=== PATIENT | female | born 1940 | race Caucasian/White ===

== ENCOUNTER 2017-04-12 12:07 | Inpatient (IN) | payer OTHER ==
[~2017-04-12] VITALS: Ht 165.1 cm; Wt 110.0 kg
[~2017-04-12 12:07] MED LIST: ALBUAER2 INH; ALEN70TA2 PO; AMT25 PO; BND25 PO; CHOL100010 PO; HYDR1TAB2 PO; KETO0.024 OP; LEVO50TA60 PO; SERT1TAB68 PO; WARF5TAB7 PO
--- NOTE | 2017-04-12 12:29 | EMERGENCY ROOM VISIT NOTE ---
History Report prepared by Jasmine: Smith Polanco Under the Supervision of: Dr. Dipesh Weeks M.D. First contact with patient: 12:19 Chief Complaint: FALL Stated Complaint: FALL - KNEE AND ELBOW PAIN History of Present Illness The patient is a 77 year old female who presents to the Emergency Room with complaints of a sudden mechanical fall that occurred prior to arrival today. She states that [facility], and tripped over a rug going into the front door. Per the patient's , the patient fell forward and sideways onto her left side. Ever since the fall, the patient says that she has had left leg pain as well as some abrasions on her left arm. Her left elbow has some bruising as well. The patient denies hitting her head or back on the fall. She also denies any loss of consciousness or headaches. She adds that she has had chronic joint pain for years, and gets regular cortisone shots in both hips , knees, and shoulders. The patient also notes that she has had chronic back pain for years. She says that she is on Coumadin for blood clots, which started 25 years ago. The patient says she recently had her INR checked, but is unsure of the result. She states that she has had 3 or 4 blood clots since then. Source of History: patient, spouse/significant other Onset: Prior to arrival today Position: other (global - fall) Quality: other (mechanical) Timing: other (sudden) Associated Symptoms: No LOC, No headache Note: Associated symptoms: Left leg pain with bruising. Left arm abrasions. Denies hitting head or back on fall. Review of Systems See HPI for pertinent positives and negatives. A total of ten systems were reviewed and were otherwise negative. Past Medical & Surgical Medical Problems: (1) Asthma (2) Benign hypertension (3) Bronchitis (4) Hematoma (5) Hypothyroidism (6) Low back pain (7) Pulmonary embolism Family History FH: cancer FATHER Social History Smoking Status: Never Smoker Marital Status: Housing Status: lives with family Occupation Status: retired Current/Historical Medications Scheduled Albuterol Hfa (Ventolin Hfa), 2 PUFFS INH QID Alendronate Sodium (Fosamax), 1 TAB PO WK Amitriptyline Hcl (Elavil), 25 MG PO HS Atenolol (Tenormin), 50 MG PO HS Calcium Carbonate (Tums), 1-2 TABLETS PO PRN Cholecalciferol (Vitamin D3), 1,000 UNITS PO DAILY Fluticasone Prop/Salmeterol (Advair Diskus 250/50 Mcg *), 1 PUFF INH BID Fluticasone Prop/Salmeterol (Advair Diskus 250/50 60 Dose), 1 PUFF INH BID Home O2 Therapy (Oxygen), 2 LITERS NA UD Levothyroxine Sodium (Synthroid), 25 MCG PO DAILY Sertraline Hcl (Zoloft), 100 MG PO DAILY Simvastatin (Zocor), 20 MG PO QPM Sumatriptan Succinate (Imitrex), 100 MG PO PRN Warfarin Sod (Jantoven), 5 MG PO 6XWK Warfarin Sod (Coumadin), 2.5 MG PO DAILY Scheduled PRN Ketotifen Fumarate (Ophth) (Alaway), 1 DROPS OP BID PRN for PRN Allergies Coded Allergies: Aspirin (Verified Allergy, Unknown, UNKNOWN, 04/12/17) Sulfa Antibiotics (Verified Allergy, Unknown, Unknown, 04/12/17) Physical Exam Vital Signs Date Time Temp Pulse Resp B/P (MAP) Pulse Ox O2 Delivery O2 Flow Rate FiO2 04/12/17 16:10 69 18 133/74 97 Room Air 04/12/17 14:29 80 18 98 Room Air 04/12/17 12:10 36.7 106 20 136/82 95 Room Air Physical Exam GENERAL: Awake, alert, well-appearing, in no distress HENT: Normocephalic, atraumatic. Oropharynx unremarkable. EYES: Normal conjunctiva. Sclera non-icteric. NECK: Supple. No nuchal rigidity. FROM. No JVD. RESPIRATORY: Clear to auscultation. CARDIAC: Regular rate, normal rhythm. Extremities warm and well perfused. Pulses equal. ABDOMEN: Soft, non-distended. No tenderness to palpation. No rebound or guarding. No masses. RECTAL: Deferred. MUSCULOSKELETAL: Skin tear to the dorsal aspect of left elbow, otherwise passive /active range of motion intact. Chest examination reveals no tenderness. Lumbar ttp which patient says is unchanged from chronic joint pain. There is no CVA tenderness to palpation. LOWER EXTREMITIES: Left lower extremity has 3+ edema with 25 cm hematoma with tenderness to palpation, but underlying compartments are soft. Distal pulses and motor sensory intact. No pain with passive stretch distally. Range of motion of knee intact, hip range of motion intact, including adduction and abduction. NEURO: Normal sensorium. No sensory or motor deficits noted. SKIN: No rash or jaundice noted. Medical Decision & Procedures ER Provider Diagnostic Interpretation: X-ray: Per my interpretation, radiologist review. LEFT TIBIA AND FIBULA 2 VIEWS CLINICAL HISTORY: Fall with left leg pain. FINDINGS: AP and lateral views of the left tibia and fibula are obtained. No prior studies are available for comparison at the time of dictation. The skeletal structures are osteopenic. No left tibial or fibular fracture is identified. Arthritic change with large osteophytes is seen in the knee. The ankle joint is grossly preserved. Soft tissue edema is present throughout the left lower extremity. Small phleboliths are noted and there is atherosclerotic calcification of the regional arteries. IMPRESSION: Soft tissue swelling with no radiographic evidence of left tibial or fibular fracture. Electronically signed by: Vladislav Curiel M.D. 04/12/2017 1:48 PM Dictated Date/Time: 04/12/2017 1:46 PM LEFT ELBOW 3 VIEWS CLINICAL HISTORY: Fall with left elbow pain and swelling. FINDINGS: 3 views of left elbow are obtained. No prior studies are available for comparison at the time of dictation. The skeletal structures are osteopenic. No distracted fracture is identified. The joint spaces appear maintained. A small joint effusion is identified. The overlying soft tissues are within normal limits. There is atherosclerotic calcification of the regional arteries. IMPRESSION: 1. Osteopenia with no distracted fracture identified. 2. A joint effusion is identified and suggests occult fracture, statistically of the radial head in this age group. Electronically signed by: Vladislav Curiel M.D. 04/12/2017 1:46 PM Dictated Date/Time: 04/12/2017 1:44 PM LEFT KNEE 3 VIEWS HISTORY: 77 years-old Female acute pain and swelling of the left knee status post fall COMPARISON: Left tibia and fibula radiographs of same day TECHNIQUE: Portable AP, internal oblique and crosstable lateral views of the left knee FINDINGS: Severe medial degenerative changes are present with moderate patellofemoral and mild lateral compartment osteoarthritis. The bones are mildly demineralized. There is no acute fracture or dislocation identified. There is chondrocalcinosis about the knee. Small joint effusion is noted. Vascular calcifications are seen. IMPRESSION: 1. Small joint effusion without acute fracture or dislocation. 2. Tricompartmental osteoarthritis, most pronounced within the medial compartment where there is severe disease. 3. Peripheral vascular disease. The above report was generated using voice recognition software. It may contain grammatical, syntax or spelling errors. Electronically signed by: Cesario Terrell M.D. 04/12/2017 5:42 PM Dictated Date/Time: 04/12/2017 5:40 PM Laboratory Results 04/12/17 13:00 Red Blood Count 3.25, Mean Corpuscular Volume 104.9, Mean Corpuscular Hemoglobin 33.5, Mean Corpuscular Hemoglobin Concent 32.0, Mean Platelet Volume 10.0, Neutrophils (%) (Auto) 66.9, Lymphocytes (%) (Auto) 26.5, Monocytes (%) ( Auto) 4.3, Eosinophils (%) (Auto) 1.9, Basophils (%) (Auto) 0.3, Neutrophils # ( Auto) 4.49, Lymphocytes # (Auto) 1.78, Monocytes # (Auto) 0.29, Eosinophils # ( Auto) 0.13, Basophils # (Auto) 0.02 04/12/17 13:00 Test 04/12/17 13:00 04/12/17 14:09 White Blood Count 6.72 K/uL (4.8-10.8) Red Blood Count 3.25 M/uL (4.2-5.4) Hemoglobin 10.9 g/dL (12.0-16.0) Hematocrit 34.1 % (37-47) Mean Corpuscular Volume 104.9 fL (80-100) Mean Corpuscular Hemoglobin 33.5 pg (25-34) Mean Corpuscular Hemoglobin Concent 32.0 g/dl (32-36) Platelet Count 257 K/uL (130-400) Mean Platelet Volume 10.0 fL (7.4-10.4) Neutrophils (%) (Auto) 66.9 % Lymphocytes (%) (Auto) 26.5 % Monocytes (%) (Auto) 4.3 % Eosinophils (%) (Auto) 1.9 % Basophils (%) (Auto) 0.3 % Neutrophils # (Auto) 4.49 K/uL (1.4-6.5) Lymphocytes # (Auto) 1.78 K/uL (1.2-3.4) Monocytes # (Auto) 0.29 K/uL (0.11-0.59) Eosinophils # (Auto) 0.13 K/uL (0-0.5) Basophils # (Auto) 0.02 K/uL (0-0.2) RDW Standard Deviation 50.4 fL (36.4-46.3) RDW Coefficient of Variation 13.1 % (11.5-14.5) Immature Granulocyte % (Auto) 0.1 % Immature Granulocyte # (Auto) 0.01 K/uL (0.00-0.02) Anion Gap 7.0 mmol/L (3-11) Estimated GFR () 56.9 Estimated GFR (Non- 49.1 BUN/Creatinine Ratio 16.2 (10-20) Calcium Level 8.7 mg/dl (8.5-10.1) Prothrombin Time 32.6 SECONDS (9.0-12.0) Prothromb Time International Ratio 2.9 (0.9-1.1) Laboratory results reviewed by me Medications Administered Medications (Trade) Dose Ordered Sig/Satya Route Start Time Stop Time Status Last Admin Dose Admin Acetaminophen (Tylenol Tab) 1,000 mg NOW STAT PO 04/12/17 12:32 04/12/17 12:33 DC 04/12/17 12:50 1,000 MG Oxycodone HCl (Roxicodone Immediate Rel Tab) 5 mg NOW STAT PO 04/12/17 14:32 04/12/17 14:34 DC 04/12/17 14:47 5 MG Phytonadione (Mephyton Tab) 5 mg NOW STAT PO 04/12/17 16:12 04/12/17 16:13 DC 04/12/17 16:23 5 MG ED Course 1220: The patient was evaluated in room A12B. A complete history and physical exam was performed. 1232: Ordered Tylenol Tab 1000 mg PO. 1432: Ordered Roxicodone Immediate Rel Tab 5 mg PO. 1548: I discussed the patient with Dr. Daniel Sanchez [facility]. 1600: I discussed the patient with Dr. Thompson [facility]. 1612: Ordered Mephyton Tab 5 mg PO. 1636: Upon reexamination, the patient was resting. I discussed the test results and treatment plan with her. She expressed understanding and agreement with the treatment plan. The patient will be evaluated for further management. 1651: I discussed the patient with Fawn Neal - she will evaluate the patient for further treatment. Medical Decision I reviewed the patient's past medical history, medications, and the nursing notes as described above. Differential diagnoses: soft tissue hematoma, fracture, dislocation, musculoskeletal strain. 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 On arrival the patient is uncomfortable but in NAD. INR 2.9. During observation patient's left lower leg hematoma, which is predominantly located on proximal lateral calf showed expansion albeit still with soft compartment, strong pulses distally, motor sensory intact and no pain with passive stretch. Nevertheless in the setting of patient's INR concern for risk of compartment syndrome and possibility of need for hematoma release if continued to worsen. Thus, patient given 5mg po vit. K. and plan for admission. I d/w ortho, initially with Dr. Sanchez (since patient's is followed by their group) however they are not on-call for inpatient consultation today. Thus, I d/w Dr. Thompson who evaluated patient at bedside and agreed that no compartment syndrome at this time. Recs for compartment checks during observation. Otherwise, Xray of elbow with small effusion with ?radial head fx. Posterior splint/sling ordered. Xray of Tib-fib with no clear fx but when reviewed by Dr. Thompson, irregularity suspicious for tib-plateau which was also seen on knee films. Knee immoblized by ortho with bulky malone dressing. Case d/w medicine team who will admit patient for further management. Head Trauma GCS Score: 15 Medication Reconcilliation Current Medication List: was personally reviewed by me Blood Pressure Screening Patient's blood pressure: Elevated blood pressure Blood pressure disposition: Elevated BP felt to be situational Consults Time Called: [id number] Consulting Physician: Dr. Daniel [facility] Returned Call: 1546 I discussed the patient with Dr. Daniel [facility]. Additional Consults: Time Called: 1551 Consulted Physician: Dr. Bader [facility] Returned Call: 1600 Additional Comments: I discussed the patient with Dr. Thompson [facility]. Time Called: 1648 Consulted Physician: Fawn Neal Returned Call: 1651 Additional Comments: I discussed the patient with Fawn Neal - she will evaluate the patient for further treatment. Impression Primary Impression: Hematoma Scribe Attestation The scribe's documentation has been prepared under my direction and personally reviewed by me in its entirety. I confirm that the note above accurately reflects all work, treatment, procedures, and medical decision making performed by me. Departure Information Dispostion Being Evaluated By Hospitalist Referrals Mina Garza M.D. (PCP) Patient Instructions My [facility]
[2017-04-12] MEDS ORDERED: ACETAMINOPHEN 500 MG TAB PO STA (12:32)
[2017-04-12] MEDS ORDERED: ADVIN25/60 INH (12:47)
[2017-04-12] MEDS ORDERED: AMIT25TA9 PO (12:47)
[2017-04-12] MEDS ORDERED: LEVO25TA PO (12:47)
[2017-04-12] MEDS ORDERED: VTMD1000 PO (12:47)
[2017-04-12] MEDS ORDERED: VNTHFA/IN INH (12:47)
[2017-04-12] MEDS ORDERED: CMD5 PO (12:51)
[2017-04-12 13:15] LABS: BASO % 0.3 %; BASO ABS # 0.02 K/uL (0-0.2); COMPLETE YES; EOS % 1.9 %; HEMATOCRIT 34.1 % (37-47); IG% 0.1 %; LYMPH % 26.5 %; LYMPH ABS # 1.78 K/uL (1.2-3.4); MEAN CELL VOLUME 104.9 fL (80-100); MEAN CORPUSCULAR HEMOGLOBIN 33.5 pg (25-34); MONO % 4.3 %; NEUT % 66.9 %; PLATELET COUNT 257 K/uL (130-400); RED BLOOD COUNT 3.25 M/uL (4.2-5.4); WHITE BLOOD COUNT 6.72 K/uL (4.8-10.8)
[2017-04-12] MEDS ORDERED: SUMA100T16 PO (13:32)
[2017-04-12 13:41] LABS: POTASSIUM 4.2 mmol/L (3.5-5.1); SODIUM 141 mmol/L (136-145)
[2017-04-12 13:42] LABS: BLOOD UREA NITROGEN 18 mg/dl (7-18); BUN/CREATININE RATIO 16.2 (10-20); CALCIUM 8.7 mg/dl (8.5-10.1); CARBON DIOXIDE 30 mmol/L (21-32); CHLORIDE 104 mmol/L (98-107); GLUCOSE 103 mg/dl (70-99)
--- NOTE | 2017-04-12 13:47 | DIAGNOSTIC IMAGING REPORT ---
LEFT ELBOW 3 VIEWS CLINICAL HISTORY: Fall with left elbow pain and swelling. FINDINGS: 3 views of left elbow are obtained. No prior studies are available for comparison at the time of dictation. The skeletal structures are osteopenic. No distracted fracture is identified. The joint spaces appear maintained. A small joint effusion is identified. The overlying soft tissues are within normal limits. There is atherosclerotic calcification of the regional arteries. IMPRESSION: 1. Osteopenia with no distracted fracture identified. 2. A joint effusion is identified and suggests occult fracture, statistically of the radial head in this age group. Electronically signed by: Vladislav Curiel M.D. 04/12/2017 1:46 PM Dictated Date/Time: 04/12/2017 1:44 PM
--- NOTE | 2017-04-12 13:49 | DIAGNOSTIC IMAGING REPORT ---
LEFT TIBIA AND FIBULA 2 VIEWS CLINICAL HISTORY: Fall with left leg pain. FINDINGS: AP and lateral views of the left tibia and fibula are obtained. No prior studies are available for comparison at the time of dictation. The skeletal structures are osteopenic. No left tibial or fibular fracture is identified. Arthritic change with large osteophytes is seen in the knee. The ankle joint is grossly preserved. Soft tissue edema is present throughout the left lower extremity. Small phleboliths are noted and there is atherosclerotic calcification of the regional arteries. IMPRESSION: Soft tissue swelling with no radiographic evidence of left tibial or fibular fracture. Electronically signed by: Vladislav Curiel M.D. 04/12/2017 1:48 PM Dictated Date/Time: 04/12/2017 1:46 PM
[2017-04-12] MEDS ORDERED: OXYCODONE HCL IR 5 MG TAB (IMMEDIATE RELEASE) PO STA (14:32)
[2017-04-12 14:39] LABS: INR 2.9 (0.9-1.1); PROTHROMBIN TIME (PATIENT) 32.6 SECONDS (9.0-12.0)
[2017-04-12] MEDS ORDERED: SIMV20TA2 PO (15:39)
[2017-04-12] MEDS ORDERED: ADVIN25050 INH (15:39)
[2017-04-12] MEDS ORDERED: PHYTONADIONE 5 MG TAB PO STA (16:12)
[2017-04-12] MEDS ORDERED: CALC500C3 PO (17:19)
[2017-04-12] MEDS ORDERED: OXGN (17:19)
--- NOTE | 2017-04-12 17:43 | DIAGNOSTIC IMAGING REPORT ---
LEFT KNEE 3 VIEWS HISTORY: 77 years-old Female acute pain and swelling of the left knee status post fall COMPARISON: Left tibia and fibula radiographs of same day TECHNIQUE: Portable AP, internal oblique and crosstable lateral views of the left knee FINDINGS: Severe medial degenerative changes are present with moderate patellofemoral and mild lateral compartment osteoarthritis. The bones are mildly demineralized. There is no acute fracture or dislocation identified. There is chondrocalcinosis about the knee. Small joint effusion is noted. Vascular calcifications are seen. IMPRESSION: 1. Small joint effusion without acute fracture or dislocation. 2. Tricompartmental osteoarthritis, most pronounced within the medial compartment where there is severe disease. 3. Peripheral vascular disease. The above report was generated using voice recognition software. It may contain grammatical, syntax or spelling errors. Electronically signed by: Cesario Terrell M.D. 04/12/2017 5:42 PM Dictated Date/Time: 04/12/2017 5:40 PM
--- NOTE | 2017-04-12 17:50 | History and Physical ---
History & Physical Date & Time of Service: Apr 12, 2017 at 17:37 Chief Complaint: Fall - Knee And Elbow Pain Primary Care Physician: Giorgio Salas D.O. History of Present Illness Patient is a 77yo F with a 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 Patient was entering a restaurant when she tripped over a rug, fell forward and landed on her left side. Denies hitting her head or any LOC. Was brought to the ED by her , who witnessed the event. Patient with pain and bruising of the L lower leg, around knee and L elbow. Patient is on long-term anticoagulation and was found to have a supratherapeutic INR of 2.9 in the ED. Was given Vitamin K by mouth. Denies confusion, CP, SOB, abdominal pain, N/V, numbness or tingling in LE. Past Medical/Surgical History Medical Problems: (1) Asthma Status: Chronic (2) Benign hypertension Status: Chronic (3) Bronchitis Status: Chronic (4) Hypothyroidism Status: Chronic (5) Low back pain Status: Chronic (6) Pulmonary embolism Status: Chronic Family History Diabetes mellitus MOTHER FH: cancer FATHER FH: diabetes mellitus Social History Smoking Status: Never Smoker Marital Status: Immunizations History of Influenza Vaccine: No Influenza Vaccine Date: Jun 03, 2009 History of Tetanus Vaccine?: unknown History of Pneumococcal: Yes Pneumococcal Date: May 17, 2005 History of Hepatitis B Vaccine: No Multi-Drug Resistant Organisms History of MDRO: No Allergies Coded Allergies: Aspirin (Verified Allergy, Unknown, UNKNOWN, 04/12/17) Sulfa Drugs (Verified Allergy, Unknown, UNKNOWN, 04/12/17) Home Medications Scheduled Albuterol Hfa (Ventolin Hfa), 2 PUFFS INH QID Alendronate Sodium (Fosamax), 1 TAB PO WK Amitriptyline Hcl (Elavil), 25 MG PO HS Atenolol (Tenormin), 50 MG PO HS Calcium Carbonate (Tums), 1-2 TABLETS PO PRN Cholecalciferol (Vitamin D3), 1,000 UNITS PO DAILY Fluticasone Prop/Salmeterol (Advair Diskus 250/50 Mcg *), 1 PUFF INH BID Fluticasone Prop/Salmeterol (Advair Diskus 250/50 60 Dose), 1 PUFF INH BID Home O2 Therapy (Oxygen), 2 LITERS NA UD Levothyroxine Sodium (Synthroid), 25 MCG PO DAILY Sertraline Hcl (Zoloft), 100 MG PO DAILY Simvastatin (Zocor), 20 MG PO QPM Sumatriptan Succinate (Imitrex), 100 MG PO PRN Warfarin Sod (Jantoven), 5 MG PO 6XWK Warfarin Sod (Coumadin), 2.5 MG PO DAILY Scheduled PRN Ketotifen Fumarate (Ophth) (Alaway), 1 DROPS OP BID PRN for PRN Review of Systems Ten systems reviewed and negative except as noted in the HPI. Constitutional: No fever Eyes: No worsening of vision ENT: No hearing loss Respiratory: No shortness of breath, No dyspnea on exertion, No dyspnea at rest Cardiovascular: No chest pain Abdomen: No pain Musculoskeletal: + swelling (swelling, injury to left knee) Genitourinary - Female: No dysuria Neurologic: No paralysis Psychiatric: No substance abuse Endocrine: No fatigue Physical Exam Vital Signs Date Time Temp Pulse Resp B/P (MAP) Pulse Ox O2 Delivery O2 Flow Rate FiO2 04/12/17 16:10 69 18 133/74 97 Room Air 04/12/17 14:29 80 18 98 Room Air 04/12/17 12:10 36.7 106 20 136/82 95 Room Air General Appearance: no apparent distress, + obese Head: normocephalic, atraumatic Eyes: normal inspection, EOMI, sclerae normal ENT: normal ENT inspection, hearing grossly normal, pharynx normal Neck: supple, no JVD, trachea midline Respiratory/Chest: chest non-tender, lungs clear, normal breath sounds, no respiratory distress, no accessory muscle use Cardiovascular: regular rate, rhythm, no edema, no JVD Abdomen/GI: non tender, soft Back: normal inspection, no muscle spasm Extremities/Musculoskelatal: normal capillary refill, no pedal edema, + pertinent finding (orthopedics placed left leg in splint) Neurologic/Psych: alert, oriented x 3 Diagnostics Laboratory Results Results Past 24 Hours Test 04/12/17 13:00 04/12/17 14:09 Range/Units White Blood Count 6.72 4.8-10.8 K/uL Red Blood Count 3.25 4.2-5.4 M/uL Hemoglobin 10.9 12.0-16.0 g/dL Hematocrit 34.1 37-47 % Mean Corpuscular Volume 104.9 80-100 fL Mean Corpuscular Hemoglobin 33.5 25-34 pg Mean Corpuscular Hemoglobin Concent 32.0 32-36 g/dl Platelet Count 257 130-400 K/uL Mean Platelet Volume 10.0 7.4-10.4 fL Neutrophils (%) (Auto) 66.9 % Lymphocytes (%) (Auto) 26.5 % Monocytes (%) (Auto) 4.3 % Eosinophils (%) (Auto) 1.9 % Basophils (%) (Auto) 0.3 % Neutrophils # (Auto) 4.49 1.4-6.5 K/uL Lymphocytes # (Auto) 1.78 1.2-3.4 K/uL Monocytes # (Auto) 0.29 0.11-0.59 K/uL Eosinophils # (Auto) 0.13 0-0.5 K/uL Basophils # (Auto) 0.02 0-0.2 K/uL RDW Standard Deviation 50.4 36.4-46.3 fL RDW Coefficient of Variation 13.1 11.5-14.5 % Immature Granulocyte % (Auto) 0.1 % Immature Granulocyte # (Auto) 0.01 0.00-0.02 K/uL Sodium Level 141 136-145 mmol/L Potassium Level 4.2 3.5-5.1 mmol/L Chloride Level 104 98-107 mmol/L Carbon Dioxide Level 30 21-32 mmol/L Anion Gap 7.0 3-11 mmol/L Blood Urea Nitrogen 18 7-18 mg/dl Creatinine 1.10 0.60-1.20 mg/dl Estimated GFR () 56.9 Estimated GFR (Non- 49.1 BUN/Creatinine Ratio 16.2 10-20 Random Glucose 103 70-99 mg/dl Calcium Level 8.7 8.5-10.1 mg/dl Prothrombin Time 32.6 9.0-12.0 SECONDS Prothromb Time International Ratio 2.9 0.9-1.1 Diagnostic Radiology Tibia fibula XR: IMPRESSION: Soft tissue swelling with no radiographic evidence of left tibial or fibular fracture. L Elbow XR: IMPRESSION: 1. Osteopenia with no distracted fracture identified. 2. A joint effusion is identified and suggests occult fracture, statistically of the radial head in this age group. Impression Assessment and Plan Patient is a 77yo F with a 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 L lower extremity hematoma: -S/p mechanical fall -Tibia fibula XR: Soft tissue swelling with no radiographic evidence of left tibial or fibular fracture -Ortho following; recs appreciated -Observation for compression syndrome Attending Physician Addendum Dr. Alba Patient is s/p mechanical fall. Imaging studies: Tibia fibula XR: Soft tissue swelling with no radiographic evidence of left tibial or fibular fracture. L Elbow XR: joint effusion is identified and suggests occult fracture the radial head in this age group. When examined at bedside with LORETTA Sanchez, orthopedic service was present placing left splint over knee. There is concern for hematoma given history of coumadin use and patient had been given vitamin K in the ED. Hold warfarin for now. Hospitalist medical team will place patient on observation to monitoring of injury and whether patient will develop excessive bleeding into knee. Continue to trend H/H, INR. Pain control medications ordered and antiemetics if needed. Unless otherwise contraindicated will continue patient on home medications of: atenolol, amitriptyline, sertraline, levothyroxine, simvastatin. Continue to follow with orthopedic consult Level of Care Med/Surg Resuscitation Status FULL RESUSCITATION VTE Prophylaxis VTE Risk Assessment Done? Y/N: Yes Risk Level: High Given or contraindicated: Warfarin (Coumadin)
[2017-04-12] MEDS ORDERED: IV FLUIDS COMPLETED PRN (18:00)
[2017-04-12] MEDS ORDERED: ONDANSETRON INJ 2 MG/ML 2 ML VIAL IV PRN (18:00)
[2017-04-12] MEDS ORDERED: ATEN50TA8 PO (18:38)
--- NOTE | 2017-04-12 19:38 | Medical Consult ---
Consultation Note Date of Service Apr 12, 2017. Consultation Note CHIEF COMPLAINT: Left leg swelling. HISTORY OF PRESENT ILLNESS: Mikala is a pleasant 77-year-old female, who fell earlier today at [employer] when she tripped over a rug landing on her left side. She denies any loss of consciousness. She is brought to the emergency room by her who had witnessed the event. She started having pain improved using of the left lower leg and around her knee. She also had a skin tear of the left elbow. 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 She denies any numbness or tingling. She was able to place some weight on her left lower leg. I was consult did due to the large hematoma. She denies any other injuries. Past medical history: Asthma, hypothyroidism, hypertension, low back pain, DVT/ PE, bronchitis. past surgical history: Hysterectomy, cholecystectomy, right trochanteric bursa excision. MEDICATIONS: Albuterol Hfa (Ventolin Hfa), 2 PUFFS INH QID Alendronate Sodium (Fosamax), 1 TAB PO WK Amitriptyline Hcl (Elavil), 25 MG PO HS Atenolol (Tenormin), 50 MG PO HS Calcium Carbonate (Tums), 1-2 TABLETS PO PRN Cholecalciferol (Vitamin D3), 1,000 UNITS PO DAILY Fluticasone Prop/Salmeterol (Advair Diskus 250/50 Mcg *), 1 PUFF INH BID Fluticasone Prop/Salmeterol (Advair Diskus 250/50 60 Dose), 1 PUFF INH BID Home O2 Therapy (Oxygen), 2 LITERS NA UD Levothyroxine Sodium (Synthroid), 25 MCG PO DAILY Sertraline Hcl (Zoloft), 100 MG PO DAILY Simvastatin (Zocor), 20 MG PO QPM Sumatriptan Succinate (Imitrex), 100 MG PO PRN Warfarin Sod (Jantoven), 5 MG PO 6XWK Warfarin Sod (Coumadin), 2.5 MG PO DAILY Scheduled PRN Ketotifen Fumarate (Ophth) (Alaway), 1 DROPS OP BID PRN for PRN. ALLERGIES: Aspirin and sulfa drugs. FAMILY HISTORY: Mother with diabetes, father with cancer and diabetes. SOCIAL HISTORY: Denies smoking and admits to rare alcohol use. She is and lives with her . REVIEW OF SYSTEMS: He was feeling in her usual state of health. A 10-point review of systems is noted in the shared ER intake forms. PHYSICAL EXAM: The patient is in no acute distress. She is resting comfortably on her hospital cart. Temperature 36.7, pulse 69, respiratory rate 18, blood pressure 133/74, pulse ox 97% on room air. Focusing on her left lower extremity, she has 2+ DP pulse, sensation light touch is intact distally, her strength in her gastrocsoleus, tibialis anterior, EHL is 5/5. She does have significant swelling about the knee and bruising down to the mid calf. Her calf is soft and nontender. She does have some tenderness palpation about the medial aspect of her knee. She is able to actively perform range of motion 0-110 . RADIOGRAPHS: AP and lateral of the left tib-fib, was concerning for a fracture about the medial tibial plateau that was nondisplaced, otherwise there is just significant soft tissue swelling from the knee to the mid shaft. AP, lateral, and one oblique view of the knee was performed and did show a very small nondisplaced medial rim fracture of the tibial plateau. IMPRESSION: 1) Left knee medial tibial plateau rim fracture, nondisplaced, initial visit. 2) left leg swelling/large hematoma secondarily to being anticoagulated. PLAN: After a lengthy discussion with the patient today regarding my above clinical findings, as well as reviewing her radiographs, she will be treated conservatively and was placed in a bulky Grimes dressing and knee immobilizer. She will be allowed to be weightbearing as tolerated. She will ice and elevate. We will continue to monitor her hematoma. She will have neurovascular checks every 2 hours. She will be admitted to the medicine service for observation. The patient understood all my instructions and explanation; all their questions were satisfactorily addressed.
[2017-04-12 19:45] VITALS: Ht 165.1 cm; Wt 110.0 kg
[2017-04-12 19:48] VITALS: BP 138/69; PULSE 95; TEMP 36.7; O2SAT 97
[2017-04-12 20:15] VITALS: BP 132/70; PULSE 97; TEMP 36.6; O2SAT 96
--- NOTE | 2017-04-12 21:26 | DIAGNOSTIC IMAGING REPORT ---
HEAD WITHOUT CONTRAST (CT) CLINICAL HISTORY: 77 years-old Female with RECENT FALL /HEAD INJURY /DIZZY SPELL . TECHNIQUE: Multiple axial CT images of the head were obtained without contrast. A dose lowering technique was utilized adhering to the principles of ALARA. CT DOSE: 655.73 mGy.cm COMPARISON: CT head 07/05/2013. FINDINGS: No acute intracranial hemorrhage, midline shift, mass, large territorial ischemia or abnormal extra-axial collection. There is mild cerebral atrophy. Patchy areas of white matter low-attenuation are seen within the periventricular regions suggesting chronic microvascular ischemic changes. Vascular calcifications are seen at the skull base. The calvarium is intact. Small mastoid effusions are present bilaterally. Bilateral lou bullosa noted. Soft tissues are unremarkable. Prior bilateral cataract repair. IMPRESSION: 1. No acute intracranial abnormality. 2. Atrophy with chronic microvascular ischemic changes. 3. Small bilateral mastoid effusions. The above report was generated using voice recognition software. It may contain grammatical, syntax or spelling errors. Electronically signed by: Cesario Terrell M.D. 04/12/2017 9:24 PM Dictated Date/Time: 04/12/2017 9:16 PM
[2017-04-12] MEDS: FLUTICASONE/SALMETEROL 250/50 (ADVAIR) 14 PUFF/1 INHALER INH SCH (22:03)
[2017-04-12] MEDS: AMITRIPTYLINE HCL 25 MG TAB PO SCH (22:04)
[2017-04-12] MEDS: ALBUTEROL HFA 8 GM INHALER INH SCH (22:04)
[2017-04-12] MEDS: SIMVASTATIN 20 MG TAB PO SCH (22:06)
[2017-04-12 23:05] VITALS: BP 120/67; PULSE 79; TEMP 36.9; O2SAT 93
[2017-04-12] MEDS: HYDROmorphone INJ 0.5 MG/0.5 ML SYR IV PRN (23:27)
[2017-04-13] VITALS (9 sets, daily range): BP systolic 108–147; BP diastolic 66–84; PULSE 74–98; TEMP 36.7–37.3; O2SAT 93–97
[2017-04-13] MEDS: LEVOTHYROXINE 25 MCG TAB PO SCH (05:32)
[2017-04-13 06:53] LABS: BASO % 0.3 %; BASO ABS # 0.02 K/uL (0-0.2); EOS % 1.2 %; HEMATOCRIT 25.5 % (37-47); IG% 0.1 %; LYMPH % 30.7 %; LYMPH ABS # 2.08 K/uL (1.2-3.4); MEAN CELL VOLUME 102.8 fL (80-100); MEAN CORPUSCULAR HEMOGLOBIN 34.3 pg (25-34); MEAN CORPUSCULAR HGB CONC 33.3 g/dl (32-36); MEAN PLATELET VOLUME 10.2 fL (7.4-10.4); MONO % 6.6 %; NEUT % 61.1 %; PLATELET COUNT 212 K/uL (130-400); RED BLOOD COUNT 2.48 M/uL (4.2-5.4); WHITE BLOOD COUNT 6.78 K/uL (4.8-10.8)
[2017-04-13 07:29] LABS: INR 1.8 (0.9-1.1); PARTIAL THROMBOPLASTIN RATIO 1.1; PROTHROMBIN TIME (PATIENT) 20.1 SECONDS (9.0-12.0)
[2017-04-13 07:30] LABS: BUN/CREATININE RATIO 18.7 (10-20); CALCIUM 8.3 mg/dl (8.5-10.1); CREATININE 1.4 mg/dl (0.60-1.20); MAGNESIUM 2.1 mg/dl (1.8-2.4); POTASSIUM 4.4 mmol/L (3.5-5.1)
[2017-04-13 07:34] LABS: COMPLETE YES
[2017-04-13] MEDS ORDERED: PNEUMOCOCCAL POLYSACCHARIDES 25 MCG/0.5 ML VIAL/SYR IM. ONE (08:00)
[2017-04-13] MEDS ORDERED: PNEUMOCOCCAL ADMINISTRATION CHARGE ONE (08:00)
[2017-04-13] MEDS ORDERED: SERTRALINE HCL 100 MG TAB PO SCH (09:00)
[2017-04-13] MEDS: FLUTICASONE/SALMETEROL 250/50 (ADVAIR) 14 PUFF/1 INHALER INH SCH ×2 (09:13→21:21)
[2017-04-13] MEDS: CHOLECALCIFEROL 1000 INTER.UNIT TAB PO SCH (09:14)
[2017-04-13] MEDS: ALBUTEROL HFA 8 GM INHALER INH SCH ×3 (09:15→17:05)
[2017-04-13] MEDS: ACETAMINOPHEN 325 MG TAB PO PRN ×2 (09:58→17:05)
--- NOTE | 2017-04-13 10:42 | Orthopedic Progress Note ---
Orthopedic Progress Note Date of Service Apr 13, 2017. Subjective Post OP Day: Reports: feeling well, Denies: complaints, chest pain, SOB, nausea / vomiting, light headedness, calf pain Additional Notes: has intermittent discomfort at the knee, but it is mild. Denies estrada and elbow pain., No numbness/tingling to Left leg. Objective N/V intact, splint C/D/I, capillary refill less than 2 sec., A&O x3, toes mobile , CMS intact pulses 2+ left leg DB eval of LLE: Dressing and Immobilizer in place. 2+ DP pulse, sensation to LT intact. Wiggling toes and ankle up and down. Calf soft and non-tender. of LUE: Dressing C/D/I. FROM elbow and forearm. Date Time Temp Pulse Resp B/P (MAP) Pulse Ox O2 Delivery O2 Flow Rate FiO2 04/13/17 07:48 79 124/67 (86) 86 139/77 (97) 98 108/66 (80) 04/13/17 07:45 Room Air 04/13/17 07:24 37.1 74 18 132/70 (90) 97 Room Air 04/12/17 23:30 Room Air 04/12/17 23:05 36.9 79 16 120/67 (84) 93 Room Air 04/12/17 20:15 36.6 97 16 132/70 (90) 96 Room Air 04/12/17 19:48 36.7 95 18 138/69 (92) 97 Room Air 04/12/17 19:45 Room Air 04/12/17 17:57 76 18 134/65 97 Room Air 04/12/17 16:10 69 18 133/74 97 Room Air 04/12/17 14:29 80 18 98 Room Air 04/12/17 12:10 36.7 106 20 136/82 95 Room Air Laboratory Results 24 Hours: Test 04/12/17 13:00 04/12/17 14:09 04/13/17 05:25 White Blood Count 6.72 K/uL 6.78 K/uL Red Blood Count 3.25 M/uL 2.48 M/uL Hemoglobin 10.9 g/dL 8.5 g/dL Hematocrit 34.1 % 25.5 % Mean Corpuscular Volume 104.9 fL 102.8 fL Mean Corpuscular Hemoglobin 33.5 pg 34.3 pg Mean Corpuscular Hemoglobin Concent 32.0 g/dl 33.3 g/dl Platelet Count 257 K/uL 212 K/uL Mean Platelet Volume 10.0 fL 10.2 fL Neutrophils (%) (Auto) 66.9 % 61.1 % Lymphocytes (%) (Auto) 26.5 % 30.7 % Monocytes (%) (Auto) 4.3 % 6.6 % Eosinophils (%) (Auto) 1.9 % 1.2 % Basophils (%) (Auto) 0.3 % 0.3 % Neutrophils # (Auto) 4.49 K/uL 4.14 K/uL Lymphocytes # (Auto) 1.78 K/uL 2.08 K/uL Monocytes # (Auto) 0.29 K/uL 0.45 K/uL Eosinophils # (Auto) 0.13 K/uL 0.08 K/uL Basophils # (Auto) 0.02 K/uL 0.02 K/uL Prothromb Time International Ratio 2.9 1.8 Prothrombin Time 32.6 SECONDS 20.1 SECONDS Assessment & Plan Assessment: HD #1, Left knee medial rim tibial plateau fracture, non-displaced, lower leg hematoma, no evidence of compartment syndrome. Left elbow abrasion/skin tear unlikely a fracture. Plan: Continue immobilizer when OOB, may remove for ROM exercises in bed/chair Continue with ice/elevation May be ambulatory with walker, WBAT with immobilizer No splint needed for L elbow, change dressing as needed for soiling. Will continue to follow while in hospital, but f/u in the office 1 week after discharge. Call [phone] for appointment. IDr. Thompson saw and examined the patient and agree with the above findings and plan of care.
[2017-04-13] MEDS ORDERED: DULO60CA44 PO (17:45)
--- NOTE | 2017-04-13 17:58 | Progress Note ---
Medicine Progress Note Date & Time of Visit: Apr 13, 2017 at 12:59. Subjective tolerating PO states that pain is controlled reports chronic lightheadedness especially with sitting to standing at home lightheadedness on the floor overnight last night and she was again orthostatic with attempting to stand today. Hb from 11--> 8.5 overnight no compartment syndrome per Ortho eval today. Objective Last 8 Hrs Date Time Temp Pulse Resp B/P (MAP) Pulse Ox O2 Delivery O2 Flow Rate FiO2 04/13/17 07:48 79 124/67 (86) 86 139/77 (97) 98 108/66 (80) 04/13/17 07:45 Room Air 04/13/17 07:24 37.1 74 18 132/70 (90) 97 Room Air Physical Exam: GEN: obese, in no acute distress, alert and appropriate HEENT: NC/AT, normal sclerae, MMM CARDIO: reg rate, S1/2 heard without m/g/r LUNGS: CTA bilaterally, no crackles, rales or wheezes, good diaphragmatic excursion ABD: soft, non-tender, non-distended, no rebound or guarding, +BS EXTREMITY: RP and DP palpable 2+ bilat, LLE in extensive, large knee immobilizer in place. NEURO: CN 2-12 grossly intact, sensation intact throughout SKIN: warm and dry Laboratory Results: 04/13/17 05:25 Red Blood Count 2.48, Mean Corpuscular Volume 102.8, Mean Corpuscular Hemoglobin 34.3, Mean Corpuscular Hemoglobin Concent 33.3, Mean Platelet Volume 10.2, Neutrophils (%) (Auto) 61.1, Lymphocytes (%) (Auto) 30.7, Monocytes (%) ( Auto) 6.6, Eosinophils (%) (Auto) 1.2, Basophils (%) (Auto) 0.3, Neutrophils # ( Auto) 4.14, Lymphocytes # (Auto) 2.08, Monocytes # (Auto) 0.45, Eosinophils # ( Auto) 0.08, Basophils # (Auto) 0.02 04/13/17 05:25 Test 04/13/17 05:25 White Blood Count 6.78 K/uL (4.8-10.8) Red Blood Count 2.48 M/uL (4.2-5.4) Hemoglobin 8.5 g/dL (12.0-16.0) Hematocrit 25.5 % (37-47) Mean Corpuscular Volume 102.8 fL (80-100) Mean Corpuscular Hemoglobin 34.3 pg (25-34) Mean Corpuscular Hemoglobin Concent 33.3 g/dl (32-36) Platelet Count 212 K/uL (130-400) Mean Platelet Volume 10.2 fL (7.4-10.4) Neutrophils (%) (Auto) 61.1 % Lymphocytes (%) (Auto) 30.7 % Monocytes (%) (Auto) 6.6 % Eosinophils (%) (Auto) 1.2 % Basophils (%) (Auto) 0.3 % Neutrophils # (Auto) 4.14 K/uL (1.4-6.5) Lymphocytes # (Auto) 2.08 K/uL (1.2-3.4) Monocytes # (Auto) 0.45 K/uL (0.11-0.59) Eosinophils # (Auto) 0.08 K/uL (0-0.5) Basophils # (Auto) 0.02 K/uL (0-0.2) RDW Standard Deviation 50.4 fL (36.4-46.3) RDW Coefficient of Variation 13.4 % (11.5-14.5) Immature Granulocyte % (Auto) 0.1 % Immature Granulocyte # (Auto) 0.01 K/uL (0.00-0.02) Red Blood Cell Morphology Unremarkable Prothrombin Time 20.1 SECONDS (9.0-12.0) Prothromb Time International Ratio 1.8 (0.9-1.1) Activated Partial Thromboplast Time 28.3 SECONDS (21.0-31.0) Partial Thromboplastin Ratio 1.1 Anion Gap 7.0 mmol/L (3-11) Est Creatinine Clear Calc Drug Dose 42.9 ml/min Estimated GFR () 42.5 Estimated GFR (Non- 36.7 BUN/Creatinine Ratio 18.7 (10-20) Calcium Level 8.3 mg/dl (8.5-10.1) Magnesium Level 2.1 mg/dl (1.8-2.4) Total Bilirubin 0.7 mg/dl (0.2-1) Aspartate Amino Transf (AST/SGOT) 15 U/L (15-37) Alanine Aminotransferase (ALT/SGPT) 15 U/L (12-78) Alkaline Phosphatase 40 U/L (45-117) Total Protein 5.1 gm/dl (6.4-8.2) Albumin 2.5 gm/dl (3.4-5.0) Globulin 2.6 gm/dl (2.5-4.0) Albumin/Globulin Ratio 1.0 (0.9-2) Last 24 Hours Test 04/12/17 13:00 04/12/17 14:09 04/13/17 05:25 White Blood Count 6.72 K/uL 6.78 K/uL Red Blood Count 3.25 M/uL 2.48 M/uL Hemoglobin 10.9 g/dL 8.5 g/dL Hematocrit 34.1 % 25.5 % Mean Corpuscular Volume 104.9 fL 102.8 fL Mean Corpuscular Hemoglobin 33.5 pg 34.3 pg Mean Corpuscular Hemoglobin Concent 32.0 g/dl 33.3 g/dl Platelet Count 257 K/uL 212 K/uL Mean Platelet Volume 10.0 fL 10.2 fL Neutrophils (%) (Auto) 66.9 % 61.1 % Lymphocytes (%) (Auto) 26.5 % 30.7 % Monocytes (%) (Auto) 4.3 % 6.6 % Eosinophils (%) (Auto) 1.9 % 1.2 % Basophils (%) (Auto) 0.3 % 0.3 % Neutrophils # (Auto) 4.49 K/uL 4.14 K/uL Lymphocytes # (Auto) 1.78 K/uL 2.08 K/uL Monocytes # (Auto) 0.29 K/uL 0.45 K/uL Eosinophils # (Auto) 0.13 K/uL 0.08 K/uL Basophils # (Auto) 0.02 K/uL 0.02 K/uL RDW Standard Deviation 50.4 fL 50.4 fL RDW Coefficient of Variation 13.1 % 13.4 % Immature Granulocyte % (Auto) 0.1 % 0.1 % Immature Granulocyte # (Auto) 0.01 K/uL 0.01 K/uL Sodium Level 141 mmol/L 139 mmol/L Potassium Level 4.2 mmol/L 4.4 mmol/L Chloride Level 104 mmol/L 104 mmol/L Carbon Dioxide Level 30 mmol/L 28 mmol/L Anion Gap 7.0 mmol/L 7.0 mmol/L Blood Urea Nitrogen 18 mg/dl 26 mg/dl Creatinine 1.10 mg/dl 1.40 mg/dl Estimated GFR () 56.9 42.5 Estimated GFR (Non- 49.1 36.7 BUN/Creatinine Ratio 16.2 18.7 Random Glucose 103 mg/dl 86 mg/dl Calcium Level 8.7 mg/dl 8.3 mg/dl Prothrombin Time 32.6 SECONDS 20.1 SECONDS Prothromb Time International Ratio 2.9 1.8 Red Blood Cell Morphology Unremarkable Activated Partial Thromboplast Time 28.3 SECONDS Partial Thromboplastin Ratio 1.1 Est Creatinine Clear Calc Drug Dose 42.9 ml/min Magnesium Level 2.1 mg/dl Total Bilirubin 0.7 mg/dl Aspartate Amino Transf (AST/SGOT) 15 U/L Alanine Aminotransferase (ALT/SGPT) 15 U/L Alkaline Phosphatase 40 U/L Total Protein 5.1 gm/dl Albumin 2.5 gm/dl Globulin 2.6 gm/dl Albumin/Globulin Ratio 1.0 Assessment & Plan 77 yo F therapeutic on coumadin with LLE pain after tripping and falling with subsequent hematoma. She remembers the fall and reports that she had some lightheadedness last night and has had issues with dizziness with changing position to standing that has persisted for months. She also reports fleeting chest pains that last for seconds at a time that have been chronic for her. 1. LLE hematoma s/p trauma-per ortho, no compartment syndrome is present and she is NVI. She has a large knee immobilizer on her R leg which is being managed by ortho. No evidence of acute fracture. Coumadin is being held and she has an INR 1.8 this morning after 5mg vitamin K yesterday. 2. Anemia-likely related to large hematoma on coumadin. May be contributing to lightheadedness 3. Orthostatic hypotension-she has had this going on chronically in the last year, likely exacerbated from acute blood loss anemia. Slight XIN present on labwork today, also. Cont orthostatics qshift and give IVF today. Repeat clinical assessment in am. Likely related to acute hemorrhage, however, if she doesn't cont to improve clinically will continue with workup including screening for causes of autonomic neuropathy (diabetes, B12 def, syphilis, Lyme , HIV) and/or cont with IVF or blood products if needed acknowledging that autonomic dysfunction may also be related to aging, of course. Medications were reviewed with atenolol being the most likely contributing offender, however , she has been taking this for a long time. Additionally, may need to pursue more aggressive cardiac workup to include investigation for arrhythmia prompting symptoms and/or echo to rule out structural heart disease. Will follow in am after IVF this evening. 4. Asthma-stable, no wheezing. Changed albuterol from scheduled to PRN. 5. L elbow trauma-per Orthom no fracture likely present and no immobilization or other workup/treatment required at this time. 6. Depression-thought she was on sertraline 100 PO daily coming in, however, records reflect that she is actually taking Cymbalta 60mg PO daily. This was changed and will discuss with her the possibility of weaning this off as it may be contributing to her dizziness. 7. Obesity 8. XIN-likely 2/2 prerenal azotemia 2/2 acute blood loss. Giving IVF for additional volume now, encouraged PO intake and repeat labwork in am. DVT proph: contraindicated in setting of bleed, coumadin held FULL CODE Dispo-uncertain at this time. Want to ensure PT/OT evaluate her and would like to see H/H stabilize and creatinine improve prior to discharge. DO Jaison [facility] Hospitalist Consultants: Ortho Current Inpatient Medications: Current Inpatient Medications Medications (Trade) Dose Ordered Sig/Satya Route Start Time Stop Time Status Last Admin Dose Admin Miscellaneous (Iv Fluids Completed) 1 ea PRN PRN N/A 04/12/17 18:00 04/12/18 17:59 Acetaminophen (Tylenol Tab) 650 mg Q4H PRN PO 04/12/17 18:00 05/12/17 17:59 04/13/17 09:58 650 MG Ondansetron HCl (Zofran Inj) 4 mg Q6H PRN IV 04/12/17 18:00 05/12/17 17:59 Albuterol (Ventolin Hfa Inhaler) 2 puffs QID INH 04/12/17 21:00 05/12/17 20:59 04/13/17 09:15 2 PUFFS Amitriptyline HCl (Elavil Tab) 25 mg HS PO 04/12/17 21:00 05/12/17 20:59 04/12/17 22:04 25 MG Atenolol (Tenormin Tab) 50 mg HS PO 04/12/17 21:00 05/12/17 20:59 04/12/17 22:05 50 MG Salmeterol Xinafoate/ Fluticasone (Advair Diskus 250/50 Inh) 1 puff BID INH 04/12/17 21:00 05/12/17 20:59 04/13/17 09:13 1 PUFF Levothyroxine Sodium (Synthroid Tab) 25 mcg DAILYBB PO 04/13/17 06:00 05/13/17 05:59 04/13/17 05:32 25 MCG Sertraline HCl (Zoloft Tab) 100 mg DAILY PO 04/13/17 09:00 05/13/17 08:59 04/13/17 09:14 100 MG Simvastatin (Zocor Tab) 20 mg QPM PO 04/12/17 21:00 05/12/17 20:59 04/12/17 22:06 20 MG Cholecalciferol (Vitamin D Tab) 1,000 inter.unit DAILY PO 04/13/17 09:00 05/13/17 08:59 04/13/17 09:14 1,000 INTER.UNIT Hydromorphone HCl (Dilaudid Inj) 0.5 mg Q20M PRN IV 04/12/17 18:30 04/26/17 18:29 04/12/17 23:27 0.5 MG
[2017-04-13] MEDS ORDERED: SODIUM CHLORIDE 0.9% 1000ML 1,000 ML IV SCH (19:15)
[2017-04-13] MEDS ORDERED: ALBUTEROL HFA 8 GM INHALER INH PRN (21:00)
[2017-04-13] MEDS: AMITRIPTYLINE HCL 25 MG TAB PO SCH (21:23)
[2017-04-13] MEDS: SIMVASTATIN 20 MG TAB PO SCH (21:23)
[2017-04-14] VITALS (18 sets, daily range): BP systolic 116–160; BP diastolic 53–97; PULSE 74–96; TEMP 36.6–36.9; O2SAT 92–98
[2017-04-14] MEDS: ACETAMINOPHEN 325 MG TAB PO PRN (04:09)
[2017-04-14] MEDS: LEVOTHYROXINE 25 MCG TAB PO SCH (05:42)
[2017-04-14 05:55] LABS: HEMATOCRIT 21.7 % (37-47); MEAN CELL VOLUME 102.8 fL (80-100); MEAN CORPUSCULAR HEMOGLOBIN 33.6 pg (25-34); MEAN CORPUSCULAR HGB CONC 32.7 g/dl (32-36); MEAN PLATELET VOLUME 9.6 fL (7.4-10.4); PLATELET COUNT 185 K/uL (130-400); RED BLOOD COUNT 2.11 M/uL (4.2-5.4); WHITE BLOOD COUNT 6.54 K/uL (4.8-10.8)
[2017-04-14 06:02] LABS: INR 1.2 (0.9-1.1); PROTHROMBIN TIME (PATIENT) 12.6 SECONDS (9.0-12.0)
[2017-04-14 06:32] LABS: BUN/CREATININE RATIO 19.3 (10-20); CREATININE 1.3 mg/dl (0.60-1.20); MAGNESIUM 2.1 mg/dl (1.8-2.4)
[2017-04-14] MEDS: SODIUM CHLORIDE 0.9% 1000ML 1,000 ML IV SCH (07:22)
[2017-04-14] MEDS ORDERED: ACETAMINOPHEN 325 MG TAB PO ONE (08:00)
[2017-04-14] MEDS: CHOLECALCIFEROL 1000 INTER.UNIT TAB PO SCH (08:24)
[2017-04-14] MEDS: FLUTICASONE/SALMETEROL 250/50 (ADVAIR) 14 PUFF/1 INHALER INH SCH ×2 (08:24→21:09)
[2017-04-14] MEDS: DULOXETINE HCL 60 MG CAP PO SCH (08:25)
--- NOTE | 2017-04-14 08:58 | Orthopedic Progress Note ---
Orthopedic Progress Note Date of Service Apr 14, 2017. Subjective Post OP Day: HD # 2 Denies: complaints Additional Notes: The patient would like to know, "When can I go home?" Objective calves soft nontender, N/V intact, A&O x3 LLE: + ttp medial joint line (decreased from admission). ROM 0-85 degrees. Stable Dada, Varus and valgus at 0 & 30 degrees. 2+ DP pulse. LUE: FROM. Date Time Temp Pulse Resp B/P (MAP) Pulse Ox O2 Delivery O2 Flow Rate FiO2 04/14/17 08:41 149/75 (99) 128/97 (107) 128/78 (95) 04/14/17 07:25 Room Air 04/14/17 07:09 36.7 74 18 156/80 (105) 94 Room Air 04/14/17 05:50 80 152/77 (102) 79 155/77 (103) 96 136/86 (103) 04/13/17 23:56 Room Air 04/13/17 22:52 36.7 84 18 132/75 (94) 93 Room Air 04/13/17 21:16 84 131/81 (98) 96 Room Air 04/13/17 18:10 80 04/13/17 18:10 89 04/13/17 18:10 84 04/13/17 16:00 Room Air 04/13/17 15:06 145/84 (104) 04/13/17 15:01 127/78 (94) 04/13/17 15:00 37.3 85 17 115/73 (87) 95 Room Air 04/13/17 14:38 83 96 Laboratory Results 24 Hours: Test 04/14/17 05:30 Hematocrit 21.7 % Hemoglobin 7.1 g/dL Prothromb Time International Ratio 1.2 Prothrombin Time 12.6 SECONDS Assessment & Plan Assessment: HD #2, Left knee medial rim tibial plateau fracture, non-displaced, lower leg hematoma, no evidence of compartment syndrome. Left elbow abrasion/skin tear unlikely a fracture. Plan: Continue immobilizer when OOB, may remove for ROM exercises in bed/chair. May change Grimes dressing LLE. Continue with ice/elevation May be ambulatory with walker, WBAT with immobilizer No splint needed for L elbow, change dressing as needed. Will continue to follow while in hospital. Ok to discharge from an Ortho stand point, f/u in the office 1 week after discharge. Call [phone] for appointment. Continue care per primary service.
--- NOTE | 2017-04-14 16:55 | Progress Note ---
Medicine Progress Note Date & Time of Visit: Apr 14, 2017 at 7:30. Subjective tolerating PO afebrile reports lightheadedness has resolved. reports pain is improved, not requiring narcotics. Objective Last 8 Hrs Date Time Temp Pulse Resp B/P (MAP) Pulse Ox O2 Delivery O2 Flow Rate FiO2 04/14/17 15:47 96 116/74 (88) 04/14/17 15:46 83 143/53 (83) 04/14/17 15:12 36.8 77 18 146/75 (98) 94 Room Air 04/14/17 13:53 36.8 82 18 147/76 96 04/14/17 13:25 36.7 79 18 136/71 95 04/14/17 13:10 36.9 79 18 143/79 95 04/14/17 12:55 36.8 77 18 146/65 95 04/14/17 12:23 36.7 74 18 131/76 98 04/14/17 11:00 36.8 84 18 140/66 96 04/14/17 10:30 36.9 79 18 144/66 97 04/14/17 10:00 36.6 81 18 136/77 95 04/14/17 09:44 36.7 82 20 136/73 94 04/14/17 09:26 36.6 79 18 138/80 96 04/14/17 08:41 149/75 (99) 128/97 (107) 128/78 (95) Physical Exam: GEN: obese, in no acute distress, alert and appropriate HEENT: NC/AT, normal sclerae, MMM CARDIO: reg rate, S1/2 heard without m/g/r LUNGS: CTA bilaterally, no crackles, rales or wheezes, good diaphragmatic excursion ABD: soft, non-tender, non-distended, no rebound or guarding, +BS EXTREMITY: RP and DP palpable 2+ bilat, LLE in extensive, large knee immobilizer in place. NEURO: CN 2-12 grossly intact, sensation intact throughout SKIN: warm and dry Laboratory Results: 04/14/17 05:30 04/14/17 05:30 Test 04/13/17 05:25 04/14/17 05:30 Immature Granulocyte % (Auto) 0.1 % White Blood Count 6.78 K/uL (4.8-10.8) Red Blood Count 2.48 M/uL (4.2-5.4) 2.11 M/uL (4.2-5.4) Hemoglobin 8.5 g/dL (12.0-16.0) Hematocrit 25.5 % (37-47) Mean Corpuscular Volume 102.8 fL (80-100) 102.8 fL (80-100) Mean Corpuscular Hemoglobin 34.3 pg (25-34) 33.6 pg (25-34) Mean Corpuscular Hemoglobin Concent 33.3 g/dl (32-36) 32.7 g/dl (32-36) Platelet Count 212 K/uL (130-400) Mean Platelet Volume 10.2 fL (7.4-10.4) 9.6 fL (7.4-10.4) Neutrophils (%) (Auto) 61.1 % Lymphocytes (%) (Auto) 30.7 % Monocytes (%) (Auto) 6.6 % Eosinophils (%) (Auto) 1.2 % Basophils (%) (Auto) 0.3 % Neutrophils # (Auto) 4.14 K/uL (1.4-6.5) Lymphocytes # (Auto) 2.08 K/uL (1.2-3.4) Monocytes # (Auto) 0.45 K/uL (0.11-0.59) Eosinophils # (Auto) 0.08 K/uL (0-0.5) Basophils # (Auto) 0.02 K/uL (0-0.2) Immature Granulocyte # (Auto) 0.01 K/uL (0.00-0.02) Red Blood Cell Morphology Unremarkable Activated Partial Thromboplast Time 28.3 SECONDS (21.0-31.0) Partial Thromboplastin Ratio 1.1 Total Bilirubin 0.7 mg/dl (0.2-1) Aspartate Amino Transf (AST/SGOT) 15 U/L (15-37) Alanine Aminotransferase (ALT/SGPT) 15 U/L (12-78) Alkaline Phosphatase 40 U/L (45-117) Total Protein 5.1 gm/dl (6.4-8.2) Albumin 2.5 gm/dl (3.4-5.0) Globulin 2.6 gm/dl (2.5-4.0) Albumin/Globulin Ratio 1.0 (0.9-2) RDW Standard Deviation 50.2 fL (36.4-46.3) RDW Coefficient of Variation 13.3 % (11.5-14.5) Prothrombin Time 12.6 SECONDS (9.0-12.0) Prothromb Time International Ratio 1.2 (0.9-1.1) Anion Gap 7.0 mmol/L (3-11) Est Creatinine Clear Calc Drug Dose 46.2 ml/min Estimated GFR () 46.5 Estimated GFR (Non- 40.1 BUN/Creatinine Ratio 19.3 (10-20) Calcium Level 8.0 mg/dl (8.5-10.1) Magnesium Level 2.1 mg/dl (1.8-2.4) Last 24 Hours Test 04/14/17 05:30 White Blood Count 6.54 K/uL Red Blood Count 2.11 M/uL Hemoglobin 7.1 g/dL Hematocrit 21.7 % Mean Corpuscular Volume 102.8 fL Mean Corpuscular Hemoglobin 33.6 pg Mean Corpuscular Hemoglobin Concent 32.7 g/dl RDW Standard Deviation 50.2 fL RDW Coefficient of Variation 13.3 % Platelet Count 185 K/uL Mean Platelet Volume 9.6 fL Prothrombin Time 12.6 SECONDS Prothromb Time International Ratio 1.2 Sodium Level 142 mmol/L Potassium Level 4.0 mmol/L Chloride Level 109 mmol/L Carbon Dioxide Level 26 mmol/L Anion Gap 7.0 mmol/L Blood Urea Nitrogen 25 mg/dl Creatinine 1.30 mg/dl Est Creatinine Clear Calc Drug Dose 46.2 ml/min Estimated GFR () 46.5 Estimated GFR (Non- 40.1 BUN/Creatinine Ratio 19.3 Random Glucose 95 mg/dl Calcium Level 8.0 mg/dl Magnesium Level 2.1 mg/dl Assessment & Plan 77 yo F therapeutic on coumadin with LLE pain after tripping and falling with subsequent hematoma and . She remembers the fall and reports that she had some lightheadedness last night and has had issues with dizziness with changing position to standing that has persisted for months. She also reports fleeting chest pains that last for seconds at a time that have been chronic for her. 1. Left knee medial rim tibial plateau fracture, non-displaced, lower leg hematoma, no evidence of compartment syndrome. Coumadin is being held and can be restarted as outpatient. Knee immobilizer to be used with movement only. PT /OT examined her today and recommends she is safe to return home at discharge. 2. Anemia-likely related to large hematoma on coumadin. Lightheadedness has reportedly resolved but H/H 03/08. Two units blood given. 3. Orthostatic hypotension-she has had this going on chronically in the last year, likely exacerbated from acute blood loss anemia. Other etiologies include atenolol, Cymbalta use, autonomic dysfunction, etc. 4. Asthma-stable, no wheezing. Changed albuterol from scheduled to PRN. 5. L elbow trauma-per Ortho no fracture likely present and no immobilization or other workup/treatment required at this time. 6. Depression-cont cymbalta 60mg PO daily 7. Obesity 8. XIN-likely 2/2 prerenal azotemia 2/2 acute blood loss. Improved today to creat 1.3 with IVF overnight. 9. Osteoporosis-hold Fosamax in setting of fracture. May be resumed as outpatient in a few months. 10. OA-takes Elavil for pain which is continued. DVT proph: contraindicated in setting of bleed, coumadin held FULL CODE Dispo-poss to home in am as long as dizziness has resolved and blood counts are increased after transfusion. DO Val Sawyer Hospitalist Consultants: Ortho Current Inpatient Medications: Current Inpatient Medications Medications (Trade) Dose Ordered Sig/Satya Route Start Time Stop Time Status Last Admin Dose Admin Miscellaneous (Iv Fluids Completed) 1 ea PRN PRN N/A 04/12/17 18:00 04/12/18 17:59 Acetaminophen (Tylenol Tab) 650 mg Q4H PRN PO 04/12/17 18:00 05/12/17 17:59 04/14/17 04:09 650 MG Ondansetron HCl (Zofran Inj) 4 mg Q6H PRN IV 04/12/17 18:00 05/12/17 17:59 Amitriptyline HCl (Elavil Tab) 25 mg HS PO 04/12/17 21:00 05/12/17 20:59 04/13/17 21:23 25 MG Atenolol (Tenormin Tab) 50 mg HS PO 04/12/17 21:00 05/12/17 20:59 04/13/17 21:23 50 MG Salmeterol Xinafoate/ Fluticasone (Advair Diskus 250/50 Inh) 1 puff BID INH 04/12/17 21:00 05/12/17 20:59 04/14/17 08:24 1 PUFF Levothyroxine Sodium (Synthroid Tab) 25 mcg DAILYBB PO 04/13/17 06:00 05/13/17 05:59 04/14/17 05:42 25 MCG Simvastatin (Zocor Tab) 20 mg QPM PO 04/12/17 21:00 05/12/17 20:59 04/13/17 21:23 20 MG Cholecalciferol (Vitamin D Tab) 1,000 inter.unit DAILY PO 04/13/17 09:00 05/13/17 08:59 04/14/17 08:24 1,000 INTER.UNIT Hydromorphone HCl (Dilaudid Inj) 0.5 mg Q20M PRN IV 04/12/17 18:30 04/26/17 18:29 04/12/17 23:27 0.5 MG Albuterol (Ventolin Hfa Inhaler) 2 puffs QID PRN INH 04/13/17 21:00 05/12/17 20:59 Duloxetine HCl (Cymbalta Cap) 60 mg DAILY PO 04/14/17 09:00 05/14/17 08:59 04/14/17 08:25 60 MG Sodium Chloride 1,000 ml @ 15 mls/hr Q24H IV 04/14/17 07:00 05/14/17 06:59 04/14/17 07:22 15 MLS/HR
[2017-04-14] MEDS: AMITRIPTYLINE HCL 25 MG TAB PO SCH (21:09)
[2017-04-14] MEDS: SIMVASTATIN 20 MG TAB PO SCH (21:12)
[2017-04-14] MEDS: HYDROmorphone INJ 0.5 MG/0.5 ML SYR IV PRN (21:13)
[2017-04-15] MEDS: LEVOTHYROXINE 25 MCG TAB PO SCH (05:27)
[2017-04-15] MEDS: SODIUM CHLORIDE 0.9% 1000ML 1,000 ML IV SCH (05:28)
[2017-04-15 05:56] LABS: HEMATOCRIT 29.5 % (37-47); MEAN CELL VOLUME 99.7 fL (80-100); MEAN CORPUSCULAR HEMOGLOBIN 32.1 pg (25-34); MEAN CORPUSCULAR HGB CONC 32.2 g/dl (32-36); MEAN PLATELET VOLUME 9.8 fL (7.4-10.4); PLATELET COUNT 195 K/uL (130-400); RED BLOOD COUNT 2.96 M/uL (4.2-5.4); WHITE BLOOD COUNT 7.51 K/uL (4.8-10.8)
[2017-04-15 06:04] LABS: PROTHROMBIN TIME (PATIENT) 10.9 SECONDS (9.0-12.0)
[2017-04-15 06:28] LABS: BUN/CREATININE RATIO 18.3 (10-20); CALCIUM 8.2 mg/dl (8.5-10.1); CREATININE 1.2 mg/dl (0.60-1.20)
[2017-04-15 06:53] VITALS: BP_SYST 137; BP_SYST 149; BP_SYST 176; BP_DIAS 80; BP_DIAS 84; BP_DIAS 85; PULSE 75; TEMP 36.4; O2SAT 93
[2017-04-15] MEDS: CHOLECALCIFEROL 1000 INTER.UNIT TAB PO SCH (08:31)
[2017-04-15] MEDS: FLUTICASONE/SALMETEROL 250/50 (ADVAIR) 14 PUFF/1 INHALER INH SCH (08:31)
[2017-04-15] MEDS: DULOXETINE HCL 60 MG CAP PO SCH (08:31)
--- NOTE | 2017-04-15 08:56 | Orthopedic Progress Note ---
Orthopedic Progress Note Date of Service Apr 15, 2017. Subjective Reports: feeling well, complaints (knee immobilizer digging into left heel/back of leg), pain controlled w PO medications Objective calves soft nontender, capillary refill less than 2 sec., dressing C/D/I, A&O x3 , toes mobile Tolerates ROM of left ankle/gentle ROM left knee. Date Time Temp Pulse Resp B/P (MAP) Pulse Ox O2 Delivery O2 Flow Rate FiO2 04/15/17 07:41 Room Air 04/15/17 06:53 36.4 75 16 176/84 (114) 93 Room Air 149/85 (106) 137/80 (99) 04/14/17 23:25 Room Air 04/14/17 23:15 36.6 76 16 160/65 (96) 92 Room Air 80 154/66 (95) 78 139/68 (91) 04/14/17 20:55 83 158/73 (101) 04/14/17 16:02 Room Air 04/14/17 15:47 96 116/74 (88) 04/14/17 15:46 83 143/53 (83) 04/14/17 15:12 36.8 77 18 146/75 (98) 94 Room Air 04/14/17 13:53 36.8 82 18 147/76 96 04/14/17 13:25 36.7 79 18 136/71 95 04/14/17 13:10 36.9 79 18 143/79 95 04/14/17 12:55 36.8 77 18 146/65 95 04/14/17 12:23 36.7 74 18 131/76 98 04/14/17 11:00 36.8 84 18 140/66 96 04/14/17 10:30 36.9 79 18 144/66 97 04/14/17 10:00 36.6 81 18 136/77 95 04/14/17 09:44 36.7 82 20 136/73 94 04/14/17 09:26 36.6 79 18 138/80 96 Laboratory Results 24 Hours: Test 04/15/17 05:02 Hematocrit 29.5 % Hemoglobin 9.5 g/dL Prothromb Time International Ratio 1.0 Prothrombin Time 10.9 SECONDS Assessment & Plan Assessment: HD #3, Left knee medial rim tibial plateau fracture, non-displaced, lower leg hematoma, no evidence of compartment syndrome. Left elbow abrasion/skin tear unlikely a fracture. Plan: Continue immobilizer when OOB, may remove for ROM exercises in bed/chair. Removed when sitting in bed today to try to bend back of brace away from skin. May need to apply ABD behind bottom of immobilizer. She felt so much better with it off, so left if off at rest for a little while. Encouraged ROM left knee. May change Grimes dressing LLE. Continue with ice/elevation May be ambulatory with walker, WBAT with immobilizer No splint needed for L elbow, change dressing as needed. Will continue to follow while in hospital. Ok to discharge from an Ortho stand point, f/u in the office 1 week after discharge. Call [phone] for appointment. Continue care per primary service. Will discuss findings with Dr. Thompson.
--- NOTE | 2017-04-15 09:04 | Consultant Recommendations ---
Inventory Auditor Recommendations Date of Service Apr 15, 2017. Inventory Auditor Recommendations OOB with knee immobilizer left knee May weight bear as tolerated with knee immobilizer on left knee May remove immobilizer at rest to do knee exercises Ice and elevate as needed for pain/swelling range of motion left elbow/activities as tolerated left elbow Continue compression dressing left lower extremity Can use Teds stocking (knee) for compression Ankle pumps frequently Follow up with Dr. Thompson on 04/24/17 at 8:30 a.m. Please call [phone] to confirm or reschedule appointment.
[2017-04-15 13:12] VITALS: BP 137/80; PULSE 75; TEMP 36.4; O2SAT 93
--- NOTE | 2017-04-15 13:36 | Discharge Instructions ---
Discharge Instructions Date of Service Apr 15, 2017. Admission Reason for Admission: Hematoma Discharge Discharge Diagnosis / Problem: Left knee medial rim tibial plateau fracture, non-displaced, hematoma Discharge Goals Goal(s): Prevent Disease Progression Activity Recommendations Activity Limitations: per Instructions/Follow-up section . Instructions / Follow-Up Instructions / Follow-Up Please take all medications as instructed. Please note to stop Fosamax in setting of fracture and Coumadin (warfarin) in setting of hematoma and blood loss. You have a follow-up appointment scheduled on 04/18 @ [address] Swanson at your primary care office for follow-up of this hospitalization. Please bring all paperwork you receive at discharge. Please follow all Orthopedic instructions below; follow-up appointment has also been scheduled and is listed below. It was a pleasure taking care of you! Call if you have any questions or problems. You can reach a [facility] hospitalist on duty at [facility] 24 hours a day by calling [phone]. Take care of yourself. Zuri Mercedes DO [facility] Hospitalist Current Hospital Diet Patient's current hospital diet: Renal Diet Discharge Diet Recommended Diet: AHA Diet (Heart Healthy) Procedures Procedures Performed: None. Pending Studies Studies pending at discharge: no Medical Emergencies . Who to Call and When: Medical Emergencies: If at any time you feel your situation is an emergency, please call 911 immediately. . Non-Emergent Contact Non-Emergency issues call your: Primary Care Provider . . "Provider Documentation" section prepared by Zuri Mercedes. . Mold Tooler Recommendations Mold Tooler Recommendations: OOB with knee immobilizer left knee May weight bear as tolerated with knee immobilizer on left knee May remove immobilizer at rest to do knee exercises Ice and elevate as needed for pain/swelling range of motion left elbow/activities as tolerated left elbow Continue compression dressing left lower extremity Can use Teds stocking (knee) for compression Ankle pumps frequently Follow up with Dr. Thompson on 04/24/17 at 8:30 a.m. Please call [phone] to confirm or reschedule appointment. VTE Core Measure Inpt VTE Proph given/why not?: Contraindicated
--- NOTE | 2017-04-15 13:44 | Discharge Summary ---
Discharge Summary Date of Service Apr 15, 2017. Discharge Summary Admission Date: Apr 14, 2017 at 07:53 Discharge Date: Apr 15, 2017 Principal Diagnosis: L knee medial rim tibial plateau fracture, non-displaced L leg hematoma s/p mechanical fall L elbow trauma without evidence of fracture s/p mechanical fall Long-term anticoagulation with coumadin Anemia 2/2 acute blood loss Orthostatic hypotension XIN-resolved Asthma Depression Obesity Osteoporosis Osteoarthritis Procedures: None. Vaccinations: Declined. Consultations: Ortho Pending Studies/Follow-Up: see instructions below. Medication Reconciliation Continued Medications: Albuterol Hfa (Ventolin Hfa) 200 Puffs/28950 Mcg Aers 2 PUFFS INH QID, #1 INHALER Amitriptyline Hcl (Elavil) 25 Mg Tab 25 MG PO HS, TAB Atenolol (Tenormin) 50 Mg Tab 50 MG PO HS, 0 Refills Calcium Carbonate (Tums) 500 Mg Chew 1-2 TABLETS PO PRN Cholecalciferol (Vitamin D3) 1,000 Inter.unit Tab 1000 UNITS PO DAILY Duloxetine Hcl (Cymbalta) 60 Mg Cap 1 CAP PO DAILY, 3 Refills Fluticasone Prop/Salmeterol (Advair Diskus 250/50 Mcg *) Aerp 1 PUFF INH BID, 0 Refills Fluticasone Prop/Salmeterol (Advair Diskus 250/50 60 Dose) 1 Ea Aerp 1 PUFF INH BID, INHALER Home O2 Therapy (Oxygen) Gas 2 LITERS NA UD Ketotifen Fumarate (Ophth) (Alaway) 0.025 % Erik 1 DROPS OP BID PRN for PRN, #10 ML 1 Refill Levothyroxine Sodium (Synthroid) 25 Mcg Tab 25 MCG PO DAILY, TAB Simvastatin (Zocor) 20 Mg Tab 20 MG PO QPM, 0 Refills Sumatriptan Succinate (Imitrex) 100 Mg Tab 100 MG PO PRN, TAB Discontinued Medications: Alendronate Sodium (Fosamax) 70 Mg Tab 1 TAB PO WK for 28 Days, #4 TAB 11 Refills Warfarin Sod (Jantoven) 5 Mg Tab 5 MG PO [id number], TAB every day but saturday Warfarin Sod (Coumadin) 5 Mg Tab 2.5 MG PO DAILY Admission Information HPI (per Admitting provider): Patient is a 77yo F with a 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 Patient was entering a restaurant when she tripped over a rug, fell forward and landed on her left side. Denies hitting her head or any LOC. Was brought to the ED by her , who witnessed the event. Patient with pain and bruising of the L lower leg, around knee and L elbow. Patient is on long-term anticoagulation and was found to have a supratherapeutic INR of 2.9 in the ED. Was given Vitamin K by mouth. Denies confusion, CP, SOB, abdominal pain, N/V, numbness or tingling in LE. Physical Exam (per Admitting): General Appearance: no apparent distress, + obese Head: normocephalic, atraumatic Eyes: normal inspection, EOMI, sclerae normal ENT: normal ENT inspection, hearing grossly normal, pharynx normal Neck: supple, no JVD, trachea midline Respiratory/Chest: chest non-tender, lungs clear, normal breath sounds, no respiratory distress, no accessory muscle use Cardiovascular: regular rate, rhythm, no edema, no JVD Abdomen/GI: non tender, soft Back: normal inspection, no muscle spasm Extremities/Musculoskelatal: normal capillary refill, no pedal edema, + pertinent finding (orthopedics placed left leg in splint) Neurologic/Psych: alert, oriented x 3 Hospital Course 77 yo F therapeutic on coumadin with LLE pain after tripping and falling with subsequent hematoma and . She remembers the fall and reports that she had some lightheadedness last night and has had issues with dizziness with changing position to standing that has persisted for months. She also reports fleeting chest pains that last for seconds at a time that have been chronic for her. 1. Left knee medial rim tibial plateau fracture, non-displaced, lower leg hematoma, no evidence of compartment syndrome. Coumadin is being held and can be restarted as outpatient. Knee immobilizer to be used with movement only. PT /OT examined her today and recommends she is safe to return home at discharge. 2. Anemia-likely related to large hematoma on coumadin. Lightheadedness has reportedly resolved but H/H 03/08. Two units blood given. 3. Orthostatic hypotension-she has had this going on chronically in the last year, likely exacerbated from acute blood loss anemia. Other etiologies include atenolol, Cymbalta use, autonomic dysfunction, etc. 4. Asthma-stable, no wheezing. Changed albuterol from scheduled to PRN. 5. L elbow trauma-per Ortho no fracture likely present and no immobilization or other workup/treatment required at this time. 6. Depression-cont cymbalta 60mg PO daily 7. Obesity 8. XIN-likely 2/2 prerenal azotemia 2/2 acute blood loss. Improved today to creat 1.3 with IVF overnight. 9. Osteoporosis-hold Fosamax in setting of fracture. May be resumed as outpatient in a few months. 10. OA-takes Elavil for pain which is continued. On day of discharge she was afebrile and hemodynamically stable. She was evaluated by PT and was deemed appropriate to return home from their standpoint. Her bruising was resolved on her leg and pain was minimal to none. Ortho also cleared her to leave and use the knee immobilizer while ambulating. No evidence of compartment syndrome was present during the entire admission. She was discharged in stable condition. Total time spent on discharge = 60 minutes This includes examination of the patient, discharge planning, medication reconciliation, and communication with other providers[place] [address] Discharge Medical Patient Name: Anh Breaux Unit Number: [id number] Date of : 1940 Patient Status: Admitted Inpatient Attending Doctor: Zuri Mercedes DO DI: Medical v4 Discharge Instructions Date of Service Apr 15, 2017. Admission Reason for Admission: Hematoma Discharge Discharge Diagnosis / Problem: Left knee medial rim tibial plateau fracture, non-displaced, hematoma Discharge Goals Goal(s): Prevent Disease Progression Activity Recommendations Activity Limitations: per Instructions/Follow-up section . Instructions / Follow-Up Instructions / Follow-Up Please take all medications as instructed. Please note to stop Fosamax in setting of fracture and Coumadin (warfarin) in setting of hematoma and blood loss. You have a follow-up appointment scheduled on 04/18 @ [address] Swanson at your primary care office for follow-up of this hospitalization. Please bring all paperwork you receive at discharge. Please follow all Orthopedic instructions below; follow-up appointment has also been scheduled and is listed below. It was a pleasure taking care of you! Call if you have any questions or problems. You can reach a [facility] hospitalist on duty at [facility] 24 hours a day by calling [phone]. Take care of yourself. DO [facility] Current Hospital Diet Patient's current hospital diet: Renal Diet Discharge Diet Recommended Diet: AHA Diet (Heart Healthy) Procedures Procedures Performed: None. Pending Studies Studies pending at discharge: no Medical Emergencies . Who to Call and When: Medical Emergencies: If at any time you feel your situation is an emergency, please call [phone] immediately. . Non-Emergent Contact Non-Emergency issues call your: Primary Care Provider . . "Provider Documentation" section prepared by Zuri Mercedes. . Coding Analyst Recommendations Coding Analyst Recommendations: OOB with knee immobilizer left knee May weight bear as tolerated with knee immobilizer on left knee May remove immobilizer at rest to do knee exercises Ice and elevate as needed for pain/swelling range of motion left elbow/activities as tolerated left elbow Continue compression dressing left lower extremity Can use Teds stocking (knee) for compression Ankle pumps frequently Follow up with Dr. Thompson on 04/24/17 at 8:30 a.m. Please call [phone] to confirm or reschedule appointment. VTE Core Measure Inpt VTE Proph given/why not?: Contraindicated Additional Copies To Reba Swanson DO; Giorgio Salas, D.O.
== END 2017-04-15 14:35 | disposition home or self-care (01) | DRG 813 ==
LOC: C.EDB 12:09 → C.3E 17:37 → EDBEDREQ 18:28 → ENRESERV 18:41 → OBSVTOIN 04-14 07:53
PROVIDERS: ADMIT Hospitalist; ATTEND Hospitalist
DX: D68.32 Hemorrhagic disorder due to extrinsic circulating anticoagulants (principal); S82.135A Nondisplaced fracture of medial condyle of left tibia, initial encounter for closed fracture; N17.9 Acute kidney failure, unspecified; D62 Acute posthemorrhagic anemia; T45.515A Adverse effect of anticoagulants, initial encounter; S80.12XA Contusion of left lower leg, initial encounter; I12.9 Hypertensive chronic kidney disease with stage 1 through stage 4 chronic kidney disease, or unspecified chronic kidney disease; J45.909 Unspecified asthma, uncomplicated; E03.9 Hypothyroidism, unspecified; Z86.711 Personal history of pulmonary embolism; Z79.01 Long term (current) use of anticoagulants; M19.90 Unspecified osteoarthritis, unspecified site; N18.2 Chronic kidney disease, stage 2 (mild); M18.2 Bilateral post-traumatic osteoarthritis of first carpometacarpal joints; E66.9 Obesity, unspecified; M81.0 Age-related osteoporosis without current pathological fracture; I95.1 Orthostatic hypotension; Y93.01 Activity, walking, marching and hiking; Y92.511 Restaurant or cafe as the place of occurrence of the external cause; W18.09XA Striking against other object with subsequent fall, initial encounter; Z68.41 Body mass index [BMI] 40.0-44.9, adult

== ENCOUNTER → 2017-04-24 | Outpatient (CLI) | payer OTHER ==
[~2017-04-24] MED LIST changes: +ADVIN25/60 INH; +ADVIN25050 INH; -ALBUAER2 INH; -ALEN70TA2 PO; +AMIT25TA9 PO; -AMT25 PO; +ATEN50TA8 PO; -BND25 PO; +CALC500C3 PO; -CHOL100010 PO; +DULO60CA44 PO; -HYDR1TAB2 PO; +LEVO25TA PO; -LEVO50TA60 PO; +OXGN; -SERT1TAB68 PO; +SIMV20TA2 PO; +SUMA100T16 PO; +VNTHFA/IN INH; +VTMD1000 PO; -WARF5TAB7 PO
== END | disposition home or self-care (01) ==
LOC: C.RDSM 10:42
PROVIDERS: ATTEND Orthopaedic Surgery Sports Medicine
DX: Z09 Encounter for follow-up examination after completed treatment for conditions other than malignant neoplasm (principal)

== ENCOUNTER → 2017-05-29 | Outpatient (CLI) | payer OTHER | END | disposition home or self-care (01) | LOC: C.RDSM 10:55 | PROVIDERS: ATTEND Orthopaedic Surgery Sports Medicine | DX: M79.89 Other specified soft tissue disorders (principal) ==

== ENCOUNTER 2017-09-26 10:47 | Inpatient (IN) | payer OTHER ==
[~2017-09-26] VITALS: Ht 165.1 cm; Wt 113.9 kg
[2017-09-26] MEDS ORDERED: NITROGLYCERIN 0.4 MG SL PER TAB CHARGE SL STA (11:18)
[2017-09-26 11:20] LABS: BASO % 0.3 %; BASO ABS # 0.02 K/uL (0-0.2); EOS ABS # 0.17 K/uL (0-0.5); HEMATOCRIT 36.2 % (37-47); HEMOGLOBIN 11.8 g/dL (12.0-16.0); LYMPH % 27.1 %; LYMPH ABS # 1.56 K/uL (1.2-3.4); MEAN CELL VOLUME 105.5 fL (80-100); MEAN CORPUSCULAR HEMOGLOBIN 34.4 pg (25-34); MEAN CORPUSCULAR HGB CONC 32.6 g/dl (32-36); MEAN PLATELET VOLUME 10.1 fL (7.4-10.4); MONO ABS # 0.23 K/uL (0.11-0.59); NEUT % 65.6 %; NEUT ABS # 3.77 K/uL (1.4-6.5); PLATELET COUNT 197 K/uL (130-400); RED CELL DISTRIBUTION WIDTH CV 13.3 % (11.5-14.5); RED CELL DISTRIBUTION WIDTH SD 51.8 fL (36.4-46.3); WHITE BLOOD COUNT 5.75 K/uL (4.8-10.8)
--- NOTE | 2017-09-26 11:26 | DIAGNOSTIC IMAGING REPORT ---
CHEST ONE VIEW PORTABLE CLINICAL HISTORY: Atypical chest pain COMPARISON STUDY: 07/05/2013 FINDINGS: The heart is the upper limits of normal in size. There is persistent moderate elevation right hemidiaphragm. There is no failure. There is no lobar consolidation. Linear by basilar opacities are felt to be atelectatic.[ There are no significant pleural effusions. IMPRESSION: No active disease in the chest. Persistent elevation of the right hemidiaphragm. Basilar atelectasis. Electronically signed by: Eric Lopez M.D. 09/26/2017 11:25 AM Dictated Date/Time: 09/26/2017 11:24 AM
[2017-09-26] MEDS ORDERED: CLOPIDOGREL BISULFATE 300 MG TAB PO STA (11:30)
[2017-09-26] MEDS ORDERED: NITROGLYCERIN 0.4 MG SL PER TAB CHARGE SL PRN ×2 (11:30→12:45)
[2017-09-26 11:31] LABS: INR 1.2 (0.9-1.1); PTT PATIENT 23.9 SECONDS (21.0-31.0)
[2017-09-26] MEDS ORDERED: WARF5TAB7 PO (11:35)
[2017-09-26] MEDS ORDERED: FSM70 PO (11:35)
[2017-09-26] MEDS ORDERED: ATEN100T PO (11:35)
[2017-09-26 11:37] LABS: CALCIUM 8.7 mg/dl (8.5-10.1); CREATININE 1.15 mg/dl (0.60-1.20); POTASSIUM 3.7 mmol/L (3.5-5.1)
--- NOTE | 2017-09-26 12:08 | EMERGENCY ROOM VISIT NOTE ---
History Report prepared by Jasmine: Dawit Vicente Under the Supervision of: Dr. Bhavik Castillo M.D. First contact with patient: 11:03 Chief Complaint: CHEST PAIN Stated Complaint: CHEST PAIN Nursing Triage Summary: pt reports chest pain feels like someone sitting on her. pt had cardiogram 1 week ago. has been having chest pain started over 1 week ago. feels sob History of Present Illness The patient is a 77 year old female who presents to the Emergency Room with complaints of intermittent left sided chest pain beginning over a one week ago. She states that her pain is present "a couple times per day". Her pain radiates down her right arm. The patient describes her pain as "mild". She also complains of intermittent lightheadedness. She denies passing out, urinary symptoms, or black or bloody stool. The patient has a history of HTN, and HLD. She is on a blood thinner. Source of History: patient Onset: over a week ago Position: chest (left) Symptom Intensity: mild Timing: intermittent Associated Symptoms: No LOC, No melena, No hematochezia, No urinary symptoms Note: Additional symptoms: pain radiating down her right arm and intermittent lightheadedness. Review of Systems See HPI for pertinent positives and negatives. A total of ten systems were reviewed and were otherwise negative. Past Medical & Surgical Medical Problems: (1) Asthma (2) Benign hypertension (3) Bronchitis (4) Hematoma (5) Hypothyroidism (6) Low back pain (7) Pulmonary embolism (8) Symptomatic anemia Family History Diabetes mellitus MOTHER FH: cancer FATHER FH: diabetes mellitus Social History Smoking Status: Never Smoker Marital Status: Housing Status: lives with family Occupation Status: retired Current/Historical Medications Scheduled Albuterol Hfa (Ventolin Hfa), 2 PUFFS INH QID Alendronate Sodium (Alendronate Sodium), 70 MG PO WK Amitriptyline Hcl (Elavil), 25 MG PO HS Atenolol (Tenormin), 100 MG PO DAILY Calcium Carbonate (Tums), 1-2 TABLETS PO PRN Cholecalciferol (Vitamin D3), 1,000 UNITS PO DAILY Duloxetine Hcl (Cymbalta), 60 MG PO DAILY Fluticasone Prop/Salmeterol (Advair Diskus 250/50 60 Dose), 1 PUFF INH BID Home O2 Therapy (Oxygen), 2 LITERS NA UD Levothyroxine Sodium (Synthroid), 25 MCG PO DAILY Simvastatin (Zocor), 20 MG PO QPM Sumatriptan Succinate (Imitrex), 100 MG PO PRN Warfarin Sod (Jantoven), 5 MG PO DAILY Allergies Coded Allergies: Aspirin (Verified Allergy, Unknown, UNKNOWN, 04/12/17) Sulfa Antibiotics (Verified Allergy, Unknown, Unknown, 04/12/17) Physical Exam Vital Signs Date Time Temp Pulse Resp B/P (MAP) Pulse Ox O2 Delivery O2 Flow Rate FiO2 09/26/17 11:45 93 Room Air 09/26/17 11:45 94 Room Air 09/26/17 11:07 68 09/26/17 10:51 36.7 78 20 140/77 98 Room Air Physical Exam GENERAL: Awake, alert, well-appearing, in no distress HENT: Normocephalic, Atraumatic. no hemotympanum bilaterally, blunt sign negative bilaterally. Oropharynx unremarkable. EYES: Normal conjunctiva. Sclera non-icteric. PERRL bilaterally. EOMI bilaterally. NECK: Supple. No nuchal rigidity. FROM. No JVD. No C-spine tenderness. RESPIRATORY: Clear to auscultation. No wheezes, rhonchi or rales bilaterally. CARDIAC: Regular rate, normal rhythm. Extremities warm and well perfused. Equal palpable radial pulses to the bilateral upper extremities. Equal palpable DP pulses to the bilateral lower extremities. ABDOMEN: Soft, non-distended. No tenderness to palpation. No rebound or guarding. No masses. Rovsig Negative. RECTAL: Deferred. MUSCULOSKELETAL: Chest examination reveals no tenderness. The back is symmetrical on inspection without obvious abnormality. There is no CVA tenderness to palpation. No joint edema. LOWER EXTREMITIES: Calves are equal size bilaterally and non-tender. No edema. No discoloration. NEURO: Normal sensorium. No sensory or motor deficits noted. No pronator drift. No facial droop. No dysarthria. SKIN: No rash or jaundice noted. Medical Decision & Procedures ER Provider Diagnostic Interpretation: Radiology results as stated below per my review and radiologist interpretation: CHEST ONE VIEW PORTABLE FINDINGS: The heart is the upper limits of normal in size. There is persistent moderate elevation right hemidiaphragm. There is no failure. There is no lobar consolidation. Linear by basilar opacities are felt to be atelectatic.[ There are no significant pleural effusions. IMPRESSION: No active disease in the chest. Persistent elevation of the right hemidiaphragm. Basilar atelectasis. Electronically signed by: Eric Lopez M.D. 09/26/2017 11:25 AM Laboratory Results 09/26/17 11:10 Red Blood Count 3.43, Mean Corpuscular Volume 105.5, Mean Corpuscular Hemoglobin 34.4, Mean Corpuscular Hemoglobin Concent 32.6, Mean Platelet Volume 10.1, Neutrophils (%) (Auto) 65.6, Lymphocytes (%) (Auto) 27.1, Monocytes (%) ( Auto) 4.0, Eosinophils (%) (Auto) 3.0, Basophils (%) (Auto) 0.3, Neutrophils # ( Auto) 3.77, Lymphocytes # (Auto) 1.56, Monocytes # (Auto) 0.23, Eosinophils # ( Auto) 0.17, Basophils # (Auto) 0.02 09/26/17 11:10 Test 09/26/17 11:10 White Blood Count 5.75 K/uL (4.8-10.8) Red Blood Count 3.43 M/uL (4.2-5.4) Hemoglobin 11.8 g/dL (12.0-16.0) Hematocrit 36.2 % (37-47) Mean Corpuscular Volume 105.5 fL (80-100) Mean Corpuscular Hemoglobin 34.4 pg (25-34) Mean Corpuscular Hemoglobin Concent 32.6 g/dl (32-36) Platelet Count 197 K/uL (130-400) Mean Platelet Volume 10.1 fL (7.4-10.4) Neutrophils (%) (Auto) 65.6 % Lymphocytes (%) (Auto) 27.1 % Monocytes (%) (Auto) 4.0 % Eosinophils (%) (Auto) 3.0 % Basophils (%) (Auto) 0.3 % Neutrophils # (Auto) 3.77 K/uL (1.4-6.5) Lymphocytes # (Auto) 1.56 K/uL (1.2-3.4) Monocytes # (Auto) 0.23 K/uL (0.11-0.59) Eosinophils # (Auto) 0.17 K/uL (0-0.5) Basophils # (Auto) 0.02 K/uL (0-0.2) RDW Standard Deviation 51.8 fL (36.4-46.3) RDW Coefficient of Variation 13.3 % (11.5-14.5) Immature Granulocyte % (Auto) 0.0 % Immature Granulocyte # (Auto) 0.00 K/uL (0.00-0.02) Prothrombin Time 12.6 SECONDS (9.0-12.0) Prothromb Time International Ratio 1.2 (0.9-1.1) Activated Partial Thromboplast Time 23.9 SECONDS (21.0-31.0) Partial Thromboplastin Ratio 0.9 D-Dimer 2240 ug/L FEU (0-500) Anion Gap 7.0 mmol/L (3-11) Est Creatinine Clear Calc Drug Dose 53.2 ml/min Estimated GFR () 53.9 Estimated GFR (Non- 46.5 BUN/Creatinine Ratio 18.9 (10-20) Calcium Level 8.7 mg/dl (8.5-10.1) Troponin I 0.021 ng/ml (0-0.045) Laboratory results reviewed by me Medications Administered Medications (Trade) Dose Ordered Sig/Satya Route Start Time Stop Time Status Last Admin Dose Admin Nitroglycerin (Nitrostat Tab) 0.4 mg NOW STAT SL 09/26/17 11:18 09/26/17 11:19 DC 09/26/17 11:43 0.4 MG Nitroglycerin (Nitrostat Tab) 0.4 mg PRN PRN SL 09/26/17 11:30 10/26/17 11:29 09/26/17 11:43 0.4 MG Clopidogrel Bisulfate (plAVix TAB) 300 mg NOW STAT PO 09/26/17 11:30 09/26/17 11:31 DC 09/26/17 11:42 300 MG ECG Indication: chest pain Rate (beats per minute): 64 Rhythm: sinus rhythm Findings: T-wave inversion (AVL), no ectopy, other (SD, QRS, and QTC intervals within normal limits. Mild early repolarization in the septal leads with no reciprocal changes. LVH. ) Comparison ECG Date: 07/08/2013 Change: Patient's electrocardiogram was interpreted by me. 1100: ECG #1. 1120: Repeat ECG reveals a sinus rhythm with a rate of 64 bpm. QRS and QTC intervals within normal limits. No change from previous ECG. TWI is new compared to prior ECG. ED Course 1104: The patient was evaluated in room C10. A complete history and physical exam was performed. 1118: Ordered Nitrostat Tab 0.4 mg SL. 1130: Ordered Plavix Tab 300 mg PO, Nitrostat Tab 0.4 mg SL. 1155: Patient's pain has improved from a 4/10 to a 1/10 with receiving two doses of sublingual nitro. Patient will be admitted for chest pain rule out ACS. He is agreeable. Hospitalist to admit. Medical Decision Patient's pain has improved from a 4/10 to a 1/10 with receiving two doses of sublingual nitro. Patient will be admitted for chest pain rule out ACS. He is agreeable. Hospitalist to admit. Medication Reconcilliation Current Medication List: was personally reviewed by me Blood Pressure Screening Patient's blood pressure: Elevated blood pressure Blood pressure disposition: Elevated BP felt to be situational Consults Time Called: 1200 Consulting Physician: Dr. Derek Neal Hospitalist Returned Call: 1204 Discussed the patient's case. The patient will be evaluated for further treatment and disposition. Impression Primary Impression: Chest pain Scribe Attestation The scribe's documentation has been prepared under my direction and personally reviewed by me in its entirety. I confirm that the note above accurately reflects all work, treatment, procedures, and medical decision making performed by me. The chart was completed utilizing [employer] Speech voice recognition software. Grammatical errors, random word insertions, pronoun errors, and incomplete sentences are an occasional consequence of this system due to software limitations, ambient noise, and hardware issues. Any formal questions or concerns about the content, text, or information contained within the body of this dictation should be directly addressed to the physician for clarification. Departure Information Dispostion Being Evaluated By Hospitalist Referrals Giorgio Salas D.ONeha (PCP) Patient Instructions My [facility] Problem Qualifiers Primary Impression: Chest pain Chest pain type: unspecified Qualified Codes: R07.9 - Chest pain, unspecified
--- NOTE | 2017-09-26 12:22 | History and Physical ---
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 , was seen recently by Cardiology on 09/12/17 for chest discomfort on and off her symptom been going on for 1 yr-happens intermittently , not related to exertion or position pt was scheduled for Dobutamine stress test at [facility] clinic on 09/19/17 , was cancelled due to Hypertensive urgency on presentation BP 210/104 today pt presents to ER with similar central chest heaviness , had similar episode yesterday at 5 pm pt was sitting on her chair -felt some one sitting on her chest , numbness on her rt arm and " funny sensation " on left jaw no nausea or SOB , associated with dizzy spell and lightheadedness Her chest discomfort persisted in ER , eased up after getting SL during my interview pt still rates her discomfort at 4/10 , but appeared to be comfortable Vitals stable in ER , Lab works including Jamar -unremarkable , EKG unchanged pt will be hospitalized for Observation and Cardiac work up Past Medical/Surgical History Medical Problems: (1) Asthma Status: Chronic (2) Benign hypertension Status: Chronic (3) Bronchitis Status: Chronic (4) Hypothyroidism Status: Chronic (5) Low back pain Status: Chronic (6) Pulmonary embolism Status: Chronic Family History Diabetes mellitus MOTHER FH: cancer FATHER FH: diabetes mellitus Social History Smoking Status: Never Smoker Marital Status: Occupational Status: retired Immunizations History of Influenza Vaccine: No Influenza Vaccine Date: Jun 03, 2009 History of Tetanus Vaccine?: unknown History of Pneumococcal: Yes Pneumococcal Date: May 17, 2005 History of Hepatitis B Vaccine: No Multi-Drug Resistant Organisms History of MDRO: No Allergies Coded Allergies: Aspirin (Verified Allergy, Unknown, UNKNOWN, 04/12/17) Sulfa Antibiotics (Verified Allergy, Unknown, Unknown, 04/12/17) Home Medications Scheduled Albuterol Hfa (Ventolin Hfa), 2 PUFFS INH QID Alendronate Sodium (Alendronate Sodium), 70 MG PO WK Amitriptyline Hcl (Elavil), 25 MG PO HS Atenolol (Tenormin), 100 MG PO DAILY Calcium Carbonate (Tums), 1-2 TABLETS PO PRN Cholecalciferol (Vitamin D3), 1,000 UNITS PO DAILY Duloxetine Hcl (Cymbalta), 60 MG PO DAILY Fluticasone Prop/Salmeterol (Advair Diskus 250/50 60 Dose), 1 PUFF INH BID Home O2 Therapy (Oxygen), 2 LITERS NA UD Levothyroxine Sodium (Synthroid), 25 MCG PO DAILY Simvastatin (Zocor), 20 MG PO QPM Sumatriptan Succinate (Imitrex), 100 MG PO PRN Warfarin Sod (Jantoven), 5 MG PO DAILY Review of Systems Constitutional: + fatigue Respiratory: + dyspnea on exertion Cardiovascular: + chest pain (intermittent chest heaviness, not related to exertion ) Abdomen: No pain, No nausea, No vomiting, No diarrhea, No constipation, No GI bleeding, No problem reported Musculoskeletal: + problem reported (chronic bilateral knee pain due to severe OA ) Genitourinary - Female: No dysuria, No urinary frequency, No urinary urgency, No urinary incontinence, No urinary retention, No hematuria, No dysmenorrhea, No menorrhagia, No metrorrhagia, No rash, No vaginal bleeding, No vaginal discharge, No vaginal itching, No vulvodynia, No , No problem reported Neurologic: + weakness (bilateral lower ext chronic weakness ), + numbness/ tingling (on rt arm associated with chest pain /discomfort ), + vertigo, + balance problems Psychiatric: + anxiety Physical Exam Vital Signs Date Time Temp Pulse Resp B/P (MAP) Pulse Ox O2 Delivery O2 Flow Rate FiO2 09/26/17 11:45 93 Room Air 09/26/17 11:45 94 Room Air 09/26/17 11:07 68 09/26/17 10:51 36.7 78 20 140/77 98 Room Air General Appearance: no apparent distress Eyes: normal inspection, sclerae normal ENT: normal ENT inspection, hearing grossly normal Neck: thyroid normal, no JVD, no carotid bruits, trachea midline Respiratory/Chest: chest non-tender, lungs clear, normal breath sounds, no respiratory distress, no accessory muscle use Cardiovascular: regular rate, rhythm, no JVD, normal peripheral pulses, + pertinent finding (chest wall tenderness on palpation of left upper ) Abdomen/GI: normal bowel sounds, non tender, soft Extremities/Musculoskelatal: + pedal edema (+ 1-2 ), + pertinent finding (+ edema 1-2/chronic venous statis change ) Neurologic/Psych: no motor/sensory deficits, alert, oriented x 3 Diagnostics Laboratory Results Results Past 24 Hours Test 09/26/17 11:10 Range/Units White Blood Count 5.75 4.8-10.8 K/uL Red Blood Count 3.43 4.2-5.4 M/uL Hemoglobin 11.8 12.0-16.0 g/dL Hematocrit 36.2 37-47 % Mean Corpuscular Volume 105.5 80-100 fL Mean Corpuscular Hemoglobin 34.4 25-34 pg Mean Corpuscular Hemoglobin Concent 32.6 32-36 g/dl Platelet Count 197 130-400 K/uL Mean Platelet Volume 10.1 7.4-10.4 fL Neutrophils (%) (Auto) 65.6 % Lymphocytes (%) (Auto) 27.1 % Monocytes (%) (Auto) 4.0 % Eosinophils (%) (Auto) 3.0 % Basophils (%) (Auto) 0.3 % Neutrophils # (Auto) 3.77 1.4-6.5 K/uL Lymphocytes # (Auto) 1.56 1.2-3.4 K/uL Monocytes # (Auto) 0.23 0.11-0.59 K/uL Eosinophils # (Auto) 0.17 0-0.5 K/uL Basophils # (Auto) 0.02 0-0.2 K/uL RDW Standard Deviation 51.8 36.4-46.3 fL RDW Coefficient of Variation 13.3 11.5-14.5 % Immature Granulocyte % (Auto) 0.0 % Immature Granulocyte # (Auto) 0.00 0.00-0.02 K/uL Prothrombin Time 12.6 9.0-12.0 SECONDS Prothromb Time International Ratio 1.2 0.9-1.1 Activated Partial Thromboplast Time 23.9 21.0-31.0 SECONDS Partial Thromboplastin Ratio 0.9 Sodium Level 137 136-145 mmol/L Potassium Level 3.7 3.5-5.1 mmol/L Chloride Level 104 98-107 mmol/L Carbon Dioxide Level 26 21-32 mmol/L Anion Gap 7.0 3-11 mmol/L Blood Urea Nitrogen 22 7-18 mg/dl Creatinine 1.15 0.60-1.20 mg/dl Est Creatinine Clear Calc Drug Dose 53.2 ml/min Estimated GFR () 53.9 Estimated GFR (Non- 46.5 BUN/Creatinine Ratio 18.9 10-20 Random Glucose 93 70-99 mg/dl Calcium Level 8.7 8.5-10.1 mg/dl Troponin I 0.021 0-0.045 ng/ml Diagnostic Radiology CHEST ONE VIEW PORTABLE CLINICAL HISTORY: Atypical chest pain COMPARISON STUDY: 07/05/2013 FINDINGS: The heart is the upper limits of normal in size. There is persistent moderate elevation right hemidiaphragm. There is no failure. There is no lobar consolidation. Linear by basilar opacities are felt to be atelectatic.[ There are no significant pleural effusions. IMPRESSION: No active disease in the chest. Persistent elevation of the right hemidiaphragm. Basilar atelectasis. EKG Vent. rate 64 BPM GA interval 184 ms QRS duration 116 ms QT/QTc 454/468 ms P-R-T axes 58 -17 67 Normal sinus rhythm Left ventricular hypertrophy with QRS widening Abnormal ECG When compared with ECG of 26-SEP-2017 11:00, (unconfirmed) No significant change was found Impression Assessment and Plan CHEST PAIN /HEAVINESS : having intermittent symptoms of past few months not related to exertion ,mentions it can happen any time of day /any time -she could be working on computer and get the discomfort recent ECHO at [facility] : 09/19/17 LV wall thickness severely increased ( concentric ) borderline diffuse left ventricular hypokinesis LV EF 50-54 % left ventricular diastolic function is mildly abnormal ( Grade 1) aortic valve mildly calcified , aortic stenosis absent There is heavy calcification of the posterior mitral valve annulus extending into the posterior leaflet Mitral Stenosis absent left atrium moderately enlarged -Dobutamine Stress test was aborted as BP was significantly high on presentation ( 201/104) pt's initial cardiac markers , EKG -no evidence of ischemia noted Tele admission serial cardiac markers ordered no ECHO ordered given recent report above Cardiology consult requested pt has hx of hypercoagulable state /presents with low INR 1.2 limited mobility at baseline , wheel chair bound high risk for thromboembolism /PE ordered for D Dimer , will need further testing if positive ( CTA chest /lower ext Doppler ) HTN : BP stable 140/77 cont Atenolol 100 mg daily given recurrent symptom of angina /episode of hypertensive urgency -may need alternate Beta hayden ( Metoprolol ) added ACEI -lisinopril 2.5 mg daily -given borderline low EF will defer to cardiology for adjustment of antihypertensives DEPRESSION : cont Cymbalta amitriptyline HS CKD STAGE 3 : Cr at baseline follow PRP LIMITED MOBILITY /CHRONIC BILAT KNEE ARTHRITIS : hx of tibial Plateau Fx in March 2017 , has been wheel chair bound since bilateral knee arthritis ordered for PT/OT eval 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 [id number] mutation hx of DVT/PE on Coumadin , follows with amy currya at [facility] INR sub therapeutic 1.2 -pt reports of taking Coumadin as directed cont Coumadin /Sub q heparin for DVT prophylaxis till INR therapeutic CODE STATUS : FULL CODE discussed with pt DVT PROPHYLAXIS : Coumadin /Sub q heparin for DVT prophylaxis till INR therapeutic DISPOSITION : expected to be discharged home when medically stable at baseline non ambulatory /uses wheel chair PT/OT eval Medicine follow up with Dr Giorgio Salas Cardiology follow up with Dr Barraza Level of Care Telemetry Resuscitation Status FULL RESUSCITATION VTE Prophylaxis Given or contraindicated: Unfractionated heparin SQ, Warfarin (Coumadin) Additional Copies To Giorgio Salas, D.O. Kg Barraza D.O.
[2017-09-26] MEDS ORDERED: ONDANSETRON INJ 2 MG/ML 2 ML VIAL IV PRN (12:45)
[2017-09-26] MEDS ORDERED: SUMATRIPTAN SUCC TAB 100 MG TAB PO PRN (12:45)
[2017-09-26] MEDS ORDERED: ZOLPIDEM TARTRATE 5 MG TAB PO PRN (12:45)
[2017-09-26] MEDS ORDERED: POLYETHYLENE (MIRALAX) 17 GM PACK PO PRN (12:45)
[2017-09-26] MEDS ORDERED: ALUMINUM/MAGNESIUM/SIMETH (MAALOX MAX) 30 ML UDC PO PRN (12:45)
[2017-09-26] MEDS ORDERED: ALBUTEROL HFA 8 GM INHALER INH PRN (12:45)
[2017-09-26] MEDS ORDERED: MAGNESIUM HYDROXIDE SUSP 30 ML UDC PO PRN (12:45)
[2017-09-26] MEDS ORDERED: IV FLUIDS COMPLETED PRN (13:15)
[2017-09-26] MEDS ORDERED: OPTIRAY 320 IV PRN (15:00)
--- NOTE | 2017-09-26 15:17 | Progress Note ---
Progress Note Date of Service Sep 26, 2017. Progress Note ATTENDING ADDENDUM : D dimer elevated 2240 high risk for DVT /PE -non ambulatory /sub therapeutic INR /hypercoagulable status ordered for Lower ext Doppler /CT chest with contrast to assess for DVT/PE will need IV heparin bridge therapy if any of the above study is positive for clots
[2017-09-26] MEDS ORDERED: WARFARIN SOD 5 MG TAB PO SCH (16:00)
[2017-09-26] MEDS ORDERED: WARFARIN SOD 7.5 MG TAB PO SCH (16:00)
[2017-09-26 16:12] VITALS: BP 197/106; PULSE 84; TEMP 36.4; O2SAT 96
--- NOTE | 2017-09-26 16:16 | DIAGNOSTIC IMAGING REPORT ---
CT ANGIOGRAM OF THE CHEST CLINICAL HISTORY: Atypical chest pain. COMPARISON STUDY: Chest CT dated 05/18/2010. Chest x-ray dated 09/26/2017. Abdominal CT dated 07/05/2013. TECHNIQUE: Following the IV administration of 105 cc of Optiray 320, CT angiogram of the chest was performed from the upper abdomen to the thoracic inlet utilizing the pulmonary embolus protocol. Images are reviewed in the axial, sagittal, and coronal planes. 3-D MIPS images are created and assessed. IV contrast was administered without complication. A dose lowering technique was utilized adhering to the principles of ALARA. CT DOSE: 664.33 mGy.cm FINDINGS: Thyroid: Imaged portions of the thyroid gland are normal in size and attenuation. A subcentimeter low-attenuation nodule is seen in the right lobe. Thoracic aorta: There is mild atherosclerotic calcification of the thoracic aorta, which is normal in caliber and demonstrates standard 3-vessel arch anatomy. No dissection is seen. Pulmonary vasculature: The pulmonary trunk is normal in caliber. There are no filling defects identified in main, lobar, or segmental pulmonary branches to suggest pulmonary embolus. Heart: The heart is top normal in size and without pericardial effusion. The coronary arteries and mitral annulus are densely calcified. Lungs and pleural spaces: There is chronic elevation of the right hemidiaphragm with near complete atelectasis of the right middle lobe as well as segmental atelectasis of the right lower lobe. No airspace consolidation is seen typical for pneumonia and there is no pleural effusion. The trachea and central airways are clear. Mediastinum: There is no mediastinal lymphadenopathy. Veronica: Clear. Axillae: There is no axillary lymphadenopathy. Upper abdomen: The partially visualized kidneys demonstrate cortical atrophy. A chronic appearing peripherally calcified subcapsular hematoma is noted in the right upper pole and measures approximately 5.5 x 4 cm. This is been present dating back to 2012. The gallbladder is surgically absent. The pancreas is markedly atrophic. Skeletal structures: The skeletal structures are osteopenic. No lytic or blastic bony lesions are seen. IMPRESSION: 1. There is no evidence of pulmonary embolus in the main, lobar, or segmental pulmonary arteries. 2. There is no airspace consolidation typical for pneumonia or pleural effusion. 3. There is chronic elevation of the right hemidiaphragm with near-complete atelectasis of the right lower lung. 4. 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 5. Additional findings as above. Electronically signed by: Vladislav Curiel M.D. 09/26/2017 4:15 PM Dictated Date/Time: 09/26/2017 4:05 PM
[2017-09-26 17:00] VITALS: Ht 165.1 cm; Wt 113.9 kg
--- NOTE | 2017-09-26 17:35 | Progress Note ---
Progress Note Date of Service Sep 26, 2017. Progress Note ATTENDING ADDENDUM : CT CHEST WITH CONTRAST RESULT REVIEWED : 1. There is no evidence of pulmonary embolus in the main, lobar, or segmental pulmonary arteries. 2. There is no airspace consolidation typical for pneumonia or pleural effusion. 3. There is chronic elevation of the right hemidiaphragm with near-complete atelectasis of the right lower lung. 4. 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 -NO PE cont Coumadin addition of Suq heparin till INR ~2
[2017-09-26 17:43] VITALS: BP 167/95
--- NOTE | 2017-09-26 17:57 | Cardiology Consultation ---
Cardiology Consultation Date of Consultation: Sep 26, 2017 History of Present Illness Anh Breaux is a 77 year old female seen in cardiology consultation per the request of Dr. Reed for the evaluation of chest discomfort. I had recently seen the patient in outpatient consultation on 09/12/17 for assessment of similar chest discomfort. The patient endorses a history of on and off again chest pain episodes that have been happening for one year. She describes that they can occur anytime including when she is sitting playing a computer game. When I had recently seen her as an outpatient a dobutamine stress echocardiogram was planned. When she arrived however to have this performed as an outpatient on 09/19/17, she was found to have significant hypertension and therefore a resting echocardiogram was performed in stress test was postponed pending further assessment. Over the last few days, she has had waxing and waning episodes of high blood pressure and her chest discomfort episodes have increased in terms of frequency and severity. Predominantly, she is wheelchair-bound related to severe debilitating arthritis in her knees. In March 2017 she suffered a mechanical fall with resultant left tibial plateau fracture which has been managed conservatively and has caused additional difficulty with her gait. She had a remote DVT over 20 years ago and has been on chronic anticoagulation with Coumadin ever since. 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 At present during my assessment of her in room 286-1 she is free of symptoms. Her EKG on presentation today was within normal limits and she has a charles zone borderline elevation in her troponin. Her blood pressure is elevated on one reading today is improved at present. Past Medical/Surgical History Problem List: Medical Problems: (1) Asthma (2) Benign hypertension (3) Bronchitis (4) Hematoma (5) Hypothyroidism (6) Low back pain (7) Pulmonary embolism (8) Symptomatic anemia History Past Medical History: 1. History of past DVT and pulmonary embolism, hypercoagulable state, prothrombin gene mutation, chronic and likely should Coumadin 2. Osteoarthritis 3. Hypertension 4. Right renal cyst 5. Stage III chronic disease Past Surgical History: 1. Sigmoid colon resection 2009 2. Appendectomy 3. Cataract surgery 4. Cholecystectomy 5. Total abdominal hysterectomy 1979 6. Colonoscopy Social History: She is , her spouses named Shaq. She previously worked in [employer]. She denies alcohol use. She is a nonsmoker. Family History: Mother: Alive at age 98 with history of hypertension and strokes Father: at age 42, lung cancer 2 brothers with no known heart disease Review Of Systems A 10 point review of systems was reviewed and is negative description of the above Allergies Coded Allergies: Aspirin (Verified Allergy, Unknown, UNKNOWN, 04/12/17) Sulfa Antibiotics (Verified Allergy, Unknown, Unknown, 04/12/17) Medications Reported Home Medications Medications Dose Route/Sig Max Daily Dose Days Date Category Jantoven (Warfarin Sodium) 5 Mg Tab 5 Mg PO DAILY 09/26/17 Reported Alendronate Sodium 70 Mg Tab 70 Mg PO WK 09/26/17 Reported Tenormin (Atenolol) 100 Mg Tab 100 Mg PO DAILY 09/26/17 Reported Cymbalta (Duloxetine Hcl) 60 Mg Cap 60 Mg PO DAILY 04/13/17 Reported Synthroid (Levothyroxine Sodium) 25 Mcg Tab 25 Mcg PO DAILY 04/12/17 Reported Advair Diskus 250/50 60 Dose (Fluticasone Prop/Salmeterol) 1 Ea Aerp 1 Puff INH BID 04/12/17 Reported Ventolin Hfa (Albuterol) 200 Puffs/[id number] Mcg Aers 2 Puffs INH QID 04/12/17 Reported Vitamin D3 (Cholecalciferol) 1,000 Inter.unit Tab 1,000 Units PO DAILY 04/12/17 Reported Elavil (Amitriptyline Hcl) 25 Mg Tab 25 Mg PO HS 04/12/17 Reported Imitrex (Sumatriptan Succinate) 100 Mg Tab 100 Mg PO PRN 07/05/13 Reported Tums (Calcium Carbonate) 500 Mg Chew 1-2 Tablets PO PRN 05/02/10 Reported Oxygen Gas 2 Liters NA UD 05/02/10 Reported Zocor (Simvastatin) 20 Mg Tab 20 Mg PO QPM 04/07/10 Reported Physical Exam Vital Signs (Last 8hrs): Last 8 Hrs Date Time Temp Pulse Resp B/P (MAP) Pulse Ox O2 Delivery O2 Flow Rate FiO2 09/26/17 16:12 36.4 84 20 197/106 (136) 96 Room Air 09/26/17 15:47 68 16 115/72 98 Room Air 09/26/17 14:40 70 16 105/55 98 Room Air 09/26/17 11:45 93 Room Air 09/26/17 11:45 94 Room Air 09/26/17 11:07 68 09/26/17 10:51 36.7 78 20 140/77 98 Room Air General Appearance: Alert and Oriented x3. NAD. Head: Normocephalic Atraumatic. Eyes: PERRLA, EOMI, conjunctiva and sclera clear Neck: Supple. No carotid bruits noted. No JVD. No HJD. Respiratory: Breath sounds clear to auscultation bilaterally. No w/r/r. Cardiovascular: Reg rate and rhythm. S1 and S2 noted. No murmurs, rubs, gallops. PMI non displace. Abdomen: Normal bowel sounds, soft nontender. no abdominal bruits. Extremities: No edema, no clubbing or cyanosis, chronic venous stasis changes Neuro: No focal deficits. Psychiatric: Normal affect. Data Last Resulted 09/26/17 11:10 Red Blood Count 3.43, Mean Corpuscular Volume 105.5, Mean Corpuscular Hemoglobin 34.4, Mean Corpuscular Hemoglobin Concent 32.6, Mean Platelet Volume 10.1, Neutrophils (%) (Auto) 65.6, Lymphocytes (%) (Auto) 27.1, Monocytes (%) ( Auto) 4.0, Eosinophils (%) (Auto) 3.0, Basophils (%) (Auto) 0.3, Neutrophils # ( Auto) 3.77, Lymphocytes # (Auto) 1.56, Monocytes # (Auto) 0.23, Eosinophils # ( Auto) 0.17, Basophils # (Auto) 0.02 Last Resulted 09/26/17 11:10 Past 24 Hours Test 09/26/17 11:10 Range/Units Prothromb Time International Ratio 1.2 H 0.9-1.1 Prothrombin Time 12.6 H 9.0-12.0 SECONDS Troponin I 0.021 0-0.045 ng/ml 2 EKG tracings were performed today revealing sinus rhythm in the 64 bpm range without any significant ST changes Summary of transthoracic echocardiogram performed as an outpatient on 09/19/17: The left ventricular cavity size is normal. The LV wall thickness is severely increased (concentric). There is borderline diffuse left ventricular hypokinesis. The qualitative LV ejection fraction is 50-54% (normal). The left ventricular diastolic function is mildly abnormal (grade I). The aortic valve is mildly calcified. Aortic stenosis is absent. There is heavy calcification of the posterior mitral valve annulus extending into the posterior leaflet Mitral stenosis is absent. Mild mitral regurgitation is present. The left atrium is moderately enlarged. CT angiogram of the chest performed today to: Per radiology report 1. There is no evidence of pulmonary embolism in the main, lobar, or segmental pulmonary arteries. 2. There is no airspace consolidation typical for pneumonia or pleural effusion. 3. There is chronic elevation of the right hemidiaphragm with near complete atelectasis of the right lower lung. 4. Suspected chronic subcapsular hematoma of the right kidney has not changed significantly compared to 2013 5. The heart is top normal size without pericardial effusion. The coronary arteries and mitral annulus are densely calcified Assessment & Plan Impression: 77-year-old female 1. Continued episodic chest discomfort, patient also has vague symptoms of recent lightheadedness as well as exertional shortness of breath. 2. Dense coronary artery calcification noted on CT scan of the chest. 3. Hypertension, recent labile blood pressure readings 4. Dyslipidemia, for which patient is on simvastatin 5. Remote history of DVT, PE, hypercoagulable state, patient is therefore chronic anticoagulant shunt Coumadin. INR today is subtherapeutic, however CT scan was negative for PE Discussion/medications: The patient has ongoing concerns regarding this chest discomfort. My initial assessment when I had seen her just over a week ago was that was atypical in character, occurring at rest, however the patient is not very physically active to begin with. Her physical activity is severely limited by her arthritis as well as her left tibial plateau fracture. We'll plan on continuing her outpatient medications. Will trend her cardiac enzymes and determine next best step regarding ischemic workup with pharmacologic stress testing versus cardiac catheterization as her hospitalization develops.
--- NOTE | 2017-09-26 18:28 | DIAGNOSTIC IMAGING REPORT ---
ULTRASOUND BILATERAL LOWER EXTREMITY VENOUS CLINICAL HISTORY: Elevated d-dimer. COMPARISON STUDY: No priors. TECHNIQUE: Real-time, grayscale, and color Doppler sonography of the deep veins of the right and left lower extremity was performed from the inguinal crease to the calf. Compression and augmentation were utilized. FINDINGS: There is no sonographic evidence of deep venous thrombosis identified in the right or left lower extremity. The common femoral, superficial femoral, and popliteal veins are patent and normally compressible bilaterally. The greater saphenous vein and the profunda femoris vein at the junction with the common femoral vein are clear in both legs. The visualized calf veins are patent bilaterally. A popliteal cyst on the right measures 7.7 x 2.3 x 6.8 cm. A popliteal cyst on the left measures 3.1 x 0.6 x 1.5 cm. IMPRESSION: 1. There is no sonographic evidence of deep venous thrombosis identified in the right or left lower extremity. 2. Bilateral popliteal cysts. Electronically signed by: Vladislav Curiel M.D. 09/26/2017 6:27 PM Dictated Date/Time: 09/26/2017 6:26 PM
[2017-09-26 19:57] VITALS: BP 146/61; PULSE 58; TEMP 36.5; O2SAT 100
[2017-09-26] MEDS: AMITRIPTYLINE HCL 25 MG TAB PO SCH (21:09)
[2017-09-26] MEDS: SIMVASTATIN 20 MG TAB PO SCH (21:09)
[2017-09-26] MEDS: FLUTICASONE/SALMETEROL 250/50 (ADVAIR) 14 PUFF/1 INHALER INH SCH (21:09)
[2017-09-26] MEDS: HEPARIN SOD 5000 UNIT/0.5 ML CARP SQ SCH (21:12)
[2017-09-26 23:35] VITALS: BP 154/77; PULSE 72; TEMP 36.8; O2SAT 93
[2017-09-27] VITALS (9 sets, daily range): BP systolic 141–179; BP diastolic 65–84; PULSE 65–75; TEMP 36.4–36.9; O2SAT 90–98
[2017-09-27] MEDS: HEPARIN SOD 5000 UNIT/0.5 ML CARP SQ SCH ×2 (06:07→14:00)
[2017-09-27] MEDS: LEVOTHYROXINE 25 MCG TAB PO SCH (06:08)
[2017-09-27 06:09] LABS: HEMATOCRIT 36.6 % (37-47); HEMOGLOBIN 12.1 g/dL (12.0-16.0); MEAN CELL VOLUME 103.4 fL (80-100); MEAN CORPUSCULAR HEMOGLOBIN 34.2 pg (25-34); MEAN CORPUSCULAR HGB CONC 33.1 g/dl (32-36); MEAN PLATELET VOLUME 9.8 fL (7.4-10.4); PLATELET COUNT 201 K/uL (130-400); RED CELL DISTRIBUTION WIDTH CV 13.4 % (11.5-14.5); RED CELL DISTRIBUTION WIDTH SD 50.8 fL (36.4-46.3); WHITE BLOOD COUNT 6.23 K/uL (4.8-10.8)
[2017-09-27 06:19] LABS: INR 1.2 (0.9-1.1)
[2017-09-27 06:26] LABS: CALCIUM 8.7 mg/dl (8.5-10.1); CREATININE 1.11 mg/dl (0.60-1.20); POTASSIUM 3.9 mmol/L (3.5-5.1)
[2017-09-27] MEDS ORDERED: LISINOPRIL 2.5 MG TAB PO SCH (09:00)
[2017-09-27] MEDS ORDERED: PERFLUTREN LIPID MICROSPHERE (DEFINITY) IV ONE (10:08)
--- NOTE | 2017-09-27 12:50 | Cardiology Follow-Up ---
Subjective General Date of Service: Sep 27, 2017. Chief Complaint: follow up chest pain, shortness of breath Pt evaluation today including: conversation w/ patient, physical exam History of Present Illness The patient is a 77 year old female seen in follow up. She states she had a difficult night. No briseida chest pain. Just ill feeling. BP were high but have trended toward improvement. Troponin was mildly elevated this am at 0.048 on third reading. Repeat is pending. Currently pt is free of chest pain or shortness of breath. EKG this am , limited by artifact, but T wave inversions present in inferior leads. Allergies Coded Allergies: Aspirin (Verified Allergy, Unknown, UNKNOWN, 04/12/17) Sulfa Antibiotics (Verified Allergy, Unknown, Unknown, 04/12/17) Social History Smoking Status: Unknown if Ever Smoked Hx Tobacco Use In Past Year?: No Hx Alcohol Use - Type And Amou: No Hx Substance Use - Type And Am: No Problem List Medical Problems: (1) Chest pain Status: Acute (2) Hematoma Status: Acute Physical Exam Vital Signs Last Vital Signs Documentation Date Time Temp Pulse Resp B/P (MAP) Pulse Ox O2 Delivery O2 Flow Rate FiO2 09/27/17 12:33 Room Air 09/27/17 08:07 36.8 68 18 158/70 (99) 95 Physical Exam Constitutional: Level of Distress: NAD Head: normocephalic ENMT: normal ENT inspection, TMs normal Lungs: Auscultation: CTA except as noted, no wheezing, no rales/crackles Cardiovascular: Heart Auscultation: RRR, no murmurs, no rubs, no gallops Abdomen: Bowel Sounds: normal Inspection & Palpation: non-distended, no tenderness, guarding & rebound Extremities: no cyanosis, no edema Neurologic: Gait & Station: pertinent finding (no focal deficits ) Assessment and Plan Assessment and Plan Impression: 77-year-old female 1. Episodic chest discomfort, patient also has vague symptoms of recent lightheadedness as well as exertional shortness of breath. -mild EKG changes, mild troponin elevation 2. Dense coronary artery calcification noted on CT scan of the chest. 3. Hypertension, recent labile blood pressure readings 4. Dyslipidemia, for which patient is on simvastatin 5. Remote history of DVT, PE, hypercoagulable state, patient is therefore chronic anticoagulant shunt Coumadin. INR today is subtherapeutic, however CT scan was negative for PE 6. Labile HTN Plan: Pts symtpoms are perhaps medicated by elevated BP . Has high episodic high BP recently as outpatient. BP was normal when she saw me in the office for consult last month, but home readings have bee high and controlled at times. Will DC atenolol and transition to lisinopril. Had planned catheterization today, however , pt delayed due to emergent cases, and given BP readings I feel it is prudent to advance her diet, work on her BP and reassess timing of possible catheterization on Saturday if BP better. Will hold coumadin and start heparin gtt. Laboratory Results Last 24 Hours Test 09/26/17 19:24 09/27/17 00:12 09/27/17 05:52 09/27/17 12:21 Troponin I 0.016 ng/ml 0.029 ng/ml 0.048 ng/ml White Blood Count 6.23 K/uL Red Blood Count 3.54 M/uL Hemoglobin 12.1 g/dL Hematocrit 36.6 % Mean Corpuscular Volume 103.4 fL Mean Corpuscular Hemoglobin 34.2 pg Mean Corpuscular Hemoglobin Concent 33.1 g/dl RDW Standard Deviation 50.8 fL RDW Coefficient of Variation 13.4 % Platelet Count 201 K/uL Mean Platelet Volume 9.8 fL Prothrombin Time 12.2 SECONDS Prothromb Time International Ratio 1.2 Sodium Level 139 mmol/L Potassium Level 3.9 mmol/L Chloride Level 105 mmol/L Carbon Dioxide Level 28 mmol/L Anion Gap 6.0 mmol/L Blood Urea Nitrogen 20 mg/dl Creatinine 1.11 mg/dl Est Creatinine Clear Calc Drug Dose 55.2 ml/min Estimated GFR () 56.3 Estimated GFR (Non- 48.5 BUN/Creatinine Ratio 18.0 Random Glucose 79 mg/dl Calcium Level 8.7 mg/dl Triglycerides Level 131 mg/dl Cholesterol Level 205 mg/dl HDL Cholesterol 86 mg/dl LDL Cholesterol, Calculated 93 mg/dl VLDL Cholesterol, Calculated 26 mg/dl Cholesterol/HDL Ratio 2.4 Thyroid Stimulating Hormone (TSH) 2.270 uIu/ml
[2017-09-27] MEDS: ASPIRIN 81 MG ECTAB PO SCH (13:08)
[2017-09-27] MEDS: CALCIUM CARBONATE 500 MG CHEWABLE PO SCH (13:08)
[2017-09-27] MEDS: CHOLECALCIFEROL 1000 INTER.UNIT TAB PO SCH (13:08)
[2017-09-27] MEDS: DULOXETINE HCL 60 MG CAP PO SCH (13:08)
[2017-09-27] MEDS: FLUTICASONE/SALMETEROL 250/50 (ADVAIR) 14 PUFF/1 INHALER INH SCH ×2 (13:08→20:51)
--- NOTE | 2017-09-27 13:56 | ECHOCARDIOGRAM REPORT ---
*NOTICE TO RECEIVING CONSTITUTION PARTY AGENCY This information is strictly Confidential and protected under [place] law. [place] law prohibits you from making any further disclosure of this information unless further disclosure is expressly permitted by the written consent of the person to whom it pertains or is authorized by law. A general authorization for the release of medical or other information is not sufficient for this purpose. Hospital accepts no responsibility if the information is made available to any other person, INCLUDING THE PATIENT. Interpretation Summary * Name: BEV ALDRIDGE Study Date: 09/27/2017 08:51 AM BP: 169/78 mmHg * Patient Location: [facility]\S\N286\S\1 HR: 71 * : 1940 (M/d/yyyy) Gender: Female Height: 65 in * Age: 77 yrs Ethnicity: CA Weight: 251 lb * Ordering Physician: Kg Barraza * Referring Physician: Self, Referred * Performed By: Promise Peguero RDCS * * Reason For Study: Chest pain * BSA: 2.2 m2 * -- Conclusions -- * There is borderline global hypokinesis of the left ventricle. * Left ventricular systolic function is low normal. * Ejection Fraction = 50-55%. * The left atrium is mildly dilated. * There is severe mitral annular calcification. * Significant mitral regurgitation is absent. * There is no mitral valve stenosis. * Grade I diastolic dysfunction, (abnormal relaxation pattern). Procedure Details * A complete two-dimensional transthoracic echocardiogram was performed (2D, M-mode, Doppler and color flow Doppler). * A contrast injection of Definity was performed to improve assessment of LV function. * Contrast was injected into an intravenous site in the left arm. * One vial of Definity ultrasound contrast was diluted in normal saline to a total volume of 10 ml. A total of '3' ml of solution was administered during imaging. * Lot # [id number] of Definity utilized for procedure. * Expiration date 1 OCT 07. * The attending nurse who injected the contrast agent was Elli Acevedo RN. Left Ventricle * The left ventricle is normal in size. * There is normal left ventricular wall thickness. * Ejection Fraction = 50-55%. * Left ventricular systolic function is low normal. * There is borderline global hypokinesis of the left ventricle. Right Ventricle * The right ventricle is normal size. * The right ventricular systolic function is normal as assessed by tricuspid annular plane systolic excursion (TAPSE) (normal >1.5 cm). Atria * The left atrium is mildly dilated. * Right atrial size is normal. * There is no evidence of atrial septal defect, but resolution does not allow assessment for a patent foramen ovale. Mitral Valve * There is severe mitral annular calcification. * There is no mitral valve stenosis. * Significant mitral regurgitation is absent. Tricuspid Valve * The tricuspid valve is normal. * There is no tricuspid stenosis. * Significant tricuspid regurgitation is absent. * Doppler findings do not suggest pulmonary hypertension. Aortic Valve * The aortic valve is trileaflet. * Aortic valve sclerosis moderate, without significant aortic valvular stenosis. * Aortic stenosis is absent. * There is no significant aortic regurgitation. Pulmonic Valve * The pulmonary valve is not well seen, but the Doppler examination is normal without significant regurgitation or stenosis. Great Vessels * The aortic root and proximal ascending aorta are normal sized. Pericardium/Pleural * There is no pericardial effusion. Great Vessels * Normal inferior vena cava diameter and respiratory variation suggests normal central venous pressure. Left Ventricular Diastolic Function * Grade I diastolic dysfunction, (abnormal relaxation pattern). MMode 2D Measurements and Calculations IVSd 0.90 cm LVIDd 4.1 cm LVIDs 3.0 cm LVPWd 1.7 cm IVS/LVPW 0.54 FS 26.2 % EDV(Teich) 73.8 ml ESV(Teich) 35.6 ml EF(Teich) 51.8 % EDV(cubed) 68.4 ml ESV(cubed) 27.6 ml EF(cubed) 59.7 % LV mass(C)d 187.8 grams LV mass(C)dI 86.2 grams/m\S\2 SV(Teich) 38.2 ml SI(Teich) 17.5 ml/m\S\2 SV(cubed) 40.9 ml SI(cubed) 18.8 ml/m\S\2 Ao root diam 2.7 cm Ao root area 5.6 cm\S\2 ACS 1.5 cm LA dimension 3.3 cm asc Aorta Diam 3.1 cm LA/Ao 1.2 LVAd ap4 31.7 cm\S\2 LVLd ap4 6.9 cm EDV(MOD-sp4) 116.0 ml EDV(sp4-el) 123.3 ml LVAs ap4 23.2 cm\S\2 LVLs ap4 6.7 cm ESV(MOD-sp4) 63.2 ml ESV(sp4-el) 68.1 ml EF(MOD-sp4) 45.5 % EF(sp4-el) 44.8 % LVAd ap2 40.2 cm\S\2 LVLd ap2 8.2 cm EDV(MOD-sp2) 157.3 ml EDV(sp2-el) 167.0 ml LVAs ap2 26.7 cm\S\2 LVLs ap2 7.0 cm ESV(MOD-sp2) 81.7 ml ESV(sp2-el) 86.7 ml EF(MOD-sp2) 48.1 % EF(sp2-el) 48.1 % LVLd %diff 16.0 % EDV(MOD-bp) 147.1 ml LVLs %diff 4.1 % ESV(MOD-bp) 71.0 ml EF(MOD-bp) 51.7 % SV(MOD-sp4) 52.8 ml SI(MOD-sp4) 24.2 ml/m\S\2 SV(MOD-sp2) 75.6 ml SI(MOD-sp2) 34.7 ml/m\S\2 SV(MOD-bp) 76.1 ml SI(MOD-bp) 34.9 ml/m\S\2 SV(sp4-el) 55.2 ml SI(sp4-el) 25.3 ml/m\S\2 SV(sp2-el) 80.3 ml SI(sp2-el) 36.8 ml/m\S\2 Doppler Measurements and Calculations MV E max erica 65.5 cm/sec MV A max erica 126.6 cm/sec MV E/A 0.52 MV dec time 0.30 sec Ao V2 max 171.9 cm/sec Ao max PG 11.8 mmHg Ao max PG (full) 6.9 mmHg LV V1 max PG 4.9 mmHg LV V1 max 110.6 cm/sec PA V2 max 122.2 cm/sec PA max PG 6.0 mmHg PA acc slope 721.2 cm/sec\S\2 PA acc time 0.12 sec TR max erica 237.0 cm/sec PA pr(Accel) 25.1 mmHg
--- NOTE | 2017-09-27 14:48 | Progress Note ---
Internal Med Progress Note Date of Service: Sep 27, 2017. Provider Documentation: SUBJECTIVE: The patient was seen and examined Admitted with Chest pain and labile Blood pressure No more chest pain OBJECTIVE: Vital Signs-as noted below Exam: General-No distress at rest Eyes-normal ENT-normal Neck-supple Lungs-clear to ausucltate bilaterally Heart-regular,no murmur appreciated Abdomen-Benign,no masses,bowel sound present Extremities-Trace edema bilaterally Neuro-AAOx3 Lab data as noted below. ASSESSMENT & PLAN: CHEST PAIN /HEAVINESS : Intermittent symptoms of past few months Not related to exertion ,mentions it can happen any time of day /any time -she could be working on computer and get the discomfort Noted to have Labile BP with Headache Troponin mildly elevated ECHO at [facility] : 09/19/17 LV wall thickness severely increased ( concentric ) borderline diffuse left ventricular hypokinesis LV EF 50-54 % Left ventricular diastolic function is mildly abnormal ( Grade 1) aortic valve mildly calcified , aortic stenosis absent There is heavy calcification of the posterior mitral valve annulus extending into the posterior leaflet Mitral Stenosis absent left atrium moderately enlarged ECHO om 09/27/17::There is borderline global hypokinesis of the left ventricle. * Left ventricular systolic function is low normal. * Ejection Fraction = 50-55%. * The left atrium is mildly dilated. * There is severe mitral annular calcification. * Significant mitral regurgitation is absent. * There is no mitral valve stenosis. * Grade I diastolic dysfunction, (abnormal relaxation pattern). Dobutamine Stress test was aborted as BP was significantly high on presentation ( 201/104) Appreciate cardiology input BP control now and Cardiac Cath on Saturday Hypercoagulable state /presents with low INR 1.2 limited mobility at baseline , wheel chair bound high risk for thromboembolism /PE CTA-negative for any Pul Embolism Continue anticoagulation-with heparin HTN : Labile BP stable 140/77 cont Atenolol 100 mg daily given recurrent symptom of angina /episode of hypertensive urgency -may need alternate Beta hayden ( Metoprolol ) added ACEI -lisinopril 2.5 mg daily -given borderline low EF No BB and increase ACEI DEPRESSION : Cont Cymbalta Amitriptyline HS CKD STAGE 3 : Cr at baseline follow PRP LIMITED MOBILITY /CHRONIC BILAT KNEE ARTHRITIS : hx of tibial Plateau Fx in March 2017 , has been wheel chair bound since bilateral knee arthritis ordered for PT/OT eval 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 [id number] mutation hx of DVT/PE Coumadin is on Hold fro cath on Saturday Continue Heparin CODE STATUS : FULL CODE discussed with pt DISPOSITION : expected to be discharged home when medically stable at baseline non ambulatory /uses wheel chair PT/OT eval Vital Signs: Date Time Temp Pulse Resp B/P (MAP) Pulse Ox O2 Delivery O2 Flow Rate FiO2 09/27/17 13:27 36.6 65 16 168/81 (110) 95 09/27/17 13:11 75 18 157/72 (100) 95 Room Air 09/27/17 12:33 Room Air 09/27/17 12:00 18 09/27/17 08:49 Room Air 09/27/17 08:07 36.8 68 18 158/70 (99) 95 09/27/17 04:52 71 169/78 (108) 09/27/17 04:01 98 Room Air 09/27/17 02:35 36.4 69 18 175/75 (108) 96 Room Air 09/26/17 23:46 Room Air 09/26/17 23:35 36.8 72 18 154/77 (102) 93 Room Air 09/26/17 20:09 Room Air 09/26/17 19:57 36.5 58 20 146/61 (89) 100 Room Air 09/26/17 17:43 167/95 (119) 09/26/17 17:00 Room Air 09/26/17 16:12 36.4 84 20 197/106 (136) 96 Room Air 09/26/17 15:47 68 16 115/72 98 Room Air 09/26/17 14:40 70 16 105/55 98 Room Air Lab Results: Results Past 24 Hours Test 09/26/17 19:24 09/27/17 00:12 09/27/17 05:52 09/27/17 12:21 Range/Units Troponin I 0.016 0.029 0.048 0.048 0-0.045 ng/ml White Blood Count 6.23 4.8-10.8 K/uL Red Blood Count 3.54 4.2-5.4 M/uL Hemoglobin 12.1 12.0-16.0 g/dL Hematocrit 36.6 37-47 % Mean Corpuscular Volume 103.4 80-100 fL Mean Corpuscular Hemoglobin 34.2 25-34 pg Mean Corpuscular Hemoglobin Concent 33.1 32-36 g/dl RDW Standard Deviation 50.8 36.4-46.3 fL RDW Coefficient of Variation 13.4 11.5-14.5 % Platelet Count 201 130-400 K/uL Mean Platelet Volume 9.8 7.4-10.4 fL Prothrombin Time 12.2 9.0-12.0 SECONDS Prothromb Time International Ratio 1.2 0.9-1.1 Sodium Level 139 136-145 mmol/L Potassium Level 3.9 3.5-5.1 mmol/L Chloride Level 105 98-107 mmol/L Carbon Dioxide Level 28 21-32 mmol/L Anion Gap 6.0 3-11 mmol/L Blood Urea Nitrogen 20 7-18 mg/dl Creatinine 1.11 0.60-1.20 mg/dl Est Creatinine Clear Calc Drug Dose 55.2 ml/min Estimated GFR () 56.3 Estimated GFR (Non- 48.5 BUN/Creatinine Ratio 18.0 10-20 Random Glucose 79 70-99 mg/dl Calcium Level 8.7 8.5-10.1 mg/dl Triglycerides Level 131 0-150 mg/dl Cholesterol Level 205 0-200 mg/dl HDL Cholesterol 86 mg/dl LDL Cholesterol, Calculated 93 mg/dl VLDL Cholesterol, Calculated 26 mg/dl Cholesterol/HDL Ratio 2.4 Thyroid Stimulating Hormone (TSH) 2.270 0.300-4.500 uIu/ml
[2017-09-27] MEDS: HEPARIN 25,000 UNIT/500ML D5W 500 ML IV PRN (17:30)
[2017-09-27] MEDS: AMITRIPTYLINE HCL 25 MG TAB PO SCH (20:51)
[2017-09-27] MEDS: SIMVASTATIN 20 MG TAB PO SCH (20:51)
[2017-09-27] MEDS: CARVEDILOL 12.5 MG TAB PO SCH (20:52)
[2017-09-27] MEDS ORDERED: LISINOPRIL 5 MG TAB PO ONE (21:00)
[2017-09-28 00:11] LABS: PTT PATIENT 46.3 SECONDS (21.0-31.0)
[2017-09-28] MEDS: HEPARIN 25,000 UNIT/500ML D5W 500 ML IV PRN ×2 (02:54→15:13)
[2017-09-28] MEDS ORDERED: HEPARIN IV BOLUS 3,000 UNIT in SYRINGE 0 ML IV ONE (03:00)
[2017-09-28 03:29] VITALS: BP 145/71; PULSE 68; TEMP 36.8; O2SAT 94
[2017-09-28] MEDS: ACETAMINOPHEN 325 MG TAB PO PRN ×2 (03:38→22:46)
[2017-09-28] MEDS: LEVOTHYROXINE 25 MCG TAB PO SCH (06:40)
[2017-09-28 07:47] VITALS: BP 168/74; PULSE 73; TEMP 36.6; O2SAT 93
[2017-09-28] MEDS: ASPIRIN 81 MG ECTAB PO SCH (09:02)
[2017-09-28] MEDS: CHOLECALCIFEROL 1000 INTER.UNIT TAB PO SCH (09:02)
[2017-09-28] MEDS: FLUTICASONE/SALMETEROL 250/50 (ADVAIR) 14 PUFF/1 INHALER INH SCH ×2 (09:02→20:17)
[2017-09-28] MEDS: DULOXETINE HCL 60 MG CAP PO SCH (09:02)
[2017-09-28] MEDS: CARVEDILOL 12.5 MG TAB PO SCH ×2 (09:04→20:19)
[2017-09-28] MEDS: CALCIUM CARBONATE 500 MG CHEWABLE PO SCH (09:04)
[2017-09-28 10:06] LABS: CALCIUM 8.8 mg/dl (8.5-10.1); CREATININE 1.16 mg/dl (0.60-1.20)
[2017-09-28 10:16] LABS: INR 1.3 (0.9-1.1)
[2017-09-28 10:30] LABS: PTT PATIENT 167.6 SECONDS (21.0-31.0)
[2017-09-28 12:03] LABS: PTT PATIENT 128.3 SECONDS (21.0-31.0)
[2017-09-28 12:20] VITALS: BP 159/76; PULSE 74; TEMP 36.7; O2SAT 95
--- NOTE | 2017-09-28 14:16 | Progress Note ---
Internal Med Progress Note Date of Service: Sep 28, 2017. Provider Documentation: SUBJECTIVE: The patient was seen and examined Admitted with Chest pain and labile Blood pressure No more chest pain Remains stable Denies any other symptoms OBJECTIVE: Vital Signs-as noted below Exam: General-No distress at rest Lying comfortable in bed Eyes-normal ENT-normal Neck-supple Lungs-clear to ausucltate bilaterally Minimally decreased breath sound bilaterally Heart-regular,no murmur appreciated Abdomen-Benign,no masses,bowel sound present Extremities-Trace edema bilaterally Neuro-AAOx3 Lab data as noted below. ASSESSMENT & PLAN: CHEST PAIN /HEAVINESS : Intermittent symptoms of past few months Not related to exertion ,mentions it can happen any time of day /any time -she could be working on computer and get the discomfort Noted to have Labile BP with Headache Troponin mildly elevated ECHO at [facility] : 09/19/17 LV wall thickness severely increased ( concentric ) borderline diffuse left ventricular hypokinesis LV EF 50-54 % Left ventricular diastolic function is mildly abnormal ( Grade 1) aortic valve mildly calcified , aortic stenosis absent There is heavy calcification of the posterior mitral valve annulus extending into the posterior leaflet Mitral Stenosis absent left atrium moderately enlarged ECHO om 09/27/17::There is borderline global hypokinesis of the left ventricle. * Left ventricular systolic function is low normal. * Ejection Fraction = 50-55%. * The left atrium is mildly dilated. * There is severe mitral annular calcification. * Significant mitral regurgitation is absent. * There is no mitral valve stenosis. * Grade I diastolic dysfunction, (abnormal relaxation pattern). Dobutamine Stress test was aborted as BP was significantly high on presentation ( 201/104) Appreciate cardiology input BP control now and Cardiac Cath on Saturday Remains free from any symptoms Hypercoagulable state /presents with low INR 1.2 limited mobility at baseline , wheel chair bound high risk for thromboembolism /PE CTA-negative for any Pul Embolism Continue anticoagulation-with heparin Hold Coumadin fro now HTN : Labile BP stable 140/77 cont Atenolol 100 mg daily given recurrent symptom of angina /episode of hypertensive urgency -may need alternate Beta hayden ( Metoprolol ) added ACEI -lisinopril 2.5 mg daily -given borderline low EF Carvedilol started and Lisinopril discontinued DEPRESSION : Cont Cymbalta Amitriptyline HS CKD STAGE 3 : Cr at baseline follow PRP LIMITED MOBILITY /CHRONIC BILAT KNEE ARTHRITIS : hx of tibial Plateau Fx in March 2017 , has been wheel chair bound since bilateral knee arthritis ordered for PT/OT eval 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 Coumadin is on Hold fro cath on Saturday Continue Heparin CODE STATUS : FULL CODE discussed with pt DISPOSITION : expected to be discharged home when medically stable at baseline non ambulatory /uses wheel chair PT/OT eval Vital Signs: Date Time Temp Pulse Resp B/P (MAP) Pulse Ox O2 Delivery O2 Flow Rate FiO2 09/28/17 12:20 36.7 74 16 159/76 (103) 95 09/28/17 12:00 Room Air 09/28/17 08:00 Room Air 09/28/17 07:47 36.6 73 16 168/74 (105) 93 09/28/17 04:00 Room Air 09/28/17 03:29 36.8 68 19 145/71 (95) 94 Room Air 09/28/17 00:00 Room Air 09/27/17 23:23 36.9 70 19 144/84 (104) 90 Room Air 09/27/17 20:00 Room Air 09/27/17 19:55 36.7 68 18 179/84 (115) 96 Room Air 09/27/17 16:18 Room Air 09/27/17 15:00 36.8 66 16 141/65 (90) 95 Lab Results: Results Past 24 Hours Test 09/27/17 23:26 09/28/17 09:11 09/28/17 11:09 09/28/17 14:03 Range/Units Activated Partial Thromboplast Time 46.3 167.6 128.3 21.0-31.0 SECONDS Partial Thromboplastin Ratio 1.8 6.4 4.9 Prothrombin Time 13.8 9.0-12.0 SECONDS Prothromb Time International Ratio 1.3 0.9-1.1 Sodium Level 139 136-145 mmol/L Potassium Level 4.0 3.5-5.1 mmol/L Chloride Level 105 98-107 mmol/L Carbon Dioxide Level 29 21-32 mmol/L Anion Gap 5.0 3-11 mmol/L Blood Urea Nitrogen 18 7-18 mg/dl Creatinine 1.16 0.60-1.20 mg/dl Est Creatinine Clear Calc Drug Dose 30.4 ml/min Estimated GFR () 53.3 Estimated GFR (Non- 46.0 BUN/Creatinine Ratio 15.2 10-20 Random Glucose 104 70-99 mg/dl Calcium Level 8.8 8.5-10.1 mg/dl
[2017-09-28 14:46] LABS: PTT PATIENT 48.8 SECONDS (21.0-31.0)
[2017-09-28 15:50] VITALS: BP 146/75; PULSE 79; TEMP 36.9; O2SAT 97
--- NOTE | 2017-09-28 17:01 | CARDIOLOGY PROGRESS NOTE ---
DATE: 09/28/2017 CARDIOLOGY FOLLOWUP SUBJECTIVE: The patient is a 77-year-old female evaluated in followup. Admitted with recurrent chest discomfort. Mild troponin elevation noted. T-wave inversions noted on ECG in the inferior leads. This morning the patient is feeling well. She is currently asymptomatic. Chest pain free. Denies any shortness of breath at rest. is present at bedside. REVIEW OF SYSTEMS: Pertinent positives noted above, a 4-system review including cardiovascular, pulmonary, gastroenterology, and musculoskeletal systems otherwise negative. PAST MEDICAL HISTORY: Reviewed via EMR. MEDICATIONS: Reviewed via EMR. LABORATORY DATA: White blood cell count 6.23, hemoglobin 12.1, platelet count 201. Sodium 139, potassium 4.0, chloride 105, CO2 is 29, BUN is 18, creatinine is 1.16. INR 1.3. PHYSICAL EXAMINATION: VITAL SIGNS: Temperature is 36.9 degree centigrade, pulse 79 beats per minute and regular, respiratory rate is 18 breaths per minute, blood pressure 146/75, SaO2 is 97% on room air. Telemetry demonstrates sinus rhythm in the 70s with PVCs. GENERAL: NAD, obese, awake, alert and oriented x3. HEENT: Mucous membranes moist. No scleral icterus. Conjunctivae pink. NECK: Supple. No JVD or HJR. No carotid bruit. HEART: Regular with a normal S1 and S2. No murmur, rub or gallop. LUNGS: Clear without rales, rhonchi or wheeze. ABDOMEN: Obese, nontender. No rebound or guarding. EXTREMITIES: Warm and dry without clubbing, cyanosis or edema. NEUROLOGIC: Demonstrates no focal deficit. FINAL IMPRESSION: 1. A 77-year-old female admitted with episodic chest discomfort and exertional shortness of breath. Mild electrocardiogram changes and minimal troponin elevation noted. Carries a history of dense coronary calcification on CT of the chest suggesting underlying atherosclerotic process. 2. Hypertension -- labile -- improved with the addition of lisinopril. 3. Dyslipidemia, tolerating simvastatin. 4. Remote history of deep venous thrombosis/PE, and hypercoagulable state, on chronic oral anticoagulation -- Coumadin currently on hold with intravenous heparin infusion in anticipation of cardiac catheterization. PLAN AND RECOMMENDATIONS: The risk, benefits, and alternatives to cardiac catheterization with coronary angiography were discussed with the patient and her . All questions were answered to her satisfaction. She understands the risk for procedure and is agreeable to proceed on Saturday. We will plan a right radial approach. Continue current medications including carvedilol, aspirin. We will restart lisinopril which appears to have been placed on hold after a dose last evening. Repeat BMP in a.m. N.p.o. after midnight, 09/29/2017 for cardiac catheterization on Saturday. JEANNINE
[2017-09-28 19:30] VITALS: BP 170/81; PULSE 75; TEMP 36.5; O2SAT 97
[2017-09-28] MEDS: AMITRIPTYLINE HCL 25 MG TAB PO SCH (20:20)
[2017-09-28] MEDS: SIMVASTATIN 20 MG TAB PO SCH (20:21)
[2017-09-28 21:24] VITALS: BP 153/68
[2017-09-28 21:51] LABS: PTT PATIENT 68.3 SECONDS (21.0-31.0)
[2017-09-29] VITALS (8 sets, daily range): BP systolic 97–178; BP diastolic 53–86; PULSE 78–93; TEMP 36.2–37.1; O2SAT 92–98
[2017-09-29] MEDS: LEVOTHYROXINE 25 MCG TAB PO SCH (06:00)
[2017-09-29] MEDS: FLUTICASONE/SALMETEROL 250/50 (ADVAIR) 14 PUFF/1 INHALER INH SCH ×2 (07:42→20:16)
[2017-09-29] MEDS: ASPIRIN 81 MG ECTAB PO SCH (07:42)
[2017-09-29] MEDS: DULOXETINE HCL 60 MG CAP PO SCH (07:42)
[2017-09-29] MEDS: CARVEDILOL 12.5 MG TAB PO SCH ×2 (07:42→20:17)
[2017-09-29] MEDS: CHOLECALCIFEROL 1000 INTER.UNIT TAB PO SCH (07:42)
[2017-09-29] MEDS: CALCIUM CARBONATE 500 MG CHEWABLE PO SCH (07:42)
[2017-09-29] MEDS: LISINOPRIL 5 MG TAB PO SCH (07:42)
[2017-09-29 08:24] LABS: INR 1.2 (0.9-1.1)
[2017-09-29 08:27] LABS: PTT PATIENT 83.6 SECONDS (21.0-31.0)
[2017-09-29 08:39] LABS: CALCIUM 8.8 mg/dl (8.5-10.1); CREATININE 1.12 mg/dl (0.60-1.20); POTASSIUM 3.9 mmol/L (3.5-5.1)
[2017-09-29] MEDS: HEPARIN 25,000 UNIT/500ML D5W 500 ML IV PRN ×2 (09:04→17:11)
--- NOTE | 2017-09-29 11:45 | Cardiology Follow-Up ---
Subjective General Date of Service: Sep 29, 2017. Chief Complaint: follow up chest pain, shortness of breath Pt evaluation today including: conversation w/ patient, physical exam, chart review, lab review, review of studies, review of inpatient medication list History of Present Illness The patient is a 77 year old female seen in follow-up. No recurrent chest discomfort. No dysrhythmias on telemetry. Offers no complaints this time. Allergies Coded Allergies: Aspirin (Verified Allergy, Unknown, UNKNOWN, 04/12/17) Sulfa Antibiotics (Verified Allergy, Unknown, Unknown, 04/12/17) Social History Smoking Status: Unknown if Ever Smoked Hx Tobacco Use In Past Year?: No Hx Alcohol Use - Type And Amou: No Hx Substance Use - Type And Am: No Problem List Medical Problems: (1) Chest pain Status: Acute (2) Hematoma Status: Acute Review of Systems Respiratory: No cough, No sputum, No wheezing, No shortness of breath, No dyspnea on exertion, No dyspnea at rest, No hemoptysis Cardiac: No chest pain, No orthopnea, No PND, No edema, No claudication, No palpitations Physical Exam Vital Signs Last Vital Signs Documentation Date Time Temp Pulse Resp B/P (MAP) Pulse Ox O2 Delivery O2 Flow Rate FiO2 09/29/17 11:14 37.1 83 18 97/53 (68) 96 Room Air Physical Exam Constitutional: Level of Distress: NAD Head: normocephalic ENMT: normal ENT inspection, TMs normal Lungs: Auscultation: no wheezing, no rales/crackles, no rhonchi Cardiovascular: Heart Auscultation: RRR, no murmurs, no rubs, no gallops Abdomen: Bowel Sounds: normal Inspection & Palpation: non-distended, no tenderness, guarding & rebound Extremities: no cyanosis, no edema Neurologic: Gait & Station: pertinent finding (no focal deficits ) Assessment and Plan Assessment and Plan IMPRESSION: 1. A 77-year-old female admitted with episodic chest discomfort and exertional shortness of breath. Mild electrocardiogram changes and minimal troponin elevation noted. Carries a history of dense coronary calcification on CT of the chest suggesting underlying atherosclerotic process. 2. Hypertension -- labile -- improved with the addition of lisinopril. 3. Dyslipidemia, tolerating simvastatin. 4. Remote history of deep venous thrombosis/PE, and hypercoagulable state, on chronic oral anticoagulation -- Coumadin currently on hold with intravenous heparin infusion in anticipation of cardiac catheterization. PLAN AND RECOMMENDATIONS: Risk, benefits, and alternatives to cardiac catheterization with coronary angiography were discussed with the patient. Hold IV heparin in AM. NPO except medications after midnight. Left heart catheterization with coronary angiography in AM. Laboratory Results Last 24 Hours Test 09/28/17 14:03 09/28/17 20:56 09/29/17 07:39 Activated Partial Thromboplast Time 48.8 SECONDS 68.3 SECONDS 83.6 SECONDS Partial Thromboplastin Ratio 1.9 2.6 3.2 Prothrombin Time 12.7 SECONDS Prothromb Time International Ratio 1.2 Sodium Level 141 mmol/L Potassium Level 3.9 mmol/L Chloride Level 106 mmol/L Carbon Dioxide Level 25 mmol/L Anion Gap 11.0 mmol/L Blood Urea Nitrogen 17 mg/dl Creatinine 1.12 mg/dl Est Creatinine Clear Calc Drug Dose 54.5 ml/min Estimated GFR () 55.6 Estimated GFR (Non- 48.0 BUN/Creatinine Ratio 15.4 Random Glucose 94 mg/dl Calcium Level 8.8 mg/dl
--- NOTE | 2017-09-29 12:23 | Progress Note ---
Internal Med Progress Note Date of Service: Sep 29, 2017. Provider Documentation: SUBJECTIVE: The patient was seen and examined Admitted with Chest pain and labile Blood pressure No more chest pain Denies any other symptoms and remains stable OBJECTIVE: Vital Signs-as noted below Exam: General-No distress at rest Lying comfortable in bed Eyes-normal ENT-normal Neck-supple Lungs-clear to ausucltate bilaterally Minimally decreased breath sound bilaterally Heart-regular,no murmur appreciated Abdomen-Benign,no masses,bowel sound present Extremities-Trace edema bilaterally Neuro-AAOx3 Has chronic limited mobility Lab data as noted below. ASSESSMENT & PLAN: CHEST PAIN /HEAVINESS : Intermittent symptoms of past few months Not related to exertion ,mentions it can happen any time of day /any time -she could be working on computer and get the discomfort Noted to have Labile BP with Headache Troponin mildly elevated ECHO at [facility] : 09/19/17 LV wall thickness severely increased ( concentric ) borderline diffuse left ventricular hypokinesis LV EF 50-54 % Left ventricular diastolic function is mildly abnormal ( Grade 1) aortic valve mildly calcified , aortic stenosis absent There is heavy calcification of the posterior mitral valve annulus extending into the posterior leaflet Mitral Stenosis absent left atrium moderately enlarged ECHO om 09/27/17::There is borderline global hypokinesis of the left ventricle. * Left ventricular systolic function is low normal. * Ejection Fraction = 50-55%. * The left atrium is mildly dilated. * There is severe mitral annular calcification. * Significant mitral regurgitation is absent. * There is no mitral valve stenosis. * Grade I diastolic dysfunction, (abnormal relaxation pattern). Dobutamine Stress test was aborted as BP was significantly high on presentation ( 201/104) Appreciate cardiology input BP control now and Cardiac Cath on Saturday Remains free from any symptoms Hypercoagulable state /presents with low INR 1.2 limited mobility at baseline , wheel chair bound high risk for thromboembolism /PE CTA-negative for any Pul Embolism Continue anticoagulation-with heparin Hold Coumadin fro now and on IV heparin HTN : Labile BP stable 140/77 cont Atenolol 100 mg daily given recurrent symptom of angina /episode of hypertensive urgency -may need alternate Beta hayden ( Metoprolol ) added ACEI -lisinopril 2.5 mg daily -given borderline low EF Carvedilol started and Lisinopril discontinued BP is on the lower side today DEPRESSION : Cont Cymbalta Amitriptyline HS CKD STAGE 3 : Cr at baseline follow PRP LIMITED MOBILITY /CHRONIC BILAT KNEE ARTHRITIS : hx of tibial Plateau Fx in March 2017 , has been wheel chair bound since bilateral knee arthritis ordered for PT/OT eval 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7 85 18 127/78 (94) 96 Room Air 09/29/17 00:01 Room Air 09/28/17 21:24 153/68 (96) 09/28/17 20:01 Room Air 09/28/17 19:30 36.5 75 20 170/81 (110) 97 Room Air 09/28/17 16:13 Room Air 09/28/17 15:50 36.9 79 18 146/75 (98) 97 Room Air 09/28/17 12:20 36.7 74 16 159/76 (103) 95 Lab Results: Results Past 24 Hours Test 09/28/17 14:03 09/28/17 20:56 09/29/17 07:39 Range/Units Activated Partial Thromboplast Time 48.8 68.3 83.6 21.0-31.0 SECONDS Partial Thromboplastin Ratio 1.9 2.6 3.2 Prothrombin Time 12.7 9.0-12.0 SECONDS Prothromb Time International Ratio 1.2 0.9-1.1 Sodium Level 141 136-145 mmol/L Potassium Level 3.9 3.5-5.1 mmol/L Chloride Level 106 98-107 mmol/L Carbon Dioxide Level 25 21-32 mmol/L Anion Gap 11.0 3-11 mmol/L Blood Urea Nitrogen 17 7-18 mg/dl Creatinine 1.12 0.60-1.20 mg/dl Est Creatinine Clear Calc Drug Dose 54.5 ml/min Estimated GFR () 55.6 Estimated GFR (Non- 48.0 BUN/Creatinine Ratio 15.4 10-20 Random Glucose 94 70-99 mg/dl Calcium Level 8.8 8.5-10.1 mg/dl
[2017-09-29 16:01] LABS: PTT PATIENT 44.2 SECONDS (21.0-31.0)
[2017-09-29] MEDS ORDERED: HEPARIN IV BOLUS 3,000 UNIT in SYRINGE 0 ML IV ONE (17:00)
[2017-09-29] MEDS: AMITRIPTYLINE HCL 25 MG TAB PO SCH (20:17)
[2017-09-29] MEDS: SIMVASTATIN 20 MG TAB PO SCH (20:18)
[2017-09-29] MEDS: ACETAMINOPHEN 325 MG TAB PO PRN (20:19)
[2017-09-29 23:53] LABS: PTT PATIENT 92.4 SECONDS (21.0-31.0)
[2017-09-30] VITALS (14 sets, daily range): BP systolic 108–169; BP diastolic 54–90; PULSE 65–104; TEMP 36.4–36.9; O2SAT 91–97
[2017-09-30] MEDS: HEPARIN 25,000 UNIT/500ML D5W 500 ML IV PRN ×2 (00:32→19:46)
[2017-09-30] MEDS: LEVOTHYROXINE 25 MCG TAB PO SCH (05:29)
[2017-09-30 07:04] LABS: INR 1.1 (0.9-1.1)
[2017-09-30 07:12] LABS: PTT PATIENT 66.6 SECONDS (21.0-31.0)
[2017-09-30 07:24] LABS: CALCIUM 8.8 mg/dl (8.5-10.1); CREATININE 1.19 mg/dl (0.60-1.20); POTASSIUM 3.7 mmol/L (3.5-5.1)
[2017-09-30] MEDS: CHOLECALCIFEROL 1000 INTER.UNIT TAB PO SCH (07:47)
[2017-09-30] MEDS: FLUTICASONE/SALMETEROL 250/50 (ADVAIR) 14 PUFF/1 INHALER INH SCH ×2 (07:47→19:43)
[2017-09-30] MEDS: CALCIUM CARBONATE 500 MG CHEWABLE PO SCH (07:47)
[2017-09-30] MEDS: LISINOPRIL 5 MG TAB PO SCH (07:47)
[2017-09-30] MEDS: DULOXETINE HCL 60 MG CAP PO SCH (07:47)
[2017-09-30] MEDS: ASPIRIN 81 MG ECTAB PO SCH (07:48)
[2017-09-30] MEDS: CARVEDILOL 12.5 MG TAB PO SCH ×2 (07:48→19:45)
[2017-09-30] MEDS ORDERED: FENTANYL CITRATE INJ 50 MCG/1 ML 2 ML VIAL ONE (12:02)
[2017-09-30] MEDS ORDERED: MIDAZOLAM HCL 1 MG/ML 2ML VIAL ONE ×2 (12:02→13:39)
[2017-09-30] MEDS ORDERED: HEPARIN SOD (PORCINE) 1000 UNIT/ML 10 ML VIAL ONE (12:09)
[2017-09-30] MEDS ORDERED: NiCARDipine HCL INJ 2.5 MG/ML 10 ML AMP ONE (12:09)
[2017-09-30] MEDS ORDERED: NITROGLYCERIN/D5W 100MCG/ML 20ML SYR ONE (12:10)
[2017-09-30] MEDS ORDERED: LABETALOL HCL IV 5 MG/ML 20ML IV ONE (13:38)
--- NOTE | 2017-09-30 14:11 | Post Sedation Assessment ---
Post Sedation Assessment General Date of Sedation Sep 30, 2017. Vital Signs: Vital Signs Past 12 Hours Date Time Temp Pulse Resp B/P (MAP) Pulse Ox O2 Delivery O2 Flow Rate FiO2 09/30/17 12:00 Room Air 09/30/17 11:47 36.7 76 20 151/74 (99) 94 Room Air 09/30/17 08:00 Room Air 09/30/17 07:30 36.9 104 20 169/84 (112) 91 Room Air 09/30/17 04:00 36.4 79 18 124/72 (89) 96 Room Air 09/30/17 04:00 Room Air Post Procedure Recovery Score Activity: (2) Moves 4 extremities * Respiration: (2) Deep breath/cough Circulation: (2) +/-20% PreAnes Value Consciousness: (2) Fully Awake Oxygen Saturation: (2) > 92% On Room Air Post Anesthesia Score: 10 Discharge Sedation Level of Care: Fast Track Phase II Post Sedation Plan On clinical assessment, the patient appears to have tolerated the sedation without complications. Patient is recovering as anticipated. Patient will continue to be monitored by nursing and may be discharged when sedation discharge criteria are met per below protocol. Upon Completions of procedure and additional 15 minutes continue every 5 minute vital signs and the P.A.R. score; then discharge to a Phase I or Fast Track to Phase II per the following guidelines: * Discharge Patient to appropriate Phase II area if PAR is 8 or greater or return to pre- procedure baseline. The post - procedure orders will be as directed. * If PAR score is less than 8 or not return to pre-procedure baseline then patient will follow Phase I monitoring till PAR is reached for Phase II. The Phase I may be done in procedure room or may call to secure a Phase I area. * If naloxone or flumazenil are used for reversal, hold in Phase I for an additional 60 -120 minutes before discharge to Phase II. Please call the Sedation Physician to re-evaluate and complete post-note for discharge to Phase II area. Do NOT discharge from procedure sedation or Phase 1 until post- sedation evaluation note is complete by procedure /sedation MD Sedation Discharge Instructions to be given to the patient at discharge to home.
--- NOTE | 2017-09-30 14:11 | Pre Sedation Assessment ---
Pre Sedation Assessment General Date of Sedation: Sep 30, 2017. Vital Signs Past 12 Hours Date Time Temp Pulse Resp B/P (MAP) Pulse Ox O2 Delivery O2 Flow Rate FiO2 09/30/17 12:00 Room Air 09/30/17 11:47 36.7 76 20 151/74 (99) 94 Room Air 09/30/17 08:00 Room Air 09/30/17 07:30 36.9 104 20 169/84 (112) 91 Room Air 09/30/17 04:00 36.4 79 18 124/72 (89) 96 Room Air 09/30/17 04:00 Room Air Review Cardiovascular: regular rate, rhythm, no edema Lungs: chest non-tender, normal breath sounds Pre-Sedation Airway Assessment Smoking Status: Unknown if Ever Smoked Hx of Sleep Apnea: No Short Thick Neck: No Oral Cavity: Dentures Mallampati Classification: Class III ASA Classification: Class III NPO Status Date of Last Intake of Fluids: Sep 29, 2017 Time of Last Intake of Fluids: 2359 Date of Last Intake of Solids: Sep 29, 2017 Time of Last Intake of Solids: 1800 Procedure Planning Contraindications for Sedation: None Current Medications Reviewed: Yes Notes The planned sedation has been discussed with the patient. Informed Consent was obtained. I have identified the patient, determined the appropriateness of sedation and have assessed the patient immediately prior to the procedure. All medicine(s) and interventions are by my order.
[2017-09-30] MEDS ORDERED: SODIUM CHLORIDE 0.9% 1000ML 250 ML IV PRN (14:24)
--- NOTE | 2017-09-30 14:24 | Cardiac Catheterization ---
Procedure Note Procedure Date Sep 30, 2017. Pre-Procedure Diagnosis Non STEMI AUC Score 8 Post-Procedure Diagnosis Mild CAD Procedure(s) Performed Coronary Angiography, Left Heart Cath Forest Engineer Dr. Ahuja Life Enrichment Assistant(s) Chavo RTR Estimated Blood Loss 10cc Medication(s) Fentanyl, Heparin, Labetalol, Nicardipine, Nitroglycerin, Versed, Lidocaine 1% Summary of Findings Mild non-obstructive CAD. Hemodynamics Rest Ao: 195/82/132 Final Ao: 175/71/119 LV: 203/4/12 Recommendations Medical therapy and/or Counseling Specimens None Radiation Exposure (mGy) 1882 Contrast (mls) 105 Anesthesia Moderate sedation. Start 1302. End 1403. Monitor Ameya LOONEY. Procedural Complication(s) None Disposition Public Relations Consultant Holding/Recovery ACC Data Cardiac Status Clinical evaluation leading to the procedure CAD Presntation: Non STEMI Anginal Classification: CCS IV Heart Failure: No Cardiogenic Shock w/in 24Hrs: No Cardiac Arrest w/in 24Hrs: No Imaging studies past 6 months: No Stress studies past 6 months: No Coronary Anatomy Dominant: Right Left Main (% Stenosis): Normal (Short cloa) LAD (% Stenosis): Distal (diffuse 10%) D1 (% Stenosis): Normal D2 (% Stenosis): Normal Circumflex (% Stenosis): Normal (Large vessel) OM1 (% Stenosis): Normal L PL1 (% Stenosis): Normal (large vessel. Gives rise to 3 moderate caliber sub- branches) RCA (% Stenosis): Normal R PDA (% Stenosis): Normal R PL1 (% Stenosis): Normal AM (% Stenosis): Normal Diagnostic Status: Elective Closure Device Percutaneous Entry Location: Radial Recommendations: Medical therapy and/or Counseling Reason For Delay in PCI: Difficult vascular access (significant radial artery spasm) Intraprocedure Events Significant Dissection: No Perforation: No
[2017-09-30] MEDS ORDERED: ONDANSETRON INJ 2 MG/ML 2 ML VIAL IV PRN (14:30)
[2017-09-30] MEDS ORDERED: ACETAMINOPHEN 325 MG TAB PO PRN (14:30)
[2017-09-30] MEDS ORDERED: ATROPINE SULFATE 0.1 MG/ML 5ML SYR IV PRN (14:30)
--- NOTE | 2017-09-30 16:39 | Progress Note ---
Internal Med Progress Note Date of Service: Sep 30, 2017. Provider Documentation: SUBJECTIVE: The patient was seen and examined Admitted with Chest pain and labile Blood pressure No more chest pain since admission Denies any other symptoms and remains stable Will go for cardiac Cath today OBJECTIVE: Vital Signs-as noted below Exam: General-No distress at rest Lying comfortable in bed Eyes-normal ENT-normal Neck-supple Lungs-clear to ausucltate bilaterally Minimally decreased breath sound bilaterally Heart-regular,no murmur appreciated Abdomen-Benign,no masses,bowel sound present Extremities-Trace edema bilaterally Neuro-AAOx3 Has chronic limited mobility Lab data as noted below. ASSESSMENT & PLAN: CHEST PAIN /HEAVINESS : Intermittent symptoms of past few months Not related to exertion ,mentions it can happen any time of day /any time -she could be working on computer and get the discomfort Noted to have Labile BP with Headache Troponin mildly elevated ECHO at [facility] : 09/19/17 LV wall thickness severely increased ( concentric ) borderline diffuse left ventricular hypokinesis LV EF 50-54 % Left ventricular diastolic function is mildly abnormal ( Grade 1) aortic valve mildly calcified , aortic stenosis absent There is heavy calcification of the posterior mitral valve annulus extending into the posterior leaflet Mitral Stenosis absent left atrium moderately enlarged ECHO om 09/27/17::There is borderline global hypokinesis of the left ventricle. * Left ventricular systolic function is low normal. * Ejection Fraction = 50-55%. * The left atrium is mildly dilated. * There is severe mitral annular calcification. * Significant mitral regurgitation is absent. * There is no mitral valve stenosis. * Grade I diastolic dysfunction, (abnormal relaxation pattern). Dobutamine Stress test was aborted as BP was significantly high on presentation ( 201/104) Appreciate cardiology input BP control now and Cardiac Cath on Saturday Remains free from any symptoms Cardiac Cath today Hypercoagulable state /presents with low INR 1.2 limited mobility at baseline , wheel chair bound high risk for thromboembolism /PE CTA-negative for any Pul Embolism Continue anticoagulation-with heparin Hold Coumadin fro now and on IV heparin Will restart Coumadin and Heparin after the cath HTN : Labile BP stable 140/77 cont Atenolol 100 mg daily given recurrent symptom of angina /episode of hypertensive urgency -may need alternate Beta hayden ( Metoprolol ) added ACEI -lisinopril 2.5 mg daily -given borderline low EF Carvedilol started and Lisinopril discontinued BP is on the lower side today DEPRESSION : Cont Cymbalta Amitriptyline HS CKD STAGE 3 : Cr at baseline follow PRP LIMITED MOBILITY /CHRONIC BILAT KNEE ARTHRITIS : hx of tibial Plateau Fx in March 2017 , has been wheel chair bound since bilateral knee arthritis ordered for PT/OT eval -ongoing 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 Hold fro cath on Saturday Continue Heparin Will start Coumadin CODE STATUS : FULL CODE discussed with pt DISPOSITION : expected to be discharged home when medically stable at baseline non ambulatory /uses wheel chair PT/OT eval Vital Signs: Date Time Temp Pulse Resp B/P (MAP) Pulse Ox O2 Delivery O2 Flow Rate FiO2 09/30/17 16:00 95 Room Air 09/30/17 15:45 36.6 73 18 146/83 (104) 95 Room Air 09/30/17 15:30 36.4 66 18 151/77 (101) 95 Room Air 09/30/17 15:08 67 17 147/78 (101) 96 Room Air 09/30/17 14:53 76 18 156/82 (106) 97 Room Air 09/30/17 14:38 36.4 72 18 155/90 (111) 95 Room Air 09/30/17 14:15 71 17 149/78 (101) 97 Room Air 71 09/30/17 14:10 80 17 196/96 (129) 97 Room Air 80 09/30/17 14:03 78 15 189/94 (125) 99 Room Air 78 09/30/17 12:00 Room Air 09/30/17 11:47 36.7 76 20 151/74 (99) 94 Room Air 09/30/17 08:00 Room Air 09/30/17 07:30 36.9 104 20 169/84 (112) 91 Room Air 09/30/17 04:00 36.4 79 18 124/72 (89) 96 Room Air 09/30/17 04:00 Room Air 09/30/17 00:00 Room Air 09/29/17 23:40 36.9 81 20 123/73 (90) 92 Room Air 09/29/17 20:12 36.8 93 18 162/80 (107) 97 Room Air 09/29/17 20:00 Room Air Lab Results: Results Past 24 Hours Test 09/29/17 22:55 09/30/17 06:32 Range/Units Activated Partial Thromboplast Time 92.4 66.6 21.0-31.0 SECONDS Partial Thromboplastin Ratio 3.6 2.6 Prothrombin Time 11.6 9.0-12.0 SECONDS Prothromb Time International Ratio 1.1 0.9-1.1 Sodium Level 142 136-145 mmol/L Potassium Level 3.7 3.5-5.1 mmol/L Chloride Level 107 98-107 mmol/L Carbon Dioxide Level 25 21-32 mmol/L Anion Gap 10.0 3-11 mmol/L Blood Urea Nitrogen 17 7-18 mg/dl Creatinine 1.19 0.60-1.20 mg/dl Est Creatinine Clear Calc Drug Dose 51.3 ml/min Estimated GFR () 51.7 Estimated GFR (Non- 44.6 BUN/Creatinine Ratio 14.2 10-20 Random Glucose 87 70-99 mg/dl Calcium Level 8.8 8.5-10.1 mg/dl
[2017-09-30] MEDS ORDERED: WARFARIN SOD 5 MG TAB PO ONE (19:00)
[2017-09-30] MEDS: ACETAMINOPHEN 325 MG TAB PO PRN (19:42)
[2017-09-30] MEDS: SIMVASTATIN 20 MG TAB PO SCH (19:45)
[2017-09-30] MEDS: AMITRIPTYLINE HCL 25 MG TAB PO SCH (19:45)
[2017-10-01] VITALS (7 sets, daily range): BP systolic 120–152; BP diastolic 67–86; PULSE 70–96; TEMP 36.4–36.7; O2SAT 93–98
[2017-10-01 02:17] LABS: PTT PATIENT 44.9 SECONDS (21.0-31.0)
[2017-10-01] MEDS ORDERED: HEPARIN IV BOLUS 3,000 UNIT in SYRINGE 0 ML IV ONE (03:45)
[2017-10-01] MEDS: HEPARIN 25,000 UNIT/500ML D5W 500 ML IV PRN ×3 (04:11→16:11)
[2017-10-01] MEDS: LEVOTHYROXINE 25 MCG TAB PO SCH (04:52)
[2017-10-01] MEDS: FLUTICASONE/SALMETEROL 250/50 (ADVAIR) 14 PUFF/1 INHALER INH SCH ×2 (08:36→20:44)
[2017-10-01] MEDS: CHOLECALCIFEROL 1000 INTER.UNIT TAB PO SCH (08:37)
[2017-10-01] MEDS: ASPIRIN 81 MG ECTAB PO SCH (08:37)
[2017-10-01] MEDS: CARVEDILOL 12.5 MG TAB PO SCH ×2 (08:38→20:46)
[2017-10-01] MEDS: DULOXETINE HCL 60 MG CAP PO SCH (08:38)
[2017-10-01] MEDS: LISINOPRIL 5 MG TAB PO SCH (08:39)
[2017-10-01] MEDS: CALCIUM CARBONATE 500 MG CHEWABLE PO SCH (08:40)
[2017-10-01 09:46] LABS: PTT PATIENT 82.9 SECONDS (21.0-31.0)
--- NOTE | 2017-10-01 15:12 | Progress Note ---
Internal Med Progress Note Date of Service: Oct 01, 2017. Provider Documentation: SUBJECTIVE: The patient was seen and examined Admitted with Chest pain and labile Blood pressure No more chest pain since admission Denies any other symptoms and remains stable S/p Cardiac cath-non occlusive disease Remains stable OBJECTIVE: Vital Signs-as noted below Exam: General-No distress at rest Lying comfortable in bed Eyes-normal ENT-normal Neck-supple Lungs-clear to ausucltate bilaterally Minimally decreased breath sound bilaterally Heart-regular,no murmur appreciated Abdomen-Benign,no masses,bowel sound present Extremities-Trace edema bilaterally Neuro-AAOx3 Has chronic limited mobility Lab data as noted below. ASSESSMENT & PLAN: CHEST PAIN /HEAVINESS : Negative ACS ,Negative Cardiac cath Intermittent symptoms of past few months Not related to exertion ,mentions it can happen any time of day /any time -she could be working on computer and get the discomfort Noted to have Labile BP with Headache Troponin mildly elevated ECHO at [facility] : 09/19/17 LV wall thickness severely increased ( concentric ) borderline diffuse left ventricular hypokinesis LV EF 50-54 % Left ventricular diastolic function is mildly abnormal ( Grade 1) aortic valve mildly calcified , aortic stenosis absent There is heavy calcification of the posterior mitral valve annulus extending into the posterior leaflet Mitral Stenosis absent left atrium moderately enlarged ECHO om 09/27/17::There is borderline global hypokinesis of the left ventricle. * Left ventricular systolic function is low normal. * Ejection Fraction = 50-55%. * The left atrium is mildly dilated. * There is severe mitral annular calcification. * Significant mitral regurgitation is absent. * There is no mitral valve stenosis. * Grade I diastolic dysfunction, (abnormal relaxation pattern). Dobutamine Stress test was aborted as BP was significantly high on presentation ( 201/104) Appreciate cardiology input BP control now and Cardiac Cath on Saturday Remains free from any symptoms Cardiac Cath today-nonocclusive disease Hypercoagulable state /presents with low INR 1.2 limited mobility at baseline , wheel chair bound high risk for thromboembolism /PE CTA-negative for any Pul Embolism Continue anticoagulation-with heparin Hold Coumadin fro now and on IV heparin Will restart Coumadin and Heparin after the cath Will d/c on Lovenox and Coumadin HTN : Labile BP stable 140/77 cont Atenolol 100 mg daily given recurrent symptom of angina /episode of hypertensive urgency -may need alternate Beta hayden ( Metoprolol ) added ACEI -lisinopril 2.5 mg daily -given borderline low EF Carvedilol started and Lisinopril discontinued BP remains stable DEPRESSION : Cont Cymbalta Amitriptyline HS CKD STAGE 3 : Cr at baseline follow PRP LIMITED MOBILITY /CHRONIC BILAT KNEE ARTHRITIS : hx of tibial Plateau Fx in March 2017 , has been wheel chair bound since bilateral knee arthritis ordered for PT/OT eval -ongoing 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 Hold fro cath on Saturday Continue Heparin Will start Coumadin CODE STATUS : FULL CODE discussed with pt DISPOSITION : expected to be discharged home when medically stable at baseline non ambulatory /uses wheel chair PT/OT eval Discharge home today Vital Signs: Date Time Temp Pulse Resp B/P (MAP) Pulse Ox O2 Delivery O2 Flow Rate FiO2 10/01/17 12:01 36.5 80 20 132/67 (88) 95 Room Air 10/01/17 12:00 Room Air 10/01/17 08:00 Room Air 10/01/17 07:07 36.7 80 20 152/82 (105) 98 Room Air 10/01/17 04:11 Room Air 10/01/17 03:23 36.6 70 16 150/67 (94) 93 Room Air 10/01/17 00:07 Room Air 09/30/17 23:54 36.9 72 16 108/54 (72) 93 Room Air 09/30/17 19:45 Room Air 09/30/17 19:24 36.7 76 19 144/75 (98) 96 Room Air 09/30/17 18:15 73 18 144/79 (100) 95 Room Air 09/30/17 17:15 65 18 124/75 (91) 97 Room Air 09/30/17 16:15 65 17 128/65 (86) 97 Room Air 09/30/17 16:00 95 Room Air 09/30/17 15:45 36.6 73 18 146/83 (104) 95 Room Air 09/30/17 15:30 36.4 66 18 151/77 (101) 95 Room Air 09/30/17 15:08 67 17 147/78 (101) 96 Room Air Lab Results: Results Past 24 Hours Test 10/01/17 01:53 10/01/17 09:10 10/01/17 15:01 Range/Units Activated Partial Thromboplast Time 44.9 82.9 21.0-31.0 SECONDS Partial Thromboplastin Ratio 1.7 3.2
[2017-10-01 15:35] LABS: INR 1.1 (0.9-1.1)
[2017-10-01] MEDS: WARFARIN SOD 5 MG TAB PO SCH (16:12)
[2017-10-01] MEDS: ACETAMINOPHEN 325 MG TAB PO PRN (20:45)
[2017-10-01] MEDS: AMITRIPTYLINE HCL 25 MG TAB PO SCH (20:45)
[2017-10-01] MEDS: SIMVASTATIN 20 MG TAB PO SCH (20:46)
[2017-10-02 00:54] VITALS: BP 114/54; PULSE 70; TEMP 36.7; O2SAT 90
[2017-10-02] MEDS: LEVOTHYROXINE 25 MCG TAB PO SCH (06:04)
[2017-10-02 07:30] VITALS: BP 141/57; PULSE 65; TEMP 36.5; O2SAT 93
[2017-10-02] MEDS: FLUTICASONE/SALMETEROL 250/50 (ADVAIR) 14 PUFF/1 INHALER INH SCH ×2 (07:51→20:44)
[2017-10-02] MEDS: DULOXETINE HCL 60 MG CAP PO SCH (07:51)
[2017-10-02] MEDS: CARVEDILOL 12.5 MG TAB PO SCH ×2 (07:51→20:45)
[2017-10-02] MEDS: CALCIUM CARBONATE 500 MG CHEWABLE PO SCH (07:52)
[2017-10-02] MEDS: ASPIRIN 81 MG ECTAB PO SCH (07:52)
[2017-10-02] MEDS: CHOLECALCIFEROL 1000 INTER.UNIT TAB PO SCH (07:52)
[2017-10-02 08:23] LABS: HEMATOCRIT 33.2 % (37-47); HEMOGLOBIN 11.2 g/dL (12.0-16.0); MEAN CELL VOLUME 104.4 fL (80-100); MEAN CORPUSCULAR HEMOGLOBIN 35.2 pg (25-34); MEAN CORPUSCULAR HGB CONC 33.7 g/dl (32-36); MEAN PLATELET VOLUME 9.7 fL (7.4-10.4); PLATELET COUNT 245 K/uL (130-400); RED CELL DISTRIBUTION WIDTH CV 13.9 % (11.5-14.5); RED CELL DISTRIBUTION WIDTH SD 52.4 fL (36.4-46.3); WHITE BLOOD COUNT 7.56 K/uL (4.8-10.8)
[2017-10-02 08:38] LABS: INR 1.3 (0.9-1.1)
[2017-10-02 08:40] LABS: PTT PATIENT 67.9 SECONDS (21.0-31.0)
[2017-10-02 08:53] LABS: CALCIUM 9.1 mg/dl (8.5-10.1); CREATININE 1.34 mg/dl (0.60-1.20); PHOSPHORUS 3.9 mg/dl (2.5-4.9); POTASSIUM 3.4 mmol/L (3.5-5.1)
[2017-10-02] MEDS: LISINOPRIL 5 MG TAB PO SCH (09:39)
[2017-10-02] MEDS: HEPARIN 25,000 UNIT/500ML D5W 500 ML IV PRN (12:21)
[2017-10-02 15:05] VITALS: BP 136/76; PULSE 81; TEMP 36.5; O2SAT 97
[2017-10-02] MEDS ORDERED: WARFARIN SOD 7.5 MG TAB PO SCH (16:00)
--- NOTE | 2017-10-02 16:16 | Progress Note ---
Internal Med Progress Note Date of Service: Oct 02, 2017. Provider Documentation: SUBJECTIVE: The patient was seen and examined Admitted with Chest pain and labile Blood pressure S/p Cardiac cath-non occlusive disease Denies any more symptoms OBJECTIVE: Vital Signs-as noted below Exam: General-No distress at rest Eyes-normal ENT-normal Neck-supple Lungs-clear to ausucltate bilaterally Minimally decreased breath sound bilaterally Heart-regular,no murmur appreciated Abdomen-Benign,no masses,bowel sound present Extremities-Trace edema bilaterally Neuro-AAOx3 Has chronic limited mobility Lab data as noted below. ASSESSMENT & PLAN: CHEST PAIN /HEAVINESS : Negative ACS ,Negative Cardiac cath Intermittent symptoms of past few months Not related to exertion ,mentions it can happen any time of day /any time -she could be working on computer and get the discomfort Noted to have Labile BP with Headache Troponin mildly elevated ECHO at [facility] : 09/19/17 LV wall thickness severely increased ( concentric ) borderline diffuse left ventricular hypokinesis LV EF 50-54 % Left ventricular diastolic function is mildly abnormal ( Grade 1) aortic valve mildly calcified , aortic stenosis absent There is heavy calcification of the posterior mitral valve annulus extending into the posterior leaflet Mitral Stenosis absent left atrium moderately enlarged ECHO om 09/27/17::There is borderline global hypokinesis of the left ventricle. * Left ventricular systolic function is low normal. * Ejection Fraction = 50-55%. * The left atrium is mildly dilated. * There is severe mitral annular calcification. * Significant mitral regurgitation is absent. * There is no mitral valve stenosis. * Grade I diastolic dysfunction, (abnormal relaxation pattern). Dobutamine Stress test was aborted as BP was significantly high on presentation ( 201/104) Appreciate cardiology input Denies any more symptoms Has been getting PT Likely home when INR is therapeutic Hypercoagulable state /presents with low INR 1.2 limited mobility at baseline , wheel chair bound high risk for thromboembolism /PE CTA-negative for any Pul Embolism Continue anticoagulation-with heparin Hold Coumadin fro now and on IV heparin Will restart Coumadin and Heparin after the cath Will d/c when INR is therapeutic HTN : Labile BP stable 140/77 cont Atenolol 100 mg daily given recurrent symptom of angina /episode of hypertensive urgency -may need alternate Beta hayden ( Metoprolol ) added ACEI -lisinopril 2.5 mg daily -given borderline low EF Carvedilol started and Lisinopril discontinued BP remains stable DEPRESSION : Cont Cymbalta Amitriptyline HS CKD STAGE 3 : Cr at baseline follow PRP LIMITED MOBILITY /CHRONIC BILAT KNEE ARTHRITIS : hx of tibial Plateau Fx in March 2017 , has been wheel chair bound since bilateral knee arthritis ordered for PT/OT eval -ongoing 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 [id number] mutation hx of DVT/PE Coumadin is on Hold fro cath on Saturday Continue Heparin Will start Coumadin CODE STATUS : FULL CODE discussed with pt DISPOSITION : expected to be discharged home when medically stable at baseline non ambulatory /uses wheel chair PT/OT eval Discharge home when INR is Therapeutic Vital Signs: Date Time Temp Pulse Resp B/P (MAP) Pulse Ox O2 Delivery O2 Flow Rate FiO2 10/02/17 15:05 36.5 81 18 136/76 (96) 97 Room Air 10/02/17 08:00 Room Air 10/02/17 07:30 36.5 65 18 141/57 (85) 93 Room Air 10/02/17 00:54 36.7 70 18 114/54 (74) 90 Room Air 10/02/17 00:15 Room Air 10/01/17 20:43 74 137/86 (103) 10/01/17 20:01 Room Air 10/01/17 17:45 36.4 96 18 120/79 (93) 96 Room Air 10/01/17 17:45 Room Air 10/01/17 17:38 36.6 84 18 96 Lab Results: Results Past 24 Hours Test 10/01/17 17:10 10/02/17 08:10 Range/Units Activated Partial Thromboplast Time 63.0 67.9 21.0-31.0 SECONDS Partial Thromboplastin Ratio 2.4 2.6 White Blood Count 7.56 4.8-10.8 K/uL Red Blood Count 3.18 4.2-5.4 M/uL Hemoglobin 11.2 12.0-16.0 g/dL Hematocrit 33.2 37-47 % Mean Corpuscular Volume 104.4 80-100 fL Mean Corpuscular Hemoglobin 35.2 25-34 pg Mean Corpuscular Hemoglobin Concent 33.7 32-36 g/dl RDW Standard Deviation 52.4 36.4-46.3 fL RDW Coefficient of Variation 13.9 11.5-14.5 % Platelet Count 245 130-400 K/uL Mean Platelet Volume 9.7 7.4-10.4 fL Prothrombin Time 13.2 9.0-12.0 SECONDS Prothromb Time International Ratio 1.3 0.9-1.1 Sodium Level 139 136-145 mmol/L Potassium Level 3.4 3.5-5.1 mmol/L Chloride Level 105 98-107 mmol/L Carbon Dioxide Level 26 21-32 mmol/L Anion Gap 8.0 3-11 mmol/L Blood Urea Nitrogen 17 7-18 mg/dl Creatinine 1.34 0.60-1.20 mg/dl Est Creatinine Clear Calc Drug Dose 45.7 ml/min Estimated GFR () 44.8 Estimated GFR (Non- 38.7 BUN/Creatinine Ratio 12.4 10-20 Random Glucose 97 70-99 mg/dl Calcium Level 9.1 8.5-10.1 mg/dl Phosphorus Level 3.9 2.5-4.9 mg/dl Magnesium Level 2.0 1.8-2.4 mg/dl
[2017-10-02] MEDS: SIMVASTATIN 20 MG TAB PO SCH (20:45)
[2017-10-02] MEDS: AMITRIPTYLINE HCL 25 MG TAB PO SCH (20:45)
[2017-10-02] MEDS: ACETAMINOPHEN 325 MG TAB PO PRN (20:48)
[2017-10-02 23:34] VITALS: BP 100/65; PULSE 75; TEMP 36.8; O2SAT 92
[2017-10-03] MEDS: LEVOTHYROXINE 25 MCG TAB PO SCH (06:13)
[2017-10-03 07:15] VITALS: BP 138/70; PULSE 62; TEMP 36.2; O2SAT 94
[2017-10-03] MEDS: CARVEDILOL 12.5 MG TAB PO SCH ×2 (08:27→22:38)
[2017-10-03] MEDS: CHOLECALCIFEROL 1000 INTER.UNIT TAB PO SCH (08:28)
[2017-10-03] MEDS: LISINOPRIL 5 MG TAB PO SCH (08:28)
[2017-10-03] MEDS: ASPIRIN 81 MG ECTAB PO SCH (08:28)
[2017-10-03] MEDS: DULOXETINE HCL 60 MG CAP PO SCH (08:28)
[2017-10-03] MEDS: CALCIUM CARBONATE 500 MG CHEWABLE PO SCH (08:28)
[2017-10-03 08:50] LABS: INR 1.6 (0.9-1.1)
[2017-10-03 08:55] LABS: PTT PATIENT 80.7 SECONDS (21.0-31.0)
[2017-10-03 09:01] LABS: CREATININE 1.17 mg/dl (0.60-1.20); POTASSIUM 3.8 mmol/L (3.5-5.1)
[2017-10-03] MEDS: HEPARIN 25,000 UNIT/500ML D5W 500 ML IV PRN (09:13)
[2017-10-03] MEDS: FLUTICASONE/SALMETEROL 250/50 (ADVAIR) 14 PUFF/1 INHALER INH SCH ×2 (09:13→19:49)
--- NOTE | 2017-10-03 10:21 | Progress Note ---
Internal Med Progress Note Date of Service: Oct 03, 2017. Provider Documentation: SUBJECTIVE: The patient was seen and examined Admitted with Chest pain and labile Blood pressure S/p Cardiac cath-non occlusive disease Denies any more symptoms Clinically stable without any symptoms Has generalized bruising ,more right UE-improving though OBJECTIVE: Vital Signs-as noted below Exam: General-No distress at rest Eyes-normal ENT-normal Neck-supple Lungs-clear to ausucltate bilaterally Minimally decreased breath sound bilaterally Heart-regular,no murmur appreciated Abdomen-Benign,no masses,bowel sound present Extremities-Trace edema bilaterally Generalized bruising More Right UE,s/p Cardiac cath-but improving Neuro-AAOx3 Has chronic limited mobility Lab data as noted below. ASSESSMENT & PLAN: CHEST PAIN /HEAVINESS : Negative ACS ,Negative Cardiac cath Intermittent symptoms of past few months Not related to exertion ,mentions it can happen any time of day /any time -she could be working on computer and get the discomfort Noted to have Labile BP with Headache Troponin mildly elevated ECHO at [facility] : 09/19/17 LV wall thickness severely increased ( concentric ) borderline diffuse left ventricular hypokinesis LV EF 50-54 % Left ventricular diastolic function is mildly abnormal ( Grade 1) aortic valve mildly calcified , aortic stenosis absent There is heavy calcification of the posterior mitral valve annulus extending into the posterior leaflet Mitral Stenosis absent left atrium moderately enlarged ECHO om 09/27/17::There is borderline global hypokinesis of the left ventricle. * Left ventricular systolic function is low normal. * Ejection Fraction = 50-55%. * The left atrium is mildly dilated. * There is severe mitral annular calcification. * Significant mitral regurgitation is absent. * There is no mitral valve stenosis. * Grade I diastolic dysfunction, (abnormal relaxation pattern). Dobutamine Stress test was aborted as BP was significantly high on presentation ( 201/104) Appreciate cardiology input Denies any more symptoms Has been getting PT Likely home when INR is therapeutic Remains stable without any symptoms Hypercoagulable state /presents with low INR 1.2 limited mobility at baseline , wheel chair bound high risk for thromboembolism /PE CTA-negative for any Pul Embolism Continue anticoagulation-with heparin Hold Coumadin fro now and on IV heparin Will restart Coumadin and Heparin after the cath Will d/c when INR is therapeutic INR 1.6 today Will get usual dose of Coumadin today Likely discharge tomorrow HTN : Labile BP stable 140/77 cont Atenolol 100 mg daily given recurrent symptom of angina /episode of hypertensive urgency -may need alternate Beta hayden ( Metoprolol ) added ACEI -lisinopril 2.5 mg daily -given borderline low EF Carvedilol started and Lisinopril discontinued BP remains stable DEPRESSION : Cont Cymbalta Amitriptyline HS CKD STAGE 3 : Cr at baseline follow PRP LIMITED MOBILITY /CHRONIC BILAT KNEE ARTHRITIS : hx of tibial Plateau Fx in March 2017 , has been wheel chair bound since bilateral knee arthritis ordered for PT/OT eval -ongoing 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 Hold fro cath on Saturday Continue Heparin Will start Coumadin INR not therapeutic yet CODE STATUS : FULL CODE discussed with pt DISPOSITION : expected to be discharged home when medically stable at baseline non ambulatory /uses wheel chair PT/OT eval Discharge home when INR is Therapeutic Vital Signs: Date Time Temp Pulse Resp B/P (MAP) Pulse Ox O2 Delivery O2 Flow Rate FiO2 10/03/17 08:00 Room Air 10/03/17 07:15 36.2 62 20 138/70 (92) 94 Room Air 10/03/17 00:32 Room Air 10/02/17 23:34 36.8 75 20 100/65 (77) 92 Room Air 10/02/17 16:00 Room Air 10/02/17 15:05 36.5 81 18 136/76 (96) 97 Room Air Lab Results: Results Past 24 Hours Test 10/03/17 07:34 10/03/17 08:15 Range/Units Prothrombin Time 16.4 9.0-12.0 SECONDS Prothromb Time International Ratio 1.6 0.9-1.1 Activated Partial Thromboplast Time 80.7 21.0-31.0 SECONDS Partial Thromboplastin Ratio 3.1 Sodium Level 140 136-145 mmol/L Potassium Level 3.8 3.5-5.1 mmol/L Chloride Level 106 98-107 mmol/L Carbon Dioxide Level 24 21-32 mmol/L Anion Gap 10.0 3-11 mmol/L Blood Urea Nitrogen 18 7-18 mg/dl Creatinine 1.17 0.60-1.20 mg/dl Est Creatinine Clear Calc Drug Dose 52.3 ml/min Estimated GFR () 52.8 Estimated GFR (Non- 45.5 BUN/Creatinine Ratio 15.6 10-20 Random Glucose 83 70-99 mg/dl Calcium Level 9.0 8.5-10.1 mg/dl
[2017-10-03 14:59] VITALS: BP 128/70; PULSE 81; TEMP 36.7; O2SAT 94
[2017-10-03 15:32] LABS: PTT PATIENT 69.9 SECONDS (21.0-31.0)
[2017-10-03] MEDS: WARFARIN SOD 5 MG TAB PO SCH (16:36)
[2017-10-03] MEDS: ACETAMINOPHEN 325 MG TAB PO PRN (19:46)
[2017-10-03] MEDS: AMITRIPTYLINE HCL 25 MG TAB PO SCH (19:51)
[2017-10-03] MEDS: SIMVASTATIN 20 MG TAB PO SCH (19:51)
[2017-10-03 19:52] VITALS: BP 97/62; PULSE 91
[2017-10-03 22:23] LABS: PTT PATIENT 61.8 SECONDS (21.0-31.0)
[2017-10-03 22:37] VITALS: BP 109/71; PULSE 82
[2017-10-04 00:39] VITALS: BP 120/70; PULSE 69; TEMP 36.6; O2SAT 91
[2017-10-04] MEDS: LEVOTHYROXINE 25 MCG TAB PO SCH (05:58)
[2017-10-04 07:09] LABS: PTT PATIENT 74.4 SECONDS (21.0-31.0)
[2017-10-04] MEDS: HEPARIN 25,000 UNIT/500ML D5W 500 ML IV PRN ×3 (07:18→09:22)
[2017-10-04 08:35] VITALS: BP 136/60; PULSE 81; TEMP 36.6; O2SAT 94
[2017-10-04] MEDS: FLUTICASONE/SALMETEROL 250/50 (ADVAIR) 14 PUFF/1 INHALER INH SCH (09:22)
[2017-10-04] MEDS: CALCIUM CARBONATE 500 MG CHEWABLE PO SCH (09:23)
[2017-10-04] MEDS: CARVEDILOL 12.5 MG TAB PO SCH (09:23)
[2017-10-04] MEDS: LISINOPRIL 5 MG TAB PO SCH (09:23)
[2017-10-04] MEDS: CHOLECALCIFEROL 1000 INTER.UNIT TAB PO SCH (09:23)
[2017-10-04] MEDS: ASPIRIN 81 MG ECTAB PO SCH (09:23)
[2017-10-04] MEDS: DULOXETINE HCL 60 MG CAP PO SCH (09:23)
[2017-10-04 10:35] LABS: INR 1.9 (0.9-1.1)
[2017-10-04] MEDS ORDERED: LSN5 PO (12:32)
[2017-10-04] MEDS ORDERED: CRG125 PO (12:32)
[2017-10-04] MEDS ORDERED: ASPEC81 PO (12:32)
--- NOTE | 2017-10-04 12:34 | Discharge Instructions ---
Discharge Instructions Date of Service Oct 04, 2017. Admission Reason for Admission: Chest Pain Discharge Discharge Diagnosis / Problem: chest pain Discharge Goals Goal(s): Decrease discomfort, Improve function Activity Recommendations Activity Limitations: resume your previous activity . Instructions / Follow-Up Instructions / Follow-Up FOLLOWUP WITH FAMILY DOCTOR DR.NEW CARVER ON Sep AT 1:45PM FOLLOWUP WITH COUMADIN CLINIC SCHEDULED COMING SATURDAY. LAB: BMP IN ONE WEEK AND FOLLOW RESULTS WITH FAMILY DOCTOR STARTED ON LISINOPRIL. PLEASE GO THROUGH MEDICATION LIST CAREFULLY. Current Hospital Diet Patient's current hospital diet: AHA Diet (Heart Healthy) Discharge Diet Recommended Diet: AHA Diet (Heart Healthy) Pending Studies Studies pending at discharge: no Laboratory Results Lipid Panel Test 09/27/17 05:52 Range/Units Triglycerides Level 131 0-150 mg/dl Cholesterol Level 205 H 0-200 mg/dl HDL Cholesterol 86 mg/dl Cholesterol/HDL Ratio 2.4 LDL Cholesterol, Calculated 93 mg/dl Medical Emergencies . Who to Call and When: Medical Emergencies: If at any time you feel your situation is an emergency, please call 911 immediately. . Non-Emergent Contact Non-Emergency issues call your: Primary Care Provider . . "Provider Documentation" section prepared by Jaskaran Washington. . VTE Core Measure Inpt VTE Proph given/why not?: Unfractionated heparin SQ, Warfarin (Coumadin)
[2017-10-04 13:29] VITALS: BP 136/60; PULSE 81; TEMP 36.6; O2SAT 94
--- NOTE | 2017-10-04 19:04 | Progress Note ---
Internal Med Progress Note Date of Service: Oct 04, 2017. Provider Documentation: SUBJECTIVE: resting comfortably ambulating ok no chest pain or sob afebrile wants to go home OBJECTIVE: Vital Signs-as noted below Exam: General-alert and oriented. Not in distress ENT-normal hearing Neck-no neck masses Lungs-cta b/l no wheezing or crackles Heart-s1 and s2 heard regular rate and rhythm no murmurs Abdomen-soft bowel sounds present non tender no distension Extremities-no edema no erythema Neuro-alert and awake moves extremities Lab data as noted below. ASSESSMENT & PLAN: CHEST PAIN /HEAVINESS : Negative ACS ,Negative Cardiac cath Intermittent symptoms of past few months Noted to have Labile BP with Headache Troponin mildly elevated ECHO om 09/27/17::There is borderline global hypokinesis of the left ventricle. * Normal EF Dobutamine Stress test was aborted as BP was significantly high on presentation ( 201/104) s/p cardiac cath-mild non obstructive disease Atenol changed to coreg. currently asymptomatic f/u with pcp and cardiology Hypercoagulable state /presents with low INR 1.2 limited mobility at baseline , wheel chair bound high risk for thromboembolism /PE CTA-negative for any Pul Embolism started on iv heparin home coumadin inr 1.9 today has appointment with Coumadin clinic on coming Saturday HTN : Labile BP stable 140/77 stopped atenolol started on Coreg and lisinopril stable f/u with pcp. 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 Coumadin was Held for cath iv Heparin restarted Coumadin INR 1.9 today discharged home Vital Signs: Date Time Temp Pulse Resp B/P (MAP) Pulse Ox O2 Delivery O2 Flow Rate FiO2 10/04/17 13:29 36.6 81 18 94 Room Air 10/04/17 08:35 36.6 81 18 136/60 (85) 94 Room Air 10/04/17 07:45 Room Air 10/04/17 00:39 36.6 69 18 120/70 (87) 91 Room Air 10/04/17 00:10 Room Air 10/03/17 22:37 82 109/71 (84) 10/03/17 20:10 Room Air 10/03/17 19:52 91 97/62 (74) Lab Results: Results Past 24 Hours Test 10/03/17 21:44 10/04/17 06:16 10/04/17 10:14 Range/Units Activated Partial Thromboplast Time 61.8 74.4 21.0-31.0 SECONDS Partial Thromboplastin Ratio 2.4 2.9 Prothrombin Time 20.1 9.0-12.0 SECONDS Prothromb Time International Ratio 1.9 0.9-1.1
--- NOTE | 2017-10-04 19:19 | Discharge Summary ---
Discharge Summary Date of Service Oct 04, 2017. Discharge Summary Admission Date: Oct 01, 2017 at 11:05 Discharge Date: Oct 04, 2017 Discharge Disposition: Home Principal Diagnosis: CHEST PAIN HTN-LABILE Secondary Diagnoses/Problems: (1) Asthma Status: Chronic (2) Benign hypertension Status: Chronic (3) Bronchitis Status: Chronic (4) Hypothyroidism Status: Chronic (5) Low back pain Status: Chronic (6) Pulmonary embolism Status: Chronic Procedures: VENOUS DOPPLER: 1. There is no sonographic evidence of deep venous thrombosis identified in the right or left lower extremity. 2. Bilateral popliteal cysts. CTA CHEST: 1. There is no evidence of pulmonary embolus in the main, lobar, or segmental pulmonary arteries. 2. There is no airspace consolidation typical for pneumonia or pleural effusion. 3. There is chronic elevation of the right hemidiaphragm with near-complete atelectasis of the right lower lung. 4. 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 ECHO: There is borderline global hypokinesis of the left ventricle. * Left ventricular systolic function is low normal. * Ejection Fraction = 50-55%. * The left atrium is mildly dilated. * There is severe mitral annular calcification. * Significant mitral regurgitation is absent. * There is no mitral valve stenosis. * Grade I diastolic dysfunction, (abnormal relaxation pattern). S/P CARDIAC CATH Consultations: CARDIOLOGY Medication Reconciliation New Medications: Carvedilol (Carvedilol) 12.5 Mg Tab 12.5 MG PO BID, #60 TAB 2 Refills Lisinopril (Lisinopril) 5 Mg Tab 5 MG PO QAM, #30 TAB 2 Refills Continued Medications: Albuterol Hfa (Ventolin Hfa) 200 Puffs/56961 Mcg Aers 2 PUFFS INH QID, #1 INHALER Alendronate Sodium (Alendronate Sodium) 70 Mg Tab 70 MG PO WK Amitriptyline Hcl (Elavil) 25 Mg Tab 25 MG PO HS, TAB Calcium Carbonate (Tums) 500 Mg Chew 1-2 TABLETS PO PRN Cholecalciferol (Vitamin D3) 1,000 Inter.unit Tab 1000 UNITS PO DAILY Duloxetine Hcl (Cymbalta) 60 Mg Cap 60 MG PO DAILY, 3 Refills Fluticasone Prop/Salmeterol (Advair Diskus 250/50 60 Dose) 1 Ea Aerp 1 PUFF INH BID, INHALER Home O2 Therapy (Oxygen) Gas 2 LITERS NA UD Levothyroxine Sodium (Synthroid) 25 Mcg Tab 25 MCG PO DAILY, TAB Simvastatin (Zocor) 20 Mg Tab 20 MG PO QPM, 0 Refills Sumatriptan Succinate (Imitrex) 100 Mg Tab 100 MG PO PRN, TAB Warfarin Sod (Jantoven) 5 Mg Tab 5 MG PO DAILY Discontinued Medications: Atenolol (Tenormin) 100 Mg Tab 100 MG PO DAILY Admission Information HPI (per Admitting provider): 77 yo f with medical hx of HTN , 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 , dyslipidemia , CKD stage 3 , 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 , was seen recently by Cardiology on 09/12/17 for chest discomfort on and off her symptom been going on for 1 yr-happens intermittently , not related to exertion or position pt was scheduled for Dobutamine stress test at [facility] clinic on 09/19/17 , was cancelled due to Hypertensive urgency on presentation BP 210/104 today pt presents to ER with similar central chest heaviness , had similar episode yesterday at 5 pm pt was sitting on her chair -felt some one sitting on her chest , numbness on her rt arm and " funny sensation " on left jaw no nausea or SOB , associated with dizzy spell and lightheadedness Her chest discomfort persisted in ER , eased up after getting SL during my interview pt still rates her discomfort at 4/10 , but appeared to be comfortable Vitals stable in ER , Lab works including Jamar -unremarkable , EKG unchanged pt will be hospitalized for Observation and Cardiac work up Physical Exam (per Admitting): General Appearance: no apparent distress Eyes: normal inspection, sclerae normal ENT: normal ENT inspection, hearing grossly normal Neck: thyroid normal, no JVD, no carotid bruits, trachea midline Respiratory/Chest: chest non-tender, lungs clear, normal breath sounds, no respiratory distress, no accessory muscle use Cardiovascular: regular rate, rhythm, no JVD, normal peripheral pulses, + pertinent finding (chest wall tenderness on palpation of left upper ) Abdomen/GI: normal bowel sounds, non tender, soft Extremities/Musculoskelatal: + pedal edema (+ 1-2 ), + pertinent finding (+ edema 1-2/chronic venous statis change ) Neurologic/Psych: no motor/sensory deficits, alert, oriented x 3 Hospital Course CHEST PAIN /HEAVINESS : Negative ACS ,Negative Cardiac cath Intermittent symptoms of past few months Noted to have Labile BP with Headache Troponin mildly elevated ECHO om 09/27/17::There is borderline global hypokinesis of the left ventricle. * Normal EF Dobutamine Stress test was aborted as BP was significantly high on presentation ( 201/104) s/p cardiac cath-mild non obstructive disease Atenol changed to coreg. currently asymptomatic f/u with pcp and cardiology Hypercoagulable state /presents with low INR 1.2 limited mobility at baseline , wheel chair bound high risk for thromboembolism /PE CTA-negative for any Pul Embolism started on iv heparin home coumadin inr 1.9 today has appointment with Coumadin clinic on coming Saturday HTN : Labile BP stable 140/77 stopped atenolol started on Coreg and lisinopril stable f/u with pcp. 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 Discharge Instructions Discharge Instructions Date of Service Oct 04, 2017. Admission Reason for Admission: Chest Pain Discharge Discharge Diagnosis / Problem: chest pain Discharge Goals Goal(s): Decrease discomfort, Improve function Activity Recommendations Activity Limitations: resume your previous activity . Instructions / Follow-Up Instructions / Follow-Up FOLLOWUP WITH FAMILY DOCTOR DR.NEW CARVER ON Sep AT 1:45PM FOLLOWUP WITH COUMADIN CLINIC SCHEDULED COMING SATURDAY. LAB: BMP IN ONE WEEK AND FOLLOW RESULTS WITH FAMILY DOCTOR STARTED ON LISINOPRIL. PLEASE GO THROUGH MEDICATION LIST CAREFULLY. Current Hospital Diet Patient's current hospital diet: AHA Diet (Heart Healthy) Discharge Diet Recommended Diet: AHA Diet (Heart Healthy) Pending Studies Studies pending at discharge: no Laboratory Results Lipid Panel Test 09/27/17 05:52 Range/Units Triglycerides Level 131 0-150 mg/dl Cholesterol Level 205 H 0-200 mg/dl HDL Cholesterol 86 mg/dl Cholesterol/HDL Ratio 2.4 LDL Cholesterol, Calculated 93 mg/dl Medical Emergencies . Who to Call and When: Medical Emergencies: If at any time you feel your situation is an emergency, please call 911 immediately. . Non-Emergent Contact Non-Emergency issues call your: Primary Care Provider . . "Provider Documentation" section prepared by Jaskaran Washington. . VTE Core Measure Inpt VTE Proph given/why not?: Unfractionated heparin SQ, Warfarin (Coumadin)
== END 2017-10-04 14:06 | disposition home or self-care (01) | DRG 287 ==
LOC: C.EDB 10:51 → C.MED 12:23 → ENRESERV 15:24 → C.2T 09-30 14:33 → OBSVTOIN 10-01 11:05 → C.MS2W 10-01 15:23 → ENRESERV 10-01 16:09
PROVIDERS: ADMIT Hospitalist; ATTEND Internal Medicine
PROC: 4A023N7 Measurement of Cardiac Sampling and Pressure, Left Heart, Percutaneous Approach (ICD-10-PCS; principal; 2017-09-30 12:26)
PROC: B211YZZ Fluoroscopy of Multiple Coronary Arteries using Other Contrast (ICD-10-PCS; principal; 2017-09-30 12:26)
DX: R07.89 Other chest pain (principal); D68.59 Other primary thrombophilia; I12.9 Hypertensive chronic kidney disease with stage 1 through stage 4 chronic kidney disease, or unspecified chronic kidney disease; E03.9 Hypothyroidism, unspecified; N18.3 Chronic kidney disease, stage 3 (moderate); F32.9 Major depressive disorder, single episode, unspecified; M17.0 Bilateral primary osteoarthritis of knee; J45.909 Unspecified asthma, uncomplicated; Z79.01 Long term (current) use of anticoagulants; Z79.899 Other long term (current) drug therapy; Z99.3 Dependence on wheelchair; Z88.2 Allergy status to sulfonamides; Z88.6 Allergy status to analgesic agent; Z83.3 Family history of diabetes mellitus; Z86.718 Personal history of other venous thrombosis and embolism

== ENCOUNTER → 2017-10-30 | Outpatient (CLI) | payer OTHER ==
[~2017-10-30] MED LIST changes: -ADVIN25050 INH; -ATEN50TA8 PO; +CRG125 PO; +FSM70 PO; -KETO0.024 OP; +LSN5 PO; +WARF5TAB7 PO
== END | disposition home or self-care (01) ==
LOC: C.RDSM 08:57
PROVIDERS: ATTEND Orthopaedic Surgery Sports Medicine
DX: S82.135D Nondisplaced fracture of medial condyle of left tibia, subsequent encounter for closed fracture with routine healing (principal); X58.XXXD Exposure to other specified factors, subsequent encounter

== ENCOUNTER 2019-02-06 12:37 | Inpatient (IN) ==
--- NOTE | 2019-02-06 13:12 | XRay Report ---
XR chest 1V portable CLINICAL HISTORY: Chest Pain dyspnea COMPARISON STUDY: 09/26/2017 FINDINGS: Chronic elevation right hemidiaphragm. Minimal interstitial change left base considered chr onic. Lungs otherwise appear clear. IMPRESSION: No acute process. The above report was generated using voice recognition software. It may contain grammatical, syntax or spelling errors. Electronically signed by: Minh Callaway M.D. 02/06/2019 1:10 PM
[2019-02-06 13:43] LABS: Basophils # (auto) 0.02 K/uL (0-0.2); Basophils % (auto) 0.3 %; Eosinophils # (auto) 0.15 K/uL (0-0.5); Eosinophils % (auto) 2.3 %; Hematocrit (blood only) 31.8 % (37-47); Hemoglobin 10.4 g/dL (12.0-16.0); Immature Granulocytes # (auto) 0.01 K/uL (0.00-0.02); Immature Granulocytes % (auto) 0.2 %; Lymphocytes # (auto) 1.21 K/uL (1.2-3.4); Lymphocytes % (auto) 18.7 %; Mean Corpuscular Hgb Conc 32.7 g/dL (32-36); Monocytes # (auto) 0.47 K/uL (0.11-0.59); Monocytes % (auto) 7.3 %; Neutrophils % (auto) 71.2 %; Platelet Count 199 K/uL (130-400); RDW Coefficient of Variation 12.8 % (11.5-14.5); RDW Standard Deviation 48.9 fL (36.4-46.3); White Blood Count 6.46 K/uL (4.8-10.8)
[2019-02-06 14:01] LABS: Albumin Level 2.8 gm/dl (3.4-5.0); BUN Creatinine Ratio 15.9 (10-20); Blood Urea Nitrogen 18 mg/dl (7-18); Calcium 8.6 mg/dl (8.5-10.1); Carbon Dioxide 28 mmol/L (21-32); Chloride 106 mmol/L (98-107); Creatinine Clr Calc Pharmacy 53.9 ml/min; Est GFR (African American) 55.9; Est GFR (Non-African American) 48.2; Glucose 103 mg/dl (70-99); Potassium 4.2 mmol/L (3.5-5.1); Sodium 140 mmol/L (136-145)
[2019-02-06 14:06] LABS: Alanine Aminotransferase 11 U/L (12-78); Albumin Globulin Ratio 0.8 (0.9-2); Alkaline Phosphatase 67 U/L (45-117); Aspartate Aminotransferase 14 U/L (15-37); Bilirubin,Total 0.7 mg/dl (0.2-1); Globulin 3.4 gm/dl (2.5-4.0); INR 2.3 (0.9-1.1); Partial Thromboplastin Ratio 1.3; Partial Thromboplastin Time 33.9 Seconds (21.0-31.0); Prothrombin Time 22.4 Seconds (9.0-12.0); Total Protein 6.2 gm/dl (6.4-8.2); Troponin I < 0.015 ng/ml (0-0.045)
[2019-02-06 14:20] LABS: D Dimer 1900 ug/L FEU (0-500)
[2019-02-06] MEDS ORDERED: OPTIRAY 320 125ml IV PRN (15:38)
--- NOTE | 2019-02-06 15:55 | CT Scan Report ---
CT angio chest PE protocol CT DOSE: 980.58 mGy.cm HISTORY: Chest pain. Dyspnea. PE TECHNIQUE: Multiaxial CT images of the chest were performed following the intravenous administration of contrast to evaluate the pulmonary arteries. Maximal intensity projection images were also obtaine d. A dose lowering technique was utilized adhering to the principles of ALARA. COMPARISON STUDY: 09/26/2017 FINDINGS: The thoracic aorta shows mild atherosclerotic change. No evidence for aneurysm or dissectio n. The pulmonary vasculature enhances appropriately. There is no evidence for significant filling defect . Attenuation of the hilar and mediastinal regions show several nodes which remains stable from the janine or exam. Evaluation of lung parenchyma demonstrates development of a small patchy parenchymal infiltrate right base. There is a trace amount pleural fluid at the left lung base. There is a slight amount of chron ic pleural thickening bilaterally. The appearance of the upper abdomen is similar. The peripherally calcified right renal cyst as well a s configuration of liver remains stable. IMPRESSION: 1. Study is negative for pulmonary embolus. 2. Chronic and postoperative changes as discussed. 3. Small parenchymal infiltrate right lung base involving the inferior right lower lobe. 4. Minimal left pleural effusion with a trace amount pleural fluid right base. The above report was generated using voice recognition software. It may contain grammatical, syntax or spelling errors. Electronically signed by: Minh Callaway M.D. 02/06/2019 3:54 PM
[2019-02-06] MEDS ORDERED: cefTRIAXone SODIUM 1,000 MG/50 ML BAG IV STA ×2 (16:18→18:06)
--- NOTE | 2019-02-06 17:02 | Emergency Department Note ---
Entered by Smith Chen acting as a scribe for Vimal Joy DO History of Present Illness General Chief complaint: Chest Pain Stated complaint: CHEST PAINS Time Seen by Provider: 02/06/19 12:55 Source: patient History of Present Illness Onset (ago): week(s) 1 Location: chest Pain Consistency: + intermittent Quality: + other (shortness of breath, chest pain) Exacerbated By: + other (lying down) Associated symptoms: + cough The patient is a 78 year old female who presents to the Emergency Room with complaints of intermittent chest pain and shortness of breath beginning one week ago that became constant today. The patient reports that her symptoms are worsened when lying down. She notes a dry cough. She states that she does not have a history of these symptoms and has not seen anyone for her current pain. She denies history of VT, stress test or cardiac catheterization. She also denies fevers, leg swelling/pain, history of smoking, or history of emphysema. She states that she wears supplemental oxygen at night. The patient reports that she is on blood thinners. She states that she has a history of PE that traveled from her leg after cholecystectomy. She notes that she did not take her medications today. Home Medications Home Medications Medication Instructions Recorded Confirmed Type Blue Emu 1 applic TOPICAL 3XWK 11/10/18 02/06/19 History acetaminophen [Tylenol] 650 mg PO HS 11/10/18 02/06/19 History albuterol sulfate [Ventolin HFA] 2 puff INHALATION QID PRN 11/10/18 02/06/19 History alendronate 70 mg PO WK 11/10/18 02/06/19 History amitriptyline 25 mg PO HS 11/10/18 02/06/19 History carvedilol 12.5 mg PO BID 11/10/18 02/06/19 History cholecalciferol (vitamin D3) 5,000 unit PO HS 11/10/18 02/06/19 History [Vitamin D3] duloxetine 60 mg PO HS 11/10/18 02/06/19 History gabapentin 200 mg PO TID 11/10/18 02/06/19 History hydrocodone-acetaminophen 1 - 2 tab PO UD 11/10/18 02/06/19 History levothyroxine 25 mcg PO HS 11/10/18 02/06/19 History lisinopril 5 mg PO QAM 11/10/18 02/06/19 History montelukast 10 mg PO HS 11/10/18 02/06/19 History [id number]-CH 4 drp OTL TID PRN 11/10/18 02/06/19 History simvastatin 20 mg PO HS 11/10/18 02/06/19 History sumatriptan succinate 100 mg PO UD PRN 11/10/18 02/06/19 History warfarin [Jantoven] 5 mg PO HS 11/10/18 02/06/19 History Allergies Allergy/AdvReac Type Severity Reaction Status Date / Time aspirin Allergy Unknown UNKNOWN Verified 02/06/19 14:13 Sulfa (Sulfonamide Allergy Unknown Unknown Verified 02/06/19 14:13 Antibiotics) Past Med/Surg History Medical History Atrial flutter 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 and A total of 10 systems reviewed and were otherwise negative Physical Exam Vital Signs Vital Signs - 24 hr 02/06/19 12:46 02/06/19 12:59 02/06/19 14:15 Temperature 36.9 C Temperature Source Oral Sepsis Recent Fever Within 48 Hours Yes Sepsis Action Taken by Nursing No Action Required Pulse Rate 80 Pulse Rate [Left Finger] 76 Respiratory Rate 14 18 Respiratory Effort / Characteristics Short of Breath Respiratory Depth Normal Respiratory Pattern Rapid/Shallow Blood Pressure 144/88 H Blood Pressure [Right Arm] 167/99 H Blood Pressure Mean 106 Blood Pressure Mean [Right Arm] 121 Pulse Oximetry 92 97 96 Oxygen Delivery Method Room Air Room Air Nasal Cannula Oxygen Flow Rate 2 02/06/19 14:33 02/06/19 15:44 02/06/19 16:35 Temperature Temperature Source Sepsis Recent Fever Within 48 Hours Sepsis Action Taken by Nursing Pulse Rate Pulse Rate [Left Finger] 82 107 H Respiratory Rate 24 32 H Respiratory Effort / Characteristics Respiratory Depth Respiratory Pattern Blood Pressure Blood Pressure [Right Arm] 156/71 H Blood Pressure Mean Blood Pressure Mean [Right Arm] 99 Pulse Oximetry 95 96 92 Oxygen Delivery Method Nasal Cannula Nasal Cannula Room Air Oxygen Flow Rate 2 2 02/06/19 16:44 02/06/19 18:07 Temperature Temperature Source Sepsis Recent Fever Within 48 Hours Sepsis Action Taken by Nursing Pulse Rate Pulse Rate [Left Finger] 88 101 H Respiratory Rate 20 26 H Respiratory Effort / Characteristics Respiratory Depth Respiratory Pattern Blood Pressure Blood Pressure [Right Arm] 202/87 H 213/164 H Blood Pressure Mean Blood Pressure Mean [Right Arm] 125 180 Pulse Oximetry 99 100 Oxygen Delivery Method Nasal Cannula Nasal Cannula Oxygen Flow Rate 2 2 GENERAL: Patient is awake and alert. She is mildly anxious but comfortable appearing. EYES: The conjunctivae are clear. The pupils are round and reactive. EARS, NOSE, MOUTH AND THROAT: The nose is without any evidence of any deformity. Mucous membranes are moist.Tongue is midline NECK: The neck is nontender and supple. RESPIRATORY: Shallow respirations noted. No tachypnea or conversational dyspnea noted. CARDIOVASCULAR: Regular rate and rhythm noted. There no murmurs rubs or gallops normal S1 normal S2 GASTROINTESTINAL: The abdomen is soft. Bowel sounds are present in all quadrants. Abdomen is nontender. MUSCULOSKELETAL/EXTREMITIES: There is no evidence of gross deformity. Full range of motion is noted in the hips and shoulders. SKIN: There is no obvious evidence of any rash. There are no petechiae, pallor or cyanosis noted. NEUROLOGIC: Patient is awake alert and oriented x3. Course 1258: The patient was evaluated in room B12A. A complete history and physical examination were performed. 1642: The nurse states that the patient performed an ambulatory trial, and her oxygen saturation remained stable. 1654: The patient walked again and became tachypneic. 1656: I consulted Angy Dumont PA-C: [facility] Hospitalist. The patient will be reevaluated for hospitalization. Administered Medications Ioversol (Optiray 320 125ml) 97 ml IV ONCE PRN PRN Reason: Interaction Checking Stop: 02/10/19 15:37 Last Admin: 02/06/19 15:38 Dose: 97 ml Documented by: [id number] Discontinued Medications Ceftriaxone Sodium (Rocephin) 1,000 mg in 50 mls @ 100 mls/hr IV NOW STA Stop: 02/06/19 16:47 Last Infusion: 02/06/19 17:05 Dose: 0 mls/hr Documented by: [id number] Admin: 02/06/19 16:41 Dose: 100 mls/hr Documented by: [id number] Medical Decision Making Differential Diagnosis Differential diagnosis includes: cardiac ischemia, aortic dissection, pulmonary embolism, pneumonia, pneumothorax, musculoskeletal, infections, pericarditis, myocarditis, esophageal rupture, gastrointestinal, as well as others were entertained. Medical Records Attestation: I reviewed the patient's medical records. Home Medications Current Medication List: was personally reviewed by me Laboratory Data Attestation: I reviewed the patient's lab results. Result diagrams: 02/06/19 13:37 02/06/19 13:37 Lab Results 02/06/19 02/06/19 02/06/19 Range/Units 13:37 13:37 13:37 WBC 6.46 (4.8-10.8) K/uL RBC 3.00 L (4.2-5.4) M/uL Hgb 10.4 L (12.0-16.0) g/dL Hct 31.8 L (37-47) % MCV 106.0 H (80-100) fL MCH 34.7 H (25-34) pg MCHC 32.7 (32-36) g/dL RDW Std Deviation 48.9 H (36.4-46.3) fL RDW Coeff of Vijay 12.8 (11.5-14.5) % Plt Count 199 (130-400) K/uL MPV 10.0 (7.4-10.4) fL Immature Gran % (Auto) 0.2 % Neut % (Auto) 71.2 % Lymph % (Auto) 18.7 % Parker % (Auto) 7.3 % Eos % (Auto) 2.3 % Baso % (Auto) 0.3 % Immature Gran # (Auto) 0.01 (0.00-0.02) K/uL Neut # (Auto) 4.60 (1.4-6.5) K/uL Lymph # (Auto) 1.21 (1.2-3.4) K/uL Parker # (Auto) 0.47 (0.11-0.59) K/uL Eos # (Auto) 0.15 (0-0.5) K/uL Baso # (Auto) 0.02 (0-0.2) K/uL PT 22.4 H (9.0-12.0) Seconds INR 2.3 H (0.9-1.1) APTT 33.9 H (21.0-31.0) Seconds PTT Ratio 1.3 D-Dimer 1900 H* (0-500) ug/L FEU Sodium 140 (136-145) mmol/L Potassium 4.2 (3.5-5.1) mmol/L Chloride 106 (98-107) mmol/L Carbon Dioxide 28 (21-32) mmol/L Anion Gap 7.0 (3-11) BUN 18 (7-18) mg/dl Creatinine 1.11 (0.6-1.2) mg/dl Est Cr Clr Drug Dosing 53.9 ml/min Est GFR ( Amer) 55.9 Est GFR (Non-Af Amer) 48.2 BUN/Creatinine Ratio 15.9 (10-20) Glucose 103 H (70-99) mg/dl Calcium 8.6 (8.5-10.1) mg/dl Total Bilirubin 0.7 (0.2-1) mg/dl AST 14 L (15-37) U/L ALT 11 L (12-78) U/L Alkaline Phosphatase 67 (45-117) U/L Troponin I < 0.015 (0-0.045) ng/ml Total Protein 6.2 L (6.4-8.2) gm/dl Albumin 2.8 L (3.4-5.0) gm/dl Globulin 3.4 (2.5-4.0) gm/dl Albumin/Globulin Ratio 0.8 L (0.9-2) Lipase 28 L (73-393) U/L Procalcitonin (0-0.5) ng/ml 02/06/19 Range/Units 18:18 WBC (4.8-10.8) K/uL RBC (4.2-5.4) M/uL Hgb (12.0-16.0) g/dL Hct (37-47) % MCV (80-100) fL MCH (25-34) pg MCHC (32-36) g/dL RDW Std Deviation (36.4-46.3) fL RDW Coeff of Vijay (11.5-14.5) % Plt Count (130-400) K/uL MPV (7.4-10.4) fL Immature Gran % (Auto) % Neut % (Auto) % Lymph % (Auto) % Parker % (Auto) % Eos % (Auto) % Baso % (Auto) % Immature Gran # (Auto) (0.00-0.02) K/uL Neut # (Auto) (1.4-6.5) K/uL Lymph # (Auto) (1.2-3.4) K/uL Parker # (Auto) (0.11-0.59) K/uL Eos # (Auto) (0-0.5) K/uL Baso # (Auto) (0-0.2) K/uL PT (9.0-12.0) Seconds INR (0.9-1.1) APTT (21.0-31.0) Seconds PTT Ratio D-Dimer (0-500) ug/L FEU Sodium (136-145) mmol/L Potassium (3.5-5.1) mmol/L Chloride (98-107) mmol/L Carbon Dioxide (21-32) mmol/L Anion Gap (3-11) BUN (7-18) mg/dl Creatinine (0.6-1.2) mg/dl Est Cr Clr Drug Dosing ml/min Est GFR ( Amer) Est GFR (Non-Af Amer) BUN/Creatinine Ratio (10-20) Glucose (70-99) mg/dl Calcium (8.5-10.1) mg/dl Total Bilirubin (0.2-1) mg/dl AST (15-37) U/L ALT (12-78) U/L Alkaline Phosphatase (45-117) U/L Troponin I (0-0.045) ng/ml Total Protein (6.4-8.2) gm/dl Albumin (3.4-5.0) gm/dl Globulin (2.5-4.0) gm/dl Albumin/Globulin Ratio (0.9-2) Lipase (73-393) U/L Procalcitonin 0.11 (0-0.5) ng/ml Imaging Data Radiologist's Impression: Radiology results as stated below per my review and the radiologist's interpretation: CT angio chest PE protocol CT DOSE: 980.58 mGy.cm HISTORY: Chest pain. Dyspnea. PE TECHNIQUE: Multiaxial CT images of the chest were performed following the intravenous administration of contrast to evaluate the pulmonary arteries. Maximal intensity projection images were also obtained. A dose lowering technique was utilized adhering to the principles of ALARA. COMPARISON STUDY: 09/26/2017 FINDINGS: The thoracic aorta shows mild atherosclerotic change. No evidence for aneurysm or dissection. The pulmonary vasculature enhances appropriately. There is no evidence for sig nificant filling defect. Attenuation of the hilar and mediastinal regions show several nodes which remains stable from the prior exam. Evaluation of lung parenchyma demonstrates development of a small patchy parenchymal infiltrate right base. There is a trace amount pleural fluid at the left lung base. There is a slight amount of chronic pleural thickening bilaterally. The appearance of the upper abdomen is similar. The peripherally calcified right renal cyst as well as configuration of liver remains stable. IMPRESSION: 1. Study is negative for pulmonary embolus. 2. Chronic and postoperative changes as discussed. 3. Small parenchymal infiltrate right lung base involving the inferior right lower lobe. 4. Minimal left pleural effusion with a trace amount pleural fluid right base. The above report was generated using voice recognition software. It may contain grammatical, syntax or spelling errors. Electronically signed by: Minh Callaway M.D. 02/06/2019 3:54 PM XR chest 1V portable CLINICAL HISTORY: Chest Pain dyspnea COMPARISON STUDY: 09/26/2017 FINDINGS: Chronic elevation right hemidiaphragm. Minimal interstitial change left base considered chronic. Lungs otherwise appear clear. IMPRESSION: No acute process. The above report was generated using voice recognition software. It may contain grammatical, syntax or spelling errors. Electronically signed by: Minh Callaway M.D. 02/06/2019 1:10 PM ECG Data Attestation: I personally reviewed and interpreted this ECG as follows: Indication: SOB/dyspnea Rate (beats per minute): 81 Rhythm: normal sinus Findings: + LBBB; no PAC and no PVC Comparison ECG Date: from (09/28/17) Change: no significant change Blood Pressure Blood Pressure Findings: Elevated blood pressure Blood Pressure Disposition: further management by hospitalist ISABEL Shields The patient is a 78-year-old female who presented to the emergency department for an evaluation of difficulty breathing and chest pain. The patient did have a cough. The patient is a history of venous thromboembolic disease. She does take Coumadin. I discussed the patient's laboratory and radiographic studies with her. CT the chest was obtained because of an elevated d-dimer. This did not reveal any signs of pulmonary embolus but did show signs of pneumonia. The patient was then treated with IV antibiotic's. I discussed the patient's laboratory and radiographic studies with her. Initially the patient was evaluated for possible outpatient treatment but when she ambulated she became very tachypneic. She also became very short of breath. For this reason I discussed her case with the on-call [facility] hospitalist group. They have agreed to evaluate the patient in the emergency department for further management and disposition. Impression & Plan Pneumonia, SOB (shortness of breath), Respiratory distress Discharge Plan Visit Data Chief Complaint: Chest Pain Stated Complaint: CHEST PAINS ED Provider: Vimal Joy Discharge Problem: Pneumonia, SOB (shortness of breath), Respiratory distress Patient Disposition: Being Evaluated by Hospitalist Forms Stand Alone Forms: Call Back Authorization, [facility] Prescriptions Prescriptions: No Action acetaminophen [Tylenol] 325 mg Tablet 650 mg PO HS RF: 0 carvedilol 12.5 mg tablet 12.5 mg PO BID RF: 0 sumatriptan succinate 100 mg tablet 100 mg PO UD PRN (Reason: Migraine Headache) RF: 0 hydrocodone-acetaminophen 5-325 mg tablet 1 - 2 tab PO UD RF: 0 alendronate 70 mg tablet 70 mg PO WK RF: 0 levothyroxine 25 mcg tablet 25 mcg PO HS RF: 0 amitriptyline 25 mg tablet 25 mg PO HS RF: 0 simvastatin 20 mg tablet 20 mg PO HS RF: 0 warfarin [Jantoven] 5 mg tablet 5 mg PO HS RF: 0 montelukast 10 mg tablet 10 mg PO HS RF: 0 lisinopril 5 mg tablet 5 mg PO QAM RF: 0 gabapentin 100 mg capsule 200 mg PO TID RF: 0 albuterol sulfate [Ventolin HFA] 90 mcg/actuation Hfa Aerosol Inhaler 2 puff INHALATION QID PRN (Reason: Shortness Of Breath Or Wheezing) RF: 0 [id number]-[id number]-KJ 3.5-10,000-1 mg/mL-unit/mL-% Drops,Suspension 4 drp OTL TID PRN (Reason: ear infection) RF: 0 duloxetine 60 mg capsule,delayed release(DR/EC) 60 mg PO HS RF: 0 cholecalciferol (vitamin D3) [Vitamin D3] 5,000 unit Tablet 5,000 unit PO HS RF: 0 Blue Emu 1 applic topical 3XWK RF: 0 Referrals Referrals: Giorgio Salas DO [Primary Care Provider] - Discharge Problem: Pneumonia Qualifiers: Pneumonia type: due to unspecified organism Laterality: unspecified laterality Lung location: unspecified part of lung Qualified Code(s): J18.9 - Pneumonia, unspecified organism The scribe's documentation has been prepared under my direction and personally reviewed by me in its entirety. I confirm that the note above accurately reflects all work, treatment, procedures, and medical decision making performed by me.
[2019-02-06] MEDS ORDERED: ONDANSETRON INJ 2 MG/ML 2 ML VIAL IV PRN (18:01)
[2019-02-06] MEDS ORDERED: POLYETHYLENE (MIRALAX) 17 GM PACK PO PRN (18:01)
[2019-02-06] MEDS ORDERED: ACETAMINOPHEN 325 MG TAB PO PRN (18:01)
--- NOTE | 2019-02-06 18:22 | History & Physical Report ---
Date of Service February 06, 2019 Assessment & Plan (1) Pneumonia: SOB/Chest pain Community-acquired pneumonia. Chest pain is pleuritic in nature but describes as heaviness CT chest - small RLL infiltrate. No signs of sepsis. No fever, leucocytosis. SaO2 on RA-96% -S/P IV Rocephin in ED. Continue with IV Rocephin, Azithromycin - Day 1 -Albuterol Nebs QID -Sputum cx x 2- ordered -EKG- no acute ischemic changes, Trop x 1 neg, Trend troponin Painful Odynophagia Feels it more in her upper chest - ongoing for few days. Progressed to solids/liquids -Will empirically start on Esophageal candidiasis rx- Fluconazole 400 mg x 1 dose followed by 200 mg daily x 14 days and see if symptoms improves -Speech swallow evaluation ordered Asthma Does have wheezing on exam -Continue with Albuterol Nebs QID -On montelukast at home -Monitor HTN -Continue with coreg, Lisinopril -Monitor Hyperlipidemia -Continue with simvastatin 20 mg q HS Hx of PE -On Warfarin -INR therapeutic -CT scan- no PE (elevated d dimer 1900) -Monitor Hypothyroidism -Continue with levothyroxine Obesity DVT prophylaxis -On coumadin with INR therapeutic Disposition Medical mx in progress Updated by bedside Present on Admission?: Yes History of Present Illness Chief Complaint: Shortness of breath x 2 days Chest pain x 2 days Primary Care Provider: Giorgio Salas DO Patient is a 78-year-old F with past medical history of asthma, hypothyroidism, hypertension, hyperlipidemia, PE on Coumadin comes to ED with complaint of shortness of breath/chest pain for 2 days. Patient was at her baseline level of functioning till few days ago when she started developing some shortness of breath/wheezing. Chest painmidsternal described as feeling heavy, worse with deep inspiration, nonradiating. Developed cough with some mild whitish sputum production. No leg swelling. Denies any sweating, palpitations, nausea, vomiting, diaphoresis. Patient complains of painful swallowing of solid which progressed to liquids. In ED, saturating well on room air but drops on ambulation. Chest x-ray showed no acute abnormality but CT scan chest showed small right lower lobe infiltrate. No leukocytosis or signs of sepsis. EKG shows no acute changes, troponin x1-. Received IV Rocephin in ED. [facility] lobe [facility], community-acquired Allergies Allergy/AdvReac Type Severity Reaction Status Date / Time aspirin Allergy Unknown UNKNOWN Verified 02/06/19 14:13 Sulfa (Sulfonamide Allergy Unknown Unknown Verified 02/06/19 14:13 Antibiotics) Home Medications Home Medications Medication Instructions Recorded Confirmed Type Blue Emu 1 applic TOPICAL 3XWK 11/10/18 02/06/19 History acetaminophen [Tylenol] 650 mg PO HS 11/10/18 02/06/19 History albuterol sulfate [Ventolin HFA] 2 puff INHALATION QID PRN 11/10/18 02/06/19 History alendronate 70 mg PO WK 11/10/18 02/06/19 History amitriptyline 25 mg PO HS 11/10/18 02/06/19 History carvedilol 12.5 mg PO BID 11/10/18 02/06/19 History cholecalciferol (vitamin D3) 5,000 unit PO HS 11/10/18 02/06/19 History [Vitamin D3] duloxetine 60 mg PO HS 11/10/18 02/06/19 History gabapentin 200 mg PO TID 11/10/18 02/06/19 History hydrocodone-acetaminophen 1 - 2 tab PO UD 11/10/18 02/06/19 History levothyroxine 25 mcg PO HS 11/10/18 02/06/19 History lisinopril 5 mg PO QAM 11/10/18 02/06/19 History montelukast 10 mg PO HS 11/10/18 02/06/19 History [id number] 4 drp OTL TID PRN 11/10/18 02/06/19 History simvastatin 20 mg PO HS 11/10/18 02/06/19 History sumatriptan succinate 100 mg PO UD PRN 11/10/18 02/06/19 History warfarin [Jantoven] 5 mg PO HS 11/10/18 02/06/19 History Past Med/Surg History Medical History Atrial flutter Pulmonary embolism (Chronic 10/10/12) Symptomatic anemia Family History Other Family history non-contributory Social History Preferred Language: Portuguese Communication Ability: Effective Visual Impairment: No Limitations Hearing Ability: Normal marital status: Current Living Situation: Spouse current occupational status: retired Feels Safe at Home: Yes Smoking Status: Never smoker Review of Systems Review of Systems: All systems reviewed & are unremarkable except as noted in HPI & below Physical Exam Constitutional: WD/WN, vitals as above + obese Eyes: PERRL, conjunctivae normal, anicteric sclerae ENMT: external ear and nose normal, oropharynx normal Neck: obese Respiratory: Auscultation: + diminished lung sounds and + rhonchi (Left lung) Cardiovascular: RRR, no murmur, no edema Gastrointestinal (Abdomen): normal bowel sounds, soft, nontender, no hepatosplenomegaly Neurologic: no focal motor deficits Results & Data Vital Signs (Past 12 Hours) Vital Signs Temp Pulse Pulse Resp BP BP Pulse Ox 02/06/19 18:07 101 H 26 H 213/164 H 100 02/06/19 16:44 88 20 202/87 H 99 02/06/19 16:35 107 H 32 H 92 02/06/19 15:44 82 24 156/71 H 96 02/06/19 14:33 95 02/06/19 14:15 76 18 167/99 H 96 02/06/19 12:59 97 02/06/19 12:46 36.9 C 80 14 144/88 H 92 (1) Pneumonia Laterality: unspecified laterality Lung location: unspecified part of lung Pneumonia type: due to unspecified organism Qualified Code(s): J18.9 - Pneumonia, unspecified organism
[2019-02-06] MEDS ORDERED: SUMAtriptan succinate 100 MG TAB PO PRN (20:10)
[2019-02-06] MEDS ORDERED: NEOMYCIN/POLYMYX/HYDROCORT OT SUSP 10 ML BTL OTB PRN (20:10)
[2019-02-06] MEDS ORDERED: FLUCONAZOLE 100 MG TAB PO ONE (20:45)
[2019-02-06] MEDS: ALBUTEROL 0.5% NEB SOLN 2.5 MG/0.5 ML VIAL NEB SCH (20:48)
[2019-02-06] MEDS ORDERED: WARFARIN SOD 5 MG TAB PO SCH (21:00)
[2019-02-06] MEDS: SIMVASTATIN 20 MG TAB PO SCH (21:06)
[2019-02-06] MEDS: CARVEDILOL 12.5 MG TAB PO SCH (21:07)
[2019-02-06] MEDS: DULOXETINE HCL 60 MG CAP PO SCH (21:07)
[2019-02-06] MEDS: AMITRIPTYLINE HCL 25 MG TAB PO SCH (21:07)
[2019-02-06] MEDS: GABAPENTIN 100 MG CAP PO SCH (21:07)
[2019-02-06] MEDS: CHOLECALCIFEROL 1,000 UNITS TAB PO SCH (21:07)
[2019-02-06] MEDS: MONTELUKAST SODIUM 10 MG TABLET PO SCH (21:07)
[2019-02-06] MEDS: LISINOPRIL 5 MG TAB PO SCH (21:52)
[2019-02-06] MEDS: LEVOTHYROXINE SODIUM 25 MCG TABLET PO SCH (21:52)
[2019-02-06] MEDS ORDERED: AZITHROMYCIN 250 MG TAB PO ONE (22:00)
[2019-02-07] MEDS: ALBUTEROL 0.5% NEB SOLN 2.5 MG/0.5 ML VIAL NEB SCH ×4 (02:10→19:28)
[2019-02-07 07:03] LABS: INR 3.4 (0.9-1.1); Prothrombin Time 31.7 Seconds (9.0-12.0)
[2019-02-07 07:05] LABS: Hematocrit (blood only) 29.4 % (37-47); Hemoglobin 9.6 g/dL (12.0-16.0); Mean Corpuscular Hgb Conc 32.7 g/dL (32-36); Mean Corpuscular Volume 105.8 fL (80-100); Mean Platelet Volume 9.8 fL (7.4-10.4); Platelet Count 208 K/uL (130-400); RDW Coefficient of Variation 12.9 % (11.5-14.5); RDW Standard Deviation 49.8 fL (36.4-46.3); Red Blood Count 2.78 M/uL (4.2-5.4)
[2019-02-07 07:29] LABS: Calcium 8.7 mg/dl (8.5-10.1); Creatinine Clr Calc Pharmacy 52.6 ml/min; Est GFR (African American) 56.5; Est GFR (Non-African American) 48.7; Potassium 3.9 mmol/L (3.5-5.1)
[2019-02-07] MEDS: PANTOprazole 40 MG TAB PO SCH (08:05)
[2019-02-07] MEDS: GABAPENTIN 100 MG CAP PO SCH ×3 (08:06→20:02)
[2019-02-07] MEDS: CARVEDILOL 12.5 MG TAB PO SCH ×2 (08:06→20:02)
[2019-02-07] MEDS: LISINOPRIL 5 MG TAB PO SCH (08:42)
[2019-02-07] MEDS ORDERED: AZITHROMYCIN 250 MG TAB PO SCH (09:00)
--- NOTE | 2019-02-07 10:42 | Hospitalist Progress Note ---
Date of Service February 07, 2019 Assessment & Plan (1) Pneumonia: SOB/Chest pain Community-acquired pneumonia. Chest pain is pleuritic in nature but describes as heaviness CT chest - small RLL infiltrate. No signs of sepsis. No fever, leucocytosis. SaO2 on RA-96% -S/P IV Rocephin in ED. On IV Rocephin, Azithromycin - Day 2 --> Discontinue Azithromycin and start doxycycline (QTC went up to 522) -Albuterol Nebs QID -Sputum cx x 2- ordered -EKG- no acute ischemic changes, Trop x 2 - negative, CXR/CT scan reviewed- small right LL Painful Odynophagia Feels it more in her upper chest - ongoing for few days. Progressed to solids/liquids. Not associated with weight loss, loss of appetite. Per patient, had some test which from description sounds like EGD 2 months ago. Couldnt find the results in the [facility] outpatient EMR -Empirically started on Esophageal candidiasis rx- Fluconazole 400 mg x 1 dose followed by 200 mg daily x 14 days and see if symptoms improves -Speech swallow evaluation ordered Prolonged QTC Went up to 522 from 485 Discontinued Azithromycin and started on doxycycline Monitor Asthma Wheezing present on admission -Continue with Albuterol Nebs QID -On montelukast at home -Monitor Nocturnal hypoxemia Uses oxygen 2 L at night and PRN during day time. Current use as at baseline HTN -Continue with coreg, Lisinopril -Monitor Hyperlipidemia -Continue with simvastatin 20 mg q HS Hx of PE -On Warfarin -INR supra therapeutic - 3.4. Hold coumadin today -CT scan- no PE (elevated d dimer 1900) -Monitor Hypothyroidism -Continue with levothyroxine Obesity DVT prophylaxis -On coumadin with INR therapeutic Disposition Medical mx in progress Expected discharge home when stable Updated by bedside Subjective Patient feeling a little better. Shortness of breath/chest pain has improved. Cough is improved with minimal sputum production. No fever, chills. Continues to have painful swallowing and feeling of food getting stuck in upper chest as prior to admission Denies any weight loss, loss of appetite. Physical Exam Constitutional: WD/WN, vitals as above + obese Eyes: PERRL, conjunctivae normal, anicteric sclerae ENMT: external ear and nose normal, oropharynx normal Respiratory: Auscultation: + diminished lung sounds and + rhonchi (Left lung) Cardiovascular: RRR, no murmur, no edema Gastrointestinal (Abdomen): normal bowel sounds, soft, nontender, no hepatosplenomegaly Neurologic: no focal motor deficits Results & Data Vital Signs (Past 12 Hours) Vital Signs Temp Pulse Resp BP Pulse Ox 02/07/19 07:15 82 24 79 L 02/06/19 23:34 37.6 C H 96 H 20 113/75 95 (1) Pneumonia Laterality: unspecified laterality Lung location: unspecified part of lung Pneumonia type: due to unspecified organism Qualified Code(s): J18.9 - Pneumonia, unspecified organism
[2019-02-07] MEDS: FLUCONAZOLE 100 MG TAB PO SCH (12:03)
[2019-02-07] MEDS: SIMVASTATIN 20 MG TAB PO SCH (20:02)
[2019-02-07] MEDS: CHOLECALCIFEROL 1,000 UNITS TAB PO SCH (20:02)
[2019-02-07] MEDS: DOXYCYCLINE HYCLATE 100 MG CAP PO SCH (20:02)
[2019-02-07] MEDS: MONTELUKAST SODIUM 10 MG TABLET PO SCH (20:02)
[2019-02-07] MEDS: AMITRIPTYLINE HCL 25 MG TAB PO SCH (20:02)
[2019-02-07] MEDS: DULOXETINE HCL 60 MG CAP PO SCH (20:03)
[2019-02-07] MEDS: LEVOTHYROXINE SODIUM 25 MCG TABLET PO SCH (20:03)
[2019-02-08] MEDS: ALBUTEROL 0.5% NEB SOLN 2.5 MG/0.5 ML VIAL NEB SCH ×2 (01:28→07:13)
[2019-02-08 06:42] LABS: Basophils # (auto) 0.03 K/uL (0-0.2); Basophils % (auto) 0.6 %; Eosinophils # (auto) 0.13 K/uL (0-0.5); Eosinophils % (auto) 2.7 %; Hematocrit (blood only) 28.1 % (37-47); Hemoglobin 9.2 g/dL (12.0-16.0); Immature Granulocytes # (auto) 0.01 K/uL (0.00-0.02); Immature Granulocytes % (auto) 0.2 %; Lymphocytes # (auto) 1.37 K/uL (1.2-3.4); Lymphocytes % (auto) 28.3 %; Mean Corpuscular Hgb Conc 32.7 g/dL (32-36); Mean Platelet Volume 9.7 fL (7.4-10.4); Monocytes # (auto) 0.43 K/uL (0.11-0.59); Monocytes % (auto) 8.9 %; Neutrophils # (auto) 2.87 K/uL (1.4-6.5); Neutrophils % (auto) 59.3 %; Platelet Count 196 K/uL (130-400); RDW Coefficient of Variation 12.7 % (11.5-14.5); RDW Standard Deviation 49.4 fL (36.4-46.3); Red Blood Count 2.65 M/uL (4.2-5.4); White Blood Count 4.84 K/uL (4.8-10.8)
[2019-02-08 06:54] LABS: Prothrombin Time 34.8 Seconds (9.0-12.0)
[2019-02-08 07:09] LABS: BUN Creatinine Ratio 15.1 (10-20); Creatinine Clr Calc Pharmacy 51.6 ml/min; Est GFR (African American) 55.3; Est GFR (Non-African American) 47.7; Potassium 3.9 mmol/L (3.5-5.1)
[2019-02-08 07:25] LABS: INR 3.7 (0.9-1.1)
[2019-02-08] MEDS: CARVEDILOL 12.5 MG TAB PO SCH (07:58)
[2019-02-08] MEDS: LISINOPRIL 5 MG TAB PO SCH (07:58)
[2019-02-08] MEDS: GABAPENTIN 100 MG CAP PO SCH (07:58)
[2019-02-08] MEDS: FLUCONAZOLE 100 MG TAB PO SCH (07:58)
[2019-02-08] MEDS: DOXYCYCLINE HYCLATE 100 MG CAP PO SCH (07:59)
[2019-02-08] MEDS: PANTOprazole 40 MG TAB PO SCH (07:59)
--- NOTE | 2019-02-08 10:32 | Hospitalist Progress Note ---
Date of Service February 08, 2019 Assessment & Plan (1) Pneumonia: SOB/Chest pain- Resolved Community-acquired pneumonia. Chest pain is pleuritic in nature but describes as heaviness CT chest - small RLL infiltrate. No signs of sepsis. No fever, leucocytosis. SaO2 on RA-96% -S/P IV Rocephin in ED. On IV Rocephin, Azithromycin - Day 2 --> Discontinued Azithromycin and started on doxycycline (QTC went up to 522) -Albuterol Nebs QID -Sputum cx x 2- Not collected -EKG- no acute ischemic changes, Trop x 2 - negative, CXR/CT scan reviewed- small right LL Painful Odynophagia - Improving Ongoing for few days- weeks. Says it is painful to swallow solids and now even liquids- discomfort/pain felt in neck and down to upper chest and sometimes feels like it is coming up. Not associated with weight loss, loss of appetite. Swallow evaluation ordered - No true dysphagia noted, consider GERD. -Empirically started on Esophageal candidiasis rx (has oral thrush +) - Fluconazole 400 mg x 1 dose on 02/06/19 followed by 200 mg daily x 14 days and see if symptoms improves---> already improving per patient. If no improvement, consider outpatient GI evaluation for possible EGD -Start on Protonix as well to see if it helps symptoms Prolonged QTC Went up to 522 from 485 Discontinued Azithromycin and started on doxycycline Monitor outpatient Asthma Wheezing present on admission -Continue with Albuterol Nebs QID -On montelukast at home Nocturnal hypoxemia Uses oxygen 2 L at night and PRN during day time. Current use as at baseline HTN -Continue with coreg, Lisinopril -Monitor Hyperlipidemia -Continue with simvastatin 20 mg q HS Hx of PE -On Warfarin -INR supra therapeutic - 3.7. Hold coumadin today -CT scan- no PE (elevated d dimer 1900) -Monitor INR outpatient Hypothyroidism -Continue with levothyroxine Obesity DVT prophylaxis -On coumadin with INR supra therapeutic Disposition Eager to be discharged Okay to discharge home today Updated boy friend by bedside Subjective Patient is feeling much better and eager to be discharged. Shortness of breath/chest pain has resolved. Cough continues to improve. No fever, chills. Painful swallowing/chest discomfort, feeling of food getting stuck in upper chest has improved since admission Tolerating diet Saturating 94% on room air Physical Exam Physical Exam: Constitutional WD/WN, vitals as above + obese Eyes PERRL, conjunctivae normal, anicteric sclerae ENMT external ear and nose normal, oropharynx normal Respiratory Auscultation: + diminished lung sounds and + rhonchi (Left lung) Cardiovascular RRR, no murmur, no edema Gastrointestinal (Abdomen) normal bowel sounds, soft, nontender, no hepatosplenomegaly Results & Data Vital Signs (Past 12 Hours) Vital Signs Temp Pulse Resp BP BP Pulse Ox 02/08/19 07:13 36.5 C 91 H 20 138/82 94 02/07/19 23:07 36.3 C L 82 20 106/65 95 (1) Pneumonia Laterality: unspecified laterality Lung location: unspecified part of lung Pneumonia type: due to unspecified organism Qualified Code(s): J18.9 - Pneumonia, unspecified organism
--- NOTE | 2019-02-08 10:37 | Discharge Summary ---
Date of Service February 08, 2019 Admission HPI Per Admitting Provider Patient is a 78-year-old F with past medical history of asthma, hypothyroidism, hypertension, hyperlipidemia, PE on Coumadin comes to ED with complaint of shortness of breath/chest pain for 2 days. Patient was at her baseline level of functioning till few days ago when she started developing some shortness of breath/wheezing. Chest painmidsternal described as feeling heavy, worse with deep inspiration, nonradiating. Developed cough with some mild whitish sputum production. No leg swelling. Denies any sweating, palpitations, nausea, vomiting, diaphoresis. Patient complains of painful swallowing of solid which progressed to liquids. In ED, saturating well on room air but drops on ambulation. Chest x-ray showed no acute abnormality but CT scan chest showed small right lower lobe infiltrate. No leukocytosis or signs of sepsis. EKG shows no acute changes, troponin x1-. Received IV Rocephin in ED. We will admit the patient to [facility] for right lower lobe pneumonia, community-acquired Principal Diagnosis 1. Community-acquired pneumonia 2. Painful odynophagia, possible esophageal candidiasis 3. Prolonged QTC Secondary diagnoses on discharge 1. Asthma 2. Nocturnal hypoxemia with 2 L of oxygen at night 3. Hypertension 4. Hyperlipidemia 5. History of PE on Coumadin 6. Hypothyroidism 7. Obesity Discharge Exam Constitutional: WD/WN, vitals as above + obese HEENT: Oral thrush + Eyes: PERRL, conjunctivae normal, anicteric sclerae ENMT: external ear and nose normal, oropharynx normal Respiratory: Auscultation: + diminished lung sounds and + rhonchi (Left lung) Cardiovascular: RRR, no murmur, no edema Gastrointestinal (Abdomen): normal bowel sounds, soft, nontender, no hep atosplenomegaly Neurologic: no focal motor deficits Discharge Data Allergies Allergy/AdvReac Type Severity Reaction Status Date / Time aspirin Allergy Unknown UNKNOWN Verified 02/06/19 14:13 Sulfa (Sulfonamide Allergy Unknown Unknown Verified 02/06/19 14:13 Antibiotics) Consultations 02/06/19 16:58 ED Decision to Admit Stat Ordered Studies 02/06/19 14:25 CT angio chest PE protocol Stat Hospital Course (1) Pneumonia: SOB/Chest pain- Resolved Community-acquired pneumonia. Chest pain is pleuritic in nature but describes as heaviness CT chest - small RLL infiltrate. No signs of sepsis. No fever, leucocytosis. SaO2 on RA-96% -S/P IV Rocephin in ED. On IV Rocephin, Azithromycin - Day 2 --> Discontinued Azithromycin and started on doxycycline (QTC went up to 522)- Day 3 -Albuterol Nebs QID -Sputum cx x 2- Not collected -EKG- no acute ischemic changes, Trop x 2 - negative, CXR/CT scan reviewed- small right LL Painful Odynophagia - Improving Ongoing for few days- weeks. Says it is painful to swallow solids and now even liquids- discomfort/pain felt in neck and down to upper chest and sometimes feels like it is coming up. Not associated with weight loss, loss of appetite. Swallow evaluation ordered - No true dysphagia noted, consider GERD. -Empirically started on Esophageal candidiasis rx (has oral thrush +) - Fluconazole 400 mg x 1 dose on 02/06/19 followed by 200 mg daily x 14 days and see if symptoms improves---> already improving per patient. If no improvement, consider outpatient GI evaluation for possible EGD -Start on Protonix as well to see if it helps symptoms Prolonged QTC Went up to 522 from 485 Discontinued Azithromycin and started on doxycycline Monitor outpatient Asthma Wheezing present on admission -Continue with Albuterol Nebs QID -On montelukast at home Nocturnal hypoxemia Uses oxygen 2 L at night and PRN during day time. Current use as at baseline HTN -Continue with coreg, Lisinopril -Monitor Hyperlipidemia -Continue with simvastatin 20 mg q HS Hx of PE -On Warfarin -INR supra therapeutic - 3.7. Hold coumadin today -CT scan- no PE (elevated d dimer 1900) -Monitor INR outpatient Hypothyroidism -Continue with levothyroxine Obesity DVT prophylaxis -On coumadin with INR supra therapeutic Disposition Eager to be discharged Okay to discharge home today Updated boy friend by bedside Total Time Total Time Spent Total Time Spent (In Minutes): 35 minutes Total Time Includes: Examination of the Patient, Discharge Planning and Medication Reconciliation Discharge Plan Discharge Items Patient Disposition: Home - Self-Care Reason For Visit: PNEUMONIA Discharge Diagnosis: 1. Community acquired pneumonia 2. Painful swallowing, possible esophageal candidiasis- on empiric treatment Discharge Goals: Decrease discomfort Activity: Resume your previous activity Non-emergency contact: Primary Care Provider Call non-emergency contact if: your symptoms worsen Follow-up/Referrals: Giorgio Salas, DO [Primary Care Provider] - (We will call you for appointment date and time within 7 days as scheduling office is closed today) Diet: Low Fat and Low Sodium (2gm) Addtl Provider Instructions: You were admitted to the hospital for community-acquired pneumonia. Medication changes 1 New medicationdoxycycline 100 mg p.o. twice a day for 9 more doses to complete 7-day course of antibiotics 2. New medicationfluconazole 200 mg daily day 10/30 for possible esophageal candidiasis 3. New medication - Protonix 40 mg daily 4. New medication- Nystatin four times a day as instructed for oral thrush 5. Hold coumadin today evening and tomorrow as INR 3.7. INR to be done on Saturday02/10/19 If no improvement with fluconazole may consider GI evaluation and consider endoscopy Prescriptions: New fluconazole 100 mg Tablet 200 mg PO QAM 11 Days Qty: 11 RF: 0 doxycycline hyclate 100 mg Capsule 100 mg PO BID 4 Days Qty: 9 RF: 0 pantoprazole 40 mg Tablet,Delayed Release (Dr/Ec) 40 mg PO QAM 30 Days Qty: 30 RF: 0 nystatin 500,000 unit tablet 500,000 units PO QID Qty: 60 RF: 0 Continued acetaminophen [Tylenol] 325 mg Tablet 650 mg PO HS RF: 0 carvedilol 12.5 mg tablet 12.5 mg PO BID RF: 0 sumatriptan succinate 100 mg tablet 100 mg PO UD PRN (Reason: Migraine Headache) RF: 0 hydrocodone-acetaminophen 5-325 mg tablet 1 - 2 tab PO UD RF: 0 alendronate 70 mg tablet 70 mg PO WK RF: 0 levothyroxine 25 mcg tablet 25 mcg PO HS RF: 0 amitriptyline 25 mg tablet 25 mg PO HS RF: 0 simvastatin 20 mg tablet 20 mg PO HS RF: 0 warfarin [Jantoven] 5 mg tablet 5 mg PO HS RF: 0 montelukast 10 mg tablet 10 mg PO HS RF: 0 lisinopril 5 mg tablet 5 mg PO QAM RF: 0 gabapentin 100 mg capsule 200 mg PO TID RF: 0 albuterol sulfate [Ventolin HFA] 90 mcg/actuation Hfa Aerosol Inhaler 2 puff INHALATION QID PRN (Reason: Shortness Of Breath Or Wheezing) RF: 0 [id number]-SM 3.5-10,000-1 mg/mL-unit/mL-% Drops,Suspension 4 drp OTL TID PRN (Reason: ear infection) RF: 0 duloxetine 60 mg capsule,delayed release(DR/EC) 60 mg PO HS RF: 0 cholecalciferol (vitamin D3) [Vitamin D3] 5,000 unit Tablet 5,000 unit PO HS RF: 0 Blue Emu 1 applic topical [id number] RF: 0 Stand-Alone Forms: Call Back Authorization, [facility]/Other Patient Handouts: Doxycycline Monohydrate Oral tablet Discharge Orders: Discharge Order (Routine); Ordered 02/08/19 Ordered By: Lizeth Stauffer Admission Data Admit Date/Time: 02/06/19 18:04 Attending Provider: Lizeth Stauffer Admit Provider: Lizeth Stauffer Primary Care Provider: Giorgio Salas Other Providers: Peyton Stauffer Service: Medical Other Pending Studies at Discharge: No
== END 2019-02-08 11:22 | disposition home or self-care (01) | DRG 194 ==
LOC: ED 12:37 → 2N 18:04

== ENCOUNTER 2019-02-28 17:34 | Inpatient (IN) ==
[2019-02-28] MEDS ORDERED: ALBUTEROL 0.083% NEBU SOLN 3 ML VIAL NEB STA (17:59)
[2019-02-28] MEDS ORDERED: SODIUM CHLORIDE 0.9% 500 ML IV SCH (18:00)
--- NOTE | 2019-02-28 18:04 | Emergency Department Note ---
Entered by Fransisco Stauffer acting as a scribe for Cj Moncada DO History of Present Illness General Chief complaint: Respiratory Problems Stated complaint: RESPIRATORY PROBLEM History of Present Illness Provider complaint: Cough and shortness of breath Maximum Pain Intensity: 5 Patient is a 78-year-old female with a past medical history of asthma, A. fib, PEs on Coumadin who presents the ER for shortness of breath associated with a productive cough. Upon review of her chart she was recently admitted and discharged and treated for pneumonia which was seen on a CT PE. She was initially placed on azithromycin and then switched to doxycycline. She has been out of the hospital for the past 10 days and notes that the symptoms initially following discharge she got better for 1 to 2 days but now have significant worsened. She notes shortness of breath and the cough has been worsening. She also admits to chest pain which is present with coughing, twisting turning and bending. Is located in the middle of her chest. It is also reproducible on palpation. She admits she wears 1 to 2 L at rest at home and has been wearing this for the past several years. She notes that she feels as though she cannot carry conversation because she is so short of breath. She denies any fevers. Denies any change in vision, neck pain, rash, belly pain, nausea vomiting diarrhea, or urinary symptoms. Home Medications Home Medications Medication Instructions Recorded Confirmed Type Blue Emu 1 applic TOPICAL [id number] 11/10/18 02/28/19 History acetaminophen [Tylenol] 650 mg PO HS 11/10/18 02/28/19 History albuterol sulfate [Ventolin HFA] 2 puff INHALATION QID PRN 11/10/18 02/28/19 History alendronate 70 mg PO WK 11/10/18 02/28/19 History amitriptyline 25 mg PO HS 11/10/18 02/28/19 History carvedilol 12.5 mg PO BID 11/10/18 02/28/19 History cholecalciferol (vitamin D3) 5,000 unit PO HS 11/10/18 02/28/19 History [Vitamin D3] gabapentin 200 mg PO TID 11/10/18 02/28/19 History hydrocodone-acetaminophen 1 - 2 tab PO UD PRN 11/10/18 02/28/19 History levothyroxine 25 mcg PO HS 11/10/18 02/28/19 History lisinopril 5 mg PO QAM 11/10/18 02/28/19 History montelukast 10 mg PO HS 11/10/18 02/28/19 History simvastatin 20 mg PO HS 11/10/18 02/28/19 History sumatriptan succinate 100 mg PO UD PRN 11/10/18 02/28/19 History warfarin [Jantoven] See Rx Instructions .ROUTE .COMPLEX 11/10/18 02/28/19 History pantoprazole 40 mg PO QAM 30 Days #30 tab 02/08/19 02/28/19 Rx duloxetine 30 mg PO HS 02/28/19 02/28/19 History Allergies Allergy/AdvReac Type Severity Reaction Status Date / Time aspirin Allergy Unknown Unknown Verified 02/28/19 19:14 Sulfa (Sulfonamide Allergy Unknown Unknown Verified 02/28/19 19:14 Antibiotics) Past Med/Surg History Medical History Atrial flutter Pulmonary embolism (Chronic 10/10/12) Symptomatic anemia Family History Other Family history non-contributory Social History Preferred Language: Syriac Communication Ability: Effective Visual Impairment: No Limitations Hearing Ability: Normal Sap Payroll Consultant Required: No Beliefs That Will Affect Care: None marital status: Current Living Situation: Spouse current occupational status: retired Other Information That Helps Us Care for You: No Feels Safe at Home: Yes Safety Concerns: Feels Safe At This Time Smoking Status: Never smoker Second Hand Exposure: Yes ( smokes in the home) Hx Alcohol Use: No Hx Substance Use: No Review of Systems See HPI for pertinent positives & negatives. and A total of 10 systems reviewed and were otherwise negative Physical Exam Vital Signs Vital Signs - 24 hr 02/28/19 17:43 02/28/19 18:02 02/28/19 18:08 Temperature 36.7 C Temperature Source Oral Sepsis Recent Fever Within 48 Hours No Sepsis Action Taken by Nursing No Action Required Pulse Rate 86 83 84 Pulse Rate [Apical] Pulse Rate from SpO2 Sensor 83 84 Pulse Rhythm Regular Pulse Strength Normal Respiratory Rate 20 21 17 Respiratory Effort / Characteristics Non-Labored Spontaneous Respiratory Depth Normal Respiratory Pattern Regular Blood Pressure 156/84 H 179/123 H Blood Pressure Mean 108 141 Blood Pressure Position Sitting Pulse Oximetry 94 100 93 Oxygen Delivery Method Room Air Oxygen Flow Rate 02/28/19 18:10 02/28/19 18:46 02/28/19 18:47 Temperature Temperature Source Sepsis Recent Fever Within 48 Hours Sepsis Action Taken by Nursing Pulse Rate 78 75 73 Pulse Rate [Apical] 85 Pulse Rate from SpO2 Sensor Pulse Rhythm Pulse Strength Respiratory Rate 16 22 16 Respiratory Effort / Characteristics Non-Labored Spontaneous Respiratory Depth Shallow Respiratory Pattern Regular Blood Pressure 199/101 H Blood Pressure Mean 133 Blood Pressure Position Pulse Oximetry 92 Oxygen Delivery Method Nasal Cannula Oxygen Flow Rate 2 02/28/19 19:17 02/28/19 19:31 02/28/19 19:45 Temperature Temperature Source Sepsis Recent Fever Within 48 Hours Sepsis Action Taken by Nursing Pulse Rate 77 Pulse Rate [Apical] Pulse Rate from SpO2 Sensor Pulse Rhythm Pulse Strength Respiratory Rate 21 18 Respiratory Effort / Characteristics Respiratory Depth Respiratory Pattern Blood Pressure 181/115 H 161/106 H Blood Pressure Mean 137 124 Blood Pressure Position Pulse Oximetry 92 92 Oxygen Delivery Method Nasal Cannula Nasal Cannula Oxygen Flow Rate 2 2 02/28/19 19:49 Temperature Temperature Source Sepsis Recent Fever Within 48 Hours Sepsis Action Taken by Nursing Pulse Rate Pulse Rate [Apical] Pulse Rate from SpO2 Sensor Pulse Rhythm Pulse Strength Respiratory Rate Respiratory Effort / Characteristics Spontaneous Labored Short of Breath Respiratory Depth Normal Respiratory Pattern Regular Blood Pressure Blood Pressure Mean Blood Pressure Position Pulse Oximetry Oxygen Delivery Method Nasal Cannula Oxygen Flow Rate 2 GENERAL: Sitting up in bed, with a persistent dry cough and audible wheezing, dyspneic with conversation EYE EXAM: normal conjunctiva OROPHARYNX: no exudate, no erythema, lips, buccal mucosa, and tongue normal and mucous membranes are moist NECK: supple, no nuchal rigidity, no adenopathy, non-tender LUNGS: Diffuse wheezing bilaterally with poor air movement. normal chest wall mechanics HEART: no murmurs, S1 normal and S2 normal ABDOMEN: abdomen soft, non-tender, normo-active bowel sounds, no masses, no rebound or guarding. BACK: Back is symmetrical on inspection and there is no deformity, no midline tenderness, no CVA tenderness. SKIN: no rashes and no bruising UPPER EXTREMITIES: upper extremities are grossly normal. LOWER EXTREMITIES: No pitting edema. Calves are equal bilateral with bruising on the lower extremity NEURO EXAM: Normal sensorium, cranial nerves II-XII grossly intact, normal speech, no gross weakness of arms, no gross weakness of legs. Course ED COURSE: Vital signs were reviewed and showed hypertension The patients medical record was reviewed The above diagnostic studies were performed and reviewed. ED treatments and interventions as stated above. 1755: The patient was evaluated in room B12B. A complete history and physical examination was performed. 1857: I reevaluated the patient. She is still wheezing and has SOB. 1923: I discussed the patient's case with Dr. Esteban Neal Hospitalist. He will evaluate the patient for further management 0: Upon reevaluation, the patient is getting admitted. I discussed my findings with the patient and she understands and agrees with the treatment plan. Based on the patients age, coexisting illnesses, exam and lab findings the decision to treat as an inpatient was made. The patient remained stable while under my care. The patient will be evaluated for further management. Administered Medications Amitriptyline HCl (Elavil) 25 mg PO HS TRACI Stop: 03/30/19 23:09 Last Admin: 03/01/19 00:09 Dose: 25 mg Documented by: [id number] Duloxetine HCl (Cymbalta) 30 mg PO HS TRACI Stop: 03/30/19 23:09 Last Admin: 03/01/19 00:10 Dose: 30 mg Documented by: [id number] Gabapentin (Neurontin) 200 mg PO TID TRACI Stop: 03/30/19 23:09 Last Admin: 03/01/19 00:09 Dose: 200 mg Documented by: [id number] Lactated Ringer's (Lr) 1,000 mls @ 40 mls/hr IV .Q24H ONE Stop: 03/01/19 23:09 Last Admin: 02/28/19 23:30 Dose: 40 mls/hr Documented by: [id number] Magnesium Sulfate/Dextrose (Magnesium Sulfate / D5w) 1 gm in 100 mls @ 100 mls/hr IV Q1H TRACI Stop: 03/01/19 01:09 Last Admin: 03/01/19 00:08 Dose: 100 mls/hr Documented by: [id number] Montelukast Sodium (Singulair) 10 mg PO HS TRACI Stop: 03/30/19 23:09 Last Admin: 03/01/19 00:11 Dose: 10 mg Documented by: [id number] Simvastatin (Zocor) 20 mg PO [facility] Stop: 03/30/19 23:09 Last Admin: 03/01/19 00:11 Dose: 20 mg Documented by: [id number] Discontinued Medications Albuterol (Ventolin 0.083% 2.5mg/3ml) 7.5 mg NEB NOW STA Stop: 02/28/19 18:00 Last Admin: 02/28/19 18:10 Dose: 7.5 mg Documented by: [id number] Carvedilol (Coreg) Confirm Administered Dose 12.5 mg .ROUTE .STK-MED ONE Stop: 02/28/19 21:06 Last Admin: 02/28/19 21:06 Dose: 12.5 mg Documented by: [id number] Ceftriaxone Sodium (Rocephin) Confirm Administered Dose 1,000 mg IV .STK-MED ONE Stop: 02/28/19 19:07 Last Admin: 02/28/19 19:08 Dose: 1,000 mg Documented by: [id number] Sodium Chloride (Nss) 500 mls @ 999 mls/hr IV .Q31M [facility] Stop: 02/28/19 18:30 Last Infusion: 02/28/19 18:45 Dose: 0 mls/hr Documented by: [id number] Admin: 02/28/19 18:14 Dose: 999 mls/hr Documented by: [id number] Ceftriaxone Sodium 1,000 mg/ (Dextrose) 60 mls @ 100 mls/hr IV NOW STA; Protocol Stop: 02/28/19 19:34 Last Admin: 02/28/19 19:08 Dose: Not Given Documented by: [id number] Doxycycline Hyclate 100 mg/ (Dextrose) 110 mls @ 50 mls/hr IV NOW STA Stop: 02/28/19 22:05 Last Admin: 02/28/19 21:06 Dose: 50 mls/hr Documented by: [id number] Methylprednisolone (Solumedrol) 60 mg IV NOW STA Stop: 02/28/19 19:00 Last Admin: 02/28/19 19:09 Dose: 60 mg Documented by: [id number] Phytonadione (Mephyton) 2.5 mg PO NOW STA Stop: 02/28/19 19:55 Last Admin: 02/28/19 21:06 Dose: 2.5 mg Documented by: [id number] Medical Decision Making Differential Diagnosis Differential diagnoses includes but is not limited to pneumonia, bronchitis, COPD/Asthma exacerbation, pneumothorax, pulmonary embolism, congestive heart failure, acute coronary syndrome Medical Records Attestation: I reviewed the patient's medical records. Home Medications Current Medication List: was personally reviewed by me Laboratory Data Attestation: I reviewed the patient's lab results. Result diagrams: 02/28/19 18:07 02/28/19 18:07 Lab Results 02/28/19 02/28/19 02/28/19 Range/Units 18:07 18:07 18:07 WBC 5.60 (4.8-10.8) K/uL RBC 3.26 L (4.2-5.4) M/uL Hgb 11.1 L (12.0-16.0) g/dL Hct 34.3 L (37-47) % MCV 105.2 H (80-100) fL MCH 34.0 (25-34) pg MCHC 32.4 (32-36) g/dL RDW Std Deviation 52.2 H (36.4-46.3) fL RDW Coeff of Vijay 13.6 (11.5-14.5) % Plt Count 205 (130-400) K/uL MPV 10.1 (7.4-10.4) fL Immature Gran % (Auto) 0.0 % Neut % (Auto) 57.1 % Lymph % (Auto) 27.9 % Calhoun % (Auto) 4.8 % Eos % (Auto) 9.8 % Baso % (Auto) 0.4 % Immature Gran # (Auto) 0.00 (0.00-0.02) K/uL Neut # (Auto) 3.20 (1.4-6.5) K/uL Lymph # (Auto) 1.56 (1.2-3.4) K/uL Calhoun # (Auto) 0.27 (0.11-0.59) K/uL Eos # (Auto) 0.55 H (0-0.5) K/uL Baso # (Auto) 0.02 (0-0.2) K/uL PT 45.9 H (9.0-12.0) Seconds INR 5.0 H (0.9-1.1) APTT 43.0 H (21.0-31.0) Seconds PTT Ratio 1.6 Sodium 142 (136-145) mmol/L Potassium 3.8 (3.5-5.1) mmol/L Chloride 107 (98-107) mmol/L Carbon Dioxide 29 (21-32) mmol/L Anion Gap 6.0 (3-11) BUN 12 (7-18) mg/dl Creatinine 1.26 H (0.6-1.2) mg/dl Est Cr Clr Drug Dosing 44.5 ml/min Est GFR ( Amer) 47.9 Est GFR (Non-Af Amer) 41.4 BUN/Creatinine Ratio 9.6 L (10-20) Glucose 99 (70-99) mg/dl Calcium 9.1 (8.5-10.1) mg/dl Magnesium (1.8-2.4) mg/dl Total Bilirubin 0.7 (0.2-1) mg/dl AST 22 (15-37) U/L ALT 14 (12-78) U/L Alkaline Phosphatase 76 (45-117) U/L Troponin I < 0.015 (0-0.045) ng/ml Total Protein 6.6 (6.4-8.2) gm/dl Albumin 3.0 L (3.4-5.0) gm/dl Globulin 3.6 (2.5-4.0) gm/dl Albumin/Globulin Ratio 0.8 L (0.9-2) Influenza Type A (PCR) (Neg) Influenza Type B (PCR) (Neg) 02/28/19 02/28/19 Range/Units 18:07 19:16 WBC (4.8-10.8) K/uL RBC (4.2-5.4) M/uL Hgb (12.0-16.0) g/dL Hct (37-47) % MCV (80-100) fL MCH (25-34) pg MCHC (32-36) g/dL RDW Std Deviation (36.4-46.3) fL RDW Coeff of Vijay (11.5-14.5) % Plt Count (130-400) K/uL MPV (7.4-10.4) fL Immature Gran % (Auto) % Neut % (Auto) % Lymph % (Auto) % Calhoun % (Auto) % Eos % (Auto) % Baso % (Auto) % Immature Gran # (Auto) (0.00-0.02) K/uL Neut # (Auto) (1.4-6.5) K/uL Lymph # (Auto) (1.2-3.4) K/uL Calhoun # (Auto) (0.11-0.59) K/uL Eos # (Auto) (0-0.5) K/uL Baso # (Auto) (0-0.2) K/uL PT (9.0-12.0) Seconds INR (0.9-1.1) APTT (21.0-31.0) Seconds PTT Ratio Sodium (136-145) mmol/L Potassium (3.5-5.1) mmol/L Chloride (98-107) mmol/L Carbon Dioxide (21-32) mmol/L Anion Gap (3-11) BUN (7-18) mg/dl Creatinine (0.6-1.2) mg/dl Est Cr Clr Drug Dosing ml/min Est GFR ( Amer) Est GFR (Non-Af Amer) BUN/Creatinine Ratio (10-20) Glucose (70-99) mg/dl Calcium (8.5-10.1) mg/dl Magnesium 1.7 L (1.8-2.4) mg/dl Total Bilirubin (0.2-1) mg/dl AST (15-37) U/L ALT (12-78) U/L Alkaline Phosphatase (45-117) U/L Troponin I (0-0.045) ng/ml Total Protein (6.4-8.2) gm/dl Albumin (3.4-5.0) gm/dl Globulin (2.5-4.0) gm/dl Albumin/Globulin Ratio (0.9-2) Influenza Type A (PCR) Neg for Influ A (Neg) Influenza Type B (PCR) Neg for Influ B (Neg) Imaging Data Radiologist's Impression: Radiology results as stated below per my review and the radiologist's interpretation: XR chest 2V routine CLINICAL HISTORY: 78 years-old Female presenting with Dyspnea. TECHNIQUE: Portable upright AP view of the chest was obtained. COMPARISON: 02/06/2019. FINDINGS: Atherosclerosis of the aortic arch. Cardiac silhouette borderline enlarged. Elevation of the right hemidiaphragm. Minimal linear opacity at the left lung base, unchanged. No new focal lung opacity. No pleural effusion or pneumothorax. Degenerative changes of the glenohumeral joints. Cholecystectomy clips noted. IMPRESSION: 1. Minimal basilar opacities likely atelectasis or scarring. No convincing evidence of acute cardiopulmonary disease. Electronically signed by: Angel Pichardo M.D. 02/28/2019 6:44 PM ECG Data Attestation: I personally reviewed and interpreted this ECG as follows: Indication: SOB/dyspnea Rate (beats per minute): 84 Rhythm: sinus rhythm Findings: + other (normal axis, poor baseline) Blood Pressure Blood Pressure Findings: Elevated blood pressure Blood Pressure Disposition: further management by hospitalist ISABEL Narrative Patient is a 78-year-old female who presents the ER for shortness of breath wh ich has been worsening over the past 10 days. Patient has a recent admission discharge for pneumonia. She notes her symptoms have been worsening. Chest pain has been present as well which is been for the past 10 days. Is truly positional and muscular with twisting turning bending and breathing. Patient does take warfarin and PE was not pursued any further. Unlikely cardiac. IV was established blood work was obtained. Labs show hemoglobin 11.1. No significant leukocytosis. INR was elevated at 5. BMP with a creatinine 1.26. LFTs troponin was unremarkable. Influenza was negative. Chest x-ray without overt infiltrate per my read. Patient was given 3 doses of albuterol with minimal improvement as well as IV antibiotics and steroids. She was updated bedside. Patient was admitted for further work-up of her respiratory distress. Impression & Plan SOB (shortness of breath), Asthma with exacerbation, Hypertension, Acute hypoxemic respiratory failure Discharge Plan Visit Data *Final* Discharge Date/Time: 02/28/19 21:35 Chief Complaint: Respiratory Problems Stated Complaint: RESPIRATORY PROBLEM ED Provider: Cj Moncada Discharge Problem: SOB (shortness of breath), Asthma with exacerbation, Hypertension, Acute hypoxemic respiratory failure Patient Disposition: Admitted As Inpatient Discharge Instructions Interventions: ED Discharge Assessment Last Done: 02/28/19 21:35 The scribe's documentation has been prepared under my direction and personally reviewed by me in its entirety. I confirm that the note above accurately reflects all work, treatment, procedures, and medical decision making performed by me.
[2019-02-28 18:18] LABS: Basophils # (auto) 0.02 K/uL (0-0.2); Basophils % (auto) 0.4 %; Eosinophils # (auto) 0.55 K/uL (0-0.5); Eosinophils % (auto) 9.8 %; Hematocrit (blood only) 34.3 % (37-47); Hemoglobin 11.1 g/dL (12.0-16.0); Lymphocytes # (auto) 1.56 K/uL (1.2-3.4); Lymphocytes % (auto) 27.9 %; Mean Corpuscular Hgb Conc 32.4 g/dL (32-36); Mean Corpuscular Volume 105.2 fL (80-100); Mean Platelet Volume 10.1 fL (7.4-10.4); Monocytes # (auto) 0.27 K/uL (0.11-0.59); Monocytes % (auto) 4.8 %; Neutrophils % (auto) 57.1 %; Platelet Count 205 K/uL (130-400); RDW Coefficient of Variation 13.6 % (11.5-14.5); RDW Standard Deviation 52.2 fL (36.4-46.3); Red Blood Count 3.26 M/uL (4.2-5.4)
[2019-02-28 18:33] LABS: Alanine Aminotransferase 14 U/L (12-78); Aspartate Aminotransferase 22 U/L (15-37); BUN Creatinine Ratio 9.6 (10-20); Blood Urea Nitrogen 12 mg/dl (7-18); Calcium 9.1 mg/dl (8.5-10.1); Carbon Dioxide 29 mmol/L (21-32); Chloride 107 mmol/L (98-107); Creatinine Clr Calc Pharmacy 44.5 ml/min; Est GFR (African American) 47.9; Est GFR (Non-African American) 41.4; Glucose 99 mg/dl (70-99); Potassium 3.8 mmol/L (3.5-5.1); Sodium 142 mmol/L (136-145)
[2019-02-28 18:36] LABS: Partial Thromboplastin Ratio 1.6; Prothrombin Time 45.9 Seconds (9.0-12.0)
[2019-02-28 18:38] LABS: Albumin Globulin Ratio 0.8 (0.9-2); Alkaline Phosphatase 76 U/L (45-117); Bilirubin,Total 0.7 mg/dl (0.2-1); Globulin 3.6 gm/dl (2.5-4.0); Total Protein 6.6 gm/dl (6.4-8.2); Troponin I < 0.015 ng/ml (0-0.045)
--- NOTE | 2019-02-28 18:46 | XRay Report ---
XR chest 2V routine CLINICAL HISTORY: 78 years-old Female presenting with Dyspnea. TECHNIQUE: Portable upright AP view of the chest was obtained. COMPARISON: 02/06/2019. FINDINGS: Atherosclerosis of the aortic arch. Cardiac silhouette borderline enlarged. Elevation of the right he midiaphragm. Minimal linear opacity at the left lung base, unchanged. No new focal lung opacity. No p leural effusion or pneumothorax. Degenerative changes of the glenohumeral joints. Cholecystectomy cli ps noted. IMPRESSION: 1. Minimal basilar opacities likely atelectasis or scarring. No convincing evidence of acute cardiop ulmonary disease. Electronically signed by: Angel Pichardo M.D. 02/28/2019 6:44 PM
[2019-02-28] MEDS ORDERED: cefTRIAXone SODIUM 1,000 MG in DEXTROSE 5% 50 ML IV STA (18:59)
[2019-02-28] MEDS ORDERED: methylPREDNISolone 125 MG/2 ML VIAL IV STA (18:59)
[2019-02-28] MEDS ORDERED: cefTRIAXone SODIUM 1000MG/50ML D5W IV ONE (19:06)
[2019-02-28] MEDS ORDERED: PHYTONADIONE 5 MG TAB PO STA (19:54)
[2019-02-28] MEDS ORDERED: DOXYCYCLINE HYCLATE 100 MG in DEXTROSE 5% 100 ML IV STA (19:54)
--- NOTE | 2019-02-28 19:54 | History & Physical Report ---
Date of Service February 28, 2019 Assessment & Plan (1) Acute hypoxemic respiratory failure: Secondary to asthma exacerbation/complicated bronchitis No sepsis A. fib/PE/DVT on Coumadin Patient NSR INR supratherapeutic No overt signs of bleeding as per patient account. CAD as per records hypertension, elevated secondary to illness ARF secondary to illness hyperlipidemia on statin Rx hypothyroidism. Euthyroid as of recent inpatient TSH of 2 Chronic anemia, hemoglobin at baseline Medical telemetry Supplemental O2 Baseline ABG Doxycycline, nebs, steroid course Pulmonary consult if without improvement in a.m. Baseline UA, monitor creatinine response to IV fluids, hold SARA inhibitor at the creatinine at baseline Vitamin K 1 dose for supratherapeutic INR DVT prophylaxis. Coumadin INR goal between 2 and 3 Full code History of Present Illness Chief Complaint: Cough, shortness of breath Primary Care Provider: Giorgio Salas, History obtained from patient and records. Medical history significant for asthma, A. fib/PE/DVT on Coumadin, CAD as per records, hypertension, hyperlipidemia WAYLON as per records, hypothyroidism, chronic anemia baseline hemoglobin of 11 Recent confinement 3 weeks ago for community-acquired pneumonia. Few days history of wheezing, cough initially dry later productive of junky sputum. No fever, no chills. Chest pain with coughing. Increasing shortness of breath. No unusual headache symptoms. Denies fluid retention. Poor appetite. No known sick contacts. At the ER, patient received Solu-Medrol, neb treatment, IV ceftriaxone for asthma exacerbation. 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 Allergies Allergy/AdvReac Type Severity Reaction Status Date / Time aspirin Allergy Unknown Unknown Verified 02/28/19 19:14 Sulfa (Sulfonamide Allergy Unknown Unknown Verified 02/28/19 19:14 Antibiotics) Home Medications Home Medications Medication Instructions Recorded Confirmed Type Blue Emu 1 applic TOPICAL 3XWK 11/10/18 02/28/19 History acetaminophen [Tylenol] 650 mg PO HS 11/10/18 02/28/19 History albuterol sulfate [Ventolin HFA] 2 puff INHALATION QID PRN 11/10/18 02/28/19 History alendronate 70 mg PO WK 11/10/18 02/28/19 History amitriptyline 25 mg PO HS 11/10/18 02/28/19 History carvedilol 12.5 mg PO BID 11/10/18 02/28/19 History cholecalciferol (vitamin D3) 5,000 unit PO HS 11/10/18 02/28/19 History [Vitamin D3] gabapentin 200 mg PO TID 11/10/18 02/28/19 History hydrocodone-acetaminophen 1 - 2 tab PO UD PRN 11/10/18 02/28/19 History levothyroxine 25 mcg PO HS 11/10/18 02/28/19 History lisinopril 5 mg PO QAM 11/10/18 02/28/19 History montelukast 10 mg PO HS 11/10/18 02/28/19 History simvastatin 20 mg PO HS 11/10/18 02/28/19 History sumatriptan succinate 100 mg PO UD PRN 11/10/18 02/28/19 History warfarin [Jantoven] See Rx Instructions .ROUTE .COMPLEX 11/10/18 02/28/19 History pantoprazole 40 mg PO QAM 30 Days #30 tab 02/08/19 02/28/19 Rx duloxetine 30 mg PO HS 02/28/19 02/28/19 History Past Med/Surg History Medical History Atrial flutter Pulmonary embolism (Chronic 10/10/12) Symptomatic anemia Family History Other Family history non-contributory Social History Preferred Language: Irish Communication Ability: Effective Visual Impairment: No Limitations Hearing Ability: Normal Electric Meter Installer Required: No Beliefs That Will Affect Care: None marital status: Current Living Situation: Spouse current occupational status: retired Other Information That Helps Us Care for You: No Feels Safe at Home: Yes Safety Concerns: Feels Safe At This Time Smoking Status: Never smoker Second Hand Exposure: Yes ( smokes in the home) Hx Alcohol Use: No Hx Substance Use: No Review of Systems Review of Systems: As per HPI, all 10 systems reviewed, all other ROS negative Physical Exam Physical Exam: GENERAL: Slightly uncomfortable, audible wheezing, obese, no respiratory distress SKIN: Normal color, warm HEENT: Pale palpebral conjunctivae, no ptosis, dry buccal mucosa, nasal cannula in place NECK : Supple, short, no tenderness CHEST : Expiratory wheezes, no tenderness HEART : RRR, no obvious murmurs ABDOMEN: Some distention, nontender EXTREMITIES : No LE swelling/tenderness, no other conspicuous deformities noted NEUROLOGIC : Coherent, no facial asymmetry, no other gross focality Results & Data Vital Signs (Past 12 Hours) Vital Signs Temp Pulse Pulse Resp BP Pulse Ox 02/28/19 19:45 92 02/28/19 19:31 18 161/106 H 92 02/28/19 19:17 77 21 181/115 H 02/28/19 18:47 73 16 199/101 H 02/28/19 18:46 75 22 02/28/19 18:10 78 85 16 92 02/28/19 18:08 84 17 179/123 H 93 02/28/19 18:02 83 21 100 02/28/19 17:43 36.7 C 86 20 156/84 H 94 Laboratory Results Laboratory Results WBC 5.60 K/uL (4.8-10.8) 02/28/19 18:07 RBC 3.26 M/uL (4.2-5.4) L 02/28/19 18:07 Hgb 11.1 g/dL (12.0-16.0) L 02/28/19 18:07 Hct 34.3 % (37-47) L 02/28/19 18:07 MCV 105.2 fL (80-100) H 02/28/19 18:07 MCH 34.0 pg (25-34) 02/28/19 18:07 MCHC 32.4 g/dL (32-36) 02/28/19 18:07 RDW Std Deviation 52.2 fL (36.4-46.3) H 02/28/19 18:07 RDW Coeff of Vijay 13.6 % (11.5-14.5) 02/28/19 18:07 Plt Count 205 K/uL (130-400) 02/28/19 18:07 MPV 10.1 fL (7.4-10.4) 02/28/19 18:07 Immature Gran % (Auto) 0.0 % 02/28/19 18:07 Neut % (Auto) 57.1 % 02/28/19 18:07 Lymph % (Auto) 27.9 % 02/28/19 18:07 [place] % (Auto) 4.8 % 02/28/19 18:07 Eos % (Auto) 9.8 % 02/28/19 18:07 Baso % (Auto) 0.4 % 02/28/19 18:07 Immature Gran # (Auto) 0.00 K/uL (0.00-0.02) 02/28/19 18:07 Neut # (Auto) 3.20 K/uL (1.4-6.5) 02/28/19 18:07 Lymph # (Auto) 1.56 K/uL (1.2-3.4) 02/28/19 18:07 [place] # (Auto) 0.27 K/uL (0.11-0.59) 02/28/19 18:07 Eos # (Auto) 0.55 K/uL (0-0.5) H 02/28/19 18:07 Baso # (Auto) 0.02 K/uL (0-0.2) 02/28/19 18:07 PT 45.9 Seconds (9.0-12.0) H 02/28/19 18:07 INR 5.0 (0.9-1.1) H 02/28/19 18:07 APTT 43.0 Seconds (21.0-31.0) H 02/28/19 18:07 PTT Ratio 1.6 02/28/19 18:07 Sodium 142 mmol/L (136-145) 02/28/19 18:07 Potassium 3.8 mmol/L (3.5-5.1) 02/28/19 18:07 Chloride 107 mmol/L (98-107) 02/28/19 18:07 Carbon Dioxide 29 mmol/L (21-32) 02/28/19 18:07 Anion Gap 6.0 (3-11) 02/28/19 18:07 BUN 12 mg/dl (7-18) 02/28/19 18:07 Creatinine 1.26 mg/dl (0.6-1.2) H 02/28/19 18:07 Est Cr Clr Drug Dosing 44.5 ml/min 02/28/19 18:07 Est GFR ( Amer) 47.9 02/28/19 18:07 Est GFR (Non-Af Amer) 41.4 02/28/19 18:07 BUN/Creatinine Ratio 9.6 (10-20) L 02/28/19 18:07 Glucose 99 mg/dl (70-99) 02/28/19 18:07 Calcium 9.1 mg/dl (8.5-10.1) 02/28/19 18:07 Magnesium 1.7 mg/dl (1.8-2.4) L 02/28/19 18:07 Total Bilirubin 0.7 mg/dl (0.2-1) 02/28/19 18:07 AST 22 U/L (15-37) 02/28/19 18:07 ALT 14 U/L (12-78) 02/28/19 18:07 Alkaline Phosphatase 76 U/L (45-117) 02/28/19 18:07 Troponin I < 0.015 ng/ml (0-0.045) 02/28/19 18:07 Total Protein 6.6 gm/dl (6.4-8.2) 02/28/19 18:07 Albumin 3.0 gm/dl (3.4-5.0) L 02/28/19 18:07 Globulin 3.6 gm/dl (2.5-4.0) 02/28/19 18:07 Albumin/Globulin Ratio 0.8 (0.9-2) L 02/28/19 18:07 Diagnostic Findings Chest x-ray showed Minimal basilar opacities likely atelectasis or scarring. No convincing evidence of acute cardiopulmonary disease. EKG as per my interpretation : rate 85, NSR, normal axis, incomplete left bundle branch block
[2019-02-28 19:56] LABS: Influenza A virus by PCR Neg for Influ A (Neg); Influenza B virus by PCR Neg for Influ B (Neg)
[2019-02-28] MEDS ORDERED: CARVEDILOL 12.5 MG TAB ONE (21:05)
[2019-02-28 21:15] LABS: Allen Test Pos (Pos); HCO3 ABG 24 mmol/L (19-24); Oxygen Saturation ABG 92.9 % (90-95); PCO2 ABG 40 mmHg (35-46); PO2 ABG 70 mm/Hg (80-95); pH ABG 7.39 (7.35-7.45)
[2019-02-28] MEDS ORDERED: LACTATED RINGER'S 1,000 ML IV ONE (23:10)
[2019-02-28] MEDS ORDERED: HYDROCODONE/ACETAMOPHEN 5/325MG TAB PO PRN (23:10)
[2019-02-28] MEDS ORDERED: PROMETHAZINE HCL 12.5 MG in SODIUM CHLORIDE 0.9% 50 ML IV PRN (23:10)
[2019-02-28] MEDS ORDERED: ACETAMINOPHEN 325 MG TAB PO PRN (23:10)
[2019-02-28] MEDS ORDERED: HYDROmorphone INJ 0.5 MG/0.5 ML SYR IV PRN (23:10)
[2019-02-28] MEDS ORDERED: XOPENEX/ATROVENT 1.25mg/0.5MG NEB COMBO NEB SCH (23:10)
[2019-02-28] MEDS ORDERED: LEVALBUTEROL 1.25MG/0.5ML NEB INH ONE (23:45)
[2019-02-28] MEDS ORDERED: IPRATROPIUM BROMIDE NEB SOLN 0.02% 2.5 ML VIAL INH ONE (23:45)
[2019-03-01] MEDS: MAGNESIUM SULFATE / D5W 1 GM/100 ML BAG IV SCH ×2 (00:08→06:20)
[2019-03-01] MEDS: GABAPENTIN 100 MG CAP PO SCH ×4 (00:09→20:52)
[2019-03-01] MEDS: AMITRIPTYLINE HCL 25 MG TAB PO SCH ×2 (00:09→20:52)
[2019-03-01] MEDS: DULOXETINE HCL 30 MG CAP PO SCH ×2 (00:10→20:50)
[2019-03-01] MEDS: MONTELUKAST SODIUM 10 MG TABLET PO SCH ×2 (00:11→20:49)
[2019-03-01] MEDS: SIMVASTATIN 20 MG TAB PO SCH ×2 (00:11→20:52)
[2019-03-01] MEDS: IPRATROPIUM BROMIDE NEB SOLN 0.02% 2.5 ML VIAL INH SCH ×4 (02:02→19:37)
[2019-03-01] MEDS: LEVALBUTEROL 1.25MG/0.5ML NEB INH SCH ×4 (02:02→19:36)
[2019-03-01] MEDS ORDERED: GLUCAGON FOR INJ 1 MG VIAL SQ PRN (02:56)
[2019-03-01] MEDS ORDERED: DEXTROSE 50% 50 ML SYRINGE IV PRN (02:56)
[2019-03-01] MEDS ORDERED: GLUCOSE 10 TABS/TUBE PO PRN (02:56)
[2019-03-01] MEDS ORDERED: GLUCOSE 40% GEL 15 GM TUBE PO PRN (02:56)
[2019-03-01] MEDS ORDERED: CARBOHYDRATES FOR HYPOGLYCEMIA PO PRN (02:56)
[2019-03-01] MEDS: CARVEDILOL 12.5 MG TAB PO SCH ×2 (06:20→20:52)
[2019-03-01] MEDS: LEVOTHYROXINE SODIUM 25 MCG TABLET PO SCH (06:21)
[2019-03-01 06:24] LABS: Hematocrit (blood only) 33.7 % (37-47); Hemoglobin 11.1 g/dL (12.0-16.0); Lymphocytes # (auto) 0.34 K/uL (1.2-3.4); Lymphocytes % (auto) 15.9 %; Mean Corpuscular Hgb Conc 32.9 g/dL (32-36); Mean Corpuscular Volume 104.7 fL (80-100); Mean Platelet Volume 10.2 fL (7.4-10.4); Monocytes # (auto) 0.03 K/uL (0.11-0.59); Monocytes % (auto) 1.4 %; Neutrophils # (auto) 1.77 K/uL (1.4-6.5); Neutrophils % (auto) 82.7 %; Platelet Count 199 K/uL (130-400); RDW Coefficient of Variation 13.4 % (11.5-14.5); RDW Standard Deviation 50.9 fL (36.4-46.3); Red Blood Count 3.22 M/uL (4.2-5.4); White Blood Count 2.14 K/uL (4.8-10.8)
[2019-03-01 06:48] LABS: Prothrombin Time 40.4 Seconds (9.0-12.0)
[2019-03-01 06:56] LABS: BUN Creatinine Ratio 11.6 (10-20); Calcium 8.7 mg/dl (8.5-10.1); Creatinine Clr Calc Pharmacy 56.2 ml/min; Est GFR (African American) 61.9; Est GFR (Non-African American) 53.4
[2019-03-01 07:05] LABS: INR 4.4 (0.9-1.1)
[2019-03-01] MEDS ORDERED: INSULIN ASPART 100 UNITS/ML 3 ML PEN SC SCH (07:30)
[2019-03-01] MEDS: PANTOprazole 40 MG TAB PO SCH (07:49)
[2019-03-01] MEDS: DOXYCYCLINE HYCLATE 100 MG CAP PO SCH ×2 (07:49→20:51)
[2019-03-01] MEDS: methylPREDNISolone 40 MG in SYRINGE 0 ML IV SCH ×2 (08:24→20:49)
[2019-03-01] MEDS ORDERED: CARVEDILOL 12.5 MG TAB PO SCH (09:00)
[2019-03-01] MEDS ORDERED: INSULIN GLARGINE SOLOSTAR 100 UNITS/ML 3 ML PEN SQ SCH (09:00)
--- NOTE | 2019-03-01 15:16 | Hospitalist Progress Note ---
Date of Service March 01, 2019 Assessment & Plan (1) Acute hypoxemic respiratory failure: Secondary to Asthma exacerbation/complicated bronchitis Chronic oxygen dependency: On 2 L of oxygen at bedtime No signs of sepsis CXR:Minimal basilar opacities likely atelectasis or scarring. No convincing evidence of acute cardiopulmonary disease. Continue doxycycline, Solu-Medrol, nebs A. fib/PE/DVT On chronic anticoagulation INR is supratherapeutic INR:4.4 Received 2.5 mg vitamin K Hold Coumadin Continue Coreg Hypertension BP elevated Continue Coreg Lisinopril on hold Monitor XIN: Ct improved with IV fluids Lisinopril held Avoid Nephrotoxic agents as able Monitor renal function Hyperlipidemia Continue simvastatin Hypothyroidism: Continue levothyroxine Hyperglycemia: Likely due to steroids Check A1c DVT Px: INR supratherapeutic Code Status Full code Subjective Patient is seen and examined at bedside Reports dry cough, chest pain associated with cough and sore throat Denies any shortness of breath at rest Family at bedside Offers no other complaints Review of Systems Review of Systems: All systems reviewed & are unremarkable except as noted in HPI & below Physical Exam Physical Exam: Physical Exam: Vitals signs as noted above General Appearance:Obese, no apparent distress Head: normocephalic, Atraumatic Eyes: normal inspection, EOMI Neck: supple, Trachea midline Respiratory/Chest: Coarse breath sounds, + Rhonchi Cardiovascular: S1, S2, No murmur Abdomen/GI:Soft, Non tender, Bowel sounds present Extremities/Musculoskelatal:normal inspection, Trace edema Neurologic/Psych:AAOX3, grossly no focal neurological deficits Skin: normal color, warm Results & Data Vital Signs (Past 12 Hours) Vital Signs Temp Pulse Pulse Pulse Resp BP Pulse Ox 03/01/19 14:43 36.9 C 95 H 18 161/99 H 96 03/01/19 14:00 90 18 98 03/01/19 12:52 37.1 C 85 18 159/77 H 98 03/01/19 12:43 37.1 C 85 17 159/77 H 98 03/01/19 07:26 88 18 94 03/01/19 07:25 106 H 03/01/19 07:12 36.7 C 84 20 137/82 93 03/01/19 03:46 36.7 C 84 20 138/71 94 Laboratory Results Short CBC 02/28/19 03/01/19 Range/Units 18:07 05:46 WBC 5.60 2.14 L (4.8-10.8) K/uL Hgb 11.1 L 11.1 L (12.0-16.0) g/dL Hct 34.3 L 33.7 L (37-47) % Plt Count 205 199 (130-400) K/uL BMP 02/28/19 03/01/19 18:07 05:46 Sodium 142 139 Potassium 3.8 4.0 Chloride 107 106 Carbon Dioxide 29 25 BUN 12 12 Creatinine 1.26 H 1.02 Glucose 99 131 H Calcium 9.1 8.7 Cardiac Enzymes 02/28/19 Range/Units 18:07 Troponin I < 0.015 (0-0.045) ng/ml Liver Function 02/28/19 Range/Units 18:07 Total Bilirubin 0.7 (0.2-1) mg/dl AST 22 (15-37) U/L ALT 14 (12-78) U/L Alkaline Phosphatase 76 (45-117) U/L Albumin 3.0 L (3.4-5.0) gm/dl
[2019-03-01] MEDS ORDERED: SUMAtriptan succinate 50 MG TAB PO ONE (15:45)
[2019-03-02] MEDS: LEVALBUTEROL 1.25MG/0.5ML NEB INH SCH ×4 (02:14→19:36)
[2019-03-02] MEDS: IPRATROPIUM BROMIDE NEB SOLN 0.02% 2.5 ML VIAL INH SCH ×4 (02:14→19:36)
[2019-03-02] MEDS: LEVOTHYROXINE SODIUM 25 MCG TABLET PO SCH (05:58)
[2019-03-02 07:04] LABS: INR 2.8 (0.9-1.1); Prothrombin Time 26.8 Seconds (9.0-12.0)
[2019-03-02 07:13] LABS: Calcium 8.5 mg/dl (8.5-10.1); Creatinine Clr Calc Pharmacy 41.3 ml/min; Est GFR (African American) 42.6; Est GFR (Non-African American) 36.7; Potassium 3.9 mmol/L (3.5-5.1)
[2019-03-02 07:54] LABS: Estimated Average Glucose 97 mg/dl
[2019-03-02] MEDS: methylPREDNISolone 40 MG in SYRINGE 0 ML IV SCH (08:04)
[2019-03-02] MEDS: DOXYCYCLINE HYCLATE 100 MG CAP PO SCH ×2 (08:04→21:02)
[2019-03-02] MEDS: GABAPENTIN 100 MG CAP PO SCH ×3 (08:04→21:02)
[2019-03-02] MEDS: CARVEDILOL 12.5 MG TAB PO SCH ×2 (08:04→21:02)
[2019-03-02] MEDS: PANTOprazole 40 MG TAB PO SCH (08:04)
[2019-03-02] MEDS ORDERED: SODIUM CHLORIDE 0.9% 1000ML 1,000 ML IV ONE (08:05)
--- NOTE | 2019-03-02 13:50 | Hospitalist Progress Note ---
Date of Service March 02, 2019 Assessment & Plan (1) Acute hypoxemic respiratory failure: Secondary to Asthma exacerbation/complicated bronchitis Chronic oxygen dependency: On 2 L of oxygen at bedtime No signs of sepsis CXR:Minimal basilar opacities likely atelectasis or scarring. No convincing evidence of acute cardiopulmonary disease. Continue doxycycline, Solu-Medrol, nebs Clinically improving A. fib/PE/DVT On chronic anticoagulation INR is supratherapeutic INR:4.4>>>2.8 Received 2.5 mg vitamin K Resume Coumadin: 2mg today Continue Coreg Hypertension BP stable Continue Coreg Lisinopril on hold due to XIN Monitor XIN on CKD III: Baseline Cr: 1.1 Cr:1.39 today Continue IV fluids Lisinopril held Avoid Nephrotoxic agents as able Monitor renal function Hyperlipidemia Continue simvastatin Hypothyroidism: Continue levothyroxine Hyperglycemia: Likely due to steroids A1c:5.0 DVT Px: Coumadin Code Status Full code Disposition: Expect to discharge home when stable Subjective Patient is seen and examined at bedside Doing better today Less cough and sore throat Denies any chest pain, shortness of breath, dizziness family at bedside Offers no other complaints Review of Systems Review of Systems: All systems reviewed & are unremarkable except as noted in HPI & below Physical Exam Physical Exam: Physical Exam: Vitals signs as noted above General Appearance:Obese, no apparent distress Head: normocephalic, Atraumatic Eyes: normal inspection, EOMI Neck: supple, Trachea midline Respiratory/Chest: Coarse breath sounds, + Rhonchi Cardiovascular: S1, S2, No murmur Abdomen/GI:Soft, Non tender, Bowel sounds present Extremities/Musculoskelatal:normal inspection, Trace edema Neurologic/Psych:AAOX3, grossly no focal neurological deficits Skin: normal color, warm Results & Data Vital Signs (Past 12 Hours) Vital Signs Temp Pulse Pulse Pulse Resp BP Pulse Ox 03/02/19 12:00 36.4 C L 84 20 139/66 94 03/02/19 10:18 97 03/02/19 08:00 84 03/02/19 07:32 88 16 96 03/02/19 04:59 36.8 C 88 19 142/73 H 93 03/02/19 02:16 87 16 90 Laboratory Results [facility] 03/02/19 06:04 Sodium 139 Potassium 3.9 Chloride 107 Carbon Dioxide 27 BUN 17 Creatinine 1.39 H D Glucose 128 H Calcium 8.5
[2019-03-02] MEDS ORDERED: WARFARIN SOD 2 MG TAB PO SCH (16:00)
[2019-03-02] MEDS: SIMVASTATIN 20 MG TAB PO SCH (21:02)
[2019-03-02] MEDS: AMITRIPTYLINE HCL 25 MG TAB PO SCH (21:02)
[2019-03-02] MEDS: MONTELUKAST SODIUM 10 MG TABLET PO SCH (21:02)
[2019-03-02] MEDS: DULOXETINE HCL 30 MG CAP PO SCH (21:02)
[2019-03-03] MEDS: IPRATROPIUM BROMIDE NEB SOLN 0.02% 2.5 ML VIAL INH SCH ×2 (01:32→07:27)
[2019-03-03] MEDS: LEVALBUTEROL 1.25MG/0.5ML NEB INH SCH ×2 (01:33→07:27)
[2019-03-03] MEDS: LEVOTHYROXINE SODIUM 25 MCG TABLET PO SCH (06:10)
[2019-03-03 06:33] LABS: INR 2.4 (0.9-1.1)
[2019-03-03 07:01] LABS: BUN Creatinine Ratio 15.4 (10-20); Calcium 8.2 mg/dl (8.5-10.1); Creatinine Clr Calc Pharmacy 40.4 ml/min; Est GFR (African American) 41.1; Est GFR (Non-African American) 35.5; Potassium 3.7 mmol/L (3.5-5.1)
[2019-03-03] MEDS: methylPREDNISolone 40 MG in SYRINGE 0 ML IV SCH (08:01)
[2019-03-03] MEDS: GABAPENTIN 100 MG CAP PO SCH ×2 (08:01→13:49)
[2019-03-03] MEDS: DOXYCYCLINE HYCLATE 100 MG CAP PO SCH (08:01)
[2019-03-03] MEDS: CARVEDILOL 12.5 MG TAB PO SCH (08:01)
[2019-03-03] MEDS: PANTOprazole 40 MG TAB PO SCH (08:01)
[2019-03-03] MEDS ORDERED: LEVALBUTEROL 1.25MG/0.5ML NEB INH PRN (09:40)
[2019-03-03] MEDS ORDERED: IPRATROPIUM BROMIDE NEB SOLN 0.02% 2.5 ML VIAL INH PRN (09:40)
[2019-03-03] MEDS ORDERED: FLUTICASONE/SALMETEROL 250/50 (ADVAIR) 14 PUFF/1 INHALER INH SCH (10:30)
--- NOTE | 2019-03-03 13:08 | Hospitalist Progress Note ---
Date of Service March 03, 2019 Assessment & Plan (1) Acute hypoxemic respiratory failure: Secondary to Asthma exacerbation/complicated bronchitis Chronic oxygen dependency: On 2 L of oxygen at bedtime No signs of sepsis CXR:Minimal basilar opacities likely atelectasis or scarring. No convincing evidence of acute cardiopulmonary disease. Continue doxycycline, Solu-Medrol, nebs Resume home inhalers Clinically improved A. fib/PE/DVT On chronic anticoagulation INR is supratherapeutic on presentation INR:4.4>>>2.8>>2.4 Received 2.5 mg vitamin K Continue Coumadin Continue Coreg Hypertension BP stable Continue Coreg Monitor XIN on CKD III: Baseline Cr: 1.1 Creatinine levels not improved with IV fluids Likely new baseline creatinine levels Received IV fluids Lisinopril held during hospital stay Avoid Nephrotoxic agents as able Monitor renal function Hyperlipidemia Continue simvastatin Hypothyroidism: Continue levothyroxine Hyperglycemia: Likely due to steroids A1c:5.0 DVT Px: Coumadin Code Status Full code Disposition: Expect to discharge home when stable Subjective Patient is seen and examined at bedside Had poor sleep overnight Has intermittent cough Denies any chest pain, shortness of breath, dizziness family at bedside Offers no other complaints Review of Systems Review of Systems: All systems reviewed & are unremarkable except as noted in HPI & below Physical Exam Physical Exam: Physical Exam: Vitals signs as noted above General Appearance:Obese, no apparent distress Head: normocephalic, Atraumatic Eyes: normal inspection, EOMI Neck: supple, Trachea midline Respiratory/Chest: Decreased breath sounds, CTA i Cardiovascular: S1, S2, No murmur Abdomen/GI:Soft, Non tender, Bowel sounds present Extremities/Musculoskelatal:normal inspection, Trace edema Neurologic/Psych:AAOX3, grossly no focal neurological deficits Skin: normal color, warm Results & Data Vital Signs (Past 12 Hours) Vital Signs Temp Pulse Pulse Resp BP BP Pulse Ox 03/03/19 11:25 36.5 C 75 20 161/82 H 99 03/03/19 08:00 72 03/03/19 07:27 36.7 C 87 20 161/78 H 96 03/03/19 07:20 84 20 98 03/03/19 06:55 78 03/03/19 04:57 36.5 C 88 18 174/76 H 96 03/03/19 01:33 81 18 97 Laboratory Results [facility] 03/03/19 05:47 Sodium 140 Potassium 3.7 Chloride 109 H Carbon Dioxide 26 BUN 22 H Creatinine 1.43 H Glucose 124 H Calcium 8.2 L
--- NOTE | 2019-03-03 13:16 | Discharge Summary ---
Date of Service March 03, 2019 Admission HPI Per Admitting Provider History obtained from patient and records. Medical history significant for asthma, A. fib/PE/DVT on Coumadin, CAD as per records, hypertension, hyperlipidemia WAYLON as per records, hypothyroidism, chronic anemia baseline hemoglobin of 11 Recent confinement 3 weeks ago for community-acquired pneumonia. Few days history of wheezing, cough initially dry later productive of junky sputum. No fever, no chills. Chest pain with coughing. Increasing shortness of breath. No unusual headache symptoms. Denies fluid retention. Poor appetite. No known sick contacts. At the ER, patient received Solu-Medrol, neb treatment, IV ceftriaxone for asthma exacerbation. 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 Admission Exam Per Admitting Provider GENERAL: Slightly uncomfortable, audible wheezing, obese, no respiratory distress SKIN: Normal color, warm HEENT: Pale palpebral conjunctivae, no ptosis, dry buccal mucosa, nasal cannula in place NECK : Supple, short, no tenderness CHEST : Expiratory wheezes, no tenderness HEART : RRR, no obvious murmurs ABDOMEN: Some distention, nontender EXTREMITIES : No LE swelling/tenderness, no other conspicuous deformities noted NEUROLOGIC : Coherent, no facial asymmetry, no other gross focality Principal Diagnosis Discharge Information Discharge Diagnosis Acute on chronic hypoxemic respiratory failure Acute asthma exacerbation Acute bronchitis Supratherapeutic INR Discharge Goals Decrease discomfort,Improve disease control, Improve function Discharge Activity Limitations Resume your previous activity Discharge Data Allergies Allergy/AdvReac Type Severity Reaction Status Date / Time aspirin Allergy Unknown Unknown Verified 02/28/19 19:14 Sulfa (Sulfonamide Allergy Unknown Unknown Verified 02/28/19 19:14 Antibiotics) Procedures Performed CXR: Minimal basilar opacities likely atelectasis or scarring. No convincing evidence of acute cardiopulmonary disease. Hospital Course (1) Acute hypoxemic respiratory failure: Secondary to Asthma exacerbation/complicated bronchitis Chronic oxygen dependency: On 2 L of oxygen at bedtime No signs of sepsis CXR:Minimal basilar opacities likely atelectasis or scarring. No convincing evidence of acute cardiopulmonary disease. Continue doxycycline, Solu-Medrol, nebs Resume home inhalers Clinically improved A. fib/PE/DVT On chronic anticoagulation INR is supratherapeutic on presentation INR:4.4>>>2.8>>2.4 Received 2.5 mg vitamin K Continue Coumadin Continue Coreg Hypertension BP stable Continue Coreg Monitor XIN on CKD III: Baseline Cr: 1.1 Creatinine levels not improved with IV fluids Likely new baseline creatinine levels Received IV fluids Lisinopril held during hospital stay Avoid Nephrotoxic agents as able Monitor renal function Hyperlipidemia Continue simvastatin Hypothyroidism: Continue levothyroxine Hyperglycemia: Likely due to steroids A1c:5.0 DVT Px: Coumadin Code Status Full code Disposition: Expect to discharge home when stable Total Time Total Time Spent Total Time Spent (In Minutes): 37 minutes Total Time Includes: Examination of the Patient, Discharge Planning, Medication Reconciliation and Other Discharge Plan Discharge Items Patient Disposition: Home - Self-Care Reason For Visit: RESP FAILURE Discharge Diagnosis: Acute on chronic hypoxemic respiratory failure Acute asthma exacerbation Acute bronchitis Supratherapeutic INR Discharge Goals: Decrease discomfort, Improve disease control and Improve function Activity: Resume your previous activity Exercise/Sports: Gradually increase as tolerated Non-emergency contact: Primary Care Provider Call non-emergency contact if: you have any medication questions, your symptoms worsen, your pain is not controlled, your pain is worsening, your pain is unusual for you, your pain is concerning for you and you have a fever Follow-up/Referrals: Giorgio Salas, [Primary Care Provider] - Diet: Heart Healthy Other Ambulatory Orders: Basic Metabolic Panel (Routine) Timeframe: 1 Week Location: Determined by Patient Ordered By: Keith Moreira Provider Instructions: Follow-up with your primary care physician Dr. Kwan on March 06, 2019 at 1:05pm Follow-up with your Coumadin clinic for dosing of your Coumadin as scheduled Complete the antibiotic and prednisone course as prescribed Get Blood Test (Basic Metabolic Panel) in 1 week and follow up with your Physician Seek immediate medical attention if your symptoms reoccur or worsen Prescriptions: New doxycycline hyclate 100 mg Capsule 100 mg PO BID 3 Days Qty: 6 RF: 0 prednisone 20 mg tablet 40 mg PO DAILY 3 Days Qty: 6 RF: 0 Continued pantoprazole 40 mg Tablet,Delayed Release (Dr/Ec) 40 mg PO QAM 30 Days Qty: 30 RF: 0 duloxetine 30 mg capsule,delayed release(DR/EC) 30 mg PO HS RF: 0 fluticasone propion-salmeterol [Advair Diskus] 250-50 mcg/dose Blister With Device 1 inh INHALATION BID RF: 0 acetaminophen [Tylenol] 325 mg Tablet 650 mg PO HS RF: 0 carvedilol 12.5 mg tablet 12.5 mg PO BID RF: 0 sumatriptan succinate 100 mg tablet 100 mg PO UD PRN (Reason: Migraine Headache) RF: 0 hydrocodone-acetaminophen 5-325 mg tablet 1 - 2 tab PO UD PRN (Reason: Pain) RF: 0 alendronate 70 mg tablet 70 mg PO WK RF: 0 levothyroxine 25 mcg tablet 25 mcg PO HS RF: 0 amitriptyline 25 mg tablet 25 mg PO HS RF: 0 simvastatin 20 mg tablet 20 mg PO HS RF: 0 warfarin [Jantoven] 5 mg tablet See Rx Instructions .ROUTE .COMPLEX RF: 0 montelukast 10 mg tablet 10 mg PO HS RF: 0 lisinopril 5 mg tablet 5 mg PO QAM RF: 0 gabapentin 100 mg capsule 200 mg PO TID RF: 0 albuterol sulfate [Ventolin HFA] 90 mcg/actuation Hfa Aerosol Inhaler 2 puff INHALATION QID PRN (Reason: Shortness Of Breath Or Wheezing) RF: 0 cholecalciferol (vitamin D3) [Vitamin D3] 5,000 unit Tablet 5,000 unit PO HS RF: 0 Blue Emu 1 applic topical 3XWK RF: 0 Stand-Alone Forms: [facility] Discharge Orders: Discharge Order (Routine); Ordered 03/03/19 Ordered By: Keith Snider Admission Data Admit Date/Time: 02/28/19 19:58 Attending Provider: Keith Snider Admit Provider: Len Orellana Primary Care Provider: Giorgio Salas Other Providers: Home,Nursing Agency Service: Telemetry Medical Other Interventions: Discharge Summary Assessment (RN) Last Done: 03/03/19 13:21 Pending Studies at Discharge: No DC Date/Time DO NOT enter until pt leaves facility: 03/03/19 13:57
== END 2019-03-03 13:57 | disposition home or self-care (01) | DRG 189 ==
LOC: ED 17:34 → 2N 19:58

== ENCOUNTER 2019-07-21 23:20 | Inpatient (IN) ==
[2019-07-21] MEDS ORDERED: PROCHLORPERAZINE 5 MG/ML 2 ML VIAL IV STA (23:37)
[2019-07-21] MEDS ORDERED: DEXAMETHASONE **PF** INJ 10 MG/ML VIAL IV ONE (23:37)
[2019-07-21] MEDS ORDERED: MAGNESIUM SULFATE / D5W 1 GM/100 ML BAG IV ONE (23:37)
[2019-07-21] MEDS ORDERED: DiphenhydrAMINE HCL 50 MG/ML VIAL IV STA (23:37)
[2019-07-21] MEDS ORDERED: SODIUM CHLORIDE 0.9% 500 ML IV SCH (23:45)
[2019-07-21 23:56] LABS: Hematocrit (blood only) 35.7 % (37-47); Lymphocytes # (auto) 0.37 K/uL (1.2-3.4); Lymphocytes % (auto) 10.6 %; Mean Corpuscular Hemoglobin 35.8 pg (25-34); Mean Corpuscular Hgb Conc 33.6 g/dL (32-36); Mean Corpuscular Volume 106.6 fL (80-100); Mean Platelet Volume 9.8 fL (7.4-10.4); Monocytes # (auto) 0.02 K/uL (0.11-0.59); Monocytes % (auto) 0.6 %; Neutrophils # (auto) 3.09 K/uL (1.4-6.5); Neutrophils % (auto) 88.8 %; Platelet Count 231 K/uL (130-400); RDW Coefficient of Variation 13.4 % (11.5-14.5); RDW Standard Deviation 52.1 fL (36.4-46.3); Red Blood Count 3.35 M/uL (4.2-5.4); White Blood Count 3.48 K/uL (4.8-10.8)
[2019-07-22 00:14] LABS: Partial Thromboplastin Ratio 1.6; Partial Thromboplastin Time 43.3 Seconds (21.0-31.0); Prothrombin Time 53.2 Seconds (9.0-12.0)
[2019-07-22 00:15] LABS: BUN Creatinine Ratio 13.9 (10-20); Blood Urea Nitrogen 17 mg/dl (7-18); Calcium 9.5 mg/dl (8.5-10.1); Carbon Dioxide 22 mmol/L (21-32); Chloride 104 mmol/L (98-107); Est GFR (Non-African American) 42.3; Glucose 131 mg/dl (70-99); Potassium 3.5 mmol/L (3.5-5.1); Sodium 137 mmol/L (136-145)
[2019-07-22 00:36] LABS: INR 5.9 (0.9-1.1)
[2019-07-22] MEDS ORDERED: MoRPHine SULFATE 4 MG/ML 1 ML CARP\\VIAL IV STA (00:44)
[2019-07-22] MEDS ORDERED: PHYTONADIONE 5 MG TAB PO STA (00:59)
[2019-07-22] MEDS ORDERED: VALPROATE SOD 1,000 MG in DEXTROSE 5% 50 ML IV STA (01:15)
[2019-07-22] MEDS ORDERED: HYDROmorphone INJ 0.5 MG/0.5 ML SYR IV STA (01:15)
--- NOTE | 2019-07-22 01:37 | Emergency Department Note ---
Entered by Laura Montero acting as a scribe for History of Present Illness General Chief complaint: Headache Stated complaint: MIGRAINE Time Seen by Provider: 07/21/19 23:32 History of Present Illness Provider complaint: migraine Onset (ago): hour(s) 5 Location: head Severity: similar to prior episodes (10 years ago) Pain Consistency: + other (episode) Maximum Pain Intensity: 10 Relieved By: not by medication (Imitrex and Hydrocodone) Associated symptoms: + denies other symptoms (recent fall or trauma, black/bloody stools), + nausea/vomiting (a few days ago) and + other (pain radiates from her forehead to the right side of her head, more painful and lasting longer than usual, photophobia, Coumadin use, did not take blood pressure medication today) The patient is a 79 year old female who presents to the ED with complaints of an episode of a migraine that started approximately 5 hours ago. The patient states that her pain radiates from her forehead to the right side of her head. The patient notes that this is similar to her other migraines but it is more severe and is lasting longer despite medications.. The patient notes that she has photophobia. The patient states the last time she had a headache like this was approximately 10 years ago. The patient denies relief from Imitrex and Hydrocodone. The patient denies recent fall or trauma and black/bloody stools. The patient states that she does take Coumadin. The patient denies taking her blood pressure medication tonight. She did not take her Coumadin tonight. The patient states that she was sick last , but started to feel better yesterday. The patient reports a few episodes of vomiting during this time. Home Medications Home Medications Medication Instructions Recorded Confirmed Type Blue Emu 1 applic TOPICAL 3XWK 11/10/18 07/22/19 History acetaminophen [Tylenol] 650 mg PO QID PRN 11/10/18 07/22/19 History albuterol sulfate [Ventolin HFA] 2 puff INHALATION QID PRN 11/10/18 07/22/19 History alendronate 70 mg PO WK 11/10/18 07/22/19 History amitriptyline 25 mg PO HS 11/10/18 07/22/19 History carvedilol 12.5 mg PO BID 11/10/18 07/22/19 History cholecalciferol (vitamin D3) 5,000 unit PO HS 11/10/18 07/22/19 History [Vitamin D3] gabapentin 200 mg PO TID 11/10/18 07/22/19 History hydrocodone-acetaminophen 1 - 2 tab PO UD PRN 11/10/18 07/22/19 History levothyroxine 25 mcg PO HS 11/10/18 07/22/19 History lisinopril 5 mg PO QAM 11/10/18 07/22/19 History montelukast 10 mg PO HS 11/10/18 07/22/19 History sumatriptan succinate 100 mg PO UD PRN 11/10/18 07/22/19 History warfarin [Jantoven] See Rx Instructions .ROUTE .COMPLEX 11/10/18 07/22/19 History duloxetine 30 mg PO HS 02/28/19 07/22/19 History fluticasone propion-salmeterol 1 inh INHALATION BID 03/03/19 07/22/19 History [Advair Diskus] Lipitor 20 mg PO DAILY 07/22/19 07/22/19 History pantoprazole 40 mg PO DAILY 07/22/19 07/22/19 History Allergies Allergy/AdvReac Type Severity Reaction Status Date / Time aspirin Allergy Unknown Unknown Verified 07/22/19 00:20 Sulfa (Sulfonamide Allergy Unknown Unknown Verified 07/22/19 00:20 Antibiotics) Past Med/Surg History Medical History Acute hypoxemic respiratory failure (Acute) Asthma Asthma with exacerbation (Acute) Atrial flutter Hypertension (Acute) Hypothyroidism Pneumonia (Acute) Pulmonary embolism (Chronic 10/10/12) Symptomatic anemia Family History Other Family history non-contributory Social History Preferred Language: Tuvaluan Communication Ability: Effective Visual Impairment: No Limitations Hearing Ability: Normal Poultry Processor Required: No Beliefs That Will Affect Care: None marital status: Current Living Situation: Spouse current occupational status: retired Feels Safe at Home: Yes Smoking Status: Never smoker Second Hand Exposure: Yes ( smokes in the home) ; Hx Alcohol Use: No Hx Substance Use: No Review of Systems See HPI for pertinent positives & negatives. and A total of 10 systems reviewed and were otherwise negative Physical Exam Vital Signs Vital Signs - 24 hr 07/21/19 23:25 07/22/19 00:03 Temperature 36.5 C Temperature Source Oral Pulse Rate 94 H Respiratory Rate 16 Respiratory Effort / Characteristics Non-Labored Spontaneous Respiratory Depth Normal Respiratory Pattern Regular Blood Pressure 199/112 H Blood Pressure Mean 141 Blood Pressure Position Sitting Pulse Oximetry 100 Oxygen Delivery Method Room Air Room Air Sepsis Recent Fever Within 48 Hours No Sepsis Action Taken by Nursing No Action Required Constitutional: Vital signs reviewed. Eyes: Pupils are equal round reactive to light. Conjunctiva are noninjected. ENT: Pharynx is clear without erythema or exudate. Mucous membranes are moist. Neck supple without meningeal signs. Respiratory: Clear to auscultation bilaterally. Breath sounds are equal bilaterally. Cardiovascular: Regular rate and rhythm. No rubs or gallops. GI: Soft, nondistended and nontender. Bowel sounds are present. Musculoskeletal: No peripheral edema. No lower extremity tenderness. Integumentary: No cyanosis. Neurological: The patient is awake and alert. Cranial nerves II-XII are intact. Motor is 5 out of 5 all extremities. Sensation is intact to light touch all extremities. Normal speech. No pronator drift. Psychiatric: Normal affect. Course Course 2334: Past medical records reviewed. The patient was evaluated in room B2. A complete history and physical exam was performed. 0043: I reevaluated the patient and she states that her headache is slightly better. I updated her on her blood work and she states that she is on 5 mg and 2.5 mg of Coumadin alternating. 0058: I reevaluated the patient and she states that her headache is slightly better. I discussed the CT results with her. 0102: I discussed the patient's case with Dr. Navid Cazares. He will evaluate the patient for further management. Consultations Consultation #1: I discussed the patient's case with Dr. Navid Cazares. He will evaluate the patient for further management. Time: 01:02 Administered Medications Discontinued Medications Dexamethasone Sodium Phosphate (Decadron Pf) 10 mg IV NOW ONE Stop: 07/21/19 23:38 Last Admin: 07/21/19 23:52 Dose: 10 mg Documented by: [id number] Diphenhydramine HCl (Benadryl) 25 mg IV NOW STA Stop: 07/21/19 23:38 Last Admin: 07/21/19 23:52 Dose: 25 mg Documented by: [id number] Hydromorphone HCl (Dilaudid) 0.5 mg IV NOW STA Stop: 07/22/19 01:16 Last Admin: 07/22/19 01:25 Dose: 0.5 mg Documented by: [id number] Sodium Chloride (Nss) 500 mls @ 999 mls/hr IV .Q31M TRACI Stop: 07/22/19 00:15 Last Infusion: 07/22/19 00:33 Dose: 0 mls/hr Documented by: [id number] Admin: 07/22/19 00:02 Dose: 999 mls/hr Documented by: [id number] Magnesium Sulfate/Dextrose (Magnesium Sulfate / D5w) 1 gm in 100 mls @ 100 mls/hr IV ONE ONE Stop: 07/22/19 00:36 Last Infusion: 07/22/19 01:08 Dose: 0 mls/hr Documented by: [id number] Admin: 07/21/19 23:52 Dose: 100 mls/hr Documented by: [id number] Morphine Sulfate (Morphine Sulfate) 4 mg IV NOW STA Stop: 07/22/19 00:45 Last Admin: 07/22/19 00:47 Dose: 4 mg Documented by: [id number] Phytonadione (Mephyton) 5 mg PO NOW STA Stop: 07/22/19 01:00 Last Admin: 07/22/19 01:09 Dose: 5 mg Documented by: [id number] Prochlorperazine (Compazine) 10 mg IV NOW STA Stop: 07/21/19 23:38 Last Admin: 07/21/19 23:52 Dose: 10 mg Documented by: [id number] Medical Decision Making Differential Diagnosis Differentials include migraine headache, tension headache, ICH, intracranial mass, supratherapeautic INR. Medical Records Attestation: I reviewed the patient's medical records. I did perform a limited focused review of portions of the patient's old chart on the electronic medical record. The patient has had no recent pertinent visits to this hospital. Home Medications Current Medication List: was personally reviewed by me Laboratory Data Attestation: I reviewed the patient's lab results. Result diagrams: 12/03/19 23:48 07/21/19 23:48 Lab Results 07/21/19 07/21/19 07/21/19 Range/Units 23:48 23:48 23:48 WBC 3.48 L (4.8-10.8) K/uL RBC 3.35 L (4.2-5.4) M/uL Hgb 12.0 (12.0-16.0) g/dL Hct 35.7 L (37-47) % MCV 106.6 H (80-100) fL MCH 35.8 H (25-34) pg MCHC 33.6 (32-36) g/dL RDW Std Deviation 52.1 H (36.4-46.3) fL RDW Coeff of Vijay 13.4 (11.5-14.5) % Plt Count 231 (130-400) K/uL MPV 9.8 (7.4-10.4) fL Immature Gran % (Auto) 0.0 % Neut % (Auto) 88.8 % Lymph % (Auto) 10.6 % [place] % (Auto) 0.6 % Eos % (Auto) 0.0 % Baso % (Auto) 0.0 % Immature Gran # (Auto) 0.00 (0.00-0.02) K/uL Neut # (Auto) 3.09 (1.4-6.5) K/uL Lymph # (Auto) 0.37 L (1.2-3.4) K/uL [place] # (Auto) 0.02 L (0.11-0.59) K/uL Eos # (Auto) 0.00 (0-0.5) K/uL Baso # (Auto) 0.00 (0-0.2) K/uL PT 53.2 H (9.0-12.0) Seconds INR 5.9 H* (0.9-1.1) APTT 43.3 H (21.0-31.0) Seconds PTT Ratio 1.6 Sodium 137 (136-145) mmol/L Potassium 3.5 (3.5-5.1) mmol/L Chloride 104 (98-107) mmol/L Carbon Dioxide 22 (21-32) mmol/L Anion Gap 11.0 (3-11) BUN 17 (7-18) mg/dl Creatinine 1.23 H (0.6-1.2) mg/dl Est Cr Clr Drug Dosing Not Reportable Est GFR ( Amer) 49.0 Est GFR (Non-Af Amer) 42.3 BUN/Creatinine Ratio 13.9 (10-20) Glucose 131 H (70-99) mg/dl Calcium 9.5 (8.5-10.1) mg/dl Imaging Data Radiologist's Impression: Radiology results as stated below per my review and the radiologist's interpretation: CT HEAD: No acute intracranial hemorrhage, mass effect, midline shift, hydrocephalus or acute infarct. Generalized atrophy. Low-density in the bilateral periventricular white matter is nonspecific but probably represents chronic small vessel ischemic disease. Bony structures are intact. Soft tissues are unremarkable. Radiologist: Lima Xavier MD Blood Pressure Blood Pressure Findings: Elevated blood pressure Blood Pressure Disposition: further management by hospitalist ISABEL Shields I did evaluate the patient as noted above. The patient has a long-standing history of migraine headaches. She states the headache she had today is similar to her prior migraines but it is more intense and lasting longer than usual. She did take Imitrex and hydrocodone prior to arrival but still has a bad headache. She does state that she is on Coumadin for history of clots. She did not take her Coumadin today. The headache was not sudden in onset. It is not the worst headache of her life and she remembers having a similar headache approximately 10 years ago. IV access was established. The patient was placed on a continuous air sampling and monitoring. I did treat the patient with IV Benadryl, Compazine, Decadron, magnesium and normal saline. She did not have significant improvement and so I did treat her with morphine IV. I did order and review the patient's blood work as noted in the electronic medical record. She is not anemic. White count is 3.5. Creatinine is 1.2. INR is supratherapeutic at 5.9. I did order a stat CT of the head. I did review the images myself as well as the radiology report as described above. There is no evidence of intracranial hemorrhage. I did treat the patient with vitamin K 5 mg p.o. I did reassess the patient. She states she still has a headache. At this point given the persistence of her headache I did recommend hospitalization for furt her care. She was agreeable. I did treat her with Dilaudid 0.5 mg IV and valproic acid 1 g IV. I did discuss case with the hospitalist and case maker. Impression & Plan Migraine, Supratherapeutic INR Discharge Plan Visit Data Chief Complaint: Headache Stated Complaint: MIGRAINE ED Provider: George Valdez Discharge Problem: Migraine, Supratherapeutic INR Patient Disposition: Being Evaluated by Hospitalist Forms Stand Alone Forms: [facility] Prescriptions Prescriptions: No Action duloxetine 30 mg capsule,delayed release(DR/EC) 30 mg PO HS RF: 0 fluticasone propion-salmeterol [Advair Diskus] 250-50 mcg/dose Blister With Device 1 inh INHALATION BID RF: 0 pantoprazole 40 mg tablet,delayed release (DR/EC) 40 mg PO DAILY RF: 0 Lipitor 20 mg 20 mg PO DAILY RF: 0 acetaminophen [Tylenol] 325 mg Tablet 650 mg PO QID PRN (Reason: Pain) RF: 0 carvedilol 12.5 mg tablet 12.5 mg PO BID RF: 0 sumatriptan succinate 100 mg tablet 100 mg PO UD PRN (Reason: Migraine Headache) RF: 0 hydrocodone-acetaminophen 5-325 mg tablet 1 - 2 tab PO UD PRN (Reason: Pain) RF: 0 alendronate 70 mg tablet 70 mg PO WK RF: 0 levothyroxine 25 mcg tablet 25 mcg PO HS RF: 0 amitriptyline 25 mg tablet 25 mg PO HS RF: 0 warfarin [Jantoven] 5 mg tablet See Rx Instructions .ROUTE .COMPLEX RF: 0 montelukast 10 mg tablet 10 mg PO HS RF: 0 lisinopril 5 mg tablet 5 mg PO QAM RF: 0 gabapentin 100 mg capsule 200 mg PO TID RF: 0 albuterol sulfate [Ventolin HFA] 90 mcg/actuation Hfa Aerosol Inhaler 2 puff INHALATION QID PRN (Reason: Shortness Of Breath Or Wheezing) RF: 0 cholecalciferol (vitamin D3) [Vitamin D3] 5,000 unit Tablet 5,000 unit PO HS RF: 0 Blue Emu 1 applic topical 3XWK RF: 0 Referrals Referrals: Giorgio Salas, [Primary Care Provider] - Discharge Problem: Migraine Qualifiers: Migraine type: unspecified Status migrainosus presence: without status migrainosus Intractability: intractable Qualified Code(s): G43.919 - Migraine, unspecified, intractable, without status migrainosus The terry's documentation has been prepared under my direction and personally reviewed by me in its entirety. I confirm that the note above accurately reflects all work, treatment, procedures, and medical decision making performed by me.
[2019-07-22] MEDS ORDERED: cloNIDine HCL 0.1 MG TAB PO PRN (02:48)
[2019-07-22] MEDS ORDERED: PROMETHAZINE HCL 12.5 MG in SODIUM CHLORIDE 0.9% 50 ML IV PRN (02:48)
[2019-07-22] MEDS ORDERED: HYDROmorphone INJ 0.5 MG/0.5 ML SYR IV PRN (02:48)
[2019-07-22] MEDS ORDERED: ALBUTEROL HFA 8 GM INHALER INH PRN (02:48)
[2019-07-22] MEDS ORDERED: ACETAMINOPHEN 325 MG TAB PO PRN (02:48)
[2019-07-22] MEDS ORDERED: HYDROCODONE/ACETAMOPHEN 5/325MG TAB PO PRN (03:18)
[2019-07-22] MEDS ORDERED: ASPIRIN 81 MG CHEW PO STA (03:20)
[2019-07-22] MEDS: NITROGLYCERIN 2% OINTMENT 30GM TUBE EXT SCH ×4 (03:40→21:48)
--- NOTE | 2019-07-22 04:28 | History and Physical Report ---
DATE OF ADMISSION: 07/22/2019 CHIEF COMPLAINT: Severe headache. 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 The patient says the headache started yesterday evening around 5-6 p.m., it was not getting better. She has a history of migraines for a long time and she takes pain pills and that helps her, but this time, this was not getting better, so came here. Generally when she has migraines, the pain sis in the left side of the head, this time it started in the right side of the head from the eye to the neck, severe in nature, 7/10 in severity, also associated with photophobia and phonophobia. No nausea, no blurred visions, no earache, no runny nose, no sore throat, no cough, no fever, no chills, no dysphagia. She has some chest pain in the left side of the chest, but it is more like a tender kind of pain. No shortness of breath, no nausea, no abdominal pain. Recently, over the last few days, she has some diarrhea and nausea, but that has improved. No black stools, no hematuria, no burning micturition. She always has some swelling in the legs. No rash. ALLERGIES: SALICYLATE, SULFA ANTIBIOTICS. PAST MEDICAL HISTORY: As mentioned above. PAST SURGICAL HISTORY: Colonoscopy, lumbar spine injection, ligation of oviduct, partial removal of colon, appendectomy, cataract surgeries, cholecystectomy, tonsillectomy, sacroiliac joint injection, total hysterectomy. MEDICATIONS: The patient is on gabapentin 200 mg p.o. t.i.d., hydrocodone/acetaminophen 5/325 mg 1 tablet every 4 hours p.r.n., Coreg 12.5 mg p.o. b.i.d., Fosamax 70 mg p.o. weekly, Lipitor 20 mg p.o. daily, Coumadin 2.5 mg on Mondays and Fridays and 5 mg on all other days or as directed by Coumadin clinic, Protonix 40 mg p.o. daily, amitriptyline 25 mg p.o. at bedtime, levothyroxine 25 mcg p.o. daily, sumatriptan 100 mg p.o. prior to onset of migraines, Tylenol 650 mg p.o. at bedtime, albuterol HFA 2 puffs every 4 hours p.r.n., Singulair 10 mg p.o. daily, Cymbalta 30 mg p.o. daily, lisinopril 5 mg p.o. daily, albuterol nebulization every 4 hours p.r.n., Advair Diskus one inhalation b.i.d., Benadryl 25 mg for allergies, vitamin D 1000 units p.o. daily, oxygen 2 liters while sleeping. FAMILY HISTORY: Significant for: Mother had arthritis, skin cancer, stroke. Aunt has breast cancer. SOCIAL HISTORY: . No smoking. Alcohol rare. No drug use. REVIEW OF SYMPTOMS: As per HPI. Rest of review of systems is negative. PHYSICAL EXAMINATION: GENERAL: The patient is obese, not in acute distress. VITAL SIGNS: Temperature 36.5, pulse 70, respiratory rate 18, blood pressure 157/90, oxygen 98% on room air. HEENT: No pallor, no icterus. Pupils equal, round, reactive to light. NECK: No JVD, no neck masses, no carotid bruits. CARDIOVASCULAR: S1, S2 heard, regular rate and rhythm, no murmur, no gallop. RESPIRATORY SYSTEM: Normal AP diameter. No accessory muscle use. No wheezing, no crackles. ABDOMEN: Soft, bowel sounds present. Has moderate left upper quadrant tenderness. No guarding, no rigidity, no rebound tenderness. CENTRAL NERVOUS SYSTEM: Alert and awake. Moves extremities. No pronator drift. [id number] test normal. Coordination of movements normal. Heel to estrada test normal. EXTREMITIES: No edema, no erythema. LABORATORY DATA: WBC 3.4, hemoglobin 12, hematocrit 35.7, platelets 231. PT 23.2, INR was 5.9, APTT 43.6. Sodium 137, potassium 3.5, chloride 104, bicarbonate 22, BUN 17, creatinine 1.2. Serum glucose 131, calcium 9.5. CT of the head unofficial report unremarkable. ASSESSMENT AND PLAN: This is a 79-year-old female with history of migraines, presents with intractable headache. 1. Intractable headache, history of migraines. Generally, the migraines specifically on the left side. Today, she has pain on the right side. The patient received dexamethasone, Phenergan and morphine, Dilaudid, and magnesium and also Benadryl in the ER, still has significant pain. The patient was starting on IV Depakote. CT of the head is unremarkable. We will follow the official report. We will continue with IV Dilaudid p.r.n. and monitor on medical floor. If it is not getting better, we will get a MRI and neuro consult. For now, we will monitor. 2. Elevated INR, has INR of 5.9. Got a dose of p.o. vitamin K 5 mg in the ER. We will follow the INR in a.m. and adjust Coumadin dose. 3. History of pulmonary embolism and deep venous thrombosis, history of prothrombin [id number] mutation, on Coumadin. We will follow the INR and adjust the Coumadin dose. 4. History of atrial fibrillation, on Coreg, rate is under control, on Coumadin. Follow the INR. 5. History of coronary artery disease, on Lipitor, Coreg and Coumadin. Currently, she has left-sided chest pain, but it is more like a tender kind of pain. We will get an EKG and troponin. 6. Hypothyroidism. Continue Synthroid. 7. Chronic kidney disease stage III, baseline creatinine around 1.2, presents with creatinine of 1.2. Follow the labs in a.m. 8. Hypertension. Continue Coreg, lisinopril. Monitor the blood pressure. 9. Prolonged QT. We will follow the EKG, avoid QT-prolonging drugs. 10. Nocturnal hypoxia.continue oxygen supplementation at nighttime. 11. Gastroesophageal reflux disease. Continue Protonix. 12. Generalized osteoarthrosis. Pain control. 13. Hyperlipidemia, on statin. 14. Asthma. Continue home inhalers and Singulair. 15. Deep venous thrombosis prophylaxis, on Coumadin.Follow INR 16. Disposition: Observe in medical floor. Level 1 full code. PT and OT prior to discharge. Social Service to help with discharge planning. Addendum: Troponin came back at 0.09. EKG t wave inversions in inferior and lateral leads. Patient pain is improving. INR is elevated. Allergic to aspirin. Monitor in med/tele. serial CE, Echo and cardio consult. BP high, added nitro past-if headaches worsens will d/c it. MTDD
[2019-07-22] MEDS ORDERED: ALENDRONATE SODIUM 70 MG TAB PO SCH (06:00)
[2019-07-22 06:49] LABS: Hematocrit (blood only) 35.2 % (37-47); Hemoglobin 11.5 g/dL (12.0-16.0); Lymphocytes # (auto) 0.46 K/uL (1.2-3.4); Lymphocytes % (auto) 9.4 %; Mean Corpuscular Hemoglobin 35.2 pg (25-34); Mean Corpuscular Hgb Conc 32.7 g/dL (32-36); Mean Corpuscular Volume 107.6 fL (80-100); Mean Platelet Volume 9.5 fL (7.4-10.4); Monocytes # (auto) 0.06 K/uL (0.11-0.59); Monocytes % (auto) 1.2 %; Neutrophils # (auto) 4.39 K/uL (1.4-6.5); Neutrophils % (auto) 89.4 %; Platelet Count 243 K/uL (130-400); RDW Coefficient of Variation 13.4 % (11.5-14.5); RDW Standard Deviation 52.9 fL (36.4-46.3); Red Blood Count 3.27 M/uL (4.2-5.4); White Blood Count 4.91 K/uL (4.8-10.8)
--- NOTE | 2019-07-22 07:06 | CT Scan Report ---
CT SCAN OF THE BRAIN WITHOUT IV CONTRAST CLINICAL HISTORY: Headache. COMPARISON STUDY: CT of the brain dated 04/12/2017. TECHNIQUE: Unenhanced axial CT scan of the brain is performed from the vertex to the skull base. A do se lowering technique was utilized adhering to the principles of ALARA. CT DOSE: 651.12 mGy.cm FINDINGS: Brain parenchyma: There are age-related involutional changes noting moderate subcortical and periven tricular microangiopathic change. There is no hemorrhage, mass effect, or evidence of acute territori al ischemia by CT criteria. Lilly-white matter differentiation is preserved. No extra-axial fluid brandon ection is seen. Ventricles, sulci, cisterns: Prominent secondary to involutional change. Intracranial vasculature: There is atherosclerotic calcification of the cavernous carotid arteries. Calvarium: Unremarkable. Sinuses and mastoids: The visualized paranasal sinuses are clear. The mastoid air cells are well pneu matized. Orbits: The bony orbits are grossly intact. IMPRESSION: There is no hemorrhage, mass effect, or evidence of acute territorial ischemia by CT devin garland. Electronically signed by: Vladislav Curiel M.D. 07/22/2019 7:04 AM
[2019-07-22 07:07] LABS: Prothrombin Time 57.1 Seconds (9.0-12.0)
[2019-07-22 07:20] LABS: BUN Creatinine Ratio 12.8 (10-20); Creatinine Clr Calc Pharmacy 39.8 ml/min; Est GFR (African American) 42.3; Est GFR (Non-African American) 36.5; Magnesium 2.1 mg/dl (1.8-2.4); Potassium 3.6 mmol/L (3.5-5.1)
[2019-07-22 07:22] LABS: INR 6.4 (0.9-1.1)
[2019-07-22] MEDS ORDERED: PHYTONADIONE 5 MG TAB PO ONE (07:45)
[2019-07-22] MEDS: FLUTICASONE/SALMETEROL 250/50 (ADVAIR) 14 PUFF/1 INHALER INH SCH ×2 (08:08→20:22)
[2019-07-22] MEDS: GABAPENTIN 100 MG CAP PO SCH ×3 (08:09→20:21)
[2019-07-22] MEDS: ATORVASTATIN 20 MG TAB PO SCH (08:09)
[2019-07-22] MEDS: carvediloL 12.5 MG TAB PO SCH ×2 (08:09→20:22)
[2019-07-22] MEDS: PANTOprazole 40 MG TAB PO SCH (08:09)
[2019-07-22] MEDS: lisinopriL 5 MG TAB PO SCH (08:10)
--- NOTE | 2019-07-22 09:55 | CT Scan Report ---
CT abd pelvis wo con CT DOSE: 1165.36 mGycm HISTORY: Pain luq abdominal pain TECHNIQUE: Multiaxial CT images of the abdomen and pelvis were performed without contrast. A dose lo wering technique was utilized adhering to the principles of ALARA. COMPARISON STUDY: 07/05/2013 FINDINGS: No significant change from the prior study. Lung bases are considered clear. Pancreatic atr ophy. Stable prominence of the common bile duct. Prior cholecystectomy. Peripherally calcified hypodense right renal cyst is again noted and is unchanged. Several small left renal parapelvic cysts also unchanged. No evidence for new or interval process. Bowel pattern is nonobstructive. IMPRESSION: 1. No acute process in the abdomen or pelvis. 2. Incidental findings as noted all unaltered from the prior exam. The above report was generated using voice recognition software. It may contain grammatical, syntax or spelling errors. Electronically signed by: Minh Callaway M.D. 07/22/2019 9:53 AM
--- NOTE | 2019-07-22 11:44 | Cardiology Consultation ---
Date of Consultation July 22, 2019 Assessment & Plan (1) Nausea and vomitin days of persistent nausea/vomiting/abdominal pain. CT of abdomen pending Symptoms resolved Likely contributing to elevated INR (2) Migraine: History of migraines. Possibly due to poor PO intake of nutrition over the last few days Head CT unremarkable (3) Elevated troponin: Minimally elevated Similar to presentation in 2018 where she underwent cardiac cath with only minimal luminal irregularities (10% stenosis within the LAD) No active chest pain this admission. she reports long history (years) of waxing/waning non exertional chest pain which is unchnaged. EKG similar to 2018 at time of cath. Echo with preserved LV systolic funciton without regional wall motion abnormalities. (4) CAD (coronary artery disease): Medical management recommended. continue home medications Case discussed with Dr. Barraza. Stable cardiac symptoms. Minimally elevated troponin likely in setting of acute GI illness. Not indicative of ACS. Normal echo without acute changes. No further cardiac testing warranted at this time. Supervising Physician Co-Signing Physician Notes Cardiology attending addendum: I personally performed a history and physical examination on Ms Breaux. Agree with findings, assessment, and plan as documented by Ning King PA-C with additions as noted below. Subjective: Patient feeling improved. She states her chief complaint was headache, with associated nauseousness. The headache was especially worse when lying flat. She denies any recent chest discomfort. Exam: Cardiovascular regular rhythm, no murmurs EKG performed 07/22/2019 at 3:07 AM revealed sinus rhythm at 77 bpm, left ventricular hypertrophy pattern, diffuse T wave inversions consistent with possible ischemia, which were new compared to February 2019. Mild troponin elevation noted with troponin I levels of 0.090, and 0.081 ng/ ml. Impression: Headache Recent nauseousness Plan: Her EKG performed overnight did reveal new T wave inversions, this could be due to underlying hypertension with noted mild concentric left ventricular hypertrophy on echocardiogram. She does not describe any symptoms of angina, and she underwent cardiac catheterization in September 2017 revealing at most a 10% stenosis at that time. At this time, I am going to order repeat EKG to ensure stability. In the absence of symptoms suggestive of angina, I do not think further cardiac testing will otherwise be necessary. She is on Coumadin due to her remote history of venous thromboembolic disease, her INR has been greater than 6, and she received a dose of vitamin K. For now I have discontinued her Coumadin. INR was likely elevated due to poor recent oral intake. CT of the abdomen and pelvis revealed no acute findings. We will advance her diet. History of Present Illness Reason for Consultation: Elevated troponin Requesting Physician: Dr. Washington Attending Physician: Dr. 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 In 2018 patient presented to [facility] with complaints of chest pain, found to have minimally elevated cardiac enzymes with abnormal EKG. She subsequently was sent for diagnostic cardiac catheterization which demonstrated luminal mild irregularities with 10% distal LAD stenosis. Medical management recommended. Patient has had similar waxing waning chest pain over several years unchanged. She is on chronic Coumadin due to history of pulmonary embolus. Her chart reports she has a history of atrial fibrillation/flutter however per extensive review of her chart history as inpatient and outpatient records, and after discussing with the patient, this is incorrect. She has no known history of a trial fibrillation. Patient presented to the [facility] emergency department after 4 days of persistent nausea vomiting and diarrhea. She has been unable to eat with mild diffuse abdominal pain. She developed significant migraine last evening which prompted to get evaluated. She has a history of migraines several times per month. On arrival INR was elevated likely due to lack of p.o. intake over the last few days. Due to migraine, she underwent head CT which was unremarkable. She was treated with vitamin K. She was found to have minimally elevated troponin. EKG demonstrated T wave inversions in inferior and lateral leads. Cardiology was consulted. During review of systems patient happened to mention intermittent chest pain occurring primarily at rest. She reports this is unchanged over the last several years and similar to her prior complaints when she underwent catheterization in 2018. At time of consult, her abdominal pain has improved. No recurrent nausea vomiting or diarrhea this morning. No recent chest pain. She still has a mild frontal headache. No orthopnea, PND, lower extremity edema. No dizziness, syncope or near syncope. No sense of palpitations. Allergies Allergy/AdvReac Type Severity Reaction Status Date / Time aspirin Allergy Unknown Unknown Verified 07/22/19 00:20 Sulfa (Sulfonamide Allergy Unknown Unknown Verified 07/22/19 00:20 Antibiotics) Home Medications Home Medications Medication Instructions Recorded Confirmed Type Blue Emu 1 applic TOPICAL [id number] 11/10/18 07/22/19 History acetaminophen [Tylenol] 650 mg PO QID PRN 11/10/18 07/22/19 History albuterol sulfate [Ventolin HFA] 2 puff INHALATION QID PRN 11/10/18 07/22/19 History alendronate 70 mg PO WK 11/10/18 07/22/19 History amitriptyline 25 mg PO HS 11/10/18 07/22/19 History carvedilol 12.5 mg PO BID 11/10/18 07/22/19 History cholecalciferol (vitamin D3) 5,000 unit PO HS 11/10/18 07/22/19 History [Vitamin D3] gabapentin 200 mg PO TID 11/10/18 07/22/19 History hydrocodone-acetaminophen 1 - 2 tab PO UD PRN 11/10/18 07/22/19 History levothyroxine 25 mcg PO HS 11/10/18 07/22/19 History lisinopril 5 mg PO QAM 11/10/18 07/22/19 History montelukast 10 mg PO HS 11/10/18 07/22/19 History sumatriptan succinate 100 mg PO UD PRN 11/10/18 07/22/19 History warfarin [Jantoven] See Rx Instructions .ROUTE .COMPLEX 11/10/18 07/22/19 History duloxetine 30 mg PO HS 02/28/19 07/22/19 History fluticasone propion-salmeterol 1 inh INHALATION BID 03/03/19 07/22/19 History [Advair Diskus] Lipitor 20 mg PO DAILY 07/22/19 07/22/19 History pantoprazole 40 mg PO DAILY 07/22/19 07/22/19 History Patient History Medical History Acute hypoxemic respiratory failure (Acute) Asthma Asthma with exacerbation (Acute) Atrial flutter Hypertension (Acute) Hypothyroidism Pneumonia (Acute) Pulmonary embolism (Chronic 10/10/12) Symptomatic anemia Family History Other Family history non-contributory Social History Preferred Language: [place] Communication Ability: Effective Visual Impairment: No Limitations Hearing Ability: Normal Loom Mechanic Required: No Beliefs That Will Affect Care: None marital status: Current Living Situation: Spouse current occupational status: retired Feels Safe at Home: Yes Smoking Status: Never smoker Second Hand Exposure: Yes ( smokes in the home) ; Hx Alcohol Use: Yes Hx Substance Use: No Review of Systems Review of Systems: All systems reviewed & are unremarkable except as noted in HPI & below Physical Exam Constitutional: WD/WN, vitals as above + obese Neck: normal visual inspection Respiratory: normal respiratory effort, lungs clear to auscultation Cardiovascular: Rate/Rhythm: regular rate and regular rhythm Heart Sounds: normal S1, normal S2 and + murmur (II/ systolic murmur LSB) Vessels: no JVD Extremities: no edema Gastrointestinal (Abdomen): normal bowel sounds, soft, nontender, no hepatosplenomegaly Musculoskeletal: no cyanosis or clubbing, extremities motor strength 5/5 Neurologic: PERRL, EOMI, accommodation nl, no face palsy, no dysarthria Psychiatric: A+Ox3, euthymic affect Results & Data Vital Signs (Past 12 Hours) Vital Signs Temp Pulse Pulse Resp BP BP Pulse Ox 07/22/19 11:20 36.7 C 84 20 120/68 94 07/22/19 08:00 90 07/22/19 07:20 36.6 C 83 20 154/76 H 96 07/22/19 04:18 36.7 C 81 20 151/75 H 99 07/22/19 02:30 36.4 C L 92 H 20 168/78 H 92 07/22/19 02:21 70 18 171/82 H 99 07/22/19 01:20 78 18 157/90 H 98 Laboratory Results 07/22/19 07/22/19 07/22/19 Range/Units 06:38 06:38 06:38 WBC (4.8-10.8) K/uL RBC (4.2-5.4) M/uL Hgb (12.0-16.0) g/dL Hct (37-47) % MCV (80-100) fL MCH (25-34) pg MCHC (32-36) g/dL RDW Std Deviation (36.4-46.3) fL RDW Coeff of Vijay (11.5-14.5) % Plt Count (130-400) K/uL MPV (7.4-10.4) fL Immature Gran % (Auto) % Neut % (Auto) % Lymph % (Auto) % [place] % (Auto) % Eos % (Auto) % Baso % (Auto) % Immature Gran # (Auto) (0.00-0.02) K/uL Neut # (Auto) (1.4-6.5) K/uL Lymph # (Auto) (1.2-3.4) K/uL [place] # (Auto) (0.11-0.59) K/uL Eos # (Auto) (0-0.5) K/uL Baso # (Auto) (0-0.2) K/uL ESR 76 H (0-21) mm/hr PT 57.1 H (9.0-12.0) Seconds INR 6.4 H* (0.9-1.1) APTT (21.0-31.0) Seconds PTT Ratio Sodium 137 (136-145) mmol/L Potassium 3.6 (3.5-5.1) mmol/L Chloride 105 (98-107) mmol/L Carbon Dioxide 23 (21-32) mmol/L Anion Gap 9.0 (3-11) BUN 18 (7-18) mg/dl Creatinine 1.39 H (0.6-1.2) mg/dl Est Cr Clr Drug Dosing 39.8 Est GFR ( Amer) 42.3 Est GFR (Non-Af Amer) 36.5 BUN/Creatinine Ratio 12.8 (10-20) Glucose 128 H (70-99) mg/dl Calcium 9.0 (8.5-10.1) mg/dl Magnesium 2.1 (1.8-2.4) mg/dl Troponin I (0-0.045) ng/ml 07/22/19 07/22/19 07/21/19 Range/Units 06:38 06:38 23:48 WBC 4.91 3.48 L (4.8-10.8) K/uL RBC 3.27 L 3.35 L (4.2-5.4) M/uL Hgb 11.5 L 12.0 (12.0-16.0) g/dL Hct 35.2 L 35.7 L (37-47) % MCV 107.6 H 106.6 H (80-100) fL MCH 35.2 H 35.8 H (25-34) pg MCHC 32.7 33.6 (32-36) g/dL RDW Std Deviation 52.9 H 52.1 H (36.4-46.3) fL RDW Coeff of Vijay 13.4 13.4 (11.5-14.5) % Plt Count 243 231 (130-400) K/uL MPV 9.5 9.8 (7.4-10.4) fL Immature Gran % (Auto) 0.0 0.0 % Neut % (Auto) 89.4 88.8 % Lymph % (Auto) 9.4 10.6 % [place] % (Auto) 1.2 0.6 % Eos % (Auto) 0.0 0.0 % Baso % (Auto) 0.0 0.0 % Immature Gran # (Auto) 0.00 0.00 (0.00-0.02) K/uL Neut # (Auto) 4.39 3.09 (1.4-6.5) K/uL Lymph # (Auto) 0.46 L 0.37 L (1.2-3.4) K/uL [place] # (Auto) 0.06 L 0.02 L (0.11-0.59) K/uL Eos # (Auto) 0.00 0.00 (0-0.5) K/uL Baso # (Auto) 0.00 0.00 (0-0.2) K/uL ESR (0-21) mm/hr PT (9.0-12.0) Seconds INR (0.9-1.1) APTT (21.0-31.0) Seconds PTT Ratio Sodium (136-145) mmol/L Potassium (3.5-5.1) mmol/L Chloride (98-107) mmol/L Carbon Dioxide (21-32) mmol/L Anion Gap (3-11) BUN (7-18) mg/dl Creatinine (0.6-1.2) mg/dl Est Cr Clr Drug Dosing Est GFR ( Amer) Est GFR (Non-Af Amer) BUN/Creatinine Ratio (10-20) Glucose (70-99) mg/dl Calcium (8.5-10.1) mg/dl Magnesium (1.8-2.4) mg/dl Troponin I 0.081 H* (0-0.045) ng/ml 07/21/19 07/21/19 Range/Units 23:48 23:48 WBC (4.8-10.8) K/uL RBC (4.2-5.4) M/uL Hgb (12.0-16.0) g/dL Hct (37-47) % MCV (80-100) fL MCH (25-34) pg MCHC (32-36) g/dL RDW Std Deviation (36.4-46.3) fL RDW Coeff of Vijay (11.5-14.5) % Plt Count (130-400) K/uL MPV (7.4-10.4) fL Immature Gran % (Auto) % Neut % (Auto) % Lymph % (Auto) % [place] % (Auto) % Eos % (Auto) % Baso % (Auto) % Immature Gran # (Auto) (0.00-0.02) K/uL Neut # (Auto) (1.4-6.5) K/uL Lymph # (Auto) (1.2-3.4) K/uL [place] # (Auto) (0.11-0.59) K/uL Eos # (Auto) (0-0.5) K/uL Baso # (Auto) (0-0.2) K/uL ESR (0-21) mm/hr PT 53.2 H (9.0-12.0) Seconds INR 5.9 H* (0.9-1.1) APTT 43.3 H (21.0-31.0) Seconds PTT Ratio 1.6 Sodium 137 (136-145) mmol/L Potassium 3.5 (3.5-5.1) mmol/L Chloride 104 (98-107) mmol/L Carbon Dioxide 22 (21-32) mmol/L Anion Gap 11.0 (3-11) BUN 17 (7-18) mg/dl Creatinine 1.23 H (0.6-1.2) mg/dl Est Cr Clr Drug Dosing Not Reportable Est GFR ( Amer) 49.0 Est GFR (Non-Af Amer) 42.3 BUN/Creatinine Ratio 13.9 (10-20) Glucose 131 H (70-99) mg/dl Calcium 9.5 (8.5-10.1) mg/dl Magnesium (1.8-2.4) mg/dl Troponin I 0.090 H* (0-0.045) ng/ml Diagnostic Findings 2D echocardiogram report reviewed completed earlier today: Mild concentric LVH. No regional wall mentation abnormalities noted. Preserved LV systolic function with ejection fraction of 50 to 55%. Severe mitral annular calcification without mitral regurgitation or mitral stenosis. Aortic valve sclerosis mild without aortic valvular stenosis. Compared to prior study in September 2017 there is been no significant change. Telemetry reviewed: Normal sinus rhythm in the 70s and 80s. No significant arrhythmias. EKG on arrival demonstrated normal sinus rhythm with T wave inversions in inferior and lateral leads. This was new compared to February 2019, however when compared with prior EKG in 2018 at time of cardiac cath, this is unchanged. Medications Administered Current Inpatient Medications Acetaminophen (Tylenol) 650 mg PO Q4H PRN PRN Reason: pain/fever Stop: 08/21/19 02:47 Hydrocodone Bitart/Acetaminophen ([place] 5/325) 1 tab PO Q6H PRN PRN Reason: Pain Stop: 08/05/19 03:17 Albuterol (Ventolin Hfa) 2 puffs INH QID PRN PRN Reason: Shortness Of Breath Or Wheezin Stop: 08/21/19 02:47 Alendronate Sodium (Fosamax) 70 mg PO We@0600 [facility] Stop: 08/21/19 05:59 Last Admin: 07/22/19 06:19 Dose: 70 mg Documented by: Amitriptyline HCl (Elavil) 25 mg PO [facility] Stop: 08/21/19 20:59 Atorvastatin Calcium (Lipitor) 20 mg PO DAILY [facility] Stop: 08/21/19 08:59 Last Admin: 07/22/19 08:09 Dose: 20 mg Documented by: Carvedilol (Coreg) 12.5 mg PO BID [facility] Stop: 08/21/19 08:59 Last Admin: 07/22/19 08:09 Dose: 12.5 mg Documented by: Duloxetine HCl (Cymbalta) 30 mg PO [facility] Stop: 08/21/19 20:59 Gabapentin (Neurontin) 200 mg PO TID [facility] Stop: 08/21/19 08:59 Last Admin: 07/22/19 08:09 Dose: 200 mg Documented by: Hydromorphone HCl (Dilaudid) 0.5 mg IV Q3H PRN PRN Reason: Pain Stop: 08/05/19 02:47 Promethazine HCl 12.5 mg/ (Sodium Chloride) 50.5 mls @ 202 mls/hr IV Q6H PRN PRN Reason: Nausea And Vomiting Stop: 08/21/19 02:47 Levothyroxine Sodium (Synthroid) 25 mcg PO HS [facility] Stop: 08/21/19 20:59 Lisinopril (Zestril) 5 mg PO QAM [facility] Stop: 08/21/19 08:59 Last Admin: 07/22/19 08:10 Dose: 5 mg Documented by: Montelukast Sodium (Singulair) 10 mg PO HS [facility] Stop: 08/21/19 20:59 Nitroglycerin (Nitro-Bid 2%) 0.5 inch EXT Q6H [facility] Stop: 08/21/19 03:29 Last Admin: 07/22/19 09:58 Dose: 0.5 inch Documented by: Pantoprazole Sodium (Protonix) 40 mg PO DAILY [facility] Stop: 08/21/19 08:59 Last Admin: 07/22/19 08:09 Dose: 40 mg Documented by: Fluticasone/Salmeterol (Advair Diskus 250/50) 1 puffs INH BID [facility] Stop: 08/21/19 08:59 Last Admin: 07/22/19 08:08 Dose: 1 puffs Documented by: Sumatriptan Succinate (Imitrex) 100 mg PO UD PRN PRN Reason: Migraine Headache Stop: 08/21/19 02:47 Vitamin D (Vitamin D3) 5,000 units PO HS [facility] Stop: 08/21/19 20:59 Warfarin Sodium (Coumadin) 5 mg PO MoFr@1600 [facility] Stop: 08/23/19 15:59 Warfarin Sodium (Coumadin) 2.5 mg PO SuTuWeThSa@1600 [facility] Stop: 08/21/19 15:59 (1) Migraine Intractability: intractable Migraine type: unspecified Status migrainosus presence: without status migrainosus Qualified Code(s): G43.919 - Migraine, unspecified, intractable, without status migrainosus
--- NOTE | 2019-07-22 15:19 | Communication Note ---
Date of Service: July 22, 2019 Repeat EKG reviewed: Normal sinus rhythm at 77 bpm, Left ventricular hypertrophy with QRS widening and repolarization abnormality. When compared with ECG of 22-JUL-2019 03:07, ST elevation now present in Anterior leads. Ongoing inferior , lateral T wave inversion noted. I reassessed pt at the bedside. She feels well with no chest pain, no shortness of breath, no nausea, no headache. Recommend ongoing observation overnight tonight.
[2019-07-22] MEDS ORDERED: WARFARIN SOD 2.5 MG TAB PO SCH (16:00)
[2019-07-22] MEDS: MONTELUKAST SODIUM 10 MG TABLET PO SCH (20:21)
[2019-07-22] MEDS: AMITRIPTYLINE HCL 25 MG TAB PO SCH (20:21)
[2019-07-22] MEDS: CHOLECALCIFEROL 1,000 UNITS TAB PO SCH (20:23)
[2019-07-22] MEDS: LEVOTHYROXINE SODIUM 25 MCG TABLET PO SCH (20:23)
[2019-07-22] MEDS: DULOXETINE HCL 30 MG CAP PO SCH (20:23)
--- NOTE | 2019-07-22 21:57 | Hospitalist Progress Note ---
Date of Service July 22, 2019 Subjective Patient seen and examined at the bedside, patient's headache has resolved, she says it is better when she lays in certain position in bed. She says that she often gets headaches which have been manageable better with different positioning. She also says that she ran out of Imitrex and was supposed to see her PCP for that. Overnight she had a chest pain, with some concerning T wave inversions on EKG, troponin was mildly elevated and cardiology was consulted by the night physician. Her INR is supratherapeutic and she received vitamin K. Her INR is increased over 6 today as well. Her chest pain has resolved, however she also has been receiving Nitropaste. Patient is to undergo echocardiogram in the morning. Will discuss further plan with cardiology. Results & Data Vital Signs (Past 12 Hours) Vital Signs Temp Pulse Pulse Resp BP Pulse Ox 07/22/19 16:00 82 07/22/19 15:19 36.4 C L 92 H 18 125/71 96 07/22/19 11:20 36.7 C 84 20 120/68 94
[2019-07-23] MEDS: NITROGLYCERIN 2% OINTMENT 30GM TUBE EXT SCH (03:50)
[2019-07-23] MEDS: SUMAtriptan succinate 100 MG TAB PO PRN ×2 (06:07→22:35)
[2019-07-23 06:34] LABS: Hematocrit (blood only) 27.8 % (37-47); Hemoglobin 9.3 g/dL (12.0-16.0); Mean Corpuscular Hemoglobin 35.8 pg (25-34); Mean Corpuscular Hgb Conc 33.5 g/dL (32-36); Mean Corpuscular Volume 106.9 fL (80-100); Mean Platelet Volume 9.7 fL (7.4-10.4); Platelet Count 205 K/uL (130-400); RDW Coefficient of Variation 13.4 % (11.5-14.5); RDW Standard Deviation 52.6 fL (36.4-46.3); White Blood Count 8.36 K/uL (4.8-10.8)
[2019-07-23 06:41] LABS: INR 2.1 (0.9-1.1); Prothrombin Time 20.2 Seconds (9.0-12.0)
[2019-07-23 07:11] LABS: BUN Creatinine Ratio 19.4 (10-20); Calcium 8.8 mg/dl (8.5-10.1); Creatinine Clr Calc Pharmacy 35.4 ml/min; Est GFR (African American) 36.8; Est GFR (Non-African American) 31.7; Potassium 3.4 mmol/L (3.5-5.1)
[2019-07-23 07:19] LABS: Troponin I 0.052 ng/ml (0-0.045)
[2019-07-23] MEDS: FLUTICASONE/SALMETEROL 250/50 (ADVAIR) 14 PUFF/1 INHALER INH SCH ×2 (08:00→20:07)
[2019-07-23] MEDS: carvediloL 12.5 MG TAB PO SCH ×2 (08:00→20:08)
[2019-07-23] MEDS: ATORVASTATIN 20 MG TAB PO SCH (08:00)
[2019-07-23] MEDS: PANTOprazole 40 MG TAB PO SCH (08:00)
[2019-07-23] MEDS: GABAPENTIN 100 MG CAP PO SCH ×3 (08:00→20:07)
--- NOTE | 2019-07-23 09:17 | Cardiology Progress Note ---
Date of Service July 23, 2019 Assessment & Plan (1) Nausea and vomitin days of persistent nausea/vomiting/abdominal pain. Symptoms improving. CT of abdomen without acute process Hbg dropped from 11.5 to 9.3 overnight. No evidence of acute GI bleed. However with supratherapeutic INR on admission, monitor closely. Coumadin on hold for now. INR 2.1 this morning (2) Migraine: History of migraines. Possibly due to poor PO intake of nutrition over the last few days Head CT unremarkable D/C nitro paste (3) Elevated troponin: Minimally elevated Similar to presentation in 2018 where she underwent cardiac cath with only minimal luminal irregularities (10% stenosis within the LAD) No anginal symptoms. She reports long history (years) of waxing/waning non exertional chest pain which is unchnaged. She had new T wave inversions on EKG. Preserved LV systolic function on echo without wall motion abnormalities and no angina. Given recent cardiac cath without obstructive disease, likely not indicative of acute ACS (4) CAD (coronary artery disease): Medical management recommended. continue home medications Case discussed with Dr. Barraza. D/C nitro paste given her ongoing headache. Recheck BP after AM medications. Monitor anemia. Supervising Physician Co-Signing Physician Notes Cardiology Attending Addendum: Patient seen and examined. I agree with the findings, assessment, and plan as outlined by Maurice King PA-C with additions as noted below. S: GARCIA improved after removal of nitro past. No nausea. No chest pain. Exam: CV: reg rhythm, no edema Pulm: CTAB Impression: Transient headache, poor oral intake, improve. coagulopathy, likely due to poor oral intake, INR 6.4--> 2.1 after receiving vitamin K. Hgb 9.3, down from 11.5, however similar to 01/2019, no RP bleeding on CT A/P Plan: Resume coumadin if ok with primary service. Although EKG changes noted, presentation is not suggestive of ACS, negative cath 2018. OK from cardio perspective for discharge. Subjective Patient reports her headache has returned this morning but improved from admission. She denies symptoms of acute chest pain or increased SOB. Denies dizziness, palpitations. No orthopnea, PND or edema. Review of Systems Review of Systems: All systems reviewed & are unremarkable except as noted in HPI & below Physical Exam Constitutional: WD/WN, vitals as above + obese Neck: normal visual inspection Respiratory: normal respiratory effort, lungs clear to auscultation Cardiovascular: Rate/Rhythm: regular rate and regular rhythm Heart Sounds: normal S1, normal S2 and + murmur (II/ systolic murmur LSB) Vessels: no JVD Extremities: no edema Gastrointestinal (Abdomen): normal bowel sounds, soft, nontender, no hepatosplenomegaly Musculoskeletal: no cyanosis or clubbing, extremities motor strength 5/5 Neurologic: PERRL, EOMI, accommodation nl, no face palsy, no dysarthria Psychiatric: A+Ox3, euthymic affect Results & Data Vital Signs (Past 12 Hours) Vital Signs Temp Pulse Pulse Resp BP Pulse Ox 07/23/19 07:57 37.0 C 77 20 152/81 H 92 07/23/19 05:05 130/51 L 07/23/19 04:00 36.4 C L 86 18 182/100 H 94 07/23/19 00:51 71 07/22/19 22:59 36.8 C 81 18 149/77 H 91 Laboratory Results Current Inpatient Medications Acetaminophen (Tylenol) 650 mg PO Q4H PRN PRN Reason: pain/fever Stop: 08/21/19 02:47 Hydrocodone Bitart/Acetaminophen ([place] 5/325) 1 tab PO Q6H PRN PRN Reason: Pain Stop: 08/05/19 03:17 Albuterol (Ventolin Hfa) 2 puffs INH QID PRN PRN Reason: Shortness Of Breath Or Wheezin Stop: 08/21/19 02:47 Alendronate Sodium (Fosamax) 70 mg PO We@0600 [facility] Stop: 08/21/19 05:59 Last Admin: 07/22/19 06:19 Dose: 70 mg Documented by: Amitriptyline HCl (Elavil) 25 mg PO HS [facility] Stop: 08/21/19 20:59 Last Admin: 07/22/19 20:21 Dose: 25 mg Documented by: Atorvastatin Calcium (Lipitor) 20 mg PO DAILY [facility] Stop: 08/21/19 08:59 Last Admin: 07/23/19 08:00 Dose: 20 mg Documented by: Carvedilol (Coreg) 12.5 mg PO BID [facility] Stop: 08/21/19 08:59 Last Admin: 07/23/19 08:00 Dose: 12.5 mg Documented by: Duloxetine HCl (Cymbalta) 30 mg PO [facility] Stop: 08/21/19 20:59 Last Admin: 07/22/19 20:23 Dose: 30 mg Documented by: Gabapentin (Neurontin) 200 mg PO TID [facility] Stop: 08/21/19 08:59 Last Admin: 07/23/19 08:00 Dose: 200 mg Documented by: Hydromorphone HCl (Dilaudid) 0.5 mg IV Q3H PRN PRN Reason: Pain Stop: 08/05/19 02:47 Promethazine HCl 12.5 mg/ (Sodium Chloride) 50.5 mls @ 202 mls/hr IV Q6H PRN PRN Reason: Nausea And Vomiting Stop: 08/21/19 02:47 Levothyroxine Sodium (Synthroid) 25 mcg PO [facility] Stop: 08/21/19 20:59 Last Admin: 07/22/19 20:23 Dose: 25 mcg Documented by: Lisinopril (Zestril) 5 mg PO QAM [facility] Stop: 08/21/19 08:59 Last Admin: 07/22/19 08:10 Dose: 5 mg Documented by: Montelukast Sodium (Singulair) 10 mg PO [facility] Stop: 08/21/19 20:59 Last Admin: 07/22/19 20:21 Dose: 10 mg Documented by: Pantoprazole Sodium (Protonix) 40 mg PO DAILY [facility] Stop: 08/21/19 08:59 Last Admin: 07/23/19 08:00 Dose: 40 mg Documented by: Fluticasone/Salmeterol (Advair Diskus 250/50) 1 puffs INH BID [facility] Stop: 08/21/19 08:59 Last Admin: 07/23/19 08:00 Dose: 1 puffs Documented by: Sumatriptan Succinate (Imitrex) 100 mg PO UD PRN PRN Reason: Migraine Headache Stop: 08/21/19 02:47 Last Admin: 07/23/19 06:07 Dose: 100 mg Documented by: Vitamin D (Vitamin D3) 5,000 units PO [facility] Stop: 08/21/19 20:59 Last Admin: 07/22/19 20:23 Dose: 5,000 units Documented by: Diagnostic Findings Abd CT IMPRESSION: 1. No acute process in the abdomen or pelvis. 2. Incidental findings as noted all unaltered from the prior exam. Medications Administered Current Inpatient Medications Acetaminophen (Tylenol) 650 mg PO Q4H PRN PRN Reason: pain/fever Stop: 08/21/19 02:47 Hydrocodone Bitart/Acetaminophen ([place] 5/325) 1 tab PO Q6H PRN PRN Reason: Pain Stop: 08/05/19 03:17 Albuterol (Ventolin Hfa) 2 puffs INH QID PRN PRN Reason: Shortness Of Breath Or Wheezin Stop: 08/21/19 02:47 Alendronate Sodium (Fosamax) 70 mg PO We@0600 [facility] Stop: 08/21/19 05:59 Last Admin: 07/22/19 06:19 Dose: 70 mg Documented by: Amitriptyline HCl (Elavil) 25 mg PO [facility] Stop: 08/21/19 20:59 Last Admin: 07/22/19 20:21 Dose: 25 mg Documented by: Atorvastatin Calcium (Lipitor) 20 mg PO DAILY [facility] Stop: 08/21/19 08:59 Last Admin: 07/23/19 08:00 Dose: 20 mg Documented by: Carvedilol (Coreg) 12.5 mg PO BID [facility] Stop: 08/21/19 08:59 Last Admin: 07/23/19 08:00 Dose: 12.5 mg Documented by: Duloxetine HCl (Cymbalta) 30 mg PO [facility] Stop: 08/21/19 20:59 Last Admin: 07/22/19 20:23 Dose: 30 mg Documented by: Gabapentin (Neurontin) 200 mg PO TID [facility] Stop: 08/21/19 08:59 Last Admin: 07/23/19 08:00 Dose: 200 mg Documented by: Hydromorphone HCl (Dilaudid) 0.5 mg IV Q3H PRN PRN Reason: Pain Stop: 08/05/19 02:47 Promethazine HCl 12.5 mg/ (Sodium Chloride) 50.5 mls @ 202 mls/hr IV Q6H PRN PRN Reason: Nausea And Vomiting Stop: 08/21/19 02:47 Levothyroxine Sodium (Synthroid) 25 mcg PO [facility] Stop: 08/21/19 20:59 Last Admin: 07/22/19 20:23 Dose: 25 mcg Documented by: Lisinopril (Zestril) 5 mg PO QAM [facility] Stop: 08/21/19 08:59 Last Admin: 07/22/19 08:10 Dose: 5 mg Documented by: Montelukast Sodium (Singulair) 10 mg PO [facility] Stop: 08/21/19 20:59 Last Admin: 07/22/19 20:21 Dose: 10 mg Documented by: Pantoprazole Sodium (Protonix) 40 mg PO DAILY [facility] Stop: 08/21/19 08:59 Last Admin: 07/23/19 08:00 Dose: 40 mg Documented by: Fluticasone/Salmeterol (Advair Diskus 250/50) 1 puffs INH BID [facility] Stop: 08/21/19 08:59 Last Admin: 07/23/19 08:00 Dose: 1 puffs Documented by: Sumatriptan Succinate (Imitrex) 100 mg PO UD PRN PRN Reason: Migraine Headache Stop: 08/21/19 02:47 Last Admin: 07/23/19 06:07 Dose: 100 mg Documented by: Vitamin D (Vitamin D3) 5,000 units PO [facility] Stop: 08/21/19 20:59 Last Admin: 07/22/19 20:23 Dose: 5,000 units Documented by: (1) Migraine Intractability: intractable Migraine type: unspecified Status migrainosus presence: without status migrainosus Qualified Code(s): G43.919 - Migraine, unspecified, intractable, without status migrainosus
[2019-07-23] MEDS: lisinopriL 5 MG TAB PO SCH (09:34)
[2019-07-23] MEDS ORDERED: POTASSIUM CHLORIDE 20 MEQ TABCR PO STA (09:36)
[2019-07-23 12:13] LABS: Hematocrit (blood only) 32.7 % (37-47); Hemoglobin 10.9 g/dL (12.0-16.0)
--- NOTE | 2019-07-23 14:47 | Neurology Consultation ---
Date of Consultation July 23, 2019 Assessment & Plan (1) Migraine: 1. if temporal arteritis is suspect biopsy should be scheduled and prednisone should be started 2. no current headache but does have some tenderness with palpation of right temporal area. 3. would not use imitrex in a person of this age and cardiac issues 4. carotid doppler for blurred double vision 5. MRI brain with and without to r/o lesion abnormalities 6. further recommendation once imaging is completed. (2) Nausea and vomitin. currently resolved Supervising Physician Co-Signing Physician Notes I have seen and discussed above patient with Dr America Álvarez, neurology. Pt seen and examined. Viral syn about 10 d ago with R sided throbbing headache starting approx 1 weeks ago.. Pt has migraine but those naranjo were on right and they were never right sided. Some associated blurred vision. No jaw claudcation, mild wt loss. No vertigo or post circ ischemic sx.Ct head unremarkable, EST elevated. Exam notable for mild diffuse R temp tenderness. othwise CN motor sensory . Poss residual naranjo from viral syndrome. but worsening. Agree with TA biopsy, oral prednisone since sx persisent. REc MRI brain, carotid us bc visual sx,pt has hx of migraine 2x/month.Consider avoiding triptans in this pt that has CAD. Dr Oswald will follow with you. 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 Headache started at 5-6 pm at night which was pounding. She has a history of migraines for a long time and she takes pain pills and imitrex but this time it didn't help. Her usual migraine are in the left side of the head, this time it started in the right side of the head from the eye to the neck, severe in nature, 7/10 in severity, she also had some blurred vision. All of her symptoms have resolved. She had some left side CP and was seen by cardiology. Over the last few days, she has some diarrhea and nausea, but that has improved but she was not eating well since Thanks and was having one and off headaches and blurred vision. denies CP, SOB, abdominal pain, one sided weakness, numbness tingling, N, V. Allergies Allergy/AdvReac Type Severity Reaction Status Date / Time aspirin Allergy Unknown Unknown Verified 07/22/19 00:20 Sulfa (Sulfonamide Allergy Unknown Unknown Verified 07/22/19 00:20 Antibiotics) Home Medications Home Medications Medication Instructions Recorded Confirmed Type Blue Emu 1 applic TOPICAL [id number] 11/10/18 07/22/19 History acetaminophen [Tylenol] 650 mg PO QID PRN 11/10/18 07/22/19 History albuterol sulfate [Ventolin HFA] 2 puff INHALATION QID PRN 11/10/18 07/22/19 History alendronate 70 mg PO WK 11/10/18 07/22/19 History amitriptyline 25 mg PO HS 11/10/18 07/22/19 History carvedilol 12.5 mg PO BID 11/10/18 07/22/19 History cholecalciferol (vitamin D3) 5,000 unit PO HS 11/10/18 07/22/19 History [Vitamin D3] gabapentin 200 mg PO TID 11/10/18 07/22/19 History hydrocodone-acetaminophen 1 - 2 tab PO UD PRN 11/10/18 07/22/19 History levothyroxine 25 mcg PO HS 11/10/18 07/22/19 History lisinopril 5 mg PO QAM 11/10/18 07/22/19 History montelukast 10 mg PO HS 11/10/18 07/22/19 History sumatriptan succinate 100 mg PO UD PRN 11/10/18 07/22/19 History warfarin [Jantoven] See Rx Instructions .ROUTE .COMPLEX 11/10/18 07/22/19 History duloxetine 30 mg PO HS 02/28/19 07/22/19 History fluticasone propion-salmeterol 1 inh INHALATION BID 07/16/19 12/04/19 History [Advair Diskus] Lipitor 20 mg PO DAILY 07/22/19 07/22/19 History pantoprazole 40 mg PO DAILY 07/22/19 07/22/19 History Patient History Medical History Acute hypoxemic respiratory failure (Acute) Asthma Asthma with exacerbation (Acute) Atrial flutter Hypertension (Acute) Hypothyroidism Pneumonia (Acute) Pulmonary embolism (Chronic 10/10/12) Symptomatic anemia Family History Other Family history non-contributory Social History Preferred Language: Khmer Communication Ability: Effective Visual Impairment: No Limitations Hearing Ability: Normal Fire Inspector Required: No Beliefs That Will Affect Care: None marital status: Current Living Situation: Spouse current occupational status: retired Feels Safe at Home: Yes Smoking Status: Never smoker Second Hand Exposure: Yes ( smokes in the home) ; Hx Alcohol Use: Yes Hx Substance Use: No Physical Exam Physical Exam: Physical Exam: Constitutional: appearance over nourished, healthy Ears, Nose, Mouth and Throat: mucous membranes moist, no injection and skin normal, eyes normal Cardiovascular: normal S-1 and S-2 and regular rate and rhythm Respiratory: course breath sounds Musculoskeletal: no peripheral edema Skin: no stigmata of neurocutaneous disease noted and normal and intact Eyes: extraocular muscles intact (EOMI) and pupils equal, round and reactive to light (PERRL) NEUROLOGIC EXAMINATION: Mental status: Alert and interactive Oriented to full date and location Oriented to person Speech fluent with no evidence of aphasia Cranial Nerves smile eye brow raise symmetric Reflexes: Deep tendon reflexes were symmetrical and graded 2/5 UE, LE decreased, down going toes Sensory: no deficit to light cool vibration, mild discomfort with palpation of right temporal area Coordination: finger to nose no bi pass Gait/Stance: Posture sitting up in bed Motor: Negative for pronator drift of out stretched arms with eyes closed. Strength: biceps triceps hand market research coordinator 5/5 bilaterally, hip flex 4/5 bilaterally Results & Data Vital Signs (Past 12 Hours) Vital Signs Temp Pulse Pulse Resp BP Pulse Ox 07/23/19 09:00 74 07/23/19 07:57 37.0 C 77 20 152/81 H 92 07/23/19 05:05 130/51 L 07/23/19 04:00 36.4 C L 86 18 182/100 H 94 Laboratory Results Abnormal lab results 07/23/19 07/23/19 07/23/19 Range/Units 05:58 05:58 05:58 RBC 2.60 L (4.2-5.4) M/uL Hgb 9.3 L (12.0-16.0) g/dL Hct 27.8 L (37-47) % MCV 106.9 H (80-100) fL MCH 35.8 H (25-34) pg RDW Std Deviation 52.6 H (36.4-46.3) fL ESR (0-21) mm/hr PT 20.2 H (9.0-12.0) Seconds INR 2.1 H (0.9-1.1) Potassium 3.4 L (3.5-5.1) mmol/L BUN 30 H D (7-18) mg/dl Creatinine 1.56 H (0.6-1.2) mg/dl Glucose 124 H (70-99) mg/dl Troponin I 0.052 H* (0-0.045) ng/ml 07/23/19 07/23/19 Range/Units 11:58 11:58 RBC (4.2-5.4) M/uL Hgb 10.9 L (12.0-16.0) g/dL Hct 32.7 L (37-47) % MCV (80-100) fL MCH (25-34) pg RDW Std Deviation (36.4-46.3) fL ESR 39 H (0-21) mm/hr PT (9.0-12.0) Seconds INR (0.9-1.1) Potassium (3.5-5.1) mmol/L BUN (7-18) mg/dl Creatinine (0.6-1.2) mg/dl Glucose (70-99) mg/dl Troponin I (0-0.045) ng/ml Diagnostic Findings Abdominal/pelvis CT -No acute process in the abdomen or pelvis. CT head-There is no hemorrhage, mass effect, or evidence of acute territorial ischemia by CT criteria. TTE- 50-55% atrial septum in aneurysmal (1) Migraine Intractability: intractable Migraine type: unspecified Status migrainosus presence: without status migrainosus Qualified Code(s): G43.919 - Migraine, unspecified, intractable, without status migrainosus
[2019-07-23] MEDS ORDERED: predniSONE 20 MG TAB PO ONE (16:15)
[2019-07-23] MEDS: CHOLECALCIFEROL 1,000 UNITS TAB PO SCH (20:08)
[2019-07-23] MEDS: MONTELUKAST SODIUM 10 MG TABLET PO SCH (20:09)
[2019-07-23] MEDS: DULOXETINE HCL 30 MG CAP PO SCH (20:09)
[2019-07-23] MEDS: LEVOTHYROXINE SODIUM 25 MCG TABLET PO SCH (20:09)
[2019-07-23] MEDS: AMITRIPTYLINE HCL 25 MG TAB PO SCH (20:10)
--- NOTE | 2019-07-23 20:37 | Hospitalist Progress Note ---
Date of Service July 23, 2019 Assessment & Plan (1) Migraine: This is a 79-year-old female with history of migraines, presents with intractable headache. Intractable headache, history of migraines. Generally, the migraines specifically on the left side. Now pain on the right side. The patient received dexamethasone, Phenergan and morphine, Dilaudid, and magnesium and also Benadryl in the ER, still had significant pain. The patient was starting on IV Depakote. CT of the head is unremarkable. We will continue with IV Dilaudid p.r.n. and monitor on medical floor. Next morning headache much improved. Says that she ran out of Imitrex at home. However ESR elevated in 70s, and patient has tenderness to palpation in temporal area, concern for possible temporal arteritis. Neurology consulted General surgery consulted for biopsy. Give prednisone 40 mg. (2) Supratherapeutic INR: Elevated INR, 5.9 on admission. Got a dose of p.o. vitamin K 5 mg in the ER. INR over 6, next morning. Holding Coumadin. Current INR 2.1 -Continue to monitor History of pulmonary embolism and deep venous thrombosis, history of prothrombin [id number] mutation, on Coumadin. We will follow the INR and adjust the Coumadin dose. For now will hold Co umadin, poss. procedure/ biopsy tomorrow. Chronic kidney disease stage III, baseline creatinine around 1.2, presents with creatinine of 1.2. Follow the labs in a.m. Hypertension. Continue Coreg, lisinopril. Monitor the blood pressure. Prolonged QT. We will follow the EKG, avoid QT-prolonging drugs. Nocturnal hypoxia. - continue oxygen supplementation at nighttime. Gastroesophageal reflux disease Continue Protonix. (3) Elevated troponin: Cardiology consulted, EKG changes noted, presentation is not suggestive of ACS - seems as similar to presentation in 2018 where she underwent cardiac cath with only minimal luminal irregularities (10% stenosis within the LAD) - pt reports history (years) of waxing/waning non exertional chest pain which is unchanged - She had new T wave inversions on EKG. Preserved LV systolic function on echo without wall motion abnormalities and no angina. - Given recent cardiac cath without obstructive disease, likely not indicative of acute ACS - pt should keep her regular follow up appointment w/ cardiology Subjective Patient lying in bed, comfortable, in no acute distress. Denies any fevers, chills, shortness of breath, abdominal pain, nausea or vomiting. Her headache is now much improved, however persistent. Denies any more chest pains. INR 2.1 Review of Systems Review of Systems: All systems reviewed & are unremarkable except as noted in HPI & below Constitutional: no fever and no chills Respiratory: no cough and no dyspnea Cardiovascular: no chest pain and no palpitations Gastrointestinal: no abdominal pain, no nausea and no vomiting Physical Exam Physical Exam: GENERAL: obese female, in no acute distress, lying in bed HEENT: Normocephalic, atraumatic no pallor, no icterus. PERRL, EOMI NECK: No JVD, no neck masses, no carotid bruits. CARDIOVASCULAR: S1, S2 heard, regular rate and rhythm, no murmur, no gallop. RESPIRATORY SYSTEM: Normal AP diameter. No accessory muscle use. No wheezing, no crackles. ABDOMEN: Soft, bowel sounds present. nontender, No guarding, no rigidity, no rebound tenderness. NEURO: Alert and awake. Moves all 4 extremities. No pronator drift. [id number] test normal. Coordination of movements normal. Heel to estrada test normal. EXTREMITIES: moves all 4 extremities, warm, well perfused, no incr. LE edema Results & Data Vital Signs (Past 12 Hours) Vital Signs Temp Pulse Pulse Resp BP BP Pulse Ox 07/23/19 19:38 36.4 C 79 20 135/77 94 07/23/19 17:00 71 07/23/19 15:19 36.5 C 73 18 139/77 95 07/23/19 09:00 74 Laboratory Results 07/23/19 07/23/19 07/23/19 Range/Units 11:58 11:58 05:58 WBC (4.8-10.8) K/uL RBC (4.2-5.4) M/uL Hgb 10.9 L (12.0-16.0) g/dL Hct 32.7 L (37-47) % MCV (80-100) fL MCH (25-34) pg MCHC (32-36) g/dL RDW Std Deviation (36.4-46.3) fL RDW Coeff of Vijay (11.5-14.5) % Plt Count (130-400) K/uL MPV (7.4-10.4) fL ESR 39 H (0-21) mm/hr PT (9.0-12.0) Seconds INR (0.9-1.1) Sodium 136 (136-145) mmol/L Potassium 3.4 L (3.5-5.1) mmol/L Chloride 106 (98-107) mmol/L Carbon Dioxide 24 (21-32) mmol/L Anion Gap 6.0 (3-11) BUN 30 H D (7-18) mg/dl Creatinine 1.56 H (0.6-1.2) mg/dl Est Cr Clr Drug Dosing 35.4 ml/min Est GFR ( Amer) 36.8 Est GFR (Non-Af Amer) 31.7 BUN/Creatinine Ratio 19.4 (10-20) Glucose 124 H (70-99) mg/dl Calcium 8.8 (8.5-10.1) mg/dl Troponin I 0.052 H* (0-0.045) ng/ml 07/23/19 07/23/19 Range/Units 05:58 05:58 WBC 8.36 (4.8-10.8) K/uL RBC 2.60 L (4.2-5.4) M/uL Hgb 9.3 L (12.0-16.0) g/dL Hct 27.8 L (37-47) % MCV 106.9 H (80-100) fL MCH 35.8 H (25-34) pg MCHC 33.5 (32-36) g/dL RDW Std Deviation 52.6 H (36.4-46.3) fL RDW Coeff of Vijay 13.4 (11.5-14.5) % Plt Count 205 (130-400) K/uL MPV 9.7 (7.4-10.4) fL ESR (0-21) mm/hr PT 20.2 H (9.0-12.0) Seconds INR 2.1 H (0.9-1.1) Sodium (136-145) mmol/L Potassium (3.5-5.1) mmol/L Chloride (98-107) mmol/L Carbon Dioxide (21-32) mmol/L Anion Gap (3-11) BUN (7-18) mg/dl Creatinine (0.6-1.2) mg/dl Est Cr Clr Drug Dosing ml/min Est GFR ( Amer) Est GFR (Non-Af Amer) BUN/Creatinine Ratio (10-20) Glucose (70-99) mg/dl Calcium (8.5-10.1) mg/dl Troponin I (0-0.045) ng/ml Medications Administered Current Inpatient Medications Acetaminophen (Tylenol) 650 mg PO Q4H PRN PRN Reason: pain/fever Stop: 08/21/19 02:47 Hydrocodone Bitart/Acetaminophen (Conesus 5/325) 1 tab PO Q6H PRN PRN Reason: Pain Stop: 08/05/19 03:17 Last Admin: 07/23/19 16:46 Dose: 1 tab Documented by: Albuterol (Ventolin Hfa) 2 puffs INH QID PRN PRN Reason: Shortness Of Breath Or Wheezin Stop: 08/21/19 02:47 Alendronate Sodium (Fosamax) 70 mg PO We@0600 [facility] Stop: 08/21/19 05:59 Last Admin: 07/22/19 06:19 Dose: 70 mg Documented by: Amitriptyline HCl (Elavil) 25 mg PO HS [facility] Stop: 08/21/19 20:59 Last Admin: 07/23/19 20:10 Dose: 25 mg Documented by: Atorvastatin Calcium (Lipitor) 20 mg PO DAILY [facility] Stop: 08/21/19 08:59 Last Admin: 07/23/19 08:00 Dose: 20 mg Documented by: Carvedilol (Coreg) 12.5 mg PO BID [facility] Stop: 08/21/19 08:59 Last Admin: 07/23/19 20:08 Dose: 12.5 mg Documented by: Duloxetine HCl (Cymbalta) 30 mg PO HS [facility] Stop: 08/21/19 20:59 Last Admin: 07/23/19 20:09 Dose: 30 mg Documented by: Gabapentin (Neurontin) 200 mg PO TID [facility] Stop: 08/21/19 08:59 Last Admin: 07/23/19 20:07 Dose: 200 mg Documented by: Hydromorphone HCl (Dilaudid) 0.5 mg IV Q3H PRN PRN Reason: Pain Stop: 08/05/19 02:47 Promethazine HCl 12.5 mg/ (Sodium Chloride) 50.5 mls @ 202 mls/hr IV Q6H PRN PRN Reason: Nausea And Vomiting Stop: 08/21/19 02:47 Levothyroxine Sodium (Synthroid) 25 mcg PO [facility] Stop: 08/21/19 20:59 Last Admin: 07/23/19 20:09 Dose: 25 mcg Documented by: Lisinopril (Zestril) 5 mg PO QAM [facility] Stop: 08/21/19 08:59 Last Admin: 07/23/19 09:34 Dose: 5 mg Documented by: Montelukast Sodium (Singulair) 10 mg PO [facility] Stop: 08/21/19 20:59 Last Admin: 07/23/19 20:09 Dose: 10 mg Documented by: Pantoprazole Sodium (Protonix) 40 mg PO DAILY [facility] Stop: 08/21/19 08:59 Last Admin: 07/23/19 08:00 Dose: 40 mg Documented by: Fluticasone/Salmeterol (Advair Diskus 250/50) 1 puffs INH BID [facility] Stop: 08/21/19 08:59 Last Admin: 07/23/19 20:07 Dose: 1 puffs Documented by: Sumatriptan Succinate (Imitrex) 100 mg PO UD PRN PRN Reason: Migraine Headache Stop: 08/21/19 02:47 Last Admin: 07/23/19 06:07 Dose: 100 mg Documented by: Vitamin D (Vitamin D3) 5,000 units PO [facility] Stop: 08/21/19 20:59 Last Admin: 07/23/19 20:08 Dose: 5,000 units Documented by: (1) Migraine Intractability: intractable Migraine type: unspecified Status migrainosus presence: without status migrainosus Qualified Code(s): G43.919 - Migraine, unspecified, intractable, without status migrainosus
[2019-07-23] MEDS ORDERED: GADOBUTROL 65ML VIAL IV PRN (21:57)
--- NOTE | 2019-07-23 22:13 | Magnetic Resonance Report ---
MRI OF THE BRAIN COMBO CLINICAL HISTORY: Chronic migraine headache. Dizziness. Blurry vision. COMPARISON STUDY: CT of the brain dated 07/22/2019. TECHNIQUE: MRI of the brain was performed utilizing various T1 and T2-weighted sequences in the axial , sagittal, and coronal planes. Contrast-enhanced sequences were acquired following the administratio n of 10 cc of Gadavist. The examination is modestly degraded by motion artifact. FINDINGS: Brain parenchyma: There is age-related involutional change noting moderate to advanced confluent subc ortical and periventricular microangiopathic disease. There is no hemorrhage or mass effect. There is no restricted diffusion to suggest acute ischemia. No enhancing mass lesion is identified on the pos tcontrast images. Lilly-white matter differentiation is preserved. No extra-axial fluid collection is seen. The cerebellar tonsils are normal in configuration. Ventricles, sulci, and cisterns: Prominent secondary to involutional change. Pituitary and sella: Partially empty sella is incidentally noted. Intracranial vasculature: Normal flow voids are maintained at the skull base. Orbits: The bony orbits are grossly intact. Orbital contents are normal in appearance noting bilatera l ocular lens implants. Sinuses and mastoids: Clear. Calvarium: Unremarkable. Cervical cord: Partially visualized cervical spinal cord is normal in morphology and signal intensity . IMPRESSION: Senescent changes as above with no acute intracranial abnormality identified. Electronically signed by: Vladislav Curiel M.D. 07/23/2019 10:11 PM
--- NOTE | 2019-07-24 07:04 | Ultrasound Report ---
ULTRASOUND OF THE CAROTID ARTERIES CLINICAL HISTORY: Headaches and blurry vision. Possible carotid stenosis. COMPARISON STUDY: None. TECHNIQUE: Real-time, grayscale, and color Doppler sonography of the carotid arteries was performed. Imaging reviewed in the transverse and longitudinal planes. NASCET criteria was utilized for stenosis calcification. FINDINGS: There is minor atherosclerotic plaque present . The peak systolic velocity within the right internal carotid artery is 61 cm/sec. The systolic velocity ratio of right internal to common carotid artery is 1.1. The peak systolic velocity within the left internal carotid artery is 54 cm/sec. The systolic velocity ratio left internal to common carotid artery is 1.3. Antegrade flow is seen in the vertebral arteries. The external carotid arteries are patent. Blood pressure in the right arm measured 190 mm/Hg. Blood pressure in the left arm measured 179 mm/H g. IMPRESSION: 1. No evidence of hemodynamically significant carotid stenosis 2. Systemic hypertension Electronically signed by: Eric Lopez M.D. 07/24/2019 7:03 AM
--- NOTE | 2019-07-24 07:44 | Surgery Consultation ---
Date of Consultation July 24, 2019 Assessment & Plan (1) Headache: Discussed with the patient right temporal artery biopsy I cannot perform this today the soonest would be 07/27/2019 Depending on her progress today she could be discharged and readmitted as an outpatient on Saturday We will see what the plan is later today History of Present Illness Attending Physician: Jones Thayer MD History of Present Illness Asked to see patient for right temporal artery biopsy She was admitted with headache/migraine which apparently started on the right side usually is on the left She is undergoing neuro work-up occluding MRI of the brain and carotid duplex Allergies Allergy/AdvReac Type Severity Reaction Status Date / Time aspirin Allergy Unknown Unknown Verified 07/22/19 00:20 Sulfa (Sulfonamide Allergy Unknown Unknown Verified 07/22/19 00:20 Antibiotics) Home Medications Home Medications Medication Instructions Recorded Confirmed Type Blue Emu 1 applic TOPICAL [id number] 11/10/18 07/22/19 History acetaminophen [Tylenol] 650 mg PO QID PRN 11/10/18 07/22/19 History albuterol sulfate [Ventolin HFA] 2 puff INHALATION QID PRN 11/10/18 07/22/19 History alendronate 70 mg PO WK 11/10/18 07/22/19 History amitriptyline 25 mg PO HS 11/10/18 07/22/19 History carvedilol 12.5 mg PO BID 11/10/18 07/22/19 History cholecalciferol (vitamin D3) 5,000 unit PO HS 11/10/18 07/22/19 History [Vitamin D3] gabapentin 200 mg PO TID 11/10/18 07/22/19 History hydrocodone-acetaminophen 1 - 2 tab PO UD PRN 11/10/18 07/22/19 History levothyroxine 25 mcg PO HS 11/10/18 07/22/19 History lisinopril 5 mg PO QAM 11/10/18 07/22/19 History montelukast 10 mg PO HS 11/10/18 07/22/19 History sumatriptan succinate 100 mg PO UD PRN 11/10/18 07/22/19 History warfarin [Jantoven] See Rx Instructions .ROUTE .COMPLEX 11/10/18 07/22/19 History duloxetine 30 mg PO HS 02/28/19 07/22/19 History fluticasone propion-salmeterol 1 inh INHALATION BID 03/03/19 07/22/19 History [Advair Diskus] Lipitor 20 mg PO DAILY 07/22/19 07/22/19 History pantoprazole 40 mg PO DAILY 07/22/19 07/22/19 History Patient History Medical History Acute hypoxemic respiratory failure (Acute) Asthma Asthma with exacerbation (Acute) Atrial flutter Hypertension (Acute) Hypothyroidism Pneumonia (Acute) Pulmonary embolism (Chronic 10/10/12) Symptomatic anemia Family History Other Family history non-contributory Social History Preferred Language: Filipino Communication Ability: Effective Visual Impairment: No Limitations Hearing Ability: Normal [employer]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: No Beliefs That Will Affect Care: None marital status: Current Living Situation: Spouse current occupational status: retired Feels Safe at Home: Yes Smoking Status: Never smoker Second Hand Exposure: Yes ( smokes in the home) ; Hx Alcohol Use: Yes Hx Substance Use: No Review of Systems Review of Systems: All systems reviewed & are unremarkable except as noted in HPI & below Physical Exam Physical Exam: Currently the patient is resting comfortably in bed Constitutional: no acute distress Respiratory: normal respiratory effort; no respiratory distress Cardiovascular: Rate/Rhythm: regular rate Gastrointestinal (Abdomen): Inspection/Auscultation: abdomen not distended Skin: no rashes, warm and dry Results & Data Vital Signs (Past 12 Hours) Vital Signs Temp Pulse Resp BP BP Pulse Ox 07/24/19 07:11 36.7 C 77 18 163/79 H 90 07/24/19 04:24 36.3 C L 75 18 166/83 H 95 07/24/19 00:14 36.5 C 69 18 144/71 H 94 07/24/19 00:12 165/82 H PG Care Time/CCT Total # of Minutes Spent Total Time Spent with Patient: Total time spent is greater than 50% in coordination of care (as documented) at patient's floor/unit and/or counseling patient:
[2019-07-24 08:17] LABS: Hematocrit (blood only) 29.8 % (37-47); Hemoglobin 9.8 g/dL (12.0-16.0); Mean Corpuscular Hemoglobin 35.1 pg (25-34); Mean Corpuscular Hgb Conc 32.9 g/dL (32-36); Mean Corpuscular Volume 106.8 fL (80-100); Mean Platelet Volume 9.6 fL (7.4-10.4); Platelet Count 201 K/uL (130-400); RDW Coefficient of Variation 13.4 % (11.5-14.5); RDW Standard Deviation 52.8 fL (36.4-46.3); Red Blood Count 2.79 M/uL (4.2-5.4); White Blood Count 6.66 K/uL (4.8-10.8)
[2019-07-24 08:35] LABS: INR 1.3 (0.9-1.1)
--- NOTE | 2019-07-24 08:36 | Hospitalist Progress Note ---
Date of Service July 24, 2019 Subjective Neurosurgery consulted for temporal artery biopsy, earliest they can do is July 27 Patient to undergo carotid ultrasound and brain MRI per neurology recs Prednisone 40 mg cont. Sumatriptan stopped Results & Data Vital Signs (Past 12 Hours) Vital Signs Temp Pulse Resp BP BP Pulse Ox 07/24/19 07:11 36.7 C 77 18 163/79 H 90 07/24/19 04:24 36.3 C L 75 18 166/83 H 95 07/24/19 00:14 36.5 C 69 18 144/71 H 94 07/24/19 00:12 165/82 H Diagnostic Findings Carotid US FINDINGS: There is minor atherosclerotic plaque present . The peak systolic velocity within the right internal carotid artery is 61 cm/sec. The systolic velocity ratio of right internal to common carotid artery is 1.1. The peak systolic velocity within the left internal carotid artery is 54 cm/sec. The systolic velocity ratio left internal to common carotid artery is 1.3. Antegrade flow is seen in the vertebral arteries. The external carotid arteries are patent. Blood pressure in the right arm measured 190 mm/Hg. Blood pressure in the left arm measured 179 mm/Hg. IMPRESSION: 1. No evidence of hemodynamically significant carotid stenosis 2. Systemic hypertension Brain MRI FINDINGS: Brain parenchyma: There is age-related involutional change noting moderate to advanced confluent subcortical and periventricular microangiopathic disease. There is no hemorrhage or mass effect. There is no restricted diffusion to suggest acute ischemia. No enhancing mass lesion is identified on the postcontrast images. Lilly-white matter differentiation is preserved. No extra- axial fluid collection is seen. The cerebellar tonsils are normal in configuration. Ventricles, sulci, and cisterns: Prominent secondary to involutional change. Pituitary and sella: Partially empty sella is incidentally noted. Intracranial vasculature: Normal flow voids are maintained at the skull base. Orbits: The bony orbits are grossly intact. Orbital contents are normal in appearance noting bilateral ocular lens implants. Sinuses and mastoids: Clear. Calvarium: Unremarkable. Cervical cord: Partially visualized cervical spinal cord is normal in morphology and signal intensity. IMPRESSION: Senescent changes as above with no acute intracranial abnormality identified. Medications Administered Current Inpatient Medications Acetaminophen (Tylenol) 650 mg PO Q4H PRN PRN Reason: pain/fever Stop: 08/21/19 02:47 Hydrocodone Bitart/Acetaminophen (Hector 5/325) 1 tab PO Q6H PRN PRN Reason: Pain Stop: 08/05/19 03:17 Last Admin: 07/23/19 16:46 Dose: 1 tab Documented by: Albuterol (Ventolin Hfa) 2 puffs INH QID PRN PRN Reason: Shortness Of Breath Or Wheezin Stop: 08/21/19 02:47 Alendronate Sodium (Fosamax) 70 mg PO We@0600 [facility] Stop: 08/21/19 05:59 Last Admin: 07/22/19 06:19 Dose: 70 mg Documented by: Amitriptyline HCl (Elavil) 25 mg PO HS [facility] Stop: 08/21/19 20:59 Last Admin: 07/23/19 20:10 Dose: 25 mg Documented by: Atorvastatin Calcium (Lipitor) 20 mg PO DAILY [facility] Stop: 08/21/19 08:59 Last Admin: 07/23/19 08:00 Dose: 20 mg Documented by: Carvedilol (Coreg) 12.5 mg PO BID [facility] Stop: 08/21/19 08:59 Last Admin: 07/23/19 20:08 Dose: 12.5 mg Documented by: Duloxetine HCl (Cymbalta) 30 mg PO HS [facility] Stop: 08/21/19 20:59 Last Admin: 07/23/19 20:09 Dose: 30 mg Documented by: Gabapentin (Neurontin) 200 mg PO TID [facility] Stop: 08/21/19 08:59 Last Admin: 07/23/19 20:07 Dose: 200 mg Documented by: Gadobutrol (Gadavist 65ml) 10 ml IV ONCE PRN PRN Reason: Interaction Checking Stop: 07/27/19 21:56 Last Admin: 07/23/19 21:57 Dose: 10 ml Documented by: Hydromorphone HCl (Dilaudid) 0.5 mg IV Q3H PRN PRN Reason: Pain Stop: 08/05/19 02:47 Promethazine HCl 12.5 mg/ (Sodium Chloride) 50.5 mls @ 202 mls/hr IV Q6H PRN PRN Reason: Nausea And Vomiting Stop: 08/21/19 02:47 Levothyroxine Sodium (Synthroid) [address] [facility] Stop: 01/03/20 20:59 Last Admin: 07/23/19 20:09 Dose: 25 mcg Documented by: Lisinopril (Zestril) 5 mg PO QAM [facility] Stop: 08/21/19 08:59 Last Admin: 07/23/19 09:34 Dose: 5 mg Documented by: Montelukast Sodium (Singulair) 10 mg PO HS [facility] Stop: 08/21/19 20:59 Last Admin: 07/23/19 20:09 Dose: 10 mg Documented by: Pantoprazole Sodium (Protonix) 40 mg PO DAILY [facility] Stop: 08/21/19 08:59 Last Admin: 07/23/19 08:00 Dose: 40 mg Documented by: Fluticasone/Salmeterol (Advair Diskus 250/50) 1 puffs INH BID [facility] Stop: 08/21/19 08:59 Last Admin: 07/23/19 20:07 Dose: 1 puffs Documented by: Sumatriptan Succinate (Imitrex) 100 mg PO UD PRN PRN Reason: Migraine Headache Stop: 08/21/19 02:47 Last Admin: 07/23/19 22:35 Dose: 100 mg Documented by: Vitamin D (Vitamin D3) 5,000 units PO HS [facility] Stop: 08/21/19 20:59 Last Admin: 07/23/19 20:08 Dose: 5,000 units Documented by:
[2019-07-24 08:50] LABS: BUN Creatinine Ratio 24.8 (10-20); Calcium 9.1 mg/dl (8.5-10.1); Creatinine Clr Calc Pharmacy 36.8 ml/min; Est GFR (African American) 38.5; Est GFR (Non-African American) 33.3; Potassium 3.9 mmol/L (3.5-5.1)
[2019-07-24] MEDS: carvediloL 12.5 MG TAB PO SCH (09:36)
[2019-07-24] MEDS: FLUTICASONE/SALMETEROL 250/50 (ADVAIR) 14 PUFF/1 INHALER INH SCH (09:36)
[2019-07-24] MEDS: ATORVASTATIN 20 MG TAB PO SCH (09:36)
[2019-07-24] MEDS: lisinopriL 5 MG TAB PO SCH (09:37)
[2019-07-24] MEDS: PANTOprazole 40 MG TAB PO SCH (09:37)
[2019-07-24] MEDS: GABAPENTIN 100 MG CAP PO SCH ×2 (09:37→14:30)
[2019-07-24] MEDS ORDERED: predniSONE 20 MG TAB PO ONE (13:00)
--- NOTE | 2019-07-24 13:01 | Discharge Summary ---
Date of Service July 24, 2019 Discharge Data Allergies Allergy/AdvReac Type Severity Reaction Status Date / Time aspirin Allergy Unknown Unknown Verified 07/22/19 00:20 Sulfa (Sulfonamide Allergy Unknown Unknown Verified 07/22/19 00:20 Antibiotics) Consultations 07/22/19 01:00 ED Decision to Admit Stat 07/22/19 02:48 Consult Case Management - Discharge Planning Routine 07/22/19 08:00 Consult Cardiology Routine 07/23/19 10:38 Consult Neurology Routine 07/23/19 15:04 Consult General Surgery Routine Ordered Studies 07/21/19 23:38 CT head/brain wo con Urgent 07/22/19 03:18 CT abd pelvis wo con Routine 07/23/19 17:38 MR brain wo/w con Routine US carotid doppler BI Routine Discharge Plan Discharge Items Patient Disposition: Home - Self-Care Reason For Visit: HEADACHE Discharge Diagnosis: Headache, concern for temporal arteritis Activity: Resume your previous activity Activity Comment: as tolerated/ pace yourself, ask for help as needed Non-emergency contact: Primary Care Provider Call non-emergency contact if: you have any medication questions and your symptoms worsen Follow-up/Referrals: Giorgio Salas, DO [Primary Care Provider] - Diet: Heart Healthy Addtl Attending Provider Instructions: You will be called about upcoming temporal artery biopsy with general surgery. For now plan is for Friday 07/27, but their office will give you further instructions. Do not take your warfarin over the weekend. Take prednisone 40 mg every day with lunch. You will need to follow-up with primary care provider, appointment was scheduled for you for July 29, at 10:[address] Coe. Pending Studies at Discharge: No Stand-Alone Forms: My [facility] TournEase, Smoking Cessation Medications and DC Order Prescriptions: New prednisone 20 mg tablet 40 mg PO DAILY 5 Days Qty: 10 RF: 0 Continued duloxetine 30 mg capsule,delayed release(DR/EC) 30 mg PO HS RF: 0 fluticasone propion-salmeterol [Advair Diskus] 250-50 mcg/dose Blister With Device 1 inh INHALATION BID RF: 0 pantoprazole 40 mg tablet,delayed release (DR/EC) 40 mg PO DAILY RF: 0 Lipitor 20 mg 20 mg PO DAILY RF: 0 acetaminophen [Tylenol] 325 mg Tablet 650 mg PO QID PRN (Reason: Pain) RF: 0 carvedilol 12.5 mg tablet 12.5 mg PO BID RF: 0 hydrocodone-acetaminophen 5-325 mg tablet 1 - 2 tab PO UD PRN (Reason: Pain) RF: 0 alendronate 70 mg tablet 70 mg PO WK RF: 0 levothyroxine 25 mcg tablet 25 mcg PO HS RF: 0 amitriptyline 25 mg tablet 25 mg PO HS RF: 0 montelukast 10 mg tablet 10 mg PO HS RF: 0 lisinopril 5 mg tablet 5 mg PO QAM RF: 0 gabapentin 100 mg capsule 200 mg PO TID RF: 0 albuterol sulfate [Ventolin HFA] 90 mcg/actuation Hfa Aerosol Inhaler 2 puff INHALATION QID PRN (Reason: Shortness Of Breath Or Wheezing) RF: 0 cholecalciferol (vitamin D3) [Vitamin D3] 5,000 unit Tablet 5,000 unit PO HS RF: 0 Blue Emu 1 applic topical [id number] RF: 0 Discontinued sumatriptan succinate 100 mg tablet 100 mg PO UD PRN (Reason: Migraine Headache) RF: 0 warfarin [Jantoven] 5 mg tablet See Rx Instructions .ROUTE .COMPLEX RF: 0 Discharge Orders: Discharge Order (Routine); Ordered 07/24/19 Ordered By: Jones Thayer Admission Data Admit Date/Time: 07/23/19 15:03 Attending Provider: Jones Thayer Admit Provider: Jaskaran Washington Primary Care Provider: Giorgio Salas Other Providers: Jaskaran Washington ; Kg Barraza ; America Salazar ; Leonard Oswald ; America Álvarez ; Abraham Cruz ; Minh Hilario ; Madhuri Craft ; George Franco ; Allny Chacon ; Josesito Mackey ; Roger Ballard ; Michelle Delgadillo ; Antoine Hoover ; Beatrice Mason ; Yahir Edwards Jr ; Jose Knox ; Mary Wayne
--- NOTE | 2019-07-24 13:11 | Discharge Summary ---
Date of Service July 24, 2019 Discharge Data Allergies Allergy/AdvReac Type Severity Reaction Status Date / Time aspirin Allergy Unknown Unknown Verified 07/22/19 00:20 Sulfa (Sulfonamide Allergy Unknown Unknown Verified 07/22/19 00:20 Antibiotics) Consultations 07/22/19 01:00 ED Decision to Admit Stat 07/22/19 02:48 Consult Case Management - Discharge Planning Routine 07/22/19 08:00 Consult Cardiology Routine 07/23/19 10:38 Consult Neurology Routine 07/23/19 15:04 Consult General Surgery Routine Ordered Studies 07/21/19 23:38 CT head/brain wo con Urgent 07/22/19 03:18 CT abd pelvis wo con Routine 07/23/19 17:38 MR brain wo/w con Routine US carotid doppler BI Routine Discharge Plan Discharge Items Patient Disposition: Home - Self-Care Reason For Visit: HEADACHE Discharge Diagnosis: Headache, concern for temporal arteritis Activity: Resume your previous activity Activity Comment: as tolerated/ pace yourself, ask for help as needed Non-emergency contact: Primary Care Provider Call non-emergency contact if: you have any medication questions and your symptoms worsen Follow-up/Referrals: Giorgio Salas, [Primary Care Provider] - Diet: Heart Healthy Addtl Attending Provider Instructions: You will be called about upcoming temporal artery biopsy with general surgery. For now plan is for Friday 07/27, but their office will give you further instructions. If you need to contact general surgery office with any questions, regarding your appointment, the number is . Do not take your warfarin over the weekend. Take prednisone 40 mg every day with lunch. You will need to follow-up with primary care provider, appointment was scheduled for you for July 29, at 10:[address] Coe. Pending Studies at Discharge: No Stand-Alone Forms: [facility], Smoking Cessation Medications and DC Order Prescriptions: New prednisone 20 mg tablet 40 mg PO DAILY 5 Days Qty: 10 RF: 0 Continued duloxetine 30 mg capsule,delayed release(DR/EC) 30 mg PO HS RF: 0 fluticasone propion-salmeterol [Advair Diskus] 250-50 mcg/dose Blister With Device 1 inh INHALATION BID RF: 0 pantoprazole 40 mg tablet,delayed release (DR/EC) 40 mg PO DAILY RF: 0 Lipitor 20 mg 20 mg PO DAILY RF: 0 acetaminophen [Tylenol] 325 mg Tablet 650 mg PO QID PRN (Reason: Pain) RF: 0 carvedilol 12.5 mg tablet 12.5 mg PO BID RF: 0 hydrocodone-acetaminophen 5-325 mg tablet 1 - 2 tab PO UD PRN (Reason: Pain) RF: 0 alendronate 70 mg tablet 70 mg PO WK RF: 0 levothyroxine 25 mcg tablet 25 mcg PO HS RF: 0 amitriptyline 25 mg tablet 25 mg PO HS RF: 0 montelukast 10 mg tablet 10 mg PO HS RF: 0 lisinopril 5 mg tablet 5 mg PO QAM RF: 0 gabapentin 100 mg capsule 200 mg PO TID RF: 0 albuterol sulfate [Ventolin HFA] 90 mcg/actuation Hfa Aerosol Inhaler 2 puff INHALATION QID PRN (Reason: Shortness Of Breath Or Wheezing) RF: 0 cholecalciferol (vitamin D3) [Vitamin D3] 5,000 unit Tablet 5,000 unit PO HS RF: 0 Blue Emu 1 applic topical 3XWK RF: 0 Discontinued sumatriptan succinate 100 mg tablet 100 mg PO UD PRN (Reason: Migraine Headache) RF: 0 warfarin [Jantoven] 5 mg tablet See Rx Instructions .ROUTE .COMPLEX RF: 0 Discharge Orders: Discharge Order (Routine); Ordered 07/24/19 Ordered By: Jones Thayer Admission Data Admit Date/Time: 07/23/19 15:03 Attending Provider: Jones Thayer Admit Provider: Jaskaran Washington Primary Care Provider: Giorgio Salas Other Providers: Jaskaran Washington ; Kg Barraza ; America Salazar ; Leonard Oswald ; America Álvarez ; Abraham Cruz ; Minh Hilario ; Madhuri Craft ; George Franco ; Allyn Chacon ; Josesito Mackey ; Roger Ballard ; Michelle Delgadillo ; Antoine Hoover ; Beatrice Mason ; Yahir Edwards Jr ; Jose Knox ; Mary Wayne
--- NOTE | 2019-07-24 13:35 | Anesthesiology Consultation ---
Date of Service July 24, 2019 Assessment & Plan Chart Review Chart Review: Acceptable Risk for Surgery and Patient NOT seen in Pre Admission Testing Consults Requested none ASA ASA4 Proposed Anesthesia Anesthesia Type: General and MAC History Height/Weight Height: 5 ft 5 in Weight: 100 kg Allergies Allergy/AdvReac Type Severity Reaction Status Date / Time aspirin Allergy Unknown Unknown Verified 07/22/19 00:20 Sulfa (Sulfonamide Allergy Unknown Unknown Verified 07/22/19 00:20 Antibiotics) Medications Home Medications Medication Instructions Recorded Confirmed Last Taken Blue Emu 1 applic TOPICAL 3XWK 11/10/18 07/22/19 02/04/19 acetaminophen [Tylenol] 650 mg PO QID PRN 11/10/18 07/22/19 02/05/19 albuterol sulfate [Ventolin HFA] 2 puff INHALATION QID PRN 11/10/18 07/22/19 02/05/19 21:00 alendronate 70 mg PO WK 11/10/18 07/22/19 07/15/19 amitriptyline 25 mg PO HS 11/10/18 07/22/19 07/21/19 carvedilol 12.5 mg PO BID 11/10/18 07/22/19 07/21/19 cholecalciferol (vitamin D3) 5,000 unit PO HS 11/10/18 07/22/19 07/21/19 [Vitamin D3] gabapentin 200 mg PO TID 11/10/18 07/22/19 07/19/19 hydrocodone-acetaminophen 1 - 2 tab PO UD PRN 11/10/18 07/22/19 07/21/19 levothyroxine 25 mcg PO HS 11/10/18 07/22/19 07/21/19 lisinopril 5 mg PO QAM 11/10/18 07/22/19 07/21/19 montelukast 10 mg PO HS 11/10/18 07/22/19 07/21/19 duloxetine 30 mg PO HS 02/28/19 07/22/19 07/21/19 fluticasone propion-salmeterol 1 inh INHALATION BID 03/03/19 07/22/19 07/21/19 [Advair Diskus] Lipitor 20 mg PO DAILY 07/22/19 07/22/19 Unknown pantoprazole 40 mg PO DAILY 1207/22/19 07/21/19 prednisone 40 mg PO DAILY 5 Days #10 tab 07/24/19 Unknown Active Medications Generic Name Dose Route Start Last Admin Trade Name Edvin PRN Reason Stop Dose Admin Hydrocodone Bitart/Acetaminophen 1 tab 07/22/19 03:18 07/23/19 16:46 [place] 5/325 PO 08/05/19 03:17 1 tab Q6H PRN Administration Pain Alendronate Sodium 70 mg 07/22/19 06:00 07/22/19 06:19 Fosamax PO 08/21/19 05:59 70 mg We@0600 TRACI Administration Amitriptyline HCl 25 mg 07/22/19 21:00 07/23/19 20:10 Elavil PO 08/21/19 20:59 25 mg HS TRACI Administration Atorvastatin Calcium 20 mg 07/22/19 09:00 07/24/19 09:36 Lipitor PO 08/21/19 08:59 20 mg DAILY TRACI Administration Carvedilol 12.5 mg 07/22/19 09:00 07/24/19 09:36 Coreg PO 08/21/19 08:59 12.5 mg BID TRACI Administration Duloxetine HCl 30 mg 07/22/19 21:00 07/23/19 20:09 Cymbalta PO 08/21/19 20:59 30 mg HS TRACI Administration Gabapentin 200 mg 07/22/19 09:00 07/24/19 09:37 Neurontin PO 08/21/19 08:59 200 mg TID TRACI Administration Gadobutrol 10 ml 07/23/19 21:57 07/23/19 21:57 Gadavist 65ml IV 07/27/19 21:56 10 ml ONCE PRN Administration Interaction Checking Levothyroxine Sodium 25 mcg 07/22/19 21:00 07/23/19 20:09 Synthroid PO 08/21/19 20:59 25 mcg HS TRACI Administration Lisinopril 5 mg 07/22/19 09:00 07/24/19 09:37 Zestril PO 08/21/19 08:59 5 mg QAM TRACI Administration Montelukast Sodium 10 mg 07/22/19 21:00 07/23/19 20:09 Singulair PO 08/21/19 20:59 10 mg HS TRACI Administration Pantoprazole Sodium 40 mg 07/22/19 09:00 07/24/19 09:37 Protonix PO 08/21/19 08:59 40 mg DAILY TRACI Administration Fluticasone/Salmeterol 1 puffs 07/22/19 09:00 07/24/19 09:36 Advair Diskus 250/50 INH 08/21/19 08:59 1 puffs BID TRACI Administration Vitamin D 5,000 units 07/22/19 21:00 07/23/19 20:08 Vitamin D3 PO 08/21/19 20:59 5,000 units HS TRACI Administration Past Medical History Medical History Acute hypoxemic respiratory failure (Acute) Asthma Asthma with exacerbation (Acute) Atrial flutter Hypertension (Acute) Hypothyroidism Pneumonia (Acute) Pulmonary embolism (Chronic 10/10/12) Symptomatic anemia Exercise / Class Metabolic Activity III < 4 Walking/Shop/Light housework Past Family History Family History Other Family history non-contributory Past Anesthesia History No Hx of Anesthesia Complications and No Family Hx of Anesthesia Complications History of PONV No Hx of PONV and No Hx of Motion Sickness Social History Smoking Status: Never smoker Hx Alcohol Use: Yes alcohol intake frequency: holidays/special occasions only Hx Substance Use: No Physical Exam Vital Signs Last Vital Signs Temp 36.7 C 07/24/19 13:16 Pulse 92 H 07/24/19 13:16 Resp 18 07/24/19 13:16 BP 163/79 H 07/24/19 13:16 Pulse Ox 90 07/24/19 13:16 Testing Laboratory Results 07/24/19 07:51 07/24/19 07:51 PT 13.0 Seconds (9.0-12.0) H 07/24/19 07:51 INR 1.3 (0.9-1.1) H 07/24/19 07:51 APTT 43.3 Seconds (21.0-31.0) H 07/21/19 23:48 Electrocardiogram Date: 07/22/19 Findings: + NSR @ (at 77 ;LVH w/ QRS widening and repolarization abnormality;pST elevations in anterior leads) Echocardiogram Date: 07/22/19 EF: 50 LV Function: normal (low normal) Other Findings: + LVH (mild) Valvular Disease: + no significant valvular disease mild TR Cardiac Catheterization Date: 09/30/17 Findings: + pertinent finding (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 stenoses
[2019-07-24] MEDS ORDERED: WARFARIN SOD 5 MG TAB PO SCH (16:00)
[2019-07-27] MEDS ORDERED: LR 15ML/HR IV SCH (06:00)
== END 2019-07-24 15:44 | disposition home or self-care (01) | DRG 103 ==
LOC: ED 23:20 → 2N 23:20 → 2W 07-23 20:01

== ENCOUNTER 2020-06-27 19:03 | Inpatient (IN) ==
[2020-06-27 19:58] LABS: Basophils # (auto) 0.03 K/uL (0-0.2); Basophils % (auto) 0.5 %; Eosinophils # (auto) 0.43 K/uL (0-0.5); Eosinophils % (auto) 7.2 %; Hematocrit (blood only) 36.7 % (37-47); Hemoglobin 11.8 g/dL (12.0-16.0); Immature Granulocytes # (auto) 0.01 K/uL (0.00-0.02); Immature Granulocytes % (auto) 0.2 %; Lymphocytes # (auto) 1.55 K/uL (1.2-3.4); Lymphocytes % (auto) 25.8 %; Mean Corpuscular Hemoglobin 35.5 pg (25-34); Mean Corpuscular Hgb Conc 32.2 g/dL (32-36); Mean Corpuscular Volume 110.5 fL (80-100); Mean Platelet Volume 10.1 fL (7.4-10.4); Monocytes # (auto) 0.35 K/uL (0.11-0.59); Monocytes % (auto) 5.8 %; Neutrophils # (auto) 3.64 K/uL (1.4-6.5); Neutrophils % (auto) 60.5 %; Platelet Count 212 K/uL (130-400); RDW Coefficient of Variation 13.1 % (11.5-14.5); RDW Standard Deviation 53.4 fL (36.4-46.3); Red Blood Count 3.32 M/uL (4.2-5.4); White Blood Count 6.01 K/uL (4.8-10.8)
--- NOTE | 2020-06-27 20:04 | XRay Report ---
SINGLE VIEW CHEST CLINICAL HISTORY: Dyspnea. FINDINGS: An AP, portable, upright chest radiograph is compared to study dated 01/15/2020. Correlation is made with chest CT dated 09/26/2017. The examination is degraded by portable technique and patient rotation. The cardiomediastinal silhouette is unremarkable. There is chronic elevation of the right hemidiaphragm with atelectasis of the right lower lung. No airspace consolidation or large pleural ef fusion is seen. No pneumothorax is identified. The skeletal structures are osteopenic. The bony thora x is grossly intact. Advanced arthritic change is noted in the shoulders. Cholecystectomy clips are s een in the right upper quadrant. IMPRESSION: No active disease in the chest. ACT 112: Negative or not required by law. Electronically signed by: Vladislav Curiel M.D. 06/27/2020 8:03 PM
--- NOTE | 2020-06-27 20:14 | Emergency Department Note ---
Impression & Plan Pulmonary edema, Acute UTI (urinary tract infection), Hypoxia, Acute respiratory acidosis ED Provider Note NAME: BEV ALDRIDGE AGE: 80 SEX: F : 1940 ARRIVES VIA: Walk-In INFORMANT: Patient, ED PROVIDER(S): Vimal Joy DO CHIEF COMPLAINT: Shortness of breath HPI: The patient is a 80-year-old female who presented to the emergency department for an evaluation of difficulty breathing. 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 She started having difficulty breathing earlier in the day. She continues to have very significant shortness of breath. She denies having any cough or fever. She lives at home and was not exposed to COVID-19 as far she knows. She denies having any recent falls. She does wear supplemental oxygen but only at night. She does complain of significant shortness of breath especially with any exertion. She denies any specific orthopnea. She denies having any lower extremity swelling. ROS: See above HPI for pertinent positives & negatives. A total of 10 systems reviewed and were otherwise negative. PAST MEDICAL HISTORY: See Below PAST SURGICAL HISTORY: See Below FAMILY HISTORY: See Below SOCIAL HISTORY: See Below HOME MEDICATIONS: See Below ALLERGIES: See Below VITALS: See Below PHYSICAL EXAMINATION: GENERAL: The patient is awake and alert. She is very anxious appearing. EYES: The conjunctivae are clear. The pupils are round and reactive. EARS, NOSE, MOUTH AND THROAT: The nose is without any evidence of any deformity. Mucous membranes are moist. Tongue is midline. NECK: The neck is nontender and supple. RESPIRATORY: Shallow respirations were noted. There were diminished breath sounds noted throughout. Expiratory wheezing was noted in all lung gilbert. There was mild conversational dyspnea appreciated. CARDIOVASCULAR: Regular rate and rhythm noted there no murmurs rubs or gallops normal S1 normal S2. GASTROINTESTINAL: The abdomen is soft. Abdomen is nontender. MUSCULOSKELETAL/EXTREMITIES: There is no evidence of gross deformity full range of motion is noted in the hips and shoulders. SKIN: There is no obvious evidence of any rash. There are no petechiae, pallor or cyanosis noted. NEUROLOGIC: Patient is awake alert and oriented x3. MEDICAL DECISION MAKING: The patient is a 80-year-old female who presented to the emergency department for an evaluation of difficulty breathing. The patient's history and physical exam appear to be consistent with pulmonary edema. She was treated with IV Lasix as well as DuoNeb therapy. She was also treated with IV antibiotics for presumed urinary tract infection noted on urinalysis. I discussed the patient's laboratory and radiographic studies with her. She was feeling much better on subsequent reevaluation. I discussed her case with the on-call [facility] hospitalist. They have agreed to evaluate the patient in the emergency department for further management and disposition. Triage Nursing notes reviewed. Prior medical records reviewed Vital Signs: reviewed and remarkable for hypertension Differential diagnosis: Reactive airway disease, pneumonia, pneumothorax, COPD, CHF, infections, cardiac ischemia, pulmonary embolism, musculoskeletal, gastrointestinal, as well as other pathologies. ER treatment provided: See below Diagnostics interpreted by me: ECG: EKG was obtained in the emergency department. My interpretation is normal sinus rhythm at 90 bpm. No PVCs were noted. A left bundle branch block pattern was noted. This was compared to a tracing from January 15, 2020. No significant changes were noted. Cardiac Monitoring: An order was placed for continuous cardiac monitoring. The monitor shows a rate of 89 bpm with sinus rhythm. Laboratory studies: As stated above and show below. Imaging studies: See below Consultation(s): 2244: I discussed this case with Dr. Botello who is on-call for the [facility] ospitalist group. He will evaluate the patient in the emergency department for further management and disposition. Past Med/Surg History Medical History (Updated 06/27/20 @ 22:56 by Vimal Joy DO) Asthma USES PRN INH 1 X WK Atrial flutter PT COULD NOT CONFIRM History of DVT (deep vein thrombosis) RLE - 20 YEARS AGO FOLLOWING INJURY History of endometriosis History of MN (myocardial infarction) 2018 - FOLLOWS W/ DR. JACOBSEN Hypertension Hypothyroidism Migraine On anticoagulant therapy On home oxygen therapy 2 LPM 02 QHS Osteoarthritis Osteoporosis Poor historian Pulmonary embolism (10/10/12) 20 YEARS AGO AFTER INJURY 30 YEARS AGO - POST OP CHOLEYCYSTECTOMY ON WARFARIN Sleep apnea NO DEVICE Surgical History History of appendectomy History of cardiac cath 2018 - MN - NO STENTS History of cataract surgery History of section History of cholecystectomy History of colonoscopy History of esophagogastroduodenoscopy (EGD) History of left knee surgery History of tonsillectomy History of total abdominal hysterectomy and bilateral salpingo-oophorectomy History of tubal ligation Family History Father Esophageal cancer Social History Smoking Status: Never smoker Second Hand Exposure: Yes (FAMILY MEMBERS CURRENTLY SMOKE); Hx Alcohol Use: No Hx Substance Use: No Preferred Language: Marshallese Communication Ability: Effective Visual Impairment: No Limitations Hearing Ability: Normal Center Line Cutter Operator Required: No Beliefs That Will Affect Care: None marital status: Current Living Situation: Spouse current occupational status: retired Feels Safe at Home: Yes Assistive Devices: Cane, Denture - Upper, Denture - Lower, Glasses, Walker and Wheelchair Allergies Allergies Allergy/AdvReac Type Severity Reaction Status Date / Time aspirin Allergy Unknown Unknown Verified 02/17/20 10:24 Sulfa (Sulfonamide Allergy Unknown Unknown Verified 02/17/20 10:24 Antibiotics) Home Meds Home Medications Medication Instructions Recorded Confirmed albuterol sulfate [Ventolin HFA] 2 puff INHALATION QID PRN 11/10/18 01/15/20 alendronate 70 mg PO WK 11/10/18 01/15/20 amitriptyline 25 mg PO HS 11/10/18 01/15/20 carvedilol 12.5 mg PO BID 11/10/18 01/15/20 cholecalciferol (vitamin D3) 5,000 unit PO HS 11/10/18 01/15/20 [Vitamin D3] gabapentin 100 mg PO TID 11/10/18 01/15/20 hydrocodone-acetaminophen 1 - 2 tab PO DIRECTED PRN 11/10/18 01/15/20 lisinopril 5 mg PO QAM 11/10/18 01/15/20 montelukast 10 mg PO HS 11/10/18 01/15/20 duloxetine 30 mg PO HS 02/28/19 01/15/20 fluticasone propion-salmeterol 1 inh INHALATION BID 03/03/19 01/15/20 [Advair Diskus] pantoprazole 40 mg PO DAILY 07/22/19 01/15/20 atorvastatin 20 mg PO DAILY 10/11/19 01/15/20 levothyroxine 50 mcg PO HS 01/15/20 01/15/20 warfarin [Jantoven] See Rx Instructions .ROUTE .COMPLEX 01/15/20 01/15/20 Previous Rx's Medication Instructions Recorded prednisone 10 mg PO DAILY #31 tab 01/15/20 Results & Data (ED) Vital Signs Vital Signs - 24 hr 06/27/20 19:22 06/27/20 19:48 06/27/20 19:52 Temperature 37 C Temperature Source Oral Pulse Rate 93 H Pulse Rate [Right] Pulse Rhythm [Right] Pulse Strength [Right] Respiratory Rate 22 Respiratory Effort / Characteristics Non-Labored Spontaneous Short of Breath SOB on Exertion Respiratory Depth Normal Respiratory Pattern Regular Blood Pressure 160/84 H Blood Pressure [Right Arm] Blood Pressure Mean 109 Blood Pressure Mean [Right Arm] Pulse Oximetry 90 95 Oxygen Delivery Method Room Air Nasal Cannula Nasal Cannula Oxygen Flow Rate 2 2 Sepsis Recent Fever Within 48 Hours No Sepsis New/Unexplained Change in Mental Status N/A Sepsis Action Taken by Nursing No Action Required 06/27/20 21:12 06/27/20 21:52 Temperature Temperature Source Pulse Rate Pulse Rate [Right] 112 H 94 H Pulse Rhythm [Right] Regular Pulse Strength [Right] Normal Respiratory Rate 22 21 Respiratory Effort / Characteristics Non-Labored Spontaneous Non-Labored Spontaneous Respiratory Depth Normal Respiratory Pattern Blood Pressure Blood Pressure [Right Arm] 162/113 H Blood Pressure Mean Blood Pressure Mean [Right Arm] 129 Pulse Oximetry 96 99 Oxygen Delivery Method Nasal Cannula Nasal Cannula Oxygen Flow Rate 4 4 Sepsis Recent Fever Within 48 Hours Sepsis New/Unexplained Change in Mental Status Sepsis Action Taken by [facility] Medications Current Medication List: was personally reviewed by me Laboratory Data Attestation: I reviewed the patient's lab results. Result diagrams: 06/27/20 19:50 06/27/20 19:50 Lab Results 06/27/20 06/27/20 06/27/20 Range/Units 19:50 19:50 19:50 WBC 6.01 (4.8-10.8) K/uL RBC 3.32 L (4.2-5.4) M/uL Hgb 11.8 L (12.0-16.0) g/dL Hct 36.7 L (37-47) % MCV 110.5 H (80-100) fL MCH 35.5 H (25-34) pg MCHC 32.2 (32-36) g/dL RDW Std Deviation 53.4 H (36.4-46.3) fL RDW Coeff of Vijay 13.1 (11.5-14.5) % Plt Count 212 (130-400) K/uL MPV 10.1 (7.4-10.4) fL Immature Gran % (Auto) 0.2 % Neut % (Auto) 60.5 % Lymph % (Auto) 25.8 % [place] % (Auto) 5.8 % Eos % (Auto) 7.2 % Baso % (Auto) 0.5 % Neut # (Auto) 3.64 (1.4-6.5) K/uL Lymph # (Auto) 1.55 (1.2-3.4) K/uL [place] # (Auto) 0.35 (0.11-0.59) K/uL Eos # (Auto) 0.43 (0-0.5) K/uL Baso # (Auto) 0.03 (0-0.2) K/uL Immature Gran # (Auto) 0.01 (0.00-0.02) K/uL Macrocytosis Present PT 37.7 H (9.0-12.0) Seconds INR 3.8 H (0.9-1.1) APTT 41.0 H (21.0-31.0) Seconds PTT Ratio 1.5 VBG pH (7.36-7.41) VBG pCO2 (38-50) mmHg VBG pO2 mmHg VBG HCO3 mmol/L VBG O2 Saturation % VBG Base Excess mEq/L Barometric Pressure mm/Hg Sodium 140 (136-145) mmol/L Potassium 4.1 (3.5-5.1) mmol/L Chloride 106 (98-107) mmol/L Carbon Dioxide 32 (21-32) mmol/L Anion Gap 2.0 L (3-11) BUN 14 (7-18) mg/dl Creatinine 1.01 (0.6-1.2) mg/dl Est Cr Clr Drug Dosing 52.8 ml/min Est GFR ( Amer) 61.7 Est GFR (Non-Af Amer) 53.3 BUN/Creatinine Ratio 13.9 (10-20) Glucose 85 (70-99) mg/dl Calcium 9.3 (8.5-10.1) mg/dl Magnesium 2.0 (1.8-2.4) mg/dl Total Bilirubin 0.8 (0.2-1) mg/dl AST 17 (15-37) U/L ALT 14 (12-78) U/L Alkaline Phosphatase 80 (45-117) U/L Troponin I < 0.015 (0-0.045) ng/ml NT-Pro-B Natriuret Pep 1876 H (0-1800) pg/ml Total Protein 7.3 (6.4-8.2) gm/dl Albumin 3.4 (3.4-5.0) gm/dl Globulin 3.9 (2.5-4.0) gm/dl Albumin/Globulin Ratio 0.9 (0.9-2) Urine Color Urine Appearance (Clear) Urine pH (4.5-7.5) Ur Specific [place] (1.000-1.030) Urine Protein (Negative) Urine Glucose (UA) (Negative) Urine Ketones (Negative) Urine Blood (Negative) Urine Nitrite (Negative) Urine Bilirubin (Negative) Urine Urobilinogen (Negative) Ur Leukocyte Esterase (Negative) Urine WBC (Auto) (0-5) /hpf Urine RBC (Auto) (0-4) /hpf U Hyaline Cast (Auto) (0-5) /lpf U Epithel Cells (Auto) (0-5) /lpf Urine Bacteria (Auto) (Negative) 06/27/20 06/27/20 Range/Units 20:16 21:50 WBC (4.8-10.8) K/uL RBC (4.2-5.4) M/uL Hgb (12.0-16.0) g/dL Hct (37-47) % MCV (80-100) fL MCH (25-34) pg MCHC (32-36) g/dL RDW Std Deviation (36.4-46.3) fL RDW Coeff of Vijay (11.5-14.5) % Plt Count (130-400) K/uL MPV (7.4-10.4) fL Immature Gran % (Auto) % Neut % (Auto) % Lymph % (Auto) % [place] % (Auto) % Eos % (Auto) % Baso % (Auto) % Neut # (Auto) (1.4-6.5) K/uL Lymph # (Auto) (1.2-3.4) K/uL [place] # (Auto) (0.11-0.59) K/uL Eos # (Auto) (0-0.5) K/uL Baso # (Auto) (0-0.2) K/uL Immature Gran # (Auto) (0.00-0.02) K/uL Macrocytosis PT (9.0-12.0) Seconds INR (0.9-1.1) APTT (21.0-31.0) Seconds PTT Ratio VBG pH 7.31 L (7.36-7.41) VBG pCO2 61 H (38-50) mmHg VBG pO2 34 mmHg VBG HCO3 30 mmol/L VBG O2 Saturation < 60.0 % VBG Base Excess 2.8 mEq/L Barometric Pressure 740.7 mm/Hg Sodium (136-145) mmol/L Potassium (3.5-5.1) mmol/L Chloride (98-107) mmol/L Carbon Dioxide (21-32) mmol/L Anion Gap (3-11) BUN (7-18) mg/dl Creatinine (0.6-1.2) mg/dl Est Cr Clr Drug Dosing ml/min Est GFR ( Amer) Est GFR (Non-Af Amer) BUN/Creatinine Ratio (10-20) Glucose (70-99) mg/dl Calcium (8.5-10.1) mg/dl Magnesium (1.8-2.4) mg/dl Total Bilirubin (0.2-1) mg/dl AST (15-37) U/L ALT (12-78) U/L Alkaline Phosphatase (45-117) U/L Troponin I (0-0.045) ng/ml NT-Pro-B Natriuret Pep (0-1800) pg/ml Total Protein (6.4-8.2) gm/dl Albumin (3.4-5.0) gm/dl Globulin (2.5-4.0) gm/dl Albumin/Globulin Ratio (0.9-2) Urine Color Yellow Urine Appearance Cloudy A (Clear) Urine pH 6.0 (4.5-7.5) Ur Specific [place] 1.018 (1.000-1.030) Urine Protein Negative (Negative) Urine Glucose (UA) Negative (Negative) Urine Ketones Negative (Negative) Urine Blood 3+ H (Negative) Urine Nitrite Positive A (Negative) Urine Bilirubin Negative (Negative) Urine Urobilinogen Negative (Negative) Ur Leukocyte Esterase 3+ H (Negative) Urine WBC (Auto) >30 H (0-5) /hpf Urine RBC (Auto) 5-10 H (0-4) /hpf U Hyaline Cast (Auto) 10-30 H (0-5) /lpf U Epithel Cells (Auto) 20-30 H (0-5) /lpf Urine Bacteria (Auto) 3+ H (Negative) Administered Medications Discontinued Medications Albuterol (Albut/Ipratrop 3mg/0.5mg Neb 3 Ml Vial) 3 ml NEB NOW STA Stop: 06/27/20 21:19 Last Admin: 06/27/20 21:51 Dose: 3 ml Documented by: [id number] Furosemide (Furosemide 40 Mg/4 Ml Vial) 40 mg IV NOW STA Stop: 06/27/20 21:19 Last Admin: 06/27/20 22:22 Dose: 40 mg Documented by: [id number] Imaging Data Radiologist's Impression: Patient: BEV ALDRIDGE Admit Date: 06/27/20 MR#: [id number] Address1: [address] [place] [address] Acct ID:[id number] Address2: Date: 1940 [facility] Zip: [place] [address] Age: 80 Location: ED Sex: F Room/Bed: Att Phy: Diagnosis: SOB Gina Phy: Giorgio Salas DO Service Date: 06/27/20 Fam Phy: Interpreting Phy: Vladislav Curiel MD Admit Phy: Ordering Phy: Vimal Joy DO cc: ~ SINGLE VIEW CHEST CLINICAL HISTORY: Dyspnea. FINDINGS: An AP, portable, upright chest radiograph is compared to study dated 01/15/2020. Correlation is made with chest CT dated 09/26/2017. The examination is degraded by portable technique and patient rotation. The cardiomediastinal silhouette is unremarkable. There is chronic elevation of the right hemidiaphragm with atelectasis of the right lower lung. No airspace consolidation or large pleural effusion is seen. No pneumothorax is identified. The skeletal structures are osteopenic. The bony thorax is grossly intact. Advanced arthritic change is noted in the shoulders. Cholecystectomy clips are seen in the right upper quadrant. IMPRESSION: No active disease in the chest. ACT 112: Negative or not required by law. Electronically signed by: Vladislav Curiel M.D. 06/27/2020 8:03 PM Dictated: 06/27/201999 Transcribed: 06/27/202000 Blood Pressure Blood Pressure Findings: Elevated blood pressure Blood Pressure Disposition: further management by hospitalist Discharge Plan Visit Data Chief Complaint: Shortness of Breath/Dyspnea Stated Complaint: SOB ED Provider: Vimal Joy Discharge Problem: Pulmonary edema, Acute UTI (urinary tract infection), Hypoxia, Acute respiratory acidosis Patient Disposition: Being Evaluated by Hospitalist Condition: Good Forms Stand Alone Forms: My [facility] Prescriptions Prescriptions: No Action duloxetine 30 mg capsule,delayed release(DR/EC) 30 mg PO HS RF: 0 fluticasone propion-salmeterol [Advair Diskus] 250-50 mcg/dose Blister With Device 1 inh INHALATION BID RF: 0 pantoprazole 40 mg tablet,delayed release (DR/EC) 40 mg PO DAILY RF: 0 levothyroxine 50 mcg tablet 50 mcg PO HS RF: 0 warfarin [Jantoven] 5 mg tablet See Rx Instructions .ROUTE .COMPLEX RF: 0 prednisone 10 mg tablet 10 mg PO DAILY Qty: 31 RF: 0 carvedilol 12.5 mg tablet 12.5 mg PO BID RF: 0 hydrocodone-acetaminophen 5-325 mg tablet 1 - 2 tab PO DIRECTED PRN (Reason: Pain) RF: 0 alendronate 70 mg tablet 70 mg PO WK RF: 0 amitriptyline 25 mg tablet 25 mg PO HS RF: 0 montelukast 10 mg tablet 10 mg PO HS RF: 0 lisinopril 5 mg tablet 5 mg PO QAM RF: 0 gabapentin 100 mg capsule 100 mg PO TID RF: 0 albuterol sulfate [Ventolin HFA] 90 mcg/actuation Hfa Aerosol Inhaler 2 puff INHALATION QID PRN (Reason: Shortness Of Breath Or Wheezing) RF: 0 cholecalciferol (vitamin D3) [Vitamin D3] 5,000 unit Tablet 5,000 unit PO HS RF: 0 atorvastatin 20 mg tablet 20 mg PO DAILY RF: 0 Referrals Referrals: Giorgio Salas, [Primary Care Provider] -
[2020-06-27 20:17] LABS: INR 3.8 (0.9-1.1); Partial Thromboplastin Ratio 1.5; Prothrombin Time 37.7 Seconds (9.0-12.0)
[2020-06-27 20:24] LABS: Alanine Aminotransferase 14 U/L (12-78); Albumin Level 3.4 gm/dl (3.4-5.0); Aspartate Aminotransferase 17 U/L (15-37); BUN Creatinine Ratio 13.9 (10-20); Blood Urea Nitrogen 14 mg/dl (7-18); Calcium 9.3 mg/dl (8.5-10.1); Carbon Dioxide 32 mmol/L (21-32); Chloride 106 mmol/L (98-107); Creatinine Clr Calc Pharmacy 52.8 ml/min; Est GFR (African American) 61.7; Est GFR (Non-African American) 53.3; Glucose 85 mg/dl (70-99); Potassium 4.1 mmol/L (3.5-5.1); Sodium 140 mmol/L (136-145)
[2020-06-27 20:26] LABS: Macrocytosis Present
[2020-06-27 20:29] LABS: Albumin Globulin Ratio 0.9 (0.9-2); Alkaline Phosphatase 80 U/L (45-117); Bilirubin,Total 0.8 mg/dl (0.2-1); Globulin 3.9 gm/dl (2.5-4.0); NT Pro B Type Natriuretic Pept 1876 pg/ml (0-1800); Total Protein 7.3 gm/dl (6.4-8.2); Troponin I < 0.015 ng/ml (0-0.045)
[2020-06-27 20:44] LABS: Base Excess VBG 2.8 mEq/L; HCO3 VBG 30 mmol/L; PCO2 VBG 61 mmHg (38-50); PO2 VBG 34 mmHg; pH VBG 7.31 (7.36-7.41)
[2020-06-27 20:45] LABS: Oxygen Saturation VBG < 60.0 %
[2020-06-27] MEDS ORDERED: FUROSEMIDE 40 MG/4 ML VIAL IV STA (21:18)
[2020-06-27] MEDS ORDERED: ALBUT/IPRATROP 3MG/0.5MG NEB 3 ML VIAL NEB STA (21:18)
[2020-06-27 22:07] LABS: Appearance Urine Cloudy (Clear); Bacteria Urine Automated 3+ (Negative); Bilirubin Urine Negative (Negative); Blood Urine 3+ (Negative); Color Urine Yellow; Epithelial Cell Urine Auto 20-30 /lpf (0-5); Glucose Urine UA Negative (Negative); Ketones Urine Negative (Negative); Leukocyte Esterase Urine 3+ (Negative); Nitrite Urine Positive (Negative); Protein Urine Negative (Negative); Specific Gravity Urine 1.018 (1.000-1.030); Urobilinogen Urine Negative (Negative); WBC Urine Automated >30 /hpf (0-5)
[2020-06-27] MEDS ORDERED: cefTRIAXone SODIUM 1,000 MG/50 ML BAG IV STA (22:22)
[2020-06-27] MEDS ORDERED: carvediloL 12.5 MG TAB PO STA (23:03)
--- NOTE | 2020-06-28 00:55 | History & Physical Report ---
Date of Service June 28, 2020 Assessment & Plan (1) Acute hypoxemic respiratory failure: Acute hypoxemic, hypercapnic respiratory failure History nocturnal hypoxemia as per records on home O2 secondary to asthma exacerbation A. fib/PE/DVT on Coumadin Patient NSR INR supratherapeutic hx CAD as per records Chronic LBBB hypertension, elevated secondary to illness hyperlipidemia on statin Rx hypothyroidism. Euthyroid as of recent outpatient TSH Chronic anemia, hemoglobin better than baseline Asymptomatic pyuria, no sepsis Medical telemetry Supplemental O2 Steroid course, nebs RTC Follow-up ABG to document improvement following initial ABG Pulmonary consult if without improvement in a.m. Needed home BP meds Hold off on antibiotics for now for asymptomatic pyuria Basal insulin, ISS BG goal [id number] for anticipated hyperglycemia following steroid Rx DVT prophylaxis. Coumadin INR goal between 2 and 3 Full code Total critical care time was 40 minutes. Text document was generated using [employer] voice recognition software. It may contain grammatical or spelling errors. Kindly contact undersigned for clarification of any documentation item in question. History of Present Illness Chief Complaint: Cough, shortness of breath Primary Care Provider: Giorgio Salas, History obtained from patient and records. Medical history significant for asthma, A. fib/PE/DVT on Coumadin, CAD as per records, chronic LBBB, hypertension, hyperlipidemia, nocturnal hypoxemia as per records, hypothyroidism, chronic anemia (baseline hemoglobin of 10), chronic back pain Last confinement July 2019 for intractable headache. One week history of dry cough symptoms without fever without chills. Worsening shortness of breath. Feels like an asthma attack as per patient. No known recent COVID-19 contacts. Denies unusual fluid retention. At the ER, patient given Lasix for possible CHF. Given Ceftriaxone for possible UTI. 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 Allergies Allergy/AdvReac Type Severity Reaction Status Date / Time aspirin Allergy Unknown Unknown Verified 06/27/20 23:59 Sulfa (Sulfonamide Allergy Unknown Unknown Verified 06/27/20 23:59 Antibiotics) Home Medications Home Medications Medication Instructions Recorded Confirmed Type albuterol sulfate [Ventolin HFA] 2 puff INHALATION QID PRN 03/25/19 11/09/20 History alendronate 70 mg PO WK 11/10/18 06/27/20 History amitriptyline 25 mg PO HS 11/10/18 06/27/20 History carvedilol 12.5 mg PO BID 11/10/18 06/27/20 History cholecalciferol (vitamin D3) 5,000 unit PO HS 11/10/18 06/27/20 History [Vitamin D3] gabapentin 100 mg PO TID 11/10/18 06/27/20 History hydrocodone-acetaminophen 1 - 2 tab PO DIRECTED PRN 11/10/18 06/27/20 History lisinopril 5 mg PO QAM 11/10/18 06/27/20 History montelukast 10 mg PO HS 11/10/18 06/27/20 History duloxetine 30 mg PO HS 02/28/19 06/27/20 History fluticasone propion-salmeterol 1 inh INHALATION BID 03/03/19 06/27/20 History [Advair Diskus] pantoprazole 40 mg PO DAILY 07/22/19 06/27/20 History atorvastatin 20 mg PO DAILY 10/11/19 06/27/20 History levothyroxine 50 mcg PO HS 01/15/20 06/27/20 History warfarin [Jantoven] See Rx Instructions .ROUTE .COMPLEX 01/15/20 06/27/20 History sumatriptan succinate 100 mg PO UD PRN 06/27/20 06/27/20 History warfarin [Jantoven] 1 mg PO UD 06/27/20 06/27/20 History Past Med/Surg History Medical History (Updated 06/28/20 @ 09:29 by Len Orellana MD) Asthma USES PRN INH 1 X WK Atrial flutter PT COULD NOT CONFIRM History of DVT (deep vein thrombosis) RLE - 20 YEARS AGO FOLLOWING INJURY History of endometriosis History of VT (myocardial infarction) 2017 - FOLLOWS W/ DR. JACOBSEN Hypertension Hypothyroidism Migraine On anticoagulant therapy On home oxygen therapy 2 LPM 02 QHS Osteoarthritis Osteoporosis Poor historian Pulmonary embolism (10/10/12) 20 YEARS AGO AFTER INJURY 30 YEARS AGO - POST OP CHOLEYCYSTECTOMY ON WARFARIN Sleep apnea NO DEVICE Surgical History History of appendectomy History of cardiac cath 2018 - [place] - NO STENTS History of cataract surgery History of section History of cholecystectomy History of colonoscopy History of esophagogastroduodenoscopy (EGD) History of left knee surgery History of tonsillectomy History of total abdominal hysterectomy and bilateral salpingo-oophorectomy History of tubal ligation Family History Father Esophageal cancer Social History Smoking Status: Never smoker Second Hand Exposure: Yes (FAMILY MEMBERS CURRENTLY SMOKE); Hx Alcohol Use: No Hx Substance Use: No Preferred Language: Gabonese Communication Ability: Effective Visual Impairment: No Limitations Hearing Ability: Normal Finish Machine Tender Required: No Beliefs That Will Affect Care: None marital status: Current Living Situation: Spouse current occupational status: retired Feels Safe at Home: Yes Assistive Devices: Cane, Denture - Upper, Denture - Lower, Glasses, Walker and Wheelchair Review of Systems Review of Systems: As per HPI, all 10 systems reviewed, all other ROS negative Physical Exam Physical Exam: GENERAL: Slightly uncomfortable, obese, pleasant, looks younger for stated age, minimal respiratory distress SKIN: Pallor, warm HEENT: Pale palpebral conjunctivae, no ptosis, dry buccal mucosa, nasal cannula in place NECK : Supple, short neck, no tenderness CHEST : Decreased breath sounds, expiratory wheezes, no tenderness HEART : RRR, no obvious murmurs ABDOMEN: Some distention, nontender EXTREMITIES : Minimal LE swelling, no LE tenderness, no other conspicuous deformities noted NEUROLOGIC : Coherent, no facial asymmetry, no other gross focality Results & Data Results & Data ([facility]) Vital Signs (Past 12 Hours) Vital Signs Temp Pulse Pulse Resp BP BP Pulse Ox 06/27/20 23:28 78 20 161/99 H 96 06/27/20 21:52 94 H 21 99 06/27/20 21:12 112 H 22 162/113 H 96 06/27/20 19:52 95 06/27/20 19:22 37 C 93 H 22 160/84 H 90 Laboratory Results Laboratory Results WBC 6.01 K/uL (4.8-10.8) 06/27/20 19:50 RBC 3.32 M/uL (4.2-5.4) L 06/27/20 19:50 Hgb 11.8 g/dL (12.0-16.0) L 06/27/20 19:50 Hct 36.7 % (37-47) L 06/27/20 19:50 MCV 110.5 fL (80-100) H 06/27/20 19:50 MCH 35.5 pg (25-34) H 06/27/20 19:50 MCHC 32.2 g/dL (32-36) 06/27/20 19:50 RDW Std Deviation 53.4 fL (36.4-46.3) H 06/27/20 19:50 RDW Coeff of Vijay 13.1 % (11.5-14.5) 06/27/20 19:50 Plt Count 212 K/uL (130-400) 06/27/20 19:50 MPV 10.1 fL (7.4-10.4) 06/27/20 19:50 Immature Gran % (Auto) 0.2 % 06/27/20 19:50 Neut % (Auto) 60.5 % 06/27/20 19:50 Lymph % (Auto) 25.8 % 06/27/20 19:50 Lawrence % (Auto) 5.8 % 06/27/20 19:50 Eos % (Auto) 7.2 % 06/27/20 19:50 Baso % (Auto) 0.5 % 06/27/20 19:50 Neut # (Auto) 3.64 K/uL (1.4-6.5) 06/27/20 19:50 Lymph # (Auto) 1.55 K/uL (1.2-3.4) 06/27/20 19:50 Lawrence # (Auto) 0.35 K/uL (0.11-0.59) 06/27/20 19:50 Eos # (Auto) 0.43 K/uL (0-0.5) 06/27/20 19:50 Baso # (Auto) 0.03 K/uL (0-0.2) 06/27/20 19:50 Immature Gran # (Auto) 0.01 K/uL (0.00-0.02) 06/27/20 19:50 Macrocytosis Present 06/27/20 19:50 PT 37.7 Seconds (9.0-12.0) H 06/27/20 19:50 INR 3.8 (0.9-1.1) H 06/27/20 19:50 APTT 41.0 Seconds (21.0-31.0) H 06/27/20 19:50 PTT Ratio 1.5 06/27/20 19:50 VBG pH 7.31 (7.36-7.41) L 06/27/20 20:16 VBG pCO2 61 mmHg (38-50) H 06/27/20 20:16 VBG pO2 34 mmHg 06/27/20 20:16 VBG HCO3 30 mmol/L 06/27/20 20:16 VBG O2 Saturation < 60.0 % 06/27/20 20:16 VBG Base Excess 2.8 mEq/L 06/27/20 20:16 Barometric Pressure 740.7 mm/Hg 06/27/20 20:16 Sodium 140 mmol/L (136-145) 06/27/20 19:50 Potassium 4.1 mmol/L (3.5-5.1) 06/27/20 19:50 Chloride 106 mmol/L (98-107) 06/27/20 19:50 Carbon Dioxide 32 mmol/L (21-32) 06/27/20 19:50 Anion Gap 2.0 (3-11) L 06/27/20 19:50 BUN 14 mg/dl (7-18) 06/27/20 19:50 Creatinine 1.01 mg/dl (0.6-1.2) 06/27/20 19:50 Est Cr Clr Drug Dosing 52.8 ml/min 06/27/20 19:50 Est GFR ( Amer) 61.7 06/27/20 19:50 Est GFR (Non-Af Amer) 53.3 06/27/20 19:50 BUN/Creatinine Ratio 13.9 (10-20) 06/27/20 19:50 Glucose 85 mg/dl (70-99) 06/27/20 19:50 Calcium 9.3 mg/dl (8.5-10.1) 06/27/20 19:50 Magnesium 2.0 mg/dl (1.8-2.4) 06/27/20 19:50 Total Bilirubin 0.8 mg/dl (0.2-1) 06/27/20 19:50 AST 17 U/L (15-37) 06/27/20 19:50 ALT 14 U/L (12-78) 06/27/20 19:50 Alkaline Phosphatase 80 U/L (45-117) 06/27/20 19:50 Troponin I < 0.015 ng/ml (0-0.045) 06/27/20 19:50 NT-Pro-B Natriuret Pep 1876 pg/ml (0-1800) H 06/27/20 19:50 Total Protein 7.3 gm/dl (6.4-8.2) 06/27/20 19:50 Albumin 3.4 gm/dl (3.4-5.0) 06/27/20 19:50 Globulin 3.9 gm/dl (2.5-4.0) 06/27/20 19:50 Albumin/Globulin Ratio 0.9 (0.9-2) 06/27/20 19:50 Urine Color Yellow 06/27/20 21:50 Urine Appearance Cloudy (Clear) A 06/27/20 21:50 Urine pH 6.0 (4.5-7.5) 06/27/20 21:50 Ur Specific [place] 1.018 (1.000-1.030) 06/27/20 21:50 Urine Protein Negative (Negative) 06/27/20 21:50 Urine Glucose (UA) Negative (Negative) 06/27/20 21:50 Urine Ketones Negative (Negative) 06/27/20 21:50 Urine Blood 3+ (Negative) H 06/27/20 21:50 Urine Nitrite Positive (Negative) A 06/27/20 21:50 Urine Bilirubin Negative (Negative) 06/27/20 21:50 Urine Urobilinogen Negative (Negative) 06/27/20 21:50 Ur Leukocyte Esterase 3+ (Negative) H 06/27/20 21:50 Urine WBC (Auto) >30 /hpf (0-5) H 06/27/20 21:50 Urine RBC (Auto) 5-10 /hpf (0-4) H 06/27/20 21:50 U Hyaline Cast (Auto) 10-30 /lpf (0-5) H 06/27/20 21:50 U Epithel Cells (Auto) 20-30 /lpf (0-5) H 06/27/20 21:50 Urine Bacteria (Auto) 3+ (Negative) H 06/27/20 21:50 COVID-19 Eval Order Covid19 Done at [facility] 06/27/20 23:15 COVID-19 PCR NEGATIVE (Negative) 06/27/20 23:15 Diagnostic Findings Chest x-ray : No active disease in the chest. EKG as per my interpretation : Rate 90, NSR, normal axis, LBBB
[2020-06-28] MEDS ORDERED: CARBOHYDRATES FOR HYPOGLYCEMIA PO PRN (05:21)
[2020-06-28] MEDS ORDERED: MAGNESIUM SULFATE / D5W 1 GM/100 ML BAG IV ONE (05:21)
[2020-06-28] MEDS ORDERED: XOPENEX/ATROVENT 1.25mg/0.5MG NEB COMBO NEB SCH (05:21)
[2020-06-28] MEDS ORDERED: GLUCOSE 10 TABS/TUBE PO PRN (05:21)
[2020-06-28] MEDS ORDERED: PROMETHAZINE HCL 6.25 MG in SODIUM CHLORIDE 0.9% 50 ML IV PRN (05:21)
[2020-06-28] MEDS ORDERED: GLUCAGON FOR INJ 1 MG VIAL SQ PRN (05:21)
[2020-06-28] MEDS ORDERED: GLUCOSE 40% GEL 15 GM TUBE PO PRN (05:21)
[2020-06-28] MEDS ORDERED: DEXTROSE 50% 50 ML SYRINGE IV PRN (05:21)
[2020-06-28] MEDS ORDERED: INSULIN GLARGINE SOLOSTAR 100 UNITS/ML 3 ML PEN SQ STA (05:33)
[2020-06-28] MEDS ORDERED: HYDROCODONE/ACETAMOPHEN 5/325MG TAB PO PRN (05:36)
[2020-06-28] MEDS: guaiFENesin 600 MG TABCR PO SCH ×3 (06:16→20:17)
[2020-06-28] MEDS: INSULIN ASPART 100 UNITS/ML 3 ML PEN SC SCH ×5 (06:16→20:51)
[2020-06-28 06:35] LABS: Allen Test Pos (Pos); Base Excess ABG 6.6 mEq/L (-9-1.8); HCO3 ABG 32 mmol/L (19-24); PCO2 ABG 47 mmHg (35-46); PO2 ABG 91 mmHg (80-95); pH ABG 7.44 (7.35-7.45)
[2020-06-28] MEDS: LEVALBUTEROL 1.25MG/0.5ML NEB INH SCH ×3 (07:08→19:17)
[2020-06-28] MEDS: IPRATROPIUM BROMIDE NEB SOLN 0.02% 2.5 ML VIAL INH SCH ×3 (07:08→19:17)
[2020-06-28] MEDS: ATORVASTATIN 20 MG TAB PO SCH (08:16)
[2020-06-28] MEDS: GABAPENTIN 100 MG CAP PO SCH ×3 (08:16→20:17)
[2020-06-28] MEDS: lisinopril 5 MG TAB PO SCH (08:17)
[2020-06-28] MEDS: carvediloL 12.5 MG TAB PO SCH ×2 (08:17→20:17)
[2020-06-28] MEDS: PANTOprazole 40 MG TAB PO SCH (08:17)
[2020-06-28] MEDS: FLUTICASONE/VILANTEROL 100/25MCG 14 PUFFS/INHALER INH SCH (08:18)
[2020-06-28] MEDS: methylPREDNISolone 40 MG in SYRINGE 0 ML IV SCH (08:20)
[2020-06-28] MEDS ORDERED: methylPREDNISolone 40 MG in SYRINGE 0 ML IV SCH (09:00)
[2020-06-28] MEDS ORDERED: carvediloL 12.5 MG TAB PO SCH (09:00)
--- NOTE | 2020-06-28 11:44 | Electrocardiogram Report ---
Test Reason : Blood Pressure : / mmHG Vent. Rate : 090 BPM Atrial Rate : 090 BPM P-R Int : 194 ms QRS Dur : 134 ms QT Int : 398 ms P-R-T Axes : 078 -05 104 degrees QTc Int : 486 ms Normal sinus rhythm Left bundle branch block Abnormal ECG When compared with ECG of 15-JAN-2020 17:42, Nonspecific T wave abnormality no longer evident in Inferior leads T wave inversion less evident in Anterolateral leads Confirmed by Mina Boogie ([id number]) on 06/28/2020 11:44:12 AM Referred By: REFERRED SELF Confirmed By:Mina Boogie
[2020-06-28] MEDS: MONTELUKAST SODIUM 10 MG TABLET PO SCH (20:16)
[2020-06-28] MEDS: INSULIN GLARGINE SOLOSTAR 100 UNITS/ML 3 ML PEN SC SCH (20:16)
[2020-06-28] MEDS: DULoxetine HCL 30 MG CAP PO SCH (20:17)
[2020-06-28] MEDS: AMITRIPTYLINE HCL 25 MG TAB PO SCH (20:17)
[2020-06-28] MEDS: LEVOTHYROXINE SODIUM 50 MCG TABLET PO SCH (20:17)
[2020-06-29] MEDS: IPRATROPIUM BROMIDE NEB SOLN 0.02% 2.5 ML VIAL INH SCH ×4 (00:48→19:46)
[2020-06-29] MEDS: LEVALBUTEROL 1.25MG/0.5ML NEB INH SCH ×4 (00:48→19:46)
--- NOTE | 2020-06-29 01:26 | Hospitalist Progress Note ---
Date of Service June 28, 2020 Assessment & Plan (1) Acute hypoxemic respiratory failure: Acute hypoxemic, hypercapnic respiratory failure History nocturnal hypoxemia as per records on home O2 secondary to asthma exacerbation A. fib/PE/DVT on Coumadin Patient NSR INR supratherapeutic hx CAD as per records Chronic LBBB hypertension, elevated secondary to illness hyperlipidemia on statin Rx hypothyroidism. Euthyroid as of recent outpatient TSH Chronic anemia, hemoglobin better than baseline Asymptomatic pyuria, no sepsis Medical telemetry Supplemental O2 Steroid course, nebs RTC Follow-up ABG to document improvement following initial ABG Pulmonary consult if without improvement in a.m. Needed home BP meds Hold off on antibiotics for now for asymptomatic pyuria Basal insulin, ISS BG goal [id number] for anticipated hyperglycemia following steroid Rx DVT prophylaxis. Coumadin INR goal between 2 and 3 Full code Admission and Anticipated Discharge Date Admission Date: June 28, 2020 Subjective Pt is lying in bed in nad. reports shortness of breath and cough but says she feels much better now. No fever, chills, chest pain, abd. pain, n/v. Review of Systems Review of Systems: All systems reviewed & are unremarkable except as noted in HPI & below Constitutional: no fever and no chills Respiratory: + cough and + dyspnea Cardiovascular: no chest pain and no palpitations Gastrointestinal: no abdominal pain and no vomiting Physical Exam Physical Exam: GENERAL: elderly female laying in bed, in NAD, on suppl. O2 2L HEENT: NC/AT, pale palpebral conjunctivae, no ptosis, nasal cannula in place NECK : Supple, short neck, no tenderness CHEST : Decreased breath sounds, mild expiratory wheezes, no tenderness HEART : RRR, no obvious murmurs ABDOMEN: Some distention, nontender, soft EXTREMITIES : Minimal LE swelling, no LE tenderness, moves extremities spontaneously SKIN: warm, dry NEUROLOGIC : alert and oriented x3, no facial asymmetry, moves extremities Results & Data Results & Data ([facility]) Vital Signs (Past 12 Hours) Vital Signs Temp Pulse Pulse Pulse Resp BP BP 06/29/20 00:48 82 16 06/29/20 00:00 87 06/28/20 23:04 36.8 C 88 18 138/83 06/28/20 19:25 36.7 C 101 H 18 151/78 H 06/28/20 19:18 98 H 16 06/28/20 17:30 105 H 06/28/20 15:50 37.1 C 100 H 18 154/89 H 06/28/20 13:27 103 H 18 Pulse Ox 06/29/20 00:48 91 06/29/20 00:00 06/28/20 23:04 90 06/28/20 19:25 93 06/28/20 19:18 94 06/28/20 17:30 06/28/20 15:50 95 06/28/20 13:27 89 L
[2020-06-29] MEDS ORDERED: SUMAtriptan succinate 25 MG TAB PO STA (05:32)
[2020-06-29 07:30] LABS: INR 2.3 (0.9-1.1); Prothrombin Time 23.4 Seconds (9.0-12.0)
[2020-06-29 07:36] LABS: Hematocrit (blood only) 32.4 % (37-47); Hemoglobin 10.7 g/dL (12.0-16.0); Immature Granulocytes # (auto) 0.01 K/uL (0.00-0.02); Immature Granulocytes % (auto) 0.2 %; Lymphocytes # (auto) 0.69 K/uL (1.2-3.4); Lymphocytes % (auto) 14.8 %; Mean Corpuscular Hemoglobin 34.6 pg (25-34); Mean Corpuscular Volume 104.9 fL (80-100); Mean Platelet Volume 10.1 fL (7.4-10.4); Monocytes # (auto) 0.21 K/uL (0.11-0.59); Monocytes % (auto) 4.5 %; Neutrophils # (auto) 3.76 K/uL (1.4-6.5); Neutrophils % (auto) 80.5 %; Platelet Count 215 K/uL (130-400); RDW Coefficient of Variation 13.1 % (11.5-14.5); Red Blood Count 3.09 M/uL (4.2-5.4); White Blood Count 4.67 K/uL (4.8-10.8)
[2020-06-29 07:40] LABS: BUN Creatinine Ratio 16.8 (10-20); Calcium 9.1 mg/dl (8.5-10.1); Creatinine Clr Calc Pharmacy 46.4 ml/min; Est GFR (African American) 56.3; Est GFR (Non-African American) 48.6; Potassium 3.7 mmol/L (3.5-5.1)
[2020-06-29] MEDS: methylPREDNISolone 40 MG in SYRINGE 0 ML IV SCH (10:05)
[2020-06-29] MEDS: PANTOprazole 40 MG TAB PO SCH (10:06)
[2020-06-29] MEDS: carvediloL 12.5 MG TAB PO SCH ×2 (10:06→21:23)
[2020-06-29] MEDS: guaiFENesin 600 MG TABCR PO SCH ×2 (10:06→21:22)
[2020-06-29] MEDS: ATORVASTATIN 20 MG TAB PO SCH (10:06)
[2020-06-29] MEDS: lisinopril 5 MG TAB PO SCH (10:06)
[2020-06-29] MEDS: GABAPENTIN 100 MG CAP PO SCH ×3 (10:07→21:22)
[2020-06-29] MEDS: FLUTICASONE/VILANTEROL 100/25MCG 14 PUFFS/INHALER INH SCH (10:08)
[2020-06-29] MEDS: INSULIN ASPART 100 UNITS/ML 3 ML PEN SC SCH ×4 (10:10→21:27)
--- NOTE | 2020-06-29 16:18 | Hospitalist Progress Note ---
Date of Service June 29, 2020 Assessment & Plan (1) Acute hypoxemic respiratory failure: Secondary to asthma [id number] History nocturnal hypoxemia as per records on home O2 Supplemental O2 as needed Steroid course, nebs RTC Clinically much better PT and OT evaluation and to do steps O2 saturation before discharge A. fib/PE/DVT on Coumadin Patient NSR INR is 2.3 as of 06/29/2020 Will restart anticoagulation CAD as per records-no acute symptoms Chronic LBBB Hypertension, elevated secondary to illness-has been normalized Hypothyroidism. Euthyroid as of recent outpatient TSH Chronic anemia, hemoglobin better than baseline Asymptomatic pyuria, no sepsis-hold off any antibiotic for now DVT prophylaxis. Coumadin INR goal between 2 and 3 Full code Admission and Anticipated Discharge Date Admission Date: June 28, 2020 Subjective The patient was seen and examined in medical telemetry unit She has been feeling a lot better as of this morning She denies any acute symptoms at rest and has been ambulating in the room without any shortness of breath Review of Systems Review of Systems: All systems reviewed and are unremarkable except as noted below Respiratory: no cough, no dyspnea and no dyspnea on exertion Cardiovascular: no chest pain and no palpitations Gastrointestinal: no abdominal pain, no bloating, no nausea and no vomiting Musculoskeletal: Denies any acute joint pain Physical Exam Physical Exam: Lying in bed comfortably Constitutional: well developed, well nourished and + obese; no acute distress Eyes: PERRL, conjunctivae normal, anicteric sclerae ENMT: external ear and nose normal, oropharynx normal Neck: trachea midline, no thyromegaly Respiratory: no respiratory distress Auscultation: lungs clear to auscultation bilaterally and + diminished lung sounds (Minimal decrease in lung sounds without any wheezing and/or crackckles) Cardiovascular: Rate/Rhythm: regular rate and regular rhythm Heart Sounds: no murmur Gastrointestinal (Abdomen): Inspection/Auscultation: abdomen not distended Percussion/Palpation: abdomen soft; abdomen nontender Musculoskeletal: No acute arthritis involving any joint Neurologic: Alert, awake and oriented x3 Results & Data Results & Data ([facility]) Vital Signs (Past 12 Hours) Vital Signs Temp Pulse Pulse Resp BP BP Pulse Ox 06/29/20 16:00 36.9 C 90 18 133/64 91 06/29/20 13:51 89 20 86 L 06/29/20 12:09 36.7 C 55 L 20 148/78 H 92 06/29/20 08:14 36.8 C 86 18 168/82 H 93 06/29/20 08:00 89 06/29/20 07:23 80 18 92 Laboratory Results Short CBC 06/29/20 Range/Units 06:55 WBC 4.67 L (4.8-10.8) K/uL Hgb 10.7 L (12.0-16.0) g/dL Hct 32.4 L (37-47) % Plt Count 215 (130-400) K/uL BMP 06/29/20 06:54 Sodium 138 Potassium 3.7 Chloride 102 Carbon Dioxide 31 BUN 18 Creatinine 1.09 Glucose 102 H Calcium 9.1 Medications Administered Current Inpatient Medications Acetaminophen (Acetaminophen 325 Mg Tab) 650 mg PO Q4H PRN PRN Reason: Pain or Fever Stop: 07/28/20 05:20 Hydrocodone Bitart/Acetaminophen (Hydrocodone/Acetamophen 5/325mg Tab) 1 tab PO QID PRN PRN Reason: Pain Stop: 07/12/20 05:35 Last Admin: 06/28/20 20:20 Dose: 1 tab Documented by: Amitriptyline HCl (Amitriptyline Hcl 25 Mg Tab) 25 mg PO HS TRACI Stop: 07/28/20 20:59 Last Admin: 06/28/20 20:17 Dose: 25 mg Documented by: Atorvastatin Calcium (Atorvastatin 20 Mg Tab) 20 mg PO DAILY TRACI Stop: 07/28/20 08:59 Last Admin: 06/29/20 10:06 Dose: 20 mg Documented by: Carvedilol (Carvedilol 12.5 Mg Tab) 12.5 mg PO BID TRACI Stop: 07/28/20 07:04 Last Admin: 06/29/20 10:06 Dose: 12.5 mg Documented by: Dextrose (Dextrose 50% 50 Ml Syringe) 25 - 50 ml IV UD PRN; Protocol PRN Reason: Hypoglycemia Protocol Stop: 07/28/20 05:20 Duloxetine HCl (Duloxetine Hcl 30 Mg Cap) 30 mg PO HS TRACI Stop: 07/28/20 20:59 Last Admin: 06/28/20 20:17 Dose: 30 mg Documented by: Fluticasone/Vilanterol (Fluticasone/Vilanterol 100/25mcg 14 Puffs/Inhaler) 1 puffs INH DAILY TRACI Stop: 07/28/20 08:59 Last Admin: 06/29/20 10:08 Dose: 1 puffs Documented by: Gabapentin (Gabapentin 100 Mg Cap) 100 mg PO TID TRACI Stop: 07/28/20 08:59 Last Admin: 06/29/20 13:25 Dose: 100 mg Documented by: Glucagon (Glucagon For Inj 1 Mg Vial) 1 mg SQ UD PRN; Protocol PRN Reason: Hypoglycemia Protocol Stop: 07/28/20 05:20 Glucose (Glucose 10 Tabs/Tube) 4 - 8 tabs PO UD PRN; Protocol PRN Reason: Hypoglycemia Protocol Stop: 07/28/20 05:20 Glucose (Glucose 40% Gel 15 Gm Tube) 15 - 30 gm PO UD PRN; Protocol PRN Reason: Hypoglycemia Protocol Stop: 07/28/20 05:20 Guaifenesin (Guaifenesin 600 Mg Tabcr) 600 mg PO Q12 TRACI Stop: 07/28/20 05:20 Last Admin: 06/29/20 10:06 Dose: 600 mg Documented by: Promethazine HCl 6.25 mg/ (Sodium Chloride) 50.25 mls @ 201 mls/hr IV Q6H PRN PRN Reason: Nausea And Vomiting Stop: 07/28/20 05:20 Methylprednisolone 40 mg/ (Syringe) 0.64 mls @ 1.5 mls/min IV DAILY TRACI Stop: 07/28/20 08:59 Last Admin: 06/29/20 10:05 Dose: 1.5 mls/min Documented by: Insulin Aspart (Insulin Aspart 100 Units/Ml 3 Ml Pen) 0 units SC ACHS TRACI Stop: 07/28/20 05:20 Last Admin: 06/29/20 13:28 Dose: Not Given Documented by: Insulin Glargine (Insulin Glargine Solostar 100 Units/Ml 3 Ml Pen) 5 units SC HS TRACI Stop: 07/28/20 20:59 Last Admin: 06/28/20 20:16 Dose: 5 units Documented by: Ipratropium Swatara (Ipratropium Swatara Neb Soln 0.02% 2.5 Ml Vial) 0.5 mg INH Q6R TRACI Stop: 07/28/20 06:59 Last Admin: 06/29/20 13:49 Dose: 0.5 mg Documented by: Levalbuterol HCl (Levalbuterol 1.25mg/0.5ml Neb) 1.25 mg INH Q6R [facility] Stop: 07/28/20 06:59 Last Admin: 06/29/20 13:47 Dose: 1.25 mg Documented by: Levothyroxine Sodium (Levothyroxine Sodium 50 Mcg Tablet) 50 mcg PO HS [facility] Stop: 07/28/20 20:59 Last Admin: 06/28/20 20:17 Dose: 50 mcg Documented by: Lisinopril (Lisinopril 5 Mg Tab) 5 mg PO QAM [facility] Stop: 07/28/20 08:59 Last Admin: 06/29/20 10:06 Dose: 5 mg Documented by: Miscellaneous (Carbohydrates For Hypoglycemia ) 15 - 30 gm PO UD PRN PRN Reason: Hypoglycemia Protocol Stop: 07/28/20 05:20 Montelukast Sodium (Montelukast Sodium 10 Mg Tablet) [address] [facility] Stop: 07/28/20 20:59 Last Admin: 06/28/20 20:16 Dose: 10 mg Documented by: Pantoprazole Sodium (Pantoprazole 40 Mg Tab) 40 mg PO DAILY [facility] Stop: 07/28/20 08:59 Last Admin: 06/29/20 10:06 Dose: 40 mg Documented by:
[2020-06-29] MEDS ORDERED: WARFARIN SOD 2.5 MG TAB PO SCH (16:45)
[2020-06-29] MEDS: ACETAMINOPHEN 325 MG TAB PO PRN (19:17)
[2020-06-29] MEDS ORDERED: COUGH DROP (SUGAR FREE) LOZ 24 LOZ/1 BOX BUCCAL STA (19:21)
[2020-06-29] MEDS: LEVOTHYROXINE SODIUM 50 MCG TABLET PO SCH (21:21)
[2020-06-29] MEDS: MONTELUKAST SODIUM 10 MG TABLET PO SCH (21:21)
[2020-06-29] MEDS: AMITRIPTYLINE HCL 25 MG TAB PO SCH (21:22)
[2020-06-29] MEDS: DULoxetine HCL 30 MG CAP PO SCH (21:22)
[2020-06-29] MEDS: INSULIN GLARGINE SOLOSTAR 100 UNITS/ML 3 ML PEN SC SCH (21:26)
[2020-06-30] MEDS: LEVALBUTEROL 1.25MG/0.5ML NEB INH SCH ×3 (00:22→13:17)
[2020-06-30] MEDS: IPRATROPIUM BROMIDE NEB SOLN 0.02% 2.5 ML VIAL INH SCH ×3 (00:22→13:18)
[2020-06-30] MEDS: ACETAMINOPHEN 325 MG TAB PO PRN (04:06)
[2020-06-30 08:03] LABS: Hematocrit (blood only) 30.2 % (37-47); Hemoglobin 9.7 g/dL (12.0-16.0); Immature Granulocytes # (auto) 0.01 K/uL (0.00-0.02); Immature Granulocytes % (auto) 0.2 %; Lymphocytes # (auto) 0.67 K/uL (1.2-3.4); Lymphocytes % (auto) 10.6 %; Mean Corpuscular Hgb Conc 32.1 g/dL (32-36); Mean Platelet Volume 10.5 fL (7.4-10.4); Monocytes # (auto) 0.28 K/uL (0.11-0.59); Monocytes % (auto) 4.4 %; Neutrophils # (auto) 5.39 K/uL (1.4-6.5); Neutrophils % (auto) 84.8 %; Platelet Count 206 K/uL (130-400); RDW Coefficient of Variation 13.1 % (11.5-14.5); RDW Standard Deviation 51.2 fL (36.4-46.3); Red Blood Count 2.85 M/uL (4.2-5.4); White Blood Count 6.35 K/uL (4.8-10.8)
[2020-06-30 08:12] LABS: Prothrombin Time 20.3 Seconds (9.0-12.0)
[2020-06-30 08:29] LABS: BUN Creatinine Ratio 21.1 (10-20); Calcium 8.7 mg/dl (8.5-10.1); Creatinine Clr Calc Pharmacy 45.1 ml/min; Est GFR (African American) 54.5; Potassium 3.8 mmol/L (3.5-5.1)
[2020-06-30] MEDS: ATORVASTATIN 20 MG TAB PO SCH (08:43)
[2020-06-30] MEDS: GABAPENTIN 100 MG CAP PO SCH (08:44)
[2020-06-30] MEDS: PANTOprazole 40 MG TAB PO SCH (08:44)
[2020-06-30] MEDS: lisinopril 5 MG TAB PO SCH (08:44)
[2020-06-30] MEDS: carvediloL 12.5 MG TAB PO SCH (08:45)
[2020-06-30] MEDS: guaiFENesin 600 MG TABCR PO SCH (08:45)
[2020-06-30] MEDS: FLUTICASONE/VILANTEROL 100/25MCG 14 PUFFS/INHALER INH SCH (08:45)
[2020-06-30] MEDS: methylPREDNISolone 40 MG in SYRINGE 0 ML IV SCH (08:45)
[2020-06-30] MEDS: INSULIN ASPART 100 UNITS/ML 3 ML PEN SC SCH ×2 (09:23→12:42)
[2020-06-30 12:08] VITALS: BP 128/85; TEMP 97.9
--- NOTE | 2020-06-30 12:47 | Hospitalist Progress Note ---
Date of Service June 30, 2020 Assessment & Plan (1) Acute hypoxemic respiratory failure: Secondary to asthma [id number] History nocturnal hypoxemia as per records on home O2 Supplemental O2 as needed Steroid course, nebs RTC Clinically much better PT and OT evaluation and to do steps O2 saturation before dischge She passed to steps O2 saturation test Has had physical therapy evaluation as well She will be discharged this afternoon A. fib/PE/DVT on Coumadin Patient NSR INR is 2.3 as of 06/29/2020 Will restart anticoagulation CAD as per records-no acute symptoms Chronic LBBB Hypertension, elevated secondary to illness-has been normalized Hypothyroidism. Euthyroid as of recent outpatient TSH Chronic anemia, hemoglobin better than baseline Asymptomatic pyuria, no sepsis-hold off any antibiotic for now DVT prophylaxis. Coumadin INR goal between 2 and 3 Full code Admission and Anticipated Discharge Date Admission Date: June 28, 2020 Subjective The patient was seen and examined in medical telemetry unit She has been feeling a lot better as of this morning She denies any acute symptoms at rest and has been ambulating in the room without any shortness of breath 06/30/2020 The patient was seen and examined in medical telemetry unit She has been feeling a lot better today and has had to do steps and physical therapy She will be discharged home this afternoon Review of Systems Review of Systems: All systems reviewed and are unremarkable except as noted below Musculoskeletal: Denies any acute joint pain Physical Exam Physical Exam: Sitting on bed without any acute distress Constitutional: well developed, well nourished and + obese; no acute distress Eyes: PERRL, conjunctivae normal, anicteric sclerae ENMT: external ear and nose normal, oropharynx normal Neck: trachea midline, no thyromegaly Respiratory: no respiratory distress Auscultation: lungs clear to auscultation bilaterally and + diminished lung sounds (Minimal decrease in lung sounds without any wheezing and/or crackckles) Cardiovascular: Rate/Rhythm: regular rate and regular rhythm Heart Sounds: no murmur Gastrointestinal (Abdomen): Inspection/Auscultation: abdomen not distended Percussion/Palpation: abdomen soft; abdomen nontender Musculoskeletal: No acute arthritis in any joint Neurologic: Alert, awake and oriented x3. No focal sensory and motor deficit appreciated Psychiatric: A+Ox3, euthymic affect Results & Data Results & Data ([facility]) Vital Signs (Past 12 Hours) Vital Signs Temp Pulse Pulse Pulse Pulse Pulse Resp 06/30/20 12:08 36.6 C 97 H 18 06/30/20 11:30 79 90 87 06/30/20 07:44 36.8 C 81 16 06/30/20 07:35 73 06/30/20 07:32 86 18 06/30/20 03:27 36.8 C 70 18 Resp Resp Resp BP BP Pulse Ox Pulse Ox 06/30/20 12:08 128/85 95 06/30/20 11:30 18 20 18 91 06/30/20 07:44 152/76 H 98 06/30/20 07:35 06/30/20 07:32 90 06/30/20 03:27 156/80 H 93 Pulse Ox Pulse Ox 06/30/20 12:08 06/30/20 11:30 91 93 06/30/20 07:44 06/30/20 07:35 06/30/20 07:32 06/30/20 03:27 Laboratory Results Short CBC 06/30/20 Range/Units 06:46 WBC 6.35 (4.8-10.8) K/uL Hgb 9.7 L (12.0-16.0) g/dL Hct 30.2 L (37-47) % Plt Count 206 (130-400) K/uL BMP 06/30/20 06:46 Sodium 139 Potassium 3.8 Chloride 104 Carbon Dioxide 30 BUN 24 H Creatinine 1.12 Glucose 96 Calcium 8.7 Medications Administered Current Inpatient Medications Acetaminophen (Acetaminophen 325 Mg Tab) 650 mg PO Q4H PRN PRN Reason: Pain or Fever Stop: 07/28/20 05:20 Last Admin: 06/30/20 04:06 Dose: 650 mg Documented by: Hydrocodone Bitart/Acetaminophen (Hydrocodone/Acetamophen 5/325mg Tab) 1 tab PO QID PRN PRN Reason: Pain Stop: 07/12/20 05:35 Last Admin: 06/28/20 20:20 Dose: 1 tab Documented by: Amitriptyline HCl (Amitriptyline Hcl 25 Mg Tab) 25 mg PO HS TRACI Stop: 07/28/20 20:59 Last Admin: 06/29/20 21:22 Dose: 25 mg Documented by: Atorvastatin Calcium (Atorvastatin 20 Mg Tab) 20 mg PO DAILY TRACI Stop: 07/28/20 08:59 Last Admin: 06/30/20 08:43 Dose: 20 mg Documented by: Carvedilol (Carvedilol 12.5 Mg Tab) 12.5 mg PO BID TRACI Stop: 07/28/20 07:04 Last Admin: 06/30/20 08:45 Dose: 12.5 mg Documented by: Dextrose (Dextrose 50% 50 Ml Syringe) 25 - 50 ml IV UD PRN; Protocol PRN Reason: Hypoglycemia Protocol Stop: 07/28/20 05:20 Duloxetine HCl (Duloxetine Hcl 30 Mg Cap) 30 mg PO HS TRACI Stop: 07/28/20 20:59 Last Admin: 06/29/20 21:22 Dose: 30 mg Documented by: Fluticasone/Vilanterol (Fluticasone/Vilanterol 100/25mcg 14 Puffs/Inhaler) 1 puffs INH DAILY TRACI Stop: 07/28/20 08:59 Last Admin: 06/30/20 08:45 Dose: 1 puffs Documented by: Gabapentin (Gabapentin 100 Mg Cap) 100 mg PO TID TRACI Stop: 07/28/20 08:59 Last Admin: 06/30/20 08:44 Dose: 100 mg Documented by: Glucagon (Glucagon For Inj 1 Mg Vial) 1 mg SQ UD PRN; Protocol PRN Reason: Hypoglycemia Protocol Stop: 07/28/20 05:20 Glucose (Glucose 10 Tabs/Tube) 4 - 8 tabs PO UD PRN; Protocol PRN Reason: Hypoglycemia Protocol Stop: 07/28/20 05:20 Glucose (Glucose 40% Gel 15 Gm Tube) 15 - 30 gm PO UD PRN; Protocol PRN Reason: Hypoglycemia Protocol Stop: 07/28/20 05:20 Guaifenesin (Guaifenesin 600 Mg Tabcr) 600 mg PO Q12 [facility]ACI Stop: 07/28/20 05:20 Last Admin: 06/30/20 08:45 Dose: 600 mg Documented by: Promethazine HCl 6.25 mg/ (Sodium Chloride) 50.25 mls @ 201 mls/hr IV Q6H PRN PRN Reason: Nausea And Vomiting Stop: 07/28/20 05:20 Methylprednisolone 40 mg/ (Syringe) 0.64 mls @ 1.5 mls/min IV DAILY TRACI Stop: 07/28/20 08:59 Last Admin: 06/30/20 08:45 Dose: 1.5 mls/min Documented by: Insulin Aspart (Insulin Aspart 100 Units/Ml 3 Ml Pen) 0 units SC ACHS [facility] Stop: 07/28/20 05:20 Last Admin: 06/30/20 12:42 Dose: Not Given Documented by: Insulin Glargine (Insulin Glargine Solostar 100 Units/Ml 3 Ml Pen) 5 units SC [facility] Stop: 07/28/20 20:59 Last Admin: 06/29/20 21:26 Dose: 5 units Documented by: Ipratropium [place] (Ipratropium [place] Neb Soln 0.02% 2.5 Ml Vial) 0.5 mg INH Q6R [facility] Stop: 07/28/20 06:59 Last Admin: 06/30/20 07:31 Dose: 0.5 mg Documented by: Levalbuterol HCl (Levalbuterol 1.25mg/0.5ml Neb) 1.25 mg INH Q6R [facility] Stop: 07/28/20 06:59 Last Admin: 06/30/20 07:31 Dose: 1.25 mg Documented by: Levothyroxine Sodium (Levothyroxine Sodium 50 Mcg Tablet) 50 mcg PO [facility] Stop: 07/28/20 20:59 Last Admin: 06/29/20 21:21 Dose: 50 mcg Documented by: Lisinopril (Lisinopril 5 Mg Tab) 5 mg PO [facility] Stop: 07/28/20 08:59 Last Admin: 06/30/20 08:44 Dose: 5 mg Documented by: Miscellaneous (Carbohydrates For Hypoglycemia ) 15 - 30 gm PO UD PRN PRN Reason: Hypoglycemia Protocol Stop: 07/28/20 05:20 Montelukast Sodium (Montelukast Sodium 10 Mg Tablet) 10 mg PO [facility] Stop: 07/28/20 20:59 Last Admin: 06/29/20 21:21 Dose: 10 mg Documented by: Pantoprazole Sodium (Pantoprazole 40 Mg Tab) 40 mg PO DAILY [facility] Stop: 07/28/20 08:59 Last Admin: 06/30/20 08:44 Dose: 40 mg Documented by: Warfarin Sodium (Warfarin Sod 5 Mg Tab) 5 mg PO SuMoFrSa@1600 TRACI; Protocol Stop: 07/31/20 15:59 Warfarin Sodium (Warfarin Sod 2.5 Mg Tab) 2.5 mg PO TuWeTh@1600 [facility]ACI; Protocol Stop: 07/29/20 16:44 Last Admin: 06/29/20 17:08 Dose: 2.5 mg Documented by:
[2020-06-30 13:19] VITALS: O2SAT 94
[2020-06-30 13:40] VITALS: PULSE 98
--- NOTE | 2020-07-01 07:49 | Discharge Summary ---
Date of Service July 01, 2020 Admission HPI Per Admitting Provider History obtained from patient and records. Medical history significant for asthma, A. fib/PE/DVT on Coumadin, CAD as per records, chronic LBBB, hypertension, hyperlipidemia, nocturnal hypoxemia as per records, hypothyroidism, chronic anemia (baseline hemoglobin of 10), chronic back pain Last confinement July 2019 for intractable headache. One week history of dry cough symptoms without fever without chills. Worsening shortness of breath. Feels like an asthma attack as per patient. No known recent COVID-19 contacts. Denies unusual fluid retention. At the ER, patient given Lasix for possible CHF. Given Ceftriaxone for possible UTI. 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 Admission Exam Per Admitting Provider Physical Exam: GENERAL: Slightly uncomfortable, obese, pleasant, looks younger for stated age, minimal respiratory distress SKIN: Pallor, warm HEENT: Pale palpebral conjunctivae, no ptosis, dry buccal mucosa, nasal cannula in place NECK : Supple, short neck, no tenderness CHEST : Decreased breath sounds, expiratory wheezes, no tenderness HEART : RRR, no obvious murmurs ABDOMEN: Some distention, nontender EXTREMITIES : Minimal LE swelling, no LE tenderness, no other conspicuous deformities noted NEUROLOGIC : Coherent, no facial asymmetry, no other gross focality Principal Diagnosis Exacerbation of asthma Discharge Exam Constitutional well developed, well nourished and + obese; no acute distress Eyes PERRL, conjunctivae normal, anicteric sclerae ENMT external ear and nose normal, oropharynx normal Neck trachea midline, no thyromegaly Respiratory no respiratory distress Auscultation: lungs clear to auscultation bilaterally and + diminished lung sounds (Minimal decrease in lung sounds without any wheezing and/or crackckles) Cardiovascular Rate/Rhythm: regular rate and regular rhythm Heart Sounds: no murmur Gastrointestinal (Abdomen) Inspection/Auscultation: abdomen not distended Percussion/Palpation: abdomen soft; abdomen nontender Psychiatric A+Ox3, euthymic affect Discharge Data Allergies Allergy/AdvReac Type Severity Reaction Status Date / Time aspirin Allergy Unknown Unknown Verified 06/27/20 23:59 Sulfa (Sulfonamide Allergy Unknown Unknown Verified 06/27/20 23:59 Antibiotics) Consultations 06/27/20 22:55 ED Decision to Admit Stat Hospital Course (1) Acute hypoxemic respiratory failure: Secondary to asthma [id number] History nocturnal hypoxemia as per records on home O2 Supplemental O2 as needed Steroid course, nebs RTC Clinically much better PT and OT evaluation and to do steps O2 saturation before dischge She passed to steps O2 saturation test Has had physical therapy evaluation as well She will be discharged this afternoon A. fib/PE/DVT on Coumadin Patient NSR INR is 2.3 as of 06/29/2020 Will restart anticoagulation CAD as per records-no acute symptoms Chronic LBBB Hypertension, elevated secondary to illness-has been normalized Hypothyroidism. Euthyroid as of recent outpatient TSH Chronic anemia, hemoglobin better than baseline Asymptomatic pyuria, no sepsis-hold off any antibiotic for now DVT prophylaxis. Coumadin INR goal between 2 and 3 Full code Total Time Total Time Spent Total Time Spent (In Minutes): 35 minutes Total Time Includes: Examination of the Patient, Discharge Planning, Medication Reconciliation and Communication With Other Providers Discharge Plan Discharge Items Patient Disposition: Home - Self-Care Reason For Visit: RESP FAILURE, COVID NEG, DC ISOL Discharge Diagnosis: Exacerbation of asthma Condition on Discharge: Good Activity: Resume your previous activity Non-emergency contact: Primary Care Provider Call non-emergency contact if: you have any medication questions and your symptoms worsen Follow-up/Referrals: Giorgio Salas DO [Primary Care Provider] - (Date & Time 07/04/2020 1:40 PM Provider Giorgio Salas DO Department [facility] ) Diet: Heart Healthy Addtl Attending Provider Instructions: Please finish the course of tapering dose of prednisone. Pending Studies at Discharge: No Stand-Alone Forms: [employer], Smoking Cessation Medications and DC Order Prescriptions: New prednisone 10 mg tablet 10 mg PO UD Qty: 30 RF: 0 Continued duloxetine 30 mg capsule,delayed release(DR/EC) 30 mg PO HS RF: 0 fluticasone propion-salmeterol [Advair Diskus] 250-50 mcg/dose Blister With Device 1 inh INHALATION BID RF: 0 pantoprazole 40 mg tablet,delayed release (DR/EC) 40 mg PO DAILY RF: 0 levothyroxine 50 mcg tablet 50 mcg PO HS RF: 0 warfarin [Jantoven] 5 mg tablet See Rx Instructions .ROUTE .COMPLEX RF: 0 carvedilol 12.5 mg tablet 12.5 mg PO BID RF: 0 hydrocodone-acetaminophen 5-325 mg tablet 1 - 2 tab PO DIRECTED PRN (Reason: Pain) RF: 0 alendronate 70 mg tablet 70 mg PO WK RF: 0 amitriptyline 25 mg tablet 25 mg PO HS RF: 0 montelukast 10 mg tablet 10 mg PO HS RF: 0 lisinopril 5 mg tablet 5 mg PO QAM RF: 0 gabapentin 100 mg capsule 100 mg PO TID RF: 0 albuterol sulfate [Ventolin HFA] 90 mcg/actuation Hfa Aerosol Inhaler 2 puff INHALATION QID PRN (Reason: Shortness Of Breath Or Wheezing) RF: 0 cholecalciferol (vitamin D3) [Vitamin D3] 5,000 unit Tablet 5,000 unit PO HS RF: 0 atorvastatin 20 mg tablet 20 mg PO DAILY RF: 0 sumatriptan succinate 100 mg tablet 100 mg PO UD PRN (Reason: Migraine Headache) RF: 0 warfarin [Jantoven] 1 mg tablet 1 mg PO UD RF: 0 Discharge Orders: Discharge Order (Routine); Ordered 06/30/20 Ordered By: Jayla Carbajal Admission Data Admit Date/Time: 06/28/20 00:58 Attending Provider: Jayla Carbajal Admit Provider: Len Orellana Primary Care Provider: Giorgio Salas Other Providers: Len Orellana ; Jones Thayer Other Interventions: Discharge Summary Assessment (RN) Last Done: 06/30/20 13:27
[2020-07-01] MEDS ORDERED: WARFARIN SOD 5 MG TAB PO SCH (16:00)
== END 2020-06-30 14:10 | disposition home or self-care (01) | DRG 202 ==
LOC: ED 19:03 → SUATTDRO 06-28 00:58 → 2W 06-28 00:58
DX: J96.02 Acute respiratory failure with hypercapnia; R82.81 Pyuria; G89.29 Other chronic pain; I44.7 Left bundle-branch block, unspecified; Z79.01 Long term (current) use of anticoagulants; Z88.2 Allergy status to sulfonamides; Z86.718 Personal history of other venous thrombosis and embolism; J81.1 Chronic pulmonary edema; Z99.81 Dependence on supplemental oxygen; I48.91 Unspecified atrial fibrillation; D64.9 Anemia, unspecified; Z79.890 Hormone replacement therapy; Z20.828 Contact with and (suspected) exposure to other viral communicable diseases; I10 Essential (primary) hypertension; E87.2 Acidosis; E03.9 Hypothyroidism, unspecified; Z88.6 Allergy status to analgesic agent; I25.10 Atherosclerotic heart disease of native coronary artery without angina pectoris; Z79.51 Long term (current) use of inhaled steroids; M54.9 Dorsalgia, unspecified; Z79.899 Other long term (current) drug therapy; R79.1 Abnormal coagulation profile; J96.01 Acute respiratory failure with hypoxia; J45.901 Unspecified asthma with (acute) exacerbation

== ENCOUNTER 2021-01-06 05:42 | Inpatient (IN) ==
[2021-01-06] MEDS ORDERED: FUROSEMIDE 40 MG/4 ML VIAL IV STA (06:05)
--- NOTE | 2021-01-06 06:12 | Emergency Department Note ---
Impression & Plan Respiratory failure, Hypoxia, Altered mental status ED Provider Note NAME: BEV ALDRIDGE AGE: 80 SEX: F ARRIVES VIA: Ambulance INFORMANT: FACUNDO ED PROVIDER(S): Leanna Garcia DO CHIEF COMPLAINT: Shortness of breath PLAN: [facility] Condition: Guarded MEDICAL DECISION MAKING: This is a 80-year-old female patient who presents to the emergency department with increasing shortness of breath and confusion. According to EMS, the patient had gotten up to go to the bathroom and became too weak to get back into bed. They were called to her home to assist the in getting her back into bed but felt that she was too short of breath and confused to be left at the home. O2 saturations were low without supplemental oxygen. Apparently the patient is supposed to be on supplemental oxygen most specifically at night but the stated that this was no longer possible because of an insurance reason. The patient came off her home oxygen approximate 1.5 months ago. The patient appears to be in acute respiratory failure here in the emergency department with pH of 7.2 and elevated PCO2 level. She is hypoxic here without supplemental oxygen. She has been placed on BiPAP and will go for CT scan of the brain to rule out acute intracranial process as the cause of her altered mental status. The [facility] Triage Nursing notes reviewed and agree with them. Additional history obtained from EMS, the patient's Prior medical records reviewed Vital Signs: reviewed and remarkable for hypoxia and hypertension Differential diagnosis: Pulmonary edema, pulmonary embolism, Covid pneumonia, ER treatment provided: IV Lasix Diagnostics interpreted by me: ECG: Sinus tachycardia at a rate of 102 with a left bundle branch block. There is T wave inversion in lead II which is new in comparison to an EKG from 07/08. There is no specific ectopy. Cardiac Monitoring: Sinus tachycardia at a rate of 106 Laboratory studies: See below Imaging studies: As per my interpretation Portable chest x-ray: Significantly elevated right hemidiaphragm with mild fluid overload but no overt edema HPI: 80/F arrives for evaluation of shortness of breath. The patient had gotten up to go to the bathroom and return to bed when she stepped up on her stool to get into bed and was too weak to do so and therefore sat down on the stool. EMS was called to assist her into the bed but felt that she was too weak to be left at home. O2 saturations were noted to be low and the patient was confused. ROS: See above HPI for pertinent positives & negatives. A total of 10 systems reviewed and were otherwise negative. PAST MEDICAL HISTORY:See Below PAST SURGICAL HISTORY:See Below FAMILY HISTORY:See Below SOCIAL HISTORY:See Below HOME MEDICATIONS:See list ALLERGIES:See list VITALS:See Below PHYSICAL EXAMINATION: HEENT: Head - normocephalic and atraumatic. Pupils are equal, round, and reactive to light. Extraocular eye muscles are intact and sclera are anicteric. Ears - bilaterally patent canals with noninjected tympanic membranes and no evidence of hemotympanum. Nose - moist nasal mucosa without discharge. Mouth - moist buccal mucosa. Oropharynx is nonerythematous and there is no tonsillar exudate or edema noted. Neck: Supple; no cervical lymphadenopathy or JVD Heart: Tachycardic rate and regular rhythm. There is a normal S1 and S2 with no murmurs, clicks, or gallops appreciated. Lungs: Diminished breath sounds in all lung gilbert with rhonchi both lung bases Abdomen: Soft, completely nontender, nondistended, with good bowel sounds. There are no palpable pulsatile masses or hepatosplenomegaly. There is no guarding, rigidity, or rebound noted. Extremities: No evidence of cyanosis, clubbing, or edema. There are easily palpable peripheral pulses. Neuro:The patient is awake and alert, oriented to day, time, and place. Muscle strength is 5/5 in all 4 extremities. The patient has equal assistant attorney general strength and equal pedal push and pull. There are no cerebellar signs. ED COURSE: Times/Reassessments: 0555: Patient was evaluated in room C6. A complete history and physical was performed. A twelve-lead EKG was obtained as described above. Order was placed for continuous cardiac monitoring. The patient was in a sinus tachycardia at 106. Laboratory studies were difficult to obtain. Finally they were obtained including a VBG. 0710: I spoke with the patient's on the phone. He confirmed that she is a DNR. He explained that the patient's mental status seemed to be declining over the past 2 weeks. He states that she seems to be sleeping all the time that he would have to wake her up to keep her from sleeping so much. He questioned as to whether or not she could be overdosed on OxyContin but states that she has to be the one to administer that to herself. The patient was noted to be acidotic and hypercapnic. For this reason she will be placed on BiPAP. Because of the description of altered mental status according to the , the patient will go for CT scan of the brain. Patient will be admitted to the [facility] service. I have personally spent greater than 75 minutes of critical care time in the direct management of this patient. This includes bedside care, interpretation of diagnostic studies, and testing, discussion with consultants, patient, and family members, and other required patient management activities. This 75 minutes is in excess of all separately billable procedures. Leanna Garcia DO Past Med/Surg History Medical History (Updated 01/06/21 @ 07:47 by Leanna Garcia DO) Acute UTI (urinary tract infection) Asthma USES PRN INH 1 X WK Atrial flutter PT COULD NOT CONFIRM History of DVT (deep vein thrombosis) RLE - 20 YEARS AGO FOLLOWING INJURY History of endometriosis History of NM (myocardial infarction) 2018 - FOLLOWS W/ DR. JACOBSEN Hypertension Hypothyroidism Migraine On anticoagulant therapy On home oxygen therapy 2 LPM 02 QHS Osteoarthritis Osteoporosis Poor historian Pulmonary edema Pulmonary embolism (10/10/12) 20 YEARS AGO AFTER INJURY 30 YEARS AGO - POST OP CHOLEYCYSTECTOMY ON WARFARIN Sleep apnea NO DEVICE Surgical History History of appendectomy History of cardiac cath 2018 - [place] - NO STENTS History of cataract surgery History of section History of cholecystectomy History of colonoscopy History of esophagogastroduodenoscopy (EGD) History of left knee surgery History of tonsillectomy History of total abdominal hysterectomy and bilateral salpingo-oophorectomy History of tubal ligation Family History Father Esophageal cancer Social History Smoking Status: Unknown if ever smoked Second Hand Exposure: Yes (FAMILY MEMBERS CURRENTLY SMOKE); Hx Alcohol Use: No Hx Substance Use: No Preferred Language: Amharic Communication Ability: Effective Visual Impairment: No Limitations Hearing Ability: Normal Skull Grinder Required: No Beliefs That Will Affect Care: None marital status: Current Living Situation: Spouse current occupational status: retired Feels Safe at Home: Yes Assistive Devices: Walker Allergies Allergies Allergy/AdvReac Type Severity Reaction Status Date / Time aspirin Allergy Unknown Unknown Verified 01/06/21 07:40 Sulfa (Sulfonamide Allergy Unknown Unknown Verified 01/06/21 07:40 Antibiotics) Home Meds Home Medications Medication Instructions Recorded Confirmed albuterol sulfate [Ventolin HFA] 2 puff INHALATION Q4 PRN 11/10/18 01/06/21 alendronate 70 mg PO WK 11/10/18 01/06/21 amitriptyline 25 mg PO HS 11/10/18 01/06/21 carvedilol 12.5 mg PO BID 11/10/18 01/06/21 gabapentin 100 mg PO TID 11/10/18 01/06/21 lisinopril 5 mg PO QAM 11/10/18 01/06/21 montelukast 10 mg PO HS 11/10/18 01/06/21 duloxetine 30 mg PO HS 02/28/19 01/06/21 fluticasone propion-salmeterol 1 inh INHALATION BID 03/03/19 01/06/21 [Advair Diskus] pantoprazole 40 mg PO DAILY 07/22/19 01/06/21 atorvastatin 20 mg PO DAILY 10/11/19 01/06/21 levothyroxine 50 mcg PO DAILYBB 01/15/20 01/06/21 warfarin [Jantoven] See Rx Instructions .ROUTE .COMPLEX 01/15/20 01/06/21 sumatriptan succinate 100 mg PO UD PRN 06/27/20 01/06/21 albuterol sulfate [Proventil] 2.5 mg INHALATION Q4H PRN 01/06/21 01/06/21 cholecalciferol (vitamin D3) 25 mcg PO DAILY 01/06/21 01/06/21 cyanocobalamin (vitamin B-12) 1,000 mcg IM Q4WK 01/06/21 01/06/21 hydromorphone 8 mg PO BID 01/06/21 01/06/21 oxycodone-acetaminophen 1 tab PO Q6 PRN 01/06/21 01/06/21 Results & Data (ED) Vital Signs Vital Signs - 24 hr 01/06/21 05:48 05/21/21 06:21 01/06/21 06:28 Temperature 36.6 C Temperature Source Oral Pulse Rate 102 H 98 H Pulse Rate [Apical] 100 H Pulse Rhythm Regular Regular Pulse Rhythm [Apical] Regular Pulse Strength Normal Pulse Strength [Apical] Normal Respiratory Rate 24 24 25 H Respiratory Effort / Characteristics Spontaneous Grunting Moaning Short of Breath Spontaneous Grunting Moaning Short of Breath Respiratory Pattern Grunting Blood Pressure 203/98 H Blood Pressure [Right Arm] 203/98 H Blood Pressure Mean 133 Blood Pressure Mean [Right Arm] 133 Blood Pressure Position Lying Blood Pressure Position [Right Arm] Lying Pulse Oximetry 97 97 96 Oxygen Delivery Method Oxymask Oxymask Oxymask Oxygen Flow Rate 6 6 6 Fraction of Inspired Oxygen Sepsis Recent Fever Within 48 Hours No Sepsis New/Unexplained Change in Mental Status Yes Sepsis Action Taken by Nursing Physician Notified 01/06/21 07:38 Temperature Temperature Source Pulse Rate 90 Pulse Rate [Apical] Pulse Rhythm Pulse Rhythm [Apical] Pulse Strength Pulse Strength [Apical] Respiratory Rate 23 Respiratory Effort / Characteristics Spontaneous Respiratory Pattern Blood Pressure Blood Pressure [Right Arm] Blood Pressure Mean Blood Pressure Mean [Right Arm] Blood Pressure Position Blood Pressure Position [Right Arm] Pulse Oximetry 94 Oxygen Delivery Method Oxygen Flow Rate Fraction of Inspired Oxygen 40 Sepsis Recent Fever Within 48 Hours Sepsis New/Unexplained Change in Mental Status Sepsis Action Taken by Nursing Laboratory Data Result diagrams: 01/06/21 06:55 01/06/21 06:55 Lab Results 01/06/21 01/06/21 01/06/21 Range/Units 06:04 06:04 06:34 WBC (4.8-10.8) K/uL RBC (4.2-5.4) M/uL Hgb (12.0-16.0) g/dL Hct (37-47) % MCV (80-100) fL MCH (25-34) pg MCHC (32-36) g/dL RDW Std Deviation (36.4-46.3) fL RDW Coeff of Vijay (11.5-14.5) % Plt Count (130-400) K/uL MPV (7.4-10.4) fL Immature Gran % (Auto) % Neut % (Auto) % Lymph % (Auto) % Lyon % (Auto) % Eos % (Auto) % Baso % (Auto) % Neut # (Auto) (1.4-6.5) K/uL Lymph # (Auto) (1.2-3.4) K/uL Lyon # (Auto) (0.11-0.59) K/uL Eos # (Auto) (0-0.5) K/uL Baso # (Auto) (0-0.2) K/uL Immature Gran # (Auto) (0.00-0.02) K/uL PT (9.0-12.0) Seconds INR (0.9-1.1) VBG pH (7.36-7.41) VBG pCO2 (38-50) mmHg VBG pO2 mmHg VBG HCO3 mmol/L VBG O2 Saturation % VBG Base Excess mEq/L Barometric Pressure mm/Hg Sodium (136-145) mmol/L Potassium (3.5-5.1) mmol/L Chloride (98-107) mmol/L Carbon Dioxide (21-32) mmol/L Anion Gap (3-11) BUN (7-18) mg/dl Creatinine (0.6-1.2) mg/dl Est Cr Clr Drug Dosing ml/min Est GFR ( Amer) ml/min Est GFR (Non-Af Amer) ml/min BUN/Creatinine Ratio (10-20) Glucose (70-99) mg/dl Calcium (8.5-10.1) mg/dl Total Bilirubin (0.2-1) mg/dl AST (15-37) U/L ALT (12-78) U/L Alkaline Phosphatase (45-117) U/L Troponin I (0-0.045) ng/ml NT-Pro-B Natriuret Pep (0-1800) pg/ml Total Protein (6.4-8.2) gm/dl Albumin (3.4-5.0) gm/dl Globulin (2.5-4.0) gm/dl Albumin/Globulin Ratio (0.9-2) Urine Color Yellow Urine Appearance Clear (Clear) Urine pH 5.5 (4.5-7.5) Ur Specific [place] 1.016 (1.000-1.030) Urine Protein Negative (Negative) Urine Glucose (UA) Negative (Negative) Urine Ketones Negative (Negative) Urine Blood Negative (Negative) Urine Nitrite Negative (Negative) Urine Bilirubin Negative (Negative) Urine Urobilinogen Negative (Negative) Ur Leukocyte Esterase Negative (Negative) COVID-19 Eval Order Covid19 at [facility] SARS-CoV-2 (PCR) NEGATIVE (Negative) 01/06/21 01/06/21 01/06/21 Range/Units 06:55 06:55 06:55 WBC 9.37 (4.8-10.8) K/uL RBC 3.21 L (4.2-5.4) M/uL Hgb 11.3 L (12.0-16.0) g/dL Hct 35.1 L (37-47) % MCV 109.3 H (80-100) fL MCH 35.2 H (25-34) pg MCHC 32.2 (32-36) g/dL RDW Std Deviation 51.4 H (36.4-46.3) fL RDW Coeff of Vijay 13.0 (11.5-14.5) % Plt Count 152 (130-400) K/uL MPV 9.9 (7.4-10.4) fL Immature Gran % (Auto) 0.1 % Neut % (Auto) 84.8 % Lymph % (Auto) 8.5 % Lyon % (Auto) 4.7 % Eos % (Auto) 1.8 % Baso % (Auto) 0.1 % Neut # (Auto) 7.94 H (1.4-6.5) K/uL Lymph # (Auto) 0.80 L (1.2-3.4) K/uL Lyon # (Auto) 0.44 (0.11-0.59) K/uL Eos # (Auto) 0.17 (0-0.5) K/uL Baso # (Auto) 0.01 (0-0.2) K/uL Immature Gran # (Auto) 0.01 (0.00-0.02) K/uL PT 16.5 H (9.0-12.0) Seconds INR 1.7 H (0.9-1.1) VBG pH (7.36-7.41) VBG pCO2 (38-50) mmHg VBG pO2 mmHg VBG HCO3 mmol/L VBG O2 Saturation % VBG Base Excess mEq/L Barometric Pressure mm/Hg Sodium 139 (136-145) mmol/L Potassium 4.3 (3.5-5.1) mmol/L Chloride 106 (98-107) mmol/L Carbon Dioxide 30 (21-32) mmol/L Anion Gap 3.0 (3-11) BUN 20 H (7-18) mg/dl Creatinine 1.17 (0.6-1.2) mg/dl Est Cr Clr Drug Dosing 49.0 ml/min Est GFR ( Amer) 51.7 ml/min Est GFR (Non-Af Amer) 44.6 ml/min BUN/Creatinine Ratio 17.1 (10-20) Glucose 93 (70-99) mg/dl Calcium 8.9 (8.5-10.1) mg/dl Total Bilirubin 1.2 H (0.2-1) mg/dl AST 25 (15-37) U/L ALT 17 (12-78) U/L Alkaline Phosphatase 72 (45-117) U/L Troponin I < 0.015 (0-0.045) ng/ml NT-Pro-B Natriuret Pep 1352 (0-1800) pg/ml Total Protein 6.8 (6.4-8.2) gm/dl Albumin 3.2 L (3.4-5.0) gm/dl Globulin 3.6 (2.5-4.0) gm/dl Albumin/Globulin Ratio 0.9 (0.9-2) Urine Color Urine Appearance (Clear) Urine pH (4.5-7.5) Ur Specific [place] (1.000-1.030) Urine Protein (Negative) Urine Glucose (UA) (Negative) Urine Ketones (Negative) Urine Blood (Negative) Urine Nitrite (Negative) Urine Bilirubin (Negative) Urine Urobilinogen (Negative) Ur Leukocyte Esterase (Negative) COVID-19 Eval Order SARS-CoV-2 (PCR) (Negative) 01/06/21 Range/Units 06:55 WBC (4.8-10.8) K/uL RBC (4.2-5.4) M/uL Hgb (12.0-16.0) g/dL Hct (37-47) % MCV (80-100) fL MCH (25-34) pg MCHC (32-36) g/dL RDW Std Deviation (36.4-46.3) fL RDW Coeff of Vijay (11.5-14.5) % Plt Count (130-400) K/uL MPV (7.4-10.4) fL Immature Gran % (Auto) % Neut % (Auto) % Lymph % (Auto) % Lyon % (Auto) % Eos % (Auto) % Baso % (Auto) % Neut # (Auto) (1.4-6.5) K/uL Lymph # (Auto) (1.2-3.4) K/uL Lyon # (Auto) (0.11-0.59) K/uL Eos # (Auto) (0-0.5) K/uL Baso # (Auto) (0-0.2) K/uL Immature Gran # (Auto) (0.00-0.02) K/uL PT (9.0-12.0) Seconds INR (0.9-1.1) VBG pH 7.28 L (7.36-7.41) VBG pCO2 66 H (38-50) mmHg VBG pO2 29 mmHg VBG HCO3 30 mmol/L VBG O2 Saturation < 60.0 % VBG Base Excess 2.0 mEq/L Barometric Pressure 744.9 mm/Hg Sodium (136-145) mmol/L Potassium (3.5-5.1) mmol/L Chloride (98-107) mmol/L Carbon Dioxide (21-32) mmol/L Anion Gap (3-11) BUN (7-18) mg/dl Creatinine (0.6-1.2) mg/dl Est Cr Clr Drug Dosing ml/min Est GFR ( Amer) ml/min Est GFR (Non-Af Amer) ml/min BUN/Creatinine Ratio (10-20) Glucose (70-99) mg/dl Calcium (8.5-10.1) mg/dl Total Bilirubin (0.2-1) mg/dl AST (15-37) U/L ALT (12-78) U/L Alkaline Phosphatase (45-117) U/L Troponin I (0-0.045) ng/ml NT-Pro-B Natriuret Pep (0-1800) pg/ml Total Protein (6.4-8.2) gm/dl Albumin (3.4-5.0) gm/dl Globulin (2.5-4.0) gm/dl Albumin/Globulin Ratio (0.9-2) Urine Color Urine Appearance (Clear) Urine pH (4.5-7.5) Ur Specific [place] (1.000-1.030) Urine Protein (Negative) Urine Glucose (UA) (Negative) Urine Ketones (Negative) Urine Blood (Negative) Urine Nitrite (Negative) Urine Bilirubin (Negative) Urine Urobilinogen (Negative) Ur Leukocyte Esterase (Negative) COVID-19 Eval Order SARS-CoV-2 (PCR) (Negative) Administered Medications Discontinued Medications Furosemide (Furosemide 40 Mg/4 Ml Vial) 40 mg IV NOW STA Stop: 01/06/21 06:06 Last Admin: 01/06/21 06:43 Dose: 40 mg Documented by: [id number] Imaging Data Radiologist's Impression: Chest X-Ray 01/06/21 05:55 XR chest 1V portable CLINICAL HISTORY: Dyspnea COMPARISON STUDY: Chest CT February 06, 2019. Chest radiograph June 27, 2020. FINDINGS: There is no pneumothorax or pleural effusion. Elevation of the right hemidiaphragm is unchanged. Bibasilar opacities are noted as well as right perihilar. Cardiomediastinal fluid is stable. There is no evidence for pulmonary edema. Incidental note is made of severe osteoarthritis of both glenohumeral joints. There are cholecystectomy clips. IMPRESSION: 1. Mild bibasilar and right perihilar opacities which favor atelectasis. 2. Stable elevation of the right hemidiaphragm. ACT 112: Negative or not required by law. Electronically signed by: Shon Rushing M.D. 01/06/2021 6:[address] 01/06/21 07:14 CT SCAN OF THE BRAIN WITHOUT IV CONTRAST CLINICAL HISTORY: Change in mental status. COMPARISON STUDY: CT of the brain dated 10/11/2019. TECHNIQUE: Unenhanced axial CT scan of the brain is performed from the vertex to the skull base. A dose lowering technique was utilized adhering to the principles of ALARA. CT DOSE: 614.27 mGy.cm FINDINGS: Brain parenchyma: There are age-related involutional changes noting moderate confluent subcortical and periventricular microangiopathic change. There is no hemorrhage, mass effect, or evidence of acute territorial ischemia by CT criteria. Lilly-white matter differentiation is preserved. No extra-axial fluid collection is seen. Ventricles, sulci, cisterns: Prominent secondary to involutional change. Intracranial vasculature: There is atherosclerotic calcification of the cavernous carotid and vertebral arteries. Calvarium: Unremarkable. Sinuses and mastoids: The paranasal sinuses are clear. The mastoid air cells are well pneumatized. Orbits: The bony orbits are grossly intact. There are bilateral ocular lens implants. IMPRESSION: There is no hemorrhage, mass effect, or evidence of acute territorial ischemia by CT criteria. ACT 112: Negative or not required by law. Electronically signed by: Vladislav Curiel M.D. 01/06/2021 7:43 AM Discharge Plan Visit Data Chief Complaint: Fall Stated Complaint: FALL ED Provider: Leanna Garcia Discharge Problem: Respiratory failure, Hypoxia, Altered mental status Forms Stand Alone Forms: [facility] Prescriptions Prescriptions: No Action duloxetine 30 mg capsule,delayed release(DR/EC) 30 mg PO HS RF: 0 fluticasone propion-salmeterol [Advair Diskus] 250-50 mcg/dose Blister With Device 1 inh INHALATION BID RF: 0 pantoprazole 40 mg tablet,delayed release (DR/EC) 40 mg PO DAILY RF: 0 levothyroxine 50 mcg tablet 50 mcg PO DAILYBB RF: 0 warfarin [Jantoven] 5 mg tablet See Rx Instructions .ROUTE .COMPLEX RF: 0 carvedilol 12.5 mg tablet 12.5 mg PO BID RF: 0 alendronate 70 mg tablet 70 mg PO WK RF: 0 amitriptyline 25 mg tablet 25 mg PO HS RF: 0 montelukast 10 mg tablet 10 mg PO HS RF: 0 lisinopril 5 mg tablet 5 mg PO QAM RF: 0 gabapentin 100 mg capsule 100 mg PO TID RF: 0 albuterol sulfate [Ventolin HFA] 90 mcg/actuation Hfa Aerosol Inhaler 2 puff INHALATION Q4 PRN (Reason: Shortness Of Breath Or Wheezing) RF: 0 atorvastatin 20 mg tablet 20 mg PO DAILY RF: 0 sumatriptan succinate 100 mg tablet 100 mg PO UD PRN (Reason: Migraine Headache) RF: 0 albuterol sulfate [Proventil] 2.5 mg /3 mL (0.083 %) Solution For Nebulization 2.5 mg INHALATION Q4H PRN (Reason: Wheezing) RF: 0 oxycodone-acetaminophen 5-325 mg tablet 1 tab PO Q6 PRN (Reason: Severe Pain (Scale Score 7-10)) RF: 0 cyanocobalamin (vitamin B-12) 1,000 mcg/mL Solution 1,000 mcg IM Q4WK RF: 0 cholecalciferol (vitamin D3) 25 mcg (1,000 unit) Capsule 25 mcg PO DAILY RF: 0 hydromorphone 8 mg tablet extended release 24 hr 8 mg PO BID RF: 0 Discharge Problem: Respiratory failure Qualifiers: Chronicity: acute Respiratory failure complication: hypoxia Qualified Code(s): J96.01 - Acute respiratory failure with hypoxia Altered mental status Qualifiers: Altered mental status type: delirium Qualified Code(s): R41.0 - Disorientation, unspecified
--- NOTE | 2021-01-06 06:39 | XRay Report ---
XR chest 1V portable CLINICAL HISTORY: Dyspnea COMPARISON STUDY: Chest CT February 06, 2019. Chest radiograph June 27, 2020. FINDINGS: There is no pneumothorax or pleural effusion. Elevation of the right hemidiaphragm is uncha nged. Bibasilar opacities are noted as well as right perihilar. Cardiomediastinal fluid is stable. Th ere is no evidence for pulmonary edema. Incidental note is made of severe osteoarthritis of both rebecca ohumeral joints. There are cholecystectomy clips. IMPRESSION: 1. Mild bibasilar and right perihilar opacities which favor atelectasis. 2. Stable elevation of the right hemidiaphragm. ACT 112: Negative or not required by law. Electronically signed by: Shon Rushing M.D. 01/06/2021 6:38 AM
[2021-01-06 06:53] LABS: Appearance Urine Clear (Clear); Bilirubin Urine Negative (Negative); Blood Urine Negative (Negative); Color Urine Yellow; Glucose Urine UA Negative (Negative); Ketones Urine Negative (Negative); Leukocyte Esterase Urine Negative (Negative); Nitrite Urine Negative (Negative); Protein Urine Negative (Negative); Specific Gravity Urine 1.016 (1.000-1.030); Urobilinogen Urine Negative (Negative); pH Urine 5.5 (4.5-7.5)
[2021-01-06 07:08] LABS: Basophils # (auto) 0.01 K/uL (0-0.2); Basophils % (auto) 0.1 %; Eosinophils # (auto) 0.17 K/uL (0-0.5); Eosinophils % (auto) 1.8 %; Hematocrit (blood only) 35.1 % (37-47); Hemoglobin 11.3 g/dL (12.0-16.0); Immature Granulocytes # (auto) 0.01 K/uL (0.00-0.02); Immature Granulocytes % (auto) 0.1 %; Lymphocytes % (auto) 8.5 %; Mean Corpuscular Hemoglobin 35.2 pg (25-34); Mean Corpuscular Hgb Conc 32.2 g/dL (32-36); Mean Corpuscular Volume 109.3 fL (80-100); Mean Platelet Volume 9.9 fL (7.4-10.4); Monocytes # (auto) 0.44 K/uL (0.11-0.59); Monocytes % (auto) 4.7 %; Neutrophils # (auto) 7.94 K/uL (1.4-6.5); Neutrophils % (auto) 84.8 %; Platelet Count 152 K/uL (130-400); RDW Standard Deviation 51.4 fL (36.4-46.3); Red Blood Count 3.21 M/uL (4.2-5.4); White Blood Count 9.37 K/uL (4.8-10.8)
[2021-01-06 07:09] LABS: HCO3 VBG 30 mmol/L; PCO2 VBG 66 mmHg (38-50); PO2 VBG 29 mmHg; pH VBG 7.28 (7.36-7.41)
[2021-01-06 07:13] LABS: Oxygen Saturation VBG < 60.0 %
[2021-01-06 07:23] LABS: Alanine Aminotransferase 17 U/L (12-78); Albumin Level 3.2 gm/dl (3.4-5.0); Aspartate Aminotransferase 25 U/L (15-37); BUN Creatinine Ratio 17.1 (10-20); Blood Urea Nitrogen 20 mg/dl (7-18); Calcium 8.9 mg/dl (8.5-10.1); Carbon Dioxide 30 mmol/L (21-32); Chloride 106 mmol/L (98-107); Est GFR (African American) 51.7 ml/min; Est GFR (Non-African American) 44.6 ml/min; Glucose 93 mg/dl (70-99); Potassium 4.3 mmol/L (3.5-5.1); Sodium 139 mmol/L (136-145)
[2021-01-06 07:25] LABS: INR 1.7 (0.9-1.1); Prothrombin Time 16.5 Seconds (9.0-12.0)
[2021-01-06 07:28] LABS: Albumin Globulin Ratio 0.9 (0.9-2); Alkaline Phosphatase 72 U/L (45-117); Bilirubin,Total 1.2 mg/dl (0.2-1); Globulin 3.6 gm/dl (2.5-4.0); NT Pro B Type Natriuretic Pept 1352 pg/ml (0-1800); Total Protein 6.8 gm/dl (6.4-8.2); Troponin I < 0.015 ng/ml (0-0.045)
--- NOTE | 2021-01-06 07:45 | CT Scan Report ---
CT SCAN OF THE BRAIN WITHOUT IV CONTRAST CLINICAL HISTORY: Change in mental status. COMPARISON STUDY: CT of the brain dated 10/11/2019. TECHNIQUE: Unenhanced axial CT scan of the brain is performed from the vertex to the skull base. A do se lowering technique was utilized adhering to the principles of ALARA. CT DOSE: 614.27 mGy.cm FINDINGS: Brain parenchyma: There are age-related involutional changes noting moderate confluent subcortical a nd periventricular microangiopathic change. There is no hemorrhage, mass effect, or evidence of acute territorial ischemia by CT criteria. Lilly-white matter differentiation is preserved. No extra-axial fluid collection is seen. Ventricles, sulci, cisterns: Prominent secondary to involutional change. Intracranial vasculature: There is atherosclerotic calcification of the cavernous carotid and vertebr al arteries. Calvarium: Unremarkable. Sinuses and mastoids: The paranasal sinuses are clear. The mastoid air cells are well pneumatized. Orbits: The bony orbits are grossly intact. There are bilateral ocular lens implants. IMPRESSION: There is no hemorrhage, mass effect, or evidence of acute territorial ischemia by CT devin garland. ACT 112: Negative or not required by law. Electronically signed by: Vladislav Curiel M.D. 01/06/2021 7:43 AM
--- NOTE | 2021-01-06 08:25 | History & Physical Report ---
Date of Service January 06, 2021 Assessment & Plan (1) Acute on chronic respiratory failure with hypoxia and hypercapnia: (2) Asthma with exacerbation: (3) Acute respiratory acidosis: This is a 80yo F with a PMH of asthma, nocturnal hypoxemia, dependence on supplemental O2, CAD, HTN, history of DVT/PE on coumadin, CKD III, chronic back pain and fibromyalgia on chronic narcotics and other medical problems listed below who presents with lethargy and hypoxia. Initially 83% on room air, now saturating at 93% on bipap Somnolent, VBG pH 7.2, pCO2 66, no leukocytosis, d-dimer elevated at 1,570, procal wnl, covid PCR negative - ABG pending Known nocturnal hypoxemia requiring 2L HS but ran out of O2 1.5 mo ago due to problems with insurance coverage, per No documented COPD but obesity hypoventilation syndrome a likely contributor Afebrile, procal wnl but right perihilar opacities on CXR - continue empiric rocephin for possible underlying pulm infxn and flagyl for aspiration for 48 hrs, follow cultures Started on IV Solumedrol, scheduled duonebs Per discussion with , patient is a DNR/DNI (4) Acute metabolic encephalopathy: In setting of prolonged hypoxia with noncompliance with home oxygen, also on chronic narcotics for back pain/fibromyalgia CT head without hemorrhage, mass effect, or evidence of acute territorial ischemia by CT criteria Continue bipap treatment Narcan administered in case opioids contributing to respiratory failure (5) History of pulmonary embolism: H/o DVT/PE on buttermaker anticoagulation with coumadin Bilateral venous dopplers ordered for eval of DVT, plan for chest CTA once patient stable for study -High suspicion for PE given subtherapeutic coumadin, essentially bedbound for past few weeks Bridging with IV heparin until coumadin is therapeutic - INR 1.7 (6) Lumbar radiculopathy, chronic: Home regimen includes hydromorphone 8mg PO BID, Percocet 5-325mg Q6H PRN, gabapentin 100mg TID Holding for now (7) CAD (coronary artery disease): Continue statin, beta hayden once able to tolerate PO meds (8) Hypertension: Home regimen includes carvedilol, lisinopril. Continue once able to tolerate PO meds (9) Hypothyroidism: Continue levothyroxine DVT Ppx: Continue coumadin, IV heparin bridge Code status: DNR/DNI per discussion with PCP: Marika Salas Dispo: Admitted to PCU. Discharge planning ordered Patient seen in collaboration with Dr. Reed. Please see addendum. History of Present Illness Chief Complaint: AMS, hypoxic resp failure Primary Care Provider: Giorgio Salas DO This is a 80yo F with a PMH of asthma, nocturnal hypoxemia, dependence on supplemental O2, CAD, HTN, history of DVT/PE on coumadin, CKD III, chronic back pain and fibromyalgia on chronic narcotics and other medical problems listed below who presents with lethargy and hypoxia. History obtained primarily from due to patient's somnolent state. Patient has been sleeping more throughout the past few weeks. notes that they are having problems with insurance coverage for oxygen that she uses at night and patient has not been on it for past 1.5 months. called EMS this morning when was too weak to get back into bed and seemed incoherent. Was noted to be hypoxic at 83% by EMS and was brought in for further evaluation. States that she has been taking home medication as prescribed until this morning when she was too lethargic to take pills. Allergies Allergy/AdvReac Type Severity Reaction Status Date / Time aspirin Allergy Unknown Unknown Verified 01/06/21 07:40 Sulfa (Sulfonamide Allergy Unknown Unknown Verified 01/06/21 07:40 Antibiotics) Home Medications Medication Instructions Recorded Confirmed Type albuterol sulfate [Ventolin HFA] 2 puff INHALATION Q4 PRN 11/10/18 01/06/21 History alendronate 70 mg PO WK 11/10/18 01/06/21 History amitriptyline 25 mg PO HS 11/10/18 01/06/21 History carvedilol 12.5 mg PO BID 11/10/18 01/06/21 History gabapentin 100 mg PO TID 11/10/18 01/06/21 History lisinopril 5 mg PO QAM 11/10/18 01/06/21 History montelukast 10 mg PO HS 11/10/18 01/06/21 History duloxetine 30 mg PO HS 02/28/19 01/06/21 History fluticasone propion-salmeterol 1 inh INHALATION BID 03/03/19 01/06/21 History [Advair Diskus] pantoprazole 40 mg PO DAILY 07/22/19 01/06/21 History atorvastatin 20 mg PO DAILY 10/11/19 01/06/21 History levothyroxine 50 mcg PO DAILYBB 01/15/20 01/06/21 History warfarin [Jantoven] 5 mg PO 5XWK 01/15/20 01/06/21 History sumatriptan succinate 100 mg PO UD PRN 06/27/20 01/06/21 History albuterol sulfate [Proventil] 2.5 mg INHALATION Q4H PRN 01/06/21 01/06/21 History cholecalciferol (vitamin D3) 25 mcg PO DAILY 01/06/21 01/06/21 History cyanocobalamin (vitamin B-12) 1,000 mcg IM Q4WK 01/06/21 01/06/21 History hydromorphone 8 mg PO BID 01/06/21 01/06/21 History oxycodone-acetaminophen 1 tab PO Q6 PRN 01/06/21 01/06/21 History warfarin [Jantoven] 2.5 mg PO 2XWK 01/06/21 01/06/21 History Past Med/Surg History Medical History (Updated 01/06/21 @ 09:39 by Fawn Sanchez PA-C) Asthma USES PRN INH 1 X WK Atrial flutter PT COULD NOT CONFIRM History of DVT (deep vein thrombosis) RLE - 20 YEARS AGO FOLLOWING INJURY History of endometriosis History of ME (myocardial infarction) 2018 - FOLLOWS W/ DR. JACOBSEN History of pulmonary embolism Hypertension Hypothyroidism Migraine On anticoagulant therapy On home oxygen therapy 2 LPM 02 QHS Osteoarthritis Osteoporosis Poor historian Pulmonary edema Pulmonary embolism (10/10/12) 20 YEARS AGO AFTER INJURY 30 YEARS AGO - POST OP CHOLEYCYSTECTOMY ON WARFARIN Sleep apnea NO DEVICE Surgical History History of appendectomy History of cardiac cath 2018 - [place] - NO STENTS History of cataract surgery History of section History of cholecystectomy History of colonoscopy History of esophagogastroduodenoscopy (EGD) History of left knee surgery History of tonsillectomy History of total abdominal hysterectomy and bilateral salpingo-oophorectomy History of tubal ligation Family History Father Esophageal cancer Social History Smoking Status: Unknown if ever smoked Second Hand Exposure: Yes (FAMILY MEMBERS CURRENTLY SMOKE); Hx Alcohol Use: No Hx Substance Use: No Preferred Language: Irish Communication Ability: Effective Visual Impairment: No Limitations Hearing Ability: Normal Preschool 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 Teacher Required: No Beliefs That Will Affect Care: None marital status: Current Living Situation: Spouse current occupational status: retired Feels Safe at Home: Yes Assistive Devices: Walker Review of Systems Review of Systems: Unobtainable due to reduced consciousness Physical Exam Physical Exam: General Appearance: vitals as above, lying in bed, somnolent on bipap, obese, minimally responsive with nodding yes/no Head: normocephalic, atraumatic Eyes: normal inspection, PERRL, conjunctivae normal, anicteric sclerae ENT: external ear and nose normal, wearing bipap mask Neck: normal visual inspection, trachea midline, no thyromegaly Respiratory: increased respiratory effort, diffuse rhonchi & expiratory wheezing. No accessory muscle use Cardiovascular: regular rate, rhythm, no murmur, normal peripheral pulses, no BLE edema. Vessels: no JVD Chest: normal inspection of chest Abdomen/GI: normal bowel sounds, soft, nontender, no hepatosplenomegaly Extremities/Musculoskeletal: no cyanosis or clubbing, extremities motor strength 5/5 Neurologic: PERRL, no face palsy, no dysarthria, CN's II-XI intact bilaterally and moves all extremities Psychiatric: somnolent Skin: no rashes, normal color, warm/dry Results & Data Results & Data ([facility]) Vital Signs (Past 12 Hours) Vital Signs Temp Pulse Pulse Resp BP BP Pulse Ox 01/06/21 08:00 90 17 93 01/06/21 07:38 90 23 94 01/06/21 07:37 92 01/06/21 07:00 93 H 28 H 139/81 01/06/21 06:32 98 H 29 H 93 01/06/21 06:30 99 H 29 H 129/103 H 94 01/06/21 06:29 101 H 22 188/85 H 99 01/06/21 06:28 100 H 25 H 203/98 H 96 01/06/21 06:21 98 H 24 97 01/06/21 06:00 101 H 23 100 01/06/21 05:50 103 H 30 H 98 01/06/21 05:48 36.6 C 103 H 23 203/98 H 97 Laboratory Results Short CBC 01/06/21 Range/Units 06:55 WBC 9.37 (4.8-10.8) K/uL Hgb 11.3 L (12.0-16.0) g/dL Hct 35.1 L (37-47) % Plt Count 152 (130-400) K/uL BMP 01/06/21 06:55 Sodium 139 Potassium 4.3 Chloride 106 Carbon Dioxide 30 BUN 20 H Creatinine 1.17 Glucose 93 Calcium 8.9 Cardiac Enzymes 01/06/21 Range/Units 06:55 Troponin I < 0.015 (0-0.045) ng/ml Liver Function 01/06/21 Range/Units 06:55 Total Bilirubin 1.2 H (0.2-1) mg/dl AST 25 (15-37) U/L ALT 17 (12-78) U/L Alkaline Phosphatase 72 (45-117) U/L Albumin 3.2 L (3.4-5.0) gm/dl Urine 01/06/21 Range/Units 06:34 Urine Color Yellow Urine Appearance Clear (Clear) Urine pH 5.5 (4.5-7.5) Ur Specific [place] 1.016 (1.000-1.030) Urine Protein Negative (Negative) Urine Glucose (UA) Negative (Negative) Diagnostic Findings Chest X-Ray 01/06/21 05:55 XR chest 1V portable CLINICAL HISTORY: Dyspnea COMPARISON STUDY: Chest CT February 06, 2019. Chest radiograph June 27, 2020. FINDINGS: There is no pneumothorax or pleural effusion. Elevation of the right hemidiaphragm is unchanged. Bibasilar opacities are noted as well as right perihilar. Cardiomediastinal fluid is stable. There is no evidence for pulmonary edema. Incidental note is made of severe osteoarthritis of both glenohumeral joints. There are cholecystectomy clips. IMPRESSION: 1. Mild bibasilar and right perihilar opacities which favor atelectasis. 2. Stable elevation of the right hemidiaphragm. ACT 112: Negative or not required by law. Electronically signed by: Shon Rushing M.D. 01/06/2021 6:[address] 01/06/21 07:14 CT SCAN OF THE BRAIN WITHOUT IV CONTRAST CLINICAL HISTORY: Change in mental status. COMPARISON STUDY: CT of the brain dated 10/11/2019. TECHNIQUE: Unenhanced axial CT scan of the brain is performed from the vertex to the skull base. A dose lowering technique was utilized adhering to the principles of ALARA. CT DOSE: 614.27 mGy.cm FINDINGS: Brain parenchyma: There are age-related involutional changes noting moderate confluent subcortical and periventricular microangiopathic change. There is no hemorrhage, mass effect, or evidence of acute territorial ischemia by CT criteria. Lilly-white matter differentiation is preserved. No extra-axial fluid collection is seen. Ventricles, sulci, cisterns: Prominent secondary to involutional change. Intracranial vasculature: There is atherosclerotic calcification of the cavernous carotid and vertebral arteries. Calvarium: Unremarkable. Sinuses and mastoids: The paranasal sinuses are clear. The mastoid air cells are well pneumatized. Orbits: The bony orbits are grossly intact. There are bilateral ocular lens implants. IMPRESSION: There is no hemorrhage, mass effect, or evidence of acute territorial ischemia by CT criteria. ACT 112: Negative or not required by law. Electronically signed by: Vladislav Curiel M.D. 01/06/2021 7:43 AM Code Status & VTE Plan VTE Prophylaxis Plan VTE Prophylaxis will be ordered: Yes Supervising Physician Co-Signing Physician Notes Attending addendum: Patient seen and examined, care coordinated with Fawn Sanchez PA-C This is a 80-year-old female with past medical history of A. fib, PE, on chronic anticoagulation with Coumadin, history of coronary disease, asthma To ER by EMS as called earlier today patient was found to be very lethargic, poorly responsive, after getting out of bed, EMS found patient was significantly hypoxic at 60% while in room air In the ER patient was placed on BiPAP, Remains very lethargic, information obtained from ER note, and conversation with over phone by Fawn Sancehz PA-C Physical exam: Limited as patient remains very lethargic unable to follow any command General, lethargic, poorly responsive HEENT: Dry oral mucosa has BiPAP mask Lungs: diffuse wheeze bilaterally Neuro, unable to assess patient not able to follow any command Assessment and plan: Acute hypoxemic respiratory failure: Remains on BiPAP, Possible secondary to COPD exacerbation? Patient does not have a formal diagnosis of COPD, but has diffuse bilateral wheeze. Chest x-ray shows bibasilar, and perihilar opacity, possible aspiration?(Although patient is afebrile normal white count, normal procalcitonin) .For empiric antibiotic with IV Unasyn And dose of IV Solu-Medrol 125 mg x 1, nebulizer treatment Continue IV steroids 40 mg every 8 hours/Pulmonary evaluation requested Strict n.p.o. for lethargy/ Patient is more alert and awake, will need speech eval Mild elevation of lactic acid: Possible secondary to hypoxemia Continue BiPAP, Repeat lactic acid level ordered Elevated D-dimer: Highly suspicious for PE, patient has been bedbound, On Coumadin for history of A. fib, history of PE INR 1.7 She not able to take anything p.o. right now for increased lethargy Ordered for IV heparin weight-based protocol Lower extreme Doppler to rule out DVT Patient is respiratory rodriguez too unstable to have a CTA of the chest for PE evaluation,/started on standard anticoagulation anyway Resting echo ordered for evaluation of right heart strain Confusion lethargy/metabolic encephalopathy. Possible secondary to hypoxia? No evidence of sepsis per patient was continue to receive narcotic pain medication for the past several days Ordered for urine tox screen, Narcan 1 dose Avoid all narcotics pain medication/strict n.p.o. for lethargy Concern for possible neglect/lack of care provided by /caregiver As per patient has been lethargic, profound weakness for past 2 to 3 weeks Has been did not seek any medical advice, Continued to give narcotic pain medication thinking that she could be in a lot of pain Patient was supposed to be on oxygen at home, home oxygen was not delivered due to insurance issues question? did not reach out to any care providers or patient's family physician for home oxygen issues. Patient has been without any oxygen lethargic, getting ongoing narcotic pain medications past several days Social service consulted, will need office of aging involvement to assess home situation. CODE STATUS: DNR/DNI Disposition: Remains acutely ill, admitted to PCU on continued BiPAP PT OT evaluation when more clinically stable Patient will benefit with rehab Social service/office of aging to evaluate home situation. (1) Asthma with exacerbation Asthma persistence: unspecified Asthma severity: unspecified severity Qualified Code(s): J45.901 - Unspecified asthma with (acute) exacerbation (2) Hypertension Hypertension type: unspecified Qualified Code(s): I10 - Essential (primary) hypertension
[2021-01-06] MEDS ORDERED: ALBUT/IPRATROP 3MG/0.5MG NEB 3 ML VIAL NEB PRN (08:41)
[2021-01-06] MEDS ORDERED: methylPREDNISolone 125 MG/2 ML VIAL IV STA (08:45)
[2021-01-06] MEDS ORDERED: PIPERACILL/TAZOBAC CONSULT ACTIVE PRN (08:51)
[2021-01-06] MEDS ORDERED: HEPARIN 25000 UNIT/500 ML D5W IV ONE (09:00)
[2021-01-06] MEDS ORDERED: PIPERACILLIN/TAZOBACTAM 3.375 GM in DEXTROSE 5% 100 ML IV SCH (09:00)
[2021-01-06] MEDS ORDERED: methylPREDNISolone 125 MG/2 ML VIAL ONE (09:05)
[2021-01-06 09:14] LABS: D Dimer 1570 ug/L FEU (0-500)
[2021-01-06] MEDS ORDERED: NALOXONE HCL 0.4 MG/1 ML VIAL/CARP IV STA (09:37)
[2021-01-06] MEDS ORDERED: POLYETHYLENE (MIRALAX) 17 GM PACK PO PRN (09:37)
[2021-01-06] MEDS ORDERED: ONDANSETRON INJ 2 MG/ML 2 ML VIAL IV PRN (09:37)
[2021-01-06] MEDS ORDERED: ALBUTEROL HFA 8 GM INHALER INH PRN (09:59)
[2021-01-06 10:08] LABS: iSTAT Allen Test Pass; iSTAT Arterial Blood Gas HCO3 30 meg/L (19-24); iSTAT Arterial Blood Gas pCO2 56 mmHg (35-46); iSTAT Arterial Blood Gas pH 7.35 (7.35-7.45); iSTAT Arterial Blood Gas pO2 217 mmHg (80-95); iSTAT Carbon Dioxide 32 mmol/L (24-31); iSTAT Site R Radial
[2021-01-06] MEDS ORDERED: [UNRECOGNIZED DRUG - REMARK] PRN (10:27)
[2021-01-06] MEDS ORDERED: cefTRIAXone SODIUM 2,000 MG in DEXTROSE 5% 50 ML IV SCH (10:30)
[2021-01-06] MEDS: ALBUT/IPRATROP 3MG/0.5MG NEB 3 ML VIAL INH SCH ×4 (11:06→22:23)
[2021-01-06] MEDS: Heparin IV Adult Wt-Based Low-Dose *NO* Bolus Protocol IV SCH ×2 (11:20→11:21)
[2021-01-06] MEDS: AMPICILLIN/SULBACTAM SOD 3,000 MG in 0.9 % SODIUM CHLORIDE 100 ML IV SCH ×3 (11:28→22:02)
[2021-01-06] MEDS: HEPARIN SODIUM/DEXTROSE 25,000 UNITS/500 ML BAG IV SCH (11:28)
--- NOTE | 2021-01-06 11:38 | Electrocardiogram Report ---
Test Reason : Blood Pressure : / mmHG Vent. Rate : 102 BPM Atrial Rate : 102 BPM P-R Int : 192 ms QRS Dur : 154 ms QT Int : 382 ms P-R-T Axes : 072 011 157 degrees QTc Int : 497 ms Sinus tachycardia Left bundle branch block Abnormal ECG When compared with ECG of 27-JUN-2020 19:44, T wave inversion now evident in Inferior leads Confirmed by Aiden Burnett ([id number]) on 01/06/2021 11:38:15 AM Referred By: REFERRED SELF Confirmed By:Dawood Burnett
--- NOTE | 2021-01-06 11:57 | Pulmonary Consultation ---
Date of Consultation January 06, 2021 Assessment & Plan (1) Acute on chronic respiratory failure with hypoxia and hypercapnia: 80yo female with a complex PMH including nocturnal supplemental oxygen requirement, atrial flutter, and DVT/PE on warfarin who presented to the ED via EMS with [id number] respiratory failure. Patient presented with acute hypoxemic, hypercarbic respiratory failure in the setting of a two-week history of worsening somnolence. ABG reflects a respiratory acidosis with compensatory metabolic alkalosis. Patient's hypercarbia is likely multifactorial, with contributory considerations including respiratory depression secondary to opioid use, right hemidiaphragm paralysis, and obesity hypoventilation syndrome. Respiratory depression from opioid use seems to be the most likely cause of patient's recent worsening and acute presentation. Review of MACHINE [employer]ER data shows patient's home opioid regimen increased from 30 MME/day to 64 MME/day about a week ago (on 12/29/2020). Additionally, history provided to the admitting PA from patient's suggests patient's thought patient's somnolence was secondary to worsening pain, and responded by giving patient additional doses of pain meds. Patient's elevated right hemidiaphragm dates back to at least 2018; the etiology is unclear, as is the extent to which this has been worked up in the past. Further diagnostic testing could be performed to evaluate if the etiology is amenable to intervention. Patient does carry a history of asthma, though current asthma exacerbation is an unlikely etiology as patient is not bronchospastic. She was not wheezing on admission, nor during reexamination later in the morning, which was before she had received any nebulizer treatments. Regardless, outpatient pulmonary function testing is recommended for diagnostic clarity and determine if her current home regimen is appropriate. Patient is currently being worked up for PE; she does have a history of DVT/PE while on anticoagulation, and her INR was subtherapeutic on admission. A PE could contribute to respiratory distress, but this is not the sole cause of patient's current presentation, as a PE alone would not lead to hypercarbia. Additionally, a PE large enough to cause V/Q mismatch would not lead to hypoxem ia that resolves with supplemental oxygen, as patient's hypoxemia did. [id number] hypoxemic, hypercarbic respiratory failure Continue BiPAP as tolerated As clinical picture improves, transition to oxygen via nasal cannula as tolerated Wean FiO2 as tolerated, maintain O2 sat>88% Recommend avoiding opioid medications Recommend discontinuation of steroids History of home oxygen requirement Recommend 2-step prior to discharge Recommend nighttime oxygen requirement reevaluation with sleep study on an outpatient basis Recommend case management consult for assistance with inability to obtain home oxygen History of asthma Recommend PFTs on an outpatient basis Thank you the opportunity to participate in this patient's care. Please refer to Dr. Bains's documentation for further recommendations. Supervising Physician Co-Signing Physician Notes Patient seen and examined. EMR reviewed. Images independently reviewed. Agree with assessment and plan as noted by the family practice resident. This 80-year-old female with probable obesity hypoventilation syndrome is admitted with hypercarbic respiratory failure likely multifactorial as noted. Agree with plans to limit use of respiratory suppressant medications. I am unclear what the etiology of her elevated hemidiaphragm is but its been present dating back for several years. I see little utility in performing a sniff test at this point in time or an MRI of the cervical spine as it is unlikely the patient would be a candidate for any intervention even if she were to have cervical radiculopathy. The CT of the chest demonstrated no significant adenopathy or masses compressing the course of the phrenic nerve. This could be idiopathic or post viral. Typically unilateral diaphragmatic paralysis is well tolerated. However in the setting of obesity hypoventilation syndrome, this may be more clinically significant. Patient has had an elevated CO2 and certainly treatment with nocturnal positive airway pressure may be beneficial. Once her encephalopathy clears we will continue to use BiPAP nightly. Unclear if she would qualify for BiPAP leaving the hospital. Outpatient polysomnography would be recommended. I do not see PFTs in her chart so I am not sure that we can qualify her for an AVAPS. She is not bronchospastic currently and there is no indication for steroids or aggressive bronchodilators unless they offer her a significant clinical benefit. Weight loss is recommended. The patient may benefit from evaluation by the weight loss medical team in the outpatient setting. DNR status confirmed Thanks for the opportunity of participating in the care of this patient. We will continue to follow with you. Feel free to contact us with questions or concerns. History of Present Illness Attending Physician: So Reed MD History of Present Illness 80yo female who presented to the ED via EMS with [id number]-[id number] respiratory failure. PMH includes right hemidiaphragm paralysis, obesity, asthma, nighttime oxygen requirement, atrial flutter, and DVT/PE on warfarin, atrial flutter, and lumbar radiulopathy. Patient was unable to provide any history this morning, and so the following history is based on review of ED and admission notes. Patient has experienced a two-week history of increasing somnolence and shortness of breath, with acute worsening over the day prior to admission. Patient's called EMS due to worsening fatigue and shortness of breath. Of note, patient's reports that they have had difficulty obtaining home oxygen, possibly due to insurance reasons, and so patient has been without her nighttime home oxygen for about 1.5 months. Patient's also notes that he had been giving patient additional doses of opioid pain medication, which she takes for back pain. Patient's reported he did this out of concern that patient's worsening mental status may have been due to pain. When EMS arrived to patient's home, patient was noted to be hypoxemic, and was transported to [facility]. On arrival to the ED, patient was afebrile, tachycardic, and tachypneic. Patient's mental status was altered. Lung sounds were diminished, with rhonchi noted in lower gilbert; there was no noted wheezing. VBG was notable for acidemia, hypercarbia, and hypoxia. CBC was notable only for mild anemia. BMP was unremarkable and without anion gap. Patient's oxygen saturation normalized with supplemental oxygen and BiPAP. Ongoing workup continues. This morning, patient was examined in her hospital room. Patient was asleep but arousable. Patient appeared very fatigued but indicated that her shortness of breath was improving. Further ROS was not obtained as patient was very somn olent. Allergies Allergy/AdvReac Type Severity Reaction Status Date / Time aspirin Allergy Unknown Unknown Verified 01/06/21 07:40 Sulfa (Sulfonamide Allergy Unknown Unknown Verified 01/06/21 07:40 Antibiotics) Home Medications Medication Instructions Recorded Confirmed Type albuterol sulfate [Ventolin HFA] 2 puff INHALATION Q4 PRN 11/10/18 01/06/21 History alendronate 70 mg PO WK 11/10/18 01/06/21 History amitriptyline 25 mg PO HS 11/10/18 01/06/21 History carvedilol 12.5 mg PO BID 11/10/18 01/06/21 History gabapentin 100 mg PO TID 11/10/18 01/06/21 History lisinopril 5 mg PO QAM 11/10/18 01/06/21 History montelukast 10 mg PO HS 11/10/18 01/06/21 History duloxetine 30 mg PO HS 02/28/19 01/06/21 History fluticasone propion-salmeterol 1 inh INHALATION BID 03/03/19 01/06/21 History [Advair Diskus] pantoprazole 40 mg PO DAILY 07/22/19 01/06/21 History atorvastatin 20 mg PO DAILY 10/11/19 01/06/21 History levothyroxine 50 mcg PO DAILYBB 01/15/20 01/06/21 History warfarin [Jantoven] 5 mg PO 5XWK 01/15/20 01/06/21 History sumatriptan succinate 100 mg PO UD PRN 06/27/20 01/06/21 History albuterol sulfate [Proventil] 2.5 mg INHALATION Q4H PRN 01/06/21 01/06/21 History cholecalciferol (vitamin D3) 25 mcg PO DAILY 01/06/21 01/06/21 History cyanocobalamin (vitamin B-12) 1,000 mcg IM Q4WK 01/06/21 01/06/21 History hydromorphone 8 mg PO BID 01/06/21 01/06/21 History oxycodone-acetaminophen 1 tab PO Q6 PRN 01/06/21 01/06/21 History warfarin [Jantoven] 2.5 mg PO 2XWK 01/06/21 01/06/21 History Patient History Medical History (Updated 01/06/21 @ 09:39 by Fawn Sanchez PA-C) Asthma USES PRN INH 1 X WK Atrial flutter PT COULD NOT CONFIRM History of DVT (deep vein thrombosis) RLE - 20 YEARS AGO FOLLOWING INJURY History of endometriosis History of HI (myocardial infarction) 2017 - FOLLOWS W/ DR. JACOBSEN History of pulmonary embolism Hypertension Hypothyroidism Migraine On anticoagulant therapy On home oxygen therapy 2 LPM 02 QHS Osteoarthritis Osteoporosis Poor historian Pulmonary edema Pulmonary embolism (10/10/12) 20 YEARS AGO AFTER INJURY 30 YEARS AGO - POST OP CHOLEYCYSTECTOMY ON WARFARIN Sleep apnea NO DEVICE Surgical History History of appendectomy History of cardiac cath 2018 - [place] - NO STENTS History of cataract surgery History of section History of cholecystectomy History of colonoscopy History of esophagogastroduodenoscopy (EGD) History of left knee surgery History of tonsillectomy History of total abdominal hysterectomy and bilateral salpingo-oophorectomy History of tubal ligation Family History Father Esophageal cancer Social History Smoking Status: Unknown if ever smoked Second Hand Exposure: Yes (FAMILY MEMBERS CURRENTLY SMOKE); Hx Alcohol Use: No Hx Substance Use: No Preferred Language: Portuguese Communication Ability: Effective Visual Impairment: No Limitations Hearing Ability: Normal Emergency Technician Required: No Beliefs That Will Affect Care: None marital status: Current Living Situation: Spouse current occupational status: retired Feels Safe at Home: Yes Assistive Devices: Walker Review of Systems Review of Systems: Unobtainable due to reduced consciousness Physical Exam Physical Exam: Constitutional: tired-appearing, no acute distress, laying in hospital bed with head slightly elevated, wearing BiPAP mask HEENT: NCAT, no conjunctival injection, PERRL CV: rhythm regular, no murmur noted though auscultation was limited by noise of BiPAP machine Resp: good air movement, coarse rhonchi of mid and lower lung gilbert anteriorly, no wheezing appreciated, auscultation was limited by noise of BiPAP machine GI: soft, nondistended, nontender Neuro: moves each extremity upon command, answering questions appropriately with nodding her head, examination limited by patient somnolence and BiPAP mask Results & Data Results & Data ([facility]) Vital Signs (Past 12 Hours) Vital Signs Temp Pulse Pulse Resp BP BP Pulse Ox 01/06/21 11:08 88 18 96 01/06/21 11:06 88 18 96 01/06/21 10:10 86 23 91 01/06/21 09:35 91 01/06/21 08:16 90 17 142/73 H 94 01/06/21 08:00 90 17 93 01/06/21 07:38 90 23 94 01/06/21 07:37 92 01/06/21 07:00 93 H 28 H 139/81 01/06/21 06:32 98 H 29 H 93 01/06/21 06:30 99 H 29 H 129/103 H 94 01/06/21 06:29 101 H 22 188/85 H 99 01/06/21 06:28 100 H 25 H 203/98 H 96 01/06/21 06:21 98 H 24 97 01/06/21 06:00 101 H 23 100 01/06/21 05:50 103 H 30 H 98 01/06/21 05:48 36.6 C 103 H 23 203/98 H 97 Resident Activity Tracking Resident Involvement: Resident Care Provided Care Provided: Adult Hospital Medicine
[2021-01-06 13:11] LABS: Amphetamines+Metham, Urine Neg (Neg); Barbiturates, Urine Neg (Neg); Benzodiazepine, Urine Neg (Neg); Cocaine, Urine Neg (Neg); MDMA (Ecstacy), Urine Neg (Neg); Methadone, Urine Neg (Neg); Opiate, Urine Pos (Neg); Phencyclidine, Urine Neg (Neg)
--- NOTE | 2021-01-06 15:25 | Billing Data ---
Date of Service January 06, 2021 Patient is critically ill with hypoxemic and hypercarbic respiratory failure. She has significant potential for clinical deterioration and . A total of 50 minutes critical care time was spent in evaluation management of this patient. Coding Level of Care Code Critical Care 1st 30-74 mins Time Spent (min) 45
[2021-01-06] MEDS ORDERED: WARFARIN SOD 2.5 MG TAB PO SCH (16:00)
[2021-01-06] MEDS: methylPREDNISolone 40 MG in SYRINGE 0 ML IV SCH ×2 (17:45→22:00)
--- NOTE | 2021-01-06 18:22 | Ultrasound Report ---
BILATERAL LOWER EXTREMITY VENOUS DOPPLER HISTORY: elevated D dimer /eval for DVT COMPARISON STUDY: None. FINDINGS: Small linear echogenic focus along the periphery of the right common femoral vein. This fav ors chronic nonocclusive thrombus. The remaining bilateral lower extremity deep venous structures are patent. Incidental note is made of a 3.9 x 2.3 x 1.2 cm hypoechoic focus within the left mid medial calf. No associated color flow. This could represent a complex cyst or hematoma. IMPRESSION: 1. No acute DVT within the right or left lower extremity. 2. Small amount of chronic nonocclusive thrombus within the right common femoral vein. 3. A 3.9 x 2.3 x 1.2 cm hypoechoic avascular focus within the left mid calf. This could represent a s mall hematoma or complex cyst. One-month ultrasound follow-up recommended to ensure resolution and ex clude the less likely possibility of a soft tissue mass. ACT 112: Positive. There are findings on this exam that require communication between the performing entity and the patient following Patient Test Result Information Act ([place] Act 112) guidelines. Electronically signed by: Clyde Jensen M.D. 01/06/2021 6:21 PM
[2021-01-06 18:48] LABS: Partial Thromboplastin Ratio 2.9
[2021-01-07] MEDS: FLUTICASONE/VILANTEROL 200/25MCG 14 PUFFS/INHALER INH SCH ×2 (00:27→19:57)
[2021-01-07 02:29] LABS: Partial Thromboplastin Ratio 3.8
[2021-01-07 02:41] LABS: Partial Thromboplastin Time 101.2 Seconds (21.0-31.0)
[2021-01-07] MEDS: ALBUT/IPRATROP 3MG/0.5MG NEB 3 ML VIAL INH SCH ×5 (03:19→19:10)
[2021-01-07] MEDS: methylPREDNISolone 40 MG in SYRINGE 0 ML IV SCH (06:07)
[2021-01-07] MEDS: AMPICILLIN/SULBACTAM SOD 3,000 MG in 0.9 % SODIUM CHLORIDE 100 ML IV SCH ×3 (06:07→17:53)
[2021-01-07 06:15] LABS: Hematocrit (blood only) 31.8 % (37-47); Hemoglobin 10.5 g/dL (12.0-16.0); Mean Platelet Volume 10.3 fL (7.4-10.4); Platelet Count 140 K/uL (130-400); RDW Coefficient of Variation 12.9 % (11.5-14.5); White Blood Count 13.51 K/uL (4.8-10.8)
[2021-01-07 06:24] LABS: INR 1.3 (0.9-1.1)
[2021-01-07 06:46] LABS: BUN Creatinine Ratio 22.2 (10-20); Calcium 8.8 mg/dl (8.5-10.1); Creatinine Clr Calc Pharmacy 44.7 ml/min; Est GFR (African American) 50.6 ml/min; Est GFR (Non-African American) 43.7 ml/min; Potassium 4.1 mmol/L (3.5-5.1)
[2021-01-07 10:38] LABS: Partial Thromboplastin Ratio 1.2; Partial Thromboplastin Time 31.4 Seconds (21.0-31.0)
[2021-01-07] MEDS ORDERED: HEPARIN SOD (PORCINE) 1000 UNIT/ML IV ONE (10:47)
--- NOTE | 2021-01-07 10:48 | Pulmonology Progress Note ---
Date of Service January 07, 2021 Assessment & Plan (1) Acute on chronic respiratory failure with hypoxia and hypercapnia: (2) Acute metabolic encephalopathy: Impression: 80-year-old female with likely obesity hypoventilation syndrome as well as elevated right hemidiaphragm with hypercarbic respiratory failure in the setting of recent increase in her home narcotic dose. She is better after overnight on BiPAP. Recommendations: 1. Acute on chronic hypercarbic respiratory failure: Recommend the patient use BiPAP nightly. Sleep study should be performed if it has not been done previously to evaluate for sleep disordered breathing/obesity hypoventilation syndrome and determine optimal settings. Patient relates that she has a BiPAP machine at home. If so, she should bring that in. If not, may need case management evaluation to see whether or not we can get her set up with noninvasive positive pressure ventilation at discharge. 2. Elevated right hemidiaphragm. Unclear what work-up she has had in the past. As noted previously, I do not think this would loom changer so we will defer additional work-up. It certainly could be aggravating her hypercarbia especially in the setting of obesity and potential sleep disordered breathing. 3. Reported history of asthma: PFTs are not available to review. She is not bronchospastic currently and I do not see a role for bronchodilators steroids or antibiotics currently from a pulmonary standpoint. We will continue to follow with you. Management of the patient's other medical issues per the primary service Admission and Anticipated Discharge Date Admission Date: January 06, 2021 Subjective Patient is awake alert and conversant. She denies any respiratory issues currently. No cough wheezing increased work of breathing or sputum production. Review of Systems Review of Systems: All systems reviewed & are unremarkable except as noted in HPI & below Physical Exam Constitutional: WD/WN, vitals as above Neck: trachea midline, no thyromegaly Respiratory: normal respiratory effort, lungs clear to auscultation Cardiovascular: RRR, no murmur, no edema Gastrointestinal (Abdomen): normal bowel sounds, soft, nontender, no hepatosp lenomegaly Musculoskeletal: Extremities: extremities normal to inspection Skin: no rashes, warm and dry Neurologic: Nonfocal exam Lymphatic: no cervical lymphadenopathy Results & Data Results & Data ([facility]) Vital Signs (Past 12 Hours) Vital Signs Temp Pulse Pulse Resp BP Pulse Ox 01/07/21 07:43 37.2 C 102 H 18 142/94 H 97 01/07/21 07:16 105 H 18 95 01/07/21 07:13 105 H 18 95 01/07/21 03:23 88 12 97 01/07/21 03:10 36.4 C L 87 24 146/92 H 96 01/07/21 00:14 37.2 C 80 24 136/77 96 01/07/21 00:00 90 Laboratory Results 01/07/21 05:59 01/07/21 05:59 Diagnostic Findings No new imaging PG Care Time/CCT Total # of Minutes Spent Total Time Spent with Patient: Total time spent is greater than 50% in coordination of care (as documented) at patient's floor/unit and/or counseling patient: Coding Level of Care Code 29985 Subseq Hosp Care Lvl 3 Diagnoses Acute on chronic respiratory failure with hypoxia and hypercapnia J96.21; J96.22 Acute metabolic encephalopathy G93.41
[2021-01-07] MEDS ORDERED: HEPARIN IV BOLUS 3,000 UNITS in SYRINGE 0 ML IV ONE (11:00)
[2021-01-07] MEDS: carvediloL 12.5 MG TAB PO SCH ×2 (11:38→19:57)
[2021-01-07] MEDS: HEPARIN SODIUM/DEXTROSE 25,000 UNITS/500 ML BAG IV SCH (14:46)
[2021-01-07] MEDS ORDERED: WARFARIN SOD 5 MG TAB PO SCH (16:00)
--- NOTE | 2021-01-07 17:27 | Hospitalist Progress Note ---
Date of Service January 07, 2021 Assessment & Plan (1) Acute on chronic respiratory failure with hypoxia and hypercapnia: (2) Acute respiratory acidosis: likely secondary to narcotic overdose in the setting of OHS, Right hemidiaphragm paralysis per admitting service notes: This is a 80yo F with a PMH of asthma, nocturnal hypoxemia, dependence on supplemental O2, CAD, HTN, history of DVT/PE on coumadin, CKD III, chronic back pain and fibromyalgia on chronic narcotics and other medical problems listed below who presents with lethargy and hypoxia. Initially 83% on room air, now saturating at 93% on bipap Somnolent, VBG pH 7.2, pCO2 66, no leukocytosis, d-dimer elevated at 1,570, procal wnl, covid PCR negative - ABG pending Known nocturnal hypoxemia requiring 2L HS but ran out of O2 1.5 mo ago due to problems with insurance coverage, per No documented COPD but obesity hypoventilation syndrome a likely contributor Afebrile, procal wnl but right perihilar opacities on CXR - continue empiric rocephin for possible underlying pulm infxn and flagyl for aspiration for 48 hr s, follow cultures Started on IV Solumedrol, scheduled duonebs Per discussion with , patient is a DNR/DNI 01/07 awake, alert now although mostly confused off Bipap, on Oxymask d/c Steroids, antibiotics narcotics on hold monitor closely (3) Acute metabolic encephalopathy: per admitting service notes: In setting of prolonged hypoxia with noncompliance with home oxygen, also on chronic narcotics for back pain/fibromyalgia CT head without hemorrhage, mass effect, or evidence of acute territorial ischemia by CT criteria Narcan administered in case opioids contributing to respiratory failure 01/07 awake, but still mostly confused Narcotics on hold- Dilaudid and Percocet Amitryptiline, Duloxetine, Gabapentin on hold cultures pending monitor closely PT/OT eval (4) History of pulmonary embolism: per admitting service notes: H/o DVT/PE on care home anticoagulation with coumadin Bilateral venous dopplers ordered for eval of DVT: negative Bridging with IV heparin until coumadin is therapeutic - INR 1.7 (5) Lumbar radiculopathy, chronic: Home regimen includes hydromorphone 8mg PO BID, Percocet 5-325mg Q6H PRN, gabapentin 100mg TID Holding for now (6) CAD (coronary artery disease): Continue Carvedilol, Lisinopril (7) Hypertension: Home regimen includes carvedilol, lisinopril (8) Hypothyroidism: Continue levothyroxine DVT Ppx: Continue coumadin, IV heparin bridge Code status: DNR/DNI per discussion with PCP: Marika Salas Dispo: PT/OT evaluation, may need Acute Rehab Admission and Anticipated Discharge Date Admission Date: January 06, 2021 Subjective ff up for acute on chronic respiratory failure, etc seen resting in chair, alert, oriented to person, not in distress conversant but mostly confused states she feels ok does not recall events leading to admission reports breathing is fine, no cough, fever/chills denies chest pain, palpitations, dizziness reports chronic hip pain no other symptoms Review of Systems Review of Systems: All systems reviewed & are unremarkable except as noted in Subjective Physical Exam Physical Exam: General- oriented x 1, not in distress, speaks in sentences with no effort or accessory muscle use Head- atraumatic Eyes- PERRL, EOMI, anicteric ENT- oropharynx clear Neck- supple, no JVD, no adenopathy, no thyromegaly; carotids +2/2, no bruits appreciated Lungs- clear to auscultation bilaterally, no rales/wheezes Heart- normal rate, regular rhythm; no murmur, no gallop, no rub appreciated Abdomen- normal bowel sounds, nondistended, soft, nontender, no masses or hepatosplenomegaly Extremities- no pretibial edema, no calf tenderness; peripheral pulses intact Neuro- alert, oriented x 1; CN 2-12 grossly intact except decresaed hearing; motor 5/5 bilaterally;sensation 100% on all extremities; no other gross focal neurologic deficits Skin- warm & dry Results & Data Results & Data ([facility]) Vital Signs (Past 12 Hours) Vital Signs Temp Pulse Pulse Resp BP Pulse Ox 01/07/21 15:23 37.2 C 102 H 18 147/121 H 93 01/07/21 15:03 93 H 18 95 01/07/21 11:09 113 H 18 96 01/07/21 11:00 36.9 C 106 H 22 151/100 H 95 01/07/21 07:43 37.2 C 102 H 18 142/94 H 97 01/07/21 07:16 105 H 18 95 01/07/21 07:13 105 H 18 95 all noted and reviewed including below Laboratory Results Laboratory Results - last 24 hr 01/06/21 01/06/21 01/07/21 18:14 18:14 01:47 WBC RBC Hgb Hct MCV MCH MCHC RDW Std Deviation RDW Coeff of Vijay Plt Count MPV PT INR APTT 76.0 H* 101.2 H* PTT Ratio 2.9 3.8 Sodium Potassium Chloride Carbon Dioxide Anion Gap BUN Creatinine Est Cr Clr Drug Dosing Est GFR ( Amer) Est GFR (Non-Af Amer) BUN/Creatinine Ratio Glucose Lactate 1.0 Calcium 01/07/21 01/07/21 01/07/21 05:59 05:59 05:59 WBC 13.51 H RBC 3.00 L Hgb 10.5 L Hct 31.8 L MCV 106.0 H MCH 35.0 H MCHC 33.0 RDW Std Deviation 50.0 H RDW Coeff of Vijay 12.9 Plt Count 140 MPV 10.3 PT 13.0 H INR 1.3 H APTT PTT Ratio Sodium 137 Potassium 4.1 Chloride 103 Carbon Dioxide 28 Anion Gap 6.0 BUN 26 H Creatinine 1.19 Est Cr Clr Drug Dosing 44.7 Est GFR ( Amer) 50.6 Est GFR (Non-Af Amer) 43.7 BUN/Creatinine Ratio 22.2 H Glucose 115 H Lactate Calcium 8.8 01/07/21 10:17 WBC RBC Hgb Hct MCV MCH MCHC RDW Std Deviation RDW Coeff of Vijay Plt Count MPV PT INR APTT 31.4 H PTT Ratio 1.2 Sodium Potassium Chloride Carbon Dioxide Anion Gap BUN Creatinine Est Cr Clr Drug Dosing Est GFR ( Amer) Est GFR (Non-Af Amer) BUN/Creatinine Ratio Glucose Lactate Calcium (1) Hypertension Hypertension type: unspecified Qualified Code(s): I10 - Essential (primary) hypertension
[2021-01-07 18:56] LABS: Partial Thromboplastin Ratio 2.2
[2021-01-07 18:59] LABS: Partial Thromboplastin Time 57.3 Seconds (21.0-31.0)
[2021-01-07] MEDS: MONTELUKAST SODIUM 10 MG TABLET PO SCH (19:57)
[2021-01-08 02:10] LABS: Partial Thromboplastin Ratio 3.2
[2021-01-08 02:17] LABS: Partial Thromboplastin Time 83.9 Seconds (21.0-31.0)
[2021-01-08] MEDS: ALBUT/IPRATROP 3MG/0.5MG NEB 3 ML VIAL INH SCH ×3 (03:11→07:13)
[2021-01-08 06:38] LABS: Hematocrit (blood only) 28.1 % (37-47); Hemoglobin 9.6 g/dL (12.0-16.0); Mean Corpuscular Hemoglobin 35.3 pg (25-34); Mean Corpuscular Hgb Conc 34.2 g/dL (32-36); Mean Corpuscular Volume 103.3 fL (80-100); Mean Platelet Volume 9.9 fL (7.4-10.4); Platelet Count 182 K/uL (130-400); RDW Coefficient of Variation 13.1 % (11.5-14.5); RDW Standard Deviation 49.2 fL (36.4-46.3); Red Blood Count 2.72 M/uL (4.2-5.4)
[2021-01-08 06:54] LABS: INR 1.2 (0.9-1.1); Prothrombin Time 12.4 Seconds (9.0-12.0)
[2021-01-08 06:56] LABS: BUN Creatinine Ratio 28.8 (10-20); Calcium 8.6 mg/dl (8.5-10.1); Creatinine Clr Calc Pharmacy 40.6 ml/min; Est GFR (African American) 44.7 ml/min; Est GFR (Non-African American) 38.5 ml/min; Potassium 3.9 mmol/L (3.5-5.1)
[2021-01-08] MEDS: PANTOprazole 40 MG TAB PO SCH (08:22)
[2021-01-08] MEDS: carvediloL 12.5 MG TAB PO SCH ×2 (08:22→19:53)
[2021-01-08] MEDS: lisinopril 5 MG TAB PO SCH (08:22)
[2021-01-08] MEDS: LEVOTHYROXINE SODIUM 50 MCG TABLET PO SCH (08:22)
[2021-01-08] MEDS ORDERED: ALBUT/IPRATROP 3MG/0.5MG NEB 3 ML VIAL INH PRN (08:40)
--- NOTE | 2021-01-08 10:00 | Communication Note ---
Date of Service: January 08, 2021 case reviewed as request of Dr. Whyte as on psychoactive medications that are held due to AMS secondary to respiratory failure/chronic hypoxia. CT head ne gative. Confirmed that patient is not agitated/in need of prns. Medically compromised with elevated WBC, BP, P, H&H low, Cr increased today to 1.32. Appears that amitryptiline 25 mg po qhs, and duolextine 30 mg daily for fibromyalgia rather than primary psych. Gapapentin also held as well as opiates. Dr. Whyte wanted to clarify if TCA and Cymbalta needed taper. Given overall presentation, renal function and circumstance I would not taper. More at risk for opiate withdrawal than discontinuation syndrome from those agents. would defer dosing/restart of TCA and Cymbalta to medical, but if possible would advise limited polypharmacy given risk of serotonin syndrome with other agents (tripatan, NSAIDs, etc).
[2021-01-08 10:18] LABS: Partial Thromboplastin Ratio 2.1
[2021-01-08 10:45] LABS: Partial Thromboplastin Time 55.7 Seconds (21.0-31.0)
--- NOTE | 2021-01-08 10:45 | Pulmonology Progress Note ---
Date of Service January 08, 2021 Assessment & Plan (1) Acute on chronic respiratory failure with hypoxia and hypercapnia: (2) Acute metabolic encephalopathy: Impression: 80-year-old female with likely obesity hypoventilation syndrome as well as elevated right hemidiaphragm with hypercarbic respiratory failure in the setting of recent increase in her home narcotic dose. She is better after overnight on BiPAP. Recommendations: 1. Acute on chronic hypercarbic respiratory failure: Recommend the patient use BiPAP nightly. Sleep study should be performed if it has not been done previously to evaluate for sleep disordered breathing/obesity hypoventilation syndrome and determine optimal settings. Patient relates that she has a BiPAP machine at home. If so, she should bring that in. If not, may need case management evaluation to see whether or not we can get her set up with noninvasive positive pressure ventilation at discharge. 2. Elevated right hemidiaphragm. Unclear what work-up she has had in the past. 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 It certainly could be aggravating her hypercarbia especially in the setting of obesity and potential sleep disordered breathing. 3. Reported history of asthma: PFTs are not available to review. She is not bronchospastic currently and I do not see a role for bronchodilators steroids or antibiotics currently from a pulmonary standpoint. Patient appears significantly improved clinically. Pulmonary will sign off at this point time. Feel free to contact us with questions or concerns Admission and Anticipated Discharge Date Admission Date: January 06, 2021 Subjective Patient seen and examined. She is awake alert. No complaints. She denies chest pain or palpitations. She tolerated BiPAP last night. Review of Systems Review of Systems: All systems reviewed & are unremarkable except as noted in HPI & below Physical Exam Constitutional: WD/WN, vitals as above Neck: trachea midline, no thyromegaly Respiratory: normal respiratory effort, lungs clear to auscultation Cardiovascular: RRR, no murmur, no edema Gastrointestinal (Abdomen): normal bowel sounds, soft, nontender, no hepatosplenomegaly Musculoskeletal: Extremities: extremities normal to inspection Skin: no rashes, warm and dry Lymphatic: no cervical lymphadenopathy Results & Data Results & Data ([facility]) Vital Signs (Past 12 Hours) Vital Signs Temp Pulse Pulse Resp BP Pulse Ox 01/08/21 08:13 36.9 C 115 H 18 192/96 H 93 01/08/21 07:14 87 16 90 01/08/21 03:53 37.4 C 94 H 17 168/88 H 95 01/08/21 03:37 90 90 17 97 01/08/21 00:00 88 01/07/21 23:16 37.3 C 99 H 20 165/96 H 92 01/07/21 22:53 92 H 16 96 Laboratory Results 01/08/21 06:19 01/08/21 06:19 Diagnostic Findings No new films PG Care Time/CCT Total # of Minutes Spent Total Time Spent with Patient: Total time spent is greater than 50% in coordination of care (as documented) at patient's floor/unit and/or counseling patient: Coding Level of Care Code 49374 Subseq Hosp Care Lvl 2 Diagnoses Acute on chronic respiratory failure with hypoxia and hypercapnia J96.21; J96.22 Acute metabolic encephalopathy G93.41
[2021-01-08] MEDS ORDERED: traMADol HCL 50 MG TABLET ONE (14:13)
[2021-01-08] MEDS: ACETAMINOPHEN 500 MG TAB PO PRN (14:16)
[2021-01-08] MEDS: traMADol HCL 50 MG TABLET PO PRN (14:17)
--- NOTE | 2021-01-08 15:41 | Hospitalist Progress Note ---
Date of Service January 08, 2021 Assessment & Plan (1) Acute on chronic respiratory failure with hypoxia and hypercapnia: (2) Acute respiratory acidosis: likely secondary to narcotic overdose in the setting of OHS, Right hemidiaphragm paralysis per admitting service notes: This is a 80yo F with a PMH of asthma, nocturnal hypoxemia, dependence on supplemental O2, CAD, HTN, history of DVT/PE on coumadin, CKD III, chronic back pain and fibromyalgia on chronic narcotics and other medical problems listed below who presents with lethargy and hypoxia. Initially 83% on room air, now saturating at 93% on bipap Somnolent, VBG pH 7.2, pCO2 66, no leukocytosis, d-dimer elevated at 1,570, procal wnl, covid PCR negative - ABG pending Known nocturnal hypoxemia requiring 2L HS but ran out of O2 1.5 mo ago due to problems with insurance coverage, per No documented COPD but obesity hypoventilation syndrome a likely contributor Afebrile, procal wnl but right perihilar opacities on CXR - continue empiric rocephin for possible underlying pulm infxn and flagyl for aspiration for 48 hr s, follow cultures Started on IV Solumedrol, scheduled duonebs Per discussion with , patient is a DNR/DNI 01/08 awake, alert, oriented, back to baseline MS off Bipap, Oxymask --> now on room air d/c Steroids, antibiotics monitor closely (3) Acute metabolic encephalopathy: per admitting service notes: In setting of prolonged hypoxia with noncompliance with home oxygen, also on chronic narcotics for back pain/fibromyalgia CT head without hemorrhage, mass effect, or evidence of acute territorial ischemia by CT criteria Narcan administered in case opioids contributing to respiratory failure 01/08 awake, but still mostly confused will restart Percocet cautiously, HOLD Dilaudid PO restart Gabapentin, HOLD Amitryptiline, Duloxetine will order pain management SVC consult blood cultures negative monitor closely PT/OT eval (4) History of pulmonary embolism: per admitting service notes: 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 Bilateral venous dopplers ordered for eval of DVT: negative Bridging with IV heparin until INR is therapeutic - INR 1.7 coumadin 7.5mg daily (5) Lumbar radiculopathy, chronic: management per above (6) CAD (coronary artery disease): Continue Carvedilol, Lisinopril (7) Hypertension: Home regimen includes carvedilol, lisinopril (8) Hypothyroidism: Continue levothyroxine DVT Ppx: Continue coumadin, IV heparin bridge Code status: DNR/DNI per discussion with PCP: Marika Salas Dispo: PT/OT evaluation, may need Acute Rehab Admission and Anticipated Discharge Date Admission Date: January 06, 2021 Subjective ff up for acute respiratory failure, etc seen sitting up in bed, alert, oriented x 3 back to baseline mental status per main symptom is left hip pain no weakness, numbness no other symptoms Review of Systems Review of Systems: All systems reviewed & are unremarkable except as noted in Subjective Physical Exam Physical Exam: General- oriented x 3, not in distress, speaks in sentences with no effort or accessory muscle use Eyes- anicteric Neck- no JVD Lungs- clear breath sounds bilaterally Heart- normal rate, regular rhythm; no murmurs Abdomen- normal bowel sounds, nondistended, soft, nontender Extremities- no pretibial edema, no calf tenderness left hip: no erythema/warmth/tenderness Neuro- alert, oriented x 3; no gross focal neurologic deficits Skin- warm & dry Results & Data Results & Data ([facility]) Vital Signs (Past 12 Hours) Vital Signs Temp Pulse Resp BP Pulse Ox 01/08/21 11:00 36.8 C 98 H 18 149/77 H 96 01/08/21 08:13 36.9 C 115 H 18 192/96 H 93 01/08/21 07:14 87 16 90 01/08/21 03:53 37.4 C 94 H 17 168/88 H 95 (1) Hypertension Hypertension type: unspecified Qualified Code(s): I10 - Essential (primary) hypertension
[2021-01-08] MEDS ORDERED: WARFARIN SOD 7.5 MG TAB PO SCH (16:00)
[2021-01-08] MEDS: oxyCODONE/ACETAMINOPHEN 5mg/325mg TAB PO PRN (16:13)
[2021-01-08 18:41] LABS: Codeine Urine NEGATIVE ng/mL (<50); Hydrocodone Urine NEGATIVE ng/mL (<50); Hydromor Urine 4420 ng/mL (<50); Morphine Urine NEGATIVE ng/mL (<50); Norhydrocodone Conf Ur NEGATIVE ng/mL (<50); Noroxycodone Urine 1240 ng/mL (<50); Oxycodone Urine 925 ng/mL (<50); Oxymorph Urine 333 ng/mL (<50)
[2021-01-08] MEDS: FLUTICASONE/VILANTEROL 200/25MCG 14 PUFFS/INHALER INH SCH (19:54)
[2021-01-08] MEDS: HEPARIN SODIUM/DEXTROSE 25,000 UNITS/500 ML BAG IV SCH (19:54)
[2021-01-08] MEDS: MONTELUKAST SODIUM 10 MG TABLET PO SCH (19:54)
[2021-01-09] MEDS: oxyCODONE/ACETAMINOPHEN 5mg/325mg TAB PO PRN (04:10)
[2021-01-09] MEDS: LEVOTHYROXINE SODIUM 50 MCG TABLET PO SCH (04:11)
[2021-01-09 08:03] LABS: INR 1.6 (0.9-1.1); Partial Thromboplastin Ratio 2.3; Prothrombin Time 15.5 Seconds (9.0-12.0)
[2021-01-09 08:07] LABS: Partial Thromboplastin Time 59.9 Seconds (21.0-31.0)
[2021-01-09] MEDS: carvediloL 12.5 MG TAB PO SCH ×2 (08:28→21:12)
[2021-01-09] MEDS: PANTOprazole 40 MG TAB PO SCH (08:28)
[2021-01-09] MEDS: lisinopril 5 MG TAB PO SCH (08:28)
--- NOTE | 2021-01-09 08:53 | Pain Management Consultation ---
Date of Consultation January 09, 2021 Assessment & Plan (1) Acute on chronic respiratory failure with hypoxia and hypercapnia: (2) Opioid dependence: (3) Chronic anticoagulation: (4) Diffuse myofascial pain syndrome: (5) Chronic left hip pain: * Patient admitted with acute respiratory failure with hypoxia and hypercapnia potentially related to a recent adjustment of her outpatient opiate therapy. It appears the patient has been on chronic opiates for treatment of multiple pain complaints which has previously failed conservative management and prior injection therapies per her report. These records are unavailable for review relating to her prior treatments and potential underlying diagnoses. Patient appears to be followed by clinical pharmacist through [facility] pain management in the outpatient setting and prescribed her opiates by her PCP-Dr. Salas. Review of PDMP indicates a recent transition in June 2020 from hydrocodone/acetaminophen to oxycodone/acetaminophen 5/325#120/month with addition of hydromorphone ER 8 mg once daily filled on 11/15/2020 and then a second prescription for #60 filled on 12/29/2020. There appears to be a correlation with recent escalation of her opiates and her potential contributing presentation of altered mental status and hypoxia. Would not recommend resuming any long-acting opiate therapy at this time. Would recommend she continue with oxycodone/acetaminophen 5/325 mg 1 tablet p.o. every 4 hours as needed for breakthrough pain as written without change. Would recommend judicious use of opiates. Would also recommend patient have outpatient home health available to assist in medication management in the home due to concerns over opiate misuse-deliberate abuse is not suspected at this time. Would recommend close follow-up with her outpatient pain management team for further recommendations. Patient is a poor candidate for interventional treatment due to her comorbid medical conditions and chronic Coumadin therapy. Would defer any further diagnostic evaluation of her pain complaints given that her pain is typical in location and characteristic of chronic duration. Thank you for allowing us to participate in the care of Mrs. Breaux History of Present Illness Reason for Consultation: Severe hip pain Requesting Physician: Luis Whyte MD Attending Physician: Luis Whyte MD History of Present Illness Mrs. Breaux is a 80-year-old white female who was admitted on 01/06/2021 due to a ltered mental status and respiratory failure. The patient does not remember the events leading up to her hospital admission. There is report of shortness of breath and confusion and questionable compliance on supplemental oxygen in the home which led to respiratory failure/hypoxia upon arrival. There was no known fall in the home and head CT scan failed to reveal any acute changes/findings. There has been concern expressed over opiate contribution to her hypoxia and altered mental status due to some recent changes in the outpatient setting. Patient reports a history of chronic pain and is followed by [facility] pain management, she believes at [facility]. Patient reports pain in her entire left side involving the arm, trunk, low back, hip and lower extremity in nondermatomal pattern. Patient reports her predominant pain generator is the left hip region. She does have diagnosis of fibromyalgia per review of medical records. Patient reports injections have been tried in the lumbar spine in the past without benefit and deferred moving forward. She is uncertain as to the definitive etiology of her presenting left hip pain. Patient reports that her pain is minimal at this time while sitting rating it at a 2/10. Her pain can escalate to an 8/10 per her report. Her pain is fairly constant but can be exacerbated with positional change from sitting to standing or ambulating. She denies a true radicular pattern to her pain complaint. Patient reports chronic utilization of hydrocodone for many years with transition to oxycodone/OxyContin per her report over the past few months. She had reported transition to a long- acting opiate but she is uncertain as to the name over the past few weeks. Patient reports that as needed use of Percocet over the past 24 hours has been effective at diminishing the severity of her pain. Patient denies bowel or bladder incontinence or saddle anesthesias. She is not currently complaining of pain in the right low back, hip or right lower extremity. Patient has no further constitutional complaints. Plan of care discussed with Dr. Sarika Neal. Pain Assessment Full Body Front + Back: 1. Left hip/groin 2. Left arm 3. Left back 4. Left lower extremity have a nondermatomal Pain scale - at its best (0-10): 2 Pain scale - at its worst (0-10): 8 Allergies Allergy/AdvReac Type Severity Reaction Status Date / Time aspirin Allergy Unknown Unknown Verified 01/06/21 07:40 Sulfa (Sulfonamide Allergy Unknown Unknown Verified 01/06/21 07:40 Antibiotics) Home Medications Medication Instructions Recorded Confirmed Type albuterol sulfate [Ventolin HFA] 2 puff INHALATION Q4 PRN 11/10/18 01/06/21 History alendronate 70 mg PO WK 11/10/18 01/06/21 History amitriptyline 25 mg PO HS 11/10/18 01/06/21 History carvedilol 12.5 mg PO BID 11/10/18 01/06/21 History gabapentin 100 mg PO TID 11/10/18 01/06/21 History lisinopril 5 mg PO QAM 11/10/18 01/06/21 History montelukast 10 mg PO HS 11/10/18 01/06/21 History duloxetine 30 mg PO HS 02/28/19 01/06/21 History fluticasone propion-salmeterol 1 inh INHALATION BID 03/03/19 01/06/21 History [Advair Diskus] pantoprazole 40 mg PO DAILY 07/22/19 01/06/21 History atorvastatin 20 mg PO DAILY 10/11/19 01/06/21 History levothyroxine 50 mcg PO DAILYBB 01/15/20 01/06/21 History warfarin [Jantoven] 5 mg PO 5XWK 01/15/20 01/06/21 History sumatriptan succinate 100 mg PO UD PRN 06/27/20 01/06/21 History albuterol sulfate [Proventil] 2.5 mg INHALATION Q4H PRN 01/06/21 01/06/21 History cholecalciferol (vitamin D3) 25 mcg PO DAILY 01/06/21 01/06/21 History cyanocobalamin (vitamin B-12) 1,000 mcg IM Q4WK 01/06/21 01/06/21 History hydromorphone 8 mg PO BID 01/06/21 01/06/21 History oxycodone-acetaminophen 1 tab PO Q6 PRN 01/06/21 01/06/21 History warfarin [Jantoven] 2.5 mg PO 2XWK 01/06/21 01/06/21 History Pain History Pain Intensity Pain scale - at its best (0-10): 2 Pain scale - at its worst (0-10): 8 Patient History Medical History (Updated 01/09/21 @ 08:45 by Doc Headley PA-C) Asthma USES PRN INH 1 X WK Atrial flutter PT COULD NOT CONFIRM Chronic anticoagulation Chronic left hip pain Diffuse myofascial pain syndrome History of DVT (deep vein thrombosis) RLE - 20 YEARS AGO FOLLOWING INJURY History of endometriosis History of [place] (myocardial infarction) 2018 - FOLLOWS W/ DR. JACOBSEN History of pulmonary embolism Hypertension Hypothyroidism Migraine On anticoagulant therapy On home oxygen therapy 2 LPM 02 QHS Opioid dependence Osteoarthritis Osteoporosis Poor historian Pulmonary edema Pulmonary embolism (10/10/12) 20 YEARS AGO AFTER INJURY 30 YEARS AGO - POST OP CHOLEYCYSTECTOMY ON WARFARIN Sleep apnea NO DEVICE Surgical History History of appendectomy History of cardiac cath 2018 - [place] - NO STENTS History of cataract surgery History of section History of cholecystectomy History of colonoscopy History of esophagogastroduodenoscopy (EGD) History of left knee surgery History of tonsillectomy History of total abdominal hysterectomy and bilateral salpingo-oophorectomy History of tubal ligation Family History Father Esophageal cancer Social History Smoking Status: Never smoker Second Hand Exposure: Yes (FAMILY MEMBERS CURRENTLY SMOKE); Hx Alcohol Use: No Hx Substance Use: No Preferred Language: Northern Irish Communication Ability: Impaired Visual Impairment: No Limitations Hearing Ability: Normal Stockroom Associate Required: No Beliefs That Will Affect Care: None marital status: Current Living Situation: Spouse current occupational status: retired Other Information That Helps Us Care for You: No Feels Safe at Home: Yes Assistive Devices: Oxygen - Continuous and Walker Assistive Devices Comment: Lost insurance -qualification for home 02 1.5 months ago per report Physical Exam Physical Exam: General: Patient sitting up upon entering the room eating breakfast in no acute distress. Patient was oriented to person and place. Patient was somewhat confused throughout the visit. Oxygen in place via nasal cannula. Head: Normocephalic and atraumatic. ENT: No evidence of nasal or oral mucosal lesions. Mucous membranes are moist. Eyes: Pupils equal round reactive to light. Chest: Patient is tender to palpation over the costosternal junction bilaterally. Neck: Supple without adenopathy. Full range of motion. Diffusely tender through the paravertebral and mid trapezius musculature bilaterally slightly hyperalgesic response. Musculoskeletal: Patient has fairly diffuse myofascial tenderness to palpation. Patient is slightly hyperalgesic throughout the major muscle groups bilaterally and equal. Patient is tender at greater than 11/18 sites identified by ACR related to fibromyalgia with hyperalgesia. Abdomen: Soft and nondistended. No organomegaly. Bowel sounds active. Back/spine: Loss of lumbar lordosis. Diffusely tender across the lumbosacral region which is nonfocal to the midline, facet joints or SI joints. Limited range of motion all planes. Lower extremities: SLR negative bilaterally. Trace ankle and pretibial edema bilaterally. Diffuse generalized tenderness to direct outpatient in the major muscle groups of the lower extremities. Patient is tender over the pes anserine and greater trochanteric region to direct outpatient. Left hip is minimally tender with internal/external rotation. Strength testing 4/5 with dorsiflexion, plantar flexion and knee flexion/extension bilaterally. Strength 4/5 with left hip flexion/extension. Strength 4+/5 on the right with hip flexion/extension. Neurologic: Cranial nerves grossly intact. Ambulatory function not witnessed. Results ([facility]) Diagnostic Review Other Findings: Prior lumbar spine CT completed 11/10/2018 was reviewed which revealed a 25% anterior endplate wedge deformity about the T12 vertebral body which was age-indeterminate with 4 mm of retropulsion noted about the inferior aspect of the posterior endplate. Remote L3 compression deformity was also noted. Advanced multilevel degenerative changes. Patient also had a right hip x-ray completed on 11/10/2018 which revealed no acute fracture or dislocation. Mild right hip osteoarthritis was appreciated. There is no record of a left hip x-ray per review of [facility] medical records.
[2021-01-09 09:36] LABS: Calcium 8.1 mg/dl (8.5-10.1); Creatinine Clr Calc Pharmacy 39.4 ml/min; Est GFR (African American) 43.1 ml/min; Est GFR (Non-African American) 37.2 ml/min; Potassium 3.6 mmol/L (3.5-5.1)
[2021-01-09 09:45] LABS: Hemoglobin 6.8 g/dL (12.0-16.0); Mean Corpuscular Hemoglobin 35.1 pg (25-34); Mean Corpuscular Volume 103.1 fL (80-100); Mean Platelet Volume 10.5 fL (7.4-10.4); Platelet Count 145 K/uL (130-400); RDW Coefficient of Variation 13.2 % (11.5-14.5); RDW Standard Deviation 50.2 fL (36.4-46.3); Red Blood Count 1.94 M/uL (4.2-5.4)
[2021-01-09 09:51] LABS: Immature Granulocytes # (auto) 0.05 K/uL (0.00-0.02); Immature Granulocytes % (auto) 0.4 %; Lymphocytes # (auto) 1.17 K/uL (1.2-3.4); Lymphocytes % (auto) 9.9 %; Monocytes # (auto) 0.79 K/uL (0.11-0.59); Monocytes % (auto) 6.7 %; Neutrophils # (auto) 9.79 K/uL (1.4-6.5)
[2021-01-09 09:52] LABS: RBC Morphology Unremarkable
[2021-01-09 10:57] LABS: Hematocrit (blood only) 21.5 % (37-47); Hemoglobin 7.4 g/dL (12.0-16.0); Immature Granulocytes # (auto) 0.07 K/uL (0.00-0.02); Immature Granulocytes % (auto) 0.6 %; Lymphocytes # (auto) 1.04 K/uL (1.2-3.4); Lymphocytes % (auto) 9.1 %; Mean Corpuscular Hemoglobin 35.4 pg (25-34); Mean Corpuscular Volume 102.9 fL (80-100); Mean Platelet Volume 9.6 fL (7.4-10.4); Monocytes # (auto) 0.72 K/uL (0.11-0.59); Monocytes % (auto) 6.3 %; Neutrophils # (auto) 9.62 K/uL (1.4-6.5); Platelet Count 145 K/uL (130-400); RDW Standard Deviation 48.5 fL (36.4-46.3); Red Blood Count 2.09 M/uL (4.2-5.4); White Blood Count 11.45 K/uL (4.8-10.8)
[2021-01-09 10:58] LABS: Mean Corpuscular Hgb Conc 34.4 g/dL (32-36)
[2021-01-09] MEDS ORDERED: PANTOprazole 80 MG in DEXTROSE 5% 100 ML IV ONE (11:09)
[2021-01-09] MEDS ORDERED: PANTOPRAZOLE BOLUS/DRIP 1 EA IV STA (11:09)
[2021-01-09] MEDS: HEPARIN SODIUM/DEXTROSE 25,000 UNITS/500 ML BAG IV SCH (12:21)
[2021-01-09] MEDS: PANTOprazole 40 MG in DEXTROSE 5% 100 ML IV SCH ×2 (12:24→16:43)
--- NOTE | 2021-01-09 12:32 | CT Scan Report ---
CT SCAN OF THE ABDOMEN AND PELVIS WITHOUT CONTRAST CLINICAL HISTORY: Pain. Possible intra-abdominal hemorrhage. Patient on long-term anticoagulation. COMPARISON STUDY: 07/22/2019 TECHNIQUE: CT scan of the abdomen and pelvis was performed from the lung bases to the proximal femurs . Images are reviewed in the axial, sagittal, and coronal planes. IV contrast was not administered fo r this examination. A dose lowering technique was utilized adhering to the principles of ALARA. CT DOSE: 1010.55 mGy.cm FINDINGS: Lower chest: There is elevation of the right hemidiaphragm. There are right basilar opacities which h ave a linear configuration a ring subsegmental atelectatic change. There are bronchial wall calcifica tions. There is a trace pleural effusion. Liver: The unenhanced liver is normal in size, contour, and attenuation. There is no intrahepatic nikki iary ductal dilatation. Gallbladder: There is a suspected prior cholecystectomy. There is persistent fusiform dilatation of t he common bile duct which measures 22 mm in diameter Spleen: Normal in size and attenuation. Pancreas: Atrophic Adrenal glands: Unremarkable. Kidneys: There is a rim calcified 5.4 cm right renal lesion. This could represent a renal cyst or rim calcified chronic cystic capsular lesion. There is no hydronephrosis. There is a nonobstructing 2.5 mm left renal calculus. Bowel: There are no transition zones to indicate bowel obstruction. There is no evidence of acute div erticulitis. There is no evidence of acute appendicitis. Peritoneum: There is no intraperitoneal free air or abdominal ascites. There is a left-sided retroper itoneal hemorrhage involving the left iliopsoas muscle measuring 19 x 9 x 6 cm. There is a small amou nt of hemorrhage in the adjacent posterior pararenal fascia and paracolic gutter. There is also a sma ll amount of hemorrhage anterior to the iliopsoas. There is mild presacral edema. Vasculature: The abdominal aorta is normal in course and caliber. Adenopathy: None. Pelvic viscera: The uterus appears surgically absent Skeletal structures: Is redemonstration of a T12 burst fracture with retropulsion. There is a chronic superior endplate L3 compression fracture. IMPRESSION: 1. Interval development of a left-sided retroperitoneal iliopsoas hemorrhage measuring 19 x 9 x 6 cm. 2. No evidence of bowel obstruction. No evidence of free air. ACT 112: Negative or not required by law. Electronically signed by: Eric Lopez M.D. 01/09/2021 12:31 PM
[2021-01-09] MEDS ORDERED: PROTAMINE SULFATE 10 MG in DEXTROSE 5% 50 ML IV ONE ×2 (13:30→13:35)
[2021-01-09 16:04] LABS: Hematocrit (blood only) 21.7 % (37-47); Hemoglobin 7.4 g/dL (12.0-16.0); Mean Corpuscular Hemoglobin 35.4 pg (25-34); Mean Corpuscular Hgb Conc 34.1 g/dL (32-36); Mean Corpuscular Volume 103.8 fL (80-100); RDW Coefficient of Variation 13.1 % (11.5-14.5); RDW Standard Deviation 50.1 fL (36.4-46.3); Red Blood Count 2.09 M/uL (4.2-5.4); White Blood Count 10.84 K/uL (4.8-10.8)
[2021-01-09 16:14] LABS: Partial Thromboplastin Ratio 0.9; Partial Thromboplastin Time 22.9 Seconds (21.0-31.0)
[2021-01-09 16:31] LABS: Mean Platelet Volume 10.8 fL (7.4-10.4); Platelet Count 84 K/uL (130-400)
[2021-01-09 16:32] LABS: Immature Granulocytes # (auto) 0.08 K/uL (0.00-0.02); Immature Granulocytes % (auto) 0.7 %; Lymphocytes % (auto) 12.9 %; Monocytes # (auto) 0.52 K/uL (0.11-0.59); Monocytes % (auto) 4.8 %; Neutrophils # (auto) 8.84 K/uL (1.4-6.5); Neutrophils % (auto) 81.6 %; Platelet Estimate Decreased (Normal)
--- NOTE | 2021-01-09 17:02 | Hospitalist Progress Note ---
Date of Service January 09, 2021 Assessment & Plan (1) Acute on chronic respiratory failure with hypoxia and hypercapnia: (2) Acute respiratory acidosis: likely secondary to narcotic overdose in the setting of OHS, Right hemidiaphragm paralysis per admitting service notes: This is a 80yo F with a PMH of asthma, nocturnal hypoxemia, dependence on supplemental O2, CAD, HTN, history of DVT/PE on coumadin, CKD III, chronic back pain and fibromyalgia on chronic narcotics and other medical problems listed below who presents with lethargy and hypoxia. Initially 83% on room air, now saturating at 93% on bipap Somnolent, VBG pH 7.2, pCO2 66, no leukocytosis, d-dimer elevated at 1,570, procal wnl, covid PCR negative - ABG pending Known nocturnal hypoxemia requiring 2L HS but ran out of O2 1.5 mo ago due to problems with insurance coverage, per No documented COPD but obesity hypoventilation syndrome a likely contributor Afebrile, procal wnl but right perihilar opacities on CXR - continue empiric rocephin for possible underlying pulm infxn and flagyl for aspiration for 48 hr s, follow cultures Started on IV Solumedrol, scheduled duonebs Per discussion with , patient is a DNR/DNI 01/09 awake, alert, oriented, back to baseline MS off Bipap, Oxymask --> now 2 L NC d/c Steroids, antibiotics monitor closely (3) Acute metabolic encephalopathy: per admitting service notes: In setting of prolonged hypoxia with noncompliance with home oxygen, also on chronic narcotics for back pain/fibromyalgia CT head without hemorrhage, mass effect, or evidence of acute territorial ischemia by CT criteria Narcan administered in case opioids contributing to respiratory failure 01/09 awake, alert restarted Percocet cautiously, HOLD Dilaudid PO restarted Gabapentin, HOLD Amitryptiline, Duloxetine will order pain management SVC consult blood cultures negative monitor closely PT/OT eval (4) Hematoma of iliopsoas muscle: Hg decreased from [address] abdomen/pelv: IMPRESSION: 1. Interval development of a left-sided retroperitoneal iliopsoas hemorrhage measuring 19 x 9 x 6 cm. 2. No evidence of bowel obstruction. No evidence of free air. d/c heparin, warfarin discussed with Dr. Lumadue Protamine 10mg IV ordered to reverse Heparin as of 330pm, PTT 22, Hg 7.4 (stable) repeat Hg at 9pm monitor closely (5) History of pulmonary embolism: per admitting service notes: H/o DVT/PE on halfway anticoagulation with coumadin Bilateral venous dopplers ordered for eval of DVT: negative HOLD anticoagulation secondary to iliopsoas hematoma management per above (6) Lumbar radiculopathy, chronic: management per above (7) Hypertension: Home regimen includes carvedilol, lisinopril (8) CAD (coronary artery disease): Continue Carvedilol, Lisinopril (9) Hypothyroidism: Continue levothyroxine DVT Ppx: Continue coumadin, IV heparin bridge Code status: DNR/DNI per discussion with PCP: Marika Salas Dispo: PT/OT evaluation, may need Acute Rehab Admission and Anticipated Discharge Date Admission Date: January 06, 2021 Subjective ff up for altered MS, etc seen resting in bed, comfortable oriented x 3 not in distress denies headache, dizziness, chest pain, dyspnea does report mild L inguinal discomfort, no back pain no other symptoms Review of Systems Review of Systems: All systems reviewed & are unremarkable except as noted in Subjective Physical Exam Physical Exam: General- oriented x 2, not in distress, speaks in sentences with no effort or accessory muscle use Eyes- anicteric Neck- no JVD Lungs- clear breath sounds bilaterally, no rales/wheezes Heart- normal rate, regular rhythm; no murmurs Abdomen- normal bowel sounds, nondistended, soft, nontender no erythema/hematoma Extremities- no pretibial edema, no calf tenderness Neuro- alert, oriented x 2; no gross focal neurologic deficits Skin- warm & dry Results & Data Results & Data ([facility]) Vital Signs (Past 12 Hours) Vital Signs Temp Pulse Resp BP Pulse Ox 01/09/21 15:37 36.7 C 74 17 128/66 96 01/09/21 12:39 36.8 C 70 20 124/58 L 98 01/09/21 08:28 36.5 C 85 18 118/61 95 all noted and reviewed including below Laboratory Results Laboratory Results - last 24 hr 01/06/21 01/09/21 01/09/21 12:10 07:26 07:33 WBC 11.80 H RBC 1.94 L Hgb 6.8 L* Hct 20.0 L* MCV 103.1 H MCH 35.1 H MCHC 34.0 RDW Std Deviation 50.2 H RDW Coeff of Vijay 13.2 Plt Count 145 MPV 10.5 H Immature Gran % (Auto) 0.4 Neut % (Auto) 83.0 Lymph % (Auto) 9.9 [place] % (Auto) 6.7 Eos % (Auto) 0.0 Baso % (Auto) 0.0 Neut # (Auto) 9.79 H Lymph # (Auto) 1.17 L [place] # (Auto) 0.79 H Eos # (Auto) 0.00 Baso # (Auto) 0.00 Immature Gran # (Auto) 0.05 H Platelet Estimate RBC Morphology Unremarkable PT 15.5 H INR 1.6 H APTT 59.9 H* PTT Ratio 2.3 Sodium Potassium Chloride Carbon Dioxide Anion Gap BUN Creatinine Est Cr Clr Drug Dosing Est GFR ( Amer) Est GFR (Non-Af Amer) BUN/Creatinine Ratio Glucose Calcium Stool Occult Bld Scrn U Codeine Confrm GC/MS NEGATIVE Ur Morphine (GC/MS) NEGATIVE Ur Hydrocodone (GC/MS) NEGATIVE Ur Norhydrocodone NEGATIVE Ur Noroxycodone 1240 H Urine Oxycodone (GC/MS) 925 H U Oxymorphone GC/MS 333 H Ur Hydromorphone (GC/MS) 4420 H Drug Screen Comment SEE NOTE 01/09/21 01/09/21 01/09/21 07:33 10:48 12:45 WBC 11.45 H RBC 2.09 L Hgb 7.4 L Hct 21.5 L MCV 102.9 H MCH 35.4 H MCHC 34.4 RDW Std Deviation 48.5 H RDW Coeff of Vijay 13.0 Plt Count 145 MPV 9.6 Immature Gran % (Auto) 0.6 Neut % (Auto) 84.0 Lymph % (Auto) 9.1 [place] % (Auto) 6.3 Eos % (Auto) 0.0 Baso % (Auto) 0.0 Neut # (Auto) 9.62 H Lymph # (Auto) 1.04 L [place] # (Auto) 0.72 H Eos # (Auto) 0.00 Baso # (Auto) 0.00 Immature Gran # (Auto) 0.07 H Platelet Estimate RBC Morphology PT INR APTT PTT Ratio Sodium 137 Potassium 3.6 Chloride 104 Carbon Dioxide 29 Anion Gap 5.0 BUN 44 H Creatinine 1.36 H Est Cr Clr Drug Dosing 39.4 Est GFR ( Amer) 43.1 Est GFR (Non-Af Amer) 37.2 BUN/Creatinine Ratio 32.0 H Glucose 91 Calcium 8.1 L Stool Occult Bld Scrn Negative U Codeine Confrm GC/MS Ur Morphine (GC/MS) Ur Hydrocodone (GC/MS) Ur Norhydrocodone Ur Noroxycodone Urine Oxycodone (GC/MS) U Oxymorphone GC/MS Ur Hydromorphone (GC/MS) Drug Screen Comment 01/09/21 01/09/21 15:20 15:20 WBC 10.84 H RBC 2.09 L Hgb 7.4 L Hct 21.7 L MCV 103.8 H MCH 35.4 H MCHC 34.1 RDW Std Deviation 50.1 H RDW Coeff of Vijay 13.1 Plt Count 84 L MPV 10.8 H Immature Gran % (Auto) 0.7 Neut % (Auto) 81.6 Lymph % (Auto) 12.9 [place] % (Auto) 4.8 Eos % (Auto) 0.0 Baso % (Auto) 0.0 Neut # (Auto) 8.84 H Lymph # (Auto) 1.40 [place] # (Auto) 0.52 Eos # (Auto) 0.00 Baso # (Auto) 0.00 Immature Gran # (Auto) 0.08 H Platelet Estimate Decreased L RBC Morphology PT INR APTT 22.9 PTT Ratio 0.9 Sodium Potassium Chloride Carbon Dioxide Anion Gap BUN Creatinine Est Cr Clr Drug Dosing Est GFR ( Amer) Est GFR (Non-Af Amer) BUN/Creatinine Ratio Glucose Calcium Stool Occult Bld Scrn U Codeine Confrm GC/MS Ur Morphine (GC/MS) Ur Hydrocodone (GC/MS) Ur Norhydrocodone Ur Noroxycodone Urine Oxycodone (GC/MS) U Oxymorphone GC/MS Ur Hydromorphone (GC/MS) Drug Screen Comment (1) Hypertension Hypertension type: unspecified Qualified Code(s): I10 - Essential (primary) hypertension
[2021-01-09] MEDS ORDERED: SODIUM CHLORIDE 0.9% 250 ML IV PRN (17:17)
[2021-01-09] MEDS: MONTELUKAST SODIUM 10 MG TABLET PO SCH (21:12)
[2021-01-09] MEDS: FLUTICASONE/VILANTEROL 200/25MCG 14 PUFFS/INHALER INH SCH (21:12)
[2021-01-09] MEDS: GABAPENTIN 100 MG CAP PO SCH (21:15)
[2021-01-09 21:22] LABS: Hematocrit (blood only) 21.8 % (37-47); Hemoglobin 7.5 g/dL (12.0-16.0)
[2021-01-10] MEDS ORDERED: SODIUM CHLORIDE 0.9% 250 ML IV PRN (01:35)
[2021-01-10] MEDS: LEVOTHYROXINE SODIUM 50 MCG TABLET PO SCH (05:44)
[2021-01-10] MEDS: carvediloL 12.5 MG TAB PO SCH ×2 (07:57→20:37)
[2021-01-10] MEDS: GABAPENTIN 100 MG CAP PO SCH ×2 (07:57→20:37)
[2021-01-10] MEDS: PANTOprazole 40 MG TAB PO SCH (07:58)
[2021-01-10] MEDS: lisinopril 5 MG TAB PO SCH (07:58)
[2021-01-10 08:11] LABS: Prothrombin Time 19.5 Seconds (9.0-12.0)
[2021-01-10 08:23] LABS: Basophils # (auto) 0.01 K/uL (0-0.2); Basophils % (auto) 0.1 %; Eosinophils # (auto) 0.01 K/uL (0-0.5); Eosinophils % (auto) 0.1 %; Hematocrit (blood only) 25.3 % (37-47); Hemoglobin 8.7 g/dL (12.0-16.0); Immature Granulocytes # (auto) 0.16 K/uL (0.00-0.02); Immature Granulocytes % (auto) 1.7 %; Lymphocytes # (auto) 1.62 K/uL (1.2-3.4); Mean Corpuscular Hemoglobin 33.9 pg (25-34); Mean Corpuscular Hgb Conc 34.4 g/dL (32-36); Mean Corpuscular Volume 98.4 fL (80-100); Mean Platelet Volume 9.3 fL (7.4-10.4); Monocytes # (auto) 0.53 K/uL (0.11-0.59); Monocytes % (auto) 5.6 %; Neutrophils # (auto) 7.21 K/uL (1.4-6.5); Neutrophils % (auto) 75.5 %; Platelet Count 159 K/uL (130-400); RDW Coefficient of Variation 17.4 % (11.5-14.5); RDW Standard Deviation 62.2 fL (36.4-46.3); Red Blood Count 2.57 M/uL (4.2-5.4); White Blood Count 9.54 K/uL (4.8-10.8)
[2021-01-10] MEDS ORDERED: PHYTONADIONE 5 MG TAB PO STA (08:36)
[2021-01-10 08:39] LABS: BUN Creatinine Ratio 24.6 (10-20); Calcium 8.6 mg/dl (8.5-10.1); Est GFR (Non-African American) 32.8 ml/min; Potassium 3.7 mmol/L (3.5-5.1)
--- NOTE | 2021-01-10 09:36 | CT Scan Report ---
CT SCAN OF THE ABDOMEN AND PELVIS WITHOUT IV CONTRAST CLINICAL HISTORY: Follow-up left iliopsoas hematoma. COMPARISON STUDY: Abdominal CT dated 01/09/2021, 07/22/2019, and 04/02/2010. TECHNIQUE: CT scan of the abdomen and pelvis is performed from the lung bases to the proximal femora. Images are reviewed in the axial, sagittal, and coronal planes. IV contrast was not administered for this examination. A dose lowering technique was utilized adhering to the principles of ALARA. The ex amination is degraded by motion artifact, as well as by streak artifact from the left arm which could not be elevated above the abdomen. CT DOSE: 2001.01 mGy.cm FINDINGS: Lung bases: The heart is normal in size and without pericardial effusion. The coronary arteries and m itral annulus are densely calcified. There is elevation of the right hemidiaphragm. Airspace opacitie s at the right lung base likely represent atelectasis. Segmental atelectasis is noted at the left kelly g base. No pleural effusion is identified. Liver: The unenhanced liver is normal in size, contour, and attenuation. There is no intrahepatic nikki iary ductal dilatation. Gallbladder: Surgical clips are seen in the gallbladder fossa. There is residual gallbladder versus a dilated cystic duct remnant seen on image #49. Spleen: Normal in size and attenuation. There are calcified splenic granulomas. Pancreas: The unenhanced pancreas is atrophic and grossly unremarkable. Adrenal glands: Unremarkable. Kidneys: The unenhanced kidneys are atrophic and without hydronephrosis. There is a 3 mm nonobstructi ng left renal calculus. No right renal calculi are identified. A 5 cm peripherally calcified cyst is again seen in the right upper pole. This is been present dating back to 2009. Abdominal vasculature: The abdominal aorta is normal in course and caliber noting advanced atheroscle rotic calcification. Bowel: There is postoperative change from sigmoid colon resection with colocolonic anastomosis. No jimmie wel obstruction is identified. There is diverticulosis of the remaining left colon without CT evidenc e of acute diverticulitis. The appendix is not identified and reported surgically absent. Peritoneum/retroperitoneum: There is no intraperitoneal free air or abdominal ascites. A left iliopso as hemorrhage has not appreciably changed as compared to yesterday. This measures approximately 19 x 9 x 6 cm seen on image #285. There is trace surrounding retroperitoneal hemorrhage, which is also unc hanged. This extends into the left groin. No intraperitoneal hemorrhage is identified. Lymphadenopathy: None. Pelvic viscera: The bladder is normal as visualized. The uterus is surgically absent. No adnexal lesi on is seen. Nonspecific presacral induration is unchanged from yesterday. Skeletal structures: The skeletal structures are osteopenic. There is advanced lumbosacral spondylosi s. There is a chronic severe compression deformity of T12 with retropulsed fragments. There is a mild chronic superior endplate compression deformity of L3. No lytic or blastic lesions are seen. Soft tissues: Soft tissue induration with punctate foci of subcutaneous gas is seen in the left later al chest wall. IMPRESSION: 1. There is unchanged appearance of a large left-sided intramuscular hemorrhage involving the left il iopsoas as compared to yesterday. Surrounding retroperitoneal hemorrhage is also unchanged. 2. Airspace opacities at the right lung base likely represent atelectasis. Correlate clinically from the superimposed infectious/inflammatory pneumonitis. 3. Left-sided nephrolithiasis. 4. Subcutaneous soft tissue induration with punctate foci of subcutaneous gas is seen in the left ant erolateral chest wall. Correlate clinically for evidence of soft tissue injury or cellulitis. 5. Additional findings as above. ACT 112: Negative or not required by law. Electronically signed by: Vladislav Curiel M.D. 01/10/2021 9:35 AM
--- NOTE | 2021-01-10 11:32 | Hospitalist Progress Note ---
Date of Service January 10, 2021 Assessment & Plan (1) Acute on chronic respiratory failure with hypoxia and hypercapnia: (2) Acute respiratory acidosis: likely secondary to narcotic overdose in the setting of Obesity hypoventilation syndrome, Right hemidiaphragm paralysis per admitting service notes: This is a 80yo F with a PMH of asthma, nocturnal hypoxemia, dependence on supplemental O2, CAD, HTN, history of DVT/PE on coumadin, CKD III, chronic back pain and fibromyalgia on chronic narcotics and other medical problems listed below who presents with lethargy and hypoxia. Initially 83% on room air, now saturating at 93% on bipap Somnolent, VBG pH 7.2, pCO2 66, no leukocytosis, d-dimer elevated at 1,570, procal wnl, covid PCR negative - ABG pending Known nocturnal hypoxemia requiring 2L HS but ran out of O2 1.5 mo ago due to problems with insurance coverage, per No documented COPD but obesity hypoventilation syndrome a likely contributor Afebrile, procal wnl but right perihilar opacities on CXR - continue empiric rocephin for possible underlying pulm infxn and flagyl for aspiration for 48 hrs, follow cultures Started on IV Solumedrol, scheduled duonebs Per discussion with , patient is a DNR/DNI 01/10 awake, alert, oriented, back to baseline MS off Bipap, Oxymask --> now on 2 L NC d/c Steroids, antibiotics monitor closely patient uses 2 L of nasal cannula at night while at home Apparently not able to tolerate BiPAP (3) Acute metabolic encephalopathy: per admitting service notes: In setting of prolonged hypoxia with noncompliance with home oxygen, also on chronic narcotics for back pain/fibromyalgia CT head without hemorrhage, mass effect, or evidence of acute territorial ischemia by CT criteria Narcan administered in case opioids contributing to respiratory failure 01/10 awake, alert restarted Percocet cautiously, DC Dilaudid PO restarted Gabapentin, DC Amitryptiline, Duloxetine --> With above medications, pain well controlled, no signs of altered mental status Pain management service consulted, agree with above blood cultures negative monitor closely PT/OT eval: Recommending SNF (4) Hematoma of iliopsoas muscle: January 09, 2021, Hg decreased from 9 to 7 Reporting left-sided inguinal pain CT abdomen/pelv: IMPRESSION: 1. Interval development of a left-sided retroperitoneal iliopsoas hemorrhage measuring 19 x 9 x 6 cm. 2. No evidence of bowel obstruction. No evidence of free air. d/c heparin, warfarin discussed with Dr. Garza Protamine 10mg IV ordered to reverse Heparin 1 unit of packed RBC ordered, hemoglobin improved from 7.4, now 8.5 Presently, has minimal left inguinal and lower back pain discomfort Repeat CT scan of the abdomen pelvis: Hematoma unchanged INR 2.0, vitamin K 5 mg p.o. ordered PTT down from 59 to 22 General surgery consulted monitor closely Patient had a fall prior to admission, possible etiology of iliopsoas muscle hemorrhage in the setting of chronic Coumadin use will need to hold off on Coumadin, repeat imaging in 1 week Monitor H&H closely upon discharge (5) History of pulmonary embolism: per admitting service notes: H/o DVT/PE, last episode few years ago per patient and her , on nursing home anticoagulation with coumadin Bilateral venous dopplers ordered for eval of DVT: negative HOLD anticoagulation secondary to iliopsoas hematoma management per above (6) Lumbar radiculopathy, chronic: management per above (7) Hypertension: Home regimen includes carvedilol, lisinopril (8) CAD (coronary artery disease): Continue Carvedilol, Lisinopril (9) Hypothyroidism: Continue levothyroxine DVT Ppx: Continue coumadin, IV heparin bridge Code status: DNR/DNI per discussion with PCP: Marika Salas Dispo: PT/OT evaluation: Recommends to transition to SNF Discharge to SNF when medically stable plan of care discussed with patient and her Bill in detail and at length all questions answered They are understanding, agreeable, comfortable with the plan of care Admission and Anticipated Discharge Date Admission Date: January 06, 2021 Subjective ff up for altered mental status, etc seen resting in bed, sleeping but easily awakened Oriented x3, answers all questions appropriately Received a unit of packed RBCs overnight Reports mild left inguinal pain and left-sided lower back pain, relieved by Percocet-mostly her usual pain Denies headache, dizziness, chest pain, shortness of breath, palpitations, abdominal pain, nausea vomiting No other symptom Review of Systems Review of Systems: All systems reviewed & are unremarkable except as noted in Subjective Physical Exam Physical Exam: General- oriented x 3, not in distress, speaks in sentences with no effort or accessory muscle use Eyes- anicteric Neck- no JVD Lungs- clear breath sounds bilaterally, no rales/wheezes Heart- normal rate, regular rhythm; no murmurs Abdomen- normal bowel sounds, nondistended, soft, nontender Left inguinal region-no hematoma, erythema, edema Back-no hematoma, erythema, edema Extremities- no pretibial edema, no calf tenderness Neuro- alert, oriented x 3; no gross focal neurologic deficits Skin- warm & dry Results & Data Results & Data ([facility]) Vital Signs (Past 12 Hours) Vital Signs Temp Pulse Pulse Resp BP BP Pulse Ox 01/10/21 07:53 36.9 C 77 20 116/64 98 01/10/21 06:24 36.9 C 75 18 121/60 95 01/10/21 05:32 36.8 C 71 15 133/57 L 96 01/10/21 04:32 36.6 C 68 17 112/45 L 98 01/10/21 03:32 36.6 C 74 22 113/57 L 96 01/10/21 03:02 36.6 C 75 17 119/45 L 97 01/10/21 02:47 36.5 C 70 18 123/45 L 96 01/10/21 02:31 36.7 C 74 20 110/48 L 95 01/09/21 23:33 36.6 C 71 18 122/52 L 97 all noted and reviewed including below Laboratory Results Laboratory Results - last 24 hr 01/09/21 01/09/21 01/09/21 10:48 12:45 15:20 WBC 10.84 H RBC 2.09 L Hgb 7.4 L Hct 21.7 L MCV 103.8 H MCH 35.4 H MCHC 34.1 RDW Std Deviation 50.1 H RDW Coeff of Vijay 13.1 Plt Count 84 L MPV 10.8 H Immature Gran % (Auto) 0.7 Neut % (Auto) 81.6 Lymph % (Auto) 12.9 [place] % (Auto) 4.8 Eos % (Auto) 0.0 Baso % (Auto) 0.0 Neut # (Auto) 8.84 H Lymph # (Auto) 1.40 [place] # (Auto) 0.52 Eos # (Auto) 0.00 Baso # (Auto) 0.00 Immature Gran # (Auto) 0.08 H Platelet Estimate Decreased L PT INR APTT PTT Ratio Sodium Potassium Chloride Carbon Dioxide Anion Gap BUN Creatinine Est Cr Clr Drug Dosing Est GFR ( Amer) Est GFR (Non-Af Amer) BUN/Creatinine Ratio Glucose Calcium Stool Occult Bld Scrn Negative Blood Type A Positive Antibody Screen NEGATIVE Crossmatch See Detail 01/09/21 01/09/21 01/10/21 15:20 21:05 07:47 WBC RBC Hgb 7.5 L Hct 21.8 L MCV MCH MCHC RDW Std Deviation RDW Coeff of Vijay Plt Count MPV Immature Gran % (Auto) Neut % (Auto) Lymph % (Auto) [place] % (Auto) Eos % (Auto) Baso % (Auto) Neut # (Auto) Lymph # (Auto) [place] # (Auto) Eos # (Auto) Baso # (Auto) Immature Gran # (Auto) Platelet Estimate PT 19.5 H INR 2.0 H APTT 22.9 PTT Ratio 0.9 Sodium Potassium Chloride Carbon Dioxide Anion Gap BUN Creatinine Est Cr Clr Drug Dosing Est GFR ( Amer) Est GFR (Non-Af Amer) BUN/Creatinine Ratio Glucose Calcium Stool Occult Bld Scrn Blood Type Antibody Screen Crossmatch 01/10/21 01/10/21 07:47 07:47 WBC 9.54 RBC 2.57 L Hgb 8.7 L Hct 25.3 L MCV 98.4 D MCH 33.9 MCHC 34.4 RDW Std Deviation 62.2 H RDW Coeff of Vijay 17.4 H Plt Count 159 D MPV 9.3 Immature Gran % (Auto) 1.7 Neut % (Auto) 75.5 Lymph % (Auto) 17.0 [place] % (Auto) 5.6 Eos % (Auto) 0.1 Baso % (Auto) 0.1 Neut # (Auto) 7.21 H Lymph # (Auto) 1.62 [place] # (Auto) 0.53 Eos # (Auto) 0.01 Baso # (Auto) 0.01 Immature Gran # (Auto) 0.16 H Platelet Estimate PT INR APTT PTT Ratio Sodium 139 Potassium 3.7 Chloride 104 Carbon Dioxide 28 Anion Gap 7.0 BUN 37 H Creatinine 1.51 H Est Cr Clr Drug Dosing 35.0 Est GFR ( Amer) 38.0 Est GFR (Non-Af Amer) 32.8 BUN/Creatinine Ratio 24.6 H Glucose 79 Calcium 8.6 Stool Occult Bld Scrn Blood Type Antibody Screen Crossmatch (1) Hypertension Hypertension type: unspecified Qualified Code(s): I10 - Essential (primary) hypertension
[2021-01-10] MEDS: ACETAMINOPHEN 500 MG TAB PO PRN (13:36)
--- NOTE | 2021-01-10 18:57 | Surgery Consultation ---
Date of Consultation January 10, 2021 Assessment & Plan (1) Hematoma of iliopsoas muscle: pt is a 80 year-old female who is consulted for hematoma of iliopsoas muscle after she fall at home, IMP: Hematoma of iliopsoas muscle, 2 CT scan ( 01/09,01/10) showed hematoma is stable, no surgery indication now, conservative treatment, hold coumadin, monitor H/H, will F/U Present on Admission?: Yes Supervising Physician Co-Signing Physician Notes Patient seen and examined. EMR reviewed. Images independently reviewed. Agree with assessment and plan as noted by the family practice resident. This 80-year-old female with probable obesity hypoventilation syndrome is admitted with hypercarbic respiratory failure likely multifactorial as noted. Agree with plans to limit use of respiratory suppressant medications. I am unclear what the etiology of her elevated hemidiaphragm is but its been present dating back for several years. I see little utility in performing a sniff test at this point in time or an MRI of the cervical spine as it is unlikely the patient would be a candidate for any intervention even if she were to have cervical radiculopathy. The CT of the chest demonstrated no significant adenopathy or masses compressing the course of the phrenic nerve. This could be idiopathic or post viral. Typically unilateral diaphragmatic paralysis is well tolerated. However in the setting of obesity hypoventilation syndrome, this may be more clinically significant. Patient has had an elevated CO2 and certainly treatment with nocturnal positive airway pressure may be beneficial. Once her encephalopathy clears we will continue to use BiPAP nightly. Unclear if she would qualify for BiPAP leaving the hospital. Outpatient polysomnography would be recommended. I do not see PFTs in her chart so I am not sure that we can qualify her for an AVAPS. She is not bronchospastic currently and there is no indication for steroids or aggressive bronchodilators unless they offer her a significant clinical benefit. Weight loss is recommended. The patient may benefit from evaluation by the weight loss medical team in the outpatient setting. DNR status confirmed Thanks for the opportunity of participating in the care of this patient. We will continue to follow with you. Feel free to contact us with questions or concerns. History of Present Illness Attending Physician: Luis Whyte MD History of Present Illness Chief Complaint: AMS, hypoxic resp failure Primary Care Provider: Giorgio Salas, DO This is a 80yo F with a PMH of asthma, nocturnal hypoxemia, dependence on supplemental O2, CAD, HTN, history of DVT/PE on coumadin, CKD III, chronic back pain and fibromyalgia on chronic narcotics and other medical problems listed below who presents with lethargy and hypoxia. History obtained primarily from due to patient's somnolent state. Patient has been sleeping more throughout the past few weeks. notes that they are having problems with insurance coverage for oxygen that she uses at night and patient has not been on it for past 1.5 months. called EMS this morning when was too weak to get back into bed and seemed incoherent. Was noted to be hypoxic at 83% by EMS and was brought in for further evaluation. States that she has been taking home medication as prescribed until this morning when she was too lethargic to take pills. I ( Jose Knox MD ) got a call for consult hematoma of iliopsoas muscle, I reviewed pt's H/P, labs, CT scans with pt, pt said she fall at home , she feels left back pain, now pt denies significant left back pain, no fever, Allergies Allergy/AdvReac Type Severity Reaction Status Date / Time aspirin Allergy Unknown Unknown Verified 01/06/21 07:40 Sulfa (Sulfonamide Allergy Unknown Unknown Verified 01/06/21 07:40 Antibiotics) Home Medications Medication Instructions Recorded Confirmed Type albuterol sulfate [Ventolin HFA] 2 puff INHALATION Q4 PRN 11/10/18 01/06/21 History alendronate 70 mg PO WK 11/10/18 01/06/21 History amitriptyline 25 mg PO HS 11/10/18 01/06/21 History carvedilol 12.5 mg PO BID 11/10/18 01/06/21 History gabapentin 100 mg PO TID 11/10/18 01/06/21 History lisinopril 5 mg PO QAM 11/10/18 01/06/21 History montelukast 10 mg PO HS 11/10/18 01/06/21 History duloxetine 30 mg PO HS 02/28/19 01/06/21 History fluticasone propion-salmeterol 1 inh INHALATION BID 03/03/19 01/06/21 History [Advair Diskus] pantoprazole 40 mg PO DAILY 07/22/19 01/06/21 History atorvastatin 20 mg PO DAILY 10/11/19 01/06/21 History levothyroxine 50 mcg PO DAILYBB 01/15/20 01/06/21 History warfarin [Jantoven] 5 mg PO 5XWK 01/15/20 01/06/21 History sumatriptan succinate 100 mg PO UD PRN 06/27/20 01/06/21 History albuterol sulfate [Proventil] 2.5 mg INHALATION Q4H PRN 01/06/21 01/06/21 History cholecalciferol (vitamin D3) 25 mcg PO DAILY 01/06/21 01/06/21 History cyanocobalamin (vitamin B-12) 1,000 mcg IM Q4WK 01/06/21 01/06/21 History hydromorphone 8 mg PO BID 01/06/21 01/06/21 History oxycodone-acetaminophen 1 tab PO Q6 PRN 01/06/21 01/06/21 History warfarin [Jantoven] 2.5 mg PO 2XWK 01/06/21 01/06/21 History Past Med/Surg History Medical History (Updated 01/06/21 @ 09:39 by Fawn Sanchez PA-C) Asthma USES PRN INH 1 X WK Atrial flutter PT COULD NOT CONFIRM History of DVT (deep vein thrombosis) RLE - 20 YEARS AGO FOLLOWING INJURY History of endometriosis History of PR (myocardial infarction) 2018 - FOLLOWS W/ DR. JACOBSEN History of pulmonary embolism Hypertension Hypothyroidism Migraine On anticoagulant therapy On home oxygen therapy 2 LPM 02 QHS Osteoarthritis Osteoporosis Poor historian Pulmonary edema Pulmonary embolism (10/10/12) 20 YEARS AGO AFTER INJURY 30 YEARS AGO - POST OP CHOLEYCYSTECTOMY ON WARFARIN Sleep apnea NO DEVICE Surgical History History of appendectomy History of cardiac cath 2018 - [place] - NO STENTS History of cataract surgery History of section History of cholecystectomy History of colonoscopy History of esophagogastroduodenoscopy (EGD) History of left knee surgery History of tonsillectomy History of total abdominal hysterectomy and bilateral salpingo-oophorectomy History of tubal ligation Family History Father Esophageal cancer Social History Smoking Status: Unknown if ever smoked Second Hand Exposure: Yes (FAMILY MEMBERS CURRENTLY SMOKE); Hx Alcohol Use: No Hx Substance Use: No Preferred Language: Gibraltarian Communication Ability: Effective Visual Impairment: No Limitations Hearing Ability: Normal Comber Operator Required: No Beliefs That Will Affect Care: None marital status: Current Living Situation: Spouse current occupational status: retired Feels Safe at Home: Yes Assistive Devices: Walker Review of Systems Review of Systems: Unobtainable due to reduced consciousness Allergies Allergy/AdvReac Type Severity Reaction Status Date / Time aspirin Allergy Unknown Unknown Verified 01/06/21 07:40 Sulfa (Sulfonamide Allergy Unknown Unknown Verified 01/06/21 07:40 Antibiotics) Home Medications Medication Instructions Recorded Confirmed Type albuterol sulfate [Ventolin HFA] 2 puff INHALATION Q4 PRN 11/10/18 01/06/21 History alendronate 70 mg PO WK 11/10/18 01/06/21 History amitriptyline 25 mg PO HS 11/10/18 01/06/21 History carvedilol 12.5 mg PO BID 11/10/18 01/06/21 History gabapentin 100 mg PO TID 11/10/18 01/06/21 History lisinopril 5 mg PO QAM 11/10/18 01/06/21 History montelukast 10 mg PO HS 11/10/18 01/06/21 History duloxetine 30 mg PO HS 02/28/19 01/06/21 History fluticasone propion-salmeterol 1 inh INHALATION BID 03/03/19 01/06/21 History [Advair Diskus] pantoprazole 40 mg PO DAILY 07/22/19 01/06/21 History atorvastatin 20 mg PO DAILY 10/11/19 01/06/21 History levothyroxine 50 mcg PO DAILYBB 01/15/20 01/06/21 History warfarin [Jantoven] 5 mg PO 5XWK 01/15/20 01/06/21 History sumatriptan succinate 100 mg PO UD PRN 06/27/20 01/06/21 History albuterol sulfate [Proventil] 2.5 mg INHALATION Q4H PRN 01/06/21 01/06/21 Hist ory cholecalciferol (vitamin D3) 25 mcg PO DAILY 01/06/21 01/06/21 History cyanocobalamin (vitamin B-12) 1,000 mcg IM Q4WK 01/06/21 01/06/21 History hydromorphone 8 mg PO BID 01/06/21 01/06/21 History oxycodone-acetaminophen 1 tab PO Q6 PRN 01/06/21 01/06/21 History warfarin [Jantoven] 2.5 mg PO 2XWK 01/06/21 01/06/21 History Patient History Medical History (Updated 01/09/21 @ 17:01 by Luis Whyte MD) Asthma USES PRN INH 1 X WK Atrial flutter PT COULD NOT CONFIRM Chronic anticoagulation Chronic left hip pain Diffuse myofascial pain syndrome History of DVT (deep vein thrombosis) RLE - 20 YEARS AGO FOLLOWING INJURY History of endometriosis History of PR (myocardial infarction) 2018 - FOLLOWS W/ DR. JACOBSEN History of pulmonary embolism Hypertension Hypothyroidism Migraine On anticoagulant therapy On home oxygen therapy 2 LPM 02 QHS Opioid dependence Osteoarthritis Osteoporosis Poor historian Pulmonary edema Pulmonary embolism (10/10/12) 20 YEARS AGO AFTER INJURY 30 YEARS AGO - POST OP CHOLEYCYSTECTOMY ON WARFARIN Sleep apnea NO DEVICE Surgical History History of appendectomy History of cardiac cath 2017 - [place] - NO STENTS History of cataract surgery History of section History of cholecystectomy History of colonoscopy History of esophagogastroduodenoscopy (EGD) History of left knee surgery History of tonsillectomy History of total abdominal hysterectomy and bilateral salpingo-oophorectomy History of tubal ligation Family History Father Esophageal cancer Social History Smoking Status: Never smoker Second Hand Exposure: Yes (FAMILY MEMBERS CURRENTLY SMOKE); Hx Alcohol Use: No Hx Substance Use: No Preferred Language: [place]tarian Communication Ability: Impaired Visual Impairment: No Limitations Hearing Ability: Normal Comber Operator Required: No Beliefs That Will Affect Care: None marital status: Current Living Situation: Spouse current occupational status: retired Other Information That Helps Us Care for You: No Feels Safe at Home: Yes Assistive Devices: Oxygen - Continuous Assistive Devices Comment: Lost insurance -qualification for home 02 1.5 months ago per report Physical Exam Constitutional: WD/WN, vitals as above well developed and well nourished Eyes: PERRL, conjunctivae normal, anicteric sclerae Neck: trachea midline, no thyromegaly Respiratory: normal respiratory effort, lungs clear to auscultation Cardiovascular: RRR, no murmur, no edema Rate/Rhythm: regular rate and regular rhythm Gastrointestinal (Abdomen): normal bowel sounds, soft, nontender, no hepatosplenomegaly Percussion/Palpation: abdomen soft Musculoskeletal: no cyanosis or clubbing, extremities motor strength 5/5 mild tenderness at left back area, no redness, Neurologic: awake Psychiatric: Orientation: alert and oriented x 3 Results & Data ([facility]) Vital Signs (Past 12 Hours) Vital Signs Temp Pulse Resp BP Pulse Ox 01/10/21 16:00 92 01/10/21 15:43 36.7 C 73 19 137/58 L 96 01/10/21 11:39 36.7 C 70 16 118/52 L 94 01/10/21 07:53 36.9 C 77 20 116/64 98 Laboratory Results Abnormal lab results 01/09/21 01/09/21 01/10/21 Range/Units 10:48 21:05 07:47 RBC (4.2-5.4) M/uL Hgb 7.5 L (12.0-16.0) g/dL Hct 21.8 L (37-47) % RDW Std Deviation (36.4-46.3) fL RDW Coeff of Vijay (11.5-14.5) % Neut # (Auto) (1.4-6.5) K/uL Immature Gran # (Auto) (0.00-0.02) K/uL PT 19.5 H (9.0-12.0) Seconds INR 2.0 H (0.9-1.1) BUN (7-18) mg/dl Creatinine (0.6-1.2) mg/dl BUN/Creatinine Ratio (10-20) Crossmatch See Detail 01/10/21 01/10/21 Range/Units 07:47 07:47 RBC 2.57 L (4.2-5.4) M/uL Hgb 8.7 L (12.0-16.0) g/dL Hct 25.3 L (37-47) % RDW Std Deviation 62.2 H (36.4-46.3) fL RDW Coeff of Vijay 17.4 H (11.5-14.5) % Neut # (Auto) 7.21 H (1.4-6.5) K/uL Immature Gran # (Auto) 0.16 H (0.00-0.02) K/uL PT (9.0-12.0) Seconds INR (0.9-1.1) BUN 37 H (7-18) mg/dl Creatinine 1.51 H (0.6-1.2) mg/dl BUN/Creatinine Ratio 24.6 H (10-20) Crossmatch Diagnostic Findings CT SCAN OF THE ABDOMEN AND PELVIS WITHOUT IV CONTRAST CLINICAL HISTORY: Follow-up left iliopsoas hematoma. COMPARISON STUDY: Abdominal CT dated 01/09/2021, 07/22/2019, and 04/02/2010. TECHNIQUE: CT scan of the abdomen and pelvis is performed from the lung bases to the proximal femora. Images are reviewed in the axial, sagittal, and coronal planes. IV contrast was not administered for this examination. A dose lowering technique was utilized adhering to the principles of ALARA. The examination is degraded by motion artifact, as well as by streak artifact from the left arm which could not be elevated above the abdomen. CT DOSE: 2001.01 mGy.cm FINDINGS: Lung bases: The heart is normal in size and without pericardial effusion. The coronary arteries and mitral annulus are densely calcified. There is elevation of the right hemidiaphragm. Airspace opacities at the right lung base likely represent atelectasis. Segmental atelectasis is noted at the left lung base. No pleural effusion is identified. Liver: The unenhanced liver is normal in size, contour, and attenuation. There is no intrahepatic biliary ductal dilatation. Gallbladder: Surgical clips are seen in the gallbladder fossa. There is residual gallbladder versus a dilated cystic duct remnant seen on image #49. Spleen: Normal in size and attenuation. There are calcified splenic granulomas. Pancreas: The unenhanced pancreas is atrophic and grossly unremarkable. Adrenal glands: Unremarkable. Kidneys: The unenhanced kidneys are atrophic and without hydronephrosis. There is a 3 mm nonobstructing left renal calculus. No right renal calculi are identified. A 5 cm peripherally calcified cyst is again seen in the right upper pole. This is been present dating back to 2009. Abdominal vasculature: The abdominal aorta is normal in course and caliber noting advanced atherosclerotic calcification. Bowel: There is postoperative change from sigmoid colon resection with colocolonic anastomosis. No bowel obstruction is identified. There is diverticulosis of the remaining left colon without CT evidence of acute diverticulitis. The appendix is not identified and reported surgically absent. Peritoneum/retroperitoneum: There is no intraperitoneal free air or abdominal ascites. A left iliopsoas hemorrhage has not appreciably changed as compared to yesterday. This measures approximately 19 x 9 x 6 cm seen on image #285. There is trace surrounding retroperitoneal hemorrhage, which is also unchanged. This extends into the left groin. No intraperitoneal hemorrhage is identified. Lymphadenopathy: None. Pelvic viscera: The bladder is normal as visualized. The uterus is surgically absent. No adnexal lesion is seen. Nonspecific presacral induration is unchanged from yesterday. Skeletal structures: The skeletal structures are osteopenic. There is advanced lumbosacral spondylosis. There is a chronic severe compression deformity of T12 with retropulsed fragments. There is a mild chronic superior endplate compression deformity of L3. No lytic or blastic lesions are seen. Soft tissues: Soft tissue induration with punctate foci of subcutaneous gas is seen in the left lateral chest wall. IMPRESSION: 1. There is unchanged appearance of a large left-sided intramuscular hemorrhage involving the left iliopsoas as compared to yesterday. Surrounding retroperitoneal hemorrhage is also unchanged. 2. Airspace opacities at the right lung base likely represent atelectasis. Correlate clinically from the superimposed infectious/inflammatory pneumonitis. 3. Left-sided nephrolithiasis. 4. Subcutaneous soft tissue induration with punctate foci of subcutaneous gas is seen in the left anterolateral chest wall. Correlate clinically for evidence of soft tissue injury or cellulitis. 5. Additional findings as above. CT SCAN OF THE ABDOMEN AND PELVIS WITHOUT CONTRAST CLINICAL HISTORY: Pain. Possible intra-abdominal hemorrhage. Patient on long- term anticoagulation. COMPARISON STUDY: 07/22/2019 TECHNIQUE: CT scan of the abdomen and pelvis was performed from the lung bases to the proximal femurs. Images are reviewed in the axial, sagittal, and coronal planes. IV contrast was not administered for this examination. A dose lowering technique was utilized adhering to the principles of ALARA. CT DOSE: 1010.55 mGy.cm FINDINGS: Lower chest: There is elevation of the right hemidiaphragm. There are right basilar opacities which have a linear configuration a ring subsegmental atelectatic change. There are bronchial wall calcifications. There is a trace pleural effusion. Liver: The unenhanced liver is normal in size, contour, and attenuation. There is no intrahepatic biliary ductal dilatation. Gallbladder: There is a suspected prior cholecystectomy. There is persistent fusiform dilatation of the common bile duct which measures 22 mm in diameter Spleen: Normal in size and attenuation. Pancreas: Atrophic Adrenal glands: Unremarkable. Kidneys: There is a rim calcified 5.4 cm right renal lesion. This could represent a renal cyst or rim calcified chronic cystic capsular lesion. There is no hydronephrosis. There is a nonobstructing 2.5 mm left renal calculus. Bowel: There are no transition zones to indicate bowel obstruction. There is no evidence of acute diverticulitis. There is no evidence of acute appendicitis. Peritoneum: There is no intraperitoneal free air or abdominal ascites. There is a left-sided retroperitoneal hemorrhage involving the left iliopsoas muscle measuring 19 x 9 x 6 cm. There is a small amount of hemorrhage in the adjacent posterior pararenal fascia and paracolic gutter. There is also a small amount of hemorrhage anterior to the iliopsoas. There is mild presacral edema. Vasculature: The abdominal aorta is normal in course and caliber. Adenopathy: None. Pelvic viscera: The uterus appears surgically absent Skeletal structures: Is redemonstration of a T12 burst fracture with retropulsion. There is a chronic superior endplate L3 compression fracture. IMPRESSION: 1. Interval development of a left-sided retroperitoneal iliopsoas hemorrhage measuring 19 x 9 x 6 cm. 2. No evidence of bowel obstruction. No evidence of free air.
[2021-01-10] MEDS: MONTELUKAST SODIUM 10 MG TABLET PO SCH (20:37)
[2021-01-10] MEDS: traMADol HCL 50 MG TABLET PO PRN (22:58)
[2021-01-10] MEDS: FLUTICASONE/VILANTEROL 200/25MCG 14 PUFFS/INHALER INH SCH (23:00)
[2021-01-11] MEDS: ACETAMINOPHEN 500 MG TAB PO PRN ×3 (04:04→19:32)
[2021-01-11 06:26] LABS: INR 1.3 (0.9-1.1)
[2021-01-11] MEDS: LEVOTHYROXINE SODIUM 50 MCG TABLET PO SCH (06:36)
[2021-01-11] MEDS ORDERED: ALENDRONATE SODIUM 70 MG TAB PO SCH (07:00)
[2021-01-11] MEDS: lisinopril 5 MG TAB PO SCH (08:45)
[2021-01-11] MEDS: carvediloL 12.5 MG TAB PO SCH ×2 (08:45→19:32)
[2021-01-11] MEDS: GABAPENTIN 100 MG CAP PO SCH ×2 (08:45→19:32)
[2021-01-11] MEDS: PANTOprazole 40 MG TAB PO SCH (08:45)
--- NOTE | 2021-01-11 10:30 | Progress Note ---
Date of Service F/U hematoma, pt is doing fine, no pain on left back area, January 11, 2021 Assessment & Plan (1) Hematoma of iliopsoas muscle: pt is a 80 year-old female who is consulted for hematoma of iliopsoas muscle after she fall at home, IMP: Hematoma of iliopsoas muscle, 2 CT scan ( 01/09,01/10) showed hematoma is stable, no surgery indication now, conservative treatment, hold coumadin, monitor H/H, will F/U 01/11/2021 10: 29AM F/U hematoma, stable, no pain, sign off today please call with questions, Thanks, Admission and Anticipated Discharge Date Admission Date: January 06, 2021 Supervising Physician Co-Signing Physician Notes Patient seen and examined. EMR reviewed. Images independently reviewed. Agree with assessment and plan as noted by the family practice resident. This 80-year-old female with probable obesity hypoventilation syndrome is admitted with hypercarbic respiratory failure likely multifactorial as noted. Agree with plans to limit use of respiratory suppressant medications. I am unclear what the etiology of her elevated hemidiaphragm is but its been present dating back for several years. I see little utility in performing a sniff test at this point in time or an MRI of the cervical spine as it is unlikely the patient would be a candidate for any intervention even if she were to have cervical radiculopathy. The CT of the chest demonstrated no significant adenopathy or masses compressing the course of the phrenic nerve. This could be idiopathic or post viral. Typically unilateral diaphragmatic paralysis is well tolerated. However in the setting of obesity hypoventilation syndrome, this may be more clinically significant. Patient has had an elevated CO2 and certainly treatment with nocturnal positive airway pressure may be beneficial. Once her encephalopathy clears we will continue to use BiPAP nightly. Unclear if she would qualify for BiPAP leaving the hospital. Outpatient polysomnography would be recommended. I do not see PFTs in her chart so I am not sure that we can qualify her for an AVAPS. She is not bronchospastic currently and there is no indication for steroids or aggressive bronchodilators unless they offer her a significant clinical benefit. Weight loss is recommended. The patient may benefit from evaluation by the weight loss medical team in the outpatient setting. DNR status confirmed Thanks for the opportunity of participating in the care of this patient. We will continue to follow with you. Feel free to contact us with questions or concerns. Subjective Patient seen and examined. She is awake alert. No complaints. She denies chest pain or palpitations. She tolerated BiPAP last night. Physical Exam Constitutional: WD/WN, vitals as above well developed and well nourished Eyes: PERRL, conjunctivae normal, anicteric sclerae Neck: trachea midline, no thyromegaly Respiratory: normal respiratory effort, lungs clear to auscultation Cardiovascular: RRR, no murmur, no edema Rate/Rhythm: regular rate and regular rhythm Gastrointestinal (Abdomen): normal bowel sounds, soft, nontender, no hepatosplenomegaly Percussion/Palpation: abdomen soft Musculoskeletal: no cyanosis or clubbing, extremities motor strength 5/5 Neurologic: awake Psychiatric: Orientation: alert and oriented x 3 Results & Data ([facility]) Vital Signs (Past 12 Hours) Vital Signs Temp Pulse Pulse Resp BP Pulse Ox 01/11/21 08:38 36.5 C 81 23 155/65 H 96 01/11/21 03:48 36.9 C 73 18 127/51 L 96 01/11/21 00:09 37.0 C 75 19 117/51 L 98 01/10/21 23:12 68 Laboratory Results Abnormal lab results 01/11/21 Range/Units 05:48 PT 13.0 H (9.0-12.0) Seconds INR 1.3 H (0.9-1.1)
--- NOTE | 2021-01-11 12:36 | Hospitalist Progress Note ---
Date of Service January 11, 2021 Assessment & Plan (1) Acute on chronic respiratory failure with hypoxia and hypercapnia: (2) Acute respiratory acidosis: Likely secondary to narcotic overdose in the setting of Obesity hypoventilation syndrome, Right hemidiaphragm paralysis This is a 80yo F with a PMH of asthma, nocturnal hypoxemia, dependence on supplemental O2, CAD, HTN, history of DVT/PE on coumadin, CKD III, chronic back pain and fibromyalgia on chronic narcotics and other medical problems listed below who presents with lethargy and hypoxia. Initially 83% on room air, now saturating at 93% on bipap Known nocturnal hypoxemia requiring 2L HS but ran out of O2 1.5 mo ago due to problems with insurance coverage, per No documented COPD but obesity hypoventilation syndrome a likely contributor Afebrile, procal wnl but right perihilar opacities on CXR -received Rocephin and Flagyl for about 48 hours Received intravenous Solu-Medrol and has not continued Appreciate pulmonary input and recommendation Patient uses 2 L of nasal cannula at night while at home Apparently not able to tolerate BiPAP (3) Acute metabolic encephalopathy: In setting of prolonged hypoxia with noncompliance with home oxygen, also on chronic narcotics for back pain/fibromyalgia CT head without hemorrhage, mass effect, or evidence of acute territorial ischemia by CT criteria Narcan administered in case opioids contributing to respiratory failure Restarted Gabapentin, DC Amitryptiline, Duloxetine --> With above medications, pain well controlled, no signs of altered mental status Pain management service consulted, agree with above No infection noted PT/OT eval: Recommending SNF (4) Hematoma of iliopsoas muscle: Patient had a fall prior to admission, possible etiology of iliopsoas muscle hemorrhage in the setting of chronic Coumadin use January 09, 2021, Hg decreased from 9 to 7 Acute blood loss anemia Reporting left-sided inguinal pain secondary to hematoma CT abdomen/pelv: IMPRESSION: 1. Interval development of a left-sided retroperitoneal iliopsoas hemorrhage measuring 19 x 9 x 6 cm. 2. No evidence of bowel obstruction. No evidence of free air. d/c heparin, warfarin Discussed with Dr. Garza Protamine 10mg IV ordered to reverse Heparin 1 unit of packed RBC ordered, hemoglobin improved from 7.4, now 8.5 Presently, has minimal left inguinal and lower back pain discomfort Repeat CT scan of the abdomen pelvis: Hematoma unchanged INR 2.0, vitamin K 5 mg p.o. ordered PTT down from 59 to 22 Will not restart any anticoagulation for now and there is discussed with the patient General surgery consulted-appreciate input and recommendation and presently signed off (5) History of pulmonary embolism: per admitting service notes: H/o DVT/PE, last episode few years ago per patient and her , on [facility] anticoagulation with coumadin Bilateral venous dopplers ordered for eval of DVT: negative HOLD anticoagulation secondary to iliopsoas hematoma management per above Will not restart anticoagulation for at least 1 to 2 weeks (6) Lumbar radiculopathy, chronic: management per above (7) Hypertension: Home regimen includes carvedilol, lisinopril (8) CAD (coronary artery disease): Continue Carvedilol, Lisinopril (9) Hypothyroidism: Continue levothyroxine DVT Ppx: Continue coumadin, IV heparin bridge Code status: DNR/DNI per discussion with PCP: Marika Salas Dispo: PT/OT evaluation: Recommends to transition to SNF Discharge to SNF when medically stable Admission and Anticipated Discharge Date Admission Date: January 06, 2021 Subjective 01/11/2021 The patient was seen and examined in telemetry unit She remains generally weak but denies any other symptoms No abdominal pain, nausea and or vomiting No chest pain, palpitation and no shortness of breath at rest She wants to go home Review of Systems Review of Systems: All systems reviewed and are unremarkable except as noted below Respiratory: no cough and no dyspnea Requiring 2 L of oxygen via nasal cannula to maintain saturation Cardiovascular: no chest pain Gastrointestinal: no abdominal pain, no nausea and no vomiting Physical Exam Physical Exam: Lying in bed comfortably Constitutional: well developed and well nourished; not ill appearing Eyes: PERRL, conjunctivae normal, anicteric sclerae ENMT: external ear and nose normal, oropharynx normal Neck: trachea midline, no thyromegaly Respiratory: no respiratory distress Auscultation: + diminished lung sounds (Diminished lung sounds at right base) Cardiovascular: Rate/Rhythm: regular rate and regular rhythm Heart Sounds: no murmur Extremities: no edema Gastrointestinal (Abdomen): Inspection/Auscultation: + abdomen distended and normal bowel sounds Percussion/Palpation: abdomen soft; abdomen nontender Musculoskeletal: No acute arthritis in any joint Neurologic: Alert, awake and oriented x3 Psychiatric: A+Ox3, euthymic affect Lymphatic: no cervical or axillary lymphadenopathy Results & Data Results & Data ([facility]) Vital Signs (Past 12 Hours) Vital Signs Temp Pulse Resp BP Pulse Ox 01/11/21 11:01 36.4 C L 69 15 139/66 94 01/11/21 08:38 36.5 C 81 23 155/65 H 96 01/11/21 03:48 36.9 C 73 18 127/51 L 96 Medications Administered Current Inpatient Medications Acetaminophen (Acetaminophen 500 Mg Tab) 500 mg PO Q4H PRN PRN Reason: Headache Stop: 02/07/21 12:28 Last Admin: 01/11/21 08:47 Dose: 500 mg Documented by: Albuterol (Albut/Ipratrop 3mg/0.5mg Neb 3 Ml Vial) 3 ml NEB Q2H PRN PRN Reason: Shortness of Breath/Wheezing Stop: 02/05/21 08:40 Albuterol (Albuterol Hfa 8 Gm Inhaler) 2 puffs INH Q4 PRN PRN Reason: Shortness Of Breath Or Wheezing Stop: 02/05/21 09:58 Alendronate Sodium (Alendronate Sodium 70 Mg Tab) 70 mg PO We@0700 [facility] Stop: 02/10/21 06:59 Last Admin: 01/11/21 06:36 Dose: 70 mg Documented by: Carvedilol (Carvedilol 12.5 Mg Tab) 12.5 mg PO BID [facility] Stop: 02/06/21 10:59 Last Admin: 01/11/21 08:45 Dose: 12.5 mg Documented by: Fluticasone/Vilanterol (Fluticasone/Vilanterol 200/25mcg 14 Puffs/Inhaler) 1 puffs INH PM [facility] Stop: 02/05/21 20:59 Last Admin: 01/10/21 23:00 Dose: 1 puffs Documented by: Gabapentin (Gabapentin 100 Mg Cap) 100 mg PO BID [facility] Stop: 02/08/21 20:59 Last Admin: 01/11/21 08:45 Dose: 100 mg Documented by: Levothyroxine Sodium (Levothyroxine Sodium 50 Mcg Tablet) 50 mcg PO DAILYBB [facility] Stop: 02/07/21 06:29 Last Admin: 01/11/21 06:36 Dose: 50 mcg Documented by: Lisinopril (Lisinopril 5 Mg Tab) 5 mg PO QAM [facility] Stop: 02/07/21 08:59 Last Admin: 01/11/21 08:45 Dose: 5 mg Documented by: Montelukast Sodium (Montelukast Sodium 10 Mg Tablet) 10 mg PO HS [facility] Stop: 02/06/21 20:59 Last Admin: 01/10/21 20:37 Dose: 10 mg Documented by: Ondansetron HCl (Ondansetron Inj 2 Mg/Ml 2 Ml Vial) 4 mg IV Q6H PRN PRN Reason: Nausea Stop: 02/05/21 09:36 Oxycodone/Acetaminophen (Oxycodone/Acetaminophen 5mg/325mg Tab) 1 tab PO Q4H PRN PRN Reason: Pain Stop: 01/22/21 15:46 Last Admin: 01/09/21 04:10 Dose: 1 tab Documented by: Pantoprazole Sodium (Pantoprazole 40 Mg Tab) 40 mg PO DAILY [facility] Stop: 02/07/21 08:59 Last Admin: 01/11/21 08:45 Dose: 40 mg Documented by: Polyethylene Glycol (Polyethylene (Miralax) 17 Gm Pack) 17 gm PO DAILY PRN PRN Reason: Constipation Stop: 02/05/21 09:36 Tramadol HCl (Tramadol Hcl 50 Mg Tablet) 50 mg PO Q6H PRN PRN Reason: Pain Stop: 02/07/21 14:09 Last Admin: 01/10/21 22:58 Dose: 50 mg Documented by: (1) Hypertension Hypertension type: unspecified Qualified Code(s): I10 - Essential (primary) hypertension
[2021-01-11] MEDS: MONTELUKAST SODIUM 10 MG TABLET PO SCH (19:32)
[2021-01-11] MEDS: FLUTICASONE/VILANTEROL 200/25MCG 14 PUFFS/INHALER INH SCH (19:33)
[2021-01-12] MEDS: LEVOTHYROXINE SODIUM 50 MCG TABLET PO SCH (05:53)
[2021-01-12 06:43] LABS: Basophils # (auto) 0.02 K/uL (0-0.2); Basophils % (auto) 0.2 %; Eosinophils # (auto) 0.15 K/uL (0-0.5); Eosinophils % (auto) 1.6 %; Hematocrit (blood only) 23.9 % (37-47); Hemoglobin 7.9 g/dL (12.0-16.0); Immature Granulocytes % (auto) 2.1 %; Lymphocytes # (auto) 1.63 K/uL (1.2-3.4); Mean Corpuscular Hemoglobin 33.5 pg (25-34); Mean Corpuscular Hgb Conc 33.1 g/dL (32-36); Mean Corpuscular Volume 101.3 fL (80-100); Mean Platelet Volume 9.6 fL (7.4-10.4); Monocytes # (auto) 0.71 K/uL (0.11-0.59); Monocytes % (auto) 7.4 %; Neutrophils # (auto) 6.88 K/uL (1.4-6.5); Neutrophils % (auto) 71.7 %; Platelet Count 186 K/uL (130-400); RDW Coefficient of Variation 17.1 % (11.5-14.5); Red Blood Count 2.36 M/uL (4.2-5.4); White Blood Count 9.59 K/uL (4.8-10.8)
[2021-01-12 06:49] LABS: INR 1.1 (0.9-1.1); Prothrombin Time 10.9 Seconds (9.0-12.0)
[2021-01-12 07:07] LABS: Anisocytosis Present
[2021-01-12 07:18] LABS: Calcium 8.3 mg/dl (8.5-10.1); Creatinine Clr Calc Pharmacy 52.5 ml/min; Est GFR (African American) 62.5 ml/min; Est GFR (Non-African American) 53.9 ml/min; Potassium 3.3 mmol/L (3.5-5.1)
[2021-01-12] MEDS: PANTOprazole 40 MG TAB PO SCH (08:20)
[2021-01-12] MEDS: GABAPENTIN 100 MG CAP PO SCH (08:21)
[2021-01-12] MEDS: carvediloL 12.5 MG TAB PO SCH (08:21)
[2021-01-12] MEDS: lisinopril 5 MG TAB PO SCH (08:21)
[2021-01-12] MEDS ORDERED: POTASSIUM CHLORIDE CRTAB 20 MEQ TABCR PO STA (08:41)
--- NOTE | 2021-01-12 14:08 | Hospitalist Progress Note ---
Date of Service January 12, 2021 Assessment & Plan (1) Acute on chronic respiratory failure with hypoxia and hypercapnia: (2) Acute respiratory acidosis: Likely secondary to narcotic overdose in the setting of Obesity hypoventilation syndrome, Right hemidiaphragm paralysis This is a 80yo F with a PMH of asthma, nocturnal hypoxemia, dependence on supplemental O2, CAD, HTN, history of DVT/PE on coumadin, CKD III, chronic back pain and fibromyalgia on chronic narcotics and other medical problems listed below who presents with lethargy and hypoxia. Initially 83% on room air, now saturating at 93% on bipap Known nocturnal hypoxemia requiring 2L HS but ran out of O2 1.5 mo ago due to problems with insurance coverage, per No documented COPD but obesity hypoventilation syndrome a likely contributor Afebrile, procal wnl but right perihilar opacities on CXR -received Rocephin and Flagyl for about 48 hours Received intravenous Solu-Medrol and has not continued Appreciate pulmonary input and recommendation Could not tolerate BiPAP and has not been requiring any oxygen at rest Has had nocturnal oximetry that did not show any requirement of oxygen at night To a stable O2 saturation test-recommended 2 L of oxygen via nasal cannula with exertion She will be discharged home this afternoon Chronic pain syndrome Appreciate pain therapy input and recommendation We will try to reduce the use of narcotics as an outpatient Discussed with the patient and the family members (3) Acute metabolic encephalopathy: In setting of prolonged hypoxia with noncompliance with home oxygen, also on chronic narcotics for back pain/fibromyalgia CT head without hemorrhage, mass effect, or evidence of acute territorial ischemia by CT criteria Narcan administered in case opioids contributing to respiratory failure Restarted Gabapentin, DC Amitryptiline, Duloxetine --> With above medications, pain well controlled, no signs of altered mental status Pain management service consulted, agree with above No infection noted PT/OT eval: Recommending SNF The patient and the family members wanted the patient to be discharged home and not to SNF Discussed with the and she will be discharged home this afternoon (4) Hematoma of iliopsoas muscle: Patient had a fall prior to admission, possible etiology of iliopsoas muscle hemorrhage in the setting of chronic Coumadin use January 09, 2021, Hg decreased from 9 to 7 Acute blood loss anemia Reporting left-sided inguinal pain secondary to hematoma CT abdomen/pelv: IMPRESSION: 1. Interval development of a left-sided retroperitoneal iliopsoas hemorrhage measuring 19 x 9 x 6 cm. 2. No evidence of bowel obstruction. No evidence of free air. d/c heparin, warfarin Discussed with Dr. Garza Protamine 10mg IV ordered to reverse Heparin 1 unit of packed RBC ordered, hemoglobin improved from 7.4, now 8.5 Presently, has minimal left inguinal and lower back pain discomfort Repeat CT scan of the abdomen pelvis: Hematoma unchanged INR 2.0, vitamin K 5 mg p.o. ordered PTT down from 59 to 22 Will not restart any anticoagulation for now and there is discussed with the patient General surgery consulted-appreciate input and recommendation and presently signed off (5) History of pulmonary embolism: per admitting service notes: H/o DVT/PE, last episode few years ago per patient and her , on [employer] anticoagulation with coumadin Bilateral venous dopplers ordered for eval of DVT: negative HOLD anticoagulation secondary to iliopsoas hematoma management per above Will not restart anticoagulation for at least 1 to 2 weeks (6) Lumbar radiculopathy, chronic: management per above (7) Hypertension: Home regimen includes carvedilol, lisinopril (8) CAD (coronary artery disease): Continue Carvedilol, Lisinopril (9) Hypothyroidism: Continue levothyroxine DVT Ppx: Continue coumadin, IV heparin bridge Code status: DNR/DNI per discussion with PCP: Marika Salas Dispo: PT/OT evaluation: Recommends to transition to SNF The patient refused to go to SNF Discussed with the and the patient in detail about importance of going to SNF The patient decided to go home Admission and Anticipated Discharge Date Admission Date: January 06, 2021 Subjective 01/11/2021 The patient was seen and examined in telemetry unit She remains generally weak but denies any other symptoms No abdominal pain, nausea and or vomiting No chest pain, palpitation and no shortness of breath at rest She wants to go home 01/12/2021 The patient was seen and examined in telemetry unit She remains weak and lethargic but denies any other significant symptoms Denies having any more abdominal pain, nausea and or vomiting Denies any respiratory symptoms Review of Systems Review of Systems: All systems reviewed and are unremarkable except as noted below Physical Exam Physical Exam: Lying in bed comfortably Constitutional: well developed and well nourished; not ill appearing Eyes: PERRL, conjunctivae normal, anicteric sclerae ENMT: external ear and nose normal, oropharynx normal Neck: trachea midline, no thyromegaly Respiratory: no respiratory distress Auscultation: + diminished lung sounds (Diminished lung sounds at right base) Cardiovascular: Rate/Rhythm: regular rate and regular rhythm Heart Sounds: no murmur Extremities: no edema Gastrointestinal (Abdomen): Inspection/Auscultation: + abdomen distended and normal bowel sounds Percussion/Palpation: abdomen soft; abdomen nontender Musculoskeletal: No acute arthritis in any joint Neurologic: Alert, awake and oriented x3. Generally very weak and lethargic Psychiatric: A+Ox3, euthymic affect Lymphatic: no cervical or axillary lymphadenopathy Results & Data Results & [facility] ([facility]) Vital Signs (Past 12 Hours) Vital Signs Temp Pulse Pulse Pulse Pulse Pulse Resp 01/12/21 12:00 36.6 C 73 24 01/12/21 09:26 96 H 90 90 91 H 01/12/21 07:30 36.8 C 85 23 01/12/21 05:20 90 01/12/21 03:32 71 01/12/21 03:00 36.8 C 87 22 Resp Resp Resp Resp BP Pulse Ox Pulse Ox 01/12/21 12:00 156/89 H 100 01/12/21 09:26 20 22 18 18 96 01/12/21 07:30 160/94 H 97 01/12/21 05:20 01/12/21 03:32 01/12/21 03:00 153/67 H 93 Pulse Ox Pulse Ox Pulse Ox 01/12/21 12:00 01/12/21 09:26 85 L 95 95 01/12/21 07:30 01/12/21 05:20 94 01/12/21 03:32 94 01/12/21 03:00 Laboratory Results Short CBC 01/12/21 Range/Units 06:17 WBC 9.59 (4.8-10.8) K/uL Hgb 7.9 L (12.0-16.0) g/dL Hct 23.9 L (37-47) % Plt Count 186 (130-400) K/uL BMP 01/12/21 06:17 Sodium 142 Potassium 3.3 L Chloride 109 H Carbon Dioxide 27 BUN 23 H Creatinine 1.00 D Glucose 74 Calcium 8.3 L Medications Administered Current Inpatient Medications Acetaminophen (Acetaminophen 500 Mg Tab) 500 mg PO Q4H PRN PRN Reason: Headache Stop: 02/07/21 12:28 Last Admin: 01/11/21 19:32 Dose: 500 mg Documented by: Albuterol (Albut/Ipratrop 3mg/0.5mg Neb 3 Ml Vial) 3 ml NEB Q2H PRN PRN Reason: Shortness of Breath/Wheezing Stop: 02/05/21 08:40 Albuterol (Albuterol Hfa 8 Gm Inhaler) 2 puffs INH Q4 PRN PRN Reason: Shortness Of Breath Or Wheezing Stop: 02/05/21 09:58 Alendronate Sodium (Alendronate Sodium 70 Mg Tab) 70 mg PO We@0700 [facility] Stop: 02/10/21 06:59 Last Admin: 01/11/21 06:36 Dose: 70 mg Documented by: Carvedilol (Carvedilol 12.5 Mg Tab) 12.5 mg PO BID [facility] Stop: 02/06/21 10:59 Last Admin: 01/12/21 08:21 Dose: 12.5 mg Documented by: Fluticasone/Vilanterol (Fluticasone/Vilanterol 200/25mcg 14 Puffs/Inhaler) 1 puffs INH PM [facility] Stop: 02/05/21 20:59 Last Admin: 01/11/21 19:33 Dose: 1 puffs Documented by: Gabapentin (Gabapentin 100 Mg Cap) 100 mg PO BID [facility] Stop: 02/08/21 20:59 Last Admin: 01/12/21 08:21 Dose: 100 mg Documented by: Levothyroxine Sodium (Levothyroxine Sodium 50 Mcg Tablet) 50 mcg PO DAILYBB [facility] Stop: 02/07/21 06:29 Last Admin: 01/12/21 05:53 Dose: 50 mcg Documented by: Lisinopril (Lisinopril 5 Mg Tab) 5 mg PO QAM [facility] Stop: 02/07/21 08:59 Last Admin: 01/12/21 08:21 Dose: 5 mg Documented by: Montelukast Sodium (Montelukast Sodium 10 Mg Tablet) 10 mg PO HS [facility] Stop: 02/06/21 20:59 Last Admin: 01/11/21 19:32 Dose: 10 mg Documented by: Ondansetron HCl (Ondansetron Inj 2 Mg/Ml 2 Ml Vial) 4 mg IV Q6H PRN PRN Reason: Nausea Stop: 02/05/21 09:36 Oxycodone/Acetaminophen (Oxycodone/Acetaminophen 5mg/325mg Tab) 1 tab PO Q4H PRN PRN Reason: Pain Stop: 01/22/21 15:46 Last Admin: 01/09/21 04:10 Dose: 1 tab Documented by: Pantoprazole Sodium (Pantoprazole 40 Mg Tab) 40 mg PO DAILY [facility] Stop: 02/07/21 08:59 Last Admin: 01/12/21 08:20 Dose: 40 mg Documented by: Polyethylene Glycol (Polyethylene (Miralax) 17 Gm Pack) 17 gm PO DAILY PRN PRN Reason: Constipation Stop: 02/05/21 09:36 Tramadol HCl (Tramadol Hcl 50 Mg Tablet) 50 mg PO Q6H PRN PRN Reason: Pain Stop: 02/07/21 14:09 Last Admin: 01/10/21 22:58 Dose: 50 mg Documented by: (1) Hypertension Hypertension type: unspecified Qualified Code(s): I10 - Essential (primary) hypertension
--- NOTE | 2021-01-13 09:05 | Discharge Summary ---
Date of Service January 13, 2021 Admission HPI Per Admitting Provider This is a 80yo F with a PMH of asthma, nocturnal hypoxemia, dependence on supplemental O2, CAD, HTN, history of DVT/PE on coumadin, CKD III, chronic back pain and fibromyalgia on chronic narcotics and other medical problems listed below who presents with lethargy and hypoxia. History obtained primarily from due to patient's somnolent state. Patient has been sleeping more throughout the past few weeks. notes that they are having problems with insurance coverage for oxygen that she uses at night and patient has not been on it for past 1.5 months. called EMS this morning when was too weak to get back into bed and seemed incoherent. Was noted to be hypoxic at 83% by EMS and was brought in for further evaluation. States that she has been taking home medication as prescribed until this morning when she was too lethargic to take pills. Admission Exam Per Admitting Provider Physical Exam: General Appearance: vitals as above, lying in bed, somnolent on bipap, obese, minimally responsive with nodding yes/no Head: normocephalic, atraumatic Eyes: normal inspection, PERRL, conjunctivae normal, anicteric sclerae ENT: external ear and nose normal, wearing bipap mask Neck: normal visual inspection, trachea midline, no thyromegaly Respiratory: increased respiratory effort, diffuse rhonchi & expiratory wh eezing. No accessory muscle use Cardiovascular: regular rate, rhythm, no murmur, normal peripheral pulses, no BLE edema. Vessels: no JVD Chest: normal inspection of chest Abdomen/GI: normal bowel sounds, soft, nontender, no hepatosplenomegaly Extremities/Musculoskeletal: no cyanosis or clubbing, extremities motor strength 5/5 Neurologic: PERRL, no face palsy, no dysarthria, CN's II-XI intact bilaterally and moves all extremities Psychiatric: somnolent Skin: no rashes, normal color, warm/dry Principal Diagnosis Acute on chronic respiratory failure with hypoxia and hypercapnia, acute metabolic encephalopathy-resolved, hematoma of left ileopsoas muscle in the setting of Coumadin use, history of pulmonary embolism, chronic pain Discharge Exam Constitutional well developed and well nourished; not ill appearing Eyes PERRL, conjunctivae normal, anicteric sclerae ENMT external ear and nose normal, oropharynx normal Neck trachea midline, no thyromegaly Respiratory no respiratory distress Auscultation: + diminished lung sounds (Diminished lung sounds at right base) Cardiovascular Rate/Rhythm: regular rate and regular rhythm Heart Sounds: no murmur Extremities: no edema Gastrointestinal (Abdomen) Inspection/Auscultation: + abdomen distended and normal bowel sounds Percussion/Palpation: abdomen soft; abdomen nontender Psychiatric A+Ox3, euthymic affect Lymphatic no cervical or axillary lymphadenopathy Discharge Data Allergies Allergy/AdvReac Type Severity Reaction Status Date / Time aspirin Allergy Unknown Unknown Verified 01/06/21 07:40 Sulfa (Sulfonamide Allergy Unknown Unknown Verified 01/06/21 07:40 Antibiotics) Consultations 01/06/21 07:32 ED Decision to Admit Stat 01/06/21 08:41 Consult Pulmonology Routine 01/08/21 16:27 Consult Pain Management Routine 01/10/21 07:46 Consult General Surgery Routine Ordered Studies 01/06/21 07:14 CT head/brain wo con Stat 01/06/21 10:30 US venous doppler LE BI Routine 01/09/21 11:09 CT abd pelvis wo con Stat 01/10/21 07:46 CT abd pelvis wo con Routine Hospital Course (1) Acute on chronic respiratory failure with hypoxia and hypercapnia: (2) Acute respiratory acidosis: Likely secondary to narcotic overdose in the setting of Obesity hypoventilation syndrome, Right hemidiaphragm paralysis This is a 80yo F with a PMH of asthma, nocturnal hypoxemia, dependence on supplemental O2, CAD, HTN, history of DVT/PE on coumadin, CKD III, chronic back pain and fibromyalgia on chronic narcotics and other medical problems listed below who presents with lethargy and hypoxia. Initially 83% on room air, now saturating at 93% on bipap Known nocturnal hypoxemia requiring 2L HS but ran out of O2 1.5 mo ago due to problems with insurance coverage, per No documented COPD but obesity hypoventilation syndrome a likely contributor Afebrile, procal wnl but right perihilar opacities on CXR -received Rocephin and Flagyl for about 48 hours Received intravenous Solu-Medrol and has not continued Appreciate pulmonary input and recommendation Could not tolerate BiPAP and has not been requiring any oxygen at rest Has had nocturnal oximetry that did not show any requirement of oxygen at night To a stable O2 saturation test-recommended 2 L of oxygen via nasal cannula with exertion She will be discharged home this afternoon Chronic pain syndrome Appreciate pain therapy input and recommendation We will try to reduce the use of narcotics as an outpatient Discussed with the patient and the family members (3) Acute metabolic encephalopathy: In setting of prolonged hypoxia with noncompliance with home oxygen, also on chronic narcotics for back pain/fibromyalgia CT head without hemorrhage, mass effect, or evidence of acute territorial ischemia by CT criteria Narcan administered in case opioids contributing to respiratory failure Restarted Gabapentin, DC Amitryptiline, Duloxetine --> With above medications, pain well controlled, no signs of altered mental status Pain management service consulted, agree with above No infection noted PT/OT eval: Recommending SNF The patient and the family members wanted the patient to be discharged home and not to SNF Discussed with the and she will be discharged home this afternoon (4) Hematoma of iliopsoas muscle: Patient had a fall prior to admission, possible etiology of iliopsoas muscle hemorrhage in the setting of chronic Coumadin use January 09, 2021, Hg decreased from 9 to 7 Acute blood loss anemia Reporting left-sided inguinal pain secondary to hematoma CT abdomen/pelv: IMPRESSION: 1. Interval development of a left-sided retroperitoneal iliopsoas hemorrhage measuring 19 x 9 x 6 cm. 2. No evidence of bowel obstruction. No evidence of free air. d/c heparin, warfarin Discussed with Dr. Garza Protamine 10mg IV ordered to reverse Heparin 1 unit of packed RBC ordered, hemoglobin improved from 7.4, now 8.5 Presently, has minimal left inguinal and lower back pain discomfort Repeat CT scan of the abdomen pelvis: Hematoma unchanged INR 2.0, vitamin K 5 mg p.o. ordered PTT down from 59 to 22 Will not restart any anticoagulation for now and there is discussed with the patient General surgery consulted-appreciate input and recommendation and presently signed off (5) History of pulmonary embolism: per admitting service notes: H/o DVT/PE, last episode few years ago per patient and her , on nursing home anticoagulation with coumadin Bilateral venous dopplers ordered for eval of DVT: negative HOLD anticoagulation secondary to iliopsoas hematoma management per above Will not restart anticoagulation for at least 1 to 2 weeks (6) Lumbar radiculopathy, chronic: management per above (7) Hypertension: Home regimen includes carvedilol, lisinopril (8) CAD (coronary artery disease): Continue Carvedilol, Lisinopril (9) Hypothyroidism: Continue levothyroxine DVT Ppx: Continue coumadin, IV heparin bridge Code status: DNR/DNI per discussion with PCP: Marika Salas Dispo: PT/OT evaluation: Recommends to transition to SNF The patient refused to go to SNF Discussed with the and the patient in detail about importance of going to SNF The patient decided to go home Total Time Total Time Spent Total Time Spent (In Minutes): 45 minutes Total Time Includes: Examination of the Patient, Discharge Planning, Medication Reconciliation and Communication With Other Providers Discharge Plan Discharge Items Patient Disposition: Home - Home Health Services Reason For Visit: ACUTE HYPOXIC AND HYPERCAPNIC RESP FAILURE Discharge Diagnosis: Acute on chronic respiratory failure with hypoxia and hypercapnia, acute metabolic encephalopathy-resolved, hematoma of left ileopsoas muscle in the setting of Coumadin use, history of pulmonary embolism, chronic pain Condition on Discharge: Fair Activity: Resume your previous activity Non-emergency contact: Primary Care Provider Call non-emergency contact if: you have any medication questions and your symptoms worsen Follow-up/Referrals: Giorgio Salas DO [Primary Care Provider] - (Date & Time 01/17/2021 11:00 AM Provider Giorgio Salas DO Department [facility] ) Diet: Low Fiber Addtl Attending Provider Instructions: Please take extreme precaution to avoid fall Use oxygen as advised Try to use your narcotics pain medication as less as possible Your hydromorphone has been discontinued Coumadin has been discontinued temporarily as discussed with you and can be restarted after discussion with your primary care provider in about 2 to 3 weeks Your gabapentin doses have been decreased to twice daily Pending Studies at Discharge: No Stand-Alone Forms: My [employer] Work Study, Smoking Cessation Medications and DC Order Prescriptions: Continued duloxetine 30 mg capsule,delayed release(DR/EC) 30 mg PO HS RF: 0 fluticasone propion-salmeterol [Advair Diskus] 250-50 mcg/dose Blister With Device 1 inh INHALATION BID RF: 0 pantoprazole 40 mg tablet,delayed release (DR/EC) 40 mg PO DAILY RF: 0 levothyroxine 50 mcg tablet 50 mcg PO DAILYBB RF: 0 carvedilol 12.5 mg tablet 12.5 mg PO BID RF: 0 alendronate 70 mg tablet 70 mg PO WK RF: 0 amitriptyline 25 mg tablet 25 mg PO HS RF: 0 montelukast 10 mg tablet 10 mg PO HS RF: 0 lisinopril 5 mg tablet 5 mg PO QAM RF: 0 albuterol sulfate [Ventolin HFA] 90 mcg/actuation Hfa Aerosol Inhaler 2 puff INHALATION Q4 PRN (Reason: Shortness Of Breath Or Wheezing) RF: 0 atorvastatin 20 mg tablet 20 mg PO DAILY RF: 0 sumatriptan succinate 100 mg tablet 100 mg PO UD PRN (Reason: Migraine Headache) RF: 0 albuterol sulfate 2.5 mg /3 mL (0.083 %) Solution For Nebulization 2.5 mg INHALATION Q4H PRN (Reason: Wheezing) RF: 0 oxycodone-acetaminophen 5-325 mg tablet 1 tab PO Q6 PRN (Reason: Severe Pain (Scale Score 7-10)) RF: 0 cyanocobalamin (vitamin B-12) 1,000 mcg/mL Solution 1,000 mcg IM Q4WK RF: 0 cholecalciferol (vitamin D3) 25 mcg (1,000 unit) Capsule 25 mcg PO DAILY RF: 0 Changed gabapentin 100 mg capsule 100 mg PO BID Qty: 0 RF: 0 Discontinued warfarin [Jantoven] 5 mg tablet 5 mg PO 5XWK RF: 0 hydromorphone 8 mg tablet extended release 24 hr 8 mg PO BID RF: 0 warfarin [Jantoven] 5 mg tablet 2.5 mg PO 2XWK RF: 0 Discharge Orders: Discharge Order (Routine); Ordered 01/12/21 Ordered By: Jayla Carbajal Admission Data Admit Date/Time: 01/06/21 08:25 Attending Provider: Jayla Carbajal Admit Provider: So Reed Primary Care Provider: Giorgio Salas Other Providers: Manuel Pino ; Wally Bains ; So Reed ; [facility] ; Doc Headley ; Sarika Neal ; Sanya Ha ; Aby Alexandre ; Jose Knox ; Luis Whyte ; [facility] Other Interventions: Discharge Summary Assessment (RN) Last Done: 01/12/21 14:34
== END 2021-01-12 16:28 | disposition home health service (06) | DRG 189 ==
LOC: ED 05:42 → SUATTDRO 08:25 → 2E 08:25

== ENCOUNTER 2021-01-24 15:47 | Inpatient (IN) ==
[2021-01-24 17:24] LABS: Basophils # (auto) 0.02 K/uL (0-0.2); Basophils % (auto) 0.4 %; Eosinophils # (auto) 0.07 K/uL (0-0.5); Eosinophils % (auto) 1.2 %; Hematocrit (blood only) 26.8 % (37-47); Hemoglobin 8.8 g/dL (12.0-16.0); Lymphocytes # (auto) 0.73 K/uL (1.2-3.4); Lymphocytes % (auto) 12.9 %; Mean Corpuscular Hemoglobin 34.8 pg (25-34); Mean Corpuscular Hgb Conc 32.8 g/dL (32-36); Mean Corpuscular Volume 105.9 fL (80-100); Mean Platelet Volume 9.3 fL (7.4-10.4); Monocytes # (auto) 0.16 K/uL (0.11-0.59); Monocytes % (auto) 2.8 %; Neutrophils # (auto) 4.69 K/uL (1.4-6.5); Neutrophils % (auto) 82.7 %; Platelet Count 283 K/uL (130-400); RDW Coefficient of Variation 16.6 % (11.5-14.5); RDW Standard Deviation 63.6 fL (36.4-46.3); Red Blood Count 2.53 M/uL (4.2-5.4); White Blood Count 5.67 K/uL (4.8-10.8)
[2021-01-24 17:26] LABS: INR 1.1 (0.9-1.1); Prothrombin Time 11.3 Seconds (9.0-12.0)
[2021-01-24 17:28] LABS: Base Excess VBG -0.3 mEq/L; Oxygen Saturation VBG 78.1 %; pH VBG 7.38 (7.36-7.41)
[2021-01-24 17:44] LABS: Alanine Aminotransferase 12 U/L (12-78); Albumin Level 2.5 gm/dl (3.4-5.0); Aspartate Aminotransferase 26 U/L (15-37); BUN Creatinine Ratio 16.2 (10-20); Blood Urea Nitrogen 17 mg/dl (7-18); Calcium 8.6 mg/dl (8.5-10.1); Carbon Dioxide 25 mmol/L (21-32); Chloride 109 mmol/L (98-107); Creatinine Clr Calc Pharmacy 51.2 ml/min; Est GFR (Non-African American) 52.6 ml/min; Glucose 84 mg/dl (70-99); Magnesium 1.7 mg/dl (1.8-2.4); Sodium 140 mmol/L (136-145)
[2021-01-24 17:55] LABS: Albumin Globulin Ratio 0.6 (0.9-2); Alkaline Phosphatase 84 U/L (45-117); Bilirubin,Total 1.5 mg/dl (0.2-1); Thyroid Stimulating Hormone 0.451 uIu/ml (0.300-4.500); Total Protein 6.5 gm/dl (6.4-8.2); Troponin I < 0.015 ng/ml (0-0.045)
--- NOTE | 2021-01-24 18:11 | XRay Report ---
XR chest 1V portable HISTORY: weakness COMPARISON: Chest 01/06/2021. FINDINGS: No pneumothorax. The cardiac silhouette remains mildly enlarged. A few bibasilar linear den sities favor subsegmental atelectasis. This is similar to the prior study. No new focal lung consolid ations to suggest pneumonia. No evidence for pulmonary edema. There is chronic elevation of the right hemidiaphragm. Advanced degenerative changes again noted within the shoulders. IMPRESSION: No significant change compared to the prior study. No acute process. ACT 112: Negative or not required by law. Electronically signed by: Clyde Jensen M.D. 01/24/2021 6:09 PM
[2021-01-24] MEDS ORDERED: MAGNESIUM SULFATE / D5W 1 GM/100 ML BAG IV STA (18:22)
--- NOTE | 2021-01-24 18:32 | Emergency Department Note ---
Impression & Plan Weakness, Fatigue, Ambulatory dysfunction, Hypomagnesemia ED Provider Note Provider: Eulogio Caruso MD DATE OF SERVICE: 01/24/2021 CHIEF COMPLAINT: Weakness HISTORY OF PRESENT ILLNESS: Patient is a 80-year-old female with a history of atrial flutter, pulmonary embolism, CAD, hypertension, chronic respiratory failure on home oxygen, and recent hospitalization approximately 10 days ago presenting from home via ambulance today due to worsening weakness. Patient states since discharged she was doing well but over the past approximately 3 days or so she has had worsening generalized weakness. Patient denies any syncope or significant trauma; report that she did slide to the floor at one point slowly with her as her legs could not hold her. Patient states he feels somewhat drowsy at times. She denies any fever or runny nose or difficulty breathing. Denies any abdominal pain at this point. Denies urinary symptoms. Denies any new focal numbness or weakness. Patient states she has been using her oxygen at home. has concerns about ability to care for self at home given her worsened weakness. Patient denies significant back or abdominal pain. REVIEW OF SYSTEMS: A total of 10 review of systems was obtained and negative except as stated above in the HPI. PAST MEDICAL HISTORY: As noted above MEDICATIONS: Reviewed home medications SOCIAL HISTORY: Lives at home with on home oxygen PHYSICAL EXAM: GENERAL: alert and oriented in no acute distress on stretcher Head: normocephalic and atraumatic EYES: No injection, discharge or icterus. PERRL NECK: Trachea midline. Supple. LUNGS: Airway patent. No retractions. Breath sounds clear HEART: Regular rate and rhythm. No chest wall tenderness ABDOMEN: Soft and non-tender, without guarding or rebound. SKIN: Acyanotic, warm, dry EXTREMITIES: Without swelling, tenderness or deformity with extensive partially healed bruising on the left upper arm she reports related to prior IV with some slight tenderness with palpation. NEUROLOGICAL: No focal deficits moving all extremities. No aphasia. No facial droop or slurred speech. EK bpm normal sinus rhythm. Left bundle branch block is noted. No acute ST segment elevation or depression noted with a QTC of 497. CONTINUOUS CARDIAC MONITORING: was ordered and showed a heart rate of seventies to nineties bpm in normal sinus rhythm with left bundle branch block Patient's laboratory studies and imaging reviewed. Differential includes Infection, dehydration, metabolic abnormality, hypo/hyperglycemia, electrolyte disturbance, anemia, hypoxia, cardiac sources, intracerebral event, toxicologic, neurologic, as well as other pathologies. IMPRESSION/MEDICAL DECISION MAKING: Patient presents with some generalized weakness and fatigue/drowsiness by report. Moving all extremities to command. No significant focal deficits lower suspicion for acute CVA. No significant new trauma reported though she was lowered to the floor today. No fever symptoms reported. Denies shortness of breath and on baseline home oxygen at this point. Chest x-ray is unchanged according to radiology. Blood work here shows improving anemia. Not having s ignificant pain and not currently on anticoagulation after recent iliopsoas hematoma. Renal function appears stable. Slight hypomagnesemia although this does not explain her symptoms. No other severe electrolyte abnormality. Troponin is undetectable. TSH within normal limits. CT of the head completed for completeness per radiology without acute changes. VBG without evidence of acidosis or hypercarbia. Urinalysis still pending collection by nursing. Given ambulatory dysfunction or weakness do not feel the patient would be safe for discharge home at this point although do not have a clear explanation for some of her weakness and fatigue beyond deconditioning. general sales manager discussed with patient and possible rehab referral although declining this given prior issues with [facility] and home health. Given her significant weakness and fatigue in discussion with the patient and family feel further care here at the hospital be warranted with the possible need for placement. Hospitalist was contacted. DIAGNOSIS: Weakness, fatigue, ambulatory dysfunction, hypomagnesemia DISPOSITION: Hospitalist will evaluate Patient was agreeable with this plan. Past Med/Surg History Medical History (Updated 01/24/21 @ 20:18 by Eulogio Caruso M.D.) Asthma USES PRN INH 1 X WK Atrial flutter PT COULD NOT CONFIRM Chronic anticoagulation Chronic left hip pain Diffuse myofascial pain syndrome History of DVT (deep vein thrombosis) RLE - 20 YEARS AGO FOLLOWING INJURY History of endometriosis History of MO (myocardial infarction) 2018 - FOLLOWS W/ DR. JACOBSEN History of pulmonary embolism Hypertension Hypothyroidism Migraine On anticoagulant therapy On home oxygen therapy 2 LPM 02 QHS Opioid dependence Osteoarthritis Osteoporosis Poor historian Pulmonary edema Pulmonary embolism (10/10/12) 20 YEARS AGO AFTER INJURY 30 YEARS AGO - POST OP CHOLEYCYSTECTOMY ON WARFARIN Sleep apnea NO DEVICE Surgical History History of appendectomy History of cardiac cath 2018 - [place] - NO STENTS History of cataract surgery History of section History of cholecystectomy History of colonoscopy History of esophagogastroduodenoscopy (EGD) History of left knee surgery History of tonsillectomy History of total abdominal hysterectomy and bilateral salpingo-oophorectomy History of tubal ligation Family History Father Esophageal cancer Social History Smoking Status: Never smoker Second Hand Exposure: Yes (FAMILY MEMBERS CURRENTLY SMOKE); Hx Alcohol Use: No Hx Substance Use: No Preferred Language: Divehi Communication Ability: Impaired Visual Impairment: No Limitations Hearing Ability: Normal 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 Required: No Beliefs That Will Affect Care: None marital status: Current Living Situation: Spouse current occupational status: retired Feels Safe at Home: Yes Assistive Devices: Oxygen - Continuous Allergies Allergies Allergy/AdvReac Type Severity Reaction Status Date / Time aspirin Allergy Unknown Unknown Verified 01/24/21 17:02 Sulfa (Sulfonamide Allergy Unknown Unknown Verified 01/24/21 17:02 Antibiotics) Home Meds Home Medications Medication Instructions Recorded Confirmed albuterol sulfate [Ventolin HFA] 2 puff INHALATION Q4 PRN 11/10/18 01/24/21 alendronate 70 mg PO WK 11/10/18 01/24/21 amitriptyline 25 mg PO HS 11/10/18 01/24/21 carvedilol 12.5 mg PO BID 11/10/18 01/24/21 lisinopril 5 mg PO QAM 11/10/18 01/24/21 montelukast 10 mg PO HS 11/10/18 01/24/21 duloxetine 30 mg PO HS 02/28/19 01/24/21 fluticasone propion-salmeterol 1 inh INHALATION BID 03/03/19 01/24/21 [Advair Diskus] pantoprazole 40 mg PO DAILY 07/22/19 01/24/21 atorvastatin 20 mg PO DAILY 10/11/19 01/24/21 levothyroxine 50 mcg PO DAILYBB 01/15/20 01/24/21 sumatriptan succinate 100 mg PO UD PRN 06/27/20 01/24/21 albuterol sulfate 2.5 mg INHALATION Q4H PRN 01/06/21 01/24/21 cholecalciferol (vitamin D3) 25 mcg PO DAILY 01/06/21 01/24/21 cyanocobalamin (vitamin B-12) 1,000 mcg IM Q4WK 01/06/21 01/24/21 oxycodone-acetaminophen 1 tab PO Q6 PRN 01/06/21 01/24/21 Previous Rx's Medication Instructions Recorded gabapentin 100 mg PO BID #0 cap 01/12/21 Results & Data (ED) Vital Signs Vital Signs - 24 hr 01/24/21 16:01 01/24/21 16:09 01/24/21 18:08 Temperature 36.8 C Temperature Source Oral Pulse Rate 92 H 88 Pulse Rate [Apical] 88 Pulse Rhythm Regular Pulse Strength Normal Respiratory Rate 18 20 Respiratory Effort / Characteristics Non-Labored Spontaneous Respiratory Depth Normal Respiratory Pattern Regular Blood Pressure 141/84 H Blood Pressure [Right Arm] 141/84 H Blood Pressure Mean 103 Blood Pressure Mean [Right Arm] 103 Blood Pressure Position Sitting Pulse Oximetry 100 100 98 Oxygen Delivery Method Nasal Cannula Nasal Cannula Nasal Cannula Oxygen Flow Rate 2 2 2 Sepsis Recent Fever Within 48 Hours No Sepsis New/Unexplained Change in Mental Status No Sepsis Action Taken by Nursing No Action Required Laboratory Data Result diagrams: 01/24/21 17:10 01/24/21 17:10 Lab Results 01/24/21 01/24/21 01/24/21 Range/Units 16:48 17:10 17:10 WBC 5.67 (4.8-10.8) K/uL RBC 2.53 L (4.2-5.4) M/uL Hgb 8.8 L (12.0-16.0) g/dL Hct 26.8 L (37-47) % MCV 105.9 H (80-100) fL MCH 34.8 H (25-34) pg MCHC 32.8 (32-36) g/dL RDW Std Deviation 63.6 H (36.4-46.3) fL RDW Coeff of Vijay 16.6 H (11.5-14.5) % Plt Count 283 (130-400) K/uL MPV 9.3 (7.4-10.4) fL Immature Gran % (Auto) 0.0 % Neut % (Auto) 82.7 % Lymph % (Auto) 12.9 % [place] % (Auto) 2.8 % Eos % (Auto) 1.2 % Baso % (Auto) 0.4 % Neut # (Auto) 4.69 (1.4-6.5) K/uL Lymph # (Auto) 0.73 L (1.2-3.4) K/uL [place] # (Auto) 0.16 (0.11-0.59) K/uL Eos # (Auto) 0.07 (0-0.5) K/uL Baso # (Auto) 0.02 (0-0.2) K/uL Immature Gran # (Auto) 0.00 (0.00-0.02) K/uL PT 11.3 (9.0-12.0) Seconds INR 1.1 (0.9-1.1) VBG pH 7.38 (7.36-7.41) VBG pCO2 44 (38-50) mmHg VBG pO2 41 mmHg VBG HCO3 25 mmol/L VBG O2 Saturation 78.1 % VBG Base Excess -0.3 mEq/L Barometric Pressure 733.2 mm/Hg Sodium (136-145) mmol/L Potassium (3.5-5.1) mmol/L Chloride (98-107) mmol/L Carbon Dioxide (21-32) mmol/L Anion Gap (3-11) BUN (7-18) mg/dl Creatinine (0.6-1.2) mg/dl Est Cr Clr Drug Dosing ml/min Est GFR ( Amer) ml/min Est GFR (Non-Af Amer) ml/min BUN/Creatinine Ratio (10-20) Glucose (70-99) mg/dl Calcium (8.5-10.1) mg/dl Magnesium (1.8-2.4) mg/dl Total Bilirubin (0.2-1) mg/dl AST (15-37) U/L ALT (12-78) U/L Alkaline Phosphatase (45-117) U/L Troponin I (0-0.045) ng/ml Total Protein (6.4-8.2) gm/dl Albumin (3.4-5.0) gm/dl Globulin (2.5-4.0) gm/dl Albumin/Globulin Ratio (0.9-2) TSH (0.300-4.500) uIu/ml COVID-19 Eval Order SARS-CoV-2 (PCR) (Negative) 01/24/21 01/24/21 01/24/21 Range/Units 17:10 18:24 18:24 WBC (4.8-10.8) K/uL RBC (4.2-5.4) M/uL Hgb (12.0-16.0) g/dL Hct (37-47) % MCV (80-100) fL MCH (25-34) pg MCHC (32-36) g/dL RDW Std Deviation (36.4-46.3) fL RDW Coeff of Vijay (11.5-14.5) % Plt Count (130-400) K/uL MPV (7.4-10.4) fL Immature Gran % (Auto) % Neut % (Auto) % Lymph % (Auto) % [place] % (Auto) % Eos % (Auto) % Baso % (Auto) % Neut # (Auto) (1.4-6.5) K/uL Lymph # (Auto) (1.2-3.4) K/uL [place] # (Auto) (0.11-0.59) K/uL Eos # (Auto) (0-0.5) K/uL Baso # (Auto) (0-0.2) K/uL Immature Gran # (Auto) (0.00-0.02) K/uL PT (9.0-12.0) Seconds INR (0.9-1.1) VBG pH (7.36-7.41) VBG pCO2 (38-50) mmHg VBG pO2 mmHg VBG HCO3 mmol/L VBG O2 Saturation % VBG Base Excess mEq/L Barometric Pressure mm/Hg Sodium 140 (136-145) mmol/L Potassium 4.0 (3.5-5.1) mmol/L Chloride 109 H (98-107) mmol/L Carbon Dioxide 25 (21-32) mmol/L Anion Gap 6.0 (3-11) BUN 17 (7-18) mg/dl Creatinine 1.02 (0.6-1.2) mg/dl Est Cr Clr Drug Dosing 51.2 ml/min Est GFR ( Amer) 61.0 ml/min Est GFR (Non-Af Amer) 52.6 ml/min BUN/Creatinine Ratio 16.2 (10-20) Glucose 84 (70-99) mg/dl Calcium 8.6 (8.5-10.1) mg/dl Magnesium 1.7 L (1.8-2.4) mg/dl Total Bilirubin 1.5 H (0.2-1) mg/dl AST 26 (15-37) U/L ALT 12 (12-78) U/L Alkaline Phosphatase 84 (45-117) U/L Troponin I < 0.015 (0-0.045) ng/ml Total Protein 6.5 (6.4-8.2) gm/dl Albumin 2.5 L (3.4-5.0) gm/dl Globulin 4.0 (2.5-4.0) gm/dl Albumin/Globulin Ratio 0.6 L (0.9-2) TSH 0.451 (0.300-4.500) uIu/ml COVID-19 Eval Order Covid19 at [facility] SARS-CoV-2 (PCR) NEGATIVE (Negative) Administered Medications Discontinued Medications Magnesium Sulfate/Dextrose (Magnesium Sulfate / D5w) 1 gm in 100 mls @ 100 mls/hr IV NOW STA Stop: 01/24/21 19:21 Last Infusion: 01/24/21 20:11 Dose: 0 mls/hr Documented by: [id number] Admin: 01/24/21 18:56 Dose: 100 mls/hr Documented by: [id number] Imaging Data Radiologist's Impression: Chest X-Ray 01/24/21 16:40 XR chest 1V portable HISTORY: weakness COMPARISON: Chest 01/06/2021. FINDINGS: No pneumothorax. The cardiac silhouette remains mildly enlarged. A few bibasilar linear densities favor subsegmental atelectasis. This is similar to the prior study. No new focal lung consolidations to suggest pneumonia. No evidence for pulmonary edema. There is chronic elevation of the right hemidiaphragm. Advanced degenerative changes again noted within the shoulders. IMPRESSION: No significant change compared to the prior study. No acute process. ACT 112: Negative or not required by law. Electronically signed by: Clyde Jensen M.D. 01/24/2021 6:[address] 01/24/21 16:[address] DOSE: 786.26 mGy.cm HISTORY: weakness, dizzy TECHNIQUE: Multiaxial CT images of the head were performed without the use of in travenous contrast. Automated exposure control was utilized for this study. A dose lowering technique was utilized adhering to the principles of ALARA. Comparison: Head CT 01/06/2021. Findings: The paranasal sinuses and mastoid air cells are clear. The calvarium and skull base are intact. There is no mass, hematoma, midline shift, acute infarct. White matter hypodensity is nonspecific but suggestive of microvascular ischemic change. The ventricles and sulci demonstrate mild age-related involutional changes. Impression: No acute intracranial abnormality. Atrophy and microvascular ischemic changes. ACT 112: Negative or not required by law. Electronically signed by: Clyde Jensen M.D. 01/24/2021 6:57 PM Discharge Plan Visit Data Chief Complaint: Weakness ED Provider: Eulogio Caruso Discharge Problem: Weakness, Fatigue, Ambulatory dysfunction, Hypomagnesemia Patient Disposition: Being Evaluated by Hospitalist Forms Stand Alone Forms: [facility] Prescriptions Prescriptions: No Action duloxetine 30 mg capsule,delayed release(DR/EC) 30 mg PO HS RF: 0 fluticasone propion-salmeterol [Advair Diskus] 250-50 mcg/dose Blister With Device 1 inh INHALATION BID RF: 0 pantoprazole 40 mg tablet,delayed release (DR/EC) 40 mg PO DAILY RF: 0 levothyroxine 50 mcg tablet 50 mcg PO DAILYBB RF: 0 carvedilol 12.5 mg tablet 12.5 mg PO BID RF: 0 alendronate 70 mg tablet 70 mg PO WK RF: 0 amitriptyline 25 mg tablet 25 mg PO HS RF: 0 montelukast 10 mg tablet 10 mg PO HS RF: 0 lisinopril 5 mg tablet 5 mg PO QAM RF: 0 albuterol sulfate [Ventolin HFA] 90 mcg/actuation Hfa Aerosol Inhaler 2 puff INHALATION Q4 PRN (Reason: Shortness Of Breath Or Wheezing) RF: 0 atorvastatin 20 mg tablet 20 mg PO DAILY RF: 0 sumatriptan succinate 100 mg tablet 100 mg PO UD PRN (Reason: Migraine Headache) RF: 0 albuterol sulfate 2.5 mg /3 mL (0.083 %) Solution For Nebulization 2.5 mg INHALATION Q4H PRN (Reason: Wheezing) RF: 0 oxycodone-acetaminophen 5-325 mg tablet 1 tab PO Q6 PRN (Reason: Severe Pain (Scale Score 7-10)) RF: 0 cyanocobalamin (vitamin B-12) 1,000 mcg/mL Solution 1,000 mcg IM Q4WK RF: 0 cholecalciferol (vitamin D3) 25 mcg (1,000 unit) Capsule 25 mcg PO DAILY RF: 0 gabapentin 100 mg capsule 100 mg PO BID Qty: 0 RF: 0 Referrals Referrals: Giorgio Salas, [Primary Care Provider] - Discharge Problem: Fatigue Qualifiers: Fatigue type: unspecified Qualified Code(s): R53.83 - Other fatigue
--- NOTE | 2021-01-24 18:59 | CT Scan Report ---
HEAD CT NONCONTRAST CT DOSE: 786.26 mGy.cm HISTORY: weakness, dizzy TECHNIQUE: Multiaxial CT images of the head were performed without the use of intravenous contrast. A utomated exposure control was utilized for this study. A dose lowering technique was utilized adheri ng to the principles of ALARA. Comparison: Head CT 01/06/2021. Findings: The paranasal sinuses and mastoid air cells are clear. The calvarium and skull base are int act. There is no mass, hematoma, midline shift, acute infarct. White matter hypodensity is nonspecifi c but suggestive of microvascular ischemic change. The ventricles and sulci demonstrate mild age-rela gonzales involutional changes. Impression: No acute intracranial abnormality. Atrophy and microvascular ischemic changes. ACT 112: Negative or not required by law. Electronically signed by: Clyde Jensen M.D. 01/24/2021 6:57 PM
--- NOTE | 2021-01-24 21:00 | History & Physical Report ---
Date of Service January 24, 2021 Assessment & Plan (1) Weakness: Multifactorial : Complicated UTI, no sepsis Deconditioning, patient refused SNF placement during last confinement. Home narcotics/neuropsychotropic meds contributory to episodic sleepiness at home. PAF/PE/DVT, px NSR, off anticoagulation given recent iliopsoas hematoma hx CAD as per records hypertension, slightly elevated hyperlipidemia on statin Rx hypothyroidism. Euthyroid as of today's TSH Chronic anemia, hemoglobin at baseline OBS GMF Urine CS, Ceftriaxone Hold parameters for narcotics/neuropsychotropic meds for sedation confusion. PT OT eval Social service RE discharge planning (Patient interested in rehab at [facility].) DVT prophylaxis. SCDs Re: Recent retroperitoneal hemorrhage DNR Patient requesting updates for providers. Mr. Bennie Silva, contact #[phone]. Text document was generated using [employer] voice recognition software. It may contain grammatical or spelling errors. Kindly contact undersigned for clarification of any documentation item in question. History of Present Illness Chief Complaint: Worsening weakness Primary Care Provider: Giorgio Salas, History obtained from patient and records. Medical history significant for asthma, PAF/PE/DVT off Coumadin secondary to recent use shows hematoma, CAD as per records, chronic LBBB, hypertension, hyperlipidemia, WAYLON as per records, hypothyroidism, chronic anemia (baseline hemoglobin of 8), fibromyalgia as per records. Recent confinement January 06-2020 for respiratory failure secondary to narcotic overdose. Patient also found to have traumatic left-sided retroperitoneal hemorrhage in the setting of Coumadin intake. Patient Coumadin stopped on discharge. PT OT recommended SNF but patient refused as per documentation. Patient noted to be fatigued at home. Patient denies chest pain, S OB, cough, abdominal pain symptoms. Sleeping a lot as per Labs ordered by PCP after recent outpatient follow-up visit last week. UA yesterday noted to be positive for WBC esterase, and nitrate. Patient brought to ER for evaluation because of worsening generalized weakness. Patient denies depression. Thinks she may have a urine infection. Denies abdominal pain, flank pain, fever, chills. 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 Allergies Allergy/AdvReac Type Severity Reaction Status Date / Time aspirin Allergy Unknown Unknown Verified 01/24/21 17:02 Sulfa (Sulfonamide Allergy Unknown Unknown Verified 01/24/21 17:02 Antibiotics) Home Medications Medication Instructions Recorded Confirmed Type albuterol sulfate [Ventolin HFA] 2 puff INHALATION Q4 PRN 11/10/18 01/24/21 History alendronate 70 mg PO WK 11/10/18 01/24/21 History amitriptyline 25 mg PO HS 11/10/18 01/24/21 History carvedilol 12.5 mg PO BID 11/10/18 01/24/21 History lisinopril 5 mg PO QAM 11/10/18 01/24/21 History montelukast 10 mg PO HS 11/10/18 01/24/21 History duloxetine 30 mg PO HS 02/28/19 01/24/21 History fluticasone propion-salmeterol 1 inh INHALATION BID 03/03/19 01/24/21 History [Advair Diskus] pantoprazole 40 mg PO DAILY 07/22/19 01/24/21 History atorvastatin 20 mg PO DAILY 10/11/19 01/24/21 History levothyroxine 50 mcg PO DAILYBB 01/15/20 01/24/21 History sumatriptan succinate 100 mg PO UD PRN 06/27/20 01/24/21 History albuterol sulfate 2.5 mg INHALATION Q4H PRN 01/06/21 01/24/21 History cholecalciferol (vitamin D3) 25 mcg PO DAILY 01/06/21 01/24/21 History cyanocobalamin (vitamin B-12) 1,000 mcg IM Q4WK 01/06/21 01/24/21 History oxycodone-acetaminophen 1 tab PO Q6 PRN 01/06/21 01/24/21 History gabapentin 100 mg PO BID #0 cap 01/12/21 01/24/21 Rx Past Med/Surg History Medical History (Updated 01/24/21 @ 20:18 by Eulogio Caruso M.D.) Asthma USES PRN INH 1 X WK Atrial flutter PT COULD NOT CONFIRM Chronic anticoagulation Chronic left hip pain Diffuse myofascial pain syndrome History of DVT (deep vein thrombosis) RLE - 20 YEARS AGO FOLLOWING INJURY History of endometriosis History of ID (myocardial infarction) 2018 - FOLLOWS W/ DR. JACOBSEN History of pulmonary embolism Hypertension Hypothyroidism Migraine On anticoagulant therapy On home oxygen therapy 2 LPM 02 QHS Opioid dependence Osteoarthritis Osteoporosis Poor historian Pulmonary edema Pulmonary embolism (10/10/12) 20 YEARS AGO AFTER INJURY 30 YEARS AGO - POST OP CHOLEYCYSTECTOMY ON W[place]IN Sleep apnea NO DEVICE Surgical History History of appendectomy History of cardiac cath 2018 - [place] - NO STENTS History of cataract surgery History of section History of cholecystectomy History of colonoscopy History of esophagogastroduodenoscopy (EGD) History of left knee surgery History of tonsillectomy History of total abdominal hysterectomy and bilateral salpingo-oophorectomy History of tubal ligation Family History Father Esophageal cancer Social History Smoking Status: Never smoker Second Hand Exposure: Yes (FAMILY MEMBERS CURRENTLY SMOKE); Hx Alcohol Use: No Hx Substance Use: No Preferred Language: Icelandic Communication Ability: Impaired Visual Impairment: No Limitations Hearing Ability: Normal Aws Consultant Required: No Beliefs That Will Affect Care: None marital status: Current Living Situation: Spouse and Other Current Living Situation Comment: [place] current occupational status: retired Feels Safe at Home: Yes Safety Concerns: Feels Safe At This Time Assistive Devices: Walker Review of Systems Review of Systems: As per HPI, all 10 systems reviewed, all other ROS negative Physical Exam Physical Exam: GENERAL: Slightly anxious, obese, laconic, no respiratory distress SKIN: Pallor, warm HEENT: Pale palpebral conjunctivae, no ptosis, dry buccal mucosa NECK : Supple, short neck, no tenderness CHEST : CTA, no tenderness HEART : RRR, no obvious murmurs ABDOMEN: Some distention, nontender EXTREMITIES : Minimal LE swelling, no LE tenderness, no other conspicuous deformities noted NEUROLOGIC : Coherent, no facial asymmetry, slightly hard of hearing, gait and stance not assessed Results & Data Results & Data ([facility]) Vital Signs (Past 12 Hours) Vital Signs Temp Pulse Pulse Resp BP BP Pulse Ox 01/24/21 18:08 88 88 20 141/84 H 98 01/24/21 16:09 100 01/24/21 16:01 36.8 C 92 H 18 141/84 H 100 Laboratory Results Laboratory Results WBC 5.67 K/uL (4.8-10.8) 01/24/21 17:10 RBC 2.53 M/uL (4.2-5.4) L 01/24/21 17:10 Hgb 8.8 g/dL (12.0-16.0) L 01/24/21 17:10 Hct 26.8 % (37-47) L 01/24/21 17:10 MCV 105.9 fL (80-100) H 01/24/21 17:10 MCH 34.8 pg (25-34) H 01/24/21 17:10 MCHC 32.8 g/dL (32-36) 01/24/21 17:10 RDW Std Deviation 63.6 fL (36.4-46.3) H 01/24/21 17:10 RDW Coeff of Vijay 16.6 % (11.5-14.5) H 01/24/21 17:10 Plt Count 283 K/uL (130-400) 01/24/21 17:10 MPV 9.3 fL (7.4-10.4) 01/24/21 17:10 Immature Gran % (Auto) 0.0 % 01/24/21 17:10 Neut % (Auto) 82.7 % 01/24/21 17:10 Lymph % (Auto) 12.9 % 01/24/21 17:10 Coffee % (Auto) 2.8 % 01/24/21 17:10 Eos % (Auto) 1.2 % 01/24/21 17:10 Baso % (Auto) 0.4 % 01/24/21 17:10 Neut # (Auto) 4.69 K/uL (1.4-6.5) 01/24/21 17:10 Lymph # (Auto) 0.73 K/uL (1.2-3.4) L 01/24/21 17:10 Coffee # (Auto) 0.16 K/uL (0.11-0.59) 01/24/21 17:10 Eos # (Auto) 0.07 K/uL (0-0.5) 01/24/21 17:10 Baso # (Auto) 0.02 K/uL (0-0.2) 01/24/21 17:10 Immature Gran # (Auto) 0.00 K/uL (0.00-0.02) 01/24/21 17:10 PT 11.3 Seconds (9.0-12.0) 01/24/21 17:10 INR 1.1 (0.9-1.1) 01/24/21 17:10 VBG pH 7.38 (7.36-7.41) 01/24/21 16:48 VBG pCO2 44 mmHg (38-50) 01/24/21 16:48 VBG pO2 41 mmHg 01/24/21 16:48 VBG HCO3 25 mmol/L 01/24/21 16:48 VBG O2 Saturation 78.1 % 01/24/21 16:48 VBG Base Excess -0.3 mEq/L 01/24/21 16:48 Barometric Pressure 733.2 mm/Hg 01/24/21 16:48 Sodium 140 mmol/L (136-145) 01/24/21 17:10 Potassium 4.0 mmol/L (3.5-5.1) 01/24/21 17:10 Chloride 109 mmol/L (98-107) H 01/24/21 17:10 Carbon Dioxide 25 mmol/L (21-32) 01/24/21 17:10 Anion Gap 6.0 (3-11) 01/24/21 17:10 BUN 17 mg/dl (7-18) 01/24/21 17:10 Creatinine 1.02 mg/dl (0.6-1.2) 01/24/21 17:10 Est Cr Clr Drug Dosing 51.2 ml/min 01/24/21 17:10 Est GFR ( Amer) 61.0 ml/min 01/24/21 17:10 Est GFR (Non-Af Amer) 52.6 ml/min 01/24/21 17:10 BUN/Creatinine Ratio 16.2 (10-20) 01/24/21 17:10 Glucose 84 mg/dl (70-99) 01/24/21 17:10 Calcium 8.6 mg/dl (8.5-10.1) 01/24/21 17:10 Magnesium 1.7 mg/dl (1.8-2.4) L 01/24/21 17:10 Total Bilirubin 1.5 mg/dl (0.2-1) H 01/24/21 17:10 AST 26 U/L (15-37) 01/24/21 17:10 ALT 12 U/L (12-78) 01/24/21 17:10 Alkaline Phosphatase 84 U/L (45-117) 01/24/21 17:10 Troponin I < 0.015 ng/ml (0-0.045) 01/24/21 17:10 Total Protein 6.5 gm/dl (6.4-8.2) 01/24/21 17:10 Albumin 2.5 gm/dl (3.4-5.0) L 01/24/21 17:10 Globulin 4.0 gm/dl (2.5-4.0) 01/24/21 17:10 Albumin/Globulin Ratio 0.6 (0.9-2) L 01/24/21 17:10 TSH 0.451 uIu/ml (0.300-4.500) 01/24/21 17:10 COVID-19 Eval Order Covid19 at [facility] 01/24/21 18:24 SARS-CoV-2 (PCR) NEGATIVE (Negative) 01/24/21 18:24 Impressions Chest X-Ray 01/24/21 16:40 XR chest 1V portable HISTORY: weakness COMPARISON: Chest 01/06/2021. FINDINGS: No pneumothorax. The cardiac silhouette remains mildly enlarged. A few bibasilar linear densities favor subsegmental atelectasis. This is similar to the prior study. No new focal lung consolidations to suggest pneumonia. No evidence for pulmonary edema. There is chronic elevation of the right hemidiaphragm. Advanced degenerative changes again noted within the shoulders. IMPRESSION: No significant change compared to the prior study. No acute process. ACT 112: Negative or not required by law. Electronically signed by: Clyde Jensen M.D. 01/24/2021 6:[address] 01/24/21 16:[address] DOSE: 786.26 mGy.cm HISTORY: weakness, dizzy TECHNIQUE: Multiaxial CT images of the head were performed without the use of intravenous contrast. Automated exposure control was utilized for this study. A dose lowering technique was utilized adhering to the principles of ALARA. Comparison: Head CT 01/06/2021. Findings: The paranasal sinuses and mastoid air cells are clear. The calvarium and skull base are intact. There is no mass, hematoma, midline shift, acute infarct. White matter hypodensity is nonspecific but suggestive of microvascular ischemic change. The ventricles and sulci demonstrate mild age-related involutional changes. Impression: No acute intracranial abnormality. Atrophy and microvascular ischemic changes. ACT 112: Negative or not required by law. Electronically signed by: Clyde Jensen M.D. 01/24/2021 6:57 PM Diagnostic Findings EKG as per my interpretation: Rate 90, NSR, LBBB
[2021-01-24] MEDS ORDERED: PROMETHAZINE HCL 12.5 MG in SODIUM CHLORIDE 0.9% 50 ML IV PRN (22:04)
[2021-01-24] MEDS ORDERED: oxyCODONE HCL IR 5 MG TAB (IMMEDIATE RELEASE) PO PRN (22:04)
[2021-01-24] MEDS ORDERED: XOPENEX/ATROVENT 1.25mg/0.5MG NEB COMBO NEB PRN (22:04)
[2021-01-24] MEDS ORDERED: LACTATED RINGER'S 1,000 ML IV ONE (22:10)
[2021-01-24] MEDS ORDERED: LEVALBUTEROL 1.25MG/0.5ML NEB INH PRN (23:00)
[2021-01-24] MEDS ORDERED: IPRATROPIUM BROMIDE NEB SOLN 0.02% 2.5 ML VIAL INH PRN (23:00)
[2021-01-24] MEDS: carvediloL 12.5 MG TAB PO SCH (23:23)
[2021-01-25] MEDS: cefTRIAXone SODIUM 2,000 MG in DEXTROSE 5% 50 ML IV SCH (00:28)
[2021-01-25 01:30] LABS: Appearance Urine Turbid (Clear); Bacteria Urine Automated 4+ (Negative); Bilirubin Urine Negative (Negative); Blood Urine Trace (Negative); Color Urine Dark Yellow; Epithelial Cell Urine Auto >30 /lpf (0-5); Glucose Urine UA Negative (Negative); Ketones Urine 1+ (Negative); Leukocyte Esterase Urine 2+ (Negative); Nitrite Urine Positive (Negative); Protein Urine 1+ (Negative); RBC Urine Automated 0-4 /hpf (0-4); Specific Gravity Urine 1.019 (1.000-1.030); Urobilinogen Urine Negative (Negative); WBC Urine Automated >30 /hpf (0-5); pH Urine 5.5 (4.5-7.5)
[2021-01-25] MEDS: LEVOTHYROXINE SODIUM 50 MCG TABLET PO SCH (05:58)
[2021-01-25 06:26] LABS: Basophils # (auto) 0.01 K/uL (0-0.2); Basophils % (auto) 0.2 %; Hematocrit (blood only) 24.9 % (37-47); Hemoglobin 8.3 g/dL (12.0-16.0); Immature Granulocytes # (auto) 0.01 K/uL (0.00-0.02); Immature Granulocytes % (auto) 0.2 %; Lymphocytes # (auto) 0.64 K/uL (1.2-3.4); Lymphocytes % (auto) 11.8 %; Mean Corpuscular Hemoglobin 34.3 pg (25-34); Mean Corpuscular Hgb Conc 33.3 g/dL (32-36); Mean Corpuscular Volume 102.9 fL (80-100); Mean Platelet Volume 9.2 fL (7.4-10.4); Monocytes # (auto) 0.09 K/uL (0.11-0.59); Monocytes % (auto) 1.7 %; Neutrophils # (auto) 4.66 K/uL (1.4-6.5); Neutrophils % (auto) 86.1 %; Platelet Count 261 K/uL (130-400); RDW Coefficient of Variation 16.5 % (11.5-14.5); RDW Standard Deviation 61.3 fL (36.4-46.3); Red Blood Count 2.42 M/uL (4.2-5.4); White Blood Count 5.41 K/uL (4.8-10.8)
[2021-01-25 06:55] LABS: Calcium 8.3 mg/dl (8.5-10.1); Creatinine Clr Calc Pharmacy 62.2 ml/min; Est GFR (African American) 77.2 ml/min; Est GFR (Non-African American) 66.6 ml/min; Magnesium 2.1 mg/dl (1.8-2.4); Potassium 4.2 mmol/L (3.5-5.1)
[2021-01-25] MEDS: lisinopril 5 MG TAB PO SCH (09:18)
[2021-01-25] MEDS: PANTOprazole 40 MG TAB PO SCH (09:18)
[2021-01-25] MEDS: GABAPENTIN 100 MG CAP PO SCH ×2 (09:18→22:37)
[2021-01-25] MEDS: FLUTICASONE/VILANTEROL 100/25MCG 14 PUFFS/INHALER INH SCH (09:18)
[2021-01-25] MEDS: carvediloL 12.5 MG TAB PO SCH ×2 (09:18→22:37)
[2021-01-25] MEDS: ATORVASTATIN 20 MG TAB PO SCH (09:18)
--- NOTE | 2021-01-25 14:48 | Hospitalist Progress Note ---
Date of Service January 25, 2021 Assessment & Plan (1) Weakness: Multifactorial : Complicated UTI, no sepsis Deconditioning, patient refused SNF placement during last confinement. Home narcotics/neuropsychotropic meds contributory to episodic sleepiness at home. Remains generally weak and lethargic but no other distress Urine culture is pending We will get PT and OT evaluation PAF/PE/DVT, px NSR, Off anticoagulation given recent iliopsoas hematoma Heart rate remains controlled hx CAD as per records No acute cardiac symptoms Hypertension, slightly elevated Will monitor in the hospital and continue current medications Hyperlipidemia on statin Rx Hypothyroidism. Euthyroid as of today's TSH Chronic anemia, hemoglobin at baseline Chronic pain Use of narcotics may have contributed her weakness and subsequent fall Hold parameters for narcotics/neuropsychotropic meds for sedation confusion. We will decrease the pain medications on discharge DVT prophylaxis. SCDs Re: Recent retroperitoneal hemorrhage DNR Patient requesting updates for providers. Mr. Bennie Silva, contact #[phone]. Admission and Anticipated Discharge Date Admission Date: January 25, 2021 Subjective 01/25/2021 The patient was seen and examined in medical floor She has significant past medical history as mentioned in the H&P has been compl aining of progressive weakness over the last 3 days She slid to the floor from a chair without any significant trauma and/or loss of consciousness She was noted to have UTI which may be contributing her overall weakness Denies any other symptoms as of this morning Review of Systems Review of Systems: All systems reviewed and are unremarkable except as noted below Neurologic: + generalized weakness Physical Exam Physical Exam: Lying in bed comfortably Constitutional: well developed, well nourished, + ill appearing and + obese Eyes: PERRL, conjunctivae normal, anicteric sclerae ENMT: external ear and nose normal, oropharynx normal Neck: trachea midline, no thyromegaly Respiratory: no respiratory distress Auscultation: lungs clear to auscultation bilaterally and + diminished lung sounds Cardiovascular: Rate/Rhythm: regular rate and regular rhythm Heart Sounds: no murmur Extremities: + edema (Trace edema bilaterally) Gastrointestinal (Abdomen): Inspection/Auscultation: normal bowel sounds; abdomen not distended Percussion/Palpation: abdomen soft; abdomen nontender Musculoskeletal: No acute arthritis in any joint Neurologic: Alert, awake and oriented x3. He has generalized weakness but no focal neuro deficit Lymphatic: no cervical or axillary lymphadenopathy Results & Data Results & Data ([facility]) Vital Signs (Past 12 Hours) Vital Signs Temp Pulse Resp BP Pulse Ox 01/25/21 07:27 36.8 C 90 18 155/78 H 100 Laboratory Results Short CBC 01/24/21 01/25/21 Range/Units 17:10 06:09 WBC 5.67 5.41 (4.8-10.8) K/uL Hgb 8.8 L 8.3 L (12.0-16.0) g/dL Hct 26.8 L 24.9 L (37-47) % Plt Count 283 261 (130-400) K/uL BMP 01/24/21 01/25/21 17:10 06:09 Sodium 140 140 Potassium 4.0 4.2 Chloride 109 H 110 H Carbon Dioxide 25 24 BUN 17 18 Creatinine 1.02 0.84 Glucose 84 92 Calcium 8.6 8.3 L Cardiac Enzymes 01/24/21 Range/Units 17:10 Troponin I < 0.015 (0-0.045) ng/ml Liver Function 01/24/21 Range/Units 17:10 Total Bilirubin 1.5 H (0.2-1) mg/dl AST 26 (15-37) U/L ALT 12 (12-78) U/L Alkaline Phosphatase 84 (45-117) U/L Albumin 2.5 L (3.4-5.0) gm/dl Urine 01/25/21 Range/Units 01:19 Urine Color Dark Yellow Urine Appearance Turbid A (Clear) Urine pH 5.5 (4.5-7.5) Ur Specific [place] 1.019 (1.000-1.030) Urine Protein 1+ H (Negative) Urine Glucose (UA) Negative (Negative) Medications Administered Current Inpatient Medications Acetaminophen (Acetaminophen 325 Mg Tab) 650 mg PO Q4H PRN PRN Reason: pain/fever Stop: 02/23/21 22:03 Amitriptyline HCl (Amitriptyline Hcl 25 Mg Tab) 25 mg PO HS [facility] Stop: 02/24/21 20:59 Atorvastatin Calcium (Atorvastatin 20 Mg Tab) 20 mg PO DAILY [facility] Stop: 02/24/21 08:59 Last Admin: 01/25/21 09:18 Dose: 20 mg Documented by: Carvedilol (Carvedilol 12.5 Mg Tab) 12.5 mg PO BID [facility] Stop: 02/23/21 22:59 Last Admin: 01/25/21 09:18 Dose: 12.5 mg Documented by: Duloxetine HCl (Duloxetine Hcl 30 Mg Cap) 30 mg PO HS [facility] Stop: 02/24/21 20:59 Fluticasone/Vilanterol (Fluticasone/Vilanterol 100/25mcg 14 Puffs/Inhaler) 1 puffs INH DAILY [facility]; Protocol Stop: 02/24/21 08:59 Last Admin: 01/25/21 09:18 Dose: 1 puffs Documented by: Gabapentin (Gabapentin 100 Mg Cap) 100 mg PO BID [facility] Stop: 02/24/21 08:59 Last Admin: 01/25/21 09:18 Dose: 100 mg Documented by: Lactated Ringer's (Lr) 1,000 mls @ 50 mls/hr IV .Q20H ONE Stop: 01/25/21 18:09 Last Admin: 01/24/21 23:24 Dose: 50 mls/hr Documented by: Promethazine HCl 12.5 mg/ (Sodium Chloride) 50.5 mls @ 202 mls/hr IV Q6H PRN PRN Reason: Nausea And Vomiting Stop: 02/23/21 22:03 Ceftriaxone Sodium 2,000 mg/ (Dextrose) 70 mls @ 140 mls/hr IV Q24H [facility]; Protocol Stop: 02/04/21 00:14 Last Infusion: 01/25/21 00:58 Dose: Infused Documented by: Ipratropium [place] (Ipratropium [place] Neb Soln 0.02% 2.5 Ml Vial) 0.5 mg INH Q4R PRN PRN Reason: Shortness Of Breath Or Wheezing Stop: 02/23/21 22:59 Last Admin: 01/25/21 01:01 Dose: 0.5 mg Documented by: Levalbuterol HCl (Levalbuterol 1.25mg/0.5ml Neb) 1.25 mg INH Q4R PRN PRN Reason: Shortness Of Breath Or Wheezing Stop: 02/23/21 22:59 Last Admin: 01/25/21 01:01 Dose: 1.25 mg Documented by: Levothyroxine Sodium (Levothyroxine Sodium 50 Mcg Tablet) 50 mcg PO DAILYBB [facility] Stop: 02/24/21 06:29 Last Admin: 01/25/21 05:58 Dose: 50 mcg Documented by: Lisinopril (Lisinopril 5 Mg Tab) 5 mg PO QAM [facility] Stop: 02/24/21 08:59 Last Admin: 01/25/21 09:18 Dose: 5 mg Documented by: Montelukast Sodium (Montelukast Sodium 10 Mg Tablet) 10 mg PO HS [facility] Stop: 02/24/21 20:59 Oxycodone HCl (Oxycodone Hcl Ir 5 Mg Tab (Immediate Release)) 5 mg PO QID PRN PRN Reason: Pain Stop: 02/07/21 22:03 Pantoprazole Sodium (Pantoprazole 40 Mg Tab) 40 mg PO DAILY [facility] Stop: 02/24/21 08:59 Last Admin: 01/25/21 09:18 Dose: 40 mg Documented by:
[2021-01-25] MEDS: ACETAMINOPHEN 325 MG TAB PO PRN (17:06)
[2021-01-25] MEDS: oxyCODONE HCL IR 5 MG TAB (IMMEDIATE RELEASE) PO PRN (20:04)
[2021-01-25] MEDS: AMITRIPTYLINE HCL 25 MG TAB PO SCH (22:37)
[2021-01-25] MEDS: DULoxetine HCL 30 MG CAP PO SCH (22:37)
[2021-01-25] MEDS: MONTELUKAST SODIUM 10 MG TABLET PO SCH (22:37)
[2021-01-26] MEDS: cefTRIAXone SODIUM 2,000 MG in DEXTROSE 5% 50 ML IV SCH (00:39)
[2021-01-26] MEDS: LEVOTHYROXINE SODIUM 50 MCG TABLET PO SCH (05:50)
[2021-01-26] MEDS: oxyCODONE HCL IR 5 MG TAB (IMMEDIATE RELEASE) PO PRN ×2 (06:06→12:36)
[2021-01-26] MEDS: GABAPENTIN 100 MG CAP PO SCH ×2 (09:28→20:50)
[2021-01-26] MEDS: PANTOprazole 40 MG TAB PO SCH (09:29)
[2021-01-26] MEDS: carvediloL 12.5 MG TAB PO SCH ×2 (09:29→20:51)
[2021-01-26] MEDS: FLUTICASONE/VILANTEROL 100/25MCG 14 PUFFS/INHALER INH SCH (09:29)
[2021-01-26] MEDS: lisinopril 5 MG TAB PO SCH (09:29)
[2021-01-26] MEDS: ATORVASTATIN 20 MG TAB PO SCH (09:30)
--- NOTE | 2021-01-26 15:52 | Hospitalist Progress Note ---
Date of Service January 26, 2021 Assessment & Plan (1) Weakness: Multifactorial : Complicated UTI, no sepsis Deconditioning, patient refused SNF placement during last confinement. Home narcotics/neuropsychotropic meds contributory to episodic sleepiness at home. Remains generally weak and lethargic but no other distress Urine culture is pending We will get PT and OT evaluation Awaiting transfer to facility Complicated UTI Urine culture is developing gram-negative bacilli-sensitivities pending We will continue current antibiotic for now PAF/PE/DVT, px NSR, Off anticoagulation given recent iliopsoas hematoma Heart rate remains controlled hx CAD as per records No acute cardiac symptoms Hypertension, slightly elevated Will monitor in the hospital and continue current medications Hyperlipidemia on statin Rx Hypothyroidism. Euthyroid as of today's TSH Chronic anemia, hemoglobin at baseline Chronic pain Use of narcotics may have contributed her weakness and subsequent fall Hold parameters for narcotics/neuropsychotropic meds for sedation confusion. We will decrease the pain medications on discharge DVT prophylaxis. SCDs Re: Recent retroperitoneal hemorrhage DNR Patient requesting updates for providers. Mr. Bennie Silva, contact #[phone]. Will be transferred to skilled care facility on approval Admission and Anticipated Discharge Date Admission Date: January 25, 2021 Subjective 01/25/2021 The patient was seen and examined in medical floor She has significant past medical history as mentioned in the H&P has been complaining of progressive weakness over the last 3 days She slid to the floor from a chair without any significant trauma and/or loss of consciousness She was noted to have UTI which may be contributing her overall weakness Denies any other symptoms as of this morning 01/26/2021 The patient was seen and examined in medical floor She is out of bed on a chair and has been feeling a lot better Denies any fever and/or chills and no urinary symptoms She has been waiting to be accepted to a facility for rehab Review of Systems Review of Systems: All systems reviewed and are unremarkable except as noted below Neurologic: + generalized weakness Physical Exam Physical Exam: Sitting on a chair without any acute distress Constitutional: well developed, well nourished and + obese; not ill appearing Eyes: PERRL, conjunctivae normal, anicteric sclerae ENMT: external ear and nose normal, oropharynx normal Neck: trachea midline, no thyromegaly Respiratory: no respiratory distress Auscultation: lungs clear to auscultation bilaterally and + diminished lung sounds Cardiovascular: Rate/Rhythm: regular rate and regular rhythm Heart Sounds: no murmur Extremities: + edema (Trace edema bilaterally) Gastrointestinal (Abdomen): Inspection/Auscultation: normal bowel sounds; abdomen not distended Percussion/Palpation: abdomen soft; abdomen nontender Musculoskeletal: No acute arthritis in any joint Neurologic: Alert, awake and oriented x3. Generally weak Lymphatic: no cervical or axillary lymphadenopathy Results & Data Results & Data ([facility]) Vital Signs (Past 12 Hours) Vital Signs Temp Pulse Resp BP Pulse Ox 01/26/21 09:26 92 H 129/70 01/26/21 07:22 36.7 C 80 16 146/66 H 96 Medications Administered Current Inpatient Medications Acetaminophen (Acetaminophen 325 Mg Tab) 650 mg PO Q4H PRN PRN Reason: pain/fever Stop: 02/23/21 22:03 Last Admin: 01/25/21 17:06 Dose: 650 mg Documented by: Amitriptyline HCl (Amitriptyline Hcl 25 Mg Tab) 25 mg PO [facility] Stop: 02/24/21 20:59 Last Admin: 01/25/21 22:37 Dose: 25 mg Documented by: Atorvastatin Calcium (Atorvastatin 20 Mg Tab) 20 mg PO DAILY [facility] Stop: 02/24/21 08:59 Last Admin: 01/26/21 09:30 Dose: 20 mg Documented by: Carvedilol (Carvedilol 12.5 Mg Tab) 12.5 mg PO BID [facility] Stop: 02/23/21 22:59 Last Admin: 01/26/21 09:29 Dose: 12.5 mg Documented by: Duloxetine HCl (Duloxetine Hcl 30 Mg Cap) 30 mg PO [facility] Stop: 02/24/21 20:59 Last Admin: 01/25/21 22:37 Dose: 30 mg Documented by: Fluticasone/Vilanterol (Fluticasone/Vilanterol 100/25mcg 14 Puffs/Inhaler) 1 puffs INH DAILY [facility]; Protocol Stop: 02/24/21 08:59 Last Admin: 01/26/21 09:29 Dose: 1 puffs Documented by: Gabapentin (Gabapentin 100 Mg Cap) 100 mg PO BID [facility] Stop: 02/24/21 08:59 Last Admin: 01/26/21 09:28 Dose: 100 mg Documented by: Promethazine HCl 12.5 mg/ (Sodium Chloride) 50.5 mls @ 202 mls/hr IV Q6H PRN PRN Reason: Nausea And Vomiting Stop: 02/23/21 22:03 Ceftriaxone Sodium 2,000 mg/ (Dextrose) 70 mls @ 140 mls/hr IV Q24H [facility]; Protocol Stop: 02/04/21 00:14 Last Infusion: 01/26/21 01:15 Dose: Infused Documented by: Ipratropium [place] (Ipratropium [place] Neb Soln 0.02% 2.5 Ml Vial) 0.5 mg INH Q4R PRN PRN Reason: Shortness Of Breath Or Wheezing Stop: 02/23/21 22:59 Last Admin: 01/25/21 01:01 Dose: 0.5 mg Documented by: Levalbuterol HCl (Levalbuterol 1.25mg/0.5ml Neb) 1.25 mg INH Q4R PRN PRN Reason: Shortness Of Breath Or Wheezing Stop: 02/23/21 22:59 Last Admin: 01/25/21 01:01 Dose: 1.25 mg Documented by: Levothyroxine Sodium (Levothyroxine Sodium 50 Mcg Tablet) 50 mcg PO DAILYBB [facility] Stop: 02/24/21 06:29 Last Admin: 01/26/21 05:50 Dose: 50 mcg Documented by: Lisinopril (Lisinopril 5 Mg Tab) 5 mg PO QAM [facility] Stop: 02/24/21 08:59 Last Admin: 01/26/21 09:29 Dose: 5 mg Documented by: Montelukast Sodium (Montelukast Sodium 10 Mg Tablet) 10 mg PO HS [facility] Stop: 02/24/21 20:59 Last Admin: 01/25/21 22:37 Dose: 10 mg Documented by: Oxycodone HCl (Oxycodone Hcl Ir 5 Mg Tab (Immediate Release)) 5 mg PO QID PRN PRN Reason: Pain Stop: 02/07/21 22:03 Last Admin: 01/26/21 12:36 Dose: 5 mg Documented by: Pantoprazole Sodium (Pantoprazole 40 Mg Tab) 40 mg PO DAILY [facility] Stop: 02/24/21 08:59 Last Admin: 01/26/21 09:29 Dose: 40 mg Documented by:
[2021-01-26] MEDS: MONTELUKAST SODIUM 10 MG TABLET PO SCH (20:50)
[2021-01-26] MEDS: DULoxetine HCL 30 MG CAP PO SCH (20:51)
[2021-01-26] MEDS: AMITRIPTYLINE HCL 25 MG TAB PO SCH (20:51)
[2021-01-27] MEDS: cefTRIAXone SODIUM 2,000 MG in DEXTROSE 5% 50 ML IV SCH (00:07)
--- NOTE | 2021-01-27 05:26 | Electrocardiogram Report ---
Test Reason : Blood Pressure : / mmHG Vent. Rate : 092 BPM Atrial Rate : 092 BPM P-R Int : 194 ms QRS Dur : 116 ms QT Int : 402 ms P-R-T Axes : 070 009 096 degrees QTc Int : 497 ms Normal sinus rhythm Incomplete left bundle block Abnormal ECG When compared with ECG of 06-JAN-2021 05:51, QRS duration has decreased T wave inversion no longer evident in Inferior leads Nonspecific T wave abnormality has replaced inverted T waves in Lateral leads Confirmed by Сергей Harmon ([id number]) on 01/27/2021 5:26:07 AM Referred By: REFERRED SELF Confirmed By:Сергей Harmon
[2021-01-27] MEDS: LEVOTHYROXINE SODIUM 50 MCG TABLET PO SCH (06:31)
[2021-01-27] MEDS: ACETAMINOPHEN 325 MG TAB PO PRN ×2 (06:41→16:01)
[2021-01-27 07:45] LABS: BUN Creatinine Ratio 17.7 (10-20); Calcium 8.2 mg/dl (8.5-10.1); Creatinine Clr Calc Pharmacy 49.8 ml/min; Est GFR (African American) 58.9 ml/min; Est GFR (Non-African American) 50.8 ml/min; Potassium 4.4 mmol/L (3.5-5.1)
[2021-01-27 08:03] LABS: Basophils # (auto) 0.03 K/uL (0-0.2); Basophils % (auto) 0.5 %; Eosinophils # (auto) 0.02 K/uL (0-0.5); Eosinophils % (auto) 0.3 %; Hematocrit (blood only) 26.2 % (37-47); Hemoglobin 8.7 g/dL (12.0-16.0); Immature Granulocytes # (auto) 0.04 K/uL (0.00-0.02); Immature Granulocytes % (auto) 0.6 %; Lymphocytes # (auto) 0.95 K/uL (1.2-3.4); Lymphocytes % (auto) 15.3 %; Mean Corpuscular Hemoglobin 34.1 pg (25-34); Mean Corpuscular Hgb Conc 33.2 g/dL (32-36); Mean Corpuscular Volume 102.7 fL (80-100); Mean Platelet Volume 9.6 fL (7.4-10.4); Monocytes # (auto) 0.28 K/uL (0.11-0.59); Monocytes % (auto) 4.5 %; Neutrophils % (auto) 78.8 %; Platelet Count 326 K/uL (130-400); RDW Coefficient of Variation 17.2 % (11.5-14.5); RDW Standard Deviation 64.6 fL (36.4-46.3); Red Blood Count 2.55 M/uL (4.2-5.4); White Blood Count 6.22 K/uL (4.8-10.8)
[2021-01-27] MEDS: ATORVASTATIN 20 MG TAB PO SCH (09:20)
[2021-01-27] MEDS: lisinopril 5 MG TAB PO SCH (09:20)
[2021-01-27] MEDS: PANTOprazole 40 MG TAB PO SCH (09:20)
[2021-01-27] MEDS: GABAPENTIN 100 MG CAP PO SCH ×2 (09:20→21:10)
[2021-01-27] MEDS: carvediloL 12.5 MG TAB PO SCH ×2 (09:20→21:09)
[2021-01-27] MEDS: FLUTICASONE/VILANTEROL 100/25MCG 14 PUFFS/INHALER INH SCH (09:20)
--- NOTE | 2021-01-27 15:44 | Hospitalist Progress Note ---
Date of Service January 27, 2021 Assessment & Plan (1) Weakness: Multifactorial : Complicated UTI, no sepsis Deconditioning, patient refused SNF placement during last confinement. Home narcotics/neuropsychotropic meds contributory to episodic sleepiness at home. Remains generally weak and lethargic but no other distress Urine culture -E. coli and is pansensitive We will get PT and OT evaluation Awaiting transfer to facility Clinically a lot better and awaiting to be transferred to a facility Complicated UTI Urine culture is developing gram-negative bacilli-sensitivities pending We will continue current antibiotic for now Urine culture is growing E. coli and is pansensitive PAF/PE/DVT, px NSR, Off anticoagulation given recent iliopsoas hematoma Heart rate remains controlled hx CAD as per records No acute cardiac symptoms Hypertension, slightly elevated Will monitor in the hospital and continue current medications Hyperlipidemia on statin Rx Hypothyroidism. Euthyroid as of today's TSH Chronic anemia, hemoglobin at baseline Chronic pain Use of narcotics may have contributed her weakness and subsequent fall Hold parameters for narcotics/neuropsychotropic meds for sedation confusion. We will decrease the pain medications on discharge DVT prophylaxis. SCDs Re: Recent retroperitoneal hemorrhage DNR Patient requesting updates for providers. Mr. Bennie Silva, contact #[phone]. Will be discharged when approved for a bed in a facility Admission and Anticipated Discharge Date Admission Date: January 25, 2021 Subjective 01/25/2021 The patient was seen and examined in medical floor She has significant past medical history as mentioned in the H&P has been complaining of progressive weakness over the last 3 days She slid to the floor from a chair without any significant trauma and/or loss of consciousness She was noted to have UTI which may be contributing her overall weakness Denies any other symptoms as of this morning 01/26/2021 The patient was seen and examined in medical floor She is out of bed on a chair and has been feeling a lot better Denies any fever and/or chills and no urinary symptoms She has been waiting to be accepted to a facility for rehab 01/27/2021 The patient was seen and examined in medical floor She remains stable without any acute symptoms She has been waiting to go to rehab Review of Systems Review of Systems: All systems reviewed and are unremarkable except as noted b elow Neurologic: + generalized weakness Physical Exam Physical Exam: Sitting on a chair without any acute distress Constitutional: well developed, well nourished and + obese; not ill appearing Eyes: PERRL, conjunctivae normal, anicteric sclerae ENMT: external ear and nose normal, oropharynx normal Neck: trachea midline, no thyromegaly Respiratory: no respiratory distress Auscultation: lungs clear to auscultation bilaterally and + diminished lung sounds Cardiovascular: Rate/Rhythm: regular rate and regular rhythm Heart Sounds: no murmur Extremities: + edema (Trace edema bilaterally) Gastrointestinal (Abdomen): Inspection/Auscultation: normal bowel sounds; abdomen not distended Percussion/Palpation: abdomen soft; abdomen nontender Lymphatic: no cervical or axillary lymphadenopathy Results & Data Results & Data ([facility]) Vital Signs (Past 12 Hours) Vital Signs Temp Pulse Resp BP Pulse Ox 01/27/21 15:03 36.6 C 77 16 168/82 H 98 01/27/21 07:07 36.7 C 79 16 170/79 H 95 Laboratory Results Short CBC 01/27/21 01/27/21 Range/Units 06:54 06:54 WBC Cancelled 6.22 Hgb Cancelled 8.7 L Hct Cancelled 26.2 L Plt Count Cancelled 326 BMP 01/27/21 06:54 Sodium 139 Potassium 4.4 Chloride 107 Carbon Dioxide 26 BUN 19 H Creatinine 1.05 Glucose 93 Calcium 8.2 L Medications Administered Current Inpatient Medications Acetaminophen (Acetaminophen 325 Mg Tab) 650 mg PO Q4H PRN PRN Reason: pain/fever Stop: 02/23/21 22:03 Last Admin: 01/27/21 06:41 Dose: 650 mg Documented by: Amitriptyline HCl (Amitriptyline Hcl 25 Mg Tab) 25 mg PO HS [facility] Stop: 02/24/21 20:59 Last Admin: 01/26/21 20:51 Dose: 25 mg Documented by: Atorvastatin Calcium (Atorvastatin 20 Mg Tab) 20 mg PO DAILY [facility] Stop: 02/24/21 08:59 Last Admin: 01/27/21 09:20 Dose: 20 mg Documented by: Carvedilol (Carvedilol 12.5 Mg Tab) 12.5 mg PO BID [facility] Stop: 02/23/21 22:59 Last Admin: 01/27/21 09:20 Dose: 12.5 mg Documented by: Duloxetine HCl (Duloxetine Hcl 30 Mg Cap) 30 mg PO HS [facility] Stop: 02/24/21 20:59 Last Admin: 01/26/21 20:51 Dose: 30 mg Documented by: Fluticasone/Vilanterol (Fluticasone/Vilanterol 100/25mcg 14 Puffs/Inhaler) 1 puffs INH DAILY [facility]; Protocol Stop: 02/24/21 08:59 Last Admin: 01/27/21 09:20 Dose: 1 puffs Documented by: Gabapentin (Gabapentin 100 Mg Cap) 100 mg PO BID [facility] Stop: 02/24/21 08:59 Last Admin: 01/27/21 09:20 Dose: 100 mg Documented by: Promethazine HCl 12.5 mg/ (Sodium Chloride) 50.5 mls @ 202 mls/hr IV Q6H PRN PRN Reason: Nausea And Vomiting Stop: 02/23/21 22:03 Ceftriaxone Sodium 2,000 mg/ (Dextrose) 70 mls @ 140 mls/hr IV Q24H [facility]; Protocol Stop: 02/04/21 00:14 Last Infusion: 01/27/21 00:40 Dose: Infused Documented by: Ipratropium [place] (Ipratropium [place] Neb Soln 0.02% 2.5 Ml Vial) 0.5 mg INH Q4R PRN PRN Reason: Shortness Of Breath Or Wheezing Stop: 02/23/21 22:59 Last Admin: 01/25/21 01:01 Dose: 0.5 mg Documented by: Levalbuterol HCl (Levalbuterol 1.25mg/0.5ml Neb) 1.25 mg INH Q4R PRN PRN Reason: Shortness Of Breath Or Wheezing Stop: 02/23/21 22:59 Last Admin: 01/25/21 01:01 Dose: 1.25 mg Documented by: Levothyroxine Sodium (Levothyroxine Sodium 50 Mcg Tablet) 50 mcg PO DAILYBB [facility] Stop: 02/24/21 06:29 Last Admin: 01/27/21 06:31 Dose: 50 mcg Documented by: Lisinopril (Lisinopril 5 Mg Tab) 5 mg PO QAM [facility] Stop: 02/24/21 08:59 Last Admin: 01/27/21 09:20 Dose: 5 mg Documented by: Montelukast Sodium (Montelukast Sodium 10 Mg Tablet) 10 mg PO HS [facility] Stop: 02/24/21 20:59 Last Admin: 01/26/21 20:50 Dose: 10 mg Documented by: Oxycodone HCl (Oxycodone Hcl Ir 5 Mg Tab (Immediate Release)) 5 mg PO QID PRN PRN Reason: Pain Stop: 02/07/21 22:03 Last Admin: 01/26/21 12:36 Dose: 5 mg Documented by: Pantoprazole Sodium (Pantoprazole 40 Mg Tab) 40 mg PO DAILY [facility] Stop: 02/24/21 08:59 Last Admin: 01/27/21 09:20 Dose: 40 mg Documented by:
[2021-01-27] MEDS: AMITRIPTYLINE HCL 25 MG TAB PO SCH (21:09)
[2021-01-27] MEDS: DULoxetine HCL 30 MG CAP PO SCH (21:10)
[2021-01-27] MEDS: MONTELUKAST SODIUM 10 MG TABLET PO SCH (21:11)
[2021-01-28] MEDS: cefTRIAXone SODIUM 2,000 MG in DEXTROSE 5% 50 ML IV SCH ×2 (01:04→23:00)
[2021-01-28] MEDS: LEVOTHYROXINE SODIUM 50 MCG TABLET PO SCH (05:59)
[2021-01-28] MEDS: lisinopril 5 MG TAB PO SCH (08:56)
[2021-01-28] MEDS: PANTOprazole 40 MG TAB PO SCH (08:56)
[2021-01-28] MEDS: ATORVASTATIN 20 MG TAB PO SCH (08:56)
[2021-01-28] MEDS: GABAPENTIN 100 MG CAP PO SCH ×2 (08:57→21:40)
[2021-01-28] MEDS: carvediloL 12.5 MG TAB PO SCH ×2 (08:57→21:40)
[2021-01-28] MEDS: FLUTICASONE/VILANTEROL 100/25MCG 14 PUFFS/INHALER INH SCH (08:57)
--- NOTE | 2021-01-28 16:15 | Hospitalist Progress Note ---
Date of Service January 28, 2021 Assessment & Plan (1) Weakness: Multifactorial : Complicated UTI, no sepsis Deconditioning, patient refused SNF placement during last confinement. Home narcotics/neuropsychotropic meds contributory to episodic sleepiness at home. Remains generally weak and lethargic but no other distress Urine culture -E. coli and is pansensitive We will get PT and OT evaluation Awaiting transfer to facility Clinically a lot better and awaiting to be transferred to a facility Remains stable to be transferred Complicated UTI Urine culture is developing gram-negative bacilli-sensitivities pending We will continue current antibiotic for now Urine culture is growing E. coli and is pansensitive We will continue intravenous antibiotic while in the hospital PAF/PE/DVT, px NSR, Off anticoagulation given recent iliopsoas hematoma Heart rate remains controlled hx CAD as per records No acute cardiac symptoms Hypertension, slightly elevated Will monitor in the hospital and continue current medications Hyperlipidemia on statin Rx Hypothyroidism. Euthyroid as of today's TSH Chronic anemia, hemoglobin at baseline Chronic pain Use of narcotics may have contributed her weakness and subsequent fall Hold parameters for narcotics/neuropsychotropic meds for sedation confusion. We will decrease the pain medications on discharge Her pain medications will be adjusted on discharge DVT prophylaxis. SCDs Re: Recent retroperitoneal hemorrhage DNR Patient requesting updates for providers. Mr. Bennie Silva, contact #[phone]. Will be discharged when approved for a bed in a facility Admission and Anticipated Discharge Date Admission Date: January 25, 2021 Subjective 01/25/2021 The patient was seen and examined in medical floor She has significant past medical history as mentioned in the H&P has been complaining of progressive weakness over the last 3 days She slid to the floor from a chair without any significant trauma and/or loss of consciousness She was noted to have UTI which may be contributing her overall weakness Denies any other symptoms as of this morning 01/26/2021 The patient was seen and examined in medical floor She is out of bed on a chair and has been feeling a lot better Denies any fever and/or chills and no urinary symptoms She has been waiting to be accepted to a facility for rehab 01/27/2021 The patient was seen and examined in medical floor She remains stable without any acute symptoms She has been waiting to go to rehab 01/28/2021 The patient was seen and examined in medical floor She remains stable and is out of bed on a chair Denies any symptoms Review of Systems Review of Systems: All systems reviewed and are unremarkable except as noted below Physical Exam Physical Exam: Sitting on a chair without any acute distress Constitutional: well developed, well nourished and + obese; not ill appearing Eyes: PERRL, conjunctivae normal, anicteric sclerae ENMT: external ear and nose normal, oropharynx normal Neck: trachea midline, no thyromegaly Respiratory: no respiratory distress Auscultation: lungs clear to auscultation bilaterally and + diminished lung sounds Cardiovascular: Rate/Rhythm: regular rate and regular rhythm Heart Sounds: no murmur Extremities: + edema (Trace edema bilaterally) Gastrointestinal (Abdomen): Inspection/Auscultation: normal bowel sounds; abdomen not distended Percussion/Palpation: abdomen soft; abdomen nontender Musculoskeletal: No acute arthritis in any joint Neurologic: Alert, awake and oriented x3. Generally weak but no focal sensory and motor deficit appreciated Lymphatic: no cervical or axillary lymphadenopathy Results & Data Results & Data ([facility]) Vital Signs (Past 12 Hours) Vital Signs Temp Pulse Resp BP BP Pulse Ox 01/28/21 14:57 36.5 C 68 16 170/82 H 94 01/28/21 07:11 36.7 C 83 16 149/66 H 96 Medications Administered Current Inpatient Medications Acetaminophen (Acetaminophen 325 Mg Tab) 650 mg PO Q4H PRN PRN Reason: pain/fever Stop: 02/23/21 22:03 Last Admin: 01/27/21 16:01 Dose: 650 mg Documented by: Amitriptyline HCl (Amitriptyline Hcl 25 Mg Tab) 25 mg PO HS [facility] Stop: 02/24/21 20:59 Last Admin: 01/27/21 21:09 Dose: 25 mg Documented by: Atorvastatin Calcium (Atorvastatin 20 Mg Tab) 20 mg PO DAILY [facility] Stop: 02/24/21 08:59 Last Admin: 01/28/21 08:56 Dose: 20 mg Documented by: Carvedilol (Carvedilol 12.5 Mg Tab) 12.5 mg PO BID [facility] Stop: 02/23/21 22:59 Last Admin: 01/28/21 08:57 Dose: 12.5 mg Documented by: Duloxetine HCl (Duloxetine Hcl 30 Mg Cap) 30 mg PO HS [facility] Stop: 02/24/21 20:59 Last Admin: 01/27/21 21:10 Dose: 30 mg Documented by: Fluticasone/Vilanterol (Fluticasone/Vilanterol 100/25mcg 14 Puffs/Inhaler) 1 puffs INH DAILY [facility]; Protocol Stop: 02/24/21 08:59 Last Admin: 01/28/21 08:57 Dose: 1 puffs Documented by: Gabapentin (Gabapentin 100 Mg Cap) 100 mg PO BID [facility] Stop: 02/24/21 08:59 Last Admin: 01/28/21 08:57 Dose: 100 mg Documented by: Promethazine HCl 12.5 mg/ (Sodium Chloride) 50.5 mls @ 202 mls/hr IV Q6H PRN PRN Reason: Nausea And Vomiting Stop: 02/23/21 22:03 Ceftriaxone Sodium 2,000 mg/ (Dextrose) 70 mls @ 140 mls/hr IV Q24H [facility]; Protocol Stop: 02/04/21 00:14 Last Infusion: 01/28/21 01:34 Dose: Infused Documented by: Ipratropium [place] (Ipratropium [place] Neb Soln 0.02% 2.5 Ml Vial) 0.5 mg INH Q4R PRN PRN Reason: Shortness Of Breath Or Wheezing Stop: 02/23/21 22:59 Last Admin: 01/25/21 01:01 Dose: 0.5 mg Documented by: Levalbuterol HCl (Levalbuterol 1.25mg/0.5ml Neb) 1.25 mg INH Q4R PRN PRN Reason: Shortness Of Breath Or Wheezing Stop: 02/23/21 22:59 Last Admin: 01/25/21 01:01 Dose: 1.25 mg Documented by: Levothyroxine Sodium (Levothyroxine Sodium 50 Mcg Tablet) 50 mcg PO DAILYBB [facility] Stop: 02/24/21 06:29 Last Admin: 01/28/21 05:59 Dose: 50 mcg Documented by: Lisinopril (Lisinopril 5 Mg Tab) 5 mg PO QAM [facility] Stop: 02/24/21 08:59 Last Admin: 01/28/21 08:56 Dose: 5 mg Documented by: Montelukast Sodium (Montelukast Sodium 10 Mg Tablet) 10 mg PO HS [facility] Stop: 02/24/21 20:59 Last Admin: 06/11/21 21:11 Dose: 10 mg Documented by: Oxycodone HCl (Oxycodone Hcl Ir 5 Mg Tab (Immediate Release)) 5 mg PO QID PRN PRN Reason: Pain Stop: 02/07/21 22:03 Last Admin: 01/26/21 12:36 Dose: 5 mg Documented by: Pantoprazole Sodium (Pantoprazole 40 Mg Tab) 40 mg PO DAILY [facility] Stop: 02/24/21 08:59 Last Admin: 01/28/21 08:56 Dose: 40 mg Documented by:
[2021-01-28] MEDS: MONTELUKAST SODIUM 10 MG TABLET PO SCH (21:39)
[2021-01-28] MEDS: DULoxetine HCL 30 MG CAP PO SCH (21:40)
[2021-01-28] MEDS: AMITRIPTYLINE HCL 25 MG TAB PO SCH (21:40)
[2021-01-28] MEDS: ACETAMINOPHEN 325 MG TAB PO PRN (23:04)
[2021-01-29] MEDS: ACETAMINOPHEN 325 MG TAB PO PRN (04:04)
[2021-01-29] MEDS: LEVOTHYROXINE SODIUM 50 MCG TABLET PO SCH (06:11)
[2021-01-29] MEDS ORDERED: SUMAtriptan succinate 50 MG TAB PO STA (06:26)
[2021-01-29] MEDS: ATORVASTATIN 20 MG TAB PO SCH (08:56)
[2021-01-29] MEDS: lisinopril 5 MG TAB PO SCH (08:57)
[2021-01-29] MEDS: GABAPENTIN 100 MG CAP PO SCH ×2 (08:57→20:57)
[2021-01-29] MEDS: carvediloL 12.5 MG TAB PO SCH ×2 (08:57→20:59)
[2021-01-29] MEDS: PANTOprazole 40 MG TAB PO SCH (08:57)
[2021-01-29] MEDS: FLUTICASONE/VILANTEROL 100/25MCG 14 PUFFS/INHALER INH SCH (08:59)
--- NOTE | 2021-01-29 13:25 | Hospitalist Progress Note ---
Date of Service January 29, 2021 Assessment & Plan (1) Weakness: Multifactorial : Complicated UTI, no sepsis Deconditioning, patient refused SNF placement during last confinement. Home narcotics/neuropsychotropic meds contributory to episodic sleepiness at home. Remains generally weak and lethargic but no other distress Urine culture -E. coli and is pansensitive We will get PT and OT evaluation We will discharge when approved to facility Complicated UTI Urine culture is developing gram-negative bacilli-sensitivities pending We will continue current antibiotic for now Urine culture is growing E. coli and is pansensitive We will continue intravenous antibiotic while in the hospital Oral antibiotic on discharge to finish the course PAF/PE/DVT, px NSR, Off anticoagulation given recent iliopsoas hematoma Heart rate remains controlled hx CAD as per records No acute cardiac symptoms Hypertension, slightly elevated Will monitor in the hospital and continue current medications Hyperlipidemia on statin Rx Hypothyroidism. Euthyroid as of today's TSH Chronic anemia, hemoglobin at baseline Chronic pain Use of narcotics may have contributed her weakness and subsequent fall Hold parameters for narcotics/neuropsychotropic meds for sedation confusion. We will decrease the pain medications on discharge Her pain medications will be adjusted on discharge DVT prophylaxis. SCDs Re: Recent retroperitoneal hemorrhage DNR Patient requesting updates for providers. Mr. Bennie Silva, contact #[phone]. Will be discharged when approved for a bed in a facility Admission and Anticipated Discharge Date Admission Date: January 25, 2021 Subjective 01/25/2021 The patient was seen and examined in medical floor She has significant past medical history as mentioned in the H&P has been complaining of progressive weakness over the last 3 days She slid to the floor from a chair without any significant trauma and/or loss of consciousness She was noted to have UTI which may be contributing her overall weakness Denies any other symptoms as of this morning 01/26/2021 The patient was seen and examined in medical floor She is out of bed on a chair and has been feeling a lot better Denies any fever and/or chills and no urinary symptoms She has been waiting to be accepted to a facility for rehab 01/27/2021 The patient was seen and examined in medical floor She remains stable without any acute symptoms She has been waiting to go to rehab 01/28/2021 The patient was seen and examined in medical floor She remains stable and is out of bed on a chair Denies any symptoms 01/29/2021 The patient was seen and examined in medical floor She remains stable and denies any symptoms No signs and or symptoms of infection Awaiting to be transferred to rehab Review of Systems Review of Systems: All systems reviewed and are unremarkable except as noted below Neurologic: + generalized weakness Physical Exam Physical Exam: Sitting on a chair without any acute distress Constitutional: well developed, well nourished and + obese; not ill appearing Eyes: PERRL, conjunctivae normal, anicteric sclerae ENMT: external ear and nose normal, oropharynx normal Neck: trachea midline, no thyromegaly Respiratory: no respiratory distress Auscultation: lungs clear to auscultation bilaterally and + diminished lung sounds Cardiovascular: Rate/Rhythm: regular rate and regular rhythm Heart Sounds: no murmur Extremities: + edema (Trace edema bilaterally) Gastrointestinal (Abdomen): Inspection/Auscultation: normal bowel sounds; abdomen not distended Percussion/Palpation: abdomen soft; abdomen nontender Musculoskeletal: No acute arthritis in any joint Neurologic: Alert, awake and oriented x3 no focal sensory and motor deficit appreciated. Lymphatic: no cervical or axillary lymphadenopathy Results & Data Results & Data ([facility]) Vital Signs (Past 12 Hours) Vital Signs Temp Pulse Resp BP Pulse Ox 01/29/21 07:13 36.8 C 73 16 163/75 H 97
[2021-01-29] MEDS: AMITRIPTYLINE HCL 25 MG TAB PO SCH (20:57)
[2021-01-29] MEDS: DULoxetine HCL 30 MG CAP PO SCH (20:58)
[2021-01-29] MEDS: MONTELUKAST SODIUM 10 MG TABLET PO SCH (20:58)
[2021-01-29] MEDS: cefTRIAXone SODIUM 2,000 MG in DEXTROSE 5% 50 ML IV SCH (23:58)
[2021-01-30] MEDS: LEVOTHYROXINE SODIUM 50 MCG TABLET PO SCH (05:49)
[2021-01-30 07:11] LABS: Eosinophils # (auto) 0.02 K/uL (0-0.5); Eosinophils % (auto) 0.3 %; Hematocrit (blood only) 27.8 % (37-47); Hemoglobin 9.2 g/dL (12.0-16.0); Immature Granulocytes # (auto) 0.04 K/uL (0.00-0.02); Immature Granulocytes % (auto) 0.7 %; Lymphocytes # (auto) 1.07 K/uL (1.2-3.4); Lymphocytes % (auto) 18.2 %; Mean Corpuscular Hemoglobin 34.6 pg (25-34); Mean Corpuscular Hgb Conc 33.1 g/dL (32-36); Mean Corpuscular Volume 104.5 fL (80-100); Mean Platelet Volume 9.6 fL (7.4-10.4); Monocytes % (auto) 6.8 %; Neutrophils # (auto) 4.36 K/uL (1.4-6.5); Platelet Count 307 K/uL (130-400); RDW Coefficient of Variation 17.7 % (11.5-14.5); RDW Standard Deviation 67.4 fL (36.4-46.3); Red Blood Count 2.66 M/uL (4.2-5.4); White Blood Count 5.89 K/uL (4.8-10.8)
[2021-01-30 07:50] LABS: BUN Creatinine Ratio 16.8 (10-20); Calcium 8.3 mg/dl (8.5-10.1); Creatinine Clr Calc Pharmacy 68.8 ml/min; Est GFR (African American) 87.1 ml/min; Est GFR (Non-African American) 75.1 ml/min; Potassium 4.1 mmol/L (3.5-5.1)
[2021-01-30] MEDS: ATORVASTATIN 20 MG TAB PO SCH (08:25)
[2021-01-30] MEDS: ACETAMINOPHEN 325 MG TAB PO PRN ×2 (08:25→15:26)
[2021-01-30] MEDS: carvediloL 12.5 MG TAB PO SCH ×2 (08:26→20:04)
[2021-01-30] MEDS: GABAPENTIN 100 MG CAP PO SCH ×2 (08:26→20:06)
[2021-01-30] MEDS: lisinopril 5 MG TAB PO SCH (08:26)
[2021-01-30] MEDS: FLUTICASONE/VILANTEROL 100/25MCG 14 PUFFS/INHALER INH SCH (08:27)
[2021-01-30] MEDS: PANTOprazole 40 MG TAB PO SCH (09:46)
--- NOTE | 2021-01-30 10:59 | Hospitalist Progress Note ---
Date of Service January 30, 2021 Assessment & Plan (1) Weakness: Multifactorial : Complicated UTI, no sepsis Deconditioning, patient refused SNF placement during last confinement. Home narcotics/neuropsychotropic meds contributory to episodic sleepiness at home. Remains generally weak and lethargic but no other distress Urine culture -E. coli and is pansensitive We will get PT and OT evaluation Likely to be discharged to [facility] this afternoon Complicated UTI Urine culture is developing gram-negative bacilli-sensitivities pending We will continue current antibiotic for now Urine culture is growing E. coli and is pansensitive We will continue intravenous antibiotic while in the hospital Oral antibiotic on discharge to finish the course Will give Keflex for 5 more days PAF/PE/DVT, px NSR, Off anticoagulation given recent iliopsoas hematoma Heart rate remains controlled hx CAD as per records No acute cardiac symptoms Hypertension, slightly elevated Will monitor in the hospital and continue current medications Hyperlipidemia on statin Rx Hypothyroidism. Euthyroid as of today's TSH Chronic anemia, hemoglobin at baseline Chronic pain Use of narcotics may have contributed her weakness and subsequent fall Hold parameters for narcotics/neuropsychotropic meds for sedation confusion. We will decrease the pain medications on discharge Her pain medications will be adjusted on discharge-we will continue with the current pain medications and discontinue the home pain medications DVT prophylaxis. SCDs Re: Recent retroperitoneal hemorrhage DNR Patient requesting updates for providers. Mr. Bennie Silva, contact #[phone]. Will be discharged when approved for a bed in a facility Admission and Anticipated Discharge Date Admission Date: January 25, 2021 Subjective 01/25/2021 The patient was seen and examined in medical floor She has significant past medical history as mentioned in the H&P has been complaining of progressive weakness over the last 3 days She slid to the floor from a chair without any significant trauma and/or loss of consciousness She was noted to have UTI which may be contributing her overall weakness Denies any other symptoms as of this morning 01/26/2021 The patient was seen and examined in medical floor She is out of bed on a chair and has been feeling a lot better Denies any fever and/or chills and no urinary symptoms She has been waiting to be accepted to a facility for rehab 01/27/2021 The patient was seen and examined in medical floor She remains stable without any acute symptoms She has been waiting to go to rehab 01/28/2021 The patient was seen and examined in medical floor She remains stable and is out of bed on a chair Denies any symptoms 01/29/2021 The patient was seen and examined in medical floor She remains stable and denies any symptoms No signs and or symptoms of infection Awaiting to be transferred to rehab 01/30/2021 The patient was seen and examined in medical floor She denies any symptoms and has been feeling a lot better She will be discharged to [facility] this afternoon Review of Systems Review of Systems: All systems reviewed and are unremarkable except as noted below Neurologic: + generalized weakness Physical Exam Physical Exam: Sitting on a chair without any acute distress Constitutional: well developed, well nourished and + obese; not ill appearing Eyes: PERRL, conjunctivae normal, anicteric sclerae ENMT: external ear and nose normal, oropharynx normal Neck: trachea midline, no thyromegaly Respiratory: no respiratory distress Auscultation: lungs clear to auscultation bilaterally and + diminished lung sounds Cardiovascular: Rate/Rhythm: regular rate and regular rhythm Heart Sounds: no murmur Extremities: + edema (Trace edema bilaterally) Gastrointestinal (Abdomen): Inspection/Auscultation: normal bowel sounds; abdomen not distended Percussion/Palpation: abdomen soft; abdomen nontender Musculoskeletal: No acute arthritis in any joint Neurologic: Alert, awake and oriented x3. Generally weak but no focal sensory and motor deficit appreciated Lymphatic: no cervical or axillary lymphadenopathy Results & Data Results & Data ([facility]) Vital Signs (Past 12 Hours) Vital Signs Temp Pulse Resp BP Pulse Ox 01/30/21 08:36 36.7 C 82 16 162/84 H 97 Laboratory Results Short CBC 01/30/21 Range/Units 06:36 WBC 5.89 (4.8-10.8) K/uL Hgb 9.2 L (12.0-16.0) g/dL Hct 27.8 L (37-47) % Plt Count 307 (130-400) K/uL BMP 01/30/21 06:36 Sodium 141 Potassium 4.1 Chloride 106 Carbon Dioxide 29 BUN 13 Creatinine 0.76 Glucose 87 Calcium 8.3 L Medications Administered Current Inpatient Medications Acetaminophen (Acetaminophen 325 Mg Tab) 650 mg PO Q4H PRN PRN Reason: pain/fever Stop: 02/23/21 22:03 Last Admin: 01/30/21 08:25 Dose: 650 mg Documented by: Amitriptyline HCl (Amitriptyline Hcl 25 Mg Tab) 25 mg PO HS [facility] Stop: 02/24/21 20:59 Last Admin: 01/29/21 20:57 Dose: 25 mg Documented by: Atorvastatin Calcium (Atorvastatin 20 Mg Tab) 20 mg PO DAILY [facility] Stop: 02/24/21 08:59 Last Admin: 01/30/21 08:25 Dose: 20 mg Documented by: Carvedilol (Carvedilol 12.5 Mg Tab) 12.5 mg PO BID [facility] Stop: 02/23/21 22:59 Last Admin: 01/30/21 08:26 Dose: 12.5 mg Documented by: Duloxetine HCl (Duloxetine Hcl 30 Mg Cap) 30 mg PO HS [facility] Stop: 02/24/21 20:59 Last Admin: 01/29/21 20:58 Dose: 30 mg Documented by: Fluticasone/Vilanterol (Fluticasone/Vilanterol 100/25mcg 14 Puffs/Inhaler) 1 puffs INH DAILY [facility]; Protocol Stop: 02/24/21 08:59 Last Admin: 01/30/21 08:27 Dose: 1 puffs Documented by: Gabapentin (Gabapentin 100 Mg Cap) 100 mg PO BID [facility] Stop: 02/24/21 08:59 Last Admin: 01/30/21 08:26 Dose: 100 mg Documented by: Promethazine HCl 12.5 mg/ (Sodium Chloride) 50.5 mls @ 202 mls/hr IV Q6H PRN PRN Reason: Nausea And Vomiting Stop: 02/23/21 22:03 Ceftriaxone Sodium 2,000 mg/ (Dextrose) 70 mls @ 140 mls/hr IV Q24H [facility]; Protocol Stop: 02/04/21 00:14 Last Infusion: 01/30/21 00:28 Dose: Infused Documented by: Ipratropium [place] (Ipratropium [place] Neb Soln 0.02% 2.5 Ml Vial) 0.5 mg INH Q4R PRN PRN Reason: Shortness Of Breath Or Wheezing Stop: 02/23/21 22:59 Last Admin: 01/25/21 01:01 Dose: 0.5 mg Documented by: Levalbuterol HCl (Levalbuterol 1.25mg/0.5ml Neb) 1.25 mg INH Q4R PRN PRN Reason: Shortness Of Breath Or Wheezing Stop: 02/23/21 22:59 Last Admin: 01/25/21 01:01 Dose: 1.25 mg Documented by: Levothyroxine Sodium (Levothyroxine Sodium 50 Mcg Tablet) 50 mcg PO DAILYBB [facility] Stop: 02/24/21 06:29 Last Admin: 01/30/21 05:49 Dose: 50 mcg Documented by: Lisinopril (Lisinopril 5 Mg Tab) 5 mg PO QAM [facility] Stop: 02/24/21 08:59 Last Admin: 01/30/21 08:26 Dose: 5 mg Documented by: Montelukast Sodium (Montelukast Sodium 10 Mg Tablet) 10 mg PO HS [facility] Stop: 02/24/21 20:59 Last Admin: 01/29/21 20:58 Dose: 10 mg Documented by: Oxycodone HCl (Oxycodone Hcl Ir 5 Mg Tab (Immediate Release)) 5 mg PO QID PRN PRN Reason: Pain Stop: 02/07/21 22:03 Last Admin: 01/26/21 12:36 Dose: 5 mg Documented by: Pantoprazole Sodium (Pantoprazole 40 Mg Tab) 40 mg PO DAILY [facility] Stop: 02/24/21 08:59 Last Admin: 01/30/21 09:46 Dose: 40 mg Documented by:
[2021-01-30] MEDS: AMITRIPTYLINE HCL 25 MG TAB PO SCH (20:04)
[2021-01-30] MEDS: MONTELUKAST SODIUM 10 MG TABLET PO SCH (20:06)
[2021-01-30] MEDS: DULoxetine HCL 30 MG CAP PO SCH (20:06)
[2021-01-31] MEDS: LEVOTHYROXINE SODIUM 50 MCG TABLET PO SCH (06:15)
[2021-01-31] MEDS: lisinopril 5 MG TAB PO SCH (08:59)
[2021-01-31] MEDS: PANTOprazole 40 MG TAB PO SCH (08:59)
[2021-01-31] MEDS: carvediloL 12.5 MG TAB PO SCH (08:59)
[2021-01-31] MEDS: ATORVASTATIN 20 MG TAB PO SCH (08:59)
[2021-01-31] MEDS: GABAPENTIN 100 MG CAP PO SCH (09:00)
[2021-01-31] MEDS: FLUTICASONE/VILANTEROL 100/25MCG 14 PUFFS/INHALER INH SCH (09:00)
[2021-01-31] MEDS ORDERED: cephALEXin 500 MG CAP PO SCH (09:00)
--- NOTE | 2021-01-31 09:31 | Hospitalist Progress Note ---
Date of Service January 31, 2021 Assessment & Plan (1) Weakness: Multifactorial : Complicated UTI, no sepsis Deconditioning, patient refused SNF placement during last confinement. Home narcotics/neuropsychotropic meds contributory to episodic sleepiness at home. Remains generally weak and lethargic but no other distress Urine culture -E. coli and is pansensitive We will get PT and OT evaluation-recommended to go back to [facility] She has been accepted and has a bed in [facility] Will be discharged this afternoon Complicated UTI Urine culture is developing gram-negative bacilli-sensitivities pending We will continue current antibiotic for now Urine culture is growing E. coli and is pansensitive We will continue intravenous antibiotic while in the hospital Oral antibiotic on discharge to finish the course Will give Keflex for 4 more days PAF/PE/DVT, px NSR, Off anticoagulation given recent iliopsoas hematoma Heart rate remains controlled hx CAD as per records No acute cardiac symptoms Hypertension, slightly elevated Will monitor in the hospital and continue current medications Hyperlipidemia on statin Rx Hypothyroidism. Euthyroid as of today's TSH Chronic anemia, hemoglobin at baseline Chronic pain Use of narcotics may have contributed her weakness and subsequent fall Hold parameters for narcotics/neuropsychotropic meds for sedation confusion. We will decrease the pain medications on discharge Her pain medications will be adjusted on discharge-we will continue with the current pain medications and discontinue the home pain medications DVT prophylaxis. SCDs Re: Recent retroperitoneal hemorrhage DNR Patient requesting updates for providers. Mr. Bennie Silva, contact #[phone]. She will be discharged to [facility] at 1 PM today Admission and Anticipated Discharge Date Admission Date: January 25, 2021 Subjective 01/25/2021 The patient was seen and examined in medical floor She has significant past medical history as mentioned in the H&P has been complaining of progressive weakness over the last 3 days She slid to the floor from a chair without any significant trauma and/or loss of consciousness She was noted to have UTI which may be contributing her overall weakness Denies any other symptoms as of this morning 01/26/2021 The patient was seen and examined in medical floor She is out of bed on a chair and has been feeling a lot better Denies any fever and/or chills and no urinary symptoms She has been waiting to be accepted to a facility for rehab 01/27/2021 The patient was seen and examined in medical floor She remains stable without any acute symptoms She has been waiting to go to rehab 01/28/2021 The patient was seen and examined in medical floor She remains stable and is out of bed on a chair Denies any symptoms 01/29/2021 The patient was seen and examined in medical floor She remains stable and denies any symptoms No signs and or symptoms of infection Awaiting to be transferred to rehab 01/30/2021 The patient was seen and examined in medical floor She denies any symptoms and has been feeling a lot better She will be discharged to [facility] this afternoon 01/31/2021 The patient was seen and examined in medical floor She is lying in bed comfortably without any symptoms She is happy that she will be discharged this afternoon Review of Systems Review of Systems: All systems reviewed and are unremarkable except as noted below Gastrointestinal: no abdominal pain, no nausea and no vomiting Genitourinary: no dysuria Physical Exam Physical Exam: Lying in bed comfortably Constitutional: well developed, well nourished and + obese; not ill appearing Eyes: PERRL, conjunctivae normal, anicteric sclerae ENMT: external ear and nose normal, oropharynx normal Neck: trachea midline, no thyromegaly Respiratory: no respiratory distress Auscultation: lungs clear to auscultation bilaterally, + diminished lung sounds and + crackles (Minimal crackles right base) Cardiovascular: Rate/Rhythm: regular rate and regular rhythm Heart Sounds: no murmur Extremities: + edema (Trace edema bilaterally) Gastrointestinal (Abdomen): Inspection/Auscultation: normal bowel sounds; abdomen not distended Percussion/Palpation: abdomen soft; abdomen nontender Musculoskeletal: No acute arthritis in any joint Neurologic: Alert, awake and oriented x3. Generally weak but no focal sensory and motor deficit appreciated Psychiatric: A+Ox3, euthymic affect Lymphatic: no cervical or axillary lymphadenopathy Results & Data Results & Data ([facility]) Vital Signs (Past 12 Hours) Vital Signs Temp Pulse Resp BP Pulse Ox 01/31/21 08:00 36.9 C 85 16 167/82 H 98 01/30/21 23:18 36.4 C L 79 18 151/73 H 94 Medications Administered Current Inpatient Medications Acetaminophen (Acetaminophen 325 Mg Tab) 650 mg PO Q4H PRN PRN Reason: pain/fever Stop: 02/23/21 22:03 Last Admin: 01/30/21 15:26 Dose: 650 mg Documented by: Amitriptyline HCl (Amitriptyline Hcl 25 Mg Tab) 25 mg PO [facility] Stop: 02/24/21 20:59 Last Admin: 01/30/21 20:04 Dose: 25 mg Documented by: Atorvastatin Calcium (Atorvastatin 20 Mg Tab) 20 mg PO DAILY [facility] Stop: 02/24/21 08:59 Last Admin: 01/31/21 08:59 Dose: 20 mg Documented by: Carvedilol (Carvedilol 12.5 Mg Tab) 12.5 mg PO BID [facility] Stop: 02/23/21 22:59 Last Admin: 01/31/21 08:59 Dose: 12.5 mg Documented by: Cephalexin HCl (Cephalexin 500 Mg Cap) 500 mg PO BID [facility]; Protocol Stop: 02/03/21 23:59 Last Admin: 01/31/21 09:02 Dose: 500 mg Documented by: Duloxetine HCl (Duloxetine Hcl 30 Mg Cap) 30 mg PO [facility] Stop: 02/24/21 20:59 Last Admin: 01/30/21 20:06 Dose: 30 mg Documented by: Fluticasone/Vilanterol (Fluticasone/Vilanterol 100/25mcg 14 Puffs/Inhaler) 1 puffs INH DAILY [facility]; Protocol Stop: 02/24/21 08:59 Last Admin: 01/31/21 09:00 Dose: 1 puffs Documented by: Gabapentin (Gabapentin 100 Mg Cap) 100 mg PO BID [facility] Stop: 02/24/21 08:59 Last Admin: 01/31/21 09:00 Dose: 100 mg Documented by: Promethazine HCl 12.5 mg/ (Sodium Chloride) 50.5 mls @ 202 mls/hr IV Q6H PRN PRN Reason: Nausea And Vomiting Stop: 02/23/21 22:03 Ipratropium [place] (Ipratropium [place] Neb Soln 0.02% 2.5 Ml Vial) 0.5 mg INH Q4R PRN PRN Reason: Shortness Of Breath Or Wheezing Stop: 02/23/21 22:59 Last Admin: 01/25/21 01:01 Dose: 0.5 mg Documented by: Levalbuterol HCl (Levalbuterol 1.25mg/0.5ml Neb) 1.25 mg INH Q4R PRN PRN Reason: Shortness Of Breath Or Wheezing Stop: 02/23/21 22:59 Last Admin: 01/25/21 01:01 Dose: 1.25 mg Documented by: Levothyroxine Sodium (Levothyroxine Sodium 50 Mcg Tablet) 50 mcg PO DAILYBB [facility] Stop: 02/24/21 06:29 Last Admin: 01/31/21 06:15 Dose: 50 mcg Documented by: Lisinopril (Lisinopril 5 Mg Tab) 5 mg PO QAM [facility] Stop: 02/24/21 08:59 Last Admin: 01/31/21 08:59 Dose: 5 mg Documented by: Montelukast Sodium (Montelukast Sodium 10 Mg Tablet) 10 mg PO HS [facility] Stop: 02/24/21 20:59 Last Admin: 01/30/21 20:06 Dose: 10 mg Documented by: Oxycodone HCl (Oxycodone Hcl Ir 5 Mg Tab (Immediate Release)) 5 mg PO QID PRN PRN Reason: Pain Stop: 02/07/21 22:03 Last Admin: 01/26/21 12:36 Dose: 5 mg Documented by: Pantoprazole Sodium (Pantoprazole 40 Mg Tab) 40 mg PO DAILY [facility] Stop: 02/24/21 08:59 Last Admin: 01/31/21 08:59 Dose: 40 mg Documented by:
--- NOTE | 2021-01-31 17:51 | Discharge Summary ---
Date of Service January 31, 2021 Admission HPI Per Admitting Provider History obtained from patient and records. Medical history significant for asthma, PAF/PE/DVT off Coumadin secondary to recent use shows hematoma, CAD as per records, chronic LBBB, hypertension, hyperlipidemia, WAYLON as per records, hypothyroidism, chronic anemia (baseline hemoglobin of 8), fibromyalgia as per records. Recent confinement January 06-2020 for respiratory failure secondary to narcotic overdose. Patient also found to have traumatic left-sided retroperitoneal hemorrhage in the setting of Coumadin intake. Patient Coumadin stopped on discharge. PT OT recommended SNF but patient refused as per documentation. Patient noted to be fatigued at home. Patient denies chest pain, S OB, cough, abdominal pain symptoms. Sleeping a lot as per Labs ordered by PCP after recent outpatient follow-up visit last week. UA yesterday noted to be positive for WBC esterase, and nitrate. Patient brought to ER for evaluation because of worsening generalized weakness. Patient denies depression. Thinks she may have a urine infection. Denies abdominal pain, flank pain, fever, chills. 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 Admission Exam Per Admitting Provider Physical Exam: GENERAL: Slightly anxious, obese, laconic, no respiratory distress SKIN: Pallor, warm HEENT: Pale palpebral conjunctivae, no ptosis, dry buccal mucosa NECK : Supple, short neck, no tenderness CHEST : CTA, no tenderness HEART : RRR, no obvious murmurs ABDOMEN: Some distention, nontender EXTREMITIES : Minimal LE swelling, no LE tenderness, no other conspicuous deformities noted NEUROLOGIC : Coherent, no facial asymmetry, slightly hard of hearing, gait and stance not assessed Principal Diagnosis Generalized weakness, complicated UTI, PAF, history of DVT and PE off anticoagulation, hypertension, hypothyroidism Discharge Exam Constitutional well developed, well nourished and + obese; not ill appearing Eyes PERRL, conjunctivae normal, anicteric sclerae ENMT external ear and nose normal, oropharynx normal Neck trachea midline, no thyromegaly Respiratory no respiratory distress Auscultation: lungs clear to auscultation bilaterally, + diminished lung sounds and + crackles (Minimal crackles right base) Cardiovascular Rate/Rhythm: regular rate and regular rhythm Heart Sounds: no murmur Extremities: + edema (Trace edema bilaterally) Gastrointestinal (Abdomen) Inspection/Auscultation: normal bowel sounds; abdomen not distended Percussion/Palpation: abdomen soft; abdomen nontender Psychiatric A+Ox3, euthymic affect Lymphatic no cervical or axillary lymphadenopathy Discharge Data Allergies Allergy/AdvReac Type Severity Reaction Status Date / Time aspirin Allergy Unknown Unknown Verified 01/24/21 17:02 Sulfa (Sulfonamide Allergy Unknown Unknown Verified 01/24/21 17:02 Antibiotics) Consultations 01/24/21 19:08 ED Decision to Admit Stat Ordered Studies 01/24/21 16:40 CT head/brain wo con Stat Hospital Course (1) Weakness: Multifactorial : Complicated UTI, no sepsis Deconditioning, patient refused SNF placement during last confinement. Home narcotics/neuropsychotropic meds contributory to episodic sleepiness at home. Remains generally weak and lethargic but no other distress Urine culture -E. coli and is pansensitive We will get PT and OT evaluation-recommended to go back to [facility] She has been accepted and has a bed in [facility] Will be discharged this afternoon Complicated UTI Urine culture is developing gram-negative bacilli-sensitivities pending We will continue current antibiotic for now Urine culture is growing E. coli and is pansensitive We will continue intravenous antibiotic while in the hospital Oral antibiotic on discharge to finish the course Will give Keflex for 4 more days PAF/PE/DVT, px NSR, Off anticoagulation given recent iliopsoas hematoma Heart rate remains controlled hx CAD as per records No acute cardiac symptoms Hypertension, slightly elevated Will monitor in the hospital and continue current medications Hyperlipidemia on statin Rx Hypothyroidism. Euthyroid as of today's TSH Chronic anemia, hemoglobin at baseline Chronic pain Use of narcotics may have contributed her weakness and subsequent fall Hold parameters for narcotics/neuropsychotropic meds for sedation confusion. We will decrease the pain medications on discharge Her pain medications will be adjusted on discharge-we will continue with the current pain medications and discontinue the home pain medications DVT prophylaxis. SCDs Re: Recent retroperitoneal hemorrhage DNR Patient requesting updates for providers. Mr. Bennie Silva, contact #[phone]. She will be discharged to [facility] at 1 PM today Total Time Total Time Spent Total Time Spent (In Minutes): 40 minutes Total Time Includes: Examination of the Patient, Discharge Planning, Medication Reconciliation and Communication With Other Providers Discharge Plan Discharge Items Patient Disposition: Transfer [facility] Fac Reason For Visit: WEAKNESS Discharge Diagnosis: Generalized weakness, complicated UTI, PAF, history of DVT and PE off anticoagulation, hypertension, hypothyroidism Condition on Discharge: Good Activity: Resume your previous activity Activity Comment: Continue PT and OT Non-emergency contact: Primary Care Provider Call non-emergency contact if: you have any medication questions and your symptoms worsen Follow-up/Referrals: Giorgio Salas, [Primary Care Provider] - (Please make an appointment with your primary care physician within 1 week) Diet: Heart Healthy Addtl Attending Provider Instructions: Please take precautions to avoid fall Finish the course of antibiotic as advised Try to drink enough fluid Strongly advised to use narcotics pain medication as less as possible as these cause more confusion, weakness, tiredness and constipation. Pending Studies at Discharge: No Stand-Alone Forms: My [employer], Smoking Cessation Skilled Items Patient informed of condition?: Yes DNR: Yes Discharge Level of Care: Other Communicable Disease: No Discharge Prognosis: Stable Lines: None Urinary Catheter: No Medications and DC Order Prescriptions: New cephalexin 500 mg Capsule 500 mg PO BID Qty: 8 RF: 0 oxycodone 5 mg Tablet 5 mg PO QID PRN (Reason: pain) Qty: 14 RF: 0 Continued duloxetine 30 mg capsule,delayed release(DR/EC) 30 mg PO HS RF: 0 fluticasone propion-salmeterol [Advair Diskus] 250-50 mcg/dose Blister With Device 1 inh INHALATION BID RF: 0 pantoprazole 40 mg tablet,delayed release (DR/EC) 40 mg PO DAILY RF: 0 levothyroxine 50 mcg tablet 50 mcg PO DAILYBB RF: 0 carvedilol 12.5 mg tablet 12.5 mg PO BID RF: 0 alendronate 70 mg tablet 70 mg PO WK RF: 0 amitriptyline 25 mg tablet 25 mg PO HS RF: 0 montelukast 10 mg tablet 10 mg PO HS RF: 0 lisinopril 5 mg tablet 5 mg PO QAM RF: 0 albuterol sulfate [Ventolin HFA] 90 mcg/actuation Hfa Aerosol Inhaler 2 puff INHALATION Q4 PRN (Reason: Shortness Of Breath Or Wheezing) RF: 0 atorvastatin 20 mg tablet 20 mg PO DAILY RF: 0 sumatriptan succinate 100 mg tablet 100 mg PO UD PRN (Reason: Migraine Headache) RF: 0 albuterol sulfate 2.5 mg /3 mL (0.083 %) Solution For Nebulization 2.5 mg INHALATION Q4H PRN (Reason: Wheezing) RF: 0 oxycodone-acetaminophen 5-325 mg tablet 1 tab PO Q6 PRN (Reason: Severe Pain (Scale Score 7-10)) RF: 0 cyanocobalamin (vitamin B-12) 1,000 mcg/mL Solution 1,000 mcg IM Q4WK RF: 0 cholecalciferol (vitamin D3) 25 mcg (1,000 unit) Capsule 25 mcg PO DAILY RF: 0 gabapentin 100 mg capsule 100 mg PO BID Qty: 0 RF: 0 Discharge Orders: Discharge Order (Routine); Ordered 01/31/21 Ordered By: Jayla Hooker/Other Patient Handouts: Fall Prevention Assessing Risk Admission Data Admit Date/Time: 01/25/21 09:31 Attending Provider: Jayla Carbajal Admit Provider: Len Orellana Primary Care Provider: Giorgio Salas Other Providers: Len Orellana ; Wolf Morales [facility] ; [facility] [place], Other Interventions: Discharge Summary Assessment (RN) Last Done: 01/31/21 09:51
== END 2021-01-31 15:04 | DRG 690 ==
LOC: ED 15:47 → 3W 15:47

== ENCOUNTER 2022-03-07 20:42 | Inpatient (IN) ==
[2022-03-07] MEDS ORDERED: cefTRIAXone SODIUM 2,000 MG/70 ML BAG IV STA (21:15)
--- NOTE | 2022-03-07 21:19 | Emergency Department Note ---
Impression & Plan Acute respiratory distress, Weakness, COPD (chronic obstructive pulmonary disease) ED Provider Note NAME: BEV ALDRIDGE AGE: 81 SEX: F : 1940 ARRIVES VIA: Ambulance INFORMANT: Patient ED PROVIDER(S): Cj Moncada DO CHIEF COMPLAINT: weakness HPI: Patient is a 81-year-old female with a past medical history of PE, asthma, hypothyroidism, CAD who presents to the ER for weakness. Tonight she got up to the top of the stairs in the chair and could not get out. Family could not lift her up or help her. She notes she just feels weak all over. She has dysuria urgency and frequency which has been present off and on for 2 months. She denies any headache or change in vision. No chest pain or shortness of breath. No belly pain. No other exacerbating or remitting factors. ROS: See above HPI for pertinent positives & negatives. A total of 10 systems reviewed and were otherwise negative. PAST MEDICAL HISTORY:See Below PAST SURGICAL HISTORY:See Below FAMILY HISTORY:See Below SOCIAL HISTORY:See Below HOME MEDICATIONS:See Below ALLERGIES:See Below VITALS:See Below PHYSICAL EXAMINATION: GENERAL: Sitting up in bed, alert, chronically ill-appearing, disheveled, no acute distress EYE EXAM: normal conjunctiva. PERRL and EOM's grossly intact. OROPHARYNX:mucous membranes are moist NECK: supple, no nuchal rigidity, no adenopathy, non-tender LUNGS: Clear to auscultation. Normal chest wall mechanics HEART: no murmurs, S1 normal and S2 normal ABDOMEN: abdomen soft, non-tender, normo-active bowel sounds, no masses, no rebound or guarding. BACK: Back is symmetrical on inspection and there is no deformity, no midline tenderness, no CVA tenderness. SKIN: no rashes and no bruising UPPER EXTREMITIES: upper extremities are grossly normal. LOWER EXTREMITIES: No pitting edema. Bruising to the back of the right calf NEURO EXAM: Normal sensorium, cranial nerves II-XII intact, normal speech, no weakness of arms, no weakness of legs. No drift. Finger to nose intact. Gross sensation intact. MEDICAL DECISION MAKING: Patient is a 81-year-old female who presents the ER for weakness initially. IVs were established blood work was obtained. She was slightly hypotensive with systolics in the upper 90s. Labs show no significant leukocytosis. Mild anemia at 9 which consistent with previous. Platelets were appropriate 205. INR was supratherapeutic at 5.5 but she is not bleeding currently. BMP with creatinine 1.8 which is up from baseline of 1. Magnesium is significantly low at 1.5. Troponin mildly elevated 22. Pro-González was normal. They attempted to lay her flat to obtain a UA and when they did that she became significantly dyspneic and hypoxic. She was placed on a nonrebreather. I was called to bedside and had significant wheezing and was moving little to no air. She was placed on BiPAP and given neb treatments. Chest x-ray was not simply change from previous. ABG shows a pH of 7.28 with a CO2 of 57. On reevaluation she was feeling significantly better. At 12:30 AM she was back to her baseline. She was discussed with Dr. Zuri Mercedes for further evaluation and admission. Triage Nursing notes reviewed. Limited review of prior medical records performed Vital Signs: reviewed and remarkable for no significant abnormalities Differential diagnosis: Infection, dehydration, metabolic abnormality, hypo/hyperglycemia, electrolyte disturbance, anemia, hypoxia, cardiac sources, intracerebral event, toxicologic, neurologic, as well as other pathologies. ER treatment provided: See below Diagnostics interpreted by me: ECG: Sinus rhythm rate 94 Normal axis Left bundle branch block QTC 590 T wave inversion in the high lateral leads Cardiac Monitoring: An order was placed for continuous cardiac monitoring. The monitor shows a rate of 90 with sinus rhythm. Laboratory studies: As stated above and show below. Imaging studies: Portable AP upright 1 view chest shows no focal infiltrate but an elevated right diaphragm. No significant change from previous per my read Consultation(s): Discussed with Zuri Mercedes for further evaluation Procedures: none Critical Care: I have personally spent 32 minutes of critical care time in the direct management of this patient. This includes bedside care, interpretation of diagnostic studies, and testing, discussion with consultants, patient, and family members, and other required patient management activities. This 32 minutes is in excess of all separately billable procedures. Past Med/Surg History Medical History Asthma USES PRN INH 1 X WK Atrial flutter PT COULD NOT CONFIRM Chronic anticoagulation Chronic left hip pain Diffuse myofascial pain syndrome History of DVT (deep vein thrombosis) RLE - 20 YEARS AGO FOLLOWING INJURY History of endometriosis History of HI (myocardial infarction) 2018 - FOLLOWS W/ DR. JACOBSEN History of pulmonary embolism Hypertension Hypothyroidism Migraine On anticoagulant therapy On home oxygen therapy 2 LPM 02 QHS Opioid dependence Osteoarthritis Osteoporosis Poor historian Pulmonary edema Pulmonary embolism (10/10/12) 20 YEARS AGO AFTER INJURY 30 YEARS AGO - POST OP CHOLEYCYSTECTOMY ON WARFARIN Sleep apnea NO DEVICE Surgical History History of appendectomy History of cardiac cath 2018 - [place] - NO STENTS History of cataract surgery History of section History of cholecystectomy History of colonoscopy History of esophagogastroduodenoscopy (EGD) History of left knee surgery History of tonsillectomy History of total abdominal hysterectomy and bilateral salpingo-oophorectomy History of tubal ligation Family History Father Esophageal cancer Social History Smoking Status: Former smoker Second Hand Exposure: Yes (FAMILY MEMBERS CURRENTLY SMOKE); Hx Alcohol Use: No Hx Substance Use: No Preferred Language: Swedish Communication Ability: Effective Visual Impairment: No Limitations Hearing Ability: Normal Surgery Teacher Required: No Beliefs That Will Affect Care: None marital status: Current Living Situation: Spouse and Other Current Living Situation Comment: [employer] current occupational status: retired Feels Safe at Home: Yes Assistive Devices: Walker Allergies Allergies Allergy/AdvReac Type Severity Reaction Status Date / Time aspirin Allergy Unknown Unknown Verified 03/07/22 22:29 Sulfa (Sulfonamide Allergy Unknown Unknown Verified 03/07/22 22:29 Antibiotics) Home Meds Home Medications Medication Instructions Recorded Confirmed albuterol sulfate 90 mcg/actuation 2 puff inhalation Q4 PRN Shortness 11/10/18 03/07/22 aerosol inhaler (Ventolin HFA) Of Breath Or Wheezing alendronate 70 mg tablet 70 mg PO WK 11/10/18 03/07/22 amitriptyline 25 mg tablet 25 mg PO HS 11/10/18 03/07/22 carvedilol 12.5 mg tablet 12.5 mg PO BID 11/10/18 03/07/22 lisinopril 5 mg tablet 5 mg PO QAM 11/10/18 03/07/22 montelukast 10 mg tablet 10 mg PO HS 11/10/18 03/07/22 duloxetine 30 mg capsule,delayed 30 mg PO QAM 02/28/19 03/07/22 release pantoprazole 40 mg tablet,delayed 40 mg PO DAILY 07/22/19 03/07/22 release atorvastatin 20 mg tablet 20 mg PO DAILY 10/11/19 03/07/22 levothyroxine 50 mcg tablet 50 mcg PO DAILYBB 01/15/20 03/07/22 sumatriptan succinate 100 mg tablet 100 mg PO UD PRN Migraine Headache 06/27/20 03/07/22 albuterol sulfate 2.5 mg inhalation Q4H PRN Wheezing 01/06/21 03/07/22 cholecalciferol (vitamin D3) 25 25 mcg PO DAILY 01/06/21 03/07/22 mcg (1,000 unit) capsule gabapentin 100 mg capsule 200 mg PO TID 07/07/21 03/07/22 warfarin 5 mg tablet See Rx Instructions .Route .COMPLEX 07/07/21 03/07/22 acetaminophen 325 mg tablet 650 mg PO Q6H PRN PAIN/FEVER 03/07/22 03/07/22 (Tylenol) duloxetine 60 mg capsule,delayed 60 mg PO QAM 03/07/22 03/07/22 release fluticasone 100 mcg-salmeterol 50 1 inh inhalation BID 03/07/22 03/07/22 mcg/dose blistr powdr for inhalation (Advair Diskus) furosemide 20 mg tablet 20 mg PO QAM 03/07/22 03/07/22 iron,carbonyl 65 mg-vitamin C 125 1 tab PO DAILY 03/07/22 03/07/22 mg tablet,delayed release (Vitron-C) oxycodone 5 mg tablet 5 mg PO BID PRN pain 03/07/22 03/07/22 prednisone 20 mg tablet 40 mg PO DAILY 03/07/22 03/07/22 Results & Data (ED) Vital Signs Vital Signs - 24 hr 03/07/22 20:35 03/07/22 21:52 03/07/22 22:00 Temperature 36.6 C Temperature Source Oral Pulse Rate 81 115 H 86 Pulse Rate from SpO2 Sensor 86 81 Pulse Rhythm Regular Pulse Strength Normal Respiratory Rate 24 21 19 Respiratory Effort / Characteristics Non-Labored Spontaneous Respiratory Depth Normal Respiratory Pattern Regular Blood Pressure 98/56 L Blood Pressure Mean 70 Blood Pressure Position Sitting Pulse Oximetry 98 100 100 Oxygen Delivery Method Nasal Cannula Oxygen Flow Rate 2 Fraction of Inspired Oxygen Sepsis Recent Fever Within 48 Hours No Sepsis New/Unexplained Change in Mental Status No Sepsis Action Taken by Nursing No Action Required 03/07/22 22:01 03/07/22 22:01 03/07/22 22:30 Temperature Temperature Source Pulse Rate 153 H 118 H Pulse Rate from SpO2 Sensor 83 Pulse Rhythm Pulse Strength Respiratory Rate 21 16 Respiratory Effort / Characteristics Respiratory Depth Respiratory Pattern Blood Pressure 103/64 Blood Pressure Mean 77 Blood Pressure Position Pulse Oximetry 94 Oxygen Delivery Method Oxygen Flow Rate Fraction of Inspired Oxygen Sepsis Recent Fever Within 48 Hours Sepsis New/Unexplained Change in Mental Status Sepsis Action Taken by Nursing 03/07/22 22:33 03/07/22 22:33 03/07/22 21:15 Temperature Temperature Source Pulse Rate 117 H 179 H Pulse Rate from SpO2 Sensor 118 H Pulse Rhythm Pulse Strength Respiratory Rate 24 18 Respiratory Effort / Characteristics Respiratory Depth Respiratory Pattern Blood Pressure 113/48 L 113/48 L Blood Pressure Mean 69 69 Blood Pressure Position Pulse Oximetry 100 100 Oxygen Delivery Method Oxygen Flow Rate Fraction of Inspired Oxygen 50 Sepsis Recent Fever Within 48 Hours Sepsis New/Unexplained Change in Mental Status Sepsis Action Taken by Nursing 03/07/22 23:15 03/07/22 22:45 03/07/22 22:15 Temperature Temperature Source Pulse Rate Pulse Rate from SpO2 Sensor Pulse Rhythm Pulse Strength Respiratory Rate 22 Respiratory Effort / Characteristics Short of Breath Gasping/Agonal Labored Short of Breath Non-Labored Spontaneous Respiratory Depth Respiratory Pattern Blood Pressure Blood Pressure Mean Blood Pressure Position Pulse Oximetry 100 80 L 94 Oxygen Delivery Method BiPAP Room Air Nasal Cannula Oxygen Flow Rate Fraction of Inspired Oxygen Sepsis Recent Fever Within 48 Hours Sepsis New/Unexplained Change in Mental Status Sepsis Action Taken by Nursing 03/07/22 23:00 03/07/22 23:30 03/07/22 23:31 Temperature Temperature Source Pulse Rate 135 H 88 86 Pulse Rate from SpO2 Sensor 90 Pulse Rhythm Pulse Strength Respiratory Rate 22 17 18 Respiratory Effort / Characteristics Respiratory Depth Respiratory Pattern Blood Pressure 94/61 L Blood Pressure Mean 72 Blood Pressure Position Pulse Oximetry 100 100 Oxygen Delivery Method BiPAP Oxygen Flow Rate Fraction of Inspired Oxygen Sepsis Recent Fever Within 48 Hours Sepsis New/Unexplained Change in Mental Status Sepsis Action Taken by Nursing 03/07/22 23:31 Temperature Temperature Source Pulse Rate 86 Pulse Rate from SpO2 Sensor 87 Pulse Rhythm Pulse Strength Respiratory Rate 20 Respiratory Effort / Characteristics Respiratory Depth Respiratory Pattern Blood Pressure Blood Pressure Mean Blood Pressure Position Pulse Oximetry 100 Oxygen Delivery Method Oxygen Flow Rate Fraction of Inspired Oxygen Sepsis Recent Fever Within 48 Hours Sepsis New/Unexplained Change in Mental Status Sepsis Action Taken by Nursing Laboratory Data Result diagrams: 03/07/22 20:56 03/07/22 20:56 Lab Results 03/07/22 03/07/22 03/07/22 Range/Units 20:56 20:56 20:56 WBC 5.94 (4.8-10.8) K/ul RBC 2.58 L (3.93-5.22) M/uL Hgb 9.0 L (12.0-16.0) g/dl POC Hgb (12.0-16.0) g/dl Hct 27.8 L (34.1-44.9) % POC Hct (37-47) % MCV 107.8 H (80.0-100.0) fL MCH 34.9 H (25.0-34.0) pg MCHC 32.4 (32.0-36.0) g/dL RDW Std Deviation 56.5 H (36.4-46.3) fL RDW Coeff of Vijay 14.3 (11.5-14.5) % Plt Count 205 (130-400) K/uL MPV 10.6 (9.4-12.3) fL Immature Gran % (Auto) 0.2 % Neut % (Auto) 54.7 % Lymph % (Auto) 27.6 % Rad[place] % (Auto) 8.1 % Eos % (Auto) 8.9 % Baso % (Auto) 0.5 % Neut # (Auto) 3.25 (1.4-6.5) K/uL Lymph # (Auto) 1.64 (1.2-3.4) K/uL [place] # (Auto) 0.48 (0.24-0.82) K/uL Eos # (Auto) 0.53 H (0-0.50) K/uL Baso # (Auto) 0.03 (0-0.2) K/uL Immature Gran # (Auto) 0.01 (0.00-0.02) K/uL PT 53.7 H (9.0-12.0) Seconds INR 5.5 H (0.9-1.1) APTT 49.9 H* (21.0-31.0) Seconds PTT Ratio 1.8 POC pH (7.35-7.45) POC pCO2 (35-46) mmHg POC pO2 (80-95) mmHg POC HCO3 (19-24) louis/L POC Total CO2 (24-31) mmol/L POC Base Excess (-9-1.8) louis/L POC ABG O2 Sat (90-95) % POC Sodium (135-144) mmol/L Sodium 138 (136-145) mmol/L POC Potassium (3.3-5.0) mmol/L Potassium 3.9 (3.5-5.1) mmol/L Chloride 103 (98-107) mmol/L Carbon Dioxide 27 (21-32) mmol/L Anion Gap 8 (3-11) BUN 31 H (6-23) mg/dl Creatinine 1.82 H (0.6-1.2) mg/dl Est Cr Clr Drug Dosing 27.4 ml/min Est GFR ( Amer) 30.1 ml/min Est GFR (Non-Af Amer) 26.0 ml/min BUN/Creatinine Ratio 17.0 (10-20) Glucose 97 (70-99(Fasting)) mg/dl Lactate (0.4-2.0) mmol/L Calcium 8.1 L (8.5-10.1) mg/dl Magnesium 1.5 L (1.7-2.4) mg/dl Total Bilirubin 0.6 (0.2-1.0) mg/dl AST 19 (13-39) U/L ALT 7 (7-52) U/L Alkaline Phosphatase 77 (34-104) U/L Troponin I High Sens 22.3 H (0-14) pg/ml Total Protein 5.8 L (6.0-8.3) gm/dl Albumin 2.8 L (3.4-5.0) gm/dl Globulin 3.0 (2.5-4.0) gm/dl Albumin/Globulin Ratio 0.9 (0.9-2) Procalcitonin (0-0.5) ng/ml SARS-CoV-2, RNA, NAAT (NEGATIVE) 03/07/22 03/07/2203/07/22 Range/Units 20:56 21:37 21:42 WBC (4.8-10.8) K/ul RBC (3.93-5.22) M/uL Hgb (12.0-16.0) g/dl POC Hgb (12.0-16.0) g/dl Hct (34.1-44.9) % POC Hct (37-47) % MCV (80.0-100.0) fL MCH (25.0-34.0) pg MCHC (32.0-36.0) g/dL RDW Std Deviation (36.4-46.3) fL RDW Coeff of Vijay (11.5-14.5) % Plt Count (130-400) K/uL MPV (9.4-12.3) fL Immature Gran % (Auto) % Neut % (Auto) % Lymph % (Auto) % Rad[place] % (Auto) % Eos % (Auto) % Baso % (Auto) % Neut # (Auto) (1.4-6.5) K/uL Lymph # (Auto) (1.2-3.4) K/uL [place] # (Auto) (0.24-0.82) K/uL Eos # (Auto) (0-0.50) K/uL Baso # (Auto) (0-0.2) K/uL Immature Gran # (Auto) (0.00-0.02) K/uL PT (9.0-12.0) Seconds INR (0.9-1.1) APTT (21.0-31.0) Seconds PTT Ratio POC pH (7.35-7.45) POC pCO2 (35-46) mmHg POC pO2 (80-95) mmHg POC HCO3 (19-24) louis/L POC Total CO2 (24-31) mmol/L POC Base Excess (-9-1.8) louis/L POC ABG O2 Sat (90-95) % POC Sodium (135-144) mmol/L Sodium (136-145) mmol/L POC Potassium (3.3-5.0) mmol/L Potassium (3.5-5.1) mmol/L Chloride (98-107) mmol/L Carbon Dioxide (21-32) mmol/L Anion Gap (3-11) BUN (6-23) mg/dl Creatinine (0.6-1.2) mg/dl Est Cr Clr Drug Dosing ml/min Est GFR ( Amer) ml/min Est GFR (Non-Af Amer) ml/min BUN/Creatinine Ratio (10-20) Glucose (70-99(Fasting)) mg/dl Lactate 1.7 (0.4-2.0) mmol/L Calcium (8.5-10.1) mg/dl Magnesium (1.7-2.4) mg/dl Total Bilirubin (0.2-1.0) mg/dl AST (13-39) U/L ALT (7-52) U/L Alkaline Phosphatase (34-104) U/L Troponin I High Sens (0-14) pg/ml Total Protein (6.0-8.3) gm/dl Albumin (3.4-5.0) gm/dl Globulin (2.5-4.0) gm/dl Albumin/Globulin Ratio (0.9-2) Procalcitonin 0.07 (0-0.5) ng/ml SARS-CoV-2, RNA, NAAT NEGATIVE (NEGATIVE) 03/07/22 Range/Units 23:09 WBC (4.8-10.8) K/ul RBC (3.93-5.22) M/uL Hgb (12.0-16.0) g/dl POC Hgb 10.5 L (12.0-16.0) g/dl Hct (34.1-44.9) % POC Hct 31 L (37-47) % MCV (80.0-100.0) fL MCH (25.0-34.0) pg MCHC (32.0-36.0) g/dL RDW Std Deviation (36.4-46.3) fL RDW Coeff of Vijay (11.5-14.5) % Plt Count (130-400) K/uL MPV (9.4-12.3) fL Immature Gran % (Auto) % Neut % (Auto) % Lymph % (Auto) % Rad[place] % (Auto) % Eos % (Auto) % Baso % (Auto) % Neut # (Auto) (1.4-6.5) K/uL Lymph # (Auto) (1.2-3.4) K/uL [place] # (Auto) (0.24-0.82) K/uL Eos # (Auto) (0-0.50) K/uL Baso # (Auto) (0-0.2) K/uL Immature Gran # (Auto) (0.00-0.02) K/uL PT (9.0-12.0) Seconds INR (0.9-1.1) APTT (21.0-31.0) Seconds PTT Ratio POC pH 7.29 L (7.35-7.45) POC pCO2 57 H (35-46) mmHg POC pO2 232 H (80-95) mmHg POC HCO3 27 H (19-24) louis/L POC Total CO2 29 (24-31) mmol/L POC Base Excess 0.0 (-9-1.8) louis/L POC ABG O2 Sat 100.0 H (90-95) % POC Sodium 136 (135-144) mmol/L Sodium (136-145) mmol/L POC Potassium 3.9 (3.3-5.0) mmol/L Potassium (3.5-5.1) mmol/L Chloride (98-107) mmol/L Carbon Dioxide (21-32) mmol/L Anion Gap (3-11) BUN (6-23) mg/dl Creatinine (0.6-1.2) mg/dl Est Cr Clr Drug Dosing ml/min Est GFR ( Amer) ml/min Est GFR (Non-Af Amer) ml/min BUN/Creatinine Ratio (10-20) Glucose (70-99(Fasting)) mg/dl Lactate (0.4-2.0) mmol/L Calcium (8.5-10.1) mg/dl Magnesium (1.7-2.4) mg/dl Total Bilirubin (0.2-1.0) mg/dl AST (13-39) U/L ALT (7-52) U/L Alkaline Phosphatase (34-104) U/L Troponin I High Sens (0-14) pg/ml Total Protein (6.0-8.3) gm/dl Albumin (3.4-5.0) gm/dl Globulin (2.5-4.0) gm/dl Albumin/Globulin Ratio (0.9-2) Procalcitonin (0-0.5) ng/ml SARS-CoV-2, RNA, NAAT (NEGATIVE) Administered Medications Discontinued Medications Albuterol (Albuterol 0.5% Neb Soln 2.5 Mg/0.5 Ml Vial) Confirm Administered Dose 2.5 mg .ROUTE .STK-MED ONE Stop: 03/07/22 22:34 Last Admin: 03/07/22 23:08 Dose: Not Given Documented By: HS Albuterol (Albuterol 0.083% Nebu Soln 3 Ml Vial) Confirm Administered Dose 2.5 mg .ROUTE .STK-MED ONE Stop: 03/07/22 22:35 Last Admin: 03/07/22 23:08 Dose: Not Given Documented By: HS Albuterol (Albut/Ipratrop 3mg/0.5mg Neb 3 Ml Vial) Confirm Administered Dose 3 ml .ROUTE .STK-MED ONE Stop: 03/07/22 22:35 Last Admin: 03/07/22 23:08 Dose: Not Given Documented By: HS Albuterol (Albuterol 0.083% Nebu Soln 3 Ml Vial) 10 mg NEB NOW STA; Protocol Stop: 03/07/22 22:35 Last Admin: 03/07/22 23:09 Dose: 10 mg Documented By: HS Ceftriaxone Sodium (Rocephin) 2,000 mg in 70 mls @ 140 mls/hr IV NOW STA Stop: 03/07/22 21:44 Last Infusion: 03/07/22 22:51 Dose: 0 mls/hr Documented By: Admin: 03/07/22 22:21 Dose: 140 mls/hr Documented By: HS Methylprednisolone (Methylprednisolone 40 Mg/Ml Vial) 40 mg IV NOW STA Stop: 03/07/22 22:35 Last Admin: 03/07/22 23:11 Dose: 40 mg Documented By: HS Discharge Plan Visit Data Chief Complaint: Weakness Stated Complaint: weakness ED Provider: Cj Moncada Discharge Problem: Acute respiratory distress, Weakness, COPD (chronic obstructive pulmonary disease) Forms Stand Alone Forms: [facility] [employer]Latex Prescriptions Prescriptions: No Action duloxetine 30 mg capsule,delayed release(DR/EC) 30 mg PO QAM Rx Instructions: TOTAL DOSE 90 MG--TAKES WITH 60 MG CAP. pantoprazole 40 mg tablet,delayed release (DR/EC) 40 mg PO DAILY levothyroxine 50 mcg tablet 50 mcg PO DAILYBB carvedilol 12.5 mg tablet 12.5 mg PO BID alendronate 70 mg tablet 70 mg PO WK Rx Instructions: TAKE THIS MEDICATION EVERY SATURDAY amitriptyline 25 mg tablet 25 mg PO HS montelukast 10 mg tablet 10 mg PO HS lisinopril 5 mg tablet 5 mg PO QAM albuterol sulfate [Ventolin HFA] 90 mcg/actuation Hfa Aerosol Inhaler 2 puff INHALATION Q4 PRN (Reason: Shortness Of Breath Or Wheezing) atorvastatin 20 mg tablet 20 mg PO DAILY sumatriptan succinate 100 mg tablet 100 mg PO UD PRN (Reason: Migraine Headache) albuterol sulfate 2.5 mg /3 mL (0.083 %) Solution For Nebulization 2.5 mg INHALATION Q4H PRN (Reason: Wheezing) cholecalciferol (vitamin D3) 25 mcg (1,000 unit) Capsule 25 mcg PO DAILY gabapentin 100 mg capsule 200 mg PO TID warfarin 5 mg Tablet See Rx Instructions .ROUTE .COMPLEX Rx Instructions: 5 mg orally; TAKES 5 MG EVERY DAY EXCEPT FRIDAYS, TAKES 7.5 MG. acetaminophen [Tylenol] 325 mg Tablet 650 mg PO Q6H PRN (Reason: PAIN/FEVER) prednisone 20 mg tablet 40 mg PO DAILY Rx Instructions: STARTED 03/05/22 FOR 5 DAYS. furosemide 20 mg tablet 20 mg PO QAM fluticasone propion-salmeterol [Advair Diskus] 100-50 mcg/dose Blister With Device 1 inh INHALATION BID duloxetine 60 mg capsule,delayed release(DR/EC) 60 mg PO QAM Rx Instructions: TOTAL DOSE 90 MG--TAKES WITH 30 MG CAP. Vitron-C 65 mg iron- 125 mg Tablet,Delayed Release (Dr/Ec) 1 tab PO DAILY oxycodone 5 mg tablet 5 mg PO BID PRN (Reason: pain) Referrals Referrals: Giorgoi Salas DO [Primary Care Provider] -
[2022-03-07 21:36] LABS: Basophils # (auto) 0.03 K/uL (0-0.2); Basophils % (auto) 0.5 %; Eosinophils # (auto) 0.53 K/uL (0-0.50); Eosinophils % (auto) 8.9 %; Hematocrit (blood only) 27.8 % (34.1-44.9); Immature Granulocytes # (auto) 0.01 K/uL (0.00-0.02); Immature Granulocytes % (auto) 0.2 %; Lymphocytes # (auto) 1.64 K/uL (1.2-3.4); Lymphocytes % (auto) 27.6 %; Mean Corpuscular Hemoglobin 34.9 pg (25.0-34.0); Mean Corpuscular Hgb Conc 32.4 g/dL (32.0-36.0); Mean Corpuscular Volume 107.8 fL (80.0-100.0); Mean Platelet Volume 10.6 fL (9.4-12.3); Monocytes # (auto) 0.48 K/uL (0.24-0.82); Monocytes % (auto) 8.1 %; Neutrophils # (auto) 3.25 K/uL (1.4-6.5); Neutrophils % (auto) 54.7 %; Platelet Count 205 K/uL (130-400); RDW Coefficient of Variation 14.3 % (11.5-14.5); RDW Standard Deviation 56.5 fL (36.4-46.3); Red Blood Count 2.58 M/uL (3.93-5.22); White Blood Count 5.94 K/ul (4.8-10.8)
[2022-03-07 22:02] LABS: Albumin Globulin Ratio 0.9 (0.9-2); Albumin Level 2.8 gm/dl (3.4-5.0); Bilirubin,Total 0.6 mg/dl (0.2-1.0); Calcium 8.1 mg/dl (8.5-10.1); Creatinine Clr Calc Pharmacy 27.4 ml/min; Est GFR (African American) 30.1 ml/min; INR 5.5 (0.9-1.1); Magnesium 1.5 mg/dl (1.7-2.4); Partial Thromboplastin Ratio 1.8; Potassium 3.9 mmol/L (3.5-5.1); Prothrombin Time 53.7 Seconds (9.0-12.0); Total Protein 5.8 gm/dl (6.0-8.3); Troponin I High Sensitivity 22.3 pg/ml (0-14)
[2022-03-07 22:07] LABS: Partial Thromboplastin Time 49.9 Seconds (21.0-31.0)
[2022-03-07] MEDS ORDERED: ALBUTEROL 0.5% NEB SOLN 2.5 MG/0.5 ML VIAL ONE (22:33)
[2022-03-07] MEDS ORDERED: ALBUT/IPRATROP 3MG/0.5MG NEB 3 ML VIAL ONE (22:34)
[2022-03-07] MEDS ORDERED: ALBUTEROL 0.083% NEBU SOLN 3 ML VIAL NEB STA (22:34)
[2022-03-07] MEDS ORDERED: ALBUTEROL 0.083% NEBU SOLN 3 ML VIAL ONE (22:34)
[2022-03-07 23:26] LABS: iSTAT Arterial Blood Gas HCO3 27 meg/L (19-24); iSTAT Arterial Blood Gas pCO2 57 mmHg (35-46); iSTAT Arterial Blood Gas pH 7.29 (7.35-7.45); iSTAT Arterial Blood Gas pO2 232 mmHg (80-95); iSTAT Carbon Dioxide 29 mmol/L (24-31); iSTAT Hematocrit 31 % (37-47); iSTAT Hemoglobin 10.5 g/dl (12.0-16.0); iSTAT Potassium 3.9 mmol/L (3.3-5.0); iSTAT Sodium 136 mmol/L (135-144)
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
[2022-03-08] MEDS ORDERED: ACETAMINOPHEN 325 MG TAB PO PRN (03:39)
[2022-03-08] MEDS ORDERED: POLYETHYLENE (MIRALAX) 17 GM PACK PO PRN (03:39)
[2022-03-08 04:08] LABS: Hemoglobin 9.8 g/dl (12.0-16.0); Mean Corpuscular Hemoglobin 36.2 pg (25.0-34.0); Mean Corpuscular Hgb Conc 32.7 g/dL (32.0-36.0); Mean Corpuscular Volume 110.7 fL (80.0-100.0); Mean Platelet Volume 9.7 fL (9.4-12.3); Platelet Count 209 K/uL (130-400); RDW Coefficient of Variation 14.4 % (11.5-14.5); Red Blood Count 2.71 M/uL (3.93-5.22)
[2022-03-08 04:34] LABS: Prothrombin Time 63.5 Seconds (9.0-12.0)
[2022-03-08 04:38] LABS: BUN Creatinine Ratio 18.6 (10-20); Calcium 8.4 mg/dl (8.5-10.1); Creatinine Clr Calc Pharmacy 28.2 ml/min; Est GFR (African American) 31.1 ml/min; Est GFR (Non-African American) 26.8 ml/min; Potassium 4.1 mmol/L (3.5-5.1)
[2022-03-08 04:47] LABS: INR 6.6 (0.9-1.1)
[2022-03-08] MEDS: methylPREDNISolone 40 MG in SYRINGE 0 ML IV SCH ×2 (04:50→12:45)
[2022-03-08] MEDS ORDERED: oxyCODONE HCL IR 5 MG TAB (IMMEDIATE RELEASE) PO PRN (06:10)
[2022-03-08] MEDS: LEVOTHYROXINE SODIUM 50 MCG TABLET PO SCH (06:47)
[2022-03-08] MEDS: MAGNESIUM SULFATE / D5W 1 GM/100 ML BAG IV SCH ×2 (06:48→07:46)
[2022-03-08] MEDS: ALBUT/IPRATROP 3MG/0.5MG NEB 3 ML VIAL NEB SCH ×4 (07:12→19:55)
--- NOTE | 2022-03-08 08:06 | XRay Report ---
XR chest 1V portable HISTORY: SEPSIS COMPARISON: Chest 01/24/2021. FINDINGS: No pneumothorax. No pleural effusions. The heart remains mildly enlarged. There is chronic elevation of the right hemidiaphragm. A few bibasilar linear densities favor scarring. This remains u nchanged. No new focal lung consolidations to suggest pneumonia. No evidence for pulmonary edema. Adv anced degenerative changes again noted within the shoulders. IMPRESSION: No significant change compared to the prior study. No acute process. ACT 112: Negative or not required by law. Electronically signed by: Clyde Jensen M.D. 03/08/2022 8:05 AM
[2022-03-08] MEDS ORDERED: NON-FORMULARY MEDICATION (Iron,Carbonyl-Vitamin C [Vitron-C] 65 mg iron- 125 mg Tablet,Del PO SCH (09:00)
[2022-03-08] MEDS: carvediloL 12.5 MG TAB PO SCH ×2 (09:41→20:52)
[2022-03-08] MEDS: DULoxetine HCL 60 MG CAP PO SCH (09:41)
[2022-03-08] MEDS: DULoxetine HCL 30 MG CAP PO SCH (09:41)
[2022-03-08] MEDS: FUROSEMIDE 20 MG TAB PO SCH (09:41)
[2022-03-08] MEDS: ATORVASTATIN 20 MG TAB PO SCH (09:42)
[2022-03-08] MEDS: PANTOprazole 40 MG TAB PO SCH (09:42)
[2022-03-08] MEDS: FLUTICASONE/VILANTEROL 100/25MCG 14 PUFFS/INHALER INH SCH (09:43)
[2022-03-08] MEDS: DOXYCYCLINE HYCLATE 100 MG CAP PO SCH ×2 (10:05→20:52)
[2022-03-08] MEDS: FERROUS SULFATE 325 MG TAB PO SCH (10:17)
[2022-03-08] MEDS: ASCORBIC ACID 500 MG TAB PO SCH (12:44)
[2022-03-08] MEDS ORDERED: NIFEdipine EXTENDED REL 30 MG TABCR PO STA (14:07)
--- NOTE | 2022-03-08 14:17 | Hospitalist Progress Note ---
Date of Service March 08, 2022 Assessment & Plan (1) Acute respiratory distress: Plan: - due to acute exacerbation of ashtma - initially on bipap which was weaned to RA - s/p IV solumedrol - continue prednisone x5 days - continue antibiotics for CAP for 5 days - monitor sats - restart inhalers (2) Weakness: Plan: - likely due to underlying pneumonia causing asthma exacerbation - improving with treatment as above (3) Hypomagnesemia: Plan: replete prn (4) Chronic anticoagulation: Plan: - on warfarin for pAF and history of DVT/PE - INR 6.6 so being help - daily INR while inpatient - consider changing to apixaban (5) Hypothyroidism: Plan: - continue home medications (6) DVT prophylaxis: Plan: - on warfarin with supratherapeutic INR Plan Ronen Terrazas MD [facility] Medicine Admission and Anticipated Discharge Date Admission Date: March 08, 2022 Subjective 81 yo F with a h/o asthma, HTN, HLD presented for weakness. Found to be in acute exacerbation of her asthma with likely underlying pneumonia. She was started on IV steroids, antibiotics, and required bipap initially. She was changed to PO prednisone and she was titrated to RA. This morning she reports feeling much better and breathing is much improved. She denies wheezing, cough, chest pain, shortness of breath, n/v/d, dysuria. Review of Systems Review of Systems: All systems reviewed & are unremarkable except as noted in Subjective Physical Exam Physical Exam: CONSTITUTIONAL: obese, vitals as above, generally well- appearing, NAD EYES: normal conjunctivae, no scleral icterus, ENT: external ear and nose normal, MM. Edentulous NECK: trachea midline, RESPIRATORY: clear to auscultation bilaterally, no crackles, rales or wheezes, normal respiratory effort CARDIOVASCULAR: regular rate and rhythm, S1 and 2 heard without murmurs, gallops or rubs, no JVD, no peripheral edema, CHEST: inspection of chest was normal GASTROINTESTINAL: soft, generalized tenderness, ND, no guarding MUSCULOSKELETAL: strength 5/5 throughout, head is normocephalic and atraumatic, SKIN: warm and dry, golfball sized hematoma in right lower leg posteriorly NEUROLOGIC: CN 2-12 grossly intact, no sensory deficit, normal cognition, normal speech, no tremor PSYCHIATRIC: alert cooperative and oriented to person, place and time. Results & Data Results & Data ([facility]) Vital Signs (Past 12 Hours) Vital Signs Temp Pulse Pulse Resp BP BP Pulse Ox 03/08/22 13:10 90 03/08/22 11:20 101 H 18 93 03/08/22 10:01 106 H 18 93 03/08/22 10:01 179/97 H 03/08/22 10:00 108 H 20 93 03/08/22 09:30 104 H 15 76 L 03/08/22 09:00 109 H 28 H 94 03/08/22 09:00 163/102 H 03/08/22 08:48 146/113 H 03/08/22 08:48 151 H 29 H 03/08/22 08:46 159/137 H 03/08/22 08:46 116 H 20 03/08/22 08:43 120 H 03/08/22 08:39 37 C 105 H 20 146/113 H 99 03/08/22 08:00 110 H 16 92 03/08/22 08:00 148/77 H 03/08/22 07:30 111 H 19 92 03/08/22 07:30 143/96 H 03/08/22 07:00 107 H 19 100 03/08/22 07:00 149/91 H 03/08/22 06:31 148/110 H 03/08/22 06:31 103 H 17 99 03/08/22 06:30 104 H 20 93 03/08/22 07:31 03/08/22 07:13 108 H 16 100 03/08/22 06:44 95 03/08/22 06:30 100 H 20 152/82 H 98 03/08/22 05:00 94 03/08/22 04:01 97 H 22 139/88 93 03/08/22 02:10 88 14 100 Pulse Ox O2 Del Method O2 Del Method O2 Flow Rate O2 Flow Rate FiO2 03/08/22 13:10 03/08/22 11:20 Room Air 03/08/22 10:01 03/08/22 10:01 03/08/22 10:00 03/08/22 09:30 03/08/22 09:00 03/08/22 09:00 03/08/22 08:48 03/08/22 08:48 03/08/22 08:46 03/08/22 08:46 03/08/22 08:43 03/08/22 08:39 Nasal Cannula 4 03/08/22 08:00 Nasal Cannula 4 03/08/22 08:00 03/08/22 07:30 Nasal Cannula 4 03/08/22 07:30 03/08/22 07:00 Nasal Cannula 4 03/08/22 07:00 03/08/22 06:31 03/08/22 06:31 Nasal Cannula 4 03/08/22 06:30 Nasal Cannula 4 03/08/22 07:31 91 Nasal Cannula 2 03/08/22 07:13 Nasal Cannula 3 03/08/22 06:44 Nasal Cannula 4 03/08/22 06:30 03/08/22 05:00 Nasal Cannula 4 03/08/22 04:01 Nasal Cannula 4 03/08/22 02:10 50 Laboratory Results Short CBC 03/07/22 03/08/22 Range/Units 20:56 03:59 WBC 5.94 6.50 (4.8-10.8) K/ul Hgb 9.0 L 9.8 L (12.0-16.0) g/dl Hct 27.8 L 30.0 L (34.1-44.9) % Plt Count 205 209 (130-400) K/uL BMP 03/07/22 03/08/22 20:56 03:59 Sodium 138 136 Potassium 3.9 4.1 Chloride 103 102 Carbon Dioxide 27 26 BUN 31 H 33 H Creatinine 1.82 H 1.77 H Glucose 97 117 H Calcium 8.1 L 8.4 L Liver Function 03/07/22 Range/Units 20:56 Total Bilirubin 0.6 (0.2-1.0) mg/dl AST 19 (13-39) U/L ALT 7 (7-52) U/L Alkaline Phosphatase 77 (34-104) U/L Albumin 2.8 L (3.4-5.0) gm/dl Diagnostic Findings Chest X-Ray 03/07/22 21:15 XR chest 1V portable HISTORY: SEPSIS COMPARISON: Chest 01/24/2021. FINDINGS: No pneumothorax. No pleural effusions. The heart remains mildly enlarged. There is chronic elevation of the right hemidiaphragm. A few bibasilar linear densities favor scarring. This remains unchanged. No new focal lung consolidations to suggest pneumonia. No evidence for pulmonary edema. Advanced degenerative changes again noted within the shoulders. IMPRESSION: No significant change compared to the prior study. No acute process. ACT 112: Negative or not required by law. Electronically signed by: Clyde Jensen M.D. 03/08/2022 8:05 AM Medications Administered Current Inpatient Medications Acetaminophen (Acetaminophen 325 Mg Tab) 650 mg PO Q4H PRN PRN Reason: Pain or Fever Stop: 04/07/22 03:38 Albuterol (Albut/Ipratrop 3mg/0.5mg Neb 3 Ml Vial) 3 ml NEB QIDR [facility]; Protocol Stop: 04/07/22 06:59 Last Admin: 03/08/22 11:20 Dose: 3 ml Amitriptyline HCl (Amitriptyline Hcl 25 Mg Tab) 25 mg PO HS [facility] Stop: 04/07/22 20:59 Ascorbic Acid (Ascorbic Acid 500 Mg Tab) 250 mg PO DAILY@1100 [facility] Stop: 04/07/22 10:59 Last Admin: 03/08/22 12:44 Dose: 250 mg Atorvastatin Calcium (Atorvastatin 20 Mg Tab) 20 mg PO DAILY [facility] Stop: 04/07/22 08:59 Last Admin: 03/08/22 09:42 Dose: 20 mg Carvedilol (Carvedilol 12.5 Mg Tab) 12.5 mg PO BID [facility] Stop: 04/07/22 08:59 Last Admin: 03/08/22 09:41 Dose: 12.5 mg Doxycycline Hyclate (Doxycycline Hyclate 100 Mg Cap) 100 mg PO BID [facility] Stop: 03/15/22 08:59 Last Admin: 03/08/22 10:05 Dose: 100 mg Duloxetine HCl (Duloxetine Hcl 60 Mg Cap) 60 mg PO QAM [facility] Stop: 04/07/22 08:59 Last Admin: 03/08/22 09:41 Dose: 60 mg Duloxetine HCl (Duloxetine Hcl 30 Mg Cap) [facility] Stop: 04/07/22 08:59 Last Admin: 03/08/22 09:41 Dose: 30 mg Ferrous Sulfate (Ferrous Sulfate 325 Mg Tab) 325 mg PO DAILY@1100 [facility] Stop: 04/07/22 10:59 Last Admin: 03/08/22 10:17 Dose: 325 mg Fluticasone/Vilanterol (Fluticasone/Vilanterol 100/25mcg 14 Puffs/Inhaler) 1 puffs INH DAILY [facility] Stop: 04/07/22 08:59 Last Admin: 03/08/22 09:43 Dose: 1 puffs Furosemide (Furosemide 20 Mg Tab) 20 mg PO QAM [facility] Stop: 04/07/22 08:59 Last Admin: 03/08/22 09:41 Dose: 20 mg Levothyroxine Sodium (Levothyroxine Sodium 50 Mcg Tablet) 50 mcg PO DAILYBB [facility] Stop: 04/07/22 06:29 Last Admin: 03/08/22 06:47 Dose: 50 mcg Montelukast Sodium (Montelukast Sodium 10 Mg Tablet) 10 mg PO HS [facility] Stop: 04/07/22 20:59 Nifedipine (Nifedipine Extended Rel 30 Mg Tabcr) 30 mg PO QAM [facility] Stop: 04/08/22 08:59 Oxycodone HCl (Oxycodone Hcl Ir 5 Mg Tab (Immediate Release)) 5 mg PO BID PRN PRN Reason: moderate or severe pain Stop: 03/22/22 06:09 Last Admin: 03/08/22 09:40 Dose: 5 mg Pantoprazole Sodium (Pantoprazole 40 Mg Tab) 40 mg PO DAILY [facility] Stop: 04/07/22 08:59 Last Admin: 03/08/22 09:42 Dose: 40 mg Polyethylene Glycol (Polyethylene (Miralax) 17 Gm Pack) 17 gm PO DAILY PRN PRN Reason: Constipation Stop: 04/07/22 03:38 Prednisone (Prednisone 20 Mg Tab) 40 mg PO DAILY [facility] Stop: 03/12/22 00:59
[2022-03-08] MEDS ORDERED: LACTATED RINGER'S 1,000 ML IV ONE (16:56)
[2022-03-08] MEDS ORDERED: AMITRIPTYLINE HCL 25 MG TAB PO SCH (21:00)
[2022-03-08] MEDS ORDERED: NIFEdipine EXTENDED REL 30 MG TABCR PO SCH (21:00)
[2022-03-08] MEDS ORDERED: MONTELUKAST SODIUM 10 MG TABLET PO SCH (21:00)
--- NOTE | 2022-03-08 22:05 | Electrocardiogram Report ---
Test Reason : Blood Pressure : / mmHG Vent. Rate : 094 BPM Atrial Rate : 082 BPM P-R Int : 000 ms QRS Dur : 154 ms QT Int : 472 ms P-R-T Axes : 000 018 135 degrees QTc Int : 590 ms Poor data quality, interpretation may be adversely affected Sinus rhythm Left bundle branch block Abnormal ECG When compared with ECG of 24-JAN-2021 15:57, Left bundle branch block is now Present QT has lengthened Confirmed by Сергей Harmon ([id number]) on 03/08/2022 10:05:18 PM Referred By: REFERRED SELF Confirmed By:Сергей Harmon
--- NOTE | 2022-03-08 22:26 | Electrocardiogram Report ---
Test Reason : Blood Pressure : / mmHG Vent. Rate : 102 BPM Atrial Rate : 102 BPM P-R Int : 112 ms QRS Dur : 164 ms QT Int : 408 ms P-R-T Axes : 034 019 135 degrees QTc Int : 531 ms Sinus tachycardia Left bundle branch block Abnormal ECG When compared with ECG of 07-MAR-2022 20:54, QT has shortened Confirmed by Сергей Harmon ([id number]) on 03/08/2022 10:26:31 PM Referred By: REFERRED SELF Confirmed By:Сергей Harmon
[2022-03-09] MEDS: LEVOTHYROXINE SODIUM 50 MCG TABLET PO SCH (05:57)
[2022-03-09 06:32] LABS: INR 3.4 (0.9-1.1)
[2022-03-09 06:54] LABS: Albumin Level 2.7 gm/dl (3.4-5.0); BUN Creatinine Ratio 22.2 (10-20); Bilirubin,Total 0.5 mg/dl (0.2-1.0); Calcium 8.2 mg/dl (8.5-10.1); Creatinine Clr Calc Pharmacy 31.4 ml/min; Est GFR (African American) 35.7 ml/min; Est GFR (Non-African American) 30.8 ml/min; Globulin 2.7 gm/dl (2.5-4.0); Magnesium 1.9 mg/dl (1.7-2.4); Phosphorus 3.5 mg/dl (2.5-4.9); Potassium 4.2 mmol/L (3.5-5.1); Total Protein 5.4 gm/dl (6.0-8.3)
[2022-03-09] MEDS: ALBUT/IPRATROP 3MG/0.5MG NEB 3 ML VIAL NEB SCH ×2 (06:56→10:38)
[2022-03-09] MEDS ORDERED: LACTATED RINGER'S 500 ML IV ONE (07:00)
--- NOTE | 2022-03-09 07:00 | Hospitalist Progress Note ---
Date of Service March 09, 2022 Assessment & Plan (1) Acute respiratory distress: Plan: - due to acute exacerbation of ashtma - initially on bipap which was weaned to RA - s/p IV solumedrol - continue prednisone x5 days - continue antibiotics for CAP for 5 days - monitor sats - restart inhalers - patient is likely stable for discharge today to finish 5 day course of abx and prednisone pending PT/OT evaluation (2) Acute kidney injury: Plan: - Cr was 1.8 on admission with baseline around 1 from 06/2021 - likely in the setting of pneumonia as above - s/p IVF - Cr improving' - trend Cr, UOP (3) Weakness: Plan: - likely due to underlying pneumonia causing asthma exacerbation - improving with treatment as above (4) Hypomagnesemia: Plan: replete prn (5) Chronic anticoagulation: Plan: - 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 Found to be in acute exacerbation of her asthma with likely underlying pneumonia. She was started on IV steroids, antibiotics, and required bipap initially. She was changed to PO prednisone and she was titrated to RA. This morning she reports feeling much better and breathing is much improved. She denies wheezing, cough, chest pain, shortness of breath, n/v/d, dysuria. She does however complain of a headache as she has a history of migraines. Review of Systems Review of Systems: All systems reviewed & are unremarkable except as noted in Subjective Physical Exam Physical Exam: CONSTITUTIONAL: obese, vitals as above, generally well- appearing, NAD EYES: normal conjunctivae, no scleral icterus, ENT: external ear and nose normal, MM. Edentulous NECK: trachea midline, RESPIRATORY: clear to auscultation bilaterally, no crackles, rales or wheezes, normal respiratory effort CARDIOVASCULAR: regular rate and rhythm, S1 and 2 heard without murmurs, gallops or rubs, no JVD, no peripheral edema, CHEST: inspection of chest was normal GASTROINTESTINAL: soft, generalized tenderness, ND, no guarding MUSCULOSKELETAL: strength 5/5 throughout, head is normocephalic and atraumatic, SKIN: warm and dry, golfball sized hematoma in right lower leg posteriorly NEUROLOGIC: CN 2-12 grossly intact, no sensory deficit, normal cognition, normal speech, no tremor PSYCHIATRIC: alert cooperative and oriented to person, place and time. Results & Data Results & Data ([facility]) Vital Signs (Past 12 Hours) Vital Signs Temp Pulse Pulse Resp BP BP Pulse Ox 03/09/22 04:00 95 H 121/52 L 98 03/09/22 04:00 37.0 C 03/09/22 00:19 37.2 C 03/09/22 00:00 97 H 16 102/46 L 97 03/08/22 21:50 03/08/22 19:57 101 H 15 93 03/08/22 19:34 37.2 C 100 H 17 146/110 H 93 O2 Del Method O2 Flow Rate FiO2 03/09/22 04:00 Nasal Cannula 2 03/09/22 04:00 03/09/22 00:19 03/09/22 00:00 Nasal Cannula 2 03/08/22 21:50 Nasal Cannula 4 03/08/22 19:57 Room Air 21 03/08/22 19:34 Room Air Laboratory Results [facility] 03/09/22 05:33 Sodium 135 L Potassium 4.2 Chloride 103 Carbon Dioxide 26 BUN 35 H Creatinine 1.58 H Glucose 115 H Calcium 8.2 L Liver Function 03/09/22 Range/Units 05:33 Total Bilirubin 0.5 (0.2-1.0) mg/dl AST 13 (13-39) U/L ALT 6 L (7-52) U/L Alkaline Phosphatase 63 (34-104) U/L Albumin 2.7 L (3.4-5.0) gm/dl Medications Administered Current Inpatient Medications Acetaminophen (Acetaminophen 325 Mg Tab) 650 mg PO Q4H PRN PRN Reason: Pain or Fever Stop: 04/07/22 03:38 Last Admin: 03/08/22 20:51 Dose: 650 mg Albuterol (Albut/Ipratrop 3mg/0.5mg Neb 3 Ml Vial) 3 ml NEB QIDR TRACI; Protocol Stop: 04/07/22 06:59 Last Admin: 03/09/22 06:56 Dose: 3 ml Amitriptyline HCl (Amitriptyline Hcl 25 Mg Tab) 25 mg PO HS [facility] Stop: 04/07/22 20:59 Last Admin: 03/08/22 20:53 Dose: 25 mg Ascorbic Acid (Ascorbic Acid 500 Mg Tab) 250 mg PO DAILY@1100 [facility] Stop: 04/07/22 10:59 Last Admin: 03/08/22 12:44 Dose: 250 mg Atorvastatin Calcium (Atorvastatin 20 Mg Tab) 20 mg PO DAILY TRACI Stop: 04/07/22 08:59 Last Admin: 03/08/22 09:42 Dose: 20 mg Carvedilol (Carvedilol 12.5 Mg Tab) 12.5 mg PO BID [facility] Stop: 04/07/22 08:59 Last Admin: 03/08/22 20:52 Dose: 12.5 mg Doxycycline Hyclate (Doxycycline Hyclate 100 Mg Cap) 100 mg PO BID [facility] Stop: 03/15/22 08:59 Last Admin: 03/08/22 20:52 Dose: 100 mg Duloxetine HCl (Duloxetine Hcl 60 Mg Cap) 60 mg PO QAM [facility] Stop: 04/07/22 08:59 Last Admin: 03/08/22 09:41 Dose: 60 mg Duloxetine HCl (Duloxetine Hcl 30 Mg Cap) 30 mg PO QAM [facility] Stop: 04/07/22 08:59 Last Admin: 03/08/22 09:41 Dose: 30 mg Ferrous Sulfate (Ferrous Sulfate 325 Mg Tab) 325 mg PO DAILY@1100 [facility] Stop: 04/07/22 10:59 Last Admin: 03/08/22 10:17 Dose: 325 mg Fluticasone/Vilanterol (Fluticasone/Vilanterol 100/25mcg 14 Puffs/Inhaler) 1 puffs INH DAILY TRACI Stop: 04/07/22 08:59 Last Admin: 03/08/22 09:43 Dose: 1 puffs Furosemide (Furosemide 20 Mg Tab) 20 mg PO QAM [facility] Stop: 04/07/22 08:59 Last Admin: 03/08/22 09:41 Dose: 20 mg Lactated Ringer's (Lr) 500 mls @ 250 mls/hr IV .Q2H ONE Stop: 03/09/22 08:59 Last Admin: 03/09/22 07:18 Dose: 250 mls/hr Levothyroxine Sodium (Levothyroxine Sodium 50 Mcg Tablet) 50 mcg PO DAILYBB [facility] Stop: 04/07/22 06:29 Last Admin: 03/09/22 05:57 Dose: 50 mcg Montelukast Sodium (Montelukast Sodium 10 Mg Tablet) 10 mg PO HS TRACI Stop: 04/07/22 20:59 Last Admin: 03/08/22 20:53 Dose: 10 mg Nifedipine (Nifedipine Extended Rel 30 Mg Tabcr) 30 mg PO HS [facility]ACI Stop: 04/07/22 20:59 Last Admin: 03/08/22 21:05 Dose: 30 mg Oxycodone HCl (Oxycodone Hcl Ir 5 Mg Tab (Immediate Release)) 5 mg PO BID PRN PRN Reason: moderate or severe pain Stop: 03/22/22 06:09 Last Admin: 03/08/22 09:40 Dose: 5 mg Pantoprazole Sodium (Pantoprazole 40 Mg Tab) 40 mg PO DAILY TRACI Stop: 04/07/22 08:59 Last Admin: 03/08/22 09:42 Dose: 40 mg Polyethylene Glycol (Polyethylene (Miralax) 17 Gm Pack) 17 gm PO DAILY PRN PRN Reason: Constipation Stop: 04/07/22 03:38 Prednisone (Prednisone 20 Mg Tab) 40 mg PO DAILY TRACI Stop: 03/12/22 00:59
[2022-03-09 07:04] LABS: Thyroid Stimulating Hormone 0.248 uIu/ml (0.300-4.500)
[2022-03-09 07:36] LABS: T4 Free Thyroxine 1.27 ng/dl (0.61-1.60)
[2022-03-09] MEDS: DULoxetine HCL 30 MG CAP PO SCH (08:55)
[2022-03-09] MEDS: PANTOprazole 40 MG TAB PO SCH (08:55)
[2022-03-09] MEDS: DULoxetine HCL 60 MG CAP PO SCH (08:56)
[2022-03-09] MEDS: FUROSEMIDE 20 MG TAB PO SCH (08:56)
[2022-03-09] MEDS: carvediloL 12.5 MG TAB PO SCH (08:57)
[2022-03-09] MEDS: ATORVASTATIN 20 MG TAB PO SCH (08:57)
[2022-03-09] MEDS: DOXYCYCLINE HYCLATE 100 MG CAP PO SCH (08:57)
[2022-03-09] MEDS: FLUTICASONE/VILANTEROL 100/25MCG 14 PUFFS/INHALER INH SCH (08:58)
[2022-03-09] MEDS ORDERED: NIFEdipine EXTENDED REL 30 MG TABCR PO SCH (09:00)
[2022-03-09] MEDS ORDERED: predniSONE 20 MG TAB PO SCH (09:00)
[2022-03-09] MEDS: FERROUS SULFATE 325 MG TAB PO SCH (12:09)
[2022-03-09] MEDS: ASCORBIC ACID 500 MG TAB PO SCH (12:09)
--- NOTE | 2022-03-09 15:08 | Discharge Summary ---
Date of Service March 09, 2022 Admission HPI Per Admitting Provider 81 yo F with a h/o asthma presented for weakness. Dysuria and urinary urgency was present intermittently for 2 months. She was slightly hypotensive with systolic pressure in the 90s. She was laid flat for an attempted straight catheterization for a UA and she became short of breath and hypoxic. She was placed on a nonrebreather and had significant wheezing and was not moving air well. She was placed on BIPAP and given neb treatments with improvements. ABG revealed hypercarbia and respiratory acidosis. CXR was clear of any briseida effusions, pulmonary edema or pneumonia on wet read. She is feeling improved after BIPAP and feels that her breathing is better Chest pain is present and is intermittent since yesterday, it is present now "a little bit". She states she rubs it and then it goes away. +cough with intermittent yellow sputum has bruises on her legs marisel on the right and she doesn't know what happened There are bruises on her left toes and she states she doesn't knw what happened here iether but she probably hit them on something. Admission Exam Per Admitting Provider CONSTITUTIONAL: obese, vitals as above, generally well-appearing, NAD EYES: normal conjunctivae, no scleral icterus, ENT: external ear and nose normal, mucous membranes are dry but she just came off the BIPAP mask, also. Edentulous NECK: trachea midline, RESPIRATORY: clear to auscultation bilaterally, no crackles, rales or wheezes, normal respiratory effort CARDIOVASCULAR: regular rate and rhythm, S1 and 2 heard without murmurs, gallops or rubs, no JVD, no peripheral edema, CHEST: inspection of chest was normal GASTROINTESTINAL: soft, generalized tenderness, ND, no guarding MUSCULOSKELETAL: strength 5/5 throughout, head is normocephalic and atraumatic, SKIN: warm and dry, golfball sized hematoma in right lower leg posteriorly NEUROLOGIC: CN 2-12 grossly intact, no sensory deficit, normal cognition, normal speech, no tremor PSYCHIATRIC: alert cooperative and oriented to person, place and time. Principal Diagnosis acute asthma exacerbation likely due to pneumonia Discharge Exam Constitutional well developed, well nourished and + obese; not ill appearing Eyes PERRL, conjunctivae normal, anicteric sclerae ENMT external ear and nose normal, oropharynx normal Neck trachea midline, no thyromegaly Respiratory no respiratory distress Auscultation: lungs clear to auscultation bilaterally, + diminished lung sounds and + crackles (Minimal crackles right base) Cardiovascular Rate/Rhythm: regular rate and regular rhythm Heart Sounds: no murmur Extremities: + edema (Trace edema bilaterally) Gastrointestinal (Abdomen) Inspection/Auscultation: normal bowel sounds; abdomen not distended Percussion/Palpation: abdomen soft; abdomen nontender Psychiatric A+Ox3, euthymic affect Lymphatic no cervical or axillary lymphadenopathy Discharge Data Allergies Allergy/AdvReac Type Severity Reaction Status Date / Time aspirin Allergy Unknown Unknown Verified 03/07/22 22:29 Sulfa (Sulfonamide Allergy Unknown Unknown Verified 03/07/22 22:29 Antibiotics) Consultations 03/07/22 23:18 ED Decision to Admit Stat Hospital Course (1) Acute respiratory distress: - due to acute exacerbation of ashtma - initially on bipap which was weaned to RA - s/p IV solumedrol - continue prednisone x5 days - continue antibiotics for CAP for 5 days - monitor sats - restart inhalers - patient is likely stable for discharge today to finish 5 day course of abx and prednisone pending PT/OT evaluation (2) Acute kidney injury: - Cr was 1.8 on admission with baseline around 1 from 06/2021 - likely in the setting of pneumonia as above - s/p IVF - Cr improving' - trend Cr, UOP (3) Weakness: - likely due to underlying pneumonia causing asthma exacerbation - improving with treatment as above (4) Hypomagnesemia: replete prn (5) Chronic anticoagulation: - 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 Found to be in acute exacerbation of her asthma with likely underlying pneumonia. She was started on IV steroids, antibiotics, and required bipap initially. She was changed to PO prednisone and she was titrated to RA. She wsa sent home on po antibiotics and prednisone to complete 5 day course. AC was switched to apixaban for easier dosing and monitoring. Total Time Total Time Spent Total Time Spent (In Minutes): 25 minutes. Total Time Includes: Examination of the Patient, Discharge Planning and Medication Reconciliation Discharge Plan Discharge Items Patient Disposition: Home - Home Health Services Reason For Visit: WEAKNESS, SOB Discharge Diagnosis: acute COPD exacerbation Condition on Discharge: Fair Activity: Resume your previous activity Non-emergency contact: Primary Care Provider, Slab Stripper, Front Desk Receptionist and Billing Typist Call non-emergency contact if: you have any medication questions and your symptoms worsen Follow-up/Referrals: Giorgio Salas, [Primary Care Provider] - Diet: Heart Healthy Addtl Attending Provider Instructions: You were admitted for exacerbation of your COPD likely due to a pneumonia. You received IV antibiotics and steroids as well as oxygen support. You improved and did not need oxygen anymore. You saw PT and want to resume your home physical therapy regimen. You will need to finish 3 more days of steroids and antibiotics. Your blood thinner was switched to Eliquis (apixaban) 2.5mg 2x/day for easier administration. Please follow up with your Primary Care doctor, Slab Stripper, and Billing Typist within 1 week of discharge if possible. You also should see a local area network systems adminstrator. Your Lisinopril was held due to mild decrease in kidney function. You should have repeat labs with your follow up to primary care and restart if appropriate by your doctor. Pending Studies at Discharge: No Stand-Alone Forms: My [facility], Smoking Cessation Medications and DC Order Prescriptions: New doxycycline hyclate 100 mg Capsule 100 mg PO BID Qty: 8 0RF ferrous sulfate 325 mg (65 mg iron) Tablet,Delayed Release (Dr/Ec) 325 mg PO .every other day Qty: 30 0RF nifedipine [Procardia XL] 30 mg Tablet Extended Release 24 Hr 30 mg PO HS Qty: 30 0RF prednisone 20 mg Tablet 40 mg PO DAILY Qty: 4 0RF ascorbic acid (vitamin C) [Vitamin C] 500 mg Tablet 250 mg PO DAILY@1100 Qty: 20 0RF apixaban 2.5 mg tablet 2.5 mg PO BID Qty: 60 0RF oxycodone 5 mg Tablet 5 mg PO BID PRN (Reason: pain) Qty: 20 0RF Continued duloxetine 30 mg capsule,delayed release(DR/EC) 30 mg PO QAM Rx Instructions: TOTAL DOSE 90 MG--TAKES WITH 60 MG CAP. pantoprazole 40 mg tablet,delayed release (DR/EC) 40 mg PO DAILY levothyroxine 50 mcg tablet 50 mcg PO DAILYBB carvedilol 12.5 mg tablet 12.5 mg PO BID alendronate 70 mg tablet 70 mg PO WK Rx Instructions: TAKE THIS MEDICATION EVERY SATURDAY amitriptyline 25 mg tablet 25 mg PO HS montelukast 10 mg tablet 10 mg PO HS albuterol sulfate [Ventolin HFA] 90 mcg/actuation Hfa Aerosol Inhaler 2 puff INHALATION Q4 PRN (Reason: Shortness Of Breath Or Wheezing) atorvastatin 20 mg tablet 20 mg PO DAILY sumatriptan succinate 100 mg tablet 100 mg PO UD PRN (Reason: Migraine Headache) albuterol sulfate 2.5 mg /3 mL (0.083 %) Solution For Nebulization 2.5 mg INHALATION Q4H PRN (Reason: Wheezing) cholecalciferol (vitamin D3) 25 mcg (1,000 unit) Capsule 25 mcg PO DAILY gabapentin 100 mg capsule 200 mg PO TID acetaminophen [Tylenol] 325 mg Tablet 650 mg PO Q6H PRN (Reason: PAIN/FEVER) furosemide 20 mg tablet 20 mg PO QAM fluticasone propion-salmeterol [Advair Diskus] 100-50 mcg/dose Blister With Device 1 inh INHALATION BID duloxetine 60 mg capsule,delayed release(DR/EC) 60 mg PO QAM Rx Instructions: TOTAL DOSE 90 MG--TAKES WITH 30 MG CAP. Vitron-C 65 mg iron- 125 mg Tablet,Delayed Release (Dr/Ec) 1 tab PO DAILY Discontinued lisinopril 5 mg tablet 5 mg PO QAM warfarin 5 mg Tablet See Rx Instructions .ROUTE .COMPLEX Rx Instructions: 5 mg orally; TAKES 5 MG EVERY DAY EXCEPT FRIDAYS, TAKES 7.5 MG. oxycodone 5 mg tablet 5 mg PO BID PRN (Reason: pain) Discharge Orders: Discharge Order (Routine); Ordered 03/09/22 Ordered By: Ronen Terrazas Admission Data Admit Date/Time: 03/08/22 03:01 Attending Provider: Ronen Terrazas Admit Provider: Zuri Mercedes Primary Care Provider: Giorgio Salas Other Providers: Zuri Mercedes Other Interventions: Discharge Summary Assessment (RN) Last Done: 03/09/22 13:33
== END 2022-03-09 15:00 | disposition home health service (06) | DRG 202 ==
LOC: ED 20:42 → EDINP 03-08 03:01 → SUATTDRO 03-08 03:01 → 1E 03-08 04:01

== ENCOUNTER 2022-03-28 09:21 | Inpatient (IN) ==
[2022-03-28 09:57] LABS: Hematocrit (blood only) 26.3 % (34.1-44.9); Hemoglobin 8.5 g/dl (12.0-16.0); Mean Corpuscular Hemoglobin 36.2 pg (25.0-34.0); Mean Corpuscular Hgb Conc 32.3 g/dL (32.0-36.0); Mean Corpuscular Volume 111.9 fL (80.0-100.0); Platelet Count 244 K/uL (130-400); RDW Coefficient of Variation 14.9 % (11.5-14.5); RDW Standard Deviation 61.7 fL (36.4-46.3); Red Blood Count 2.35 M/uL (3.93-5.22); White Blood Count 5.72 K/ul (4.8-10.8)
[2022-03-28 10:16] LABS: BUN Creatinine Ratio 13.8 (10-20); Bilirubin,Total 0.9 mg/dl (0.2-1.0); Calcium 8.8 mg/dl (8.5-10.1); Creatinine Clr Calc Pharmacy 39.6 ml/min; Est GFR (African American) 44.9 ml/min; Est GFR (Non-African American) 38.7 ml/min; Globulin 2.9 gm/dl (2.5-4.0); Potassium 4.2 mmol/L (3.5-5.1); Total Protein 5.9 gm/dl (6.0-8.3)
[2022-03-28 10:26] LABS: Basophils # (auto) 0.04 K/uL (0-0.2); Basophils % (auto) 0.7 %; Eosinophils # (auto) 0.34 K/uL (0-0.50); Eosinophils % (auto) 5.9 %; Immature Granulocytes # (auto) 0.03 K/uL (0.00-0.02); Immature Granulocytes % (auto) 0.5 %; Lymphocytes # (auto) 1.58 K/uL (1.2-3.4); Lymphocytes % (auto) 27.6 %; Macrocytosis Present; Monocytes # (auto) 0.37 K/uL (0.24-0.82); Monocytes % (auto) 6.5 %; Neutrophils # (auto) 3.36 K/uL (1.4-6.5); Neutrophils % (auto) 58.8 %
--- NOTE | 2022-03-28 10:34 | XRay Report ---
XR chest 1V portable CLINICAL HISTORY: wheezing COMPARISON STUDY: Chest radiograph March 07, 2022. FINDINGS: Marked elevation of the right hemidiaphragm is again noted. There is no pneumothorax or ple ural effusion. Linear left basilar opacity favors atelectasis. Cardiomediastinal silhouette is stable . IMPRESSION: No acute cardiopulmonary findings. No significant change in appearance of the chest. ACT 112: Negative or not required by law. Electronically signed by: Shon Rushing M.D. 03/28/2022 10:33 AM
--- NOTE | 2022-03-28 11:00 | XRay Report ---
XR pelvis 1-2V routine CLINICAL HISTORY: fall COMPARISON: CT of the abdomen and pelvis January 10, 2021. FINDINGS: Sacroiliac joints and symphysis pubis are intact. No acute fracture within the pelvis or h ips is identified. Joint spaces are preserved. There is mild osteophytosis of the hips. IMPRESSION: No acute fracture within the pelvis or hips. ACT 112: Negative or not required by law. Electronically signed by: Shon Rushing M.D. 03/28/2022 10:59 AM
[2022-03-28] MEDS ORDERED: OPTIRAY 300 100mL IV ONE (11:03)
--- NOTE | 2022-03-28 11:06 | XRay Report ---
XR chest 1V portable CLINICAL HISTORY: fall COMPARISON STUDY: Chest radiograph March 28, 2022 at 9:58 AM. FINDINGS: Elevation of the right hemidiaphragm is again noted. Linear left basilar opacity reflects a telectasis. There is no pneumothorax or pleural effusion. Cardiac size is normal. Mediastinal contour s are normal. There is no evidence for pulmonary edema. Osteoarthritis of the glenohumeral joints is noted. IMPRESSION: No acute cardiopulmonary findings. Stable elevation of the right hemidiaphragm. ACT 112: Negative or not required by law. Electronically signed by: Shon Rushing M.D. 03/28/2022 11:04 AM
--- NOTE | 2022-03-28 11:16 | CT Scan Report ---
CT OF THE HEAD WITHOUT CONTRAST CLINICAL HISTORY: Fall. COMPARISON STUDY: Head CT January 24, 2021. TECHNIQUE: Helical axial images of the head were obtained without IV contrast. Automated exposure con trol was utilized for the study. A dose lowering technique was utilized adhering to the principles o f ALARA. FINDINGS: No acute intracranial hemorrhage, midline shift or mass effect is present. White matter hyp odensities are unchanged and represent small vessel disease. The ventricular system is unremarkable. The basal cisterns are patent. No extra-axial collections are present. There are no findings to sugge st acute dural sinus thrombosis or acute territorial infarct. No significant calvarial abnormalities are present. A left posterior scalp contusion and laceration is noted. No acute calvarial fracture. T here is trace fluid within the bilateral mastoid air cells. IMPRESSION: 1. No acute intracranial findings. No change in appearance of the brain. 2. Left posterior scalp laceration and contusion. No calvarial fracture. ACT 112: Negative or not required by law. Electronically signed by: Shon Rushing M.D. 03/28/2022 11:13 AM
--- NOTE | 2022-03-28 11:21 | CT Scan Report ---
CT cervical spine wo con CLINICAL HISTORY: fall TECHNIQUE: Multidetector row helical CT of the cervical spine was performed without administration of intravenous contrast. Coronal and sagittal reformations were obtained. Automated dose lowering techn iques and/or adjustment according to patient size were utilized for this exam. Comparison: None available at the time of this dictation. FINDINGS: No acute fractures or subluxations are identified. Degenerative changes are seen in the visualized sp ine. The alignment is normal. Soft tissues are unremarkable. IMPRESSION: Degenerative changes without evidence of acute bony injury. ACT 112: Negative or not required by law. Electronically signed by: Ricky Rosenbaum M.D. 03/28/2022 11:18 AM
--- NOTE | 2022-03-28 11:29 | CT Scan Report ---
CT abd pelvis IV con only CLINICAL HISTORY: fall TECHNIQUE: Helical axial images of the abdomen and pelvis were obtained and displayed. Automated dose lowering techniques and/or adjustment according to patient size were utilized for this exam. This e xam was performed with intravenous contrast. COMPARISON: Comparison is made to CT abdomen pelvis 01/10/2021 FINDINGS: Lower chest: Elevation of the right hemidiaphragm is seen. Liver: Unremarkable. No focal lesions are seen. Gallbladder and biliary tree: Patient is status post cholecystectomy. There is marked dilation of the common bile duct and intrahepatic bile ducts. Common bile duct measures up to 29 mm in diameter. Pancreas: Fatty replacement of the pancreas is seen. Spleen: Unremarkable. Adrenals: Unremarkable. Kidneys and ureters: A peripherally calcified cyst is again seen in the right upper pole. Kidneys are otherwise unremarkable. Bladder: Unremarkable. Reproductive organs: Unremarkable. Bowel: Unremarkable. Lymph nodes Retroperitoneal: Unremarkable. Pelvic: Unremarkable. Mesenteric: Unremarkable. Peritoneum: Normal. Vessels: Atherosclerotic calcifications are seen. Abdominal wall: Numerous abdominal wall calcifications are seen. These may represent dystrophic calci fications. Bones: Degenerative changes in the visualized spine. T12 deformity is unchanged from prior exam. IMPRESSION: No acute abnormality is seen. In particular, no evidence of acute fracture. Chronic deformity of T12 is noted. ACT 112: Negative or not required by law. Electronically signed by: Ricky Rosenbaum M.D. 03/28/2022 11:28 AM
[2022-03-28] MEDS ORDERED: XYLOCAINE 1%/SOD BICARB 20 ML VIAL INFIL ONE (12:24)
--- NOTE | 2022-03-28 15:43 | History & Physical Report ---
Date of Service March 28, 2022 Assessment & Plan (1) Recurrent falls: Plan: RECURRENT FALLS: CT head: L scalp laceration Cervical Spine CT: negative CT abd/pelvis: negative LIKELY FROM OXYCODONE DECONDITIONING Oxycodone started last January 2022, has been falling frequently, daily for the past week while walking, feels weak, dizziness, then falls takes oxycodone for generalized pain, some headaches STOP Oxycodone, PRN Tylenol for now, consider Tramadol when QT improves PT/OT evaluation will need to be careful as patient on Eliquis for A fib, history of PE/DVT FROM HYPOXIA WITH EXERTION? COPD/ASTHMA EXACERBATION was admitted 03/09/22 for COPD exacerbation, d/c on Prednisone and Doxycycline x 5 days still has cough, dyspnea on exertion, states she wears 02 at home all the time now (was only using while sleeping before) CT chest: pending Nebs q6h, Prednisone 40mg daily, Doxycycline BID, Mucinex Sputum culture: pending Covid test: pending will need 2 step o2 test on discharge HEAD LACERATION S/P FALL s/p mago at the ER hold Eliquis tonight, resume tomorrow if no active bleeding MILD TROPONIN ELEVATION no chest pain EKG no ischemia/infarct Trend Troponin x 2 PROLONGED QT QTc 526 hold Cymbalta, Amitriptyline repeat eKG in AM R KNEE PAIN (+) bruising knee xrays BL: pending R ANKLE PAIN, SWELLING ankle xray: pending check Doppler US to r/o DVT: pending CAD A FIB continue Carvedilol resume Eliquis tomorrow if no bleeding from laceration HTN continue Nifedipine, Lasix CKD 3 stable HYPOTHYROIDISM check TSH, Free T4 DEPRESSION QT prolonged hold Duloxetine, Amitriptyline repeat EKG tomorrow AM DVT PROPHYLAXIS resume Eliquis tomorrow if without bleeding from left scalp laceration CODE STATUS Full DISPOSITION lives with and son will likely need to transition to SNF plan of care discussed with patient in detail and at length all questions answered she is understanding, agreeable, comfortable with the plan of care History of Present Illness Chief Complaint: Recurrent Falls Primary Care Provider: Giorgio Salas DO 82 year old female with history of CAD, A fib on eliquis, HTN, CKD 3, Asthma/COPD, PE/DVT, Opioid Dependence, Hypothyroidism, etc presenting with recurrent falls. Patient was admitted to [facility] last 03/08- for COPD exacerbation. She finished a 5 day course of Prednisone and Doxycycline. As per patient, she has been feeling weak, lightheaded while walking for the past week, resulting to recurrent falls, mostly everyday. Today, she feel backwards while using her walker, hitting her head on the floor. no chest pain, palpitations She reports that she is still having dry cough, and some dyspnea- have been using her home O2 mostly all day (usually using at HS only). No fever/chills, chest pain, abdominal pain, nausea/vomiting, problems with urination or BM. No other symptoms. Allergies Allergy/AdvReac Type Severity Reaction Status Date / Time aspirin Allergy Unknown Unknown Verified 03/28/22 14: Sulfa (Sulfonamide Allergy Unknown Unknown Verified 03/28/22 14: Antibiotics) Home Medications Medication Instructions Recorded Confirmed Type albuterol sulfate 90 mcg/actuation 2 puff inhalation Q4 PRN Shortness 11/10/18 03/28/22 History aerosol inhaler (Ventolin HFA) Of Breath Or Wheezing alendronate 70 mg tablet 70 mg PO WK 11/10/18 03/28/22 History amitriptyline 25 mg tablet 25 mg PO HS 11/10/18 03/28/22 History carvedilol 12.5 mg tablet 12.5 mg PO BID 11/10/18 03/28/22 History montelukast 10 mg tablet 10 mg PO HS 11/10/18 03/28/22 History duloxetine 30 mg capsule,delayed 30 mg PO QAM 02/28/19 03/28/22 History release pantoprazole 40 mg tablet,delayed 40 mg PO DAILY 07/22/19 03/28/22 History release atorvastatin 20 mg tablet 20 mg PO DAILY 10/11/19 03/28/22 History levothyroxine 50 mcg tablet 50 mcg PO DAILYBB 01/15/20 03/28/22 History sumatriptan succinate 100 mg tablet 100 mg PO UD PRN Migraine Headache 06/27/20 03/28/22 History albuterol sulfate 2.5 mg/3 mL 2.5 mg inhalation Q4H PRN Wheezing 01/06/21 03/28/22 History (0.083 %) solution for nebulization cholecalciferol (vitamin D3) 25 25 mcg PO DAILY 01/06/21 03/28/22 History mcg (1,000 unit) capsule gabapentin 100 mg capsule 200 mg PO TID 07/07/21 03/28/22 History acetaminophen 325 mg tablet 650 mg PO Q6H PRN PAIN/FEVER 03/07/22 03/28/22 History (Tylenol) duloxetine 60 mg capsule,delayed 60 mg PO QAM 03/07/22 03/28/22 History release fluticasone 100 mcg-salmeterol 50 1 inh inhalation BID 03/07/22 03/28/22 History mcg/dose blistr powdr for inhalation (Advair Diskus) furosemide 20 mg tablet 20 mg PO QAM 03/07/22 03/28/22 History iron,carbonyl 65 mg-vitamin C 125 1 tab PO DAILY 03/07/22 03/28/22 History mg tablet,delayed release (Vitron-C) apixaban 2.5 mg tablet 2.5 mg PO BID #60 tabs 03/09/22 03/28/22 Rx ascorbic acid (vitamin C) 500 mg 250 mg PO DAILY@1100 #20 tabs 03/09/22 03/28/22 Rx tablet (Vitamin C) nifedipine 30 mg tablet,extended 30 mg PO HS #30 tabs 03/09/22 03/28/22 Rx release 24 hr (Procardia XL) oxycodone 5 mg tablet 5 mg PO BID PRN pain #20 tabs 03/09/22 03/28/22 Rx lisinopril 5 mg tablet 5 mg PO DAILY 03/28/22 03/28/22 History Past Med/Surg History Medical History Asthma USES PRN INH 1 X WK Atrial flutter PT COULD NOT CONFIRM Chronic anticoagulation Chronic left hip pain Diffuse myofascial pain syndrome History of DVT (deep vein thrombosis) RLE - 20 YEARS AGO FOLLOWING INJURY History of endometriosis History of VA (myocardial infarction) 2017 - FOLLOWS W/ DR. JACOBSEN History of pulmonary embolism Hypertension Hypothyroidism Migraine On anticoagulant therapy On home oxygen therapy 2 LPM 02 QHS Opioid dependence Osteoarthritis Osteoporosis Poor historian Pulmonary edema Pulmonary embolism (10/10/12) 20 YEARS AGO AFTER INJURY 30 YEARS AGO - POST OP CHOLEYCYSTECTOMY ON WARF[place]IN Sleep apnea NO DEVICE Surgical History History of appendectomy History of cardiac cath 2018 - [place] - NO STENTS History of cataract surgery History of section History of cholecystectomy History of colonoscopy History of esophagogastroduodenoscopy (EGD) History of left knee surgery History of tonsillectomy History of total abdominal hysterectomy and bilateral salpingo-oophorectomy History of tubal ligation Family History Father Esophageal cancer Social History Smoking Status: Never smoker Second Hand Exposure: Yes (FAMILY MEMBERS CURRENTLY SMOKE); Hx Alcohol Use: No Hx Substance Use: No Preferred Language: Yakut Communication Ability: Effective Visual Impairment: No Limitations Hearing Ability: Normal 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: No Beliefs That Will Affect Care: None marital status: Current Living Situation: Spouse Current Living Situation Comment: sonMinh current occupational status: retired Feels Safe at Home: Yes Assistive Devices: Hospital Bed, Lift Chair, Walker and Wheelchair Review of Systems Review of Systems: all noted and negative except for above Physical Exam Physical Exam: General- oriented x 3, not in distress, speaks in sentences with no effort or accessory muscle use appears weak Head- atraumatic Eyes- PERRL, EOMI, anicteric ENT- oropharynx clear Neck- supple, no JVD, no adenopathy, no thyromegaly; carotids +2/2, no bruits appreciated Lungs- (+) wheezing- mild, BL good air entry BL Heart- normal rate, regular rhythm; no murmur, no gallop, no rub appreciated Abdomen- normal bowel sounds, nondistended, soft, nontender, no masses or hepatosplenomegaly Extremities- (+) Bruising BL Knees (+) mild R lower leg and foot edema- no erythema, warmth, (+) mild tenderness Left Lower Ext:no pretibial edema, no calf tenderness; peripheral pulses intact Neuro- alert, oriented x 3; CN 2-12 grossly intact; motor 5/5 bilaterally;sensation 100% on all extremities; no other gross focal neurologic deficits Skin- warm & dry Results & Data Results & Data ([facility]) Vital Signs (Past 12 Hours) Vital Signs Temp Pulse Resp BP Pulse Ox O2 Del Method O2 Flow Rate 03/28/22 14:30 89 17 100 03/28/22 14:30 137/52 L 03/28/22 14:00 90 19 100 03/28/22 14:00 136/95 03/28/22 13:30 90 20 100 03/28/22 13:30 131/94 03/28/22 13:00 90 24 100 03/28/22 13:00 128/76 03/28/22 12:30 90 25 H 100 03/28/22 12:30 119/70 03/28/22 12:01 83 21 132/71 97 03/28/22 12:01 132/71 03/28/22 11:30 85 20 100 03/28/22 11:30 109/75 03/28/22 09:33 36.6 C 111 H 20 122/66 97 Nasal Cannula 2 all noted and reviewed including below Code Status & VTE Plan VTE Prophylaxis Plan VTE Prophylaxis will be ordered: Yes
--- NOTE | 2022-03-28 16:01 | XRay Report ---
XR knee RT 1 or 2V routine HISTORY: 82 years-old Female pain, fall, r/o fracture acute right knee pain status post fall COMPARISON: 07/07/2021 TECHNIQUE: 3 views of the right knee FINDINGS: Small joint effusion. Corticated ossifications anterior and lateral to the knee are redemonstrated. M ild lateral with moderate to severe patellofemoral and moderate medial compartment osteoarthritis. Ch ondrocalcinosis. Linear lucency of the medial tibial plateau is likely projectional. Arterial calcifi cations. IMPRESSION: 1. No definite acute fracture or dislocation. 2. Ill-defined linear lucency of the medial tibial plateau is likely projectional. A subtle acute fra cture is considered less likely. 3. Tricompartmental osteoarthritis with small joint effusion. ACT 112: Negative or not required by law. The above report was generated using voice recognition software. It may contain grammatical, syntax o r spelling errors. Electronically signed by: Demetrio Terrell M.D. 03/28/2022 4:00 PM
--- NOTE | 2022-03-28 16:01 | XRay Report ---
XR knee LT 1 or 2V routine CLINICAL HISTORY: Status post fall with left knee pain. COMPARISON STUDY: No previous studies for comparison. TECHNIQUE: 2 left knee views FINDINGS: Bones: There is no evidence for an acute fracture or dislocation. There is no lytic or blastic lesion . Joints: There is marked narrowing of the medial joint compartment with secondary degenerative changes . Mild to moderate narrowing is present involving the patellofemoral joint and lateral joint compartm ent. There is no evidence for an intra-articular effusion. Genu varus deformity is present. Soft tissues: There is no focal soft tissue abnormality. There is no radiopaque foreign body. IMPRESSION: 1. No acute osseous pathology. 2. Marked osteoarthritis. ACT 112: Negative or not required by law. Electronically signed by: Rajat Kuo M.D. 03/28/2022 3:59 PM
--- NOTE | 2022-03-28 16:02 | XRay Report ---
XR ankle RT 2V CLINICAL HISTORY: Status post fall with pain. COMPARISON STUDY: No previous studies for comparison. TECHNIQUE: 2 right ankle views FINDINGS: Bones: The bones are osteopenic. There is no evidence for an acute fracture or dislocation. There is no lytic or blastic lesion. Joints: The joint spaces are maintained. The bones are in anatomic alignment. Soft tissues: There is no focal soft tissue abnormality. Vascular calcification is seen within the so ft tissues. There is no radiopaque foreign body. IMPRESSION: 1. No acute osseous pathology. 2. Osteopenia ACT 112: Negative or not required by law. Electronically signed by: Rajat Kuo M.D. 03/28/2022 4:01 PM
--- NOTE | 2022-03-28 16:39 | CT Scan Report ---
CT chest diagnostic wo con CLINICAL HISTORY: Hypoxia and wheezing COMPARISON STUDY: Portable chest from 03/28/2022 CT DOSE: 378.99 mGycm TECHNIQUE: Standard CT of the Chest was performed without IV contrast. A dose lowering technique was utilized adhering to the principles of ALARA. FINDINGS: Airway: The airway is clear. No endobronchial lesion is identified. Lungs: There is asymmetric elevation of the right hemidiaphragm with crowding the bronchovascular mar kings at the right lung base. The lungs are otherwise clear of acute alveolar opacities, air bronchog naeem or pulmonary nodules. Pleura: There is no evidence for pleural effusion. There is no evidence for pneumothorax. Mediastinum: There is no evidence for pathologic adenopathy on these limited noncontrast images. The heart size is within normal limits. There is marked mitral annular calcification. The thoracic aorta is within normal limits. Atherosclerotic calcifications present. There is no evidence for pericardial effusion. Osseous structures: There is no acute osseous pathology. IMPRESSION: 1. Asymmetric elevation of the right hemidiaphragm with crowding the bronchovascular markings at the right lung base. 2. There is otherwise no acute chest disease on these noncontrast images. ACT 112: Negative or not required by law. Electronically signed by: Rajat Kuo M.D. 03/28/2022 4:37 PM
--- NOTE | 2022-03-28 16:46 | Emergency Department Note ---
History of Present Illness General Chief complaint: Fall Stated complaint: FALL, HEAD LAC Time Seen by Provider: 03/28/22 10:14 Source: patient and family History of Present Illness Provider complaint: Falls Location: head Maximum Pain Intensity: 9 Associated symptoms: + headaches; no chest pain, no cough, no fever/chills, no nausea/vomiting or no shortness of breath 82-year-old female presents emergency department for recurrent falls. Patient is on Eliquis. Family reports that the patient has fallen 4-5 times this week. Patient states she simply feels weak and then just falls. Patient did hit her head as laceration to the back of her head. No chest pain or difficulty breathing. No hematuria or dysuria. No melena or hematochezia. No fevers. Home Medications Medication Instructions Recorded Confirmed Type albuterol sulfate 90 mcg/actuation 2 puff inhalation Q4 PRN Shortness 11/10/18 03/28/22 History aerosol inhaler (Ventolin HFA) Of Breath Or Wheezing alendronate 70 mg tablet 70 mg PO WK 11/10/18 03/28/22 History amitriptyline 25 mg tablet 25 mg PO HS 11/10/18 03/28/22 History carvedilol 12.5 mg tablet 12.5 mg PO BID 11/10/18 03/28/22 History montelukast 10 mg tablet 10 mg PO HS 11/10/18 03/28/22 History duloxetine 30 mg capsule,delayed 30 mg PO QAM 02/28/19 03/28/22 History release pantoprazole 40 mg tablet,delayed 40 mg PO DAILY 07/22/19 03/28/22 History release atorvastatin 20 mg tablet 20 mg PO DAILY 10/11/19 03/28/22 History levothyroxine 50 mcg tablet 50 mcg PO DAILYBB 01/15/20 03/28/22 History sumatriptan succinate 100 mg tablet 100 mg PO UD PRN Migraine Headache 06/27/20 03/28/22 History albuterol sulfate 2.5 mg/3 mL 2.5 mg inhalation Q4H PRN Wheezing 01/06/21 03/28/22 History (0.083 %) solution for nebulization cholecalciferol (vitamin D3) 25 25 mcg PO DAILY 01/06/21 03/28/22 History mcg (1,000 unit) capsule gabapentin 100 mg capsule 200 mg PO TID 07/07/21 03/28/22 History acetaminophen 325 mg tablet 650 mg PO Q6H PRN PAIN/FEVER 03/07/22 03/28/22 History (Tylenol) duloxetine 60 mg capsule,delayed 60 mg PO QAM 03/07/22 03/28/22 History release fluticasone 100 mcg-salmeterol 50 1 inh inhalation BID 03/07/22 03/28/22 History mcg/dose blistr powdr for inhalation (Advair Diskus) furosemide 20 mg tablet 20 mg PO QAM 03/07/22 03/28/22 History iron,carbonyl 65 mg-vitamin C 125 1 tab PO DAILY 03/07/22 03/28/22 History mg tablet,delayed release (Vitron-C) apixaban 2.5 mg tablet 2.5 mg PO BID #60 tabs 03/09/22 03/28/22 Rx ascorbic acid (vitamin C) 500 mg 250 mg PO DAILY@1100 #20 tabs 03/09/22 03/28/22 Rx tablet (Vitamin C) nifedipine 30 mg tablet,extended 30 mg PO HS #30 tabs 03/09/22 03/28/22 Rx release 24 hr (Procardia XL) oxycodone 5 mg tablet 5 mg PO BID PRN pain #20 tabs 03/09/22 03/28/22 Rx lisinopril 5 mg tablet 5 mg PO DAILY 03/28/22 03/28/22 History Allergies Allergy/AdvReac Type Severity Reaction Status Date / Time aspirin Allergy Unknown Unknown Verified 03/28/22 14:22 Sulfa (Sulfonamide Allergy Unknown Unknown Verified 03/28/22 14:22 Antibiotics) Past Med/Surg History Medical History Asthma USES PRN INH 1 X WK Atrial flutter PT COULD NOT CONFIRM Chronic anticoagulation Chronic left hip pain Diffuse myofascial pain syndrome History of DVT (deep vein thrombosis) RLE - 20 YEARS AGO FOLLOWING INJURY History of endometriosis History of MA (myocardial infarction) 2017 - FOLLOWS W/ DR. JACOBSEN History of pulmonary embolism Hypertension Hypothyroidism Migraine On anticoagulant therapy On home oxygen therapy 2 LPM 02 QHS Opioid dependence Osteoarthritis Osteoporosis Poor historian Pulmonary edema Pulmonary embolism (10/10/12) 20 YEARS AGO AFTER INJURY 30 YEARS AGO - POST OP CHOLEYCYSTECTOMY ON WARFARIN Sleep apnea NO DEVICE Surgical History History of appendectomy History of cardiac cath 2018 - [place] - NO STENTS History of cataract surgery History of section History of cholecystectomy History of colonoscopy History of esophagogastroduodenoscopy (EGD) History of left knee surgery History of tonsillectomy History of total abdominal hysterectomy and bilateral salpingo-oophorectomy History of tubal ligation Family History Father Esophageal cancer Social History Smoking Status: Never smoker Second Hand Exposure: Yes (FAMILY MEMBERS CURRENTLY SMOKE); Hx Alcohol Use: No Hx Substance Use: No Preferred Language: Urdu Communication Ability: Effective Visual Impairment: No Limitations Hearing Ability: Normal Film Waxer Required: No Beliefs That Will Affect Care: None marital status: Current Living Situation: Spouse Current Living Situation Comment: sonMinh current occupational status: retired Feels Safe at Home: Yes Assistive Devices: Hospital Bed, Lift Chair, Walker and Wheelchair Review of Systems A total of 10 systems reviewed and were otherwise negative Physical Exam Vital Signs Vital Signs - 24 hr 03/28/22 09:33 03/28/22 11:30 03/28/22 11:30 Temperature 36.6 C Temperature Source Oral Pulse Rate 111 H 85 Pulse Rate from SpO2 Sensor 85 Respiratory Rate 20 20 Respiratory Depth Normal Blood Pressure 122/66 109/75 Blood Pressure Mean 84 86 Pulse Oximetry 97 100 Oxygen Delivery Method Nasal Cannula Oxygen Flow Rate 2 Sepsis Recent Fever Within 48 Hours No Sepsis New/Unexplained Change in Mental Status N/A Sepsis Action Taken by Nursing No Action Required 03/28/22 12:01 03/28/22 12:01 03/28/22 12:30 Temperature Temperature Source Pulse Rate 83 Pulse Rate from SpO2 Sensor 86 Respiratory Rate 21 Respiratory Depth Blood Pressure 132/71 132/71 119/70 Blood Pressure Mean 91 91 86 Pulse Oximetry 97 Oxygen Delivery Method Oxygen Flow Rate Sepsis Recent Fever Within 48 Hours Sepsis New/Unexplained Change in Mental Status Sepsis Action Taken by Nursing 03/28/22 12:30 03/28/22 13:00 03/28/22 13:00 Temperature Temperature Source Pulse Rate 90 90 Pulse Rate from SpO2 Sensor 90 90 Respiratory Rate 25 H 24 Respiratory Depth Blood Pressure 128/76 Blood Pressure Mean 93 Pulse Oximetry 100 100 Oxygen Delivery Method Oxygen Flow Rate Sepsis Recent Fever Within 48 Hours Sepsis New/Unexplained Change in Mental Status Sepsis Action Taken by Nursing 03/28/22 13:30 03/28/22 13:30 03/28/22 14:00 Temperature Temperature Source Pulse Rate 90 Pulse Rate from SpO2 Sensor 90 Respiratory Rate 20 Respiratory Depth Blood Pressure 131/94 136/95 Blood Pressure Mean 106 108 Pulse Oximetry 100 Oxygen Delivery Method Oxygen Flow Rate Sepsis Recent Fever Within 48 Hours Sepsis New/Unexplained Change in Mental Status Sepsis Action Taken by Nursing 03/28/22 14:00 03/28/22 14:30 03/28/22 14:30 Temperature Temperature Source Pulse Rate 90 89 Pulse Rate from SpO2 Sensor 90 89 Respiratory Rate 19 17 Respiratory Depth Blood Pressure 137/52 L Blood Pressure Mean 80 Pulse Oximetry 100 100 Oxygen Delivery Method Oxygen Flow Rate Sepsis Recent Fever Within 48 Hours Sepsis New/Unexplained Change in Mental Status Sepsis Action Taken by Nursing Physical Exam GENERAL: He is oriented to person, place, and time. He appears well-developed and well-nourished. He does not appear distressed. HENT: Exam performed. - Head: 6 cm laceration over the occiput. - Right Ear: External ear normal. No mastoid tenderness. - Left Ear: External ear normal. No mastoid tenderness. - Mouth/Throat: The oropharynx is clear and moist. No trismus in the jaw. No dental abscesses or uvula swelling. No oropharyngeal exudate or tonsillar abscesses. EYES: Conjunctivae and EOM are normal. Pupils are equal, round, and reactive to light. Right eye exhibits no discharge. Left eye exhibits no discharge. No scleral icterus. NECK: Normal range of motion. Neck supple. No JVD present. No spinous process tenderness present. No carotid bruit present. No rigidity. No tracheal deviation and normal range of motion present. No Brudzinski's sign and no Kernig's sign noted. CV: Normal rate, regular rhythm, normal heart sounds and intact distal pulses. There is no peripheral edema. Palpable radial pulses bue. PULM/CHEST: Effort normal and breath sounds normal. No respiratory distress. No stridor. He has no wheezes. He has no rales. - Chest Wall: He exhibits no tenderness. ABD: The abdomen is soft obese. Bowel sounds are normal. He has no distension. No mass is present. There is no tenderness. There is no rebound, no guarding, no Block's sign and no tenderness at McBurney's point. Rovsig negative. MUSC/SKEL: Normal range of motion. There is no peripheral edema, tenderness or deformity. LYMPH: No cervical adenopathy. NEURO: He is alert and oriented to person, place, and time. He has normal strength. No cranial nerve deficit or sensory deficit. Coordination and gait normal. GCS eye subscore is 4. GCS verbal subscore is 5. GCS motor subscore is 6. Cerebellar tests wnl. SKIN: Skin is warm and dry. He is not diaphoretic. PSYCH: He has a normal mood and affect. Behavior is normal. Judgment and thought content normal. Female Procedures Laceration Laceration 1: Site: scalp Size (cm): 6 Description: linear and clean Local Anesthetic: lidocaine 1% and with epi Amount of anesthesia used (mL): 6 Pre-repair: wound explored, irrigated extensively and deep structures intact Skin layer closed with: other (mago) Number of sutures: 5 Course Course 1014: The patient was evaluated in room C4. A complete history and physical exam was performed Cardiac monitoring: An order was placed for continuous cardiac monitoring. The monitor shows a rate of 90 with sinus rhythm 1345: Vital signs stable. Imaging shows no acute traumatic injury. Hemoglobin 8.5. Initial troponin was 27 and delta troponin is trending upwards. Given the patient's extreme weakness and recurrent falls it was thought that the patient would be better served admitted to the hospital for rehab and cardiology evaluation. Patient is in agreement. Scalp laceration closed. See procedure note. Discussed case with [facility] hospitalist Dr. Puga who will evaluate the patient for admission. Administered Medications Discontinued Medications Ioversol (Optiray 300 100ml) 87 ml IV ONCE ONE Stop: 03/28/22 11:04 Last Admin: 03/28/22 11:03 Dose: 87 ml Documented By: JUDD Lidocaine HCl (Xylocaine 1%/Sod Bicarb 20 Ml Vial) 20 ml INFIL NOW ONE Stop: 03/28/22 12:25 Last Admin: 03/28/22 13:00 Dose: 20 ml Documented By: JAYLYN Medical Decision Making Laboratory Data Result diagrams: 03/28/22 09:49 03/28/22 09:49 Lab Results 03/28/22 03/28/22 03/28/22 Range/Units 09:49 09:49 09:49 WBC 5.72 (4.8-10.8) K/ul RBC 2.35 L (3.93-5.22) M/uL Hgb 8.5 L (12.0-16.0) g/dl Hct 26.3 L (34.1-44.9) % MCV 111.9 H (80.0-100.0) fL MCH 36.2 H (25.0-34.0) pg MCHC 32.3 (32.0-36.0) g/dL RDW Std Deviation 61.7 H (36.4-46.3) fL RDW Coeff of Vijay 14.9 H (11.5-14.5) % Plt Count 244 (130-400) K/uL MPV 10.0 (9.4-12.3) fL Immature Gran % (Auto) 0.5 % Neut % (Auto) 58.8 % Lymph % (Auto) 27.6 % Ulster % (Auto) 6.5 % Eos % (Auto) 5.9 % Baso % (Auto) 0.7 % Neut # (Auto) 3.36 (1.4-6.5) K/uL Lymph # (Auto) 1.58 (1.2-3.4) K/uL Ulster # (Auto) 0.37 (0.24-0.82) K/uL Eos # (Auto) 0.34 (0-0.50) K/uL Baso # (Auto) 0.04 (0-0.2) K/uL Immature Gran # (Auto) 0.03 H (0.00-0.02) K/uL Macrocytosis Present Sodium 139 (136-145) mmol/L Potassium 4.2 (3.5-5.1) mmol/L Chloride 102 (98-107) mmol/L Carbon Dioxide 32 (21-32) mmol/L Anion Gap 5 (3-11) BUN 18 (6-23) mg/dl Creatinine 1.30 H (0.6-1.2) mg/dl Est Cr Clr Drug Dosing 39.6 ml/min Est GFR ( Amer) 44.9 ml/min Est GFR (Non-Af Amer) 38.7 ml/min BUN/Creatinine Ratio 13.8 (10-20) Glucose 84 (70-99(Fasting)) mg/dl Calcium 8.8 (8.5-10.1) mg/dl Total Bilirubin 0.9 (0.2-1.0) mg/dl AST 22 (13-39) U/L ALT 16 (7-52) U/L Alkaline Phosphatase 145 H (34-104) U/L Troponin I High Sens 27.0 H (0-14) pg/ml Total Protein 5.9 L (6.0-8.3) gm/dl Albumin 3.0 L (3.4-5.0) gm/dl Globulin 2.9 (2.5-4.0) gm/dl Albumin/Globulin Ratio 1.0 (0.9-2) SARS-CoV-2, RNA, NAAT (NEGATIVE) 03/28/22 03/28/22 Range/Units 12:27 14:35 WBC (4.8-10.8) K/ul RBC (3.93-5.22) M/uL Hgb (12.0-16.0) g/dl Hct (34.1-44.9) % MCV (80.0-100.0) fL MCH (25.0-34.0) pg MCHC (32.0-36.0) g/dL RDW Std Deviation (36.4-46.3) fL RDW Coeff of Vijay (11.5-14.5) % Plt Count (130-400) K/uL MPV (9.4-12.3) fL Immature Gran % (Auto) % Neut % (Auto) % Lymph % (Auto) % Ulster % (Auto) % Eos % (Auto) % Baso % (Auto) % Neut # (Auto) (1.4-6.5) K/uL Lymph # (Auto) (1.2-3.4) K/uL Ulster # (Auto) (0.24-0.82) K/uL Eos # (Auto) (0-0.50) K/uL Baso # (Auto) (0-0.2) K/uL Immature Gran # (Auto) (0.00-0.02) K/uL Macrocytosis Sodium (136-145) mmol/L Potassium (3.5-5.1) mmol/L Chloride (98-107) mmol/L Carbon Dioxide (21-32) mmol/L Anion Gap (3-11) BUN (6-23) mg/dl Creatinine (0.6-1.2) mg/dl Est Cr Clr Drug Dosing ml/min Est GFR ( Amer) ml/min Est GFR (Non-Af Amer) ml/min BUN/Creatinine Ratio (10-20) Glucose (70-99(Fasting)) mg/dl Calcium (8.5-10.1) mg/dl Total Bilirubin (0.2-1.0) mg/dl AST (13-39) U/L ALT (7-52) U/L Alkaline Phosphatase (34-104) U/L Troponin I High Sens 28.9 H (0-14) pg/ml Total Protein (6.0-8.3) gm/dl Albumin (3.4-5.0) gm/dl Globulin (2.5-4.0) gm/dl Albumin/Globulin Ratio (0.9-2) SARS-CoV-2, RNA, NAAT NEGATIVE (NEGATIVE) Imaging Data Radiologist's Impression: Chest X-Ray 03/28/22 09:50 XR chest 1V portable CLINICAL HISTORY: wheezing COMPARISON STUDY: Chest radiograph March 07, 2022. FINDINGS: Marked elevation of the right hemidiaphragm is again noted. There is no pneumothorax or pleural effusion. Linear left basilar opacity favors atelectasis. Cardiomediastinal silhouette is stable. IMPRESSION: No acute cardiopulmonary findings. No significant change in ap pearance of the chest. ACT 112: Negative or not required by law. Electronically signed by: Shon Rushing M.D. 03/28/2022 10:33 AM Abdomen/Pelvis CT 03/28/22 10:26 CT abd pelvis IV con only CLINICAL HISTORY: fall TECHNIQUE: Helical axial images of the abdomen and pelvis were obtained and displayed. Automated dose lowering techniques and/or adjustment according to patient size were utilized for this exam. This exam was performed with intravenous contrast. COMPARISON: Comparison is made to CT abdomen pelvis 01/10/2021 FINDINGS: Lower chest: Elevation of the right hemidiaphragm is seen. Liver: Unremarkable. No focal lesions are seen. Gallbladder and biliary tree: Patient is status post cholecystectomy. There is marked dilation of the common bile duct and intrahepatic bile ducts. Common bile duct measures up to 29 mm in diameter. Pancreas: Fatty replacement of the pancreas is seen. Spleen: Unremarkable. Adrenals: Unremarkable. Kidneys and ureters: A peripherally calcified cyst is again seen in the right upper pole. Kidneys are otherwise unremarkable. Bladder: Unremarkable. Reproductive organs: Unremarkable. Bowel: Unremarkable. Lymph nodes Retroperitoneal: Unremarkable. Pelvic: Unremarkable. Mesenteric: Unremarkable. Peritoneum: Normal. Vessels: Atherosclerotic calcifications are seen. Abdominal wall: Numerous abdominal wall calcifications are seen. These may represent dystrophic calcifications. Bones: Degenerative changes in the visualized spine. T12 deformity is unchanged from prior exam. IMPRESSION: No acute abnormality is seen. In particular, no evidence of acute fracture. Chronic deformity of T12 is noted. ACT 112: Negative or not required by law. Electronically signed by: Ricky Rosenbaum M.D. 03/28/2022 11:[address] 03/28/22 10:27 CT cervical spine wo con CLINICAL HISTORY: fall TECHNIQUE: Multidetector row helical CT of the cervical spine was performed without administration of intravenous contrast. Coronal and sagittal reformations were obtained. Automated dose lowering techniques and/or adjustment according to patient size were utilized for this exam. Comparison: None available at the time of this dictation. FINDINGS: No acute fractures or subluxations are identified. Degenerative changes are seen in the visualized spine. The alignment is normal. Soft tissues are unremarkable. IMPRESSION: Degenerative changes without evidence of acute bony injury. ACT 112: Negative or not required by law. Electronically signed by: Ricky Rosenbaum M.D. 03/28/2022 11:18 AM Chest X-Ray 03/28/22 10:27 XR chest 1V portable CLINICAL HISTORY: fall COMPARISON STUDY: Chest radiograph March 28, 2022 at 9:58 AM. FINDINGS: Elevation of the right hemidiaphragm is again noted. Linear left basilar opacity reflects atelectasis. There is no pneumothorax or pleural effusion. Cardiac size is normal. Mediastinal contours are normal. There is no evidence for pulmonary edema. Osteoarthritis of the glenohumeral joints is noted. IMPRESSION: No acute cardiopulmonary findings. Stable elevation of the right hemidiaphragm. ACT 112: Negative or not required by law. Electronically signed by: Shon Rushing M.D. 03/28/2022 11:[address] 03/28/22 10:27 CT OF THE HEAD WITHOUT CONTRAST CLINICAL HISTORY: Fall. COMPARISON STUDY: Head CT January 24, 2021. TECHNIQUE: Helical axial images of the head were obtained without IV contrast. Automated exposure control was utilized for the study. A dose lowering technique was utilized adhering to the principles of ALARA. FINDINGS: No acute intracranial hemorrhage, midline shift or mass effect is present. White matter hypodensities are unchanged and represent small vessel disease. The ventricular system is unremarkable. The basal cisterns are patent. No extra-axial collections are present. There are no findings to suggest acute dural sinus thrombosis or acute territorial infarct. No significant calvarial abnormalities are present. A left posterior scalp contusion and laceration is noted. No acute calvarial fracture. There is trace fluid within the bilateral mastoid air cells. IMPRESSION: 1. No acute intracranial findings. No change in appearance of the brain. 2. Left posterior scalp laceration and contusion. No calvarial fracture. ACT 112: Negative or not required by law. Electronically signed by: Shon Rushing M.D. 03/28/2022 11:13 AM Pelvis X-Ray 03/28/22 10:27 XR pelvis 1-2V routine CLINICAL HISTORY: fall COMPARISON: CT of the abdomen and pelvis January 10, 2021. FINDINGS: Sacroiliac joints and symphysis pubis are intact. No acute fracture within the pelvis or hips is identified. Joint spaces are preserved. There is mild osteophytosis of the hips. IMPRESSION: No acute fracture within the pelvis or hips. ACT 112: Negative or not required by law. Electronically signed by: Shon Rushing M.D. 03/28/2022 10:[address] 03/28/22 14:47 CT chest diagnostic wo con CLINICAL HISTORY: Hypoxia and wheezing COMPARISON STUDY: Portable chest from 03/28/2022 CT DOSE: 378.99 mGycm TECHNIQUE: Standard CT of the Chest was performed without IV contrast. A dose lowering technique was utilized adhering to the principles of ALARA. FINDINGS: Airway: The airway is clear. No endobronchial lesion is identified. Lungs: There is asymmetric elevation of the right hemidiaphragm with crowding the bronchovascular markings at the right lung base. The lungs are otherwise clear of acute alveolar opacities, air bronchograms or pulmonary nodules. Pleura: There is no evidence for pleural effusion. There is no evidence for pneumothorax. Mediastinum: There is no evidence for pathologic adenopathy on these limited noncontrast images. The heart size is within normal limits. There is marked mitral annular calcification. The thoracic aorta is within normal limits. Atherosclerotic calcifications present. There is no evidence for pericardial effusion. Osseous structures: There is no acute osseous pathology. IMPRESSION: 1. Asymmetric elevation of the right hemidiaphragm with crowding the bronchovascular markings at the right lung base. 2. There is otherwise no acute chest disease on these noncontrast images. ACT 112: Negative or not required by law. Electronically signed by: Rajat Kuo M.D. 03/28/2022 4:37 PM Ankle X-Ray 03/28/22 15:23 XR ankle RT 2V CLINICAL HISTORY: Status post fall with pain. COMPARISON STUDY: No previous studies for comparison. TECHNIQUE: 2 right ankle views FINDINGS: Bones: The bones are osteopenic. There is no evidence for an acute fracture or dislocation. There is no lytic or blastic lesion. Joints: The joint spaces are maintained. The bones are in anatomic alignment. Soft tissues: There is no focal soft tissue abnormality. Vascular calcification is seen within the soft tissues. There is no radiopaque foreign body. IMPRESSION: 1. No acute osseous pathology. 2. Osteopenia ACT 112: Negative or not required by law. Electronically signed by: Rajat Kuo M.D. 03/28/2022 4:01 PM Knee X-Ray 03/28/22 15:23 XR knee LT 1 or 2V routine CLINICAL HISTORY: Status post fall with left knee pain. COMPARISON STUDY: No previous studies for comparison. TECHNIQUE: 2 left knee views FINDINGS: Bones: There is no evidence for an acute fracture or dislocation. There is no lytic or blastic lesion. Joints: There is marked narrowing of the medial joint compartment with secondary degenerative changes. Mild to moderate narrowing is present involving the patell ofemoral joint and lateral joint compartment. There is no evidence for an intra- articular effusion. Genu varus deformity is present. Soft tissues: There is no focal soft tissue abnormality. There is no radiopaque foreign body. IMPRESSION: 1. No acute osseous pathology. 2. Marked osteoarthritis. ACT 112: Negative or not required by law. Electronically signed by: Rajat Kuo M.D. 03/28/2022 3:59 PM Knee X-Ray 03/28/22 15:23 XR knee RT 1 or 2V routine HISTORY: 82 years-old Female pain, fall, r/o fracture acute right knee pain status post fall COMPARISON: 07/07/2021 TECHNIQUE: 3 views of the right knee FINDINGS: Small joint effusion. Corticated ossifications anterior and lateral to the knee are redemonstrated. Mild lateral with moderate to severe patellofemoral and moderate medial compartment osteoarthritis. Chondrocalcinosis. Linear lucency of the medial tibial plateau is likely projectional. Arterial calcifications. IMPRESSION: 1. No definite acute fracture or dislocation. 2. Ill-defined linear lucency of the medial tibial plateau is likely projectional. A subtle acute fracture is considered less likely. 3. Tricompartmental osteoarthritis with small joint effusion. ACT 112: Negative or not required by law. The above report was generated using voice recognition software. It may contain grammatical, syntax or spelling errors. Electronically signed by: Demetrio Terrell M.D. 03/28/2022 4:00 PM ECG Data Indication: + weakness Rate (beats per minute): 92 Rhythm: + normal sinus ECG Intervals/blocks: + Left bundle branch block Additional Comments: sgarbosa negative. MDM Narrative Vital signs stable. Imaging shows no acute traumatic injury. Hemoglobin 8.5. Initial troponin was 27 and delta troponin is trending upwards. Given the patient's extreme weakness and recurrent falls it was thought that the patient would be better served admitted to the hospital for rehab and cardiology evaluation. Patient is in agreement. Scalp laceration closed. See procedure note. Discussed case with [facility] hospitalist Dr. Puga who will evaluate the patient for admission. Impression & Plan Recurrent falls, Weakness, Elevated troponin, CHI (closed head injury), Laceration of scalp Discharge Plan Visit Data Chief Complaint: Fall Stated Complaint: FALL, HEAD LAC ED Provider: Bhavik Castillo Discharge Problem: Recurrent falls, Weakness, Elevated troponin, CHI (closed head injury), Laceration of scalp Patient Disposition: Admitted As Inpatient Forms Stand Alone Forms: [facility] Prescriptions Prescriptions: No Action duloxetine 30 mg capsule,delayed release(DR/EC) 30 mg PO QAM Rx Instructions: TOTAL DOSE 90 MG--TAKES WITH 60 MG CAP. pantoprazole 40 mg tablet,delayed release (DR/EC) 40 mg PO DAILY levothyroxine 50 mcg tablet 50 mcg PO DAILYBB carvedilol 12.5 mg tablet 12.5 mg PO BID alendronate 70 mg tablet 70 mg PO WK Rx Instructions: TAKE THIS MEDICATION EVERY SATURDAY amitriptyline 25 mg tablet 25 mg PO HS montelukast 10 mg tablet 10 mg PO HS albuterol sulfate [Ventolin HFA] 90 mcg/actuation Hfa Aerosol Inhaler 2 puff INHALATION Q4 PRN (Reason: Shortness Of Breath Or Wheezing) atorvastatin 20 mg tablet 20 mg PO DAILY sumatriptan succinate 100 mg tablet 100 mg PO UD PRN (Reason: Migraine Headache) albuterol sulfate 2.5 mg /3 mL (0.083 %) Solution For Nebulization 2.5 mg INHALATION Q4H PRN (Reason: Wheezing) cholecalciferol (vitamin D3) 25 mcg (1,000 unit) Capsule 25 mcg PO DAILY lisinopril 5 mg tablet 5 mg PO DAILY gabapentin 100 mg capsule 200 mg PO TID acetaminophen [Tylenol] 325 mg Tablet 650 mg PO Q6H PRN (Reason: PAIN/FEVER) furosemide 20 mg tablet 20 mg PO QAM fluticasone propion-salmeterol [Advair Diskus] 100-50 mcg/dose Blister With Device 1 inh INHALATION BID duloxetine 60 mg capsule,delayed release(DR/EC) 60 mg PO QAM Rx Instructions: TOTAL DOSE 90 MG--TAKES WITH 30 MG CAP. Vitron-C 65 mg iron- 125 mg Tablet,Delayed Release (Dr/Ec) 1 tab PO DAILY nifedipine [Procardia XL] 30 mg Tablet Extended Release 24 Hr 30 mg PO HS Qty: 30 0RF ascorbic acid (vitamin C) [Vitamin C] 500 mg Tablet 250 mg PO DAILY@1100 Qty: 20 0RF apixaban 2.5 mg tablet 2.5 mg PO BID Qty: 60 0RF oxycodone 5 mg Tablet 5 mg PO BID PRN (Reason: pain) Qty: 20 0RF Referrals Referrals: Giorgio Salas DO [Primary Care Provider] -
[2022-03-28] MEDS ORDERED: CEFEPIME 2,000 MG in SYRINGE 0 ML IV SCH (18:00)
[2022-03-28] MEDS: predniSONE 20 MG TAB PO SCH (18:36)
[2022-03-28] MEDS: LEVALBUTEROL 1.25MG/0.5ML NEB NEB SCH (19:20)
[2022-03-28] MEDS: carvediloL 12.5 MG TAB PO SCH (20:21)
[2022-03-28] MEDS: MONTELUKAST SODIUM 10 MG TABLET PO SCH (20:22)
[2022-03-28] MEDS: DOXYCYCLINE HYCLATE 100 MG CAP PO SCH (20:22)
[2022-03-28] MEDS: NIFEdipine EXTENDED REL 30 MG TABCR PO SCH (20:23)
[2022-03-28] MEDS: guaiFENesin 600 MG TABCR PO SCH (20:23)
[2022-03-28] MEDS ORDERED: PROMETHAZINE HCL 6.25 MG in SODIUM CHLORIDE 0.9% 50 ML IV PRN (21:27)
[2022-03-29] MEDS: LEVALBUTEROL 1.25MG/0.5ML NEB NEB SCH ×4 (01:23→19:52)
[2022-03-29] MEDS: LEVOTHYROXINE SODIUM 50 MCG TABLET PO SCH (05:40)
[2022-03-29] MEDS ORDERED: MICONAZOLE NITRATE POWDER 43 GM EXT PRN (05:50)
[2022-03-29 07:26] LABS: Hematocrit (blood only) 26.9 % (34.1-44.9); Hemoglobin 8.7 g/dl (12.0-16.0); Mean Corpuscular Hemoglobin 35.4 pg (25.0-34.0); Mean Corpuscular Hgb Conc 32.3 g/dL (32.0-36.0); Mean Corpuscular Volume 109.3 fL (80.0-100.0); Mean Platelet Volume 10.7 fL (9.4-12.3); Platelet Count 203 K/uL (130-400); RDW Coefficient of Variation 14.6 % (11.5-14.5); RDW Standard Deviation 58.1 fL (36.4-46.3); Red Blood Count 2.46 M/uL (3.93-5.22); White Blood Count 4.94 K/ul (4.8-10.8)
[2022-03-29 07:36] LABS: BUN Creatinine Ratio 16.8 (10-20); Calcium 8.7 mg/dl (8.5-10.1); Creatinine Clr Calc Pharmacy 49.7 ml/min; Est GFR (African American) 60.9 ml/min; Est GFR (Non-African American) 52.5 ml/min; Potassium 4.5 mmol/L (3.5-5.1)
[2022-03-29 07:47] LABS: Basophils # (auto) 0.02 K/uL (0-0.2); Basophils % (auto) 0.4 %; Eosinophils # (auto) 0.01 K/uL (0-0.50); Eosinophils % (auto) 0.2 %; Immature Granulocytes # (auto) 0.02 K/uL (0.00-0.02); Immature Granulocytes % (auto) 0.4 %; Lymphocytes # (auto) 0.22 K/uL (1.2-3.4); Lymphocytes % (auto) 4.5 %; Monocytes # (auto) 0.08 K/uL (0.24-0.82); Monocytes % (auto) 1.6 %; Neutrophils # (auto) 4.59 K/uL (1.4-6.5); Neutrophils % (auto) 92.9 %
--- NOTE | 2022-03-29 07:47 | Ultrasound Report ---
BILATERAL LOWER EXTREMITY VENOUS DOPPLER CLINICAL HISTORY: Lower extremity swelling. COMPARISON STUDY: Right lower extremity venous Doppler ultrasound July 07, 2021. Bilateral lower extremity venous Doppler ultrasound January 06, 2021. TECHNIQUE: Sonography of the deep venous system of the bilateral lower extremities was performed. Co mpression and augmentation were evaluated. FINDINGS: Linear echogenic material within the right common femoral and superficial femoral veins we re shown on ultrasound of August 06, 2021. This represents chronic thrombus. No evidence for acute deep venous thrombus within the lower extremities. Note is made of a complex 4.4 x 3.7 x 1.7 cm fluid collection within the proximal medial right calf. There is also a 3.8 x 1.3 x 2 cm complex fluid col lection, likely intramuscular, within the left calf. IMPRESSION: 1. No evidence of acute deep venous thrombus within the bilateral lower extremities. 2. No change in chronic thrombus within the right common femoral and superficial femoral veins since ultrasound of July 07, 2021. 3. Small bilateral calf fluid collections, as described above. Although nonspecific, these favor erick sandra. Follow-up ultrasound in 3 months to ensure resolution is recommended. ACT 112: Negative or not required by law. Electronically signed by: Shon Rushing M.D. 03/29/2022 7:45 AM
[2022-03-29 07:51] LABS: Thyroid Stimulating Hormone 0.744 uIu/ml (0.300-4.500)
[2022-03-29 07:53] LABS: T4 Free Thyroxine 1.13 ng/dl (0.61-1.60)
[2022-03-29] MEDS: DOXYCYCLINE HYCLATE 100 MG CAP PO SCH ×2 (08:37→22:07)
[2022-03-29] MEDS: ATORVASTATIN 20 MG TAB PO SCH (08:37)
[2022-03-29] MEDS: carvediloL 12.5 MG TAB PO SCH ×2 (08:37→22:07)
[2022-03-29] MEDS: DULoxetine HCL 30 MG CAP PO SCH (08:38)
[2022-03-29] MEDS: FLUTICASONE/VILANTEROL 100/25MCG 14 PUFFS/INHALER INH SCH (08:38)
[2022-03-29] MEDS: FUROSEMIDE 20 MG TAB PO SCH (08:38)
[2022-03-29] MEDS: guaiFENesin 600 MG TABCR PO SCH ×2 (08:39→22:06)
[2022-03-29] MEDS: PANTOprazole 40 MG TAB PO SCH (08:39)
[2022-03-29] MEDS: predniSONE 20 MG TAB PO SCH (08:39)
[2022-03-29] MEDS: ACETAMINOPHEN 325 MG TAB PO PRN ×2 (08:45→22:12)
--- NOTE | 2022-03-29 10:20 | Orthopedic Consultation ---
Date of Consultation March 29, 2022 Assessment & Plan (1) Right knee pain: 82 year old female with right knee tricompartmental osteoarthritis who fell with possible small fracture of far medial aspect of medial tibial plateau that appears stable Recommend conservative management with knee hinged brace, WBAT, PT, ice/elevate. Patient is able to have full active ROM of knee in short hinged knee brace. Can remove brace for PT and hygiene purposes. Pain control per primary. Recommend against cortisone injection at this time. Patient already on Eliquis. Recommend foot pumps/SCDs/TEDs while in house Follow up in 10-14 days with with [facility] Plan discussed with attending Supervising Physician Co-Signing Physician Notes I saw and examined the patient, reviewed her imaging, formulated the above plan, and performed the substantive portion of the visit. History of Present Illness Reason for Consultation: Bilateral knee pain with right knee fracture Attending Physician: Ethan Jackson MD History of Present Illness Patient is a 82 year old female who presented to ED yesterday after frequent falls. She has been falling on average once a day she says because she loses her balance and gets lightheaded. She has had bilateral knee pain from arthritis for many years. It has been fairly stable. Pain management for her whole body arthritis has been a challenge. She was given oxycodone, which helped with the pain, but she overdosed on it and ended up in the hospital for this, so now she's taking oxycodone 1 tab twice a day. Orthopedics was consulted for right knee pain. Xrays right knee showed linear lucency in the far medial aspect of the medial tibial plateau, likely projectional but fracture not ruled out. She has sever osteoarthritis with tricompartmental osteophyte formation in both knees. X rays right ankle benign. BL venous duplex US negative for DVT, small fluid collections in calves consistent with hematoma Patient was seen and examined today bedside. She says she is doing okay. Her right knee is painful, worse than her left, but overall pain is controlled. She says she fell saturday and landed directly onto her right knee. She has fallen multiple times over the past couple weeks. She uses a walker at baseline to walk and says that she is doing well walking and has minimal pain. She is able to flex and bend her knee with no difficulty. She denies numbness or tingling. She is on Eliquis. She has bruising over both knees. Allergies Allergy/AdvReac Type Severity Reaction Status Date / Time aspirin Allergy Unknown Unknown Verified 03/28/22 14: Sulfa (Sulfonamide Allergy Unknown Unknown Verified 03/28/22 14:22 Antibiotics) Home Medications Medication Instructions Recorded Confirmed Type albuterol sulfate 90 mcg/actuation 2 puff inhalation Q4 PRN Shortness 11/10/18 03/28/22 History aerosol inhaler (Ventolin HFA) Of Breath Or Wheezing alendronate 70 mg tablet 70 mg PO WK 11/10/18 03/28/22 History amitriptyline 25 mg tablet 25 mg PO HS 11/10/18 03/28/22 History carvedilol 12.5 mg tablet 12.5 mg PO BID 11/10/18 03/28/22 History montelukast 10 mg tablet 10 mg PO HS 11/10/18 03/28/22 History duloxetine 30 mg capsule,delayed 30 mg PO QAM 02/28/19 03/28/22 History release pantoprazole 40 mg tablet,delayed 40 mg PO DAILY 07/22/19 03/28/22 History release atorvastatin 20 mg tablet 20 mg PO DAILY 10/11/19 03/28/22 History levothyroxine 50 mcg tablet 50 mcg PO DAILYBB 01/15/20 03/28/22 History sumatriptan succinate 100 mg tablet 100 mg PO UD PRN Migraine Headache 06/27/20 03/28/22 History albuterol sulfate 2.5 mg/3 mL 2.5 mg inhalation Q4H PRN Wheezing 01/06/21 03/28/22 History (0.083 %) solution for nebulization cholecalciferol (vitamin D3) 25 25 mcg PO DAILY 01/06/21 03/28/22 History mcg (1,000 unit) capsule gabapentin 100 mg capsule 200 mg PO TID 07/07/21 03/28/22 History acetaminophen 325 mg tablet 650 mg PO Q6H PRN PAIN/FEVER 03/07/22 03/28/22 History (Tylenol) duloxetine 60 mg capsule,delayed 60 mg PO QAM 03/07/22 03/28/22 History release fluticasone 100 mcg-salmeterol 50 1 inh inhalation BID 03/07/22 03/28/22 History mcg/dose blistr powdr for inhalation (Advair Diskus) furosemide 20 mg tablet 20 mg PO QAM 03/07/22 03/28/22 History iron,carbonyl 65 mg-vitamin C 125 1 tab PO DAILY 03/07/22 03/28/22 History mg tablet,delayed release (Vitron-C) apixaban 2.5 mg tablet 2.5 mg PO BID #60 tabs 03/09/22 03/28/22 Rx ascorbic acid (vitamin C) 500 mg 250 mg PO DAILY@1100 #20 tabs 03/09/22 03/28/22 Rx tablet (Vitamin C) nifedipine 30 mg tablet,extended 30 mg PO HS #30 tabs 03/09/22 03/28/22 Rx release 24 hr (Procardia XL) oxycodone 5 mg tablet 5 mg PO BID PRN pain #20 tabs 03/09/22 03/28/22 Rx lisinopril 5 mg tablet 5 mg PO DAILY 03/28/22 03/28/22 History Patient History Medical History Asthma USES PRN INH 1 X WK Atrial flutter PT COULD NOT CONFIRM Chronic anticoagulation Chronic left hip pain Diffuse myofascial pain syndrome History of DVT (deep vein thrombosis) RLE - 20 YEARS AGO FOLLOWING INJURY History of endometriosis History of [place] (myocardial infarction) 2018 - FOLLOWS W/ DR. JACOBSEN History of pulmonary embolism Hypertension Hypothyroidism Migraine On anticoagulant therapy On home oxygen therapy 2 LPM 02 QHS Opioid dependence Osteoarthritis Osteoporosis Poor historian Pulmonary edema Pulmonary embolism (10/10/12) 20 YEARS AGO AFTER INJURY 30 YEARS AGO - POST OP CHOLEYCYSTECTOMY ON WARFARIN Sleep apnea NO DEVICE Surgical History History of appendectomy History of cardiac cath 2018 - [place] - NO STENTS History of cataract surgery History of section History of cholecystectomy History of colonoscopy History of esophagogastroduodenoscopy (EGD) History of left knee surgery History of tonsillectomy History of total abdominal hysterectomy and bilateral salpingo-oophorectomy History of tubal ligation Family History Father Esophageal cancer Social History Smoking Status: Never smoker Second Hand Exposure: No; Hx Alcohol Use: No Hx Substance Use: No Preferred Language: Indonesian Communication Ability: Effective Visual Impairment: No Limitations Hearing Ability: Normal Audit 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 No major e ffusion. Patient tender to palpation laterally and medially along medial and lateral joint lines and medial tibia. ROM 0 -100 degrees pain free. Negative anterior and posterior drawer. Ligament feel intact with varus and valgus stress. Pt has full ROM of ankle and all 5 digits. Pt has 5/5 strength with resisted DF/PF. SLR in tact. NVI with sensation to light touch distally and good distal pulses present. Lower extremity noted to have good color and temperature with no signs of vascular or lymphatic insufficiency. Results & Data ([facility]) Vital Signs (Past 12 Hours) Vital Signs Temp Pulse Pulse Resp BP BP Pulse Ox 03/29/22 08:00 03/29/22 08:27 36.9 C 98 H 18 114/77 99 03/29/22 07:38 100 H 03/29/22 07:18 76 16 84 L 03/29/22 02:47 36.8 C 95 H 18 119/77 94 03/28/22 23:27 36.7 C 84 20 99/63 L 96 03/28/22 23:04 89 O2 Del Method O2 Flow Rate 03/29/22 08:00 Nasal Cannula 4 03/29/22 08:27 Nasal Cannula 4 03/29/22 07:38 03/29/22 07:18 Nasal Cannula 2 03/29/22 02:47 Oxymask 2 03/28/22 23:27 Nasal Cannula 2 03/28/22 23:04 Diagnostic Findings XR knee RT 1 or 2V routine HISTORY: 82 years-old Female pain, fall, r/o fracture acute right knee pain status post fall COMPARISON: 07/07/2021 TECHNIQUE: 3 views of the right knee FINDINGS: Small joint effusion. Corticated ossifications anterior and lateral to the knee are redemonstrated. Mild lateral with moderate to severe patellofemoral and moderate medial compartment osteoarthritis. Chondrocalcinosis. Linear lucency of the medial tibial plateau is likely projectional. Arterial calcifications. IMPRESSION: 1. No definite acute fracture or dislocation. 2. Ill-defined linear lucency of the medial tibial plateau is likely projectional. A subtle acute fracture is considered less likely. 3. Tricompartmental osteoarthritis with small joint effusion XR knee LT 1 or 2V routine CLINICAL HISTORY: Status post fall with left knee pain. COMPARISON STUDY: No previous studies for comparison. TECHNIQUE: 2 left knee views FINDINGS: Bones: There is no evidence for an acute fracture or dislocation. There is no lytic or blastic lesion. Joints: There is marked narrowing of the medial joint compartment with secondary degenerative changes. Mild to moderate narrowing is present involving the patellofemoral joint and lateral joint compartment. There is no evidence for an intra-articular effusion. Genu varus deformity is present. Soft tissues: There is no focal soft tissue abnormality. There is no radiopaque foreign body. IMPRESSION: 1. No acute osseous pathology. 2. Marked osteoarthritis. XR ankle RT 2V CLINICAL HISTORY: Status post fall with pain. COMPARISON STUDY: No previous studies for comparison. TECHNIQUE: 2 right ankle views FINDINGS: Bones: The bones are osteopenic. There is no evidence for an acute fracture or dislocation. There is no lytic or blastic lesion. Joints: The joint spaces are maintained. The bones are in anatomic alignment. Soft tissues: There is no focal soft tissue abnormality. Vascular calcification is seen within the soft tissues. There is no radiopaque foreign body. IMPRESSION: 1. No acute osseous pathology. 2. Osteopenia
--- NOTE | 2022-03-29 15:38 | Hospitalist Progress Note ---
Date of Service March 29, 2022 Assessment & Plan (1) Recurrent falls: Plan: 82-year-old female with history of CAD, A. fib on Eliquis, HTN, CKD stage III, asthma, COPD, PE/DVT, opiate dependence, hypothyroidism presented 03/28 to the ED with complaint of recurrent falls. Patient reported feeling weak and lightheaded for the past week prior to arrival resulting in recurrent falls mostly every day for the past week [employer]. On the day of arrival, she fell backwards while using her walker with buttocks on the floor and head against the dressing cabinet. Patient denies any loss of consciousness/chest pain/palpitation around fall. She also reports having some dry cough and some dyspnea with exertion and find herself using oxygen mostly all day [usually uses oxygen at night only]. She denies fever. She is being managed for the following: #. Recurrent falls #. Generalized weakness and deconditioning #. Rt knee medial tibial plateau fracture Patient presenting with recurrent falls [see above], likely deconditioning and oxycodone contributing. Oxycodone started last January 2022, and has been falling frequently, daily for the past week [employer]. Patient takes oxycodone for generalized pain and some headaches. Admitting CXR/CTAP [w/ chronic T12 deformity]/C-spine CT/pelvic x-ray/chest CT/right ankle x-ray/left knee x-ray with no acute findings. Admitting head CT with left posterior scalp laceration and contusion, no calvarial fracture. No acute intracranial findings. Admitting right knee x-ray: Subtle acute fracture of the medial tibial plateau, tricompartmental osteoarthritis with a small joint effusion. Admitting BLE venous Doppler: No DVT, no change in chronic thrombus within the right common femoral and superficial femoral veins since ultrasound of July 07, 2021. Small bilateral calf fluid collection, follow-up ultrasound in 3 months to ensure resolution. Will use Tylenol for generalized pain and Voltaren gel/lidocaine patch for local pain. DC oxycodone. Lower the dose of tramadol, resume when QT improves. QTC still elevated. PT/OT evaluation, CM to assist with DC planning. Fall precaution. Orthopedics evaluated, conservative management with knee hinged brace, WBAT, PT, ice/elevate. Recommend against cortisone injection at this time. Follow-up in 10 to 14 days with [facility] orthopedics. #. Head laceration: Status post fall, status post mago at the ER, patient reports pain under control. Monitor HnH. #. Mild elevation in troponin: Appears chronic. Patient with no chest pain. EKG without acute ST or T changes. #. Concern for COPD/asthma exacerbation Patient was admitted 03/08- for COPD exacerbation, discharged on prednisone and doxycycline. Still complains of some cough and dyspnea on exertion, states wears oxygen at home all the time now [was only using while sleeping before]. ?? 2 step prior to dc. Admitting CT chest without acute findings. Continue with nebulization, prednisone 40 mg daily, doxycycline twice daily, Mucinex #. Other chronic medical conditions: CAD, A. fib, HTN, CKD stage III, hypothyroidism, depression --> continue with/resume home meds as and when able. Amitriptyline on hold due to prolonged QT. Repeat EKG again tomorrow AM. DVT prophylaxis: We will resume Eliquis from today. CODE STATUS: Full code Disposition: Patient lives with and son, will likely need transition to SNF. Admission and Anticipated Discharge Date Admission Date: March 28, 2022 Subjective Patient seen and examined at bedside as a follow-up of recurrent falls and likely right knee fracture. Patient was lying in bed, on 4 L nasal cannula oxygen, NAD, denies any new acute events overnight. Patient reports eating okay moved bowels okay. Patient denies any chest pain or sore throat or cough. Patient reports feeling weak and tired. Patient denies any acute changes in her bowel or bladder habits. Patient reports pain under control. Physical Exam Physical Exam: GENERAL: Alert and oriented x3. NAD, on 4L NC O2. HEENT: No pallor, no icterus. Pupils equal, round and reactive to light. Oral mucosa moist. NECK: No JVD, no neck masses. HEART: S1 and S2 heard. Regular rate and rhythm. Systolic murmur at Aortic > pulmonic area, no gallop. RESPIRATORY SYSTEM: Normal AP diameter. No accessory muscle use. No wheezing, no crackles. ABDOMEN: Soft, bowel sounds present, nontender, no distention. CENTRAL NERVOUS SYSTEM: No facial droop. Speech is clear. Obeys simple commands. Moves extremities. EXTREMITIES: trace ble edema, LE bruises noted. Results & Data Results & Data ([facility]) Vital Signs (Past 12 Hours) Vital Signs Temp Pulse Pulse Resp BP Pulse Ox O2 Del Method 03/29/22 13:16 62 14 92 Nasal Cannula 03/29/22 10:58 37.0 C 61 18 111/71 96 Nasal Cannula 03/29/22 08:00 Nasal Cannula 03/29/22 08:27 36.9 C 98 H 18 114/77 99 Nasal Cannula 03/29/22 07:38 100 H 03/29/22 07:18 76 16 84 L Nasal Cannula O2 Flow Rate 03/29/22 13:16 4 03/29/22 10:58 4 03/29/22 08:00 4 03/29/22 08:27 4 03/29/22 07:38 03/29/22 07:18 2
[2022-03-29] MEDS: NIFEdipine EXTENDED REL 30 MG TABCR PO SCH (22:06)
[2022-03-29] MEDS: MONTELUKAST SODIUM 10 MG TABLET PO SCH (22:07)
[2022-03-29] MEDS: APIXABAN 2.5 MG TAB PO SCH (22:12)
[2022-03-30] MEDS: LEVALBUTEROL 1.25MG/0.5ML NEB NEB SCH ×4 (00:24→19:02)
--- NOTE | 2022-03-30 05:27 | Electrocardiogram Report ---
Test Reason : Blood Pressure : / mmHG Vent. Rate : 092 BPM Atrial Rate : 092 BPM P-R Int : 190 ms QRS Dur : 160 ms QT Int : 426 ms P-R-T Axes : 059 020 132 degrees QTc Int : 526 ms Normal sinus rhythm Left bundle branch block Abnormal ECG When compared with ECG of 07-MAR-2022 22:40, No significant change was found Confirmed by Сергей Harmon ([id number]) on 03/30/2022 5:26:24 AM Referred By: Confirmed By:Сергей Harmon
[2022-03-30] MEDS: LEVOTHYROXINE SODIUM 50 MCG TABLET PO SCH (05:52)
[2022-03-30 07:36] LABS: Hematocrit (blood only) 22.8 % (34.1-44.9); Hemoglobin 7.5 g/dl (12.0-16.0); Mean Corpuscular Hemoglobin 36.1 pg (25.0-34.0); Mean Corpuscular Hgb Conc 32.9 g/dL (32.0-36.0); Mean Corpuscular Volume 109.6 fL (80.0-100.0); Mean Platelet Volume 9.8 fL (9.4-12.3); Platelet Count 261 K/uL (130-400); RDW Coefficient of Variation 14.9 % (11.5-14.5); RDW Standard Deviation 60.5 fL (36.4-46.3); Red Blood Count 2.08 M/uL (3.93-5.22); White Blood Count 6.14 K/ul (4.8-10.8)
[2022-03-30 08:01] LABS: BUN Creatinine Ratio 15.4 (10-20); Calcium 8.4 mg/dl (8.5-10.1); Creatinine Clr Calc Pharmacy 43.1 ml/min; Magnesium 1.7 mg/dl (1.7-2.4); Phosphorus 3.3 mg/dl (2.5-4.9); Potassium 3.6 mmol/L (3.5-5.1)
[2022-03-30] MEDS: DOXYCYCLINE HYCLATE 100 MG CAP PO SCH ×2 (09:17→20:57)
[2022-03-30] MEDS: ACETAMINOPHEN 325 MG TAB PO PRN ×3 (09:17→20:55)
[2022-03-30] MEDS: ATORVASTATIN 20 MG TAB PO SCH (09:17)
[2022-03-30] MEDS: carvediloL 12.5 MG TAB PO SCH ×2 (09:17→20:57)
[2022-03-30] MEDS: DULoxetine HCL 30 MG CAP PO SCH (09:18)
[2022-03-30] MEDS: FUROSEMIDE 20 MG TAB PO SCH (09:18)
[2022-03-30] MEDS: FLUTICASONE/VILANTEROL 100/25MCG 14 PUFFS/INHALER INH SCH (09:18)
[2022-03-30] MEDS: predniSONE 20 MG TAB PO SCH (09:19)
[2022-03-30] MEDS: PANTOprazole 40 MG TAB PO SCH (09:19)
[2022-03-30] MEDS: guaiFENesin 600 MG TABCR PO SCH ×2 (09:19→20:56)
[2022-03-30 14:59] LABS: Hematocrit (blood only) 28.7 % (34.1-44.9); Hemoglobin 9.4 g/dl (12.0-16.0)
--- NOTE | 2022-03-30 15:24 | Orthopedic Progress Note ---
Date of Service March 30, 2022 Assessment & Plan (1) Right knee pain: Plan: Patient was reminded about her knee injury. She may continue with PT. We will obtain bracing for her to improve her stability and minimize risk of falling. Current pc support specialist is unavailable and I will make arrangements for Breg bracing to fit her. Follow up in the office as scheduled. Admission and Anticipated Discharge Date Admission Date: March 28, 2022 Subjective Patient is seen in her room this morning. She is currently working with physical therapy. She has no complaints at this point other than some mild right lateral knee pain. She also notes some mild right medial knee pain. No other complaints at this time. She has been up and out of bed and has ambulated to the bathroom. She does not have her brace yet. Physical Exam Physical Exam: General: Well-developed, well-nourished, elderly white female, in no acute distress. Sitting in bed. Alert and oriented. Conversive. Skin: Warm and dry with good turgor. No rashes. No intra-articular effusion. Musculoskeletal: Patient has intact motor function to the right knee. She is able to perform straight leg raise. Excellent flexion and extension. No pain with palpation over the quadriceps tendon, patella, or patellar tendon. She does have some discomfort with palpation over the medial and lateral joint lines. Stable collateral ligaments. Intact motor function of the ankle. Neurologic: Gross sensation is intact across the right and left legs by soft touch. Peripheral pulses are 2+. Results & Data ([facility]) Vital Signs (Past 12 Hours) Vital Signs Temp Pulse Pulse Resp BP BP Pulse Ox 03/30/22 13:36 80 18 96 03/30/22 11:00 36.8 C 65 16 116/73 93 03/30/22 08:00 03/30/22 08:00 99 H 03/30/22 06:57 77 18 94 03/30/22 06:45 36.6 C 76 20 111/70 93 03/30/22 03:52 36.8 C 92 H 20 110/70 98 O2 Del Method O2 Flow Rate 03/30/22 13:36 Nasal Cannula 2 03/30/22 11:00 Nasal Cannula 2 03/30/22 08:00 Room Air, Nasal Cannula 2 03/30/22 08:00 03/30/22 06:57 Nasal Cannula 2 03/30/22 06:45 2 03/30/22 03:52 2 : CHI (closed head injury) Qualifiers: Encounter type: initial encounter Qualified Code(s): S09.90XA - Unspecified injury of head, initial encounter Laceration of scalp Qualifiers: Encounter type: initial encounter Qualified Code(s): S01.01XA - Laceration without foreign body of scalp, initial encounter
--- NOTE | 2022-03-30 17:16 | Hospitalist Progress Note ---
Date of Service March 30, 2022 Assessment & Plan (1) Recurrent falls: Plan: 82-year-old female with history of CAD, A. fib on Eliquis, HTN, CKD stage III, asthma, COPD, PE/DVT, opiate dependence, hypothyroidism presented 03/28 to the ED with complaint of recurrent falls. 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 On the day of arrival, she fell backwards while using her walker with buttocks on the floor and head against the dressing cabinet. Patient denies any loss of consciousness/chest pain/palpitation around fall. She also reports having some dry cough and some dyspnea with exertion and find herself using oxygen mostly all day [usually uses oxygen at night only]. She denies fever. She is being managed for the following: #. Recurrent falls #. Generalized weakness and deconditioning #. Rt knee medial tibial plateau fracture Patient presenting with recurrent falls [see above], likely deconditioning and oxycodone contributing. 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 Patient takes oxycodone for generalized pain and some headaches. Admitting CXR/CTAP [w/ chronic T12 deformity]/C-spine CT/pelvic x-ray/chest CT/right ankle x-ray/left knee x-ray with no acute findings. Admitting head CT with left posterior scalp laceration and contusion, no calvarial fracture. No acute intracranial findings. Admitting right knee x-ray: Subtle acute fracture of the medial tibial plateau, tricompartmental osteoarthritis with a small joint effusion. Admitting BLE venous Doppler: No DVT, no change in chronic thrombus within the right common femoral and superficial femoral veins since ultrasound of July 07, 2021. Small bilateral calf fluid collection, follow-up ultrasound in 3 months to ensure resolution. Will use Tylenol for generalized pain and Voltaren gel/lidocaine patch for local pain. DC oxycodone. Lower the dose of tramadol, resume when QT improves. QTC still elevated. PT/OT evaluation, CM to assist with DC planning. Fall precaution. Orthopedics evaluated, conservative management with knee hinged brace, WBAT, PT, ice/elevate. Recommend against cortisone injection at this time. Follow-up in 10 to 14 days with [facility] orthopedics. #. Head laceration: Status post fall, status post mago at the ER, patient reports pain under control. Monitor HnH. HnH seemed dropped in AM, but PM HnH is reassuring, hence resuming eliquis which was held for AM dose. #. Mild elevation in troponin: Appears chronic. Patient with no chest pain. EKG without acute ST or T changes. #. Concern for COPD/asthma exacerbation Patient was admitted 03/08- for COPD exacerbation, discharged on prednisone and doxycycline. Improving O2 requirement. Admitting CT chest without acute findings. Continue with nebulization, prednisone 40 mg daily x 5 days, doxycycline twice daily, Mucinex #. Other chronic medical conditions: CAD, A. fib, HTN, CKD stage III, hypothyroidism, depression --> continue with/resume home meds as and when able. Amitriptyline on hold due to prolonged QT. Repeat EKG again tomorrow AM. DVT prophylaxis: on eliquis, AM dose held d/t concern of Hb drop but it went back up on repeat HnH, hence resuming again from evening. CODE STATUS: Full code Disposition: Patient lives with and son, if Hb stable malvin, should be able to go w/ PT/OT recs. Needs f/u w/ pcp office for suture removal in 1 week. Admission and Anticipated Discharge Date Admission Date: March 28, 2022 Subjective Patient seen and examined at bedside as a follow-up of recurrent falls and likely right knee fracture. Patient was lying in bed, on 2 L nasal cannula oxygen, NAD, denies any new acute events overnight. Patient reports eating okay moved bowels okay. Patient denies any chest pain or sore throat or cough. Patient reports feeling weak and tired. Patient denies any acute changes in her bowel or bladder habits. Patient reports pain under control. Scalp sutures intact, no signs of hematoma formation. Physical Exam Physical Exam: GENERAL: Alert and oriented x3. NAD, on 2L NC O2. HEENT: No pallor, no icterus. Pupils equal, round and reactive to light. Oral mucosa moist. Scalp w/ intact sutures/no bleeding or hematoma noted. NECK: No JVD, no neck masses. HEART: S1 and S2 heard. Regular rate and rhythm. Systolic murmur at Aortic > pulmonic area, no gallop. RESPIRATORY SYSTEM: Normal AP diameter. No accessory muscle use. No wheezing, no crackles. ABDOMEN: Soft, bowel sounds present, nontender, no distention. CENTRAL NERVOUS SYSTEM: No facial droop. Speech is clear. Obeys simple commands. Moves extremities. EXTREMITIES: trace ble edema, LE b/l knee bruises noted and stable. Results & Data Results & Data ([facility]) Vital Signs (Past 12 Hours) Vital Signs Temp Pulse Pulse Resp BP BP Pulse Ox 03/30/22 16:38 36.6 C 93 H 16 119/71 95 03/30/22 15:28 105 H 03/30/22 13:36 80 18 96 03/30/22 11:00 36.8 C 65 16 116/73 93 03/30/22 08:00 03/30/22 08:00 99 H 03/30/22 06:57 77 18 94 03/30/22 06:45 36.6 C 76 20 111/70 93 O2 Del Method O2 Flow Rate 03/30/22 16:38 Nasal Cannula 2 03/30/22 15:28 03/30/22 13:36 Nasal Cannula 2 03/30/22 11:00 Nasal Cannula 2 03/30/22 08:00 Room Air, Nasal Cannula 2 03/30/22 08:00 03/30/22 06:57 Nasal Cannula 2 03/30/22 06:45 2
[2022-03-30] MEDS ORDERED: IPRATROPIUM BROMIDE NEB SOLN 0.02% 2.5 ML VIAL INH PRN (19:48)
[2022-03-30] MEDS ORDERED: XOPENEX/ATROVENT 1.25mg/0.5MG NEB COMBO NEB PRN (19:48)
[2022-03-30] MEDS ORDERED: LEVALBUTEROL 1.25MG/0.5ML NEB INH PRN (19:48)
[2022-03-30] MEDS: MONTELUKAST SODIUM 10 MG TABLET PO SCH (20:56)
[2022-03-30] MEDS: NIFEdipine EXTENDED REL 30 MG TABCR PO SCH (20:56)
[2022-03-30] MEDS: APIXABAN 2.5 MG TAB PO SCH (20:57)
--- NOTE | 2022-03-30 21:53 | Electrocardiogram Report ---
Test Reason : Blood Pressure : / mmHG Vent. Rate : 099 BPM Atrial Rate : 099 BPM P-R Int : 172 ms QRS Dur : 158 ms QT Int : 420 ms P-R-T Axes : 067 032 117 degrees QTc Int : 539 ms Normal sinus rhythm Left bundle branch block Abnormal ECG When compared with ECG of 28-MAR-2022 09:29, No significant change was found Confirmed by Сергей Harmon ([id number]) on 03/30/2022 9:53:41 PM Referred By: REFERRED SELF Confirmed By:Сергей Harmon
[2022-03-31] MEDS: ACETAMINOPHEN 325 MG TAB PO PRN (02:21)
[2022-03-31] MEDS: LEVOTHYROXINE SODIUM 50 MCG TABLET PO SCH (05:35)
[2022-03-31 05:47] LABS: Hematocrit (blood only) 23.1 % (34.1-44.9); Hemoglobin 7.6 g/dl (12.0-16.0); Mean Corpuscular Hemoglobin 35.7 pg (25.0-34.0); Mean Corpuscular Hgb Conc 32.9 g/dL (32.0-36.0); Mean Corpuscular Volume 108.5 fL (80.0-100.0); Mean Platelet Volume 9.9 fL (9.4-12.3); Platelet Count 262 K/uL (130-400); RDW Coefficient of Variation 14.7 % (11.5-14.5); RDW Standard Deviation 58.9 fL (36.4-46.3); Red Blood Count 2.13 M/uL (3.93-5.22); White Blood Count 5.01 K/ul (4.8-10.8)
[2022-03-31 06:16] LABS: BUN Creatinine Ratio 16.1 (10-20); Calcium 8.2 mg/dl (8.5-10.1); Est GFR (African American) 53.7 ml/min; Est GFR (Non-African American) 46.4 ml/min; Magnesium 1.7 mg/dl (1.7-2.4); Potassium 3.6 mmol/L (3.5-5.1)
--- NOTE | 2022-03-31 06:17 | Electrocardiogram Report ---
Test Reason : Blood Pressure : / mmHG Vent. Rate : 094 BPM Atrial Rate : 094 BPM P-R Int : 176 ms QRS Dur : 168 ms QT Int : 436 ms P-R-T Axes : 046 020 147 degrees QTc Int : 545 ms Normal sinus rhythm Left bundle branch block Abnormal ECG When compared with ECG of 29-MAR-2022 05:35, No significant change was found Confirmed by Сергей Harmon ([id number]) on 03/31/2022 6:17:07 AM Referred By: REFERRED SELF Confirmed By:Сергей Harmon
[2022-03-31] MEDS: ATORVASTATIN 20 MG TAB PO SCH (08:12)
[2022-03-31] MEDS: DOXYCYCLINE HYCLATE 100 MG CAP PO SCH (08:13)
[2022-03-31] MEDS: DULoxetine HCL 30 MG CAP PO SCH (08:13)
[2022-03-31] MEDS: carvediloL 12.5 MG TAB PO SCH (08:13)
[2022-03-31] MEDS: FLUTICASONE/VILANTEROL 100/25MCG 14 PUFFS/INHALER INH SCH (08:13)
[2022-03-31] MEDS: predniSONE 20 MG TAB PO SCH (08:13)
[2022-03-31] MEDS: guaiFENesin 600 MG TABCR PO SCH (08:13)
[2022-03-31] MEDS: FUROSEMIDE 20 MG TAB PO SCH (08:13)
[2022-03-31] MEDS: PANTOprazole 40 MG TAB PO SCH (08:13)
--- NOTE | 2022-03-31 12:05 | Electrocardiogram Report ---
Test Reason : Blood Pressure : / mmHG Vent. Rate : 100 BPM Atrial Rate : 100 BPM P-R Int : 174 ms QRS Dur : 162 ms QT Int : 420 ms P-R-T Axes : 059 042 134 degrees QTc Int : 541 ms Normal sinus rhythm Left bundle branch block Abnormal ECG When compared with ECG of 30-MAR-2022 05:43, No significant change was found Confirmed by Vimal Knowles ([id number]) on 03/31/2022 12:05:33 PM Referred By: REFERRED SELF Confirmed By:Vimal Knowles
[2022-03-31 13:11] LABS: Hematocrit (blood only) 25.1 % (34.1-44.9); Hemoglobin 8.2 g/dl (12.0-16.0)
--- NOTE | 2022-03-31 15:41 | Discharge Summary ---
Date of Service March 31, 2022 Admission HPI Per Admitting Provider 82 year old female with history of CAD, A fib on eliquis, HTN, CKD 3, Asthma/COPD, PE/DVT, Opioid Dependence, Hypothyroidism, etc presenting with recurrent falls. Patient was admitted to [facility] last 03/08- for COPD exacerbation. She finished a 5 day course of Prednisone and Doxycycline. As per patient, she has been feeling weak, lightheaded while walking for the past week, resulting to recurrent falls, mostly everyday. Today, she feel backwards while using her walker, hitting her head on the floor. no chest pain, palpitations She reports that she is still having dry cough, and some dyspnea- have been usin g her home O2 mostly all day (usually using at HS only). No fever/chills, chest pain, abdominal pain, nausea/vomiting, problems with urination or BM. No other symptoms. Admission Exam Per Admitting Provider General- oriented x 3, not in distress, speaks in sentences with no effort or accessory muscle use appears weak Head- atraumatic Eyes- PERRL, EOMI, anicteric ENT- oropharynx clear Neck- supple, no JVD, no adenopathy, no thyromegaly; carotids +2/2, no bruits appreciated Lungs- (+) wheezing- mild, BL good air entry BL Heart- normal rate, regular rhythm; no murmur, no gallop, no rub appreciated Abdomen- normal bowel sounds, nondistended, soft, nontender, no masses or hepatosplenomegaly Extremities- (+) Bruising BL Knees (+) mild R lower leg and foot edema- no erythema, warmth, (+) mild tenderness Left Lower Ext:no pretibial edema, no calf tenderness; peripheral pulses intact Neuro- alert, oriented x 3; CN 2-12 grossly intact; motor 5/5 bilaterally;sensation 100% on all extremities; no other gross focal neurologic deficits Skin- warm & dry Principal Diagnosis Recurrent falls Generalized weakness and deconditioning Right knee medial tibial plateau fracture Bilateral calf fluid collection x small, follow-up ultrasound in 3 months Head laceration COPD/asthma exacerbation Discharge Exam GENERAL: Alert and oriented x3. NAD, on 2L NC O2. HEENT: No pallor, no icterus. Pupils equal, round and reactive to light. Oral mucosa moist. Scalp w/ intact sutures/no bleeding or hematoma noted. NECK: No JVD, no neck masses. HEART: S1 and S2 heard. Regular rate and rhythm. Systolic murmur at Aortic > pulmonic area, no gallop. RESPIRATORY SYSTEM: Normal AP diameter. No accessory muscle use. No wheezing, no crackles. ABDOMEN: Soft, bowel sounds present, nontender, no distention. CENTRAL NERVOUS SYSTEM: No facial droop. Speech is clear. Obeys simple commands. Moves extremities. EXTREMITIES: trace ble edema, LE b/l knee bruises noted and stable. Discharge Data Allergies Allergy/AdvReac Type Severity Reaction Status Date / Time aspirin Allergy Unknown Unknown Verified 03/28/22 14:22 Sulfa (Sulfonamide Allergy Unknown Unknown Verified 03/28/22 14:22 Antibiotics) Consultations 03/28/22 13:47 ED Decision to Admit Stat 03/28/22 18:18 Consult Orthopedic Surgery Routine Ordered Studies 03/28/22 10:26 CT abd pelvis IV con only Stat 03/28/22 10:27 CT cervical spine wo con Stat CT head/brain wo con Stat 03/28/22 14:47 CT chest diagnostic wo con Stat 03/28/22 15:23 US venous doppler [facility] Urgent Hospital Course (1) Recurrent falls: 82-year-old female with history of CAD, A. fib on Eliquis, HTN, CKD stage III, asthma, COPD, PE/DVT, opiate dependence, hypothyroidism presented 03/28 to the ED with complaint of recurrent falls. 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 On the day of arrival, she fell backwards while using her walker with buttocks on the floor and head against the dressing cabinet. Patient denies any loss of consciousness/chest pain/palpitation around fall. She also reports having some dry cough and some dyspnea with exertion and find herself using oxygen mostly all day [usually uses oxygen at night only]. She denies fever. She was managed for the following: #. Recurrent falls #. Generalized weakness and deconditioning #. Rt knee medial tibial plateau fracture Patient presenting with recurrent falls [see above], likely deconditioning and oxycodone contributing. 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 Patient takes oxycodone for generalized pain and some headaches. Admitting CXR/CTAP [w/ chronic T12 deformity]/C-spine CT/pelvic x-ray/chest CT/right ankle x-ray/left knee x-ray with no acute findings. Admitting head CT with left posterior scalp laceration and contusion, no calvarial fracture. No acute intracranial findings. Admitting right knee x-ray: Subtle acute fracture of the medial tibial plateau, tricompartmental osteoarthritis with a small joint effusion. Admitting BLE venous Doppler: No DVT, no change in chronic thrombus within the right common femoral and superficial femoral veins since ultrasound of July 07, 2021. Small bilateral calf fluid collection, follow-up ultrasound in 3 months to ensure resolution. Pt and her made aware. Will use Tylenol for generalized pain and Voltaren gel/lidocaine patch for local pain. DC'd oxycodone. Pt to continue w/ PT as Outpatient. Fall precaution. Orthopedics evaluated, conservative management with knee hinged brace, WBAT, PT, ice/elevate. Follow-up in 10 to 14 days with [facility] orthopedics. #. Head laceration: Status post fall, status post mago at the ER, patient reports pain under control. HnH stable, pt to f/u w/ PCP office in a week time for suture removal. #. Mild elevation in troponin: Appears chronic. Patient with no chest pain. EKG without acute ST or T changes. #. Concern for COPD/asthma exacerbation Patient was admitted 03/08- for COPD exacerbation, discharged on predni sone and doxycycline. Improving O2 requirement. Admitting CT chest without acute findings. Continue with nebulization, prednisone 40 mg daily x 5 days, doxycycline twice daily, Mucinex. #. Other chronic medical conditions: CAD, A. fib, HTN, CKD stage III, hypothyroidism, depression --> continue with/resume home meds as and when able. CODE STATUS: Full code Patient being discharged home with home health with following instructions at the point of discharge [instructions were also communicated to patient's Shaq over the phone]: Follow-up with your primary care physician in a week time for transition of care evaluation and scalp suture removal. For your right knee fracture, you are provided with a knee hinged brace which you can wear when out of bed. Follow-up with [facility] orthopedics in 10 days upon discharge. You are supposed to continue with physical therapy as an outpatient. Will discontinue oxycodone. You can use Tylenol for generalized pain and OTC Voltaren gel/lidocaine patch for local pain. You are being discharged on antibiotics for 5 days and 1 day of prednisone to complete the course for your COPD/asthma exacerbation. You will need to get ultrasound of BLE to document the resolution of small bilateral calf fluid collection that was noted while you were inpatient. Get your blood work CBC and CMP done in a week time and have the results forwarded to your primary care physician. Take your medications as prescribed. Total Time Total Time Spent Total Time Spent (In Minutes): 45 Discharge Plan Discharge Items Patient Disposition: Home - Home Health Services Reason For Visit: RECURRENT FALLS Discharge Diagnosis: Recurrent falls Generalized weakness and deconditioning Right knee medial tibial plateau fracture Bilateral calf fluid collection x small, follow-up ultrasound in 3 months Head laceration COPD/asthma exacerbation Activity: Resume your previous activity Activity Comment: Avoid falls, insitute fall precautions at home. Non-emergency contact: Primary Care Provider Call non-emergency contact if: you have any medication questions, your symptoms worsen, your pain is not controlled and your temperature is above 101 Follow-up/Referrals: Giorgio Salas DO [Primary Care Provider] - Angel Lin MD [Physician] - Diet: Heart Healthy Diet Texture: Easy to Chew Addtl Attending Provider Instructions: Follow-up with your primary care physician in a week time for transition of care evaluation and scalp suture removal. For your right knee fracture, you are provided with a knee hinged brace which you can wear when out of bed. Follow-up with [facility] orthopedics in 10 days upon discharge. You are supposed to continue with physical therapy as an outpatient. Will discontinue oxycodone. You can use Tylenol for generalized pain and OTC Voltaren gel/lidocaine patch for local pain. You are being discharged on antibiotics and 1 day of prednisone to complete the course for your COPD/asthma exacerbation. You will need to get ultrasound of BLE to document the resolution of small bilateral calf fluid collection that was noted while you were inpatient. Get your blood work CBC and CMP done in a week time and have the results forwarded to your primary care physician. Take your medications as prescribed. Addtl Guidance Counselor Provider Instructions: Orthopedic Discharge Instructions: -Knee hinged brace for right knee. You may freely move your knee as tolerated. You may remove brace to shower and for physical therapy. -You may weight bear as tolerated on your right leg, using the walker to assist you in ambulation -We recommend outpatient physical therapy -Frequently ice and elevate your right leg to help control pain and swelling. You should ice at least 20 minutes 5 times a day -Please follow up with Dr Angel Lin with [facility] Orthopedics in 10-14 days. Pending Studies at Discharge: No Stand-Alone Forms: [facility] [employer], Smoking Cessation Medications and DC Order Prescriptions: New doxycycline hyclate 100 mg Capsule 100 mg PO BID 5 Days Qty: 10 0RF prednisone 20 mg Tablet 40 mg PO DAILY 1 Days Qty: 2 0RF Continued duloxetine 30 mg capsule,delayed release(DR/EC) 30 mg PO QAM Rx Instructions: TOTAL DOSE 90 MG--TAKES WITH 60 MG CAP. pantoprazole 40 mg tablet,delayed release (DR/EC) 40 mg PO DAILY levothyroxine 50 mcg tablet 50 mcg PO DAILYBB carvedilol 12.5 mg tablet 12.5 mg PO BID alendronate 70 mg tablet 70 mg PO WK Rx Instructions: TAKE THIS MEDICATION EVERY SATURDAY amitriptyline 25 mg tablet 25 mg PO HS montelukast 10 mg tablet 10 mg PO HS albuterol sulfate [Ventolin HFA] 90 mcg/actuation Hfa Aerosol Inhaler 2 puff INHALATION Q4 PRN (Reason: Shortness Of Breath Or Wheezing) atorvastatin 20 mg tablet 20 mg PO DAILY sumatriptan succinate 100 mg tablet 100 mg PO UD PRN (Reason: Migraine Headache) albuterol sulfate 2.5 mg /3 mL (0.083 %) Solution For Nebulization 2.5 mg INHALATION Q4H PRN (Reason: Wheezing) cholecalciferol (vitamin D3) 25 mcg (1,000 unit) Capsule 25 mcg PO DAILY lisinopril 5 mg tablet 5 mg PO DAILY gabapentin 100 mg capsule 200 mg PO TID acetaminophen [Tylenol] 325 mg Tablet 650 mg PO Q6H PRN (Reason: PAIN/FEVER) furosemide 20 mg tablet 20 mg PO QAM fluticasone propion-salmeterol [Advair Diskus] 100-50 mcg/dose Blister With Device 1 inh INHALATION BID duloxetine 60 mg capsule,delayed release(DR/EC) 60 mg PO QAM Rx Instructions: TOTAL DOSE 90 MG--TAKES WITH 30 MG CAP. Vitron-C 65 mg iron- 125 mg Tablet,Delayed Release (Dr/Ec) 1 tab PO DAILY nifedipine [Procardia XL] 30 mg Tablet Extended Release 24 Hr 30 mg PO HS Qty: 30 0RF ascorbic acid (vitamin C) [Vitamin C] 500 mg Tablet 250 mg PO DAILY@1100 Qty: 20 0RF apixaban 2.5 mg tablet 2.5 mg PO BID Qty: 60 0RF Discontinued oxycodone 5 mg Tablet 5 mg PO BID PRN (Reason: pain) Qty: 20 0RF Discharge Orders: Discharge Order (Routine); Ordered 03/31/22 Ordered By: Ethan Jackson Admission Data Admit Date/Time: 03/28/22 14:45 Attending Provider: Ethan Jackson Admit Provider: Luis Whyte Primary Care Provider: Giorgio Salas Other Providers: Luis Whyte ; Angel Lin ; [facility],Home Healthcare
== END 2022-03-31 18:33 | disposition home health service (06) | DRG 563 ==
LOC: ED 09:21 → 2N 14:45 → SUATTDRO 14:45 → 2N 16:52

== ENCOUNTER 2023-01-01 11:28 | Inpatient (IN) ==
--- NOTE | 2023-01-01 11:58 | Emergency Department Note ---
Impression & Plan Left leg weakness, Falls frequently, Contusion of knee, right, Contusion of hip, right, Fracture of right shoulder, Urinary tract infection ED Provider Note NAME: BEV ALDRIDGE AGE: 82 SEX: F : 1940 ARRIVES VIA: Ambulance INFORMANT: Patient, ED PROVIDER(S): Vimal Joy DO CHIEF COMPLAINT: Leg pain HPI: The patient is an 82-year-old female who presented to the emergency department for an evaluation of leg pain. The patient states that when she awoke this morning at 8 AM she could not use her left leg. She thought it would get better throughout the morning. She continued to wait in the leg continued to not work as well as usual. The patient then went to stand when she had tried to pivot she fell onto her right side. She states that she has a history of frequent falls. She does take blood thinners for history of a flutter. She states that she has been compliant with her outpatient medications. She states that she was unable to bear weight because of right leg pain. She states the pain is mostly from her knee all the way to her hip. She also injured her right shoulder and her back. She denies having any headaches. She denies having any nausea or vomiting. She does complain of some shortness of breath which is not new for her. ROS: See above HPI for pertinent positives & negatives. A total of 10 systems reviewed and were otherwise negative. PAST MEDICAL HISTORY: See Below PAST SURGICAL HISTORY: See Below FAMILY HISTORY: See Below SOCIAL HISTORY: See Below HOME MEDICATIONS: See Below ALLERGIES: See Below VITALS: See Below PHYSICAL EXAMINATION: GENERAL: The patient is awake and alert. She is nonanxious appearing. EYES: The conjunctivae are clear. The pupils are round and reactive. EARS, NOSE, MOUTH AND THROAT: The nose is without any evidence of any deformity. Mucous membranes are dry. NECK: The neck is nontender and supple. RESPIRATORY: Diminished breath sounds are noted throughout. There is mild tachypnea. CARDIOVASCULAR: Regular rate and rhythm noted there no murmurs rubs or gallops normal S1 normal S2. GASTROINTESTINAL: The abdomen is soft. Abdomen is nontender. BACK: Midline tenderness was noted only in the low lumbar spine. Range of motion appears intact. MUSCULOSKELETAL/EXTREMITIES: There is deformity and shortening of the right leg. There is palpable tenderness over the right knee all the way to the right groin. There does appear to be symmetric swelling around the right thigh. SKIN: Skin is warm and dry. Pedal edema was noted bilaterally. NEUROLOGIC: Patient is awake alert and oriented x3. There is no drift in the upper extremities. The patient is unable to lift the left leg off the bed. MEDICAL DECISION MAKING: The patient is an 82-year-old female who presented to the emergency department for an evaluation of multiple complaints. The patient states that she could not lift her left leg and because of that she fell onto her right side. She states she woke with the symptoms so she was not made a stroke alert. The patient also had pain in her right leg her right hip as well as her right shoulder. I discussed the patient's laboratory and radiographic studies with her. She was treated with IV fluids as well as IV antibiotics for presumed urinary tract infection. Given her findings as well as her overall condition I discussed her condition with the on-call [facility]. They have agreed to evaluate the patient in the emergency department for further management and disposition. Triage Nursing notes reviewed. Prior medical records reviewed Vital Signs: reviewed and remarkable for elevated blood pressure Differential diagnosis: Infection, dehydration, metabolic abnormality, hypo/hyperglycemia, electrolyte disturbance, anemia, hypoxia, cardiac sources, intracerebral event, toxicologic, neurologic, as well as other pathologies. ER treatment provided: See below Diagnostics interpreted by me: ECG: EKG was obtained in the emergency department. My interpretation is sinus rhythm at 88 bpm. There were no PVCs noted. Left bundle branch block pattern was noted. This was compared to a tracing from March 31, 2022. No changes were noted. Cardiac Monitoring: An order was placed for continuous cardiac monitoring. The monitor shows a rate of 93 bpm with sinus rhythm Laboratory studies: As stated above and show below. Imaging studies: See below. Radiographic imaging was reviewed by myself Consultation(s): I discussed this case with the on-call [facility] group. They will evaluate the patient in the emergency department. Past Med/Surg History Medical History Acute kidney injury Asthma USES PRN INH 1 X WK Atrial flutter PT COULD NOT CONFIRM Chronic anticoagulation Chronic left hip pain Diffuse myofascial pain syndrome History of DVT (deep vein thrombosis) RLE - 20 YEARS AGO FOLLOWING INJURY History of endometriosis History of DC (myocardial infarction) 2018 - FOLLOWS W/ DR. JACOBSEN History of pulmonary embolism Hypertension Hypothyroidism Migraine On anticoagulant therapy On home oxygen therapy 2 LPM 02 QHS Opioid dependence Osteoarthritis Osteoporosis Poor historian Pulmonary edema Pulmonary embolism (10/10/12) 20 YEARS AGO AFTER INJURY 30 YEARS AGO - POST OP CHOLEYCYSTECTOMY ON WARFARIN Sleep apnea NO DEVICE Surgical History History of appendectomy History of cardiac cath 2017 - [place] - NO STENTS History of cataract surgery History of section History of cholecystectomy History of colonoscopy History of esophagogastroduodenoscopy (EGD) History of left knee surgery History of tonsillectomy History of total abdominal hysterectomy and bilateral salpingo-oophorectomy History of tubal ligation Family History Father Esophageal cancer Social History Smoking Status: Never smoker Second Hand Exposure: No; Do You Dip or Chew Tobacco: No; Hx Alcohol Use: No Hx Substance Use: No Preferred Language: Macanese Communication Ability: Effective Visual Impairment: No Limitations Hearing Ability: Normal Detail Supervisor Required: No Beliefs That Will Affect Care: None marital status: Current Living Situation: Spouse Current Living Situation Comment: [employer] current occupational status: retired Feels Safe at Home: Yes Assistive Devices: Walker and Wheelchair Allergies Allergies Allergy/AdvReac Type Severity Reaction Status Date / Time aspirin Allergy Unknown Unknown Verified 03/28/22 14:22 Sulfa (Sulfonamide Allergy Unknown Unknown Verified 03/28/22 14:22 Antibiotics) Home Meds Home Medications Medication Instructions Recorded Confirmed albuterol sulfate 90 mcg/actuation 2 puff inhalation Q4 PRN Shortness 11/10/18 0 03/28/22 aerosol inhaler (Ventolin HFA) Of Breath Or Wheezing alendronate 70 mg tablet 70 mg PO WK 11/10/18 03/28/22 amitriptyline 25 mg tablet 25 mg PO HS 11/10/18 03/28/22 carvedilol 12.5 mg tablet 12.5 mg PO BID 11/10/18 03/28/22 montelukast 10 mg tablet 10 mg PO HS 11/10/18 03/28/22 duloxetine 30 mg capsule,delayed 30 mg PO QAM 02/28/19 03/28/22 release pantoprazole 40 mg tablet,delayed 40 mg PO DAILY 07/22/19 03/28/22 release atorvastatin 20 mg tablet 20 mg PO DAILY 10/11/19 03/28/22 levothyroxine 50 mcg tablet 50 mcg PO DAILYBB 01/15/20 03/28/22 sumatriptan succinate 100 mg tablet 100 mg PO UD PRN Migraine Headache 06/27/20 03/28/22 albuterol sulfate 2.5 mg/3 mL 2.5 mg inhalation Q4H PRN Wheezing 01/06/21 03/28/22 (0.083 %) solution for nebulization cholecalciferol (vitamin D3) 25 25 mcg PO DAILY 01/06/21 03/28/22 mcg (1,000 unit) capsule gabapentin 100 mg capsule 200 mg PO TID 07/07/21 03/28/22 acetaminophen 325 mg tablet 650 mg PO Q6H PRN PAIN/FEVER 03/07/22 03/28/22 (Tylenol) duloxetine 60 mg capsule,delayed 60 mg PO QAM 03/07/22 03/28/22 release fluticasone 100 mcg-salmeterol 50 1 inh inhalation BID 03/07/22 03/28/22 mcg/dose blistr powdr for inhalation (Advair Diskus) furosemide 20 mg tablet 20 mg PO QAM 03/07/22 03/28/22 iron,carbonyl 65 mg-vitamin C 125 1 tab PO DAILY 03/07/22 03/28/22 mg tablet,delayed release (Vitron-C) lisinopril 5 mg tablet 5 mg PO DAILY 03/28/22 03/28/22 Previous Rx's Medication Instructions Recorded apixaban 2.5 mg tablet 2.5 mg PO BID #60 tabs 03/09/22 ascorbic acid (vitamin C) 500 mg 250 mg PO DAILY@1100 #20 tabs 03/09/22 tablet (Vitamin C) nifedipine 30 mg tablet,extended 30 mg PO HS #30 tabs 03/09/22 release 24 hr (Procardia XL) Results & Data (ED) Vital Signs Vital Signs - 24 hr 01/01/23 11:58 01/01/23 11:47 01/01/23 12:21 Temperature 37 C Temperature Source Oral Pulse Rate 91 H 98 H Pulse Rhythm Regular Pulse Strength Normal Respiratory Rate 18 18 Respiratory Effort / Characteristics Spontaneous Respiratory Depth Normal Respiratory Pattern Regular Blood Pressure 155/100 H Blood Pressure Mean 118 Blood Pressure Position Lying Pulse Oximetry 92 94 Oxygen Delivery Method Room Air Room Air Sepsis Recent Fever Within 48 Hours No Sepsis New/Unexplained Change in Mental Status N/A Sepsis Action Taken by Nursing No Action Required 01/01/23 15:34 01/01/23 16:00 Temperature Temperature Source Pulse Rate 92 H 93 H Pulse Rhythm Regular Pulse Strength Respiratory Rate 24 20 Respiratory Effort / Characteristics Respiratory Depth Respiratory Pattern Blood Pressure 156/80 H Blood Pressure Mean 105 Blood Pressure Position Pulse Oximetry 93 92 Oxygen Delivery Method Room Air Sepsis Recent Fever Within 48 Hours Sepsis New/Unexplained Change in Mental Status Sepsis Action Taken by Shelter Medications Current Medication List: was personally reviewed by me Laboratory Data Attestation: I reviewed the patient's lab results. 01/01/23 12:20 01/01/23 12:20 Lab Results 01/01/23 01/01/23 01/01/23 Range/Units 12:20 12:20 12:20 WBC 6.32 (4.8-10.8) K/ul RBC 3.05 L (4.20-5.40) M/uL Hgb 11.4 L (12.0-16.0) g/dl Hct 35.1 L (37.0-47.0) % MCV 115.1 H (80.0-100.0) fL MCH 37.4 H (25.0-34.0) pg MCHC 32.5 (32.0-36.0) g/dL RDW Std Deviation 53.6 H (36.4-46.3) fL RDW Coeff of Vijay 12.5 (11.5-14.5) % Plt Count 194 (130-400) K/uL MPV 9.7 (9.4-12.4) fL Immature Gran % (Auto) 0.2 % Neut % (Auto) 67.7 % Lymph % (Auto) 18.5 % Simpson % (Auto) 5.2 % Eos % (Auto) 7.6 % Baso % (Auto) 0.8 % Neut # (Auto) 4.28 (1.40-6.50) K/uL Lymph # (Auto) 1.17 L (1.2-3.4) K/uL Simpson # (Auto) 0.33 (0.11-0.59) K/uL Eos # (Auto) 0.48 (0-0.50) K/uL Baso # (Auto) 0.05 (0-0.2) K/uL Immature Gran # (Auto) 0.01 (0.01-0.20) K/uL Macrocytosis Present PT 10.9 (9.0-12.0) Seconds INR 1.0 (0.9-1.1) APTT 23.6 (21.0-31.0) Seconds PTT Ratio 0.8 VBG pH (7.36-7.41) VBG pCO2 (38-50) mmHg VBG pO2 mmHg VBG HCO3 mmol/L VBG O2 Saturation % VBG Base Excess mEq/L Sodium 141 (136-145) mmol/L Potassium 4.2 (3.5-5.1) mmol/L Chloride 109 H (98-107) mmol/L Carbon Dioxide 26 (21-32) mmol/L Anion Gap 6 (3-11) BUN 24 H (6-23) mg/dl Creatinine 1.35 H (0.6-1.2) mg/dl Est Cr Clr Drug Dosing 38.1 ml/min Est GFR ( Amer) 42.9 ml/min Est GFR (Non-Af Amer) 37.0 ml/min BUN/Creatinine Ratio 17.8 (10-20) Glucose 82 (70-99(Fasting)) mg/dl Calcium 9.2 (8.6-10.3) mg/dl Magnesium 1.9 (1.7-2.4) mg/dl Total Bilirubin 0.6 (0.2-1.0) mg/dl AST 18 (13-39) U/L ALT 9 (7-52) U/L Alkaline Phosphatase 62 (34-104) U/L Total Creatine Kinase 34 (26-192) U/L Troponin I High Sens 16.4 H (0-14) pg/ml Total Protein 6.5 (6.0-8.3) gm/dl Albumin 3.6 (3.4-5.0) gm/dl Globulin 2.9 (2.5-4.0) gm/dl Albumin/Globulin Ratio 1.2 (0.9-2) TSH (0.300-4.500) uIu/ml Urine Color Urine Appearance (Clear) Urine pH (4.5-7.5) Ur Specific Baxter (1.000-1.030) Urine Protein (Negative) Urine Glucose (UA) (Negative) Urine Ketones (Negative) Urine Blood (Negative) Urine Nitrite (Negative) Urine Bilirubin (Negative) Urine Urobilinogen (Negative) Ur Leukocyte Esterase (Negative) Urine WBC (Auto) (0-5) /hpf Urine RBC (Auto) (0-4) /hpf U Hyaline Cast (Auto) (0-5) /lpf U Epithel Cells (Auto) (0-5) /lpf Urine Bacteria (Auto) (Negative) SARS-CoV-2, RNA, NAAT (NEGATIVE) 01/01/23 01/01/23 01/01/23 Range/Units 12:20 12:45 14:04 WBC (4.8-10.8) K/ul RBC (4.20-5.40) M/uL Hgb (12.0-16.0) g/dl Hct (37.0-47.0) % MCV (80.0-100.0) fL MCH (25.0-34.0) pg MCHC (32.0-36.0) g/dL RDW Std Deviation (36.4-46.3) fL RDW Coeff of Vijay (11.5-14.5) % Plt Count (130-400) K/uL MPV (9.4-12.4) fL Immature Gran % (Auto) % Neut % (Auto) % Lymph % (Auto) % Simpson % (Auto) % Eos % (Auto) % Baso % (Auto) % Neut # (Auto) (1.40-6.50) K/uL Lymph # (Auto) (1.2-3.4) K/uL Simpson # (Auto) (0.11-0.59) K/uL Eos # (Auto) (0-0.50) K/uL Baso # (Auto) (0-0.2) K/uL Immature Gran # (Auto) (0.01-0.20) K/uL Macrocytosis PT (9.0-12.0) Seconds INR (0.9-1.1) APTT (21.0-31.0) Seconds PTT Ratio VBG pH 7.28 L (7.36-7.41) VBG pCO2 52 H (38-50) mmHg VBG pO2 27 mmHg VBG HCO3 24 mmol/L VBG O2 Saturation < 60.0 % VBG Base Excess -3.0 mEq/L Sodium (136-145) mmol/L Potassium (3.5-5.1) mmol/L Chloride (98-107) mmol/L Carbon Dioxide (21-32) mmol/L Anion Gap (3-11) BUN (6-23) mg/dl Creatinine (0.6-1.2) mg/dl Est Cr Clr Drug Dosing ml/min Est GFR ( Amer) ml/min Est GFR (Non-Af Amer) ml/min BUN/Creatinine Ratio (10-20) Glucose (70-99(Fasting)) mg/dl Calcium (8.6-10.3) mg/dl Magnesium (1.7-2.4) mg/dl Total Bilirubin (0.2-1.0) mg/dl AST (13-39) U/L ALT (7-52) U/L Alkaline Phosphatase (34-104) U/L Total Creatine Kinase (26-192) U/L Troponin I High Sens (0-14) pg/ml Total Protein (6.0-8.3) gm/dl Albumin (3.4-5.0) gm/dl Globulin (2.5-4.0) gm/dl Albumin/Globulin Ratio (0.9-2) TSH 1.959 (0.300-4.500) uIu/ml Urine Color Urine Appearance (Clear) Urine pH (4.5-7.5) Ur Specific Baxter (1.000-1.030) Urine Protein (Negative) Urine Glucose (UA) (Negative) Urine Ketones (Negative) Urine Blood (Negative) Urine Nitrite (Negative) Urine Bilirubin (Negative) Urine Urobilinogen (Negative) Ur Leukocyte Esterase (Negative) Urine WBC (Auto) (0-5) /hpf Urine RBC (Auto) (0-4) /hpf U Hyaline Cast (Auto) (0-5) /lpf U Epithel Cells (Auto) (0-5) /lpf Urine Bacteria (Auto) (Negative) SARS-CoV-2, RNA, NAAT NEGATIVE (NEGATIVE) 01/01/23 Range/Units 14:20 WBC (4.8-10.8) K/ul RBC (4.20-5.40) M/uL Hgb (12.0-16.0) g/dl Hct (37.0-47.0) % MCV (80.0-100.0) fL MCH (25.0-34.0) pg MCHC (32.0-36.0) g/dL RDW Std Deviation (36.4-46.3) fL RDW Coeff of Vijay (11.5-14.5) % Plt Count (130-400) K/uL MPV (9.4-12.4) fL Immature Gran % (Auto) % Neut % (Auto) % Lymph % (Auto) % Simpson % (Auto) % Eos % (Auto) % Baso % (Auto) % Neut # (Auto) (1.40-6.50) K/uL Lymph # (Auto) (1.2-3.4) K/uL Simpson # (Auto) (0.11-0.59) K/uL Eos # (Auto) (0-0.50) K/uL Baso # (Auto) (0-0.2) K/uL Immature Gran # (Auto) (0.01-0.20) K/uL Macrocytosis PT (9.0-12.0) Seconds INR (0.9-1.1) APTT (21.0-31.0) Seconds PTT Ratio VBG pH (7.36-7.41) VBG pCO2 (38-50) mmHg VBG pO2 mmHg VBG HCO3 mmol/L VBG O2 Saturation % VBG Base Excess mEq/L Sodium (136-145) mmol/L Potassium (3.5-5.1) mmol/L Chloride (98-107) mmol/L Carbon Dioxide (21-32) mmol/L Anion Gap (3-11) BUN (6-23) mg/dl Creatinine (0.6-1.2) mg/dl Est Cr Clr Drug Dosing ml/min Est GFR ( Amer) ml/min Est GFR (Non-Af Amer) ml/min BUN/Creatinine Ratio (10-20) Glucose (70-99(Fasting)) mg/dl Calcium (8.6-10.3) mg/dl Magnesium (1.7-2.4) mg/dl Total Bilirubin (0.2-1.0) mg/dl AST (13-39) U/L ALT (7-52) U/L Alkaline Phosphatase (34-104) U/L Total Creatine Kinase (26-192) U/L Troponin I High Sens (0-14) pg/ml Total Protein (6.0-8.3) gm/dl Albumin (3.4-5.0) gm/dl Globulin (2.5-4.0) gm/dl Albumin/Globulin Ratio (0.9-2) TSH (0.300-4.500) uIu/ml Urine Color Yellow Urine Appearance Turbid A (Clear) Urine pH 5.5 (4.5-7.5) Ur Specific Baxter 1.023 (1.000-1.030) Urine Protein 1+ H (Negative) Urine Glucose (UA) Negative (Negative) Urine Ketones Negative (Negative) Urine Blood 3+ H (Negative) Urine Nitrite Positive A (Negative) Urine Bilirubin Negative (Negative) Urine Urobilinogen Negative (Negative) Ur Leukocyte Esterase 3+ H (Negative) Urine WBC (Auto) >30 H (0-5) /hpf Urine RBC (Auto) >30 H (0-4) /hpf U Hyaline Cast (Auto) 1-5 (0-5) /lpf U Epithel Cells (Auto) >30 H (0-5) /lpf Urine Bacteria (Auto) 4+ H (Negative) SARS-CoV-2, RNA, NAAT (NEGATIVE) Administered Medications Discontinued Medications Sodium Chloride (Nss) 500 mls @ 999 mls/hr IV .Q31M [facility] Stop: 01/01/23 12:30 Last Admin: 01/01/23 12:41 Dose: Not Given Documented By: [facility] Imaging Data Attestation: I personally reviewed and interpreted this imaging study as pineda lows: My Impression: CT scan of the head was obtained in the emergency department. My interpretation is no intracranial hemorrhage, no mass effect, final report below. Radiologist's Impression: Cervical Spine CT 01/01/23 11:47 CT SCAN OF THE CERVICAL SPINE CLINICAL HISTORY: Trauma. Fall. COMPARISON STUDY: CT of the cervical spine dated 03/28/2022. TECHNIQUE: CT scan of the cervical spine is performed from the skull base to the upper thoracic spine. Images are reviewed in the axial, sagittal, and coronal planes. IV contrast was not administered for this examination. A dose lowering technique was utilized adhering to the principles of ALARA. CT DOSE: 2525.87 mGy.cm FINDINGS: Skeletal structures: The skeletal structures are osteopenic. There is no evidence of fracture or subluxation involving the cervical spine. Vertebral body height there is maintained. There is minimal anterolisthesis at C3-C4 and C7-T1. Alignment is otherwise preserved. There is straightening of the cervical lordosis. Anterior osteophytes are seen throughout. The odontoid process and lateral masses are intact. The atlantoaxial articulation is preserved noting productive degenerative change. The spinous processes appear intact. There is moderate multilevel cervical spondylosis. Uncovertebral and facet arthropathy contribute to neural foraminal narrowing at several levels. Intervertebral discs: There is moderate to severe disc space narrowing at all cervical levels between C3-C4 and C7-T1. Central canal: Posterior disc osteophyte complexes are seen at all levels between C3-C4 and C6-C7. This likely contributes to multilevel acquired compromise of the central canal. Soft tissues: The prevertebral and paraspinous soft tissues are within normal limits. There is atherosclerotic calcification of the carotid bulbs. Calvarium: The visualized calvarium at the skull base appears intact. Brain parenchyma: Partially visualized brain parenchyma at the skull base is within normal limits. Mastoids: The mastoid air cells are well pneumatized. Lung apices: Clear as visualized. IMPRESSION: 1. There is no evidence of fracture or subluxation involving the cervical spine. 2. Osteopenia and spondylotic change as above. ACT 112: Negative or not required by law. Electronically signed by: Vladislav Curiel M.D. 01/01/2023 1:14 PM Chest X-Ray 01/01/23 11:47 SINGLE VIEW CHEST CLINICAL HISTORY: Fall. Generalized weakness. FINDINGS: An AP, portable, semierect chest radiograph is compared to chest x-ray and chest CT dated 03/28/2022. The examination is degraded by portable technique and apical lordotic positioning. The cardiomediastinal silhouette is top normal for projection noting atherosclerotic calcification of the thoracic aorta. There is chronic elevation of the right hemidiaphragm with bibasilar scarring/atelectasis. No airspace consolidation typical for pneumonia, large pleural effusion, or pneumothorax is seen. The skeletal structures are osteopenic. Advanced arthritic changes seen in the shoulders. There is subluxation of the right humeral head. Cholecystectomy clips are noted in the right upper quadrant. IMPRESSION: 1. No acute cardiopulmonary abnormality is identified. 2. Subluxation of the right humeral head without clear dislocation. ACT 112: Negative or not required by law. Electronically signed by: Vladislav Curiel M.D. 01/01/2023 2:12 PM Femur X-Ray 01/01/23 11:47 XR femur RT 2V routine HISTORY: 82 years-old Female fall acute pain of the pelvis and right hip status post fall COMPARISON: Pelvis radiograph of same day TECHNIQUE: 2 views of the right femur FINDINGS: There is mild osteoarthritis of the right hip with moderate to severe osteoarthritis of the knee. No acute fracture, dislocation or avascular necrosis. Soft tissue calcifications of the right upper thigh/buttock. IMPRESSION: No acute fracture or dislocation identified. ACT 112: Negative or not required by law. The above report was generated using voice recognition software. It may contain grammatical, syntax or spelling errors. Electronically signed by: Demetrio Terrell M.D. 01/01/2023 2:[address] 01/01/23 11:47 CT head/brain wo con CLINICAL HISTORY: 82 years-old Female with fall. Acute head and neck injury status post fall TECHNIQUE: Multiple axial CT images of the head were obtained without contrast. A dose lowering technique was utilized adhering to the principles of ALARA. COMPARISON: CT cervical spine of same day, head CT 03/28/2022 FINDINGS: No acute intracranial hemorrhage, midline shift, intracranial mass, hyd rocephalus, territorial ischemia or abnormal extra-axial collection. Involutional changes with chronic microvascular ischemic disease. Calcifications of the falx cerebri. Cerebral vascular calcifications. The study is motion degraded. The calvarium is intact. Small mastoid effusions. The paranasal sinuses are generally clear. Unremarkable soft tissues and orbits with prior bilateral lens repair. IMPRESSION: No acute intracranial abnormality. ACT 112: Negative or not required by law. The above report was generated using voice recognition software. It may contain grammatical, syntax or spelling errors. Electronically signed by: Demetrio Terrell M.D. 01/01/2023 1:01 PM Knee X-Ray 01/01/23 11:47 XR knee RT 1 or 2V routine HISTORY: 82 years-old Female fall acute right knee pain status post fall COMPARISON: Right femur radiographs of same day TECHNIQUE: 2 views of the right knee FINDINGS: Chondrocalcinosis. Moderate patellofemoral with mild lateral and severe medial compartment osteoarthritis. No acute fracture or dislocation identified. Small joint effusion. Soft tissue calcifications. IMPRESSION: No acute fracture or dislocation. ACT 112: Negative or not required by law. The above report was generated using voice recognition software. It may contain grammatical, syntax or spelling errors. Electronically signed by: Demetrio Terrell M.D. 01/01/2023 2:[address] 01/01/23 11:47 CT lumbar spine wo con HISTORY: 82 years-old Female fall acute low back pain status post fall COMPARISON: CT abdomen and pelvis 03/28/2022 TECHNIQUE: Multiple axial CT images of the lumbar spine were obtained without the use of IV contrast. A dose lowering technique was used consistent with the principals of ALARA. FINDINGS: Right hemidiaphragmatic elevation/diaphragmatic hernia again noted. Partially imaged abnormal appearance of the right kidney with adjacent cortical and hydronephrosis. Findings are better seen on the prior CT exam. Atherosclerosis of the aorta. Chronic T12 burst fracture with unchanged retropulsion. Chronic L3 compression fracture. Lumbar levoscoliosis. No acute paravertebral edema identified. There is no definite acute fracture, subluxation, endplate erosion or suspicious bone lesions identified. Multilevel and vertebral disc space narrowing, severe at L3- L4 with severe multilevel facet arthrosis and moderate to advanced spondylitic spurring. Limited evaluation of the central canal and neural foramina by CT technique. Severe central canal stenosis at L2-L3 with at least moderate bilateral neural foraminal narrowing secondary to ligamentum flavum thickening with facet arthrosis and posterior disc osteophyte complex. IMPRESSION: 1. No acute fracture or subluxation identified. 2. Chronic T12 burst fracture with chronic L3 compression deformity. 3. Lumbar levoscoliosis. 4. Additional findings as above. ACT 112: Negative or not required by law. The above report was generated using voice recognition software. It may contain grammatical, syntax or spelling errors. Electronically signed by: Demetrio Terrell M.D. 01/01/2023 1:32 PM Pelvis X-Ray 01/01/23 11:47 XR pelvis 1-2V routine CLINICAL HISTORY: fall TECHNIQUE: A single frontal view of the pelvis was obtained. Comparison: None available at the time of this dictation. FINDINGS: There is no evidence of an acute fracture. Degenerative changes are seen in the hip joints and lumbar spine. No soft tissue abnormality is seen. IMPRESSION: Degenerative changes without evidence of acute abnormality. ACT 112: Negative or not required by law. Electronically signed by: Ricky Rosenbaum M.D. 01/01/2023 2:14 PM Shoulder X-Ray 01/01/23 11:49 RIGHT SHOULDER 3 VIEWS CLINICAL HISTORY: Fall. FINDINGS: 3 views of the right shoulder obtained. Correlation is made with chest x-ray dated 03/28/2022. The skeletal structures are osteopenic. There is no radiographic evidence of right humeral fracture. There is inferior subluxation of the humeral head as compared to prior examinations. An impacted fracture of the glenoid is not excluded. No briseida dislocation is seen. Advanced osteoarthritic change is seen at the glenohumeral articulation with near complete loss of the joint space, bony sclerosis, and overgrowth. Mild degener ative change is noted at the acromioclavicular joint. The overlying soft tissues are normal as imaged. The visualized right lung parenchyma appears clear. IMPRESSION: 1. There is inferior subluxation of the humeral head as compared to previous, and an impacted fracture of the glenoid is not excluded. CT scan could be considered for further assessment. 2. No humeral fracture is clearly identified. There is no briseida dislocation. 3. Osteopenia and advanced arthritic change at the right shoulder joint as above. Electronically signed by: Vladislav Curiel M.D. 01/01/2023 2:10 PM Femur X-Ray 01/01/23 13:29 LEFT FEMUR 3 VIEWS CLINICAL HISTORY: Fall. FINDINGS: AP, frog-leg, and lateral views of the left femur are obtained. Timoteo elation is made with pelvic x-ray dated 03/28/2022. The skeletal structures are osteopenic. There is no radiographic evidence of left femoral fracture. The visualized left hemipelvis appears intact. The left hip and knee joints are grossly maintained noting degenerative change. The soft tissues of the left thigh are normal as imaged. Calcified granulomas are in the left upper thigh. IMPRESSION: There is no radiographic evidence of left femoral fracture. Electronically signed by: Vladislav Curiel M.D. 01/01/2023 2:15 PM Discharge Plan Visit Data Chief Complaint: Leg Injury/Pain ED Provider: Vimal Joy Discharge Problem: Left leg weakness, Falls frequently, Contusion of knee, right, Contusion of hip, right, Fracture of right shoulder, Urinary tract infection Patient Disposition: Being Evaluated by Hospitalist Forms Stand Alone Forms: My [facility] Prescriptions Prescriptions: No Action duloxetine 30 mg capsule,delayed release(DR/EC) 30 mg PO QAM Rx Instructions: TOTAL DOSE 90 MG--TAKES WITH 60 MG CAP. pantoprazole 40 mg tablet,delayed release (DR/EC) 40 mg PO DAILY levothyroxine 50 mcg tablet 50 mcg PO DAILYBB carvedilol 12.5 mg tablet 12.5 mg PO BID alendronate 70 mg tablet 70 mg PO WK Rx Instructions: TAKE THIS MEDICATION EVERY SATURDAY amitriptyline 25 mg tablet 25 mg PO HS montelukast 10 mg tablet 10 mg PO HS albuterol sulfate [Ventolin HFA] 90 mcg/actuation Hfa Aerosol Inhaler 2 puff INHALATION Q4 PRN (Reason: Shortness Of Breath Or Wheezing) atorvastatin 20 mg tablet 20 mg PO DAILY sumatriptan succinate 100 mg tablet 100 mg PO UD PRN (Reason: Migraine Headache) albuterol sulfate 2.5 mg /3 mL (0.083 %) Solution For Nebulization 2.5 mg INHALATION Q4H PRN (Reason: Wheezing) cholecalciferol (vitamin D3) 25 mcg (1,000 unit) Capsule 25 mcg PO DAILY lisinopril 5 mg tablet 5 mg PO DAILY gabapentin 100 mg capsule 200 mg PO TID acetaminophen [Tylenol] 325 mg Tablet 650 mg PO Q6H PRN (Reason: PAIN/FEVER) furosemide 20 mg tablet 20 mg PO QAM fluticasone propion-salmeterol [Advair Diskus] 100-50 mcg/dose Blister With Device 1 inh INHALATION BID duloxetine 60 mg capsule,delayed release(DR/EC) 60 mg PO QAM Rx Instructions: TOTAL DOSE 90 MG--TAKES WITH 30 MG CAP. Vitron-C 65 mg iron- 125 mg Tablet,Delayed Release (Dr/Ec) 1 tab PO DAILY nifedipine [Procardia XL] 30 mg Tablet Extended Release 24 Hr 30 mg PO HS Qty: 30 0RF ascorbic acid (vitamin C) [Vitamin C] 500 mg Tablet 250 mg PO DAILY@1100 Qty: 20 0RF apixaban 2.5 mg tablet 2.5 mg PO BID Qty: 60 0RF Referrals Referrals: Giorgio Salas DO [Primary Care Provider] -
[2023-01-01] MEDS ORDERED: SODIUM CHLORIDE 0.9% 500 ML IV SCH (12:00)
--- NOTE | 2023-01-01 13:03 | CT Scan Report ---
CT head/brain wo con CLINICAL HISTORY: 82 years-old Female with fall. Acute head and neck injury status post fall TECHNIQUE: Multiple axial CT images of the head were obtained without contrast. A dose lowering tech nique was utilized adhering to the principles of ALARA. COMPARISON: CT cervical spine of same day, head CT 03/28/2022 FINDINGS: No acute intracranial hemorrhage, midline shift, intracranial mass, hydrocephalus, territorial ischem ia or abnormal extra-axial collection. Involutional changes with chronic microvascular ischemic disea se. Calcifications of the falx cerebri. Cerebral vascular calcifications. The study is motion degrade d. The calvarium is intact. Small mastoid effusions. The paranasal sinuses are generally clear. Unremar kable soft tissues and orbits with prior bilateral lens repair. IMPRESSION: No acute intracranial abnormality. ACT 112: Negative or not required by law. The above report was generated using voice recognition software. It may contain grammatical, syntax o r spelling errors. Electronically signed by: Demetrio Terrell M.D. 01/01/2023 1:01 PM
[2023-01-01 13:09] LABS: Basophils # (auto) 0.05 K/uL (0-0.2); Basophils % (auto) 0.8 %; Eosinophils # (auto) 0.48 K/uL (0-0.50); Eosinophils % (auto) 7.6 %; Hematocrit (blood only) 35.1 % (37.0-47.0); Hemoglobin 11.4 g/dl (12.0-16.0); Immature Granulocytes # (auto) 0.01 K/uL (0.01-0.20); Immature Granulocytes % (auto) 0.2 %; Lymphocytes # (auto) 1.17 K/uL (1.2-3.4); Lymphocytes % (auto) 18.5 %; Mean Corpuscular Hemoglobin 37.4 pg (25.0-34.0); Mean Corpuscular Hgb Conc 32.5 g/dL (32.0-36.0); Mean Corpuscular Volume 115.1 fL (80.0-100.0); Mean Platelet Volume 9.7 fL (9.4-12.4); Monocytes # (auto) 0.33 K/uL (0.11-0.59); Monocytes % (auto) 5.2 %; Neutrophils # (auto) 4.28 K/uL (1.40-6.50); Neutrophils % (auto) 67.7 %; Platelet Count 194 K/uL (130-400); RDW Coefficient of Variation 12.5 % (11.5-14.5); RDW Standard Deviation 53.6 fL (36.4-46.3); Red Blood Count 3.05 M/uL (4.20-5.40); White Blood Count 6.32 K/ul (4.8-10.8)
--- NOTE | 2023-01-01 13:16 | CT Scan Report ---
CT SCAN OF THE CERVICAL SPINE CLINICAL HISTORY: Trauma. Fall. COMPARISON STUDY: CT of the cervical spine dated 03/28/2022. TECHNIQUE: CT scan of the cervical spine is performed from the skull base to the upper thoracic spine . Images are reviewed in the axial, sagittal, and coronal planes. IV contrast was not administered fo r this examination. A dose lowering technique was utilized adhering to the principles of ALARA. CT DOSE: 2525.87 mGy.cm FINDINGS: Skeletal structures: The skeletal structures are osteopenic. There is no evidence of fracture or subl uxation involving the cervical spine. Vertebral body height there is maintained. There is minimal ant erolisthesis at C3-C4 and C7-T1. Alignment is otherwise preserved. There is straightening of the cerv ical lordosis. Anterior osteophytes are seen throughout. The odontoid process and lateral masses are intact. The atlantoaxial articulation is preserved noting productive degenerative change. The spinous processes appear intact. There is moderate multilevel cervical spondylosis. Uncovertebral and facet arthropathy contribute to neural foraminal narrowing at several levels. Intervertebral discs: There is moderate to severe disc space narrowing at all cervical levels between C3-C4 and C7-T1. Central canal: Posterior disc osteophyte complexes are seen at all levels between C3-C4 and C6-C7. Th is likely contributes to multilevel acquired compromise of the central canal. Soft tissues: The prevertebral and paraspinous soft tissues are within normal limits. There is athero sclerotic calcification of the carotid bulbs. Calvarium: The visualized calvarium at the skull base appears intact. Brain parenchyma: Partially visualized brain parenchyma at the skull base is within normal limits. Mastoids: The mastoid air cells are well pneumatized. Lung apices: Clear as visualized. IMPRESSION: 1. There is no evidence of fracture or subluxation involving the cervical spine. 2. Osteopenia and spondylotic change as above. ACT 112: Negative or not required by law. Electronically signed by: Vladislav Curiel M.D. 01/01/2023 1:14 PM
[2023-01-01 13:24] LABS: Albumin Globulin Ratio 1.2 (0.9-2); Albumin Level 3.6 gm/dl (3.4-5.0); BUN Creatinine Ratio 17.8 (10-20); Bilirubin,Total 0.6 mg/dl (0.2-1.0); Calcium 9.2 mg/dl (8.6-10.3); Creatinine Clr Calc Pharmacy 38.1 ml/min; Est GFR (African American) 42.9 ml/min; Globulin 2.9 gm/dl (2.5-4.0); Magnesium 1.9 mg/dl (1.7-2.4); Potassium 4.2 mmol/L (3.5-5.1); Total Protein 6.5 gm/dl (6.0-8.3)
[2023-01-01 13:29] LABS: Troponin I High Sensitivity 16.4 pg/ml (0-14)
[2023-01-01 13:33] LABS: Partial Thromboplastin Ratio 0.8; Partial Thromboplastin Time 23.6 Seconds (21.0-31.0); Prothrombin Time 10.9 Seconds (9.0-12.0)
--- NOTE | 2023-01-01 13:34 | CT Scan Report ---
CT lumbar spine wo con HISTORY: 82 years-old Female fall acute low back pain status post fall COMPARISON: CT abdomen and pelvis 03/28/2022 TECHNIQUE: Multiple axial CT images of the lumbar spine were obtained without the use of IV contrast. A dose lowering technique was used consistent with the principals of ALARA. FINDINGS: Right hemidiaphragmatic elevation/diaphragmatic hernia again noted. Partially imaged abnormal appeara nce of the right kidney with adjacent cortical and hydronephrosis. Findings are better seen on the pr ior CT exam. Atherosclerosis of the aorta. Chronic T12 burst fracture with unchanged retropulsion. Chronic L3 compression fracture. Lumbar levo scoliosis. No acute paravertebral edema identified. There is no definite acute fracture, subluxation, endplate erosion or suspicious bone lesions identified. Multilevel and vertebral disc space narrowin g, severe at L3-L4 with severe multilevel facet arthrosis and moderate to advanced spondylitic spurri ng. Limited evaluation of the central canal and neural foramina by CT technique. Severe central canal stenosis at L2-L3 with at least moderate bilateral neural foraminal narrowing secondary to ligamentu m flavum thickening with facet arthrosis and posterior disc osteophyte complex. IMPRESSION: 1. No acute fracture or subluxation identified. 2. Chronic T12 burst fracture with chronic L3 compression deformity. 3. Lumbar levoscoliosis. 4. Additional findings as above. ACT 112: Negative or not required by law. The above report was generated using voice recognition software. It may contain grammatical, syntax o r spelling errors. Electronically signed by: Demetrio Terrell M.D. 01/01/2023 1:32 PM
[2023-01-01 13:40] LABS: Macrocytosis Present
--- NOTE | 2023-01-01 14:11 | XRay Report ---
RIGHT SHOULDER 3 VIEWS CLINICAL HISTORY: Fall. FINDINGS: 3 views of the right shoulder obtained. Correlation is made with chest x-ray dated 2. The skeletal structures are osteopenic. There is no radiographic evidence of right humeral fractur e. There is inferior subluxation of the humeral head as compared to prior examinations. An impacted f racture of the glenoid is not excluded. No briseida dislocation is seen. Advanced osteoarthritic change is seen at the glenohumeral articulation with near complete loss of the joint space, bony sclerosis, and overgrowth. Mild degenerative change is noted at the acromioclavicular joint. The overlying soft tissues are normal as imaged. The visualized right lung parenchyma appears clear. IMPRESSION: 1. There is inferior subluxation of the humeral head as compared to previous, and an impacted fractur e of the glenoid is not excluded. CT scan could be considered for further assessment. 2. No humeral fracture is clearly identified. There is no briseida dislocation. 3. Osteopenia and advanced arthritic change at the right shoulder joint as above. Electronically signed by: Vladislav Curiel M.D. 01/01/2023 2:10 PM
[2023-01-01 14:14] LABS: HCO3 VBG 24 mmol/L; Oxygen Saturation VBG < 60.0 %; PCO2 VBG 52 mmHg (38-50); PO2 VBG 27 mmHg; pH VBG 7.28 (7.36-7.41)
--- NOTE | 2023-01-01 14:14 | XRay Report ---
XR femur RT 2V routine HISTORY: 82 years-old Female fall acute pain of the pelvis and right hip status post fall COMPARISON: Pelvis radiograph of same day TECHNIQUE: 2 views of the right femur FINDINGS: There is mild osteoarthritis of the right hip with moderate to severe osteoarthritis of the knee. No acute fracture, dislocation or avascular necrosis. Soft tissue calcifications of the right upper thig h/buttock. IMPRESSION: No acute fracture or dislocation identified. ACT 112: Negative or not required by law. The above report was generated using voice recognition software. It may contain grammatical, syntax o r spelling errors. Electronically signed by: Demetrio Terrell M.D. 01/01/2023 2:12 PM
--- NOTE | 2023-01-01 14:14 | XRay Report ---
SINGLE VIEW CHEST CLINICAL HISTORY: Fall. Generalized weakness. FINDINGS: An AP, portable, semierect chest radiograph is compared to chest x-ray and chest CT dated . The examination is degraded by portable technique and apical lordotic positioning. The card iomediastinal silhouette is top normal for projection noting atherosclerotic calcification of the tho racic aorta. There is chronic elevation of the right hemidiaphragm with bibasilar scarring/atelectasi s. No airspace consolidation typical for pneumonia, large pleural effusion, or pneumothorax is seen. The skeletal structures are osteopenic. Advanced arthritic changes seen in the shoulders. There is delaney bluxation of the right humeral head. Cholecystectomy clips are noted in the right upper quadrant. IMPRESSION: 1. No acute cardiopulmonary abnormality is identified. 2. Subluxation of the right humeral head without clear dislocation. ACT 112: Negative or not required by law. Electronically signed by: Vladislav Curiel M.D. 01/01/2023 2:12 PM
--- NOTE | 2023-01-01 14:15 | XRay Report ---
XR knee RT 1 or 2V routine HISTORY: 82 years-old Female fall acute right knee pain status post fall COMPARISON: Right femur radiographs of same day TECHNIQUE: 2 views of the right knee FINDINGS: Chondrocalcinosis. Moderate patellofemoral with mild lateral and severe medial compartment osteoarthr itis. No acute fracture or dislocation identified. Small joint effusion. Soft tissue calcifications. IMPRESSION: No acute fracture or dislocation. ACT 112: Negative or not required by law. The above report was generated using voice recognition software. It may contain grammatical, syntax o r spelling errors. Electronically signed by: Demetrio Terrell M.D. 01/01/2023 2:13 PM
--- NOTE | 2023-01-01 14:16 | XRay Report ---
LEFT FEMUR 3 VIEWS CLINICAL HISTORY: Fall. FINDINGS: AP, frog-leg, and lateral views of the left femur are obtained. Correlation is made with [facility] x-ray dated 03/28/2022. The skeletal structures are osteopenic. There is no radiographic evidence of left femoral fracture. The visualized left hemipelvis appears intact. The left hip and knee joint s are grossly maintained noting degenerative change. The soft tissues of the left thigh are normal as imaged. Calcified granulomas are in the left upper thigh. IMPRESSION: There is no radiographic evidence of left femoral fracture. Electronically signed by: Vladislav Curiel M.D. 01/01/2023 2:15 PM
--- NOTE | 2023-01-01 14:16 | XRay Report ---
XR pelvis 1-2V routine CLINICAL HISTORY: fall TECHNIQUE: A single frontal view of the pelvis was obtained. Comparison: None available at the time of this dictation. FINDINGS: There is no evidence of an acute fracture. Degenerative changes are seen in the hip joints and lumbar spine. No soft tissue abnormality is seen. IMPRESSION: Degenerative changes without evidence of acute abnormality. ACT 112: Negative or not required by law. Electronically signed by: Ricky Rosenbaum M.D. 01/01/2023 2:14 PM
[2023-01-01 15:17] LABS: Appearance Urine Turbid (Clear); Bacteria Urine Automated 4+ (Negative); Bilirubin Urine Negative (Negative); Blood Urine 3+ (Negative); Color Urine Yellow; Epithelial Cell Urine Auto >30 /lpf (0-5); Glucose Urine UA Negative (Negative); Ketones Urine Negative (Negative); Leukocyte Esterase Urine 3+ (Negative); Nitrite Urine Positive (Negative); Protein Urine 1+ (Negative); RBC Urine Automated >30 /hpf (0-4); Specific Gravity Urine 1.023 (1.000-1.030); Urobilinogen Urine Negative (Negative); WBC Urine Automated >30 /hpf (0-5); pH Urine 5.5 (4.5-7.5)
[2023-01-01] MEDS ORDERED: ALUMINUM/MAGNESIUM SUSP 30 ML UDC PO PRN (15:56)
[2023-01-01] MEDS ORDERED: POLYETHYLENE (MIRALAX) 17 GM PACK PO PRN (15:56)
[2023-01-01] MEDS ORDERED: MAGNESIUM HYDROXIDE SUSP 30 ML UDC PO PRN (15:56)
[2023-01-01] MEDS ORDERED: ONDANSETRON INJ 2 MG/ML 2 ML VIAL IV PRN (15:56)
--- NOTE | 2023-01-01 16:02 | History & Physical Report ---
Date of Service January 01, 2023 Assessment & Plan (1) Asthma with exacerbation: (2) Left leg weakness: (3) Falls frequently: (4) Atrial flutter: (5) Pulmonary embolism: (6) Hypertension: (7) Acute respiratory acidosis: Plan Asthma exacerbation: Expiratory wheezes; will place on every 4 scheduled nebulizers; every 2 as needed Takes Advair and Albuterol PRN; continue Advair Takes Montelukast; continue Chest x-ray in a.m. Prednisone 50 mg daily; taper upon discharge ACute respiratory acidosis; ph 7.28, CO2 52 UTI: UA in ED positive for UTI; started on Ceftrixone 1G IV daily urine culture pending Left leg weakness: Frequent falls: Suspect related to progressing Osteoarthritis Numerous imaging studies performed: femur x-ray, head CT, knee x-ray, lumbar spine CT, pelvic x-ray, shoulder x-ray. All imaging thus far was negative outside of chronic osteoarthritis. Shoulder x-ray indicated inferior subluxation of humeral head but appears to be chronic. Suspect related to progressive OA; will continue to complete stroke work up with MRI brain CT head and neck Osteoarthritis: lumbar spine CT: chronic T12 burst Will obtain CT R shoulder Takes Alendronate weekly Ordered prednisone 50 mg daily while inpatient; upon discharge order taper. PT/OT evaluation History of PE: Takes Eliquis; continue Patient with recurrent falls 4-5 times over past 12 months may benefit from benefit versus risk of continuation of anticoagulation Hypertension: Takes carvedilol; continue EKG with chronic QTc prolongation QTc 525 Avoid QTC prolonging medications Hyperlipidemia: Takes atorvastatin; continue GERD: Takes Protonix; continue Hypothyroidism: Takes Synthroid; continue Check TSH Disposition: PCP: Dr. Salas Code Status: Full Code VTE Prophylaxis: On Eloquis I spent a total of 86 minutes coordinating, documenting, and providing care for this patient excluding time spent in the performance of separately billed services. All of the aforementioned completed while collaborating with the assigned attending physician for a full treatment plan. Please see their addendum for further details. History of Present Illness Chief Complaint: left leg pain Primary Care Provider: Giorgio Salas DO Ms. Breaux presents to the [facility] today s/p fall when she was getting out of bed. She denied hitting her head and was not having any dizziness leading up to the event. She denies LOC. She wears 2LNC supplemental O2 at night. She uses inhalers PRN. Patient has fallen about 4-5 times over past year. Patient has a PMH that includes: COPD, asthma, history of PE/DVT (on Eloquis), osteoarthritis, hypothyroidism, recurrent falls and weakness. Pt has respiratory acidosis per VBG pH 7.28, CO2 52. Labs rather unremarkable; creatinine 1.35. Uses a walker at home, at baseline. Patient denies chest pain, SOB, dizziness, N/V/D, trauma. Sitting upright in her bed, she is in no apparent distress. She does have some wheezing and urinalysis revealed UTI. Patient has had numerous imaging studies done in the ED including rectal spine, femur x-ray, head CT, knee x-ray, lumbar spine CT, pelvic x-ray, shoulder x-ray. All imaging thus far was negative outside of chronic osteoarthritis. Shoulder x-ray indicated inferior subluxation of humeral head but appears to be chronic. On exam, patient NIH is 0 with intact CN. She has progressive weakness from OA. Patient will be admitted for further evaluation and management. Please see A/P for further evaluation. Allergies Allergy/AdvReac Type Severity Reaction Status Date / Time aspirin Allergy Unknown Unknown Verified 01/01/23 16:23 Sulfa (Sulfonamide Allergy Unknown Unknown Verified 01/01/23 16:23 Antibiotics) Home Medications Medication Instructions Recorded Confirmed Type albuterol sulfate 90 mcg/actuation 2 puff inhalation Q4 PRN Shortness 11/10/18 01/01/23 History aerosol inhaler (Ventolin HFA) Of Breath Or Wheezing alendronate 70 mg tablet 70 mg PO WK 11/10/18 01/01/23 History amitriptyline 25 mg tablet 25 mg PO HS 11/10/18 01/01/23 History carvedilol 12.5 mg tablet 12.5 mg PO BID 11/10/18 01/01/23 History montelukast 10 mg tablet 10 mg PO HS 11/10/18 01/01/23 History duloxetine 30 mg capsule,delayed 30 mg PO QAM 02/28/19 01/01/23 History release pantoprazole 40 mg tablet,delayed 40 mg PO DAILY 07/22/19 01/01/23 History release atorvastatin 20 mg tablet 20 mg PO DAILY 10/11/19 01/01/23 History levothyroxine 50 mcg tablet 50 mcg PO DAILYBB 01/15/20 01/01/23 History sumatriptan succinate 100 mg tablet 100 mg PO UD PRN Migraine Headache 06/27/20 01/01/23 History albuterol sulfate 2.5 mg/3 mL 2.5 mg inhalation Q4H PRN Wheezing 01/06/21 01/01/23 History (0.083 %) solution for nebulization cholecalciferol (vitamin D3) 25 25 mcg PO DAILY 01/06/21 01/01/23 History mcg (1,000 unit) capsule gabapentin 100 mg capsule 200 mg PO TID 07/07/21 01/01/23 History acetaminophen 325 mg tablet 650 mg PO Q6H PRN PAIN/FEVER 03/07/22 01/01/23 History (Tylenol) duloxetine 60 mg capsule,delayed 60 mg PO QAM 03/07/22 01/01/23 History release fluticasone 100 mcg-salmeterol 50 1 inh inhalation BID 03/07/22 01/01/23 History mcg/dose blistr powdr for inhalation (Advair Diskus) furosemide 20 mg tablet 20 mg PO QAM 03/07/22 01/01/23 History iron,carbonyl 65 mg-vitamin C 125 1 tab PO DAILY 03/07/22 01/01/23 History mg tablet,delayed release (Vitron-C) apixaban 2.5 mg tablet 2.5 mg PO BID #60 tabs 03/09/22 01/01/23 Rx ascorbic acid (vitamin C) 500 mg 250 mg PO DAILY@1100 #20 tabs 03/09/22 01/01/23 Rx tablet (Vitamin C) Past Med/Surg History Medical History Acute kidney injury Asthma USES PRN INH 1 X WK Atrial flutter PT COULD NOT CONFIRM Chronic anticoagulation Chronic left hip pain Diffuse myofascial pain syndrome History of DVT (deep vein thrombosis) RLE - 20 YEARS AGO FOLLOWING INJURY History of endometriosis History of ME (myocardial infarction) 2017 - FOLLOWS W/ DR. JACOBSEN History of pulmonary embolism Hypertension Hypothyroidism Migraine On anticoagulant therapy On home oxygen therapy 2 LPM 02 QHS Opioid dependence Osteoarthritis Osteoporosis Poor historian Pulmonary edema Pulmonary embolism (10/10/12) 20 YEARS AGO AFTER INJURY 30 YEARS AGO - POST OP CHOLEYCYSTECTOMY ON WARFARIN Sleep apnea NO DEVICE Surgical History History of appendectomy History of cardiac cath 2018 - [place] - NO STENTS History of cataract surgery History of section History of cholecystectomy History of colonoscopy History of esophagogastroduodenoscopy (EGD) History of left knee surgery History of tonsillectomy History of total abdominal hysterectomy and bilateral salpingo-oophorectomy History of tubal ligation Family History Father Esophageal cancer Social History Smoking Status: Never smoker Second Hand Exposure: No; Do You Dip or Chew Tobacco: No; Hx Alcohol Use: No Hx Substance Use: No Preferred Language: Japanese Communication Ability: Effective Visual Impairment: No Limitations Hearing Ability: Normal Fit Model Required: No Beliefs That Will Affect Care: None marital status: Current Living Situation: Spouse Current Living Situation Comment: [place] current occupational status: retired Feels Safe at Home: Yes Assistive Devices: Walker and Wheelchair Review of Systems Review of Systems: Neuro: (-) Falls, trauma, slurred speech HEENT: (-) GARCIA, dizziness, dysphagia, visual or auditory changes CV: (-) CP, palpitations, swelling Resp: (-) SOB GI: (-) appetite changes, N/V/D, bowel changes : (-) urinary changes Skin: (-) rashes Psych: (-) anxiety, depression Physical Exam Physical Exam: See Dr. Fraire's addendum for physical examination Results & Data Results & Data Vital Signs (Past 12 Hours) Vital Signs Temp Pulse Resp BP Pulse Ox O2 Del Method 01/01/23 15:34 92 H 24 156/80 H 93 01/01/23 12:21 18 94 Room Air 01/01/23 11:47 37 C 98 H 18 155/100 H 92 Room Air 01/01/23 11:58 91 H Laboratory Results Short CBC 01/01/23 Range/Units 12:20 WBC 6.32 (4.8-10.8) K/ul Hgb 11.4 L (12.0-16.0) g/dl Hct 35.1 L (37.0-47.0) % Plt Count 194 (130-400) K/uL BMP 01/01/23 12:20 Sodium 141 Potassium 4.2 Chloride 109 H Carbon Dioxide 26 BUN 24 H Creatinine 1.35 H Glucose 82 Calcium 9.2 Cardiac Enzymes 01/01/23 Range/Units 12:20 Total Creatine Kinase 34 (26-192) U/L Liver Function 01/01/23 Range/Units 12:20 Total Bilirubin 0.6 (0.2-1.0) mg/dl AST 18 (13-39) U/L ALT 9 (7-52) U/L Alkaline Phosphatase 62 (34-104) U/L Albumin 3.6 (3.4-5.0) gm/dl Diagnostic Findings Cervical Spine CT 01/01/23 11:47 CT SCAN OF THE CERVICAL SPINE CLINICAL HISTORY: Trauma. Fall. COMPARISON STUDY: CT of the cervical spine dated 03/28/2022. TECHNIQUE: CT scan of the cervical spine is performed from the skull base to the upper thoracic spine. Images are reviewed in the axial, sagittal, and coronal planes. IV contrast was not administered for this examination. A dose lowering technique was utilized adhering to the principles of ALARA. CT DOSE: 2525.87 mGy.cm FINDINGS: Skeletal structures: The skeletal structures are osteopenic. There is no evidence of fracture or subluxation involving the cervical spine. Vertebral body height there is maintained. There is minimal anterolisthesis at C3-C4 and C7-T1. Alignment is otherwise preserved. There is straightening of the cervical lordosis. Anterior osteophytes are seen throughout. The odontoid process and lateral masses are intact. The atlantoaxial articulation is preserved noting productive degenerative change. The spinous processes appear intact. There is moderate multilevel cervical spondylosis. Uncovertebral and facet arthropathy contribute to neural foraminal narrowing at several levels. Intervertebral discs: There is moderate to severe disc space narrowing at all cervical levels between C3-C4 and C7-T1. Central canal: Posterior disc osteophyte complexes are seen at all levels between C3-C4 and C6-C7. This likely contributes to multilevel acquired compromise of the central canal. Soft tissues: The prevertebral and paraspinous soft tissues are within normal limits. There is atherosclerotic calcification of the carotid bulbs. Calvarium: The visualized calvarium at the skull base appears intact. Brain parenchyma: Partially visualized brain parenchyma at the skull base is within normal limits. Mastoids: The mastoid air cells are well pneumatized. Lung apices: Clear as visualized. IMPRESSION: 1. There is no evidence of fracture or subluxation involving the cervical spine. 2. Osteopenia and spondylotic change as above. ACT 112: Negative or not required by law. Electronically signed by: Vladislav Curiel M.D. 01/01/2023 1:14 PM Chest X-Ray 01/01/23 11:47 SINGLE VIEW CHEST CLINICAL HISTORY: Fall. Generalized weakness. FINDINGS: An AP, portable, semierect chest radiograph is compared to chest x-ray and chest CT dated 03/28/2022. The examination is degraded by portable technique and apical lordotic positioning. The cardiomediastinal silhouette is top normal for projection noting atherosclerotic calcification of the thoracic aorta. There is chronic elevation of the right hemidiaphragm with bibasilar scarring/atelectasis. No airspace consolidation typical for pneumonia, large pleural effusion, or pneumothorax is seen. The skeletal structures are osteopenic. Advanced arthritic changes seen in the shoulders. There is subluxation of the right humeral head. Cholecystectomy clips are noted in the right upper quadrant. IMPRESSION: 1. No acute cardiopulmonary abnormality is identified. 2. Subluxation of the right humeral head without clear dislocation. ACT 112: Negative or not required by law. Electronically signed by: Vladislav Curiel M.D. 01/01/2023 2:12 PM Femur X-Ray 01/01/23 11:47 XR femur RT 2V routine HISTORY: 82 years-old Female fall acute pain of the pelvis and right hip status post fall COMPARISON: Pelvis radiograph of same day TECHNIQUE: 2 views of the right femur FINDINGS: There is mild osteoarthritis of the right hip with moderate to severe osteoarthritis of the knee. No acute fracture, dislocation or avascular necrosis. Soft tissue calcifications of the right upper thigh/buttock. IMPRESSION: No acute fracture or dislocation identified. ACT 112: Negative or not required by law. The above report was generated using voice recognition software. It may contain grammatical, syntax or spelling errors. Electronically signed by: Demetrio Terrell M.D. 01/01/2023 2:[address] 01/01/23 11:47 CT head/brain wo con CLINICAL HISTORY: 82 years-old Female with fall. Acute head and neck injury status post fall TECHNIQUE: Multiple axial CT images of the head were obtained without contrast. A dose lowering technique was utilized adhering to the principles of ALARA. COMPARISON: CT cervical spine of same day, head CT 03/28/2022 FINDINGS: No acute intracranial hemorrhage, midline shift, intracranial mass, hydrocephalus, territorial ischemia or abnormal extra-axial collection. Involutional changes with chronic microvascular ischemic disease. Calcifications of the falx cerebri. Cerebral vascular calcifications. The study is motion degraded. The calvarium is intact. Small mastoid effusions. The paranasal sinuses are generally clear. Unremarkable soft tissues and orbits with prior bilateral lens repair. IMPRESSION: No acute intracranial abnormality. ACT 112: Negative or not required by law. The above report was generated using voice recognition software. It may contain grammatical, syntax or spelling errors. Electronically signed by: Demetrio Terrell M.D. 01/01/2023 1:01 PM Knee X-Ray 01/01/23 11:47 XR knee RT 1 or 2V routine HISTORY: 82 years-old Female fall acute right knee pain status post fall COMPARISON: Right femur radiographs of same day TECHNIQUE: 2 views of the right knee FINDINGS: Chondrocalcinosis. Moderate patellofemoral with mild lateral and severe medial compartment osteoarthritis. No acute fracture or dislocation identified. Small joint effusion. Soft tissue calcifications. IMPRESSION: No acute fracture or dislocation. ACT 112: Negative or not required by law. The above report was generated using voice recognition software. It may contain grammatical, syntax or spelling errors. Electronically signed by: Demetrio Terrell M.D. 01/01/2023 2:[address] 01/01/23 11:47 CT lumbar spine wo con HISTORY: 82 years-old Female fall acute low back pain status post fall COMPARISON: CT abdomen and pelvis 03/28/2022 TECHNIQUE: Multiple axial CT images of the lumbar spine were obtained without the use of IV contrast. A dose lowering technique was used consistent with the principals of ALARA. FINDINGS: Right hemidiaphragmatic elevation/diaphragmatic hernia again noted. Partially imaged abnormal appearance of the right kidney with adjacent cortical and hydronephrosis. Findings are better seen on the prior CT exam. Atherosclerosis of the aorta. Chronic T12 burst fracture with unchanged retropulsion. Chronic L3 compression fracture. Lumbar levoscoliosis. No acute paravertebral edema identified. There is no definite acute fracture, subluxation, endplate erosion or suspicious bone lesions identified. Multilevel and vertebral disc space narrowing, severe at L3- L4 with severe multilevel facet arthrosis and moderate to advanced spondylitic spurring. Limited evaluation of the central canal and neural foramina by CT valeria hnique. Severe central canal stenosis at L2-L3 with at least moderate bilateral neural foraminal narrowing secondary to ligamentum flavum thickening with facet arthrosis and posterior disc osteophyte complex. IMPRESSION: 1. No acute fracture or subluxation identified. 2. Chronic T12 burst fracture with chronic L3 compression deformity. 3. Lumbar levoscoliosis. 4. Additional findings as above. ACT 112: Negative or not required by law. The above report was generated using voice recognition software. It may contain grammatical, syntax or spelling errors. Electronically signed by: Demetrio Terrell M.D. 01/01/2023 1:32 PM Pelvis X-Ray 01/01/23 11:47 XR pelvis 1-2V routine CLINICAL HISTORY: fall TECHNIQUE: A single frontal view of the pelvis was obtained. Comparison: None available at the time of this dictation. FINDINGS: There is no evidence of an acute fracture. Degenerative changes are seen in the hip joints and lumbar spine. No soft tissue abnormality is seen. IMPRESSION: Degenerative changes without evidence of acute abnormality. ACT 112: Negative or not required by law. Electronically signed by: Ricky Rosenbaum M.D. 01/01/2023 2:14 PM Shoulder X-Ray 01/01/23 11:49 RIGHT SHOULDER 3 VIEWS CLINICAL HISTORY: Fall. FINDINGS: 3 views of the right shoulder obtained. Correlation is made with chest x-ray dated 03/28/2022. The skeletal structures are osteopenic. There is no radiographic evidence of right humeral fracture. There is inferior subluxation of the humeral head as compared to prior examinations. An impacted fracture of the glenoid is not excluded. No briseida dislocation is seen. Advanced osteoarthritic change is seen at the glenohumeral articulation with near complete loss of the joint space, bony sclerosis, and overgrowth. Mild degenerative change is noted at the acromioclavicular joint. The overlying soft tissues are normal as imaged. The visualized right lung parenchyma appears clear. IMPRESSION: 1. There is inferior subluxation of the humeral head as compared to previous, and an impacted fracture of the glenoid is not excluded. CT scan could be considered for further assessment. 2. No humeral fracture is clearly identified. There is no briseida dislocation. 3. Osteopenia and advanced arthritic change at the right shoulder joint as above. Electronically signed by: Vladislav Curiel M.D. 01/01/2023 2:10 PM Femur X-Ray 01/01/23 13:29 LEFT FEMUR 3 VIEWS CLINICAL HISTORY: Fall. FINDINGS: AP, frog-leg, and lateral views of the left femur are obtained. Correlation is made with pelvic x-ray dated 03/28/2022. The skeletal structures are osteopenic. There is no radiographic evidence of left femoral fracture. The visualized left hemipelvis appears intact. The left hip and knee joints are grossly maintained noting degenerative change. The soft tissues of the left thigh are normal as imaged. Calcified granulomas are in the left upper thigh. IMPRESSION: There is no radiographic evidence of left femoral fracture. Electronically signed by: Vladislav Curiel M.D. 01/01/2023 2:15 PM Code Status & VTE Plan Code Status Full Code in the event of cardiac or respiratory arrest VTE Prophylaxis Plan VTE Prophylaxis will be ordered: Yes Supervising Physician Co-Signing Physician Notes Pt is a 82 y/o F with hx of HFpEF, Chronic respiratory failure on 2L of oxygen at night, Asthma, Hypothyroidism, HLD, DJD, CAD, hx of DVT/PE on eliquis, Depression admitted for acute L leg weakness with Fall and UTI PE: Obese pt, well developed Lungs: decreased BS diffusely with exp wheezing Cardiac: Normal S1/S2, no murmur Abd: Obese abd, NT, soft Neuro: CN II-XII intact, PERRLA, EOMI, decreased ROM b/l shoulders (due to DJD), overall good strength at the b/l hips and ankles, decreased strength at the L knee flexion and extension Psych: AAox3, normal affect A/P: L leg weakness with mechanical fall: -I do suspect the leg weakness is 2/2 DJD of the knee but due to age and other comorbidities will get MRI brain and CTA head and neck -PT/OT -continue statin and eliquis UTI: -started pt on ceftriaxone Asthma exacerbation: -will do albuterol q4hrs and Prednisone burst -will continue nocturnal 2L oxygen Abnormal R shoulder Xray:- - per pt no worsening pain or recent trauma -XR: inferior subluxation of the humeral head as compared to previous, and an impacted fracture of the glenoid is not excluded. CT scan could be considered for further assessment. -will obtain CT Agree with A/P by JUDAH Luna (1) Asthma with exacerbation Asthma persistence: unspecified Asthma severity: unspecified severity Qualified Code(s): J45.901 - Unspecified asthma with (acute) exacerbation (6) Hypertension Hypertension type: unspecified Qualified Code(s): I10 - Essential (primary) hypertension
[2023-01-01] MEDS ORDERED: cefTRIAXone SODIUM 2,000 MG/70 ML BAG IV STA (16:09)
[2023-01-01] MEDS ORDERED: ALBUTEROL 0.083% NEBU SOLN 3 ML VIAL NEB SCH (16:30)
--- NOTE | 2023-01-01 19:12 | Magnetic Resonance Report ---
MRI OF THE BRAIN WITHOUT IV CONTRAST CLINICAL HISTORY: Strokelike symptoms. COMPARISON STUDY: CT of the brain dated 01/01/2023. TECHNIQUE: MRI of the brain was performed utilizing various T1 and T2-weighted sequences in the axial , sagittal, and coronal planes. IV contrast was not administered for this examination. FINDINGS: Brain parenchyma: There is age-related involutional change noting moderate to advanced confluent subc ortical and periventricular microangiopathic disease. There is an 8 mm focus of restricted diffusion identified in the right parietal white matter consistent with acute to subacute lacunar infarct. No a dditional foci of restricted diffusion are identified. There is no hemorrhage or mass effect. No extr a-axial fluid collection is seen. The cerebellar tonsils are normal in configuration. Ventricles, sulci, and cisterns: Prominent secondary to involutional change. Pituitary and sella: Partially the sella is incidentally noted. Intracranial vasculature: Normal flow voids are maintained at the skull base. Orbits: The bony orbits are grossly intact. Orbital contents are normal in appearance no change bilat eral ocular lens implants. Sinuses and mastoids: There are trace mastoid effusions. The paranasal sinuses are clear. Calvarium: Unremarkable. Cervical cord: Partially visualized cervical spinal cord is normal in morphology and signal intensity . IMPRESSION: 1. 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 2. No additional foci of acute ischemia are identified. 3. There is no hemorrhage or mass effect. ACT 112: Negative or not required by law. Electronically signed by: Vladislav Curiel M.D. 01/01/2023 7:11 PM
--- NOTE | 2023-01-01 19:46 | Communication Note ---
Date of Service: January 01, 2023 MRI Brain: Acute to subacute lacunar infarct in the right parietal lobe white matter. -VSS -will change the atorvastatin to 80mg daily -pt is already on eliquis 2.5mg BID -CTA head and neck pending -neurology consult -neuro check Q4 -Echo ordered
--- NOTE | 2023-01-01 20:26 | Electrocardiogram Report ---
Test Reason : Blood Pressure : / mmHG Vent. Rate : 088 BPM Atrial Rate : 088 BPM P-R Int : 202 ms QRS Dur : 156 ms QT Int : 434 ms P-R-T Axes : 000 022 102 degrees QTc Int : 525 ms Normal sinus rhythm Left bundle branch block Abnormal ECG When compared with ECG of 31-MAR-2022 06:20, No significant change was found Confirmed by Aiden Burnett ([id number]) on 01/01/2023 8:25:46 PM Referred By: Confirmed By:Dawood Burnett
[2023-01-01] MEDS: APIXABAN 2.5 MG TAB PO SCH (20:53)
[2023-01-01] MEDS: predniSONE 50 MG TAB PO SCH (20:53)
[2023-01-01] MEDS: carvediloL 12.5 MG TAB PO SCH (20:54)
[2023-01-01] MEDS: MONTELUKAST SODIUM 10 MG TABLET PO SCH (20:54)
[2023-01-01] MEDS: GABAPENTIN 100 MG CAP PO SCH (20:54)
[2023-01-01] MEDS ORDERED: AMITRIPTYLINE HCL 25 MG TAB PO SCH (21:00)
[2023-01-01] MEDS: ALBUTEROL 0.083% NEBU SOLN 3 ML VIAL NEB SCH (22:36)
[2023-01-02] MEDS: ALBUTEROL 0.083% NEBU SOLN 3 ML VIAL NEB SCH ×6 (02:47→22:06)
[2023-01-02] MEDS: LEVOTHYROXINE SODIUM 50 MCG TABLET PO SCH (05:54)
[2023-01-02] MEDS: ACETAMINOPHEN 325 MG TAB PO PRN (05:58)
[2023-01-02 07:15] LABS: Hematocrit (blood only) 36.2 % (37.0-47.0); Hemoglobin 11.9 g/dl (12.0-16.0); Mean Corpuscular Hemoglobin 37.1 pg (25.0-34.0); Mean Corpuscular Hgb Conc 32.9 g/dL (32.0-36.0); Mean Corpuscular Volume 112.8 fL (80.0-100.0); Mean Platelet Volume 9.7 fL (9.4-12.4); Platelet Count 182 K/uL (130-400); RDW Coefficient of Variation 12.2 % (11.5-14.5); RDW Standard Deviation 51.1 fL (36.4-46.3); Red Blood Count 3.21 M/uL (4.20-5.40)
[2023-01-02 07:30] LABS: Albumin Globulin Ratio 1.2 (0.9-2); Albumin Level 3.6 gm/dl (3.4-5.0); BUN Creatinine Ratio 20.2 (10-20); Bilirubin,Total 0.5 mg/dl (0.2-1.0); Calcium 9.3 mg/dl (8.6-10.3); Chol HDL Ratio 2.2 (0-5); Creatinine Clr Calc Pharmacy 47.1 ml/min; Est GFR (African American) 52.6 ml/min; Est GFR (Non-African American) 45.4 ml/min; Potassium 4.5 mmol/L (3.5-5.1); Total Protein 6.6 gm/dl (6.0-8.3)
--- NOTE | 2023-01-02 08:30 | Neurology Consultation ---
Date of Consultation January 02, 2023 Assessment & Plan (1) Acute CVA (cerebrovascular accident): (2) Left leg weakness: (3) Falls frequently: (4) T12 burst fracture: (5) Shoulder subluxation, right: (6) Hypertension: (7) Migraine: Plan this patient has suffered an acute right parietal stroke of a very small size likely secondary to small vessel ischemic disease. MRI shows extensive old small vessel ischemic disease plus moderate generalized atrophy consistent with age. On examination she has a left hemiparesis, leg greater than arm. There is no facial droop, speech problems, Sensory issues, or vision disturbance. She has multiple stroke risk factors including hypertension and history of dyslipidemia. Her lipid parameters are well controlled. She has a remote history of atrial fibrillation is in normal sinus rhythm currently. She is on apixaban for history of PE/DVT. The patient had a significant fall yesterday trying to get out of bed injuring her right shoulder ( subluxation) and a burst fracture of T12. She had some left leg pain but this is improved some today. The patient has a history of intermittent migraine headaches. These are stable. Recommendations: 1. consider initiating clopidogrel 75 mg a day to prevent small vessel ischemic disease. The anticoagulation will not address this problem. She is allergic to aspirin. 2. Physical, occupational, and speech therapy consult increasing activity as able. She may be a good rehabilitation hospital candidate to help with gait. She will likely need something to hold onto like a walker to prevent falls. 3. Keep atorvastatin the same at 20 mg a day. She is not a high dose statin candidate and her total cholesterol was only 151 4. Control blood pressure as you are doing. 5. I do not like the combination of amitriptyline and duloxetine as it increases the risk of serotonin syndrome. I would consider discontinuing amitriptyline and continuing the duloxetine. 6. discontinue sumatriptan. This would not be a good medication for her for migraines as it would lead to vaso constriction. If [id number] medicines do not help, I will consider a CGRP inhibitor such as Nurtec 75mg or Ubrelvy 100mg, As needed for migraine 7. Orthopedics to evaluate shoulder and spine , if needed. 8. if neurology is to evaluate her further for falling this would be done as an outpatient I would see her and consider doing EMG and nerve conduction studies. 9. Awaiting echocardiogram and hemoglobin A1c Overall, I spent a total of 75 minutes with this case including review of records, review of MRI films, reports generation, direct evaluation the patient at bedside, and discussion of the case with the patient at bedside and Dr. Mercedes including differential diagnosis and treatment options. History of Present Illness Reason for Consultation: Patient is an 82-year-old, who I was asked to see at the request of Dr. Fraire, for neurologic evaluation regarding stroke and other issues. Requesting Physician: Dr. Fraire Attending Physician: Zuri Mercedes, DO History of Present Illness This patient has a history of hypertension, coronary artery disease, chronic kidney disease type 3, asthma and COPD, Dyslipidemia (on atorvastatin 20 mg da ), hypothyroidism, and intermittent migraine headaches. The patient had an episode of atrial fibrillation in the past as well as an episode of PE. More recently she had another PE and was put on apixaban 2.5 mg twice daily. She has an allergy (unusual reaction ) to aspirin. Patient was admitted in the summer of 2021 for intermittent falling and lightheadedness. She had generalized weakness and a right knee fracture. Patient tells me that she has been on amitriptyline 25 mg each evening for about 2 years ( unknown reason) and more recently, duloxetine 30 mg in morning and 60 mg at night. This was given to her for headaches she believes. Her migraines occur about twice a month randomly without specific triggers. She has no aura and a bioccipital pain of a pounding nature with nausea (occasionally vomiting) photophobia, and phonophobia. They will last couple of hours and Tylenol is of some. She was taking sumatriptan. The patient had a typical /reasonable day December 31. She woke on the morning of January 01 at 8:00 a.m. and noticed that her left leg was weak. She tried to walk and collapsed to the ground, ending up injuring her low back and right shoulder. There was pain in the left leg as well ( From the knee to the hip). she thought that it would go away over the course of the morning, but it did not. She arrived to the emergency room January 01 at 11:47 a.m. With a temperature of 37.0, pulse 98, respiratory rate 18, blood pressure 155/100, and O2 saturation 92%. On neurologic examination the left lower extremity was weak. CBC showed a hemoglobin of 11.9 and hematocrit of 35.1. Chem profile showed a BUN of 24 and creatinine 1.35. TSH was 1.9. urine culture is growing gram-negative bacilli. Chest x-ray showed a right humeral head subluxation and x-rays of the right shoulder showed this is well with no obvious fracture. Pelvis x-ray was unremarkable as were knee and femur x-rays. CT scan of the lumbar spine showed a T12 burst fracture with an L3 compression fracture of an old nature. CT scan of the cervical spine showed degenerative changes but no fractures. CT scan of the head was unremarkable. MRI of the brain showed a small right parietal lacunar type infarct. There was moderate generalized atrophy and extensive old small vessel ischemic disease. I reviewed these films. Triglycerides were 72 and total cholesterol 151. Blood pressure this morning is 125/76 and CBC is similar. BUN and creatinine this morning were 23 and 1.1. The patient feels about the same with left leg weakness. She does not have a lot of pain sitting in bed. She does have a little shortness of breath and a mild occipital headache. Allergies Allergy/AdvReac Type Severity Reaction Status Date / Time aspirin Allergy Unknown Unknown Verified 01/01/23 16:23 Sulfa (Sulfonamide Allergy Unknown Unknown Verified 01/01/23 16:23 Antibiotics) Home Medications Medication Instructions Recorded Confirmed Type albuterol sulfate 90 mcg/actuation 2 puff inhalation Q4 PRN Shortness 11/10/18 01/01/23 History aerosol inhaler (Ventolin HFA) Of Breath Or Wheezing alendronate 70 mg tablet 70 mg PO WK 11/10/18 01/01/23 History amitriptyline 25 mg tablet 25 mg PO HS 11/10/18 01/01/23 History carvedilol 12.5 mg tablet 12.5 mg PO BID 11/10/18 01/01/23 History montelukast 10 mg tablet 10 mg PO HS 11/10/18 01/01/23 History duloxetine 30 mg capsule,delayed 30 mg PO QAM 02/28/19 01/01/23 History release pantoprazole 40 mg tablet,delayed 40 mg PO DAILY 07/22/19 01/01/23 History release atorvastatin 20 mg tablet 20 mg PO DAILY 10/11/19 01/01/23 History levothyroxine 50 mcg tablet 50 mcg PO DAILYBB 01/15/20 01/01/23 History sumatriptan succinate 100 mg tablet 100 mg PO UD PRN Migraine Headache 06/27/20 01/01/23 History albuterol sulfate 2.5 mg/3 mL 2.5 mg inhalation Q4H PRN Wheezing 01/06/21 01/01/23 History (0.083 %) solution for nebulization cholecalciferol (vitamin D3) 25 25 mcg PO DAILY 01/06/21 01/01/23 History mcg (1,000 unit) capsule gabapentin 100 mg capsule 200 mg PO TID 07/07/21 01/01/23 History acetaminophen 325 mg tablet 650 mg PO Q6H PRN PAIN/FEVER 03/07/22 01/01/23 History (Tylenol) duloxetine 60 mg capsule,delayed 60 mg PO QAM 03/07/22 01/01/23 History release fluticasone 100 mcg-salmeterol 50 1 inh inhalation BID 03/07/22 01/01/23 History mcg/dose blistr powdr for inhalation (Advair Diskus) furosemide 20 mg tablet 20 mg PO QAM 03/07/22 01/01/23 History iron,carbonyl 65 mg-vitamin C 125 1 tab PO DAILY 03/07/22 01/01/23 History mg tablet,delayed release (Vitron-C) apixaban 2.5 mg tablet 2.5 mg PO BID #60 tabs 03/09/22 01/01/23 Rx ascorbic acid (vitamin C) 500 mg 250 mg PO DAILY@1100 #20 tabs 03/09/22 01/01/23 Rx tablet (Vitamin C) Patient History Medical History (Updated 01/02/23 @ 08:49 by See Shelby MD) Acute kidney injury Asthma USES PRN INH 1 X WK Atrial flutter PT COULD NOT CONFIRM Chronic anticoagulation Chronic left hip pain Diffuse myofascial pain syndrome History of DVT (deep vein thrombosis) RLE - 20 YEARS AGO FOLLOWING INJURY History of endometriosis History of KS (myocardial infarction) 2017 - FOLLOWS W/ DR. JACOBSEN History of pulmonary embolism Hypertension Hypothyroidism Migraine On anticoagulant therapy On home oxygen therapy 2 LPM 02 QHS Opioid dependence Osteoarthritis Osteoporosis Poor historian Pulmonary edema Pulmonary embolism (10/10/12) 20 YEARS AGO AFTER INJURY 30 YEARS AGO - POST OP CHOLEYCYSTECTOMY ON WARFARIN Sleep apnea NO DEVICE Surgical History History of appendectomy History of cardiac cath 2018 - [place] - NO STENTS History of cataract surgery History of section History of cholecystectomy History of colonoscopy History of esophagogastroduodenoscopy (EGD) History of left knee surgery History of tonsillectomy History of total abdominal hysterectomy and bilateral salpingo-oophorectomy History of tubal ligation Family History (Updated 01/02/23 @ 08:37 by See Shelby MD) Father , age 51 of cancer Esophageal cancer Lung cancer Mother , age 103 No problems noted. 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 [employer] Feels Safe at Home: No Is there a partner from a previous relationship who is making you feel unsafe now?: No Any Concerns about Your Family Situation: No Would You Like to Speak to Someone About Your Situation: No Assistive Devices: Bedside Commode, Walker and Wheelchair Review of Systems Constitutional: no fever, no fatigue and no weakness Eyes: no diplopia, no eye pain and no worsening vision Ear, Nose, Mouth, Throat: no ear pain, no tinnitus, no hearing loss, no dizziness, no snoring, no hoarseness and no dysphagia Respiratory: no cough and no dyspnea Cardiovascular: no chest pain, no palpitations and no lightheadedness Gastrointestinal: no abdominal pain, no nausea and no vomiting Genitourinary: no dysuria, no urinary frequency and no urinary incontinence Musculoskeletal: + back pain and + joint pain; no neck pain, no radicular pain and no myalgia Integumentary: no rash and no lesions Neurologic: + gait abnormality and + localized weakness; no generalized weakness, no tingling, no numbness, no tremor(s), no abnormal movements, no headache(s), no abnormal speech, no confusion and no memory loss Psychiatric: no depression, no irritability, no anxiety, no difficulty concentrating, no confusion and no hallucinations Endocrine: no fatigue and no flushing Hematologic / Lymphatic: no easy bleeding and no easy bruising Allergy / Immunological: no urticaria and no problem reported Exam (Neuro) Physical Exam: The patient is right-handed. The patient is awake, alert, and attentive. Speech is normal without any aphasia or dysarthria (although the patient spoke somewhat softly ). The patient can name objects, repeat phrases, and has normal spontaneous speech. Mentation and thought processes are intact, with orientation to person, place and time, and normal fund of knowledge. Attention and concentration are normal. Mood and affect are normal and appropriate. General appearance and grooming are normal. Short and long-term memory are intact. Pupils are 4 mm bilaterally and reactive to light. Extraocular eye muscles are intact without nystagmus. Visual acuity and visual gilbert seem normal grossly to confrontation. There are no deficits to sensation in the face in all 3 distributions of the fifth cranial nerve bilaterally. Corneal reflexes are positive bilaterally. Facial strength and symmetry was normal bilaterally. Hearing seems normal bilaterally. Palate moves well without asymmetry. There is normal sternocleidomastoid and trapezius (shoulder shrug) strength bilaterally. Tongue is midline with good strength bilaterally. At rest it appeared as if the patient had a slightly droopy upper eyelid on the right compared to the left however it did move well with upgaze. Neck has a full range of motion without discomfort. There are no cervical bruits bilaterally. There are no cranial or ocular bruits. Heart is without murmur. There is a regular rhythm and rate. Cervical and thoracic spine are nontender to palpation. Lower thoracic/ upper lumbar spine was tender to palpation. Gait was not tested and stance sitting up is poor as she would tend to lean to the left when trying to sit up and feet danging With outstretched arms there is no drift. There are no resting, postural, or action tremors. There is no ataxia with finger to nose testing. There is good facility in the hands. No other abnormal involuntary movements are noted. Motor strength Was 4/5 proximally in the left upper extremity and 5/5 in the right upper extremity although with deltoid contraction she had pain in the right shoulder area. Distally in the right upper extremity she was 5/5 diffusely. Distally in the left upper extremity she was 4+/5 diffusely. In the legs, she is essentially 5/5 diffusely in the right lower extremity and 4/5 diffusely in the left lower extremity. The limbs have good tone without rigidity or spasticity. There is no atrophy noted in the muscles. Muscle bulk is normal, there is no tenderness to palpation, no myotonia to percussion, and no fasciculations seen. Sensory examination is intact to touch and pin throughout all 4 limbs diffusely. Reflexes are 2/4 in the biceps, triceps, and brachioradialis tendons bilaterally. The left quadriceps and Achilles tendon reflexes are absent, and the right are 1/4. There is no clonus bilaterally. Toes are downgoing with plantar stimulation On the right and equivocal to upgoing on the left. Peripheral pulses are present and of normal quality distally in all 4 limbs. There is no peripheral edema noted in the limbs. Results & Data Vital Signs (Past 12 Hours) Vital Signs Temp Pulse Pulse Resp BP Pulse Ox O2 Del Method 01/02/23 08:03 36.6 C 111 H 20 128/78 94 Room Air 01/02/23 06:38 108 H 01/02/23 06:56 92 H 18 92 Room Air 01/02/23 04:18 36.6 C 99 H 20 125/76 92 Room Air 01/02/23 02:48 100 H 18 90 Room Air 01/01/23 23:57 36.7 C 82 20 131/65 92 Room Air 01/01/23 23:19 97 H 01/01/23 22:36 100 H 16 91 Room Air 01/01/23 22:27 Room Air PG Care Time/CCT Total # of Minutes Spent Total Time Spent with Patient: Total time spent is greater than 50% in coordination of care (as documented) at patient's floor/unit and/or counseling patient: Coding Level of Care Code 52329 INT INP/OBS CARE 3/75MIN Diagnoses Acute CVA (cerebrovascular accident) I63.9 Left leg weakness R29.898 Falls frequently R29.6 T12 burst fracture S22.081A Shoulder subluxation, right S43.001A Hypertension I10 Hypertension type: unspecified Migraine G43.909 Time Spent (min) 75 (6) Hypertension Hypertension type: unspecified Qualified Code(s): I10 - Essential (primary) hypertension
--- NOTE | 2023-01-02 08:55 | Hospitalist Progress Note ---
Date of Service January 02, 2023 Assessment & Plan (1) Acute CVA (cerebrovascular accident): Plan: Acute right parietal stroke 2/2 small vessel ischemic disease. MRI reveals extensive old small vessel ischemic disease plus moderate generalized atrophy consistent with age. She has mild if any residual deficits today and is doing well overall. Adding plavix per neurology recommendations. Noted she is allergic to aspirin. Atorvastatin to be continued at 20mg daily per neuro recs. Although rehab recommended, patient declines. Will plan to send her home with home health. (2) Asthma with exacerbation: Plan: Presented with expiratory wheezes improved on steroids and nebulized bronchoddilator therapy. Cont this now. Cont Adviar and montelukast per home regimen. (3) Abnormal urinalysis: Plan: Possible UTI, Cont rocephin pending culture results and clinical improvement. (4) Falls frequently: Plan: PT/OT recommends rehab, but pt declines. Will order home health for PT/OT (5) Pulmonary embolism: Plan: chronically on apixaban. Increased dose to 5mg BID dosing as patient doesn't meet criteria for lower dose. (6) Hypertension: Plan: chronic, at goal. Cont coreg per home regimen. DVT proph: apixaban full Code Dispo-to home with HH in am. Zuri Mercedes DO [facility] Hospitalist Admission and Anticipated Discharge Date Admission Date: January 01, 2023 Subjective 82 yo F with acute stroke, left leg weakness has improved She is doing well overall tolerating PO denies pain reports her GARCIA has resolved. verbalized understanding that she had a stroke prefers to go home with her , not to rehab ok with HH Review of Systems Review of Systems: All systems were reviewed and negative except as indicated on subjective above. Physical Exam Physical Exam: CONSTITUTIONAL: obese, vitals as above, generally well-appearing, NAD EYES: normal conjunctivae, no scleral icterus ENT: external ear and nose normal,MMM NECK: trachea midline RESPIRATORY: clear to auscultation bilaterally, no crackles, rales or wheezes, normal respiratory effort CARDIOVASCULAR: regular rate and rhythm, 3/6 LYNN, no gallops or rubs, no JVD, no peripheral edema CHEST: inspection of chest was normal GASTROINTESTINAL: soft, nontender, ND, no guarding MUSCULOSKELETAL: strength 5/5 throughout, head is normocephalic and atraumatic, she was able to sit up on the side of the bed and hang her legs over the edge w [facility] issue. SKIN: warm and dry NEUROLOGIC: CN 2-12 grossly intact, no sensory deficit, normal cognition, normal speech, no tremor PSYCHIATRIC: alert cooperative and oriented to person, place and time. Euthymic mood, makes good eye contact, language grossly intact, recent and remote memory grossly intact. Results & Data Results & Data Vital Signs (Past 12 Hours) Vital Signs Temp Pulse Pulse Resp BP Pulse Ox O2 Del Method 01/02/23 08:03 36.6 C 111 H 20 128/78 94 Room Air 01/02/23 06:38 108 H 01/02/23 06:56 92 H 18 92 Room Air 01/02/23 04:18 36.6 C 99 H 20 125/76 92 Room Air 01/02/23 02:48 100 H 18 90 Room Air 01/01/23 23:57 36.7 C 82 20 131/65 92 Room Air 01/01/23 23:19 97 H 01/01/23 22:36 100 H 16 91 Room Air 01/01/23 22:27 Room Air Laboratory Results Short CBC 01/01/23 01/02/23 Range/Units 12:20 06:47 WBC 6.32 3.10 L (4.8-10.8) K/ul Hgb 11.4 L 11.9 L (12.0-16.0) g/dl Hct 35.1 L 36.2 L (37.0-47.0) % Plt Count 194 182 (130-400) K/uL BMP 01/01/23 01/02/23 12:20 06:47 Sodium 141 139 Potassium 4.2 4.5 Chloride 109 H 109 H Carbon Dioxide 26 21 BUN 24 H 23 Creatinine 1.35 H 1.14 Glucose 82 113 H Calcium 9.2 9.3 Cardiac Enzymes 01/01/23 Range/Units 12:20 Total Creatine Kinase 34 (26-192) U/L Liver Function 01/01/23 01/02/23 Range/Units 12:20 06:47 Total Bilirubin 0.6 0.5 (0.2-1.0) mg/dl AST 18 17 (13-39) U/L ALT 9 8 (7-52) U/L Alkaline Phosphatase 62 66 (34-104) U/L Albumin 3.6 3.6 (3.4-5.0) gm/dl Urine 01/01/23 Range/Units 14:20 Urine Color Yellow Urine Appearance Turbid A (Clear) Urine pH 5.5 (4.5-7.5) Ur Specific [place] 1.023 (1.000-1.030) Urine Protein 1+ H (Negative) Urine Glucose (UA) Negative (Negative) Medications Administered Current Inpatient Medications Acetaminophen (Acetaminophen 325 Mg Tab) 650 mg PO Q4H PRN PRN Reason: Pain or Fever Stop: 01/31/23 15:55 Last Admin: 01/02/23 05:58 Dose: 650 mg Al Hydrox/Mg Hydrox/Simethicone (Aluminum/Magnesium Susp 30 Ml Udc) 15 ml PO Q4H PRN PRN Reason: Dyspepsia Stop: 01/31/23 15:55 Albuterol (Albuterol 0.083% Nebu Soln 3 Ml Vial) 2.5 mg NEB Q4R [facility]ACI; Protocol Stop: 01/31/23 22:59 Last Admin: 01/02/23 06:53 Dose: 2.5 mg Amitriptyline HCl (Amitriptyline Hcl 25 Mg Tab) 25 mg PO HS [facility] Stop: 01/31/23 20:59 Last Admin: 01/01/23 20:53 Dose: 25 mg Apixaban (Apixaban 2.5 Mg Tab) 2.5 mg PO BID [facility] Stop: 01/31/23 20:59 Last Admin: 01/01/23 20:53 Dose: 2.5 mg Ascorbic Acid (Ascorbic Acid 500 Mg Tab) 250 mg PO DAILY@1100 [facility] Stop: 02/01/23 10:59 Atorvastatin Calcium (Atorvastatin 40 Mg Tab) 80 mg PO QAM [facility] Stop: 02/01/23 08:59 Carvedilol (Carvedilol 12.5 Mg Tab) 12.5 mg PO BID [facility] Stop: 01/31/23 20:59 Last Admin: 01/01/23 20:54 Dose: 12.5 mg Duloxetine HCl (Duloxetine Hcl 30 Mg Cap) 30 mg PO QAM [facility] Stop: 02/01/23 08:59 Duloxetine HCl (Duloxetine Hcl 60 Mg Cap) 60 mg PO QAM [facility] Stop: 02/01/23 08:59 Fluticasone/Vilanterol (Fluticasone/Vilanterol 100/25mcg 14 Puffs/Inhaler) 1 puffs INH DAILY [facility] Stop: 02/01/23 08:59 Furosemide (Furosemide 20 Mg Tab) 20 mg PO QAM [facility] Stop: 02/01/23 08:59 Gabapentin (Gabapentin 100 Mg Cap) 200 mg PO TID [facility] Stop: 01/31/23 20:59 Last Admin: 01/01/23 20:54 Dose: 200 mg Ceftriaxone Sodium 2,000 mg/ (Dextrose) 70 mls @ 100 mls/hr IV Q24H [facility]; Protocol Stop: 01/07/23 16:59 Levothyroxine Sodium (Levothyroxine Sodium 50 Mcg Tablet) 50 mcg PO DAILYBB [facility] Stop: 02/01/23 06:29 Last Admin: 01/02/23 05:54 Dose: 50 mcg Magnesium Hydroxide (Magnesium Hydroxide Susp 30 Ml Udc) 30 ml PO Q12H PRN PRN Reason: Constipation Stop: 01/31/23 15:55 Montelukast Sodium (Montelukast Sodium 10 Mg Tablet) 10 mg PO HS [facility] Stop: 01/31/23 20:59 Last Admin: 01/01/23 20:54 Dose: 10 mg Pantoprazole Sodium (Pantoprazole 40 Mg Tab) 40 mg PO DAILY [facility] Stop: 02/01/23 08:59 Polyethylene Glycol (Polyethylene (Miralax) 17 Gm Pack) 17 gm PO DAILY PRN PRN Reason: Constipation Stop: 01/31/23 15:55 Prednisone (Prednisone 50 Mg Tab) 50 mg PO DAILY [facility] Stop: 01/31/23 16:29 Last Admin: 01/01/23 20:53 Dose: 50 mg Vitamin D (Cholecalciferol 1,000 Units 25 Mcg Tab) 1,000 units PO DAILY [facility] Stop: 02/01/23 08:59 (2) Asthma with exacerbation Asthma persistence: unspecified Asthma severity: unspecified severity Qualified Code(s): J45.901 - Unspecified asthma with (acute) exacerbation (6) Hypertension Hypertension type: unspecified Qualified Code(s): I10 - Essential (primary) hypertension
[2023-01-02] MEDS ORDERED: ATORVASTATIN 20 MG TAB PO SCH (09:00)
[2023-01-02] MEDS ORDERED: NON-FORMULARY MEDICATION (Iron,Carbonyl-Vitamin C [Vitron-C] 65 mg iron- 125 mg Tablet,Del PO SCH (09:00)
[2023-01-02] MEDS ORDERED: ATORVASTATIN 40 MG TAB PO SCH (09:00)
[2023-01-02] MEDS: carvediloL 12.5 MG TAB PO SCH ×2 (09:44→20:02)
[2023-01-02] MEDS: DULoxetine HCL 60 MG CAP PO SCH (09:44)
[2023-01-02] MEDS: PANTOprazole 40 MG TAB PO SCH (09:45)
[2023-01-02] MEDS: FUROSEMIDE 20 MG TAB PO SCH (09:45)
[2023-01-02] MEDS: DULoxetine HCL 30 MG CAP PO SCH (09:45)
[2023-01-02] MEDS: APIXABAN 2.5 MG TAB PO SCH (09:46)
[2023-01-02] MEDS: CHOLECALCIFEROL 1,000 UNITS 25 MCG TAB PO SCH (09:46)
[2023-01-02] MEDS: GABAPENTIN 100 MG CAP PO SCH ×3 (09:46→21:00)
[2023-01-02] MEDS: FLUTICASONE/VILANTEROL 100/25MCG 14 PUFFS/INHALER INH SCH (09:49)
[2023-01-02] MEDS: predniSONE 50 MG TAB PO SCH (10:46)
[2023-01-02] MEDS: ASCORBIC ACID 500 MG TAB PO SCH (10:46)
[2023-01-02] MEDS ORDERED: cefTRIAXone SODIUM 2,000 MG in DEXTROSE 5% AD-VAN 50 ML IV SCH (17:00)
[2023-01-02] MEDS ORDERED: CLOPIDOGREL BISULFATE 75 MG TAB PO ONE (19:22)
[2023-01-02] MEDS: APIXABAN 5 MG TABLET PO SCH (20:02)
[2023-01-02] MEDS: MONTELUKAST SODIUM 10 MG TABLET PO SCH (20:02)
[2023-01-03] MEDS: ALBUTEROL 0.083% NEBU SOLN 3 ML VIAL NEB SCH ×3 (02:41→11:21)
[2023-01-03] MEDS: LEVOTHYROXINE SODIUM 50 MCG TABLET PO SCH (05:50)
[2023-01-03] MEDS: ACETAMINOPHEN 325 MG TAB PO PRN (05:52)
[2023-01-03 07:51] LABS: Hematocrit (blood only) 29.3 % (37.0-47.0); Hemoglobin 9.7 g/dl (12.0-16.0); Mean Corpuscular Hemoglobin 36.3 pg (25.0-34.0); Mean Corpuscular Hgb Conc 33.1 g/dL (32.0-36.0); Mean Corpuscular Volume 109.7 fL (80.0-100.0); Mean Platelet Volume 9.5 fL (9.4-12.4); Platelet Count 173 K/uL (130-400); RDW Coefficient of Variation 12.5 % (11.5-14.5); RDW Standard Deviation 50.4 fL (36.4-46.3); Red Blood Count 2.67 M/uL (4.20-5.40); White Blood Count 6.07 K/ul (4.8-10.8)
[2023-01-03 08:06] LABS: BUN Creatinine Ratio 22.7 (10-20); Calcium 8.6 mg/dl (8.6-10.3); Creatinine Clr Calc Pharmacy 40.2 ml/min; Est GFR (African American) 44.1 ml/min; Potassium 3.9 mmol/L (3.5-5.1)
[2023-01-03] MEDS ORDERED: CLOPIDOGREL BISULFATE 75 MG TAB PO SCH (09:00)
[2023-01-03] MEDS ORDERED: ATORVASTATIN 20 MG TAB PO SCH (09:00)
[2023-01-03] MEDS: FLUTICASONE/VILANTEROL 100/25MCG 14 PUFFS/INHALER INH SCH (09:49)
[2023-01-03] MEDS: FUROSEMIDE 20 MG TAB PO SCH (09:50)
[2023-01-03] MEDS: CHOLECALCIFEROL 1,000 UNITS 25 MCG TAB PO SCH (09:50)
[2023-01-03] MEDS: predniSONE 50 MG TAB PO SCH (09:50)
[2023-01-03] MEDS: PANTOprazole 40 MG TAB PO SCH (09:51)
[2023-01-03] MEDS: GABAPENTIN 100 MG CAP PO SCH ×2 (09:52→14:05)
[2023-01-03] MEDS: APIXABAN 5 MG TABLET PO SCH (09:52)
[2023-01-03] MEDS: carvediloL 12.5 MG TAB PO SCH (09:52)
[2023-01-03] MEDS: DULoxetine HCL 30 MG CAP PO SCH (09:52)
[2023-01-03] MEDS: DULoxetine HCL 60 MG CAP PO SCH (09:52)
[2023-01-03 10:19] LABS: Estimated Average Glucose 94 mg/dl; Hemoglobin A1C 4.9 % (4.5-5.6)
[2023-01-03] MEDS: ASCORBIC ACID 500 MG TAB PO SCH (12:05)
--- NOTE | 2023-01-03 13:11 | Orthopedic Consultation ---
Date of Consultation January 03, 2023 Assessment & Plan (1) Primary osteoarthritis, right shoulder: She clearly has severe right shoulder primary glenohumeral joint arthritis with severe glenoid wear, causing subluxation of the glenohumeral joint. No evidence of acute bony injury is appreciated. She has a little bit of increased soreness and difficulty with active motion compared to her baseline, but not dramatically so. I suspect this will improve over the next few weeks to months and return to her baseline. Her chronic shoulder pain, weakness, and limited motion would likely improve with a total shoulder arthroplasty, but she is a poor surgical candidate for a large elective joint replacement surgery. She can follow-up on an outpatient basis if her pain and weakness is significantly limiting to her. Please call [facility] at [phone] to make an appointment with Dr. Harmon if desired in the future. History of Present Illness Reason for Consultation: "Right shoulder subluxation after fall" Requesting Physician: Zuri Mercedes DO Attending Physician: Zuri Mercedes DO History of Present Illness Ms. Breaux is an 82-year-old female who injured her right shoulder during a ground-level fall 2 days ago. She woke up with right leg weakness, and fell due to that leg weakness. She states that she reached up to grab a chair as she was falling and her right arm got wrenched up into an abducted position as she fell. She did not actually hit the shoulder during the fall. She has had mildly increased pain and difficulty with motion since that injury. She does have known chronic arthritis in that right shoulder, and this shoulder has been intermittently painful for many years. She states that she can normally raise her arm just a little bit more than she currently can, but it has never been that great. She has numerous significant medical problems. She was diagnosed with an acute stroke causing the current leg weakness as well as extensive chronic small vessel ischemic disease on brain MRI, asthma exacerbation with wheezing, pulmonary embolism on chronic anticoagulation. Allergies Allergy/AdvReac Type Severity Reaction Status Date / Time aspirin Allergy Unknown Unknown Verified 01/01/23 16:23 Sulfa (Sulfonamide Allergy Unknown Unknown Verified 01/01/23 16:23 Antibiotics) Home Medications Medication Instructions Recorded Confirmed Type albuterol sulfate 90 mcg/actuation 2 puff inhalation Q4 PRN Shortness 11/10/18 01/01/23 History aerosol inhaler (Ventolin HFA) Of Breath Or Wheezing alendronate 70 mg tablet 70 mg PO WK 11/10/18 01/01/23 History carvedilol 12.5 mg tablet 12.5 mg PO BID 11/10/18 01/01/23 History montelukast 10 mg tablet 10 mg PO HS 11/10/18 01/01/23 History duloxetine 30 mg capsule,delayed 30 mg PO QAM 02/28/19 01/01/23 History release pantoprazole 40 mg tablet,delayed 40 mg PO DAILY 07/22/19 01/01/23 History release atorvastatin 20 mg tablet 20 mg PO DAILY 10/11/19 01/01/23 History levothyroxine 50 mcg tablet 50 mcg PO DAILYBB 01/15/20 01/01/23 History albuterol sulfate 2.5 mg/3 mL 2.5 mg inhalation Q4H PRN Wheezing 01/06/21 01/01/23 History (0.083 %) solution for nebulization cholecalciferol (vitamin D3) 25 25 mcg PO DAILY 01/06/21 01/01/23 History mcg (1,000 unit) capsule gabapentin 100 mg capsule 200 mg PO TID 07/07/21 01/01/23 History acetaminophen 325 mg tablet 650 mg PO Q6H PRN PAIN/FEVER 03/07/22 01/01/23 History (Tylenol) duloxetine 60 mg capsule,delayed 60 mg PO QAM 03/07/22 01/01/23 History release fluticasone 100 mcg-salmeterol 50 1 inh inhalation BID 03/07/22 01/01/23 History mcg/dose blistr powdr for inhalation (Advair Diskus) furosemide 20 mg tablet 20 mg PO QAM 03/07/22 01/01/23 History iron,carbonyl 65 mg-vitamin C 125 1 tab PO DAILY 03/07/22 01/01/23 History mg tablet,delayed release (Vitron-C) ascorbic acid (vitamin C) 500 mg 250 mg PO DAILY@1100 #20 tabs 03/09/22 01/01/23 Rx tablet (Vitamin C) apixaban 5 mg tablet (Eliquis) 5 mg PO BID #60 tabs 01/03/23 Rx cefdinir 300 mg capsule 300 mg PO BID #10 caps 01/03/23 Rx clopidogrel 75 mg tablet 75 mg PO QAM #30 tabs 01/03/23 Rx prednisone 20 mg tablet 40 mg PO DAILY #8 tabs 01/03/23 Rx Patient History Medical History (Updated 01/03/23 @ 13:15 by Doc Harmon M.D.) Acute kidney injury Asthma USES PRN INH 1 X WK Atrial flutter PT COULD NOT CONFIRM Chronic anticoagulation Chronic left hip pain Diffuse myofascial pain syndrome History of DVT (deep vein thrombosis) RLE - 20 YEARS AGO FOLLOWING INJURY History of endometriosis History of NC (myocardial infarction) 2018 - FOLLOWS W/ DR. JACOBSEN History of pulmonary embolism Hypertension Hypothyroidism Migraine On anticoagulant therapy On home oxygen therapy 2 LPM 02 QHS Opioid dependence Osteoarthritis Osteoporosis Poor historian Pulmonary edema Pulmonary embolism (10/10/12) 20 YEARS AGO AFTER INJURY 30 YEARS AGO - POST OP CHOLEYCYSTECTOMY ON WARFARIN Sleep apnea NO DEVICE Surgical History History of appendectomy History of cardiac cath 2017 - [place] - NO STENTS History of cataract surgery History of section History of cholecystectomy History of colonoscopy History of esophagogastroduodenoscopy (EGD) History of left knee surgery History of tonsillectomy History of total abdominal hysterectomy and bilateral salpingo-oophorectomy History of tubal ligation Family History (Updated 01/02/23 @ 08:37 by See Shelby MD) Father , age 51 of cancer Esophageal cancer Lung cancer Mother , age 103 No problems noted. 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 She has diffuse ecchymosis on all extremities due to her anticoagulant use, but no focal ecchymosis around the right shoulder. She can actively abduct the right shoulder without assistance up to at least 95 degrees. Motor and sensory function is intact in the median, radial, ulnar, and axillary nerve distributions. Compartments are all soft and compressible. Results & Data Vital Signs (Past 12 Hours) Vital Signs Temp Pulse Pulse Resp BP BP Pulse Ox 01/03/23 11:31 36.6 C 102 H 16 116/60 91 01/03/23 11:23 89 17 95 01/03/23 07:59 36.7 C 90 20 142/83 H 92 01/03/23 06:38 89 01/03/23 06:59 90 17 94 01/03/23 04:00 36.5 C 92 H 18 135/78 93 01/03/23 02:50 93 H 01/03/23 02:41 80 18 94 O2 Del Method 01/03/23 11:31 Room Air 01/03/23 11:23 Room Air 01/03/23 07:59 Room Air 01/03/23 06:38 01/03/23 06:59 Room Air 01/03/23 04:00 Room Air 01/03/23 02:50 01/03/23 02:41 Room Air Diagnostic Findings Right shoulder x-rays were independently interpreted by me. They show severe glenohumeral joint arthritis with rather severe erosion of the glenoid. There is some glenohumeral joint subluxation due to the severe glenoid wear, although it is difficult to quantify the degree of subluxation since axillary view was not performed. No acute fracture or dislocation is appreciated.
[2023-01-03] MEDS ORDERED: ALBUTEROL 0.083% NEBU SOLN 3 ML VIAL NEB PRN (13:15)
--- NOTE | 2023-01-03 13:44 | Discharge Summary ---
Discharge Summary Date of Service January 03, 2023 Notes For Next Care Provider Drop in H/H on day of discharge with no bleeding Please repeat CBC Needs followup with Neurology after recent stroke. Also for followup on her migraines given sumatriptan can cause vasoconstriction and is no longer recommended. She left hospital against recommendation for rehab and may need more intensive PT or OT post discharge. Home health was ordered at time of discharge. Medication Changes From Visit NEW cefdinir 300mg PO BID x 5 days NEW Clopidogrel 75mg PO daily INCREASE Apixaban to 5mg PO BID NEW Prednisone 40mg PO daily x 5 days STOP Amitriptyline STOP Sumatriptan Admission HPI Per Admitting Provider Ms. Breaux presents to the [facility] today s/p fall when she was getting out of bed. She denied hitting her head and was not having any dizziness leading up to the event. She denies LOC. She wears 2LNC supplemental O2 at night. She uses inhalers PRN. Patient has fallen about 4-5 times over past year. Patient has a PMH that includes: COPD, asthma, history of PE/DVT (on Eloquis), osteoarthritis, hypothyroidism, recurrent falls and weakness. Pt has respiratory acidosis per VBG pH 7.28, CO2 52. Labs rather unremarkable; creatinine 1.35. Uses a walker at home, at baseline. Patient denies chest pain, SOB, dizziness, N/V/D, trauma. Sitting upright in her bed, she is in no apparent distress. She does have some wheezing and urinalysis revealed UTI. Patient has had numerous imaging studies done in the ED including rectal spine, femur x-ray, head CT, knee x-ray, lumbar spine CT, pelvic x-ray, shoulder x-ray. All imaging thus far was negative outside of chronic osteoarthritis. Shoulder x-ray indicated inferior subluxation of humeral head but appears to be chronic. On exam, patient NIH is 0 with intact CN. She has progressive weakness from OA. Patient will be admitted for further evaluation and management. Please see A/P for further evaluation. Principal Dx & Hospital Course #1 = Principal Diagnosis (1) Acute CVA (cerebrovascular accident): Acute right parietal stroke 2/2 small vessel ischemic disease. MRI reveals extensive old small vessel ischemic disease plus moderate generalized atrophy consistent with age. She has mild if any residual deficits today and is doing well overall. Adding plavix per neurology recommendations. Noted she is allergic to aspirin. Atorvastatin to be continued at 20mg daily per neuro recs. Although rehab recommended, patient declines. Sent home with home health. (2) Asthma with exacerbation: Presented with expiratory wheezes improved on steroids and nebulized bronchoddilator therapy. Cont this now. Cont Adviar and montelukast per home regimen. (3) Urinary tract infection: E coli UTI- Complete antibiotic course at home. (4) Falls frequently: PT/OT recommends rehab, but pt declines. Will order home health for PT/OT (5) Pulmonary embolism: chronically on apixaban. Increased dose to 5mg BID dosing as patient doesn't meet criteria for lower dose. (6) Hypertension: chronic, at goal. Cont coreg per home regimen. Discharge Exam CONSTITUTIONAL: obese, vitals as above, generally well-appearing, NAD EYES: normal conjunctivae, no scleral icterus ENT: external ear and nose normal,MMM NECK: trachea midline RESPIRATORY: clear to auscultation bilaterally, no crackles, rales or wheezes, normal respiratory effort CARDIOVASCULAR: regular rate and rhythm, 3/6 LYNN, no gallops or rubs, no JVD, no peripheral edema CHEST: inspection of chest was normal GASTROINTESTINAL: soft, nontender, ND, no guarding MUSCULOSKELETAL: strength 5/5 throughout, head is normocephalic and atraumatic, she was able to sit up on the side of the bed and hang her legs over the edge without issue. SKIN: warm and dry NEUROLOGIC: CN 2-12 grossly intact, no sensory deficit, normal cognition, normal speech, no tremor PSYCHIATRIC: alert cooperative and oriented to person, place and time. Euthymic mood, makes good eye contact, language grossly intact, recent and remote memory grossly intact. Updated Medication List Medication Instructions Recorded Confirmed Type albuterol sulfate 90 mcg/actuation 2 puff inhalation Q4 PRN Shortness 11/10/18 01/01/23 History aerosol inhaler (Ventolin HFA) Of Breath Or Wheezing alendronate 70 mg tablet 70 mg PO WK 11/10/18 01/01/23 History carvedilol 12.5 mg tablet 12.5 mg PO BID 11/10/18 01/01/23 History montelukast 10 mg tablet 10 mg PO HS 11/10/18 01/01/23 History duloxetine 30 mg capsule,delayed 30 mg PO QAM 02/28/19 01/01/23 History release pantoprazole 40 mg tablet,delayed 40 mg PO DAILY 07/22/19 01/01/23 History release atorvastatin 20 mg tablet 20 mg PO DAILY 10/11/19 01/01/23 History levothyroxine 50 mcg tablet 50 mcg PO DAILYBB 01/15/20 01/01/23 History albuterol sulfate 2.5 mg/3 mL 2.5 mg inhalation Q4H PRN Wheezing 01/06/21 01/01/23 History (0.083 %) solution for nebulization cholecalciferol (vitamin D3) 25 25 mcg PO DAILY 01/06/21 01/01/23 History mcg (1,000 unit) capsule gabapentin 100 mg capsule 200 mg PO TID 07/07/21 01/01/23 History acetaminophen 325 mg tablet 650 mg PO Q6H PRN PAIN/FEVER 03/07/22 01/01/23 History (Tylenol) duloxetine 60 mg capsule,delayed 60 mg PO QAM 03/07/22 01/01/23 History release fluticasone 100 mcg-salmeterol 50 1 inh inhalation BID 03/07/22 01/01/23 History mcg/dose blistr powdr for inhalation (Advair Diskus) furosemide 20 mg tablet 20 mg PO QAM 03/07/22 01/01/23 History iron,carbonyl 65 mg-vitamin C 125 1 tab PO DAILY 03/07/22 01/01/23 History mg tablet,delayed release (Vitron-C) ascorbic acid (vitamin C) 500 mg 250 mg PO DAILY@1100 #20 tabs 03/09/22 01/01/23 Rx tablet (Vitamin C) apixaban 5 mg tablet (Eliquis) 5 mg PO BID #60 tabs 01/03/23 Rx cefdinir 300 mg capsule 300 mg PO BID #10 caps 01/03/23 Rx clopidogrel 75 mg tablet 75 mg PO QAM #30 tabs 01/03/23 Rx prednisone 20 mg tablet 40 mg PO DAILY #8 tabs 01/03/23 Rx Hospital Stay Data Consultations 01/01/23 15:53 ED Decision to Admit Stat 01/01/23 19:37 Consult Neurology Routine 01/03/23 11:25 Consult Orthopedic Surgery Routine Diagnostic Imagining Performed 01/01/23 11:47 CT cervical spine wo con Stat CT head/brain wo con Stat CT lumbar spine wo con Stat 01/01/23 16:27 CT shoulder RT wo con Routine MRI Brain [MR brain wo con] Routine Pending Results Patient Have Any Pending Studies at Discharge: No Discharge Instructions Given to Patient (Per Discharging Provider) You were found to have a stroke. As a result, Plavix has been added to your regimen once daily. Your kidney function has improved, and as a result, your apixaban has been increased to 5mg twice daily. Please stop taking amitriptyline to avoid medication interactions. Please avoid sumatriptan for migraines per Neurology, and work with them on followup for a different medication that would not contribute to vasoconstriction of blood vessels after stroke. Please follow-up with Neurology in 2-3 weeks post-stroke. You have an appointment with your primary care physician (PCP) next week. Please have him recheck your CBC as you did have some anemia on your bloodwork at time of discharge. This will also be important to touch base with him post hospital discharge and ensure you are tolerating the medications without any issue. You were found to have a heart murmur in the hospital and a copy of your heart ultrasound was faxed to your PCP's office for review. You were found to have a fracture of the T12 vertebra in your back, possibly as a result of your recent fall. Please continue to work with physical and occupational therapy for strength training and ways to prevent future falls. The xray of you right shoulder revealed you have an inferior subluxation of the humeral head and a fracture could not totally be excluded. If your shoulder continues to bother you, please consider a referral to Orthopedics. You were wheezing on admission, and therefore, are being given a short course of steroids to take at home. Please follow-up with your PCP regarding how you are doing with this next week. You were initially placed on antibiotics but your urine culture was negative for infection. Given you UTI symptoms, we are continuing to treat you with a short course of antibiotics anyway. Please follow-up with your PCP regarding how you are doing with this next week. It was a pleasure taking care of you! Please call if you have any questions or problems. You can reach a [facility] hospitalist on duty at [facility] 24 hours a day by calling [phone]. Take care of yourself. DO Val Sawyer Hospitalist Total Time Total Time Spent Total Time Spent (In Minutes): 60
== END 2023-01-03 15:10 | disposition home or self-care (01) | DRG 65 ==
LOC: ED 11:28 → 2N 15:56 → SUATTDRO 15:56 → 2N 18:23

== ENCOUNTER 2023-07-26 02:58 | Inpatient (IN) ==
--- NOTE | 2023-07-26 03:05 | Emergency Department Note ---
Impression & Plan Acute non-ST elevation myocardial infarction (NSTEMI), Elevated troponin, Chest pain, Anemia ED Provider Note NAME: BEV ALDRIDGE AGE: 83 SEX: F : 1940 ARRIVES VIA: Ambulance INFORMANT: Patient, ED PROVIDER(S): Marcell Parker MD CHIEF COMPLAINT: Chest pain/shortness of breath MEDICAL DECISION MAKING: Patient presents due to concern for chest pain and shortness of breath patient was noted to be hypoxic and round. Patient was ordered breathing treatment IV was established and blood work was obtained. EKG with questionable elevation with left bundle branch block and V2. I did speak with on-call project technician Dr. Grimes recommended medical management does not think that she meets for acute STEMI criteria at this time. Patient's blood work shows a normal white counts with mild anemia hemoglobin 10.8 with a normal platelet count. The patient's kidney function is unremarkable. Patient does have a troponin of 349.7. Patient's chest x-ray does show right hemidiaphragmatic elevation. They did speak with the on-call hospitalist service Dr. Washington. The patient was admitted. We did have a discussion about heparin which was ordered and deferred given that she is anticoagulated and then this was ordered again. Critical Care: I have personally spent 40 minutes of critical care time in direct management of this patient. This includes bedside care, interpretation of diagnostic studies, and testing, discussion with consultants, patient, and family members, and other require inpatient management activities. This 40 minutes is in excess of all separately billable procedures. Discussion w/ other healthcare providers: Dr. Grimes with interventional cardiology Dr. Washington inpatient medicine service Prior /Outside records reviewed: I reviewed a discharge summary from January 03, 2023. This was completed by Dr. Mercedes. Patient was seen and admitted due to concern for fall with acute CVA asthma exacerbation UTI. Patient does take Eliquis 5 mg twice daily. I did review an echo from January 02, 2023. Patient did have normal LV size with mild concentric LVH septal motion is consistent with conduction abnormality no regional wall abnormality and LV EF is grossly normal. I did review a cardiology progress note from July 23, 2019. Patient reportedly underwent a cardiac catheterization with minimal luminal irregularities 10% stenosis within the LAD. Differential diagnosis: Cardiac ischemia, aortic dissection, pulmonary embolism, pneumothorax, pneumonia, pericarditis, myocarditis, GERD, cholecystitis, pancreatitis, musculoskeletal, as well as other pathologies were considered. Diagnostics, as interpreted by me: ECG: Likely sinus tachycardia, rate of 119, wide QRS, left bundle branch block pattern, normal axis, greater than 5 mm of discordance in V2. This is new from comparison EKG completed January 01, 2023 Cardiac monitoring: An order was placed for continuous cardiac monitoring. The monitor shows a rate of 114 with tachycardic and rhythm. Patient was placed on pulse oximetry Medical decision rules: Heart score, sgarbossa criteria Imaging studies: I informally interpreted the patient's chest x-ray which shows right hemidiaphragm elevation with formal report to follow. HPI: Patient presents due to concern for chest pain associated shortness of breath ongoing the last 2 or 3 days. This has been waxing and waning coming and going without an inciting cause or event. Patient was noted to be hypoxic per EMS and was given a DuoNeb treatment which seemed to improve her breathing. Patient denies any falls or trauma recently although did fall several weeks ago. Patient is compliant with her medications and does take a blood thinner. Patient denies any leg swelling or calf pain. Patient does follow with cardiology Ning Escobar through [facility]. Patient states that her pain has been left-sided with no significant radiation describes it as dull in nature. Patient denies any cough or fever. No recent travel. Patient has had some associated shortness of breath. Patient states that this also seems to come and go without any sort of inciting event without anything that makes it any better or worse PAST MEDICAL HISTORY: See Below PAST SURGICAL HISTORY: See Below SOCIAL HISTORY: See Below HOME MEDICATIONS: See Below ALLERGIES: See Below VITALS: See Below PHYSICAL EXAMINATION: GENERAL: NAD, non-toxic. EYE EXAM: Normal conjunctiva. PERRL, no anisocoria and EOM's grossly intact w/o pain. OROPHARYNX: Moist mucus membranes, grossly normal dentition. NECK: Supple, no nuchal rigidity, no adenopathy, non-tender. No signs of meningismus. FROM of the neck with good chin to chest and neck extension. No stridor. LUNGS: Clear to auscultation. Normal chest wall mechanics. HEART: NSR, no MRG. ABDOMEN: Abdomen soft, non-tender, no masses, no rebound or guarding. BACK: No CVA TTP. SKIN: No rashes and no bruising. UPPER EXTREMITIES: Upper extremities are grossly normal. LOWER EXTREMITIES: Grossly normal, no edema. Negative Homans' sign bilaterally NEURO EXAM: A&O x3, cranial nerves II-XII grossly intact, normal speech, moves all 4 extremities. Past Med/Surg History Medical History Anemia E coli bacteremia Acute kidney injury Abnormal urinalysis Chronic left hip pain Diffuse myofascial pain syndrome Chronic anticoagulation Opioid dependence History of pulmonary embolism Pulmonary edema History of HI (myocardial infarction) 2018 - FOLLOWS W/ DR. JACOBSEN On anticoagulant therapy History of endometriosis Osteoporosis Osteoarthritis Migraine Poor historian History of DVT (deep vein thrombosis) RLE - 20 YEARS AGO FOLLOWING INJURY On home oxygen therapy 2 LPM 02 QHS Sleep apnea NO DEVICE Hypertension Hypothyroidism Asthma USES PRN INH 1 X WK Pulmonary embolism (10/10/12) 20 YEARS AGO AFTER INJURY 30 YEARS AGO - POST OP CHOLEYCYSTECTOMY ON WARFARIN Atrial flutter PT COULD NOT CONFIRM Surgical History History of cardiac cath 2018 - [place] - NO STENTS History of left knee surgery History of tubal ligation History of section History of total abdominal hysterectomy and bilateral salpingo-oophorectomy History of appendectomy History of cholecystectomy History of cataract surgery History of tonsillectomy History of esophagogastroduodenoscopy (EGD) History of colonoscopy Family History Father , age 51 of cancer Esophageal cancer Lung cancer Mother , age 103 No problems noted. 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 [employer] Feels Safe at Home: Yes Safety Concerns: Feels Safe At This Time Assistive Devices: Hospital Bed, Nebulizer, Oxygen - at Night and Walker Allergies Allergies Allergy/AdvReac Type Severity Reaction Status Date / Time aspirin Allergy Intermediate ITCHING Verified 07/26/23 03:08 Sulfa (Sulfonamide Allergy Unknown PER Verified 07/26/23 03:08 Antibiotics) GMG--HAPPENED IN HOSPITAL Home Meds Home Medications Medication Instructions Recorded Confirmed albuterol sulfate 90 mcg/actuation 2 puff inhalation Q4 PRN Shortness 11/10/18 07/26/23 aerosol inhaler (Ventolin HFA) Of Breath Or Wheezing carvedilol 12.5 mg tablet 12.5 mg PO BID 11/10/18 07/26/23 montelukast 10 mg tablet 10 mg PO HS 11/10/18 07/26/23 pantoprazole 40 mg tablet,delayed 40 mg PO DAILY 07/22/19 07/26/23 release atorvastatin 20 mg tablet 20 mg PO DAILY 10/11/19 07/26/23 levothyroxine 50 mcg tablet 50 mcg PO DAILYBB 01/15/20 07/26/23 albuterol sulfate 2.5 mg/3 mL 2.5 mg inhalation Q4H PRN Wheezing 01/06/21 07/26/23 (0.083 %) solution for nebulization cholecalciferol (vitamin D3) 25 25 mcg PO DAILY 01/06/21 07/26/23 mcg (1,000 unit) capsule duloxetine 60 mg capsule,delayed 60 mg PO BID 03/07/22 07/26/23 release fluticasone 100 mcg-salmeterol 50 1 inh inhalation BID 03/07/22 07/26/23 mcg/dose blistr powdr for inhalation (Advair Diskus) furosemide 20 mg tablet 20 mg PO QAM 03/07/22 07/26/23 iron,carbonyl 65 mg-vitamin C 125 1 tab PO DAILY 03/07/22 07/26/23 mg tablet,delayed release (Vitron-C) acetaminophen 325 mg tablet 650 mg PO Q6H PRN Pain 07/26/23 07/26/23 (Tylenol) gabapentin 300 mg capsule 300 mg PO TID 07/26/23 07/26/23 lasmiditan 50 mg tablet (Reyvow) 50 mg PO DIRECTED PRN Migraine 07/26/23 07/26/23 Headache lidocaine 5 % topical patch 1 patch topical DAILY 07/26/23 07/26/23 tramadol 50 mg tablet 50 mg PO BID PRN Pain 07/26/23 07/26/23 Previous Rx's Medication Instructions Recorded apixaban 5 mg tablet (Eliquis) 5 mg PO BID #60 tabs 01/03/23 clopidogrel 75 mg tablet 75 mg PO QAM #30 tabs 01/03/23 Results & Data (ED) Vital Signs Vital Signs - 24 hr 07/26/23 03:04 07/26/23 03:04 07/26/23 03:04 Temperature 37 C Temperature Source Oral Pulse Rate 118 H Respiratory Rate 26 H Respiratory Effort / Characteristics Labored Non-Labored Labored Respiratory Depth Normal Normal Respiratory Pattern Regular Blood Pressure 149/81 H Blood Pressure Mean 103 Pulse Oximetry 93 Oxygen Delivery Method Nasal Cannula Nasal Cannula Oxygen Flow Rate 3 Sepsis Recent Fever Within 48 Hours No Sepsis New/Unexplained Change in Mental Status N/A Sepsis Action Taken by Nursing Physician Notified Home Medications Current Medication List: was personally reviewed by me Laboratory Data Attestation: I reviewed the patient's lab results. 07/30/23 04:52 07/30/23 04:52 Lab Results 07/26/23 07/26/23 07/26/23 Range/Units 03:24 03:27 03:37 WBC 5.24 (4.8-10.8) K/ul RBC 2.99 L (4.20-5.40) M/uL Hgb 10.8 L (12.0-16.0) g/dl POC Hgb 12.2 (12.0-16.0) g/dl Hct 34.2 L (37.0-47.0) % POC Hct 36 L (37-47) % MCV 114.4 H (80.0-100.0) fL MCH 36.1 H (25.0-34.0) pg MCHC 31.6 L (32.0-36.0) g/dL RDW Std Deviation 59.8 H (36.4-46.3) fL RDW Coeff of Vijay 14.3 (11.5-14.5) % Plt Count 98 L (130-400) K/uL MPV 10.8 (9.4-12.4) fL Immature Gran % (Auto) 0.2 % Neut % (Auto) 96.5 % Lymph % (Auto) 2.1 % [place] % (Auto) 0.2 % Eos % (Auto) 0.6 % Baso % (Auto) 0.4 % Neut # (Auto) 5.06 (1.40-6.50) K/uL Lymph # (Auto) 0.11 L (1.20-3.40) K/uL [place] # (Auto) 0.01 L (0.11-0.59) K/uL Eos # (Auto) 0.03 (0.00-0.50) K/uL Baso # (Auto) 0.02 (0.00-0.20) K/uL Immature Gran # (Auto) 0.01 (0.01-0.20) K/uL Toxic Vacuolation 1+ Polychromasia 1+ Macrocytosis Present PT (9.0-12.0) Seconds INR (0.9-1.1) APTT (21-31) Seconds PTT Ratio POC Sodium 140 (135-144) mmol/L Sodium 142 (136-145) mmol/L POC Potassium 3.8 (3.3-5.0) mmol/L Potassium 4.2 (3.5-5.1) mmol/L POC Chloride 102 (101-112) mmol/L Chloride 104 (98-107) mmol/L Carbon Dioxide 31 (21-32) mmol/L POC Total CO2 30 (24-31) mmol/L Anion Gap 7 (3-11) POC Anion Gap 13.0 L (16-25) mmol/L POC BUN 20 H (7-18) mg/dl BUN 19 (6-23) mg/dl Creatinine 1.18 (0.6-1.2) mg/dl POC Creatinine 1.3 (0.6-1.3) mg/dl Est Cr Clr Drug Dosing 40.9 ml/min Est GFR ( Amer) 50.1 ml/min Est GFR (Non-Af Amer) 43.2 ml/min BUN/Creatinine Ratio 16.1 (10-20) Glucose 78 (70-99(Fasting)) mg/dl POC Glucose (other) 75 (70-99) mg/dl Calcium 8.3 L (8.6-10.3) mg/dl POC Ioniz Calcium Garfield 1.06 L (1.12-1.32) mmol/l Total Bilirubin 1.3 H (0.2-1.0) mg/dl AST 27 (13-39) U/L ALT 10 (7-52) U/L Alkaline Phosphatase 65 (34-104) U/L Troponin I High Sens 349.7 H* (0-14) pg/ml Total Protein 6.3 (6.0-8.3) gm/dl Albumin 3.3 L (3.4-5.0) gm/dl Globulin 3.0 (2.5-4.0) gm/dl Albumin/Globulin Ratio 1.1 (0.9-2) Lipase 4 L (11-82) U/L Enterobacterales (PCR) DETECTED A (NotDetected) E. coli (PCR) DETECTED A (NotDetected) mcr-1 Colistin Res Gene PCR Not Detected (NotDetected) blaIMP Car res Gene PCR Not Detected (NotDetected) KPC-Carbap Res Gene PCR Not Detected (NotDetected) blaNDM Car Res Gene PCR Not Detected (NotDetected) OXA-48 Carbapenem Resis Gene (PCR) Not Detected (NotDetected) blaVIM Car Res Gene PCR Not Detected (NotDetected) CTX-M Gene Resistance (PCR) Not Detected (NotDetected) Bld Cult ID Panel PCR See PCR Comment (NotDetected) 07/26/23 07/26/23 Range/Units 05:15 05:26 WBC (4.8-10.8) K/ul RBC (4.20-5.40) M/uL Hgb (12.0-16.0) g/dl POC Hgb (12.0-16.0) g/dl Hct (37.0-47.0) % POC Hct (37-47) % MCV (80.0-100.0) fL MCH (25.0-34.0) pg MCHC (32.0-36.0) g/dL RDW Std Deviation (36.4-46.3) fL RDW Coeff of Vijay (11.5-14.5) % Plt Count (130-400) K/uL MPV (9.4-12.4) fL Immature Gran % (Auto) % Neut % (Auto) % Lymph % (Auto) % [place] % (Auto) % Eos % (Auto) % Baso % (Auto) % Neut # (Auto) (1.40-6.50) K/uL Lymph # (Auto) (1.20-3.40) K/uL [place] # (Auto) (0.11-0.59) K/uL Eos # (Auto) (0.00-0.50) K/uL Baso # (Auto) (0.00-0.20) K/uL Immature Gran # (Auto) (0.01-0.20) K/uL Toxic Vacuolation Polychromasia Macrocytosis PT 12.3 H (9.0-12.0) Seconds INR 1.1 (0.9-1.1) APTT 26 (21-31) Seconds PTT Ratio 0.9 POC Sodium (135-144) mmol/L Sodium (136-145) mmol/L POC Potassium (3.3-5.0) mmol/L Potassium (3.5-5.1) mmol/L POC Chloride (101-112) mmol/L Chloride (98-107) mmol/L Carbon Dioxide (21-32) mmol/L POC Total CO2 (24-31) mmol/L Anion Gap (3-11) POC Anion Gap (16-25) mmol/L POC BUN (7-18) mg/dl BUN (6-23) mg/dl Creatinine (0.6-1.2) mg/dl POC Creatinine (0.6-1.3) mg/dl Est Cr Clr Drug Dosing ml/min Est GFR ( Amer) ml/min Est GFR (Non-Af Amer) ml/min BUN/Creatinine Ratio (10-20) Glucose (70-99(Fasting)) mg/dl POC Glucose (other) (70-99) mg/dl Calcium (8.6-10.3) mg/dl POC Ioniz Calcium Garfield (1.12-1.32) mmol/l Total Bilirubin (0.2-1.0) mg/dl AST (13-39) U/L ALT (7-52) U/L Alkaline Phosphatase (34-104) U/L Troponin I High Sens 684.5 H* D (0-14) pg/ml Total Protein (6.0-8.3) gm/dl Albumin (3.4-5.0) gm/dl Globulin (2.5-4.0) gm/dl Albumin/Globulin Ratio (0.9-2) Lipase (11-82) U/L Enterobacterales (PCR) (NotDetected) E. coli (PCR) (NotDetected) mcr-1 Colistin Res Gene PCR (NotDetected) blaIMP Car res Gene PCR (NotDetected) KPC-Carbap Res Gene PCR (NotDetected) blaNDM Car Res Gene PCR (NotDetected) OXA-48 Carbapenem Resis Gene (PCR) (NotDetected) blaVIM Car Res Gene PCR (NotDetected) CTX-M Gene Resistance (PCR) (NotDetected) Bld Cult ID Panel PCR (NotDetected) Administered Medications Acetaminophen (Acetaminophen 325 Mg Tab) 650 mg PO Q4H PRN PRN Reason: Pain or Fever Stop: 08/25/23 07:54 Last Admin: 07/29/23 22:01 Dose: 650 mg Documented By: Admin: 07/29/23 16:09 Dose: 650 mg Documented By: Admin: 07/28/23 15:56 Dose: 650 mg Documented By: RUSS Ascorbic Acid (Ascorbic Acid 500 Mg Tab) 250 mg PO DAILY [facility] Stop: 08/25/23 08:59 Last Admin: 07/30/23 07:44 Dose: 250 mg Documented By: Admin: 07/29/23 08:00 Dose: 250 mg Documented By: Admin: 07/28/23 08:02 Dose: 250 mg Documented By: Admin: 07/27/23 08:48 Dose: Not Given Documented By: Admin: 07/26/23 10:45 Dose: 250 mg Documented By: MT Atorvastatin Calcium (Atorvastatin 20 Mg Tab) 20 mg PO DAILY [facility] Stop: 08/25/23 08:59 Last Admin: 07/30/23 07:44 Dose: 20 mg Documented By: Admin: 07/29/23 08:00 Dose: 20 mg Documented By: Admin: 07/28/23 08:02 Dose: 20 mg Documented By: Admin: 07/27/23 08:48 Dose: Not Given Documented By: Admin: 07/26/23 10:46 Dose: 20 mg Documented By: MT Clopidogrel Bisulfate (Clopidogrel Bisulfate 75 Mg Tab) 75 mg PO QAM [facility] Stop: 08/25/23 08:59 Last Admin: 07/26/23 10:46 Dose: 75 mg Documented By: MT Ferrous Sulfate (Ferrous Sulfate 325 Mg Tab) 325 mg PO DAILY [facility] Stop: 08/25/23 08:59 Last Admin: 07/30/23 07:45 Dose: 325 mg Documented By: Admin: 07/29/23 08:00 Dose: 325 mg Documented By: Admin: 07/28/23 08:01 Dose: 325 mg Documented By: Admin: 07/27/23 08:48 Dose: Not Given Documented By: Admin: 07/26/23 10:46 Dose: 325 mg Documented By: MT Fluticasone/Vilanterol (Fluticasone/Vilanterol 100/25mcg 14 Puffs/Inhaler) 1 puffs INH DAILY [facility] Stop: 08/25/23 08:59 Last Admin: 07/30/23 07:43 Dose: 1 puffs Documented By: Admin: 07/29/23 08:00 Dose: 1 puffs Documented By: Admin: 07/28/23 08:02 Dose: 1 puffs Documented By: Admin: 07/27/23 08:48 Dose: 1 puffs Documented By: Admin: 07/26/23 10:44 Dose: 1 puffs Documented By: ELEAZAR Gabapentin (Gabapentin 300 Mg Cap) 300 mg PO TID [facility] Stop: 08/25/23 08:59 Last Admin: 07/26/23 15:41 Dose: 300 mg Documented By: Admin: 07/26/23 10:46 Dose: 300 mg Documented By: MT Ceftriaxone Sodium 2,000 mg/ (Dextrose) 50 mls @ 100 mls/hr IV Q24H [facility] Stop: 08/11/23 11:59 Last Infusion: 07/29/23 12:19 Dose: Infused Documented By: Admin: 07/29/23 11:46 Dose: 100 mls/hr Documented By: Infusion: 07/28/23 12:13 Dose: Infused Documented By: Admin: 07/28/23 11:34 Dose: 100 mls/hr Documented By: ES Ipratropium Rowlett (Ipratropium Rowlett Neb Soln 0.02% 2.5 Ml Vial) 0.5 mg INH QIDR [facility] Stop: 08/25/23 10:59 Last Admin: 07/30/23 07:14 Dose: 0.5 mg Documented By: Admin: 07/29/23 20:47 Dose: 0.5 mg Documented By: Admin: 07/29/23 14:20 Dose: 0.5 mg Documented By: Admin: 07/29/23 10:10 Dose: 0.5 mg Documented By: Admin: 07/29/23 07:21 Dose: 0.5 mg Documented By: Admin: 07/28/23 20:10 Dose: 0.5 mg Documented By: Admin: 07/28/23 14:24 Dose: 0.5 mg Documented By: Admin: 07/28/23 11:00 Dose: 0.5 mg Documented By: Admin: 07/28/23 07:47 Dose: 0.5 mg Documented By: Admin: 07/27/23 20:15 Dose: 0.5 mg Documented By: Admin: 07/27/23 14:51 Dose: 0.5 mg Documented By: Admin: 07/27/23 11:04 Dose: 0.5 mg Documented By: Admin: 07/27/23 07:58 Dose: 0.5 mg Documented By: Admin: 07/26/23 20:39 Dose: 0.5 mg Documented By: Admin: 07/26/23 13:59 Dose: 0.5 mg Documented By: Admin: 07/26/23 10:06 Dose: 0.5 mg Documented By: TALITA Levalbuterol HCl (Levalbuterol 1.25 Mg/3 Ml Neb) 1.25 mg NEB QIDR [facility] Stop: 08/25/23 10:59 Last Admin: 07/30/23 07:15 Dose: 1.25 mg Documented By: Admin: 07/29/23 20:47 Dose: 1.25 mg Documented By: Admin: 07/29/23 14:20 Dose: 1.25 mg Documented By: Admin: 07/29/23 10:10 Dose: 1.25 mg Documented By: Admin: 07/29/23 07:21 Dose: 1.25 mg Documented By: Admin: 07/28/23 20:10 Dose: 1.25 mg Documented By: Admin: 07/28/23 14:25 Dose: 1.25 mg Documented By: Admin: 07/28/23 11:00 Dose: 1.25 mg Documented By: Admin: 07/28/23 07:47 Dose: 1.25 mg Documented By: Admin: 07/27/23 20:15 Dose: 1.25 mg Documented By: Admin: 07/27/23 14:51 Dose: 1.25 mg Documented By: Admin: 07/27/23 11:04 Dose: 1.25 mg Documented By: Admin: 07/27/23 07:58 Dose: 1.25 mg Documented By: Admin: 07/26/23 20:39 Dose: 1.25 mg Documented By: Admin: 07/26/23 14:00 Dose: 1.25 mg Documented By: Admin: 07/26/23 10:06 Dose: 1.25 mg Documented By: TALITA Levothyroxine Sodium (Levothyroxine Sodium 50 Mcg Tablet) 50 mcg PO DAILYBB [facility] Stop: 08/25/23 07:54 Last Admin: 07/30/23 07:44 Dose: 50 mcg Documented By: Admin: 07/29/23 06:14 Dose: 50 mcg Documented By: Admin: 07/28/23 08:02 Dose: 50 mcg Documented By: Admin: 07/27/23 08:19 Dose: Not Given Documented By: Admin: 07/26/23 10:45 Dose: 50 mcg Documented By: ELEAZAR Lidocaine (Lidocaine 5% 1 Patch) 1 patch TD DAILY [facility] Stop: 08/25/23 08:59 Last Admin: 07/30/23 07:44 Dose: 1 patch Documented By: Admin: 07/29/23 07:59 Dose: 1 patch Documented By: Admin: 07/28/23 08:02 Dose: 1 patch Documented By: Admin: 07/27/23 08:48 Dose: 1 patch Documented By: Admin: 07/26/23 10:49 Dose: 1 patch Documented By: ELEAZAR Metoprolol Tartrate (Metoprolol Tartrate 25 Mg Tab) 25 mg PO QID [facility] Stop: 08/28/23 08:59 Last Admin: 07/30/23 07:43 Dose: 25 mg Documented By: Admin: 07/29/23 19:35 Dose: 25 mg Documented By: Admin: 07/29/23 16:10 Dose: 25 mg Documented By: Admin: 07/29/23 11:46 Dose: 25 mg Documented By: Admin: 07/29/23 07:59 Dose: 25 mg Documented By: CHAUNCEY Miconazole Nitrate (Miconazole Nitrate 2% Cr 30 Gm Tube) 1 appln EXT BID [facility] Stop: 08/26/23 09:14 Last Admin: 07/30/23 07:43 Dose: 1 appln Documented By: Admin: 07/29/23 19:36 Dose: 1 appln Documented By: Admin: 07/29/23 08:01 Dose: 1 appln Documented By: Admin: 07/28/23 20:50 Dose: 1 appln Documented By: Admin: 07/28/23 08:03 Dose: 1 appln Documented By: Admin: 07/27/23 22:40 Dose: 1 appln Documented By: Admin: 07/27/23 10:39 Dose: 1 appln Documented By: CHAUNCEY Miscellaneous (Remove Lidoderm Patch) 1 each N/A DAILY@2100 [facility] Stop: 08/25/23 20:59 Last Admin: 07/29/23 19:37 Dose: 1 each Documented By: Admin: 07/28/23 20:50 Dose: 1 each Documented By: Admin: 07/27/23 23:02 Dose: 1 each Documented By: Admin: 07/26/23 21:13 Dose: 1 each Documented By: ASHLEY Montelukast Sodium (Montelukast Sodium 10 Mg Tablet) 10 mg PO HS [facility] Stop: 08/25/23 20:59 Last Admin: 07/29/23 19:37 Dose: 10 mg Documented By: Admin: 07/28/23 20:10 Dose: 10 mg Documented By: Admin: 07/27/23 22:56 Dose: 10 mg Documented By: Admin: 07/26/23 21:13 Dose: 10 mg Documented By: ASHLEY Pantoprazole Sodium (Pantoprazole 40 Mg Tab) 40 mg PO DAILY [facility] Stop: 08/25/23 08:59 Last Admin: 07/30/23 07:44 Dose: 40 mg Documented By: Admin: 07/29/23 08:00 Dose: 40 mg Documented By: Admin: 07/28/23 08:03 Dose: 40 mg Documented By: Admin: 07/27/23 08:48 Dose: Not Given Documented By: Admin: 07/26/23 10:47 Dose: 40 mg Documented By: ELEAZAR Potassium Chloride (Potassium Chloride Crtab 20 Meq Tabcr) 40 meq PO BID [facility] Stop: 08/28/23 20:59 Last Admin: 07/30/23 07:44 Dose: 40 meq Documented By: Admin: 07/29/23 19:36 Dose: 40 meq Documented By: ASTER Potassium Phosphate (Pot Phosphate Monobasic W/ Sod Tab) 2 tab PO QID [facility] Stop: 07/31/23 08:59 Last Admin: 07/30/23 07:54 Dose: 2 tab Documented By: CHAUNCEY Spironolactone (Spironolactone 25 Mg Tab) 25 mg PO QAM [facility] Stop: 08/29/23 08:59 Last Admin: 07/30/23 07:45 Dose: 25 mg Documented By: CHAUNCEY Tramadol HCl (Tramadol Hcl 50 Mg Tablet) 50 mg PO BID PRN PRN Reason: Pain Stop: 08/25/23 07:54 Last Admin: 07/30/23 07:46 Dose: 50 mg Documented By: Admin: 07/29/23 21:40 Dose: 50 mg Documented By: Admin: 07/29/23 08:02 Dose: 50 mg Documented By: Admin: 07/28/23 20:10 Dose: 50 mg Documented By: Admin: 07/28/23 09:19 Dose: 50 mg Documented By: Admin: 07/27/23 02:46 Dose: 50 mg Documented By: ARR Discontinued Medications Albuterol (Albut/Ipratrop 3mg/0.5mg Neb 3 Ml Vial) Confirm Administered Dose 3 ml .ROUTE .STK-MED ONE Stop: 07/26/23 10:00 Last Admin: 07/26/23 10:06 Dose: Not Given Documented By: TALITA Carvedilol (Carvedilol 12.5 Mg Tab) 12.5 mg PO BID [facility] Stop: 08/25/23 08:59 Last Admin: 07/26/23 11:41 Dose: Not Given Documented By: ELEAZAR Dextrose (Dextrose 50% 50 Ml Syringe) Confirm Administered Dose 50 ml IV .STK- MED ONE Stop: 07/27/23 03:30 Last Admin: 07/27/23 03:53 Dose: Not Given Documented By: ARR Dextrose (Dextrose 50% 50 Ml Syringe) 25 ml IV NOW STA Stop: 07/27/23 03:50 Last Admin: 07/27/23 03:54 Dose: 25 ml Documented By: ASHLEY Fentanyl Citrate (Fentanyl Citrate Pf 100 Mcg/2 Ml Vial) Confirm Administered Dose 100 mcg .ROUTE .STK-MED ONE Stop: 07/26/23 16:27 Last Admin: 07/26/23 17:16 Dose: Not Given Documented By: RAINE Furosemide (Furosemide 20 Mg Tab) 20 mg PO QAM [facility] Stop: 08/25/23 08:59 Last Admin: 07/26/23 10:29 Dose: Not Given Documented By: ELEAZAR Furosemide (Furosemide Inj 20 Mg/2 Ml Vial) 20 mg IV ONE ONE Stop: 07/26/23 09:35 Last Admin: 07/26/23 10:44 Dose: 20 mg Documented By: ELEAZAR Heparin Sodium (Porcine) (Heparin Sod (Porcine) 1000 Unit/Ml) 4,000 units IV NOW ONE Stop: 07/26/23 05:01 Last Admin: 07/26/23 05:31 Dose: Not Given Documented By: DANY Heparin Sodium (Porcine) (Heparin (Porcine) 1000 Unit/Ml 10 Ml ([employer] Sergeant Use Only)) Confirm Administered Dose 10,000 units .ROUTE .STK-MED ONE Stop: 07/26/23 16:27 Last Admin: 07/26/23 17:16 Dose: Not Given Documented By: RAINE Heparin Sodium/Dextrose (Heparin Iv Adult Wt-Based Low-Dose W/ Initial Bolus Protocol) 1 each IV NOW STA; Protocol Stop: 07/26/23 04:33 Last Admin: 07/26/23 05:31 Dose: Not Given Documented By: DANY Heparin Sodium/Dextrose (Heparin Iv Adult Wt-Based Low-Dose *No* Initial Bolus Protocol) 1 each IV ONE STA; Protocol Stop: 07/26/23 05:44 Last Admin: 07/26/23 10:28 Dose: Not Given Documented By: ELEAZAR Heparin Sodium/Sodium Chloride (Heparin In Nss Infusion 1000 Unit/500 Ml (2 U/Ml) Bag) Confirm Administered Dose 3,000 units IV .STK-MED ONE Stop: 07/26/23 16:27 Last Admin: 07/26/23 17:15 Dose: 3,000 units Documented By: RAINE Heparin Sodium/Dextrose (Heparin Sodium/Dextrose) 25,000 units in 500 mls @ 17 mls/hr IV .Q24H [facility]; Protocol Stop: 08/25/23 04:59 Last Admin: 07/26/23 05:31 Dose: Not Given Documented By: DANY Magnesium Sulfate/Dextrose (Magnesium Sulfate / D5w) 1 gm in 100 mls @ 50 mls/hr IV ONE ONE Stop: 07/26/23 07:20 Last Infusion: 07/26/23 08:55 Dose: Infused Documented By: Admin: 07/26/23 06:07 Dose: 50 mls/hr Documented By: DANY Heparin Sodium/Dextrose (Heparin Sodium/Dextrose) 25,000 units in 500 mls @ 17 mls/hr IV .Q24H [facility]ACI; Protocol Stop: 08/25/23 05:59 Last Titration: 07/26/23 18:13 Dose: Infused Documented By: TENA Co-signed By: RUSS Admin: 07/26/23 06:56 Dose: 850 units/hr, 17 mls/hr Documented By: DANY Co-signed By: ELEAZAR Lactated Ringer's (Lr) 1,000 mls @ 100 mls/hr IV .Q10H [facility] Stop: 08/25/23 14:44 Last Infusion: 07/27/23 07:17 Dose: Infused Documented By: Admin: 07/26/23 22:12 Dose: 100 mls/hr Documented By: Infusion: 07/26/23 22:12 Dose: Infused Documented By: Admin: 07/26/23 15:08 Dose: 100 mls/hr Documented By: ELEAZAR Piperacillin Sod/Tazobactam (Sod 4.5 gm/ Dextrose) 100 mls @ 200 mls/hr IV ONE ONE; Protocol Stop: 07/26/23 15:29 Last Infusion: 07/26/23 18:12 Dose: Infused Documented By: Admin: 07/26/23 15:41 Dose: 200 mls/hr Documented By: MT Piperacillin Sod/Tazobactam (Sod 4.5 gm/ Dextrose) 100 mls @ 25 mls/hr IV Q8H [facility]; Protocol Stop: 07/28/23 20:59 Last Infusion: 07/28/23 09:18 Dose: Infused Documented By: Admin: 07/28/23 05:22 Dose: 25 mls/hr Documented By: Infusion: 07/28/23 02:45 Dose: Infused Documented By: Admin: 07/27/23 22:41 Dose: 25 mls/hr Documented By: Infusion: 07/27/23 17:08 Dose: Infused Documented By: Admin: 07/27/23 13:25 Dose: 25 mls/hr Documented By: Infusion: 07/27/23 11:32 Dose: Infused Documented By: Admin: 07/27/23 08:25 Dose: 25 mls/hr Documented By: Infusion: 07/27/23 02:20 Dose: Infused Documented By: Admin: 07/26/23 22:11 Dose: 25 mls/hr Documented By: ARR Vancomycin HCl 1,750 mg/ (Sodium Chloride) 535 mls @ 200 mls/hr IV ONE ONE Stop: 07/26/23 17:40 Last Admin: 07/26/23 18:12 Dose: Not Given Documented By: CF Potassium Chloride (K Dev / Wtr) 10 meq in 100 mls @ 100 mls/hr IV Q1H [facility] Stop: 07/26/23 18:59 Last Infusion: 07/26/23 22:08 Dose: Infused Documented By: Admin: 07/26/23 20:58 Dose: 100 mls/hr Documented By: Infusion: 07/26/23 20:58 Dose: Infused Documented By: Admin: 07/26/23 20:00 Dose: 100 mls/hr Documented By: Infusion: 07/26/23 19:56 Dose: Infused Documented By: Admin: 07/26/23 18:43 Dose: 100 mls/hr Documented By: Infusion: 07/26/23 18:11 Dose: Infused Documented By: Admin: 07/26/23 15:14 Dose: 100 mls/hr Documented By: MT Vancomycin HCl 1,750 mg/ (Sodium Chloride) 535 mls @ 200 mls/hr IV ONE ONE Stop: 07/26/23 22:10 Last Infusion: 07/26/23 23:53 Dose: Infused Documented By: Admin: 07/26/23 21:11 Dose: 200 mls/hr Documented By: ARR Sodium Chloride (Nss) 500 mls @ 500 mls/hr IV .Q1H [facility] Stop: 07/26/23 20:59 Last Infusion: 07/26/23 21:05 Dose: Infused Documented By: Admin: 07/26/23 20:00 Dose: 500 mls/hr Documented By: ARR Vancomycin HCl 1,000 mg/ (Sodium Chloride) 270 mls @ 200 mls/hr IV Q24H [facility] Stop: 07/29/23 11:59 Last Infusion: 07/27/23 13:26 Dose: Infused Documented By: Admin: 07/27/23 11:32 Dose: 200 mls/hr Documented By: ES Sodium Chloride (Nss) 1,000 mls @ 999 mls/hr IV .Q1H1M [facility]I Stop: 07/27/23 03:15 Last Infusion: 07/27/23 03:17 Dose: Infused Documented By: Admin: 07/27/23 02:15 Dose: 999 mls/hr Documented By: ARR Sodium Chloride (Nss) 1,000 mls @ 100 mls/hr IV .Q10H [facility]I Stop: 08/26/23 02:14 Last Infusion: 07/27/23 07:17 Dose: Infused Documented By: Admin: 07/27/23 03:23 Dose: 100 mls/hr Documented By: ARR Sodium Chloride (Nss) 500 mls @ 500 mls/hr IV .Q1H [facility] Stop: 07/27/23 03:59 Last Admin: 07/27/23 03:31 Dose: Not Given Documented By: ARR Doxycycline Hyclate 100 mg/ (Dextrose) 100 mls @ 50 mls/hr IV NOW STA Stop: 07/27/23 05:48 Last Infusion: 07/27/23 07:14 Dose: Infused Documented By: Admin: 07/27/23 04:36 Dose: 50 mls/hr Documented By: ARR Dextrose/Sodium Chloride (D5w And Nss) 1,000 mls @ 100 mls/hr IV .Q10H [facility]ACI Stop: 08/26/23 03:44 Last Infusion: 07/28/23 10:00 Dose: Infused Documented By: Admin: 07/28/23 08:03 Dose: Not Given Documented By: Admin: 07/28/23 00:27 Dose: 50 mls/hr Documented By: Infusion: 07/28/23 00:27 Dose: Infused Documented By: Infusion: 07/27/23 09:00 Dose: 50 mls/hr Documented By: Admin: 07/27/23 08:19 Dose: 100 mls/hr Documented By: Infusion: 07/27/23 08:19 Dose: Infused Documented By: Admin: 07/27/23 03:50 Dose: 100 mls/hr Documented By: ARR Magnesium Sulfate/Dextrose (Magnesium Sulfate / D5w) 1 gm in 100 mls @ 50 mls/hr IV Q2H [facility] Stop: 07/27/23 08:29 Last Infusion: 07/27/23 10:18 Dose: Infused Documented By: Admin: 07/27/23 08:20 Dose: 50 mls/hr Documented By: Infusion: 07/27/23 08:20 Dose: Infused Documented By: Admin: 07/27/23 07:04 Dose: 50 mls/hr Documented By: CF Albumin Human (Albumin 5%) 250 mls @ 500 mls/hr IV ONE ONE Stop: 07/27/23 05:18 Last Infusion: 07/27/23 08:12 Dose: Infused Documented By: Admin: 07/27/23 07:04 Dose: 500 mls/hr Documented By: CF Norepinephrine Bitartrate (Levophed/D5w) 4 mg in 250 mls @ 0 mls/hr IV .Q0M TRACI; Protocol Stop: 08/26/23 05:44 Last Titration: 07/28/23 09:18 Dose: Infused Documented By: Admin: 07/27/23 17:08 Dose: Not Given Documented By: Titration: 07/27/23 16:30 Dose: 0 mcg/kg/min, 0 mls/hr Documented By: Titration: 07/27/23 13:25 Dose: 0.05 mcg/kg/min, 16.5 mls/hr Documented By: Titration: 07/27/23 10:18 Dose: 0.07 mcg/kg/min, 23.1 mls/hr Documented By: Titration: 07/27/23 08:12 Dose: 0.09 mcg/kg/min, 29.7 mls/hr Documented By: Titration: 07/27/23 07:30 Dose: 0.07 mcg/kg/min, 23.1 mls/hr Documented By: Admin: 07/27/23 07:05 Dose: 0.05 mcg/kg/min, 16.5 mls/hr Documented By: TENA Co-signed By: CHAUNCEY Ipratropium Rowlett (Ipratropium [place] Neb Soln 0.02% 2.5 Ml Vial) Confirm Administered Dose 0.5 mg .ROUTE .STK-MED ONE Stop: 07/26/23 10:00 Last Admin: 07/26/23 10:07 Dose: Not Given Documented By: TALITA Levalbuterol HCl (Levalbuterol 1.25 Mg/3 Ml Neb) 1.25 mg NEB NOW STA Stop: 07/26/23 03:21 Last Admin: 07/26/23 04:02 Dose: 1.25 mg Documented By: JODI Lidocaine HCl (Lidocaine 1% Local 20 Ml Vial) Confirm Administered Dose 1 ml .ROUTE .STK-MED ONE Stop: 07/26/23 16:48 Last Admin: 07/26/23 17:16 Dose: 1 ml Documented By: MAYRA Lidocaine HCl (Lidocaine 1% Local 20 Ml Vial) Confirm Administered Dose 20 ml .ROUTE .STK-MED ONE Stop: 07/26/23 17:13 Last Admin: 07/26/23 18:11 Dose: Not Given Documented By: TENA Metoprolol Succinate (Metoprolol Succ 50mg Ext Rel Tab) 50 mg PO BID [facility] Stop: 08/25/23 09:44 Last Admin: 07/26/23 20:59 Dose: Not Given Documented By: Admin: 07/26/23 11:23 Dose: 50 mg Documented By: ELEAZAR Metoprolol Tartrate (Metoprolol Tartrate 25 Mg Tab) 25 mg PO ONE ONE Stop: 07/28/23 08:59 Last Admin: 07/28/23 09:23 Dose: 25 mg Documented By: CHAUNCEY Metoprolol Tartrate (Metoprolol Tartrate 25 Mg Tab) 12.5 mg PO QID [facility] Stop: 08/27/23 16:59 Last Admin: 07/28/23 20:10 Dose: 12.5 mg Documented By: Admin: 07/28/23 17:15 Dose: 12.5 mg Documented By: CHAUNCEY Midazolam HCl (Midazolam Hcl 1 Mg/Ml 2ml Vial) Confirm Administered Dose 2 mg .ROUTE .STK-MED ONE Stop: 07/26/23 16:27 Last Admin: 12/08/23 17:16 Dose: Not Given Documented By: TLF Nicardipine HCl (Nicardipine Hcl Inj 2.5 Mg/Ml 10 Ml Amp) Confirm Administered Dose 25 mg .ROUTE .STK-MED ONE Stop: 07/26/23 16:27 Last Admin: 07/26/23 17:15 Dose: Not Given Documented By: TLF Nitroglycerin/Dextrose (Nitroglycerin/D5w 100mcg/Ml 20ml Syr) Confirm Administered Dose 2,000 mcg .ROUTE .STK-MED ONE Stop: 07/26/23 16:27 Last Admin: 07/26/23 17:15 Dose: Not Given Documented By: TLF Norepinephrine Bitartrate (Norepinephrine/D5w 4 Mg/250 Ml) Confirm Administered Dose 4 mg IV .STK-MED ONE Stop: 07/27/23 05:40 Last Admin: 07/27/23 07:05 Dose: Not Given Documented By: CF Potassium Chloride (Potassium Chloride 10 Meq Tabcr) 10 meq PO ONE ONE Stop: 07/26/23 09:36 Last Admin: 07/26/23 10:47 Dose: 10 meq Documented By: ELEAZAR Potassium Phosphate (Pot Phosphate Monobasic W/ Sod Tab) 1 tab PO QID [facility] Stop: 07/30/23 08:59 Last Admin: 07/29/23 19:37 Dose: 1 tab Documented By: Admin: 07/29/23 16:10 Dose: 1 tab Documented By: Admin: 07/29/23 11:47 Dose: 1 tab Documented By: Admin: 07/29/23 07:59 Dose: 1 tab Documented By: CHAUNCEY Spironolactone (Spironolactone 25 Mg Tab) 25 mg PO NOW ONE Stop: 07/29/23 14:13 Last Admin: 07/29/23 16:09 Dose: 25 mg Documented By: CHAUNCEY Vitamin D (Cholecalciferol 1,000 Units 25 Mcg Tab) 1,000 units PO DAILY [facility] Stop: 08/25/23 08:59 Last Admin: 07/26/23 10:46 Dose: 1,000 units Documented By: ELEAZAR Imaging Data Radiologist's Impression: Chest X-Ray 07/26/23 03:09 XR chest 1V portable HISTORY: Chest pain, nonspecific COMPARISON: Chest 01/01/2023. FINDINGS: No pneumothorax. No pleural effusions. There is chronic elevation of the right hemidiaphragm. A few bibasilar linear densities persist and favor scarring or subsegmental atelectasis. No new focal lung consolidations to suggest a pneumonia. No evidence for pulmonary edema. The heart remains unenlarged. Prior cholecystectomy. Advanced degenerative changes within the shoulders. IMPRESSION: 1. No acute process within the chest. 2. Chronic elevation of of the right hemidiaphragm again noted. ACT 112: Negative or not required by law. Electronically signed by: Clyde Jensen M.D. 07/26/2023 7:44 AM Discharge Plan Visit Data Chief Complaint: Shortness of Breath/Dyspnea Stated Complaint: SOB, Chest Pain ED Provider: Marcell Parker Discharge Problem: Acute non-ST elevation myocardial infarction (NSTEMI), Elevated troponin, Chest pain, Anemia Patient Disposition: Admitted As Inpatient Discharge Instructions Interventions: ED Discharge Assessment Last Done: 07/26/23 07:56 Discharge Problem: Chest pain Qualifiers: Chest pain type: unspecified Qualified Code(s): R07.9 - Chest pain, unspecified Anemia Qualifiers: Anemia type: unspecified type Qualified Code(s): D64.9 - Anemia, unspecified
[2023-07-26] MEDS ORDERED: NITROGLYCERIN SL 0.4 MG/TAB TAB SL PRN ×2 (03:20→07:55)
[2023-07-26] MEDS ORDERED: LEVALBUTEROL 1.25 MG/3 ML NEB NEB STA (03:20)
[2023-07-26 03:51] LABS: iSTAT Creatinine 1.3 mg/dl (0.6-1.3); iSTAT Hemoglobin 12.2 g/dl (12.0-16.0); iSTAT Ionized Calcium 1.06 mmol/l (1.12-1.32); iSTAT Potassium 3.8 mmol/L (3.3-5.0)
[2023-07-26 04:25] LABS: Albumin Globulin Ratio 1.1 (0.9-2); Albumin Level 3.3 gm/dl (3.4-5.0); BUN Creatinine Ratio 16.1 (10-20); Bilirubin,Total 1.3 mg/dl (0.2-1.0); Calcium 8.3 mg/dl (8.6-10.3); Creatinine Clr Calc Pharmacy 40.9 ml/min; Est GFR (African American) 50.1 ml/min; Est GFR (Non-African American) 43.2 ml/min; Total Protein 6.3 gm/dl (6.0-8.3)
[2023-07-26 04:26] LABS: Potassium 4.2 mmol/L (3.5-5.1)
[2023-07-26 04:27] LABS: Troponin I High Sensitivity 349.7 pg/ml (0-14)
[2023-07-26] MEDS ORDERED: Heparin IV Adult Wt-Based Low-Dose w/ INITIAL Bolus Protocol IV STA (04:32)
[2023-07-26] MEDS ORDERED: HEPARIN SOD (PORCINE) 1000 UNIT/ML IV ONE ×2 (04:47→05:00)
[2023-07-26 04:52] LABS: Basophils # (auto) 0.02 K/uL (0.00-0.20); Basophils % (auto) 0.4 %; Eosinophils # (auto) 0.03 K/uL (0.00-0.50); Eosinophils % (auto) 0.6 %; Hematocrit (blood only) 34.2 % (37.0-47.0); Hemoglobin 10.8 g/dl (12.0-16.0); Immature Granulocytes # (auto) 0.01 K/uL (0.01-0.20); Immature Granulocytes % (auto) 0.2 %; Lymphocytes # (auto) 0.11 K/uL (1.20-3.40); Lymphocytes % (auto) 2.1 %; Macrocytosis Present; Mean Corpuscular Hemoglobin 36.1 pg (25.0-34.0); Mean Corpuscular Hgb Conc 31.6 g/dL (32.0-36.0); Mean Corpuscular Volume 114.4 fL (80.0-100.0); Mean Platelet Volume 10.8 fL (9.4-12.4); Monocytes # (auto) 0.01 K/uL (0.11-0.59); Monocytes % (auto) 0.2 %; Neutrophils # (auto) 5.06 K/uL (1.40-6.50); Neutrophils % (auto) 96.5 %; Platelet Count 98 K/uL (130-400); Polychromasia 1+; RDW Coefficient of Variation 14.3 % (11.5-14.5); RDW Standard Deviation 59.8 fL (36.4-46.3); Red Blood Count 2.99 M/uL (4.20-5.40); Toxic Vacuolation 1+; White Blood Count 5.24 K/ul (4.8-10.8)
[2023-07-26] MEDS ORDERED: HEPARIN SODIUM/DEXTROSE 25,000 UNITS/500 ML BAG IV SCH ×2 (05:00→06:00)
[2023-07-26] MEDS ORDERED: MAGNESIUM SULFATE / D5W 1 GM/100 ML BAG IV ONE (05:21)
[2023-07-26] MEDS ORDERED: Heparin IV Adult Wt-Based Low-Dose *NO* INITIAL Bolus Protocol IV STA (05:43)
--- NOTE | 2023-07-26 06:13 | History & Physical Report ---
Date of Service July 26, 2023 Assessment & Plan (1) Chest pain: Plan: 83-year-old female with past med history significant for hyperlipidemia, hypothyroidism, asthma mild persistent, uses oxygen 2 L in the nighttime and as needed during daytime, chronic right-sided heart failure, history of CAD, hypertension, long QT interval, history of A-fib, irritable bowel syndrome, GERD, B12 deficiency, CKD stage III, migraines, history of DVT and PE, history of depression, history of CVA, currently wheelchair-bound lives at home with her was brought in because of shortness of breath and chest pain going on for last couple of days. Chest pain and shortness of breath Troponin elevated at 349 and repeat is pending EKG shows left bundle branch block and wide QRS rhythm. Left bundle marlene block seems to be old ER discussed with interventional cardiology and recommended medical management for now Patient is already on Eliquis and per she took last night dose. Will hold Eliquis for now and start on low-dose IV heparin Close monitoring in telemetry floor Follow serial cardiac enzymes and repeat EKG and echocardiogram Cardiology consult Shortness of breath History of asthma and right-sided CHF No obvious wheezing Chest x-ray looks okay Patient is already on Eliquis Currently on BiPAP which will be continued for now Will place on nebs odhene-[id number]-bdegu and as needed and continue home inhalers If needed will consult pulmonary Close monitor History of right-sided CHF Continue home Lasix for now History of asthma Continue montelukast Continue home inhalers Nebs ATC and as needed History of CAD On statin and beta-hayden and Plavix History of CVA On Statin and Plavix and Eliquis History of A-fib On Coreg and Eliquis Currently placed on IV heparin Long QT Avoid QT prolonging drugs Will hold duloxetine for now Follow repeat EKG and repeat labs. CKD stage III Plan creatinine 1.1 Will follow labs Anemia Seems chronic On Vitron-C Hemoglobin 10.8 seems stable History of DVT and PE On Eliquis Currently placed on IV heparin Thrombocytopenia Platelets 98 Platelets were normal at 173 in December 2022 Follow repeat labs Closely monitor while patient is on IV heparin Hypertension On Coreg Will give with holding parameters Hypothyroidism On Synthyroid Will follow TSH History of migraines Will monitor DVT prophylaxis IV heparin. Monitor platelets Disposition telemetry floor Full code History of Present Illness Chief Complaint: Shortness of breath and chest pain Primary Care Provider: Giorgio Salas DO 83-year-old female with past med significant for hyperlipidemia, hypothyroidism, asthma mild persistent, uses oxygen 2 L in the nighttime and as needed during daytime, chronic right-sided heart failure, history of CAD, hypertension, long QT interval, history of A-fib, irritable bowel syndrome, GERD, B12 deficiency, CKD stage III, migraines, history of DVT and PE, history of depression, history of CVA, currently wheelchair-bound lives at home with her was brought in because of shortness of breath and chest pain going on for last couple of days. Patient was hypoxic for EMS and was given neb treatment. Currently on BiPAP. Patient states currently still has chest pain. Has some nausea. Has some abdominal pain. Denies any fever. Has some cough. Currently no headache. Appetite is okay. Normal bowel and bladder movements. states she woke up at 1 AM with complaint of shortness of breath and as was not getting better EMS was called. Patient is somewhat hard of hearing. Past medical history. As mentioned above Past surgical history. Colonoscopy. Injection of lumbosacral spine. Ligation of oviducts. Partial removal of colon. Appendectomy. Cataract surgery. Cholecystectomy. Tonsillectomy and adenoidectomy. Sacroiliac joint injection. Total hysterectomy. Social history. . No smoking. Alcohol rare. No drug use. Family history. Mother had arthritis. Skin cancer. Stroke. Father had lung cancer. Aunt has breast/colon cancer Allergies Allergy/AdvReac Type Severity Reaction Status Date / Time aspirin Allergy Intermediate ITCHING Verified 07/26/23 03:08 Sulfa (Sulfonamide Allergy Unknown PER Verified 07/26/23 03:08 Antibiotics) GMG--HAPPENED IN HOSPITAL Home Medications Medication Instructions Recorded Confirmed Type albuterol sulfate 90 mcg/actuation 2 puff inhalation Q4 PRN Shortness 11/10/18 07/26/23 History aerosol inhaler (Ventolin HFA) Of Breath Or Wheezing carvedilol 12.5 mg tablet 12.5 mg PO BID 11/10/18 07/26/23 History montelukast 10 mg tablet 10 mg PO HS 11/10/18 07/26/23 History pantoprazole 40 mg tablet,delayed 40 mg PO DAILY 07/22/19 07/26/23 History release atorvastatin 20 mg tablet 20 mg PO DAILY 10/11/19 07/26/23 History levothyroxine 50 mcg tablet 50 mcg PO DAILYBB 01/15/20 07/26/23 History albuterol sulfate 2.5 mg/3 mL 2.5 mg inhalation Q4H PRN Wheezing 01/06/21 07/26/23 History (0.083 %) solution for nebulization cholecalciferol (vitamin D3) 25 25 mcg PO DAILY 01/06/21 07/26/23 History mcg (1,000 unit) capsule duloxetine 60 mg capsule,delayed 60 mg PO BID 03/07/22 07/26/23 History release fluticasone 100 mcg-salmeterol 50 1 inh inhalation BID 03/07/22 07/26/23 History mcg/dose blistr powdr for inhalation (Advair Diskus) furosemide 20 mg tablet 20 mg PO QAM 03/07/22 07/26/23 History iron,carbonyl 65 mg-vitamin C 125 1 tab PO DAILY 03/07/22 07/26/23 History mg tablet,delayed release (Vitron-C) apixaban 5 mg tablet (Eliquis) 5 mg PO BID #60 tabs 01/03/23 07/26/23 Rx clopidogrel 75 mg tablet 75 mg PO QAM #30 tabs 01/03/23 07/26/23 Rx acetaminophen 325 mg tablet 650 mg PO Q6H PRN Pain 07/26/23 07/26/23 History (Tylenol) gabapentin 300 mg capsule 300 mg PO TID 07/26/23 07/26/23 History lasmiditan 50 mg tablet (Reyvow) 50 mg PO DIRECTED PRN Migraine 07/26/23 07/26/23 History Headache lidocaine 5 % topical patch 1 patch topical DAILY 07/26/23 07/26/23 History tramadol 50 mg tablet 50 mg PO BID PRN Pain 07/26/23 07/26/23 History Past Med/Surg History Medical History Abnormal urinalysis Acute kidney injury Chronic left hip pain Diffuse myofascial pain syndrome Chronic anticoagulation Opioid dependence History of pulmonary embolism Pulmonary edema History of [place] (myocardial infarction) 2018 - FOLLOWS W/ DR. JACOBSEN On anticoagulant therapy History of endometriosis Osteoporosis Osteoarthritis Migraine Poor historian History of DVT (deep vein thrombosis) RLE - 20 YEARS AGO FOLLOWING INJURY On home oxygen therapy 2 LPM 02 QHS Sleep apnea NO DEVICE Hypertension Hypothyroidism Asthma USES PRN INH 1 X WK Pulmonary embolism (10/10/12) 20 YEARS AGO AFTER INJURY 30 YEARS AGO - POST OP CHOLEYCYSTECTOMY ON WARFARIN Atrial flutter PT COULD NOT CONFIRM Surgical History History of cardiac cath 2018 - [place] - NO STENTS History of left knee surgery History of tubal ligation History of section History of total abdominal hysterectomy and bilateral salpingo-oophorectomy History of appendectomy History of cholecystectomy History of cataract surgery History of tonsillectomy History of esophagogastroduodenoscopy (EGD) History of colonoscopy Family History Father , age 51 of cancer Esophageal cancer Lung cancer Mother , age 103 No problems noted. 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 Lungs- clear to auscultation , no wheezing or crackles heard. Heart- regular rate and rhythm; no murmur, no gallop. Abdomen- normal bowel sounds, soft, nontender, no distension. Extremities- no pretibial edema, no erythema seen. Neuro- alert, oriented ; EOMI; no facial palsy; no dysarthria; obeys commands. Results & Data Results & Data Vital Signs (Past 12 Hours) Vital Signs Temp Pulse Pulse Resp BP Pulse Ox O2 Del Method 07/26/23 04:09 112 H 17 100 07/26/23 04:03 112 H 18 95 BiPAP 07/26/23 04:00 112 H 26 H 94/62 L 92 07/26/23 03:30 115 H 21 92 07/26/23 03:16 118 H 07/26/23 03:09 Nasal Cannula 07/26/23 03:06 94 07/26/23 03:04 Nasal Cannula 07/26/23 03:04 37 C 118 H 26 H 149/81 H 93 Nasal Cannula O2 Flow Rate FiO2 07/26/23 04:09 40 07/26/23 04:03 40 07/26/23 04:00 07/26/23 03:30 07/26/23 03:16 07/26/23 03:09 07/26/23 03:06 07/26/23 03:04 07/26/23 03:04 3 Diagnostic Findings Laboratory Results WBC 5.24 K/ul (4.8-10.8) 07/26/23 03:24 RBC 2.99 M/uL (4.20-5.40) L 07/26/23 03:24 Hgb 10.8 g/dl (12.0-16.0) L 07/26/23 03:24 POC Hgb 12.2 g/dl (12.0-16.0) 07/26/23 03:37 Hct 34.2 % (37.0-47.0) L 07/26/23 03:24 POC Hct 36 % (37-47) L 07/26/23 03:37 MCV 114.4 fL (80.0-100.0) H 07/26/23 03:24 MCH 36.1 pg (25.0-34.0) H 07/26/23 03:24 MCHC 31.6 g/dL (32.0-36.0) L 07/26/23 03:24 RDW Std Deviation 59.8 fL (36.4-46.3) H 07/26/23 03:24 RDW Coeff of Vijay 14.3 % (11.5-14.5) 07/26/23 03:24 Plt Count 98 K/uL (130-400) L 07/26/23 03:24 MPV 10.8 fL (9.4-12.4) 07/26/23 03:24 Immature Gran % (Auto) 0.2 % 07/26/23 03:24 Neut % (Auto) 96.5 % 07/26/23 03:24 Lymph % (Auto) 2.1 % 07/26/23 03:24 [place] % (Auto) 0.2 % 07/26/23 03:24 Eos % (Auto) 0.6 % 07/26/23 03:24 Baso % (Auto) 0.4 % 07/26/23 03:24 Neut # (Auto) 5.06 K/uL (1.40-6.50) 07/26/23 03:24 Lymph # (Auto) 0.11 K/uL (1.20-3.40) L 07/26/23 03:24 [place] # (Auto) 0.01 K/uL (0.11-0.59) L 07/26/23 03:24 Eos # (Auto) 0.03 K/uL (0.00-0.50) 07/26/23 03:24 Baso # (Auto) 0.02 K/uL (0.00-0.20) 07/26/23 03:24 Immature Gran # (Auto) 0.01 K/uL (0.01-0.20) 07/26/23 03:24 Toxic Vacuolation 1+ 07/26/23 03:24 Polychromasia 1+ 07/26/23 03:24 Macrocytosis Present 07/26/23 03:24 POC Sodium 140 mmol/L (135-144) 07/26/23 03:37 Sodium 142 mmol/L (136-145) 07/26/23 03:24 POC Potassium 3.8 mmol/L (3.3-5.0) 07/26/23 03:37 Potassium 4.2 mmol/L (3.5-5.1) 07/26/23 03:24 POC Chloride 102 mmol/L (101-112) 07/26/23 03:37 Chloride 104 mmol/L (98-107) 07/26/23 03:24 Carbon Dioxide 31 mmol/L (21-32) 07/26/23 03:24 POC Total CO2 30 mmol/L (24-31) 07/26/23 03:37 Anion Gap 7 (3-11) 07/26/23 03:24 POC Anion Gap 13.0 mmol/L (16-25) L 07/26/23 03:37 POC BUN 20 mg/dl (7-18) H 07/26/23 03:37 BUN 19 mg/dl (6-23) 07/26/23 03:24 Creatinine 1.18 mg/dl (0.6-1.2) 07/26/23 03:24 POC Creatinine 1.3 mg/dl (0.6-1.3) 07/26/23 03:37 Est Cr Clr Drug Dosing 40.9 ml/min 07/26/23 03:24 Est GFR ( Amer) 50.1 ml/min 07/26/23 03:24 Est GFR (Non-Af Amer) 43.2 ml/min 07/26/23 03:24 BUN/Creatinine Ratio 16.1 (10-20) 07/26/23 03:24 Glucose 78 mg/dl (70-99(Fasting)) 07/26/23 03:24 POC Glucose (other) 75 mg/dl (70-99) 07/26/23 03:37 Calcium 8.3 mg/dl (8.6-10.3) L 07/26/23 03:24 POC Ioniz Calcium [place] 1.06 mmol/l (1.12-1.32) L 07/26/23 03:37 Total Bilirubin 1.3 mg/dl (0.2-1.0) H 07/26/23 03:24 AST 27 U/L (13-39) 07/26/23 03:24 ALT 10 U/L (7-52) 07/26/23 03:24 Alkaline Phosphatase 65 U/L (34-104) 07/26/23 03:24 Troponin I High Sens 349.7 pg/ml (0-14) H* 07/26/23 03:24 Total Protein 6.3 gm/dl (6.0-8.3) 07/26/23 03:24 Albumin 3.3 gm/dl (3.4-5.0) L 07/26/23 03:24 Globulin 3.0 gm/dl (2.5-4.0) 07/26/23 03:24 Albumin/Globulin Ratio 1.1 (0.9-2) 07/26/23 03:24 Lipase 4 U/L (11-82) L 07/26/23 03:24 ECG Additional Comments: ECG. Weight QRS rhythm. Rate of 119. left bundle branch block Code Status & VTE Plan VTE Prophylaxis Plan VTE Prophylaxis will be ordered: Yes
[2023-07-26 06:19] LABS: INR 1.1 (0.9-1.1); Partial Thromboplastin Ratio 0.9; Partial Thromboplastin Time 26 Seconds (21-31); Prothrombin Time 12.3 Seconds (9.0-12.0)
--- OUTSIDE RECORDS SUMMARY | 2023-07-26 06:25 | External Medical Summary | Summary of Care ---
Author Name Unknown Organization [facility] Address [address] [facility] [place] [address] Phone [phone] Care Team Providers Care Testing Projects Administrator Name Role Phone IsidoroGiorgio ontiveros Primary Care Provider [phone] Reason for Visit * Reason Onset Date Comments Medication Administration Prolia Medication Administration 07/22/2023 Prolia * Precert (Within 30 days (routine)) - Authorized Specialty Diagnoses / Procedures Referred By Contac t Referred To Contact Rheumatology Diagnoses Age-related osteoporosis without current pathological fracture Procedures DENOSUMAB 1MG, [place] [address] [place] [id number] Referral ID Status Reason Start Date Expiration Date V isits Requested Visits Authorized [id number] Authorized Precert 04/25/2022 08/18/[phone] Encounter Details Date Type Department Care Team (Late st Contact Info) Description 07/22/2023 2:30 PM EST Nurse Only Rheumatology [facility] [address] [place] [address] Pf, Nurse Rheum [address] [place] [address] Medication Administration (Prolia); Medica... Allergies Active Allergy Reactions Criticality Noted Date Comments Salicylates Itching 11/27/1999 Aspirin Sulfa Antibiotics Other (Please comment) 1998 Unsure, happened during a hospital admission. documented as of this encounter (statuses as of 07/22/2023) Medications Medication Sig Dispensed Refills Start Date End Date Status OXYGENIndications:Hy poxemia,Body mass index 40 and over, adult,Organic sleep disorder Use 2 Liters per minute via nasal cannula while sleeping 1 each 99 12/22/2009 Active VITAMIN D 1000 UNITS PO CAPSIndications:Teodora le osteoporosis One capsule daily 30 Cap 5 01/04/2014 Active acetaminophen (TYLENOL) 325 MG Tablet Take 2 Tablets by mouth every 6 hours as needed for Pain. 0 Active Vitron-C 65-125 MG Oral Tablet (Iron-Vitamin C) Take by mouth 1 Tablet in the morning. 30 Tablet 0 03/02/2022 Active Carvedilol 12.5 MG Oral Tablet (Coreg)Indications:H TN, goal below 130/80,Unspecified atrial fibrillation (HCC) TAKE ONE TABLET BY MOUTH TWICE DAILY 180 Tablet 3 08/27/2022 Active Furosemide 20 MG Oral Tablet (Lasix) TAKE ONE TABLET BY MOUTH IN THE MORNING 90 Tablet 3 08/27/2022 Active Atorvastatin Calcium 20 MG Oral Tablet (Lipitor) TAKE ONE TABLET BY MOUTH DAILY 90 Tablet 3 09/05/2022 Active Albuterol Sulfate HFA 108 (90 Base) MCG/ACT Inhalation Aerosol SolutionIndications: Mild persistent asthma without complication INHALE TWO PUFFS BY MOUTH EVERY FOUR HOURS NEEDED FOR WHEEZING 18 g 3 10/04/2022 Active Fluticasone-Salmeter ol 100-50 MCG/ACT Inhalation Aerosol Powder Breath Activated (Advair Diskus) Inhale 1 Puff by mouth in the morning and 1 Puff before bedtime. 60 Each 11 10/03/2022 Active Lasmiditan Succinate 50 MG Oral Tablet (Reyvow) Take one at onset of migraine. Max 1 dose in 24 hours 10 Tablet 5 01/24/2023 Active Nystatin 567361 UNIT/GM External Cream Apply topically to affected area 2 times a day. To affacted area for two weeks. 15 g 2 01/25/2023 Active Levothyroxine Sodium 50 MCG Oral Tablet (Levoxyl) TAKE ONE TABLET BY MOUTH IN THE MORNING AT LEAST 30 MINUTES PRIOR TO BREAKFAST OR OTHER MEDICATIONS 90 Tablet 1 03/14/2023 Active Pantoprazole Sodium 40 MG Oral Tablet Delayed Release (Protonix) TAKE ONE TABLET BY MOUTH DAILY 90 Tablet 1 03/14/2023 Active DULoxetine HCl 60 MG Oral Capsule Delayed Release Particles (Cymbalta) Take 1 Capsule by mouth in the morning and 1 Capsule before bedtime. 60 Capsule 5 03/19/2023 Active Gabapentin 300 MG Oral Capsule (Neurontin) Take 1 Capsule by mouth in the morning and 1 Capsule at noon and 1 Capsule before bedtime. 90 Capsule 5 03/19/2023 Active Zoster Vac Recomb Adjuvanted 50 MCG/0.5ML Intramuscular Suspension Reconstituted (Shingrix)Indication s:Need for vaccination for zoster Inject 0.5 mL into a large muscle now and repeat dose in 60 to 180 days 1 Each 0 04/24/2023 Active Albuterol Sulfate (2.5 MG/3ML) 0.083% Inhalation Nebulization Solution (Proventil)Indicatio ns:Mild persistent asthma without complication Inhale 1 Vial via nebulizer every 4 hours as needed for Wheezing. 120 mL 5 06/06/2023 Active Montelukast Sodium 10 MG Oral Tablet (Singulair)Indicatio ns:Seasonal allergic rhinitis, unspecified trigger TAKE 1 TABLET BY MOUTH EVERY MORNING 90 Tablet 3 06/06/2023 Active predniSONE 20 MG Oral Tablet (Deltasone)Indicatio ns:Rhonchi at both lung bases 1 tab 3 times a day for 3 days, then 1 tab 2 times a day for 3 days, then 1 tab daily for 3 days 18 Tablet 0 06/07/2023 Active Eliquis 5 MG Oral TabletIndications:Hi story of pulmonary embolism Take 1 tablet by mouth in the morning, and 1 tablet in the evening. 180 Tablet 2 07/10/2023 Active Clopidogrel Bisulfate 75 MG Oral Tablet (pLAVix) TAKE 1 TABLET BY MOUTH EVERY MORNING 90 Tablet 2 07/10/2023 Active traMADol HCl 50 MG Oral Tablet (Ultram)Indications: MEDICATION USE AGREEMENT,Controlled substance agreement signed,Primary osteoarthritis of both shoulders Take 1 Tablet by mouth 2 times a day as needed for Pain, Moderate. 60 Tablet 0 07/15/2023 Active Lidocaine 5 % External Patch (Lidoderm)Indication s:DDD (degenerative disc disease), lumbar,Primary localized osteoarthrosis of lower leg, unspecified laterality,Lumbar radiculopathy,Primar y osteoarthritis of both knees Place 1 Patch over 12 hours topically on the skin daily. 30 Patch 0 07/15/2023 Active Hospital, Clinic, or Other Facility Administered Medication Ordered Dose Route Frequency Start Date End Date Status Denosumab (Prolia) subcut inj 60 mgIndications:Senile osteoporosis 60 mg SC ONCE 07/22/2023 07/22/2023 Ended documented as of this encounter (statuses as of 07/22/2023) Active Problems Problem Noted Date Diagnosed Date Chronic heart failure with preserved ejection fr action 11/26/2022 Food insecurity 04/30/2022 Overview: Per [facility] Protocol Chronic right-sided heart failure 04/12/2022 Recurrent major depressive disorder, in partial remission 10/17/2021 Chronic kidney disease, stage 3a 12/27/2020 Overview: Per CKD protocol B12 deficiency 11/08/2020 Major depressive disorder, recurrent, unspecifie d 09/30/2020 Lumbar radiculopathy 09/30/2020 Hypertensive kidney disease with stage 3a chronic kidney disease 06/27/2020 Overview: Per CKD protocol Unspecified atrial fibrillation 04/01/2019 Long QT interval 02/13/2019 DDD (degenerative disc disease), lumbar 05/20/20 18 Impingement syndrome of both shoulders 8 MEDICATION USE AGREEMENT 10/29/2017 Coronary artery disease invo lving upper [place] coronary artery of upper [place] heart without angina pectoris 10/28/2017 HTN, goal below 130/80 10/28/2017 Trochanteric bursitis of both hips 09/03/2017 Body mass index (BMI) of 40.0 to 44.9 in adult 1 Overview: Per Obesity protocol #1 Controlled substance agreement signed 04/18/2017 Osteoarthrosis, localized, primary, involving lo wer leg 11/13/2016 Overview: ICD-10 update of inactive term Primary osteoarthritis of both knees 03/07/2015 Osteoarthrosis involving shoulder region 014 Enthesopathy of hip 10/19/2013 History of positive PPD, untreated 08/10/2013 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 Anticoagulation management encounter 02/23/2002 History of DVT (deep vein thrombosis) 02/23/2002 History of pulmonary embolism 02/23/2002 documented as of this encounter (statuses as of 07/22/2023) Resolved Problems Problem Noted Date Diagnosed Date Resolved Date Left heart failure with pres erved left ventricular function 04/12/2022 10/12/2022 Protein-calorie malnutrition 03/05/2022 10/12/2022 Narcotic dependence 10/17/2021 10/12/19 23 Type 2 diabetes mellitus wit h hemoglobin A1c goal of less than 8.0% 10/17/2021 10/17/2021 Chronic kidney disease, stage 3a 12/27/2020 02/01/2021 Overview: Per CKD protocol Need for prophylactic vaccin ation and inoculation against influenza 05/26/2020 06/28/2020 Acute deep vein thrombosis ( DVT) of lower extremity 03/28/2020 10/12/2022 Morbid obesity due to excess calories 10/22/2019 09/12/2021 UTI (urinary tract infection) 10/12/2019 06/28/2020 Hip hematoma, left 10/12/2019 1 Scalp hematoma 10/12/2019 02/01/2021 Fall from standing 10/12/2019 1 Hypokalemia 10/12/2019 02/01/2021 Concussion without loss of consciousness 10/12/2019 02/01/2021 Morbid obesity 12/24/2018 02/26/2019 Sacroiliitis 11/24/2018 10/12/2022 Hypertensive kidney disease with chronic kidney disease stage III 11/19/2018 06/30/2020 Overview: Per CKD protocol Deep vein thrombosis (DVT) 10/31/2018 0 11/24/2018 Deep vein thrombosis (DVT) 10/08/2017 0 04/08/2018 Sacroiliitis 06/26/2016 05/16/2017 History of DVT (deep vein thrombosis) 09/28/2015 09/28/2015 DVT (deep venous thrombosis) 03/31/2015 09/28/2015 BMI 45.0-49.9, adult 12/21/2014 017 Renal cyst, right 06/24/2013 06/28/2020 History of pulmonary embolus (PE) 02/11/2013 09/28/2015 Depression, acute 09/24/2012 05/16/2017 Opioid dependence on agonist therapy 02/28/2011 05/16/2017 Diverticulitis of colon 04/27/201006/19 Chronic kidney disease, stage 3 unspecified 03/09/2010 12/29/2020 Overview: Per CKD Protocol, #1 Asthma with severity to be determined 05/24/2008 07/19/2011 Overview: ICD-10 update of inactive term Hearing loss 01/05/2003 06/28/2020 GENERAL OSTEOARTHROSIS 08/07/200203/28 OBESITY, UNSPECIFIED 06/13/2001 010 Overview: Per Obesity Taxonomy Varicose veins of lower extremity with ulcer 1 05/16/2017 HYPERTENSION NOS 11/14/2000 07/12/2009 Overview: Modified per HTN protocol #16. documented as of this encounter (statuses as of 07/22/2023) Immunizations Name Administration Dates Next Due COVID-19 mRNA, LNP-s, No Pre serve, 2-Dose Series (Pfizer) 08/29/2021,12/30/2020,12/07/2020 H1N1 2009 Influenza, IM 10/17/2009 PPD 02/10/2021,01/31/2021 Pneumococcal Conjugate Vacc, 13 Valent (Prevnar) 09/26/2015 Pneumococcal Polysaccharide PPV23 (Pneumovax) 06/23/2008 SEASONAL INFLUENZA, PF, 6 M & Above, IM , (FLULAVAL or FLUZONE) 06/10/2018,05/14/2017 Season Influenza, Quad, PF, Adjuvanted, 65+ Yrs, IM (FLUAD) 05/26/2020 Seasonal Influenza Virus Vac cine, Unspecified Formulation 09/11/2021,05/26/2020,06/09/2019,06/10,05/14/2017,07/02/2016,06/09/2015 ,04/29/2014,05/14/2013,06/06/2012,05/20,06/05/2010,10/17/2009, 8,06/29/2006,07/29/2000 Seasonal Influenza, Quadriva lent Hd (Fluzone Hd) 04/24/2023,05/01/2022,09/11/2021 Seasonal Influenza, Quadriva lent, No Preserve, IM 07/02/2016,06/09/2015 Seasonal Influenza, Split, I IV3, With Preserve, Inj 04/29/2014,05/14/2013,06/06/2012,06/13,06/05/2010,10/17/2009,06/23/2008 ,06/29/2006 Seasonal Influenza, Trivalen t, Adjuvanted, 65+ yrs 06/09/2019 TDAP (age 10 and older)(Boostrix) 04/24/2023 TDAP (age 11 and older)(Adacel) 06/13/2011 Varicella Zoster Vaccine (Adult) 12/21/2014 Zoster Vaccine Recombinant (Shingrix) 04/24/2023 documented as of this encounter Social History Tobacco Use Types Packs/Day Years Used Date Smoking Tobacco: Never Smokeless Tobacco: Never Alcohol Use Standard Drinks/Week Comments Not Currently 0 (1 standard drink = 0.6 oz pur e alcohol) rare PHQ-2 Answer Date Recorded PHQ Adult Total Score 6 04/09/2022 Hunger Vital Sign Answer Date Recorded Within the past 12 months, y ou worried that your food would run out before you got the money to buy more. Never true 01/09/20 23 Within the past 12 months, t he food you bought just didn't last and you didn't have money to get more. Never true 01/08/2023 Sex and Gender Information Value Date Recorded Sex Assigned at Female 06/09/2019 2:27 PM EDT Gender Identity Female 06/09/2019 2:27 PM EDT Sexual Orientation Straight 04/09/2022 10 :03 AM EDT Job Start Date Occupation Industry Not on file Not on file Not on file documented as of this encounter Functional Status Functional Status Response Date of Assess ment Are you deaf or do you have serious difficulty h earing? No 10/11/2019 Are you blind or do you have serious difficulty seeing, even when wearing glasses? No 10/11/2019 Do you have serious difficul ty walking or climbing stairs? (5 years old or older) No-2years 10/11/2019 Do you have difficulty dress ing or bathing? (5 years old or older) No 10/11/2019 Because of a physical, menta l, or emotional condition, do you have difficulty doing errands alone such as visiting a doctor s office or shopping? (15 years old or older) Yes 10/11/19 20 Cognitive Status Response Date of Assessm ent Because of a physical, menta l, or emotional condition, do you have serious difficulty concentrating, remembering, or making decisions? (5 years old or older) No 10/11/2019 documented as of this encounter Progress Notes * Karoline Garcia LPN - 07/22/2023 2:40 PM EST Anh Breaux presents today for administration of Prolia. She understands the benefits and risks of this treatment. An educational pamphlet was given to the patient. Prolia 60 mg was administered subcutaneously. The patient tolerated the procedure without problems. She will return in 6 months for the next injection and evaluation. Karoline Garcia LPN documented in this encounter Nursing Notes * Karoline Garcia LPN - 07/22/2023 2:40 PM EST Chief Complaint Patient presents with Medication Administration Prolia documented in this encounter Plan of Treatment Upcoming Encounters Date Type Department Care Team (Late st Contact Info) Description 07/23/2023 1:30 PM EST Office Visit Cardiology, [facility] [address] [place] [address] Ning King PA-C [address] [place] [address] 07/29/2023 6:10 PM EST Pharmacy Pharmacy, [facility] [address] [facility] [place] [address] [email or web address] [address] [facility] [place] [address] 07/30/2023 2:00 PM EST Office Visit Rheumatology [address] [place] [address] Anton Zimmerman CRNP [address] [place] [address] [place] [address] 08/08/2023 1:30 PM EST Office Visit Audiology [facility] [address] [facility] [place] [address] Merari Vogel Au.D. [address] [place] [address] 10/07/2023 2:00 PM EST Office Visit Rheumatology [address] [place] [address] Alonso Dwyer MD [address] [place] [address] [place] [address] 11/22/2023 3:00 PM EDT Office Visit Family Practice [facility] [place] [address] [place] [address] Giorgio Salas, DO [address] [facility] [place] [address] 02/04/2024 1:20 PM EDT Office Visit Rheumatology [facility] [address] [place] [address] Alonso Dwyer MD [address] [place] [address] Scheduled Procedures Name Priority Associated Diagnoses Date/Ti me COLONOSCOPY FLEXIBLE PROXIMAL DIAGNOSTIC Recall History of colon polyps Health Maintenance Due Date Last Done Comments Hepatitis B (1 of 3 - Risk 3-dose series) 2002 Albumin/Creatinine Ratio 09/29/2016 016, 09/24/2012, 06/13/2011 Depression Screening 04/09/2023 04/09/2022 COVID-19 Vaccine ( season) 2023 08/29/2021, 12/30/2020, 12/07/2020 Zoster Vaccines (3 of 3) 06/19/2023 04/24/2023, 12/2014 CKD PHOS USE SMARTSET 84281 10/12/202309/20, 10/12/2019, 08/18/2018, Additional history exists TSH 01/04/2024 01/03/2023, 03/20, 01/17/2021, Additional history exists GFR 01/18/2024 07/19/2023, 03/2023, 01/03/2023, Additional history exists CKD HGB USE SMARTSET 20229 01/25/202401/24, 01/24/2023, 01/03/2023, Additional history exists DXA Scan 04/16/2029 04/16/2022, 02/16, 12/07/2013, Additional history exists DTaP,Tdap,and Td Vaccines (3 - Td or Tdap) 04/24/2033 04/24/2023, 06/13/2011, 11/27/1999 COLONOSCOPY-EVERY 5 YRS AGES 18-100 Discontinued 03/03/2015, 06/27/2009, 03/20/2004 Pneumococcal Vaccine: 65+ Years Completed 09/26/2015, 06/23/2008 Influenza Vaccine (FLU shot) Completed 04/24/2023, 05/01/2022, 09/11/2021, Additional history exists GARDASIL-HPV IMMUNIZATION SERIES Aged Out No longer eligible based on patient's age to complete this topic MENINGOCOCCAL (MENACTRA/MENVEO) Aged Out No longer eligible based on patient's age to complete this topic documented as of this encounter Medical Devices Not on filedocumented as of this encounter Visit Diagnoses Diagnosis Senile osteoporosis- Primary documented in this encounter Administered Medications Inactive Administered Medications - up to 3 most recent administrations Medication Order MAR Action Action Date Dose Rate Site Denosumab (Prolia) subcut inj 60 mg 60 mg, Subcutaneous, ONCE, On 07/22/23 at 1430, For 1 dose Given 07/22/2023 2:43 PM EST 60 mg Arm L eft Upper documented in this encounter Advance Directives Documents on File Type Date Recorded Patient Bundle Cutter Expl anation Advance Directives and Living Will 05/01/2022 ADVANCE DIRECTIVE / LIVING WILL Power of Sr. Strategic Sourcing Manager 05/01/2022 POWER OF A TTORNEY Latest Code Status on File Code Status Date Activated Date Inactivated Comments Full Code 10/11/2019 7:48 PM 10/12/2019 8:11 PM This order reflects the patients wishes and were consensually agreed upon. Question Answer Comments Discussion of Advance Directives occurred with: Not Discussed Does the patient have a Living Will? No Does the patient have Health Care Power of Sr. Strategic Sourcing Manager? No Care Teams Testing Projects Administrator Relationship Specialty Start Date End Date Giorgio Salas DO [address] [place] [address] PCP - General Family Medicine 02/15/17 documented as of this encounter
--- OUTSIDE RECORDS SUMMARY | 2023-07-26 06:25 | External Medical Summary ---
Author Name Unknown Address Unknown Organization [id number]:[facility] [place] [address] Laboratory Report Ordering Provider Test Date Status JOSE MANUEL CHAUDHRY 07/19/2023 11:37:42 Final Observation Date Value Abnormality Reference (Units ) Status BUN 07/19/2023 11:37:42 15 6-20 (mg/dL) Final Creatinine 07/19/2023 11:37:42 1.0 0.5-1.0 (mg/dL) Final Glomerular filtration rate/1.73 sq M.predicted [Volume Rate/Area] in Serum, Plasma or Blood by Creatinine-based formula (CKD-EPI) 07/19/2023 11:37:42 54 Below low normal >=60 (mL/min) Final eGFR is calculated based on the CKD-EPI 2020 equation SODIUM 07/19/2023 11:37:42 142 135-146 (m mol/L) Final Potassium 07/19/2023 11:37:42 3.4 Below low normal 3.5 -5.1 (mmol/L) Final Cl 07/19/2023 11:37:42 103 98-107 (mm ol/L) Final CO2 07/19/2023 11:37:42 32 22-32 (mmo l/L) Final Anion gap 07/19/2023 11:37:42 7 7-15 (mmol /L) Final Glucose 07/19/2023 11:37:42 103 70-120 (mg /dL) Final Calcium 07/19/2023 11:37:42 8.8 8.4-10.2 ( mg/dL) Final Performing Location [facility] [place] [address]
--- OUTSIDE RECORDS SUMMARY | 2023-07-26 06:25 | External Medical Summary | Summary of Care ---
Author Name Unknown Organization [facility] Address [address] [place] [address] Phone [phone] Care Team Providers Care Life Skills Educator Name Role Phone IsidoroGiorgio ontiveros Primary Care Provider [phone] Reason for Visit * Reason Comments Outpatient Testing Encounter Details Date Type Department Care Team (Late st Contact Info) Description 07/19/2023 11:30 AM EST Laboratory Laboratory [facility] [address] [place] [address] [facility] [address] [place] [address] Senile osteoporosis Allergies Active Allergy Reactions Criticality Noted Date Comments Salicylates Itching 11/27/1999 Aspirin Sulfa Antibiotics Other (Please comment) 1998 Unsure, happened during a hospital admission. documented as of this encounter (statuses as of 07/19/2023) Medications Medication Sig Dispensed Refills Start Date [...] hours 10 Tablet 5 01/24/2023 Active Nystatin 451654 UNIT/GM External Cream Apply topically to affected [...] ONE TABLET BY MOUTH DAILY 90 Tablet 03/14/2023 Active DULoxetine HCl 60 MG Oral Capsule Delayed Release Particles (Cymbalta) Take 1 Capsule by mouth in the morning and 1 Capsule before bedtime. 60 Capsule 5 03/19/2023 Active Gabapentin 300 MG Oral Capsule (Neurontin) Take 1 Capsule by mouth in the morning and 1 Capsule at noon and 1 Capsule before bedtime. 90 Capsule 03/19/2023 Active Zoster Vac Recomb Adjuvanted 50 [...] skin daily. 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 Anticoagulation management encounter 02/23/2002 History of DVT (deep vein thrombosis) 02/23/2002 History of pulmonary embolism 02/23/2002 documented as of this encounter (statuses as of 07/19/2023) Resolved Problems Problem Noted Date Diagnosed Date Resolved Date Left heart failure with pres erved left ventricular function 04/12/2022 10/12/2022 Protein-calorie malnutrition 03/05/2022 10/12/2022 Narcotic dependence 10/17/2021 10/12/19 Type 2 diabetes mellitus wit h hemoglobin [...] as of this encounter (statuses as of 07/19/2023) Immunizations Name Administration Dates Next Due COVID-19 mRNA, LNP-s, No Pre serve, 2-Dose Series (Maven7) 08/29/2021,12/30/2020,12/07/2020 H1N1 2009 Influenza, IM 10/17/2009 PPD [...] No 10/11/2019 documented as of this encounter Plan of Treatment Upcoming Encounters Date Type Department Care Team (Late st Contact Info) Description 07/22/2023 2:30 PM EST Nurse Only Rheumatology [place] [id number] [facility] [place] [address] Pf, Nurse Rheum [address] [place] [address] [place] [address] 07/23/2023 1:30 PM EST Office Visit Cardiology, [facility] [address] [place] [address] Ning King PA-C 132 [facility] [place] [address] 07/29/2023 6:10 PM EST Pharmacy Pharmacy, [facility] [address] [place] [address] [facility] [address] [address] 08/08/2023 1:30 PM EST Office Visit Audiology [facility] 132 [facility] [place] [address] Merari Vogel Au.D. [address] [place] [address] 11/22/2023 3:00 PM EDT Office Visit Family Practice [facility] [place] [address] [place] [address] Giorgio Salas, 200 [facility] [place] [address] Pending Results Name Type Priority Associated Diagnoses Date /Time BASIC METABOLIC PANEL Lab Routine Senile osteoporosis 07/19/2023 11:37 AM EST 25-HYDROXY VITAMIN D Lab Routine Senile osteoporosis 07/19/2023 11:37 AM EST Scheduled Procedures Name Priority Associated Diagnoses Date/Ti me COLONOSCOPY FLEXIBLE PROXIMAL DIAGNOSTIC Recall History of colon polyps Health Maintenance Due Date Last Done Comments Hepatitis B (1 of 3 - Risk 3-dose series) 2002 Albumin/Creatinine Ratio 09/29/2016 016, 09/24/2012, 06/13/2011 Depression Screening 04/09/2023 04/09/2022 COVID-19 Vaccine ( season) 2023 08/29/2021, 12/30/2020, 12/07/2020 Zoster Vaccines (3 of 3) 06/19/2023 04/24/2023, 05/12/2014 GFR 07/26/2023 01/24/2023, 12/17, 11/29/2022, Additional history exists CKD PHOS USE SMARTSET 57104 10/12/202309/20, 10/12/2019, 08/18/2018, Additional history exists TSH 01/04/2024 01/03/2023, 03/20, 01/17/2021, Additional history exists CKD HGB USE SMARTSET 37582 01/25/202401/24, 01/24/2023, 01/03/2023, Additional history exists DXA [...] of this encounter Visit Diagnoses Diagnosis Senile osteoporosis documented in this encounter Advance Directives Documents on File Type Date Recorded Patient Heart Surgeon Expl anation Advance Directives and Living Will 05/01/2022 ADVANCE DIRECTIVE / LIVING WILL Power of Jig Hand 05/01/2022 POWER OF A TTORNEY Latest Code Status on File Code Status Date Activated Date Inactivated Comments Full Code 10/11/2019 7:48 PM 10/12/2019 8:11 PM This order reflects the patients wishes and were consensually agreed upon. Question Answer Comments Discussion of Advance Directives occurred with: Not Discussed Does the patient have a Living Will? No Does the patient have Health Care Power of Jig Hand? No Care Teams Life Skills Educator Relationship Specialty Start Date End Date Giorgio Salas DO [address] [place] [address] PCP - General Family Medicine 02/15/17 documented as of this encounter
--- OUTSIDE RECORDS SUMMARY | 2023-07-26 06:25 | External Medical Summary ---
Author Name Unknown Address Unknown Organization K01:LABORATORY [facility] - [facility] [address] [place] [id number] Laboratory Report Ordering Provider Test Date Status JOSE MANUEL CHAUDHRY 07/19/2023 11:37:42 Final Deficient: <20 ng/mL
Ins ufficient: 20-29 ng/mL
Recommended/Optimum:30-50 ng/mL

Vitamin D intoxication is rare. If suspicious of Vitamin D toxicity, evaluation of serum Calcium and PTH is recommended. Observation Date Value Abnormality Reference (Units ) Status 25-OH Vitamin D total 07/19/2023 11:37:42 66 >19 (ng/mL) Final Performing Location LABORATORY [facility] - [address] [place] [address]
--- OUTSIDE RECORDS SUMMARY | 2023-07-26 06:25 | External Medical Summary | Summary of Care ---
Author Name Unknown Organization [facility] Address [address] [facility] [place] [address] Phone [phone] Care Team Providers Care Organ Pipe Finisher Name Role Phone IsidoroGiorgio ontiveros Primary Care Provider [phone] Reason for Visit * Reason Onset Date Comments Order Request 07/18/2023 Encounter Details Date Type Department Care Team (Late st Contact Info) Description 07/18/2023 Telephone Rheumatology [facility] [address] [address] 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 documented as of this encounter (statuses as of 07/19/2023) Immunizations Name Administration Dates Next Due COVID-19 mRNA, LNP-s, No Pre serve, 2-Dose Series (RED INNOVA) 08/29/2021,12/30/2020,12/07/2020 H1N1 2009 Influenza, IM 10/17/2009 PPD [...] No 10/11/2019 documented as of this encounter Miscellaneous Notes * Telephone Encounter - Radha Garcia LPN - 07/19/2023 9:19 AM EST Pt aware * Telephone Encounter - Alonso Dwyer MD - 07/18/2023 1:43 PM EST Needs updated labs (marisel vit D ) for prolia documented in this encounter Plan of Treatment Upcoming Encounters Date Type Department Care Team (Late st Contact Info) Description 07/22/2023 2:30 PM EST Nurse Only Rheumatology [facility] [address] [place] [address] Pf, Nurse Rheum [address] [place] [address] 07/23/2023 1:30 PM EST Office Visit Cardiology, [facility] [address] [place] [address] Ning King PA-C [address] [place] [address] 07/29/2023 6:10 PM EST Pharmacy Pharmacy, [facility] [place] [address] [facility] 132 [facility] [place] [address] 08/08/2023 1:30 PM EST Office Visit Audiology [facility] [place] [address] Merari Vogel Au.D. [address] [place] [address] 11/22/2023 3:00 PM EDT Office Visit Family Practice [facility] [address] [place] [address] Giorgio Salas DO [address] [facility] [place] [address] Scheduled Orders Name Type Priority Associated Diagnoses Orde r Schedule BASIC METABOLIC PANEL Lab Routine Senile osteoporosis Expected: 07/18/2023 (Approximate), Expires: 10/18/2023 25-HYDROXY VITAMIN D Lab Routine Senile osteoporosis Expected: 07/18/2023, Expires: 07/18/2024 Scheduled Procedures Name Priority Associated Diagnoses Date/Ti me COLONOSCOPY FLEXIBLE PROXIMAL DIAGNOSTIC Recall History of colon polyps Health Maintenance Due Date Last Done Comments Hepatitis B (1 of 3 - Risk 3-dose series) 2002 Albumin/Creatinine Ratio 09/29/2016 016, 09/24/2012, 06/13/2011 Depression Screening 04/09/2023 04/09/2022 COVID-19 Vaccine ( season) 2023 08/29/2021, 12/30/2020, 12/07/2020 Zoster Vaccines (3 of 3) 06/19/2023 04/24/2023, 0512/2014 GFR 07/26/2023 01/24/2023, 12/17, 11/29/2022, Additional history exists CKD PHOS USE SMARTSET 11384 10/12/202309/20, 10/12/2019, 08/18/2018, Additional history exists TSH 01/04/2024 01/03/2023, 03/20, 01/17/2021, Additional history exists CKD HGB USE SMARTSET 07154 01/25/202401/24, 01/24/2023, 01/03/2023, Additional history exists DXA [...] Senile osteoporosis- Primary documented in this encounter Advance Directives Documents on File Type Date Recorded Patient Parks Recreation Coordinator Expl anation Advance Directives and Living Will 05/01/2022 ADVANCE DIRECTIVE / LIVING WILL Power of Interior Design Professor 05/01/2022 POWER OF A TTORNEY Latest Code Status on File Code Status Date Activated Date Inactivated Comments Full Code 10/11/2019 7:48 PM 10/12/2019 8:11 PM This order reflects the patients wishes and were consensually agreed upon. Question Answer Comments Discussion of Advance Directives occurred with: Not Discussed Does the patient have a Living Will? No Does the patient have Health Care Power of Interior Design Professor? No Care Teams Organ Pipe Finisher Relationship Specialty Start Date End Date Giorgio Salas DO [address] [place] [address] PCP - General Family Medicine 02/15/17 documented as of this encounter
--- OUTSIDE RECORDS SUMMARY | 2023-07-26 06:25 | External Medical Summary | Summary of Care ---
Author Name Unknown Organization [facility] Address [address] [place] [address] Phone [phone] Care Team Providers Care Assembler Wet Wash Name Role Phone IsidoroGiorgio ontiveros Primary Care Provider [phone] Reason for Visit * Reason Comments Outpatient Testing Encounter Details Date Type Department Care Team (Late st Contact Info) Description 07/19/2023 11:30 AM EST Laboratory Laboratory [facility] [address] [place] [address] [facility] Lab [address] [place] [address] Senile osteoporosis Allergies Active Allergy Reactions Criticality Noted Date Comments Salicylates Itching 11/27/1999 Aspirin Sulfa Antibiotics Other (Please comment) 1998 Unsure, happened during a hospital admission. documented as of this encounter (statuses as of 07/24/2023) Medications Medication Sig Dispensed Refills Start Date [...] hours 10 Tablet 5 01/24/2023 Active Nystatin 955482 UNIT/GM External Cream Apply topically to affected [...] as of this encounter (statuses as of 07/24/2023) Active Problems Problem Noted Date Diagnosed Date [...] AGREEMENT 10/29/2017 Coronary artery disease invo lving [place] coronary artery of [place] heart without angina pectoris 10/28/2017 HTN, goal [...] History of positive PPD, untreated 08/10/2013 Prothrombin [id number] mutation 02/16/2013 Overview: heterozygous for the R42424r mutation Family history of prothrombin gene mutation [...] colonsocopy, repeat 2008 Irritable bowel syndrome 02/23/2004 skilled nursing current use of anticoagulant therapy 0 09/23/2003 DYSFUNCT EUSTACHIAN TUBE 01/05/2003 Dyslipidemia, goal LDL below 70 06/23/2002 Overview: Per Lipid Taxonomy. Anticoagulation management encounter 02/23/2002 History of DVT (deep vein thrombosis) 02/23/2002 History of pulmonary embolism 02/23/2002 documented as of this encounter (statuses as of 07/24/2023) Resolved Problems Problem Noted Date Diagnosed Date [...] as of this encounter (statuses as of 07/24/2023) Immunizations Name Administration Dates Next Due COVID-19 mRNA, LNP-s, No Pre serve, 2-Dose Series (Inaaya) 08/29/2021,12/30/2020,12/07/2020 H1N1 2009 Influenza, IM 10/17/2009 PPD [...] Care Team (Late st Contact Info) Description 07/29/2023 6:10 PM EST Pharmacy Pharmacy, [facility] [address] [place] [address] [facility] [address] [place] [address] 07/30/2023 2:00 PM EST Office Visit Rheumatology [address] [place] [address] Anton Zimmerman CRNP [address] [place] [address] [place] [address] 08/08/2023 1:30 PM EST Office Visit Audiology [facility] [address] [place] [address] Merari Vogel Au.D. [address] [place] [address] 10/07/2023 2:00 PM EST Office Visit Rheumatology [address] [place] [address] Alonso Dwyer MD [address] [place] [address] 11/22/2023 3:00 PM EDT Office Visit Family Practice [facility] [address] [facility] [place] [address] Giorgio Salas, DO [address] [place] [address] 02/04/2024 1:20 PM EDT Office Visit Rheumatology [facility] [address] [place], [place] [address] Alonso Dwyer MD [address] [place], [place] [address] Scheduled Procedures Name Priority Associated Diagnoses Date/Ti [...] 06/19/2023 04/24/2023, 12/2014 CKD PHOS USE SMARTSET 46041 10/12/202309/20, 10/12/2019, 08/18/2018, Additional history exists TSH 01/04/2024 01/03/2023, 03/20, 01/17/2021, Additional history exists GFR 01/18/2024 07/19/2023, 03/2023, 01/03/2023, Additional history exists CKD HGB USE SMARTSET 36880 01/25/202401/24, 01/24/2023, 01/03/2023, Additional history exists DXA [...] Not on filedocumented as of this encounter Procedures Procedure Name Priority Date/Time Associated Diagnosis Comments 25-HYDROXY VITAMIN D Routine 07/19/2023 11:37 AM EST Senile osteoporosis BASIC METABOLIC PANEL Routine 07/19/2023 11:37 AM EST Senile osteoporosis documented in this encounter Results * 25-HYDROXY VITAMIN D (07/19/2023 11:37 AM EST) 25-Hydroxy Vitamin D 66 >19 ng/mL 07/19/2023 9:18 PM EST [facility] Blood Venous blood specimen / Unknown Venipuncture / Unknown 07/19/2023 11:37 AM EST 07/19/2023 11:37 AM EST Narrative [facility] - 07/19/2023 9:18 PM EST Deficient: <20 ng/mL Insufficient: 20-29 ng/mL Recommended/Optimum:30-50 ng/mL Vitamin D intoxication is rare. If suspicious of Vitamin D toxicity, evaluation of serum Calcium and PTH is recommended. Aolnso Dwyer MD LAB BLOOD ORDERABLE S [facility] [address] [place] [address] * (ABNORMAL) BASIC METABOLIC PANEL (07/19/2023 11:37 AM EST) BUN 15 6 - 20 mg/dL 07/19/2023 12:53 PM EST [address] Creatinine 1.0 0.5 - 1.0 mg/dL 07/19/2023 12:53 PM EST [address] Estimated Glomerular Filtration Rate 54(L) >=60 mL/min 07/19/2023 12:53 PM EST [facility] 56 Comment:eGFR is calculated b ased on the CKD-EPI 2020 equation Sodium 142 135 - 146 mmol/L 07/19/2023 12:53 PM EST [facility] 56 Potassium 3.4(L) 3.5 - 5.1 mmol/L 07/19/2023 12:53 PM EST [address] Chloride 103 98 - 107 mmol/L 07/19/2023 12:53 PM EST [address] CO2 32 22 - 32 mmol/L 07/19/2023 12:53 PM EST [address] Anion Gap 7 7 - 15 mmol/L 07/19/2023 12:53 PM EST [address] Glucose 103 70 - 120 mg/dL 07/19/2023 12:[address] Calcium 8.8 8.4 - 10.2 mg/dL 07/19/2023 12:53 PM [facility] 5602 Blood Venous blood specimen / Unknown Venipuncture / Unknown 07/19/2023 11:37 AM EST 07/19/2023 11:37 AM EST Alonso Dwyer MD LAB BLOOD ORDERABLE S [place] [address] [place] [address] documented in this encounter Visit Diagnoses Diagnosis Senile osteoporosis documented in this encounter Advance Directives Documents on File Type Date Recorded Patient Mail Room Clerk Expl anation Advance Directives and Living Will 05/01/2022 ADVANCE DIRECTIVE / LIVING WILL Power of Maintenance Repairer 05/01/2022 POWER OF A TTORNEY Latest Code Status on File Code Status Date Activated Date Inactivated Comments Full Code 10/11/2019 7:48 PM 10/12/2019 8:11 PM This order reflects the patients wishes and were consensually agreed upon. Question Answer Comments Discussion of Advance Directives occurred with: Not Discussed Does the patient have a Living Will? No Does the patient have Health Care Power of Maintenance Repairer? No Care Teams Assembler Wet Wash Relationship Specialty Start Date End Date Giorgio Salas DO [address] [place] [address] PCP - General Family Medicine 02/15/17 documented as of this encounter
--- OUTSIDE RECORDS SUMMARY | 2023-07-26 06:26 | External Medical Summary | Summary of Care ---
Author Name Unknown Organization [facility] Address [address] [place] [address] Phone [phone] Care Team Providers Care Twine Winder Name Role Phone Mushtaq Gutiérrez DO Primary Care Provider [phone] Reason for Visit * Reason Comments eRx-Medication Refill Encounter Details Date Type Department Care Team (Late st Contact Info) Description 07/10/2023 Refill Family Practice [facility] [place] 200 [facility] [place] [address] Mushtaq Gutiérrez DO 200 [place] [address] History of pulmonary embolism Allergies Active Allergy Reactions Criticality Noted Date Comments Salicylates Itching 11/27/1999 Aspirin Sulfa Antibiotics Other (Please comment) 1998 Unsure, happened during a hospital admission. documented as of this encounter (statuses as of 07/10/2023) Medications Medication Sig Dispensed Refills Start Date End Date Status OXYGENIndications:H ypoxemia,Body mass index 40 and over, adult,Organic sleep disorder Use 2 Liters per minute via nasal cannula while sleeping 1 each 99 0 Active VITAMIN D 1000 UNITS PO CAPSIndications:Sen ile osteoporosis One capsule daily 30 Cap 5 4 Active acetaminophen (TYLENOL) 325 MG Tablet Take 2 Tablets by mouth every 6 hours as needed for Pain. 0 Active Vitron-C 65-125 MG Oral Tablet (Iron-Vitamin C) Take by mouth 1 Tablet in the morning. 30 Tablet 0 2 Active Carvedilol 12.5 MG Oral Tablet (Coreg)Indications: HTN, goal below 130/80,Unspecified atrial fibrillation (HCC) TAKE ONE TABLET BY MOUTH TWICE DAILY 180 Tablet 3 3 Active Furosemide 20 MG Oral Tablet (Lasix) TAKE ONE TABLET BY MOUTH IN THE MORNING 90 Tablet 3 3 Active Atorvastatin Calcium 20 MG Oral Tablet (Lipitor) TAKE ONE TABLET BY MOUTH DAILY 90 Tablet 3 3 Active Albuterol Sulfate HFA 108 (90 Base) MCG/ACT Inhalation Aerosol SolutionIndications :Mild persistent asthma without complication INHALE TWO PUFFS BY MOUTH EVERY FOUR HOURS NEEDED FOR WHEEZING 18 g 3 3 Active Fluticasone-Salmete rol 100-50 MCG/ACT Inhalation Aerosol Powder Breath Activated (Advair Diskus) Inhale 1 Puff by mouth in the morning and 1 Puff before bedtime. 60 Each 11 3 Active Lidocaine 5 % External Patch (Lidoderm)Indicatio ns:DDD (degenerative disc disease), lumbar,Primary localized osteoarthrosis of lower leg, unspecified laterality,Lumbar radiculopathy,Prima ry osteoarthritis of both knees Place 1 Patch over 12 hours topically on the skin daily. 30 Patch 0 3 Active Lasmiditan Succinate 50 MG Oral Tablet (Reyvow) Take one at onset of migraine. Max 1 dose in 24 hours 10 Tablet 5 3 Active Nystatin 168341 UNIT/GM External Cream Apply topically to affected area 2 times a day. To affacted area for two weeks. 15 g 2 3 Active Levothyroxine Sodium 50 MCG Oral Tablet (Levoxyl) TAKE ONE TABLET BY MOUTH IN THE MORNING AT LEAST 30 MINUTES PRIOR TO BREAKFAST OR OTHER MEDICATIONS 90 Tablet 1 3 Active Pantoprazole Sodium 40 MG Oral Tablet Delayed Release (Protonix) TAKE ONE TABLET BY MOUTH DAILY 90 Tablet 1 3 Active DULoxetine HCl 60 MG Oral Capsule Delayed Release Particles (Cymbalta) Take 1 Capsule by mouth in the morning and 1 Capsule before bedtime. 60 Capsule 5 3 Active Gabapentin 300 MG Oral Capsule (Neurontin) Take 1 Capsule by mouth in the morning and 1 Capsule at noon and 1 Capsule before bedtime. 90 Capsule 5 3 Active Zoster Vac Recomb Adjuvanted 50 MCG/0.5ML Intramuscular Suspension Reconstituted (Shingrix)Indicatio ns:Need for vaccination for zoster Inject 0.5 mL into a large muscle now and repeat dose in 60 to 180 days 1 Each 0 3 Active Albuterol Sulfate (2.5 MG/3ML) 0.083% Inhalation Nebulization Solution (Proventil)Indicati ons:Mild persistent asthma without complication Inhale 1 Vial via nebulizer every 4 hours as needed for Wheezing. 120 mL 5 3 Active Montelukast Sodium 10 MG Oral Tablet (Singulair)Indicati ons:Seasonal allergic rhinitis, unspecified trigger TAKE 1 TABLET BY MOUTH EVERY MORNING 90 Tablet 3 3 Active predniSONE 20 MG Oral Tablet (Deltasone)Indicati ons:Rhonchi at both lung bases 1 tab 3 times a day for 3 days, then 1 tab 2 times a day for 3 days, then 1 tab daily for 3 days 18 Tablet 0 3 Active traMADol HCl 50 MG Oral Tablet (Ultram)Indications :MEDICATION USE AGREEMENT,Controlle d substance agreement signed,Primary osteoarthritis of both shoulders Take 1 Tablet by mouth 2 times a day as needed for Pain, Moderate. 60 Tablet 0 3 Active Eliquis 5 MG Oral TabletIndications:H istory of pulmonary embolism Take 1 tablet by mouth in the morning, and 1 tablet in the evening. 180 Tablet 2 3 Active Clopidogrel Bisulfate 75 MG Oral Tablet (pLAVix) TAKE 1 TABLET BY MOUTH EVERY MORNING 90 Tablet 2 3 Active Clopidogrel Bisulfate 75 MG Oral Tablet (pLAVix) Take 1 Tablet by mouth in the morning. 30 Tablet 5 3 07/10/20 23 Discontinued Eliquis 5 MG Oral TabletIndications:H istory of pulmonary embolism Take 1 Tablet by mouth in the morning and 1 Tablet in the evening. 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 Anticoagulation management encounter 02/23/2002 History of DVT (deep vein thrombosis) 02/23/2002 History of pulmonary embolism 02/23/2002 documented as of this encounter (statuses as of 07/10/2023) Resolved Problems Problem Noted Date Diagnosed Date [...] as of this encounter (statuses as of 07/10/2023) Immunizations Name Administration Dates Next Due COVID-19 mRNA, LNP-s, No Pre serve, 2-Dose Series ([employer]) 08/29/2021,12/30/2020,12/07/2020 H1N1 2009 Influenza, IM 10/17/2009 PPD [...] encounter Miscellaneous Notes * Telephone Encounter - Angel Bazan [facility] - 07/10/2023 2:03 PM EST Signed Prescriptions: Disp Refills Eliquis 5 MG Oral Tablet 180 Ta*2 Sig: Take 1 tablet by mouth inthe morning, and 1 tablet in the evening.Authorizing Provider: MUSHTAQ GUTIÉRREZ User: ANGEL BAZAN Clopidogrel Bisulfate 75 MG Oral Tablet (p*90 Tab*2 Sig: TAKE 1 TABLET BY MOUTH EVERY MORNINGAuthorizing Provider: MUSHTAQ GUTIÉRREZ User: ANGEL BAZAN documented in this encounter Plan of Treatment Upcoming Encounters Date Type Department Care Team (Late st Contact Info) Description 07/22/2023 2:30 PM EST Nurse Only Rheumatology [facility] [address] [facility] [place] [address] Pf, Nurse Rheum [facility] [place] [address] 07/23/2023 1:30 PM EST Office Visit Cardiology, [facility] [address] [place] [address] Ning King PA-C [address] [place] [address] 07/29/2023 6:10 PM EST Pharmacy Pharmacy, [facility] [address] [facility] [place] [address] [facility] [address] [place] [address] 08/08/2023 1:30 PM EST Office Visit Audiology [facility] [address] [place], [place] [address] Merari Vogel Au.D. [address] [place] [address] 11/22/2023 3:00 PM EDT Office Visit Family Practice [facility] [address] [facility] [place] [address] Mushtaq Gutiérrez, DO [address] [place] [address] Scheduled Procedures Name Priority Associated Diagnoses Date/Ti me COLONOSCOPY FLEXIBLE PROXIMAL DIAGNOSTIC Recall History of colon polyps Health Maintenance Due Date Last Done Comments Hepatitis B (1 of 3 - Risk 3-dose series) 2002 Albumin/Creatinine Ratio 09/29/2016 016, 09/24/2012, 06/13/2011 Depression Screening 04/09/2023 04/09/2022 COVID-19 Vaccine (2022- season) 2023 08/29/2021, 12/30/2020, 12/07/2020 Zoster Vaccines (3 of 3) 06/19/2023 04/24/2023, 05/0 12/2014 GFR 07/26/2023 01/24/2023, 12/17, 11/29/2022, Additional history exists CKD PHOS USE SMARTSET 84117 10/12/202309/20, 10/12/2019, 08/18/2018, Additional history exists TSH 01/04/2024 01/03/2023, 03/20, 01/17/2021, Additional history exists CKD HGB USE SMARTSET 60543 01/25/202401/24, 01/24/2023, 01/03/2023, Additional history exists DXA [...] as of this encounter Visit Diagnoses Diagnosis History of pulmonary embolism Personal history of pulmonary embolism documented in this encounter Advance Directives Documents on File Type Date Recorded Patient Wholesale Representative Expl anation Advance Directives and Living Will 05/01/2022 ADVANCE DIRECTIVE / LIVING WILL Power of Chest Painting And Sealing Supervisor 05/01/2022 POWER OF A TTORNEY Latest Code Status on File Code Status Date Activated Date Inactivated Comments Full Code 10/11/2019 7:48 PM 10/12/2019 8:11 PM This order reflects the patients wishes and were consensually agreed upon. Question Answer Comments Discussion of Advance Directives occurred with: Not Discussed Does the patient have a Living Will? No Does the patient have Health Care Power of Chest Painting And Sealing Supervisor? No Care Teams Twine Winder Relationship Specialty Start Date End Date Mushtaq Gutiérrez DO [address] [place] [address] PCP - General Family Medicine 02/15/17 documented as of this encounter
--- OUTSIDE RECORDS SUMMARY | 2023-07-26 06:26 | External Medical Summary | Summary of Care ---
Author Name Unknown Organization [facility] Address [address] [place] [address] Phone [phone] Care Team Providers Care See Supervisor Name Role Phone IsidoroGiorgio ontiveros Primary Care Provider [phone] Reason for Visit * Reason Onset Date Comments case management 06/13/2023 Encounter Details Date Type Department Care Team (Late st Contact Info) Description 06/13/2023 Nutritional Chemist Telephone Ancillary 1st Floor, [facility], [place] [id number] Melody Beltran LPN [address] [place] [address] case management Allergies Active Allergy Reactions Criticality Noted Date Comments Salicylates Itching 11/27/1999 Aspirin Sulfa Antibiotics Other (Please comment) 1998 Unsure, happened during a hospital admission. documented as of this encounter (statuses as of 06/13/2023) Medications Medication Sig Dispensed Refills Start Date [...] before bedtime. 60 Each 11 10/03/2022 Active Lidocaine 5 % External Patch (Lidoderm)Indication s:DDD (degenerative disc disease), lumbar,Primary localized osteoarthrosis of lower leg, unspecified laterality,Lumbar radiculopathy,Primar y osteoarthritis of both knees Place 1 Patch over 12 hours topically on the skin daily. 30 Patch 0 12/27/2022 Active Clopidogrel Bisulfate 75 MG Oral Tablet (pLAVix) Take 1 Tablet by mouth in the morning. 30 Tablet 5 01/15/2023 Active Eliquis 5 MG Oral TabletIndications:Hi story of pulmonary embolism Take 1 Tablet by mouth in the morning and 1 Tablet in the evening. 60 Tablet 5 01/15/2023 Active Lasmiditan Succinate 50 MG Oral Tablet (Reyvow) Take one at onset of migraine. Max 1 dose in 24 hours 10 Tablet 5 01/24/2023 Active Nystatin 210306 UNIT/GM External Cream Apply topically to affected [...] 180 days 1 Each 0 04/24/2023 Active traMADol HCl 50 MG Oral Tablet (Ultram)Indications: MEDICATION USE AGREEMENT,Controlled substance agreement signed,Primary osteoarthritis of both shoulders Take 1 Tablet by mouth 2 times a day as needed for Pain, Moderate. 60 Tablet 0 05/14/2023 Active Albuterol Sulfate (2.5 MG/3ML) 0.083% Inhalation [...] 3 days 18 Tablet 0 06/07/2023 Active Doxycycline Hyclate 100 MG Oral CapsuleIndications:R honchi at both lung bases Take 1 Capsule by mouth in the morning and 1 Capsule before bedtime. Do all this for 10 days. Until gone.. 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 Anticoagulation management encounter 02/23/2002 History of DVT (deep vein thrombosis) 02/23/2002 History of pulmonary embolism 02/23/2002 documented as of this encounter (statuses as of 06/13/2023) Resolved Problems Problem Noted Date Diagnosed Date [...] as of this encounter (statuses as of 06/13/2023) Immunizations Name Administration Dates Next Due COVID-19 mRNA, LNP-s, No Pre serve, 2-Dose Series ([employer]) 08/29/2021,12/30/2020,12/07/2020 H1N1 2009 Influenza, IM 10/17/2009 PPD [...] you got the money to buy more. Sometimes true Within the past 12 months, t he food you bought just didn't last and you didn't have money to get more. Sometimes true Sex and Gender Information Value Date Recorded [...] or making decisions? (5 years old or older No 10/11/2019 documented as of this encounter Miscellaneous Notes * Telephone Encounter - Melody Beltran LPN - 06/13/2023 2:13 PM EDT Follow-up Routine Attempted Phone Call First Attempt Call Outcome Unable to Leave Message Plan To attempt another outreach documented in this encounter Plan of Treatment Upcoming Encounters Date Type Department Care Team (Late st Contact Info) Description 06/25/2023 11:00 AM EST Office Visit Pharmacy, [facility] [address] [facility] [place] [address] [facility] [address] [place] [address] 07/22/2023 2:30 PM EST Nurse Only Rheumatology [place] [address] [address] [place] [address] Pf, Nurse Rheum [facility]0 [address] [place] [address] 07/23/2023 1:30 PM EST Office Visit Cardiology, [facility] [address] [place] [address] Ning King, PAPierce [address] [place] [address] 11/22/2023 3:00 PM EDT Office Visit Family Practice [facility] [address] [place] [address] Giorgio Salas DO 200 [facility] [place] [address] Scheduled Procedures Name Priority Associated Diagnoses Date/Ti [...] Additional history exists CKD PHOS USE SMARTSET 62348 10/12/202309/20, 10/12/2019, 08/18/2018, Additional history exists TSH 01/04/2024 01/03/2023, 03/20, 01/17/2021, Additional history exists CKD HGB USE SMARTSET 46256 01/25/202401/24, 01/24/2023, 01/03/2023, Additional history exists DXA [...] Not on filedocumented as of this encounter Advance Directives Documents on File Type Date Recorded Patient Basket Bottom Machine Operator Expl anation Advance Directives and Living Will 05/01/2022 ADVANCE DIRECTIVE / LIVING WILL Power of Information Security 05/01/2022 POWER OF A TTORNEY Latest Code Status on File Code Status Date Activated Date Inactivated Comments Full Code 10/11/2019 7:48 PM 10/12/2019 8:11 PM This order reflects the patients wishes and were consensually agreed upon. Question Answer Comments Discussion of Advance Directives occurred with: Not Discussed Does the patient have a Living Will? No Does the patient have Health Care Power of Information Security? No Care Teams See Supervisor Relationship Specialty Start Date End Date Giorgio Salas DO [address] [place] [address] PCP - General Family Medicine 02/15/17 documented as of this encounter
--- OUTSIDE RECORDS SUMMARY | 2023-07-26 06:26 | External Medical Summary | Summary of Care ---
Author Name Unknown Organization [facility] Address [address] [place] [address] Phone [phone] Care Team Providers Care Caustic Cresylate Shift Superintendent Name Role Phone Giorgio Salas Primary Care Provider Encounter Details Date Type Department Care Team (Late st Contact Info) Description 01/08/2023 Population Health External Data Unspecified Department Allergies Active Allergy Reactions Criticality Noted Date Comments Salicylates Itching 11/27/1999 Aspirin Sulfa Antibiotics Other (Please comment) 1998 Unsure, happened during a hospital admission. documented as of this encounter (statuses as of 07/01/2023) Medications Medication Sig Dispensed Refills Start Date End Date Status OXYGENIndications:Hyp oxemia,Body mass index 40 and over, adult,Organic sleep disorder Use 2 Liters per minute via nasal cannula while sleeping 1 each 99 12/22/2009 Active VITAMIN D 1000 UNITS PO CAPSIndications:Senil e osteoporosis One capsule daily 30 Cap 5 01/04/2014 Active acetaminophen (TYLENOL) 325 MG Tablet Take 2 Tablets by mouth every 6 hours as needed for Pain. 0 Active Vitron-C 65-125 MG Oral Tablet (Iron-Vitamin C) Take by mouth 1 Tablet in the morning. 30 Tablet 0 03/02/2022 Active Carvedilol 12.5 MG Oral Tablet (Coreg)Indications:HT N, goal below 130/80,Unspecified atrial fibrillation (HCC) TAKE [...] HFA 108 (90 Base) MCG/ACT Inhalation Aerosol SolutionIndications:M ild persistent asthma without complication INHALE TWO PUFFS BY MOUTH EVERY FOUR HOURS NEEDED FOR WHEEZING 18 g 3 10/04/2022 Active Fluticasone-Salmetero l 100-50 MCG/ACT Inhalation Aerosol Powder Breath Activated (Advair Diskus) Inhale 1 Puff by mouth in the morning and 1 Puff before bedtime. 60 Each 11 10/03/2022 Active Lidocaine 5 % External Patch (Lidoderm)Indications :DDD (degenerative disc disease), lumbar,Primary localized osteoarthrosis of lower leg, unspecified laterality,Lumbar radiculopathy,Primary osteoarthritis of both knees Place 1 Patch over 12 hours topically on the skin daily. 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 Anticoagulation management encounter 02/23/2002 History of DVT (deep vein thrombosis) 02/23/2002 History of pulmonary embolism 02/23/2002 documented as of this encounter (statuses as of 07/01/2023) Resolved Problems Problem Noted Date Diagnosed Date [...] as of this encounter (statuses as of 07/01/2023) Immunizations Name Administration Dates Next Due COVID-19 mRNA, LNP-s, No Pre serve, 2-Dose Series ([employer]) 08/29/2021,12/30/2020,12/07/2020 H1N1 2009 Influenza, IM 10/17/2009 PPD 02/10/2021,01/31/2021 Pneumococcal Conjugate Vacc, 13 Valent (Prevnar) 09/26/2015 Pneumococcal Polysaccharide PPV23 (Pneumovax) 06/23/2008 SEASONAL INFLUENZA, PF, 6 M & Above, IM , (FLULAVAL or FLUZONE) 06/10/2018,05/14/2017 Season Influenza, Quad, PF, Adjuvanted, 65+ Yrs, IM (FLUAD) 05/26/2020 Seasonal Influenza Virus Vac cine, Unspecified Formulation 09/11/2021,05/26/2020,06/09/2019,06/10,05/14/2017,07/02/2016,06/09/2015 ,04/29/2014,05/14/2013,06/06/2012,05/20,06/05/2010,10/17/2009, 8,06/29/2006,07/29/2000 Seasonal Influenza, Quadriva lent Hd (Fluzone Hd) 05/01/2022,09/11/2021 Seasonal Influenza, Quadriva lent, No Preserve, IM 07/02/2016,06/09/2015 Seasonal Influenza, Split, I IV3, With Preserve, Inj 04/29/2014,05/14/2013,06/06/2012,06/13,06/05/2010,10/17/2009,06/23/2008 ,06/29/2006 Seasonal Influenza, Trivalen t, Adjuvanted, 65+ yrs 06/09/2019 TDAP (age 11 and older)(Adacel) 06/13/2011 Varicella Zoster Vaccine (Adult) 12/21/2014 documented as of this encounter Social History [...] 2:30 PM EST Nurse Only Rheumatology [facility] [address] [facility] [place] [address] Pf, Nurse Rheum [facility] [place] [address] 07/23/2023 1:30 PM EST Office Visit Cardiology, [facility] [address] [place] [address] Ning King PA-C [address] [place] [address] 07/29/2023 6:10 PM EST Pharmacy Pharmacy, [facility] [address] [facility] [place] [address] [facility] [address] [place] [address] 08/08/2023 1:30 PM EST Office Visit Audiology [facility] [place], [place] [address] Merari Vogel Au.D. [address] [place] [address] 11/22/2023 3:00 PM EDT Office Visit Family Practice [facility] [address] [place] [address] Giorgio Salas, DO [address] [place] [address] Scheduled Procedures Name Priority Associated Diagnoses Date/Ti [...] Additional history exists CKD PHOS USE SMARTSET 72050 10/12/202309/20, 10/12/2019, 08/18/2018, Additional history exists TSH 01/04/2024 01/03/2023, 03/20, 01/17/2021, Additional history exists CKD HGB USE SMARTSET 59657 01/25/202401/24, 01/24/2023, 01/03/2023, Additional history exists DXA [...] Documents on File Type Date Recorded Patient Supervisor Feed Mill Expl anation Advance Directives and Living Will 05/01/2022 ADVANCE DIRECTIVE / LIVING WILL Power of Engine Watchman 05/01/2022 POWER OF A TTORNEY Latest Code Status on File Code Status Date Activated Date Inactivated Comments Full Code 10/11/2019 7:48 PM 10/12/2019 8:11 PM This order reflects the patients wishes and were consensually agreed upon. Question Answer Comments Discussion of Advance Directives occurred with: Not Discussed Does the patient have a Living Will? No Does the patient have Health Care Power of Engine Watchman? No Care Teams Caustic Cresylate Shift Superintendent Relationship Specialty Start Date End Date Giorgio Salas DO [address] [place] [address] PCP - General Family Medicine 02/15/17 documented as of this encounter
--- OUTSIDE RECORDS SUMMARY | 2023-07-26 06:26 | External Medical Summary | Summary of Care ---
Author Name Unknown Organization [facility] Address [address] [facility] [place] [address] Phone [phone] Care Team Providers Care Corner Block Cutter Name Role Phone IsidoroGiorgio ontiveros Primary Care Provider [phone] Reason for Visit * Reason Comments Appointment Encounter Details Date Type Department Care Team (Late st Contact Info) Description 06/28/2023 6:10 PM [facility] Pharmacy Pharmacy, [facility] [address] [place] [address] [place] [address] Primary osteoarthritis of both knees*; Osteoarthrosis involving shoulder region; Osteoarthrosis, localized, primary, involving lower leg; DDD (degenerative disc disease), lumbar; Lumbar radiculopathy Allergies Active Allergy Reactions Criticality Noted Date Comments Salicylates Itching 11/27/1999 Aspirin Sulfa Antibiotics Other (Please comment) 1998 Unsure, happened during a hospital admission. documented as of this encounter (statuses as of 06/28/2023) Medications Medication Sig Dispensed Refills Start Date [...] hours 10 Tablet 5 01/24/2023 Active Nystatin 819042 UNIT/GM External Cream Apply topically to affected [...] 3 days 18 Tablet 0 06/07/2023 Active traMADol HCl 50 MG Oral Tablet (Ultram)Indications: MEDICATION USE AGREEMENT,Controlled substance agreement signed,Primary osteoarthritis of both shoulders Take 1 Tablet by mouth 2 times a day as needed for Pain, Moderate. 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 Anticoagulation management encounter 02/23/2002 History of DVT (deep vein thrombosis) 02/23/2002 History of pulmonary embolism 02/23/2002 documented as of this encounter (statuses as of 06/28/2023) Resolved Problems Problem Noted Date Diagnosed Date [...] as of this encounter (statuses as of 06/28/2023) Immunizations Name Administration Dates Next Due COVID-19 mRNA, LNP-s, No Pre serve, 2-Dose Series ([employer]) 08/29/2021,12/30/2020,12/07/2020 H1N1 2009 Influenza, IM 10/17/2009 PPD [...] as of this encounter Progress Notes * Fawn Reed machine shop inspector - 06/28/2023 10:33 AM EST Patient Phone Numbers Invalid phone number, unable to leave message on patients answering machine to schedule MTDM appointment for pain management. [facility] message sent --no Clinic will follow up again in 4 week(s). [Attempt # 1] Thank you, Fawn Reed Optical Fabrication Technician [facility] (formerly Tele[facility]) [phone] 06/28/2023,10:33 AM documented in this encounter Plan of Treatment Upcoming Encounters Date Type Department Care Team (Late st Contact Info) Description 07/22/2023 2:30 PM EST Nurse Only Rheumatology [facility] [address] [place] [address] Pf, Nurse Rheum [address] [place] [address] 07/23/2023 1:30 PM EST Office Visit Cardiology, [facility] [address] [place] [address] Ning King PA-C [address] [place] [address] 07/29/2023 6:10 PM EST Pharmacy Pharmacy, [facility] [address] [facility] [place] [address] [facility] [address] [facility] [place] [address] 11/22/2023 3:00 PM EDT Office Visit Family Practice [facility] [address] [place] [address] Giorgio Salas, DO [address] [facility] [place] [address] Scheduled Procedures Name Priority Associated Diagnoses Date/Ti [...] Additional history exists CKD PHOS USE SMARTSET 29081 10/12/202309/20, 10/12/2019, 08/18/2018, Additional history exists TSH 01/04/2024 01/03/2023, 03/20, 01/17/2021, Additional history exists CKD HGB USE SMARTSET 64753 01/25/202401/24, 01/24/2023, 01/03/2023, Additional history exists DXA [...] as of this encounter Visit Diagnoses Diagnosis Primary osteoarthritis of both knees- Primary Primary localized osteoarthrosis, lower leg Osteoarthrosis involving shoulder region Osteoarthrosis, unspecified whether generalized or localized, shoulder region Osteoarthrosis, localized, primary, involving lower leg Primary localized osteoarthrosis, lower leg DDD (degenerative disc disease), lumbar Degeneration of lumbar or lumbosacral intervertebral disc Lumbar radiculopathy Thoracic or lumbosacral neuritis or radiculitis, unspecified documented in this encounter Advance Directives Documents on File Type Date Recorded Patient Distribution Center Associate Expl anation Advance Directives and Living Will 05/01/2022 ADVANCE DIRECTIVE / LIVING WILL Power of Computer Analyst Supervisor 05/01/2022 POWER OF A TTORNEY Latest [...] the patient have Health Care Power of Computer Analyst Supervisor? No Care Teams Corner Block Cutter Relationship Specialty Start Date End Date Giorgio Salas DO [address] [place] [address] PCP - General Family Medicine 02/15/17 documented as of this encounter
--- OUTSIDE RECORDS SUMMARY | 2023-07-26 06:26 | External Medical Summary | Summary of Care ---
Author Name Unknown Organization [facility] Address [address] [place] [address] Phone [phone] Care Team Providers Care Bend Up Name Role Phone Giorgio Salas DO Primary Care Provider [phone] Encounter Details Date Type Department Care Team (Late st Contact Info) Description 06/10/[address] [facility] [address] [facility] [place] [address] Giorgio Salas DO [address] [facility] [place] [address] Allergies Active Allergy Reactions Criticality Noted Date Comments Salicylates Itching 11/27/1999 Aspirin Sulfa Antibiotics Other (Please comment) 1998 Unsure, happened during a hospital admission. documented as of this encounter (statuses as of 06/10/2023) Medications Medication Sig Dispensed Refills Start Date [...] hours 10 Tablet 5 01/24/2023 Active Nystatin 132190 UNIT/GM External Cream Apply topically to affected [...] as of this encounter (statuses as of 06/10/2023) Active Problems Problem Noted Date Diagnosed Date Chronic heart failure with preserved ejection fr action 11/26/2022 Food insecurity 04/30/2022 Overview: Per [facility] Protocol Chronic right-sided heart failure 04/12/2022 [...] AGREEMENT 10/29/2017 Coronary artery disease invo lving [place] coronary artery of [place] heart without angina pectoris 10/28/2017 HTN, goal [...] History of positive PPD, untreated 08/10/2013 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 Anticoagulation management encounter 02/23/2002 History of DVT (deep vein thrombosis) 02/23/2002 History of pulmonary embolism 02/23/2002 documented as of this encounter (statuses as of 06/10/2023) Resolved Problems Problem Noted Date Diagnosed Date [...] as of this encounter (statuses as of 06/10/2023) Immunizations Name Administration Dates Next Due COVID-19 mRNA, LNP-s, No Pre serve, 2-Dose Series ([employer]) 08/29/2021,12/30/2020,12/07/2020 H1N1 2009 Influenza, IM 10/17/2009 PPD [...] encounter Miscellaneous Notes * Telephone Encounter - Giorgio Salas DO - 06/10/2023 12:55 PM EDT I'm glad she is making progress. * Telephone Encounter - Cynthia Luu LPN - 06/10/2023 10:30 AM EDT Called and spoke with pt's . Informed of message below States that pt is still coughing, but not as much. Still wheezing off & on. Still having some trouble with taking deep breaths. Does seem a little better, but still far off from normal. * Telephone Encounter - Giorgio Salas DO - 06/10/2023 8:27 AM EDT Please call Anh or her Shaq: her chest x-ray looks good. Can you see if she's feeling any better? documented in this encounter Plan of Treatment Upcoming Encounters Date Type Department Care Team (Late st Contact Info) Description 06/25/2023 11:00 AM EST Office Visit Pharmacy, [facility] [place] [address] [facility] [address] [facility] [place] [address] 07/22/2023 2:30 PM EST Nurse Only Rheumatology [address] [place] [address] Pf, Nurse Rheum [address] [place] [address] [place] [address] 07/23/2023 1:30 PM EST Office Visit Cardiology, [facility] [address] [facility] [place] [address] Ning King, ALEA [address] [facility] [place] [address] 11/22/2023 3:00 PM EDT Office Visit Family Practice [facility] [address] [place] [address] Giorgio Salas DO [address] [facility] [place] [address] Scheduled Procedures Name Priority Associated Diagnoses Date/Ti [...] Additional history exists CKD PHOS USE SMARTSET 67639 10/12/202309/20, 10/12/2019, 08/18/2018, Additional history exists TSH 01/04/2024 01/03/2023, 03/20, 01/17/2021, Additional history exists CKD HGB USE SMARTSET 47230 01/25/202401/24, 01/24/2023, 01/03/2023, Additional history exists DXA [...] Documents on File Type Date Recorded Patient Tool Polisher Expl anation Advance Directives and Living Will 05/01/2022 ADVANCE DIRECTIVE / LIVING WILL Power of Straw Baler 05/01/2022 POWER OF A TTORNEY Latest Code Status on File Code Status Date Activated Date Inactivated Comments Full Code 10/11/2019 7:48 PM 10/12/2019 8:11 PM This order reflects the patients wishes and were consensually agreed upon. Question Answer Comments Discussion of Advance Directives occurred with: Not Discussed Does the patient have a Living Will? No Does the patient have Health Care Power of Straw Baler? No Care Teams Bend Up Relationship Specialty Start Date End Date Giorgio Salas DO [address] [place] [address] PCP - General Family Medicine 02/15/17 documented as of this encounter
--- OUTSIDE RECORDS SUMMARY | 2023-07-26 06:27 | External Medical Summary | Summary of Care ---
Author Name Unknown Organization [facility] Address [address] [facility] [place] [address] Phone [phone] Care Team Providers Care Buyer Internship Name Role Phone Giorgio Salas DO Primary Care Provider [phone] Reason for Visit * Reason Onset Date Comments Appointment 06/06/2023 Advice Encounter Details Date Type Department Care Team Description 06/06/2023 Telephone Family Practice [facility] [place] [address] [facility] [place] [address] Giorgio Salas DO [address] [facility] [place] [address] Appointment (Advice ) Allergies Active Allergy Reactions Severity Noted Date Comments Salicylates Itching 11/27/1999 Aspirin Sulfa Antibiotics Other (Please comment) 1998 Unsure, happened during a hospital admission. documented as of this encounter (statuses as of 06/06/2023) Medications Medication Sig Dispensed Refills Start Date [...] before bedtime. 60 Each 11 10/03/2022 Active Montelukast Sodium 10 MG Oral Tablet (Singulair)Indicatio ns:Seasonal allergic rhinitis, unspecified trigger Take 1 Tablet by mouth in the morning. 90 Tablet 1 12/10/2022 Active Lidocaine 5 % External Patch (Lidoderm)Indication [...] hours 10 Tablet 5 01/24/2023 Active Nystatin 490824 UNIT/GM External Cream Apply topically to affected [...] for Wheezing. 120 mL 5 06/06/2023 Active documented as of this encounter (statuses as of 06/06/2023) Active Problems Problem Noted Date Chronic heart failure with preserved eje ction fraction 11/26/2022 Food insecurity 04/30/2022 Overview: Per [facility] Protocol Chronic right-sided heart failure 2021 Recurrent major depressive disorder, in partial remission 10/17/2021 Chronic kidney disease, stage 3a 021 Overview: Per CKD protocol B12 deficiency 11/08/2020 Major depressive disorder, recurrent, un specified 09/30/2020 Lumbar radiculopathy 09/30/2020 Hypertensive kidney disease with stage 3 a chronic kidney disease 06/27/2020 Overview: Per CKD protocol Unspecified atrial fibrillation 04/01/20 Long QT interval 02/13/2019 DDD (degenerative disc disease), lumbar 05/20/2018 Impingement syndrome of both shoulders 0 05/07/2018 MEDICATION USE AGREEMENT 10/29/2017 Coronary artery disease invo lving [place] coronary artery of [place] heart without angina pectoris 10/28/2017 HTN, goal below 130/80 10/28/2017 Trochanteric bursitis of both hips 09/03 Body mass index (BMI) of 40.0 to 44.9 in adult 05/20/2017 Overview: Per Obesity protocol #1 Controlled substance agreement signed Osteoarthrosis, localized, primary, invo lving lower leg 11/13/2016 Overview: ICD-10 update of inactive term Primary osteoarthritis of both knees Osteoarthrosis involving shoulder region 10/19/2013 Enthesopathy of hip 10/19/2013 History of positive PPD, untreated 08/10 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 Anticoagulation management encounter 03/2002 History of DVT (deep vein thrombosis) History of pulmonary embolism 02/23/2002 documented as of this encounter (statuses as of 06/06/2023) Resolved Problems Problem Noted Date Resolved Date Left heart failure with preserved left ventricul ar function 04/12/2022 10/12/2022 Protein-calorie malnutrition 03/05/2022 Narcotic dependence 10/17/2021 10/12/2022 Type 2 diabetes mellitus wit h hemoglobin A1c goal of less than 8.0% 10/17/2021 10/17/2021 Chronic kidney disease, stage 3a 12/27/2020 02/01/2021 Overview: Per CKD protocol Need for prophylactic vaccin ation and inoculation against influenza 05/26/2020 06/28/2020 Acute deep vein thrombosis (DVT) of lower extrem ity 03/28/2020 10/12/2022 Morbid obesity due to excess calories 10/22/2019 09/12/2021 UTI (urinary tract infection) 10/12/2019 Hip hematoma, left 10/12/2019 02/01/2021 Scalp hematoma 10/12/2019 02/01/2021 Fall from standing 10/12/2019 02/01/2021 Hypokalemia 10/12/2019 02/01/2021 Concussion without loss of consciousness 020 02/01/2021 Morbid obesity 12/24/2018 02/26/2019 Sacroiliitis 11/24/2018 10/12/2022 Hypertensive kidney disease with chronic kidney disease stage III 11/19/2018 06/30/2020 Overview: Per CKD protocol Deep vein thrombosis (DVT) 10/31/201811/24 Deep vein thrombosis (DVT) 10/08/201704/08 Sacroiliitis 06/26/2016 05/16/2017 History of DVT (deep vein thrombosis) 09/28/2015 09/28/2015 DVT (deep venous thrombosis) 03/31/201505/2016 BMI 45.0-49.9, adult 12/21/2014 05/16/2017 Renal cyst, right 06/24/2013 06/28/2020 History of pulmonary embolus (PE) 02/11/2013 09/28/2015 Depression, acute 09/24/2012 05/16/2017 Opioid dependence on agonist therapy 02/28/2011 05/16/2017 Diverticulitis of colon 04/27/2010 06/28/20 20 Chronic kidney disease, stage 3 unspecified 02/1712/29/2020 Overview: Per CKD Protocol, #1 Asthma with severity to be determined 05/24/2008 07/19/2011 Overview: ICD-10 update of inactive term Hearing loss 01/05/2003 06/28/2020 GENERAL OSTEOARTHROSIS 08/07/2002 0 OBESITY, UNSPECIFIED 06/13/2001 11/15/2009 Overview: Per Obesity Taxonomy Varicose veins of lower extremity with ulcer 05/16/2017 HYPERTENSION NOS 11/14/2000 07/12/2009 Overview: Modified per HTN protocol #16. documented as of this encounter (statuses as of 06/06/2023) Immunizations Name Administration Dates Next Due COVID-19 mRNA, LNP-s, No Pre serve, 2-Dose Series ([email or web address]) 08/29/2021,12/30/2020,12/07/2020 H1N1 2009 Influenza, IM 10/17/2009 PPD [...] = 0.6 oz pur e alcohol) rare Alcohol Habits Answer Date Recorded How often do you have a drink containing alcohol ? Never 10/17/2021 How many drinks containing a lcohol do you have on a typical day when you are drinking? Not asked How often do you have six or more drinks on one occasion? Not asked Food Insecurity Answer Date Recorded Within the past 12 months, y ou worried that your food would run out before you got money to buy more. Sometimes true 2021 Within the past 12 months, t he food you bought just didn't last and you didn't have money to get more. Sometimes true Sex Assigned at Date Recorded Female 06/09/2019 2:27 PM E DT Job Start Date Occupation Industry Not on [...] Telephone Encounter - Giorgio Salas DO - 06/06/2023 3:18 PM EDT Will see tomorrow * Telephone Encounter - Leonard Coe III, MD - 06/06/2023 1:28 PM EDT Would they consider urgent care * Telephone Encounter - Alyx Garcia LPN - 06/06/2023 8:22 AM EDT Patient's calling to request an appt. 2 weeks ago patient developed a cough with thick phlegm (unknown color). Nasal congestion. "She's felt warm then cold" -No thermometer "She's prone for pneumonia" "She was getting better then it all came back" Sp O2 88% on room air at rest. Advised patient to take a deep breath - SP 02 90% (Wears O2 2lpm via nasal cannula at bed time) "You can hear it gurgling in there" "It sounds like she's getting pneumonia" Asked if patient was struggling to breath. "Sometimes here then it eases up a bit" They don't have a covid test at home. No openings in [facility] today. Scheduled tomorrow with Dr. Salas. Informed patient's I will check with the provider because of her symptoms now to see what is appropriate. He is adamant about not going to the ER. "It's a 5 hour stay up there" Requested we call him back if there is an appt versus me contacting the clinic on the phone. Knows if it gets worse ER is a must, "Okay, I will" Please advise. documented in this encounter Plan of Treatment Upcoming Encounters Date Type Specialty Care Team Description 06/07/2023 Office Visit Family Medicine Giorgio Salas, DO [address] [place] [address] 06/25/2023 Office Visit Pharmacy [facility] [address] [place] [address] 07/22/2023 Nurse Only Rheumatology Pf, Nurse Rheum [facility] [place] [address] 07/23/2023 Office Visit Cardiology Ning King PA-C [address] [place] [address] 11/22/2023 Office Visit Family Medicine Giorgio Salas, DO [address] [place] [address] Scheduled Procedures Name Priority Associated Diagnoses Date/Ti me COLONOSCOPY FLEXIBLE PROXIMAL DIAGNOSTIC Recall History of colon polyps Health Maintenance Due Date Last Done Comments Albumin/Creatinine Ratio 09/29/2016 016, 09/24/2012, 06/13/2011 Depression Screening 04/09/2023 04/09/2022 COVID-19 Vaccine ( season) 2023 08/29/2021, 12/30/2020, 12/07/2020 Zoster Vaccines (3 of 3) 06/19/2023 04/24/2023, 05/12/2014 GFR 07/26/2023 01/24/2023, 12/17, 11/29/2022, Additional history exists CKD PHOS USE SMARTSET 10221 10/12/202309/20, 10/12/2019, 08/18/2018, Additional history exists TSH 01/04/2024 01/03/2023, 03/20, 01/17/2021, Additional history exists CKD HGB USE SMARTSET 29732 01/25/202401/24, 01/24/2023, 01/03/2023, Additional history exists DXA [...] on patient's age to complete this topic Hepatitis B Aged Out No longer eligi ble based on patient's age to complete this topic MENINGOCOCCAL (MENACTRA/MENVEO) Aged Out No longer eligible based on patient's age to complete this topic documented as of this encounter Medical Devices Not on filedocumented as of this encounter Advance Directives Documents on File Type Date Recorded Patient Stained Glass Painter Expl anation Advance Directives and Living Will 05/01/2022 ADVANCE DIRECTIVE / LIVING WILL Power of O And M Supervisor 05/01/2022 POWER OF A TTORNEY Latest [...] the patient have Health Care Power of O And M Supervisor? No Care Teams Buyer Internship Relationship Specialty Start Date End Date Newhouser, Giorgio D, DO [address] [place] [address] PCP - General Family Medicine 02/15/17 documented as of this encounter
--- OUTSIDE RECORDS SUMMARY | 2023-07-26 06:27 | External Medical Summary | Summary of Care ---
Author Name Unknown Organization [facility] Address [address] [place] [address] Phone [phone] Care Team Providers Care Supervisor Fruit Grading Name Role Phone Giorgio Salas DO Primary Care Provider [phone] Reason for Visit * Reason Onset Date Comments Appointment 06/06/2023 Advice Encounter Details Date Type Department Care Team Description 06/06/2023 Telephone Family Practice [facility] [place] [address] [facility] [place] [address] Giorgio Salas DO [address] [facility] [place] [address] Appointment (Advice ) Allergies Active Allergy Reactions [...] hours 10 Tablet 5 01/24/2023 Active Nystatin 956217 UNIT/GM External Cream Apply topically to affected [...] fraction 11/26/2022 Food insecurity 04/30/2022 Overview: Per [facility] Protocol Chronic right-sided heart failure [...] AGREEMENT 10/29/2017 Coronary artery disease invo lving [place] coronary artery of [place] heart without angina pectoris 10/28/2017 HTN, goal [...] History of positive PPD, untreated 08/10 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 VARIANTS OF MIGRAINE WITH INTRACTABLE WI GRAINE, SO STATED 10/23/2005 History of colonic polyps 02/23/2004 Overview: 03/03/15: ischemic colitis of the sigmoid colon repeat 5 years 06/27/09: normal repeat 5 years 03/22/04: seen on colonsocopy, repeat 2008 Irritable bowel syndrome 02/23/2004 [employer] current use of anticoagulant t herapy 09/23/2003 [...] mRNA, LNP-s, No Pre serve, 2-Dose Series ([employer]) 08/29/2021,12/30/2020,12/07/2020 H1N1 2009 Influenza, IM 10/17/2009 PPD [...] covid test at home. No openings in [facility] today. Scheduled tomorrow with Dr. Salas. Informed [...] Medicine Giorgio Salas, DO [address] [place] [address] 06/25/2023 Office Visit Pharmacy [facility], [facility] [address] [place] [address] 07/22/2023 Nurse Only Rheumatology Pf, Nurse Rheum [facility] [place] [address] 07/23/2023 Office Visit Cardiology Ning King PA-C [address] [place] [address] 11/22/2023 Office Visit Family Medicine Giorgio Salas, DO [address] [place] [address] Scheduled Procedures Name Priority Associated Diagnoses Date/Ti me COLONOSCOPY FLEXIBLE PROXIMAL DIAGNOSTIC Recall History of colon polyps Health Maintenance Due Date Last Done Comments Albumin/Creatinine Ratio 09/29/2016 016, 09/24/2012, 06/13/2011 Depression Screening 04/09/2023 04/09/2022 COVID-19 Vaccine ( season) 2023 08/29/2021, 12/30/2020, 12/07/2020 Zoster Vaccines (3 of 3) 06/19/2023 04/24/2023, 05/12/2014 GFR 07/26/2023 01/24/2023, 12/17, 11/29/2022, Additional history exists CKD PHOS USE SMARTSET 33792 10/12/202309/20, 10/12/2019, 08/18/2018, Additional history exists TSH 01/04/2024 01/03/2023, 03/20, 01/17/2021, Additional history exists CKD HGB USE SMARTSET 49569 01/25/202401/24, 01/24/2023, 01/03/2023, Additional history exists DXA [...] Documents on File Type Date Recorded Patient Guidance Director Expl anation Advance Directives and Living Will 05/01/2022 ADVANCE DIRECTIVE / LIVING WILL Power of Cupola Melter Helper 05/01/2022 POWER OF A TTORNEY Latest Code Status on File Code Status Date Activated Date Inactivated Comments Full Code 10/11/2019 7:48 PM 10/12/2019 8:11 PM This order reflects the patients wishes and were consensually agreed upon. Question Answer Comments Discussion of Advance Directives occurred with: Not Discussed Does the patient have a Living Will? No Does the patient have Health Care Power of Cupola Melter Helper? No Care Teams Supervisor Fruit Grading Relationship Specialty Start Date End Date Newhouser, Giorgio D, DO [address] [place] [address] PCP - General Family Medicine 02/15/17 documented as of this encounter
--- OUTSIDE RECORDS SUMMARY | 2023-07-26 06:27 | External Medical Summary | Summary of Care ---
Author Name Unknown Organization [facility] Address [address] [place] [facility] [address] Phone [phone] Care Team Providers Care Medical Payment Poster Name Role Phone Mushtaq Gutiérrez DO Primary Care Provider [phone] Reason for Visit * Reason Comments eRx-Medication Refill Encounter Details Date Type Department Care Team Description 06/06/2023 Refill Family Practice [facility] [address] [facility] [place] [address] Mushtaq Gutiérrez DO [address] [facility] [place] [address] Seasonal allergic rhinitis, unspecified trigger Allergies Active Allergy Reactions Severity Noted Date [...] skin daily. 30 Patch 0 3 Active Clopidogrel Bisulfate 75 MG Oral Tablet (pLAVix) Take 1 Tablet by mouth in the morning. 30 Tablet 5 3 Active Eliquis 5 MG Oral TabletIndications:H istory of pulmonary embolism Take 1 Tablet by mouth in the morning and 1 Tablet in the evening. 60 Tablet 5 3 Active Lasmiditan Succinate 50 MG Oral Tablet (Reyvow) Take one at onset of migraine. Max 1 dose in 24 hours 10 Tablet 5 3 Active Nystatin 892918 UNIT/GM External Cream Apply topically to affected [...] 180 days 1 Each 0 3 Active traMADol HCl 50 MG Oral Tablet (Ultram)Indications :MEDICATION USE AGREEMENT,Controlle d substance agreement signed,Primary osteoarthritis of both shoulders Take 1 Tablet by mouth 2 times a day as needed for Pain, Moderate. 60 Tablet 0 3 Active Albuterol Sulfate (2.5 MG/3ML) 0.083% Inhalation Nebulization Solution (Proventil)Indicati ons:Mild persistent asthma without complication Inhale 1 Vial via nebulizer every 4 hours as needed for Wheezing. 120 mL 5 3 Active Montelukast Sodium 10 MG Oral Tablet (Singulair)Indicati ons:Seasonal allergic rhinitis, unspecified trigger TAKE 1 TABLET BY MOUTH EVERY MORNING 90 Tablet 3 3 Active Montelukast Sodium 10 MG Oral Tablet (Singulair)Indicati ons:Seasonal allergic rhinitis, unspecified trigger Take 1 Tablet by mouth in the morning. 90 Tablet 1 3 06/06/20 23 Discontinued documented as of this encounter (statuses as of 06/06/2023) Active Problems Problem Noted Date Chronic heart failure with preserved eje ction fraction 11/26/2022 Food insecurity 04/30/2022 Overview: Per [facility] Protocol Chronic right-sided heart failure 2021 Recurrent major depressive disorder, in partial remission 10/17/2021 Chronic kidney disease, stage 3a 021 Overview: Per CKD protocol B12 deficiency 11/08/2020 Major depressive disorder, recurrent, un specified 09/30/2020 Lumbar radiculopathy 09/30/2020 Hypertensive kidney disease with stage 3 a chronic kidney disease 06/27/2020 Overview: Per CKD protocol Unspecified atrial fibrillation 04/01/20 19 Long QT interval 02/13/2019 DDD (degenerative disc disease), lumbar 05/20/2018 Impingement syndrome of both shoulders 0 05/07/2018 MEDICATION USE AGREEMENT 10/29/2017 Coronary artery disease invo lving [place] coronary artery of [place] heart without angina pectoris 10/28/2017 HTN, goal [...] History of positive PPD, untreated 08/10 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 VARIANTS OF MIGRAINE WITH INTRACTABLE [place] GRAINE, SO STATED 10/23/2005 History of colonic polyps 02/23/2004 Overview: 03/03/15: ischemic colitis of the sigmoid colon repeat 5 years 06/27/09: normal repeat 5 years 03/22/04: seen on colonsocopy, repeat 2008 Irritable bowel syndrome 02/23/2004 prison current use of anticoagulant t herapy 09/23/2003 DYSFUNCT EUSTACHIAN TUBE 01/05/2003 Dyslipidemia, goal LDL below 70 06/23/20 Overview: Per Lipid Taxonomy. Anticoagulation management encounter [...] mRNA, LNP-s, No Pre serve, 2-Dose Series ([employer]) 08/29/2021,12/30/2020,12/07/2020 H1N1 2009 Influenza, IM 10/17/2009 PPD [...] encounter Miscellaneous Notes * Telephone Encounter - Dallin Carrasquillo RPh - 06/06/2023 4:21 PM EDT Signed Prescriptions: Disp Refills Montelukast Sodium 10 MG Oral Tablet (Sing*90 Tab*3 Sig: TAKE 1TABLET BY MOUTH EVERY MORNINGAuthorizing Provider: MUSHTAQ GUTIÉRREZ User: DALLIN CARRASQUILLO documented in this encounter Plan of Treatment Upcoming Encounters Date Type Specialty Care Team Description 06/07/2023 Office Visit Family Medicine Mushtaq Gutiérrez, DO [address] [place] [address] 06/25/2023 Office Visit Pharmacy [address] [place] [address] 07/22/2023 Nurse Only Rheumatology Pf, Nurse Rheum [facility] [address] [place] [address] 07/23/2023 Office Visit Cardiology Ning King PA-C [address] [place] [address] 11/22/2023 Office Visit Family Medicine Mushtaq Gutiérrez, DO [address] [place] [address] Scheduled Procedures Name Priority Associated Diagnoses Date/Ti me COLONOSCOPY FLEXIBLE PROXIMAL DIAGNOSTIC Recall History of colon polyps Health Maintenance Due Date Last Done Comments Albumin/Creatinine Ratio 09/29/2016 016, 09/24/2012, 06/13/2011 Depression Screening 04/09/2023 04/09/2022 COVID-19 Vaccine ( season) 2023 08/29/2021, 12/30/2020, 12/07/2020 Zoster Vaccines (3 of 3) 06/19/2023 04/24/2023, 05/0 12/2014 GFR 07/26/2023 01/24/2023, 12/17, 11/29/2022, Additional history exists CKD PHOS USE SMARTSET 04888 10/12/202309/20, 10/12/2019, 08/18/2018, Additional history exists TSH 01/04/2024 01/03/2023, 03/20, 01/17/2021, Additional history exists CKD HGB USE SMARTSET 84159 01/25/202401/24, 01/24/2023, 01/03/2023, Additional history exists DXA [...] as of this encounter Visit Diagnoses Diagnosis Seasonal allergic rhinitis, unspecified trigger documented in this encounter Advance Directives Documents on File Type Date Recorded Patient Recreation Aide Expl anation Advance Directives and Living Will 05/01/2022 ADVANCE DIRECTIVE / LIVING WILL Power of Hardware Manager 05/01/2022 POWER OF A TTORNEY Latest [...] the patient have Health Care Power of Hardware Manager? No Care Teams Medical Payment Poster Relationship Specialty Start Date End Date Mushtaq Gutiérrez, DO [address] [place] [address] PCP - General Family Medicine 02/15/17 documented as of this encounter
--- OUTSIDE RECORDS SUMMARY | 2023-07-26 06:27 | External Medical Summary | Summary of Care ---
Author Name Unknown Organization [facility] Address [address] [facility] [address] Phone [phone] Care Team Providers Care Seamer Panty Hose Name Role Phone Giorgio Salas DO Primary Care Provider [phone] Reason for Visit * Reason Comments Cough Short of Breath Encounter Details Date Type Department Care Team (Late st Contact Info) Description 06/07/2023 12:40 PM EDT Office Visit Family Practice [facility] [place] [address] [facility] [place] [address] Giorgio Salas DO [address] [facility] [place] [address] Acute cough*; Rhonchi at both lung bases Allergies Active Allergy Reactions Criticality Noted Date [...] hours 10 Tablet 5 01/24/2023 Active Nystatin 092331 UNIT/GM External Cream Apply topically to affected [...] action 11/26/2022 Food insecurity 04/30/2022 Overview: Per [facility] Protocol Chronic right-sided heart failure 04/12/2022 [...] AGREEMENT 10/29/2017 Coronary artery disease invo lving [place] coronary artery of [place] heart without angina pectoris 10/28/2017 HTN, goal [...] History of positive PPD, untreated 08/10/2013 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 Family history of prothrombin gene mutation [...] colonsocopy, repeat 2009 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 09/23/2003 [...] mRNA, LNP-s, No Pre serve, 2-Dose Series (Witel) 08/29/2021,12/30/2020,12/07/2020 H1N1 2009 Influenza, IM 10/17/2009 PPD [...] on file documented as of this encounter Last Filed Vital Signs Vital Sign Reading Time Taken Comments Blood Pressure 122/70 06/07/2023 12:32 PM EDT Pulse 85 06/07/2023 12:32 PM EDT Temperature 36.6 C (97.9 F) 06/07/2023 12:32 PM E DT Respiratory Rate 20 06/07/2023 12:32 PM EDT Oxygen Saturation 89% 06/07/2023 12:32 PM EDT Inhaled Oxygen Concentration - - Weight 88.9 kg (196 lb) 06/07/2023 12:32 PM EDT Height - - Body Mass Index 32.62 04/09/2022 10:21 AM EDT documented in this encounter Functional Status Functional Status Response [...] as of this encounter Progress Notes * Giorgio Salas, - 06/07/2023 12:51 PM EDT Subjective: Anh Breaux is a 83 year old female. Chief Complaint Patient presents with Cough Short of Breath HPI: Cough started a few weeks ago. Feels a lot of cough and heaviness on her chest. Trouble takingdeep breaths. Hurts all over. No F or C. No thermometer at home. Some sinus pressure and some ear pain on the L. Running nose - thick mucous. Some PND. She is wheezing. No N/V but some diarrhea but that is not new. No worse swelling in her legs. 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.01 History of colonic polyps Z86.010 Irritable bowel syndrome K58.9 VARIANTS OF MIGRAINE WITH INTRACTABLE MIGRAINE, SO STATED G43.819 Dyslipidemia E78.5 Dependence on supplemental oxygen Z99.81 Hypothyroidism E03.9 Hypoxemia R09.02 Asthma, mild persistent J45.30 GERD (gastroesophageal reflux disease) K21.9 Family history of prothrombin gene mutation Z83.2 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, untreated R76.11 Osteoarthrosis involving shoulder region M19.019 Enthesopathy of hip M76.899 Nocturnal hypoxia G47.34 Primary osteoarthritis of both knees M17.0 Osteoarthrosis, localized, primary, involving lower leg M17.10 Controlled substance agreement signed Z79.899 Body mass index (BMI) of 40.0 to 44.9 in adult ([facility]) Z68.41 Trochanteric bursitis of both hips M70.61, M70.62 Coronary artery disease involving iroquois coronary artery of iroquois heart without angina pectoris I25.10 HTN, goal below 130/80 I10 MEDICATION USE AGREEMENT [id number] Impingement syndrome of both shoulders M75.41, M75.42 DDD (degenerative disc disease), lumbar M51.36 Long QT interval R94.31 Unspecified atrial fibrillation ([facility]) I48.91 Hypertensive kidney disease with stage 3a chronic kidney disease I12.9, N18.31 Major depressive disorder, recurrent, unspecified ([facility]) F33.9 Lumbar radiculopathy M54.16 B12 deficiency E53.8 Chronic kidney disease, stage 3a ([facility]) N18.31 Recurrent major depressive disorder, in partial remission ([facility]) F33.41 Chronic right-sided heart failure ([facility]) I50.812 Food insecurity Z59.41 Chronic heart failure with preserved ejection fraction ([facility]) I50.32 Current Outpatient Medications Medication Sig Dispense Refill OXYGEN Use 2 Liters per minute via nasal cannula while sleeping 1 each 99 VITAMIN D 1000 UNITS PO CAPS One capsule daily 30 Cap 5 acetaminophen (TYLENOL) 325 MG Tablet Take 2 Tablets by mouth every 6 hours as needed for Pain. Vitron-C 65-125 MG Oral Tablet (Iron-Vitamin C) Take by mouth 1 Tablet in the morning. 30 Tablet Carvedilol 12.5 MG Oral Tablet (Coreg) TAKE ONE TABLET BY MOUTH TWICE DAILY 180 Tablet 3 Furosemide 20 MG Oral Tablet (Lasix) TAKE ONE TABLET BY MOUTH IN THE MORNING 90 Tablet 3 Atorvastatin Calcium 20 MG Oral Tablet (Lipitor) TAKE ONE TABLET BY MOUTH DAILY 90 Tablet 3 Albuterol Sulfate HFA 108 (90 Base) MCG/ACT Inhalation Aerosol Solution INHALE TWO PUFFS BY MOUTH EVERY FOUR HOURS NEEDED FOR WHEEZING 18 g 3 Fluticasone-Salmeterol 100-50 MCG/ACT Inhalation Aerosol Powder Breath Activated (Advair Diskus) Inhale 1 Puff by mouth in the morning and 1 Puff before bedtime. 60 Each 11 Lidocaine 5 % External Patch (Lidoderm) Place 1 Patch over 12 hours topically on the skin daily. 30Patch 0 Clopidogrel Bisulfate 75 MG Oral Tablet (pLAVix) Take 1 Tablet by mouth in the morning. 30 Tablet 5 Eliquis 5 MG Oral Tablet Take 1 Tablet by mouth in the morning and 1 Tablet in the evening. 60 Tablet 5 Lasmiditan Succinate 50 MG Oral Tablet (Reyvow) Take one at onset of migraine. Max 1 dose in 24 hours 10 Tablet 5 Nystatin 961859 UNIT/GM External Cream Apply topically to affected area 2 times a day. To affacted area for two weeks. 15 g 2 Levothyroxine Sodium 50 MCG Oral Tablet (Levoxyl) TAKE ONE TABLET BY MOUTH IN THE MORNING AT LEAST 30 MINUTES PRIOR TO BREAKFAST OR OTHER MEDICATIONS 90 Tablet 1 Pantoprazole Sodium 40 MG Oral Tablet Delayed Release (Protonix) TAKE ONE TABLET BY MOUTH DAILY 90 Tablet 1 DULoxetine HCl 60 MG Oral Capsule Delayed Release Particles (Cymbalta) Take 1 Capsule by mouth in the morning and 1 Capsule before bedtime. 60 Capsule 5 Gabapentin 300 MG Oral Capsule (Neurontin) Take 1 Capsule by mouth in the morning and 1 Capsule at noon and 1 Capsule before bedtime. 90 Capsule 5 Zoster Vac Recomb Adjuvanted 50 MCG/0.5ML Intramuscular Suspension Reconstituted (Shingrix) Inject 0.5 mL into a large muscle now and repeat dose in 60 to 180 days 1 Each 0 traMADol HCl 50 MG Oral Tablet (Ultram) Take 1 Tablet by mouth 2 times a day as needed for Pain, Moderate. 60 Tablet 0 Albuterol Sulfate (2.5 MG/3ML) 0.083% Inhalation Nebulization Solution (Proventil) Inhale 1 Vial via nebulizer every 4 hours as needed for Wheezing. 120 mL 5 Montelukast Sodium 10 MG Oral Tablet (Singulair) TAKE 1 TABLET BY MOUTH EVERY MORNING 90 Tablet 3 No current facility-administered medications for this visit. Review of patient's allergies indicates: Allergen Reactions Salicylates Itching Aspirin Sulfa Antibiotics Other (Please comment) Unsure, happened during a hospital admission. OBJECTIVE: BP 122/70 | Pulse 85 | Temp 36.6 C (97.9 F) (Tympanic) | Resp 20 | Wt 88.9 kg (196 lb) | SpO2 89% | BMI 32.62 kg/m | BSA 2.02 m Estimated body mass index is 32.62 kg/m as calculated from the following: Height as of 04/09/22: 1.651 m (5' 5"). Weight as of this encounter: 88.9 kg (196 lb). BP Readings from Last 3 Encounters: 06/07/23 122/70 04/24/23 114/62 01/24/23 126/74 Wt Readings from Last 3 Encounters: 06/07/23 88.9 kg (196 lb) 03/27/23 93 kg (205 lb) 01/24/23 98.9 kg (218 lb) ROS: Negative except for above PHYSICAL EXAM: General: alert, healthy, and no distress Head: Normocephalic, No masses, lesions, tenderness or abnormalities Ears: External ears normal, Canals clear, TM's Normal Nose: no mucosal erythema, no mucosal edema, no purulent discharge Oropharynx: no exudate, no erythema, lips, buccal mucosa, and tongue normal, and mucous membranes are moist Heart: regular rate & rhythm, no murmur, and no gallops Lungs: chest symmetric with normal AP diameter, no chest deformities noted, no chest wall tenderness, and rhonchi in upper airways ASSESSMENT/Plan Acute cough (Primary) - XR CHEST 2 VIEWS Rhonchi at both lung bases - predniSONE 20 MG Oral Tablet (Deltasone); 1 tab 3 times a day for 3 days, then 1 tab 2 times a day for 3 days, then 1 tab daily for 3 days - Doxycycline Hyclate 100 MG Oral Capsule; Take 1 Capsule by mouth in the morning and 1 Capsule before bedtime. Do all this for 10 days. Until gone.. - XR CHEST 2 VIEWS Start prednisone and abx considering hypoxia. Using oxygen at home as she needs it. Check CXR to makes this isn't more of a heart failure picture. The above was discussed and understanding was expressed. Giorgio Salas DO documented in this encounter Nursing Notes * Beatrice Finn LPN - 06/07/2023 12:31 PM EDT Chief Complaint Patient presents with Cough Short of Breath Pt states started about a a week ago documented in this encounter Plan of Treatment Upcoming Encounters Date Type Department Care Team (Late st Contact Info) Description 06/25/2023 11:00 AM EST Office Visit Pharmacy, [facility] [address] [address] [facility] [place] [address] [place] [address] 07/22/2023 2:30 PM EST Nurse Only Rheumatology [place] [id number] [place] [address] Pf, Nurse Rheum [facility] [place] [address] 07/23/2023 1:30 PM EST Office Visit Cardiology, [facility] [address] [facility] [place] [address] Ning King PA-C [address] [place] [address] 11/22/2023 3:00 PM EDT Office Visit Family Practice [facility] [place] [address] [facility] [place] [address] Giorgio Salas DO [address] [facility] [place] [address] Scheduled Procedures Name Priority Associated Diagnoses Date/Ti [...] Additional history exists CKD PHOS USE SMARTSET 89745 10/12/202309/20, 10/12/2019, 08/18/2018, Additional history exists TSH 01/04/2024 01/03/2023, 03/20, 01/17/2021, Additional history exists CKD HGB USE SMARTSET 79926 01/25/202401/24, 01/24/2023, 01/03/2023, Additional history exists DXA [...] Procedure Name Priority Date/Time Associated Diagnosis Comments XR CHEST 2 VIEWS STAT 06/07/2023 1:19 PM EDT Acute cough Rhonchi at both lung bases documented in this encounter Results * XR CHEST 2 VIEWS (06/07/2023 1:19 PM EDT) Anatomical Region Laterality Modality Chest Computed Radiogr aphy 06/07/2023 2:04 PM EDT Impressions 06/07/2023 2:01 PM EDT IMPRESSION 1. Chronic elevation of the right hemidiaphragm with passive atelectasis of the right lung base. 2. Severe chronic arthropathy of the glenohumeral joints with apparent subluxation on the right. 3. No acute radiographic findings. Narrative 06/07/2023 2:01 PM EDT EXAM XR CHEST 2 VIEWS - 06/07/2023 1:19 pm HISTORY Cough for two weeks with girgling and rhochi bilaterally TECHNIQUE Frontal and lateral radiographs of the chest were obtained. COMPARISON Chest radiograph 09/12/2021 and 01/23/2021 FINDINGS FOREIGN BODIES, SUPPORT TUBES, LINES, DEVICES: Cholecystectomy clips in the gallbladder fossa. LUNGS, PLEURA: Chronic elevation of the right hemidiaphragm, likely on the basis of eventration, with corresponding passive atelectasis of the right lung base, as seen on prior studies including a CT chest 10/11/2019. No pneumothorax or effusion. CARDIOVASCULAR, MEDIASTINUM: Stable cardiomediastinal silhouette. OTHER: Severe joint space narrowing of the glenohumeral joints with chronic osseous remodeling probable subluxation. Procedure Note Leonard Herrera MD - 06/07/2023 EXAM XR CHEST 2 VIEWS - 06/07/2023 1:19 pm HISTORY Cough for two weeks with girgling and rhochi bilaterally TECHNIQUE Frontal and lateral radiographs of the chest were obtained. COMPARISON Chest radiograph 09/12/2021 and 01/23/2021 FINDINGS FOREIGN BODIES, SUPPORT TUBES, LINES, DEVICES: Cholecystectomy clips inthe gallbladder fossa. LUNGS, PLEURA: Chronic elevation of the right hemidiaphragm, likely on thebasis of eventration, with corresponding passive atelectasis of the rightlung base, as seen on prior studies including a CT chest 10/11/2019. Nopneumothorax or effusion. CARDIOVASCULAR, MEDIASTINUM: Stable cardiomediastinal silhouette. OTHER: Severe joint space narrowing of the glenohumeral joints withchronic osseous remodeling probable subluxation. IMPRESSION IMPRESSION 1. Chronic elevation of the right hemidiaphragm with passive atelectasisof the right lung base. 2. Severe chronic arthropathy of the glenohumeral joints with apparentsubluxation on the right. 3. No acute radiographic findings. Giorgio Salas DO RADIOLOGY (RAD GENE RAL) documented in this encounter Visit Diagnoses Diagnosis Acute cough- Primary Rhonchi at both lung bases documented in this encounter Advance Directives Documents on File Type Date Recorded Patient Screening Nurse Expl anation Advance Directives and Living Will 05/01/2022 ADVANCE DIRECTIVE / LIVING WILL Power of [employer] 05/01/2022 POWER OF A TTORNEY Latest Code Status on File Code Status Date Activated Date Inactivated Comments Full Code 10/11/2019 7:48 PM 10/12/2019 8:11 PM This order reflects the patients wishes and were consensually agreed upon. Question Answer Comments Discussion of Advance Directives occurred with: Not Discussed Does the patient have a Living Will? No Does the patient have Health Care Power of [employer]? No Care Teams Seamer Panty Hose Relationship Specialty Start Date End Date Giorgio Salas DO [address] [place] [address] PCP - General Family Medicine 02/15/17 documented as of this encounter
--- OUTSIDE RECORDS SUMMARY | 2023-07-26 06:27 | External Medical Summary | Summary of Care ---
Author Name Unknown Organization [facility] Address [address] [place] [place] [place] [address] Phone [phone] Care Team Providers Care Furnace Feeder Name Role Phone Giorgio Salas DO Primary Care Provider [phone] Reason for Visit * Reason Onset Date Comments Appointment 06/06/2023 Advice Encounter Details Date Type Department Care Team Description 06/06/2023 Telephone Family Practice [facility] [place] [address] [facility] [place] [address] Giorgio Salas DO [address] [facility] [place] [address] Appointment (Advice ) Allergies Active Allergy Reactions Severity Noted Date Comments Salicylates Itching 11/27/1999 Aspirin Sulfa Antibiotics Other (Please comment) 1998 Unsure, happened during a hospital admission. documented as of this encounter (statuses as of 06/07/2023) Medications Medication Sig Dispensed Refills Start Date [...] hours 10 Tablet 5 3 Active Nystatin 998379 UNIT/GM External Cream Apply topically to affected [...] as of this encounter (statuses as of 06/07/2023) Active Problems Problem Noted Date Chronic heart failure with preserved eje ction fraction 11/26/2022 Food insecurity 04/30/2022 Overview: Per [facility] Protocol Chronic right-sided heart failure 2021 Recurrent major depressive disorder, in partial remission 10/17/2021 Chronic kidney disease, stage 3a 021 Overview: Per CKD protocol B12 deficiency 11/08/2020 Major depressive disorder, recurrent, un specified 09/30/2020 Lumbar radiculopathy 09/30/2020 Hypertensive kidney disease with stage 3 a chronic kidney disease 06/27/2020 Overview: Per CKD protocol Unspecified atrial fibrillation 08/14/20 19 Long QT interval 02/13/2019 DDD (degenerative disc disease), lumbar 05/20/2018 Impingement syndrome of both shoulders 0 05/07/2018 MEDICATION USE AGREEMENT 10/29/2017 Coronary artery disease invo lving [place] coronary artery of [place] heart without angina pectoris 10/28/2017 HTN, goal [...] History of positive PPD, untreated 08/10 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 VARIANTS OF MIGRAINE WITH INTRACTABLE AR GRAINE, SO STATED 10/23/2005 History of colonic polyps 02/23/2004 Overview: 03/03/15: ischemic colitis of the sigmoid colon repeat 5 years 06/27/09: normal repeat 5 years 03/22/04: seen on colonsocopy, repeat 2008 Irritable bowel syndrome 02/23/2004 shelter current use of anticoagulant t herapy 09/23/2003 DYSFUNCT EUSTACHIAN TUBE 01/05/2003 Dyslipidemia, goal LDL below 70 11/05/20 02 Overview: Per Lipid Taxonomy. Anticoagulation management encounter 03/2002 History of DVT (deep vein thrombosis) History of pulmonary embolism 02/23/2002 documented as of this encounter (statuses as of 06/07/2023) Resolved Problems Problem Noted Date Resolved Date [...] as of this encounter (statuses as of 06/07/2023) Immunizations Name Administration Dates Next Due COVID-19 mRNA, LNP-s, No Pre serve, 2-Dose Series (Viximo) 08/29/2021,12/30/2020,12/07/2020 H1N1 2009 Influenza, IM 10/17/2009 PPD 02/10/2021,01/31/2021 Pneumococcal Conjugate Vacc, 13 Valent (Prevnar) 09/26/2015 Pneumococcal Polysaccharide PPV23 (Pneumovax) 06/23/2008 SEASONAL INFLUENZA, PF, 6 M & Above, IM , (FLULAVAL or FLUZONE) 06/10/2018,05/14/2017 Season Influenza, Quad, PF, Adjuvanted, 65+ Yrs, IM (FLUAD) 05/26/2020 Seasonal Influenza Virus Vac cine, Unspecified Formulation 09/11/2021,05/26/2020,06/09/2019,05/20,05/14/2017,07/02/2016,06/09/20 15,04/29/2014,05/14/2013,06/06/2012,1 ,06/05/2010,10/17/2009,06/23,06/29/2006,07/29/2000 Seasonal Influenza, Quadriva lent Hd (Fluzone Hd) 04/24/2023,05/01/2022,09/11/2021 Seasonal Influenza, Quadriva lent, No Preserve, IM 07/02/2016,06/09/2015 Seasonal Influenza, Split, I IV3, With Preserve, Inj 04/29/2014,05/14/2013,06/06/2012,05/20,06/05/2010,10/17/2009,06/23/20 08,06/29/2006,07/29/2000 07/30/2001 Seasonal Influenza, Trivalen t, Adjuvanted, 65+ yrs 06/09/2019 TD - Tetanus/Diptheria (ADULT) 11/27/1999 TDAP (age 10 and older)(Boostrix) 04/24/2023 TDAP [...] encounter Miscellaneous Notes * Telephone Encounter - WAYLON Rios - 06/07/2023 9:51 AM EDT Pt is on for a 12:40 for today * Telephone Encounter - Giorgio Salas DO [...] covid test at home. No openings in [facility] today. Scheduled tomorrow with Dr. Salas. Informed [...] Visit Family Medicine Giorgio Salas, DO [address] [place] [address] 06/25/2023 Office Visit Pharmacy [facility] [address] [place] [address] 07/22/2023 Nurse Only Rheumatology Pf, Nurse Rheum [address] [facility] [place] [address] 07/23/2023 Office Visit Cardiology Ning King PA-C [address] [place] [address] 11/22/2023 Office Visit Family Medicine Giorgio Salas, DO [address] [place] [address] Scheduled Procedures Name Priority Associated Diagnoses Date/Ti me COLONOSCOPY FLEXIBLE PROXIMAL DIAGNOSTIC Recall History of colon polyps Health Maintenance Due Date Last Done Comments Albumin/Creatinine Ratio 09/29/2016 016, 09/24/2012, 06/13/2011 Depression Screening 04/09/2023 04/09/2022 COVID-19 Vaccine ( season) 2023 08/29/2021, 12/30/2020, 12/07/2020 Zoster Vaccines (3 of 3) 06/19/2023 04/24/2023, 05/12/2014 GFR 07/26/2023 01/24/2023, 12/17, 11/29/2022, Additional history exists CKD PHOS USE SMARTSET 57333 10/12/202309/20, 10/12/2019, 08/18/2018, Additional history exists TSH 01/04/2024 01/03/2023, 03/20, 01/17/2021, Additional history exists CKD HGB USE SMARTSET 90129 01/25/202401/24, 01/24/2023, 01/03/2023, Additional history exists DXA [...] Documents on File Type Date Recorded Patient 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 Question Answer Comments Discussion of Advance Directives occurred with: Not Discussed Does the patient have a Living Will? No Does the patient have Health Care Power of Relocation Commissioner? No Care Teams Furnace Feeder Relationship Specialty Start Date End Date Giorgio Salas, DO [address] [place] [address] PCP - General Family Medicine 02/15/17 documented as of this encounter
--- OUTSIDE RECORDS SUMMARY | 2023-07-26 06:28 | External Medical Summary | Summary of Care ---
Author Name Unknown Organization [facility] Address [address] [place] [facility] [place] [address] Phone [phone] Care Team Providers Care Quilt Sewer Name Role Phone Giorgio Salas DO Primary Care Provider [phone] Encounter Details Date Type Department Care Team Description 05/07/2023 Commercial Lease Administrator Ancillary 1st Floor, [place] [address] [place] [address] Melody Beltran LPN [address] [place], [place] [id number] Medical home patient encounter* Allergies Active Allergy Reactions Severity Noted Date Comments Salicylates Itching 11/27/1999 Aspirin Sulfa Antibiotics Other (Please comment) 1998 Unsure, happened during a hospital admission. documented as of this encounter (statuses as of 05/07/2023) Medications Medication Sig Dispensed Refills Start Date [...] hours as needed for Pain. 0 Active albuterol sulfate (PROVENTIL) (2.5 MG/3ML) 0.083% nebulizer solutionIndications: Mild persistent asthma without complication Inhale 1 Vial via nebulizer every 4 hours as needed for Wheezing. 120 mL 5 03/28/2020 Active Vitron-C 65-125 MG Oral Tablet (Iron-Vitamin [...] hours 10 Tablet 5 01/24/2023 Active Nystatin 743861 UNIT/GM External Cream Apply topically to affected [...] before bedtime. 90 Capsule 5 03/19/2023 Active traMADol HCl 50 MG Oral Tablet (Ultram)Indications: MEDICATION USE AGREEMENT,Controlled substance agreement signed,Primary osteoarthritis of both shoulders Take 1 Tablet by mouth 2 times a day as needed for Pain, Moderate. 60 Tablet 0 04/03/2023 Active Zoster Vac Recomb Adjuvanted 50 MCG/0.5ML Intramuscular Suspension Reconstituted (Shingrix)Indication s:Need for vaccination for zoster Inject 0.5 mL into a large muscle now and repeat dose in 60 to 180 days 1 Each 0 04/24/2023 Active documented as of this encounter (statuses as of 05/07/2023) Active Problems Problem Noted Date Chronic heart failure with preserved eje ction fraction 11/26/2022 Food insecurity 04/30/2022 Overview: Per [employer] [...] AGREEMENT 10/29/2017 Coronary artery disease invo lving [place] coronary artery of [place] heart without angina pectoris 10/28/2017 HTN, goal [...] History of positive PPD, untreated 08/10 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 Anticoagulation management encounter 03/2002 History of DVT (deep vein thrombosis) History of pulmonary embolism 02/23/2002 documented as of this encounter (statuses as of 05/07/2023) Resolved Problems Problem Noted Date Resolved Date [...] as of this encounter (statuses as of 05/07/2023) Immunizations Name Administration Dates Next Due COVID-19 mRNA, LNP-s, No Pre serve, 2-Dose Series (makeena) 08/29/2021,12/30/2020,12/07/2020 H1N1 2009 Influenza, IM 10/17/2009 PPD 02/10/2021,01/31/2021 Pneumococcal Conjugate Vacc, 13 Valent (Prevnar) 09/26/2015 Pneumococcal Polysaccharide PPV23 (Pneumovax) 06/23/2008 Season Influenza, Quad, PF, Adjuvanted, 65+ Yrs, IM (FLUAD) 05/26/2020 Seasonal Influenza Virus Vac cine, Unspecified Formulation 09/11/2021,05/26/2020,06/09/2019,06/10,05/14/2017,07/02/2016,06/09/2015 ,04/29/2014,05/14/2013,06/06/2012,05/20,06/05/2010,10/17/2009, 8,06/29/2006,07/29/2000 Seasonal Influenza, PF, 6 mo ns & Above, IM , (Flulaval) 06/10/2018,05/14/2017 Seasonal Influenza, Quadriva lent Hd (Fluzone Hd) [...] as of this encounter Progress Notes * Melody Beltran LPN - 05/07/2023 10:24 AM EDT SITUATION: Tier 3 follow up call for case management BACKGROUND: Hx HF and CVA ASSESSMENT: Spoke to spouse in follow up Patient doing okay. Some good days and some bad days as far as her chronic pain She is using Tramadol BID prn. Most of the time taking BID. Does not make her pain free but takes the "bite out of it" Afebrile Baseline DONAL[place]ON with tasks such as dressing. Quickly resolves with brief rest No cough noted Denies s/s UTI, urinating well Bowels okay but will have episodes loose bowels. Appetite very good. Eats anything he will sit in front of her. No N/V noted Mild intermittent lower leg edema. Some days, none Daily weight stable at 204.2 via [facility] Pulse ox running 93-96 % Wearing home oxygen at 2 L HS No falls noted by spouse. Most of the time confined to bed in living room RECOMMENDATION: Update from spouse Stable Will see Rheum in follow up 05/28/23 Continue daily weights and pulse ox checking Report increase dyspnea, UTI s/s, swelling CM to f/u in approx 1-2 weeks for update Melody Beltran LPN Ancillary [facility], [address] [place] [address] documented in this encounter Plan of Treatment Upcoming Encounters Date Type Specialty Care Team Description 05/28/2023 Office Visit Rheumatology Anton Zimmerman, JUDAH [address] [facility] [place], [place] [address] 06/25/2023 Office Visit Pharmacy [facility], [facility] [place] [address] [place] [address] 07/22/2023 Nurse Only Rheumatology Pf, Nurse Rheum [address] [facility] [place], [place] [address] 07/23/2023 Office Visit Cardiology Ning King PA-C [address] [place] [address] 11/22/2023 Office Visit Family Medicine Giorgio Salas, DO [address] [place] [address] Scheduled Procedures Name Priority Associated Diagnoses Date/Ti me COLONOSCOPY FLEXIBLE PROXIMAL DIAGNOSTIC Recall History of colon polyps Health Maintenance Due Date Last Done Comments Albumin/Creatinine Ratio 09/29/2016 016, 09/24/2012, 06/13/2011 COVID-19 Vaccine (4 - Pfizer series) 10/24/2021 08/29/2021, 12/30/2020, 12/07/2020 Depression Screening 04/09/2023 04/09/2022 Zoster Vaccines (3 of 3) 06/19/2023 04/24/2023, 0512/2014 GFR 07/26/2023 01/24/2023, 12/17, 11/29/2022, Additional history exists CKD PHOS USE SMARTSET 77611 10/12/202309/20, 10/12/2019, 08/18/2018, Additional history exists TSH 01/04/2024 01/03/2023, 03/20, 01/17/2021, Additional history exists CKD HGB USE SMARTSET 25780 01/25/202401/24, 01/24/2023, 01/03/2023, Additional history exists DXA [...] as of this encounter Visit Diagnoses Diagnosis Medical home patient encounter- Primary Other specified examination documented in this encounter Advance Directives Documents on File Type Date Recorded Patient Care Team Coordinator Scheduler Expl anation Advance Directives and Living Will 05/01/2022 ADVANCE DIRECTIVE / LIVING WILL Power of Silk Weaver 05/01/2022 POWER OF A TTORNEY Latest Code Status on File Code Status Date Activated Date Inactivated Comments Full Code 10/11/2019 7:48 PM 10/12/2019 8:11 PM This order reflects the patients wishes and were consensually agreed upon. Question Answer Comments Discussion of Advance Directives occurred with: Not Discussed Does the patient have a Living Will? No Does the patient have Health Care Power of Silk Weaver? No Care Teams Quilt Sewer Relationship Specialty Start Date End Date Giorgio Salas, DO [address] [place] [address] PCP - General Family Medicine 02/15/17 documented as of this encounter
--- OUTSIDE RECORDS SUMMARY | 2023-07-26 06:28 | External Medical Summary | Summary of Care ---
Author Name Unknown Organization [facility] Address [address] [facility] [address] Phone [phone] Care Team Providers Care Precinct Commanding Officer Name Role Phone Mushtaq Gutiérrez DO Primary Care Provider [phone] Encounter Details Date Type Department Care Team Description 06/06/2023 Refill Family Practice [facility] [place] [address] [facility] [place] [id number] Mushtaq Gutiérrez DO [address] [facility] [place] [address] Mild persistent asthma without complication Allergies Active Allergy Reactions Severity Noted Date [...] 12/22/2009 Active VITAMIN D 1000 UNITS PO CAPSIndications:Sen ile osteoporosis One capsule daily 30 Cap 5 01/04/2014 Active acetaminophen (TYLENOL) 325 MG Tablet Take 2 Tablets by mouth every 6 hours as needed for Pain. 0 Active Vitron-C 65-125 MG Oral Tablet (Iron-Vitamin C) Take by mouth 1 Tablet in the morning. 30 Tablet 0 03/02/2022 Active Carvedilol 12.5 MG Oral Tablet (Coreg)Indications: [...] FOR WHEEZING 18 g 3 10/04/2022 Active Fluticasone-Salmete rol 100-50 MCG/ACT Inhalation Aerosol Powder Breath Activated (Advair Diskus) Inhale 1 Puff by mouth in the morning and 1 Puff before bedtime. 60 Each 11 10/03/2022 Active Montelukast Sodium 10 MG Oral Tablet (Singulair)Indicati ons:Seasonal allergic rhinitis, unspecified trigger Take 1 Tablet by mouth in the morning. 90 Tablet 1 12/10/2022 Active Lidocaine 5 % External Patch (Lidoderm)Indicatio [...] 5 01/15/2023 Active Eliquis 5 MG Oral TabletIndications:H istory of pulmonary embolism Take 1 Tablet by mouth in the morning and 1 Tablet in the evening. 60 Tablet 5 01/15/2023 Active Lasmiditan Succinate 50 MG Oral Tablet (Reyvow) Take one at onset of migraine. Max 1 dose in 24 hours 10 Tablet 5 01/24/2023 Active Nystatin 144233 UNIT/GM External Cream Apply topically to affected [...] for Wheezing. 120 mL 5 06/06/2023 Active albuterol sulfate (PROVENTIL) (2.5 MG/3ML) 0.083% nebulizer solutionIndications :Mild persistent asthma without complication Inhale 1 Vial via nebulizer every 4 hours as needed for Wheezing. 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 VARIANTS OF MIGRAINE WITH INTRACTABLE [place] GRAINE, SO STATED 10/23/2005 History of colonic polyps 02/23/2004 Overview: 03/03/15: ischemic colitis of the sigmoid colon repeat 5 years 06/27/09: normal repeat 5 years 03/22/04: seen on colonsocopy, repeat 2008 Irritable bowel syndrome 02/23/2004 group home current use of anticoagulant t herapy 09/23/2003 [...] mRNA, LNP-s, No Pre serve, 2-Dose Series ([employer]) 08/29/2021,12/30/2020,12/07/2020 H1N1 2009 Influenza, IM 10/17/2009 PPD [...] encounter Miscellaneous Notes * Telephone Encounter - Mushtaq Gutiérrez DO - 06/06/2023 3:04 PM EDTSigned Prescriptions: Disp Refills Albuterol Sulfate (2.5 MG/3ML) 0.083% Inha*120 mL 5 Sig: Inhale 1 Vial via nebulizer every 4 hours as needed for Wheezing.Authorizing Provider: MUSHTAQ GUTIÉRREZ--- * Telephone Encounter - Beatrice Gifford LPN - 06/06/2023 10:54 AM EDT Pending Prescriptions: Disp Refills Albuterol Sulfate (2.5 MG/3ML) 0.083% Inh*120 mL 5 Sig: Inhale 1 Vial via nebulizer every 4 hours as needed for Wheezing. Last Visit: 04/24/2023 (in office), 06/28/2020 (telemedicine) Next Visit: 06/07/2023 Last date the medication was ordered: 03/28/2020 Patient Active Problem List Diagnosis Code Anticoagulation management encounter Z51.81, Z79.01 History of DVT (deep vein thrombosis) Z86.718 History of pulmonary embolism Z86.711 Dyslipidemia, goal LDL below 70 E78.5 DYSFUNCT EUSTACHIAN TUBE H69.90 group home current use of anticoagulant therapy Z79.01 History of colonic polyps Z86.010 Irritable bowel syndrome K58.9 VARIANTS OF MIGRAINE WITH INTRACTABLE MIGRAINE, SO STATED G43.819 Dyslipidemia E78.5 Dependence on supplemental oxygen Z99.81 Hypothyroidism E03.9 Hypoxemia R09.02 Asthma, mild persistent J45.30 GERD (gastroesophageal reflux disease) K21.9 Family history of prothrombin gene mutation Z83.2 Prothrombin [id number] mutation ([facility]) D68.52 History of positive PPD, untreated R76.11 Osteoarthrosis involving shoulder region M19.019 Enthesopathy of hip M76.899 Nocturnal hypoxia G47.34 Primary osteoarthritis of both knees M17.0 Osteoarthrosis, localized, primary, involving lower leg M17.10 Controlled substance agreement signed Z79.899 Body mass index (BMI) of 40.0 to 44.9 in adult ([facility]) Z68.41 Trochanteric bursitis of both hips M70.61, M70.62 Coronary artery disease involving [place] coronary artery of [place] heart without angina pectoris I25.10 HTN, goal below 130/80 I10 MEDICATION USE AGREEMENT LL0004 Impingement syndrome of both shoulders M75.41, M75.42 DDD (degenerative disc disease), lumbar M51.36 Long QT interval R94.31 Unspecified atrial fibrillation ([facility]) I48.91 Hypertensive kidney disease with stage 3a chronic kidney disease I12.9, N18.31 Major depressive disorder, recurrent, unspecified ([facility]) F33.9 Lumbar radiculopathy M54.16 B12 deficiency E53.8 Chronic kidney disease, stage 3a (HCC) N18.31 Recurrent major depressive disorder, in partial remission ([facility]) F33.41 Chronic right-sided heart failure ([facility]) I50.812 Food insecurity Z59.41 Chronic heart failure with preserved ejection fraction (HCC) I50.32 Labs: Lab Results Component Value Date/Time CREATININE - [facility] 1.0 01/24/2023 09:37 AM CREATININE - [facility] 1.0 04/14/2020 02:11 PM CREATININE JORGE LUIS 159 12/02/2017 11:02 AM CREATININE, RANDOM URINE - [facility] 69 09/29/2015 10:28 AM CREATININE-OUTSIDE LAB 1.32 (A) 01/03/2023 12:00 AM Lab Results Component Value Date/Time POTASSIUM - [facility] 4.1 01/24/2023 09:37 AM POTASSIUM - [facility] 3.8 04/14/2020 02:11 PM POTASSIUM-OUTSIDE LAB 3.9 01/03/2023 12:00 AM Lab Results Component Value Date/Time TSH - [facility] 3.14 04/09/2022 12:14 PM TSH - [facility] 0.77 04/14/2020 02:11 PM TSH - OUTSIDE LAB 1.959 01/03/2023 12:00 AM Lab Results Component Value Date/Time LDL (CALCULATED)-[facility] 69 01/03/2023 12:00 AM LDL CHOLESTEROL (CALCULATED) - [facility] 75 08/29/2021 01:16 PM LDL CHOLESTEROL (CALCULATED) - [facility] 67 12/06/2020 08:45 AM LDL CHOLESTEROL (CALCULATED) - [facility] 64 07/06/2019 10:33 AM LDL CHOLESTEROL (CALCULATED) - [facility] 105 01/18/2017 11:04 AM LDL CHOLESTEROL (DIRECT MEASURE) - [facility] NOT APPLICABLE 07/06/2019 10:33 AM LDL CHOLESTEROL (DIRECT MEASURE) - [facility] NOT APPLICABLE 01/18/2017 11:04 AM LDL CHOLESTEROL (DIRECT MEASURE) - [facility] 126 09/24/2012 02:19 PM LDL CHOLESTEROL (DIRECT MEASURE) - [facility] 91 04/13/2010 03:23 PM Lab Results Component Value Date/Time ALT - [facility] 16 11/26/2022 03:10 PM ALT - [facility] 11 07/06/2019 10:33 AM Hemoglobin AIC Results: Lab Results Component Value Date/Time HEMOGLOBIN A1C - [facility] 5.6 12/03/2008 01:39 PM documented in this encounter Plan of Treatment Upcoming Encounters Date Type Specialty Care Team Description 06/07/2023 Office Visit Family Medicine Mushtaq Gutiérrez, DO [address] [place], [place] [address] 06/25/[address] [facility] [address] [place] [address] 07/22/2023 Nurse Only Rheumatology Pf, Nurse Rheum [address] [place], [place] [address] 07/23/2023 Office Visit Cardiology Ning King PA-C [address] [place] [address] 11/22/2023 Office Visit Family Medicine Mushtaq Gutiérrez, DO [address] [place] [address] Scheduled Procedures Name Priority Associated Diagnoses Date/Ti me COLONOSCOPY FLEXIBLE PROXIMAL DIAGNOSTIC Recall History of colon polyps Health Maintenance Due Date Last Done Comments Albumin/Creatinine Ratio 09/29/2016 016, 09/24/2012, 06/13/2011 Depression Screening 04/09/2023 04/09/2022 COVID-19 Vaccine ( season) 2023 08/29/2021, 12/30/2020, 12/07/2020 Zoster Vaccines (3 of 3) 06/19/2023 04/24/2023, 0512/2014 GFR 07/26/2023 01/24/2023, 12/17, 11/29/2022, Additional history exists CKD PHOS USE SMARTSET 13406 10/12/202309/20, 10/12/2019, 08/18/2018, Additional history exists TSH 01/04/2024 01/03/2023, 03/20, 01/17/2021, Additional history exists CKD HGB USE SMARTSET 45621 01/25/202401/24, 01/24/2023, 01/03/2023, Additional history exists DXA [...] as of this encounter Visit Diagnoses Diagnosis Mild persistent asthma without complication Unspecified asthma documented in this encounter Advance Directives Documents on File Type Date Recorded Patient Coal Feeder Operator Expl anation Advance Directives and Living Will 05/01/2022 ADVANCE DIRECTIVE / LIVING WILL Power of Public Address Servicer 05/01/2022 POWER OF A TTORNEY Latest Code Status on File Code Status Date Activated Date Inactivated Comments Full Code 10/11/2019 7:48 PM 10/12/2019 8:11 PM This order reflects the patients wishes and were consensually agreed upon. Question Answer Comments Discussion of Advance Directives occurred with: Not Discussed Does the patient have a Living Will? No Does the patient have Health Care Power of Public Address Servicer? No Care Teams Precinct Commanding Officer Relationship Specialty Start Date End Date Mushtaq Gutiérrez, [address] [facility] [place] [address] PCP - General Family Medicine 02/15/17 documented as of this encounter
--- OUTSIDE RECORDS SUMMARY | 2023-07-26 06:28 | External Medical Summary | Summary of Care ---
Author Name Unknown Organization [facility] Address [address] [place] [address] Phone [phone] Care Team Providers Care Trench Shovel Operator Name Role Phone IsidoroGiorgio ontiveros Primary Care Provider [phone] Reason for Visit * Reason Comments Rheum Follow Up Follow up - shoulder s and hips Encounter Details Date Type Department Care Team Description 05/28/2023 Office Visit Rheumatology [id number] [place] [address] Anton Zimmerman CRNP [facility] [place] [address] Generalized osteoarthritis*; Primary osteoarthritis of both shoulders; Trochanteric bursitis of both hips; Impingement syndrome of both shoulders Allergies Active Allergy Reactions Severity Noted Date Comments Salicylates Itching 11/27/1999 Aspirin Sulfa Antibiotics Other (Please comment) 1998 Unsure, happened during a hospital admission. documented as of this encounter (statuses as of 05/28/2023) Medications Medication Sig Dispensed Refills Start Date [...] hours 10 Tablet 5 01/24/2023 Active Nystatin 829264 UNIT/GM External Cream Apply topically to affected [...] Pain, Moderate. 60 Tablet 0 05/14/2023 Active Hospital, Clinic, or Other Facility Administered Medication Ordered Dose Route Frequency Start Date End Date Status methylPREDNISolone acetate (Depo-Medrol) 40 MG/ML inj 40 mgIndications:Generalized osteoarthritis 40 mg IX ONCE 05/28/2023 05/28/2023 Ended methylPREDNISolone acetate (Depo-Medrol) 40 MG/ML inj 40 mgIndications:Generalized osteoarthritis 40 mg IX ONCE 05/28/2023 05/28/2023 Ended methylPREDNISolone acetate (Depo-Medrol) 40 MG/ML inj 40 mgIndications:Generalized osteoarthritis 40 mg IX ONCE 05/28/2023 05/28/2023 Ended methylPREDNISolone acetate (Depo-Medrol) 40 MG/ML inj 40 mgIndications:Generalized osteoarthritis 40 mg IX ONCE 05/28/2023 05/28/2023 Ended Lidocaine (PF) 2 % (PF) inj 20 mgIndications:Generalized osteoarthritis 20 mg IX ONCE 05/28/2023 05/28/2023 Ended Lidocaine (PF) 2 % (PF) inj 20 mgIndications:Generalized osteoarthritis 20 mg IX ONCE 05/28/2023 05/28/2023 Ended Lidocaine (PF) 2 % (PF) inj 20 mgIndications:Generalized osteoarthritis 20 mg IX ONCE 05/28/2023 05/28/2023 Ended Lidocaine (PF) 2 % (PF) inj 20 mgIndications:Generalized osteoarthritis 20 mg IX ONCE 05/28/2023 05/28/2023 Ended documented as of this encounter (statuses as of 05/28/2023) Active Problems Problem Noted Date Chronic heart [...] AGREEMENT 10/29/2017 Coronary artery disease invo lving [place] coronary artery of [place] heart without angina pectoris 10/28/2017 HTN, goal [...] History of positive PPD, untreated 08/10 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 VARIANTS OF MIGRAINE WITH INTRACTABLE ND GRAINE, SO STATED 10/23/2005 History of colonic polyps 02/23/2004 Overview: 03/03/15: ischemic colitis of the sigmoid colon repeat 5 years 06/27/09: normal repeat 5 years 03/22/04: seen on colonsocopy, repeat 2008 Irritable bowel syndrome 02/23/2004 custodial current use of anticoagulant t herapy 09/23/2003 DYSFUNCT EUSTACHIAN TUBE 01/05/2003 Dyslipidemia, goal LDL below 70 06/23/20 Overview: Per Lipid Taxonomy. Anticoagulation management encounter 03/2002 History of DVT (deep vein thrombosis) History of pulmonary embolism 02/23/2002 documented as of this encounter (statuses as of 05/28/2023) Resolved Problems Problem Noted Date Resolved Date [...] as of this encounter (statuses as of 05/28/2023) Immunizations Name Administration Dates Next Due COVID-19 [...] Date Smoking Tobacco: Never Smokeless Tobacco: Never Tobacco Cessation:Counseling Given: Not Answered Alcohol Use Standard Drinks/Week Comments Not Currently [...] Sign Reading Time Taken Comments Blood Pressure - - Pulse - - Temperature 36 C (96.8 F) 05/28/2023 3:40 PM EDT Respiratory Rate - - Oxygen Saturation - - Inhaled Oxygen Concentration - - Weight - - Height - - Body Mass Index - - documented in this encounter Functional Status Functional [...] shopping? (15 years old or older) Yes 02/23/20 20 Cognitive Status Response Date of Assessm ent Because of a physical, menta l, or emotional condition, do you have serious difficulty concentrating, remembering, or making decisions? (5 years old or older No 10/11/2019 documented as of this encounter Progress Notes * JUDAH Milligan - 05/28/2023 3:54 PM EDTAssociated Order(s): LG Joint Inj/Arthro: bilateral subacromial bursa; LG Joint Inj/Arthro: bilateral greater trochanteric bursa Post-Procedure Diagnose(s): Impingement syndrome of both shoulders; Trochanteric bursitis of both hips Anh Breaux is a 83 year old female patient who is having pain in her hips and shoulder today. She has had and tolerated injection in the past. Last procedure visit 03/27/2023. ICD-10-CM 1. Generalized osteoarthritis M15.9 2. Primary osteoarthritis of both shoulders M19.011 M19.012 3. Trochanteric bursitis of both hips M70.61 M70.62 4. 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 for the [id number] mutation custodial (current) use of anticoagulants 09/23/2003 MEDICATION USE AGREEMENT 10/29/2017 Migraine with aura Myalgia and myositis firbromyalgia Nocturnal hypoxia 01/06/2010 Seen on overnight oximetry Personal history of colonic polyps seen on colonsocopy PPD positive age 8 report by patient 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 LG Joint Inj/Arthro: bilateral subacromial bursa on 05/28/2023 4:10 PM Indications: pain Details: 25 G (1 1/2 ") needle, posterior approach Medications (Right): (40mg of depomedrol and 1 ml of 2 % lidocaine) Medications (Left): (40mg of depomedrol and 1 ml of 2 % lidocaine) Outcome: tolerated well, no immediate complications Procedure, treatment alternatives, risks and benefits explained, specific risks discussed. Consent was given by the patient. Immediately prior to procedure a time out was called to verify the correctpatient, procedure, equipment, wan support specialist and site/side marked as required. Patient was prepped and draped in the usual sterile fashion. LG Joint Inj/Arthro: bilateral greater trochanteric bursa on 05/28/2023 4:10 PM Indications: pain Details: 22 G needle, lateral approach Medications (Right): (40mg of depomedrol and 1 ml of 2 % lidocaine) Aspirate (Right): sent for lab analysis Medications (Left): (40mg of depomedrol and 1 ml of 2 % lidocaine) Outcome: tolerated well, no immediate complications Procedure, treatment alternatives, risks and benefits explained, specific risks discussed. Immediately prior to procedure a time out was called to verify the correct patient, procedure, equipment, wan support specialist and site/side marked as required. Patient was prepped and draped in the usual sterile fashion. The patient does well with local injections for trochanteric bursitis. Prior to the procedure: Discussed in detail risks and benefits of joint injections. Risks include, but are not limited to, pain,bleeding, infection, local reaction, joint swelling, joint redness, and need for further injection or evaluation. Patient was agreeable to procedure note below. Plan: 1. Discussed the above in detail with the patient. All questions were answered. 2. Meds: no changes 3. Testing: none needed 4. Follow up: as needed 5. See procedure note above JUDAH Adams 05/28/2023 I saw and examined the patient. I agree with the findings and plan as documented by Anton SO in this note. I supervised the injections. Alonso Dwyer MD Rheumatology Department documented in this encounter Nursing Notes * Karoline Garcia LPN - 05/28/2023 3:41 PM EDT Chief Complaint Patient presents with Rheum Follow Up Follow up - shoulders and hips documented in this encounter Plan of Treatment Upcoming Encounters Date Type Specialty Care Team Description 06/25/2023 Office Visit Pharmacy [place], [facility] [address] [place] [address] 07/22/2023 Nurse Only Rheumatology Pf, Nurse Rheum [address] [facility] [place] [address] 07/23/2023 Office Visit Cardiology Ning King PA-C [address] [place] [address] 11/22/2023 Office Visit Family Medicine Giorgio Salas, DO [address] [place] [address] Scheduled Procedures Name Priority Associated Diagnoses Date/Ti me COLONOSCOPY FLEXIBLE PROXIMAL DIAGNOSTIC Recall History of colon polyps Health Maintenance Due Date Last Done Comments Albumin/Creatinine Ratio 09/29/2016 016, 09/24/2012, 06/13/2011 Depression Screening 04/09/2023 04/09/2022 COVID-19 Vaccine ( season) 2023 08/29/2021, 12/30/2020, 12/07/2020 Zoster Vaccines (3 of 3) 06/19/2023 04/24/2023, 0512/2014 GFR 07/26/2023 01/24/2023, 12/17, 11/29/2022, Additional history exists CKD PHOS USE SMARTSET 85834 10/12/202309/20, 10/12/2019, 08/18/2018, Additional history exists TSH 01/04/2024 01/03/2023, 03/20, 01/17/2021, Additional history exists CKD HGB USE SMARTSET 50772 01/25/202401/24, 01/24/2023, 01/03/2023, Additional history exists DXA [...] Procedure Name Priority Date/Time Associated Diagnosis Comments FL ARTHROCENTESIS ASPIR&/INJ MAJOR JT/BURSA W/O US Routine 05/28/2023 4:10 PM EDT Trochanteric bursitis of both hips FL ARTHROCENTESIS ASPIR&/INJ MAJOR JT/BURSA W/O US Routine 05/28/2023 4:10 PM EDT Impingement syndrome of both shoulders documented in this encounter Results * FL ARTHROCENTESIS ASPIR&/INJ MAJOR JT/BURSA W/O US (05/28/2023 4:10 PM EDT) Anton Lima CRNP - 05/28/2023 4:10 PM EDT JUDAH Milligan 05/28/2023 4:58 PM LG Joint Inj/Arthro: bilateral greater trochanteric bursa on 05/28/2023 4:10 PM Indications: pain Details: 22 G needle, lateral approach Medications (Right): (40mg of depomedrol and 1 ml of 2 % lidocaine) Aspirate (Right): sent for lab analysis Medications (Left): (40mg of depomedrol and 1 ml of 2 % lidocaine) Outcome: tolerated well, no immediate complications Procedure, treatment alternatives, risks and benefits explained, specific risks discussed. Immediately prior to procedure a time out was called to verify the correct patient, procedure, equipment, wan support specialist and site/side marked as required. Patient was prepped and draped in the usual sterile fashion. Anton SO PROCDOC FORM * FL ARTHROCENTESIS ASPIR&/INJ MAJOR JT/BURSA W/O US (05/28/2023 4:10 PM EDT) Anton Lima CRNP - 05/28/2023 4:10 PM EDT JUDAH Milligan 05/28/2023 4:58 PM LG Joint Inj/Arthro: bilateral subacromial bursa on 05/28/2023 4:10 PM Indications: pain Details: 25 G (1 1/2 ") needle, posterior approach Medications (Right): (40mg of depomedrol and 1 ml of 2 % lidocaine) Medications (Left): (40mg of depomedrol and 1 ml of 2 % lidocaine) Outcome: tolerated well, no immediate complications Procedure, treatment alternatives, risks and benefits explained, specific risks discussed. Consent was given by the patient. Immediately prior to procedure a time out was called to verify the correct patient, procedure, equipment, wan support specialist and site/side marked as required. Patient was prepped and draped in the usual sterile fashion. Anton SO PROCDOC FORM documented in this encounter Visit Diagnoses Diagnosis Generalized osteoarthritis- Primary Generalized osteoarthrosis, unspecified site Primary osteoarthritis of both shoulders Trochanteric bursitis of both hips Enthesopathy of hip region Impingement syndrome of both shoulders Other affections of shoulder region, not elsewhere classified documented in this encounter Administered Medications Inactive Administered Medications - up to 3 most recent administrations Medication Order MAR Action Action Date Dose Rate Site Lidocaine (PF) 2 % (PF) inj 20 mg 20 mg, Intra-Articular, ONCE, On Sat05/28/23 at 1645, For 1 dose Given 05/28/2023 4:11 PM EDT 20 mg H ip Right Lidocaine (PF) 2 % (PF) inj 20 mg 20 mg, Intra-Articular, ONCE, On Sat05/28/23 at 1645, For 1 dose Given 05/28/2023 4:11 PM EDT 20 mg H ip Left Lidocaine (PF) 2 % (PF) inj 20 mg 20 mg, Intra-Articular, ONCE, On Sat05/28/23 at 1645, For 1 dose Given 05/28/2023 4:10 PM EDT 20 mg S [facility] Right Lidocaine (PF) 2 % (PF) inj 20 mg 20 mg, Intra-Articular, ONCE, On Sat05/28/23 at 1645, For 1 dose Given 05/28/2023 4:10 PM EDT 20 mg S [facility] Left methylPREDNISolone acetate (Depo-Medrol) 40 MG/ML inj 40 mg 40 mg, Intra-Articular, ONCE, On Sat05/28/23 at 1645, For 1 dose Given 05/28/2023 4:13 PM EDT 40 mg H ip Right methylPREDNISolone acetate (Depo-Medrol) 40 MG/ML inj 40 mg 40 mg, Intra-Articular, ONCE, On Sat05/28/23 at 1645, For 1 dose Given 05/28/2023 4:13 PM EDT 40 mg H ip Left methylPREDNISolone acetate (Depo-Medrol) 40 MG/ML inj 40 mg 40 mg, Intra-Articular, ONCE, On Sat05/28/23 at 1645, For 1 dose Given 05/28/2023 4:12 PM EDT 40 mg S [facility] Right methylPREDNISolone acetate (Depo-Medrol) 40 MG/ML inj 40 mg 40 mg, Intra-Articular, ONCE, On Sat05/28/23 at 1645, For 1 dose Given 05/28/2023 4:12 PM EDT 40 mg S [facility] Left documented in this encounter Advance Directives Documents on File Type Date Recorded Patient Combine Driver Expl anation Advance Directives and Living Will 05/01/2022 ADVANCE DIRECTIVE / LIVING WILL Power of Stove Refinisher 05/01/2022 POWER OF A TTORNEY Latest Code Status on File Code Status Date Activated Date Inactivated Comments Full Code 10/11/2019 7:48 PM 10/12/2019 8:11 PM This order reflects the patients wishes and were consensually agreed upon. Question Answer Comments Discussion of Advance Directives occurred with: Not Discussed Does the patient have a Living Will? No Does the patient have Health Care Power of Stove Refinisher? No Care Teams Trench Shovel Operator Relationship Specialty Start Date End Date Giorgio Salas, DO [address] [place] [place] [place] [address] PCP - General Family Medicine 02/15/17 documented as of this encounter
--- OUTSIDE RECORDS SUMMARY | 2023-07-26 06:28 | External Medical Summary | Summary of Care ---
Author Name Unknown Organization [facility] Address [address] [place] [address] Phone [phone] Care Team Providers Care Mounter Clarinets Name Role Phone Mushtaq Gutiérrez DO Primary Care Provider [phone] Reason for Visit * Reason Onset Date Comments Medication Refill 05/14/2023 Encounter Details Date Type Department Care Team Description 05/14/2023 Refill Family Practice [facility] [place] [address] [facility] [place] [address] Mushtaq Gutiérrez DO [address] [place] [address] MEDICATION USE AGREEMENT; Controlled substance agreement signed; Primary osteoarthritis of both shoulders Allergies Active Allergy Reactions Severity Noted Date Comments Salicylates Itching 11/27/1999 Aspirin Sulfa Antibiotics Other (Please comment) 1998 Unsure, happened during a hospital admission. documented as of this encounter (statuses as of 05/14/2023) Medications Medication Sig Dispensed Refills Start Date [...] hours 10 Tablet 5 01/24/2023 Active Nystatin 222731 UNIT/GM External Cream Apply topically to affected [...] Pain, Moderate. 60 Tablet 0 05/14/2023 Active traMADol HCl 50 MG Oral Tablet (Ultram)Indications :MEDICATION USE AGREEMENT,Controlle d substance agreement signed,Primary osteoarthritis of both shoulders Take 1 Tablet by mouth 2 times a day as needed for Pain, Moderate. 60 Tablet 0 04/03/2023 3 Discontinu ed(Refill) documented as of this encounter (statuses as of 05/14/2023) Active Problems Problem Noted Date Chronic heart failure with preserved eje ction fraction 11/26/2022 Food insecurity 04/30/2022 Overview: Per [facility] Protocol Chronic right-sided heart failure [...] AGREEMENT 10/29/2017 Coronary artery disease invo lving [place] coronary artery of [place] heart without angina pectoris 10/28/2017 HTN, goal [...] History of positive PPD, untreated 08/10 Prothrombin [id number] mutation 02/16/2013 Overview: heterozygous for the G56152h mutation Family history of prothrombin gene mutat ion 02/11/2013 GERD (gastroesophageal reflux disease) 0 09/24/2012 Asthma, mild persistent 07/19/2011 Hypoxemia 12/29/2010 Overview: Oxygen required Hypothyroidism 11/15/2010 Dependence on supplemental oxygen 2009 Nocturnal hypoxia 01/06/2010 Overview: Seen on overnight oximetry Dyslipidemia 08/08/2009 Overview: Per Lipid Taxonomy. VARIANTS OF MIGRAINE WITH INTRACTABLE TX GRAINE, SO STATED 10/23/2005 History of colonic [...] as of this encounter (statuses as of 05/14/2023) Resolved Problems Problem Noted Date Resolved Date [...] as of this encounter (statuses as of 05/14/2023) Immunizations Name Administration Dates Next Due COVID-19 mRNA, LNP-s, No Pre serve, 2-Dose Series (Dropifi) 08/29/2021,12/30/2020,12/07/2020 H1N1 2009 Influenza, IM 10/17/2009 PPD [...] Telephone Encounter - Mushtaq Gutiérrez DO - 05/14/2023 10:57 AM EDTSigned Prescriptions: Disp Refills traMADol HCl 50 MG Oral Tablet (Ultram) 60 Tab*0 Sig: Take 1 Tablet by mouth 2 times a day as needed for Pain, Moderate. Authorizing Provider: MUSHTAQ GUTIÉRREZ * Telephone Encounter - Geovanna Vargas LPN - 05/14/2023 9:55 AM EDT Pending Prescriptions: Disp Refills traMADol HCl 50 MG Oral Tablet (Ultram) 60 Tab*0 Sig: Take 1 Tablet by mouth 2 times a day as needed for Pain, Moderate. 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 Z79.01 History of colonic polyps Z86.010 Irritable bowel syndrome K58.9 VARIANTS OF MIGRAINE WITH INTRACTABLE MIGRAINE, SO STATED G43.819 Dyslipidemia E78.5 Dependence on supplemental oxygen Z99.81 Hypothyroidism E03.9 Hypoxemia R09.02 Asthma, mild persistent J45.30 GERD (gastroesophageal reflux disease) K21.9 Family history of prothrombin gene mutation Z83.2 Prothrombin [id number] mutation ([facility]) D68.52 History of positive PPD, untreated R76.11 Osteoarthrosis involving shoulder region M19.019 Enthesopathy of hip M76.899 Nocturnal hypoxia G47.34 Primary osteoarthritis of both knees M17.0 Osteoarthrosis, localized, primary, involving lower leg M17.10 Controlled substance agreement signed Z79.899 Body mass index (BMI) of 40.0 to 44.9 in adult ([facility]) Z68.41 Trochanteric bursitis of both hips M70.61, M70.62 Coronary artery disease involving [place] coronary artery of [place] heart without angina pectoris I25.10 HTN, goal below 130/80 I10 MEDICATION USE AGREEMENT [id number] Impingement syndrome of both shoulders M75.41, M75.42 DDD (degenerative disc disease), lumbar M51.36 Long QT interval R94.31 Unspecified atrial fibrillation ([facility]) I48.91 Hypertensive kidney disease with stage 3a chronic kidney disease I12.9, N18.31 Major depressive disorder, recurrent, unspecified ([facility]) F33.9 Lumbar radiculopathy M54.16 B12 deficiency E53.8 Chronic kidney disease, stage 3a ([facility]) N18.31 Recurrent major depressive disorder, in partial remission ([facility]) F33.41 Chronic right-sided heart failure (HCC) I50.812 Food insecurity Z59.41 Chronic heart failure [...] Office Visit Rheumatology Anton Zimmerman, JUDAH [address] [facility] [place] [address] 06/25/2023 Office Visit Pharmacy [facility], [facility] [address] [place] [address] 07/22/2023 Nurse Only Rheumatology Pf, Nurse Rheum [address] [facility] [place], [place] [address] 07/23/2023 Office Visit Cardiology Ning King PA-C [address] [place] [address] 11/22/2023 Office Visit Family Medicine Mushtaq Gutiérrez, DO [address] [place], [place] [address] Scheduled Procedures Name Priority Associated Diagnoses Date/Ti [...] Additional history exists CKD PHOS USE SMARTSET 23928 10/12/202309/20, 10/12/2019, 08/18/2018, Additional history exists TSH 01/04/2024 01/03/2023, 03/20, 01/17/2021, Additional history exists CKD HGB USE SMARTSET 04055 01/25/202401/24, 01/24/2023, 01/03/2023, Additional history exists DXA [...] as of this encounter Visit Diagnoses Diagnosis MEDICATION USE AGREEMENT Controlled substance agreement signed Encounter for long-term (current) use of other medications Primary osteoarthritis of both shoulders documented in this encounter Advance Directives Documents on File Type Date Recorded Patient Plasterer Helper Expl 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 Question Answer Comments Discussion of Advance Directives occurred with: Not Discussed Does the patient have a Living Will? No Does the patient have Health Care Power of Set Up Technician? No Care Teams Mounter Clarinets Relationship Specialty Start Date End Date Mushtaq Gutiérrez, [address] [place] [address] PCP - General Family Medicine 02/15/17 documented as of this encounter
--- OUTSIDE RECORDS SUMMARY | 2023-07-26 06:28 | External Medical Summary | Summary of Care ---
Author Name Unknown Organization [facility] Address [address] [facility] [place] [address] Phone [phone] Care Team Providers Care Technical Customer Support Specialist Name Role Phone Giorgio Salas DO Primary Care Provider [phone] Reason for Visit * Reason Comments eRx-Medication Refill Encounter Details Date Type Department Care Team Description 05/22/2023 Refill Family Practice [facility] [place] [address] [facility] [place] [address] Giorgio Salas DO [address] [facility] [place] [address] Allergies Active Allergy Reactions Severity Noted Date Comments Salicylates Itching 11/27/1999 Aspirin Sulfa Antibiotics Other (Please comment) 1998 Unsure, happened during a hospital admission. documented as of this encounter (statuses as of 05/23/2023) Medications Medication Sig Dispensed Refills Start Date [...] hours 10 Tablet 5 01/24/2023 Active Nystatin 809694 UNIT/GM External Cream Apply topically to affected [...] Pain, Moderate. 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 Anticoagulation management encounter 03/2002 History of DVT (deep vein thrombosis) History of pulmonary embolism 02/23/2002 documented as of this encounter (statuses as of 05/23/2023) Resolved Problems Problem Noted Date Resolved Date [...] as of this encounter (statuses as of 05/23/2023) Immunizations Name Administration Dates Next Due COVID-19 mRNA, LNP-s, No Pre serve, 2-Dose Series (GiftMe) 08/29/2021,12/30/2020,12/07/2020 H1N1 2009 Influenza, IM 10/17/2009 PPD [...] encounter Miscellaneous Notes * Telephone Encounter - Amy Hancock RPh - 05/23/2023 10:26 AM EDTRefused Prescriptions: Disp Refills DULoxetine HCl 30 MG Oral Capsule Delayed *90 Cap*0 Sig: TAKE ONE CAPSULE BY MOUTH DAILY. DO NOT CUT, CRUSH, OR CHEW.Refused By: AMY HANCOCK for Refusal: Refill Not Appropriate documented in this encounter Plan of Treatment Upcoming Encounters Date Type Specialty Care Team Description 05/28/2023 Office Visit Rheumatology Anton Zimmerman CRNP [address] [facility] [place] [address] 06/25/2023 Office Visit Pharmacy [facility] [address] [place] [address] 07/22/2023 Nurse Only Rheumatology Pf, Nurse Rheum [address] [facility] [place] [address] 07/23/2023 Office Visit Cardiology Ning King PA-C [address] [place] [address] 11/22/2023 Office Visit Family Medicine Giorgio Salas, DO [address] [place] [address] Scheduled Procedures Name Priority Associated Diagnoses Date/Ti me COLONOSCOPY FLEXIBLE PROXIMAL DIAGNOSTIC Recall History of colon polyps Health Maintenance Due Date Last Done Comments Albumin/Creatinine Ratio 09/29/2016 016, 09/24/2012, 06/13/2011 Depression Screening 04/09/2023 04/09/2022 COVID-19 Vaccine ( season) 2023 08/29/2021, 12/30/2020, 12/07/2020 Zoster Vaccines (3 of 3) 06/19/2023 04/24/2023, 0512/2014 GFR 07/26/2023 01/24/2023, 12/17, 11/29/2022, Additional history exists CKD PHOS USE SMARTSET 16497 10/12/202309/20, 10/12/2019, 08/18/2018, Additional history exists TSH 01/04/2024 01/03/2023, 03/20, 01/17/2021, Additional history exists CKD HGB USE SMARTSET 47538 01/25/202401/24, 01/24/2023, 01/03/2023, Additional history exists DXA [...] Documents on File Type Date Recorded 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 Question Answer Comments Discussion of Advance Directives occurred with: Not Discussed Does the patient have a Living Will? No Does the patient have Health Care Power of Plant And Machinery Valuer? No Care Teams Technical Customer Support Specialist Relationship Specialty Start Date End Date Giorgio Salas, [address] [place] [address] PCP - General Family Medicine 02/15/17 documented as of this encounter
--- OUTSIDE RECORDS SUMMARY | 2023-07-26 06:29 | External Medical Summary | Summary of Care ---
Author Name Unknown Organization [facility] Address [address] [place] [address] Phone [phone] Care Team Providers Care Boats Renter Name Role Phone IsidoroGiorgio ontiveros Primary Care Provider [phone] Reason for Visit * Reason Onset Date Comments case management 04/08/2023 Encounter Details Date Type Department Care Team Description 04/08/2023 Clothespin Machine Operator Telephone General Internal Medicine [facility] [address] [place], [place] [id number] Mayda Lilly, RN [address] [place] [address] case management Allergies Active Allergy Reactions Severity Noted Date Comments Salicylates Itching 11/27/1999 Aspirin Sulfa Antibiotics Other (Please comment) 1998 Unsure, happened during a hospital admission. documented as of this encounter (statuses as of 04/09/2023) Medications Medication Sig Dispensed Refills Start Date [...] hours 10 Tablet 5 01/24/2023 Active Nystatin 207315 UNIT/GM External Cream Apply topically to affected [...] Pain, Moderate. 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 VARIANTS OF MIGRAINE WITH INTRACTABLE ME GRAINE, SO STATED 10/23/2005 History of colonic polyps 02/23/2004 Overview: 03/03/15: ischemic colitis of the sigmoid colon repeat 5 years 06/27/09: normal repeat 5 years 03/22/04: seen on colonsocopy, repeat 2009 Irritable bowel syndrome 02/23/2004 skilled nursing current use of anticoagulant t herapy 09/23/2003 DYSFUNCT EUSTACHIAN TUBE 01/05/2003 Dyslipidemia, goal LDL below 70 06/23/20 Overview: Per Lipid Taxonomy. Anticoagulation management encounter 03/2002 History of DVT (deep vein thrombosis) History of pulmonary embolism 02/23/2002 documented as of this encounter (statuses as of 04/09/2023) Resolved Problems Problem Noted Date Resolved Date [...] as of this encounter (statuses as of 04/09/2023) Immunizations Name Administration Dates Next Due COVID-19 mRNA, LNP-s, No Pre serve, 2-Dose Series (Pfizer) 08/29/2021,12/30/2020,12/07/2020 H1N1 2009 Influenza, IM 10/17/2009 Pneumococcal Conjugate Vacc, 13 Valent (Prevnar) 09/26/2015 [...] encounter Miscellaneous Notes * Telephone Encounter - Mayda Lilly RN - 04/09/2023 8:56 AM EDT Patient's , Shaq aware of below recommendations. Will notify PCP if no improvement. CM tofollow up within one week. * Telephone Encounter - Giorgio Salas DO - 04/08/2023 4:59 PM EDT Please have her increase her furosemide for the next 5 days to 40 mg. * Telephone Encounter - Mayda Lilly RN - 04/08/2023 12:26 PM EDT SITUATION: CCM Tier 3 BACKGROUND: Hx HF/s/p CVA ASSESSMENT: Spoke with patient's , Shaq today as patient was napping during time of call. Recent [facility] scale reports weight slightly increasing over the past weekend. Was 205.5 on 04/04 and is now 207.5 today. reports her SpO2 has stayed between 94% and 95%. She is using her oxygen as recommended. He does note increased edema in both lower legs. She is using her furosemide 20 mg daily as prescribed. He is asking if she should increase this. There is no DTP protocol established. Does note that her pain level has improved. She is taking all medications as prescribed. RECOMMENDATION: Advised to continue to monitor and report worsening symptoms to PCP. CM will discuss recommendations regarding above with PCP/Rec Therapist and notify patient with advice. Will plan to follow up within one week and PRN. Dr. Salas/Dr. Guzman - Please advise if recommended to increase furosemide with weight increase/edema at this time. Please prescribe DTP if appropriate. Thank you! Mayda Lilly RN General Internal Medicine [address] [address] documented in this encounter Plan of Treatment Upcoming Encounters Date Type Specialty Care Team Description 04/24/2023 Office Visit Family Medicine Giorgio Salas, DO [address] [place] [address] 05/28/2023 Office Visit Rheumatology Anton Zimmerman CRNP [address] [facility] [place] [address] 06/25/2023 Office Visit Pharmacy [facility], [facility] [address] [place] [address] 07/22/2023 Nurse Only Rheumatology Pf, Nurse Rheum [address] [place] [address] 07/23/2023 Office Visit Cardiology Ning King PA-C [address] [place] [address] Scheduled Procedures Name Priority Associated Diagnoses Date/Ti me COLONOSCOPY FLEXIBLE PROXIMAL DIAGNOSTIC Recall History of colon polyps Health Maintenance Due Date Last Done Comments Zoster Vaccines (2 of 3) 02/15/2015 12/21/2014 Albumin/Creatinine Ratio 09/29/2016 016, 09/24/2012, 06/13/2011 DTaP,Tdap,and Td Vaccines (2 - Td or Tdap) 06/13/2021 06/13/2011, 06/13/2011, 11/27/1999 COVID-19 Vaccine (4 - Pfizer series) 10/24/2021 08/29/2021, 12/30/2020, 12/07/2020 Depression Screening, Annual for Pts 12 and Over 04/09/2023 04/09/2022 Influenza Vaccine (FLU shot) (#1) 2023 05/01/2022, 09/11/2021, 09/11/2021, Additional history exists GFR 07/26/2023 01/24/2023, 12/17, 11/29/2022, Additional history exists CKD PHOS USE SMARTSET 37183 10/12/202309/20, 10/12/2019, 08/18/2018, Additional history exists TSH 01/04/2024 01/03/2023, 03/20, 01/17/2021, Additional history exists CKD HGB USE SMARTSET 94735 01/25/202401/24, 01/24/2023, 01/03/2023, Additional history exists DXA Scan 04/16/2029 04/16/2022, 02/16, 12/07/2013, Additional history exists COLONOSCOPY-EVERY 5 YRS AGES 18-100 Discontinued 03/03/2015, 06/27/2009, 03/20/2004 Pneumococcal Vaccine: 65+ Years Completed 09/26/2015, 06/23/2008 GARDASIL-HPV IMMUNIZATION SERIES Aged Out No longer [...] Documents on File Type Date Recorded Patient Corporation Secretary Expl anation Advance Directives and Living Will 05/01/2022 ADVANCE DIRECTIVE / LIVING WILL Power of Residential Leasing Manager 05/01/2022 POWER OF A TTORNEY Latest [...] the patient have Health Care Power of Residential Leasing Manager? No Care Teams Boats Renter Relationship Specialty Start Date End Date Giorgio Salas, DO [address] [place] [address] PCP - General Family Medicine 02/15/17 documented as of this encounter
--- OUTSIDE RECORDS SUMMARY | 2023-07-26 06:29 | External Medical Summary | Summary of Care ---
Author Name Unknown Organization [facility] Address [address] [facility] [place] [address] Phone [phone] Care Team Providers Care News Operations Manager Name Role Phone Giorgio Salas DO Primary Care Provider [phone] Reason for Referral * Ancillary Services (Within 10 days (routine)) - Authorized Specialty Diagnoses / Procedures Referred By Contangelica t Referred To Contact Audiology Diagnoses Sensorineural hearing loss (SNHL) of both ears Giorgio Salas DO [address] [place] [address] Referral ID Status Reason Start Date Expiration Date Visits Requested Visits Authorized [id number] Authorized Ancillary Services Required 04/24/[phone] Question Answer Referral Priority Within 10 days (routine) Reason for Referral: Hearing Loss Is this sudden hearing loss? No Reason for Visit * Reason Onset Date Comments Medication Administration 04/24/2023 Flu an d/or Pneumo Inj Encounter Details Date Type Department Care Team Description 04/24/2023 Office Visit Family Practice State Shree Ferguson [address] [place] [address] Giorgio Salas DO [address] [place] [address] Chronic heart failure with preserved ejection fraction (HCC)*; Need for vaccination for zoster; Need for prophylactic vaccination and inoculation against influenza; Sensorineural hearing loss (SNHL) of both ears; Need for vczhnhrcil-pwktckg-doidy ssis (Tdap) vaccine; Chronic right-sided heart failure (HCC); Dyslipidemia, goal LDL below 70; Hypothyroidism due to acquired atrophy of thyroid; Primary osteoarthritis of both knees Allergies Active Allergy Reactions Severity Noted Date Comments Salicylates Itching 11/27/1999 Aspirin Sulfa Antibiotics Other (Please comment) 1998 Unsure, happened during a hospital admission. documented as of this encounter (statuses as of 04/24/2023) Medications Medication Sig Dispensed Refills Start Date [...] 1 Tablet in the evening. 60 Tablet 01/15/2023 Active Lasmiditan Succinate 50 MG Oral Tablet (Reyvow) Take one at onset of migraine. Max 1 dose in 24 hours 10 Tablet 01/24/2023 Active Nystatin 466603 UNIT/GM External Cream Apply topically to affected area 2 times a day. To affacted area for two weeks. 15 g 2 01/25/2023 Active Levothyroxine Sodium 50 MCG Oral Tablet (Levoxyl) TAKE ONE TABLET BY MOUTH IN THE MORNING AT LEAST 30 MINUTES PRIOR TO BREAKFAST OR OTHER MEDICATIONS 90 Tablet 03/14/2023 Active Pantoprazole Sodium 40 MG Oral Tablet Delayed Release (Protonix) TAKE ONE TABLET BY MOUTH DAILY 90 Tablet 03/14/2023 Active DULoxetine HCl 60 MG Oral Capsule Delayed Release Particles (Cymbalta) Take 1 Capsule by mouth in the morning and 1 Capsule before bedtime. 60 Capsule 03/19/2023 Active Gabapentin 300 MG Oral Capsule (Neurontin) Take 1 Capsule by mouth in the morning and 1 Capsule at noon and 1 Capsule before bedtime. 90 Capsule 03/19/2023 Active traMADol HCl 50 MG Oral [...] 180 days 1 Each 0 04/24/2023 Active Ukvkqis-Jdbmfp-Nuyld Pertussis 5-2.5-18.5 LF-MCG/0.5 Suspension Prefilled Syringe (Boostrix)Indication s:Need for woinfdbobw-yxdjgxn-s ertussis (Tdap) vaccine Inject 0.5 mL into a large muscle once for 1 dose. 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 VARIANTS OF MIGRAINE WITH INTRACTABLE NE GRAINE, SO STATED 10/23/2005 History of colonic [...] as of this encounter (statuses as of 04/24/2023) Resolved Problems Problem Noted Date Resolved Date [...] as of this encounter (statuses as of 04/24/2023) Immunizations Name Administration Dates Next Due COVID-19 [...] Sign Reading Time Taken Comments Blood Pressure 114/62 04/24/2023 12:55 PM EDT Pulse 70 04/24/2023 12:55 PM EDT Temperature 36.8 C (98.2 F) 04/24/2023 12:55 PM E DT Respiratory Rate 18 04/24/2023 12:55 PM EDT Oxygen Saturation 94% 04/24/2023 12:55 PM EDT Inhaled Oxygen Concentration - - Weight - [...] No 10/11/2019 documented as of this encounter Patient Instructions * Patient Instructions* Jayla Liu LPN - 04/24/2023 12:57 PM EDT ~~PATIENT INSTRUCTIONS FOR SHINGRIX VACCINE~~ Possible side effects of Shingrix vaccine, (shingles), are usually mild and can include: 1. Soreness or redness at injection site 2. Low grade fever 3. Body aches You may use a fever / pain reducing medication as needed for these symptoms. LET YOUR DOCTOR KNOW IMMEDIATELY IF YOU HAVE DIFFICULTY BREATHING OR SWALLOWING, EXPERIENCE ITCHINGOF FEET OR HANDS, HAVE SWELLING OF EYES, FACE OR INSIDE OF NOSE. documented in this encounter Progress Notes * Giorgio Salas, - 04/24/2023 1:18 PM EDT Subjective: Anh Breaux is a 83 year old female. Chief Complaint Patient presents with Medication Administration Flu and/or Pneumo Inj HPI: Pt here in follow-up. Stroke discussed. Saw neurology and no changes. questions some slurred speech. asks about her having tremors. Sometimes happens with eating. Just trembles. It has been for 8-10 months. We discussed possible correlation to medication. Hearing loss discussed. Pain has some bad days. Gets shots and it helps for about a month. Increase in gabapentin and cymbalta have helped she feels. Every once in a while takes an extra Tramadol. She also has days she takes none. Overall it sounds like progress with her pain. PMHx, meds, and allergies reviewed Patient Active Problem List Diagnosis Code Anticoagulation management encounter Z51.81, Z79.01 History of DVT (deep vein thrombosis) Z86.718 History of pulmonary embolism Z86.711 Dyslipidemia, goal LDL below 70 E78.5 DYSFUNCT EUSTACHIAN TUBE H69.80 terminal manager current use of anticoagulant therapy Z79.01 History of colonic polyps Z86.010 Irritable bowel syndrome K58.9 VARIANTS OF MIGRAINE WITH INTRACTABLE MIGRAINE, SO STATED G43.819 Dyslipidemia E78.5 Dependence on supplemental oxygen Z99.81 Hypothyroidism E03.9 Hypoxemia R09.02 Asthma, mild persistent J45.30 GERD (gastroesophageal reflux disease) K21.9 Family history of prothrombin gene mutation Z83.2 Prothrombin [id number] mutation ([facility]) D68.52 History of positive PPD, untreated R76.11 Osteoarthrosis involving shoulder region M19.019 Enthesopathy of hip M76.899 Nocturnal hypoxia G47.34 Primary osteoarthritis of both knees M17.0 Osteoarthrosis, localized, primary, involving lower leg M17.10 Controlled substance agreement signed Z79.899 Body mass index (BMI) of 40.0 to 44.9 in adult ([facility]) Z68.41 Trochanteric bursitis of both hips M70.61, M70.62 Coronary artery disease involving northway coronary artery of northway heart without angina pectoris I25.10 HTN, goal below 130/80 I10 MEDICATION USE AGREEMENT [id number] Impingement syndrome of both shoulders M75.41, M75.42 DDD (degenerative disc disease), lumbar M51.36 Long QT interval R94.31 Unspecified atrial fibrillation ([facility]) I48.91 Hypertensive kidney disease with stage 3a chronic kidney disease I12.9, N18.31 Major depressive disorder, recurrent, unspecified ([facility]) F33.9 Lumbar radiculopathy M54.16 B12 deficiency E53.8 Chronic kidney disease, stage 3a ([facility]) N18.31 Recurrent major depressive disorder, in partial remission ([facility]) F33.41 Chronic right-sided heart failure ([facility]) I50.812 Food insecurity Z59.41 Chronic heart failure with preserved ejection fraction ([facility]) I50.32 Current Outpatient Medications Medication Sig Dispense Refill OXYGEN Use 2 Liters per minute via nasal cannula while sleeping 1 each 99 VITAMIN D 1000 UNITS PO CAPS One capsule daily 30 Cap 5 acetaminophen (TYLENOL) 325 MG Tablet Take 2 Tablets by mouth every 6 hours as needed for Pain. albuterol sulfate (PROVENTIL) (2.5 MG/3ML) 0.083% nebulizer solution Inhale 1 Vial via nebulizer every 4 hours as needed for Wheezing. 120 mL 5 Vitron-C 65-125 MG Oral Tablet (Iron-Vitamin C) [...] 1 Puff before bedtime. 60 Each 11 Montelukast Sodium 10 MG Oral Tablet (Singulair) Take 1 Tablet by mouth in the morning. 90 Tablet 1 Lidocaine 5 % External Patch (Lidoderm) Place [...] in 24 hours 10 Tablet 5 Nystatin 308305 UNIT/GM External Cream Apply topically to affected [...] 1 Capsule before bedtime. 90 Capsule 5 traMADol HCl 50 MG Oral Tablet (Ultram) Take 1 Tablet by mouth 2 times a day as needed for Pain, Moderate. 60 Tablet 0 No current facility-administered medications for this visit. Review of patient's allergies indicates: Allergen Reactions Salicylates Itching Aspirin Sulfa Antibiotics Other (Please comment) Unsure, happened during a hospital admission. OBJECTIVE: BP 114/62 | Pulse 70 | Temp 36.8 C (98.2 F) (Tympanic) | Resp 18 | SpO2 94% Estimated body mass index is 34.11 kg/m as calculated from the following: Height as of 04/09/22: 1.651 m (5' 5"). Weight as of 03/27/23: 93 kg (205 lb). BP Readings from Last 3 Encounters: 04/24/23 114/62 01/24/23 126/74 01/24/23 126/74 Wt Readings from Last 3 Encounters: 03/27/23 93 kg (205 lb) 01/24/23 98.9 kg (218 lb) 01/24/23 96.7 kg (213 lb 3.2 oz) ROS: Negative except for above PHYSICAL EXAM: General: alert, healthy, and no distress Head: Normocephalic, No masses, lesions, tenderness or abnormalities Heart: regular rate & rhythm, LYNN 2/ Lungs: chest symmetric with normal AP diameter, no chest deformities noted, no chest wall tenderness, lungs clear to auscultation ASSESSMENT/Plan Chronic heart failure with preserved ejection fraction (HCC) (Primary) Need for vaccination for zoster - Zoster Vac Recomb Adjuvanted 50 MCG/0.5ML Intramuscular Suspension Reconstituted (Shingrix); Inject 0.5 mL into a large muscle now and repeat dose in 60 to 180 days Need for prophylactic vaccination and inoculation against influenza - INFLUENZA VACC, QUAD, HIGH DOSE (FLUZONE HD) Sensorineural hearing loss (SNHL) of both ears - AUDIOLOGY REFERRAL OP Need for pfnpnxeape-hfjbsxv-xvorjpxpf (Tdap) vaccine - Oxmxhyd-Sifccw-Dsvfe Pertussis 5-2.5-18.5 LF-MCG/0.5 Suspension Prefilled Syringe (Boostrix); Inject 0.5 mL into a large muscle once for 1 dose. As directed Chronic right-sided heart failure (HCC) Dyslipidemia, goal LDL below 70 Hypothyroidism due to acquired atrophy of thyroid Primary osteoarthritis of both knees I spent a total of 30 minutes on the date of service in preparation, delivery, and documentation ofthe care provided to this patient, excluding any time spent on the performance of any procedure or separately billable services. Making progress with chronic pain. Tremors could be related to medications that are helping but it is not bad enough currently to pull back on them. The above was discussed and understanding was expressed. Giorgio Salas DO * Jayla Liu LPN - 04/24/2023 12:58 PM EDT PRE - ADMINISTRATION DOCUMENTATION Are you experiencing any cold symptoms or fever? No Have you had Guillain-Lenox Syndrome (an illness that causes paralysis) within the last 6 weeks? No Have you had the flu shot in the past? YES Have you ever had a reaction to the flu shot? No Jayla Liu LPN, 04/24/2023 12:58 PM Immunization Administration Documentation Time Out Procedure Performed: Yes Patient Identified (Ask Name/Date of ): Yes Does the patient have a fever greater than 101 degrees today? No Patient allergic to latex? No VFC Stock: No Immunization(s) verified: Yes, Immunization Name: Flu, VIS Sheet(s) given: Yes Verified Side and Site: Yes Verified Shot(s) with Parent(s)/Patient: Yes documented in this encounter Nursing Notes * Jayla Liu LPN - 04/24/2023 12:55 PM EDT Claribel Breaux presents for 6 month recheck. Medications & HM reviewed. documented in this encounter Plan of Treatment Upcoming Encounters Date Type Specialty Care Team Description 05/28/2023 Office Visit Rheumatology [facility] Zimmerman CRNP [address] [facility] [place] [address] 06/25/2023 Office Visit Pharmacy Rhonda Rubi [address] [place] [address] 07/22/2023 Nurse Only Rheumatology Pf, Nurse Rheum [address] [place], [place] [address] 07/23/2023 Office Visit Cardiology Ning King PA-C [address] [place] [address] 11/22/2023 Office Visit Family Medicine Giorgio Salas, DO [address] [place], [place] [address] Scheduled Procedures Name Priority Associated Diagnoses Date/Ti me COLONOSCOPY FLEXIBLE PROXIMAL DIAGNOSTIC Recall History of colon polyps Scheduled Referrals Name Type Priority Associated Diagnoses Orde r Schedule AUDIOLOGY REFERRAL OP Referral Within 10 days (routine) Sensorineural hearing loss (SNHL) of both ears Ordered: 04/24/2023 Health Maintenance Due Date Last Done Comments Albumin/Creatinine Ratio 09/29/2016 016, 09/24/2012, 06/13/2011 COVID-19 Vaccine (4 - Pfizer series) 10/24/2021 08/29/2021, 12/30/2020, 12/07/2020 Depression Screening, Annual for Pts 12 and Over 04/09/2023 04/09/2022 Zoster Vaccines (3 of 3) 06/19/2023 04/24/2023, 05/0 12/2014 GFR 07/26/2023 01/24/2023, 12/17, 11/29/2022, Additional history exists CKD PHOS USE SMARTSET 19798 10/12/202309/20, 10/12/2019, 08/18/2018, Additional history exists TSH 01/04/2024 01/03/2023, 03/20, 01/17/2021, Additional history exists CKD HGB USE SMARTSET 81110 01/25/202401/24, 01/24/2023, 01/03/2023, Additional history exists DXA [...] as of this encounter Visit Diagnoses Diagnosis Chronic heart failure with preserved ejection fraction (HCC)- Primary Need for vaccination for zoster Need for prophylactic vaccination and inoculation against other viral diseases Need for prophylactic vaccination and inoculation against influenza Sensorineural hearing loss (SNHL) of both ears Need for mdducwnjlb-rvyyaip-kltgjhlcq (Tdap) vaccine Need for prophylactic vaccination with combined goycqzbmqe-mdplzbb-lyvskhoby (DTP) vaccine Chronic right-sided heart failure (HCC) Congestive heart failure, unspecified Dyslipidemia, goal LDL below 70 Other and unspecified hyperlipidemia Hypothyroidism due to acquired atrophy of thyroid Primary osteoarthritis of both knees Primary localized osteoarthrosis, lower leg documented in this encounter Advance Directives Documents on File Type Date Recorded 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 Question Answer Comments Discussion of Advance Directives occurred with: Not Discussed Does the patient have a Living Will? No Does the patient have Health Care Power of Concrete Mixer Operator? No Care Teams News Operations Manager Relationship Specialty Start Date End Date Giorgio Salas, DO [address] [place] [address] PCP - General Family Medicine 02/15/17 documented as of this encounter
--- OUTSIDE RECORDS SUMMARY | 2023-07-26 06:29 | External Medical Summary | Summary of Care ---
Author Name Unknown Organization [facility] Address [address] [place] [address] Phone [phone] Care Team Providers Care Railroad Detective Name Role Phone IsidoroGiorgio ontiveros Primary Care Provider [phone] Reason for Visit * Reason Onset Date Comments case management 03/29/2023 Encounter Details Date Type Department Care Team Description 03/29/2023 Occ Therapist Telephone General Internal Medicine [facility] [address] [place], [place] [id number] Mayda Lilly, RN [address] [place] [address] case management Allergies Active Allergy Reactions Severity Noted Date Comments Salicylates Itching 11/27/1999 Aspirin Sulfa Antibiotics Other (Please comment) 1998 Unsure, happened during a hospital admission. documented as of this encounter (statuses as of 04/02/2023) Medications Medication Sig Dispensed Refills Start Date [...] hours 10 Tablet 5 01/24/2023 Active Nystatin 580745 UNIT/GM External Cream Apply topically to affected area 2 times a day. To affacted area for two weeks. 15 g 2 01/25/2023 Active traMADol HCl 50 MG Oral Tablet (Ultram)Indications: Controlled substance agreement signed,MEDICATION USE AGREEMENT,Primary osteoarthritis of both shoulders Take 1 Tablet by mouth 2 times a day as needed for Pain, Moderate. 60 Tablet 0 03/01/2023 Active Levothyroxine Sodium 50 MCG Oral Tablet [...] before bedtime. 90 Capsule 5 03/19/2023 Active documented as of this encounter (statuses as of 04/02/2023) Active Problems Problem Noted Date Chronic heart [...] AGREEMENT 10/29/2017 Coronary artery disease invo lving [place] coronary artery of [place] heart without angina pectoris 10/28/2017 HTN, goal [...] History of positive PPD, untreated 08/10 Prothrombin [id number] mutation 02/16/2013 Overview: heterozygous for the I74131d mutation Family history of prothrombin gene mutat ion 02/11/2013 GERD (gastroesophageal reflux disease) 0 09/24/2012 Asthma, mild persistent 07/19/2011 Hypoxemia 12/29/2010 Overview: Oxygen required Hypothyroidism 11/15/2010 Dependence on supplemental oxygen 2009 Nocturnal hypoxia 01/06/2010 Overview: Seen on overnight oximetry Dyslipidemia 08/08/2009 Overview: Per Lipid Taxonomy. VARIANTS OF MIGRAINE WITH INTRACTABLE MA GRAINE, SO STATED 10/23/2005 History of colonic polyps 02/23/2004 Overview: 03/03/15: ischemic colitis of the sigmoid colon repeat 5 years 06/27/09: normal repeat 5 years 03/22/04: seen on colonsocopy, repeat 2009 Irritable bowel syndrome 02/23/2004 USP current use of anticoagulant t herapy 09/23/2003 DYSFUNCT EUSTACHIAN TUBE 01/05/2003 Dyslipidemia, goal LDL below 70 06/23/20 Overview: Per Lipid Taxonomy. Anticoagulation management encounter 03/2002 History of DVT (deep vein thrombosis) History of pulmonary embolism 02/23/2002 documented as of this encounter (statuses as of 04/02/2023) Resolved Problems Problem Noted Date Resolved Date [...] as of this encounter (statuses as of 04/02/2023) Immunizations Name Administration Dates Next Due COVID-19 mRNA, LNP-s, No Pre serve, 2-Dose Series (Pfizer) 08/29/2021,12/30/2020,12/07/2020 H1N1 2009 Influenza, IM 10/17/2009 Pneumococcal Conjugate Vacc, 13 Valent (Prevnar) 09/26/2015 Pneumococcal Polysaccharide PPV23 (Pneumovax) 06/23/2008 Seasonal Influenza Virus Vac cine, Unspecified Formulation 09/11/2021,05/26/2020,06/09/2019,06/10,05/14/2017,07/02/2016,06/09/2015 ,04/29/2014,05/14/2013,06/06/2012,05/20,06/05/2010,10/17/2009, 8,06/29/2006,07/29/2000 Seasonal Influenza, Quadriva lent Hd (Fluzone Hd) 05/01/2022,09/11/2021 Seasonal Influenza, Quadriva lent, No Preserve, 6 Mons & Above, IM 06/10/2018,05/14/2017 Seasonal Influenza, Quadriva lent, No Preserve, Adjuvanted, 65+ Yrs, IM 05/26/2020 Seasonal Influenza, Quadriva lent, No Preserve, IM [...] Telephone Encounter - Mayda Lilly RN - 04/02/2023 8:49 AM EDT SITUATION: Recheck BACKGROUND: Recent decreased SpO2 w/ increased sob ASSESSMENT: Spoke with patient today in follow up. [facility] scale weight 205.5 lbs today. Patient reports her breathing is at baseline. States her SpO2 stayed between 94% and 97% over the weekend. Checked this morning during phone call with CM and was 95%. Denies any worsening shortness of breath, fever, cough. Does have audible wheeze over the phone but reports "normal". Using her oxygen at night as prescribed. D enies worsening LE edema/swelling. Declined office visit at this time. Denies further needs. RECOMMENDATION: Advised patient to notify PCP if worsening symptoms occur. Will plan to follow up again within one week. Mayda Lilly RN General Internal Medicine [address] [address] * Telephone Encounter - Giorgio Salas DO - 04/01/2023 4:43 PM EDT Please check in and if no improvement schedule acute visit * Telephone Encounter - Mayda Lilly RN - 04/01/2023 11:26 AM EDT 1. Follow-up Routine 2. Attempted Phone Call First Attempt 3. Call Outcome Unable to Leave Message 4. Plan To attempt another outreach * Telephone Encounter - Mayda Lilly RN - 03/29/2023 3:54 PM EDT SITUATION: CM Tier 3 follow up BACKGROUND: Hx HF/s/p CVA ASSESSMENT: Spoke with patient in follow up. Had reported feeling more short of breath with activity than usualtoday. SpO2 90% per patient report. States she is wearing her oxygen at 2 lpm via nasal canula at bedtime. Denies any increased LE swelling. [facility] scale weight today was stable at 205.9 lbs. Denies any coughing or exposure to anyone who is sick but has been feeling more tired than usual. Taking all medications as prescribed. States that the rainy weather makes her head "feel out of whack"-reporting more dizziness when it rains. No fevers reported. RECOMMENDATION: Advised patient to wear her oxygen now, recheck oxygen level and continue to monitor for worsening symptoms. CM will notify PCP and plan to follow up with patient on Saturday. Advised patient if symptoms worsen, she should go to urgent care of ED for further evaluation. Dr. Salas- ASHLEY. Please advise any further recommendations. Thank you. Mayda Lilly RN General Internal Medicine [facility] [address] [place] [address] documented in this encounter Plan of Treatment Upcoming Encounters Date Type Specialty Care Team Description 04/24/2023 Office Visit Family Medicine Giorgio Salas, DO [address] [place] [address] 05/28/2023 Office Visit Rheumatology Anton Zimmerman CRNP [address] [facility] [place] [address] 06/25/2023 Office Visit Pharmacy Rubi, [facility] [address] [place] [address] 07/22/2023 Nurse Only Rheumatology Pf, Nurse Rheum [facility] [place] [address] 07/23/2023 Office Visit Cardiology Ning King PA-C [address] [place] [address] Scheduled Procedures Name Priority Associated Diagnoses Date/Ti [...] Additional history exists CKD PHOS USE SMARTSET 21714 10/12/202309/20, 10/12/2019, 08/18/2018, Additional history exists TSH 01/04/2024 01/03/2023, 03/20, 01/17/2021, Additional history exists CKD HGB USE SMARTSET 53352 01/25/202401/24, 01/24/2023, 01/03/2023, Additional history exists DXA [...] Documents on File Type Date Recorded Patient Share Dairy Farmer Expl anation Advance Directives and Living Will 05/01/2022 ADVANCE DIRECTIVE / LIVING WILL Power of Reference Data Expert 05/01/2022 POWER OF A TTORNEY Latest Code Status on File Code Status Date Activated Date Inactivated Comments Full Code 10/11/2019 7:48 PM 10/12/2019 8:11 PM This order reflects the patients wishes and were consensually agreed upon. Question Answer Comments Discussion of Advance Directives occurred with: Not Discussed Does the patient have a Living Will? No Does the patient have Health Care Power of Reference Data Expert? No Care Teams Railroad Detective Relationship Specialty Start Date End Date Giorgio Salas, DO [address] [place] [address] PCP - General Family Medicine 02/15/17 documented as of this encounter
--- OUTSIDE RECORDS SUMMARY | 2023-07-26 06:29 | External Medical Summary | Summary of Care ---
Author Name Unknown Organization [facility] Address [address] [place] [address] Phone [phone] Care Team Providers Care Senior Unix Administrator Name Role Phone Giorgio Salas Primary Care Provider [phone] Reason for Visit * Reason Comments case management Encounter Details Date Type Department Care Team Description 04/19/2023 Last PullerLicensed Acupuncturist Internal Medicine [facility] [address] [place] [address] Mayda Lilly, RN [address] [place] [address] Medical home patient encounter* Allergies Active Allergy Reactions Severity Noted Date Comments Salicylates Itching 11/27/1999 Aspirin Sulfa Antibiotics Other (Please comment) 1998 Unsure, happened during a hospital admission. 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 Anticoagulation management encounter 03/2002 History of DVT (deep vein thrombosis) History of pulmonary embolism 02/23/2002 documented as of this encounter (statuses as of 04/19/2023) Resolved Problems Problem Noted Date Resolved Date [...] therapy 02/28/2011 05/16/2017 Diverticulitis of colon 04/27/2010 11/10/20 20 Chronic kidney disease, stage 3 unspecified [...] as of this encounter (statuses as of 04/19/2023) Immunizations Name Administration Dates Next Due COVID-19 mRNA, LNP-s, No Pre serve, 2-Dose Series (Memrise) 08/29/2021,12/30/2020,12/07/2020 H1N1 2009 Influenza, IM 10/17/2009 Pneumococcal [...] as of this encounter Progress Notes * Mayda Lilly RN - 04/19/2023 10:38 AM EDT Last Puller Progress Note: Date: 04/19/23 Assigned Patient Tier: 3 Connected with patient's /caregiver, Shaq via telephone. Verified patient name/. Advised patient that call is being recorded for quality and training purposes. Assessment: Noted the following: reports patient is doing okay. Not as tired and not napping as often. Weights have been stable per [facility] scale-weight today was 206.8lbs. Denies any worsening shortness of breath, cough, chest pain, fever, n/v/d/c, urinary symptoms. Does continue to have mild swelling of both lower legs but this is not worsening. SpO2 averages 93%-using oxygen at bedtime as prescribed. No pain reported today-following with [facility] pain clinic and rheumatology. Reviewed medications- denies any changes since last reviewed on 03/27 at specialty appointment. Next PCP visit scheduled for 04/24/23. Reviewed red flags. Advised to notify PCP of any worsening symptoms. Will plan to follow up again within 2 weeks. Did you receive an alert for an annual wellness visit? No Is this call for a hospital, [place] [facility] or rehab facility discharge to home? No Medication Reconciliation: Medication Reconciliation completed: yes Review of Current goals: Discussed the following patient-centered CM goals with the patient during this discussion: -HEART FAILURE: Achieve successful management of heart failure. -Status: On Track Weights have been stable-206.8 lbs per [facility] scale. Taking medications as prescribed. Follows with cardiology. -Pain: Patient will have pain well managed -Status: On Track No pain reported today. Follows with rheumatology and [facility] pain clinic. Taking medications as prescribed. -SAFETY: Prevent falls or injuries -Status: On Track No falls reported. Ambulates independently. COPD Patient: No CHF Patient: YES Scale: YES, Current Weight: 206.8lbs, Reinforced fluid restriction and low sodium diet. , Swelling: minimal bilateral LE edema/swelling-not worsening. CM Plan: Reviewed 3 Red Flags with patient. Advised to call CM with any of the following: Red Flag 1: worsening edema/swelling, Red Flag 2: increased weight, or Red Flag 3: increased shortness of breath Remote Patient Monitoring: Device Currently in place: [facility] scale. Reviewed readings. Interventions, if needed: N/A Plan for Future Contacts: Plan to follow up within 2 weeks to check progress on the following goals/needs as above. Planned contacts from the following parties will occur this week: PCP office visit as additional contacts per workflow. Advancement/Closure Plan: Keep patient at current Tier with reassessment per workflow. Patient provided CM contact information and encouraged to call with any changes in condition. SNP Member? No PCP Notified of enrollment in CM/HM program: Yes Is Provider in agreement with POC? Yes Mayda Lilly, [facility] Outpatient Case Management documented in this encounter Plan of Treatment Upcoming Encounters Date Type Specialty Care Team Description 04/24/2023 Office Visit Family Medicine Giorgio Salas, DO [address] [place] [address] 05/28/2023 Office Visit Rheumatology Anton Zimmerman CRNP [address] [address] [place] [address] 06/25/2023 Office Visit Pharmacy [facility] [address] [place] [address] 07/22/2023 Nurse Only Rheumatology Pf, Nurse Rheum [address] [facility] [place] [address] 07/23/2023 Office Visit Cardiology Ning King PA-C [address] [place] [address] Scheduled Procedures Name Priority Associated Diagnoses Date/Ti [...] Additional history exists CKD PHOS USE SMARTSET 93823 10/12/202309/20, 10/12/2019, 08/18/2018, Additional history exists TSH 01/04/2024 01/03/2023, 03/20, 01/17/2021, Additional history exists CKD HGB USE SMARTSET 35754 01/25/202401/24, 01/24/2023, 01/03/2023, Additional history exists DXA [...] Documents on File Type Date Recorded Patient Carrier Washer Expl anation Advance Directives and Living Will 05/01/2022 ADVANCE DIRECTIVE / LIVING WILL Power of Electrical Continuity Inspector 05/01/2022 POWER OF A TTORNEY Latest Code Status on File Code Status Date Activated Date Inactivated Comments Full Code 10/11/2019 7:48 PM 10/12/2019 8:11 PM This order reflects the patients wishes and were consensually agreed upon. Question Answer Comments Discussion of Advance Directives occurred with: Not Discussed Does the patient have a Living Will? No Does the patient have Health Care Power of Electrical Continuity Inspector? No Care Teams Senior Unix Administrator Relationship Specialty Start Date End Date Giorgio Salas, DO [address] [facility] [place] [address] PCP - General Family Medicine 02/15/17 documented as of this encounter
--- OUTSIDE RECORDS SUMMARY | 2023-07-26 06:29 | External Medical Summary | Summary of Care ---
Author Name Unknown Organization [facility] Address [address] [place] [address] Phone [phone] Care Team Providers Care Train Inspector Name Role Phone IsidoroGiorgio ontiveros Primary Care Provider [phone] Reason for Visit * Reason Onset Date Comments case management 04/11/2023 Encounter Details Date Type Department Care Team Description 04/11/2023 Bottom Buffer Telephone General Internal Medicine [facility] [address] [place], [place] [id number] Mayda Lilly, RN [address] [place] [address] case management Allergies Active Allergy Reactions Severity Noted Date Comments Salicylates Itching 11/27/1999 Aspirin Sulfa Antibiotics Other (Please comment) 1998 Unsure, happened during a hospital admission. documented as of this encounter (statuses as of 04/11/2023) Medications Medication Sig Dispensed Refills Start Date [...] hours 10 Tablet 5 01/24/2023 Active Nystatin 684224 UNIT/GM External Cream Apply topically to affected [...] as of this encounter (statuses as of 04/11/2023) Active Problems Problem Noted Date Chronic heart [...] AGREEMENT 10/29/2017 Coronary artery disease invo lving [place] coronary artery of [place] heart without angina pectoris 10/28/2017 HTN, goal [...] History of positive PPD, untreated 08/10 Prothrombin [id number] mutation 02/16/2013 Overview: heterozygous for the [id number] mutation Family history of prothrombin gene mutat ion 02/11/2013 GERD (gastroesophageal reflux disease) 0 09/24/2012 Asthma, mild persistent 07/19/2011 Hypoxemia 12/29/2010 Overview: Oxygen required Hypothyroidism 11/15/2010 Dependence on supplemental oxygen 2009 Nocturnal hypoxia 01/06/2010 Overview: Seen on overnight oximetry Dyslipidemia 08/08/2009 Overview: Per Lipid Taxonomy. VARIANTS OF MIGRAINE WITH INTRACTABLE [place] GRAINE, SO STATED 10/23/2005 History of colonic polyps 02/23/2004 Overview: 03/03/15: ischemic colitis of the sigmoid colon repeat 5 years 06/27/09: normal repeat 5 years 03/22/04: seen on colonsocopy, repeat 2009 Irritable bowel syndrome 02/23/2004 snf current use of anticoagulant t herapy 09/23/2003 DYSFUNCT EUSTACHIAN TUBE 01/05/2003 Dyslipidemia, goal LDL below 70 06/23/20 Overview: Per Lipid Taxonomy. Anticoagulation management encounter 03/2002 History of DVT (deep vein thrombosis) History of pulmonary embolism 02/23/2002 documented as of this encounter (statuses as of 04/11/2023) Resolved Problems Problem Noted Date Resolved Date [...] as of this encounter (statuses as of 04/11/2023) Immunizations Name Administration Dates Next Due COVID-19 [...] Telephone Encounter - Mayda Lilly RN - 04/11/2023 11:02 AM EDT SITUATION: CCM Tier 3 f/u - IVR alert BACKGROUND: Hx HF and CVA ASSESSMENT: Called and spoke with patient's /caregiver, Shaq regarding IVR alert- answered yes to all HF IVR questions. He reports that they "must've hit the wrong button". Denies any increased swelling/edema, shortness of breath, nausea, fever or missed medications. [facility] scale weight today was 204.2 lbs. Denies further issues at present time. RECOMMENDATION: Advised to notify PCP of any worsening symptoms. Will plan to follow up next week for goal review. Mayda Lilly RN General Internal Medicine [facility] [address] [facility] [address] documented in this encounter Plan of Treatment Upcoming Encounters Date Type Specialty Care Team Description 04/24/2023 Office Visit Family Medicine Giorgio Salas, DO [address] [facility] [place] [address] 05/28/2023 Office Visit Rheumatology Anton Zimmerman CRNP [address] [place] [address] [place] [address] 06/25/2023 Office Visit Pharmacy [facility] [address] [place] [address] 07/22/2023 Nurse Only Rheumatology Pf, Nurse Rheum [facility] [place] [address] 07/23/2023 Office Visit Cardiology Ning King PA-C [address] [place] [address] Scheduled Procedures Name Priority Associated Diagnoses Date/Ti [...] Additional history exists CKD PHOS USE SMARTSET 68314 10/12/202309/20, 10/12/2019, 08/18/2018, Additional history exists TSH 01/04/2024 01/03/2023, 03/20, 01/17/2021, Additional history exists CKD HGB USE SMARTSET 50855 01/25/202401/24, 01/24/2023, 01/03/2023, Additional history exists DXA [...] Documents on File Type Date Recorded Patient Sales Agent Fire Insurance Expl anation Advance Directives and Living Will 05/01/2022 ADVANCE DIRECTIVE / LIVING WILL Power of Cloud Administrator 05/01/2022 POWER OF A TTORNEY Latest Code Status on File Code Status Date Activated Date Inactivated Comments Full Code 10/11/2019 7:48 PM 10/12/2019 8:11 PM This order reflects the patients wishes and were consensually agreed upon. Question Answer Comments Discussion of Advance Directives occurred with: Not Discussed Does the patient have a Living Will? No Does the patient have Health Care Power of Cloud Administrator? No Care Teams Train Inspector Relationship Specialty Start Date End Date Giorgio Salas, DO [address] [place] [address] PCP - General Family Medicine 02/15/17 documented as of this encounter
--- OUTSIDE RECORDS SUMMARY | 2023-07-26 06:29 | External Medical Summary | Summary of Care ---
Author Name Unknown Organization [facility] Address [address] [place] [address] Phone [phone] Care Team Providers Care Pneumatic Press Hand Name Role Phone Mushtaq Gutiérrez DO Primary Care Provider [phone] Reason for Visit * Reason Onset Date Comments Medication Refill 04/03/2023 Encounter Details Date Type Department Care Team Description 04/03/2023 Refill Family Practice [facility] [place] [address] [facility] [place] [address] Mushtaq Gutiérrez DO [address] [place] [address] MEDICATION USE AGREEMENT; Controlled substance agreement signed; Primary osteoarthritis of both shoulders Allergies Active Allergy Reactions Severity Noted Date Comments Salicylates Itching 11/27/1999 Aspirin Sulfa Antibiotics Other (Please comment) 1998 Unsure, happened during a hospital admission. documented as of this encounter (statuses as of 04/03/2023) Medications Medication Sig Dispensed Refills Start Date [...] hours 10 Tablet 5 01/24/2023 Active Nystatin 726559 UNIT/GM External Cream Apply topically to affected [...] Pain, Moderate. 60 Tablet 0 04/03/2023 Active traMADol HCl 50 MG Oral Tablet (Ultram)Indications :Controlled substance agreement signed,MEDICATION USE AGREEMENT,Primary osteoarthritis of both shoulders Take 1 Tablet by mouth 2 times a day as needed for Pain, Moderate. 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 Anticoagulation management encounter 03/2002 History of DVT (deep vein thrombosis) History of pulmonary embolism 02/23/2002 documented as of this encounter (statuses as of 04/03/2023) Resolved Problems Problem Noted Date Resolved Date [...] as of this encounter (statuses as of 04/03/2023) Immunizations Name Administration Dates Next Due COVID-19 mRNA, LNP-s, No Pre serve, 2-Dose Series (Spotivate) 08/29/2021,12/30/2020,12/07/2020 H1N1 2009 Influenza, IM 10/17/2009 Pneumococcal [...] Telephone Encounter - Mushtaq Gutiérrez DO - 04/03/2023 4:48 PM EDTSigned Prescriptions: Disp Refills traMADol HCl 50 MG Oral Tablet (Ultram) 60 Tab*0 Sig: Take 1 Tablet by mouth 2 times a day as needed for Pain, Moderate. Authorizing Provider: MUSHTAQ GUTIÉRREZ * Telephone Encounter - Anabel Ramirez LPN - 04/03/2023 4:46 PM EDT Provider to address: Pending Prescriptions: Disp Refills traMADol HCl 50 MG Oral Tablet (Ultram) 60 Tab*0 Sig: Take 1 Tablet by mouth 2 times a day as needed for Pain, Moderate. 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 therapy Z79.01 History of colonic polyps Z86.010 Irritable bowel syndrome K58.9 VARIANTS OF MIGRAINE WITH INTRACTABLE MIGRAINE, SO STATED G43.819 Dyslipidemia E78.5 Dependence on supplemental oxygen Z99.81 Hypothyroidism E03.9 Hypoxemia R09.02 Asthma, mild persistent J45.30 GERD (gastroesophageal reflux disease) K21.9 Family history of prothrombin gene mutation Z83.2 Prothrombin I34352F mutation ([facility]) D68.52 History of positive PPD, untreated R76.11 Osteoarthrosis involving shoulder region M19.019 Enthesopathy of hip M76.899 Nocturnal hypoxia G47.34 Primary osteoarthritis of both knees M17.0 Osteoarthrosis, localized, primary, involving lower leg M17.10 Controlled substance agreement signed Z79.899 Body mass index (BMI) of 40.0 to 44.9 in adult ([facility]) Z68.41 Trochanteric bursitis of both hips M70.61, M70.62 Coronary artery disease involving [place] coronary artery of [place] heart without angina pectoris I25.10 HTN, goal below 130/80 I10 MEDICATION USE AGREEMENT [id number] Impingement syndrome of both shoulders M75.41, M75.42 DDD (degenerative disc disease), lumbar M51.36 Long QT interval R94.31 Unspecified atrial fibrillation ([facility]) I48.91 Hypertensive kidney disease with stage 3a chronic kidney disease I12.9, N18.31 Major depressive disorder, recurrent, unspecified ([facility]) F33.9 Lumbar radiculopathy M54.16 B12 deficiency E53.8 Chronic kidney disease, stage 3a ([facility]) N18.31 Recurrent major depressive disorder, in partial remission ([facility]) F33.41 Chronic right-sided heart failure ([facility]) I50.812 Food insecurity Z59.41 Chronic heart failure with preserved ejection fraction ([facility]) I50.32 Labs: Lab Results Component Value Date/Time [...] A1C - [facility] 5.6 12/03/2008 01:39 PM Reason for Call: Medication Refill Contact: Telephone Call Contact Type: Medication Total Time including non face to face (minutes): 5 documented in this encounter Plan of Treatment Upcoming Encounters Date Type Specialty Care Team Description 04/24/2023 Office Visit Family Medicine uMshtaq Gutiérrez, DO [address] [place] [address] 05/28/2023 Office Visit Rheumatology Anton Zimmerman CRNP [facility] [place] [address] 06/25/2023 Office Visit Pharmacy [facility] [address] [place] [address] 07/22/2023 Nurse Only Rheumatology Pf, [facility] [address] [facility] [address] 07/23/2023 Office Visit Cardiology Ning King PA-C [address] [place] [address] Scheduled Procedures Name Priority Associated Diagnoses Date/Ti [...] Additional history exists CKD PHOS USE SMARTSET 75452 10/12/202309/20, 10/12/2019, 08/18/2018, Additional history exists TSH 01/04/2024 01/03/2023, 03/20, 01/17/2021, Additional history exists CKD HGB USE SMARTSET 49412 01/25/202401/24, 01/24/2023, 01/03/2023, Additional history exists DXA [...] Documents on File Type Date Recorded Patient School Supervisor Expl anation Advance Directives and Living Will 05/01/2022 ADVANCE DIRECTIVE / LIVING WILL Power of Trust Clerk 05/01/2022 POWER OF A TTORNEY Latest Code Status on File Code Status Date Activated Date Inactivated Comments Full Code 10/11/2019 7:48 PM 10/12/2019 8:11 PM This order reflects the patients wishes and were consensually agreed upon. Question Answer Comments Discussion of Advance Directives occurred with: Not Discussed Does the patient have a Living Will? No Does the patient have Health Care Power of Trust Clerk? No Care Teams Pneumatic Press Hand Relationship Specialty Start Date End Date Mushtaq Gutiérrez, [address] [place] [address] PCP - General Family Medicine 02/15/17 documented as of this encounter
--- OUTSIDE RECORDS SUMMARY | 2023-07-26 06:30 | External Medical Summary | Summary of Care ---
Author Name Unknown Organization [facility] Address [address] [place] [address] Phone [phone] Care Team Providers Care Tool Grinder Operator External Name Role Phone Giorgio Salas Primary Care Provider [phone] Reason for Visit * Reason Comments case management Encounter Details Date Type Department Care Team Description 03/13/2023 Cigarette TesterRadio Sportscaster Internal Medicine [facility] [address] [place] [address] Mayda Lilly, RN [address] [place] [address] Medical home patient encounter* Allergies Active Allergy Reactions Severity Noted Date Comments Salicylates Itching 11/27/1999 Aspirin Sulfa Antibiotics Other (Please comment) 1998 Unsure, happened during a hospital admission. documented as of this encounter (statuses as of 03/13/2023) Medications Medication Sig Dispensed Refills Start Date [...] albuterol sulfate (PROVENTIL) (2.5 MG/3ML) 0.083% nebulizer solutionIndications:M ild persistent asthma without complication Inhale 1 Vial via nebulizer every 4 hours as needed for Wheezing. 120 mL 5 03/28/2020 Active Vitron-C 65-125 MG Oral Tablet (Iron-Vitamin C) Take by mouth 1 Tablet in the morning. 30 Tablet 0 03/02/2022 Active Pantoprazole Sodium 40 MG Oral Tablet Delayed Release (Protonix) TAKE ONE TABLET BY MOUTH DAILY 90 Tablet 1 07/08/2022 Active Levothyroxine Sodium 50 MCG Oral Tablet (Levoxyl) TAKE ONE TABLET BY MOUTH IN THE MORNING AT LEAST 30 MINUTES PRIOR TO BREAKFAST OR OTHER MEDS 90 Tablet 1 07/08/2022 Active Carvedilol 12.5 MG Oral Tablet (Coreg)Indications:HT [...] before bedtime. 60 Each 11 10/03/2022 Active DULoxetine HCl 30 MG Oral Capsule Delayed Release Particles (Cymbalta) Take 1 Capsule by mouth in the morning. Take with the 60 mg capsule. 90 Capsule 3 10/12/2022 Active DULoxetine HCl 60 MG Oral Capsule Delayed Release Particles (Cymbalta) Take 1 Capsule by mouth in the morning. 90 Capsule 1 10/19/2022 Active Gabapentin 100 MG Oral Capsule (Neurontin)Indication s:DDD (degenerative disc disease), lumbar Take 3 Capsules by mouth in the morning and 3 Capsules in the evening. 180 Capsule 5 11/02/2022 Active Montelukast Sodium 10 MG Oral Tablet (Singulair)Indication s:Seasonal allergic rhinitis, unspecified trigger Take 1 Tablet by mouth in the morning. 90 Tablet 1 12/10/2022 Active Lidocaine 5 % External Patch (Lidoderm)Indications [...] 5 01/15/2023 Active Eliquis 5 MG Oral TabletIndications:His tory of pulmonary embolism Take 1 Tablet by mouth in the morning and 1 Tablet in the evening. 60 Tablet 5 01/15/2023 Active Lasmiditan Succinate 50 MG Oral Tablet (Reyvow) Take one at onset of migraine. Max 1 dose in 24 hours 10 Tablet 5 01/24/2023 Active Nystatin 456164 UNIT/GM External Cream Apply topically to affected area 2 times a day. To affacted area for two weeks. 15 g 2 01/25/2023 Active traMADol HCl 50 MG Oral Tablet (Ultram)Indications:C ontrolled substance agreement signed,MEDICATION USE AGREEMENT,Primary osteoarthritis of both shoulders Take 1 Tablet by mouth 2 times a day as needed for Pain, Moderate. 60 Tablet 0 03/01/2023 Active documented as of this encounter (statuses as of 03/13/2023) Active Problems Problem Noted Date Chronic heart failure with preserved eje ction fraction 11/26/2022 Food insecurity 04/30/2022 Overview: Per [facility] Protocol Chronic right-sided heart failure [...] DDD (degenerative disc disease), lumbar 05/20/2018 Impingement syndrome, shoulder, left MEDICATION USE AGREEMENT 10/29/2017 Coronary artery disease invo lving [place] coronary artery of [place] heart without angina pectoris 10/28/2017 HTN, goal [...] History of positive PPD, untreated 08/10 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 Anticoagulation management encounter 03/2002 History of DVT (deep vein thrombosis) History of pulmonary embolism 02/23/2002 documented as of this encounter (statuses as of 03/13/2023) Resolved Problems Problem Noted Date Resolved Date [...] as of this encounter (statuses as of 03/13/2023) Immunizations Name Administration Dates Next Due COVID-19 mRNA, LNP-s, No Pre serve, 2-Dose Series ([employer]) 08/29/2021,12/30/2020,12/07/2020 H1N1 2009 Influenza, IM 10/17/2009 Pneumococcal [...] Progress Notes * Mayda Lilly RN - 03/13/2023 11:22 AM EDT Cigarette Tester Progress Note: Date: 03/13/23 Assgned Patient Tier: 2 Connected with patient's , Shaq via telephone. Verified patient name/. Advised that call is being recorded for quality and training purposes. Assessment: Noted the following: Reports that patient is doing okay but "seems a little tired today". States patient got up this morning and ate breakfast but then went to lay down and is currently napping. States that she "seemed to sleep okay last night". Denies any worsening shortness of breath/DONAL[place]ON, no chest pain, dizziness/lightheadedness. Minimal ongoing bilateral LE edema - at baseline. Wearing oxygen during sleep 2 lpm via nasal canula as directed - SpO2 95% today. AMC scale in place - weight this morning was stable at 203.5 lbs. Diarrhea has resolved. Reports patient has ongoing pain in her back, hips and knees - recently started taking Tramadol 1 tablet twice a day PRN - reports that she did take 3 tablets yesterday - advised that patient should only be using as prescribed. Also discussed use of Tylenol with Tramadol. Denies any further concerns/issues at present time. Reviewed medications - no changes needed in Epic. Reviewed red flags: worsening pain, worsening edema/swelling, worsening shortness of breath. Advised to report worsening symptoms to PCP if they occur. Will transition to Tier 3 and plan to follow up within two weeks. Did you receive an alert for an annual wellness visit? No Is this call for a hospital, senior living or rehab facility discharge to home? No Medication Reconciliation: Medication Reconciliation completed: yes Review of Current goals: Discussed the following patient-centered CM goals with the patient during this discussion: -HEART FAILURE: Achieve successful management of heart failure. -Status: On Track Taking medications as prescribed. Weights stable-203.5 lbs today. -SAFETY: Prevent falls or injuries -Status: On Track Ambulates independently. No reports of falls. -Prevention: Prevent admission/readmission -Status: On Track Taking medications as prescribed. Attending appointments as scheduled. COPD Patient: No CHF Patient: YES Scale: YES, Current Weight: 203.5lbs, Reinforced fluid restriction and low sodium diet. , Swelling: minimal bilateral ankle edema-at baseline CM Plan: Reviewed 3 Red Flags with patient. Advised to call CM with any of the following: Red Flag 1: worsening pain, Red Flag 2: worsening swelling/edema or Red Flag 3: worsening shortness of breath Remote Patient Monitoring: Device Currently in place: AMC Scale. Reviewed readings. Interventions, if needed: N/A Plan for Future Contacts: Plan to follow up within 2 weeks to check progress on the following goals/needs as above. Planned contacts from the following parties will occur this week: [facility] Pharmacy as additional contacts per workflow. Advancement/Closure Plan: Graduate patient to the next lower tier. Tier: 3 Patient provided CM contact information and encouraged to call with any changes in condition. SNP Member? No PCP Notified of enrollment in CM/HM program: Yes Is Provider in agreement with POC? Yes Mayda Lilly RN Outpatient Case Management documented in this encounter Plan of Treatment Upcoming Encounters Date Type Specialty Care Team Description 03/19/2023 Office Visit Pharmacy [facility] [address] [facility] [place] [address] 04/24/2023 Office Visit Family Medicine Giorgio Salas, DO [address] [place], [place] [address] 07/22/2023 Nurse Only Rheumatology Pf, Nurse Rheum [address] [facility] [place], [place] [address] 07/23/2023 Office Visit Cardiology Ning King PA-C [address] [place] [address] Scheduled Procedures Name Priority Associated Diagnoses Date/Ti [...] Additional history exists CKD PHOS USE SMARTSET 48610 10/12/202309/20, 10/12/2019, 08/18/2018, Additional history exists TSH 01/04/2024 01/03/2023, 03/20, 01/17/2021, Additional history exists CKD HGB USE SMARTSET 63663 01/25/202401/24, 01/24/2023, 01/03/2023, Additional history exists DXA [...] Documents on File Type Date Recorded Patient Cold Roll Operator Expl anation Advance Directives and Living Will 05/01/2022 ADVANCE DIRECTIVE / LIVING WILL Power of Packaging Manager 05/01/2022 POWER OF A TTORNEY Latest [...] the patient have Health Care Power of Packaging Manager? No Care Teams Tool Grinder Operator External Relationship Specialty Start Date End Date Giorgio Salas, DO [address] [place] [address] PCP - General Family Medicine 02/15/17 documented as of this encounter
--- OUTSIDE RECORDS SUMMARY | 2023-07-26 06:30 | External Medical Summary | Summary of Care ---
Author Name Unknown Organization [facility] Address [address] [place] [address] Phone [phone] Care Team Providers Care Oceanographic Meteorologist Name Role Phone Giorgio Salas Primary Care Provider [phone] Reason for Visit * Reason Comments case management Encounter Details Date Type Department Care Team Description 03/11/2023 Agriculture ConsultantManager Medical Writing Internal Medicine [facility] [address] [place] [address] Mayda Lilly, RN [address] [place] [address] Medical home patient encounter* Allergies Active Allergy Reactions Severity Noted Date Comments Salicylates Itching 11/27/1999 Aspirin Sulfa Antibiotics Other (Please comment) 1998 Unsure, happened during a hospital admission. documented as of this encounter (statuses as of 03/11/2023) Medications Medication Sig Dispensed Refills Start Date [...] hours 10 Tablet 5 01/24/2023 Active Nystatin 956880 UNIT/GM External Cream Apply topically to affected [...] as of this encounter (statuses as of 03/11/2023) Active Problems Problem Noted Date Chronic heart failure with preserved eje ction fraction 11/26/2022 Food insecurity 04/30/2022 Overview: Per [facility] Protocol Chronic right-sided heart failure [...] AGREEMENT 10/29/2017 Coronary artery disease invo lving [place]ol[place] coronary artery of [place] heart without angina pectoris 10/28/2017 HTN, goal [...] History of positive PPD, untreated 08/10 Prothrombin [id number] mutation 02/16/2013 Overview: heterozygous for the [id number] mutation Family history of prothrombin gene mutat [...] colonsocopy, repeat 2008 Irritable bowel syndrome 02/23/2004 [facility] current use of anticoagulant t herapy 09/23/2003 DYSFUNCT EUSTACHIAN TUBE 01/05/2003 Dyslipidemia, goal LDL below 70 06/23/20 02 Overview: Per Lipid Taxonomy. Anticoagulation management encounter 03/2002 History of DVT (deep vein thrombosis) History of pulmonary embolism 02/23/2002 documented as of this encounter (statuses as of 03/11/2023) Resolved Problems Problem Noted Date Resolved Date [...] as of this encounter (statuses as of 03/11/2023) Immunizations Name Administration Dates Next Due COVID-19 mRNA, LNP-s, No Pre serve, 2-Dose Series (SUPR) 08/29/2021,12/30/2020,12/07/2020 H1N1 2009 Influenza, IM 10/17/2009 Pneumococcal [...] Progress Notes * Mayda Lilly RN - 03/11/2023 4:24 PM EDT 1. Follow-up Routine 2. Attempted Phone Call Second Attempt 3. Call Outcome Unable to Leave Message 4. Plan To attempt another outreach called both listed numbers and unable to leave message IVR call trigger alerts. documented in this encounter Plan of Treatment Upcoming Encounters Date Type Specialty Care Team Description 03/19/2023 Office Visit Pharmacy [facility] [address] [place] [address] 04/24/2023 Office Visit Family Medicine Giorgio Salas, DO [address] [place] [address] 07/22/2023 Nurse Only Rheumatology Pf, Nurse Rheum [address] [place] [address] 07/23/2023 Office Visit Cardiology Ning King PA-C [address] [place] [address] Scheduled Procedures Name Priority Associated Diagnoses Date/Ti [...] Additional history exists CKD PHOS USE SMARTSET 24903 10/12/202309/20, 10/12/2019, 08/18/2018, Additional history exists TSH 01/04/2024 01/03/2023, 03/20, 01/17/2021, Additional history exists CKD HGB USE SMARTSET 38974 01/25/202401/24, 01/24/2023, 01/03/2023, Additional history exists DXA [...] Documents on File Type Date Recorded Patient Auto Service Advisor Expl anation Advance Directives and Living Will 05/01/2022 ADVANCE DIRECTIVE / LIVING WILL Power of Cigar Packing Examiner 05/01/2022 POWER OF A TTORNEY Latest Code Status on File Code Status Date Activated Date Inactivated Comments Full Code 10/11/2019 7:48 PM 10/12/2019 8:11 PM This order reflects the patients wishes and were consensually agreed upon. Question Answer Comments Discussion of Advance Directives occurred with: Not Discussed Does the patient have a Living Will? No Does the patient have Health Care Power of Cigar Packing Examiner? No Care Teams Oceanographic Meteorologist Relationship Specialty Start Date End Date Giorgio Salas, DO [address] [place] [address] PCP - General Family Medicine 02/15/17 documented as of this encounter
--- OUTSIDE RECORDS SUMMARY | 2023-07-26 06:30 | External Medical Summary | Summary of Care ---
Author Name Unknown Organization [facility] Address [address] [place] [address] Phone [phone] Care Team Providers Care Aerial Erector Name Role Phone Mushtaq Gutiérrez DO Primary Care Provider [phone] Reason for Visit * Reason Comments eRx-Medication Refill Encounter Details Date Type Department Care Team Description 03/13/2023 Refill Family Practice [facility] [address] [facility] [place] [address] Mushtaq Gutiérrez DO [address] [facility] [place] [address] Allergies Active Allergy Reactions Severity Noted Date Comments Salicylates Itching 11/27/1999 Aspirin Sulfa Antibiotics Other (Please comment) 1998 Unsure, happened during a hospital admission. documented as of this encounter (statuses as of 03/14/2023) Medications Medication Sig Dispensed Refills Start Date [...] as needed for Wheezing. 120 mL 5 0 Active Vitron-C 65-125 MG Oral Tablet [...] before bedtime. 60 Each 11 3 Active DULoxetine HCl 30 MG Oral Capsule Delayed Release Particles (Cymbalta) Take 1 Capsule by mouth in the morning. Take with the 60 mg capsule. 90 Capsule 3 3 Active DULoxetine HCl 60 MG Oral Capsule Delayed Release Particles (Cymbalta) Take 1 Capsule by mouth in the morning. 90 Capsule 1 3 Active Gabapentin 100 MG Oral Capsule (Neurontin)Indicati ons:DDD (degenerative disc disease), lumbar Take 3 Capsules by mouth in the morning and 3 Capsules in the evening. 180 Capsule 5 3 Active Montelukast Sodium 10 MG Oral Tablet (Singulair)Indicati ons:Seasonal allergic rhinitis, unspecified trigger Take 1 Tablet by mouth in the morning. 90 Tablet 1 3 Active Lidocaine 5 % External Patch [...] hours 10 Tablet 5 3 Active Nystatin 826139 UNIT/GM External Cream Apply topically to affected area 2 times a day. To affacted area for two weeks. 15 g 2 3 Active traMADol HCl 50 MG Oral Tablet (Ultram)Indications :Controlled substance agreement signed,MEDICATION USE AGREEMENT,Primary osteoarthritis of both shoulders Take 1 Tablet by mouth 2 times a day as needed for Pain, Moderate. 60 Tablet 0 3 Active Levothyroxine Sodium 50 MCG Oral Tablet (Levoxyl) TAKE ONE TABLET BY MOUTH IN THE MORNING AT LEAST 30 MINUTES PRIOR TO BREAKFAST OR OTHER MEDICATIONS 90 Tablet 1 3 Active Pantoprazole Sodium 40 MG Oral Tablet Delayed Release (Protonix) TAKE ONE TABLET BY MOUTH DAILY 90 Tablet 1 3 Active Pantoprazole Sodium 40 MG Oral Tablet Delayed Release (Protonix) TAKE ONE TABLET BY MOUTH DAILY 90 Tablet 1 2 03/14/20 23 Discontinued Levothyroxine Sodium 50 MCG Oral Tablet (Levoxyl) TAKE ONE TABLET BY MOUTH IN THE MORNING AT LEAST 30 MINUTES PRIOR TO BREAKFAST OR OTHER MEDS 90 Tablet 1 2 03/14/20 23 Discontinued documented as of this encounter (statuses as of 03/14/2023) Active Problems Problem Noted Date Chronic heart failure with preserved eje ction fraction 11/26/2022 Food insecurity 04/30/2022 Overview: Per [facility] Protocol Chronic right-sided heart failure [...] AGREEMENT 10/29/2017 Coronary artery disease invo lving [place] coronary artery of [place] heart without angina pectoris 10/28/2017 HTN, goal [...] History of positive PPD, untreated 08/10 Prothrombin [id number] mutation 02/16/2013 Overview: heterozygous for the M31584a mutation Family history of prothrombin gene mutat ion 02/11/2013 GERD (gastroesophageal reflux disease) 0 09/24/2012 Asthma, mild persistent 07/19/2011 Hypoxemia 12/29/2010 Overview: Oxygen required Hypothyroidism 11/15/2010 Dependence on supplemental oxygen 2009 Nocturnal hypoxia 01/06/2010 Overview: Seen on overnight oximetry Dyslipidemia 08/08/2009 Overview: Per Lipid Taxonomy. 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 Anticoagulation management encounter 03/2002 History of DVT (deep vein thrombosis) History of pulmonary embolism 02/23/2002 documented as of this encounter (statuses as of 03/14/2023) Resolved Problems Problem Noted Date Resolved Date [...] as of this encounter (statuses as of 03/14/2023) Immunizations Name Administration Dates Next Due COVID-19 mRNA, LNP-s, No Pre serve, 2-Dose Series ([employer] [facility] [employer]) 08/29/2021,12/30/2020,12/07/2020 H1N1 2009 Influenza, IM 10/17/2009 Pneumococcal [...] encounter Miscellaneous Notes * Telephone Encounter - Sierra Meraz RPh - 03/14/2023 6:31 AM EDTSigned Prescriptions: Disp Refills Levothyroxine Sodium 50 MCG Oral Tablet (L*90 Tab*1 Sig: TAKE ONE TABLET BY MOUTH IN THE MORNING AT LEAST 30 MINUTES PRIOR TO BREAKFAST OR OTHER MEDICATIONSAuthorizing Provider: MUSHTAQ GUTIÉRREZ User: SIERRA MERAZ Pantoprazole Sodium 40 MG Oral Tablet Jaycee*90 Tab*1 Sig: TAKE ONE TABLET BY MOUTH DAILYAuthorizing Provider: MUSHTAQ GUTIÉRREZ User: SIERRA MERAZ documented in this encounter Plan of Treatment Upcoming Encounters Date Type Specialty Care Team Description 03/19/2023 Office Visit Pharmacy [facility] [address] [facility] [place] [address] 04/24/2023 Office Visit Family Medicine Mushtaq Gutiérrez DO [address] [place] [address] 07/22/2023 Nurse Only Rheumatology Pf, Nurse Rheum [address] [facility] [place] [address] 07/23/2023 Office Visit Cardiology Ning King, ALEA [address] [place] [address] Scheduled Procedures Name Priority Associated Diagnoses Date/Ti [...] Additional history exists CKD PHOS USE SMARTSET 71502 10/12/202309/20, 10/12/2019, 08/18/2018, Additional history exists TSH 01/04/2024 01/03/2023, 03/20, 01/17/2021, Additional history exists CKD HGB USE SMARTSET 69561 01/25/202401/24, 01/24/2023, 01/03/2023, Additional history exists DXA [...] Documents on File Type Date Recorded Patient Primer Assembler Expl anation Advance Directives and Living Will 05/01/2022 ADVANCE DIRECTIVE / LIVING WILL Power of Color Finisher 05/01/2022 POWER OF A TTORNEY Latest Code Status on File Code Status Date Activated Date Inactivated Comments Full Code 10/11/2019 7:48 PM 10/12/2019 8:11 PM This order reflects the patients wishes and were consensually agreed upon. Question Answer Comments Discussion of Advance Directives occurred with: Not Discussed Does the patient have a Living Will? No Does the patient have Health Care Power of Color Finisher? No Care Teams Aerial Erector Relationship Specialty Start Date End Date Mushtaq Gutiérrez, [address] [place] [address] PCP - General Family Medicine 02/15/17 documented as of this encounter
--- OUTSIDE RECORDS SUMMARY | 2023-07-26 06:30 | External Medical Summary | Summary of Care ---
Author Name Unknown Organization [facility] Address [address] [facility] [address] Phone [phone] Care Team Providers Care Converting Operator Name Role Phone IsidoroGiorgio ontiveros Primary Care Provider [phone] Reason for Visit * Reason Comments Rheum Follow Up Recheck Encounter Details Date Type Department Care Team Description 03/27/2023 [facility] [address] [place] [address] Alonso Dwyer MD [facility] [employer] [place] [address] Trochanteric bursitis of both hips*; Impingement syndrome of both shoulders Allergies Active Allergy Reactions Severity Noted Date Comments Salicylates Itching 11/27/1999 Aspirin Sulfa Antibiotics Other (Please comment) 1998 Unsure, happened during a hospital admission. documented as of this encounter (statuses as of 03/27/2023) Medications Medication Sig Dispensed Refills Start Date [...] hours 10 Tablet 5 01/24/2023 Active Nystatin 950766 UNIT/GM External Cream Apply topically to affected [...] before bedtime. 90 Capsule 5 03/19/2023 Active Hospital, Clinic, or Other Facility Administered Medication Ordered Dose Route Frequency Start Date End Date Status Lidocaine (PF) 2 % (PF) inj 20 mgIndications:Trochanteric bursitis of both hips 20 mg IX ONCE 03/27/2023 03/27/2023 End ed Lidocaine (PF) 2 % (PF) inj 20 mgIndications:Trochanteric bursitis of both hips 20 mg IX ONCE 03/27/2023 03/27/2023 End ed Lidocaine (PF) 2 % (PF) inj 20 mgIndications:Impingement syndrome of both shoulders 20 mg IX ONCE 03/27/2023 3 Ended Lidocaine (PF) 2 % (PF) inj 20 mgIndications:Impingement syndrome of both shoulders 20 mg IX ONCE 03/27/2023 3 Ended methylPREDNISolone acetate (Depo-Medrol) 40 MG/ML inj 40 mgIndications:Trochanteric bursitis of both hips 40 mg IX ONCE 03/27/2023 03/27/2023 End ed methylPREDNISolone acetate (Depo-Medrol) 40 MG/ML inj 40 mgIndications:Trochanteric bursitis of both hips 40 mg IX ONCE 03/27/2023 03/27/2023 End ed methylPREDNISolone acetate (Depo-Medrol) 40 MG/ML inj 40 mgIndications:Impingement syndrome of both shoulders 40 mg IX ONCE 03/27/2023 3 Ended methylPREDNISolone acetate (Depo-Medrol) 40 MG/ML inj 40 mgIndications:Impingement syndrome of both shoulders 40 mg IX ONCE 03/27/2023 3 Ended documented as of this encounter (statuses as of 03/27/2023) Active Problems Problem Noted Date Chronic heart [...] AGREEMENT 10/29/2017 Coronary artery disease invo lving [place] coronary artery of [place] heart without angina pectoris 10/28/2017 HTN, [...] History of positive PPD, untreated 08/10 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 VARIANTS OF MIGRAINE WITH INTRACTABLE NM GRAINE, SO STATED 10/23/2005 History of colonic polyps 02/23/2004 Overview: 03/03/15: ischemic colitis of the sigmoid colon repeat 5 years 06/27/09: normal repeat 5 years 03/22/04: seen on colonsocopy, repeat 2009 Irritable bowel syndrome 02/23/2004 equipment [employer] current use of anticoagulant t herapy 09/23/2003 DYSFUNCT EUSTACHIAN TUBE 01/05/2003 Dyslipidemia, goal LDL below 70 06/23/20 Overview: Per Lipid Taxonomy. Anticoagulation management encounter 03/2002 History of DVT (deep vein thrombosis) History of pulmonary embolism 02/23/2002 documented as of this encounter (statuses as of 03/27/2023) Resolved Problems Problem Noted Date Resolved Date [...] as of this encounter (statuses as of 03/27/2023) Immunizations Name Administration Dates Next Due COVID-19 [...] Pressure - - Pulse - - Temperature 36.5 C (97.7 F) 03/27/2023 3:28 PM ED T Respiratory Rate - - Oxygen Saturation - - Inhaled Oxygen Concentration - - Weight 93 kg (205 lb) 03/27/2023 3:28 PM EDT Height - - Body Mass Index 34.11 04/09/2022 10:21 AM EDT documented in this [...] as of this encounter Progress Notes * Alonso P Oppermann, MD - 03/27/2023 3:36 PM EDTAssociated Order(s): LG Joint Inj/Arthro: bilateral subacromial bursa; LG Joint Inj/Arthro: bilateral greater trochanteric bursa Post-Procedure Diagnose(s): Impingement syndrome of both shoulders; Trochanteric bursitis of both hips Anh Breaux is a 83 year old female patient. ICD-10-CM 1. Trochanteric bursitis of both hips M70.61 M70.62 2. 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 LG Joint Inj/Arthro: bilateral subacromial bursa on 03/27/2023 3:41 PM Indications: pain Details: 25 G needle, posterior approach Medications (Right): (40mg of [...] called to verify the correctpatient, procedure, equipment, desktop support manager and site/side marked as required. Patient was prepped and draped in the usual sterile fashion. LG Joint Inj/Arthro: bilateral greater trochanteric bursa on 03/27/2023 3:41 PM Indications: pain Details: 22 G needle, [...] called to verify the correctpatient, procedure, equipment, desktop support manager and site/side marked as required. Patient was prepped and draped in the usual sterile fashion. Alonso Dwyer MD 03/27/2023 documented in this encounter Nursing Notes * Tejas Padron LPN - 03/27/2023 3:27 PM EDT Chief Complaint Patient presents with Rheum Follow Up Recheck documented in this encounter Plan of Treatment Upcoming Encounters Date Type Specialty Care Team Description 04/24/2023 Office Visit Family Medicine Giorgio Salas, DO [address] [facility] [place] [address] 05/28/2023 Office Visit Rheumatology Anton Zimmerman CRNP [address] [employer] [place] [address] 06/25/2023 Office Visit Pharm[facility] [address] [facility] [address] 07/22/2023 Nurse Only Rheumatology Pf, Nurse Rheum [address] [employer] [place] [address] 07/23/2023 Office Visit Cardiology Ning King PA-C [address] [place] [address] Scheduled Procedures Name Priority Associated Diagnoses Date/Ti [...] Additional history exists CKD PHOS USE SMARTSET 12730 10/12/202309/20, 10/12/2019, 08/18/2018, Additional history exists TSH 01/04/2024 01/03/2023, 03/20, 01/17/2021, Additional history exists CKD HGB USE SMARTSET 75815 01/25/202401/24, 01/24/2023, 01/03/2023, Additional history exists DXA [...] Procedure Name Priority Date/Time Associated Diagnosis Comments MT ARTHROCENTESIS ASPIR&/INJ MAJOR JT/BURSA W/O US Routine 03/27/2023 3:41 PM EDT Trochanteric bursitis of both hips MT ARTHROCENTESIS ASPIR&/INJ MAJOR JT/BURSA W/O US Routine 03/27/2023 3:41 PM EDT Impingement syndrome of both shoulders documented in this encounter Results * MT ARTHROCENTESIS ASPIR&/INJ MAJOR JT/BURSA W/O US (03/27/2023 3:41 PM EDT) Alonso Mcleod MD - 03/27/2023 3:41 PM EDT Alonso Dwyer MD 03/27/2023 3:52 PM LG Joint Inj/Arthro: bilateral greater trochanteric bursa on 03/27/2023 3:41 PM Indications: pain Details: 22 G needle, [...] to verify the correct patient, procedure, equipment, desktop support manager and site/side marked as required. Patient was prepped and draped in the usual sterile fashion. Alonso Dwyer MD PROCDOC FORM * MT ARTHROCENTESIS ASPIR&/INJ MAJOR JT/BURSA W/O US (03/27/2023 3:41 PM EDT) Alonso Mcleod MD - 03/27/2023 3:41 PM EDT Alonso Dwyer MD 03/27/2023 3:52 PM LG Joint Inj/Arthro: bilateral subacromial bursa on 03/27/2023 3:41 PM Indications: pain Details: 25 G needle, posterior approach Medications (Right): (40mg of [...] to verify the correct patient, procedure, equipment, desktop support manager and site/side marked as required. Patient was prepped and draped in the usual sterile fashion. Alonso Dwyer MD PROCDOC FORM documented in this encounter Visit Diagnoses Diagnosis Trochanteric bursitis of both hips- Primary Enthesopathy of hip region Impingement syndrome of both shoulders Other affections of shoulder region, not elsewhere classified documented in this encounter Administered Medications Inactive Administered Medications - up to 3 most recent administrations Medication Order MAR Action Action Date Dose Rate Site Lidocaine (PF) 2 % (PF) inj 20 mg 20 mg, Intra-Articular, ONCE, On Sat03/27/23 at 1615, For 1 dose Given 03/27/2023 3:39 PM EDT 20 mg H ip Right Lidocaine (PF) 2 % (PF) inj 20 mg 20 mg, Intra-Articular, ONCE, On Sat03/27/23 at 1615, For 1 dose Given 03/27/2023 3:40 PM EDT 20 mg S [facility] Left Lidocaine (PF) 2 % (PF) inj 20 mg 20 mg, Intra-Articular, ONCE, On Sat03/27/23 at 1615, For 1 dose Given 03/27/2023 3:40 PM EDT 20 mg S [facility] Right Lidocaine (PF) 2 % (PF) inj 20 mg 20 mg, Intra-Articular, ONCE, On Sat03/27/23 at 1615, For 1 dose Given 03/27/2023 3:39 PM EDT 20 mg H ip Left methylPREDNISolone acetate (Depo-Medrol) 40 MG/ML inj 40 mg 40 mg, Intra-Articular, ONCE, On Sat03/27/23 at 1615, For 1 dose Given 03/27/2023 3:40 PM EDT 40 mg S [place] Left methylPREDNISolone acetate (Depo-Medrol) 40 MG/ML inj 40 mg 40 mg, Intra-Articular, ONCE, On Sat03/27/23 at 1615, For 1 dose Given 03/27/2023 3:40 PM EDT 40 mg S [place] Right methylPREDNISolone acetate (Depo-Medrol) 40 MG/ML inj 40 mg 40 mg, Intra-Articular, ONCE, On Sat03/27/23 at 1615, For 1 dose Given 03/27/2023 3:39 PM EDT 40 mg H ip Right methylPREDNISolone acetate (Depo-Medrol) 40 MG/ML inj 40 mg 40 mg, Intra-Articular, ONCE, On Sat03/27/23 at 1615, For 1 dose Given 03/27/2023 3:39 PM EDT 40 mg H ip Left documented in this encounter Advance Directives Documents on File Type Date Recorded Patient Manager Safe Expl anation Advance Directives and Living Will 05/01/2022 ADVANCE DIRECTIVE / LIVING WILL Power of Boiler Repairman 05/01/2022 POWER OF A TTORNEY Latest Code Status on File Code Status Date Activated Date Inactivated Comments Full Code 10/11/2019 7:48 PM 10/12/2019 8:11 PM This order reflects the patients wishes and were consensually agreed upon. Question Answer Comments Discussion of Advance Directives occurred with: Not Discussed Does the patient have a Living Will? No Does the patient have Health Care Power of Boiler Repairman? No Care Teams Converting Operator Relationship Specialty Start Date End Date Giorgio Salas, [address] [place] [address] PCP - General Family Medicine 02/15/17 documented as of this encounter
--- OUTSIDE RECORDS SUMMARY | 2023-07-26 06:30 | External Medical Summary | Summary of Care ---
Author Name Unknown Organization [facility] Address [address] [place] [address] Phone [phone] Care Team Providers Care Press Box Custodian Name Role Phone IsidoroGiorgio ontiveros Primary Care Provider [phone] Reason for Visit * Reason Comments Dosage Adjustment In Person (Anticoag Cl inic) Pain Encounter Details Date Type Department Care Team Description 03/19/2023 Office Visit [facility] [address] [facility] [address] [place] [address] Primary osteoarthritis of both knees*; Osteoarthritis of shoulder, unspecified laterality, unspecified osteoarthritis type; Primary localized osteoarthrosis of lower leg, unspecified laterality; DDD (degenerative disc disease), lumbar; Lumbar radiculopathy Allergies Active Allergy Reactions Severity Noted Date Comments Salicylates Itching 11/27/1999 Aspirin Sulfa Antibiotics Other (Please comment) 1998 Unsure, happened during a hospital admission. documented as of this encounter (statuses as of 03/19/2023) Medications Medication Sig Dispensed Refills Start Date [...] hours 10 Tablet 5 01/24/2023 Active Nystatin 172255 UNIT/GM External Cream Apply topically to affected [...] before bedtime. 90 Capsule 5 03/19/2023 Active DULoxetine HCl 30 MG Oral Capsule Delayed Release Particles (Cymbalta) Take 1 Capsule by mouth in the morning. Take with the 60 mg capsule. 90 Capsule 3 10/12/2022 03/19/20 23 Discontinu ed(Medicat ion/Dose Changed) DULoxetine HCl 60 MG Oral Capsule Delayed Release Particles (Cymbalta) Take 1 Capsule by mouth in the morning. 90 Capsule 1 10/19/2022 03/19/20 23 Discontinu ed(Medicat ion/Dose Changed) Gabapentin 100 MG Oral Capsule (Neurontin)Indicati ons:DDD (degenerative disc disease), lumbar Take 3 Capsules by mouth in the morning and 3 Capsules in the evening. 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 Anticoagulation management encounter 03/2002 History of DVT (deep vein thrombosis) History of pulmonary embolism 02/23/2002 documented as of this encounter (statuses as of 03/19/2023) Resolved Problems Problem Noted Date Resolved Date [...] as of this encounter (statuses as of 03/19/2023) Immunizations Name Administration Dates Next Due COVID-19 mRNA, LNP-s, No Pre serve, 2-Dose Series (i-Optics) 08/29/2021,12/30/2020,12/07/2020 H1N1 2009 Influenza, IM 10/17/2009 Pneumococcal [...] as of this encounter Progress Notes * Elizabeth Odonnell, [facility] - 03/19/2023 10:54 AM EDT Images from the original note were not included. Medication Therapy Disease Management Clinic - Chronic Pain Management Progress Note 03/19/2023 Anh Breaux, identified by name and date of , is a 82 year old female being seen for chronic pain management/education. Patient presents to pain MTM clinic for return visit. Referring Physician: Giorgio Salas Medication Use Agreement: 04/18/17 Patient's Pharmacy: [facility] CHIEF COMPLAINT:right hip arthritis and left shoulder HPI: "In a lot of pain." Lidocaine and Voltaren and Aspercreme provide minimal relief Decreased Tylenol usage to 4-6 tablets daily Appointment today with Yancy Hoang was cancelled Has not had her steroid injections for a couple months Pain in hips is described as short and stabby Pain also radiates to feet sometimes Pain described as: achy, and just painful Sleep: hard to sleep Palliating factors: none Exacerbating factors: activity/lying on side Other interventions tried: PT, injections Worst time of day for pain: constant Imaging:see tab Psych History:none Neurological Hx: none Cardiac Hx: MO Renal Hx: CKD stage III Hepatic Hx: none Other: sleep apnea, asthma Illicit Substance/Rx/Alcohol Abuse:no Opioid Risk Assessment Tool (BRQ):0 Daily MME:10 PDMP Reviewed (12/27/22): Functional Goal:QOL CurrentPain Level (03/19/23): In a lot of pain Pain Level (12/27/22): Very very bad Pain Level (09/20/22): 5-6 most days, today a 1, 3 days ago a 10 Pain Level (04/19/2022): 1 -pain well controlled Pain Level (02/12/2022):a little worse in the hip and shoulder, but slightly better in back Pain Level (12/12/2021):no changes Pain Level (08/17/2021):improving in back, but no change elsewhere Pain Level(04/04/21): Improved Pain Level (12/21/20):no change Pain Level (11/09/20): No change Pain Level (10/12/20):no change Pain Level (08/11/2020):average 6, good day 3-4, worst days 10/10 Past Pain Medications: oxycodone Vicodin 5/325 mg 2 tabs q4 hrs prn Hydromorphone ER 8 mg daily Current Pain Medications: [id number] daily Jdwsehauph698 mgBID Tylenol 650 mg TID - reports 4-6 tabs daily ES Lidocaine patches PRN - work well but only for a couple hours Volarten gel 1-2x/day ( helps apply)-alternate with spray Aspercreme spray 2-3 times daily - alternate with Voltaren Of note - Tramadol prescribed since last seen by MTM. Has been filled regularly since September *eliquis, oxygen Creatinine Clearance: Serum creatinine: 1 mg/dL 01/24/23 0937 Estimated creatinine clearance: 52.3 mL/min Creatinine Results: Recent Labs Units 01/24/23 0937 01/03/23 0000 11/29/22 1505 CREATININE - [facility] mg/dL 1.0 -- 1.4* CREATININE-OUTSIDE LAB MG/DL -- 1.32* -- Hepatic Function (ALT): Recent Labs Units 11/26/22 1510 10/12/22 1545 02/13/22 1408 ALT - [facility] U/L 16 19 12 Comprehensive Metabolic Panel Results: Results for orders placed or performed in visit on 11/26/22 COMPREHENSIVE METABOLIC PANEL Result Value Ref Range BUN 36 (H) 6 - 20 mg/dL Creatinine 1.5 (H) 0.5 - 1.0 mg/dL Estimated Glomerular Filtration Rate 35 (L) >=60 mL/min Sodium 140 135 - 146 mmol/L Potassium 5.7 (H) 3.5 - 5.1 mmol/L Chloride 106 98 - 107 mmol/L CO2 27 22 - 32 mmol/L Anion Gap 7 7 - 15 mmol/L Glucose 102 70 - 120 mg/dL Albumin 3.8 3.8 - 5.0 g/dL AST 24 10 - 35 U/L Alkaline Phosphatase 73 35 - 130 U/L Bilirubin, Total 0.4 <=1.2 mg/dL Calcium 9.3 8.4 - 10.2 mg/dL Protein 6.3 6.0 - 8.3 g/dL ALT 16 10 - 35 U/L ASSESSMENT: Patient aware MTM is a clinical pharmacist visit, with focus on medication options for current diagnoses referred by Primary Care Provider for review and optimization. Focus of this visit is Medication Optimization. Current concerns: Lack of pain control Adherence: Reviewed current regimen, patient is adherent to regimen. assists with medication management and administration Treatment options: Limited due to decreased kidney function and underlying disease states and history. Increase Duloxetine and Gabapentin. Offered Referral to outside pain management Treatment concerns: Lack of pain relief with limited options available. Education provided: Increase Duloxetine and Gabapentin to improve pain level but continue to monitor for SE's PLAN: INCREASE Cuensrmc85 mg BID INCREASE Rwnvcckfbd102 mgTID Medication changes: yes, see below Pain Medications: INCREASE Zfftlsdb88 mg BID INCREASE Hvsaaovhfo756 mgTID Tylenol 650 mg TID - reports 4-6 tabs daily ES Tramadol 50 mg - 1 tab BID prn Prescription for Lidocaine patches - 12 hours on 12 hours off Volarten gel 1-2x/day ( helps apply)-alternate with spray Aspercreme spray 2-3 times daily - alternate with Voltaren *eliquis, oxygen Patient verbalized understanding of the plan. Contact clinic with any issues. FOLLOW UP: Return to clinic in 3 months 06/25/2023 Dawit Bello Amanda Clinical Pharmacist Medication Therapy Management Clinic 03/19/2023 12:01 PM Elizabeth Odonnell [facility] Clinical Pharmacist - Contact Clerk Medication Therapy Management Clinic 03/19/2023, 10:54 AM documented in this encounter Plan of Treatment Upcoming Encounters Date Type Specialty Care Team Description 03/27/2023 Office Visit Rheumatology OpAlonso maldonado MD [address] [place] [address] 04/24/2023 Office Visit Family Medicine Giorgio Salas, DO [address] [place] [address] 06/25/2023 Office Visit Pharmacy [facility] [address] [place] [address] 07/22/2023 Nurse Only Rheumatology Pf, Nurse Rheum [address] [facility], [place] [address] 07/23/2023 Office Visit Cardiology Ning King PA-C [address] [place] [address] Scheduled Procedures Name Priority Associated Diagnoses Date/Ti [...] Additional history exists CKD PHOS USE SMARTSET 05369 10/12/202309/20, 10/12/2019, 08/18/2018, Additional history exists TSH 01/04/2024 01/03/2023, 03/20, 01/17/2021, Additional history exists CKD HGB USE SMARTSET 01166 01/25/202401/24, 01/24/2023, 01/03/2023, Additional history exists DXA [...] knees- Primary Primary localized osteoarthrosis, lower leg Osteoarthritis of shoulder, unspecified laterality, unspecified osteoarthritis type Primary localized osteoarthrosis of lower leg, unspecified laterality DDD (degenerative disc disease), lumbar Degeneration of lumbar or lumbosacral intervertebral disc Lumbar radiculopathy Thoracic or lumbosacral neuritis or radiculitis, unspecified documented in this encounter Advance Directives Documents on File Type Date Recorded 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 Question Answer Comments Discussion of Advance Directives occurred with: Not Discussed Does the patient have a Living Will? No Does the patient have Health Care Power of Sheet Metal Fabricator? No Care Teams Press Box Custodian Relationship Specialty Start Date End Date Giorgio Salas DO [address] [place] [address] PCP - General Family Medicine 02/15/17 documented as of this encounter
--- OUTSIDE RECORDS SUMMARY | 2023-07-26 06:31 | External Medical Summary | Summary of Care ---
Author Name Unknown Organization [facility] Address [address] [place] [address] Phone [phone] Care Team Providers Care Sales Commissions Analyst Name Role Phone Mushtaq Gutiérrez DO Primary Care Provider [phone] Reason for Visit * Reason Onset Date Comments Medication Refill 03/01/2023 Encounter Details Date Type Department Care Team Description 03/01/2023 Refill Family Practice [facility] [place] [address] [facility] [place] [address] Mushtaq Gutiérrez DO [address] [place] [address] Controlled substance agreement signed; MEDICATION USE AGREEMENT; Primary osteoarthritis of both shoulders Allergies Active Allergy Reactions Severity Noted Date Comments Salicylates Itching 11/27/1999 Aspirin Sulfa Antibiotics Other (Please comment) 1998 Unsure, happened during a hospital admission. documented as of this encounter (statuses as of 03/01/2023) Medications Medication Sig Dispensed Refills Start Date [...] 07/08/2022 Active Carvedilol 12.5 MG Oral Tablet (Coreg)Indications: [...] and 1 Puff before bedtime. 60 Each 10/03/2022 Active DULoxetine HCl 30 MG Oral Capsule Delayed Release Particles (Cymbalta) Take 1 Capsule by mouth in the morning. Take with the 60 mg capsule. 90 Capsule 3 10/12/2022 Active DULoxetine HCl 60 MG Oral Capsule Delayed Release Particles (Cymbalta) Take 1 Capsule by mouth in the morning. 90 Capsule 1 10/19/2022 Active Gabapentin 100 MG Oral Capsule (Neurontin)Indicati [...] hours 10 Tablet 5 01/24/2023 Active Nystatin 769806 UNIT/GM External Cream Apply topically to affected area 2 times a day. To affacted area for two weeks. 15 g 2 01/25/2023 Active traMADol HCl 50 MG Oral Tablet (Ultram)Indications :Controlled substance agreement signed,MEDICATION USE AGREEMENT,Primary osteoarthritis of both shoulders Take 1 Tablet by mouth 2 times a day as needed for Pain, Moderate. 60 Tablet 0 03/01/2023 Active traMADol HCl 50 MG Oral Tablet (Ultram)Indications :Controlled substance agreement signed,MEDICATION USE AGREEMENT,Primary osteoarthritis of both shoulders Take 1 Tablet by mouth 2 times a day as needed for Pain, Moderate. 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 VARIANTS OF MIGRAINE WITH INTRACTABLE RI GRAINE, SO STATED 10/23/2005 History of colonic polyps 02/23/2004 Overview: 03/03/15: ischemic colitis of the sigmoid colon repeat 5 years 06/27/09: normal repeat 5 years 03/22/04: seen on colonsocopy, repeat 2009 Irritable bowel syndrome 02/23/2004 [facility] current use of anticoagulant t herapy 09/23/2003 DYSFUNCT EUSTACHIAN TUBE 01/05/2003 Dyslipidemia, goal LDL below 70 06/23/20 Overview: Per Lipid Taxonomy. Anticoagulation management encounter 03/2002 History of DVT (deep vein thrombosis) History of pulmonary embolism 02/23/2002 documented as of this encounter (statuses as of 03/01/2023) Resolved Problems Problem Noted Date Resolved Date [...] as of this encounter (statuses as of 03/01/2023) Immunizations Name Administration Dates Next Due COVID-19 mRNA, LNP-s, No Pre serve, 2-Dose Series ([employer]) 08/29/2021,12/30/2020,12/07/2020 H1N1 2009 Influenza, IM 10/17/2009 Pneumococcal [...] Telephone Encounter - Mushtaq Gutiérrez DO - 03/01/2023 3:01 PM EDTSigned Prescriptions: Disp Refills traMADol HCl 50 MG Oral Tablet (Ultram) 60 Tab*0 Sig: Take 1 Tablet by mouth 2 times a day as needed for Pain, Moderate. Authorizing Provider: MUSHTAQ GUTIÉRREZ * Telephone Encounter - Geovanna Vargas LPN - 03/01/2023 2:47 PM EDT Provider to address: Pending Prescriptions: Disp Refills traMADol HCl 50 MG Oral Tablet (Ultram) 60 Tab*0 Sig: Take 1 Tablet by mouth 2 times a day as needed for Pain, Moderate. Last Visit: 01/15/2023 (in office), 06/28/2020 (telemedicine) Next Visit: 04/24/2023 Last date the medication was ordered: 12/10/22 Patient Active Problem List Diagnosis Code Anticoagulation management encounter Z51.81, Z79.01 History of DVT (deep vein thrombosis) Z86.718 History of pulmonary embolism Z86.711 Dyslipidemia, goal LDL below 70 E78.5 DYSFUNCT EUSTACHIAN TUBE H69.80 [facility] current use of anticoagulant therapy Z79.01 History of colonic polyps Z86.010 Irritable bowel syndrome K58.9 VARIANTS OF MIGRAINE WITH INTRACTABLE MIGRAINE, SO STATED G43.819 Dyslipidemia E78.5 Dependence on supplemental oxygen Z99.81 Hypothyroidism E03.9 Hypoxemia R09.02 Asthma, mild persistent J45.30 GERD (gastroesophageal reflux disease) K21.9 Family history of prothrombin gene mutation Z83.2 Prothrombin [id number] mutation ([facility]) D68.52 History of positive PPD, untreated R76.11 Osteoarthrosis involving shoulder region M19.019 Enthesopathy of hip M76.899 Nocturnal hypoxia G47.34 Primary osteoarthritis of both knees M17.0 Osteoarthrosis, localized, primary, involving lower leg M17.10 Controlled substance agreement signed Z79.899 Body mass index (BMI) of 40.0 to 44.9 in adult ([facility]) Z68.41 Trochanteric bursitis of both hips M70.61, M70.62 Coronary artery disease involving rincon coronary artery of rincon heart without angina pectoris I25.10 HTN, goal below 130/80 I10 MEDICATION USE AGREEMENT [id number] Impingement syndrome, shoulder, left M75.42 DDD (degenerative disc disease), lumbar M51.36 Long QT interval R94.31 Unspecified atrial fibrillation ([facility]) I48.91 Hypertensive kidney disease with stage 3a chronic kidney disease I12.9, N18.31 Major depressive disorder, recurrent, unspecified ([facility]) F33.9 Lumbar radiculopathy M54.16 B12 deficiency E53.8 Chronic kidney disease, stage 3a ([facility]) N18.31 Recurrent major depressive disorder, in partial remission ([facility]) F33.41 Chronic right-sided heart failure ([facility]) I50.812 Food insecurity Z59.41 Chronic heart failure with preserved ejection fraction ([facility]) I50.32 Labs: Lab Results Component Value Date/Time [...] Refill Contact: Telephone Call Contact Type: Medication Outcome: pending Total Time including non face to face (minutes): 5 documented in this encounter Plan of Treatment Upcoming Encounters Date Type Specialty Care Team Description 03/19/2023 Office Visit Pharmacy Rhonda Rubi [address] [place] [address] 04/24/2023 Office Visit Family Medicine Mushtaq Gutiérrez, DO [address] [place] [address] 07/22/2023 Nurse Only Rheumatology Pf, Nurse Rheum [address] [place] [address] 07/23/2023 Office Visit Cardiology Ning King PA-C [address] [place] [address] Scheduled Procedures Name Priority Associated Diagnoses Date/Ti [...] Additional history exists CKD PHOS USE SMARTSET 54818 10/12/202309/20, 10/12/2019, 08/18/2018, Additional history exists TSH 01/04/2024 01/03/2023, 03/20, 01/17/2021, Additional history exists CKD HGB USE SMARTSET 30811 01/25/202401/24, 01/24/2023, 01/03/2023, Additional history exists DXA [...] as of this encounter Visit Diagnoses Diagnosis Controlled substance agreement signed Encounter for long-term (current) use of other medications MEDICATION USE AGREEMENT Primary osteoarthritis of both shoulders documented in this encounter Advance Directives Documents on File Type Date Recorded Patient Transportation Coordinator Expl anation Advance Directives and Living Will 05/01/2022 ADVANCE DIRECTIVE / LIVING WILL Power of Assembler [place] 05/01/2022 POWER OF A TTORNEY Latest Code Status on File Code Status Date Activated Date Inactivated Comments Full Code 10/11/2019 7:48 PM 10/12/2019 8:11 PM This order reflects the patients wishes and were consensually agreed upon. Question Answer Comments Discussion of Advance Directives occurred with: Not Discussed Does the patient have a Living Will? No Does the patient have Health Care Power of Assembler [place]ches [employer] [place]? No Care Teams Sales Commissions Analyst Relationship Specialty Start Date End Date Mushtaq Gutiérrez, [address] [place] [address] PCP - General Family Medicine 02/15/17 documented as of this encounter
--- OUTSIDE RECORDS SUMMARY | 2023-07-26 06:31 | External Medical Summary | Summary of Care ---
Author Name Unknown Organization [facility] Address [address] [place] [address] Phone [phone] Care Team Providers Care Molecular Geneticist Name Role Phone IsidoroGiorgio ontiveros DO Primary Care Provider [phone] Reason for Visit * Reason Comments case management Encounter Details Date Type Department Care Team Description 02/20/2023 Composition [facility] Aide Internal Medicine [facility] [address] [place] [address] Mayda Lilly, RN Medical home patient encounter* Allergies Active Allergy Reactions Severity Noted Date Comments Salicylates Itching 11/27/1999 Aspirin Sulfa Antibiotics Other (Please comment) 1998 Unsure, happened during a hospital admission. documented as of this encounter (statuses as of 02/20/2023) Medications Medication Sig Dispensed Refills Start Date [...] the evening. 180 Capsule 5 11/02/2022 Active traMADol HCl 50 MG Oral Tablet (Ultram)Indications:C ontrolled substance agreement signed,MEDICATION USE AGREEMENT,Primary osteoarthritis of both shoulders Take 1 Tablet by mouth 2 times a day as needed for Pain, Moderate. 60 Tablet 0 12/10/2022 Active Montelukast Sodium 10 MG Oral Tablet [...] hours 10 Tablet 5 01/24/2023 Active Nystatin 607117 UNIT/GM External Cream Apply topically to affected area 2 times a day. To affacted area for two weeks. 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 VARIANTS OF MIGRAINE WITH INTRACTABLE MS GRAINE, SO STATED 10/23/2005 History of colonic polyps 02/23/2004 Overview: 03/03/15: ischemic colitis of the sigmoid colon repeat 5 years 06/27/09: normal repeat 5 years 03/22/04: seen on colonsocopy, repeat 2009 Irritable bowel syndrome 02/23/2004 [facility] current use of anticoagulant t herapy 09/23/2003 DYSFUNCT EUSTACHIAN TUBE 01/05/2003 Dyslipidemia, goal LDL below 70 06/23/20 Overview: Per Lipid Taxonomy. Anticoagulation management encounter 03/2002 History of DVT (deep vein thrombosis) History of pulmonary embolism 02/23/2002 documented as of this encounter (statuses as of 02/20/2023) Resolved Problems Problem Noted Date Resolved Date [...] as of this encounter (statuses as of 02/20/2023) Immunizations Name Administration Dates Next Due COVID-19 [...] Progress Notes * Mayda Lilly RN - 02/20/2023 3:11 PM EDT SITUATION: [facility] Tier 2 follow up BACKGROUND: [facility] 01/01-01/03 fall s/p CVA HX HF, CKD, HTN, A Fib, IBS, ASSESSMENT: Spoke with patient in follow up today. Reports she is "not real good" today. Has been having ongoing diarrhea for last 2-3 days-10-15 bm's a day; low energy and feeling shaky with intermittent lightheaded/dizzy feeling. Staying hydrated. Denies blood in stool, nausea, vomiting, fever. Hx of IBS. Has not taken any over the counter medications to treat. SpO2 was 90% today-denies worsening shortness of breath, cough, LE edema/swelling, confusion. Wearing her oxygen at bedtime. Did not weigh herself today. Received [facility] scale but has not taken out of the box yet. Will do so today. Used her new migraine medication 2 days ago and did not have any issues with it-feels that it did help her headache. Reports ongoing generalized body/joint pain. Taking Tylenol PRN-not helping that much. Scheduled with pain clinic tomorrow. Reviewed red flags: worsening diarrhea, AMS, edema/swelling. RECOMMENDATION: Advised to report worsening symptoms to PCP. Will send message to PCP for recommendations regardingdiarrhea. Will plan to follow up in one week. Mayda Lilly RN General Internal Medicine [address] [place] [address] [place] [address] documented in this encounter Plan of Treatment Upcoming Encounters Date Type Specialty Care Team Description 02/21/2023 Office Visit Rhonda Blackwood [address] [facility] [place] [address] 04/24/2023 Office Visit Family Medicine Giorgio Salas, DO [address] [place] [address] 07/22/2023 Nurse Only Rheumatology Pf, Nurse Rheum [address] [facility] [place] [address] 07/23/2023 Office Visit Cardiology Ning King, ALEA [address] [place] [address] Scheduled Procedures Name Priority Associated Diagnoses Date/Ti [...] Additional history exists CKD PHOS USE SMARTSET 16592 10/12/202309/20, 10/12/2019, 08/18/2018, Additional history exists TSH 01/04/2024 01/03/2023, 03/20, 01/17/2021, Additional history exists CKD HGB USE SMARTSET 92478 01/25/202401/24, 01/24/2023, 01/03/2023, Additional history exists DXA [...] Documents on File Type Date Recorded Patient Derrick Hand Expl anation Advance Directives and Living Will 05/01/2022 ADVANCE DIRECTIVE / LIVING WILL Power of Facility Service Associate 05/01/2022 POWER OF A TTORNEY Latest Code Status on File Code Status Date Activated Date Inactivated Comments Full Code 10/11/2019 7:48 PM 10/12/2019 8:11 PM This order reflects the patients wishes and were consensually agreed upon. Question Answer Comments Discussion of Advance Directives occurred with: Not Discussed Does the patient have a Living Will? No Does the patient have Health Care Power of Facility Service Associate? No Care Teams Molecular Geneticist Relationship Specialty Start Date End Date Giorgio Salas, DO [address] [place] [address] PCP - General Family Medicine 02/15/17 documented as of this encounter
--- OUTSIDE RECORDS SUMMARY | 2023-07-26 06:31 | External Medical Summary | Summary of Care ---
Author Name Unknown Organization [facility] Address [address] [place] [place] [address] Phone [phone] Care Team Providers Care Web Production Designer Name Role Phone YanelisGiorgio bailey Umesh ORO Primary Care Provider [phone] Reason for Visit * Reason Onset Date Comments case management 03/08/2023 Encounter Details Date Type Department Care Team Description 03/08/2023 V Block Saw Operator Telephone Ancillary 1st Floor, [place] [address] [facility] [place] [address] Melody Beltran LPN [address] [facility] [place] [address] case management Allergies Active Allergy Reactions Severity Noted Date Comments Salicylates Itching 11/27/1999 Aspirin Sulfa Antibiotics Other (Please comment) 1998 Unsure, happened during a hospital admission. documented as of this encounter (statuses as of 03/08/2023) Medications Medication Sig Dispensed Refills Start Date [...] hours 10 Tablet 5 01/24/2023 Active Nystatin 041434 UNIT/GM External Cream Apply topically to affected [...] as of this encounter (statuses as of 03/08/2023) Active Problems Problem Noted Date Chronic heart failure with preserved eje ction fraction 11/26/2022 Food insecurity 04/30/2022 Overview: Per [facility] Protocol Chronic right-sided heart failure [...] AGREEMENT 10/29/2017 Coronary artery disease invo lving [place] coronary artery of [place] heart without angina pectoris 10/28/2017 HTN, goal [...] History of positive PPD, untreated 08/10 Prothrombin 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 VARIANTS OF MIGRAINE WITH INTRACTABLE CT GRAINE, SO STATED 10/23/2005 History of colonic [...] as of this encounter (statuses as of 03/08/2023) Resolved Problems Problem Noted Date Resolved Date [...] as of this encounter (statuses as of 03/08/2023) Immunizations Name Administration Dates Next Due COVID-19 [...] Telephone Encounter - Melody Beltran LPN - 03/08/2023 12:54 PM EDT 1. Follow-up Routine 2. Attempted Phone Call First Attempt 3. Call Outcome Unable to Leave Message 4. Plan To attempt another outreach IVR trigger. Phone call to contact # 1- no answer and full mailbox Phone call to contact # 2- unable to let message Phone call to # 3, daughter Karon- no answer documented in this encounter Plan of Treatment Upcoming Encounters Date Type Specialty Care Team Description 03/19/2023 Office Visit Pharmacy [facility] [address] [place] [address] 04/24/2023 Office Visit Family Medicine Giorgio Salas, DO [address] [place] [address] 07/22/2023 Nurse Only Rheumatology Pf, Nurse Rheum [address] [facility] [place] [address] 07/23/2023 Office Visit Cardiology Ning King PA-C [address] [place] [address] Scheduled Procedures Name Priority Associated Diagnoses Date/Ti [...] Additional history exists CKD PHOS USE SMARTSET 33537 10/12/202309/20, 10/12/2019, 08/18/2018, Additional history exists TSH 01/04/2024 01/03/2023, 03/20, 01/17/2021, Additional history exists CKD HGB USE SMARTSET 51407 01/25/202401/24, 01/24/2023, 01/03/2023, Additional history exists DXA [...] Documents on File Type Date Recorded Patient Hull Drafter Expl anation Advance Directives and Living Will 05/01/2022 ADVANCE DIRECTIVE / LIVING WILL Power of Automatic Thread Winder 05/01/2022 POWER OF A TTORNEY Latest Code Status on File Code Status Date Activated Date Inactivated Comments Full Code 10/11/2019 7:48 PM 10/12/2019 8:11 PM This order reflects the patients wishes and were consensually agreed upon. Question Answer Comments Discussion of Advance Directives occurred with: Not Discussed Does the patient have a Living Will? No Does the patient have Health Care Power of Automatic Thread Winder? No Care Teams Web Production Designer Relationship Specialty Start Date End Date Giorgio Salas DO [address] [place] [address] PCP - General Family Medicine 02/15/17 documented as of this encounter
--- OUTSIDE RECORDS SUMMARY | 2023-07-26 06:31 | External Medical Summary | Summary of Care ---
Author Name Unknown Organization [facility] Address [address] [place] [address] Phone [phone] Care Team Providers Care Medical Billing Assistant Name Role Phone Giorgio Salas Primary Care Provider [phone] Reason for Visit * Reason Comments case management Encounter Details Date Type Department Care Team Description 03/04/2023 Registered Respiratory TechnicianTie Hacker Internal Medicine [facility] [address] [place] [address] Mayda Lilly, RN [address] [place] [address] Medical home patient encounter* Allergies Active Allergy Reactions Severity Noted Date Comments Salicylates Itching 11/27/1999 Aspirin Sulfa Antibiotics Other (Please comment) 1998 Unsure, happened during a hospital admission. 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 VARIANTS OF MIGRAINE WITH INTRACTABLE [place] GRAINE, SO STATED 10/23/2005 History of colonic polyps 02/23/2004 Overview: 03/03/15: ischemic colitis of the sigmoid colon repeat 5 years 06/27/09: normal repeat 5 years 03/22/04: seen on colonsocopy, repeat 2008 Irritable bowel syndrome 02/23/2004 alf current use of anticoagulant t herapy 09/23/2003 DYSFUNCT EUSTACHIAN TUBE 01/05/2003 Dyslipidemia, goal LDL below 70 06/23/20 02 Overview: Per Lipid Taxonomy. Anticoagulation management encounter 03/2002 History of DVT (deep vein thrombosis) History of pulmonary embolism 02/23/2002 documented as of this encounter (statuses as of 03/04/2023) Resolved Problems Problem Noted Date Resolved Date [...] as of this encounter (statuses as of 03/04/2023) Immunizations Name Administration Dates Next Due COVID-19 mRNA, LNP-s, No Pre serve, 2-Dose Series ([employer]) 08/29/2021,12/30/2020,12/07/2020 H1N1 2009 Influenza, IM 10/17/2009 Pneumococcal [...] Progress Notes * Mayda Lilly RN - 03/04/2023 1:20 PM EDT SITUATION: [facility] Tier 2 follow up BACKGROUND: [facility] 01/01-01/03 fall s/p CVA HX HF, CKD, HTN, A Fib, IBS ASSESSMENT: Spoke with patient's , Shaq today-patient was napping. Reports she is doing "ok" but she's "not setting the world on fire or anything". States she has had"runny" bowel movements the last 2-3 days. Taking Imodium which does help. Not reporting any nauseaor vomiting. No fevers. Woke with a migraine this morning and used her new migraine medication. Didnot check her oxygen level today-Continues to use oxygen at bedtime. [facility] weight today was 203.9 lbs. Reviewed red flags: worsening diarrhea, AMS, edema/swelling. RECOMMENDATION: Advised to report worsening symptoms to PCP. Will plan to follow up in one week. Mayda Lilly RN General Internal Medicine [facility] [address] [place] [address] documented in this encounter Plan of Treatment Upcoming Encounters Date Type Specialty Care Team Description 03/19/2023 Office Visit Pharmacy [facility] [address] [facility] [place] [address] 04/24/2023 Office Visit Family Medicine Giorgio Salas DO [address] [place] [address] 07/22/2023 Nurse Only Rheumatology Pf, Nurse Rheum [address] [facility] [place] [address] 07/23/2023 Office Visit Cardiology Ning King PA-C [address] [place] [address] Scheduled Procedures Name Priority Associated Diagnoses Date/Ti [...] Additional history exists CKD PHOS USE SMARTSET 53237 10/12/202309/20, 10/12/2019, 08/18/2018, Additional history exists TSH 01/04/2024 01/03/2023, 03/20, 01/17/2021, Additional history exists CKD HGB USE SMARTSET 90269 01/25/202401/24, 01/24/2023, 01/03/2023, Additional history exists DXA [...] Documents on File Type Date Recorded Patient Suture Polisher Expl anation Advance Directives and Living Will 05/01/2022 ADVANCE DIRECTIVE / LIVING WILL Power of It Applications Developer 05/01/2022 POWER OF A TTORNEY Latest Code Status on File Code Status Date Activated Date Inactivated Comments Full Code 10/11/2019 7:48 PM 10/12/2019 8:11 PM This order reflects the patients wishes and were consensually agreed upon. Question Answer Comments Discussion of Advance Directives occurred with: Not Discussed Does the patient have a Living Will? No Does the patient have Health Care Power of It Applications Developer? No Care Teams Medical Billing Assistant Relationship Specialty Start Date End Date Giorgio Salas, [address] [place] [address] PCP - General Family Medicine 02/15/17 documented as of this encounter
--- OUTSIDE RECORDS SUMMARY | 2023-07-26 06:31 | External Medical Summary | Summary of Care ---
Author Name Unknown Organization [facility] Address [address] [place] [address] Phone [phone] Care Team Providers Care Marine Oiler Name Role Phone IsidoroGiorgio ontiveros Primary Care Provider [phone] Reason for Visit * Reason Onset Date Comments case management 02/13/2023 Encounter Details Date Type Department Care Team Description 02/13/2023 Night Filler Telephone General Internal Medicine [facility] [address] [place], [place] [id number] Mayda Lilly, enrollment management coordinator Allergies Active Allergy Reactions Severity Noted Date Comments Salicylates Itching 11/27/1999 Aspirin Sulfa Antibiotics Other (Please comment) 1998 Unsure, happened during a hospital admission. documented as of this encounter (statuses as of 02/14/2023) Medications Medication Sig Dispensed Refills Start Date [...] hours 10 Tablet 5 01/24/2023 Active Nystatin 706806 UNIT/GM External Cream Apply topically to affected area 2 times a day. To affacted area for two weeks. 15 g 2 01/25/2023 Active Spironolactone 25 MG Oral Tablet (Aldactone) Take by mouth 0.5 Tablets in the morning. 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 VARIANTS OF MIGRAINE WITH INTRACTABLE [place] GRAINE, SO STATED 10/23/2005 History of colonic polyps 02/23/2004 Overview: 03/03/15: ischemic colitis of the sigmoid colon repeat 5 years 06/27/09: normal repeat 5 years 03/22/04: seen on colonsocopy, repeat 2008 Irritable bowel syndrome 02/23/2004 sap bods developer current use of anticoagulant t herapy 09/23/2003 DYSFUNCT EUSTACHIAN TUBE 01/05/2003 Dyslipidemia, goal LDL below 70 06/23/20 02 Overview: Per Lipid Taxonomy. Anticoagulation management encounter 03/2002 History of DVT (deep vein thrombosis) History of pulmonary embolism 02/23/2002 documented as of this encounter (statuses as of 02/14/2023) Resolved Problems Problem Noted Date Resolved Date [...] as of this encounter (statuses as of 02/14/2023) Immunizations Name Administration Dates Next Due COVID-19 mRNA, LNP-s, No Pre serve, 2-Dose Series ([employer]) 08/29/2021,12/30/2020,12/07/2020 H1N1 2009 Influenza, IM 10/17/2009 Pneumococcal [...] Telephone Encounter - Mayda Lilly RN - 02/14/2023 1:17 PM EDT Patient aware that per Dr. Guzman-patient should not take the nifedipine or the spironolactone any longer. Verbalized understanding. Active medication list updated. * Telephone Encounter - Mayda Lilly RN - 02/13/2023 5:05 PM EDT Spoke with patient today and reviewed medications. Patient reports she does not have nifedipine or spironolactone and is unsure if she is supposed to be taking these. Both medications are on her active list. Dr. Guzman-Please review/advise. Thank you. Mayda Lilly RNassistant warehouse manager Care Coordination and Integration [address] [place] [address] documented in this encounter Plan of Treatment Upcoming Encounters Date Type Specialty Care Team Description 02/21/2023 Office Visit Pharmacy [facility] [address] [facility] [place] [address] 04/24/2023 Office Visit Family Medicine Giorgio Salas, [address] [place] [address] 07/22/2023 Nurse Only Rheumatology Pf, Nurse Rheum [address] [place] [address] Dr [place] [address] 07/23/2023 Office Visit Cardiology Ning King PA-C [address] [place] [address] Scheduled Procedures Name Priority Associated Diagnoses Date/Ti [...] for Pts 12 and Over 04/09/2023 04/09/2022 GFR 07/26/2023 01/24/2023, 12/17, 11/29/2022, Additional history exists CKD PHOS USE SMARTSET 05658 10/12/202309/20, 10/12/2019, 08/18/2018, Additional history exists TSH 01/04/2024 01/03/2023, 03/20, 01/17/2021, Additional history exists CKD HGB USE SMARTSET 15844 01/25/202401/24, 01/24/2023, 01/03/2023, Additional history exists DXA Scan 04/16/2029 04/16/2022, 02/16, 12/07/2013, Additional history exists COLONOSCOPY-EVERY 5 YRS AGES 18-100 Discontinued 03/03/2015, 06/27/2009, 03/20/2004 Pneumococcal Vaccine: 65+ Years Completed 09/26/2015, 06/23/2008 Influenza Vaccine (FLU shot) Completed 05/01/2022, 09/11/2021, 09/11/2021, Additional history exists GARDASIL-HPV IMMUNIZATION SERIES [...] Documents on File Type Date Recorded Patient Plant Accountant Expl anation Advance Directives and Living Will 05/01/2022 ADVANCE DIRECTIVE / LIVING WILL Power of Integrated Logistics Support Manager 05/01/2022 POWER OF A TTORNEY Latest [...] the patient have Health Care Power of Integrated Logistics Support Manager? No Care Teams Marine Oiler Relationship Specialty Start Date End Date Giorgio Salas, [address] [place] [address] PCP - General Family Medicine 02/15/17 documented as of this encounter
--- OUTSIDE RECORDS SUMMARY | 2023-07-26 06:31 | External Medical Summary | Summary of Care ---
Author Name Unknown Organization [facility] Address [address] [place] [address] Phone [phone] Care Team Providers Care Sample Display Preparer Name Role Phone IsidoroGiorgio ontiveros Primary Care Provider [phone] Reason for Visit * Reason Onset Date Comments case management 02/13/2023 Encounter Details Date Type Department Care Team Description 02/13/2023 Proposal Manager Telephone General Internal Medicine [facility] [address] [place], [place] [id number] Mayda Lilly, manager wealth management Allergies Active Allergy Reactions Severity Noted [...] hours 10 Tablet 5 01/24/2023 Active Nystatin 003747 UNIT/GM External Cream Apply topically to affected [...] AGREEMENT 10/29/2017 Coronary artery disease invo lving [place] coronary artery of [place] heart without angina pectoris 10/28/2017 HTN, goal [...] History of positive PPD, untreated 08/10 Prothrombin [id number] mutation 02/16/2013 Overview: heterozygous for the [id number] mutation Family history of prothrombin gene mutat [...] colonsocopy, repeat 2008 Irritable bowel syndrome 02/23/2004 long term current use of anticoagulant t herapy 09/23/2003 [...] mRNA, LNP-s, No Pre serve, 2-Dose Series ([employer] 08/29/2021,12/30/2020,12/07/2020 H1N1 2009 Influenza, IM 10/17/2009 Pneumococcal [...] encounter Miscellaneous Notes * Telephone Encounter - SALVATORE Morelos - 02/15/2023 12:28 PM EDT Made pt's aware and they expressed understanding. He going to relay message to pt * Telephone Encounter - SALVATORE Morelos - 02/14/2023 1:01 PM EDT Called and pt was sleeping. Pt's will have her return call. Ok to relay Dr Álvarez's info when call is returned * Telephone Encounter - America Álvarez MD - 02/14/2023 12:46 PM EDT When I prescribed it did not come up as having an interaction with her other medications. When she goes to the pharmacy she can also ask the pharmacist if there is any interaction. * Telephone Encounter - SALVATORE Morelos - 02/14/2023 9:11 AM EDT Spoke to pt. She is concerned about taking Reyvow with all of her other medications. She wants to make sure none of her medications with interfere with the Reyvow. Would like the ok from Dr Álvarez to take it. * Telephone Encounter - Mayda Lilly RN - 02/13/2023 5:00 PM EDT Patient has questions regarding the new migraine medication-Reyvow. She is concerned about the sideeffects and recommendations on the informational pamphlet and is requesting a call back to discuss. Nursing staff-please assist. Thank you. documented in this encounter Plan of Treatment Upcoming Encounters Date Type Specialty Care Team Description 02/21/2023 Office Visit Pharmacy [facility] [address] [place] [address] 04/24/2023 Office Visit Family Medicine Giorgio Salas, DO [address] [place] [address] 07/22/2023 Nurse Only Rheumatology Pf, Nurse Rheum [address] [facility] [place] [address] 07/23/2023 Office Visit Cardiology Ning King PA-C [address] [place] [address] Scheduled Procedures Name Priority Associated Diagnoses Date/Ti [...] Additional history exists CKD PHOS USE SMARTSET 33826 10/12/202309/20, 10/12/2019, 08/18/2018, Additional history exists TSH 01/04/2024 01/03/2023, 03/20, 01/17/2021, Additional history exists CKD HGB USE SMARTSET 29286 01/25/202401/24, 01/24/2023, 01/03/2023, Additional history exists DXA [...] Documents on File Type Date Recorded Patient Highway Engineering Technician Expl anation Advance Directives and Living Will 05/01/2022 ADVANCE DIRECTIVE / LIVING WILL Power of Log Processor Operator 05/01/2022 POWER OF A TTORNEY Latest [...] the patient have Health Care Power of Log Processor Operator? No Care Teams Sample Display Preparer Relationship Specialty Start Date End Date Giorgio Salas, DO [address] [place] [address] PCP - General Family Medicine 02/15/17 documented as of this encounter
--- OUTSIDE RECORDS SUMMARY | 2023-07-26 06:31 | External Medical Summary | Summary of Care ---
Author Name Unknown Organization [facility] Address [address] [place] [address] Phone [phone] Care Team Providers Care Buckle Strap Puncher Name Role Phone IsidoroGiorgio ontiveros Primary Care Provider [phone] Reason for Visit * Reason Onset Date Comments case management 02/20/2023 Encounter Details Date Type Department Care Team Description 02/20/2023 Clicking Machine Operator Telephone General Internal Medicine [facility] [address] [place], [place] [phone] Mayda Lilly, fisheries management biologist Allergies Active Allergy Reactions Severity Noted Date Comments Salicylates Itching 11/27/1999 Aspirin Sulfa Antibiotics Other (Please comment) 1998 Unsure, happened during a hospital admission. documented as of this encounter (statuses as of 02/21/2023) Medications Medication Sig Dispensed Refills Start Date [...] hours 10 Tablet 5 01/24/2023 Active Nystatin 871460 UNIT/GM External Cream Apply topically to affected area 2 times a day. To affacted area for two weeks. 15 g 2 01/25/2023 Active documented as of this encounter (statuses as of 02/21/2023) Active Problems Problem Noted Date Chronic heart [...] History of positive PPD, untreated 08/10 Prothrombin [id number] mutation 02/16/2013 Overview: heterozygous for the T67199p mutation Family history of prothrombin gene mutat ion 02/11/2013 GERD (gastroesophageal reflux disease) 0 09/24/2012 Asthma, mild persistent 07/19/2011 Hypoxemia 12/29/2010 Overview: Oxygen required Hypothyroidism 11/15/2010 Dependence on supplemental oxygen 2009 Nocturnal hypoxia 01/06/2010 Overview: Seen on overnight oximetry Dyslipidemia 08/08/2009 Overview: Per Lipid Taxonomy. VARIANTS OF MIGRAINE WITH INTRACTABLE [place] GRAINE, SO STATED 10/23/2005 History of colonic polyps 02/23/2004 Overview: 03/03/15: ischemic colitis of the sigmoid colon repeat 5 years 06/27/09: normal repeat 5 years 03/22/04: seen on colonsocopy, repeat 2009 Irritable bowel syndrome 02/23/2004 half-way current use of anticoagulant t herapy 09/23/2003 DYSFUNCT EUSTACHIAN TUBE 01/05/2003 Dyslipidemia, goal LDL below 70 06/23/20 Overview: Per Lipid Taxonomy. Anticoagulation management encounter 03/2002 History of DVT (deep vein thrombosis) History of pulmonary embolism 02/23/2002 documented as of this encounter (statuses as of 02/21/2023) Resolved Problems Problem Noted Date Resolved Date [...] as of this encounter (statuses as of 02/21/2023) Immunizations Name Administration Dates Next Due COVID-19 [...] Telephone Encounter - Mayda Lilly RN - 02/21/2023 9:10 AM EDT Spoke with patient and advised of below. Reports she is feeling a little better today. States she did take an Imodium last night and her symptoms have improved. Denies any diarrhea today. Recommendedto contact PCP office if symptoms recur. Verbalized understanding. * Telephone Encounter - Giorgio Salas DO - 02/20/2023 4:39 PM EDT Okay to try imodium but if no better should schedule visit * Telephone Encounter - Mayda Lilly RN - 02/20/2023 3:34 PM EDT SITUATION: Diarrhea BACKGROUND: Hx IBS, HF, A Fib, CKD CVA 01/01 ASSESSMENT: Reports she is "not real good" today. Having ongoing diarrhea for last 2-3 days -10 to 15 bm's a day; low energy and feeling shaky with intermittent lightheaded/dizzy feeling. Staying hydrated. Denies blood in stool, nausea, vomiting, fever. Hx of IBS. Has not taken any over the counter medicationsto treat. RECOMMENDATION: Will send message to PCP for recommendations. Dr. Salas - Please advise recommendations. Patient has not taken any OTC medications to treat diarrhea. Has used imodium in the past without any issues. She declined an acute visit today as she was worried about being away from the bathroom. Thank you. Mayda Lilly RNsanding machine operator Care Coordination and Integration [address] [place] [address] [address] [place] [address] documented in this encounter Plan of Treatment Upcoming Encounters Date Type Specialty Care Team Description 02/21/2023 Office Visit [facility] [address] [place] [address] 04/24/2023 Office Visit Family Medicine Giorgio Salas, DO [address] [place] [address] 07/22/2023 Nurse Only Rheumatology Pf, Nurse Rheum [address] [facility] [place], [place] [address] 07/23/2023 Office Visit Cardiology Ning King PA-C [address] [place] [address] Scheduled Procedures Name Priority Associated Diagnoses Date/Ti [...] Additional history exists CKD PHOS USE SMARTSET 61200 10/12/202309/20, 10/12/2019, 08/18/2018, Additional history exists TSH 01/04/2024 01/03/2023, 03/20, 01/17/2021, Additional history exists CKD HGB USE SMARTSET 60213 01/25/202401/24, 01/24/2023, 01/03/2023, Additional history exists DXA [...] Documents on File Type Date Recorded Patient Histology Technician Expl anation Advance Directives and Living Will 05/01/2022 ADVANCE DIRECTIVE / LIVING WILL Power of Corporate Banking Officer 05/01/2022 POWER OF A TTORNEY Latest Code Status on File Code Status Date Activated Date Inactivated Comments Full Code 10/11/2019 7:48 PM 10/12/2019 8:11 PM This order reflects the patients wishes and were consensually agreed upon. Question Answer Comments Discussion of Advance Directives occurred with: Not Discussed Does the patient have a Living Will? No Does the patient have Health Care Power of Corporate Banking Officer? No Care Teams Buckle Strap Puncher Relationship Specialty Start Date End Date Giorgio Salas, [address] [place] [address] PCP - General Family Medicine 02/15/17 documented as of this encounter
--- OUTSIDE RECORDS SUMMARY | 2023-07-26 06:32 | External Medical Summary | Summary of Care ---
Author Name Unknown Organization [facility] Address [address] [facility] [place] [address] Phone [phone] Care Team Providers Care Warp Starter Name Role Phone IsidoroGiorgio ontiveros Primary Care Provider [phone] Reason for Visit * Reason Comments Hospital Follow-Up [facility] 01/01-01/03/23. B ilateral LE edema. Intermittent chest heaviness. Dizziness quick movements or standing up and last a few seconds. Denies chest pain, SOB and palpitations. Encounter Details Date Type Department Care Team Description 01/24/2023 Office Visit Cardiology, [facility] [address] [facility] [place] [id number] Roger Guzman, [address] [facility] [place] [address] Chest heaviness* Allergies Active Allergy Reactions Severity Noted Date [...] the morning. 30 Tablet 0 03/02/2022 Active Spironolactone 25 MG Oral Tablet (Aldactone) Take by mouth 0.5 Tablets in the morning. 30 Tablet 5 04/12/2022 Active Pantoprazole Sodium 40 MG Oral Tablet [...] skin daily. 30 Patch 0 12/27/2022 Active NIFEdipine ER Osmotic Release 30 MG Oral Tablet Extended Release 24 Hour (Procardia XL) 0 11/27/2022 Active Clopidogrel Bisulfate 75 MG Oral Tablet (pLAVix) Take 1 Tablet by mouth in the morning. 30 Tablet 5 01/15/2023 Active Eliquis 5 MG Oral TabletIndications:His tory of pulmonary embolism Take 1 Tablet by mouth in the morning and 1 Tablet in the evening. 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 [...] mRNA, LNP-s, No Pre serve, 2-Dose Series ([employer]) 08/29/2021,12/30/2020,12/07/2020 H1N1 2009 Influenza, IM 10/17/2009 Pneumococcal [...] Sign Reading Time Taken Comments Blood Pressure 126/74 01/24/2023 9:43 AM EDT Pulse 84 01/24/2023 9:43 AM EDT Temperature - - Respiratory Rate 16 01/24/2023 9:43 AM EDT Oxygen Saturation - - Inhaled Oxygen Concentration - - Weight 96.7 kg (213 lb 3.2 oz) 01/24/2023 9:43 A M EDT Height - - Body Mass Index 35.48 04/09/2022 10:21 AM EDT documented in this [...] as of this encounter Progress Notes * Roger Guzman, DO - 01/24/2023 10:11 AM EDT Cardiology Outpatient Follow-up Anh Breaux is a 82 year old female who is seen for hospital follow-up. HPI: This is an 82-year-old female with mild coronary artery disease by cardiac catheterization 2017. She also has a history of diastolic heart failure along with right-sided heart failure due to obesity,hypertension and previous PE with DVT. In December she was in the hospital with a stroke. She is still recovering from that event but things are moving forward. She is brought here today by her in a wheelchair. She has no ongoing cardiac complaints. 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 Pulmonary embolus ([facility]) 1987 [place] with cholecystectomy Recurrent major depressive disorder, in partial remission ([facility]) 10/17/2021 Venous thrombosis DVT, recurrent Patient Active Problem List Diagnosis Code Anticoagulation management encounter Z51.81, Z79.01 History of DVT (deep vein thrombosis) Z86.718 History of pulmonary embolism Z86.711 Dyslipidemia, goal LDL below 70 E78.5 DYSFUNCT EUSTACHIAN TUBE H69.80 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 therapy Z79.01 History of colonic polyps Z86.010 Irritable bowel syndrome K58.9 VARIANTS OF MIGRAINE WITH INTRACTABLE MIGRAINE, SO STATED G43.819 Dyslipidemia E78.5 Dependence on supplemental oxygen Z99.81 Hypothyroidism E03.9 Hypoxemia R09.02 Asthma, mild persistent J45.30 GERD (gastroesophageal reflux disease) K21.9 Family history of prothrombin gene mutation Z83.2 Prothrombin Q44873Q mutation ([facility]) D68.52 History of positive PPD, untreated R76.11 Osteoarthrosis involving shoulder region M19.019 Enthesopathy of hip M76.899 Nocturnal hypoxia G47.34 Primary osteoarthritis of both knees M17.0 Osteoarthrosis, localized, primary, involving lower leg M17.10 Controlled substance agreement signed Z79.899 Body mass index (BMI) of 40.0 to 44.9 in adult ([facility]) Z68.41 Trochanteric bursitis of both hips M70.61, M70.62 Coronary artery disease involving [place] coronary artery of [place] heart without angina pectoris I25.10 HTN, goal below 130/80 I10 MEDICATION USE AGREEMENT GP6819 Impingement syndrome, shoulder, left M75.42 DDD (degenerative disc disease), lumbar M51.36 Long QT interval R94.31 Unspecified atrial fibrillation ([facility]) I48.91 Hypertensive kidney disease with stage 3a chronic kidney disease I12.9, N18.31 Major depressive disorder, recurrent, unspecified ([facility]) F33.9 Lumbar radiculopathy M54.16 B12 deficiency E53.8 Chronic kidney disease, stage 3a ([facility]) N18.31 Recurrent major depressive disorder, in partial remission ([facility]) F33.41 Chronic right-sided heart failure ([facility]) I50.812 Food insecurity Z59.41 Chronic heart failure with preserved ejection fraction ([facility]) I50.32 Past Surgical History: Procedure Laterality Date COLONOSCOPY 03/20/2004 diverticulosis, Dr Bearden, [facility], repeat in 5 years COLONOSCOPY 06/27/2009 diverticulosis, repeat 5 years COLONOSCOPY, DIAGNOSTIC (RECTUM) 03/03/2015 ischemic colitis, repeat 5 yrs/[facility] INJECT DX/THER SUBSTANCE INTERLAMINAR LUMBAR/SACRAL W IMAGE GUIDE 06/30/2018 INJECTION SPINE LUMBAR OR SACRAL performed by Stanislav Sanchez, DO at OR [facility] LIGATE/CUT OVIDUCT(S) Tubal Ligation MAMMOGRAM - BILATERAL 02/03/02 birad code 2 MAMMOGRAM - BILATERAL 02/04/03 birad code 2 MAMMOGRAM OUTSIDE PROCEDURE 09/2009 normal repeat in one year PARTIAL REMOVAL OF COLON 05/17/10 Sigmoid colon and resection with end to side anastomosis 05/17/10 Dr. Lemus at [facility] REMOVAL OF APPENDIX abt 1966 REMOVE CATARACT, INSERT LENS PROSTH 2008 Dr Metzger REMOVE GALLBLADDER abt 1989 PE REMOVE TONSILS & ADENOIDS, UNDER 12 SACROILIAC JOINT INJECT W/GUIDANCE 11/20/2018 INJECTION SACROILIAC JOINT performed by Stanislav Sanchez, DO at OR [facility] SACROILIAC JOINT INJECT W/GUIDANCE 06/29/2021 INJECTION SACROILIAC JOINT performed by Stanislav Sanchez, DO at OR [facility] TOTAL HYSTERECTOMY abt 1979 BSO for DUB/fibroids, Saturday Family History Problem Relation Age of Onset Stroke Mother 58 several Cancer Father 52 lung, smoker Arthritis Mother osteo Cancer Aunt (Unspecified) breast/colon/? Cancer Mother skin Other (CKD, ESRD, nephrolithiasis [Other]) None Social History Tobacco Use Smoking status: Never Smokeless tobacco: Never Vaping Use Vaping Use: Never used Substance Use Topics Alcohol use: Not Currently Comment: rare Drug use: No Review of patient's allergies indicates: Allergen Reactions Salicylates Itching Aspirin Sulfa Antibiotics Other (Please comment) Unsure, happened during a hospital admission. Current Outpatient Medications Medication Sig Dispense Refill [...] 1 Tablet in the morning. 30 Tablet Spironolactone 25 MG Oral Tablet (Aldactone) Take by mouth 0.5 Tablets in the morning. 30 Tablet 5 Pantoprazole Sodium 40 MG Oral Tablet Delayed Release (Protonix) TAKE ONE TABLET BY MOUTH DAILY90 Tablet 1 Levothyroxine Sodium 50 MCG Oral Tablet (Levoxyl) TAKE ONE TABLET BY MOUTH IN THE MORNING AT LEAST 30 MINUTES PRIOR TO BREAKFAST OR OTHER MEDS 90 Tablet 1 Carvedilol 12.5 MG Oral Tablet (Coreg) TAKE [...] 1 Puff before bedtime. 60 Each 11 DULoxetine HCl 30 MG Oral Capsule Delayed Release Particles (Cymbalta) Take 1 Capsule by mouth in the morning. Take with the 60 mg capsule. 90 Capsule 3 DULoxetine HCl 60 MG Oral Capsule Delayed Release Particles (Cymbalta) Take 1 Capsule by mouth in the morning. 90 Capsule 1 Gabapentin 100 MG Oral Capsule (Neurontin) Take 3 Capsules by mouth in the morning and 3 Capsules in the evening. 180 Capsule 5 traMADol HCl 50 MG Oral Tablet (Ultram) Take 1 Tablet by mouth 2 times a day as needed for Pain, Moderate. 60 Tablet 0 Montelukast Sodium 10 MG Oral Tablet (Singulair) Take 1 Tablet by mouth in the morning. 90 Tablet 1 NIFEdipine ER Osmotic Release 30 MG Oral Tablet Extended Release 24 Hour (Procardia XL) Clopidogrel Bisulfate 75 MG Oral Tablet (pLAVix) Take 1 Tablet by mouth in the morning. 30 Tablet 5 Eliquis 5 MG Oral Tablet Take 1 Tablet by mouth in the morning and 1 Tablet in the evening. 60 Tablet 5 Lidocaine 5 % External Patch (Lidoderm) Place 1 Patch over 12 hours topically on the skin daily. 30 Patch 0 No current facility-administered medications for this visit. ROS: Review of Systems: See HPI for pertinent positives. All other review of systems is negative. PHYSICAL EXAMINATION BP 126/74 | Pulse 84 | Resp 16 | Wt 96.7 kg (213 lb 3.2 oz) | BMI 35.48 kg/m | BSA 2.11 m Body mass index is 35.48 kg/m. General: no acute distress and stated age Head: normocephalic, no masses, lesions, tenderness or abnormalities Eyes: conjunctiva are pink and non-injected, sclera clear Neck: supple, no adenopathy, no bruits, normal jugular venous pulse, no hepatojugular reflux Chest: normal shape and normal respiratory effort Lungs: clear to auscultation and percussion Cardiac Exam: - regular rate & rhythm, no murmurs gallops or rubs - normal S1, normal S2 Pulses: 2(+) throughout Abdomen: abdomen soft, non-tender, no abnormal masses and no hepatosplenomegaly Musculoskeletal: no gait disturbance, no joint inflammation, no deforming arthritis Extremities: no edema and no cyanosis Neuro: grossly normal exam Laboratory Data Review: EKG today reveals sinus rhythm with an old left bundle branch block Impression: 1. Recent CVA 2. HFpEF 3. Chronic right heart failure 4. Stable CAD 5. History DVT and pulmonary emboli Plan: The patient is still recovering from her stroke but doing well. She will continue her current medications and we will see her again in 6 months or earlier if needed. This chart was completed in part utilizing [employer] Voice Recognition Software. Grammatical errors, random word insertions, prounoun errors, and incomplete sentences are an occasional consequence of this system due to software limitations, ambient noise, and hardware issues. Any formal questions or concerns about the content, text, or information contained within the body of this dictation should be directly addressed to the provider for clarification. I spent a total of 30-39 minutes (exact time 36 mins) on the date of service in preparation, delivery, and documentation of the care provided to Anh Breaux excluding any time spent in the performance of separately billed services. Roger Guzman DO Cardiology, [facility] [address] [place] [address] 01/24/2023 documented in this encounter Procedure Notes * Roger Guzman DO - 01/24/2023 9:43 AM EDTAssociated Order(s): EKG REASON FOR STUDY: Chest Heaviness CONCLUSIONS: Normal sinus rhythm with sinus arrhythmia Left bundle branch block Abnormal ECG When compared with ECG of 13-FEB-2022 13:26, No significant change was found Ventricular Rate: 87 Atrial Rate: 87 PA Interval: 172 QRS Duration: 152 QT/QTc: 434/522 ms P-R-T [place]: 75 : 56 : 82 degrees documented in this encounter Nursing Notes * Tonny Mahan LPN - 01/24/2023 9:43 AM EDT Patient identified by full name and date of Chief Complaint Patient presents with Hospital Follow-Up [facility] 01/01-01/03/23. Bilateral LE edema. Intermittent chest heaviness. Dizziness quick movements or standing up and last a few seconds. Denies chest pain, SOB and palpitations. Examination Room: 16 Name: Anh Breaux Date of : (1940). Reason for Visit: HD follow up Interim Hospitalization(s): [facility] 01/01-01/03/23 Problems/Concerns: See chief complaint Chest Pain/SOB: See chief complaint [facility] Discussed: Not applicable [facility] is a way you can talk to your provider online through e-mail. Would you like to sign up? I can activate it for you? DECLINES Patient was instructed to not get up on the exam table until directed and assisted by their provider; patient is to remain seated in the chair/ wheelchair/ exam table for fall prevention and safety reasons. Patient is aware to have assistance to step down off exam table with personnel. Patient voiced full comprehension of instructions. documented in this encounter Plan of Treatment Upcoming Encounters Date Type Specialty Care Team Description 02/21/2023 Office Visit Pharmacy [facility] [address] [place] [address] 04/24/2023 Office Visit Family Medicine Giorgio Salas, DO [address] [place] [address] 07/22/2023 Nurse Only Rheumatology Pf, Nurse Rheum [address] [facility] [place] [address] 07/23/2023 Office Visit Cardiology Ning King PA-C [address] [place] [address] Scheduled Procedures Name Priority Associated Diagnoses Date/Ti [...] Additional history exists CKD PHOS USE SMARTSET 69877 10/12/202309/20, 10/12/2019, 08/18/2018, Additional history exists TSH 01/04/2024 01/03/2023, 03/20, 01/17/2021, Additional history exists CKD HGB USE SMARTSET 45033 01/25/202401/24, 01/24/2023, 01/03/2023, Additional history exists DXA [...] Procedure Name Priority Date/Time Associated Diagnosis Comments PA ECG ROUTINE ECG W/LEAST 12 LDS W/I&R Routine 01/24/2023 9:43 AM EDT Chest heaviness documented in this encounter Results * EKG (01/24/2023 9:43 AM EDT) 01/24/2023 9:43 AM EDT Procedure Note Roger Guzman DO - 01/24/2023 9:43 AM EDT REASON FOR STUDY: Chest Heaviness CONCLUSIONS: Normal sinus rhythm with sinus arrhythmia Left bundle branch block Abnormal ECG When compared with ECG of 13-FEB-2022 13:26, No significant change was found Ventricular Rate: 87 Atrial Rate: 87 PA Interval: 172 QRS Duration: 152 QT/QTc: 434/522 ms P-R-T [place]: 75 : 56 : 82 degrees Roger Guzman DO EKG [facility] documented in this encounter Visit Diagnoses Diagnosis Chest heaviness- Primary Other chest pain documented in this encounter Advance Directives Documents on File Type Date Recorded Patient Reserves Clerk Expl anation Advance Directives and Living Will 05/01/2022 ADVANCE DIRECTIVE / LIVING WILL Power of Electronic Coils Supervisor 05/01/2022 POWER OF A TTORNEY Latest [...] the patient have Health Care Power of Electronic Coils Supervisor? No Care Teams Warp Starter Relationship Specialty Start Date End Date Giorgio Salas, DO [address] [place] [address] PCP - General Family Medicine 02/15/17 documented as of this encounter"
--- OUTSIDE RECORDS SUMMARY | 2023-07-26 06:32 | External Medical Summary | Summary of Care ---
Author Name Unknown Organization [facility] Address [address] [place] [address] Phone [phone] Care Team Providers Care Glue Reel Operator Name Role Phone Giorgio Salas DO Primary Care Provider [phone] Reason for Visit * Reason Comments case management Encounter Details Date Type Department Care Team Description 02/07/2023 Bag Loader Machine OperatorDebate Director Internal Medicine [facility] [address] [place] [address] Mayda Lilly, RN Medical home patient encounter* Allergies Active Allergy Reactions Severity Noted Date Comments Salicylates Itching 11/27/1999 Aspirin Sulfa Antibiotics Other (Please comment) 1998 Unsure, happened during a hospital admission. documented as of this encounter (statuses as of 02/07/2023) Medications Medication Sig Dispensed Refills Start Date [...] hours 10 Tablet 5 01/24/2023 Active Nystatin 122133 UNIT/GM External Cream Apply topically to affected area 2 times a day. To affacted area for two weeks. 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 Anticoagulation management encounter 03/2002 History of DVT (deep vein thrombosis) History of pulmonary embolism 02/23/2002 documented as of this encounter (statuses as of 02/07/2023) Resolved Problems Problem Noted Date Resolved Date [...] as of this encounter (statuses as of 02/07/2023) Immunizations Name Administration Dates Next Due COVID-19 mRNA, LNP-s, No Pre serve, 2-Dose Series ([employer]) 08/29/2021,12/30/2020,12/07/2020 H1N1 2009 Influenza, IM 10/17/2009 Pneumococcal [...] Progress Notes * Mayda Lilly RN - 02/07/2023 3:03 PM EDT 1. Follow-up Routine 2. Attempted Phone Call First Attempt 3. Call Outcome Unable to Leave Message 4. Plan To attempt another outreach documented in this encounter Plan of Treatment Upcoming Encounters Date Type Specialty Care Team Description 02/21/2023 Office Visit Pharmacy [facility] [address] [place] [address] 04/24/2023 Office Visit Family Medicine Giorgio Salas, DO [address] [place] [address] 07/22/2023 Nurse Only [facility]umatology Pf[facility] [address] [facility] [address] 07/23/2023 Office Visit Cardiology Ning King PA-C [address] [place] [address] Scheduled Procedures Name Priority Associated Diagnoses Date/Ti [...] Additional history exists CKD PHOS USE SMARTSET 30856 10/12/202309/20, 10/12/2019, 08/18/2018, Additional history exists TSH 01/04/2024 01/03/2023, 03/20, 01/17/2021, Additional history exists CKD HGB USE SMARTSET 31006 01/25/202401/24, 01/24/2023, 01/03/2023, Additional history exists DXA [...] Documents on File Type Date Recorded Patient Brick Sorter Expl anation Advance Directives and Living Will 05/01/2022 ADVANCE DIRECTIVE / LIVING WILL Power of Air Dispatcher 05/01/2022 POWER OF A TTORNEY Latest Code Status on File Code Status Date Activated Date Inactivated Comments Full Code 10/11/2019 7:48 PM 10/12/2019 8:11 PM This order reflects the patients wishes and were consensually agreed upon. Question Answer Comments Discussion of Advance Directives occurred with: Not Discussed Does the patient have a Living Will? No Does the patient have Health Care Power of Air Dispatcher? No Care Teams Glue Reel Operator Relationship Specialty Start Date End Date Giorgio Salas, DO [address] [place] [address] PCP - General Family Medicine 02/15/17 documented as of this encounter
--- OUTSIDE RECORDS SUMMARY | 2023-07-26 06:32 | External Medical Summary | Summary of Care ---
Author Name Unknown Organization [facility] Address [address] [facility] [place] [address] Phone [phone] Care Team Providers Care Fiction And Nonfiction Author Name Role Phone Giorgio Salas DO Primary Care Provider [phone] Reason for Referral * Evaluate & Treat - Unlimited Visits (Within 3 days (urgent)) - Authorized Specialty Diagnoses / Procedures Referred By Victoria burciaga Referred To Contact Repair Clerk Diagnoses Chronic heart failure with preserved ejection fraction (HCC) Chronic right-sided heart failure (HCC) Giorgio Salas DO [address] [place] [address] Referral ID Status Reason Start Date Expiration Date Visits Requested Visits Authorized [id number] Authorized Specialty Services Required 02/13/2023 1 1 Question Answer Referral Priority Within 3 days (urgent) Program Type Case Management Complex Case Management [facility] Device(s) Requested Scale Alarm Settings Standard per protocol Comments Requested Device(s): Scale Please specify if patient needs tray or patient is over 300 lbs: No Does the patient need a tray? (Used is patient does not have hard surface for scale) No Heart Failure IVR (Interactive Voice Response) Frequency Daily Time: morning after urination/before eating/drinking Device triggered (default) OR Specific Time: 8 weeks Reason for Visit * Reason Comments case management Encounter Details Date Type Department Care Team Description 02/13/2023 Repair ClerkHead Banquet Waitress Internal Medicine [facility] [place] [address] [place] [address] Mayda Lilly RN Medical home patient encounter*; Chronic heart failure with preserved ejection fraction (HCC); Chronic right-sided heart failure (HCC) Allergies Active Allergy Reactions Severity Noted Date Comments Salicylates Itching 11/27/1999 Aspirin Sulfa Antibiotics Other (Please comment) 1998 Unsure, happened during a hospital admission. documented as of this encounter (statuses as of 02/13/2023) Medications Medication Sig Dispensed Refills Start Date [...] the morning. 30 Tablet 5 04/12/2022 Active Additional Information Patient not taking.Reported on 02/13/2023 Pantoprazole Sodium 40 MG Oral Tablet Delayed Release (Protonix) TAKE ONE TABLET BY MOUTH DAILY 90 Tablet 1 07/08/2022 Active Levothyroxine Sodium 50 MCG Oral Tablet (Levoxyl) TAKE ONE TABLET BY MOUTH IN THE MORNING AT LEAST 30 MINUTES PRIOR TO BREAKFAST OR OTHER MEDS 90 Tablet 1 07/08/2022 Active Carvedilol 12.5 MG Oral Tablet (Coreg)Indications:H [...] 10/19/2022 Active Gabapentin 100 MG Oral Capsule (Neurontin)Indicatio ns:DDD (degenerative disc disease), lumbar Take 3 Capsules [...] Release 24 Hour (Procardia XL) 0 11/27/2022 Activ e Clopidogrel Bisulfate 75 MG Oral Tablet (pLAVix) [...] hours 10 Tablet 5 01/24/2023 Active Nystatin 373790 UNIT/GM External Cream Apply topically to affected area 2 times a day. To affacted area for two weeks. 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 VARIANTS OF MIGRAINE WITH INTRACTABLE [place] GRAINE, SO STATED 10/23/2005 History of colonic [...] as of this encounter (statuses as of 02/13/2023) Resolved Problems Problem Noted Date Resolved Date [...] as of this encounter (statuses as of 02/13/2023) Immunizations Name Administration Dates Next Due COVID-19 mRNA, LNP-s, No Pre serve, 2-Dose Series (FSI) 08/29/2021,12/30/2020,12/07/2020 H1N1 2009 Influenza, IM 10/17/2009 Pneumococcal [...] Progress Notes * Mayda Lilly RN - 02/13/2023 4:19 PM EDT Repair Clerk Progress Note: Date: 02/13/23 Assgned Patient Tier: 2 Connected with patient via telephone. Verified patient name/. Advised patient that call is beingrecorded for quality and training purposes. Assessment: Pt. noted the following: Reports she is "pretty good I guess". Denies any worsening shortness of breath, confusion, headaches, chest pain, dizziness at present time. Ambulating independently-no falls reported. Does get intermittent DONALDSON when she is more active. Checks her SpO2 daily-today was 92%. Wears oxygen 2lpm at bedtime. Reports bilateral ankle swelling is "not too bad today"-has been keeping her feet elevated. Does not check weight at home-agreeable to [facility] scale. Request sent. Has not started using the new migraine medication Reyvow yet-has questions regarding side effects and use-message sent to neurology regarding this. Denies any pain today. Reviewed medications-need clarification on nifedipine and spironalactone-patient does not have bottles-unsure if she is supposed to be taking. Message sent to Solid Waste Collection Worker. Reviewed red flags: worsening shortness of breath, edema/swelling, falls, headaches. Advised to report any changes to PCP. Will plan to follow up in one week. Did you receive an alert for an annual wellness visit? No Is this call for a hospital, shelter or rehab facility discharge to home? No Medication Reconciliation: Medication Reconciliation completed: yes Review of Current goals: Discussed the following patient-centered CM goals with the patient during this discussion: -HEART FAILURE: Achieve successful management of heart failure. -Status: On Track Taking medications. Following with Cardiology. No recent exacerbation. -SAFETY: Prevent falls or injuries -Status: On Track Ambulates independently. No recent falls reported. -Prevention: Prevent admission/readmission -Status: On Track Attending appointments. No recent utilization. COPD Patient: No CHF Patient: YES Reinforced fluid restriction and low sodium diet. , Swelling: denies CM Plan: Reviewed 3 Red Flags with patient. Advised to call CM with any of the following: Red Flag 1: edema/swelling, Red Flag 2: worsening shortness of breath or Red Flag 3: falls, Repair Clerk will follow-up with mechanical specialist regarding medication questions. and RPM ordered for patient: [facility] Bluetooth Scale Remote Patient Monitoring: [facility] Scale Offered. Patient Agreeable. Will initiate process to have device sent/installed. Plan for Future Contacts: Plan to follow up within 1 week to check progress on the following goals/needs as above. Planned contacts from the following parties will occur this week: N/A as additional contacts per workflow. Advancement/Closure Plan: Keep patient at current Tier with reassessment per workflow. Patient provided CM contact information and encouraged to call with any changes in condition. SNP Member? No PCP Notified of enrollment in CM/HM program: Yes Is Provider in agreement with POC? Yes Mayda Lilly, RN Outpatient Case Management documented in this encounter Plan of Treatment Upcoming Encounters Date Type Specialty Care Team Description 02/21/2023 Office Visit Pharmacy [facility] [address] [place] [address] 04/24/2023 Office Visit Family Medicine Giorgio Salas, DO [address] [place] [address] 07/22/2023 Nurse Only Rheumatology Pf, Nurse Rheum [address] [facility] [place] [address] 07/23/2023 Office Visit Cardiology Ning King PA-C [address] [place] [address] Scheduled Procedures Name Priority Associated Diagnoses Date/Ti me COLONOSCOPY FLEXIBLE PROXIMAL DIAGNOSTIC Recall History of colon polyps Scheduled Referrals Name Type Priority Associated Diagnoses Orde r Schedule REMOTE PATIENT MONITORING REFERRAL Referral Within 3 days (urgent) Chronic heart failure with preserved ejection fraction (HCC) Chronic right-sided heart failure (HCC) Ordered: 02/13/2023 Health Maintenance Due Date Last Done Comments [...] Additional history exists CKD PHOS USE SMARTSET 07989 10/12/202309/20, 10/12/2019, 08/18/2018, Additional history exists TSH 01/04/2024 01/03/2023, 03/20, 01/17/2021, Additional history exists CKD HGB USE SMARTSET 98135 01/25/202401/24, 01/24/2023, 01/03/2023, Additional history exists DXA [...] home patient encounter- Primary Other specified examination Chronic heart failure with preserved ejection fraction (HCC) Chronic right-sided heart failure (HCC) Congestive heart failure, unspecified documented in this encounter Advance Directives Documents on File Type Date Recorded Patient Slimer Expl anation Advance Directives and Living Will 05/01/2022 ADVANCE DIRECTIVE / LIVING WILL Power of Material Control Specialist 05/01/2022 POWER OF A TTORNEY Latest Code Status on File Code Status Date Activated Date Inactivated Comments Full Code 10/11/2019 7:48 PM 10/12/2019 8:11 PM This order reflects the patients wishes and were consensually agreed upon. Question Answer Comments Discussion of Advance Directives occurred with: Not Discussed Does the patient have a Living Will? No Does the patient have Health Care Power of Material Control Specialist? No Care Teams Fiction And Nonfiction Author Relationship Specialty Start Date End Date Giorgio Salas, DO [address] [place] [address] PCP - General Family Medicine 02/15/17 documented as of this encounter
--- OUTSIDE RECORDS SUMMARY | 2023-07-26 06:32 | External Medical Summary | Summary of Care ---
Author Name Unknown Organization [facility] Address [address] [place] [address] Phone [phone] Care Team Providers Care Oil Speculator Name Role Phone Giorgio Salas DO Primary Care Provider [phone] Reason for Visit * Reason Comments case management Encounter Details Date Type Department Care Team Description 01/31/2023 Surgical TechnologistExchange Floor Manager Internal Medicine [facility] [address] [place] [address] Mayda Lilly, RN Medical home patient encounter* Allergies Active Allergy Reactions Severity Noted Date Comments Salicylates Itching 11/27/1999 Aspirin Sulfa Antibiotics Other (Please comment) 1998 Unsure, happened during a hospital admission. documented as of this encounter (statuses as of 01/31/2023) Medications Medication Sig Dispensed Refills Start Date [...] hours 10 Tablet 5 01/24/2023 Active Nystatin 413507 UNIT/GM External Cream Apply topically to affected area 2 times a day. To affacted area for two weeks. 15 g 2 01/25/2023 Active documented as of this encounter (statuses as of 01/31/2023) Active Problems Problem Noted Date Chronic heart failure with preserved eje ction fraction 11/26/2022 Food insecurity 04/30/2022 Overview: Per [facility] Protocol Chronic right-sided heart failure [...] AGREEMENT 10/29/2017 Coronary artery disease invo lving [place] coronary artery of [place] heart without angina pectoris 10/28/2017 HTN, goal [...] History of positive PPD, untreated 08/10 Prothrombin [id number] mutation 02/16/2013 Overview: heterozygous for the [id number] mutation Family history of prothrombin gene mutat ion 02/11/2013 GERD (gastroesophageal reflux disease) 0 09/24/2012 Asthma, mild persistent 07/19/2011 Hypoxemia 12/29/2010 Overview: Oxygen required Hypothyroidism 11/15/2010 Dependence on supplemental oxygen 2009 Nocturnal hypoxia 01/06/2010 Overview: Seen on overnight oximetry Dyslipidemia 08/08/2009 Overview: Per Lipid Taxonomy. 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 Anticoagulation management encounter 03/2002 History of DVT (deep vein thrombosis) History of pulmonary embolism 02/23/2002 documented as of this encounter (statuses as of 01/31/2023) Resolved Problems Problem Noted Date Resolved Date [...] as of this encounter (statuses as of 01/31/2023) Immunizations Name Administration Dates Next Due COVID-19 mRNA, LNP-s, No Pre serve, 2-Dose Series ([employer]) 08/29/2021,12/30/2020,12/07/2020 H1N1 2009 Influenza, IM 10/17/2009 Pneumococcal [...] Progress Notes * Mayda Lilly RN - 01/31/2023 2:45 PM EDT SITUATION: CCM Tier 2 f/u CHAO wk 3 BACKGROUND: [facility] 01/01-01/03 fall s/p CVA ASSESSMENT: Spoke with patient's , Shaq in follow up. Reports patient is currently napping. States she has been "really hurting" from her arthritis this week. Taking her gabapentin, Tylenol and Tramadol PRN. [facility] PT/OT still seeing weekly-using wheelchair to get around her house. Able to ambulate short distances w/ walker and assistance. Denies any falls. Still having bilateral LE edema/swelling but not worsening. Follows with Cardiology-last visit 01/24/23. Has occasional wheezing but is not short of breath. Uses oxygen at bedtime-checks SpO2 daily-today was 94%. notes she complains of a "dizzy, fuzzy feeling" when she gets tired-resolves with rest. Uses inhalers as prescribed. Neurologist recently discontinued her Imitrex and prescribed Reyvow 50 mg. Last visit 01/24/23. Scheduled to see [facility] pharmacist 02/21/23. Reviewed red flags: AMS, falls, headaches. RECOMMENDATION: Advised to report any worsening symptoms to PCP. Will plan to follow up in one week. Mayda Lilly RN General Internal Medicine [facility] [place] [address] [place] [address] documented in this encounter Plan of Treatment Upcoming Encounters Date Type Specialty Care Team Description 02/21/2023 Office Visit Pharmacy [facility] [address] [place] [address] [place] [address] 04/24/2023 Office Visit Family Medicine Giorgio Salas, DO [address] [place] [address] 07/22/2023 Nurse Only Rheumatology Pf, Nurse Rheum [address], [place] [address] 07/23/2023 Office Visit Cardiology Ning King PA-C [address] [place] [address] Scheduled Procedures Name Priority Associated Diagnoses Date/Ti [...] Additional history exists CKD PHOS USE SMARTSET 19951 10/12/202309/20, 10/12/2019, 08/18/2018, Additional history exists TSH 01/04/2024 01/03/2023, 03/20, 01/17/2021, Additional history exists CKD HGB USE SMARTSET 42997 01/25/202401/24, 01/24/2023, 01/03/2023, Additional history exists DXA [...] Documents on File Type Date Recorded Patient Ortho Rn Expl anation Advance Directives and Living Will 05/01/2022 ADVANCE DIRECTIVE / LIVING WILL Power of Assistant Dean 05/01/2022 POWER OF A TTORNEY Latest Code Status on File Code Status Date Activated Date Inactivated Comments Full Code 10/11/2019 7:48 PM 10/12/2019 8:11 PM This order reflects the patients wishes and were consensually agreed upon. Question Answer Comments Discussion of Advance Directives occurred with: Not Discussed Does the patient have a Living Will? No Does the patient have Health Care Power of Assistant Dean? No Care Teams Oil Speculator Relationship Specialty Start Date End Date Giorgio Salas, [address] [place] [address] PCP - General Family Medicine 02/15/17 documented as of this encounter
--- OUTSIDE RECORDS SUMMARY | 2023-07-26 06:32 | External Medical Summary | Summary of Care ---
Author Name Unknown Organization [facility] Address [address] [place] [address] Phone [phone] Care Team Providers Care Telehealth Coordinator Name Role Phone IsidoroGiorgio ontiveros Primary Care Provider [phone] Reason for Visit * Reason Onset Date Comments case management 01/23/2023 Encounter Details Date Type Department Care Team Description 01/23/2023 Sweatband Flanger Telephone General Internal Medicine [facility] [address] [place], [place] [id number] Mayda Lilly, manager management Allergies Active Allergy Reactions Severity Noted Date Comments Salicylates Itching 11/27/1999 Aspirin Sulfa Antibiotics Other (Please comment) 1998 Unsure, happened during a hospital admission. documented as of this encounter (statuses as of 02/01/2023) Medications Medication Sig Dispensed Refills Start Date [...] as of this encounter (statuses as of 02/01/2023) Active Problems Problem Noted Date Chronic heart [...] AGREEMENT 10/29/2017 Coronary artery disease invo lving [place] coronary artery of [place] heart without angina pectoris 10/28/2017 HTN, goal [...] History of positive PPD, untreated 08/10 Prothrombin [id number] mutation 02/16/2013 Overview: heterozygous for the G89965v mutation Family history of prothrombin gene mutat ion 02/11/2013 GERD (gastroesophageal reflux disease) 0 09/24/2012 Asthma, mild persistent 07/19/2011 Hypoxemia 12/29/2010 Overview: Oxygen required Hypothyroidism 11/15/2010 Dependence on supplemental oxygen 2009 Nocturnal hypoxia 01/06/2010 Overview: Seen on overnight oximetry Dyslipidemia 08/08/2009 Overview: Per Lipid Taxonomy. 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 Anticoagulation management encounter 03/2002 History of DVT (deep vein thrombosis) History of pulmonary embolism 02/23/2002 documented as of this encounter (statuses as of 02/01/2023) Resolved Problems Problem Noted Date Resolved Date [...] as of this encounter (statuses as of 02/01/2023) Immunizations Name Administration Dates Next Due COVID-19 mRNA, LNP-s, No Pre serve, 2-Dose Series ([employer]) 08/29/2021,12/30/2020,12/07/2020 H1N1 2009 Influenza, IM 10/17/2009 Pneumococcal [...] Miscellaneous Notes * Telephone Encounter - WAYLON Azul - 01/23/2023 12:13 PM EDT Spoke with pt's spouse Shaq. Pt is scheduled 01/24/[address] Guzman. * Telephone Encounter - Mayda Lilly RN - 01/23/2023 11:34 AM EDT SITUATION: Requesting sooner Cardiology visit BACKGROUND: New mild bilateral LE edema/swelling Intermittent chest heaviness [facility] 01/01-01/03 fall s/p CVA ASSESSMENT: Ongoing intermittent "chest heaviness". Reports new bilateral ankle and feet swelling-first noticed approximately two days ago. Taking her lasix 20 mg daily as prescribed. Denies shortness of breath. Ongoing "fuzzy" sensation in her head-feels it is occurring more frequently and lasts "a minute or so". Oxygen level 92% today. Wearing oxygen at bedtime. Seen by PCP 01/15 for hospital follow up. Message sent 01/16 regarding above issues. Ning King PA-C recommended earlier f/u visit. RECOMMENDATION: CM will message cardiology for sooner visit and to make aware of LE edema. Recommended ED eval if chest symptoms worsen. Dr. Barraza-Please advise any recommendations. Patient is not scheduled for follow up until July. Schedulers-Please assist with earlier appointment as requested. Thank you. Mayda Lilly RNhi lift operator Care Coordination and Integration [address] [place] [address] documented in this encounter Plan of Treatment Upcoming Encounters Date Type Specialty Care Team Description 02/21/2023 Office Visit Pharmacy [facility] [address] [facility] [place] [address] 04/24/2023 Office Visit Family Medicine Giorgio Salas, DO [address] [place] [address] 07/22/2023 Nurse Only Rheumatology Pf, Nurse Rheum [address] [facility] [place] [address] 07/23/2023 Office Visit Cardiology Ning King, ALEA [address] [place] [address] Scheduled Procedures Name Priority Associated Diagnoses Date/Ti [...] Additional history exists CKD PHOS USE SMARTSET 19502 10/12/202309/20, 10/12/2019, 08/18/2018, Additional history exists TSH 01/04/2024 01/03/2023, 03/20, 01/17/2021, Additional history exists CKD HGB USE SMARTSET 60622 01/25/202401/24, 01/24/2023, 01/03/2023, Additional history exists DXA [...] Documents on File Type Date Recorded Patient Precision Agronomist Expl anation Advance Directives and Living Will 05/01/2022 ADVANCE DIRECTIVE / LIVING WILL Power of Jointer Machine 05/01/2022 POWER OF A TTORNEY Latest Code Status on File Code Status Date Activated Date Inactivated Comments Full Code 10/11/2019 7:48 PM 10/12/2019 8:11 PM This order reflects the patients wishes and were consensually agreed upon. Question Answer Comments Discussion of Advance Directives occurred with: Not Discussed Does the patient have a Living Will? No Does the patient have Health Care Power of Jointer Machine? No Care Teams Telehealth Coordinator Relationship Specialty Start Date End Date Giorgio Salas, DO [address] [place] [address] PCP - General Family Medicine 02/15/17 documented as of this encounter
--- OUTSIDE RECORDS SUMMARY | 2023-07-26 06:32 | External Medical Summary | Summary of Care ---
Author Name Unknown Organization [facility] Address [address] [facility] [place] [address] Phone [phone] Care Team Providers Care Machine Builder Name Role Phone Yanelisleo Giorgio Umesh ORO Primary Care Provider [phone] Reason for Visit * Reason Comments Follow Up Encounter Details Date Type Department Care Team Description 11/26/2022 Office Visit Cardiology, [facility] [address] [place] [id number] Ning King PA-C [address] [place] [address] Chronic right-sided heart failure (HCC)*; HTN, goal below 130/80; Dyslipidemia, goal LDL below 70; Hyperkalemia; 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 documented as of this encounter (statuses as of 02/14/2023) Medications Medication Sig Dispensed Refills Start Date End Date Status OXYGENIndications: Hypoxemia,Body mass index 40 and over, adult,Organic sleep disorder Use 2 Liters per minute via nasal cannula while sleeping 1 each 99 0 Active VITAMIN D 1000 UNITS PO CAPSIndications:Se nile osteoporosis One capsule daily 30 Cap 5 4 Active acetaminophen (TYLENOL) 325 MG Tablet Take 2 Tablets by mouth every 6 hours as needed for Pain. 0 Active albuterol sulfate (PROVENTIL) (2.5 MG/3ML) 0.083% nebulizer solutionIndication s:Mild persistent asthma without complication Inhale 1 Vial via nebulizer every 4 hours as needed for Wheezing. 120 mL 5 0 Active Vitron-C 65-125 MG Oral Tablet (Iron-Vitamin C) Take by mouth 1 Tablet in the morning. 30 Tablet 0 2 Active Spironolactone 25 MG Oral Tablet (Aldactone) Take by mouth 0.5 Tablets in the morning. 30 Tablet 5 2 Active Pantoprazole Sodium 40 MG Oral Tablet Delayed Release (Protonix) TAKE ONE TABLET BY MOUTH DAILY 90 Tablet 1 2 Active Levothyroxine Sodium 50 MCG Oral Tablet (Levoxyl) TAKE ONE TABLET BY MOUTH IN THE MORNING AT LEAST 30 MINUTES PRIOR TO BREAKFAST OR OTHER MEDS 90 Tablet 1 2 Active Carvedilol 12.5 MG Oral Tablet (Coreg)Indications :HTN, goal below 130/80,Unspecified atrial fibrillation (HCC) TAKE [...] HFA 108 (90 Base) MCG/ACT Inhalation Aerosol SolutionIndication s:Mild persistent asthma without complication INHALE TWO PUFFS BY MOUTH EVERY FOUR HOURS NEEDED FOR WHEEZING 18 g 3 3 Active Fluticasone-Salmet obie 100-50 MCG/ACT Inhalation Aerosol Powder Breath Activated (Advair Diskus) Inhale 1 Puff by mouth in the morning and 1 Puff before bedtime. 60 Each 3 Active DULoxetine HCl 30 MG Oral Capsule Delayed Release Particles (Cymbalta) Take 1 Capsule by mouth in the morning. Take with the 60 mg capsule. 90 Capsule 3 3 Active DULoxetine HCl 60 MG Oral Capsule Delayed Release Particles (Cymbalta) Take 1 Capsule by mouth in the morning. 90 Capsule 1 3 Active Gabapentin 100 MG Oral Capsule (Neurontin)Indicat ions:DDD (degenerative disc disease), lumbar Take 3 Capsules by mouth in the morning and 3 Capsules in the evening. 180 Capsule 5 3 Active Montelukast Sodium 10 MG Oral Tablet (Singulair)Indicat ions:Seasonal allergic rhinitis, unspecified trigger TAKE ONE TABLET BY MOUTH DAILY 90 Tablet 1 2 12/11/19 23 Discontinued(Re fill) Vitamin C 500 MG Oral Tablet (Ascorbic Acid) Take 0.5 Tablets by mouth in the morning. 0 2 01/09/20 23 Discontinued(Me dication List Clean Up) SUMAtriptan Succinate 100 MG Oral TabletIndications: Migraine variant, intractable TAKE 1 TABLET BY MOUTH ONCE AT ONSET OF MIGRAINE. MAY TAKE AN ADDITIONAL TABLET 2 HOURS LATER IF NEEDED. NO MORE THAN 2 TABLETS IN 24 HOURS 6 Tablet 11 2 01/09/20 23 Discontinued(Me dication List Clean Up) Fluconazole 150 MG Oral Tablet (Diflucan) 0 3 01/09/20 23 Discontinued(Me dication List Clean Up) Eliquis 2.5 MG Oral Tablet (Apixaban) TAKE ONE TABLET BY MOUTH IN THE MORNING AND ONE TABLET AT BEDTIME 60 Tablet 5 3 01/09/20 23 Discontinued Amitriptyline HCl 50 MG Oral Tablet (Elavil) Take 1 Tablet by mouth at bedtime. 90 Tablet 3 3 01/09/20 23 Discontinued traMADol HCl 50 MG Oral Tablet (Ultram)Indication s:Controlled substance agreement signed,MEDICATION USE AGREEMENT,Primary osteoarthritis of both shoulders Take 1 Tablet by mouth 2 times a day as needed for Pain, Moderate. 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 09/23/2003 [...] mRNA, LNP-s, No Pre serve, 2-Dose Series (Neozone) 08/29/2021,12/30/2020,12/07/2020 H1N1 2009 Influenza, IM 10/17/2009 Pneumococcal [...] Never Smokeless Tobacco: Never Tobacco Cessation:Counseling Given: Yes Alcohol Use Standard Drinks/Week Comments Not Currently [...] Sign Reading Time Taken Comments Blood Pressure 122/66 11/26/2022 2:34 PM EDT Pulse 72 11/26/2022 2:34 PM EDT Temperature - - Respiratory Rate 20 11/26/2022 2:34 PM EDT Oxygen Saturation - - Inhaled Oxygen Concentration - - Weight 93.9 kg (207 lb) 11/26/2022 2:34 PM EDT Height - - Body Mass Index 34.45 04/09/2022 10:21 AM EDT documented in this [...] as of this encounter Progress Notes * Ning King PA-C - 11/26/2022 2:49 PM EDT Cardiology F/U: CHIEF COMPLAINT: Follow up history of nonobstructive CAD, diastolic and right sided HF; abnormal EKG, hypertension, dyslipidemia; mitral calcification SUBJECTIVE: Anh Breaux is a 82 year old female who returns today for routine cardiology follow-up. Last clinic evaluation approximately 6 months months ago with the undersigned. She carries a history abnormal EKG leading to diagnostic cardiac catheterization in 2018 which demonstrated mild nonobstructive CAD for which medical management was recommended. Other history includes diastolic and right sided heart failure, obesity, hypertension, dyslipidemia and chronic anticoagulation for history of DVT and PE. She presents today feeling well. She voices no acute cardiac complaints. No recent exertional chestpain or unusual shortness of breath. She notes diffuse pain but this is unchanged. Potassium was elevated several months ago and not rechecked. Not taking potassium supplements. No chest pain, shortness of breath, palpitations, dizziness, syncope or near syncope. No orthopnea,PND, or increased lower extremity edema. No fever, chills, cough, hematochezia, melena, or hemoptysis. Review of Systems: See HPI for pertinent positives. All others negative, other than those noted in HPI. 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 Z79.01 History of colonic polyps Z86.010 Irritable bowel syndrome K58.9 VARIANTS OF MIGRAINE WITH INTRACTABLE MIGRAINE, SO STATED G43.819 Dyslipidemia E78.5 Dependence on supplemental oxygen Z99.81 Hypothyroidism E03.9 Hypoxemia R09.02 Asthma, mild persistent J45.30 GERD (gastroesophageal reflux disease) K21.9 Family history of prothrombin gene mutation Z83.2 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 ([facility]) D68.52 History of positive PPD, untreated R76.11 Osteoarthrosis involving shoulder region M19.019 Enthesopathy of hip M76.899 Nocturnal hypoxia G47.34 Primary osteoarthritis of both knees M17.0 Osteoarthrosis, localized, primary, involving lower leg M17.10 Controlled substance agreement signed Z79.899 Body mass index (BMI) of 40.0 to 44.9 in adult ([facility]) Z68.41 Trochanteric bursitis of both hips M70.61, M70.62 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 I25.10 HTN, goal below 130/80 I10 MEDICATION USE AGREEMENT GV0014 Impingement syndrome, shoulder, left M75.42 DDD (degenerative disc disease), lumbar M51.36 Long QT interval R94.31 Unspecified atrial fibrillation ([facility]) I48.91 Hypertensive kidney disease with stage 3a chronic kidney disease I12.9, N18.31 Major depressive disorder, recurrent, unspecified ([facility]) F33.9 Lumbar radiculopathy M54.16 B12 deficiency E53.8 Chronic kidney disease, stage 3a (HCC) N18.31 Recurrent major depressive disorder, in partial remission (HCC) F33.41 Chronic right-sided heart failure ([facility]) I50.812 Food insecurity Z59.41 Social History Tobacco Use Smoking status: Never Smokeless tobacco: Never Vaping Use Vaping Use: Never used Substance Use Topics Alcohol use: Not Currently Comment: rare Drug use: No Family History Problem Relation Age of Onset Stroke Mother 58 several Cancer Father 52 lung, smoker Arthritis Mother osteo Cancer Aunt (Unspecified) breast/colon/? Cancer Mother skin Other (CKD, ESRD, nephrolithiasis [Other]) None Past Surgical History: Procedure Laterality Date COLONOSCOPY 03/20/2004 diverticulosis, Dr Bearden, [facility], repeat in 5 years COLONOSCOPY 06/27/2009 diverticulosis, repeat 5 years COLONOSCOPY, DIAGNOSTIC (RECTUM) 03/03/2015 ischemic colitis, repeat 5 yrs/[facility] INJECT DX/THER SUBSTANCE INTERLAMINAR LUMBAR/SACRAL W IMAGE GUIDE 06/30/2018 INJECTION SPINE LUMBAR OR SACRAL performed by Stanislav Sanchez DO at OR [facility] LIGATE/CUT OVIDUCT(S) Tubal Ligation MAMMOGRAM - BILATERAL 02/03/02 birad code 2 MAMMOGRAM - BILATERAL 02/04/03 birad code 2 MAMMOGRAM OUTSIDE PROCEDURE 09/2009 normal repeat in one year PARTIAL REMOVAL OF COLON 05/17/10 Sigmoid colon and resection with end to side anastomosis 05/17/10 Dr. Lemus at [facility] REMOVAL OF APPENDIX abt 1966 REMOVE CATARACT, INSERT LENS PROSTH 2008 Dr Metzger REMOVE GALLBLADDER abt 1989 PE REMOVE TONSILS & ADENOIDS, UNDER 12 SACROILIAC JOINT INJECT W/GUIDANCE 11/20/2018 INJECTION SACROILIAC JOINT performed by Stanislav Sanchez DO at OR [facility] SACROILIAC JOINT INJECT W/GUIDANCE 06/29/2021 INJECTION SACROILIAC JOINT performed by Stanislav Sanchez DO at OR [facility] TOTAL HYSTERECTOMY abt 1979 BSO for DUB/fibroids, Saturday Review of patient's allergies indicates: Allergen Reactions [...] Sodium 10 MG Oral Tablet (Singulair) TAKE ONE TABLET BY MOUTH DAILY 90 Tablet 1 Vitron-C 65-125 MG Oral Tablet (Iron-Vitamin C) Take by mouth 1 Tablet in the morning. 30 Tablet Vitamin C 500 MG Oral Tablet (Ascorbic Acid) Take 0.5 Tablets by mouth in the morning. Spironolactone 25 MG Oral Tablet (Aldactone) Take by mouth 0.5 Tablets in the morning. 30 Tablet 5 Pantoprazole Sodium 40 MG Oral Tablet Delayed Release (Protonix) TAKE ONE TABLET BY MOUTH DAILY90 Tablet 1 Levothyroxine Sodium 50 MCG Oral Tablet (Levoxyl) TAKE ONE TABLET BY MOUTH IN THE MORNING AT LEAST 30 MINUTES PRIOR TO BREAKFAST OR OTHER MEDS 90 Tablet 1 SUMAtriptan Succinate 100 MG Oral Tablet TAKE 1 TABLET BY MOUTH ONCE AT ONSET OF MIGRAINE. MAY TAKE AN ADDITIONAL TABLET 2 HOURS LATER IF NEEDED. NO MORE THAN 2 TABLETS IN 24 HOURS 6 Tablet 11 Carvedilol 12.5 MG Oral Tablet (Coreg) TAKE ONE TABLET BY MOUTH TWICE DAILY 180 Tablet 3 Furosemide 20 MG Oral Tablet (Lasix) TAKE ONE TABLET BY MOUTH IN THE MORNING 90 Tablet 3 Atorvastatin Calcium 20 MG Oral Tablet (Lipitor) TAKE ONE TABLET BY MOUTH DAILY 90 Tablet 3 Fluconazole 150 MG Oral Tablet (Diflucan) Eliquis 2.5 MG Oral Tablet (Apixaban) TAKE ONE TABLET BY MOUTH IN THE MORNING AND ONE TABLET ATBEDTIME 60 Tablet 5 Albuterol Sulfate HFA 108 (90 Base) MCG/ACT Inhalation Aerosol Solution INHALE TWO PUFFS BY MOUTH EVERY FOUR HOURS NEEDED FOR WHEEZING 18 g 3 Fluticasone-Salmeterol 100-50 MCG/ACT Inhalation Aerosol Powder Breath Activated (Advair Diskus) Inhale 1 Puff by mouth in the morning and 1 Puff before bedtime. 60 Each 11 Amitriptyline HCl 50 MG Oral Tablet (Elavil) Take 1 Tablet by mouth at bedtime. 90 Tablet 3 DULoxetine HCl 60 MG Oral Capsule [...] needed for Pain, Moderate. 60 Tablet 0 DULoxetine HCl 30 MG Oral Capsule Delayed Release Particles (Cymbalta) Take 1 Capsule by mouth in the morning. Take with the 60 mg capsule. 90 Capsule 3 No current facility-administered medications for this visit. OBJECTIVE/PHYSICAL EXAMINATION: BP 122/66 | Pulse 72 | Resp 20 | Wt 93.9 kg (207 lb) | BMI 34.45 kg/m | BSA 2.08 m Blood pressure my repeat 120/64 Wt Readings from Last 3 Encounters: 11/26/22 93.9 kg (207 lb) 05/28/22 89.8 kg (198 lb) 04/12/22 90.2 kg (198 lb 12 oz) Wt Readings from Last 3 Encounters: 11/26/22 93.9 kg (207 lb) 05/28/22 89.8 kg (198 lb) 04/12/22 90.2 kg (198 lb 12 oz) BP Readings from Last 4 Encounters: 11/26/22 122/66 10/12/22 112/76 05/28/22 116/74 04/12/22 106/64 General: no acute distress and stated age Eyes: conjunctiva are pink and non-injected, sclera clear Neck: normal jugular venous pulse, no hepatojugular reflux Chest: tenderness to the left chest wall upon palpation Lungs: clear to auscultation and percussion Cardiac Exam: - regular heart sounds, no murmurs, rubs, or gallops Abdomen: abdomen soft, non-tender, no abnormal masses and no hepatosplenomegaly Musculoskeletal: no gait disturbance, no weakness Extremities: trace LE edema B/L . Neuro: grossly normal exam Psych: appropriate affect and insight. Data: Nuclear stress test report reviewed dated April 06, 2022: Interpretation Summary Gated SPECT imaging reveals normal myocardial thickening and wall motion. The left ventricular ejection fraction was calculated to be 45%. Lexiscan nuclear cardiac stress test negative for ischemia. Echocardiogram report reviewed dated April 06, 2022: Interpretation Summary The qualitative LV ejection fraction is 60-64% (normal). The LV wall thickness is moderately increased (concentric). The left ventricular wall motion is normal by limited analysis. All left ventricular segments are not visualized. The right ventricular size is qualitatively normal. Image resolution does not allow for accurate measurement. The right ventricular systolic function is qualitatively normal. The left atrium is mildly enlarged (35-41 ml/m^2). The left ventricular diastolic function is mildly abnormal (grade I). There is severe mitral annular calcification. Mild mitral regurgitation is present. Mild tricuspid regurgitation is present. Moderate aortic valve sclerosis is present. Aortic stenosis is absent. EKG performed January 2022: Normal sinus rhythm Left bundle branch block Abnormal ECG When compared with ECG of 28-MAR-2020 14:09, Left bundle branch block has replaced Incomplete left bundle branch block Echocardiogram report reviewed dated January 06, 2021 at [facility]: Study was technically difficult due to patient on CPAP Ejection fraction 60 is 65%. No pericardial effusion. RV is grossly normal in size and normal function. Severe mitral annular calcification. Mild TR. ASSESSMENT: 82 year old female ICD-10-CM 1. Chronic right-sided heart failure (HCC) I50.812 2. HTN, goal below 130/80 I10 3. Dyslipidemia, goal LDL below 70 E78.5 4. Hyperkalemia E87.5 5. 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 of 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 angina [id number] 6. History of DVT (deep vein thrombosis) Z86.718 7. Chronic heart failure with preserved ejection fraction (HCC) I50.32 PLAN: Stable cardiac symptoms. Appears euvolemic. Tolerating meds. Labs 2 months ago, ordered by other provider, demonstrated elevated potassium. Not rechecked. Agreeable to repeat labs today - BMP and CBC. Taking iron supplement as well. CHF tools discussed including daily weights, salt/sodium/fluid restriction, and use of diuretic protocol. The patient is to continue all current medications as listed above. No changes were made at today'svisit. I spent a total of 30 minutes on the date of service in preparation, delivery, and documentation ofthe care provided to Anh Breaux excluding any time spent in the performance of separately billed services. The patient agrees to the above plan and will call with additional questions or concerns. ER with all emergencies advised. Follow-up: Return in about 6 months (around 05/28/2023). | Check-out note: Blood work today Ning K Fernando, PA-C Department of Cardiology This chart was completed in part utilizing [employer] Speech Voice Recognition Software. Grammatical errors, random word insertions, prounoun errors, and incomplete sentences are an occasional consequence of this system due to software limitations, ambient noise, and hardware issues. Any formal questions or concerns about the content, text, or information contained within the body of this dictation should be directly addressed to the provider for clarification. documented in this encounter Nursing Notes * Dianne Abarca LPN - 11/26/2022 2:32 PM EDT Examination Room: 1 Name: Anh Breaux Date of : 1940 Reason for Visit: Follow up Problems/Concerns: Denies cardiac Interim Hosp(s): denies Chest Pain/SOB: denies [facility] Discussed: Not applicable MyChart Discussed: ALREADY ACTIVE Patient was instructed to not get up [...] Team Description 02/21/2023 Office Visit Pharmacy Rub[facility], [facility] [address] [place] [address] 04/24/2023 Office Visit Family Medicine Giorgio Salas, DO [address] [place] [address] 07/22/2023 Nurse Only Rheumatology Pf, Nurse Rheum [address] [facility] [place] [address] 07/23/2023 Office Visit Cardiology Ning King PA-C [address] [place] [address] Scheduled Procedures Name Priority Associated Diagnoses Date/Ti [...] Additional history exists CKD PHOS USE SMARTSET 93615 10/12/202309/20, 10/12/2019, 08/18/2018, Additional history exists TSH 01/04/2024 01/03/2023, 03/20, 01/17/2021, Additional history exists CKD HGB USE SMARTSET 07390 01/25/202401/24, 01/24/2023, 01/03/2023, Additional history exists DXA [...] Not on filedocumented as of this encounter Results * (ABNORMAL) COMPREHENSIVE METABOLIC PANEL (11/26/2022 3:10 PM EDT) BUN 36(H) 6 - 20 mg/dL 11/26/2022 4:17 PM EDT [facility] Creatinine 1.5(H) 0.5 - 1.0 mg/dL 11/26/2022 4:17 PM EDT [facility] Estimated Glomerular Filtration Rate 35(L) >=60 mL/min 11/26/2022 4:17 PM EDT [facility] Comment:eGFR is calculated b ased on the CKD-EPI 2020 equation Sodium 140 135 - 146 mmol/L 11/26/2022 4:17 PM EDT [facility] Potassium 5.7(H) 3.5 - 5.1 mmol/L 11/26/2022 4:17 PM EDT [facility] Chloride 106 98 - 107 mmol/L 11/26/2022 4:17 PM EDT [facility] CO2 27 22 - 32 mmol/L 11/26/2022 4:17 PM EDT [facility] Anion Gap 7 7 - 15 mmol/L 11/26/2022 4:17 PM EDT [facility] Glucose 102 70 - 120 mg/dL 11/26/2022 4:17 PM EDT [facility] Albumin 3.8 3.8 - 5.0 g/dL 11/26/2022 4:17 PM EDT [facility] AST 24 10 - 35 U/L 11/26/2022 4:17 PM EDT [facility] Comment:Result may be falsel y elevated due to hemolysis. Alkaline Phosphatase 73 35 - 130 U/L 11/26/2022 4:17 PM EDT [facility] Bilirubin, Total 0.4 <=1.2 mg/dL 11/26/2022 4:17 PM EDT [facility] Calcium 9.3 8.4 - 10.2 mg/dL 11/26/2022 4:17 PM EDT [facility] [place] [facility]10 Protein 6.3 6.0 - 8.3 g/dL 11/26/2022 4:17 PM EDT [facility] [place] [facility] ALT 16 10 - 35 U/L 11/26/2022 4:17 PM EDT [facility] [place] [facility] Blood Venous blood specimen / Unknown Venipuncture / Unknown 11/26/2022 3:10 PM EDT 11/26/2022 3:10 PM EDT Ning King PA-C LAB [facility] [place] [address] [address] [place] [address] * (ABNORMAL) CBC (11/26/2022 3:10 PM EDT) WBC 5.68 4.00 - 10.80 K/uL 11/26/2022 3:50 PM EDT [facility] [place] [facility] RBC 2.97 3.85 - 5.15 M/uL 11/26/2022 3:50 PM EDT [facility] [place] [facility] HGB 10.9(L) 12.0 - 15.3 g/dL 11/26/2022 3:50 PM EDT [facility] [address] HCT 34.8(L) 36.0 - 45.2 % 11/26/2022 3:50 PM EDT [facility] [place] [facility] MCV 117.2 81.5 - 97.5 fL 11/26/2022 3:50 PM EDT [facility] [address] MCH 36.7 27.0 - 34.0 pg 11/26/2022 3:50 PM EDT [facility] [place] [facility] MCHC 31.3 32.0 - 36.0 g/dL 11/26/2022 3:50 PM EDT [facility] [address] RDW 12.3 11.5 - 15.5 % 11/26/2022 3:50 PM EDT [facility] PLT 207 140 - 400 K/uL 11/26/2022 3:50 PM EDT [facility] MPV 9.6 6.6 - 11.1 fL 11/26/2022 3:50 PM EDT [facility] Blood Venous blood specimen / Unknown Venipuncture / Unknown 11/26/2022 3:10 PM EDT 11/26/2022 3:10 PM EDT Ning King PA-C LAB [facility] [facility] [address] [place] [address] documented in this encounter Visit Diagnoses Diagnosis Chronic right-sided heart failure (HCC)- Primary Congestive heart failure, unspecified HTN, goal below 130/80 Unspecified essential hypertension Dyslipidemia, goal LDL below 70 Other and unspecified hyperlipidemia Hyperkalemia Hyperpotassemia 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 History of DVT (deep vein thrombosis) Personal history of venous thrombosis and embolism Chronic heart failure with preserved ejection fraction (HCC) documented in this encounter Advance Directives Documents on File Type Date Recorded Patient Wireline Operator Expl anation Advance Directives and Living Will 05/01/2022 ADVANCE DIRECTIVE / LIVING WILL Power of Stoneworker 05/01/2022 POWER OF A TTORNEY Latest Code Status on File Code Status Date Activated Date Inactivated Comments Full Code 10/11/2019 7:48 PM 10/12/2019 8:11 PM This order reflects the patients wishes and were consensually agreed upon. Question Answer Comments Discussion of Advance Directives occurred with: Not Discussed Does the patient have a Living Will? No Does the patient have Health Care Power of Stoneworker? No Care Teams Machine Builder Relationship Specialty Start Date End Date Giorgio Salas, [address] [place] [address] PCP - General Family Medicine 02/15/17 documented as of this encounter"
--- OUTSIDE RECORDS SUMMARY | 2023-07-26 06:32 | External Medical Summary | Summary of Care ---
Author Name Unknown Organization [facility] Address [address] [facility] [place] [address] Phone [phone] Care Team Providers Care Painter Foreman Name Role Phone Giorgio Salas DO Primary Care Provider [phone] Reason for Visit * Reason Onset Date Comments Home Health 02/08/2023 OT plan of care Encounter Details Date Type Department Care Team Description 02/08/2023 Telephone Family Practice [facility] [place] [address] [facility] [place] [address] Giorgio Salas DO [address] [facility] [place] [address] Home Health (OT plan of care) Allergies Active Allergy Reactions Severity Noted Date Comments Salicylates Itching 11/27/1999 Aspirin Sulfa Antibiotics Other (Please comment) 1998 Unsure, happened during a hospital admission. documented as of this encounter (statuses as of 02/08/2023) Medications Medication Sig Dispensed Refills Start Date [...] with the 60 mg capsule. 90 Capsule 10/12/2022 Active DULoxetine HCl 60 MG Oral [...] hours 10 Tablet 5 01/24/2023 Active Nystatin 636359 UNIT/GM External Cream Apply topically to affected area 2 times a day. To affacted area for two weeks. 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 Family history of prothrombin gene mutat [...] as of this encounter (statuses as of 02/08/2023) Resolved Problems Problem Noted Date Resolved Date [...] as of this encounter (statuses as of 02/08/2023) Immunizations Name Administration Dates Next Due COVID-19 [...] encounter Miscellaneous Notes * Telephone Encounter - Alyx Garcia LPN - 02/08/2023 3:03 PM EDT Provider to address: Giorgio Salas DO Reason for Call: Home Health (OT plan of care) Contact: Telephone Call Contact Type: Care Coordination Outcome: HH PT/OT/ST Eval Start of Care/Continuation Alberto OT Calling from: [facility] Reassessment on 02/04 OT Plan of care: 2 times per week for 1 weeks then discharge. Patient is progressing very good. ROM and strengthening, balance. happy with the progress. FYI. Total Time including non face to face (minutes): 10 * Telephone Encounter - WAYLON Fox - 02/08/2023 2:59 PM EDT Reason for patient's call: Alberto occupational therapist, calling from [facility] to speak to a nurse Caller was transferred to Alyx at the nurse line. documented in this encounter Plan of Treatment Upcoming Encounters Date Type Specialty Care Team Description 02/21/2023 Office Visit Pharmacy [facility] [address] [facility] [place] [address] 04/24/2023 Office Visit Family Medicine Giorgio Salas DO [address] [place] [address] 07/22/2023 Nurse Only Rheumatology Pf, Nurse Rheum [address] [facility] [place] [address] 07/23/2023 Office Visit Cardiology Ning King PA-C [address] [place] [address] Scheduled Procedures Name Priority Associated Diagnoses Date/Ti [...] Additional history exists CKD PHOS USE SMARTSET 97705 10/12/202309/20, 10/12/2019, 08/18/2018, Additional history exists TSH 01/04/2024 01/03/2023, 03/20, 01/17/2021, Additional history exists CKD HGB USE SMARTSET 36357 01/25/202401/24, 01/24/2023, 01/03/2023, Additional history exists DXA [...] Documents on File Type Date Recorded Patient Cfo Expl anation Advance Directives and Living Will 05/01/2022 ADVANCE DIRECTIVE / LIVING WILL Power of Eyeglass Lens Grinder 05/01/2022 POWER OF A TTORNEY Latest Code Status on File Code Status Date Activated Date Inactivated Comments Full Code 10/11/2019 7:48 PM 10/12/2019 8:11 PM This order reflects the patients wishes and were consensually agreed upon. Question Answer Comments Discussion of Advance Directives occurred with: Not Discussed Does the patient have a Living Will? No Does the patient have Health Care Power of Eyeglass Lens Grinder? No Care Teams Painter Foreman Relationship Specialty Start Date End Date Giorgio Salas, [address] [place] [address] PCP - General Family Medicine 02/15/17 documented as of this encounter
--- OUTSIDE RECORDS SUMMARY | 2023-07-26 06:33 | External Medical Summary | Summary of Care ---
Author Name Unknown Organization [facility] Address [address] [facility] [place] [address] Phone [phone] Care Team Providers Care Health Safety Engineer Name Role Phone IsidoroGiorgio ontiveros Primary Care Provider [phone] Reason for Visit * Reason Onset Date Comments Precert In Process 01/29/2023 13 LT [facility] E REYVOW Encounter Details Date Type Department Care Team Description 01/29/2023 Telephone Neurology [facility] [address] [place] [address] Awilda Hernandez PA-C [address] [facility] [place] [address] Precert In Process (13 LT [facility]ARE REYVOW) Allergies Active Allergy Reactions Severity Noted Date Comments Salicylates Itching 11/27/1999 Aspirin Sulfa Antibiotics Other (Please comment) 1998 Unsure, happened during a hospital admission. documented as of this encounter (statuses as of 01/29/2023) Medications Medication Sig Dispensed Refills Start Date [...] hours 10 Tablet 5 01/24/2023 Active Nystatin 047200 UNIT/GM External Cream Apply topically to affected area 2 times a day. To affacted area for two weeks. 15 g 2 01/25/2023 Active documented as of this encounter (statuses as of 01/29/2023) Active Problems Problem Noted Date Chronic heart failure with preserved eje ction fraction 11/26/2022 Food insecurity 04/30/2022 Overview: Per 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 Overview: heterozygous for the [id number] mutation Family history of prothrombin gene mutat [...] as of this encounter (statuses as of 01/29/2023) Resolved Problems Problem Noted Date Resolved Date [...] as of this encounter (statuses as of 01/29/2023) Immunizations Name Administration Dates Next Due COVID-19 mRNA, LNP-s, No Pre serve, 2-Dose Series ([email or web address]) 08/29/2021,12/30/2020,12/07/2020 H1N1 2009 Influenza, IM 10/17/2009 Pneumococcal [...] TD - Tetanus/Diptheria (ADULT) 11/27/1999 TDAP (age 11 and older)(Adacel) 06/13/2011 Varicella [...] * Telephone Encounter - SALVATORE Morelos - 01/29/2023 8:57 AM EDT Neurology Pre-Cert Request Medication/Disease State Information: Medication: Reyvow 50 mg- Take one at onset of migraine. Max 1 dose in 24 hours Diagnosis (including ICD-10): Migraine - Chronic Migraine G43.709 - Self- administered - route pre-cert request to [id number] See corresponding visit note(s) for additional supporting clinical information. Office Information: Prescriber: America Álvarez MD * Telephone Encounter - Awilda Hernandez PA-C - 01/29/2023 8:49 AM EDT Per Sally Shields, "Stephan from [facility] in [place] needs a call back at [phone] for pt of America Álvarez, regarding med lasmiditan to check if prior auth request status." documented in this encounter Plan of Treatment Upcoming Encounters Date Type Specialty Care Team Description 02/21/2023 Office Visit Pharmacy [facility] [address] [place] [address] 04/24/2023 Office Visit Family Medicine Giorgio Salas, DO [address] [place] [address] 07/22/2023 Nurse Only Rheumatology Pf, Nurse Rheum [address] [place] [address] 07/23/2023 Office Visit Cardiology Ning King PA-C [address] [place] [address] Scheduled Procedures Name Priority Associated Diagnoses Date/Ti [...] Additional history exists CKD PHOS USE SMARTSET 76026 10/12/202309/20, 10/12/2019, 08/18/2018, Additional history exists TSH 01/04/2024 01/03/2023, 03/20, 01/17/2021, Additional history exists CKD HGB USE SMARTSET 14852 01/25/202401/24, 01/24/2023, 01/03/2023, Additional history exists DXA [...] Documents on File Type Date Recorded Patient Laundry Machine Operator Expl anation Advance Directives and Living Will 05/01/2022 ADVANCE DIRECTIVE / LIVING WILL Power of Shirt Ironer Supervisor 05/01/2022 POWER OF A TTORNEY Latest [...] the patient have Health Care Power of Shirt Ironer Supervisor? No Care Teams Health Safety Engineer Relationship Specialty Start Date End Date Giorgio Salas, DO [address] [place] [address] PCP - General Family Medicine 02/15/17 documented as of this encounter
--- OUTSIDE RECORDS SUMMARY | 2023-07-26 06:33 | External Medical Summary | Summary of Care ---
Author Name Unknown Organization [facility] Address [address] [facility] [place] [address] Phone [phone] Care Team Providers Care 1St Pressman Name Role Phone Giorgio Salas DO Primary Care Provider [phone] Reason for Visit * Reason Onset Date Comments Advice 01/25/2023 Encounter Details Date Type Department Care Team Description 01/25/2023 Telephone Family Practice [facility] [address] [facility] [place] [id number] Giorgio Salas DO [address] [facility] [place] [address] Advice Allergies Active Allergy Reactions Severity Noted Date [...] hours 10 Tablet 5 01/24/2023 Active Nystatin 857791 UNIT/GM External Cream Apply topically to affected [...] AGREEMENT 10/29/2017 Coronary artery disease invo lving [place] coronary artery of [place] heart without angina pectoris 10/28/2017 HTN, goal [...] History of positive PPD, untreated 08/10 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 Spoke to Tonny. He is aware of below. * Telephone Encounter - Giorgio Salas DO - 01/25/2023 12:44 PM EDT I sent for Nystatin for her to use on the red area. Dizziness is a chronic problem for her. I'm glad she was checked out with cardiology and cleared though. * Telephone Encounter - WAYLON Wilder - 01/25/2023 11:44 AM EDT Tonny from [facility] called to also adv that pt is still experience dizziness with standing/walking. Mr Lancaster reports BP at rest 118/76 and pulse 73, after walking about 40ft pt reported a fuzzy feeling with BP of 144/90 pulse 110. After resting for about 5 minutes BP returned to 118/74 pulse 76, HH had pt walk another 40 ft, pt had BP of 148/96 w/ pulse of 116. Tonny reports stable O2 reading, pt denies other symptoms. Please reach out to advise. Thank You! * Telephone Encounter - Magdalena Stearns LPN - 01/25/2023 11:15 AM EDT Angy calling from [facility] Reports: Has chronic headaches. Took sumatriptan as needed. Neurologist is going to order something different. Uses acetaminophen for pain control. She uses the E.S. 500 mg tablets 2 of those 3 to 4 times a day. It says 325 mg on her med list. The 500 mg does help with headaches. Pain is on left side of herneck and head. Has had it almost 2 weeks. Saw cardiology for chest heaviness yesterday. Had an EKG that was normal. Had redness under abdominal folds. Ran out of cream. Using dermaplast Nothing open right now. Maybe some nystatin? Does not have nursing at this time. If needed will need an order. BP PT says it was jumping with activity and she was dizzy. During OT visit 130/70 P 75 regular Resp 18 Temp 97.6 SpO2 94 room air Lungs Are clear Call back patient with any advice or orders at home number. documented in this encounter Plan of Treatment Upcoming Encounters Date Type Specialty Care Team Description 02/21/2023 Office Visit [facility] [place] [address] [place] [address] 04/24/2023 Office Visit Family Medicine Giorgio Salas, DO [address] [place] [address] 07/22/2023 Nurse Only Rheumatology Pf, Nurse Rheum [address] [facility] [place] [address] 07/23/2023 Office Visit Cardiology Ning King PA-C [address] [place] [address] Scheduled Procedures Name Priority Associated Diagnoses Date/Ti [...] Additional history exists CKD PHOS USE SMARTSET 79021 10/12/202309/20, 10/12/2019, 08/18/2018, Additional history exists TSH 01/04/2024 01/03/2023, 03/20, 01/17/2021, Additional history exists CKD HGB USE SMARTSET 83230 01/25/202401/24, 01/24/2023, 01/03/2023, Additional history exists DXA [...] Documents on File Type Date Recorded Patient Transitional Kindergarten Teacher Expl anation Advance Directives and Living Will 05/01/2022 ADVANCE DIRECTIVE / LIVING WILL Power of Fibre Composite Technician 05/01/2022 POWER OF A TTORNEY Latest [...] the patient have Health Care Power of Fibre Composite Technician? No Care Teams 1St Pressman Relationship Specialty Start Date End Date Giorgio Salas, DO [address] [place] [address] PCP - General Family Medicine 02/15/17 documented as of this encounter
--- OUTSIDE RECORDS SUMMARY | 2023-07-26 06:33 | External Medical Summary | Summary of Care ---
Author Name Unknown Organization [facility] Address [address] [place] [address] Phone [phone] Care Team Providers Care Acetaldehyde Converter Operator Name Role Phone Giorgio Salas DO Primary Care Provider [phone] Encounter Details Date Type Department Care Team Description 01/28/2023 Orders Only Family Practice [facility] [address] [facility] [place] [id number] Giorgio Salas DO [address] [facility] [place] [address] Allergies Active Allergy Reactions Severity Noted Date Comments Salicylates Itching 11/27/1999 Aspirin Sulfa Antibiotics Other (Please comment) 1998 Unsure, happened during a hospital admission. documented as of this encounter (statuses as of 01/28/2023) Medications Medication Sig Dispensed Refills Start Date [...] hours 10 Tablet 5 01/24/2023 Active Nystatin 329702 UNIT/GM External Cream Apply topically to affected area 2 times a day. To affacted area for two weeks. 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 Anticoagulation management encounter 03/2002 History of DVT (deep vein thrombosis) History of pulmonary embolism 02/23/2002 documented as of this encounter (statuses as of 01/28/2023) Resolved Problems Problem Noted Date Resolved Date [...] as of this encounter (statuses as of 01/28/2023) Immunizations Name Administration Dates Next Due COVID-19 mRNA, LNP-s, No Pre serve, 2-Dose Series ([email or web address]) 08/29/2021,12/30/2020,12/07/2020 H1N1 2009 Influenza, IM 10/17/2009 Pneumococcal [...] Care Team Description 02/21/[address] [facility] [place] [address] [address] 04/24/2023 Office Visit Family Medicine Giorgio Salas, DO [address] [facility] [address] 07/22/2023 Nurse Only [facility]umatology Pf[facility] [facility] [address] 07/23/2023 Office Visit Cardiology Ning King PA-C [address] [place] [address] Scheduled Procedures Name Priority Associated Diagnoses Date/Ti [...] for Pts 12 and Over 04/09/2023 04/09/2022 TSH 04/09/2023 01/03/2023, 03/20, 01/17/2021, Additional history exists GFR 07/26/2023 01/24/2023, 12/17, 11/29/2022, Additional history exists CKD PHOS USE SMARTSET 01188 10/12/202309/20, 10/12/2019, 08/18/2018, Additional history exists CKD HGB USE SMARTSET 00312 01/25/202401/24, 01/24/2023, 01/03/2023, Additional history exists DXA [...] Procedure Name Priority Date/Time Associated Diagnosis Comments CHEMISTRY-OUTSIDE Routine 01/03/2023 TSH Routine 01/03/2023 OUTSIDE LAB-CORONAVIRUS (COVID-19) Routine 01/01/2023 documented in this encounter Results * TSH (01/03/2023) TSH - OUTSIDE LAB 1.959 0.300 - 4.500 UIU/ML OUTSIDE LAB (SEE SCANNED REPORT) Blood Venous blood specimen / Unknown 01/03/2023 History Per Patient LAB BLOOD ORDERABLES Performing Organization Address City/State/[facility] Co de Phone Number OUTSIDE LAB (SEE SCANNED REPORT) * (ABNORMAL) CHEMISTRY-OUTSIDE (01/03/2023) Not all results display below - see scan for full detail OUTSIDE LAB (SEE SCANNED REPORT) Comment:SCAN INCL: INPT LABS :CBCD,PT, INR, UA,CMP,HA1C, MG, TROP, LIPIDS,VBG, UR CULT CREATININE-OUTSID E LAB 1.32(A) 0.6 - 1.2 MG/DL OUTSIDE LAB (SEE SCANNED REPORT) EGFR-OUTSIDE LAB 38.0 OUT SIDE LAB (SEE SCANNED REPORT) POTASSIUM-OUTSIDE LAB 3.9 3.5 - 5.1 MMOL/L OUTSIDE LAB (SEE SCANNED REPORT) GLUCOSE-OUTSIDE LAB 84 70 - 99 MG/DL OUTSIDE LAB (SEE SCANNED REPORT) HOURS FASTING OUTSID E LAB (SEE SCANNED REPORT) TRIGLYCERIDES-OUT SIDE LAB 72 0 - 150 MG/DL OUTSIDE LAB (SEE SCANNED REPORT) CHOLESTEROL-OUTSI DE LAB 151 0 - 200 MG/DL OUTSIDE LAB (SEE SCANNED REPORT) HDL-OUTSIDE LAB 68 OUTS XIAO LAB (SEE SCANNED REPORT) CHOL/HDL RATIO-OUTSIDE LAB 2.2 OUTSIDE LA B (SEE SCANNED REPORT) LDL (CALCULATED)-OUTS XIAO LAB 69 OUTSIDE LAB (SEE SCANNED REPORT) LDL (DIRECT MEASURE)-OUTSIDE LAB OUTSIDE LAB (SEE SCANNED REPORT) HEMOGLOBIN, T7E-IFUTBCB LAB 4.9 4.5 - 5.6 % OUTSIDE LAB (SEE SCANNED REPORT) PHOSPHORUS-OUTSID E LAB OUTSIDE LAB (SEE SCANNED REPORT) PTH-OUTSIDE LAB OUTS XIAO LAB (SEE SCANNED REPORT) MICROALBUMIN RATIO-OUTSIDE LAB OUTSIDE LA B (SEE SCANNED REPORT) PROTEIN, UA-OUTSIDE LAB OUTSIDE LAB (SEE SCANNED REPORT) HEMOGLOBIN-OUTSID E LAB 9.7(A) 12.0 - 16.0 G/DL OUTSIDE LAB (SEE SCANNED REPORT) 01/03/2023 History Per Patient LABORATORY OUTSIDE LAB (SEE SCANNED REPORT) * OUTSIDE LAB-CORONAVIRUS (COVID-19) (01/01/2023) [id number] E LAB NEGATIVE OUTSIDE LAB (SEE SCANNED REPORT) 01/01/2023 History Per Patient LABORATORY OUTSIDE LAB (SEE SCANNED REPORT) documented in this encounter Advance Directives Documents on File Type Date Recorded Patient Search Analyst Expl anation Advance Directives and Living Will 05/01/2022 ADVANCE DIRECTIVE / LIVING WILL Power of Top Steep Tender 05/01/2022 POWER OF A TTORNEY Latest Code Status on File Code Status Date Activated Date Inactivated Comments Full Code 10/11/2019 7:48 PM 10/12/2019 8:11 PM This order reflects the patients wishes and were consensually agreed upon. Question Answer Comments Discussion of Advance Directives occurred with: Not Discussed Does the patient have a Living Will? No Does the patient have Health Care Power of Top Steep Tender? No Care Teams Acetaldehyde Converter Operator Relationship Specialty Start Date End Date Giorgio Salas, [address] [place] [address] PCP - General Family Medicine 02/15/17 documented as of this encounter
--- OUTSIDE RECORDS SUMMARY | 2023-07-26 06:33 | External Medical Summary | Summary of Care ---
Author Name Unknown Organization [facility] Address [address] [place] [address] Phone [phone] Care Team Providers Care Verify Rep Name Role Phone [place] Giorgio Calvo Primary Care Provider [phone] Encounter Details Date Type Department Care Team Description 01/29/2023 Telephone Neurology [facility] [address] [facility] [place] [id number] Awilda Hernandez PA-C [address] [facility] [place] [address] Allergies Active Allergy Reactions Severity Noted Date [...] BY MOUTH IN THE MORNING 90 Tablet 08/27/2022 Active Atorvastatin Calcium 20 MG Oral Tablet (Lipitor) TAKE ONE TABLET BY MOUTH DAILY 90 Tablet 3 09/05/2022 Active Albuterol Sulfate HFA 108 (90 Base) MCG/ACT Inhalation Aerosol SolutionIndications:M ild persistent asthma without complication INHALE TWO PUFFS BY MOUTH EVERY FOUR HOURS NEEDED FOR WHEEZING 18 g 10/04/2022 Active Fluticasone-Salmetero l 100-50 MCG/ACT Inhalation [...] hours 10 Tablet 5 01/24/2023 Active Nystatin 470106 UNIT/GM External Cream Apply topically to affected area 2 times a day. To affacted area for two weeks. 15 g 2 01/25/2023 Active documented as of this encounter (statuses as of 01/29/2023) Active Problems Problem Noted Date Chronic heart failure with preserved eje ction fraction 11/26/2022 Food insecurity 04/30/2022 Overview: Per [facility] Protocol Chronic right-sided heart failure [...] AGREEMENT 10/29/2017 Coronary artery disease invo lving [place] coronary artery of [place] heart without angina pectoris 10/28/2017 HTN, goal [...] History of positive PPD, untreated 08/10 Prothrombin [id number] mutation 02/16/2013 Overview: heterozygous for the [id number] mutation Family history of prothrombin gene mutat [...] mRNA, LNP-s, No Pre serve, 2-Dose Series (Comecer) 08/29/2021,12/30/2020,12/07/2020 H1N1 2009 Influenza, IM 10/17/2009 Pneumococcal [...] Notes * Telephone Encounter - SALVATORE Morelos ASSIST - 01/29/2023 8:57 AM EDT Neurology Pre-Cert Request Medication/Disease State Information: Medication: Reyvow 50 mg- Take one at onset of migraine. Max 1 dose in 24 hours Diagnosis (including ICD-10): Migraine - Chronic Migraine G43.709 - Self- administered - route pre-cert request to [id number] See corresponding visit note(s) for additional supporting clinical information. Office Information: Prescriber: America Álvarez MD * Telephone Encounter - Awilda Hernandez PA-C - 01/29/2023 8:49 AM EDT Per Sally Shields, "Stephan from [facility] in [place] needs a call back at [phone] for pt of America Álvarez, regarding med lasmiditan to check if prior auth request status." documented in this encounter Plan of Treatment Upcoming Encounters Date Type Specialty Care Team Description 02/21/[address] [facility] [address] [facility] [place] [address] 04/24/2023 Office Visit Family Medicine Giorgio Salas, DO [address] [place], [place] [address] 07/22/2023 Nurse Only Rheumatology Pf, Nurse Rheum [facility] [place] [address] 07/23/2023 Office Visit Cardiology Ning King PA-C [address] [place] [address] Scheduled Procedures Name Priority Associated Diagnoses Date/Ti [...] Additional history exists CKD PHOS USE SMARTSET 56866 10/12/202309/20, 10/12/2019, 08/18/2018, Additional history exists TSH 01/04/2024 01/03/2023, 03/20, 01/17/2021, Additional history exists CKD HGB USE SMARTSET 66052 01/25/202401/24, 01/24/2023, 01/03/2023, Additional history exists DXA [...] Documents on File Type Date Recorded Patient Night Order Selector Expl anation Advance Directives and Living Will 05/01/2022 ADVANCE DIRECTIVE / LIVING WILL Power of Pastoral Assistant 05/01/2022 POWER OF A TTORNEY Latest Code Status on File Code Status Date Activated Date Inactivated Comments Full Code 10/11/2019 7:48 PM 10/12/2019 8:11 PM This order reflects the patients wishes and were consensually agreed upon. Question Answer Comments Discussion of Advance Directives occurred with: Not Discussed Does the patient have a Living Will? No Does the patient have Health Care Power of Pastoral Assistant? No Care Teams Verify Rep Relationship Specialty Start Date End Date Giorgio Salas, [address] [place] [address] PCP - General Family Medicine 02/15/17 documented as of this encounter
--- OUTSIDE RECORDS SUMMARY | 2023-07-26 06:33 | External Medical Summary | Summary of Care ---
Author Name Unknown Organization [facility] Address [address] [place] [place] [address] Phone [phone] Care Team Providers Care J2Ee Programmer Name Role Phone IsidoroGiorgio ontiveros Primary Care Provider [phone] Reason for Visit * Reason Onset Date Comments Precert Approved 01/29/2023 JUDY Encounter Details Date Type Department Care Team Description 01/29/2023 Telephone Neurology [facility] [address] [facility] [place] [id number] Awilda Hernandez PA-C 21 [facility] [place] [address] Precert Approved ( CASIMIRO) Allergies Active Allergy Reactions Severity Noted Date [...] hours 10 Tablet 5 01/24/2023 Active Nystatin 137403 UNIT/GM External Cream Apply topically to affected area 2 times a day. To affacted area for two weeks. 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 VARIANTS OF MIGRAINE WITH INTRACTABLE PA GRAINE, SO STATED 10/23/2005 History of colonic polyps 02/23/2004 Overview: 03/03/15: ischemic colitis of the sigmoid colon repeat 5 years 06/27/09: normal repeat 5 years 03/22/04: seen on colonsocopy, repeat 2008 Irritable bowel syndrome 02/23/2004 supervisor intermediates current use of anticoagulant t herapy 09/23/2003 [...] Miscellaneous Notes * Telephone Encounter - SALVATORE Morelso ASSIST - 01/29/2023 8:57 AM EDT Neurology Pre-Cert Request Medication/Disease State Information: Medication: Reyvow 50 mg- Take one at onset of migraine. Max 1 dose in 24 hours Diagnosis (including ICD-10): Migraine - Chronic Migraine G43.709 - Self- administered - route pre-cert request to [id number] See corresponding visit note(s) for additional supporting clinical information. Office Information: Prescriber: America Álvarez MD * Telephone Encounter - Awilda Hernandez PA-C - 01/29/2023 8:49 AM EDT Per Sally Shields, "Stephan from [facility] in [place] needs a call back at [phone] for pt of America Álvarez, regarding med lasmiditan to check if prior auth request status." documented in this encounter Plan of Treatment Upcoming Encounters Date Type Specialty Care Team Description 02/21/2023 Office Visit Pharmacy [facility] [address] [place] [address] 04/24/2023 Office Visit Family Medicine Giorgio Salas, DO [address] [place] [address] 07/22/2023 Nurse Only Rheumatology Pf, Nurse Rheum [address] [place], [place] [address] 07/23/2023 Office Visit Cardiology Ning King PA-C [address] [place] [address] Scheduled Procedures Name Priority Associated Diagnoses Date/Ti [...] Additional history exists CKD PHOS USE SMARTSET 06121 10/12/202309/20, 10/12/2019, 08/18/2018, Additional history exists TSH 01/04/2024 01/03/2023, 03/20, 01/17/2021, Additional history exists CKD HGB USE SMARTSET 43501 01/25/202401/24, 01/24/2023, 01/03/2023, Additional history exists DXA [...] Documents on File Type Date Recorded Patient Wax Specialist Expl anation Advance Directives and Living Will 05/01/2022 ADVANCE DIRECTIVE / LIVING WILL Power of Decision Support Manager 05/01/2022 POWER OF A TTORNEY [...] the patient have Health Care Power of Decision Support Manager? No Care Teams J2Ee Programmer Relationship Specialty Start Date End Date Giorgio Salas, DO [address] [place] [address] PCP - General Family Medicine 02/15/17 documented as of this encounter
--- OUTSIDE RECORDS SUMMARY | 2023-07-26 06:34 | External Medical Summary | Summary of Care ---
Author Name Unknown Organization [facility] Address [address] [place] [address] Phone [phone] Care Team Providers Care Stogy Maker Name Role Phone YanelisGiorgio bailey Umesh ORO Primary Care Provider [phone] Reason for Visit * Reason Onset Date Comments Chest Discomfort 01/16/2023 Encounter Details Date Type Department Care Team Description 01/16/2023 Traffic Rate Analyst Telephone Ancillary 1st Floor, [place] [address] [place] [address] Melody Beltran LPN [facility] [place] [address] Chest Discomfort Allergies Active Allergy Reactions Severity Noted Date [...] fraction 11/26/2022 Food insecurity 04/30/2022 Overview: Per [facility] Protocol Chronic right-sided heart failure [...] AGREEMENT 10/29/2017 Coronary artery disease invo lving [place] coronary artery of [place] heart without angina pectoris 10/28/2017 HTN, goal [...] History of positive PPD, untreated 08/10 Prothrombin [id number] mutation 02/16/2013 Overview: heterozygous for the [id number] mutation Family history of prothrombin gene mutat [...] colonsocopy, repeat 2008 Irritable bowel syndrome 02/23/2004 penitentiary current use of anticoagulant t herapy 09/23/2003 [...] mRNA, LNP-s, No Pre serve, 2-Dose Series (Zerto) 08/29/2021,12/30/2020,12/07/2020 H1N1 2009 Influenza, IM 10/17/2009 Pneumococcal [...] Telephone Encounter - Giorgio Salas DO - 01/16/2023 2:17 PM EDT We discussed her fuzzy feeling and association with stroke. She also had an asthma exacerbation in the hospital and her chest heaviness could be from this. YEsterday we discussed her finishing her prednisone but not feeling more SOB after finishing it. She didn't mention the chest heaviness then. * Telephone Encounter - Ning King PA-C - 01/16/2023 12:14 PM EDT Chart reviewed. It appears patient was just hospitalized for CVA. Multiple med changes Had visit yesterday with PCP. Did she discuss any of these symptoms during office visit? Some of these symptoms may be lingering symptoms of stroke. Would recommend sooner cardiology f/u appt as well. Will send to scheduling team to assist with appt. ? Any available provider * Telephone Encounter - Melody Beltran LPN - 01/16/2023 10:35 AM EDT Case management follow up call to patient Patient is reporting sharp and sometimes heavy feeling in her chest. Occurs 1-2 times daily usuallywith exertion and lasting only a minute. With this feeling will have occasional nausea but no vomiting and has "fuzzy" sensation in head like it spinning and fuzzy vision, again lasting only a minute No diaphoresis but most of the time is cold Denies lower extremity edema, dyspnea or fever Home O2 sat running 90 % this morning. Wearing home oxygen at night but during day will wear if pulse ox "lower" Wanted to make you aware I did advise ED with any persistent or worsening symptoms Wanted to make you aware Next Cardiology follow up scheduled for 07/23/23 documented in this encounter Plan of Treatment Upcoming Encounters Date Type Specialty Care Team Description 02/21/2023 Office Visit Pharmacy [facility] [address] [address] 04/24/2023 Office Visit Family Medicine Giorgio Salas, DO [address] [place] [address] 07/22/2023 Nurse Only Rheumatology Pf, Nurse Rheum [address] [place] [address] 07/23/2023 Office Visit Cardiology Ning King PA-C [address] [place] [address] Scheduled Procedures Name Priority Associated Diagnoses Date/Ti [...] 12 and Over 04/09/2023 04/09/2022 TSH 04/09/2023 04/09/2022, 06/0 08/2020, 04/14/2020, Additional history exists GFR 07/26/2023 01/24/2023, 11/17, 11/26/2022, Additional history exists CKD PHOS USE SMARTSET 12353 10/12/202309/20, 10/12/2019, 08/18/2018, Additional history exists CKD HGB USE SMARTSET 37637 01/25/202401/24, 01/24/2023, 11/26/2022, Additional history exists DXA Scan 04/16/2029 04/16/2022, [...] on File Type Date Recorded Patient 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 Question Answer Comments Discussion of Advance Directives occurred with: Not Discussed Does the patient have a Living Will? No Does the patient have Health Care Power of [place]? No Care Teams Stogy Maker Relationship Specialty Start Date End Date Giorgio Salas, [address] [place] [address] PCP - General Family Medicine 02/15/17 documented as of this encounter
--- NOTE | 2023-07-26 07:45 | XRay Report ---
XR chest 1V portable HISTORY: Chest pain, nonspecific COMPARISON: Chest 01/01/2023. FINDINGS: No pneumothorax. No pleural effusions. There is chronic elevation of the right hemidiaphrag m. A few bibasilar linear densities persist and favor scarring or subsegmental atelectasis. No new fo betty lung consolidations to suggest a pneumonia. No evidence for pulmonary edema. The heart remains un enlarged. Prior cholecystectomy. Advanced degenerative changes within the shoulders. IMPRESSION: 1. No acute process within the chest. 2. Chronic elevation of of the right hemidiaphragm again noted. ACT 112: Negative or not required by law. Electronically signed by: Clyde Jensen M.D. 07/26/2023 7:44 AM
[2023-07-26] MEDS ORDERED: ALBUTEROL HFA 8 GM INHALER INH PRN (07:55)
[2023-07-26] MEDS ORDERED: LEVALBUTEROL 1.25MG/0.5ML NEB NEB PRN (07:55)
[2023-07-26] MEDS ORDERED: FUROSEMIDE 20 MG TAB PO SCH (09:00)
[2023-07-26] MEDS ORDERED: XOPENEX/ATROVENT 1.25mg/0.5MG NEB COMBO NEB SCH (09:00)
[2023-07-26] MEDS ORDERED: CHOLECALCIFEROL 1,000 UNITS 25 MCG TAB PO SCH (09:00)
[2023-07-26] MEDS ORDERED: carvediloL 12.5 MG TAB PO SCH (09:00)
[2023-07-26] MEDS ORDERED: NON-FORMULARY MEDICATION (Iron,Carbonyl-Vitamin C [Vitron-C] 65 mg iron- 125 mg Tablet,Del PO SCH (09:00)
--- NOTE | 2023-07-26 09:06 | Cardiology Consultation ---
Date of Consultation July 26, 2023 Assessment & Plan (1) Chest pain at rest: (2) Elevated troponin: (3) Asthma exacerbation: (4) ASCVD (arteriosclerotic cardiovascular disease): (5) PAF (paroxysmal atrial fibrillation): (6) HTN, goal below 130/80: Plan Chest pain. Atypical, reproducible with palpation of the chest wall. General measures advised. Acute on chronic shortness of breath. Chest x-ray with elevated right hemidiaphragm and ? mild CHF. Examination difficult to discern, without overt decompensation. Chart history of asthma. Pulmonary evaluation pending. Given history of PAF, observed heart rates, and underlying asthma, recommend switching carvedilol to metoprolol succinate. Recommend cautious diuresis. Elevated troponin. Suspect demand ischemia secondary to acute illness. Check serial cardiac enzymes. Refer for resting echocardiography. Continue medical management. Paroxysmal atrial fibrillation. Change Carvedilol to metoprolol. Continue anticoagulation Supervising Physician Co-Signing Physician Notes Patient was seen and personally examined She is a complex 83-year-old female with prior mild coronary atherosclerosis by cardiac catheterization 2018 Past PE and DVT on chronic anticoagulation Obstructive lung disease Stroke in December 2022 with gait instability and falls Patient presents now noting decline in overall function x 2 to 3 months but presented yesterday with acute dyspnea and chest pain. Notable history of mechanical fall with injury to the chest and recent past Patient with focal tenderness to the chest wall but exam consistent with mild congestive heart failure EKG left bundle branch block. Troponins trending upward. Echocardiogram demonstrates decline in overall systolic function in comparison to prior study December 2022 Impression plan: As outlined above in addition concerns regarding elevated troponin and possible progression in coronary disease with declining LV function noted on echocardiogram Will increase beta-hayden therapy given tachycardia. Single dose of furosemide given Will discuss diagnostic coronary angiography given elevated troponin, left bundle branch block, declining LV function Patient to be kept n.p.o. for now On Eliquis chronically last dose 07/25/23 AM, now on IV heparin History of Present Illness Reason for Consultation: Chest pain, elevated troponin, left bundle branch block Requesting Physician: Dr. Washington Attending Physician: Dr. Ching Hu MD History of Present Illness Ms. Anh Breaux (Mary Anne) is a very pleasant 83-year-old female who presented to the [facility] ER earlier this morning with complaints of left-sided chest discomfort and acute on chronic shortness of breath. Patient's chest pain is underneath the left breast and notably reproducible with palpation of the chest wall. Patient does note a fall a few weeks ago. Acute on chronic shortness of breath noted over the past few days. Patient hypoxic on EMS evaluation, given a nebulizer treatment with benefit/improvement. Patient is currently resting comfortably on BiPAP therapy with SP)2 of 98%. EKG on presentation was technically limited, revealing probable sinus tachycard ia with wide QRS rhythm, chronic left bundle branch block. Chest x-ray was interpreted by the radiologist as showing no acute process in the chest, revealing chronic elevation of the right hemidiaphragm and a few bibasilar linear densities favoring subsegmental atelectasis High-sensitivity troponin elevated at 349.7 then 684.5 pg/mL Review of the patient's ER clinical research monitor reveals sinus/sinus tachycardia with atrial ectopy Patient hospitalized in December of this year with an acute right parietal stroke secondary to small vessel ischemic disease. MRI with extensive old small vessel ischemic disease plus moderate generalized atrophy consistent with age. Plavix added noting allergy to aspirin, chronically prescribed apixaban due to history of pulmonary embolism In September 2017 patient was noted to have an NSTEMI, undergoing diagnostic cardiac catheterization on September 30, [address] Ahuja revealing right dominant coronary anatomy with a normal RCA, normal left main, diffuse 10% distal LAD stenosis, normal large left circumflex coronary artery. Vascular access was notable difficult due to significant radial artery spasm. Allergies Allergy/AdvReac Type Severity Reaction Status Date / Time aspirin Allergy Intermediate ITCHING Verified 07/26/23 03:08 Sulfa (Sulfonamide Allergy Unknown PER Verified 07/26/23 03:08 Antibiotics) GMG--HAPPENED IN HOSPITAL Home Medications Medication Instructions Recorded Confirmed Type albuterol sulfate 90 mcg/actuation 2 puff inhalation Q4 PRN Shortness 11/10/18 07/26/23 History aerosol inhaler (Ventolin HFA) Of Breath Or Wheezing carvedilol 12.5 mg tablet 12.5 mg PO BID 11/10/18 07/26/23 History montelukast 10 mg tablet 10 mg PO HS 11/10/18 07/26/23 History pantoprazole 40 mg tablet,delayed 40 mg PO DAILY 07/22/19 07/26/23 History release atorvastatin 20 mg tablet 20 mg PO DAILY 10/11/19 07/26/23 History levothyroxine 50 mcg tablet 50 mcg PO DAILYBB 01/15/20 07/26/23 History albuterol sulfate 2.5 mg/3 mL 2.5 mg inhalation Q4H PRN Wheezing 01/06/21 07/26/23 History (0.083 %) solution for nebulization cholecalciferol (vitamin D3) 25 25 mcg PO DAILY 01/06/21 07/26/23 History mcg (1,000 unit) capsule duloxetine 60 mg capsule,delayed 60 mg PO BID 03/07/22 07/26/23 History release fluticasone 100 mcg-salmeterol 50 1 inh inhalation BID 03/07/22 07/26/23 History mcg/dose blistr powdr for inhalation (Advair Diskus) furosemide 20 mg tablet 20 mg PO QAM 03/07/22 07/26/23 History iron,carbonyl 65 mg-vitamin C 125 1 tab PO DAILY 03/07/22 07/26/23 History mg tablet,delayed release (Vitron-C) apixaban 5 mg tablet (Eliquis) 5 mg PO BID #60 tabs 01/03/23 07/26/23 Rx clopidogrel 75 mg tablet 75 mg PO QAM #30 tabs 01/03/23 07/26/23 Rx acetaminophen 325 mg tablet 650 mg PO Q6H PRN Pain 07/26/23 07/26/23 History (Tylenol) gabapentin 300 mg capsule 300 mg PO TID 07/26/23 07/26/23 History lasmiditan 50 mg tablet (Reyvow) 50 mg PO DIRECTED PRN Migraine 07/26/23 07/26/23 History Headache lidocaine 5 % topical patch 1 patch topical DAILY 07/26/23 07/26/23 History tramadol 50 mg tablet 50 mg PO BID PRN Pain 07/26/23 07/26/23 History Patient History Medical History Abnormal urinalysis Acute kidney injury Chronic left hip pain Diffuse myofascial pain syndrome Chronic anticoagulation Opioid dependence History of pulmonary embolism Pulmonary edema History of OR (myocardial infarction) 2018 - FOLLOWS W/ DR. JACOBSEN On anticoagulant therapy History of endometriosis Osteoporosis Osteoarthritis Migraine Poor historian History of DVT (deep vein thrombosis) RLE - 20 YEARS AGO FOLLOWING INJURY On home oxygen therapy 2 LPM 02 QHS Sleep apnea NO DEVICE Hypertension Hypothyroidism Asthma USES PRN INH 1 X WK Pulmonary embolism (10/10/12) 20 YEARS AGO AFTER INJURY 30 YEARS AGO - POST OP CHOLEYCYSTECTOMY ON WARFARIN Atrial flutter PT COULD NOT CONFIRM Surgical History History of cardiac cath 2018 - [place] - NO STENTS History of left knee surgery History of tubal ligation History of section History of total abdominal hysterectomy and bilateral salpingo-oophorectomy History of appendectomy History of cholecystectomy History of cataract surgery History of tonsillectomy History of esophagogastroduodenoscopy (EGD) History of colonoscopy Family History Father , age 51 of cancer Esophageal cancer Lung cancer Mother , age 103 No problems noted. 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 On BiPAP. Somewhat hard of hearing., Ill appearing Skin: Diffuse healing ecchymosis in all extremities HENT: Normocephalic. Atraumatic. Eyes: PER. Conjunctiva pink, sclera pale. Neck: No overt JVD. ? Bilateral carotid bruits. Heart: Irregularly irregular at 110 bpm. Grade II/ systolic ejection murmur. No diastolic murmur. No rub. Chest: No rash. Reproducible chest wall/rib discomfort with palpation. Lungs: Diminished. Decreased. + Expiratory wheeze. Abdomen: +BS. Soft. Nontender. No masses or organomegaly. Extremities: No clubbing, cyanosis, or edema. Limited neurological examination is without focal deficits. Pulses: radial=2/4, posterior tibial=1/4. Results & Data Vital Signs (Past 12 Hours) Vital Signs Temp Pulse Pulse Resp BP Pulse Ox O2 Del Method 07/26/23 07:58 104 H 07/26/23 07:41 102 H 21 98 07/26/23 06:00 106 H 21 98 07/26/23 05:30 107 H 20 90 07/26/23 05:00 106 H 16 98 07/26/23 04:31 108 H 21 134/53 L 98 07/26/23 04:30 106 H 21 98 07/26/23 04:09 112 H 17 100 07/26/23 04:03 112 H 18 95 BiPAP 07/26/23 04:00 112 H 26 H 94/62 L 92 07/26/23 03:30 115 H 21 92 07/26/23 03:16 118 H 07/26/23 03:09 Nasal Cannula 07/26/23 03:06 94 07/26/23 03:04 Nasal Cannula 07/26/23 03:04 37 C 118 H 26 H 149/81 H 93 Nasal Cannula O2 Flow Rate FiO2 07/26/23 07:58 07/26/23 07:41 40 07/26/23 06:00 07/26/23 05:30 07/26/23 05:00 07/26/23 04:31 07/26/23 04:30 07/26/23 04:09 40 07/26/23 04:03 40 07/26/23 04:00 07/26/23 03:30 07/26/23 03:16 07/26/23 03:09 07/26/23 03:06 07/26/23 03:04 07/26/23 03:04 3 Laboratory Results Cardiac Enzymes 07/26/23 07/26/23 Range/Units 03:24 05:15 AST 27 (13-39) U/L Troponin I High Sens 349.7 H* 684.5 H* D (0-14) pg/ml Coagulation 07/26/23 Range/Units 05:26 PT 12.3 H (9.0-12.0) Seconds APTT 26 (21-31) Seconds CBC 07/26/23 Range/Units 03:24 WBC 5.24 (4.8-10.8) K/ul RBC 2.99 L (4.20-5.40) M/uL Hgb 10.8 L (12.0-16.0) g/dl Hct 34.2 L (37.0-47.0) % Plt Count 98 L (130-400) K/uL Neut # (Auto) 5.06 (1.40-6.50) K/uL Lymph # (Auto) 0.11 L (1.20-3.40) K/uL Starke # (Auto) 0.01 L (0.11-0.59) K/uL Eos # (Auto) 0.03 (0.00-0.50) K/uL Baso # (Auto) 0.02 (0.00-0.20) K/uL Comprehensive Metabolic Panel 07/26/23 Range/Units 03:24 Sodium 142 (136-145) mmol/L Potassium 4.2 (3.5-5.1) mmol/L Chloride 104 (98-107) mmol/L Carbon Dioxide 31 (21-32) mmol/L BUN 19 (6-23) mg/dl Creatinine 1.18 (0.6-1.2) mg/dl Glucose 78 (70-99(Fasting)) mg/dl Calcium 8.3 L (8.6-10.3) mg/dl AST 27 (13-39) U/L ALT 10 (7-52) U/L Alkaline Phosphatase 65 (34-104) U/L Total Protein 6.3 (6.0-8.3) gm/dl Albumin 3.3 L (3.4-5.0) gm/dl Intake and Output 07/25/23 07/26/23 07/26/23 22:59 06:59 14:59 Other: Weight 87.9 kg Weight Measurement Method Built in [facility] (3) Asthma exacerbation Asthma persistence: unspecified Asthma severity: unspecified severity Qualified Code(s): J45.901 - Unspecified asthma with (acute) exacerbation
[2023-07-26] MEDS ORDERED: FUROSEMIDE INJ 20 MG/2 ML VIAL IV ONE (09:34)
[2023-07-26] MEDS ORDERED: POTASSIUM CHLORIDE 10 MEQ TABCR PO ONE (09:35)
[2023-07-26] MEDS ORDERED: IPRATROPIUM BROMIDE NEB SOLN 0.02% 2.5 ML VIAL ONE (09:59)
[2023-07-26] MEDS ORDERED: ALBUT/IPRATROP 3MG/0.5MG NEB 3 ML VIAL ONE (09:59)
[2023-07-26] MEDS: LEVALBUTEROL 1.25 MG/3 ML NEB NEB SCH ×3 (10:06→20:39)
[2023-07-26] MEDS: IPRATROPIUM BROMIDE NEB SOLN 0.02% 2.5 ML VIAL INH SCH ×3 (10:06→20:39)
[2023-07-26 10:14] LABS: BUN Creatinine Ratio 16.7 (10-20); Calcium 8.1 mg/dl (8.6-10.3); Creatinine Clr Calc Pharmacy 38.3 ml/min; Est GFR (African American) 46.3 ml/min; Est GFR (Non-African American) 39.9 ml/min; Magnesium 1.7 mg/dl (1.7-2.4); Potassium 3.3 mmol/L (3.5-5.1)
[2023-07-26 10:22] LABS: Troponin I High Sensitivity 1409.6 pg/ml (0-14)
[2023-07-26 10:30] LABS: Thyroid Stimulating Hormone 0.716 uIu/ml (0.300-4.500)
[2023-07-26 10:35] LABS: Basophils # (auto) 0.03 K/uL (0.00-0.20); Basophils % (auto) 0.2 %; Eosinophils # (auto) 0.01 K/uL (0.00-0.50); Eosinophils % (auto) 0.1 %; Hematocrit (blood only) 30.9 % (37.0-47.0); Hemoglobin 9.8 g/dl (12.0-16.0); Immature Granulocytes # (auto) 0.13 K/uL (0.01-0.20); Lymphocytes # (auto) 0.35 K/uL (1.20-3.40); Lymphocytes % (auto) 2.6 %; Mean Corpuscular Hemoglobin 36.2 pg (25.0-34.0); Mean Corpuscular Hgb Conc 31.7 g/dL (32.0-36.0); Mean Platelet Volume 11.1 fL (9.4-12.4); Monocytes # (auto) 0.34 K/uL (0.11-0.59); Monocytes % (auto) 2.5 %; Neutrophils # (auto) 12.63 K/uL (1.40-6.50); Neutrophils % (auto) 93.6 %; Platelet Count 91 K/uL (130-400); RDW Coefficient of Variation 14.5 % (11.5-14.5); RDW Standard Deviation 60.3 fL (36.4-46.3); Red Blood Count 2.71 M/uL (4.20-5.40); White Blood Count 13.49 K/ul (4.8-10.8)
[2023-07-26] MEDS: FLUTICASONE/VILANTEROL 100/25MCG 14 PUFFS/INHALER INH SCH (10:44)
[2023-07-26] MEDS: LEVOTHYROXINE SODIUM 50 MCG TABLET PO SCH (10:45)
[2023-07-26] MEDS: ASCORBIC ACID 500 MG TAB PO SCH (10:45)
[2023-07-26] MEDS: ATORVASTATIN 20 MG TAB PO SCH (10:46)
[2023-07-26] MEDS: CLOPIDOGREL BISULFATE 75 MG TAB PO SCH (10:46)
[2023-07-26] MEDS: FERROUS SULFATE 325 MG TAB PO SCH (10:46)
[2023-07-26] MEDS: GABAPENTIN 300 MG CAP PO SCH ×2 (10:46→15:41)
[2023-07-26] MEDS: PANTOprazole 40 MG TAB PO SCH (10:47)
[2023-07-26] MEDS: LIDOCAINE 5% 1 PATCH TD SCH (10:49)
[2023-07-26] MEDS: METOPROLOL SUCC 50MG EXT REL TAB PO SCH ×2 (11:23→20:59)
--- NOTE | 2023-07-26 12:38 | Electrocardiogram Report ---
Test Reason : Blood Pressure : / mmHG Vent. Rate : 119 BPM Atrial Rate : 000 BPM P-R Int : 000 ms QRS Dur : 154 ms QT Int : 410 ms P-R-T Axes : 000 004 133 degrees QTc Int : 576 ms Sinus tachycardia Left bundle branch block Abnormal ECG When compared with ECG of 01-JAN-2023 12:21, No significant change Confirmed by Vimal Knowles ([id number]) on 07/26/2023 12:37:43 PM Referred By: REFERRED SELF Confirmed By:Vimal Knowles
[2023-07-26 13:53] LABS: ANTI-Xa, UFH(UnfractionatedHep > 1.50 IU/ml (0.3-0.7)
[2023-07-26] MEDS ORDERED: VANCOMYCIN CONSULT ACTIVE PRN (14:33)
--- NOTE | 2023-07-26 14:55 | Communication Note ---
Date of Service: July 26, 2023 Post admission addendum: Ms Breaux is an 83-year-old female with past med history significant for hyperlipidemia, hypothyroidism, asthma mild persistent, uses oxygen 2 L in the nighttime and as needed during daytime, chronic right-sided heart failure, history of CAD, hypertension, long QT interval, history of A-fib, irritable bowel syndrome, GERD, B12 deficiency, CKD stage III, migraines, history of DVT and PE, history of depression, history of CVA, currently wheelchair-bound who was admitted for chest pain and concerns for NSTEMI. Labs reviewed today--troponin uptrending, now 1472 with evloving LBBB +twave changes Patient more hypotensive Leukocytosis---5-->13.49 this am K 3.3 PE is notable for an ill looking, but pleasant woman irregular rhythm, tachycardic LYNN+ Soft abdomen afebrile Lungs without wheezing, decreased bibasilar breath sounds, no apparent crackles Ms. Breaux is a patient with complicated medical history who is admitted for evelation of NSTEMI in the setting of atypical chest pain. Please see HP for formal plan today. The following are changes to the plan given progressive hypotension #NSTEMI I v II #Atypical chest pain #Chronic Right Heart Failure -Trop trending upwards, evolving ekg changes; ECHO with EF 35-40%, hypokinesis of LV, septal wall motion abnormality (different in comparison to ECHO 12/2022) -Cardiology following, possible catheterization today #SIRS, no clear infectious source #Leukocytosis -Rule out infection as contributing source to presentation/demand ischemia -Gentle LR 100cc/hr -Empiric antibiotics -BMP, Lactate, Procal, Blood cultures, MRSA Full progress note in am to follow
[2023-07-26] MEDS ORDERED: VANCOMYCIN HCL 1,750 MG in SODIUM CHLORIDE 0.9% 500 ML IV ONE ×2 (15:00→19:30)
[2023-07-26] MEDS ORDERED: PIPERACILLIN/TAZOBACTAM 4.5 GM in DEXTROSE 5% MINI-B 100 ML IV ONE (15:00)
[2023-07-26] MEDS: LACTATED RINGER'S 1,000 ML IV SCH ×2 (15:08→22:12)
[2023-07-26] MEDS: POTASSIUM CHLORIDE / WTR 10 MEQ/100 ML PLCT IV SCH ×4 (15:14→20:58)
[2023-07-26 15:38] LABS: Creatinine Clr Calc Pharmacy 38.3 ml/min; Est GFR (African American) 46.3 ml/min; Est GFR (Non-African American) 39.9 ml/min; Potassium 3.7 mmol/L (3.5-5.1)
--- NOTE | 2023-07-26 15:54 | Electrocardiogram Report ---
Test Reason : Blood Pressure : / mmHG Vent. Rate : 094 BPM Atrial Rate : 094 BPM P-R Int : 132 ms QRS Dur : 152 ms QT Int : 426 ms P-R-T Axes : 008 003 162 degrees QTc Int : 532 ms Sinus rhythm with occasional Premature ventricular complexes Left bundle branch block Abnormal ECG When compared with ECG of 26-JUL-2023 03:06, Premature ventricular complexes are now Present T wave inversion more evident in Lateral leads Confirmed by Vimal Knowles ([id number]) on 07/26/2023 3:53:35 PM Referred By: REFERRED SELF Confirmed By:Vimal Knowles
[2023-07-26 16:02] LABS: ANTI-Xa, UFH(UnfractionatedHep > 1.50 IU/ml (0.3-0.7)
[2023-07-26] MEDS ORDERED: HEPARIN (PORCINE) 1000 UNIT/ML 10 ML (CATH LAB USE ONLY) ONE (16:26)
[2023-07-26] MEDS ORDERED: niCARdipine HCL INJ 2.5 MG/ML 10 ML AMP ONE (16:26)
[2023-07-26] MEDS ORDERED: fentaNYL citrate PF 100 MCG/2 ML VIAL ONE (16:26)
[2023-07-26] MEDS ORDERED: NITROGLYCERIN/D5W 100MCG/ML 20ML SYR ONE (16:26)
[2023-07-26] MEDS ORDERED: MIDAZOLAM HCL 1 MG/ML 2ML VIAL ONE (16:26)
[2023-07-26] MEDS ORDERED: LIDOCAINE 1% LOCAL 20 ML VIAL ONE ×2 (16:47→17:12)
--- NOTE | 2023-07-26 17:40 | Pre Anesthesia Assessment ---
Date of Service July 26, 2023 Pre Sedation Assessment Vital Signs Temp Pulse Pulse Resp BP BP Pulse Ox 07/26/23 16:04 96 H 20 82/54 L 92 07/26/23 15:31 96 H 21 101/52 L 93 07/26/23 15:00 93 H 25 H 78/44 L 97 07/26/23 14:59 92 H 07/26/23 14:30 93 H 22 93/62 L 94 07/26/23 14:00 93 H 18 93 07/26/23 13:48 07/26/23 13:41 97 H 20 93/51 L 96 07/26/23 13:38 98 H 23 78/37 L 96 07/26/23 13:30 100 H 22 77/32 L 94 07/26/23 13:01 101 H 22 110/50 L 95 07/26/23 12:30 111 H 20 125/106 H 94 07/26/23 11:14 103 H 16 137/70 93 07/26/23 10:56 103 H 16 137/70 93 07/26/23 10:08 97 H 21 98 07/26/23 07:58 104 H 07/26/23 07:41 102 H 21 98 07/26/23 06:00 106 H 21 98 07/26/23 05:30 107 H 20 90 07/26/23 05:00 106 H 16 98 07/26/23 04:31 108 H 21 134/53 L 98 07/26/23 04:30 106 H 21 98 07/26/23 04:09 112 H 17 100 07/26/23 04:03 112 H 18 95 07/26/23 04:00 112 H 26 H 94/62 L 92 07/26/23 03:30 115 H 21 92 07/26/23 03:16 118 H 07/26/23 03:09 07/26/23 03:06 94 07/26/23 03:04 07/26/23 03:04 98.6 F 118 H 26 H 149/81 H 93 O2 Del Method O2 Flow Rate FiO2 07/26/23 16:04 Nasal Cannula 4 07/26/23 15:31 2 07/26/23 15:00 07/26/23 14:59 07/26/23 14:30 2 07/26/23 14:00 Nasal Cannula 1 07/26/23 13:48 Nasal Cannula 2 07/26/23 13:41 07/26/23 13:38 07/26/23 13:30 07/26/23 13:01 07/26/23 12:30 2 07/26/23 11:14 Nasal Cannula 2 07/26/23 10:56 Nasal Cannula 2 07/26/23 10:08 BiPAP 40 07/26/23 07:58 07/26/23 07:41 40 07/26/23 06:00 07/26/23 05:30 07/26/23 05:00 07/26/23 04:31 07/26/23 04:30 07/26/23 04:09 40 07/26/23 04:03 BiPAP 40 07/26/23 04:00 07/26/23 03:30 07/26/23 03:16 07/26/23 03:09 Nasal Cannula 07/26/23 03:06 07/26/23 03:04 Nasal Cannula 07/26/23 03:04 Nasal Cannula 3 Cardiovascular RRR, no murmur, no edema Respiratory + respiratory effort normal Pre-Sedation Airway Assessment Smoking Status: Former smoker Hx Sleep Apnea: No Short, Thick Neck: No Thyromental Distance: > or= 3.5 Finger Breadths Oral Cavity: + Dentures Mallampati Class: II ASA: ASA3 NPO Status Date of Last Intake of Fluids: 07/25/23 Date of Last Intake of Solid Food: 07/25/23 Procedure Planning Contraindications for Sedation: none Current Medications Reviewed: Yes Notes The planned sedation has been discussed with the patient. Informed Consent was obtained. I have identified the patient, determined the appropriateness of sedation and have assessed the patient immediately prior to the procedure. All medicine(s) and interventions are by my order.
--- NOTE | 2023-07-26 17:41 | Post Anesthesia Assessment ---
Date of Service July 26, 2023 Post Sedation Assessment Vital Signs Temp Pulse Pulse Resp BP BP Pulse Ox 07/26/23 16:04 96 H 20 82/54 L 92 07/26/23 15:31 96 H 21 101/52 L 93 07/26/23 15:00 93 H 25 H 78/44 L 97 07/26/23 14:59 92 H 07/26/23 14:30 93 H 22 93/62 L 94 07/26/23 14:00 93 H 18 93 07/26/23 13:48 07/26/23 13:41 97 H 20 93/51 L 96 07/26/23 13:38 98 H 23 78/37 L 96 07/26/23 13:30 100 H 22 77/32 L 94 07/26/23 13:01 101 H 22 110/50 L 95 07/26/23 12:30 111 H 20 125/106 H 94 07/26/23 11:14 103 H 16 137/70 93 07/26/23 10:56 103 H 16 137/70 93 07/26/23 10:08 97 H 21 98 07/26/23 07:58 104 H 07/26/23 07:41 102 H 21 98 07/26/23 06:00 106 H 21 98 07/26/23 05:30 107 H 20 90 07/26/23 05:00 106 H 16 98 07/26/23 04:31 108 H 21 134/53 L 98 07/26/23 04:30 106 H 21 98 07/26/23 04:09 112 H 17 100 07/26/23 04:03 112 H 18 95 07/26/23 04:00 112 H 26 H 94/62 L 92 07/26/23 03:30 115 H 21 92 07/26/23 03:16 118 H 07/26/23 03:09 07/26/23 03:06 94 07/26/23 03:04 07/26/23 03:04 98.6 F 118 H 26 H 149/81 H 93 O2 Del Method O2 Flow Rate FiO2 07/26/23 16:04 Nasal Cannula 4 07/26/23 15:31 2 07/26/23 15:00 07/26/23 14:59 07/26/23 14:30 2 07/26/23 14:00 Nasal Cannula 1 07/26/23 13:48 Nasal Cannula 2 07/26/23 13:41 07/26/23 13:38 07/26/23 13:30 07/26/23 13:01 07/26/23 12:30 2 07/26/23 11:14 Nasal Cannula 2 07/26/23 10:56 Nasal Cannula 2 07/26/23 10:08 BiPAP 40 07/26/23 07:58 07/26/23 07:41 40 07/26/23 06:00 07/26/23 05:30 07/26/23 05:00 07/26/23 04:31 07/26/23 04:30 07/26/23 04:09 40 07/26/23 04:03 BiPAP 40 07/26/23 04:00 07/26/23 03:30 07/26/23 03:16 07/26/23 03:09 Nasal Cannula 07/26/23 03:06 07/26/23 03:04 Nasal Cannula 07/26/23 03:04 Nasal Cannula 3 Recovery Score Activity: Moves 4 extremities Respiration: Deep Breath/Cough Circulation: +/-20% PreAnes Value Consciousness: Fully Awake Oxygen Saturation: > 92% On Room Air Discharge Sedation Level of Care: Fast Track Phase II Post Sedation Plan On clinical assessment, the patient appears to have tolerated the sedation without complications. Patient is recovering as anticipated. Patient will continue to be monitored by nursing and may be discharged when jourdan tion discharge criteria are met per below protocol. Upon Completions of procedure up to 15 minutes continue every 5 minute vital signs and the P.A.R. score; then discharge to a Phase I or Fast Track to Phase II per the following guidelines: * Discharge Patient to appropriate Phase II area if PAR is 8 or greater or return to pre- procedure baseline. The post - procedure orders will be as directed. * If PAR score is less than 8 or not return to pre-procedure baseline then patient will follow Phase I monitoring till PAR is reached for Phase II. The Phase I may be done in procedure room or may call to secure a Phase I area. * If naloxone or flumazenil are used for reversal, hold in Phase I for continued monitoring from when last reversal dose was given for a minimum of 60 minutes or longer pending the nurse and/or physician discretion of patient condition before discharge to Phase II. Please call the Sedation Physician to re-evaluate and complete post-note for discharge to Phase II area. Do NOT discharge from procedure sedation or Phase 1 until post- sedation evaluation note is complete by procedure /sedation MD Sedation Discharge Instructions to be given to the patient at discharge to home.
--- NOTE | 2023-07-26 17:46 | Cardiac Catheterization ---
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 Cardiac Status Clinical evaluation leading to the procedure CAD Presenation: Non STEMI Anginal Classification: CCS IV Diagnostic Physicians Name: Aiden Grimes MD Closure Device Recommendations: Medical Therapy and/or Counseling Cardiac Cath Procedure Full Procedure Date July 26, 2023 Pre-Procedure Diagnosis Pre-Procedure Diagnosis: Non STEMI AUC Score AUC Score: 8 Post-Procedure Diagnosis Post-Procedure Diagnosis: Mild CAD Procedure(s) Performed Procedure(s) Performed: Coronary Angiography, Left Heart Cath and Ultrasound Guided Vascular Access Fence Maker Aiden Grimes MD Accounts Payable Clerk(s) Deibler Estimated Blood Loss Estimated Blood Loss: 5 Medication(s) Medication(s): Fentanyl, Heparin, Nicardipine, Nitroglycerin and Versed Summary of Findings Indication: High-risk NSTEMI Access: 6Fr right MEDICAL CLAIMS REPRESENTATIVE under ultrasound guidance. Attempted left radial artery access under ultrasound guidance unsuccessful. Unable to pass wire passed upper forearm Catheters: JL 4, JR4, pigtail Findings: LM -Short, almost separate ostium. No significant disease LAD -medium caliber, no significant proximal/mid segment disease. Small, tortuous distal LAD with luminal irregularities and extends to apex. Circumflex -large caliber, midsegment luminal irregularities, large bifurcating OM 3 without significant disease. RCA -dominant, medium caliber, angiographically normal. Arterial Closure: TR band Summary: 1. Minimal nonobstructive coronary artery disease Recommendations: Continued GDMT for nonischemic cardiomyopathy and ASCVD risk factor modification per Dr. Yates. Hemodynamics Rest Ao:: 89/42/74 Final Ao: 89/39/58 LV: -- Recommendations Recommendations: Medical Therapy and/or Counseling Specimens Specimens: None Radiation Exposure (mGy) 833 Contrast (mls) 45 Anesthesia Moderate [id number] Procedural Complication(s) None Disposition PCU I attest to the content of the Intraoperative Record and any orders documented therein. Any exceptions are noted below. [facility] Card Cath Procedure Codes Cardiac Catheterization Procedure 1: Cardiovascular Cath Procedures: 26697 Coronaries and LHC (+/-LV) Therapeutic Services & Ancillary Procedure 1: Cardiovascular Tx and Anc Procedures: 59395 Ultrasonic Guidance Vascular Access Moderate Sedation Procedure 1: Sedation/Anesthesia: 52437 Mod Sedation by the same physician;Init15 Min Child Age 5 & Up Procedure 2: Sedation/Anesthesia: 38793 Mod Sedation by the same physician; Ea [id number] Minutes PG Care Time/CCT Total # of Minutes Spent Total Time Spent with Patient: Total time spent is greater than 50% in coordination of care (as documented) at patient's floor/unit and/or counseling patient:
[2023-07-26] MEDS ORDERED: SODIUM CHLORIDE 0.9% 500 ML IV SCH (20:00)
[2023-07-26] MEDS: MONTELUKAST SODIUM 10 MG TABLET PO SCH (21:13)
--- NOTE | 2023-07-26 21:57 | Pharmacy Report ---
Pharmacy Vanc AUC Short Note - Date of Service July 26, 2023 - Assessment & Plan Assessment 83 year old started on vancomycin/zosyn empirically - PMHx significant for hld, HF, uses oxygen at home, CAD, CKD II, CVA, wheelchair bound and admitted for chest pain and concerns for NSTEMI. 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 Will start maintenance dose tomorrow. Plan Vancomycin * AUC/MOLLY is the preferred PK/PD target for vancomycin * AUC guided dosing is effective and associated with decreased risk of nephrotoxicity compared to traditional trough targets * Loading dose 1750 mg x 1 , plan to start vancomycin 1000 mg iv q 24 hours * Trough level of ~16 mcg/mL is predicted to achieve target AUC/MOLLY of 400-600 mg/L.hr and may be associated with a 12 % risk of nephrotoxicity * Plan to order vancomycin level if plan is continued >48 hours Pharmacy will continue to follow and will adjust dose/frequency as necessary. Thank you.
[2023-07-26] MEDS: PIPERACILLIN/TAZOBACTAM 4.5 GM in DEXTROSE 5% MINI-B 100 ML IV SCH (22:11)
[2023-07-27 00:05] LABS: A calco-baum cmplx NotReported Not Detected (NotDetected); Bact fragilis Not Reported Not Detected (NotDetected); Blood Culture Id Panel See PCR Comment (NotDetected); C auris Not Reported Not Detected (NotDetected); CTX-M Resistant Gene Not Detected (NotDetected); Calbicans Not Reported Not Detected (NotDetected); Candida glabrata Not Reported Not Detected (NotDetected); Candida krusei Not Reported Not Detected (NotDetected); Cneoformans/gatti Not Reported Not Detected (NotDetected); Cparapsilosis Not Reported Not Detected (NotDetected); E cloacae compx Not Reported Not Detected (NotDetected); Efaecalis Not Reported Not Detected (NotDetected); Efaecium Not Reported Not Detected (NotDetected); Enterobacterales DETECTED (NotDetected); Enterobacterales Not Reported DETECTED (NotDetected); Escherichia coli Not Reported DETECTED (NotDetected); H influenzae Not Reported Not Detected (NotDetected); IMP Resistant Gene Not Detected (NotDetected); K aerogenes Not Reported Not Detected (NotDetected); KPC Resistant Gene Not Detected (NotDetected); Koxytoca Not Reported Not Detected (NotDetected); Kpneumoniae grp Not Reported Not Detected (NotDetected); Lmonocyt Not Reported Not Detected (NotDetected); N meningitidis Not Reported Not Detected (NotDetected); NDM Resistant Gene Not Detected (NotDetected); OXA 48 Like Resistant Gene Not Detected (NotDetected); P aeruginosa Not Reported Not Detected (NotDetected); Proteus spp Not Reported Not Detected (NotDetected); Salmonella spp Not Reported Not Detected (NotDetected); Smarcescens Not Reported Not Detected (NotDetected); Staph lugdunensis Not Reported Not Detected (NotDetected); Staph spp. Not Reported Not Detected (NotDetected); Staphaureus Not Reported Not Detected (NotDetected); Staphepi Not Reported Not Detected (NotDetected); Stenmaltophilia Not Reported Not Detected (NotDetected); Strep agal(GrpB) Not Reported Not Detected (NotDetected); Strep pneum Not Reported Not Detected (NotDetected); Strep pyog (GrpA) Not Reported Not Detected (NotDetected); Strep spp Not Reported Not Detected (NotDetected); VIM Resistant Gene Not Detected (NotDetected); mcr-1 Colistin Resistant Gene Not Detected (NotDetected)
[2023-07-27] MEDS ORDERED: SODIUM CHLORIDE 0.9% 1,000 ML IV SCH ×2 (02:15)
[2023-07-27] MEDS: traMADol HCL 50 MG TABLET PO PRN (02:46)
[2023-07-27 02:50] LABS: Base Excess VBG 3.7 mEq/L; HCO3 VBG 30 mmol/L; Oxygen Saturation VBG < 60.0 %; PCO2 VBG 49 mmHg (38-50); PO2 VBG 21 mmHg; pH VBG 7.39 (7.36-7.41)
[2023-07-27] MEDS ORDERED: SODIUM CHLORIDE 0.9% 500 ML IV SCH (03:00)
[2023-07-27 03:13] LABS: Albumin Globulin Ratio 1.2 (0.9-2); Albumin Level 2.8 gm/dl (3.4-5.0); BUN Creatinine Ratio 18.7 (10-20); Bilirubin,Total 1.8 mg/dl (0.2-1.0); Calcium 7.6 mg/dl (8.6-10.3); Creatinine Clr Calc Pharmacy 34.8 ml/min; Est GFR (African American) 41.1 ml/min; Est GFR (Non-African American) 35.5 ml/min; Globulin 2.4 gm/dl (2.5-4.0); Magnesium 1.6 mg/dl (1.7-2.4); Potassium 4.4 mmol/L (3.5-5.1); Total Protein 5.2 gm/dl (6.0-8.3)
[2023-07-27] MEDS ORDERED: DEXTROSE 50% 50 ML SYRINGE IV ONE (03:29)
[2023-07-27 03:49] LABS: Hematocrit (blood only) 28.3 % (37.0-47.0); Mean Corpuscular Hgb Conc 31.8 g/dL (32.0-36.0); Mean Corpuscular Volume 113.2 fL (80.0-100.0); Mean Platelet Volume 11.4 fL (9.4-12.4); Platelet Count 66 K/uL (130-400); RDW Coefficient of Variation 14.6 % (11.5-14.5); RDW Standard Deviation 61.6 fL (36.4-46.3); White Blood Count 13.85 K/ul (4.8-10.8)
[2023-07-27] MEDS ORDERED: DEXTROSE 50% 50 ML SYRINGE IV STA (03:49)
[2023-07-27] MEDS ORDERED: DOXYCYCLINE HYCLATE 100 MG in DEXTROSE 5% MINI-B 100 ML IV STA (03:49)
[2023-07-27] MEDS: D5W AND NSS 1,000 ML IV SCH ×2 (03:50→08:19)
[2023-07-27 03:52] LABS: Basophils # (auto) 0.06 K/uL (0.00-0.20); Basophils % (auto) 0.4 %; Dohle Bodies 1+; Eosinophils # (auto) 0.01 K/uL (0.00-0.50); Eosinophils % (auto) 0.1 %; Immature Granulocytes # (auto) 0.37 K/uL (0.01-0.20); Immature Granulocytes % (auto) 2.7 %; Lymphocytes # (auto) 0.39 K/uL (1.20-3.40); Lymphocytes % (auto) 2.8 %; Monocytes # (auto) 0.33 K/uL (0.11-0.59); Monocytes % (auto) 2.4 %; Neutrophils # (auto) 12.69 K/uL (1.40-6.50); Neutrophils % (auto) 91.6 %; Platelet Estimate Decreased (Normal); Toxic Vacuolation 1+
[2023-07-27 03:59] LABS: Appearance Urine Turbid (Clear); Bacteria Urine Automated Negative (Negative); Bilirubin Urine Negative (Negative); Blood Urine 1+ (Negative); Color Urine Yellow; Epithelial Cell Urine Auto 20-30 /lpf (0-5); Glucose Urine UA Negative (Negative); Ketones Urine Negative (Negative); Leukocyte Esterase Urine 3+ (Negative); Nitrite Urine Positive (Negative); Protein Urine 1+ (Negative); Specific Gravity Urine 1.021 (1.000-1.030); Urobilinogen Urine Negative (Negative); WBC Urine Automated >30 /hpf (0-5)
[2023-07-27 04:04] LABS: Lyme Ab IgG w/WB Rflx Negative (Negative); Lyme Ab IgM w/WB Rflx Negative (Negative)
[2023-07-27] MEDS ORDERED: ALBUMIN 5% 250 ML IV ONE (04:49)
--- NOTE | 2023-07-27 05:31 | Critical Care Consultation ---
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 Coli, elevated PCT and elevated WBC - favoring diagnosis of septic shock now requiring vasopressors in the form of Levophed. Neuro - Metabolic Encephalopathy, HX of CVA CAM ICU: [facility] - Patient arrives lethargic/obtunded she does respond when engaged and follows commands and is appropriate, no focal deficits - CT head obtained prior to arrival to the ICU- no acute findings - she is on anticoagulation chronically and is supratherapeutic on heparin yesterday- so doubt any dural thrombus and CT head negative for hemorrhage - Not hypercarbic on her ABG from earlier - Encephalopathy likely related to septic shock at this time- follow neurological exams Cardiac - Shock- distributive sepsis, HFrEF, Chronic right sided failure, HTN, Nonobstrucive CAD, Elevated HsCTNI, afib - Shock- hypotensive, tachycardic, elevated lactate, PCT and WBC count with positive blood cultures making septic shockk the most likely cause especially in light of recent cath of non-osbtructive CAD - Organ dysfunction with- encephalopathy, elevated troponin, and XIN, thrombocytopenia - Levophed to maintain MAPS>65 - bolus of crystalloid for low uo if needed - hold further IVF at this time ECHO done 07/26/23 is with new depressed EF to 35-40% where previous echo in December was noted with grossly normal LVEF but with elevated RVSP - with severe mitral annular calcification but ECHO reports no regurge or stenosis, aortic valve was poorly visualized but is without murumur - She is with JVD however not with much peripheral edema and mild pulmonary congestion - Elevated HScTNI is likely demand secondary to shock - this has downtrended - Hold Eliquis and heparin at this time with thrombocytopenia Respiratory - COPD, night time hypoxia - Will place on CPAP/BiPAP on arrival as she is with mild hypoxia and clonus jerks when she is sleeping - ABG later in morning if desired GI - No acute needs - PPI while on antiplatelets and xa inhibitor RENAL/LYTES - XIN on CKD III, electrolyte disturbances - Urine output minimal overnight- morris placed follow - consider diuretic when appropriate - replete mag and k - Morris inserted for accurate UO while on vasopressors ENDO - Hypothyroidism - Check TSH with relex t4- doubt playing a role as she is normal rate and norm othermic - Random cortisol pending HEME - Chronic anemia, thrombocytopenia - Macrocytic - transfuse for HGB <8 while on vasopressors and with organ dysfunction - Thrombocytopenia- this appears new- 98 on arrival prior to heparin initiation - likely secondary to sepsis at this time - follow consider sending HIT workup if no improvement - Consider holding plavix until platelet count improves ID - Septic shock with GNB bactereimia, MRSA nares positive - Blood cultures positive, urine negative - shock as above - continue Zosyn- consider changing vancomycin to doxy or linezolid with her renal function as well as obtaining vanc level with her weight and renal function may be difficult LINES/IV ACCESS - CVL, Morris, PIV x2 Continue use of these lines DVT PROPHYLAXIS - SCDS DISPO: ICU while on vasopressors I have personally spent 60 minutes of critical care time in the direct management of this patient. This is a life/limb threatening event. This includes time spent evaluating patient, direct bedside care, chart review, placing orders, interpretation of diagnostic studies, discussion with consultants, pat ient, and family members, as well as other required patient management activities. This time is exclusive of all separately billable procedures, and separate from and in addition to any other critical care service time. Thank you for allowing us to participate in the care of this patient. Please refer to my attending physician's documentation for any further recommendations. History of Present Illness Reason for Consultation: shock Requesting Physician: keri golden MD Attending Physician: Ching Hu MD History of Present Illness 83 YOF with medical history of: HFrEF, asthma, non-obstructive CAD, CVA, Afib(on elquis), DVT, PE, CKD III, Anemia, HTN, Hypothyroidism. Patient was originally admitted on 07/26/23 for chest pain and dyspnea, she was taken to the cathode maker 07/26/23 at 1700 and was noted to have minimal nonobstructive CAD, she was taken back tot he floor and has been hypotensive throughout the late night into early monring now refractory to fluid bolus. She had blood cultures obtained on admission and these are currently positive for GNB with PCR of E. COLI, urine from admission has no growth at this time. Patient was transferred to ICU for hypotension where she will likely need invasive monitoring with arterial line, Central access as she has poor PIV access currently and vasopressors. Patient is Lethargic on arrival, but stays awake and follows commands as long as engaged, she is with jerking of her extremities so will initiate CPAP/BiPAP, check BG, Lactate, Random Cortisol, and TSH. CXR obtained noted with right hemidiaphragm, and enlarged heart, some pulmonary edema. CODE: DNR/DNI Allergies Allergy/AdvReac Type Severity Reaction Status Date / Time aspirin Allergy Intermediate ITCHING Verified 07/26/23 03:08 Sulfa (Sulfonamide Allergy Unknown PER Verified 07/26/23 03:08 Antibiotics) GMG--HAPPENED IN HOSPITAL Home Medications Medication Instructions Recorded Confirmed Type albuterol sulfate 90 mcg/actuation 2 puff inhalation Q4 PRN Shortness 11/10/18 07/26/23 History aerosol inhaler (Ventolin HFA) Of Breath Or Wheezing carvedilol 12.5 mg tablet 12.5 mg PO BID 11/10/18 07/26/23 History montelukast 10 mg tablet 10 mg PO HS 11/10/18 07/26/23 History pantoprazole 40 mg tablet,delayed 40 mg PO DAILY 07/22/19 07/26/23 History release atorvastatin 20 mg tablet 20 mg PO DAILY 10/11/19 07/26/23 History levothyroxine 50 mcg tablet 50 mcg PO DAILYBB 01/15/20 07/26/23 History albuterol sulfate 2.5 mg/3 mL 2.5 mg inhalation Q4H PRN Wheezing 01/06/21 07/26/23 History (0.083 %) solution for nebulization cholecalciferol (vitamin D3) 25 25 mcg PO DAILY 01/06/21 07/26/23 History mcg (1,000 unit) capsule duloxetine 60 mg capsule,delayed 60 mg PO BID 03/07/22 07/26/23 History release fluticasone 100 mcg-salmeterol 50 1 inh inhalation BID 03/07/22 07/26/23 History mcg/dose blistr powdr for inhalation (Advair Diskus) furosemide 20 mg tablet 20 mg PO QAM 03/07/22 07/26/23 History iron,carbonyl 65 mg-vitamin C 125 1 tab PO DAILY 03/07/22 07/26/23 History mg tablet,delayed release (Vitron-C) apixaban 5 mg tablet (Eliquis) 5 mg PO BID #60 tabs 01/03/23 07/26/23 Rx clopidogrel 75 mg tablet 75 mg PO QAM #30 tabs 01/03/23 07/26/23 Rx acetaminophen 325 mg tablet 650 mg PO Q6H PRN Pain 07/26/23 07/26/23 History (Tylenol) gabapentin 300 mg capsule 300 mg PO TID 07/26/23 07/26/23 History lasmiditan 50 mg tablet (Reyvow) 50 mg PO DIRECTED PRN Migraine 07/26/23 07/26/23 History Headache lidocaine 5 % topical patch 1 patch topical DAILY 07/26/23 07/26/23 History tramadol 50 mg tablet 50 mg PO BID PRN Pain 07/26/23 07/26/23 History Patient History Medical History (Updated 07/27/23 @ 09:36 by Kg Jacobsen, DO) Acute kidney injury Abnormal urinalysis Chronic left hip pain Diffuse myofascial pain syndrome Chronic anticoagulation Opioid dependence History of pulmonary embolism Pulmonary edema History of AK (myocardial infarction) 2018 - FOLLOWS W/ DR. JACOBSEN On anticoagulant therapy History of endometriosis Osteoporosis Osteoarthritis Migraine Poor historian History of DVT (deep vein thrombosis) RLE - 20 YEARS AGO FOLLOWING INJURY On home oxygen therapy 2 LPM 02 QHS Sleep apnea NO DEVICE Hypertension Hypothyroidism Asthma USES PRN INH 1 X WK Pulmonary embolism (10/10/12) 20 YEARS AGO AFTER INJURY 30 YEARS AGO - POST OP CHOLEYCYSTECTOMY ON WARFARIN Atrial flutter PT COULD NOT CONFIRM Surgical History History of cardiac cath 2018 - [place] - NO STENTS History of left knee surgery History of tubal ligation History of section History of total abdominal hysterectomy and bilateral salpingo-oophorectomy History of appendectomy History of cholecystectomy History of cataract surgery History of tonsillectomy History of esophagogastroduodenoscopy (EGD) History of colonoscopy Family History Father , age 51 of cancer Esophageal cancer Lung cancer Mother , age 103 No problems noted. 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 [employer] Feels Safe at Home: Yes Safety Concerns: Feels Safe At This Time Assistive Devices: Cane, Oxygen - Continuous, Walker and Wheelchair Review of Systems Review of Systems: REVIEW OF SYSTEMS: Constitutional: No fever, sweats or chills Eyes: No diplopia, no worsening or blurred vision ENT: normal hearing, no trouble swallowing Respiratory: (+) dyspnea- improved since admission, No cough, sputum, orthopnea Cardiovascular: No chest pain, tightness or palpitations Abdomen: No pain, nausea, vomiting, diarrhea or constipation Musculoskeletal: No joint pain, calf pain, swelling Neurologic: No weakness, numbness/tingling, or balance problems Skin: + bruising Physical Exam Physical Exam: PHYSICAL EXAM: General: Lethargic, ell appearing Head: Normocephalic, atraumatic ENT: PERRLA, EOMI, no pharyngeal exudate, mucous membranes dry Neuro: AAO x 2 (person place), speech clear and appropriate, strength intact bilaterally 5/5, sensation intact and equal all extremities and dermatomes, no pronator drift Chest: equal rise and fall of the chest, no accessory muscle use, no heaves or thrills, decreased in bases with fine crackles Cardiac: irregular rate and rhythm, telemetry reviewed- afib, skin warm dry, cap refill <3 seconds, peripheral pulses +2, JVD, no murmur, GI: NABS x 4 quadrants, soft, nontender to palpation, no rebound, guarding or tenderness : Morris to gravity draining light stefani urine Skin: multiple areas of ecchymosis bilaterally, skin tear to left forearm Results & Data Results & Data Vital Signs (Past 12 Hours) Vital Signs Temp Pulse Pulse Pulse Resp BP BP 07/27/23 04:55 83/50 L 07/27/23 04:31 70/43 L 07/27/23 03:10 100 H 105/73 07/27/23 02:59 81/54 L 07/27/23 02:49 93/41 L 07/27/23 02:44 37.4 C 102 H 22 102/70 07/27/23 02:20 37.5 C 102 H 20 75/41 L 07/27/23 02:17 85/48 L 07/27/23 00:00 07/26/23 23:35 07/26/23 23:00 36.7 C 86 18 108/57 L 07/26/23 22:00 83 07/26/23 21:19 101/56 L 07/26/23 20:40 75 18 07/26/23 20:26 76 92/60 L 07/26/23 19:46 36.7 C 80 18 77/45 L 07/26/23 19:21 76 94/60 L 07/26/23 19:15 76 94/60 L 07/26/23 18:56 36.7 C 84 20 88/49 L 07/26/23 18:30 07/26/23 18:26 36.7 C 76 20 94/60 L 07/26/23 18:11 36.7 C 88 20 80/46 L 07/26/23 17:59 36.7 C 90 20 76/45 L 07/26/23 17:59 36.7 C 90 20 76/45 L Pulse Ox O2 Del Method O2 Flow Rate 07/27/23 04:55 07/27/23 04:31 07/27/23 03:10 94 Nasal Cannula 3 07/27/23 02:59 07/27/23 02:49 07/27/23 02:44 98 Room Air 07/27/23 02:20 97 Nasal Cannula 3 07/27/23 02:17 07/27/23 00:00 Nasal Cannula 3 07/26/23 23:35 99 Nasal Cannula 4 07/26/23 23:00 99 Nasal Cannula 4 07/26/23 22:00 07/26/23 21:19 07/26/23 20:40 94 Nasal Cannula 4 07/26/23 20:26 07/26/23 19:46 96 Nasal Cannula 4 07/26/23 19:21 07/26/23 19:15 07/26/23 18:56 94 Nasal Cannula 4 07/26/23 18:30 Nasal Cannula 4 07/26/23 18:26 94 Nasal Cannula 4 07/26/23 18:11 94 Room Air 4 07/26/23 17:59 96 Nasal Cannula 4 07/26/23 17:59 96 Nasal Cannula 4 Laboratory Results Abnormal lab results 07/26/23 07/26/23 07/26/23 Range/Units 03:27 09:39 13:21 WBC 13.49 H (4.8-10.8) K/ul RBC 2.71 L (4.20-5.40) M/uL Hgb 9.8 L (12.0-16.0) g/dl Hct 30.9 L (37.0-47.0) % MCV 114.0 H (80.0-100.0) fL MCH 36.2 H (25.0-34.0) pg MCHC 31.7 L (32.0-36.0) g/dL RDW Std Deviation 60.3 H (36.4-46.3) fL RDW Coeff of Vijay (11.5-14.5) % Plt Count 91 L (130-400) K/uL Neut # (Auto) 12.63 H (1.40-6.50) K/uL Lymph # (Auto) 0.35 L (1.20-3.40) K/uL Immature Gran # (Auto) (0.01-0.20) K/uL Platelet Estimate (Normal) Heparin Anti-Xa, Unfract > 1.50 H* (0.3-0.7) IU/ml Potassium 3.3 L D (3.5-5.1) mmol/L BUN (6-23) mg/dl Creatinine 1.26 H (0.6-1.2) mg/dl Glucose (70-99(Fasting)) mg/dl Lactate (0.4-2.0) mmol/L Calcium 8.1 L (8.6-10.3) mg/dl Magnesium (1.7-2.4) mg/dl Total Bilirubin (0.2-1.0) mg/dl Troponin I High Sens 1409.6 H* D 1472.0 H* (0-14) pg/ml Total Protein (6.0-8.3) gm/dl Albumin (3.4-5.0) gm/dl Globulin (2.5-4.0) gm/dl Procalcitonin (0-0.5) ng/ml Urine Appearance (Clear) Urine Protein (Negative) Urine Blood (Negative) Urine Nitrite (Negative) Ur Leukocyte Esterase (Negative) Urine WBC (Auto) (0-5) /hpf Urine RBC (Auto) (0-4) /hpf U Epithel Cells (Auto) (0-5) /lpf Urine Yeast (None Prsent) Nasal Screen MRSA (PCR) (Negative) Enterobacterales (PCR) DETECTED A (NotDetected) E. coli (PCR) DETECTED A (NotDetected) 07/26/23 07/26/23 07/26/23 Range/Units 15:07 15:08 23:05 WBC (4.8-10.8) K/ul RBC (4.20-5.40) M/uL Hgb (12.0-16.0) g/dl Hct (37.0-47.0) % MCV (80.0-100.0) fL MCH (25.0-34.0) pg MCHC (32.0-36.0) g/dL RDW Std Deviation (36.4-46.3) fL RDW Coeff of Vijay (11.5-14.5) % Plt Count (130-400) K/uL Neut # (Auto) (1.40-6.50) K/uL Lymph # (Auto) (1.20-3.40) K/uL Immature Gran # (Auto) (0.01-0.20) K/uL Platelet Estimate (Normal) Heparin Anti-Xa, Unfract > 1.50 H* (0.3-0.7) IU/ml Potassium (3.5-5.1) mmol/L BUN 24 H (6-23) mg/dl Creatinine 1.26 H (0.6-1.2) mg/dl Glucose (70-99(Fasting)) mg/dl Lactate (0.4-2.0) mmol/L Calcium 8.0 L (8.6-10.3) mg/dl Magnesium (1.7-2.4) mg/dl Total Bilirubin (0.2-1.0) mg/dl Troponin I High Sens 2084.8 H* D (0-14) pg/ml Total Protein (6.0-8.3) gm/dl Albumin (3.4-5.0) gm/dl Globulin (2.5-4.0) gm/dl Procalcitonin 41.70 H (0-0.5) ng/ml Urine Appearance (Clear) Urine Protein (Negative) Urine Blood (Negative) Urine Nitrite (Negative) Ur Leukocyte Esterase (Negative) Urine WBC (Auto) (0-5) /hpf Urine RBC (Auto) (0-4) /hpf U Epithel Cells (Auto) (0-5) /lpf Urine Yeast (None Prsent) Nasal Screen MRSA (PCR) (Negative) Enterobacterales (PCR) (NotDetected) E. coli (PCR) (NotDetected) 07/26/23 07/27/23 07/27/23 Range/Units Unknown 02:43 Unknown WBC 13.85 H (4.8-10.8) K/ul RBC 2.50 L (4.20-5.40) M/uL Hgb 9.0 L (12.0-16.0) g/dl Hct 28.3 L (37.0-47.0) % MCV 113.2 H (80.0-100.0) fL MCH 36.0 H (25.0-34.0) pg MCHC 31.8 L (32.0-36.0) g/dL RDW Std Deviation 61.6 H (36.4-46.3) fL RDW Coeff of Vijay 14.6 H (11.5-14.5) % Plt Count 66 L (130-400) K/uL Neut # (Auto) 12.69 H (1.40-6.50) K/uL Lymph # (Auto) 0.39 L (1.20-3.40) K/uL Immature Gran # (Auto) 0.37 H (0.01-0.20) K/uL Platelet Estimate Decreased L (Normal) Heparin Anti-Xa, Unfract (0.3-0.7) IU/ml Potassium (3.5-5.1) mmol/L BUN 26 H (6-23) mg/dl Creatinine 1.39 H (0.6-1.2) mg/dl Glucose 65 L (70-99(Fasting)) mg/dl Lactate 2.1 H* (0.4-2.0) mmol/L Calcium 7.6 L (8.6-10.3) mg/dl Magnesium 1.6 L (1.7-2.4) mg/dl Total Bilirubin 1.8 H (0.2-1.0) mg/dl Troponin I High Sens 1962.1 H* (0-14) pg/ml Total Protein 5.2 L (6.0-8.3) gm/dl Albumin 2.8 L (3.4-5.0) gm/dl Globulin 2.4 L (2.5-4.0) gm/dl Procalcitonin (0-0.5) ng/ml Urine Appearance Turbid A (Clear) Urine Protein 1+ H (Negative) Urine Blood 1+ H (Negative) Urine Nitrite Positive A (Negative) Ur Leukocyte Esterase 3+ H (Negative) Urine WBC (Auto) >30 H (0-5) /hpf Urine RBC (Auto) 5-10 H (0-4) /hpf U Epithel Cells (Auto) 20-30 H (0-5) /lpf Urine Yeast Budding A (None Prsent) Nasal Screen MRSA (PCR) Positive A (Negative) Enterobacterales (PCR) (NotDetected) E. coli (PCR) (NotDetected) Diagnostic Findings Chest X-Ray 07/26/23 03:09 XR chest 1V portable HISTORY: Chest pain, nonspecific COMPARISON: Chest 01/01/2023. FINDINGS: No pneumothorax. No pleural effusions. There is chronic elevation of the right hemidiaphragm. A few bibasilar linear densities persist and favor scarring or subsegmental atelectasis. No new focal lung consolidations to suggest a pneumonia. No evidence for pulmonary edema. The heart remains unenlarged. Prior cholecystectomy. Advanced degenerative changes within the shoulders. IMPRESSION: 1. No acute process within the chest. 2. Chronic elevation of of the right hemidiaphragm again noted. ACT 112: Negative or not required by law. Electronically signed by: Clyde Jensen M.D. 07/26/2023 7:[address] 07/27/23 03:01 CT OF THE HEAD WITHOUT CONTRAST CLINICAL HISTORY: Altered mental status. COMPARISON STUDY: Head CT and MRI of the brain January 01, 2023. CT DOSE: 2857.42 mGy.cm TECHNIQUE: Helical axial images of the head were obtained without IV contrast. Automated exposure control was utilized for the study. A dose lowering technique was utilized adhering to the principles of ALARA. FINDINGS: This exam is moderately compromised by motion artifact. No acute intracranial hemorrhage, midline shift or mass effect is present. The vent ricular system is stable. White matter hypodensities suggest small vessel disease. These are unchanged. The basal cisterns are patent. No extra-axial collections are present. There are no findings to suggest acute dural sinus thrombosis or acute territorial infarct. IMPRESSION: 1. No acute intracranial findings. No change in appearance of the brain. 2. Exam moderately compromised by motion artifact. ACT 112: Negative or not required by law. Electronically signed by: Shon Rushing M.D. 07/27/2023 6:36 AM Coding Level of Care Code 05495 CRITICAL CARE 1ST 30-74M Diagnoses Septic shock A41.9; R65.21 PAF (paroxysmal atrial fibrillation) I48.0 Exacerbation of asthma, unspecified asthma severity, unspecified whether persistent J45.901 Asthma persistence: unspecified Asthma severity: unspecified severity Chronic anticoagulation Z79.01 Pulmonary embolism I26.99 Hypothyroidism E03.9 CAD (coronary artery disease) I25.10 (3) Asthma exacerbation Asthma persistence: unspecified Asthma severity: unspecified severity Qualified Code(s): J45.901 - Unspecified asthma with (acute) exacerbation
--- NOTE | 2023-07-27 05:31 | Procedure Note ---
Procedure Note Date of Service July 27, 2023 Note Procedure: Internal Jugular Central Line Placement Proceduralist: Christopher SO ([facility] Attending: Dr. Ta Indication: Central Drug Administration, Poor Venous Access, Multiple Lab Draws Necessary, etc. Anesthesia: [x]Lidocaine 1% Emergent consent was implied as patient with poor IV access requiring vasopressors, patient informed of procedure and needs no immediate family available. A time-out was completed verifying correct patient, procedure, site, positioning, and implants(s) or special equipment if applicable. Patients RIGHT Neck was cleansed and draped in the typical sterile fashion using Chloraprep. The Internal Jugular Vein and Carotid Artery were identified using ultrasound. The superficial tissue was anesthetized using 5 mL of 1% lidocaine without epinephrine under direct visualization with the ultrasound. After adequate anesthetization was achieved, the Internal Jugular vein was cannulated under direct ultrasound guidance using an introducer needle on a syringe. Good venous blood return was maintained prior to removal of syringe from introducer needle. Using Seldinger Technique, a guide wire was advanced through the introducer needle without resistance. The introducer needle was removed and ultrasound images were obtained of the guide wire within the Internal Jugular Vein. A small incision was made in penetrating fashion at the guide wire insertion site utilizing an 11 blade scalpel. The dilator was advanced to the vessel without resistance. The dilator was exchanged for the triple lumen catheter which was advanced into the vessel without resistance. The guide wire was removed intact from the catheter without issue. Claves were placed on each catheter tip with confirmation of good blood flow from each lumen. Each port was easily flushed with sterile saline. The catheter was placed at 18 cm and sutured in place. BioPatch was applied to the catheter and a sterile Tegaderm dressing was applied over the catheter with careful attention to sterility. Patient tolerated p rocedure well. No immediate complications were met. Post procedure x-ray was completed, placement was appropriate and no pneumothorax was noted. Ultrasound used to dinkey engine mechanic vessels prior to procedure and for direct visualization- images not saved to permanent record as procedure was urgent Artery AND Vein visualized: YES Compressible Vein: YES Guidewire or Short Catheter seen in vein prior to dilation: YES Images obtained are saved for permanent record. Coding CPT Codes Tubes, Drains, and Vasc Access - Tubes, Drains, and Vasc Access: [id number] Insertion Of Non-tunneled Catheter Age 7 Yrs> ([id number]) [facility] [place]Charges) Tubes, Drains, and Vasc Access Procedure 1: Tubes, Drains, and Vasc Access: [id number] Insertion Of Non-tunneled Catheter Age 7 Yrs>
[2023-07-27] MEDS ORDERED: STAT IV Infusion **Titration per Protocol STA (05:38)
[2023-07-27] MEDS ORDERED: NOREPINEPHRINE/D5W 4 MG/250 ML IV ONE (05:39)
--- NOTE | 2023-07-27 06:38 | CT Scan Report ---
CT OF THE HEAD WITHOUT CONTRAST CLINICAL HISTORY: Altered mental status. COMPARISON STUDY: Head CT and MRI of the brain January 01, 2023. CT DOSE: 2857.42 mGy.cm TECHNIQUE: Helical axial images of the head were obtained without IV contrast. Automated exposure con trol was utilized for the study. A dose lowering technique was utilized adhering to the principles o f ALARA. FINDINGS: This exam is moderately compromised by motion artifact. No acute intracranial hemorrhage, m idline shift or mass effect is present. The ventricular system is stable. White matter hypodensities suggest small vessel disease. These are unchanged. The basal cisterns are patent. No extra-axial brandon ections are present. There are no findings to suggest acute dural sinus thrombosis or acute territori al infarct. IMPRESSION: 1. No acute intracranial findings. No change in appearance of the brain. 2. Exam moderately compromised by motion artifact. ACT 112: Negative or not required by law. Electronically signed by: Shon Rushing M.D. 07/27/2023 6:36 AM
[2023-07-27] MEDS: MAGNESIUM SULFATE / D5W 1 GM/100 ML BAG IV SCH ×2 (07:04→08:20)
[2023-07-27] MEDS: NOREPINEPHRINE/D5W 4 MG/250 ML PLCT IV SCH ×2 (07:05→17:08)
--- NOTE | 2023-07-27 07:17 | Electrocardiogram Report ---
Test Reason : Blood Pressure : / mmHG Vent. Rate : 087 BPM Atrial Rate : 087 BPM P-R Int : 184 ms QRS Dur : 162 ms QT Int : 462 ms P-R-T Axes : 014 -12 142 degrees QTc Int : 555 ms Normal sinus rhythm Left bundle branch block Abnormal ECG When compared with ECG of 26-JUL-2023 14:05, Premature ventricular complexes are no longer Present Confirmed by Aiden Burnett ([id number]) on 07/27/2023 7:17:04 AM Referred By: REFERRED SELF Confirmed By:Dawood Burnett
--- NOTE | 2023-07-27 07:40 | CT Scan Report ---
ABDOMEN AND PELVIS CT WITHOUT CONTRAST CT DOSE: HISTORY: sepsis.bactermia. casandra. TECHNIQUE: Multiaxial CT images of the abdomen and pelvis were performed without contrast. A dose lo wering technique was utilized adhering to the principles of ALARA. COMPARISON STUDY: Abdomen pelvis CT 03/28/2022. FINDINGS: There are chronic compression deformities again noted at T12 and L3. The T12 compression de formity demonstrates 4 mm of retropulsion, unchanged. No acute fractures identified. Elevated right h emidiaphragm with right lower lobe consolidation. This favors atelectasis. A pneumonia could also hav e a similar appearance. Mild densities within the left lung base also favor atelectasis. No pneumoper itoneum. No pneumatosis. The heart is mildly enlarged. The unenhanced liver, spleen, and adrenal glan ds are unremarkable. Intra and extra hepatic bile duct dilatation persists. Prior cholecystectomy. Th e pancreas remains atrophic. Mild bilateral perinephric edema again noted. Residual contrast within t he urinary system from recent catheterization is noted. Stable rim calcified hypodense lesion within the right kidney which may represent a cyst or chronic subcapsular collection. No hydronephrosis. Vas cular calcifications are noted. Normal caliber abdominal aorta. No retroperitoneal or pelvic lymphade nopathy. Small hematoma within the right inguinal region extending into the right extraperitoneal spa ce adjacent to the distal iliac vessels. This measures up to 3 cm in thickness. No bladder wall thick ening. Prior hysterectomy. Suboptimal evaluation for bowel pathology due to the lack of intravenous a nd oral contrast. However, there is no definite bowel wall thickening or obstruction. Colonic diverti culosis. No evidence for acute diverticulitis. Trace bilateral pleural effusions. IMPRESSION: 1. Small right inguinal/extraperitoneal hematoma measuring up to 3 mm in thickness. This could be due to the recent catheterization. 2. No bowel wall thickening or obstruction. 3. No hydronephrosis. 4. Trace bilateral pleural effusions. 5. Consolidation within the base of the right lower lobe may represent atelectasis or a pneumonia. 6. Additional findings as described above. ACT 112: Negative or not required by law. Electronically signed by: Clyde Jensen M.D. 07/27/2023 7:37 AM
--- NOTE | 2023-07-27 07:54 | Hospitalist Progress Note ---
Date of Service July 27, 2023 Assessment & Plan (1) Chest pain: Plan: Ms Breaux is an 83-year-old female with past med history significant for hyperlipidemia, hypothyroidism, asthma mild persistent, uses oxygen 2 L in the nighttime and as needed during daytime, chronic right-sided heart failure, history of CAD, hypertension, long QT interval, history of A-fib, irritable bowel syndrome, GERD, B12 deficiency, CKD stage III, migraines, history of DVT and PE, history of depression, history of CVA, currently wheelchair-bound who was admitted 07/27 for chest pain and concerns for NSTEMI. Patient became progressively more ill appearing and hypotensive prompting infectious workup and empiric antibiotic coverage in the afternoon of 07/27. Patient went to vp lab, where it was revealed that patient had very minimal nonobstructive coronary artery disease. Course complicated by hypotension refractory to fluid resuscitation prompting transfer to ICU for pressor support. #Acute Toxic metabolic encephalopathy #Prior CVA Reportedly obtunded overnight, CT head negative ABG not hypercarbic, likely secondary to infectious process/septic shock Delirium precautions Manage contributing factors as below Continue statin, resume plavix when thrombocytopenia improves for 2/2 prevention #Septic Shock, 2/2 GNB bacteremia, c/f urinary source #Acute complicated pyelonephritis -CT AP with bilateral perinephric edema -Initial admission eval for ACS r/o, patient appeared progressively more ill throughout course of admission -Blood cultures 2/2 +GNB bacteremia -Denied constitutional symptoms outside of general fatigue, reported symptom was mid-sternal, atypical chest pain -Infectious work up pending, plan for ID consult once organism results for ABX recommendations/duration -Pressor support per ICU -Repeat Blood cultures until no growth #NSTEMI, likely demand type II in setting of sepsis #Acute heart failure with reduced ejection fraction #Chronic Right Heart Failure #Mild nonobstructive CAD #LBBB #Prolonged QT Troponin Peaked 2097, ECHO with septal wall motion, global hypokinesis of LV EKG shows left bundle branch block and wide QRS rhythm. Left bundle marlene b lock seems to be old s/p [facility] 07/26, no obstructive lesions contributing to presentation Hold lasix at this time given sepsis, monitor fluid status, strict IOs daily weights Hold antihypertensives at this time, including home coreg Cardiology on consult, appreciate recommendations Avoid QT prolongating agents #Paroxysmal Atrial Fibrillation -Discontinue heparin -Resume Eliquis when thrombocytopenia improves -Cardiology on consult #Acute Thrombocytopenia #Chronic macrocytic anemia #Prior DVT/PE #Right inguinal hematoma -Likely iso sepsis -Hgb stable: CT AP with extraperitoneal hematoma 3cm -Trend CBC, plan for peripheral smear if not resolving after empiric treatment for infection -Hold plavix -Hold anticoagulation for now, resume Eliquis when able -Transfuse for hgb <7 -Baseline folate/b12/iron studies in am -Continue home supplementation -Monitor hematoma site for signs of hemorrhage #Acute on chronic hypoxic respiratory failure, iso sepsis and bilateral pleural effusions #Nocturnal Hypoxia #COPD/Asthma -Wears 2L qhs O2, uses prn - No wheezing, does not appear to be in exacerbation Continue montelukast Continue home inhalers Nebs ATC and as needed ABG with good oxygenation, no significant retention of CO2 Monitor fluid status as able, diuersis when stable from sepsis standpoint #XIN on CKD stage IIIa #Acute pyelonephritis Recent GFR 55-56 2022, Cr baseline ~1 Now 1.39, likely iso sepsis/hypotension Will follow labs, keep maps >65 Strict I/OS #Chronic hip pain 2/2 bilateral greater trochanteric bursitis -Received steroid injections with Rheum 05/28/2023 -Nonsedating, delirium inducing pain management at this time -CTM, tylenol prn #Hypothyroidism TSH wnl on admission On Synthyroid #Migraines Will monitor DVT prophylaxis: SCDs for now Dispo: Remain in ICU for close hemodynamic monitoring for critically ill patient with sepsis Admission and Anticipated Discharge Date Admission Date: July 26, 2023 Subjective Acute Events in 24 hours: -Infectious work up obtained, Empiric Coverage -[facility] with minimal, nonobstructive CAD -Transferred to ICU for septic shock, hypotension refractory to IV bolus -On NE via RIJ, 0.07, MAPs in 70-80s Evaluated patient at bedside. Awake and responds with slight verbalizations, not communicative but maintaining airway Review of Systems Review of Systems: Unobtainable due to reduced consciousness Physical Exam Constitutional: Ill appearing, pulling at lines Neck: right IJ Gastrointestinal (Abdomen): normal bowel sounds, soft, nontender, no hepatosplenomegaly Results & Data Results & Data Vital Signs (Past 12 Hours) Vital Signs Temp Pulse Pulse Pulse Resp BP BP 07/27/23 07:30 80 21 103/56 L 07/27/23 07:30 07/27/23 07:04 89 16 07/27/23 07:04 135/95 07/27/23 07:00 124/68 07/27/23 07:00 86 24 07/27/23 04:55 07/27/23 04:31 07/27/23 03:10 100 H 07/27/23 02:59 07/27/23 02:49 07/27/23 02:44 37.4 C 102 H 22 07/27/23 02:20 37.5 C 102 H 20 07/27/23 02:17 07/27/23 00:00 07/26/23 23:35 07/26/23 23:00 36.7 C 86 18 07/26/23 22:00 83 07/26/23 21:19 101/56 L 07/26/23 20:40 75 18 07/26/23 20:26 76 07/26/23 19:46 36.7 C 80 18 BP Pulse Ox O2 Del Method O2 Flow Rate 07/27/23 07:30 97 07/27/23 07:30 BiPAP 07/27/23 07:04 91 07/27/23 07:04 07/27/23 07:00 07/27/23 07:00 91 07/27/23 04:55 83/50 L 07/27/23 04:31 70/43 L 07/27/23 03:10 105/73 94 Nasal Cannula 3 07/27/23 02:59 81/54 L 07/27/23 02:49 93/41 L 07/27/23 02:44 102/70 98 Room Air 07/27/23 02:20 75/41 L 97 Nasal Cannula 3 07/27/23 02:17 85/48 L 07/27/23 00:00 Nasal Cannula 3 07/26/23 23:35 99 Nasal Cannula 4 07/26/23 23:00 108/57 L 99 Nasal Cannula 4 07/26/23 22:00 07/26/23 21:19 07/26/23 20:40 94 Nasal Cannula 4 07/26/23 20:26 92/60 L 07/26/23 19:46 77/45 L 96 Nasal Cannula 4 Laboratory Results Short CBC 07/27/23 Range/Units 02:43 WBC 13.85 H (4.8-10.8) K/ul Hgb 9.0 L (12.0-16.0) g/dl Hct 28.3 L (37.0-47.0) % Plt Count 66 L (130-400) K/uL BMP 07/26/23 07/27/23 15:08 02:43 Sodium 140 139 Potassium 3.7 4.4 Chloride 105 105 Carbon Dioxide 28 27 BUN 24 H 26 H Creatinine 1.26 H 1.39 H Glucose 88 65 L Calcium 8.0 L 7.6 L Liver Function 07/27/23 Range/Units 02:43 Total Bilirubin 1.8 H (0.2-1.0) mg/dl AST 31 (13-39) U/L ALT 10 (7-52) U/L Alkaline Phosphatase 72 (34-104) U/L Albumin 2.8 L (3.4-5.0) gm/dl Urine 07/27/23 Range/Units Unknown Urine Color Yellow Urine Appearance Turbid A (Clear) Urine pH 7.0 (4.5-7.5) Ur Specific [place] 1.021 (1.000-1.030) Urine Protein 1+ H (Negative) Urine Glucose (UA) Negative (Negative) Medications Administered Home Medications Medication Instructions Recorded Confirmed Last Taken albuterol sulfate 90 mcg/actuation 2 puff inhalation Q4 PRN Shortness 11/10/18 07/26/23 07/26/19 19:30 aerosol inhaler (Ventolin HFA) Of Breath Or Wheezing carvedilol 12.5 mg tablet 12.5 mg PO BID 11/10/18 07/26/23 03/07/22 08:00 montelukast 10 mg tablet 10 mg PO HS 11/10/18 07/26/23 03/06/22 pantoprazole 40 mg tablet,delayed 40 mg PO DAILY 07/22/19 07/26/23 03/07/22 release atorvastatin 20 mg tablet 20 mg PO DAILY 10/11/19 07/26/23 03/07/22 levothyroxine 50 mcg tablet 50 mcg PO DAILYBB 01/15/20 07/26/23 03/07/22 albuterol sulfate 2.5 mg/3 mL 2.5 mg inhalation Q4H PRN Wheezing 01/06/21 07/26/23 Unknown (0.083 %) solution for nebulization cholecalciferol (vitamin D3) 25 25 mcg PO DAILY 01/06/21 07/26/23 03/07/22 mcg (1,000 unit) capsule duloxetine 60 mg capsule,delayed 60 mg PO BID 03/07/22 07/26/23 03/07/22 release fluticasone 100 mcg-salmeterol 50 1 inh inhalation BID 03/07/22 07/26/23 03/07/22 08:00 mcg/dose blistr powdr for inhalation (Advair Diskus) furosemide 20 mg tablet 20 mg PO QAM 03/07/22 07/26/23 03/07/22 iron,carbonyl 65 mg-vitamin C 125 1 tab PO DAILY 03/07/22 07/26/23 03/07/22 mg tablet,delayed release (Vitron-C) apixaban 5 mg tablet (Eliquis) 5 mg PO BID #60 tabs 01/03/23 07/26/23 Unknown clopidogrel 75 mg tablet 75 mg PO QAM #30 tabs 01/03/23 07/26/23 Unknown acetaminophen 325 mg tablet 650 mg PO Q6H PRN Pain 07/26/23 07/26/23 Unknown (Tylenol) gabapentin 300 mg capsule 300 mg PO TID 07/26/23 07/26/23 Unknown lasmiditan 50 mg tablet (Reyvow) 50 mg PO DIRECTED PRN Migraine 07/26/23 07/26/23 Unknown Headache lidocaine 5 % topical patch 1 patch topical DAILY 07/26/23 07/26/23 Unknown tramadol 50 mg tablet 50 mg PO BID PRN Pain 07/26/23 07/26/23 Unknown Active Medications Generic Name Dose Route Start Last Admin Trade Name Freq PRN Reason Stop Dose Admin Ascorbic Acid 250 mg 07/26/23 09:00 07/27/23 08:48 Ascorbic Acid 500 Mg Tab PO 08/25/23 08:59 Not Given DAILY TRACI Atorvastatin Calcium 20 mg 07/26/23 09:00 07/27/23 08:48 Atorvastatin 20 Mg Tab PO 08/25/23 08:59 Not Given DAILY TRACI Clopidogrel Bisulfate 75 mg 07/26/23 09:00 07/26/23 10:46 Clopidogrel Bisulfate 75 Mg Tab PO 08/25/23 08:59 75 mg QAM TRACI Administration Ferrous Sulfate 325 mg 07/26/23 09:00 07/27/23 08:48 Ferrous Sulfate 325 Mg Tab PO 08/25/23 08:59 Not Given DAILY TRACI Fluticasone/Vilanterol 1 puffs 07/26/23 09:00 07/27/23 08:48 Fluticasone/Vilanterol 100/25mcg 14 Puffs/Inhaler INH 08/25/23 08:59 1 puffs DAILY TRACI Administration Gabapentin 300 mg 07/26/23 09:00 07/26/23 15:41 Gabapentin 300 Mg Cap PO 08/25/23 08:59 300 mg TID TRACI Administration Piperacillin Sod/Tazobactam 100 mls @ 25 mls/hr 07/26/23 21:00 07/27/23 11:32 Sod 4.5 gm/ Dextrose IV 07/28/23 20:59 Infused Q8H TRACI Infusion Protocol Vancomycin HCl 1,000 mg/ 270 mls @ 200 mls/hr 07/27/23 12:00 07/27/23 11:32 Sodium Chloride IV 07/29/23 11:59 200 mls/hr Q24H TRACI Administration Dextrose/Sodium Chloride 1,000 mls @ 100 mls/hr 07/27/23 03:45 07/27/23 09:00 D5w And Nss IV 08/26/23 03:44 50 mls/hr .Q10H TRACI Infusion Norepinephrine Bitartrate 4 mg in 250 mls @ 23.074 mls/hr 07/27/23 05:45 1 09/27/22 10:18 Levophed/D5w IV 08/26/23 05:44 0.07 mcg/kg/min .[id number] TRACI 23.1 mls/hr Titration Protocol 0.07 MCG/KG/MIN Ipratropium Rudy 0.5 mg 07/26/23 11:00 07/27/23 11:04 Ipratropium Rudy Neb Soln 0.02% 2.5 Ml Vial INH 08/25/23 10:59 0.5 mg QIDR TRACI Administration Levalbuterol HCl 1.25 mg 07/26/23 11:00 07/27/23 11:04 Levalbuterol 1.25 Mg/3 Ml Neb NEB 08/25/23 10:59 1.25 mg QIDR TRACI Administration Levothyroxine Sodium 50 mcg 07/26/23 07:55 07/27/23 08:19 Levothyroxine Sodium 50 Mcg Tablet PO 08/25/23 07:54 Not Given DAILYBB TRACI Lidocaine 1 patch 07/26/23 09:00 07/27/23 08:48 Lidocaine 5% 1 Patch TD 08/25/23 08:59 1 patch DAILY TRACI Administration Miconazole Nitrate 1 appln 07/27/23 09:15 07/27/23 10:39 Miconazole Nitrate 2% Cr 30 Gm Tube EXT 08/26/23 09:14 1 appln BID TRACI Administration Miscellaneous 1 each 07/26/23 21:00 07/26/23 21:13 Remove Lidoderm Patch N/A 08/25/23 20:59 1 each DAILY@2100 TRACI Administration Montelukast Sodium 10 mg 07/26/23 21:00 07/26/23 21:13 Montelukast Sodium 10 Mg Tablet PO 08/25/23 20:59 10 mg HS TRACI Administration Pantoprazole Sodium 40 mg 07/26/23 09:00 07/27/23 08:48 Pantoprazole 40 Mg Tab PO 08/25/23 08:59 Not Given DAILY TRACI Tramadol HCl 50 mg 07/26/23 07:55 07/27/23 02:46 Tramadol Hcl 50 Mg Tablet PO 08/25/23 07:54 50 mg BID PRN Administration Pain
[2023-07-27] MEDS: LEVALBUTEROL 1.25 MG/3 ML NEB NEB SCH ×4 (07:58→20:15)
[2023-07-27] MEDS: IPRATROPIUM BROMIDE NEB SOLN 0.02% 2.5 ML VIAL INH SCH ×4 (07:58→20:15)
--- NOTE | 2023-07-27 08:14 | XRay Report ---
XR chest 1V portable HISTORY: Post central line insertion COMPARISON: Chest 07/26/2023. FINDINGS: Right jugular central venous catheter terminates at the expected location of the SVC. No pn eumothorax. The heart remains enlarged. There is chronic elevation of the right hemidiaphragm. Bibasi lar linear densities persist and favor subsegmental atelectasis. No evidence for pulmonary edema. No new focal lung consolidations. Advanced degenerative changes within the shoulders. IMPRESSION: Right jugular central venous catheter terminates at the SVC. No pneumothorax. ACT 112: Negative or not required by law. Electronically signed by: Clyde Jensen M.D. 07/27/2023 8:13 AM
[2023-07-27] MEDS: LEVOTHYROXINE SODIUM 50 MCG TABLET PO SCH (08:19)
--- NOTE | 2023-07-27 08:23 | Communication Note ---
Date of Service: July 27, 2023 Patient was having hypotension. Didn't improved with fluids. Transferred to ICU. Blood cultures Gm negative bacilli. E.Coli detected. On iv Zosyn and Van ce.Lactic acid 2.1 . repeat normalized. Started on pressors in ICU.. Replaced Magnesium.
[2023-07-27] MEDS: PIPERACILLIN/TAZOBACTAM 4.5 GM in DEXTROSE 5% MINI-B 100 ML IV SCH ×3 (08:25→22:41)
[2023-07-27] MEDS: FLUTICASONE/VILANTEROL 100/25MCG 14 PUFFS/INHALER INH SCH (08:48)
[2023-07-27] MEDS: ATORVASTATIN 20 MG TAB PO SCH (08:48)
[2023-07-27] MEDS: ASCORBIC ACID 500 MG TAB PO SCH (08:48)
[2023-07-27] MEDS: PANTOprazole 40 MG TAB PO SCH (08:48)
[2023-07-27] MEDS: FERROUS SULFATE 325 MG TAB PO SCH (08:48)
[2023-07-27] MEDS: LIDOCAINE 5% 1 PATCH TD SCH (08:48)
[2023-07-27] MEDS ORDERED: DOXYCYCLINE HYCLATE 100 MG in DEXTROSE 5% MINI-B 100 ML IV SCH (09:00)
--- NOTE | 2023-07-27 09:44 | Cardiology Progress Note ---
Date of Service July 27, 2023 Assessment & Plan (1) Septic shock: (2) Left ventricular systolic dysfunction: (3) PAF (paroxysmal atrial fibrillation): Plan -cardiac catheterization 07/26/23 via the right common femoral artery approach with minimal nonobstructive CAD. H/o of past difficult right radial access due to spasm. Left radial access on 07/26 unsuccessful as unable to advance catheter beyond forearm per procedure note. -New moderate LV systolic dysfunction ,compared to prior echo in December in setting of chronic LBBB. Question if sepsis induced. -2/2 Blood cultures have yielded gram negative bacilli. H/o E. coli in urine in Dec, 2022. UA abnormal on a chronic basis. -Anticoagulation and clopidogrel on hold due to thrombocytopenia, platelet count 66K this am. -continue atorvastatin. -Beta hayden on hold due to hypotension. Continue norepinephrine infusion, antibiotics. I/ O + 5.7 liters in last 24 hours. Consider SCDs for DVT prophylaxis. Admission and Anticipated Discharge Date Admission Date: July 26, 2023 Subjective Patient seen in cardiology follow up. Patient resting comfortably while assessed. She is on norepinephrine 0.07 mcg/kg/min. Telemetry reveals SR in the 70s with chronic LBBB. Physical Exam Physical Exam: Temp Pulse Resp BP Pulse Ox O2 Del Method O2 Flow Rate 37.4 C 83 19 109/55 L 97 Nasal Cannula 2 07/27/23 02:44 07/27/23 09:01 07/27/23 09:01 07/27/23 09:01 07/27/23 09:01 07/27/23 09:01 07/27/23 09:01 FiO2 40 07/26/23 10:08 General: Ill appearing Skin: Diffuse healing ecchymosis in all extremities HENT: Normocephalic. Atraumatic. Eyes: PER. Conjunctiva pink, sclera pale. Neck: No overt JVD. Bilateral carotid bruits. Heart: Regular rhythm. Grade II/ systolic ejection murmur. No diastolic murmur. No rub. Chest: No rash. Reproducible chest wall/rib discomfort with palpation. Lungs: Diminished. Decreased. + Expiratory wheeze. Abdomen: +BS. Soft. Nontender. No masses or organomegaly. Extremities: No clubbing, cyanosis, or edema. 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 Results & Data Laboratory Results Cardiac Enzymes 07/26/23 07/26/23 07/26/23 Range/Units 09:39 13:21 23:05 AST (13-39) U/L Troponin I High Sens 1409.6 H* D 1472.0 H* 2084.8 H* D (0-14) pg/ml 07/27/23 Range/Units 02:43 AST 31 (13-39) U/L Troponin I High Sens 1962.1 H* (0-14) pg/ml CBC 07/26/23 07/27/23 Range/Units 09:39 02:43 WBC 13.49 H 13.85 H (4.8-10.8) K/ul RBC 2.71 L 2.50 L (4.20-5.40) M/uL Hgb 9.8 L 9.0 L (12.0-16.0) g/dl Hct 30.9 L 28.3 L (37.0-47.0) % Plt Count 91 L 66 L (130-400) K/uL Neut # (Auto) 12.63 H 12.69 H (1.40-6.50) K/uL Lymph # (Auto) 0.35 L 0.39 L (1.20-3.40) K/uL [place] # (Auto) 0.34 0.33 (0.11-0.59) K/uL Eos # (Auto) 0.01 0.01 (0.00-0.50) K/uL Baso # (Auto) 0.03 0.06 (0.00-0.20) K/uL Comprehensive Metabolic Panel 07/26/23 07/26/23 07/27/23 Range/Units 09:39 15:08 02:43 Sodium 142 140 139 (136-145) mmol/L Potassium 3.3 L D 3.7 4.4 (3.5-5.1) mmol/L Chloride 106 105 105 (98-107) mmol/L Carbon Dioxide 31 28 27 (21-32) mmol/L BUN 21 24 H 26 H (6-23) mg/dl Creatinine 1.26 H 1.26 H 1.39 H (0.6-1.2) mg/dl Glucose 95 88 65 L (70-99(Fasting)) mg/dl Calcium 8.1 L 8.0 L 7.6 L (8.6-10.3) mg/dl AST 31 (13-39) U/L ALT 10 (7-52) U/L Alkaline Phosphatase 72 (34-104) U/L Total Protein 5.2 L (6.0-8.3) gm/dl Albumin 2.8 L (3.4-5.0) gm/dl Intake and Output 07/26/23 07/27/23 07/27/23 22:59 06:59 14:59 Intake Total 1994.151 / 3730.151 1635 / 3730.151 2219.711 / 2219.711 Output Total 51 / 52 50 / 50 Balance 1993.151 / 3678.151 1584 / 3678.151 2169.711 / 2169.711 Intake: IV 1895.151 / 3630.151 1635 / 3630.151 2219.711 / 2219.711 Albumin 5% 250 ml @ 500 mls/hr 250 / 250 IV ONE ONE Rx#:[id number] D5w and Nss 1,000 ml @ 100 mls/ 448.333 / 448.333 hr IV .Q10H [facility]ACI Rx#:[id number] Doxycycline Hyclate 100 mg In 100 / 100 Dextrose 5% Mini-B 100 ml @ 50 mls/hr IV NOW STA Rx#:[id number] Heparin Sodium/Dextrose 25,000 191.817 / 191.817 units In 500 ml @ 850 UNITS/HR 17 mls/hr IV .Q24H [facility]I Rx#: [id number] Lactated Ringer's 1,000 ml @ 706.667 / 706.667 908.333 / 908.333 100 mls/hr IV .Q10H [facility]I Rx#: [id number] Magnesium Sulfate / D5w 1 gm In 100 / 100 100 ml @ 50 mls/hr IV Q2H [facility] Rx#:[id number] Norepinephrine/D5w 4 mg In 250 23.045 / 23.045 ml @ 0.09 MCG/KG/MIN 29.666 mls /hr IV .Q8H26M [facility] Rx#:[id number] Piperacillin/Tazobactam 4.5 gm 100 / 200 100 / 200 In Dextrose 5% Mini-B 100 ml @ 25 mls/hr IV Q8H [facility] Rx#: [id number] Potassium Chloride / Wtr 10 meq 396.667 / 396.667 In 100 ml @ 100 mls/hr IV Q1H [facility] Rx#:[id number] Sodium Chloride 0.9% 1,000 ml @ 1000 / 1000 390 / 390 100 mls/hr IV .Q10H [facility] Rx#: [id number] Sodium Chloride 0.9% 500 ml @ 500 / 500 500 mls/hr IV .Q1H [facility] Rx#: [id number] Vancomycin HCl 1,750 mg In 535 / 535 Sodium Chloride 0.9% 500 ml @ 200 mls/hr IV ONE ONE Rx#: [id number] Oral 100 / 100 Output: Urine Amount (Catheter) 50 / 50 50 / 50 3-way Urethral 50 / 50 [place]/Indwelling 50 / 50 # Bowel Movements 1 / 2 1 / 2 Other: # Unmeasured Voids 1 Weight 89 kg Weight Measurement Method Built in [facility]
--- NOTE | 2023-07-27 09:46 | Procedure Note ---
Procedure Note Date of Service July 27, 2023 Note Procedure: Diagnostic and therapeutic ultrasound-guided catheter thoracentesis Rig Manager: Dr. Valdez Ta Indication: Pleural effusion Consent: Signed by patient and verified with timeout prior to procedure Anesthesia: 8 mL's of 1% lidocaine without epinephrine given locally Procedure: Consent was verified and timeout performed. Appropriate imaging studies were reviewed prior to the procedure. Patient was placed in a semi-recumbent] and limited thoracic ultrasound was performed of the left chest. See separate imaging. The site appropriate for thoracentesis was selected. The skin was prepped and draped in normal sterile fashion. Lidocaine was used for local analgesia. Fluid was aspirated via the finder needle. A small skin erich was made with the scalpel and the catheter over the needle apparatus was advanced over the rib into the pleural space. Using the syringe one-way valve system, a total of 500 mL's of stefani color fluid was removed. Procedure was terminated due to lack of flow. The catheter was removed and observed to be intact. A sterile dressing was applied. Post procedure chest x-ray was ordered. Fluid was sent for LDH, total protein, cell count, glucose, pH, cytology, AFB cultures, gram stain and culture and fungal cultures. The patient tolerated the procedure well without obvious complication. Coding CPT Codes Pulmonary/Thoracic - Pulmonary and Thoracic: 07743 Thoracentesis w imaging ([id number]) [facility] [place] Procedure Codes (Charges) Pulmonary/Thoracic Procedure 1: Pulmonary and Thoracic: 08009 Thoracentesis w imaging
[2023-07-27] MEDS: MICONAZOLE NITRATE 2% CR 30 GM TUBE EXT SCH ×2 (10:39→22:40)
[2023-07-27 11:10] LABS: iSTAT Allen Test Pass; iSTAT Art Bld Gas pCO2 Correct 43 mmHg (35-46); iSTAT Art Bld Gas pH Corrected 7.374 (7.35-7.45); iSTAT Arterial Blood Gas HCO3 25 meg/L (19-24); iSTAT Arterial Blood Gas pCO2 43 mmHg (35-46); iSTAT Arterial Blood Gas pH 7.37 (7.35-7.45); iSTAT Arterial Blood Gas pO2 115 mmHg (80-95); iSTAT Arterial Blood Gas pO2 C 114; iSTAT Carbon Dioxide 26 mmol/L (24-31); iSTAT Hematocrit 23 % (37-47); iSTAT Hemoglobin 7.8 g/dl (12.0-16.0); iSTAT Potassium 3.8 mmol/L (3.3-5.0); iSTAT Site R Brachial; iSTAT Sodium 138 mmol/L (135-144)
[2023-07-27] MEDS ORDERED: VANCOMYCIN HCL 1,000 MG in SODIUM CHLORIDE 0.9% 250 ML IV SCH (12:00)
[2023-07-27 16:42] LABS: BUN Creatinine Ratio 21.9 (10-20); Calcium 6.9 mg/dl (8.6-10.3); Est GFR (African American) 45.4 ml/min; Est GFR (Non-African American) 39.2 ml/min; Potassium 3.7 mmol/L (3.5-5.1)
[2023-07-27] MEDS: MONTELUKAST SODIUM 10 MG TABLET PO SCH (22:56)
[2023-07-28] MEDS: D5W AND NSS 1,000 ML IV SCH ×2 (00:27→08:03)
[2023-07-28] MEDS: PIPERACILLIN/TAZOBACTAM 4.5 GM in DEXTROSE 5% MINI-B 100 ML IV SCH (05:22)
[2023-07-28 05:39] LABS: Calcium 6.9 mg/dl (8.6-10.3); Est GFR (African American) 52.8 ml/min; Est GFR (Non-African American) 45.5 ml/min; Magnesium 1.9 mg/dl (1.7-2.4); Phosphorus 2.7 mg/dl (2.5-4.9); Potassium 3.5 mmol/L (3.5-5.1)
[2023-07-28 05:58] LABS: Ferritin 161.7 ng/ml (8-388)
[2023-07-28 06:02] LABS: Folate (Folic Acid),Ser orPlas 8.82 ng/ml (>5.38)
[2023-07-28 06:56] LABS: Hematocrit (blood only) 21.2 % (37.0-47.0); Mean Corpuscular Hemoglobin 36.1 pg (25.0-34.0); Mean Corpuscular Volume 109.3 fL (80.0-100.0); Mean Platelet Volume 11.9 fL (9.4-12.4); Platelet Count 55 K/uL (130-400); RDW Coefficient of Variation 14.5 % (11.5-14.5); RDW Standard Deviation 57.2 fL (36.4-46.3); Red Blood Count 1.94 M/uL (4.20-5.40); White Blood Count 12.51 K/ul (4.8-10.8)
[2023-07-28 06:57] LABS: Basophils # (auto) 0.03 K/uL (0.00-0.20); Basophils % (auto) 0.2 %; Dohle Bodies 1+; Eosinophils # (auto) 0.13 K/uL (0.00-0.50); Immature Granulocytes # (auto) 0.61 K/uL (0.01-0.20); Immature Granulocytes % (auto) 4.9 %; Lymphocytes # (auto) 0.43 K/uL (1.20-3.40); Lymphocytes % (auto) 3.4 %; Monocytes # (auto) 0.55 K/uL (0.11-0.59); Monocytes % (auto) 4.4 %; Neutrophils # (auto) 10.76 K/uL (1.40-6.50); Neutrophils % (auto) 86.1 %; Polychromasia 1+
--- NOTE | 2023-07-28 06:59 | Hospitalist Progress Note ---
Date of Service July 28, 2023 Assessment & Plan (1) Chest pain: Plan: Ms Breaxu is an 83-year-old female with past med history significant for hyperlipidemia, hypothyroidism, asthma mild persistent, uses oxygen 2 L in the nighttime and as needed during daytime, chronic right-sided heart failure, history of CAD, hypertension, long QT interval, history of A-fib, irritable bowel syndrome, GERD, B12 deficiency, CKD stage III, migraines, history of DVT and PE, history of depression, history of CVA, currently wheelchair-bound who was admitted 07/27 for chest pain and concerns for NSTEMI. Patient became progressively more ill appearing and hypotensive prompting infectious workup and empiric antibiotic coverage in the afternoon of 07/27. Patient went to laboratory technologist, where it was revealed that patient had very minimal nonobstructive coronary artery disease. Course complicated by hypotension refractory to fluid resuscitation prompting transfer to ICU for pressor support. After 24 hours of pressor support, patient successfully weaned from NE. Notable improvement of mentation the morning of 07/28. Patient cleared for transfer to step down. #Acute on Chronic anemia, hemolysis iso sepsis v blood loss *stable #Acute Thrombocytopenia #Chronic macrocytic anemia #Prior DVT/PE #Right inguinal hematoma -Likely iso sepsis -Hgb stable: CT AP with extraperitoneal hematoma 3cm -Trend CBC, plan for peripheral smear if not resolving after empiric treatment for infection -Hold plavix -Hold anticoagulation for now, resume Eliquis when able -Transfuse for hgb <7 -Baseline folate/b12/iron studies: Iron deficiency, B12/Folate wnl -Notable drop in Hgb, Hemolysis labs ordered: haptoglobin, ldh, t bili, peripheral smear pending -T bili 1.0; LDH 181 less likely active hemolysis -HIT labs pending -Continue home supplementation -Monitor hematoma site for signs of hemorrhage #Acute Toxic metabolic encephalopathy *improving #Prior CVA c/b right side hemiparesis Reportedly obtunded overnight, CT head negative ABG not hypercarbic, likely secondary to infectious process/septic shock Delirium precautions Manage contributing factors as below Continue statin, resume plavix when thrombocytopenia improves for 2/2 prevention #Septic Shock, 2/2 GNB bacteremia- E coli c/f urinary source #Acute complicated pyelonephritis -CT AP with bilateral perinephric edema -Initial admission eval for ACS r/o, patient appeared progressively more ill throughout course of admission -Blood cultures 2/2 +GNB bacteremia 07/26 2/2 GNB, E coli pansusceptible 07/27 pending -Denied constitutional symptoms outside of general fatigue, reported symptom was mid-sternal, atypical chest pain -Infectious work up pending, plan for ID consult once organism results for ABX recommendations/duration -Weaned off pressors, transfer from ICU #NSTEMI, likely demand type II in setting of sepsis *downtrending #Acute heart failure with reduced ejection fraction, 2/2 stress induced cardiomyopathy #Chronic Right Heart Failure #Mild nonobstructive CAD #LBBB #Prolonged QT Troponin Peaked 2097, ECHO with septal wall motion, global hypokinesis of LV EKG shows left bundle branch block and wide QRS rhythm. Left bundle marlene block seems to be old s/p [facility] 07/26, no obstructive lesions contributing to presentation Hold lasix at this time given sepsis, monitor fluid status, strict IOs daily weights Hold antihypertensives at this time, including home coreg Cardiology on consult, appreciate recommendations Avoid QT prolongating agents Started on Metoprolol in interim given ongoing tachycardia #Paroxysmal Atrial Fibrillation -Discontinue heparin -Resume Eliquis when thrombocytopenia improves -Cardiology on consult -Started on metoprolol 12.5 QID given ongoing sinus tachycardia and history of a fib #Acute on chronic hypoxic respiratory failure, iso sepsis and bilateral pleural effusions #Nocturnal Hypoxia #COPD/Asthma -Wears 2L qhs O2, uses prn - No wheezing, does not appear to be in exacerbation Continue montelukast Continue home inhalers Nebs ATC and as needed ABG with good oxygenation, no significant retention of CO2 Monitor fluid status as able, diuersis when stable from sepsis standpoint #XIN on CKD stage IIIa*improving #Acute pyelonephritis Recent GFR 55-56 2022, Cr baseline ~1 Now 1.39, likely iso sepsis/hypotension Will follow labs, keep maps >65 Strict I/OS #Chronic hip pain 2/2 bilateral greater trochanteric bursitis -Received steroid injections with Rheum 05/28/2023 -Nonsedating, delirium inducing pain management at this time -CTM, tylenol prn #Hypothyroidism TSH wnl on admission On Synthyroid #Migraines Will monitor DVT prophylaxis: SCDs for now Dispo: transfer to PCU given resolution of pressor requirement, but close monitoring given ongoing bacteremia/sepsis Admission and Anticipated Discharge Date Admission Date: July 26, 2023 Subjective NAEO, weaned off of pressors Mentation much better this am; communicative and smiling Denies any acute symptoms this morning outside of mild RLQ/groin discomfort Physical Exam Constitutional: WD/WN, vitals as above Cardiovascular: tachycardic, regular Gastrointestinal (Abdomen): soft NTND in general abdomen, some minor discomfort under pannus to RLQ/inguinal area at site of cath, slight formation of ecchymosis Results & Data Results & Data Vital Signs (Past 12 Hours) Vital Signs Temp Pulse Pulse Resp BP Pulse Ox O2 Del Method 07/28/23 06:45 82 20 100 07/28/23 04:00 120/67 07/28/23 04:00 81 20 97 07/28/23 03:31 79 20 98 07/28/23 03:31 119/46 L 07/28/23 03:30 77 20 98 07/28/23 03:00 36.6 C 106/71 07/28/23 03:00 79 20 96 Nasal Cannula 07/28/23 02:30 79 20 97 07/28/23 02:30 120/52 L 07/28/23 02:00 110/65 07/28/23 02:00 78 20 96 07/28/23 01:30 79 21 99 07/28/23 01:30 111/52 L 07/28/23 01:00 113/56 L 07/28/23 01:00 80 19 98 07/28/23 00:30 111/60 07/28/23 00:30 79 19 98 07/28/23 00:00 37.0 C 80 25 H 99 07/28/23 00:00 129/67 07/28/23 00:00 76 07/27/23 23:30 85 18 98 07/27/23 23:30 129/74 07/27/23 23:00 121/65 07/27/23 23:00 83 20 98 07/27/23 22:30 121/62 07/27/23 22:30 76 18 97 07/27/23 22:00 115/64 07/27/23 22:00 77 19 98 07/27/23 21:30 115/64 07/27/23 21:30 77 17 98 07/27/23 21:00 121/70 07/27/23 21:00 77 21 97 07/27/23 20:39 110/58 L 07/27/23 20:39 82 34 H 98 07/27/23 20:30 77 20 93 07/27/23 20:19 73 16 99 Nasal Cannula 07/27/23 20:00 105/61 07/27/23 20:00 79 22 97 07/27/23 19:30 Nasal Cannula 07/27/23 19:30 110/67 07/27/23 19:30 78 29 H 99 O2 Flow Rate 07/28/23 06:45 07/28/23 04:00 07/28/23 04:00 07/28/23 03:31 07/28/23 03:31 07/28/23 03:30 07/28/23 03:00 07/28/23 03:00 2 07/28/23 02:30 07/28/23 02:30 07/28/23 02:00 07/28/23 02:00 07/28/23 01:30 07/28/23 01:30 07/28/23 01:00 07/28/23 01:00 07/28/23 00:30 07/28/23 00:30 07/28/23 00:00 07/28/23 00:00 07/28/23 00:00 07/27/23 23:30 07/27/23 23:30 07/27/23 23:00 07/27/23 23:00 07/27/23 22:30 07/27/23 22:30 07/27/23 22:00 07/27/23 22:00 07/27/23 21:30 07/27/23 21:30 07/27/23 21:00 07/27/23 21:00 07/27/23 20:39 07/27/23 20:39 07/27/23 20:30 07/27/23 20:19 2 07/27/23 20:00 07/27/23 20:00 07/27/23 19:30 2 07/27/23 19:30 07/27/23 19:30 Laboratory Results Short CBC 07/28/23 Range/Units 04:23 WBC 12.51 H (4.8-10.8) K/ul Hgb 7.0 L (12.0-16.0) g/dl Hct 21.2 L (37.0-47.0) % Plt Count 55 L (130-400) K/uL BMP 07/27/23 07/28/23 16:02 04:23 Sodium 138 138 Potassium 3.7 3.5 Chloride 106 107 Carbon Dioxide 26 26 BUN 28 H 26 H Creatinine 1.28 H 1.13 Glucose 113 H 89 Calcium 6.9 L 6.9 L Medications Administered Home Medications Medication Instructions Recorded Confirmed Last Taken albuterol sulfate 90 mcg/actuation 2 puff inhalation Q4 PRN Shortness 11/10/18 07/26/23 07/26/19 19:30 aerosol inhaler (Ventolin HFA) Of Breath Or Wheezing carvedilol 12.5 mg tablet 12.5 mg PO BID 11/10/18 07/26/23 03/07/22 08:00 montelukast 10 mg tablet 10 mg PO HS 11/10/18 07/26/23 03/06/22 pantoprazole 40 mg tablet,delayed 40 mg PO DAILY 07/22/19 07/26/23 03/07/22 release atorvastatin 20 mg tablet 20 mg PO DAILY 10/11/19 07/26/23 03/07/22 levothyroxine 50 mcg tablet 50 mcg PO DAILYBB 01/15/20 07/26/23 03/07/22 albuterol sulfate 2.5 mg/3 mL 2.5 mg inhalation Q4H PRN Wheezing 01/06/21 07/26/23 Unknown (0.083 %) solution for nebulization cholecalciferol (vitamin D3) 25 25 mcg PO DAILY 01/06/21 07/26/23 03/07/22 mcg (1,000 unit) capsule duloxetine 60 mg capsule,delayed 60 mg PO BID 03/07/22 07/26/23 03/07/22 release fluticasone 100 mcg-salmeterol 50 1 inh inhalation BID 03/07/22 07/26/23 03/07/22 08:00 mcg/dose blistr powdr for inhalation (Advair Diskus) furosemide 20 mg tablet 20 mg PO QAM 03/07/22 07/26/23 03/07/22 iron,carbonyl 65 mg-vitamin C 125 1 tab PO DAILY 03/07/22 07/26/2322 mg tablet,delayed release (Vitron-C) apixaban 5 mg tablet (Eliquis) 5 mg PO BID #60 tabs 01/03/23 07/26/23 Unknown clopidogrel 75 mg tablet 75 mg PO QAM #30 tabs 01/03/23 07/26/23 Unknown acetaminophen 325 mg tablet 650 mg PO Q6H PRN Pain 07/26/23 07/26/23 Unknown (Tylenol) gabapentin 300 mg capsule 300 mg PO TID 07/26/23 07/26/23 Unknown lasmiditan 50 mg tablet (Reyvow) 50 mg PO DIRECTED PRN Migraine 07/26/23 07/26/23 Unknown Headache lidocaine 5 % topical patch 1 patch topical DAILY 07/26/23 07/26/23 Unknown tramadol 50 mg tablet 50 mg PO BID PRN Pain 07/26/23 07/26/23 Unknown Active Medications Generic Name Dose Route Start Last Admin Trade Name Freq PRN Reason Stop Dose Admin Ascorbic Acid 250 mg 07/26/23 09:00 07/27/23 08:48 Ascorbic Acid 500 Mg Tab PO 08/25/23 08:59 Not Given DAILY TRACI Atorvastatin Calcium 20 mg 07/26/23 09:00 07/27/23 08:48 Atorvastatin 20 Mg Tab PO 08/25/23 08:59 Not Given DAILY TRACI Clopidogrel Bisulfate 75 mg 07/26/23 09:00 07/26/23 10:46 Clopidogrel Bisulfate 75 Mg Tab PO 08/25/23 08:59 75 mg QAM TRACI Administration Ferrous Sulfate 325 mg 07/26/23 09:00 07/27/23 08:48 Ferrous Sulfate 325 Mg Tab PO 08/25/23 08:59 Not Given DAILY TRACI Fluticasone/Vilanterol 1 puffs 07/26/23 09:00 07/27/23 08:48 Fluticasone/Vilanterol 100/25mcg 14 Puffs/Inhaler INH 08/25/23 08:59 1 puffs DAILY TRACI Administration Gabapentin 300 mg 07/26/23 09:00 07/26/23 15:41 Gabapentin 300 Mg Cap PO 08/25/23 08:59 300 mg TID TRACI Administration Piperacillin Sod/Tazobactam 100 mls @ 25 mls/hr 07/26/23 21:00 07/28/23 05:22 Sod 4.5 gm/ Dextrose IV 07/28/23 20:59 25 mls/hr Q8H TRACI Administration Protocol Vancomycin HCl 1,000 mg/ 270 mls @ 200 mls/hr 07/27/23 12:00 07/27/23 13:26 Sodium Chloride IV 07/29/23 11:59 Infused Q24H TRACI Infusion Dextrose/Sodium Chloride 1,000 mls @ 100 mls/hr 07/27/23 03:45 07/28/23 00:27 D5w And Nss IV 08/26/23 03:44 50 mls/hr .Q10H TRACI Administration Norepinephrine Bitartrate 4 mg in 250 mls @ 0 mls/hr 07/27/23 05:45 07/27/23 17:08 Levophed/D5w IV 08/26/23 05:44 Not Given .Q0M TRACI Protocol 0 MCG/KG/MIN Ipratropium [place] 0.5 mg 07/26/23 11:00 07/27/23 20:15 Ipratropium [place] Neb Soln 0.02% 2.5 Ml Vial INH 08/25/23 10:59 0.5 mg QIDR TRACI Administration Levalbuterol HCl 1.25 mg 07/26/23 11:00 07/27/23 20:15 Levalbuterol 1.25 Mg/3 Ml Neb NEB 08/25/23 10:59 1.25 mg QIDR TRACI Administration Levothyroxine Sodium 50 mcg 07/26/23 07:55 07/27/23 08:19 Levothyroxine Sodium 50 Mcg Tablet PO 08/25/23 07:54 Not Given DAILYBB TRACI Lidocaine 1 patch 07/26/23 09:00 07/27/23 08:48 Lidocaine 5% 1 Patch TD 08/25/23 08:59 1 patch DAILY TRACI Administration Miconazole Nitrate 1 appln 07/27/23 09:15 07/27/23 22:40 Miconazole Nitrate 2% Cr 30 Gm Tube EXT 08/26/23 09:14 1 appln BID TRACI Administration Miscellaneous 1 each 07/26/23 21:00 07/27/23 23:02 Remove Lidoderm Patch N/A 08/25/23 20:59 1 each DAILY@2100 TRACI Administration Montelukast Sodium 10 mg 07/26/23 21:00 07/27/23 22:56 Montelukast Sodium 10 Mg Tablet PO 08/25/23 20:59 10 mg HS TRACI Administration Pantoprazole Sodium 40 mg 07/26/23 09:00 07/27/23 08:48 Pantoprazole 40 Mg Tab PO 08/25/23 08:59 Not Given DAILY TRACI Tramadol HCl 50 mg 07/26/23 07:55 07/27/23 02:46 Tramadol Hcl 50 Mg Tablet PO 08/25/23 07:54 50 mg BID PRN Administration Pain
[2023-07-28 07:45] LABS: Immature Retic Fraction 16.7 % (2.3-15.9); Reticulated Hemoglobin 32.6 pg (28.2-36.6); Reticulocyte % 1.6 % (0.5-2.0); Reticulocytes # 0.03 10^6/uL (0.02-0.10)
[2023-07-28 07:47] LABS: Hematocrit (blood only) 22.4 % (37.0-47.0); Hemoglobin 7.3 g/dl (12.0-16.0); Mean Corpuscular Hemoglobin 36.5 pg (25.0-34.0); Mean Corpuscular Hgb Conc 32.6 g/dL (32.0-36.0); Mean Platelet Volume 11.4 fL (9.4-12.4); Platelet Count 54 K/uL (130-400); RDW Coefficient of Variation 14.5 % (11.5-14.5); RDW Standard Deviation 59.3 fL (36.4-46.3); White Blood Count 12.96 K/ul (4.8-10.8)
[2023-07-28] MEDS: LEVALBUTEROL 1.25 MG/3 ML NEB NEB SCH ×4 (07:47→20:10)
[2023-07-28] MEDS: IPRATROPIUM BROMIDE NEB SOLN 0.02% 2.5 ML VIAL INH SCH ×4 (07:47→20:10)
[2023-07-28] MEDS: FERROUS SULFATE 325 MG TAB PO SCH (08:01)
[2023-07-28] MEDS: FLUTICASONE/VILANTEROL 100/25MCG 14 PUFFS/INHALER INH SCH (08:02)
[2023-07-28] MEDS: ASCORBIC ACID 500 MG TAB PO SCH (08:02)
[2023-07-28] MEDS: ATORVASTATIN 20 MG TAB PO SCH (08:02)
[2023-07-28] MEDS: LEVOTHYROXINE SODIUM 50 MCG TABLET PO SCH (08:02)
[2023-07-28] MEDS: LIDOCAINE 5% 1 PATCH TD SCH (08:02)
[2023-07-28] MEDS: PANTOprazole 40 MG TAB PO SCH (08:03)
[2023-07-28] MEDS: MICONAZOLE NITRATE 2% CR 30 GM TUBE EXT SCH ×2 (08:03→20:50)
[2023-07-28 08:51] LABS: Bilirubin Direct 0.4 mg/dl (0-0.2)
[2023-07-28] MEDS ORDERED: METOPROLOL TARTRATE 25 MG TAB PO ONE (08:58)
--- NOTE | 2023-07-28 09:07 | Cardiology Progress Note ---
Date of Service July 28, 2023 Assessment & Plan (1) Septic shock: (2) Left ventricular systolic dysfunction: (3) PAF (paroxysmal atrial fibrillation): Plan -cardiac catheterization 07/26/23 via the right common femoral artery approach with minimal nonobstructive CAD. H/o of past difficult right radial access due to spasm. Left radial access on 07/26 unsuccessful as unable to advance catheter beyond forearm per procedure note. -New moderate LV systolic dysfunction ,compared to prior echo in December in setting of chronic LBBB. Question if sepsis induced. -2/2 Blood cultures have yielded Sensitive E. coli. -Anticoagulation and clopidogrel on hold due to Anemia and thrombocytopenia, with hemoglobin of 7.3, platelet count 54 K AM of 07/28 -continue atorvastatin. -Resume beta hayden, metoprolol for tachycardia, prevention of AF. Consider SCDs for DVT prophylaxis. Admission and Anticipated Discharge Date Admission Date: July 26, 2023 Subjective Patient more conversant this am. Denies chest pain or shortness of breath. Norepinephrine was weaned on the afternoon of 07/27/2023. Most recent blood pressure 133/63. Telemetry reveals sinus tachycardia with chronic left bundle branch block morphology at 100-106 bpm. Physical Exam Constitutional: + ill appearing; no acute distress Respiratory: Auscultation: + diminished lung sounds (Mildly decreased breath sounds at the bases) Cardiovascular: Rate/Rhythm: regular rhythm and + tachycardic Heart Sounds: + murmur (2/6 systolic murmur) Gastrointestinal (Abdomen): normal bowel sounds, soft, nontender, no hepatosplenomegaly Neurologic: PERRL, EOMI, accommodation nl, no face palsy, no dysarthria Results & Data Vital Signs (Past 12 Hours) Vital Signs Temp Pulse Pulse Resp BP Pulse Ox O2 Del Method 07/28/23 07:47 96 H 20 98 Nasal Cannula 07/28/23 07:42 Nasal Cannula 07/28/23 07:42 36.6 C 07/28/23 07:30 96 H 21 98 07/28/23 07:30 129/83 07/28/23 07:00 125/69 07/28/23 07:00 85 22 100 07/28/23 06:45 82 20 100 07/28/23 04:00 120/67 07/28/23 04:00 81 20 97 07/28/23 03:31 79 20 98 07/28/23 03:31 119/46 L 07/28/23 03:30 77 20 98 07/28/23 03:00 36.6 C 106/71 07/28/23 03:00 79 20 96 Nasal Cannula 07/28/23 02:30 79 20 97 07/28/23 02:30 120/52 L 07/28/23 02:00 110/65 07/28/23 02:00 78 20 96 07/28/23 01:30 79 21 99 07/28/23 01:30 111/52 L 07/28/23 01:00 113/56 L 07/28/23 01:00 80 19 98 07/28/23 00:30 111/60 07/28/23 00:30 79 19 98 07/28/23 00:00 37.0 C 80 25 H 99 07/28/23 00:00 129/67 07/28/23 00:00 76 07/27/23 23:30 85 18 98 07/27/23 23:30 129/74 07/27/23 23:00 121/65 07/27/23 23:00 83 20 98 07/27/23 22:30 121/62 07/27/23 22:30 76 18 97 07/27/23 22:00 115/64 07/27/23 22:00 77 19 98 07/27/23 21:30 115/64 07/27/23 21:30 77 17 98 O2 Flow Rate 07/28/23 07:47 2 07/28/23 07:42 2 07/28/23 07:42 07/28/23 07:30 07/28/23 07:30 07/28/23 07:00 07/28/23 07:00 07/28/23 06:45 07/28/23 04:00 07/28/23 04:00 07/28/23 03:31 07/28/23 03:31 07/28/23 03:30 07/28/23 03:00 07/28/23 03:00 2 07/28/23 02:30 07/28/23 02:30 07/28/23 02:00 07/28/23 02:00 07/28/23 01:30 07/28/23 01:30 07/28/23 01:00 07/28/23 01:00 07/28/23 00:30 07/28/23 00:30 07/28/23 00:00 07/28/23 00:00 07/28/23 00:00 07/27/23 23:30 07/27/23 23:30 07/27/23 23:00 07/27/23 23:00 07/27/23 22:30 07/27/23 22:30 07/27/23 22:00 07/27/23 22:00 07/27/23 21:30 07/27/23 21:30 Laboratory Results Cardiac Enzymes 07/28/23 Range/Units 07:16 Lactate Dehydrogenase 181 (86-244) U/L CBC 07/28/23 07/28/23 Range/Units 04:23 07:16 WBC 12.51 H 12.96 H (4.8-10.8) K/ul RBC 1.94 L 2.00 L (4.20-5.40) M/uL Hgb 7.0 L 7.3 L (12.0-16.0) g/dl Hct 21.2 L 22.4 L (37.0-47.0) % Plt Count 55 L 54 L (130-400) K/uL Neut # (Auto) 10.76 H (1.40-6.50) K/uL Lymph # (Auto) 0.43 L (1.20-3.40) K/uL [place] # (Auto) 0.55 (0.11-0.59) K/uL Eos # (Auto) 0.13 (0.00-0.50) K/uL Baso # (Auto) 0.03 (0.00-0.20) K/uL Comprehensive Metabolic Panel 07/27/23 07/28/23 07/28/23 Range/Units 16:02 04:23 07:16 Sodium 138 138 (136-145) mmol/L Potassium 3.7 3.5 (3.5-5.1) mmol/L Chloride 106 107 (98-107) mmol/L Carbon Dioxide 26 26 (21-32) mmol/L BUN 28 H 26 H (6-23) mg/dl Creatinine 1.28 H 1.13 (0.6-1.2) mg/dl Glucose 113 H 89 (70-99(Fasting)) mg/dl Calcium 6.9 L 6.9 L (8.6-10.3) mg/dl Direct Bilirubin 0.4 H (0-0.2) mg/dl Intake and Output 07/27/23 07/28/23 07/28/23 22:59 06:59 14:59 Intake Total 200.875 / 3985.784 892.5 / 3985.784 240 / 240 Output Total 440 / 880 240 / 880 100 / 100 Balance -239.125 / 3105.784 652.5 / 3105.784 140 / 140 Intake: IV 150.875 / 3915.784 872.5 / 3915.784 D5w and Nss 1,000 ml @ 100 mls/ 772.5 / 1289.166 hr IV .Q10H TRACI Rx#:[id number] Norepinephrine/D5w 4 mg In 250 50.875 / 208.285 ml @ 0 MCG/KG/MIN IV .Q0M TRACI Rx#:[id number] Piperacillin/Tazobactam 4.5 gm 100 / 300 100 / 300 In Dextrose 5% Mini-B 100 ml @ 25 mls/hr IV Q8H TRACI Rx#: [id number] Oral 50 / 70 20 / 70 240 / 240 Output: Urine Amount (Catheter) 440 / 880 240 / 880 100 / 100 [place]/Indwelling 440 / 880 240 / 880 100 / 100 Other: Other Intake Source Water Weight 94.6 kg Weight Measurement Method Built in [facility]
[2023-07-28] MEDS: traMADol HCL 50 MG TABLET PO PRN ×2 (09:19→20:10)
--- NOTE | 2023-07-28 10:57 | Critical Care Progress Note ---
Date of Service July 28, 2023 Assessment & Plan (1) Septic shock: (2) PAF (paroxysmal atrial fibrillation): (3) CAD (coronary artery disease): (4) E coli bacteremia: (5) Hematoma: (6) Anemia: Plan 83-year-old female presented with septic shock secondary to E. coli bacteremia likely complicated urinary source. We are holding anticoagulation and antiplatelets at this time due to anemia and right inguinal hematoma. Hemoglobin remained stable at this time. Will trans fuse if hemoglobin less than 7. Continue antibiotics. De-escalated to ceftriaxone as E. coli is pansensitive. Would recommend a course of 7 to 10 days of antibiotics. Consider restarting antiplatelet therapy in the next 2 to 3 days. Hypotension substantially improved. Low-dose metoprolol restarted by Dr. Vivas given history of A-fib. Patient stable for downgrade to PCU status. Admission and Anticipated Discharge Date Admission Date: July 26, 2023 Subjective Patient is much more awake and alert and oriented today. She denies any significant shortness of breath. She does note some mild pain at the site of her catheterization in the inguinal region. She denies any fevers, chills or night sweats. No nausea. Review of Systems Review of Systems: REVIEW OF SYSTEMS: Constitutional: No fever, sweats or chills Eyes: No diplopia, no worsening or blurred vision ENT: normal hearing, no trouble swallowing Respiratory: (+) dyspnea- improved since admission, No cough, sputum, orthopnea Cardiovascular: No chest pain, tightness or palpitations Abdomen: No pain, nausea, vomiting, diarrhea or constipation Musculoskeletal: No joint pain, calf pain, swelling Neurologic: No weakness, numbness/tingling, or balance problems Skin: + bruising Physical Exam Physical Exam: PHYSICAL EXAM: General: Lethargic, ell appearing Head: Normocephalic, atraumatic ENT: PERRLA, EOMI, no pharyngeal exudate, mucous membranes dry Neuro: No focal deficits. Chest: equal rise and fall of the chest, no accessory muscle use, no heaves or thrills, decreased in bases with fine crackles Cardiac: irregular rate and rhythm, telemetry reviewed- afib, skin warm dry, cap refill <3 seconds, peripheral pulses +2, JVD, no murmur, GI: NABS x 4 quadrants, soft, nontender to palpation, no rebound, guarding or tenderness : [place] to gravity draining light stefani urine Skin: multiple areas of ecchymosis bilaterally, skin tear to left forearm Results & Data Results & Data Vital Signs (Past 12 Hours) Vital Signs Temp Pulse Pulse Resp BP Pulse Ox O2 Del Method 07/28/23 09:30 131/69 07/28/23 09:30 99 H 18 94 07/28/23 09:00 133/63 07/28/23 09:00 104 H 17 96 07/28/23 08:30 123/68 07/28/23 08:30 100 H 22 96 07/28/23 08:00 119/71 07/28/23 08:00 103 H 21 97 07/28/23 07:47 96 H 20 98 Nasal Cannula 07/28/23 07:42 Nasal Cannula 07/28/23 07:42 36.6 C 07/28/23 07:30 96 H 21 98 07/28/23 07:30 129/83 07/28/23 07:00 125/69 07/28/23 07:00 85 22 100 07/28/23 06:45 82 20 100 07/28/23 04:00 120/67 07/28/23 04:00 81 20 97 07/28/23 03:31 79 20 98 07/28/23 03:31 119/46 L 07/28/23 03:30 77 20 98 07/28/23 03:00 36.6 C 106/71 07/28/23 03:00 79 20 96 Nasal Cannula 07/28/23 02:30 79 20 97 07/28/23 02:30 120/52 L 07/28/23 02:00 110/65 07/28/23 02:00 78 20 96 07/28/23 01:30 79 21 99 07/28/23 01:30 111/52 L 07/28/23 01:00 113/56 L 07/28/23 01:00 80 19 98 07/28/23 00:30 111/60 07/28/23 00:30 79 19 98 07/28/23 00:00 37.0 C 80 25 H 99 07/28/23 00:00 129/67 07/28/23 00:00 76 07/27/23 23:30 85 18 98 07/27/23 23:30 129/74 07/27/23 23:00 121/65 07/27/23 23:00 83 20 98 O2 Flow Rate 07/28/23 09:30 07/28/23 09:30 07/28/23 09:00 07/28/23 09:00 07/28/23 08:30 07/28/23 08:30 07/28/23 08:00 07/28/23 08:00 07/28/23 07:47 2 07/28/23 07:42 2 07/28/23 07:42 07/28/23 07:30 07/28/23 07:30 07/28/23 07:00 07/28/23 07:00 07/28/23 06:45 07/28/23 04:00 07/28/23 04:00 07/28/23 03:31 07/28/23 03:31 07/28/23 03:30 07/28/23 03:00 07/28/23 03:00 2 07/28/23 02:30 07/28/23 02:30 07/28/23 02:00 07/28/23 02:00 07/28/23 01:30 07/28/23 01:30 07/28/23 01:00 07/28/23 01:00 07/28/23 00:30 07/28/23 00:30 07/28/23 00:00 07/28/23 00:00 07/28/23 00:00 07/27/23 23:30 07/27/23 23:30 07/27/23 23:00 07/27/23 23:00 Coding Level of Care Code 05293 SUB INP/OBS CARE 2/35MIN Diagnoses Septic shock A41.9; R65.21 PAF (paroxysmal atrial fibrillation) I48.0 CAD (coronary artery disease) I25.10 E coli bacteremia R78.81; B96.20 Hematoma T14.8XXA Anemia D64.9
[2023-07-28] MEDS: cefTRIAXone SODIUM 2,000 MG in DEXTROSE 5 % MINI-B 50 ML IV SCH (11:34)
--- NOTE | 2023-07-28 12:47 | Electrocardiogram Report ---
Test Reason : Blood Pressure : / mmHG Vent. Rate : 104 BPM Atrial Rate : 104 BPM P-R Int : 118 ms QRS Dur : 164 ms QT Int : 434 ms P-R-T Axes : 027 -03 147 degrees QTc Int : 570 ms Sinus tachycardia Left bundle branch block Abnormal ECG When compared with ECG of 27-JUL-2023 05:14, Left bundle branch block has replaced Non-specific intra-ventricular conduction block Criteria for Lateral infarct are no longer Present Minimal criteria for Inferior infarct are no longer Present Confirmed by Aiden Burnett ([id number] on 07/28/2023 12:46:42 PM Referred By: REFERRED SELF Confirmed By:Dawood Burnett
[2023-07-28] MEDS: ACETAMINOPHEN 325 MG TAB PO PRN (15:56)
[2023-07-28 16:06] LABS: Hematocrit (blood only) 21.2 % (37.0-47.0); Hemoglobin 7.2 g/dl (12.0-16.0)
[2023-07-28] MEDS: METOPROLOL TARTRATE 25 MG TAB PO SCH ×2 (17:15→20:10)
[2023-07-28] MEDS: MONTELUKAST SODIUM 10 MG TABLET PO SCH (20:10)
[2023-07-29 04:47] LABS: Hemoglobin 7.8 g/dl (12.0-16.0); Mean Corpuscular Hemoglobin 35.8 pg (25.0-34.0); Mean Corpuscular Hgb Conc 32.5 g/dL (32.0-36.0); Mean Corpuscular Volume 110.1 fL (80.0-100.0); Mean Platelet Volume 11.5 fL (9.4-12.4); Platelet Count 50 K/uL (130-400); RDW Coefficient of Variation 13.8 % (11.5-14.5); RDW Standard Deviation 56.5 fL (36.4-46.3); Red Blood Count 2.18 M/uL (4.20-5.40); White Blood Count 9.71 K/ul (4.8-10.8)
[2023-07-29 05:02] LABS: BUN Creatinine Ratio 18.9 (10-20); Calcium 7.1 mg/dl (8.6-10.3); Creatinine Clr Calc Pharmacy 47.3 ml/min; Est GFR (Non-African American) 49.2 ml/min; Potassium 3.5 mmol/L (3.5-5.1)
[2023-07-29] MEDS: LEVOTHYROXINE SODIUM 50 MCG TABLET PO SCH (06:14)
--- NOTE | 2023-07-29 07:16 | Hospitalist Progress Note ---
Date of Service July 29, 2023 Assessment & Plan (1) Chest pain: Plan: Ms Breaux is an 83-year-old female with past med history significant for hyperlipidemia, hypothyroidism, asthma mild persistent, uses oxygen 2 L in the nighttime and as needed during daytime, chronic right-sided heart failure, history of CAD, hypertension, long QT interval, history of A-fib, irritable bowel syndrome, GERD, B12 deficiency, CKD stage III, migraines, history of DVT and PE, history of depression, history of CVA, currently wheelchair-bound who was admitted 07/27 for chest pain and concerns for NSTEMI. Patient became progressively more ill appearing and hypotensive prompting infectious workup and empiric antibiotic coverage in the afternoon of 07/27. Patient went to quality control lab tech, where it was revealed that patient had very minimal nonobstructive coronary artery disease. Course complicated by hypotension refractory to fluid resuscitation prompting transfer to ICU for pressor support. After 24 hours of pressor support, patient successfully weaned from NE. Notable improvement of mentation the morning of 07/28. Patient cleared for transfer to step down. #Acute on Chronic anemia, hemolysis iso sepsis v blood loss *stable #Acute Thrombocytopenia #Chronic macrocytic anemia #Prior DVT/PE #Right inguinal hematoma -Likely iso sepsis -Hgb stable: CT AP with extraperitoneal hematoma 3cm -Trend CBC, plan for peripheral smear if not resolving after empiric treatment for infection -Hold plavix -Hold anticoagulation for now, resume Eliquis when able -Transfuse for hgb <7 -Baseline folate/b12/iron studies: Iron deficiency, B12/Folate wnl -Notable drop in Hgb, Hemolysis labs ordered: haptoglobin, ldh, t bili, peripheral smear pending -T bili 1.0; LDH 181 less likely active hemolysis -HIT labs pending -Continue home supplementation -Monitor hematoma site for signs of hemorrhage #Acute Toxic metabolic encephalopathy *improving #Prior CVA c/b right side hemiparesis Reportedly obtunded overnight, CT head negative ABG not hypercarbic, likely secondary to infectious process/septic shock Delirium precautions Manage contributing factors as below Continue statin, resume plavix when thrombocytopenia improves for 2/2 prevention #Septic Shock, 2/2 GNB bacteremia- E coli c/f urinary source #Acute complicated pyelonephritis -CT AP with bilateral perinephric edema -Initial admission eval for ACS r/o, patient appeared progressively more ill throughout course of admission -Blood cultures 2/2 +GNB bacteremia 07/26 2/ GNB, E coli pansusceptible 07/27 NGTD -Denied constitutional symptoms outside of general fatigue, reported symptom was mid-sternal, atypical chest pain -Infectious work up: e coli, pansenstive -ID consulted, reviewed note: -Plan for 10-14 day course (currently on day 10/30) - Will plan for midline placement once clear from cardiology standpoint #NSTEMI, likely demand type II in setting of sepsis *downtrending #Acute heart failure with reduced ejection fraction, 2/2 stress induced cardiomyopathy #Chronic Right Heart Failure #Mild nonobstructive CAD #LBBB #Prolonged QT Troponin Peaked 2097, ECHO with septal wall motion, global hypokinesis of LV EKG shows left bundle branch block and wide QRS rhythm. Left bundle marlene block seems to be old s/p LHC 07/26, no obstructive lesions contributing to presentation Hold lasix at this time given sepsis, monitor fluid status, strict IOs daily weights Hold antihypertensives at this time, including home coreg Cardiology on consult, appreciate recommendations Avoid QT prolongating agents Increased metoprolol to 25mg QID Start spironolactone 25mg daily Consider entresto in am Start K supplementation #Paroxysmal Atrial Fibrillation -Discontinue heparin -Resume Eliquis when thrombocytopenia improves -Cardiology on consult -As above #Acute on chronic hypoxic respiratory failure, iso sepsis and bilateral pleural effusions #Nocturnal Hypoxia #COPD/Asthma -Wears 2L qhs O2, uses prn - No wheezing, does not appear to be in exacerbation Continue montelukast Continue home inhalers Nebs ATC and as needed ABG with good oxygenation, no significant retention of CO2 Monitor fluid status as able, diuersis when stable from sepsis standpoint 2 Step prior to dispo #XIN on CKD stage IIIa*improving #Acute pyelonephritis Recent GFR 55-56 2022, Cr baseline ~1 Now 1.39, likely iso sepsis/hypotension Will follow labs, keep maps >65 Strict I/OS #Chronic hip pain 2/2 bilateral greater trochanteric bursitis -Received steroid injections with Rheum 05/28/2023 -Nonsedating, delirium inducing pain management at this time -CTM, tylenol prn #Hypothyroidism TSH wnl on admission On Synthyroid #Migraines Will monitor DVT prophylaxis: SCDs for now Dispo: will dispo home once cardiac medications stable, will need midline Admission and Anticipated Discharge Date Admission Date: July 26, 2023 Subjective NAEO, sitting in bedside chair. pleasant and conversational, notes improvement in general weakness Physical Exam Constitutional: WD/WN, vitals as above Neck: right central in place given poor access will keep until midline secured Results & Data Results & Data Vital Signs (Past 12 Hours) Vital Signs Temp Pulse Pulse Resp BP Pulse Ox O2 Del Method 07/29/23 04:46 36.6 C 07/29/23 04:08 150/84 H 07/29/23 04:08 104 H 26 H 95 07/29/23 00:00 93 H 07/28/23 23:05 36.8 C 07/28/23 23:03 94 H 30 H 94 07/28/23 23:03 139/81 07/28/23 20:10 74 18 98 Nasal Cannula 07/28/23 20:06 119/68 07/28/23 20:06 84 22 99 07/28/23 20:00 Nasal Cannula 07/28/23 19:28 37 C 07/28/23 19:27 90 24 96 Nasal Cannula 07/28/23 19:27 101/65 O2 Flow Rate 07/29/23 04:46 07/29/23 04:08 07/29/23 04:08 07/29/23 00:00 07/28/23 23:05 07/28/23 23:03 07/28/23 23:03 07/28/23 20:10 3 07/28/23 20:06 07/28/23 20:06 07/28/23 20:00 2 07/28/23 19:28 07/28/23 19:27 2 07/28/23 19:27 Laboratory Results Short CBC 07/28/23 07/28/23 07/29/23 Range/Units 07:16 15:50 04:32 WBC 12.96 H 9.71 (4.8-10.8) K/ul Hgb 7.3 L 7.2 L 7.8 L (12.0-16.0) g/dl Hct 22.4 L 21.2 L 24.0 L (37.0-47.0) % Plt Count 54 L 50 L (130-400) K/uL BMP 07/29/23 04:32 Sodium 137 Potassium 3.5 Chloride 107 Carbon Dioxide 25 BUN 20 Creatinine 1.06 Glucose 77 Calcium 7.1 L Liver Function 07/28/23 Range/Units 07:16 Total Bilirubin 1.0 D (0.2-1.0) mg/dl Direct Bilirubin 0.4 H (0-0.2) mg/dl Medications Administered Home Medications Medication Instructions Recorded Confirmed Last Taken albuterol sulfate 90 mcg/actuation 2 puff inhalation Q4 PRN Shortness 11/10/18 07/26/23 07/26/19 19:30 aerosol inhaler (Ventolin HFA) Of Breath Or Wheezing carvedilol 12.5 mg tablet 12.5 mg PO BID 11/10/18 07/26/23 03/07/22 08:00 montelukast 10 mg tablet 10 mg PO HS 11/10/18 07/26/23 03/06/22 pantoprazole 40 mg tablet,delayed 40 mg PO DAILY 07/22/19 07/26/23 03/07/22 release atorvastatin 20 mg tablet 20 mg PO DAILY 10/11/19 07/26/23 03/07/22 levothyroxine 50 mcg tablet 50 mcg PO DAILYBB 01/15/20 07/26/23 03/07/22 albuterol sulfate 2.5 mg/3 mL 2.5 mg inhalation Q4H PRN Wheezing 01/06/21 07/26/23 Unknown (0.083 %) solution for nebulization cholecalciferol (vitamin D3) 25 25 mcg PO DAILY 01/06/21 07/26/23 03/07/22 mcg (1,000 unit) capsule duloxetine 60 mg capsule,delayed 60 mg PO BID 03/07/22 07/26/23 03/07/22 release fluticasone 100 mcg-salmeterol 50 1 inh inhalation BID 03/07/22 07/26/23 03/07/22 08:00 mcg/dose blistr powdr for inhalation (Advair Diskus) furosemide 20 mg tablet 20 mg PO QAM 03/07/22 07/26/23 03/07/22 iron,carbonyl 65 mg-vitamin C 125 1 tab PO DAILY 03/07/22 07/26/23 03/07/22 mg tablet,delayed release (Vitron-C) apixaban 5 mg tablet (Eliquis) 5 mg PO BID #60 tabs 01/03/23 07/26/23 Unknown clopidogrel 75 mg tablet 75 mg PO QAM #30 tabs 01/03/23 07/26/23 Unknown acetaminophen 325 mg tablet 650 mg PO Q6H PRN Pain 07/26/23 07/26/23 Unknown (Tylenol) gabapentin 300 mg capsule 300 mg PO TID 07/26/23 07/26/23 Unknown lasmiditan 50 mg tablet (Reyvow) 50 mg PO DIRECTED PRN Migraine 07/26/23 07/26/23 Unknown Headache lidocaine 5 % topical patch 1 patch topical DAILY 07/26/23 07/26/23 Unknown tramadol 50 mg tablet 50 mg PO BID PRN Pain 07/26/23 07/26/23 Unknown Active Medications Generic Name Dose Route Start Last Admin Trade Name Freq PRN Reason Stop Dose Admin Acetaminophen 650 mg 07/26/23 07:55 07/28/23 15:56 Acetaminophen 325 Mg Tab PO 08/25/23 07:54 650 mg Q4H PRN Administration Pain or Fever Ascorbic Acid 250 mg 07/26/23 09:00 07/28/23 08:02 Ascorbic Acid 500 Mg Tab PO 08/25/23 08:59 250 mg DAILY TRACI Administration Atorvastatin Calcium 20 mg 07/26/23 09:00 07/28/23 08:02 Atorvastatin 20 Mg Tab PO 08/25/23 08:59 20 mg DAILY TRACI Administration Clopidogrel Bisulfate 75 mg 07/26/23 09:00 07/26/23 10:46 Clopidogrel Bisulfate 75 Mg Tab PO 08/25/23 08:59 75 mg QAM TRACI Administration Ferrous Sulfate 325 mg 07/26/23 09:00 07/28/23 08:01 Ferrous Sulfate 325 Mg Tab PO 08/25/23 08:59 325 mg DAILY TRACI Administration Fluticasone/Vilanterol 1 puffs 07/26/23 09:00 07/28/23 08:02 Fluticasone/Vilanterol 100/25mcg 14 Puffs/Inhaler INH 08/25/23 08:59 1 puffs DAILY TRACI Administration Gabapentin 300 mg 07/26/23 09:00 07/26/23 15:41 Gabapentin 300 Mg Cap PO 08/25/23 08:59 300 mg TID TRACI Administration Ceftriaxone Sodium 2,000 mg/ 50 mls @ 100 mls/hr 07/28/23 12:00 07/28/23 12 :13 Dextrose IV 08/11/23 11:59 Infused Q24H TRACI Infusion Ipratropium [place] 0.5 mg 07/26/23 11:00 07/28/23 20:10 Ipratropium [place] Neb Soln 0.02% 2.5 Ml Vial INH 08/25/23 10:59 0.5 mg QIDR TRACI Administration Levalbuterol HCl 1.25 mg 07/26/23 11:00 07/28/23 20:10 Levalbuterol 1.25 Mg/3 Ml Neb NEB 08/25/23 10:59 1.25 mg QIDR TRACI Administration Levothyroxine Sodium 50 mcg 07/26/23 07:55 07/29/23 06:14 Levothyroxine Sodium 50 Mcg Tablet PO 08/25/23 07:54 50 mcg DAILYBB TRACI Administration Lidocaine 1 patch 07/26/23 09:00 07/28/23 08:02 Lidocaine 5% 1 Patch TD 08/25/23 08:59 1 patch DAILY TRACI Administration Miconazole Nitrate 1 appln 07/27/23 09:15 07/28/23 20:50 Miconazole Nitrate 2% Cr 30 Gm Tube EXT 08/26/23 09:14 1 appln BID TRACI Administration Miscellaneous 1 each 07/26/23 21:00 07/28/23 20:50 Remove Lidoderm Patch N/A 08/25/23 20:59 1 each DAILY@2100 TRACI Administration Montelukast Sodium 10 mg 07/26/23 21:00 07/28/23 20:10 Montelukast Sodium 10 Mg Tablet PO 08/25/23 20:59 10 mg HS TRACI Administration Pantoprazole Sodium 40 mg 07/26/23 09:00 07/28/23 08:03 Pantoprazole 40 Mg Tab PO 08/25/23 08:59 40 mg DAILY TRACI Administration Tramadol HCl 50 mg 07/26/23 07:55 07/28/23 20:10 Tramadol Hcl 50 Mg Tablet PO 08/25/23 07:54 50 mg BID PRN Administration Pain
--- NOTE | 2023-07-29 07:16 | Cardiology Progress Note ---
Date of Service July 29, 2023 Assessment & Plan Admission and Anticipated Discharge Date Admission Date: July 26, 2023 Supervising Physician Co-Signing Physician Notes 83 yo woman presenting with * Cardiac Catheterization 07/26/23 via the right common femoral artery - minimal nonobstructive CAD. H/o of past difficult right radial access due to spasm. Left radial access on 07/26 unsuccessful * New moderate LV systolic dysfunction ,compared to prior echo in December in setting of chronic LBBB. Question if sepsis induced. * 2/2 Blood cultures have yielded Sensitive E. coli. * Anticoagulation and clopidogrel on hold due to Anemia and thrombocytopenia, with hemoglobin of 7.3, platelet count 54 K AM of 07/28 Plans: * Recovering * SBP >130 mmHg - OFF Pressors * Continue Lopressor 25 mg po QID * K+ goal 4.5-5 * Consider Kdur 40 meq po BID on 07/29/23 * Mag goal >2 * Wean FIO2 as tolerated * Continue ABX * murmur - reviewed ECHO; Aortic Calcifications noted - no evidence of Severe * LVEF 35% * Start Aldactone 25 mg po per day * Will consider afterload reduction as SBP maintains WNL - potential Entresto 24/26 mg po BID on 07/30/2023 * Patient appears mildly volume overloaded - consider Lasix 40 mg IV x 1 after K+ repletion completed * Continue Lipitor - goal LDL <55 * Transfuse if HB<7 * Thrombocytopenia - persists; No evidence of HIT * Holding on ASA * Consider SCDs for DVT prophylaxis. * PT/OT Ronen Solis Subjective ID: * 83 yo woman * presenting with chest pain Dx: - NSETMI Hx: * Hyperlipidemia * Hypertension * CVA * Wheel-chair bound * Hypothyroidism * Asthma -nocturnal oxygen (2 L) * Right Heart failure * DVT/PE * Afib * CKD Hospital Course: * NSTEMI - Cath - no major obstructive CAD * Hypotension - Sepsis - resolving Events Overnight: * None reported * No telemetry events Subjective: * No complaints Review of Systems Review of Systems: All systems reviewed & are unremarkable except as noted in HPI & below Physical Exam Physical Exam: JVP 14 cmH20 2-3/6 Systolic Murmur at base left CTA B + Flank edema Warm and perfusing Results & Data Vital Signs (Past 12 Hours) Vital Signs Temp Pulse Pulse Resp BP Pulse Ox O2 Del Method 07/29/23 04:46 36.6 C 07/29/23 04:08 150/84 H 07/29/23 04:08 104 H 26 H 95 07/29/23 00:00 93 H 07/28/23 23:05 36.8 C 07/28/23 23:03 94 H 30 H 94 07/28/23 23:03 139/81 07/28/23 20:10 74 18 98 Nasal Cannula 07/28/23 20:06 119/68 07/28/23 20:06 84 22 99 07/28/23 20:00 Nasal Cannula 07/28/23 19:28 37 C 07/28/23 19:27 90 24 96 Nasal Cannula 07/28/23 19:27 101/65 O2 Flow Rate 07/29/23 04:46 07/29/23 04:08 07/29/23 04:08 07/29/23 00:00 07/28/23 23:05 07/28/23 23:03 07/28/23 23:03 07/28/23 20:10 3 07/28/23 20:06 07/28/23 20:06 07/28/23 20:00 2 07/28/23 19:28 07/28/23 19:27 2 07/28/23 19:27 Laboratory Results Cardiac Enzymes 07/28/23 Range/Units 07:16 Lactate Dehydrogenase 181 (86-244) U/L CBC 07/28/23 07/28/23 07/29/23 Range/Units 07:16 15:50 04:32 WBC 12.96 H 9.71 (4.8-10.8) K/ul RBC 2.00 L 2.18 L (4.20-5.40) M/uL Hgb 7.3 L 7.2 L 7.8 L (12.0-16.0) g/dl Hct 22.4 L 21.2 L 24.0 L (37.0-47.0) % Plt Count 54 L 50 L (130-400) K/uL Comprehensive Metabolic Panel 07/28/23 07/29/23 Range/Units 07:16 04:32 Sodium 137 (136-145) mmol/L Potassium 3.5 (3.5-5.1) mmol/L Chloride 107 (98-107) mmol/L Carbon Dioxide 25 (21-32) mmol/L BUN 20 (6-23) mg/dl Creatinine 1.06 (0.6-1.2) mg/dl Glucose 77 (70-99(Fasting)) mg/dl Calcium 7.1 L (8.6-10.3) mg/dl Direct Bilirubin 0.4 H (0-0.2) mg/dl Intake and Output 07/28/23 07/29/23 07/29/23 22:59 06:59 14:59 Intake Total 120 / 1278.715 50 / 1278.715 Output Total 301 / 1026 425 / 1026 Balance -181 / 252.715 -375 / 252.715 Intake: Oral 120 / 650 50 / 650 Output: Urine Amount (Catheter) 300 / 925 425 / 925 [place]/Indwelling 300 / 925 425 / 925 # Bowel Movements Other: Weight 96 kg Weight Measurement Method Built in [facility] Medications Administered Current Inpatient Medications Acetaminophen (Acetaminophen 325 Mg Tab) 650 mg PO Q4H PRN PRN Reason: Pain or Fever Stop: 08/25/23 07:54 Last Admin: 07/28/23 15:56 Dose: 650 mg Albuterol (Albuterol Hfa 8 Gm Inhaler) 2 puffs INH Q4 PRN PRN Reason: Shortness Of Breath Or Wheezing Stop: 08/25/23 07:54 Ascorbic Acid (Ascorbic Acid 500 Mg Tab) 250 mg PO DAILY [facility] Stop: 08/25/23 08:59 Last Admin: 07/28/23 08:02 Dose: 250 mg Atorvastatin Calcium (Atorvastatin 20 Mg Tab) 20 mg PO DAILY [facility] Stop: 08/25/23 08:59 Last Admin: 07/28/23 08:02 Dose: 20 mg Clopidogrel Bisulfate (Clopidogrel Bisulfate 75 Mg Tab) 75 mg PO QAM [facility] Stop: 08/25/23 08:59 Last Admin: 07/26/23 10:46 Dose: 75 mg Ferrous Sulfate (Ferrous Sulfate 325 Mg Tab) 325 mg PO DAILY [facility] Stop: 08/25/23 08:59 Last Admin: 07/28/23 08:01 Dose: 325 mg Fluticasone/Vilanterol (Fluticasone/Vilanterol 100/25mcg 14 Puffs/Inhaler) 1 puffs INH DAILY [facility] Stop: 08/25/23 08:59 Last Admin: 07/28/23 08:02 Dose: 1 puffs Gabapentin (Gabapentin 300 Mg Cap) 300 mg PO TID [facility] Stop: 08/25/23 08:59 Last Admin: 07/26/23 15:41 Dose: 300 mg Ceftriaxone Sodium 2,000 mg/ (Dextrose) 50 mls @ 100 mls/hr IV Q24H TRACI Stop: 08/11/23 11:59 Last Infusion: 07/28/23 12:13 Dose: Infused Ipratropium [place] (Ipratropium [place] Neb Soln 0.02% 2.5 Ml Vial) 0.5 mg INH QIDR [facility] Stop: 08/25/23 10:59 Last Admin: 07/28/23 20:10 Dose: 0.5 mg Levalbuterol HCl (Levalbuterol 1.25 Mg/3 Ml Neb) 1.25 mg NEB QIDR [facility] Stop: 08/25/23 10:59 Last Admin: 07/28/23 20:10 Dose: 1.25 mg Levalbuterol HCl (Levalbuterol 1.25mg/0.5ml Neb) 1.25 mg NEB Q4H PRN; Protocol PRN Reason: Shortness Of Breath Or Wheezing Stop: 08/25/23 07:54 Levothyroxine Sodium (Levothyroxine Sodium 50 Mcg Tablet) 50 mcg PO DAILYBB [facility] Stop: 08/25/23 07:54 Last Admin: 07/29/23 06:14 Dose: 50 mcg Lidocaine (Lidocaine 5% 1 Patch) 1 patch TD DAILY [facility] Stop: 08/25/23 08:59 Last Admin: 07/28/23 08:02 Dose: 1 patch Metoprolol Tartrate (Metoprolol Tartrate 25 Mg Tab) 25 mg PO QID [facility] Stop: 08/28/23 08:59 Miconazole Nitrate (Miconazole Nitrate 2% Cr 30 Gm Tube) 1 appln EXT BID [facility] Stop: 08/26/23 09:14 Last Admin: 07/28/23 20:50 Dose: 1 appln Miscellaneous (Remove Lidoderm Patch) 1 each N/A DAILY@2100 [facility] Stop: 08/25/23 20:59 Last Admin: 07/28/23 20:50 Dose: 1 each Montelukast Sodium (Montelukast Sodium 10 Mg Tablet) 10 mg PO HS [facility] Stop: 08/25/23 20:59 Last Admin: 07/28/23 20:10 Dose: 10 mg Nitroglycerin (Nitroglycerin Sl 0.4 Mg/Tab Tab) 0.4 mg SL Q5M PRN PRN Reason: Chest Pain Stop: 08/25/23 07:54 Pantoprazole Sodium (Pantoprazole 40 Mg Tab) 40 mg PO DAILY [facility] Stop: 08/25/23 08:59 Last Admin: 07/28/23 08:03 Dose: 40 mg Potassium Phosphate (Pot Phosphate Monobasic W/ Sod Tab) 1 tab PO QID [facility] Stop: 07/30/23 08:59 Tramadol HCl (Tramadol Hcl 50 Mg Tablet) 50 mg PO BID PRN PRN Reason: Pain Stop: 08/25/23 07:54 Last Admin: 07/28/23 20:10 Dose: 50 mg
[2023-07-29] MEDS: IPRATROPIUM BROMIDE NEB SOLN 0.02% 2.5 ML VIAL INH SCH ×4 (07:21→20:47)
[2023-07-29] MEDS: LEVALBUTEROL 1.25 MG/3 ML NEB NEB SCH ×4 (07:21→20:47)
[2023-07-29] MEDS: METOPROLOL TARTRATE 25 MG TAB PO SCH ×4 (07:59→19:35)
[2023-07-29] MEDS: POT PHOSPHATE MONOBASIC W/ SOD TAB PO SCH ×4 (07:59→19:37)
[2023-07-29] MEDS: LIDOCAINE 5% 1 PATCH TD SCH (07:59)
[2023-07-29] MEDS: ATORVASTATIN 20 MG TAB PO SCH (08:00)
[2023-07-29] MEDS: ASCORBIC ACID 500 MG TAB PO SCH (08:00)
[2023-07-29] MEDS: FLUTICASONE/VILANTEROL 100/25MCG 14 PUFFS/INHALER INH SCH (08:00)
[2023-07-29] MEDS: FERROUS SULFATE 325 MG TAB PO SCH (08:00)
[2023-07-29] MEDS: PANTOprazole 40 MG TAB PO SCH (08:00)
[2023-07-29] MEDS: MICONAZOLE NITRATE 2% CR 30 GM TUBE EXT SCH ×2 (08:01→19:36)
[2023-07-29] MEDS: traMADol HCL 50 MG TABLET PO PRN ×2 (08:02→21:40)
[2023-07-29] MEDS: cefTRIAXone SODIUM 2,000 MG in DEXTROSE 5 % MINI-B 50 ML IV SCH (11:46)
--- NOTE | 2023-07-29 13:33 | Infectious Disease Consult ---
Date of Service July 29, 2023 Telehealth Information I performed this visit using a real-time telehealth connection between my location and the patients location ([facility]). After connecting through interactive tele-video, patient was identified by name and date of and/or wristband check.Patient (or authorized healthcare mill representative) was informed that this was a telemedicine visit and it was being conducted confidentially over secure lines. My office door was closed and no one else was present in the room with me.Patient (or authorized healthcare mill representative) provided consent to proceed with the visit, expressed an understanding of privacy and security of the telemedicine visit, and gave permission to have a hospital mill representative in the room in order to assist with the visit and to conduct portions of the visit, as needed. I informed the patient (or authorized healthcare mill representative) that I reviewed their record and presented the opportunity for them to ask any questions regarding the visit today. The patient agreed to participate. Assessment & Plan (1) E coli bacteremia: Plan: Agree with IV ceftriaxone while admitted. I think a 10-14 day course of ABX is reasonable (as long as there is no concern for a renal abscess - please ask to weigh in re: the CT A/P). If the patient is discharged before ABX are complete you can consider using PO cipro to complete the course (provided that QTc is acceptable and there are no drug-drug interactions/contraindications). ID is signing off. Contact us for any new issues. If any workup finalizes after ID signs off, forward the results (this is very important since ID is not automatically notified). History of Present Illness History of Present Illness The patient was admitted for chest pain/dyspnea. 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 Allergies Allergy/AdvReac Type Severity Reaction Status Date / Time aspirin Allergy Intermediate ITCHING Verified 07/26/23 03:08 Sulfa (Sulfonamide Allergy Unknown PER Verified 07/26/23 03:08 Antibiotics) GMG--HAPPENED IN HOSPITAL Home Medications Medication Instructions Recorded Confirmed Type albuterol sulfate 90 mcg/actuation 2 puff inhalation Q4 PRN Shortness 11/10/18 07/26/23 History aerosol inhaler (Ventolin HFA) Of Breath Or Wheezing carvedilol 12.5 mg tablet 12.5 mg PO BID 11/10/18 07/26/23 History montelukast 10 mg tablet 10 mg PO HS 11/10/18 07/26/23 History pantoprazole 40 mg tablet,delayed 40 mg PO DAILY 07/22/19 07/26/23 History release atorvastatin 20 mg tablet 20 mg PO DAILY 10/11/19 07/26/23 History levothyroxine 50 mcg tablet 50 mcg PO DAILYBB 01/15/20 07/26/23 History albuterol sulfate 2.5 mg/3 mL 2.5 mg inhalation Q4H PRN Wheezing 01/06/21 07/26/23 History (0.083 %) solution for nebulization cholecalciferol (vitamin D3) 25 25 mcg PO DAILY 01/06/21 07/26/23 History mcg (1,000 unit) capsule duloxetine 60 mg capsule,delayed 60 mg PO BID 03/07/22 07/26/23 History release fluticasone 100 mcg-salmeterol 50 1 inh inhalation BID 03/07/22 07/26/23 History mcg/dose blistr powdr for inhalation (Advair Diskus) furosemide 20 mg tablet 20 mg PO QAM 03/07/22 07/26/23 History iron,carbonyl 65 mg-vitamin C 125 1 tab PO DAILY 03/07/22 07/26/23 History mg tablet,delayed release (Vitron-C) apixaban 5 mg tablet (Eliquis) 5 mg PO BID #60 tabs 01/03/23 07/26/23 Rx clopidogrel 75 mg tablet 75 mg PO QAM #30 tabs 01/03/23 07/26/23 Rx acetaminophen 325 mg tablet 650 mg PO Q6H PRN Pain 07/26/23 07/26/23 History (Tylenol) gabapentin 300 mg capsule 300 mg PO TID 07/26/23 07/26/23 History lasmiditan 50 mg tablet (Reyvow) 50 mg PO DIRECTED PRN Migraine 07/26/23 07/26/23 History Headache lidocaine 5 % topical patch 1 patch topical DAILY 07/26/23 07/26/23 History tramadol 50 mg tablet 50 mg PO BID PRN Pain 07/26/23 07/26/23 History Patient History Medical History (Updated 07/28/23 @ 10:55 by Valdez aT MD) Anemia E coli bacteremia Acute kidney injury Abnormal urinalysis Chronic left hip pain Diffuse myofascial pain syndrome Chronic anticoagulation Opioid dependence History of pulmonary embolism Pulmonary edema History of SC (myocardial infarction) 2018 - FOLLOWS W/ DR. JACOBSEN On anticoagulant therapy History of endometriosis Osteoporosis Osteoarthritis Migraine Poor historian History of DVT (deep vein thrombosis) RLE - 20 YEARS AGO FOLLOWING INJURY On home oxygen therapy 2 LPM 02 QHS Sleep apnea NO DEVICE Hypertension Hypothyroidism Asthma USES PRN INH 1 X WK Pulmonary embolism (10/10/12) 20 YEARS AGO AFTER INJURY 30 YEARS AGO - POST OP CHOLEYCYSTECTOMY ON WARFARIN Atrial flutter PT COULD NOT CONFIRM Surgical History History of cardiac cath 2018 - [place] - NO STENTS History of left knee surgery History of tubal ligation History of section History of total abdominal hysterectomy and bilateral salpingo-oophorectomy History of appendectomy History of cholecystectomy History of cataract surgery History of tonsillectomy History of esophagogastroduodenoscopy (EGD) History of colonoscopy Family History Father , age 51 of cancer Esophageal cancer Lung cancer Mother , age 103 No problems noted. 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 Physical Exam Unable to connect due to televideo equipment malfunction. Results & Data Vital Signs (Past 12 Hours) Vital Signs Temp Pulse Pulse Resp BP BP Pulse Ox 07/29/23 11:47 36.7 C 89 19 120/62 94 07/29/23 10:11 77 16 99 07/29/23 10:00 90 18 98 07/29/23 08:00 07/29/23 08:00 36.8 C 07/29/23 08:00 104 H 13 96 07/29/23 07:54 132/71 07/29/23 07:54 102 H 13 95 07/29/23 07:21 77 16 97 07/29/23 07:00 90 22 97 07/29/23 04:46 36.6 C 07/29/23 04:08 150/84 H 07/29/23 04:08 104 H 26 H 95 O2 Del Method O2 Flow Rate 07/29/23 11:47 Nasal Cannula 2 07/29/23 10:11 Nasal Cannula 2 07/29/23 10:00 07/29/23 08:00 Nasal Cannula 2 07/29/23 08:00 07/29/23 08:00 Nasal Cannula 2 07/29/23 07:54 07/29/23 07:54 07/29/23 07:21 Room Air 07/29/23 07:00 07/29/23 04:46 07/29/23 04:08 07/29/23 04:08 Laboratory Results Reviewed; see EMR Diagnostic Findings Reviewed; see EMR
[2023-07-29] MEDS ORDERED: SPIRONOLACTONE 25 MG TAB PO ONE (14:12)
[2023-07-29] MEDS: ACETAMINOPHEN 325 MG TAB PO PRN ×2 (16:09→22:01)
[2023-07-29] MEDS: POTASSIUM CHLORIDE CRTAB 20 MEQ TABCR PO SCH (19:36)
[2023-07-29] MEDS: MONTELUKAST SODIUM 10 MG TABLET PO SCH (19:37)
[2023-07-30 05:07] LABS: Mean Corpuscular Hemoglobin 35.9 pg (25.0-34.0); Mean Corpuscular Hgb Conc 33.3 g/dL (32.0-36.0); Mean Corpuscular Volume 107.6 fL (80.0-100.0); Mean Platelet Volume 11.4 fL (9.4-12.4); Platelet Count 66 K/uL (130-400); RDW Coefficient of Variation 13.4 % (11.5-14.5); RDW Standard Deviation 52.8 fL (36.4-46.3); Red Blood Count 2.23 M/uL (4.20-5.40); White Blood Count 6.47 K/ul (4.8-10.8)
[2023-07-30 05:54] LABS: BUN Creatinine Ratio 16.1 (10-20); Calcium 7.3 mg/dl (8.6-10.3); Creatinine Clr Calc Pharmacy 54.4 ml/min; Est GFR (African American) 66.8 ml/min; Est GFR (Non-African American) 57.6 ml/min; Phosphorus 2.2 mg/dl (2.5-4.9); Potassium 3.9 mmol/L (3.5-5.1)
[2023-07-30] MEDS: IPRATROPIUM BROMIDE NEB SOLN 0.02% 2.5 ML VIAL INH SCH ×2 (07:14→10:12)
[2023-07-30] MEDS: LEVALBUTEROL 1.25 MG/3 ML NEB NEB SCH ×2 (07:15→10:12)
[2023-07-30] MEDS: FLUTICASONE/VILANTEROL 100/25MCG 14 PUFFS/INHALER INH SCH (07:43)
[2023-07-30] MEDS: MICONAZOLE NITRATE 2% CR 30 GM TUBE EXT SCH ×2 (07:43→19:54)
[2023-07-30] MEDS: METOPROLOL TARTRATE 25 MG TAB PO SCH (07:43)
[2023-07-30] MEDS: LEVOTHYROXINE SODIUM 50 MCG TABLET PO SCH (07:44)
[2023-07-30] MEDS: LIDOCAINE 5% 1 PATCH TD SCH (07:44)
[2023-07-30] MEDS: PANTOprazole 40 MG TAB PO SCH (07:44)
[2023-07-30] MEDS: POTASSIUM CHLORIDE CRTAB 20 MEQ TABCR PO SCH ×2 (07:44→19:50)
[2023-07-30] MEDS: ASCORBIC ACID 500 MG TAB PO SCH (07:44)
[2023-07-30] MEDS: ATORVASTATIN 20 MG TAB PO SCH (07:44)
[2023-07-30] MEDS: SPIRONOLACTONE 25 MG TAB PO SCH (07:45)
[2023-07-30] MEDS: FERROUS SULFATE 325 MG TAB PO SCH (07:45)
[2023-07-30] MEDS: traMADol HCL 50 MG TABLET PO PRN ×2 (07:46→18:44)
[2023-07-30] MEDS: POT PHOSPHATE MONOBASIC W/ SOD TAB PO SCH ×4 (07:54→19:50)
--- NOTE | 2023-07-30 08:22 | Cardiology Progress Note ---
Date of Service July 30, 2023 Assessment & Plan Admission and Anticipated Discharge Date Admission Date: July 26, 2023 Supervising Physician Co-Signing Physician Notes 83 yo woman presenting with NSTEMI * Cardiac Catheterization 07/26/23 via the right common femoral artery - minimal nonobstructive CAD. H/o of past difficult right radial access due to spasm. Left radial access on 07/26 unsuccessful * New moderate LV systolic dysfunction ,compared to prior echo in December 2022 in setting of chronic LBBB. Question if sepsis induced. * 2/2 Blood cultures have yielded Sensitive E. coli. * Anticoagulation and clopidogrel on hold due to Anemia and thrombocytopenia, with hemoglobin of 7.3, platelet count 54 K AM of 07/28 Plans: * Recovering * SBP >130 mmHg - OFF Pressors * STOP Lopressor 25 mg po QID * Start Toprol XL 50 mg po BID * K+ goal 4.5-5 * Kdur 40 meq po BID on 07/30/23 * Mag goal >2 * Wean FIO2 as tolerated * Continue ABX * murmur - reviewed ECHO; Aortic Calcifications noted - no evidence of Severe * LVEF 35% * Continue Aldactone 25 mg po per day * Start Entresto 24/26 mg po BID * Patient appears mildly volume overloaded -Lasix 40 mg IV x 1 after K+ repletion completed * Continue Lipitor 20 mg po per day- goal LDL <55 * Transfuse if HB<7 (Hb 8) * Thrombocytopenia - persists; No evidence of HIT * Holding on ASA * Consider SCDs for DVT prophylaxis. * PT/OT * Please mobilize * Consider D/C [place] * Consider PICC for ABX and remove RIJ central line Ronen Solis Subjective Events overnight: * None * No Telemetry events Subjective: * No complaints Review of Systems Review of Systems: All systems reviewed & are unremarkable except as noted in HPI & below Physical Exam Physical Exam: JVP 12 cmH20 2-3/6 Systolic Murmur at base left CTA B + Flank edema Warm and perfusing Results & Data Vital Signs (Past 12 Hours) Vital Signs Temp Pulse Pulse Resp BP BP Pulse Ox 07/30/23 07:15 36.7 C 79 20 147/89 H 98 07/30/23 07:15 87 20 96 07/29/23 23:42 94 H 07/29/23 23:00 36.7 C 98 H 20 129/85 96 07/29/23 22:03 96 H 21 07/29/23 22:00 36.8 C 93 H 21 129/85 96 07/29/23 20:57 07/29/23 20:48 89 18 92 O2 Del Method O2 Flow Rate 07/30/23 07:15 Room Air 2 07/30/23 07:15 Nasal Cannula 2 07/29/23 23:42 07/29/23 23:00 Nasal Cannula 2 07/29/23 22:03 07/29/23 22:00 Nasal Cannula 2 07/29/23 20:57 Nasal Cannula 2 07/29/23 20:48 Room Air Laboratory Results CBC 07/30/23 Range/Units 04:52 WBC 6.47 (4.8-10.8) K/ul RBC 2.23 L (4.20-5.40) M/uL Hgb 8.0 L (12.0-16.0) g/dl Hct 24.0 L (37.0-47.0) % Plt Count 66 L (130-400) K/uL Comprehensive Metabolic Panel 07/30/23 Range/Units 04:52 Sodium 138 (136-145) mmol/L Potassium 3.9 (3.5-5.1) mmol/L Chloride 108 H (98-107) mmol/L Carbon Dioxide 25 (21-32) mmol/L BUN 15 (6-23) mg/dl Creatinine 0.93 (0.6-1.2) mg/dl Glucose 77 (70-99(Fasting)) mg/dl Calcium 7.3 L (8.6-10.3) mg/dl Intake and Output 07/29/23 07/30/23 07/30/23 22:59 06:59 14:59 Intake Total 400 / 740 50 / 740 Output Total 500 / 500 Balance -100 / 240 50 / 240 Intake: Oral 400 / 690 50 / 690 Output: Urine Amount (Catheter) 500 / 500 [place]/Indwelling 500 / 500 Other: Weight 93.2 kg Weight Measurement Method Built in [facility] Medications Administered Current Inpatient Medications Acetaminophen (Acetaminophen 325 Mg Tab) 650 mg PO Q4H PRN PRN Reason: Pain or Fever Stop: 08/25/23 07:54 Last Admin: 07/29/23 22:01 Dose: 650 mg Albuterol (Albuterol Hfa 8 Gm Inhaler) 2 puffs INH Q4 PRN PRN Reason: Shortness Of Breath Or Wheezing Stop: 08/25/23 07:54 Ascorbic Acid (Ascorbic Acid 500 Mg Tab) 250 mg PO DAILY [facility] Stop: 08/25/23 08:59 Last Admin: 07/30/23 07:44 Dose: 250 mg Atorvastatin Calcium (Atorvastatin 20 Mg Tab) 20 mg PO DAILY [facility] Stop: 08/25/23 08:59 Last Admin: 07/30/23 07:44 Dose: 20 mg Clopidogrel Bisulfate (Clopidogrel Bisulfate 75 Mg Tab) 75 mg PO QAM [facility] Stop: 08/25/23 08:59 Last Admin: 07/26/23 10:46 Dose: 75 mg Ferrous Sulfate (Ferrous Sulfate 325 Mg Tab) 325 mg PO DAILY [facility] Stop: 08/25/23 08:59 Last Admin: 07/30/23 07:45 Dose: 325 mg Fluticasone/Vilanterol (Fluticasone/Vilanterol 100/25mcg 14 Puffs/Inhaler) 1 puffs INH DAILY [facility] Stop: 08/25/23 08:59 Last Admin: 07/30/23 07:43 Dose: 1 puffs Gabapentin (Gabapentin 300 Mg Cap) 300 mg PO TID [facility] Stop: 08/25/23 08:59 Last Admin: 07/26/23 15:41 Dose: 300 mg Ceftriaxone Sodium 2,000 mg/ (Dextrose) 50 mls @ 100 mls/hr IV Q24H [facility] Stop: 08/11/23 11:59 Last Infusion: 07/29/23 12:19 Dose: Infused Ipratropium Jericho (Ipratropium [place] Neb Soln 0.02% 2.5 Ml Vial) 0.5 mg INH QIDR [facility] Stop: 08/25/23 10:59 Last Admin: 07/30/23 07:14 Dose: 0.5 mg Levalbuterol HCl (Levalbuterol 1.25 Mg/3 Ml Neb) 1.25 mg NEB QIDR [facility] Stop: 08/25/23 10:59 Last Admin: 07/30/23 07:15 Dose: 1.25 mg Levalbuterol HCl (Levalbuterol 1.25mg/0.5ml Neb) 1.25 mg NEB Q4H PRN; Protocol PRN Reason: Shortness Of Breath Or Wheezing Stop: 08/25/23 07:54 Levothyroxine Sodium (Levothyroxine Sodium 50 Mcg Tablet) 50 mcg PO DAILYBB [facility] Stop: 08/25/23 07:54 Last Admin: 07/30/23 07:44 Dose: 50 mcg Lidocaine (Lidocaine 5% 1 Patch) 1 patch TD DAILY [facility] Stop: 08/25/23 08:59 Last Admin: 07/30/23 07:44 Dose: 1 patch Metoprolol Tartrate (Metoprolol Tartrate 25 Mg Tab) 25 mg PO QID [facility] Stop: 08/28/23 08:59 Last Admin: 07/30/23 07:43 Dose: 25 mg Miconazole Nitrate (Miconazole Nitrate 2% Cr 30 Gm Tube) 1 appln EXT BID [facility] Stop: 08/26/23 09:14 Last Admin: 07/30/23 07:43 Dose: 1 appln Miscellaneous (Remove Lidoderm Patch) 1 each N/A DAILY@2100 [facility] Stop: 08/25/23 20:59 Last Admin: 07/29/23 19:37 Dose: 1 each Montelukast Sodium (Montelukast Sodium 10 Mg Tablet) 10 mg PO HS [facility] Stop: 08/25/23 20:59 Last Admin: 07/29/23 19:37 Dose: 10 mg Nitroglycerin (Nitroglycerin Sl 0.4 Mg/Tab Tab) 0.4 mg SL Q5M PRN PRN Reason: Chest Pain Stop: 08/25/23 07:54 Pantoprazole Sodium (Pantoprazole 40 Mg Tab) 40 mg PO DAILY [facility] Stop: 08/25/23 08:59 Last Admin: 07/30/23 07:44 Dose: 40 mg Potassium Chloride (Potassium Chloride Crtab 20 Meq Tabcr) 40 meq PO BID [facility] Stop: 08/28/23 20:59 Last Admin: 07/30/23 07:44 Dose: 40 meq Potassium Phosphate (Pot Phosphate Monobasic W/ Sod Tab) 2 tab PO QID [facility] Stop: 07/31/23 08:59 Last Admin: 07/30/23 07:54 Dose: 2 tab Spironolactone (Spironolactone 25 Mg Tab) 25 mg PO QAM [facility] Stop: 08/29/23 08:59 Last Admin: 07/30/23 07:45 Dose: 25 mg Tramadol HCl (Tramadol Hcl 50 Mg Tablet) 50 mg PO BID PRN PRN Reason: Pain Stop: 08/25/23 07:54 Last Admin: 07/30/23 07:46 Dose: 50 mg
[2023-07-30] MEDS: FUROSEMIDE 40 MG/4 ML VIAL IV SCH (10:36)
[2023-07-30] MEDS: VALSARTAN/SACUBITRIL 26/24MG TAB PO SCH ×2 (10:36→19:53)
--- NOTE | 2023-07-30 11:51 | Hospitalist Progress Note ---
Date of Service July 30, 2023 Assessment & Plan (1) Chest pain: Plan: Ms Breaux is an 83-year-old female with past med history significant for hyperlipidemia, hypothyroidism, asthma mild persistent, uses oxygen 2 L in the nighttime and as needed during daytime, chronic right-sided heart failure, history of CAD, hypertension, long QT interval, history of A-fib, irritable bowel syndrome, GERD, B12 deficiency, CKD stage III, migraines, history of DVT and PE, history of depression, history of CVA, currently wheelchair-bound who was admitted 07/27 for chest pain and concerns for NSTEMI. Patient became progressively more ill appearing and hypotensive prompting infectious workup and empiric antibiotic coverage in the afternoon of 07/27. Patient went to [facility], where it was revealed that patient had very minimal nonobstructive coronary artery disease. Course complicated by hypotension refractory to fluid resuscitation prompting transfer to ICU for pressor support. After 24 hours of pressor support, patient successfully weaned from NE. Notable improvement of mentation the morning of 07/28 prompting transfer to step down. Patient continued to improve notably. Final recommendations include IV ceftriaxone with EOT 08/11. Midline pending placement. Patient requiring a few cardiac medication adjustments, but otherwise will go home with home health services. #Acute on Chronic anemia, hemolysis iso sepsis v blood loss *stable #Acute Thrombocytopenia #Chronic macrocytic anemia #Prior DVT/PE #Right inguinal hematoma *stable -Likely iso sepsis -Hgb stable: CT AP with extraperitoneal hematoma 3cm -Trend CBC, plan for peripheral smear if not resolving after empiric treatment for infection -Hold plavix, resume in am if platelets continue to uptrend (secondary stroke prevention) -Hold anticoagulation for now, resume Eliquis as platelets/hgb uptrend likely in am -Transfuse for hgb <7 -Baseline folate/b12/iron studies: Iron deficiency, B12/Folate wnl -Notable drop in Hgb, Hemolysis labs ordered: haptoglobin, ldh, t bili, peripheral smear pending -T bili 1.0; LDH 181 less likely active hemolysis -HIT labs negative -Continue home supplementation -Monitor hematoma site for signs of hemorrhage #Acute Toxic metabolic encephalopathy *improved #Prior CVA c/b right side hemiparesis Reportedly obtunded overnight, CT head negative ABG not hypercarbic, likely secondary to infectious process/septic shock Delirium precautions Manage contributing factors as below Continue statin, resume plavix likely in am #Septic Shock, 2/2 GNB bacteremia- E coli c/f urinary source #Acute complicated pyelonephritis -CT AP with bilateral perinephric edema -Initial admission eval for ACS r/o, patient appeared progressively more ill throughout course of admission -Blood cultures /2 +GNB bacteremia 07/26 2/2 GNB, E coli pansusceptible 07/27 NGTD -Denied constitutional symptoms outside of general fatigue, reported symptom was mid-sternal, atypical chest pain -Infectious work up: e coli, pansenstive -ID consulted, reviewed note: -Continue Ceftriaxone EOT 08/11 - Midline to be placed #NSTEMI, likely demand type II in setting of sepsis *downtrending #Acute heart failure with reduced ejection fraction, 2/2 stress induced cardiomyopathy #Chronic Right Heart Failure #Mild nonobstructive CAD #LBBB #Prolonged QT Troponin Peaked 2097, ECHO with septal wall motion, global hypokinesis of LV EKG shows left bundle branch block and wide QRS rhythm. Left bundle marlene block seems to be old s/p C 07/26, no obstructive lesions contributing to presentation Hold lasix at this time given sepsis, monitor fluid status, strict IOs daily weights Hold antihypertensives at this time, including home coreg Cardiology on consult, appreciate recommendations Avoid QT prolongating agents Start Metoprolol XL 50mg BID Continue spironolactone 25mg daily Start entresto BID s/p 1x lasix 40mg IV and reassess need for further diuresis Start K supplementation #Paroxysmal Atrial Fibrillation -Discontinue heparin -Resume Eliquis when thrombocytopenia improves -Cardiology on consult -As above #Acute on chronic hypoxic respiratory failure, iso sepsis and bilateral pleural effusions #Nocturnal Hypoxia #COPD/Asthma -Wears 2L qhs O2, uses prn - No wheezing, does not appear to be in exacerbation Continue montelukast Continue home inhalers Nebs ATC and as needed ABG with good oxygenation, no significant retention of CO2 Monitor fluid status as able, diuersis when stable from sepsis standpoint 2 Step prior to dispo #XIN on CKD stage IIIa*improved #Acute pyelonephritis Recent GFR 55-56 2022, Cr baseline ~1 Now 1.39, likely iso sepsis/hypotension Will follow labs, keep maps >65 Strict I/OS Treat infection as above (CTX q 24) #Chronic hip pain 2/2 bilateral greater trochanteric bursitis -Received steroid injections with Rheum 05/28/2023 -Nonsedating, delirium inducing pain management at this time -CTM, tylenol prn #Hypothyroidism TSH wnl on admission On Synthyroid #Migraines Will monitor DVT prophylaxis: SCDs for now Dispo: will dispo home once cardiac medications stable, midline to be placed, resumption of plavix/eliquis Admission and Anticipated Discharge Date Admission Date: July 26, 2023 Subjective NAEO Reports feeling notably improved day by day Eager for IJ removal Cards following, planning for IV lasix and addition of entresto Physical Exam Constitutional: WD/WN, vitals as above Cardiovascular: LYNN+ RRR Gastrointestinal (Abdomen): normal bowel sounds, soft, nontender, no hepatosplenomegaly Results & Data Results & Data Vital Signs (Past 12 Hours) Vital Signs Temp Pulse Resp BP BP Pulse Ox O2 Del Method 07/30/23 10:48 36.6 C 80 22 139/66 97 Nasal Cannula 07/30/23 10:12 18 97 Nasal Cannula 07/30/23 08:00 Nasal Cannula 07/30/23 07:15 36.7 C 79 20 147/89 H 98 Room Air 07/30/23 07:15 87 20 96 Nasal Cannula O2 Flow Rate 07/30/23 10:48 2 07/30/23 10:12 2 07/30/23 08:00 2 07/30/23 07:15 2 07/30/23 07:15 2 Laboratory Results Short CBC 07/30/23 Range/Units 04:52 WBC 6.47 (4.8-10.8) K/ul Hgb 8.0 L (12.0-16.0) g/dl Hct 24.0 L (37.0-47.0) % Plt Count 66 L (130-400) K/uL BMP 07/30/23 04:52 Sodium 138 Potassium 3.9 Chloride 108 H Carbon Dioxide 25 BUN 15 Creatinine 0.93 Glucose 77 Calcium 7.3 L Medications Administered Home Medications Medication Instructions Recorded Confirmed Last Taken albuterol sulfate 90 mcg/actuation 2 puff inhalation Q4 PRN Shortness 11/10/18 07/26/23 07/26/19 19:30 aerosol inhaler (Ventolin HFA) Of Breath Or Wheezing carvedilol 12.5 mg tablet 12.5 mg PO BID 11/10/18 07/26/23 03/07/22 08:00 montelukast 10 mg tablet 10 mg PO HS 11/10/18 07/26/23 03/06/22 pantoprazole 40 mg tablet,delayed 40 mg PO DAILY 07/22/19 07/26/23 03/07/22 release atorvastatin 20 mg tablet 20 mg PO DAILY 10/11/19 07/26/23 03/07/22 levothyroxine 50 mcg tablet 50 mcg PO DAILYBB 01/15/20 07/26/23 03/07/22 albuterol sulfate 2.5 mg/3 mL 2.5 mg inhalation Q4H PRN Wheezing 01/06/21 07/26/23 Unknown (0.083 %) solution for nebulization cholecalciferol (vitamin D3) 25 25 mcg PO DAILY 01/06/21 07/26/23 03/07/22 mcg (1,000 unit) capsule duloxetine 60 mg capsule,delayed 60 mg PO BID 03/07/22 07/26/23 03/07/22 release fluticasone 100 mcg-salmeterol 50 1 inh inhalation BID 03/07/22 07/26/23 03/07/22 08:00 mcg/dose blistr powdr for inhalation (Advair Diskus) furosemide 20 mg tablet 20 mg PO QAM 03/07/22 07/26/23 03/07/22 iron,carbonyl 65 mg-vitamin C 125 1 tab PO DAILY 03/07/22 07/26/23 03/07/22 mg tablet,delayed release (Vitron-C) apixaban 5 mg tablet (Eliquis) 5 mg PO BID #60 tabs 01/03/23 07/26/23 Unknown clopidogrel 75 mg tablet 75 mg PO QAM #30 tabs 01/03/23 07/26/23 Unknown acetaminophen 325 mg tablet 650 mg PO Q6H PRN Pain 07/26/23 07/26/23 Unknown (Tylenol) gabapentin 300 mg capsule 300 mg PO TID 07/26/23 07/26/23 Unknown lasmiditan 50 mg tablet (Reyvow) 50 mg PO DIRECTED PRN Migraine 07/26/23 07/26/23 Unknown Headache lidocaine 5 % topical patch 1 patch topical DAILY 07/26/23 07/26/23 Unknown tramadol 50 mg tablet 50 mg PO BID PRN Pain 07/26/23 07/26/23 Unknown Active Medications Generic Name Dose Route Start Last Admin Trade Name Edvin PRN Reason Stop Dose Admin Acetaminophen 650 mg 07/26/23 07:55 07/29/23 22:01 Acetaminophen 325 Mg Tab PO 08/25/23 07:54 650 mg Q4H PRN Administration Pain or Fever Ascorbic Acid 250 mg 07/26/23 09:00 07/30/23 07:44 Ascorbic Acid 500 Mg Tab PO 08/25/23 08:59 250 mg DAILY TRACI Administration Atorvastatin Calcium 20 mg 07/26/23 09:00 07/30/23 07:44 Atorvastatin 20 Mg Tab PO 08/25/23 08:59 20 mg DAILY TRACI Administration Clopidogrel Bisulfate 75 mg 07/26/23 09:00 07/26/23 10:46 Clopidogrel Bisulfate 75 Mg Tab PO 08/25/23 08:59 75 mg QAM TRACI Administration Ferrous Sulfate 325 mg 07/26/23 09:00 07/30/23 07:45 Ferrous Sulfate 325 Mg Tab PO 08/25/23 08:59 325 mg DAILY TRACI Administration Fluticasone/Vilanterol 1 puffs 07/26/23 09:00 07/30/23 07:43 Fluticasone/Vilanterol 100/25mcg 14 Puffs/Inhaler INH 08/25/23 08:59 1 puffs DAILY TRACI Administration Furosemide 40 mg 07/30/23 10:00 07/30/23 10:36 Furosemide 40 Mg/4 Ml Vial IV 08/29/23 09:59 40 mg QAM TRACI Administration Gabapentin 300 mg 07/26/23 09:00 07/26/23 15:41 Gabapentin 300 Mg Cap PO 08/25/23 08:59 300 mg TID TRACI Administration Ceftriaxone Sodium 2,000 mg/ 50 mls @ 100 mls/hr 07/28/23 12:00 07/29/23 12:19 Dextrose IV 08/11/23 11:59 Infused Q24H TRACI Infusion Ipratropium [place] 0.5 mg 07/26/23 11:00 07/30/23 10:12 Ipratropium [place] Neb Soln 0.02% 2.5 Ml Vial INH 08/25/23 10:59 0.5 mg QIDR TRACI Administration Levalbuterol HCl 1.25 mg 07/26/23 11:00 07/30/23 10:12 Levalbuterol 1.25 Mg/3 Ml Neb NEB 08/25/23 10:59 1.25 mg QIDR TRACI Administration Levothyroxine Sodium 50 mcg 07/26/23 07:55 07/30/23 07:44 Levothyroxine Sodium 50 Mcg Tablet PO 08/25/23 07:54 50 mcg DAILYBB TRACI Administration Lidocaine 1 patch 07/26/23 09:00 07/30/23 07:44 Lidocaine 5% 1 Patch TD 08/25/23 08:59 1 patch DAILY TRACI Administration Miconazole Nitrate 1 appln 07/27/23 09:15 07/30/23 07:43 Miconazole Nitrate 2% Cr 30 Gm Tube EXT 08/26/23 09:14 1 appln BID TRACI Administration Miscellaneous 1 each 07/26/23 21:00 07/29/23 19:37 Remove Lidoderm Patch N/A 08/25/23 20:59 1 each DAILY@2100 TRACI Administration Montelukast Sodium 10 mg 07/26/23 21:00 07/29/23 19:37 Montelukast Sodium 10 Mg Tablet PO 08/25/23 20:59 10 mg HS TRACI Administration Pantoprazole Sodium 40 mg 07/26/23 09:00 07/30/23 07:44 Pantoprazole 40 Mg Tab PO 08/25/23 08:59 40 mg DAILY TRACI Administration Potassium Chloride 40 meq 07/29/23 21:00 07/30/23 07:44 Potassium Chloride Crtab 20 Meq Tabcr PO 08/28/23 20:59 40 meq BID TRACI Administration Potassium Phosphate 2 tab 07/30/23 09:00 07/30/23 07:54 Pot Phosphate Monobasic W/ Sod Tab PO 07/31/23 08:59 2 tab QID TRACI Administration Sacubitril/Valsartan 1 tab 07/30/23 09:45 07/30/23 10:36 Valsartan/Sacubitril 26/24mg Tab PO 08/29/23 09:44 1 tab BID TRACI Administration Spironolactone 25 mg 07/30/23 09:00 07/30/23 07:45 Spironolactone 25 Mg Tab PO 08/29/23 08:59 25 mg QAM TRACI Administration Tramadol HCl 50 mg 07/26/23 07:55 07/30/23 07:46 Tramadol Hcl 50 Mg Tablet PO 08/25/23 07:54 50 mg BID PRN Administration Pain (1) Chest pain Chest pain type: unspecified Qualified Code(s): R07.9 - Chest pain, unspecified
[2023-07-30] MEDS: cefTRIAXone SODIUM 2,000 MG in DEXTROSE 5 % MINI-B 50 ML IV SCH (13:06)
[2023-07-30] MEDS ORDERED: ALBUTEROL 0.083% NEBU SOLN 3 ML VIAL NEB PRN (13:08)
[2023-07-30] MEDS: METOPROLOL SUCC 50MG EXT REL TAB PO SCH (19:49)
[2023-07-30] MEDS: MONTELUKAST SODIUM 10 MG TABLET PO SCH (19:51)
[2023-07-30] MEDS: APIXABAN 5 MG TABLET PO SCH (19:52)
[2023-07-30] MEDS: GABAPENTIN 300 MG CAP PO SCH (20:39)
[2023-07-31] MEDS: LEVOTHYROXINE SODIUM 50 MCG TABLET PO SCH (05:45)
[2023-07-31 06:00] LABS: Hematocrit (blood only) 24.8 % (37.0-47.0); Mean Corpuscular Hemoglobin 35.4 pg (25.0-34.0); Mean Corpuscular Hgb Conc 32.3 g/dL (32.0-36.0); Mean Corpuscular Volume 109.7 fL (80.0-100.0); Mean Platelet Volume 10.9 fL (9.4-12.4); Platelet Count 95 K/uL (130-400); RDW Standard Deviation 56.7 fL (36.4-46.3); Red Blood Count 2.26 M/uL (4.20-5.40); White Blood Count 6.58 K/ul (4.8-10.8)
[2023-07-31 06:31] LABS: BUN Creatinine Ratio 15.5 (10-20); Calcium 7.1 mg/dl (8.6-10.3); Creatinine Clr Calc Pharmacy 59.6 ml/min; Est GFR (African American) 75.5 ml/min; Est GFR (Non-African American) 65.2 ml/min; Magnesium 1.8 mg/dl (1.7-2.4); Phosphorus 3.7 mg/dl (2.5-4.9); Potassium 4.4 mmol/L (3.5-5.1)
--- NOTE | 2023-07-31 07:34 | Cardiology Progress Note ---
Date of Service July 31, 2023 Assessment & Plan Admission and Anticipated Discharge Date Admission Date: July 26, 2023 Supervising Physician Co-Signing Physician Notes 83 yo woman presenting with NSTEMI * Cardiac Catheterization 07/26/23 via the right common femoral artery - minimal nonobstructive CAD. H/o of past difficult right radial access due to spasm. Left radial access on 07/26 unsuccessful * New moderate LV systolic dysfunction ,compared to prior echo in December 2022 in setting of chronic LBBB. Question if sepsis induced. * 2/2 Blood cultures have yielded Sensitive E. coli. * Anticoagulation and clopidogrel on hold due to Anemia and thrombocytopenia, with hemoglobin of 7.3, platelet count 54 K AM of 07/28 Plans: * Recovering * SBP >130 mmHg - OFF Pressors * Lopressor (OFF) * Continue Toprol XL 50 mg po BID * K+ goal 4.5-5 * Kdur 40 meq po x 1 on 07/31/23 * Mag goal >2 * Wean FIO2 as tolerated * Continue ABX * murmur - reviewed ECHO; Aortic Calcifications noted - no evidence of Severe * LVEF 35% * Continue Aldactone 25 mg po per day * Increase Entresto to 49/51 mg po BID * STOP Lasix 40 mg IV * Start Lasix 80 mg po per day * Continue Lipitor 20 mg po per day- goal LDL <55 * Transfuse if HB<7 (Hb 8) * Thrombocytopenia - persists; No evidence of HIT * Holding on ASA * Consider SCDs for DVT prophylaxis. * PT/OT * Please mobilize * Consider D/C [place] * Secure follow up with [facility] Ronen Solis Subjective Events overnight: None reported No telemetry event Subjective: No complaints Review of Systems Review of Systems: All systems reviewed & are unremarkable except as noted in HPI & below Physical Exam Physical Exam: JVP 12 cmH20 2-3/6 Systolic Murmur at base left CTA B + Flank edema Warm and perfusing Results & Data Vital Signs (Past 12 Hours) Vital Signs Temp Pulse Pulse Resp BP Pulse Ox O2 Del Method 07/31/23 03:18 36.7 C 93 H 18 121/74 96 Nasal Cannula 07/31/23 00:00 87 07/30/23 23:14 36.8 C 91 H 18 121/76 96 Nasal Cannula 07/30/23 20:00 Nasal Cannula O2 Flow Rate 07/31/23 03:18 2 07/31/23 00:00 07/30/23 23:14 2 07/30/23 20:00 2 Laboratory Results CBC 07/31/23 Range/Units 05:26 WBC 6.58 (4.8-10.8) K/ul RBC 2.26 L (4.20-5.40) M/uL Hgb 8.0 L (12.0-16.0) g/dl Hct 24.8 L (37.0-47.0) % Plt Count 95 L (130-400) K/uL Comprehensive Metabolic Panel 07/31/23 Range/Units 05:26 Sodium 141 (136-145) mmol/L Potassium 4.4 (3.5-5.1) mmol/L Chloride 109 H (98-107) mmol/L Carbon Dioxide 26 (21-32) mmol/L BUN 13 (6-23) mg/dl Creatinine 0.84 (0.6-1.2) mg/dl Glucose 75 (70-99(Fasting)) mg/dl Calcium 7.1 L (8.6-10.3) mg/dl Intake and Output 07/30/23 07/31/23 07/31/23 22:59 06:59 14:59 Intake Total 480 / 770 120 / 770 Output Total 1301 / 1301 Balance -821 / -531 120 / -531 Intake: Oral 480 / 720 120 / 720 Output: Urine Amount (Catheter) 1300 / 1300 External 500 / 500 [place]/Indwelling 800 / 800 # Bowel Movements 1 / Other: # Unmeasured Voids 1 2 Weight 94.2 kg Medications Administered Current Inpatient Medications Acetaminophen (Acetaminophen 325 Mg Tab) 650 mg PO Q4H PRN PRN Reason: Pain or Fever Stop: 08/25/23 07:54 Last Admin: 07/29/23 22:01 Dose: 650 mg Albuterol (Albuterol Hfa 8 Gm Inhaler) 2 puffs INH Q4 PRN PRN Reason: Shortness Of Breath Or Wheezing Stop: 08/25/23 07:54 Albuterol (Albuterol 0.083% Nebu Soln 3 Ml Vial) 2.5 mg NEB Q4 PRN; Protocol PRN Reason: Shortness Of Breath Or Wheezing Stop: 08/29/23 13:07 Apixaban (Apixaban 5 Mg Tablet) 5 mg PO BID TRACI Stop: 08/29/23 20:59 Last Admin: 07/30/23 19:52 Dose: 5 mg Ascorbic Acid (Ascorbic Acid 500 Mg Tab) 250 mg PO DAILY TRACI Stop: 08/25/23 08:59 Last Admin: 07/30/23 07:44 Dose: 250 mg Atorvastatin Calcium (Atorvastatin 20 Mg Tab) 20 mg PO DAILY TRACI Stop: 08/25/23 08:59 Last Admin: 07/30/23 07:44 Dose: 20 mg Clopidogrel Bisulfate (Clopidogrel Bisulfate 75 Mg Tab) 75 mg PO QAM TRACI Stop: 08/25/23 08:59 Last Admin: 07/26/23 10:46 Dose: 75 mg Ferrous Sulfate (Ferrous Sulfate 325 Mg Tab) 325 mg PO DAILY TRACI Stop: 08/25/23 08:59 Last Admin: 07/30/23 07:45 Dose: 325 mg Fluticasone/Vilanterol (Fluticasone/Vilanterol 100/25mcg 14 Puffs/Inhaler) 1 puffs INH DAILY TRACI Stop: 08/25/23 08:59 Last Admin: 07/30/23 07:43 Dose: 1 puffs Furosemide (Furosemide 40 Mg/4 Ml Vial) 40 mg IV QAM TRACI Stop: 08/29/23 09:59 Last Admin: 07/30/23 10:36 Dose: 40 mg Gabapentin (Gabapentin 300 Mg Cap) 300 mg PO TID TRACI Stop: 08/25/23 08:59 Last Admin: 07/30/23 20:39 Dose: 300 mg Ceftriaxone Sodium 2,000 mg/ (Dextrose) 50 mls @ 100 mls/hr IV Q24H TRACI Stop: 08/11/23 11:59 Last Infusion: 07/30/23 13:49 Dose: Infused Levothyroxine Sodium (Levothyroxine Sodium 50 Mcg Tablet) 50 mcg PO DAILYBB TRACI Stop: 08/25/23 07:54 Last Admin: 07/31/23 05:45 Dose: 50 mcg Lidocaine (Lidocaine 5% 1 Patch) 1 patch TD DAILY TRACI Stop: 08/25/23 08:59 Last Admin: 07/30/23 07:44 Dose: 1 patch Metoprolol Succinate (Metoprolol Succ 50mg Ext Rel Tab) 50 mg PO BID TRACI Stop: 08/29/23 20:59 Last Admin: 07/30/23 19:49 Dose: 50 mg Miconazole Nitrate (Miconazole Nitrate 2% Cr 30 Gm Tube) 1 appln EXT BID TRACI Stop: 08/26/23 09:14 Last Admin: 07/30/23 19:54 Dose: 1 appln Miscellaneous (Remove Lidoderm Patch) 1 each N/A DAILY@2100 TRACI Stop: 08/25/23 20:59 Last Admin: 07/30/23 19:49 Dose: 1 each Montelukast Sodium (Montelukast Sodium 10 Mg Tablet) 10 mg PO HS TRACI Stop: 08/25/23 20:59 Last Admin: 07/30/23 19:51 Dose: 10 mg Nitroglycerin (Nitroglycerin Sl 0.4 Mg/Tab Tab) 0.4 mg SL Q5M PRN PRN Reason: Chest Pain Stop: 08/25/23 07:54 Pantoprazole Sodium (Pantoprazole 40 Mg Tab) 40 mg PO DAILY TRACI Stop: 08/25/23 08:59 Last Admin: 07/30/23 07:44 Dose: 40 mg Potassium Chloride (Potassium Chloride Crtab 20 Meq Tabcr) 40 meq PO BID TRACI Stop: 08/28/23 20:59 Last Admin: 07/30/23 19:50 Dose: 40 meq Potassium Phosphate (Pot Phosphate Monobasic W/ Sod Tab) 2 tab PO QID TRACI Stop: 07/31/23 08:59 Last Admin: 07/30/23 19:50 Dose: 2 tab Sacubitril/Valsartan (Valsartan/Sacubitril 26/24mg Tab) 1 tab PO BID TRACI Stop: 08/29/23 09:44 Last Admin: 07/30/23 19:53 Dose: 1 tab Spironolactone (Spironolactone 25 Mg Tab) 25 mg PO QAM TRACI Stop: 08/29/23 08:59 Last Admin: 07/30/23 07:45 Dose: 25 mg Tramadol HCl (Tramadol Hcl 50 Mg Tablet) 50 mg PO BID PRN PRN Reason: Pain Stop: 08/25/23 07:54 Last Admin: 07/30/23 18:44 Dose: 50 mg
[2023-07-31] MEDS: traMADol HCL 50 MG TABLET PO PRN (08:45)
[2023-07-31] MEDS: VALSARTAN/SACUBITRIL 26/24MG TAB PO SCH (08:46)
[2023-07-31] MEDS: ASCORBIC ACID 500 MG TAB PO SCH (08:46)
[2023-07-31] MEDS: ATORVASTATIN 20 MG TAB PO SCH (08:47)
[2023-07-31] MEDS: APIXABAN 5 MG TABLET PO SCH ×2 (08:47→20:12)
[2023-07-31] MEDS: FERROUS SULFATE 325 MG TAB PO SCH (08:48)
[2023-07-31] MEDS: FLUTICASONE/VILANTEROL 100/25MCG 14 PUFFS/INHALER INH SCH (08:50)
[2023-07-31] MEDS: LIDOCAINE 5% 1 PATCH TD SCH (08:50)
[2023-07-31] MEDS: PANTOprazole 40 MG TAB PO SCH (08:51)
[2023-07-31] MEDS: MICONAZOLE NITRATE 2% CR 30 GM TUBE EXT SCH ×2 (08:51→20:10)
[2023-07-31] MEDS: METOPROLOL SUCC 50MG EXT REL TAB PO SCH (08:51)
[2023-07-31] MEDS: SPIRONOLACTONE 25 MG TAB PO SCH (08:52)
[2023-07-31] MEDS: POTASSIUM CHLORIDE CRTAB 20 MEQ TABCR PO SCH (08:52)
[2023-07-31] MEDS: FUROSEMIDE 40 MG/4 ML VIAL IV SCH (08:53)
[2023-07-31] MEDS: GABAPENTIN 300 MG CAP PO SCH ×3 (10:05→20:11)
[2023-07-31] MEDS ORDERED: POTASSIUM CHLORIDE CRTAB 20 MEQ TABCR PO STA (10:38)
[2023-07-31] MEDS: CLOPIDOGREL BISULFATE 75 MG TAB PO SCH (11:01)
[2023-07-31] MEDS ORDERED: SODIUM CHLORIDE 0.9% 500 ML IV ONE (11:30)
[2023-07-31] MEDS: cefTRIAXone SODIUM 2,000 MG in DEXTROSE 5 % MINI-B 50 ML IV SCH (11:55)
[2023-07-31] MEDS: D5W AND NSS 1,000 ML IV SCH (14:12)
--- NOTE | 2023-07-31 15:44 | Hospitalist Progress Note ---
Date of Service July 31, 2023 Assessment & Plan (1) Septic shock: (2) E coli bacteremia: (3) Chest pain: Plan: per Dr. Duran's notes with addendum: Ms Breaux is an 83-year-old female with past med history significant for hyperlipidemia, hypothyroidism, asthma mild persistent, uses oxygen 2 L in the nighttime and as needed during daytime, chronic right-sided heart failure, history of CAD, hypertension, long QT interval, history of A-fib, irritable bowel syndrome, GERD, B12 deficiency, CKD stage III, migraines, history of DVT and PE, history of depression, history of CVA, currently wheelchair-bound who was admitted 07/27 for chest pain and concerns for NSTEMI. Patient became progressively more ill appearing and hypotensive prompting infectious workup and empiric antibiotic coverage in the afternoon of 07/27. 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 Course complicated by hypotension refractory to fluid resuscitation prompting transfer to ICU for pressor support. After 24 hours of pressor support, patient successfully weaned from NE. Notable improvement of mentation the morning of 07/28 prompting transfer to step down. Patient continued to improve notably. Final recommendations include IV ceftriaxone with EOT 08/11. Midline pending placement. Patient requiring a few cardiac medication adjustments, but otherwise will go home with home health services. #Septic Shock, 2/2 GNB bacteremia- E coli c/f urinary source #Acute complicated pyelonephritis -CT AP with bilateral perinephric edema -Initial admission eval for ACS r/o, patient appeared progressively more ill throughout course of admission -Blood cultures 2/2 +GNB bacteremia 07/26 2/2 GNB, E coli pansusceptible 07/27 NGTD -Denied constitutional symptoms outside of general fatigue, reported symptom was mid-sternal, atypical chest pain -Infectious work up: e coli, pansenstive -ID consulted, reviewed note: -Continue Ceftriaxone EOT 08/11 - Midline to be placed 07/31 Blood culture 07/27: Positive for E. coli Repeat blood cultures ordered today Patient positive for the static hypotension Stop Lasix, start IV fluids-NS 500 cc IV bolus, then D5 NSS at 80 cc/h Monitor closely #Acute on Chronic anemia, hemolysis iso sepsis v blood loss *stable #Acute Thrombocytopenia #Chronic macrocytic anemia #Prior DVT/PE #Right inguinal hematoma *stable -Likely iso sepsis -Hgb stable: CT AP with extraperitoneal hematoma 3cm -Trend CBC, plan for peripheral smear if not resolving after empiric treatment for infection -Hold plavix, resume in am if platelets continue to uptrend (secondary stroke prevention) -Hold anticoagulation for now, resume Eliquis as platelets/hgb uptrend likely in am -Transfuse for hgb <7 -Baseline folate/b12/iron studies: Iron deficiency, B12/Folate wnl -Notable drop in Hgb, Hemolysis labs ordered: haptoglobin, ldh, t bili, peripheral smear pending -T bili 1.0; LDH 181 less likely active hemolysis -HIT labs negative -Continue home supplementation -Monitor hematoma site for signs of hemorrhage 07/31 Hemoglobin stable 8.0 Blood count increasing, now 97 K Repeat CBC tomorrow if still stable, resume Plavix and Eliquis tomorrow #Acute Toxic metabolic encephalopathy *improved #Prior CVA c/b right side hemiparesis Reportedly obtunded overnight, CT head negative ABG not hypercarbic, likely secondary to infectious process/septic shock Delirium precautions Manage contributing factors as below Continue statin, resume plavix likely in am 07/31 Mental status back to baseline #NSTEMI, likely demand type II in setting of sepsis *downtrending #Acute heart failure with reduced ejection fraction, 2/2 stress induced cardiomyopathy #Chronic Right Heart Failure #Mild nonobstructive CAD #LBBB #Prolonged QT Troponin Peaked 2097, ECHO with septal wall motion, global hypokinesis of LV EKG shows left bundle branch block and wide QRS rhythm. Left bundle marlene block seems to be old s/p [facility] 07/26, no obstructive lesions contributing to presentation Hold lasix at this time given sepsis, monitor fluid status, strict IOs daily weights Hold antihypertensives at this time, including home coreg Cardiology on consult, appreciate recommendations Avoid QT prolongating agents Start Metoprolol XL 50mg BID Continue spironolactone 25mg daily Start entresto BID s/p 1x lasix 40mg IV and reassess need for further diuresis Start K supplementation 07/31 Blood pressure low Hold Lasix, Aldactone, metoprolol, Entresto for now Continue IV fluids Monitor BP closely #Paroxysmal Atrial Fibrillation -Discontinue heparin -Resume Eliquis when thrombocytopenia improves -Cardiology on consult -As above #Acute on chronic hypoxic respiratory failure, iso sepsis and bilateral pleural effusions #Nocturnal Hypoxia #COPD/Asthma -Wears 2L qhs O2, uses prn - No wheezing, does not appear to be in exacerbation Continue montelukast Continue home inhalers Nebs ATC and as needed ABG with good oxygenation, no significant retention of CO2 Monitor fluid status as able, diuersis when stable from sepsis standpoint 2 Step prior to dispo 07/31 Currently still on 2 L #XIN on CKD stage IIIa*improved #Acute pyelonephritis Recent GFR 55-56 2022, Cr baseline ~1 Now 1.39, likely iso sepsis/hypotension Will follow labs, keep maps >65 Strict I/OS Treat infection as above (CTX q 24) 07/31 Creatinine 0.84 #Chronic hip pain 2/2 bilateral greater trochanteric bursitis -Received steroid injections with Rheum 05/28/2023 -Nonsedating, delirium inducing pain management at this time -CTM, tylenol prn #Hypothyroidism TSH wnl on admission On Synthyroid #Migraines Will monitor DVT prophylaxis: SCDs for now Dispo: Discharge once cardiac medications stable, resumption of plavix/eliquis Admission and Anticipated Discharge Date Admission Date: July 26, 2023 Subjective Follow-up for septic shock, E. coli bacteremia, UTI, etc. Patient was noted to have orthostatic hypotension with PT today Stuart dizzy, blood pressure and dizziness improved after returning to supine position On exam, patient still somewhat weak Denies chest pain, shortness of breath, palpitations Review of Systems Review of Systems: all noted and negative except for above Physical Exam Physical Exam: General- oriented x 3, not in distress, speaks in sentences with no effort or accessory muscle use Appears somewhat weak Eyes- anicteric Neck- no JVD Lungs- clear breath sounds bilaterally, no rales/wheezes Heart- normal rate, regular rhythm; no murmurs Abdomen- normal bowel sounds, nondistended, soft, no tenderness Extremities- no pretibial edema, no calf tenderness Neuro- alert, oriented x 3; no gross focal neurologic deficits Skin- warm & dry Results & Data Results & Data Vital Signs (Past 12 Hours) Vital Signs Temp Pulse Pulse Resp BP Pulse Ox O2 Del Method 07/31/23 15:00 89 109/73 95 Nasal Cannula 07/31/23 14:45 88 105/68 94 Nasal Cannula 07/31/23 14:00 89 07/31/23 12:26 97 07/31/23 11:56 36.6 C 85 16 109/71 96 Nasal Cannula 07/31/23 09:31 Nasal Cannula 07/31/23 08:47 36.6 C 94 H 16 137/79 96 Nasal Cannula 07/31/23 06:00 85 O2 Flow Rate 07/31/23 15:00 2 07/31/23 14:45 2 07/31/23 14:00 07/31/23 12:26 07/31/23 11:56 2 07/31/23 09:31 2 07/31/23 08:47 2 07/31/23 06:00 all noted and reviewed including below (3) Chest pain Chest pain type: unspecified Qualified Code(s): R07.9 - Chest pain, unspecified
[2023-07-31] MEDS: MONTELUKAST SODIUM 10 MG TABLET PO SCH (20:11)
[2023-07-31] MEDS ORDERED: VALSARTAN/SACUBITRIL 51/49 MG TAB PO SCH (21:00)
[2023-08-01] MEDS: D5W AND NSS 1,000 ML IV SCH ×2 (02:08→13:32)
[2023-08-01] MEDS: LEVOTHYROXINE SODIUM 50 MCG TABLET PO SCH (05:28)
--- NOTE | 2023-08-01 07:59 | Cardiology Progress Note ---
Date of Service August 01, 2023 Assessment & Plan Admission and Anticipated Discharge Date Admission Date: July 26, 2023 Supervising Physician Co-Signing Physician Notes 83 yo woman presenting with NSTEMI * Cardiac Catheterization 07/26/23 via the right common femoral artery - minimal nonobstructive CAD. H/o of past difficult right radial access due to spasm. Left radial access on 07/26 unsuccessful * New moderate LV systolic dysfunction ,compared to prior echo in December 2022 in setting of chronic LBBB. Question if sepsis induced. * 2/2 Blood cultures have yielded Sensitive E. coli. * Anticoagulation and clopidogrel on hold due to Anemia and thrombocytopenia, with hemoglobin of 7.3, platelet count 54 K AM of 07/28 Plans: * Recovering * SBP >130 mmHg - OFF Pressors * Lopressor (OFF) * Continue Toprol XL 50 mg po BID * K+ goal 4.5-5 * Mag goal >2 * Wean FIO2 as tolerated * Continue ABX to complete course * murmur - reviewed ECHO; Aortic Calcifications noted - no evidence of Severe * LVEF 35% * Continue Aldactone 25 mg po per day * Decrease Entresto to 24/26 mg po BID * Lasix IV (OFF) * Lasix 80 mg po per day (@ discharge) - Please hold for 48 hrs * Continue Lipitor 20 mg po per day- goal LDL <55 (LD was 69 earlier this year) * Transfuse if HB<7 (Hb 8) * Thrombocytopenia - improving; No evidence of HIT * Consider SCDs for DVT prophylaxis. * PT/OT * On DOAC for Recurrent DVT/PE Hx * Plavix was restarted - Plts are low, but counts are rising. Hx of CVA (ASA allergy). * Please mobilize * [place] (Out) * [facility] (Out) * Deconditioned - potential plans for Rehab stay * Secure follow up with [facility] * Please call back with any additional questions Ronen oSlis Subjective Events overnight: * + with difficulty standing - legs weak -no reported LOC * No telemetry events Subjective: * Weakness; no other complaints Review of Systems Review of Systems: All systems reviewed & are unremarkable except as noted in HPI & below Physical Exam Physical Exam: JVP @ base of neck 2-3/6 Systolic Murmur at base left CTA B Warm and perfusing Results & Data Vital Signs (Past 12 Hours) Vital Signs Temp Pulse Pulse Resp BP Pulse Ox O2 Del Method 08/01/23 06:00 89 08/01/23 03:54 36.3 C L 91 H 18 106/64 94 Nasal Cannula 08/01/23 00:00 90 07/31/23 23:38 36.6 C 91 H 20 111/71 94 Nasal Cannula 07/31/23 22:00 Nasal Cannula O2 Flow Rate 08/01/23 06:00 08/01/23 03:54 2 08/01/23 00:00 07/31/23 23:38 2 07/31/23 22:00 2 Laboratory Results Intake and Output 07/31/23 08/01/23 08/01/23 22:59 06:59 14:59 Intake Total 320 / 2280 1050 / 2280 Output Total 551 / 1602 100 / 1602 Balance -231 / 678 950 / 678 Intake: IV 1000 / 1210 D5w and Nss 1,000 ml @ 80 mls/ 1000 / 1000 hr IV .[id number] [facility] Rx#:[id number] Oral 320 / 1070 50 / 1070 Output: Urine Amount (Catheter) 550 / 650 100 / 650 External 550 / 650 100 / 650 # Bowel Movements 1 / 2 Other: Weight 94.2 kg 93.9 kg Weight Measurement Method Built in [facility] Medications Administered Current Inpatient Medications Acetaminophen (Acetaminophen 325 Mg Tab) 650 mg PO Q4H PRN PRN Reason: Pain or Fever Stop: 08/25/23 07:54 Last Admin: 07/29/23 22:01 Dose: 650 mg Albuterol (Albuterol Hfa 8 Gm Inhaler) 2 puffs INH Q4 PRN PRN Reason: Shortness Of Breath Or Wheezing Stop: 08/25/23 07:54 Albuterol (Albuterol 0.083% Nebu Soln 3 Ml Vial) 2.5 mg NEB Q4 PRN; Protocol PRN Reason: Shortness Of Breath Or Wheezing Stop: 08/29/23 13:07 Apixaban (Apixaban 5 Mg Tablet) 5 mg PO BID [facility] Stop: 08/29/23 20:59 Last Admin: 07/31/23 20:12 Dose: 5 mg Ascorbic Acid (Ascorbic Acid 500 Mg Tab) 250 mg PO DAILY [facility] Stop: 08/25/23 08:59 Last Admin: 12/13/23 08:46 Dose: 250 mg Atorvastatin Calcium (Atorvastatin 20 Mg Tab) 20 mg PO DAILY [facility] Stop: 08/25/23 08:59 Last Admin: 07/31/23 08:47 Dose: 20 mg Clopidogrel Bisulfate (Clopidogrel Bisulfate 75 Mg Tab) 75 mg PO QAM [facility] Stop: 08/25/23 08:59 Last Admin: 07/31/23 11:01 Dose: 75 mg Ferrous Sulfate (Ferrous Sulfate 325 Mg Tab) 325 mg PO DAILY [facility] Stop: 08/25/23 08:59 Last Admin: 07/31/23 08:48 Dose: 325 mg Fluticasone/Vilanterol (Fluticasone/Vilanterol 100/25mcg 14 Puffs/Inhaler) 1 puffs INH DAILY [facility] Stop: 08/25/23 08:59 Last Admin: 07/31/23 08:50 Dose: 1 puffs Furosemide (Furosemide 80 Mg Tab) 80 mg PO QAM [facility] Stop: 08/31/23 08:59 Gabapentin (Gabapentin 300 Mg Cap) 300 mg PO TID [facility] Stop: 08/25/23 08:59 Last Admin: 07/31/23 20:11 Dose: 300 mg Ceftriaxone Sodium 2,000 mg/ (Dextrose) 50 mls @ 100 mls/hr IV Q24H [facility] Stop: 08/11/23 11:59 Last Infusion: 07/31/23 12:49 Dose: Infused Dextrose/Sodium Chloride (D5w And Nss) 1,000 mls @ 80 mls/hr IV .[id number] [facility] Stop: 08/30/23 13:59 Last Admin: 08/01/23 02:08 Dose: 100 mls/hr Levothyroxine Sodium (Levothyroxine Sodium 50 Mcg Tablet) 50 mcg PO DAILYBB [facility] Stop: 08/25/23 07:54 Last Admin: 08/01/23 05:28 Dose: 50 mcg Lidocaine (Lidocaine 5% 1 Patch) 1 patch TD DAILY [facility] Stop: 08/25/23 08:59 Last Admin: 07/31/23 08:50 Dose: 1 patch Metoprolol Succinate (Metoprolol Succ 50mg Ext Rel Tab) 50 mg PO BID [facility] Stop: 08/29/23 20:59 Last Admin: 07/31/23 08:51 Dose: 50 mg Miconazole Nitrate (Miconazole Nitrate 2% Cr 30 Gm Tube) 1 appln EXT BID [facility] Stop: 08/26/23 09:14 Last Admin: 07/31/23 20:10 Dose: 1 appln Miscellaneous (Remove Lidoderm Patch) 1 each N/A DAILY@2100 [facility] Stop: 08/25/23 20:59 Last Admin: 07/31/23 20:10 Dose: 1 each Montelukast Sodium (Montelukast Sodium 10 Mg Tablet) 10 mg PO HS [facility] Stop: 08/25/23 20:59 Last Admin: 07/31/23 20:11 Dose: 10 mg Nitroglycerin (Nitroglycerin Sl 0.4 Mg/Tab Tab) 0.4 mg SL Q5M PRN PRN Reason: Chest Pain Stop: 08/25/23 07:54 Pantoprazole Sodium (Pantoprazole 40 Mg Tab) 40 mg PO DAILY [facility] Stop: 08/25/23 08:59 Last Admin: 07/31/23 08:51 Dose: 40 mg Potassium Chloride (Potassium Chloride Crtab 20 Meq Tabcr) 40 meq PO BID [facility] Stop: 08/28/23 20:59 Last Admin: 07/31/23 08:52 Dose: 40 meq Sacubitril/Valsartan (Valsartan/Sacubitril 51/49 Mg Tab) 1 tab PO BID [facility] Stop: 08/30/23 20:59 Spironolactone (Spironolactone 25 Mg Tab) 25 mg PO QAM [facility] Stop: 08/29/23 08:59 Last Admin: 07/31/23 08:52 Dose: 25 mg Tramadol HCl (Tramadol Hcl 50 Mg Tablet) 50 mg PO BID PRN PRN Reason: Pain Stop: 08/25/23 07:54 Last Admin: 07/31/23 08:45 Dose: 50 mg
[2023-08-01] MEDS: ATORVASTATIN 20 MG TAB PO SCH (08:57)
[2023-08-01] MEDS: CLOPIDOGREL BISULFATE 75 MG TAB PO SCH (08:57)
[2023-08-01] MEDS: APIXABAN 5 MG TABLET PO SCH ×2 (08:57→21:00)
[2023-08-01] MEDS: ASCORBIC ACID 500 MG TAB PO SCH (08:58)
[2023-08-01] MEDS: FERROUS SULFATE 325 MG TAB PO SCH (08:59)
[2023-08-01] MEDS: GABAPENTIN 300 MG CAP PO SCH ×3 (08:59→21:00)
[2023-08-01] MEDS: PANTOprazole 40 MG TAB PO SCH (09:00)
[2023-08-01] MEDS ORDERED: FUROSEMIDE 80 MG TAB PO SCH (09:00)
[2023-08-01] MEDS: LIDOCAINE 5% 1 PATCH TD SCH (09:01)
[2023-08-01] MEDS: FLUTICASONE/VILANTEROL 100/25MCG 14 PUFFS/INHALER INH SCH (09:01)
[2023-08-01] MEDS: MICONAZOLE NITRATE 2% CR 30 GM TUBE EXT SCH ×2 (09:04→20:59)
[2023-08-01] MEDS: cefTRIAXone SODIUM 2,000 MG in DEXTROSE 5 % MINI-B 50 ML IV SCH (12:01)
[2023-08-01 12:14] LABS: Hematocrit (blood only) 25.7 % (37.0-47.0); Hemoglobin 8.4 g/dl (12.0-16.0); Mean Corpuscular Hemoglobin 35.4 pg (25.0-34.0); Mean Corpuscular Hgb Conc 32.7 g/dL (32.0-36.0); Mean Corpuscular Volume 108.4 fL (80.0-100.0); Mean Platelet Volume 10.9 fL (9.4-12.4); Platelet Count 157 K/uL (130-400); RDW Coefficient of Variation 14.4 % (11.5-14.5); RDW Standard Deviation 56.6 fL (36.4-46.3); Red Blood Count 2.37 M/uL (4.20-5.40); White Blood Count 7.49 K/ul (4.8-10.8)
[2023-08-01 12:32] LABS: BUN Creatinine Ratio 11.5 (10-20); Creatinine Clr Calc Pharmacy 66.5 ml/min; Est GFR (African American) 82.6 ml/min; Est GFR (Non-African American) 71.3 ml/min; Magnesium 1.6 mg/dl (1.7-2.4)
--- NOTE | 2023-08-01 16:31 | Hospitalist Progress Note ---
Date of Service August 01, 2023 Assessment & Plan (1) Septic shock: (2) E coli bacteremia: (3) Chest pain: Plan: per Dr. Duran's notes with addendum: Ms Breaux is an 83-year-old female with past med history significant for hyperlipidemia, hypothyroidism, asthma mild persistent, uses oxygen 2 L in the nighttime and as needed during daytime, chronic right-sided heart failure, history of CAD, hypertension, long QT interval, history of A-fib, irritable bowel syndrome, GERD, B12 deficiency, CKD stage III, migraines, history of DVT and PE, history of depression, history of CVA, currently wheelchair-bound who was admitted 07/27 for chest pain and concerns for NSTEMI. Patient became progressively more ill appearing and hypotensive prompting infectious workup and empiric antibiotic coverage in the afternoon of 07/27. Patient went to vp lab, where it was revealed that patient had very minimal nonobstructive coronary artery disease. Course complicated by hypotension refractory to fluid resuscitation prompting transfer to ICU for pressor support. After 24 hours of pressor support, patient successfully weaned from NE. Notable improvement of mentation the morning of 07/28 prompting transfer to step down. Patient continued to improve notably. Final recommendations include IV ceftriaxone with EOT 08/11. Midline pending placement. Patient requiring a few cardiac medication adjustments, but otherwise will go home with home health services. #Septic Shock, 2/2 GNB bacteremia- E coli c/f urinary source #Acute complicated pyelonephritis -CT AP with bilateral perinephric edema -Initial admission eval for ACS r/o, patient appeared progressively more ill throughout course of admission -Blood cultures 2/2 +GNB bacteremia 07/26 2/2 GNB, E coli pansusceptible 07/27 NGTD -Denied constitutional symptoms outside of general fatigue, reported symptom was mid-sternal, atypical chest pain -Infectious work up: e coli, pansenstive -ID consulted, reviewed note: -Continue Ceftriaxone EOT 08/11 - Midline to be placed 08/01 Blood culture 07/27: Positive for E. coli Repeat blood cultures 07/31: pending Lasix spironolactone on hold in light of presyncopal episode yesterday with orthostatic hypotension Entresto, metoprolol resumed Monitor blood pressure closely #Acute on Chronic anemia, hemolysis iso sepsis v blood loss *stable #Acute Thrombocytopenia #Chronic macrocytic anemia #Prior DVT/PE #Right inguinal hematoma *stable -Likely iso sepsis -Hgb stable: CT AP with extraperitoneal hematoma 3cm -Trend CBC, plan for peripheral smear if not resolving after empiric treatment for infection -Hold plavix, resume in am if platelets continue to uptrend (secondary stroke prevention) -Hold anticoagulation for now, resume Eliquis as platelets/hgb uptrend likely in am -Transfuse for hgb <7 -Baseline folate/b12/iron studies: Iron deficiency, B12/Folate wnl -Notable drop in Hgb, Hemolysis labs ordered: haptoglobin, ldh, t bili, peripheral smear pending -T bili 1.0; LDH 181 less likely active hemolysis -HIT labs negative -Continue home supplementation -Monitor hematoma site for signs of hemorrhage 08/01 Hemoglobin slightly increasing, from 8.0 now 8.4 Blood count also increasing from 95, now 157 K Monitor while on Eliquis and Plavix #Acute Toxic metabolic encephalopathy *improved #Prior CVA c/b right side hemiparesis Reportedly obtunded overnight, CT head negative ABG not hypercarbic, likely secondary to infectious process/septic shock Delirium precautions Manage contributing factors as below Continue statin, resume plavix likely in am 08/01 Mental status back to baseline Back to Plavix, Eliquis #NSTEMI, likely demand type II in setting of sepsis *downtrending #Acute heart failure with reduced ejection fraction, 2/2 stress induced cardiomyopathy #Chronic Right Heart Failure #Mild nonobstructive CAD #LBBB #Prolonged QT Troponin Peaked 2097, ECHO with septal wall motion, global hypokinesis of LV EKG shows left bundle branch block and wide QRS rhythm. Left bundle amrlene block seems to be old s/p [facility] 07/26, no obstructive lesions contributing to presentation Hold lasix at this time given sepsis, monitor fluid status, strict IOs daily weights Hold antihypertensives at this time, including home coreg Cardiology on consult, appreciate recommendations Avoid QT prolongating agents Start Metoprolol XL 50mg BID Continue spironolactone 25mg daily Start entresto BID s/p 1x lasix 40mg IV and reassess need for further diuresis Start K supplementation 08/01 Blood pressure low on the lower side Hold Lasix, Aldactone Continue metoprolol, Entresto cardiology Monitor BP closely #Paroxysmal Atrial Fibrillation -Discontinue heparin -Resume Eliquis when thrombocytopenia improves -Cardiology on consult -As above #Acute on chronic hypoxic respiratory failure, iso sepsis and bilateral pleural effusions #Nocturnal Hypoxia #COPD/Asthma -Wears 2L qhs O2, uses prn - No wheezing, does not appear to be in exacerbation Continue montelukast Continue home inhalers Nebs ATC and as needed ABG with good oxygenation, no significant retention of CO2 Monitor fluid status as able, diuersis when stable from sepsis standpoint 2 Step prior to dispo 08/01 Currently still on 2 L #XIN on CKD stage IIIa*improved #Acute pyelonephritis Recent GFR 55-56 2022, Cr baseline ~1 Now 1.39, likely iso sepsis/hypotension Will follow labs, keep maps >65 Strict I/OS Treat infection as above (CTX q 24) 07/31 Creatinine 0.84 #Chronic hip pain 2/2 bilateral greater trochanteric bursitis -Received steroid injections with Rheum 05/28/2023 -Nonsedating, delirium inducing pain management at this time -CTM, tylenol prn #Hypothyroidism TSH wnl on admission On Synthyroid #Migraines Will monitor DVT prophylaxis: SCDs for now Dispo: Discharge once cardiac medications stable, resumption of plavix/eliquis Admission and Anticipated Discharge Date Admission Date: July 26, 2023 Subjective Follow-up for septic shock, bacteremia, UTI, CHF, etc. Seen resting in bed, sleeping but easily awakened Good spirits, comfortable States she feels improved compared to yesterday No dizziness with ambulation to the bathroom no chest pain, dyspnea, palpitations, dizziness No other new symptom Review of Systems Review of Systems: all noted and negative except for above Physical Exam Physical Exam: General- oriented x 2, not in distress, speaks in sentences with no effort or accessory muscle use Eyes- anicteric Neck- no JVD Lungs- clear breath sounds bilaterally, no rales/wheezes Heart- normal rate, regular rhythm; no murmurs Abdomen- normal bowel sounds, nondistended, soft, nontender Extremities- no pretibial edema, no calf tenderness Neuro- alert, oriented x 2; no gross focal neurologic deficits Skin- warm & dry Results & Data Results & Data Vital Signs (Past 12 Hours) Vital Signs Temp Pulse Pulse Resp BP Pulse Ox O2 Del Method 08/01/23 16:08 36.6 C 108 H 18 121/75 93 Room Air 08/01/23 14:02 92 H 08/01/23 12:45 Room Air 08/01/23 11:27 36.6 C 96 H 18 105/69 93 Room Air 08/01/23 08:02 36.8 C 96 H 18 125/75 93 Nasal Cannula 08/01/23 06:00 89 O2 Flow Rate 08/01/23 16:08 08/01/23 14:02 08/01/23 12:45 08/01/23 11:27 08/01/23 08:02 2 08/01/23 06:00 all noted and reviewed including below (3) Chest pain Chest pain type: unspecified Qualified Code(s): R07.9 - Chest pain, unspecified
[2023-08-01] MEDS: MONTELUKAST SODIUM 10 MG TABLET PO SCH (20:59)
[2023-08-01] MEDS: VALSARTAN/SACUBITRIL 26/24MG TAB PO SCH (20:59)
[2023-08-01] MEDS: METOPROLOL SUCC 50MG EXT REL TAB PO SCH (21:00)
[2023-08-01] MEDS: traMADol HCL 50 MG TABLET PO PRN (21:07)
[2023-08-01] MEDS: ACETAMINOPHEN 325 MG TAB PO PRN (22:04)
[2023-08-02] MEDS: D5W AND NSS 1,000 ML IV SCH ×2 (00:23→12:01)
[2023-08-02] MEDS: LEVOTHYROXINE SODIUM 50 MCG TABLET PO SCH (05:49)
[2023-08-02] MEDS: FLUTICASONE/VILANTEROL 100/25MCG 14 PUFFS/INHALER INH SCH (09:43)
[2023-08-02] MEDS: MICONAZOLE NITRATE 2% CR 30 GM TUBE EXT SCH ×2 (09:43→20:10)
[2023-08-02] MEDS: ATORVASTATIN 20 MG TAB PO SCH (09:44)
[2023-08-02] MEDS: CLOPIDOGREL BISULFATE 75 MG TAB PO SCH (09:44)
[2023-08-02] MEDS: METOPROLOL SUCC 50MG EXT REL TAB PO SCH ×2 (09:44→20:10)
[2023-08-02] MEDS: APIXABAN 5 MG TABLET PO SCH ×2 (09:44→20:11)
[2023-08-02] MEDS: VALSARTAN/SACUBITRIL 26/24MG TAB PO SCH ×2 (09:44→20:12)
[2023-08-02] MEDS: GABAPENTIN 300 MG CAP PO SCH ×3 (09:44→20:10)
[2023-08-02] MEDS: ASCORBIC ACID 500 MG TAB PO SCH (09:45)
[2023-08-02] MEDS: SPIRONOLACTONE 25 MG TAB PO SCH (09:45)
[2023-08-02] MEDS: LIDOCAINE 5% 1 PATCH TD SCH (09:45)
[2023-08-02] MEDS: PANTOprazole 40 MG TAB PO SCH (09:45)
[2023-08-02] MEDS: FERROUS SULFATE 325 MG TAB PO SCH (09:45)
[2023-08-02 10:31] LABS: BUN Creatinine Ratio 9.2 (10-20); Calcium 7.3 mg/dl (8.6-10.3); Creatinine Clr Calc Pharmacy 68.8 ml/min; Est GFR (African American) 85.3 ml/min; Est GFR (Non-African American) 73.6 ml/min; Magnesium 1.6 mg/dl (1.7-2.4); Potassium 4.5 mmol/L (3.5-5.1)
[2023-08-02] MEDS: cefTRIAXone SODIUM 2,000 MG in DEXTROSE 5 % MINI-B 50 ML IV SCH (12:01)
--- NOTE | 2023-08-02 15:09 | Hospitalist Progress Note ---
Date of Service August 02, 2023 Assessment & Plan (1) Septic shock: (2) E coli bacteremia: (3) Chest pain: Plan: per Dr. Duran's notes with addendum: Ms Breaux is an 83-year-old female with past med history significant for hyperlipidemia, hypothyroidism, asthma mild persistent, uses oxygen 2 L in the nighttime and as needed during daytime, chronic right-sided heart failure, history of CAD, hypertension, long QT interval, history of A-fib, irritable bowel syndrome, GERD, B12 deficiency, CKD stage III, migraines, history of DVT and PE, history of depression, history of CVA, currently wheelchair-bound who was admitted 07/27 for chest pain and concerns for NSTEMI. Patient became progressively more ill appearing and hypotensive prompting infectious workup and empiric antibiotic coverage in the afternoon of 07/27. Patient went to microbiology laboratory manager, where it was revealed that patient had very minimal nonobstructive coronary artery disease. Course complicated by hypotension refractory to fluid resuscitation prompting transfer to ICU for pressor support. After 24 hours of pressor support, patient successfully weaned from NE. Notable improvement of mentation the morning of 07/28 prompting transfer to step down. Patient continued to improve notably. Final recommendations include IV ceftriaxone with EOT 08/11. Midline pending placement. Patient requiring a few cardiac medication adjustments, but otherwise will go home with home health services. #Septic Shock, 2/2 GNB bacteremia- E coli c/f urinary source #Acute complicated pyelonephritis -CT AP with bilateral perinephric edema -Initial admission eval for ACS r/o, patient appeared progressively more ill throughout course of admission -Blood cultures 2/2 +GNB bacteremia 07/26 2/2 GNB, E coli pansusceptible 07/27 NGTD -Denied constitutional symptoms outside of general fatigue, reported symptom was mid-sternal, atypical chest pain -Infectious work up: e coli, pansenstive -ID consulted, reviewed note: -Continue Ceftriaxone EOT 08/11 - Midline to be placed 08/02 Blood culture 07/27: Positive for E. coli Repeat blood cultures 07/31: Negative Continue ceftriaxone until August 11 #Acute on Chronic anemia, hemolysis iso sepsis v blood loss *stable #Acute Thrombocytopenia #Chronic macrocytic anemia #Prior DVT/PE #Right inguinal hematoma *stable -Likely iso sepsis -Hgb stable: CT AP with extraperitoneal hematoma 3cm -Trend CBC, plan for peripheral smear if not resolving after empiric treatment for infection -Hold plavix, resume in am if platelets continue to uptrend (secondary stroke prevention) -Hold anticoagulation for now, resume Eliquis as platelets/hgb uptrend likely in am -Transfuse for hgb <7 -Baseline folate/b12/iron studies: Iron deficiency, B12/Folate wnl -Notable drop in Hgb, Hemolysis labs ordered: haptoglobin, ldh, t bili, peripheral smear pending -T bili 1.0; LDH 181 less likely active hemolysis -HIT labs negative -Continue home supplementation -Monitor hematoma site for signs of hemorrhage 08/02 Hemoglobin slightly increasing, from 8.0 now 8.4 Blood count also increasing from 95, now 157 K Monitor while on Eliquis and Plavix #Acute Toxic metabolic encephalopathy *improved #Prior CVA c/b right side hemiparesis Reportedly obtunded overnight, CT head negative ABG not hypercarbic, likely secondary to infectious process/septic shock Delirium precautions Manage contributing factors as below Continue statin, resume plavix likely in am 08/02 Mental status back to baseline Back to Plavix, Eliquis #NSTEMI, likely demand type II in setting of sepsis *downtrending #Acute heart failure with reduced ejection fraction, 2/2 stress induced cardio myopathy #Chronic Right Heart Failure #Mild nonobstructive CAD #LBBB #Prolonged QT Troponin Peaked 2097, ECHO with septal wall motion, global hypokinesis of LV EKG shows left bundle branch block and wide QRS rhythm. Left bundle marlene block seems to be old s/p [facility] 07/26, no obstructive lesions contributing to presentation Hold lasix at this time given sepsis, monitor fluid status, strict IOs daily weights Hold antihypertensives at this time, including home coreg Cardiology on consult, appreciate recommendations Avoid QT prolongating agents Start Metoprolol XL 50mg BID Continue spironolactone 25mg daily Start entresto BID s/p 1x lasix 40mg IV and reassess need for further diuresis Start K supplementation 08/02 BP improving Lasix on hold Continue metoprolol, Entresto cardiology Monitor BP closely #Paroxysmal Atrial Fibrillation - Discontinue heparin - on Eliquis - Cardiology on consult -As above #Acute on chronic hypoxic respiratory failure, iso sepsis and bilateral pleural effusions #Nocturnal Hypoxia #COPD/Asthma -Wears 2L qhs O2, uses prn - No wheezing, does not appear to be in exacerbation Continue montelukast Continue home inhalers Nebs ATC and as needed ABG with good oxygenation, no significant retention of CO2 Monitor fluid status as able, diuersis when stable from sepsis standpoint 2 Step prior to dispo 08/02 Currently still on 2 L #XIN on CKD stage IIIa*improved #Acute pyelonephritis Recent GFR 55-56 2022, Cr baseline ~1 Now 1.39, likely iso sepsis/hypotension Will follow labs, keep maps >65 Strict I/OS Treat infection as above (CTX q 24) 08/02 Creatinine 0.84 #Chronic hip pain 2/2 bilateral greater trochanteric bursitis -Received steroid injections with Rheum 05/28/2023 -Nonsedating, delirium inducing pain management at this time -CTM, tylenol prn #Hypothyroidism TSH wnl on admission On Synthyroid #Migraines Will monitor DVT prophylaxis: SCDs for now Dispo: anticipate d/c to SNF when medically stable Admission and Anticipated Discharge Date Admission Date: July 26, 2023 Subjective Follow-up for septic shock, UTI, bacteremia, etc. Seen resting in bed, awake and alert, in good spirits States she feels better today compared to yesterday Walking to the bathroom, doing physical therapy with no presyncope or syncope, dizziness no chest pain, dyspnea, palpitations Appetite still not great No problems with urination No other new symptoms Review of Systems Review of Systems: all noted and negative except for above Physical Exam Physical Exam: General- oriented x 3, not in distress, speaks in sentences with no effort or accessory muscle use Eyes- anicteric Neck- no JVD Lungs- clear breath sounds bilaterally, no crackles/wheezing Heart- normal rate, regular rhythm; no murmurs Abdomen- normal bowel sounds, nondistended, soft, no tenderness Extremities- no pretibial edema, no calf tenderness Neuro- alert, oriented x 3; no gross focal neurologic deficits Skin- warm & dry Results & Data Results & Data Vital Signs (Past 12 Hours) Vital Signs Temp Pulse Pulse Pulse Resp BP Pulse Ox 08/02/23 11:49 08/02/23 11:48 36.8 C 89 16 136/72 94 08/02/23 08:10 36.6 C 87 16 134/74 93 08/02/23 08:00 89 08/02/23 03:36 37.1 C 104 H 18 113/59 L 93 O2 Del Method 08/02/23 11:49 Room Air 08/02/23 11:48 Room Air 08/02/23 08:10 Room Air 08/02/23 08:00 08/02/23 03:36 Room Air all noted and reviewed including below (3) Chest pain Chest pain type: unspecified Qualified Code(s): R07.9 - Chest pain, unspecified
[2023-08-02] MEDS: traMADol HCL 50 MG TABLET PO PRN (15:11)
[2023-08-02] MEDS: ACETAMINOPHEN 325 MG TAB PO PRN (16:24)
[2023-08-02] MEDS ORDERED: HYDROCODONE/ACETAMOPHEN 5/325MG TAB PO ONE (19:10)
[2023-08-02] MEDS: MONTELUKAST SODIUM 10 MG TABLET PO SCH (20:11)
[2023-08-03] MEDS: D5W AND NSS 1,000 ML IV SCH
[2023-08-03 05:32] LABS: Basophils # (auto) 0.03 K/uL (0.00-0.20); Basophils % (auto) 0.4 %; Eosinophils # (auto) 0.15 K/uL (0.00-0.50); Eosinophils % (auto) 2.1 %; Hematocrit (blood only) 27.8 % (37.0-47.0); Hemoglobin 8.7 g/dl (12.0-16.0); Immature Granulocytes # (auto) 0.06 K/uL (0.01-0.20); Immature Granulocytes % (auto) 0.8 %; Lymphocytes # (auto) 1.74 K/uL (1.20-3.40); Lymphocytes % (auto) 24.6 %; Mean Corpuscular Hemoglobin 35.4 pg (25.0-34.0); Mean Corpuscular Hgb Conc 31.3 g/dL (32.0-36.0); Mean Platelet Volume 10.6 fL (9.4-12.4); Monocytes # (auto) 0.42 K/uL (0.11-0.59); Monocytes % (auto) 5.9 %; Neutrophils # (auto) 4.68 K/uL (1.40-6.50); Neutrophils % (auto) 66.2 %; Platelet Count 218 K/uL (130-400); RDW Coefficient of Variation 14.4 % (11.5-14.5); RDW Standard Deviation 60.1 fL (36.4-46.3); Red Blood Count 2.46 M/uL (4.20-5.40); White Blood Count 7.08 K/ul (4.8-10.8)
[2023-08-03] MEDS: LEVOTHYROXINE SODIUM 50 MCG TABLET PO SCH (05:47)
[2023-08-03 05:49] LABS: BUN Creatinine Ratio 10.4 (10-20); Calcium 7.1 mg/dl (8.6-10.3); Est GFR (African American) 83.9 ml/min; Est GFR (Non-African American) 72.4 ml/min; Potassium 4.4 mmol/L (3.5-5.1)
[2023-08-03 05:56] LABS: Macrocytosis Present
[2023-08-03] MEDS: VALSARTAN/SACUBITRIL 26/24MG TAB PO SCH ×2 (09:53→21:01)
[2023-08-03] MEDS: SPIRONOLACTONE 25 MG TAB PO SCH (09:53)
[2023-08-03] MEDS: ATORVASTATIN 20 MG TAB PO SCH (09:53)
[2023-08-03] MEDS: CLOPIDOGREL BISULFATE 75 MG TAB PO SCH (09:53)
[2023-08-03] MEDS: METOPROLOL SUCC 50MG EXT REL TAB PO SCH ×2 (09:54→21:01)
[2023-08-03] MEDS: FERROUS SULFATE 325 MG TAB PO SCH (09:54)
[2023-08-03] MEDS: ASCORBIC ACID 500 MG TAB PO SCH (09:54)
[2023-08-03] MEDS: APIXABAN 5 MG TABLET PO SCH ×2 (09:55→21:00)
[2023-08-03] MEDS: GABAPENTIN 300 MG CAP PO SCH ×3 (09:56→21:01)
[2023-08-03] MEDS: PANTOprazole 40 MG TAB PO SCH (09:57)
[2023-08-03] MEDS: FLUTICASONE/VILANTEROL 100/25MCG 14 PUFFS/INHALER INH SCH (09:57)
[2023-08-03] MEDS: LIDOCAINE 5% 1 PATCH TD SCH (09:58)
[2023-08-03] MEDS: MICONAZOLE NITRATE 2% CR 30 GM TUBE EXT SCH ×2 (10:00→21:01)
[2023-08-03] MEDS: cefTRIAXone SODIUM 2,000 MG in DEXTROSE 5 % MINI-B 50 ML IV SCH (12:28)
--- NOTE | 2023-08-03 16:08 | Hospitalist Progress Note ---
Date of Service August 03, 2023 Assessment & Plan (1) Septic shock: (2) E coli bacteremia: (3) Chest pain: Plan: per Dr. Duran's notes with addendum: Ms Breaux is an 83-year-old female with past med history significant for hyperlipidemia, hypothyroidism, asthma mild persistent, uses oxygen 2 L in the nighttime and as needed during daytime, chronic right-sided heart failure, history of CAD, hypertension, long QT interval, history of A-fib, irritable bowel syndrome, GERD, B12 deficiency, CKD stage III, migraines, history of DVT and PE, history of depression, history of CVA, currently wheelchair-bound who was admitted 07/27 for chest pain and concerns for NSTEMI. Patient became progressively more ill appearing and hypotensive prompting infectious workup and empiric antibiotic coverage in the afternoon of 07/27. Patient went to recyclable materials sorter, where it was revealed that patient had very minimal nonobstructive coronary artery disease. Course complicated by hypotension refractory to fluid resuscitation prompting transfer to ICU for pressor support. After 24 hours of pressor support, patient successfully weaned from NE. Notable improvement of mentation the morning of 07/28 prompting transfer to step down. Patient continued to improve notably. Final recommendations include IV ceftriaxone with EOT 08/11. Midline pending placement. Patient requiring a few cardiac medication adjustments, but otherwise will go home with home health services. #Septic Shock, 2/2 GNB bacteremia- E coli c/f urinary source #Acute complicated pyelonephritis -CT AP with bilateral perinephric edema -Initial admission eval for ACS r/o, patient appeared progressively more ill throughout course of admission -Blood cultures 2/2 +GNB bacteremia 07/26 2/2 GNB, E coli pansusceptible 07/27 NGTD -Denied constitutional symptoms outside of general fatigue, reported symptom was mid-sternal, atypical chest pain -Infectious work up: e coli, pansenstive -ID consulted, reviewed note: -Continue Ceftriaxone EOT 08/11 - Midline to be placed 08/03 Blood culture 07/27: Positive for E. coli Repeat blood cultures 07/31: Negative Afebrile Blood pressure stable now Continue ceftriaxone until August 11 #Acute on Chronic anemia, hemolysis iso sepsis v blood loss *stable #Acute Thrombocytopenia #Chronic macrocytic anemia #Prior DVT/PE #Right inguinal hematoma *stable -Likely iso sepsis -Hgb stable: CT AP with extraperitoneal hematoma 3cm -Trend CBC, plan for peripheral smear if not resolving after empiric treatment for infection -Hold plavix, resume in am if platelets continue to uptrend (secondary stroke prevention) -Hold anticoagulation for now, resume Eliquis as platelets/hgb uptrend likely in am -Transfuse for hgb <7 -Baseline folate/b12/iron studies: Iron deficiency, B12/Folate wnl -Notable drop in Hgb, Hemolysis labs ordered: haptoglobin, ldh, t bili, peripheral smear pending -T bili 1.0; LDH 181 less likely active hemolysis -HIT labs negative -Continue home supplementation -Monitor hematoma site for signs of hemorrhage 08/03 Hemoglobin slightly increasing, from 8.0 now 8.7 Blood count also increasing from 95, now 218 Monitor while on Eliquis and Plavix #Acute Toxic metabolic encephalopathy *improved #Prior CVA c/b right side hemiparesis Reportedly obtunded overnight, CT head negative ABG not hypercarbic, likely secondary to infectious process/septic shock Delirium precautions Manage contributing factors as below Continue statin, resume plavix likely in am 08/03 Mental status back to baseline Back to Plavix, Eliquis #NSTEMI, likely demand type II in setting of sepsis *downtrending #Acute heart failure with reduced ejection fraction, 2/2 stress induced cardiomyopathy #Chronic Right Heart Failure #Mild nonobstructive CAD #LBBB #Prolonged QT Troponin Peaked 2097, ECHO with septal wall motion, global hypokinesis of LV EKG shows left bundle branch block and wide QRS rhythm. Left bundle marlene block seems to be old s/p [facility] 07/26, no obstructive lesions contributing to presentation Hold lasix at this time given sepsis, monitor fluid status, strict IOs daily weights Hold antihypertensives at this time, including home coreg Cardiology on consult, appreciate recommendations Avoid QT prolongating agents Start Metoprolol XL 50mg BID Continue spironolactone 25mg daily Start entresto BID s/p 1x lasix 40mg IV and reassess need for further diuresis Start K supplementation 08/03 BP improving Lasix on hold--resume tomorrow Continue metoprolol, Entresto cardiology Monitor BP closely #Paroxysmal Atrial Fibrillation - Discontinue heparin - on Eliquis - Cardiology on consult -As above #Acute on chronic hypoxic respiratory failure, iso sepsis and bilateral pleural effusions #Nocturnal Hypoxia #COPD/Asthma -Wears 2L qhs O2, uses prn - No wheezing, does not appear to be in exacerbation Continue montelukast Continue home inhalers Nebs ATC and as needed ABG with good oxygenation, no significant retention of CO2 Monitor fluid status as able, diuersis when stable from sepsis standpoint 2 Step prior to dispo 08/03 B12 oxygen Currently on room air, 96% #XIN on CKD stage IIIa*improved #Acute pyelonephritis Recent GFR 55-56 2022, Cr baseline ~1 Now 1.39, likely iso sepsis/hypotension Will follow labs, keep maps >65 Strict I/OS Treat infection as above (CTX q 24) 08/03 Creatinine 0.84 #Chronic hip pain 2/2 bilateral greater trochanteric bursitis -Received steroid injections with Rheum 05/28/2023 -Nonsedating, delirium inducing pain management at this time -CTM, tylenol prn #Hypothyroidism TSH wnl on admission On Synthyroid #Migraines Will monitor DVT prophylaxis: SCDs for now Dispo: anticipate d/c to SNF when medically stable Admission and Anticipated Discharge Date Admission Date: July 26, 2023 Subjective Follow-up for CHF, etc. Seen resting in bed, comfortable, not in distress States she feels improved overall No dizziness No chest pain, shortness of breath Appetite is okay Right knee pain resolved No other new symptom Review of Systems Review of Systems: all noted and negative except for above Physical Exam Physical Exam: General- oriented x 3, not in distress, speaks in sentences with no effort or accessory muscle use Eyes- anicteric Neck- no JVD Lungs- clear breath sounds bilaterally Heart- normal rate, regular rhythm; no murmurs Abdomen- normal bowel sounds, nondistended, soft, nontender Extremities- no pretibial edema, no calf tenderness Knees: No edema, warmth, tenderness Neuro- alert, oriented x 3; no gross focal neurologic deficits Skin- warm & dry Results & Data Results & Data Vital Signs (Past 12 Hours) Vital Signs Temp Pulse Pulse Resp BP Pulse Ox O2 Del Method 08/03/23 12:28 126/62 08/03/23 11:53 36.5 C 93 H 16 186/78 H 96 Room Air 08/03/23 08:24 36.4 C L 93 H 16 121/61 95 Room Air 08/03/23 08:00 85 08/03/23 04:58 36.5 C 85 18 123/73 93 Room Air all noted and reviewed including below (3) Chest pain Chest pain type: unspecified Qualified Code(s): R07.9 - Chest pain, unspecified
[2023-08-03] MEDS: ACETAMINOPHEN 325 MG TAB PO PRN (21:00)
[2023-08-03] MEDS: MONTELUKAST SODIUM 10 MG TABLET PO SCH (21:01)
[2023-08-04] MEDS: LEVOTHYROXINE SODIUM 50 MCG TABLET PO SCH (06:37)
[2023-08-04] MEDS: LIDOCAINE 5% 1 PATCH TD SCH (10:22)
[2023-08-04] MEDS: CLOPIDOGREL BISULFATE 75 MG TAB PO SCH (10:23)
[2023-08-04] MEDS: SPIRONOLACTONE 25 MG TAB PO SCH (10:23)
[2023-08-04] MEDS: FUROSEMIDE 40 MG TAB PO SCH (10:23)
[2023-08-04] MEDS: METOPROLOL SUCC 50MG EXT REL TAB PO SCH ×2 (10:24→20:42)
[2023-08-04] MEDS: VALSARTAN/SACUBITRIL 26/24MG TAB PO SCH ×2 (10:24→20:42)
[2023-08-04] MEDS: PANTOprazole 40 MG TAB PO SCH (10:24)
[2023-08-04] MEDS: ASCORBIC ACID 500 MG TAB PO SCH (10:25)
[2023-08-04] MEDS: GABAPENTIN 300 MG CAP PO SCH ×3 (10:25→20:41)
[2023-08-04] MEDS: ATORVASTATIN 20 MG TAB PO SCH (10:25)
[2023-08-04] MEDS: FERROUS SULFATE 325 MG TAB PO SCH (10:25)
[2023-08-04] MEDS: APIXABAN 5 MG TABLET PO SCH ×2 (10:26→20:42)
[2023-08-04] MEDS: FLUTICASONE/VILANTEROL 100/25MCG 14 PUFFS/INHALER INH SCH (10:26)
[2023-08-04] MEDS: MICONAZOLE NITRATE 2% CR 30 GM TUBE EXT SCH ×2 (10:32→20:42)
[2023-08-04] MEDS: cefTRIAXone SODIUM 2,000 MG in DEXTROSE 5 % MINI-B 50 ML IV SCH (11:51)
--- NOTE | 2023-08-04 16:44 | Hospitalist Progress Note ---
Date of Service August 04, 2023 Assessment & Plan (1) Septic shock: (2) E coli bacteremia: (3) Chest pain: Plan: per Dr. Duran's notes with addendum: Ms Breaux is an 83-year-old female with past med history significant for hyperlipidemia, hypothyroidism, asthma mild persistent, uses oxygen 2 L in the nighttime and as needed during daytime, chronic right-sided heart failure, history of CAD, hypertension, long QT interval, history of A-fib, irritable bowel syndrome, GERD, B12 deficiency, CKD stage III, migraines, history of DVT and PE, history of depression, history of CVA, currently wheelchair-bound who was admitted 07/27 for chest pain and concerns for NSTEMI. Patient became progressively more ill appearing and hypotensive prompting infectious workup and empiric antibiotic coverage in the afternoon of 07/27. Patient went to lab support technician, where it was revealed that patient had very minimal nonobstructive coronary artery disease. Course complicated by hypotension refractory to fluid resuscitation prompting transfer to ICU for pressor support. After 24 hours of pressor support, patient successfully weaned from NE. Notable improvement of mentation the morning of 07/28 prompting transfer to step down. Patient continued to improve notably. Final recommendations include IV ceftriaxone with EOT 08/11. Midline pending placement. Patient requiring a few cardiac medication adjustments, but otherwise will go home with home health services. #Septic Shock, 2/2 GNB bacteremia- E coli c/f urinary source #Acute complicated pyelonephritis -CT AP with bilateral perinephric edema -Initial admission eval for ACS r/o, patient appeared progressively more ill throughout course of admission -Blood cultures 2/2 +GNB bacteremia 07/26 2/2 GNB, E coli pansusceptible 07/27 NGTD -Denied constitutional symptoms outside of general fatigue, reported symptom was mid-sternal, atypical chest pain -Infectious work up: e coli, pansenstive -ID consulted, reviewed note: -Continue Ceftriaxone EOT 08/11 - Midline to be placed 08/04 Blood culture 07/27: Positive for E. coli Repeat blood cultures 07/31: Negative Afebrile Blood pressure stable now Continue ceftriaxone until August 11 Stable overall #Acute on Chronic anemia, hemolysis iso sepsis v blood loss *stable #Acute Thrombocytopenia #Chronic macrocytic anemia #Prior DVT/PE #Right inguinal hematoma *stable -Likely iso sepsis -Hgb stable: CT AP with extraperitoneal hematoma 3cm -Trend CBC, plan for peripheral smear if not resolving after empiric treatment for infection -Hold plavix, resume in am if platelets continue to uptrend (secondary stroke prevention) -Hold anticoagulation for now, resume Eliquis as platelets/hgb uptrend likely in am -Transfuse for hgb <7 -Baseline folate/b12/iron studies: Iron deficiency, B12/Folate wnl -Notable drop in Hgb, Hemolysis labs ordered: haptoglobin, ldh, t bili, peripheral smear pending -T bili 1.0; LDH 181 less likely active hemolysis -HIT labs negative -Continue home supplementation -Monitor hematoma site for signs of hemorrhage 08/04 Hemoglobin slightly increasing, from 8.0 now 8.7 Blood count also increasing from 95, now 218 CBC trending up overall Monitor while on Eliquis and Plavix #Acute Toxic metabolic encephalopathy *improved #Prior CVA c/b right side hemiparesis Reportedly obtunded overnight, CT head negative ABG not hypercarbic, likely secondary to infectious process/septic shock Delirium precautions Manage contributing factors as below Continue statin, resume plavix likely in am 08/04 Mental status back to baseline Back to Plavix, Eliquis #NSTEMI, likely demand type II in setting of sepsis *downtrending #Acute heart failure with reduced ejection fraction, 2/2 stress induced cardiomyopathy #Chronic Right Heart Failure #Mild nonobstructive CAD #LBBB #Prolonged QT Troponin Peaked 2097, ECHO with septal wall motion, global hypokinesis of LV EKG shows left bundle branch block and wide QRS rhythm. Left bundle marlene block seems to be old s/p [facility] 07/26, no obstructive lesions contributing to presentation Hold lasix at this time given sepsis, monitor fluid status, strict IOs daily weights Hold antihypertensives at this time, including home coreg Cardiology on consult, appreciate recommendations Avoid QT prolongating agents Start Metoprolol XL 50mg BID Continue spironolactone 25mg daily Start entresto BID s/p 1x lasix 40mg IV and reassess need for further diuresis Start K supplementation 08/04 BP improving Lasix resumed So on spironolactone Continue metoprolol, Entresto cardiology Monitor BP closely #Paroxysmal Atrial Fibrillation - Discontinue heparin - on Eliquis - Cardiology on consult -As above #Acute on chronic hypoxic respiratory failure, iso sepsis and bilateral pleural effusions #Nocturnal Hypoxia #COPD/Asthma -Wears 2L qhs O2, uses prn - No wheezing, does not appear to be in exacerbation Continue montelukast Continue home inhalers Nebs ATC and as needed ABG with good oxygenation, no significant retention of CO2 Monitor fluid status as able, diuresis when stable from sepsis standpoint 2 Step prior to dispo 08/04 B12 oxygen Currently on room air, 96% #XIN on CKD stage IIIa*improved #Acute pyelonephritis Recent GFR 55-56 2022, Cr baseline ~1 Now 1.39, likely iso sepsis/hypotension Will follow labs, keep maps >65 Strict I/OS Treat infection as above (CTX q 24) 08/04 Creatinine 0.84 #Chronic hip pain 2/2 bilateral greater trochanteric bursitis -Received steroid injections with Rheum 05/28/2023 -Nonsedating, delirium inducing pain management at this time -CTM, tylenol prn #Hypothyroidism TSH wnl on admission On Synthyroid #Migraines Will monitor DVT prophylaxis: SCDs for now Dispo: anticipate d/c to SNF when medically stable Admission and Anticipated Discharge Date Admission Date: July 26, 2023 Subjective Follow-up for septic shock, CHF, etc. Seen resting in bed, in good spirits, comfortable States she continues to feel improved overall No dizziness, presyncope or syncope today no chest pain, dyspnea, palpitations No other new symptoms Review of Systems Review of Systems: all noted and negative except for above Physical Exam Physical Exam: General- oriented x 3, not in distress, speaks in sentences with no effort or accessory muscle use Eyes- anicteric Neck- no JVD Lungs- clear breath sounds bilaterally, no rales/wheezes Heart- normal rate, regular rhythm; no murmurs Abdomen- normal bowel sounds, nondistended, soft, nontender Extremities- no pretibial edema, no calf tenderness Neuro- alert, oriented x 3; no gross focal neurologic deficits Skin- warm & dry Results & Data Results & Data Vital Signs (Past 12 Hours) Vital Signs Temp Pulse Pulse Resp BP Pulse Ox O2 Del Method 08/04/23 16:11 36.8 C 90 16 137/79 94 Room Air 08/04/23 14:56 87 08/04/23 11:18 36.7 C 87 18 136/78 97 Room Air 08/04/23 10:37 Room Air 08/04/23 09:01 79 08/04/23 07:56 36.7 C 87 18 143/81 H 97 Room Air all noted and reviewed including below (3) Chest pain Chest pain type: unspecified Qualified Code(s): R07.9 - Chest pain, unspecified
[2023-08-04] MEDS: traMADol HCL 50 MG TABLET PO PRN (16:50)
[2023-08-04] MEDS: ACETAMINOPHEN 325 MG TAB PO PRN (20:41)
[2023-08-04] MEDS: MONTELUKAST SODIUM 10 MG TABLET PO SCH (20:42)
[2023-08-05] MEDS: LEVOTHYROXINE SODIUM 50 MCG TABLET PO SCH (05:12)
[2023-08-05 06:24] LABS: BUN Creatinine Ratio 14.9 (10-20); Calcium 7.3 mg/dl (8.6-10.3); Creatinine Clr Calc Pharmacy 71.6 ml/min; Est GFR (African American) 88.1 ml/min; Magnesium 1.5 mg/dl (1.7-2.4); Potassium 4.2 mmol/L (3.5-5.1)
[2023-08-05] MEDS: APIXABAN 5 MG TABLET PO SCH (08:35)
[2023-08-05] MEDS: GABAPENTIN 300 MG CAP PO SCH ×2 (08:35→13:21)
[2023-08-05] MEDS: METOPROLOL SUCC 50MG EXT REL TAB PO SCH (08:35)
[2023-08-05] MEDS: VALSARTAN/SACUBITRIL 26/24MG TAB PO SCH (08:35)
[2023-08-05] MEDS: ATORVASTATIN 20 MG TAB PO SCH (08:36)
[2023-08-05] MEDS: FUROSEMIDE 40 MG TAB PO SCH (08:36)
[2023-08-05] MEDS: CLOPIDOGREL BISULFATE 75 MG TAB PO SCH (08:36)
[2023-08-05] MEDS: PANTOprazole 40 MG TAB PO SCH (08:36)
[2023-08-05] MEDS: ASCORBIC ACID 500 MG TAB PO SCH (08:36)
[2023-08-05] MEDS: LIDOCAINE 5% 1 PATCH TD SCH (08:36)
[2023-08-05] MEDS: SPIRONOLACTONE 25 MG TAB PO SCH (08:36)
[2023-08-05] MEDS: FERROUS SULFATE 325 MG TAB PO SCH (08:36)
[2023-08-05] MEDS: FLUTICASONE/VILANTEROL 100/25MCG 14 PUFFS/INHALER INH SCH (08:36)
[2023-08-05] MEDS: MICONAZOLE NITRATE 2% CR 30 GM TUBE EXT SCH (08:37)
[2023-08-05] MEDS ORDERED: MAGNESIUM OXIDE 400 MG TAB PO SCH (09:00)
[2023-08-05] MEDS: cefTRIAXone SODIUM 2,000 MG in DEXTROSE 5 % MINI-B 50 ML IV SCH (11:42)
--- NOTE | 2023-08-05 13:55 | Discharge Summary ---
Discharge Summary Date of Service August 05, 2023 Notes For Next Care Provider Medication Changes From Visit PLEASE SEE ASSESSMENT AND PLAN BELOW. Admission HPI Per Admitting Provider 83-year-old female with past med significant for hyperlipidemia, hypothyroidism, asthma mild persistent, uses oxygen 2 L in the nighttime and as needed during daytime, chronic right-sided heart failure, history of CAD, hypertension, long QT interval, history of A-fib, irritable bowel syndrome, GERD, B12 deficiency, CKD stage III, migraines, history of DVT and PE, history of depression, history of CVA, currently wheelchair-bound lives at home with her was brought in because of shortness of breath and chest pain going on for last couple of days. Patient was hypoxic for EMS and was given neb treatment. Currently on BiPAP. Patient states currently still has chest pain. Has some nausea. Has some abdominal pain. Denies any fever. Has some cough. Currently no headache. Appetite is okay. Normal bowel and bladder movements. states she woke up at 1 AM with complaint of shortness of breath and as was not getting better EMS was called. Patient is somewhat hard of hearing. Past medical history. As mentioned above Past surgical history. Colonoscopy. Injection of lumbosacral spine. Ligation of oviducts. Partial removal of colon. Appendectomy. Cataract surgery. Cholecystectomy. Tonsillectomy and adenoidectomy. Sacroiliac joint injection. Total hysterectomy. Social history. . No smoking. Alcohol rare. No drug use. Family history. Mother had arthritis. Skin cancer. Stroke. Father had lung cancer. Aunt has breast/colon cancer Admission Exam Per Admitting Provider General- Not in distress Head- atraumatic Eyes- EOMI Neck- supple, no JVD. Lungs- clear to auscultation , no wheezing or crackles heard. Heart- regular rate and rhythm; no murmur, no gallop. Abdomen- normal bowel sounds, soft, nontender, no distension. Extremities- no pretibial edema, no erythema seen. Neuro- alert, oriented ; EOMI; no facial palsy; no dysarthria; obeys commands. Principal Dx & Hospital Course #1 = Principal Diagnosis (1) Septic shock: (2) E coli bacteremia: (3) Chest pain: per Dr. Duran's notes with addendum: Ms Breaux is an 83-year-old female with past med history significant for hyperlipidemia, hypothyroidism, asthma mild persistent, uses oxygen 2 L in the nighttime and as needed during daytime, chronic right-sided heart failure, history of CAD, hypertension, long QT interval, history of A-fib, irritable bowel syndrome, GERD, B12 deficiency, CKD stage III, migraines, history of DVT and PE, history of depression, history of CVA, currently wheelchair-bound who was admitted 07/27 for chest pain and concerns for NSTEMI. Patient became progressively more ill appearing and hypotensive prompting infectious workup and empiric antibiotic coverage in the afternoon of 07/27. Patient went to [facility], where it was revealed that patient had very minimal nonobstructive coronary artery disease. Course complicated by hypotension refractory to fluid resuscitation prompting transfer to ICU for pressor support. After 24 hours of pressor support, patient successfully weaned from NE. Notable improvement of mentation the morning of 07/28 prompting transfer to step down. Patient continued to improve notably. Final recommendations include IV ceftriaxone with EOT 08/11. Midline pending placement. Patient requiring a few cardiac medication adjustments, but otherwise will go home with home health services. #Septic Shock, 2/2 GNB bacteremia- E coli c/f urinary source #Acute complicated pyelonephritis -CT AP with bilateral perinephric edema -Initial admission eval for ACS r/o, patient appeared progressively more ill throughout course of admission -Blood cultures 2/2 +GNB bacteremia 07/26 2/2 GNB, E coli pansusceptible 07/27 NGTD -Denied constitutional symptoms outside of general fatigue, reported symptom was mid-sternal, atypical chest pain -Infectious work up: e coli, pansenstive -ID consulted, reviewed note: -Continue Ceftriaxone EOT 08/11 08/05 Blood culture 07/27: Positive for E. coli Repeat blood cultures 07/31: Negative Afebrile Blood pressure stable now no dizziness Continue ceftriaxone until August 11 Continue probiotics x 1 month at least Stable overall #Acute on Chronic anemia, hemolysis iso sepsis v blood loss *stable #Acute Thrombocytopenia #Chronic macrocytic anemia #Prior DVT/PE #Right inguinal hematoma *stable -Likely secondary to sepsis -Hgb stable: CT AP with extraperitoneal hematoma 3cm -Trend CBC, plan for peripheral smear if not resolving after empiric treatment for infection -Baseline folate/b12/iron studies: Iron deficiency, B12/Folate wnl - less likely active hemolysis -HIT labs negative 08/05 Hemoglobin slightly increasing, from 8.0 now 8.7 Blood count also increasing from 95, now 218 CBC trending up overall Monitor while on Eliquis and Plavix #Acute Toxic metabolic encephalopathy #Prior CVA c/b right side hemiparesis 08/05 Mental status back to baseline Back to Plavix, Eliquis #NSTEMI, likely demand type II in setting of sepsis *downtrending #Acute heart failure with reduced ejection fraction, 2/2 stress induced cardiomyopathy #Chronic Right Heart Failure #Mild nonobstructive CAD #LBBB #Prolonged QT Troponin Peaked 2097, ECHO with septal wall motion, global hypokinesis of LV EKG shows left bundle branch block and wide QRS rhythm. Left bundle marlene block seems to be old s/p LHC 07/26, no obstructive lesions contributing to presentation Hold lasix at this time given sepsis, monitor fluid status, strict IOs daily weights Hold antihypertensives at this time, including home coreg Cardiology on consult, appreciate recommendations Avoid QT prolongating agents Start Metoprolol XL 50mg BID Continue spironolactone 25mg daily Start entresto BID s/p 1x lasix 40mg IV and reassess need for further diuresis Start K supplementation 08/05 patient developed orthostatic hypotension with Lasix 80mg daily- held for 2 days Lasix resumed at 40mg po daily continue spironolactone Continue metoprolol, Entresto cardiology Monitor BP closely repeat BMP in 2-3 days, then monitor regularly #Paroxysmal Atrial Fibrillation - on Eliquis - Cardiology on consult -As above #Acute on chronic hypoxic respiratory failure, iso sepsis and bilateral pleural effusions #Nocturnal Hypoxia #COPD/Asthma -Wears 2L qhs O2, uses prn - No wheezing, does not appear to be in exacerbation Continue montelukast Continue home inhalers Nebs ATC and as needed ABG with good oxygenation, no significant retention of CO2 08/05 weaned off oxygen Currently on room air, 96% #XIN on CKD stage IIIa*improved #Acute pyelonephritis 08/05 resolved Creatinine 0.84 #Chronic hip pain 2/2 bilateral greater trochanteric bursitis -Received steroid injections with Rheum 05/28/2023 -Nonsedating, delirium inducing pain management at this time -CTM, tylenol prn #Hypothyroidism TSH wnl on admission On Synthyroid #Migraines stable DVT prophylaxis: SCDs for now Dispo: transition to [facility] ff up with [employer] in 1-2 weeks Discharge Exam General- oriented x 3, not in distress, speaks in sentences with no effort or accessory muscle use Eyes- anicteric Neck- no JVD Lungs- clear breath sounds bilaterally, no rales/wheezes Heart- normal rate, regular rhythm; no murmurs Abdomen- normal bowel sounds, nondistended, soft, nontender Extremities- no pretibial edema, no calf tenderness Neuro- alert, oriented x 3; no gross focal neurologic deficits Skin- warm & dry Updated Medication List Medication Instructions Recorded Confirmed Type albuterol sulfate 90 mcg/actuation 2 puff inhalation Q4 PRN Shortness 11/10/18 07/26/23 History aerosol inhaler (Ventolin HFA) Of Breath Or Wheezing montelukast 10 mg tablet 10 mg PO HS 11/10/18 07/26/23 History pantoprazole 40 mg tablet,delayed 40 mg PO DAILY 07/22/19 07/26/23 History release atorvastatin 20 mg tablet 20 mg PO DAILY 10/11/19 07/26/23 History levothyroxine 50 mcg tablet 50 mcg PO DAILYBB 01/15/20 07/26/23 History albuterol sulfate 2.5 mg/3 mL 2.5 mg inhalation Q4H PRN Wheezing 01/06/21 History (0.083 %) solution for nebulization cholecalciferol (vitamin D3) 25 25 mcg PO DAILY 01/06/21 07/26/23 History mcg (1,000 unit) capsule duloxetine 60 mg capsule,delayed 60 mg PO BID 03/07/22 07/26/23 History release fluticasone 100 mcg-salmeterol 50 1 inh inhalation BID 03/07/22 07/26/23 History mcg/dose blistr powdr for inhalation (Advair Diskus) iron,carbonyl 65 mg-vitamin C 125 1 tab PO DAILY 03/07/22 07/26/23 History mg tablet,delayed release (Vitron-C) apixaban 5 mg tablet (Eliquis) 5 mg PO BID #60 tabs 01/03/23 07/26/23 Rx clopidogrel 75 mg tablet 75 mg PO QAM #30 tabs 01/03/23 07/26/23 Rx acetaminophen 325 mg tablet 650 mg PO Q6H PRN Pain 07/26/23 07/26/23 History (Tylenol) gabapentin 300 mg capsule 300 mg PO TID 07/26/23 07/26/23 History lasmiditan 50 mg tablet (Reyvow) 50 mg PO DIRECTED PRN Migraine 07/26/23 07/26/23 History Headache lidocaine 5 % topical patch 1 patch topical DAILY 07/26/23 07/26/23 History tramadol 50 mg tablet 50 mg PO BID PRN Pain 07/26/23 07/26/23 History ceftriaxone 2 gram intravenous 2 g IV DAILY 6 days 08/05/23 Rx solution ferrous sulfate 325 mg (65 mg 325 mg PO DAILY 30 days #30 tabs 08/05/23 Rx iron) tablet,delayed release furosemide 40 mg tablet 40 mg PO QAM 30 days #30 tabs 08/05/23 Rx magnesium oxide 400 mg (241.3 mg 400 mg PO BID 30 days #60 tabs 08/05/23 Rx magnesium) tablet metoprolol succinate 50 mg 50 mg PO BID 30 days #60 tabs 08/05/23 Rx tablet,extended release 24 hr miconazole nitrate 2 % topical 1 applic EXT BID 7 days #28 grams 08/05/23 Rx cream potassium chloride 20 mEq 20 meq PO BID 30 days #60 tabs 08/05/23 Rx tablet,extended release(part/cryst) sacubitril 24 mg-valsartan 26 mg 1 tab PO BID #30 tabs 08/05/23 Rx tablet (Entresto) spironolactone 25 mg tablet 25 mg PO QAM 30 days #30 tabs 08/05/23 Rx Hospital Stay Data Consultations 07/26/23 05:28 ED Decision to Admit Stat 07/26/23 08:00 Consult Cardiology Routine 07/27/23 05:41 Consult Chief Engineer Routine 07/28/23 12:20 Consult Infectious Diseases Routine Procedures Performed Operation Date: 07/26/23 16:00 Actual Procedures s Cineradiography w/Routine Exam - Aiden Grimes MD p Cath, Coronaries ONLY (no LV) - Aiden Grimes MD s Ultrasound Vascular Access - Aiden Grimes MD s Placement Art Occlusive Device - Aiden Grimes MD Diagnostic Imagining Performed Laboratory Results WBC 7.08 K/ul (4.8-10.8) 08/03/23 04:52 RBC 2.46 M/uL (4.20-5.40) L 08/03/23 04:52 Hgb 8.7 g/dl (12.0-16.0) L 08/03/23 04:52 POC Hgb 7.8 g/dl (12.0-16.0) L 07/27/23 10:58 Hct 27.8 % (37.0-47.0) L 08/03/23 04:52 POC Hct 23 % (37-47) L 07/27/23 10:58 MCV 113.0 fL (80.0-100.0) H 08/03/23 04:52 MCH 35.4 pg (25.0-34.0) H 08/03/23 04:52 MCHC 31.3 g/dL (32.0-36.0) L 08/03/23 04:52 RDW Std Deviation 60.1 fL (36.4-46.3) H 08/03/23 04:52 RDW Coeff of Vijay 14.4 % (11.5-14.5) 08/03/23 04:52 Plt Count 218 K/uL (130-400) 08/03/23 04:52 MPV 10.6 fL (9.4-12.4) 08/03/23 04:52 Immature Gran % (Auto) 0.8 % 08/03/23 04:52 Neut % (Auto) 66.2 % 08/03/23 04:52 Lymph % (Auto) 24.6 % 08/03/23 04:52 Gilchrist % (Auto) 5.9 % 08/03/23 04:52 Eos % (Auto) 2.1 % 08/03/23 04:52 Baso % (Auto) 0.4 % 08/03/23 04:52 Reticulocyte % (Auto) 1.6 % (0.5-2.0) 07/28/23 07:16 Neut # (Auto) 4.68 K/uL (1.40-6.50) 08/03/23 04:52 Lymph # (Auto) 1.74 K/uL (1.20-3.40) 08/03/23 04:52 Gilchrist # (Auto) 0.42 K/uL (0.11-0.59) 08/03/23 04:52 Eos # (Auto) 0.15 K/uL (0.00-0.50) 08/03/23 04:52 Baso # (Auto) 0.03 K/uL (0.00-0.20) 08/03/23 04:52 Reticulocyte # 0.03 10^6/uL (0.02-0.10) 07/28/23 07:16 Immature Gran # (Auto) 0.06 K/uL (0.01-0.20) 08/03/23 04:52 Toxic Vacuolation 1+ 07/27/23 02:43 Dohle Bodies 1+ 07/28/23 04:23 Platelet Estimate Decreased (Normal) L 07/27/23 02:43 Polychromasia 1+ 07/28/23 04:23 Macrocytosis Present 08/03/23 04:52 Peripher Smr Path Cons 07/28/23 04:23 Immature Retic Fraction 16.7 % (2.3-15.9) H 07/28/23 07:16 Retic Hgb Content 32.6 pg (28.2-36.6) 07/28/23 07:16 Haptoglobin 136 mg/dL (43-212) 07/28/23 07:16 PT 12.3 Seconds (9.0-12.0) H 07/26/23 05:26 INR 1.1 (0.9-1.1) 07/26/23 05:26 APTT 26 Seconds (21-31) 07/26/23 05:26 PTT Ratio 0.9 07/26/23 05:26 Heparin Anti-Xa, Unfract > 1.50 IU/ml (0.3-0.7) H* 07/26/23 15:07 Sample Site R Brachial 07/27/23 10:58 POC pH 7.37 (7.35-7.45) 07/27/23 10:58 POC pCO2 43 mmHg (35-46) 07/27/23 10:58 POC pO2 115 mmHg (80-95) H 07/27/23 10:58 POC HCO3 25 louis/L (19-24) H 07/27/23 10:58 POC Total CO2 26 mmol/L (24-31) 07/27/23 10:58 POC Base Excess 0.0 louis/L (-9-1.8) 07/27/23 10:58 ABG pH (Temp Correct) 7.374 (7.35-7.45) 07/27/23 10:58 ABG pCO2 (Temp Corrct 43 mmHg (35-46) 07/27/23 10:58 POC ABG pO2 at Pt Temp 114 07/27/23 10:58 POC ABG O2 Sat 98.0 % (90-95) H 07/27/23 10:58 Eliecer Test Pass 07/27/23 10:58 VBG pH 7.39 (7.36-7.41) 07/27/23 02:46 VBG pCO2 49 mmHg (38-50) 07/27/23 02:46 VBG pO2 21 mmHg 07/27/23 02:46 VBG HCO3 30 mmol/L 07/27/23 02:46 VBG O2 Saturation < 60.0 % 07/27/23 02:46 VBG Base Excess 3.7 mEq/L 07/27/23 02:46 O2 Delivery Device Cannula 07/27/23 10:58 POC Sodium 138 mmol/L (135-144) 07/27/23 10:58 Sodium 139 mmol/L (136-145) 08/05/23 05:25 POC Potassium 3.8 mmol/L (3.3-5.0) 07/27/23 10:58 Potassium 4.2 mmol/L (3.5-5.1) 08/05/23 05:25 POC Chloride 102 mmol/L (101-112) 07/26/23 03:37 Chloride 112 mmol/L (98-107) H 08/05/23 05:25 Carbon Dioxide 22 mmol/L (21-32) 08/05/23 05:25 POC Total CO2 30 mmol/L (24-31) 07/26/23 03:37 Anion Gap 5 (3-11) 08/05/23 05:25 POC Anion Gap 13.0 mmol/L (16-25) L 07/26/23 03:37 POC BUN 20 mg/dl (7-18) H 07/26/23 03:37 BUN 11 mg/dl (6-23) 08/05/23 05:25 Creatinine 0.74 mg/dl (0.6-1.2) 08/05/23 05:25 POC Creatinine 1.3 mg/dl (0.6-1.3) 07/26/23 03:37 Est Cr Clr Drug Dosing 71.6 ml/min 08/05/23 05:25 Est GFR ( Amer) 88.1 ml/min 08/05/23 05:25 Est GFR (Non-Af Amer) 76.0 ml/min 08/05/23 05:25 BUN/Creatinine Ratio 14.9 (10-20) 08/05/23 05:25 Glucose 83 mg/dl (70-99(Fasting)) 08/05/23 05:25 POC Glucose 103 mg/dl (70-99) H 08/01/23 06:13 POC Glucose (other) 75 mg/dl (70-99) 07/26/23 03:37 Lactate 1.2 mmol/L (0.4-2.0) 07/27/23 06:52 Calcium 7.3 mg/dl (8.6-10.3) L 08/05/23 05:25 POC Ioniz Calcium [place] 1.06 mmol/l (1.12-1.32) L 07/26/23 03:37 Phosphorus 3.7 mg/dl (2.5-4.9) D 07/31/23 05:26 Magnesium 1.5 mg/dl (1.7-2.4) L 08/05/23 05:25 Iron 15 mcg/dl (35-150) L 07/28/23 04:23 TIBC 115 mcg/dl (250-450) L 07/28/23 04:23 Unsaturated IBC 100 mcg/dl (155-355) L 07/28/23 04:23 Transferrin % Sat 13 % (15-50) L 07/28/23 04:23 Ferritin 161.7 ng/ml (8-388) 07/28/23 04:23 Total Bilirubin 1.0 mg/dl (0.2-1.0) D 07/28/23 07:16 Direct Bilirubin 0.4 mg/dl (0-0.2) H 07/28/23 07:16 AST 31 U/L (13-39) 07/27/23 02:43 ALT 10 U/L (7-52) 07/27/23 02:43 Alkaline Phosphatase 72 U/L (34-104) 07/27/23 02:43 Lactate Dehydrogenase 181 U/L (86-244) 07/28/23 07:16 Troponin I High Sens 1962.1 pg/ml (0-14) H* 07/27/23 02:43 Total Protein 5.2 gm/dl (6.0-8.3) L 07/27/23 02:43 Albumin 2.8 gm/dl (3.4-5.0) L 07/27/23 02:43 Globulin 2.4 gm/dl (2.5-4.0) L 07/27/23 02:43 Albumin/Globulin Ratio 1.2 (0.9-2) 07/27/23 02:43 Lipase 4 U/L (11-82) L 07/26/23 03:24 Serotonin Release Assay TNP 07/27/23 07:43 Vitamin B12 432 pg/ml (180-914) 07/28/23 04:23 25-OH Vitamin D Total 67.6 ng/ml (30-100) 07/26/23 09:39 Folate 8.82 ng/ml (>5.38) 07/28/23 04:23 Procalcitonin 41.70 ng/ml (0-0.5) H 07/26/23 15:08 TSH 1.262 uIu/ml (0.300-4.500) 07/27/23 06:52 Random Cortisol 25.20 mcg/dl 07/27/23 06:52 Urine Color Yellow 07/27/23 Unknown Urine Appearance Turbid (Clear) A 07/27/23 Unknown Urine pH 7.0 (4.5-7.5) 07/27/23 Unknown Ur Specific [place] 1.021 (1.000-1.030) 07/27/23 Unknown Urine Protein 1+ (Negative) H 07/27/23 Unknown Urine Glucose (UA) Negative (Negative) 07/27/23 Unknown Urine Ketones Negative (Negative) 07/27/23 Unknown Urine Blood 1+ (Negative) H 07/27/23 Unknown Urine Nitrite Positive (Negative) A 07/27/23 Unknown Urine Bilirubin Negative (Negative) 07/27/23 Unknown Urine Urobilinogen Negative (Negative) 07/27/23 Unknown Ur Leukocyte Esterase 3+ (Negative) H 07/27/23 Unknown Urine WBC (Auto) >30 /hpf (0-5) H 07/27/23 Unknown Urine RBC (Auto) 5-10 /hpf (0-4) H 07/27/23 Unknown U Hyaline Cast (Auto) 1-5 /lpf (0-5) 07/27/23 Unknown U Epithel Cells (Auto) 20-30 /lpf (0-5) H 07/27/23 Unknown Urine Bacteria (Auto) Negative (Negative) 07/27/23 Unknown Urine Yeast Budding (None Prsent) A 07/27/23 Unknown Nasal Screen MRSA (PCR) Positive (Negative) A 07/26/23 Unknown Random Vancomycin 15.7 mcg/ml (10-20) 07/28/23 04:23 Heparin Depend Plt Ab See Scanned Report 07/27/23 07:43 MARIO UFH Low Dose 0.1 7 % Release 07/27/23 07:43 MARIO UFH Low Dose 0.5 9 % Release 07/27/23 07:43 MARIO UFH High Dose 6 % Release 07/27/23 07:43 MARIO Unfract Heparin Negative (Negative) 07/27/23 07:43 Anaplasma Smear See Comment 07/27/23 02:43 Lyme Disease IgG Ab Negative (Negative) 07/26/23 15:08 Lyme Disease IgM Ab Negative (Negative) 07/26/23 15:08 Enterobacterales (PCR) DETECTED (NotDetected) A 07/26/23 03:27 E. coli (PCR) DETECTED (NotDetected) A 07/26/23 03:27 mcr-1 Colistin Res Gene PCR Not Detected (NotDetected) 07/26/23 03:27 blaIMP Car res Gene PCR Not Detected (NotDetected) 07/26/23 03:27 KPC-Carbap Res Gene PCR Not Detected (NotDetected) 07/26/23 03:27 blaNDM Car Res Gene PCR Not Detected (NotDetected) 07/26/23 03:27 OXA-48 Carbapenem Resis Gene (PCR) Not Detected (NotDetected) 07/26/23 03:27 blaVIM Car Res Gene PCR Not Detected (NotDetected) 07/26/23 03:27 CTX-M Gene Resistance (PCR) Not Detected (NotDetected) 07/26/23 03:27 Bld Cult ID Panel PCR See PCR Comment (NotDetected) 07/26/23 03:27 Blood Type A Positive 07/27/23 07:25 Antibody Screen NEGATIVE 07/27/23 07:[address] 07/27/23 03:01 CT OF THE HEAD WITHOUT CONTRAST CLINICAL HISTORY: Altered mental status. COMPARISON STUDY: Head CT and MRI of the brain January 01, 2023. CT DOSE: 2857.42 mGy.cm TECHNIQUE: Helical axial images of the head were obtained without IV contrast. Automated exposure control was utilized for the study. A dose lowering technique was utilized adhering to the principles of ALARA. FINDINGS: This exam is moderately compromised by motion artifact. No acute intracranial hemorrhage, midline shift or mass effect is present. The ventricular system is stable. White matter hypodensities suggest small vessel disease. These are unchanged. The basal cisterns are patent. No extra-axial collections are present. There are no findings to suggest acute dural sinus thrombosis or acute territorial infarct. IMPRESSION: 1. No acute intracranial findings. No change in appearance of the brain. 2. Exam moderately compromised by motion artifact. ACT 112: Negative or not required by law. Electronically signed by: Shon Rushing M.D. 07/27/2023 6:36 AM Abdomen/Pelvis CT 07/27/23 03:[address] WITHOUT CONTRAST CT DOSE: HISTORY: sepsis.bactermia. xin. TECHNIQUE: Multiaxial CT images of the abdomen and pelvis were performed without contrast. A dose lowering technique was utilized adhering to the principles of ALARA. COMPARISON STUDY: Abdomen pelvis CT 03/28/2022. FINDINGS: There are chronic compression deformities again noted at T12 and L3. The T12 compression deformity demonstrates 4 mm of retropulsion, unchanged. No acute fractures identified. Elevated right hemidiaphragm with right lower lobe consolidation. This favors atelectasis. A pneumonia could also have a similar appearance. Mild densities within the left lung base also favor atelectasis. No pneumoperitoneum. No pneumatosis. The heart is mildly enlarged. The unenhanced liver, spleen, and adrenal glands are unremarkable. Intra and extra hepatic bile duct dilatation persists. Prior cholecystectomy. The pancreas remains atrophic. Mild bilateral perinephric edema again noted. Residual contrast within the urinary system from recent catheterization is noted. Stable rim calcified hypode nse lesion within the right kidney which may represent a cyst or chronic subcapsular collection. No hydronephrosis. Vascular calcifications are noted. Normal caliber abdominal aorta. No retroperitoneal or pelvic lymphadenopathy. Small hematoma within the right inguinal region extending into the right extraperitoneal space adjacent to the distal iliac vessels. This measures up to 3 cm in thickness. No bladder wall thickening. Prior hysterectomy. Suboptimal evaluation for bowel pathology due to the lack of intravenous and oral contrast. However, there is no definite bowel wall thickening or obstruction. Colonic diverticulosis. No evidence for acute diverticulitis. Trace bilateral pleural effusions. IMPRESSION: 1. Small right inguinal/extraperitoneal hematoma measuring up to 3 mm in thic kness. This could be due to the recent catheterization. 2. No bowel wall thickening or obstruction. 3. No hydronephrosis. 4. Trace bilateral pleural effusions. 5. Consolidation within the base of the right lower lobe may represent atelectasis or a pneumonia. 6. Additional findings as described above. ACT 112: Negative or not required by law. Electronically signed by: Clyde Jensen M.D. 07/27/2023 7:37 AM Chest X-Ray 07/27/23 06:24 XR chest 1V portable HISTORY: Post central line insertion COMPARISON: Chest 07/26/2023. FINDINGS: Right jugular central venous catheter terminates at the expected location of the SVC. No pneumothorax. The heart remains enlarged. There is chronic elevation of the right hemidiaphragm. Bibasilar linear densities persist and favor subsegmental atelectasis. No evidence for pulmonary edema. No new focal lung consolidations. Advanced degenerative changes within the shoulders. IMPRESSION: Right jugular central venous catheter terminates at the SVC. No pneumothorax. ACT 112: Negative or not required by law. Electronically signed by: Clyde Jensen M.D. 07/27/2023 8:13 AM Pending Results Patient Have Any Pending Studies at Discharge: No Discharge Instructions Given to Patient (Per Discharging Provider) PLEASE SEE ACCOMPANYING HOSPITAL DISCHARGE SUMMARY FOR FULL DETAILS. PLEASE WATCH OUT FOR ORTHOSTATIC HYPOTENSION. REPEAT BMP AND MG IN 2-3 DAYS AND MONITOR REGULARLY. PROBIOTICS FOR 1 MONTH. Total Time Total Time Spent Total Time Spent (In Minutes): > 30 minutes
== END 2023-08-05 16:31 | DRG 871 ==
LOC: ED 02:58 → EDINP 05:49 → SUATTDRO 05:49 → EDINP 16:52 → 2S 17:47 → 1E 07-27 05:42 → 2W 07-30 19:08
PROC: CLB.CCO (2023-07-26 16:00)

== ENCOUNTER 2023-08-20 09:40 | Inpatient (IN) ==
[2023-08-20] MEDS ORDERED: NOREPINEPHRINE/D5W 4 MG/250 ML IV ONE (09:42)
[2023-08-20] MEDS ORDERED: CEFEPIME 2,000 MG/20 ML VIAL IV STA (09:48)
--- NOTE | 2023-08-20 09:54 | Emergency Department Note ---
Impression & Plan Septic shock, XIN (acute kidney injury), Acute UTI (urinary tract infection), Elevated procalcitonin, Leukocytosis, Non-ST elevation KS (NSTEMI), Influenza A, Shortness of breath ED Provider Note HISTORY OF PRESENT ILLNESS: Patient is an 83-year-old female presenting with hypotension and respiratory distress. Patient presents from [facility] where reportedly today she was found to be having difficulties breathing. She is found to be hypoxic on room air and was given 80 mg of IV Lasix for presumed CHF exacerbation. She was then found to be febrile and hypotensive. They called 911. Patient was given 12 mcg of IV epinephrine in push-dose aliquots and route for pressure support. Patient's blood pressure has been in the 70s systolic. On arrival to the ER, the patient reports she feels like she cannot breathe. Denies any chest pain. Patient is alert and oriented x 3. She reports she is DNR/DNI. Documentation from the facility shows that the patient is influenza A positive. ROS: as above PHYSICAL EXAM: Constitutional: Patient appears in no acute distress. HENT: Head: Normocephalic and atraumatic. Eyes: EOMI, PERRL Mouth/Throat: Mucous membranes moist. Neck: Trachea midline. Neck supple. Cardiovascular: RRR, No murmurs, rubs or gallops. Intact distal pulses. Pulmonary/Chest: On BiPAP. Abdominal: Abdomen soft, no tenderness, rebound or guarding. Musculoskeletal: No edema, tenderness or deformity noted. Skin: Warm and dry. No rash, erythema, pallor or cyanosis Psychiatric: Appropriate mood and affect for situation. Neurological: Alert and keenly responsive. CN II-XII grossly intact, moving all extremities equally and fully. MDM: - Vitals signs showed hypotension - History obtained via EMS and patient. Patient presents with hypotension and difficulties breathing. Patient reportedly was noted to have difficulties breathing today on rounds at [facility]. She was found to be hypoxic and they gave her 80 mg of IV Lasix for her presumed CHF exacerbation. They called 911 and on EMS arrival the patient was found to be hypotensive. She was given 300 cc of normal saline and route and push dose epinephrine for blood pressure support. On arrival to the ER, the patient states she feels like she cannot breathe. Denies any chest pain or abdominal pain. - Chronic conditions affecting care: HTN; hypothyroidism; PE; CHF - Differential diagnoses include, but are not limited to: UTI; pneumonia; pulmonary edema; septic shock; electrolyte abnormality; dysrhythmia; ACS - Order placed for continuous cardiac monitoring. At this time, monitor showed rate of 85 bpm with normal sinus rhythm, per my interpretation. - External medical records reviewed. EMS run sheet was reviewed. Patient was hypotensive on arrival and was given push dose epi for blood pressure management - EKG interpreted by myself showed normal sinus rhythm. Noted on the left bundle branch block. Rate 75 bpm. QTc 458. No acute ischemic changes. Patient was noted to have a left bundle branch block on EKG from 07/28/2023. - Laboratory workup interpreted by myself showed leukocytosis (WBC 15.66) with left shift; stable electrolytes; XIN (cr 1.81 - baseline 0.9); hypocalcemia (Ca 7.9); elevated troponin (66.2); elevated procalcitonin (15.58); normal lactate - VBG grossly normal - CXR negative for pneumonia, per my interpretation - UA shows evidence of infection. - Viral respiratory panel positive for influenza A. - Blood cultures obtained - Given 2L NS in ER for sepsis fluid resuscitation. - Patient started on cefepime on arrival for sepsis coverage. Vancomycin initially ordered. Zosyn ordered per hospitalist. - Discussion was had with child daycare worker about patient's case and need for admission - Hospitalist consulted for admission - Patient admitted to [facility] for further evaluation and management. I have personally spent 41 minutes of critical care time in the direct management of this patient. This includes bedside care, interpretation of diagnostic studies, and testing, discussion with consultants, patient, and family members, and other required patient management activities. This 41 minutes is in excess of all separately billable procedures. ASSESSMENT AND PLAN: Diagnosis: septic shock; UTI; elevated procalcitonin; XIN; leukocytosis; NSTEMI; influenza A; shortness of breath Plan: admit Past Med/Surg History Medical History (Updated 08/20/23 @ 14:48 by Amy Marte MD) Influenza A Compensated respiratory acidosis Acute kidney injury superimposed on CKD Complicated UTI (urinary tract infection) Anemia E coli bacteremia Acute kidney injury Abnormal urinalysis Chronic left hip pain Diffuse myofascial pain syndrome Chronic anticoagulation Opioid dependence History of pulmonary embolism Pulmonary edema History of KS (myocardial infarction) 2017 - FOLLOWS W/ DR. JACOBSEN On anticoagulant therapy History of endometriosis Osteoporosis Osteoarthritis Migraine Poor historian History of DVT (deep vein thrombosis) RLE - 20 YEARS AGO FOLLOWING INJURY On home oxygen therapy 2 LPM 02 QHS Sleep apnea NO DEVICE Hypertension Hypothyroidism Asthma USES PRN INH 1 X WK Pulmonary embolism (10/10/12) 20 YEARS AGO AFTER INJURY 30 YEARS AGO - POST OP CHOLEYCYSTECTOMY ON WARFARIN Atrial flutter PT COULD NOT CONFIRM Surgical History History of cardiac cath 2018 - [place] - NO STENTS History of left knee surgery History of tubal ligation History of section History of total abdominal hysterectomy and bilateral salpingo-oophorectomy History of appendectomy History of cholecystectomy History of cataract surgery History of tonsillectomy History of esophagogastroduodenoscopy (EGD) History of colonoscopy Family History Father , age 51 of cancer Esophageal cancer Lung cancer Mother , age 103 No problems noted. 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 [employer] Feels Safe at Home: Yes Assistive Devices: Hospital Bed, Nebulizer, Oxygen - at Night and Walker Allergies Allergies Allergy/AdvReac Type Severity Reaction Status Date / Time aspirin Allergy Intermediate ITCHING Verified 08/20/23 11:42 Sulfa (Sulfonamide Allergy Unknown PER Verified 08/20/23 11:42 Antibiotics) GMG--HAPPENED IN HOSPITAL Home Meds Home Medications Medication Instructions Recorded Confirmed Sodium Chloride 9%, 1,000ml 75 ml IV .HOUR 08/20/23 08/20/23 acetaminophen 325 mg tablet 650 mg PO Q4 PRN Pain 08/20/23 08/20/23 (Tylenol) albuterol sulfate 90 mcg/actuation 2 puff inhalation Q4 PRN Shortness 08/20/23 08/20/23 aerosol inhaler Of Breath Or Wheezing apixaban 5 mg tablet (Eliquis) 5 mg PO BID 08/20/23 08/20/23 ascorbic acid (vitamin C) 500 mg 250 mg PO DAILY 08/20/23 08/20/23 tablet (Vitamin C) atorvastatin 20 mg tablet 20 mg PO DAILY 08/20/23 08/20/23 cefdinir 300 mg capsule 300 mg PO Q12H 08/20/23 08/20/23 cholecalciferol (vitamin D3) 25 25 mcg PO DAILY 08/20/23 08/20/23 mcg (1,000 unit) tablet clopidogrel 75 mg tablet 75 mg PO DAILY 08/20/23 08/20/23 dextromethorphan-guaifenesin 30 1 tab PO BID 08/20/23 08/20/23 mg-600 mg tablet extended [id number] hr (Mucinex DM) docusate sodium 100 mg capsule 100 mg PO BID 08/20/23 08/20/23 duloxetine 30 mg capsule,delayed 60 mg PO BID 08/20/23 08/20/23 release sprinkle ferrous sulfate 325 mg (65 mg 325 mg PO DAILY 08/20/23 08/20/23 iron) tablet fluticasone furoate 100 1 inh inhalation DAILY 08/20/23 08/20/23 mcg-vilanterol 25 mcg/dose inhalation powder (Breo Ellipta) gabapentin 300 mg capsule 300 mg PO TID 08/20/23 08/20/23 ipratropium 0.5 mg-albuterol 3 mg 3 ml inhalation QID 08/20/23 08/20/23 (2.5 mg base)/3 mL nebulization soln lasmiditan 50 mg tablet (Reyvow) 50 mg PO DAILY PRN Migraine 08/20/23 08/20/23 Headache levothyroxine 50 mcg tablet 50 mcg PO DAILY 08/20/23 08/20/23 magnesium oxide 400 mg PO BIDM 08/20/23 08/20/23 metoprolol succinate 50 mg 50 mg PO BID 08/20/23 08/20/23 tablet,extended release 24 hr miconazole nitrate 2 % topical 1 applic topical BID 08/20/23 08/20/23 powder montelukast 10 mg tablet 10 mg PO HS 08/20/23 08/20/23 ondansetron HCl 4 mg tablet 4 mg PO Q4 PRN Nausea 08/20/23 08/20/23 pantoprazole 40 mg tablet,delayed 40 mg PO QAM 08/20/23 08/20/23 release polyethylene glycol 3350 17 gram 17 g PO DAILY PRN Constipation 08/20/23 08/20/23 oral powder packet (Miralax) sennosides 8.6 mg-docusate sodium 1 tab-cap PO .DAILY@LUNCH PRN 08/20/23 08/20/23 50 mg tablet (Senokot-S) Constipation tramadol 50 mg tablet 50 mg PO Q12 PRN Pain 08/20/23 08/20/23 Results & Data (ED) Vital Signs Vital Signs - 24 hr 08/20/23 09:44 08/20/23 09:47 08/20/23 09:47 Temperature Temperature Source Pulse Rate 83 82 80 Pulse Rate [Apical] Pulse Rate from SpO2 Sensor 80 Pulse Rhythm [Apical] Respiratory Rate 25 H 25 H Respiratory Effort / Characteristics Respiratory Depth Respiratory Pattern Blood Pressure Blood Pressure [Left Arm] Blood Pressure Mean Blood Pressure Mean [Left Arm] Blood Pressure Position [Left Arm] Pulse Oximetry 92 Oxygen Delivery Method Fraction of Inspired Oxygen SaO2/FiO2 Ratio Sepsis Recent Fever Within 48 Hours Sepsis New/Unexplained Change in Mental Status Sepsis Action Taken by Nursing 08/20/23 09:49 08/20/23 09:49 08/20/23 09:50 Temperature 37.3 C Temperature Source Axillary Pulse Rate 77 77 Pulse Rate [Apical] Pulse Rate from SpO2 Sensor 79 Pulse Rhythm [Apical] Respiratory Rate 20 17 Respiratory Effort / Characteristics Non-Labored Respiratory Depth Respiratory Pattern Blood Pressure 70/53 L Blood Pressure [Left Arm] Blood Pressure Mean 58 Blood Pressure Mean [Left Arm] Blood Pressure Position [Left Arm] Pulse Oximetry 90 100 96 Oxygen Delivery Method Nasal CPAP CPAP Fraction of Inspired Oxygen 60 SaO2/FiO2 Ratio 150 Sepsis Recent Fever Within 48 Hours No Sepsis New/Unexplained Change in Mental Status Yes Sepsis Action Taken by Nursing Physician Notified 08/20/23 09:50 08/20/23 10:00 08/20/23 10:10 Temperature Temperature Source Pulse Rate 78 77 76 Pulse Rate [Apical] Pulse Rate from SpO2 Sensor 75 75 Pulse Rhythm [Apical] Respiratory Rate 17 20 17 Respiratory Effort / Characteristics Respiratory Depth Respiratory Pattern Blood Pressure 90/52 L Blood Pressure [Left Arm] Blood Pressure Mean 64 Blood Pressure Mean [Left Arm] Blood Pressure Position [Left Arm] Pulse Oximetry 95 93 100 Oxygen Delivery Method Fraction of Inspired Oxygen 50 SaO2/FiO2 Ratio Sepsis Recent Fever Within 48 Hours Sepsis New/Unexplained Change in Mental Status Sepsis Action Taken by Nursing 08/20/23 10:14 08/20/23 10:14 08/20/23 10:20 Temperature Temperature Source Pulse Rate 74 Pulse Rate [Apical] Pulse Rate from SpO2 Sensor 75 Pulse Rhythm [Apical] Respiratory Rate 17 Respiratory Effort / Characteristics Respiratory Depth Respiratory Pattern Blood Pressure 90/52 L 88/54 L Blood Pressure [Left Arm] Blood Pressure Mean 59 68 Blood Pressure Mean [Left Arm] Blood Pressure Position [Left Arm] Pulse Oximetry 95 Oxygen Delivery Method Fraction of Inspired Oxygen SaO2/FiO2 Ratio Sepsis Recent Fever Within 48 Hours Sepsis New/Unexplained Change in Mental Status Sepsis Action Taken by Nursing 08/20/23 10:20 08/20/23 10:30 08/20/23 10:30 Temperature Temperature Source Pulse Rate 74 73 Pulse Rate [Apical] Pulse Rate from SpO2 Sensor 76 76 Pulse Rhythm [Apical] Respiratory Rate 24 21 Respiratory Effort / Characteristics Respiratory Depth Respiratory Pattern Blood Pressure 93/43 L Blood Pressure [Left Arm] Blood Pressure Mean 51 Blood Pressure Mean [Left Arm] Blood Pressure Position [Left Arm] Pulse Oximetry 94 90 Oxygen Delivery Method CPAP Fraction of Inspired Oxygen SaO2/FiO2 Ratio Sepsis Recent Fever Within 48 Hours Sepsis New/Unexplained Change in Mental Status Sepsis Action Taken by Nursing 08/20/23 10:35 08/20/23 10:37 08/20/23 11:00 Temperature Temperature Source Pulse Rate Pulse Rate [Apical] 73 76 Pulse Rate from SpO2 Sensor Pulse Rhythm [Apical] Regular Respiratory Rate 22 16 Respiratory Effort / Characteristics Non-Labored Spontaneous Respiratory Depth Normal Respiratory Pattern Blood Pressure Blood Pressure [Left Arm] 101/49 L 105/49 L Blood Pressure Mean Blood Pressure Mean [Left Arm] 66 67 Blood Pressure Position [Left Arm] Pulse Oximetry 94 95 Oxygen Delivery Method Nasal CPAP BiPAP Fraction of Inspired Oxygen 50 SaO2/FiO2 Ratio Sepsis Recent Fever Within 48 Hours Sepsis New/Unexplained Change in Mental Status Sepsis Action Taken by Nursing 08/20/23 11:10 08/20/23 11:15 08/20/23 11:45 Temperature Temperature Source Pulse Rate Pulse Rate [Apical] 73 74 73 Pulse Rate from SpO2 Sensor Pulse Rhythm [Apical] Respiratory Rate 19 20 19 Respiratory Effort / Characteristics Non-Labored Spontaneous Non-Labored Spontaneous Non-Labored Spontaneous Respiratory Depth Normal Normal Normal Respiratory Pattern Regular Regular Blood Pressure Blood Pressure [Left Arm] 112/55 L 113/57 L 117/64 Blood Pressure Mean Blood Pressure Mean [Left Arm] 74 75 81 Blood Pressure Position [Left Arm] Pulse Oximetry 96 95 94 Oxygen Delivery Method BiPAP BiPAP BiPAP Fraction of Inspired Oxygen SaO2/FiO2 Ratio Sepsis Recent Fever Within 48 Hours Sepsis New/Unexplained Change in Mental Status Sepsis Action Taken by Nursing 08/20/23 12:10 08/20/23 12:15 08/20/23 12:20 Temperature Temperature Source Pulse Rate Pulse Rate [Apical] 76 75 74 Pulse Rate from SpO2 Sensor Pulse Rhythm [Apical] Regular Respiratory Rate 21 20 21 Respiratory Effort / Characteristics Non-Labored Spontaneous Non-Labored Spontaneous Non-Labored Spontaneous Respiratory Depth Normal Normal Normal Respiratory Pattern Regular Regular Blood Pressure Blood Pressure [Left Arm] 144/76 H 99/60 L 116/73 Blood Pressure Mean Blood Pressure Mean [Left Arm] 98 73 87 Blood Pressure Position [Left Arm] Semi-fowlers Semi-fowlers Pulse Oximetry 99 93 98 Oxygen Delivery Method BiPAP BiPAP BiPAP Fraction of Inspired Oxygen SaO2/FiO2 Ratio Sepsis Recent Fever Within 48 Hours Sepsis New/Unexplained Change in Mental Status Sepsis Action Taken by Nursing 08/20/23 12:30 08/20/23 12:35 08/20/23 12:40 Temperature Temperature Source Pulse Rate Pulse Rate [Apical] 75 71 70 Pulse Rate from SpO2 Sensor Pulse Rhythm [Apical] Respiratory Rate 22 23 22 Respiratory Effort / Characteristics Non-Labored Spontaneous Non-Labored Spontaneous Non-Labored Spontaneous Respiratory Depth Normal Normal Normal Respiratory Pattern Regular Regular Blood Pressure Blood Pressure [Left Arm] 120/87 124/86 122/53 L Blood Pressure Mean Blood Pressure Mean [Left Arm] 98 98 76 Blood Pressure Position [Left Arm] Semi-fowlers Semi-fowlers Semi-fowlers Pulse Oximetry 93 95 96 Oxygen Delivery Method BiPAP BiPAP BiPAP Fraction of Inspired Oxygen SaO2/FiO2 Ratio Sepsis Recent Fever Within 48 Hours Sepsis New/Unexplained Change in Mental Status Sepsis Action Taken by Nursing 08/20/23 12:45 08/20/23 12:50 08/20/23 13:00 Temperature Temperature Source Pulse Rate Pulse Rate [Apical] 73 71 72 Pulse Rate from SpO2 Sensor Pulse Rhythm [Apical] Regular Regular Respiratory Rate 22 18 19 Respiratory Effort / Characteristics Non-Labored Spontaneous Non-Labored Spontaneous Non-Labored Spontaneous Respiratory Depth Normal Normal Normal Respiratory Pattern Regular Regular Regular Blood Pressure Blood Pressure [Left Arm] 98/72 L 121/63 97/51 L Blood Pressure Mean Blood Pressure Mean [Left Arm] 80 82 66 Blood Pressure Position [Left Arm] Semi-fowlers Semi-fowlers Pulse Oximetry 96 96 99 Oxygen Delivery Method BiPAP BiPAP BiPAP Fraction of Inspired Oxygen 50 50 SaO2/FiO2 Ratio 192 198 Sepsis Recent Fever Within 48 Hours Sepsis New/Unexplained Change in Mental Status Sepsis Action Taken by Nursing 08/20/23 13:05 08/20/23 13:10 08/20/23 13:15 Temperature Temperature Source Pulse Rate Pulse Rate [Apical] 72 71 75 Pulse Rate from SpO2 Sensor Pulse Rhythm [Apical] Regular Regular Regular Respiratory Rate 18 18 21 Respiratory Effort / Characteristics Non-Labored Spontaneous Non-Labored Spontaneous Non-Labored Spontaneous Respiratory Depth Normal Normal Normal Respiratory Pattern Regular Regular Blood Pressure Blood Pressure [Left Arm] 94/45 L 109/58 L 114/55 L Blood Pressure Mean Blood Pressure Mean [Left Arm] 61 75 74 Blood Pressure Position [Left Arm] Semi-fowlers Semi-fowlers Pulse Oximetry 93 96 95 Oxygen Delivery Method Room Air BiPAP BiPAP Fraction of Inspired Oxygen 50 40 SaO2/FiO2 Ratio 186 237 Sepsis Recent Fever Within 48 Hours Sepsis New/Unexplained Change in Mental Status Sepsis Action Taken by Nursing Laboratory Data 08/20/23 09:57 08/20/23 09:57 Lab Results 08/20/23 08/20/23 08/20/23 Range/Units 09:57 10:04 10:12 WBC 15.66 H (4.8-10.8) K/ul RBC 2.43 L (4.20-5.40) M/uL Hgb 8.7 L (12.0-16.0) g/dl Hct 27.5 L (37.0-47.0) % MCV 113.2 H (80.0-100.0) fL MCH 35.8 H (25.0-34.0) pg MCHC 31.6 L (32.0-36.0) g/dL RDW Std Deviation 61.2 H (36.4-46.3) fL RDW Coeff of Vijay 14.7 H (11.5-14.5) % Plt Count 218 (130-400) K/uL MPV 10.7 (9.4-12.4) fL Immature Gran % (Auto) 1.5 % Neut % (Auto) 89.7 % Lymph % (Auto) 5.7 % [place] % (Auto) 2.9 % Eos % (Auto) 0.0 % Baso % (Auto) 0.2 % Neut # (Auto) 14.05 H (1.40-6.50) K/uL Lymph # (Auto) 0.89 L (1.20-3.40) K/uL [place] # (Auto) 0.45 (0.11-0.59) K/uL Eos # (Auto) 0.00 (0.00-0.50) K/uL Baso # (Auto) 0.03 (0.00-0.20) K/uL Immature Gran # (Auto) 0.24 H (0.01-0.20) K/uL Polychromasia 1+ Macrocytosis Present PT 14.4 H (9.0-12.0) Seconds INR 1.3 H (0.9-1.1) VBG pH 7.34 L (7.36-7.41) VBG pCO2 44 (38-50) mmHg VBG pO2 23 mmHg VBG HCO3 24 mmol/L VBG O2 Saturation < 60.0 % VBG Base Excess -2.2 mEq/L Sodium 135 L (136-145) mmol/L Potassium 4.9 (3.5-5.1) mmol/L Chloride 103 (98-107) mmol/L Carbon Dioxide 23 (21-32) mmol/L Anion Gap 9 (3-11) BUN 23 (6-23) mg/dl Creatinine 1.81 H (0.6-1.2) mg/dl Est Cr Clr Drug Dosing 25.0 ml/min Est GFR ( Amer) 29.9 ml/min Est GFR (Non-Af Amer) 25.8 ml/min BUN/Creatinine Ratio 12.7 (10-20) Glucose 70 (70-99(Fasting)) mg/dl Lactate 1.7 (0.4-2.0) mmol/L Calcium 7.9 L (8.6-10.3) mg/dl Magnesium 1.7 (1.7-2.4) mg/dl Total Bilirubin 1.2 H (0.2-1.0) mg/dl Direct Bilirubin 0.4 H (0-0.2) mg/dl AST 14 (13-39) U/L ALT 4 L (7-52) U/L Alkaline Phosphatase 52 (34-104) U/L Troponin I High Sens 66.2 H* (0-14) pg/ml Total Protein 5.9 L (6.0-8.3) gm/dl Albumin 2.8 L (3.4-5.0) gm/dl Procalcitonin 15.58 H (0-0.5) ng/ml Urine Color Dark Yellow Urine Appearance Turbid A (Clear) Urine pH 5.0 (4.5-7.5) Ur Specific [place] 1.018 (1.000-1.030) Urine Protein 1+ H (Negative) Urine Glucose (UA) Negative (Negative) Urine Ketones Trace H (Negative) Urine Blood 3+ H (Negative) Urine Nitrite Negative (Negative) Urine Bilirubin 1+ H (Negative) Urine Urobilinogen Negative (Negative) Ur Leukocyte Esterase 3+ H (Negative) Urine WBC (Auto) >30 H (0-5) /hpf Urine RBC (Auto) 10-30 H (0-4) /hpf U Hyaline Cast (Auto) 1-5 (0-5) /lpf U Epithel Cells (Auto) 20-30 H (0-5) /lpf Urine Bacteria (Auto) 1+ H (Negative) Urine Yeast Not Reportable Nasal Influ A H1 2009 PCR DETECTED A* (NotDetected) Adenovirus (PCR) Not Detected (NotDetected) B. pertussis DNA (PCR) Not Detected (NotDetected) B.parapertussis DNA PCR Not Detected (NotDetected) C. pneumoniae DNA (PCR) Not Detected (NotDetected) Coronavirus OC43 (PCR) Not Detected (NotDetected) Coronavirus HKU1 (PCR) Not Detected (NotDetected) Coronavirus 229E (PCR) Not Detected (NotDetected) SARS-CoV-2 (PCR) Not Detected (NotDetected) Coronavirus NL63 (PCR) Not Detected (NotDetected) Human Metapneumovir PCR Not Detected (NotDetected) Influenza Type B (PCR) Not Detected (NotDetected) M. pneumoniae (PCR) Not Detected (NotDetected) Parainfluenza 1 (PCR) Not Detected (NotDetected) Parainfluenza 2 (PCR) Not Detected (NotDetected) Parainfluenza 3 (PCR) Not Detected (NotDetected) Parainfluenza 4 (PCR) Not Detected (NotDetected) RSV (PCR) Not Detected (NotDetected) Entero/Rhino (PCR) Not Detected (NotDetected) 08/20/23 Range/Units 11:44 WBC (4.8-10.8) K/ul RBC (4.20-5.40) M/uL Hgb (12.0-16.0) g/dl Hct (37.0-47.0) % MCV (80.0-100.0) fL MCH (25.0-34.0) pg MCHC (32.0-36.0) g/dL RDW Std Deviation (36.4-46.3) fL RDW Coeff of Vijay (11.5-14.5) % Plt Count (130-400) K/uL MPV (9.4-12.4) fL Immature Gran % (Auto) % Neut % (Auto) % Lymph % (Auto) % [place] % (Auto) % Eos % (Auto) % Baso % (Auto) % Neut # (Auto) (1.40-6.50) K/uL Lymph # (Auto) (1.20-3.40) K/uL [place] # (Auto) (0.11-0.59) K/uL Eos # (Auto) (0.00-0.50) K/uL Baso # (Auto) (0.00-0.20) K/uL Immature Gran # (Auto) (0.01-0.20) K/uL Polychromasia Macrocytosis PT (9.0-12.0) Seconds INR (0.9-1.1) VBG pH (7.36-7.41) VBG pCO2 (38-50) mmHg VBG pO2 mmHg VBG HCO3 mmol/L VBG O2 Saturation % VBG Base Excess mEq/L Sodium (136-145) mmol/L Potassium (3.5-5.1) mmol/L Chloride (98-107) mmol/L Carbon Dioxide (21-32) mmol/L Anion Gap (3-11) BUN (6-23) mg/dl Creatinine (0.6-1.2) mg/dl Est Cr Clr Drug Dosing ml/min Est GFR ( Amer) ml/min Est GFR (Non-Af Amer) ml/min BUN/Creatinine Ratio (10-20) Glucose (70-99(Fasting)) mg/dl Lactate (0.4-2.0) mmol/L Calcium (8.6-10.3) mg/dl Magnesium (1.7-2.4) mg/dl Total Bilirubin (0.2-1.0) mg/dl Direct Bilirubin (0-0.2) mg/dl AST (13-39) U/L ALT (7-52) U/L Alkaline Phosphatase (34-104) U/L Troponin I High Sens 54.1 H* D (0-14) pg/ml Total Protein (6.0-8.3) gm/dl Albumin (3.4-5.0) gm/dl Procalcitonin (0-0.5) ng/ml Urine Color Urine Appearance (Clear) Urine pH (4.5-7.5) Ur Specific [place] (1.000-1.030) Urine Protein (Negative) Urine Glucose (UA) (Negative) Urine Ketones (Negative) Urine Blood (Negative) Urine Nitrite (Negative) Urine Bilirubin (Negative) Urine Urobilinogen (Negative) Ur Leukocyte Esterase (Negative) Urine WBC (Auto) (0-5) /hpf Urine RBC (Auto) (0-4) /hpf U Hyaline Cast (Auto) (0-5) /lpf U Epithel Cells (Auto) (0-5) /lpf Urine Bacteria (Auto) (Negative) Urine Yeast Nasal Influ A H1 2008 PCR (NotDetected) Adenovirus (PCR) (NotDetected) B. pertussis DNA (PCR) (NotDetected) B.parapertussis DNA PCR (NotDetected) C. pneumoniae DNA (PCR) (NotDetected) Coronavirus OC43 (PCR) (NotDetected) Coronavirus HKU1 (PCR) (NotDetected) Coronavirus 229E (PCR) (NotDetected) SARS-CoV-2 (PCR) (NotDetected) Coronavirus NL63 (PCR) (NotDetected) Human Metapneumovir PCR (NotDetected) Influenza Type B (PCR) (NotDetected) M. pneumoniae (PCR) (NotDetected) Parainfluenza 1 (PCR) (NotDetected) Parainfluenza 2 (PCR) (NotDetected) Parainfluenza 3 (PCR) (NotDetected) Parainfluenza 4 (PCR) (NotDetected) RSV (PCR) (NotDetected) Entero/Rhino (PCR) (NotDetected) Administered Medications Norepinephrine Bitartrate (Levophed/D5w) 4 mg in 250 mls @ 17.006 mls/hr IV .[id number] TRACI; Protocol Stop: 09/19/23 10:44 Last Titration: 08/20/23 13:08 Dose: 0.05 mcg/kg/min, 17 mls/hr Documented By: Titration: 08/20/23 13:00 Dose: 0 mcg/kg/min, 0 mls/hr Documented By: Titration: 08/20/23 12:07 Dose: 0.05 mcg/kg/min, 17 mls/hr Documented By: Titration: 08/20/23 11:02 Dose: 0.07 mcg/kg/min, 23.8 mls/hr Documented By: Admin: 08/20/23 10:49 Dose: 0.05 mcg/kg/min, 17 mls/hr Documented By: Co-signed By: JLT Discontinued Medications Sodium Chloride (Nss) 1,000 mls @ 999 mls/hr IV .Q1H1M TRACI Stop: 08/20/23 11:00 Last Infusion: 08/20/23 10:57 Dose: Infused Documented By: Admin: 08/20/23 09:52 Dose: 999 mls/hr Documented By: HS Cefepime HCl (Maxipime) 2,000 mg in 20 mls @ 5 mls/min IV NOW STA; Protocol Stop: 08/20/23 09:51 Last Admin: 08/20/23 10:11 Dose: 5 mls/min Documented By: Sodium Chloride (Nss) 1,000 mls @ 999 mls/hr IV .Q1H1M ONE Stop: 08/20/23 11:31 Last Infusion: 08/20/23 11:34 Dose: Infused Documented By: Admin: 08/20/23 10:33 Dose: 999 mls/hr Documented By: Vancomycin HCl 2,250 mg/ (Sodium Chloride) 545 mls @ 200 mls/hr IV NOW ONE Stop: 08/20/23 14:19 Last Infusion: 08/20/23 14:00 Dose: 200 mls/hr Documented By: Infusion: 08/20/23 13:21 Dose: 0 mls/hr Documented By: Admin: 08/20/23 12:04 Dose: 200 mls/hr Documented By: Piperacillin Sod/Tazobactam Sod (Zosyn) 4.5 gm in 100 mls @ 200 mls/hr IV NOW ONE Stop: 08/20/23 12:49 Last Infusion: 08/20/23 14:06 Dose: Infused Documented By: Admin: 08/20/23 13:21 Dose: 200 mls/hr Documented By: Norepinephrine Bitartrate (Norepinephrine/D5w 4 Mg/250 Ml) Confirm Administered Dose 4 mg IV .STK-MED ONE Stop: 08/20/23 09:43 Last Admin: 08/20/23 10:53 Dose: Not Given Documented By: Imaging Data Radiologist's Impression: Chest X-Ray 08/20/23 09:49 SINGLE VIEW CHEST CLINICAL HISTORY: Sepsis. FINDINGS: An AP, portable, upright chest radiograph is compared to study dated 07/27/2023 and correlated with chest CT dated 03/28/2022. The examination is degraded by portable technique and patient rotation. The heart is not enlarged noting atherosclerotic calcification of the thoracic aorta. The pulmonary vasculature is noncongested. Chronic interstitial thickening is similar to previous. There is chronic elevation of right hemidiaphragm with bibasilar atelectasis. No airspace consolidation typical for pneumonia or large pleural effusion is identified. No pneumothorax is seen. The skeletal structures are osteopenic. The bony thorax is grossly intact. Advanced arthritic change is seen in the shoulders. Cholecystectomy clips are noted in the right upper quadrant. IMPRESSION: No acute cardiopulmonary abnormality is identified. ACT 112: Negative or not required by law. Electronically signed by: Vladislav Curiel M.D. 08/20/2023 10:27 AM Discharge Plan Visit Data Chief Complaint: Confusion Stated Complaint: SOB, HYPOTENSION ED Provider: Amy Marte Discharge Problem: Septic shock, XIN (acute kidney injury), Acute UTI (urinary tract infection), Elevated procalcitonin, Leukocytosis, Non-ST elevation KS (NSTEMI), Influenza A, Shortness of breath Patient Disposition: Admitted As Inpatient Discharge Instructions Interventions: ED Discharge Assessment Last Done: 08/20/23 14:28
[2023-08-20] MEDS ORDERED: SODIUM CHLORIDE 0.9% 1,000 ML IV SCH (10:00)
[2023-08-20 10:21] LABS: Base Excess VBG -2.2 mEq/L; HCO3 VBG 24 mmol/L; Oxygen Saturation VBG < 60.0 %; PCO2 VBG 44 mmHg (38-50); PO2 VBG 23 mmHg; pH VBG 7.34 (7.36-7.41)
[2023-08-20 10:23] LABS: Hematocrit (blood only) 27.5 % (37.0-47.0); Hemoglobin 8.7 g/dl (12.0-16.0); Mean Corpuscular Hemoglobin 35.8 pg (25.0-34.0); Mean Corpuscular Hgb Conc 31.6 g/dL (32.0-36.0); Mean Corpuscular Volume 113.2 fL (80.0-100.0); Mean Platelet Volume 10.7 fL (9.4-12.4); Platelet Count 218 K/uL (130-400); RDW Coefficient of Variation 14.7 % (11.5-14.5); RDW Standard Deviation 61.2 fL (36.4-46.3); Red Blood Count 2.43 M/uL (4.20-5.40); White Blood Count 15.66 K/ul (4.8-10.8)
--- NOTE | 2023-08-20 10:29 | XRay Report ---
SINGLE VIEW CHEST CLINICAL HISTORY: Sepsis. FINDINGS: An AP, portable, upright chest radiograph is compared to study dated 07/27/2023 and correlat ed with chest CT dated 03/28/2022. The examination is degraded by portable technique and patient rotat ion. The heart is not enlarged noting atherosclerotic calcification of the thoracic aorta. The pulmo nary vasculature is noncongested. Chronic interstitial thickening is similar to previous. There is ch ronic elevation of right hemidiaphragm with bibasilar atelectasis. No airspace consolidation typical for pneumonia or large pleural effusion is identified. No pneumothorax is seen. The skeletal structur es are osteopenic. The bony thorax is grossly intact. Advanced arthritic change is seen in the should ers. Cholecystectomy clips are noted in the right upper quadrant. IMPRESSION: No acute cardiopulmonary abnormality is identified. ACT 112: Negative or not required by law. Electronically signed by: Vladislav Curiel M.D. 08/20/2023 10:27 AM
[2023-08-20] MEDS ORDERED: SODIUM CHLORIDE 0.9% 1,000 ML IV ONE (10:31)
[2023-08-20] MEDS ORDERED: STAT IV Infusion **Titration per Protocol STA (10:42)
[2023-08-20 10:43] LABS: Albumin Level 2.8 gm/dl (3.4-5.0); BUN Creatinine Ratio 12.7 (10-20); Bilirubin Direct 0.4 mg/dl (0-0.2); Bilirubin,Total 1.2 mg/dl (0.2-1.0); Calcium 7.9 mg/dl (8.6-10.3); Est GFR (African American) 29.9 ml/min; Est GFR (Non-African American) 25.8 ml/min; Magnesium 1.7 mg/dl (1.7-2.4); Potassium 4.9 mmol/L (3.5-5.1); Total Protein 5.9 gm/dl (6.0-8.3)
[2023-08-20 10:45] LABS: Appearance Urine Turbid (Clear); Blood Urine 3+ (Negative); Color Urine Dark Yellow; Epithelial Cell Urine Auto 20-30 /lpf (0-5); Glucose Urine UA Negative (Negative); Ketones Urine Trace (Negative); Leukocyte Esterase Urine 3+ (Negative); Nitrite Urine Negative (Negative); Protein Urine 1+ (Negative); Specific Gravity Urine 1.018 (1.000-1.030); Urobilinogen Urine Negative (Negative); WBC Urine Automated >30 /hpf (0-5)
[2023-08-20] MEDS: NOREPINEPHRINE/D5W 4 MG/250 ML PLCT IV SCH (10:49)
[2023-08-20 10:50] LABS: Bilirubin Urine 1+ (Negative)
[2023-08-20 10:52] LABS: Troponin I High Sensitivity 66.2 pg/ml (0-14)
[2023-08-20 11:01] LABS: INR 1.3 (0.9-1.1); Prothrombin Time 14.4 Seconds (9.0-12.0)
[2023-08-20 11:08] LABS: Adenovirus PCR Not Detected (NotDetected); Bordetella parapertussis PCR Not Detected (NotDetected); Bordetella pertussis PCR Not Detected (NotDetected); Chlamydia pneumoniae PCR Not Detected (NotDetected); Coronavirus 229E PCR Not Detected (NotDetected); Coronavirus CoV-2 (COVID19)PCR Not Detected (NotDetected); Coronavirus HKU1 PCR Not Detected (NotDetected); Coronavirus NL63 PCR Not Detected (NotDetected); Coronavirus OC43PCR Not Detected (NotDetected); Human Metapneumovirus PCR Not Detected (NotDetected); Influenza B PCR Not Detected (NotDetected); Mycoplasma pneumoniae PCR Not Detected (NotDetected); Parainfluenza Virus 1 PCR Not Detected (NotDetected); Parainfluenza Virus 2 PCR Not Detected (NotDetected); Parainfluenza Virus 3 PCR Not Detected (NotDetected); Parainfluenza Virus 4 PCR Not Detected (NotDetected); Respiratory Syncytial VirusPCR Not Detected (NotDetected); Rhinovirus/Enterovirus PCR Not Detected (NotDetected)
[2023-08-20 11:13] LABS: Bacteria Urine Automated 1+ (Negative)
[2023-08-20 11:16] LABS: Influenza A (H1 2009) PCR DETECTED (NotDetected)
[2023-08-20 11:16] LABS: Basophils # (auto) 0.03 K/uL (0.00-0.20); Basophils % (auto) 0.2 %; Immature Granulocytes # (auto) 0.24 K/uL (0.01-0.20); Immature Granulocytes % (auto) 1.5 %; Lymphocytes # (auto) 0.89 K/uL (1.20-3.40); Lymphocytes % (auto) 5.7 %; Macrocytosis Present; Monocytes # (auto) 0.45 K/uL (0.11-0.59); Monocytes % (auto) 2.9 %; Neutrophils # (auto) 14.05 K/uL (1.40-6.50); Neutrophils % (auto) 89.7 %; Polychromasia 1+
--- OUTSIDE RECORDS SUMMARY | 2023-08-20 11:35 | External Medical Summary ---
Author Name Unknown Address Unknown Organization [id number]:[facility] [place] [address] Laboratory Report Ordering Provider Test Date Status SHAI PRECIADO 08/16/2023 06:30:00 Final Observation Date Value Abnormality Reference (Units ) Status BUN 08/16/2023 06:30:00 19 6-20 (mg/dL) Final Creatinine 08/16/2023 06:30:00 1.5 Above high normal 0.5-1.0 (mg/dL) Final Glomerular filtration rate/1.73 sq M.predicted [Volume Rate/Area] in Serum, Plasma or Blood by Creatinine-based formula (CKD-EPI) 08/16/2023 06:30:00 34 Below low normal >=60 (mL/min) Final eGFR is calculated based on the CKD-EPI 2020 equation SODIUM 08/16/2023 06:30:00 133 Below low normal 135 -146 (mmol/L) Final Potassium 08/16/2023 06:30:00 4.6 3.5-5.1 (m mol/L) Final Cl 08/16/2023 06:30:00 98 98-107 (mm ol/L) Final CO2 08/16/2023 06:30:00 26 22-32 (mmo l/L) Final Anion gap 08/16/2023 06:30:00 9 7-15 (mmol /L) Final Glucose 08/16/2023 06:30:00 63 Below low normal 70- 120 (mg/dL) Final Calcium 08/16/2023 06:30:00 8.1 Below low normal 8.4 -10.2 (mg/dL) Final Performing Location [facility] [place] [address]
--- OUTSIDE RECORDS SUMMARY | 2023-08-20 11:35 | External Medical Summary ---
Author Name Unknown Address Unknown Organization [id number]:[facility] [place] [address] Laboratory Report Ordering Provider Test Date Status ANIBAL LIU 08/20/2023 06:05:00 Final Observation Date Value Abnormality Reference (Units ) Status SYNC LEUKOCYTES IN BLOOD BY AUTOMATED COUNT 08/20/2023 06:05:00 17.37 Above high normal 4.00-10.80 (K/uL) Final Segs 08/20/2023 06:05:00 91.5 Above high normal 40.0-75.0 (%) Final Lymphs % 08/20/2023 06:05:00 4.4 Below low normal 18.0-42.0 (%) Final Monos 08/20/2023 06:05:00 4.0 1.0-11.0 (%) Final Eosinophils 08/20/2023 06:05:00 0.0 0.0-6.0 (%) Final Basos 08/20/2023 06:05:00 0.1 0.0-2.0 (%) Final Absolute Segs 08/20/2023 06:05:00 15.90 Above high normal 1.80-7.70 (K/uL) Final Lymphs, absolute 08/20/2023 06:05:00 0.76 Below low normal 1.00-4.80 (K/ul) Final Monos, Abs 08/20/2023 06:05:00 0.70 0.00-1.10 (K/uL) Final Eos, Abs 08/20/2023 06:05:00 0.00 0.00-0.70 (K/uL) Final Basos, Abs 08/20/2023 06:05:00 0.01 0.00-0.20 (K/uL) Final Performing Location [facility] [place] [address]
--- OUTSIDE RECORDS SUMMARY | 2023-08-20 11:35 | External Medical Summary ---
Author Name Unknown Address Unknown Organization [id number]:[facility] [place] [address] Laboratory Report Ordering Provider Test Date Status SHAI PRECIADO 08/20/2023 06:05:00 Final Observation Date Value Abnormality Reference (Units ) Status BUN 08/20/2023 06:05:00 22 Above high normal 6-20 (mg/dL) Final Creatinine 08/20/2023 06:05:00 1.8 Above high normal 0.5-1.0 (mg/dL) Final Glomerular filtration rate/1.73 sq M.predicted [Volume Rate/Area] in Serum, Plasma or Blood by Creatinine-based formula (CKD-EPI) 08/20/2023 06:05:00 29 Below low normal >=60 (mL/min) Final eGFR is calculated based on the CKD-EPI 2020 equation SODIUM 08/20/2023 06:05:00 135 135-146 (m mol/L) Final Potassium 08/20/2023 06:05:00 4.9 3.5-5.1 (m mol/L) Final Cl 08/20/2023 06:05:00 100 98-107 (mm ol/L) Final CO2 08/20/2023 06:05:00 21 Below low normal 22- 32 (mmol/L) Final Anion gap 08/20/2023 06:05:00 14 7-15 (mmol /L) Final Glucose 08/20/2023 06:05:00 64 Below low normal 70- 120 (mg/dL) Final Calcium 08/20/2023 06:05:00 8.3 Below low normal 8.4 -10.2 (mg/dL) Final Performing Location [facility] [place] [address]
--- OUTSIDE RECORDS SUMMARY | 2023-08-20 11:35 | External Medical Summary ---
Author Name Unknown Address Unknown Organization K09:[facility] [place] [address] Laboratory Report Ordering Provider Test Date Status ANIBAL LIU 08/20/2023 06:05:00 Final Observation Date Value Abnormality Reference (Units ) Status Nucleated erythrocytes/100 leukocytes [Ratio] in Blood by Automated count 08/20/2023 06:05:00 Final Performing Location [facility] [place] [address]
--- OUTSIDE RECORDS SUMMARY | 2023-08-20 11:35 | External Medical Summary ---
Author Name Unknown Address Unknown Organization K09:[facility] [place] [address] Laboratory Report Ordering Provider Test Date Status SHAI PRECIADO 08/16/2023 06:30:00 Final Observation Date Value Abnormality Reference (Units ) Status WBC, Total 08/16/2023 06:30:00 2.57 Below low normal 4. 00-10.80 (K/uL) Final RBC 08/16/2023 06:30:00 2.12 3.85-5.15 (M/uL) Final Hemoglobin 08/16/2023 06:30:00 7.5 Below low normal 12 .0-15.3 (g/dL) Final HCT 08/16/2023 06:30:00 24.1 Below low normal 36. 0-45.2 (%) Final MCV 08/16/2023 06:30:00 113.7 81.5-97.5 (fL) Final MCH 08/16/2023 06:30:00 35.4 27.0-34.0 (pg) Final MCHC 08/16/2023 06:30:00 31.1 32.0-36.0 (g/dL) Final RDW 08/16/2023 06:30:00 14.9 11.5-15.5 (%) Final Platelets 08/16/2023 06:30:00 136 Below low normal 140 -400 (K/uL) Final MPV 08/16/2023 06:30:00 10.6 6.6-11.1 ( fL) Final Performing Location [facility] [place] [address]
--- OUTSIDE RECORDS SUMMARY | 2023-08-20 11:35 | External Medical Summary | Summary of Care ---
Author Name Unknown Organization [facility] Address [address] [facility] [place] [address] Phone [phone] Care Team Providers Care Alcohol Rubber Name Role Phone IsidoroGiorgio ontiveros Umesh ORO Primary Care Provider [phone] Reason for Visit * Reason Onset Date Comments Fax Refill 08/15/2023 Encounter Details Date Type Department Care Team (Late st Contact Info) Description 08/15/2023 Telephone Cardiology, [facility] [address] [place] [address] Roger Guzman DO [address] [facility] [place] [address] Fax Refill Allergies Active Allergy Reactions Criticality Noted Date Comments Salicylates Itching 11/27/1999 Aspirin Sulfa Antibiotics Other (Please comment) 1998 Unsure, happened during a hospital admission. documented as of this encounter (statuses as of 08/16/2023) Medications Medication Sig Dispensed Refills Start Date [...] TWICE DAILY 180 Tablet 3 08/27/2022 Active Atorvastatin Calcium 20 [...] before bedtime. 60 Each 11 10/03/2022 Active Nystatin 657492 UNIT/GM External Cream Apply topically to affected [...] 06/06/2023 Active predniSONE 20 MG Oral Tablet (Deltasone)Indicati ons:Rhonchi at both lung bases 1 tab 3 times a day for 3 days, then 1 tab 2 times a day for 3 days, then 1 tab daily for 3 days 18 Tablet 0 06/07/2023 Active Eliquis 5 MG Oral TabletIndications:H istory of pulmonary embolism Take 1 tablet by mouth in the morning, and 1 tablet in the evening. 180 Tablet 2 07/10/2023 Active Clopidogrel Bisulfate 75 MG Oral Tablet (pLAVix) TAKE 1 TABLET BY MOUTH EVERY MORNING 90 Tablet 2 07/10/2023 Active Lidocaine 5 % External Patch (Lidoderm)Indicatio ns:DDD (degenerative disc disease), lumbar,Primary localized osteoarthrosis of lower leg, unspecified laterality,Lumbar radiculopathy,Prima ry osteoarthritis of both knees Place 1 Patch over 12 hours topically on the skin daily. 30 Patch 0 07/15/2023 Active Reyvow 50 MG Oral Tablet (Lasmiditan Succinate) TAKE 1 TABLET BY MOUTH AT ONSET OF MIGRAINE. MAX 1 DOSE IN 24 HOURS. 10 Tablet 0 08/02/2023 Active traMADol HCl 50 MG Oral Tablet (Ultram)Indications :MEDICATION USE AGREEMENT,Controlle d substance agreement signed,Primary osteoarthritis of both shoulders Take 1 Tablet by mouth 2 times a day as needed for Pain, Moderate. 60 Tablet 0 08/15/2023 Active Furosemide 20 MG Oral Tablet (Lasix)Indications: Chronic right-sided heart failure (HCC),Unspecified atrial fibrillation (HCC),HTN, goal below 130/80 Take 1 Tablet by mouth in the morning. 90 Tablet 3 08/16/2023 Active Furosemide 20 MG Oral Tablet (Lasix) TAKE ONE TABLET BY MOUTH IN THE MORNING 90 Tablet 3 08/27/2022 3 Discontinu ed(Refill) documented as of this encounter (statuses as of 08/16/2023) Active Problems Problem Noted Date Diagnosed Date Chronic heart failure with preserved ejection fr action 11/26/2022 Chronic right-sided heart failure 04/12/2022 Recurrent major [...] AGREEMENT 10/29/2017 Coronary artery disease invo lving [place] coronary artery of [place] heart without angina pectoris 10/28/2017 HTN, [...] History of positive PPD, untreated 08/10/2013 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 Anticoagulation management encounter 02/23/2002 History of DVT (deep vein thrombosis) 02/23/2002 History of pulmonary embolism 02/23/2002 documented as of this encounter (statuses as of 08/16/2023) Resolved Problems Problem Noted Date Diagnosed Date Resolved Date Food insecurity 04/30/2022 08/01/2023 Overview: Per [facility] Protocol Left heart failure with pres erved left [...] as of this encounter (statuses as of 08/16/2023) Immunizations Name Administration Dates Next Due COVID-19 mRNA, LNP-s, No Pre serve, 2-Dose Series ([email or web address]) 08/29/2021,12/30/2020,12/07/2020 H1N1 2009 Influenza, IM 10/17/2009 PPD 02/10/2021,01/31/2021 Pneumococcal Conjugate Vacc, 13 Valent (Prevnar) 09/26/2015 Pneumococcal Polysaccharide PPV23 (Pneumovax) 06/23/2008 Season Influenza, Quad, PF, Adjuvanted, 65+ Yrs, IM (FLUAD) 05/26/2020 Seasonal Influenza Virus Vac cine, Unspecified Formulation 09/11/2021,05/26/2020,06/09/2019,06/10,05/14/2017,07/02/2016,06/09/2015 ,04/29/2014,05/14/2013,06/06/2012,05/20,06/05/2010,10/17/2009, 8,06/29/2006,07/29/2000 Seasonal Influenza, PF, 6 M & above, IM , (FluLaval or Fluzone) 06/10/2018,05/14/2017 Seasonal Influenza, Quadriva lent Hd (Fluzone [...] Miscellaneous Notes * Telephone Encounter - Radha Roach CMA - 08/15/2023 1:50 PM EST Did you pend patient's preferred pharmacy and medication before forwarding?yes Pharmacy: [facility] [id number] Pending Prescriptions: Disp Refills Furosemide 20 MG Oral Tablet (Lasix) 90 Tab*3 Sig: Take 1 Tablet by mouth in the morning. Last Visit: 01/24/2023 (in office), Visit date not found (telemedicine) Next Visit: 08/26/2023 If no future appointments scheduled, and last appointment is greater than a year ago, please schedule patient for a follow-up appointment Last date the medication was ordered: 08/27/22 Is this request for a controlled substance?No Urine Drug Screen: Results for orders placed or performed during the hospital encounter of 10/11/19 TOX SCREEN, URINE, W/ CONFIRMATION Result Value Amphetamine NEGATIVE Benzodiazepines NEGATIVE Cannabinoids NEGATIVE Cocaine Metabolite NEGATIVE HYDROCODONE POSITIVE (A) Morphine / Codeine POSITIVE (A) METHADONE METABOLITE NEGATIVE OXYCODONE NEGATIVE TOX COMMENT THE ABOVE SCREENING RESULTS ARE PRESUMPTIVE AND CAN ONLY BE USED FOR MEDICAL PURPOSES. POSITIVE RESULTS REFLEX TO CONFIRMATORY TESTING. Cutoff Concentration *Note: Due to a large number of results and/or encounters for the requested time period, some results have not been displayed. A complete set of results can be found in Results Review. Patient Phone Numbers Labs: Lab Results Component Value Date/Time CREAT 1.4 (H) 08/14/2023 07:03 AM CREAT 1.32 (A) 01/03/2023 12:00 AM CREAT 1.0 04/14/2020 02:11 PM POTASSIUM 5.4 (H) 08/14/2023 07:03 AM POTASSIUM 3.9 01/03/2023 12:00 AM POTASSIUM 3.8 04/14/2020 02:11 PM TSH 1.959 01/03/2023 12:00 AM TSH 0.77 04/14/2020 02:11 PM LDLCALC 69 01/03/2023 12:00 AM LDLCALC 64 07/06/2019 10:33 AM LDLDIRECT NOT APPLICABLE 07/06/2019 10:33 AM LDLDIRECT 126 09/24/2012 02:19 PM ALT 16 11/26/2022 03:10 PM ALT 11 07/06/2019 10:33 AM HGBA1C 4.9 01/03/2023 12:00 AM HGBA1C 5.6 12/03/2008 01:39 PM documented in this encounter Plan of Treatment Upcoming Encounters Date Type Department Care Team (Late st Contact Info) Description 08/26/2023 10:00 AM EST Office Visit Cardiology, [facility] [address] [place] [address] Roger Guzman DO [address] [place] [address] 08/26/2023 6:10 PM EST Pharmacy Pharmacy, [facility] [address] [place] [address] [facility] [address] [place] [address] 10/07/2023 2:00 PM EST Office Visit Rheumatology [place] [address] [place] [address] Alonso Dwyer MD [address] [place] [address] [place] [address] 11/22/2023 3:00 PM EDT Office Visit Family Practice [facility] [address] [facility] [place] [address] Giorgio Salas, DO [address] [facility] [place] [address] 02/04/2024 1:20 PM EDT Office Visit Rheumatology [place] [address] [place] [address] Alonso Dwyer MD [address] [place] [address] [place] [address] Scheduled Procedures Name Priority Associated Diagnoses Date/Ti me COLONOSCOPY FLEXIBLE PROXIMAL DIAGNOSTIC Recall History of colon polyps Health Maintenance Due Date Last Done Comments Albumin/Creatinine Ratio 09/29/2016 016, 09/24/2012, 06/13/2011 Depression Screening 04/09/2023 04/09/2022 COVID-19 Vaccine ( season) 2023 08/29/2021, 12/30/2020, 12/07/2020 Zoster Vaccines (3 of 3) 06/19/2023 04/24/2023, 12/2014 CKD PHOS USE SMARTSET 43618 10/12/202309/20, 10/12/2019, 08/18/2018, Additional history exists TSH 01/04/2024 01/03/2023, 03/20, 01/17/2021, Additional history exists GFR 02/13/2024 08/14/2023, 07/20, 07/19/2023, Additional history exists CKD HGB USE SMARTSET 50576 08/16/202408/16, 08/13/2023, 01/24/2023, Additional history exists DXA Scan 04/16/2029 04/16/2022, [...] of this encounter Visit Diagnoses Diagnosis Chronic right-sided heart failure (HCC)- Primary Congestive heart failure, unspecified Unspecified atrial fibrillation (HCC) HTN, goal below 130/80 Unspecified essential hypertension documented in this encounter Advance Directives Documents on File Type Date Recorded Patient Comparator Operator Expl anation Advance Directives and Living Will 05/01/2022 ADVANCE DIRECTIVE / LIVING WILL Power of Real Estate Processor 05/01/2022 POWER OF A TTORNEY Latest Code Status on File Code Status Date Activated Date Inactivated Comments Full Code 10/11/2019 7:48 PM 10/12/2019 8:11 PM This order reflects the patients wishes and were consensually agreed upon. Question Answer Comments Discussion of Advance Directives occurred with: Not Discussed Does the patient have a Living Will? No Does the patient have Health Care Power of Real Estate Processor? No Care Teams Alcohol Rubber Relationship Specialty Start Date End Date Giorgio Salas DO [address] [place] [address] PCP - General Family Medicine 02/15/17 documented as of this encounter
--- OUTSIDE RECORDS SUMMARY | 2023-08-20 11:35 | External Medical Summary ---
Author Name Unknown Address Unknown Organization K09[facility] [place] [address] Laboratory Report Ordering Provider Test Date Status ANIBAL LIU 08/20/2023 06:05:00 Final Observation Date Value Abnormality Reference (Units ) Status WBC, Total 08/20/2023 06:05:00 17.37 Above high normal 4 .00-10.80 (K/uL) Final RBC 08/20/2023 06:05:00 2.50 3.85-5.15 (M/uL) Final Hemoglobin 08/20/2023 06:05:00 8.9 Below low normal 12 .0-15.3 (g/dL) Final HCT 08/20/2023 06:05:00 28.6 Below low normal 36. 0-45.2 (%) Final MCV 08/20/2023 06:05:00 114.4 81.5-97.5 (fL) Final MCH 08/20/2023 06:05:00 35.6 27.0-34.0 (pg) Final MCHC 08/20/2023 06:05:00 31.1 32.0-36.0 (g/dL) Final RDW 08/20/2023 06:05:00 14.8 11.5-15.5 (%) Final Platelets 08/20/2023 06:05:00 236 140-400 (K /uL) Final MPV 08/20/2023 06:05:00 10.9 6.6-11.1 ( fL) Final Performing Location [facility] [place] [address]
[2023-08-20] MEDS ORDERED: VANCOMYCIN CONSULT ACTIVE PRN (11:36)
[2023-08-20] MEDS ORDERED: VANCOMYCIN HCL 2,250 MG in SODIUM CHLORIDE 0.9% 500 ML IV ONE (11:36)
--- OUTSIDE RECORDS SUMMARY | 2023-08-20 11:36 | External Medical Summary | Summary of Care ---
Author Name Unknown Organization [facility] Address [address] [facility] [address] Phone [phone] Care Team Providers Care Dinkey Mechanic Name Role Phone IsidoroGiorgio ontiveros Primary Care Provider [phone] Reason for Visit * Reason Comments Appointment Encounter Details Date Type Department Care Team (Late st Contact Info) Description 07/29/2023 6:10 PM [facility] Pharm[facility] Pharmacy, [facility] [address] [place] [address] Primary osteoarthritis of both knees*; Osteoarthrosis involving shoulder region; Osteoarthrosis, localized, primary, involving lower leg; DDD (degenerative disc disease), lumbar; Lumbar radiculopathy Allergies Active Allergy Reactions Criticality Noted Date Comments Salicylates Itching 11/27/1999 Aspirin Sulfa Antibiotics Other (Please comment) 1998 Unsure, happened during a hospital admission. 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 Anticoagulation management encounter 02/23/2002 History of DVT (deep vein thrombosis) 02/23/2002 History of pulmonary embolism 02/23/2002 documented as of this encounter (statuses as of 07/29/2023) Resolved Problems Problem Noted Date Diagnosed Date [...] as of this encounter (statuses as of 07/29/2023) Immunizations Name Administration Dates Next Due COVID-19 mRNA, LNP-s, No Pre serve, 2-Dose Series ([employer]) 08/29/2021,12/30/2020,12/07/2020 H1N1 2009 Influenza, IM 10/17/2009 PPD [...] as of this encounter Progress Notes * Patt Samuel PHARM Tech - 07/29/2023 9:36 AM EST Patient Phone Numbers Attempted to reach pt, no answer / no VM, to schedule MTDM appointment for pain management. [facility] message sent --no Clinic will follow up again in 4 week(s). [Attempt # 2] Thank you, Patt Samuel Chief Compliance Officer [facility] ([facility]) (Formerly Telepharmacy) 07/29/2023, 9:36 AM documented in this encounter Plan of Treatment Upcoming Encounters Date Type Department Care Team (Late st Contact Info) Description 07/30/2023 2:00 PM EST Office Visit Rheumatology [facility] [address] [place] [address] Anton Zimmerman CRNP [address] [place] [address] 08/08/2023 1:30 PM EST Office Visit Audiology [facility] 132 [place] [address] Merari Vogel Au.D. 132 [facility] [place] [address] 08/26/2023 6:10 PM EST Pharmacy Pharmacy, [facility] [address] [facility] 132 [place] [address] 10/07/2023 2:00 PM EST Office Visit Rheumatology [place] [address] [facility] [place] [address] Alonso Dwyer MD [address] [place] [address] [place] [address] 11/22/2023 3:00 PM EDT Office Visit Family Practice [facility] 200 [facility] [place] [address] Giorgio Salas, DO 200 [facility] [place] [address] 02/04/2024 1:20 PM EDT Office Visit Rheumatology [place] [address] [facility] [place] [address] Alonso Dwyer MD [facility] [place] [address] Scheduled Procedures Name Priority Associated Diagnoses Date/Ti [...] 06/19/2023 04/24/2023, 12/2014 CKD PHOS USE SMARTSET 56882 10/12/202309/20, 10/12/2019, 08/18/2018, Additional history exists TSH 01/04/2024 01/03/2023, 03/20, 01/17/2021, Additional history exists GFR 01/18/2024 07/19/2023, 03/2023, 01/03/2023, Additional history exists CKD HGB USE SMARTSET 65492 01/25/202401/24, 01/24/2023, 01/03/2023, Additional history exists DXA [...] Documents on File Type Date Recorded Patient Homeopathic Doctor Expl anation Advance Directives and Living Will 05/01/2022 ADVANCE DIRECTIVE / LIVING WILL Power of Sales Mgr 05/01/2022 POWER OF A TTORNEY Latest Code Status on File Code Status Date Activated Date Inactivated Comments Full Code 10/11/2019 7:48 PM 10/12/2019 8:11 PM This order reflects the patients wishes and were consensually agreed upon. Question Answer Comments Discussion of Advance Directives occurred with: Not Discussed Does the patient have a Living Will? No Does the patient have Health Care Power of Sales Mgr? No Care Teams Dinkey Mechanic Relationship Specialty Start Date End Date Giorgio Salas DO [address] [place] [address] PCP - General Family Medicine 02/15/17 documented as of this encounter
--- OUTSIDE RECORDS SUMMARY | 2023-08-20 11:36 | External Medical Summary | Summary of Care ---
Author Name Unknown Organization [facility] Address [address] [place] [facility] [place] [address] Phone [phone] Care Team Providers Care Supervisor Conditioning Yard Name Role Phone IsidoroGiorgio ontiveros Primary Care Provider [phone] Encounter Details Date Type Department Care Team (Late st Contact Info) Description 08/01/2023 Telephone Cardiology, [facility] [address] [facility] [place] [address] Kamryn Freeman CRNP [address] [facility] [place] [address] Allergies Active Allergy Reactions Criticality Noted Date Comments Salicylates Itching 11/27/1999 Aspirin Sulfa Antibiotics Other (Please comment) 1998 Unsure, happened during a hospital admission. 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 Anticoagulation management encounter 02/23/2002 History of DVT (deep vein thrombosis) 02/23/2002 History of pulmonary embolism 02/23/2002 documented as of this encounter (statuses as of 08/01/2023) Resolved Problems Problem Noted Date Diagnosed Date [...] as of this encounter (statuses as of 08/01/2023) Immunizations Name Administration Dates Next Due COVID-19 [...] encounter Miscellaneous Notes * Telephone Encounter - Kamryn Freeman CRNP - 08/01/2023 11:56 AM EST Error documented in this encounter Plan of Treatment Upcoming Encounters Date Type Department Care Team (Late st Contact Info) Description 08/26/2023 10:00 AM EST Office Visit Cardiology, [facility] [address] [place] [address] Roger Guzman, 132 [place] [address] 08/26/2023 6:10 PM EST Pharmacy Pharmacy, [facility] [address] [place] [address] [facility] [place] [address] [place] [address] 10/07/2023 2:00 PM EST Office Visit Rheumatology [place] [address] [place] [address] Alonso Dwyer MD [facility] [place] [address] 11/22/2023 3:00 PM EDT Office Visit Family Practice [facility] [place] 200 [facility] [place] [address] Giorgio Salas DO 200 [facility] [place] [address] 02/04/2024 1:20 PM EDT Office Visit Rheumatology [facility] [address] [place] [address] Alonso Dwyer MD [address] [place] [address] Scheduled Procedures Name Priority Associated Diagnoses Date/Ti [...] 06/19/2023 04/24/2023, 12/2014 CKD PHOS USE SMARTSET 66111 10/12/202309/20, 10/12/2019, 08/18/2018, Additional history exists TSH 01/04/2024 01/03/2023, 03/20, 01/17/2021, Additional history exists GFR 01/18/2024 07/19/2023, 03/2023, 01/03/2023, Additional history exists CKD HGB USE SMARTSET 75959 01/25/202401/24, 01/24/2023, 01/03/2023, Additional history exists DXA [...] Documents on File Type Date Recorded Patient Medicaid Eligibility Specialist Expl anation Advance Directives and Living Will 05/01/2022 ADVANCE DIRECTIVE / LIVING WILL Power of Reliability Specialist 05/01/2022 POWER OF A TTORNEY Latest [...] the patient have Health Care Power of Reliability Specialist? No Care Teams Supervisor Conditioning Yard Relationship Specialty Start Date End Date Giorgio Salas DO [address] [place] [address] PCP - General Family Medicine 02/15/17 documented as of this encounter
--- OUTSIDE RECORDS SUMMARY | 2023-08-20 11:36 | External Medical Summary | Summary of Care ---
Author Name Unknown Organization [facility] Address [address] [place] [address] Phone [phone] Care Team Providers Care Roll Out Manager Name Role Phone Giorgio Salas Primary Care Provider [phone] Encounter Details Date Type Department Care Team (Late st Contact Info) Description 07/26/2023 Result Scan Unspecified Department <No scans attached> Allergies Active Allergy Reactions Criticality Noted Date [...] hours 10 Tablet 5 01/24/2023 Active Nystatin 894675 UNIT/GM External Cream Apply topically to affected [...] action 11/26/2022 Food insecurity 04/30/2022 Overview: Per [facility] Protocol Chronic right-sided heart failure [...] AGREEMENT 10/29/2017 Coronary artery disease invo lving [place] coronary artery of [place] heart without angina pectoris 10/28/2017 HTN, goal [...] History of positive PPD, untreated 08/10/2013 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 02/16/2013 Overview: heterozygous for the [id number] mutation Family history of prothrombin gene mutation [...] colonsocopy, repeat 2009 Irritable bowel syndrome 02/23/2004 [facility] current use of anticoagulant therapy 0 09/23/2003 [...] mRNA, LNP-s, No Pre serve, 2-Dose Series ([employer]) 08/29/2021,12/30/2020,12/07/2020 H1N1 2009 Influenza, IM 10/17/2009 PPD [...] Description 07/29/2023 6:10 PM EST Pharmacy Pharmacy, [facility] [address] [place] [address] [facility] [address] [place] [address] Primary osteoarthritis of both knees*; Osteoarthrosis involving shoulder region; Osteoarthrosis, localized, primary, involving lower leg; DDD (degenerative disc disease), lumbar; Lumbar radiculopathy 07/30/2023 2:00 PM EST Office Visit Rheumatology [address] [place] [address] Anton Zimmerman CRNP [address] [place] [address] [place] [address] 08/08/2023 1:30 PM EST Office Visit Audiology [facility] [address] [place] [address] Merari Vogel Au.D. 132 [place] [address] 08/26/2023 6:10 PM EST Pharmacy Pharmacy, [facility] [address] [place] [address] [facility] [address] [place] [address] 10/07/2023 2:00 PM EST Office Visit Rheumatology [address] [place], [place] [address] Alonso Dwyer MD [address] [place] [address] [place] [address] 11/22/2023 3:00 PM EDT Office Visit Family Practice [facility] [place] 200 [facility] [place] [address] Giorgio Salas, 200 [facility] [place] [address] 02/04/2024 1:20 PM EDT Office Visit Rheumatology [place] [address] [facility] [place] [address] Alonso Dwyer MD [address] [place] [address] [place], [place] [address] Scheduled Procedures Name Priority Associated Diagnoses Date/Ti [...] 06/19/2023 04/24/2023, 12/2014 CKD PHOS USE SMARTSET 50962 10/12/202309/20, 10/12/2019, 08/18/2018, Additional history exists TSH 01/04/2024 01/03/2023, 03/20, 01/17/2021, Additional history exists GFR 01/18/2024 07/19/2023, 03/2023, 01/03/2023, Additional history exists CKD HGB USE SMARTSET 28495 01/25/202401/24, 01/24/2023, 01/03/2023, Additional history exists DXA [...] Procedure Name Priority Date/Time Associated Diagnosis Comments CARDIAC CATH SCANNED RESULT 07/26/2023 documented in this encounter Results * CARDIAC CATH SCANNED RESULT (07/26/2023) 07/26/2023 No Physician Data Unknown CARD CATH documented in this encounter Advance Directives Documents on File Type Date Recorded Patient Product Responsibility Liaison Expl anation Advance Directives and Living Will 05/01/2022 ADVANCE DIRECTIVE / LIVING WILL Power of Pneudraulic Systems Mechanic 05/01/2022 POWER OF A TTORNEY Latest Code Status on File Code Status Date Activated Date Inactivated Comments Full Code 10/11/2019 7:48 PM 10/12/2019 8:11 PM This order reflects the patients wishes and were consensually agreed upon. Question Answer Comments Discussion of Advance Directives occurred with: Not Discussed Does the patient have a Living Will? No Does the patient have Health Care Power of Pneudraulic Systems Mechanic? No Care Teams Roll Out Manager Relationship Specialty Start Date End Date Giorgio Salas DO [address] [place] [address] PCP - General Family Medicine 02/15/17 documented as of this encounter
--- OUTSIDE RECORDS SUMMARY | 2023-08-20 11:36 | External Medical Summary | Summary of Care ---
Author Name Unknown Organization [facility] Address [address] [place] [address] Phone [phone] Care Team Providers Care Manager Assessment Name Role Phone Giorgio Salas DO Primary Care Provider [phone] Reason for Visit * Reason Comments eRx-Medication Refill Encounter Details Date Type Department Care Team (Late st Contact Info) Description 08/02/2023 Refill Family Practice [facility] [place] 200 [place] [address] Giorgio Salas DO 200 [place] [address] Allergies Active Allergy Reactions Criticality Noted Date Comments Salicylates Itching 11/27/1999 Aspirin Sulfa Antibiotics Other (Please comment) 1998 Unsure, happened during a hospital admission. documented as of this encounter (statuses as of 08/02/2023) Medications Medication Sig Dispensed Refills Start Date [...] before bedtime. 60 Each 11 3 Active Nystatin 182022 UNIT/GM External Cream Apply topically to affected [...] 3 days 18 Tablet 0 3 Active Eliquis 5 MG Oral TabletIndications:H istory of pulmonary embolism Take 1 tablet by mouth in the morning, and 1 tablet in the evening. 180 Tablet 2 3 Active Clopidogrel Bisulfate 75 MG Oral Tablet (pLAVix) TAKE 1 TABLET BY MOUTH EVERY MORNING 90 Tablet 2 3 Active traMADol HCl 50 MG Oral Tablet (Ultram)Indications :MEDICATION USE AGREEMENT,Controlle d substance agreement signed,Primary osteoarthritis of both shoulders Take 1 Tablet by mouth 2 times a day as needed for Pain, Moderate. 60 Tablet 0 3 Active Lidocaine 5 % External Patch (Lidoderm)Indicatio ns:DDD (degenerative disc disease), lumbar,Primary localized osteoarthrosis of lower leg, unspecified laterality,Lumbar radiculopathy,Prima ry osteoarthritis of both knees Place 1 Patch over 12 hours topically on the skin daily. 30 Patch 0 3 Active Reyvow 50 MG Oral Tablet (Lasmiditan Succinate) TAKE 1 TABLET BY MOUTH AT ONSET OF MIGRAINE. MAX 1 DOSE IN 24 HOURS. 10 Tablet 0 3 Active Lasmiditan Succinate 50 MG Oral Tablet (Reyvow) Take one at onset of migraine. Max 1 dose in 24 hours 10 Tablet 5 3 08/02/20 23 Discontinued documented as of this encounter (statuses as of 08/02/2023) Active Problems Problem Noted Date Diagnosed Date [...] AGREEMENT 10/29/2017 Coronary artery disease invo lving [place] coronary artery of [place] heart without angina pectoris 10/28/2017 HTN, goal [...] History of positive PPD, untreated 08/10/2013 Prothrombin [id number] mutation 02/16/2013 Overview: heterozygous for the [id number] mutation Family history of prothrombin gene mutation [...] as of this encounter (statuses as of 08/02/2023) Resolved Problems Problem Noted Date Diagnosed Date [...] as of this encounter (statuses as of 08/02/2023) Immunizations Name Administration Dates Next Due COVID-19 mRNA, LNP-s, No Pre serve, 2-Dose Series ([employer]) 08/29/2021,12/30/2020,12/07/2020 H1N1 2009 Influenza, IM 10/17/2009 PPD [...] Telephone Encounter - Giorgio Salas DO - 08/02/2023 4:23 PM ESTPending Prescriptions: Disp Refills Reyvow 50 MG Oral Tablet (Lasmiditan Succi*10 Tab*0 Sig: TAKE 1 TABLET BY MOUTH AT ONSET OF MIGRAINE. MAX 1 DOSE IN 24 HOURS. * Telephone Encounter - Giorgio Salas DO - 08/02/2023 4:22 PM EST This medication I do not know anything about to prescribe for her? * Telephone Encounter - Beatrice Keating PHARM Tech - 08/02/2023 3:11 PM EST Pending Prescriptions: Disp Refills Reyvow 50 MG Oral Tablet (Lasmiditan Succi*10 Tab*0 Sig: TAKE 1 TABLET BY MOUTH AT ONSET OF MIGRAINE. MAX 1 DOSE IN 24 HOURS. * Telephone Encounter - Beatrice Keating PHARM Tech - 08/02/2023 3:09 PM EST Did you pend patient's preferred pharmacy and medication before forwarding?yes Pharmacy: [id number] Per 07/23 refill encounter pt sees specialty as needed, should get from primary care. Please approveif agreeable. Pending Prescriptions: Disp Refills Reyvow 50 MG Oral Tablet (Lasmiditan Succ*10 Tab*0 Sig: TAKE 1 TABLET BY MOUTH AT ONSET OF MIGRAINE. MAX 1 DOSE IN 24 HOURS. Last Visit: 06/07/2023 (in office), 06/28/2020 (telemedicine) Next Visit: 11/22/2023 If no future appointments scheduled, and last appointment is greater than a year ago, please schedule patient for a follow-up appointment Last date the medication was ordered: 01/24/2023 Is this request for a controlled substance?No [...] Labs: Lab Results Component Value Date/Time CREAT 1.0 07/19/2023 11:37 AM CREAT 1.32 (A) 01/03/2023 12:00 AM CREAT 1.0 04/14/2020 02:11 PM POTASSIUM 3.4 (L) 07/19/2023 11:37 AM POTASSIUM 3.9 01/03/2023 12:00 AM POTASSIUM [...] 08/26/2023 10:00 AM EST Office Visit Cardiology, [facility] [address] [place] [address] Roger Guzman DO [address] [place] [address] 08/26/2023 6:10 PM EST Pharmacy Pharmacy, [facility] [address] [place] [address] [facility] [address] [place] [address] 10/07/2023 2:00 PM EST Office Visit Rheumatology [place] [address] [facility] [place] [address] Alonso Dwyer MD [address] [place] [address] 11/22/2023 3:00 PM EDT Office Visit Family Practice [facility] 200 [facility] [place] [address] Giorgio Salas, DO 200 [place] [address] 02/04/2024 1:20 PM EDT Office Visit Rheumatology [facility] [address] [place], [place] [address] Alonso Dwyer MD [address] [place], [place] [address] Scheduled Procedures Name Priority Associated Diagnoses Date/Ti me COLONOSCOPY FLEXIBLE PROXIMAL DIAGNOSTIC Recall History of colon polyps Health Maintenance Due Date Last Done Comments Albumin/Creatinine Ratio 09/29/2016 016, 09/24/2012, 06/13/2011 Depression Screening 04/09/2023 04/09/2022 COVID-19 Vaccine ( season) 2023 08/29/2021, 12/30/2020, 12/07/2020 Zoster Vaccines (3 of 3) 06/19/2023 04/24/2023, 0512/2014 CKD PHOS USE SMARTSET 90378 10/12/202309/20, 10/12/2019, 08/18/2018, Additional history exists TSH 01/04/2024 01/03/2023, 03/20, 01/17/2021, Additional history exists GFR 01/18/2024 07/19/2023, 03/2023, 01/03/2023, Additional history exists CKD HGB USE SMARTSET 93808 01/25/202401/24, 01/24/2023, 01/03/2023, Additional history exists DXA [...] Documents on File Type Date 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 No Care Teams Manager Assessment Relationship Specialty Start Date End Date Giorgio Salas DO [address] [place] [address] PCP - General Family Medicine 02/15/17 documented as of this encounter
--- OUTSIDE RECORDS SUMMARY | 2023-08-20 11:36 | External Medical Summary ---
Author Name Unknown Address Unknown Organization K09:[facility] [place] [address] Laboratory Report Ordering Provider Test Date Status ANIBAL LIU 08/13/2023 06:25:00 Final Observation Date Value Abnormality Reference (Units ) Status BUN 08/13/2023 06:25:00 18 6-20 (mg/dL) Final Creatinine 08/13/2023 06:25:00 1.3 Above high normal 0.5-1.0 (mg/dL) Final Glomerular filtration rate/1.73 sq M.predicted [Volume Rate/Area] in Serum, Plasma or Blood by Creatinine-based formula (CKD-EPI) 08/13/2023 06:25:00 41 Below low normal >=60 (mL/min) Final eGFR is calculated based on the CKD-EPI 2020 equation SODIUM 08/13/2023 06:25:00 132 Below low normal 135 -146 (mmol/L) Final Potassium 08/13/2023 06:25:00 6.9 Above upper panic li mits 3.5-5.1 (mmol/L) Final Results rechecked. Cl 08/13/2023 06:25:00 97 Below low normal 98- 107 (mmol/L) Final CO2 08/13/2023 06:25:00 26 22-32 (mmo l/L) Final Anion gap 08/13/2023 06:25:00 9 7-15 (mmol /L) Final Glucose 08/13/2023 06:25:00 75 70-120 (mg /dL) Final Calcium 08/13/2023 06:25:00 8.8 8.4-10.2 ( mg/dL) Final Performing Location [facility] [place] [address]
--- OUTSIDE RECORDS SUMMARY | 2023-08-20 11:36 | External Medical Summary | Summary of Care ---
Author Name Unknown Organization [facility] Address [address] [facility] [place] [address] Phone [phone] Care Team Providers Care Chainman Name Role Phone IsidoroGiorgio ontiveros Primary Care Provider +1 [phone] Reason for Visit * Reason Onset Date Comments Appointment 07/31/2023 Encounter Details Date Type Department Care Team (Late st Contact Info) Description 07/31/2023 Telephone Cardiology, [facility] [address] [facility] [id number] Kamryn Freeman CRNP [address] 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 Guzman. This is the first opening. * Telephone Encounter - Kamryn Freeman CRNP - 07/31/2023 11:17 AM EST Patient admitted to [facility] on 07/26. Anticipate Discharge within the next 24 to 48 hours. Scheduling: Please assist with [facility] follow-up within the next 2 weeks. Patient has followed with Dr. Guzman and Ning King PA-C in the past. If scheduling with AP please allow 60 minutes for this appointment and label appt [facility]. Cards progress note 07/31/2023: 83 yo woman presenting with NSTEMI Cardiac Catheterization 07/26/23 via the right common femoral artery - minimal nonobstructive CAD. H/o of past difficult right radial access due to spasm. Left radial access on 07/26 unsuccessful New moderate LV systolic dysfunction ,compared to prior echo in December 2022 in setting of chronic LBBB. Question if sepsis induced. 2/2 Blood cultures have yielded Sensitive E. coli. Anticoagulation and clopidogrel on hold due to Anemia and thrombocytopenia, with hemoglobin of 7.3,platelet count 54 K AM of 07/28 Plans: Recovering SBP >130 mmHg - OFF Pressors Lopressor (OFF) Continue Toprol XL 50 mg po BID K+ goal 4.5-5 Kdur 40 meq po x 1 on 07/31/23 Mag goal >2 Wean FIO2 as tolerated Continue ABX murmur - reviewed ECHO; Aortic Calcifications noted - no evidence of Severe LVEF 35% Continue Aldactone 25 mg po per day Increase Entresto to 49/51 mg po BID STOP Lasix 40 mg IV Start Lasix 80 mg po per day Continue Lipitor 20 mg po per day- goal LDL <55 Transfuse if HB<7 (Hb 8) Thrombocytopenia - persists; No evidence of HIT Holding on ASA Consider SCDs for DVT prophylaxis. PT/OT Please mobilize Consider D/C [place] [facility] follow up with [facility] Cardiology -Seen by Dr. Ronen Solis documented in this encounter Plan of Treatment Upcoming Encounters Date Type Department Care Team (Late st Contact Info) Description 08/26/2023 10:00 AM EST Office Visit Cardiology, [facility] [address] [address] Roger Guzman, [address] [place] [address] 08/26/2023 6:10 PM EST Pharmacy Pharmacy, [facility] [address] [place] [address] [facility] [address] [place] [address] 10/07/2023 2:00 PM EST Office Visit Rheumatology [place] [address] [facility] [place] [address] Alonso Dwyer MD [address] [place] [address] 11/22/2023 3:00 PM EDT Office Visit Family Practice [facility] [address] [facility] [place] [address] Giorgio Salas DO [address] [facility] [place] [address] 02/04/2024 1:20 PM EDT Office Visit Rheumatology [facility] [address] [place] [address] Alonso Dwyer MD [address] [place] [address] Scheduled Procedures Name Priority Associated Diagnoses Date/Ti [...] 06/19/2023 04/24/2023, 12/2014 CKD PHOS USE SMARTSET 47445 10/12/202309/20, 10/12/2019, 08/18/2018, Additional history exists TSH 01/04/2024 01/03/2023, 03/20, 01/17/2021, Additional history exists GFR 01/18/2024 07/19/2023, 0603/2023, 01/03/2023, Additional history exists CKD HGB USE SMARTSET 13390 01/25/202401/24, 01/24/2023, 01/03/2023, Additional history exists DXA [...] Documents on File Type Date Recorded 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 Question Answer Comments Discussion of Advance Directives occurred with: Not Discussed Does the patient have a Living Will? No Does the patient have Health Care Power of Engineering Project Designer? No Care Teams Chainman Relationship Specialty Start Date End Date Giorgio Salas DO [address] [place] [address] PCP - General Family Medicine 02/15/17 documented as of this encounter
--- OUTSIDE RECORDS SUMMARY | 2023-08-20 11:36 | External Medical Summary ---
Author Name Unknown Address Unknown Organization K09:[facility] [place] [address] Laboratory Report Ordering Provider Test Date Status SHAI PRECIADO 08/14/2023 07:03:49 Final Observation Date Value Abnormality Reference (Units ) Status BUN 08/14/2023 07:03:49 17 6-20 (mg/dL) Final Creatinine 08/14/2023 07:03:49 1.4 Above high normal 0.5-1.0 (mg/dL) Final Glomerular filtration rate/1.73 sq M.predicted [Volume Rate/Area] in Serum, Plasma or Blood by Creatinine-based formula (CKD-EPI) 08/14/2023 07:03:49 39 Below low normal >=60 (mL/min) Final eGFR is calculated based on the CKD-EPI 2020 equation SODIUM 08/14/2023 07:03:49 136 135-146 (m mol/L) Final Potassium 08/14/2023 07:03:49 5.4 Above high normal 3. 5-5.1 (mmol/L) Final Result may be falsely elevat ed due to hemolysis. Cl 08/14/2023 07:03:49 98 98-107 (mm ol/L) Final CO2 08/14/2023 07:03:49 23 22-32 (mmo l/L) Final Anion gap 08/14/2023 07:03:49 15 7-15 (mmol /L) Final Glucose 08/14/2023 07:03:49 71 70-120 (mg /dL) Final Calcium 08/14/2023 07:03:49 8.3 Below low normal 8.4 -10.2 (mg/dL) Final Performing Location [facility] [place] [address]
--- OUTSIDE RECORDS SUMMARY | 2023-08-20 11:36 | External Medical Summary | Summary of Care ---
Author Name Unknown Organization [facility] Address [address] [facility] [address] Phone [phone] Care Team Providers Care Application Support Consultant Name Role Phone Giorgio Salas DO Primary Care Provider [phone] [phone] Reason for Visit * Reason Onset Date Comments Medication Refill 08/15/2023 Encounter Details Date Type Department Care Team (Late st Contact Info) Description 08/15/2023 Refill Family Practice [facility] [place] [address] [facility] [place] [address] Giorgio Salas DO [address] [facility] [place] [address] MEDICATION USE AGREEMENT; Controlled substance agreement signed; Primary osteoarthritis of both shoulders Allergies Active Allergy Reactions Criticality Noted Date Comments Salicylates Itching 11/27/1999 Aspirin Sulfa Antibiotics Other (Please comment) 1998 Unsure, happened during a hospital admission. documented as of this encounter (statuses as of 08/15/2023) Medications Medication Sig Dispensed Refills Start Date [...] bedtime. 60 Each 11 10/03/2022 Active Nystatin 942741 UNIT/GM External Cream Apply topically to affected [...] Pain, Moderate. 60 Tablet 0 08/15/2023 Active traMADol HCl 50 MG Oral Tablet (Ultram)Indications :MEDICATION USE AGREEMENT,Controlle d substance agreement signed,Primary osteoarthritis of both shoulders Take 1 Tablet by mouth 2 times a day as needed for Pain, Moderate. 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 Anticoagulation management encounter 02/23/2002 History of DVT (deep vein thrombosis) 02/23/2002 History of pulmonary embolism 02/23/2002 documented as of this encounter (statuses as of 08/15/2023) Resolved Problems Problem Noted Date Diagnosed Date [...] as of this encounter (statuses as of 08/15/2023) Immunizations Name Administration Dates Next Due COVID-19 mRNA, LNP-s, No Pre serve, 2-Dose Series (Fit Fugitives) 08/29/2021,12/30/2020,12/07/2020 H1N1 2009 Influenza, IM 10/17/2009 PPD [...] encounter Miscellaneous Notes * Telephone Encounter - Beckie Swanson DO - 08/15/2023 12:47 PM EST Signed Prescriptions: Disp Refills traMADol HCl 50 MG Oral Tablet (Ultram) 60 Tab*0 Sig: Take 1 Tablet by mouth 2 times a day as needed for Pain, Moderate. Authorizing Provider: BECKIE SWANSON * Telephone Encounter - Geovanna Vargas LPN - 08/15/2023 9:09 AM EST Pending Prescriptions: Disp Refills traMADol HCl 50 MG Oral Tablet (Ultram) 60 Tab*0 Sig: Take 1 Tablet by mouth 2 times a day as needed for Pain, Moderate. Last Visit: 06/07/2023 (in office), 06/28/2020 (telemedicine) Next Visit: 11/22/2023 Last date the medication was ordered: 07/15/23 Patient Active Problem List Diagnosis Code Anticoagulation management encounter Z51.81, Z79.01 History of DVT (deep vein thrombosis) Z86.718 History of pulmonary embolism Z86.711 Dyslipidemia, goal LDL below 70 E78.5 DYSFUNCT EUSTACHIAN TUBE H69.90 snf current use of anticoagulant therapy Z79.01 History of colonic polyps Z86.010 Irritable bowel syndrome K58.9 VARIANTS OF MIGRAINE WITH INTRACTABLE MIGRAINE, SO STATED G43.819 Dyslipidemia E78.5 Dependence on supplemental oxygen Z99.81 Hypothyroidism E03.9 Hypoxemia R09.02 Asthma, mild persistent J45.30 GERD (gastroesophageal reflux disease) K21.9 Family history of prothrombin gene mutation Z83.2 Prothrombin U81494L mutation ([facility]) D68.52 History of positive PPD, untreated R76.11 Osteoarthrosis involving shoulder region M19.019 Enthesopathy of hip M76.899 Nocturnal hypoxia G47.34 Primary osteoarthritis of both knees M17.0 Osteoarthrosis, localized, primary, involving lower leg M17.10 Controlled substance agreement signed Z79.899 Body mass index (BMI) of 40.0 to 44.9 in adult ([facility]) Z68.41 Trochanteric bursitis of both hips M70.61, M70.62 Coronary artery disease involving [place] coronary artery of [place] heart without angina pectoris I25.10 HTN, goal below 130/80 I10 MEDICATION USE AGREEMENT [id number] Impingement syndrome of both shoulders M75.41, M75.42 DDD (degenerative disc disease), lumbar M51.36 Long QT interval R94.31 Unspecified atrial fibrillation ([facility]) I48.91 Hypertensive kidney disease with stage 3a chronic kidney disease I12.9, N18.31 Major depressive disorder, recurrent, unspecified ([facility]) F33.9 Lumbar radiculopathy M54.16 B12 deficiency E53.8 Chronic kidney disease, stage 3a ([facility]) N18.31 Recurrent major depressive disorder, in partial remission ([facility]) F33.41 Chronic right-sided heart failure ([facility]) I50.812 Chronic heart failure with preserved ejection fraction ([facility]) I50.32 Labs: Lab Results Component Value Date/Time CREATININE - [facility] 1.4 (H) 08/14/2023 07:03 AM CREATININE - [facility] 1.0 04/14/2020 02:11 PM CREATININE JORGE LUIS 159 12/02/2017 11:02 AM CREATININE, RANDOM URINE - [facility] 69 09/29/2015 10:28 AM CREATININE-OUTSIDE LAB 1.32 (A) 01/03/2023 12:00 AM Lab Results Component Value Date/Time POTASSIUM - [facility] 5.4 (H) 08/14/2023 07:03 AM POTASSIUM - [facility] 3.8 04/14/2020 02:11 [...] Results Component Value Date/Time HEMOGLOBIN A1C - [facility] 5.6 12/03/2008 01:39 PM documented in this encounter Plan of Treatment Upcoming Encounters Date Type Department Care Team (Late st Contact Info) Description 08/26/2023 10:00 AM EST Office Visit Cardiology, [facility] [address] [facility] [place] [address] Roger Guzman, [address] [facility] [place] [address] 08/26/2023 6:10 PM EST Pharmacy Pharmacy, [facility] [address] [facility] [place] [address] [facility] [address] [place] [address] 10/07/2023 2:00 PM EST Office Visit Rheumatology [place] [address] [place] [address] Alonso Dwyer MD [facility] [place] [address] 11/22/2023 3:00 PM EDT Office Visit Family Practice [facility] [address] [facility] [place] [address] Giorgio Salas, DO [address] [facility] [place] [address] 02/04/2024 1:20 PM EDT Office Visit Rheumatology [place] [phone] [place] [address] Alonso Dwyer MD [facility] [place] [address] Scheduled Procedures Name Priority Associated Diagnoses Date/Ti me COLONOSCOPY FLEXIBLE PROXIMAL DIAGNOSTIC Recall History of colon polyps Health Maintenance Due Date Last Done Comments Albumin/Creatinine Ratio 09/29/2016 016, 09/24/2012, 06/13/2011 Depression Screening 04/09/2023 04/09/2022 COVID-19 Vaccine ( - 2022- season) 2023 08/29/2021, 12/30/2020, 12/07/2020 Zoster Vaccines (3 of 3) 06/19/2023 04/24/2023, 05/0 12/2014 CKD PHOS USE SMARTSET 11119 10/12/202309/20, 10/12/2019, 08/18/2018, Additional history exists TSH 01/04/2024 01/03/2023, 03/20, 01/17/2021, Additional history exists GFR 02/13/2024 08/14/2023, 07/20, 07/19/2023, Additional history exists CKD HGB USE SMARTSET 53133 08/13/202408/13, 01/24/2023, 01/24/2023, Additional history exists DXA Scan 04/16/2029 [...] Documents on File Type Date Recorded Patient Repairer Helper Expl anation Advance Directives and Living Will 05/01/2022 ADVANCE DIRECTIVE / LIVING WILL Power of Warehouse Assembly Worker 05/01/2022 POWER OF A TTORNEY Latest Code Status on File Code Status Date Activated Date Inactivated Comments Full Code 10/11/2019 7:48 PM 10/12/2019 8:11 PM This order reflects the patients wishes and were consensually agreed upon. Question Answer Comments Discussion of Advance Directives occurred with: Not Discussed Does the patient have a Living Will? No Does the patient have Health Care Power of Warehouse Assembly Worker? No Care Teams Application Support Consultant Relationship Specialty Start Date End Date Giorgio Salas DO [address] [place] [address] PCP - General Family Medicine 02/15/17 documented as of this encounter
--- OUTSIDE RECORDS SUMMARY | 2023-08-20 11:36 | External Medical Summary | Summary of Care ---
Author Name Unknown Organization [facility] Address [address] [facility] [place] [address] Phone [phone] Care Team Providers Care Traffic Rate Clerk Name Role Phone IsidoroGiorgio ontiveros Primary Care Provider [phone] [phone] Reason for Visit * Reason Onset Date Comments Appointment 07/31/2023 Encounter Details Date Type Department Care Team (Late st Contact Info) Description 07/31/2023 Telephone Cardiology, [facility] [address] [facility] [phone] Kamryn Freeman CRNP [address] [facility] [address] Appointment Allergies Active Allergy Reactions Criticality Noted [...] hours 10 Tablet 5 01/24/2023 Active Nystatin 939271 UNIT/GM External Cream Apply topically to affected [...] AGREEMENT 10/29/2017 Coronary artery disease invo lving [place] coronary artery of [place] heart without angina pectoris 10/28/2017 HTN, goal [...] History of positive PPD, untreated 08/10/2013 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 GDMT scaled back. JUDAH Mascorro * Telephone Encounter - Angelica Griffiths OSA - 08/01/2023 11:11 AM EST HD scheduled 08/26 @ 10:[address] Guzman. This is the first opening. * Telephone Encounter - Kamryn Freeman CRNP - 07/31/2023 11:17 AM EST Patient admitted to [facility] on 07/26. Anticipate Discharge within the next 24 to 48 hours. Scheduling: Please assist with [facility] follow-up within the next 2 weeks. Patient has followed with Dr. Guzman and Ning King PA-C in the past. If scheduling with AP please allow 60 minutes for this appointment and label appt [facility]. Cards progress note 07/31/2023: 83 yo woman [...] DVT prophylaxis. PT/OT Please mobilize Consider D/C [place] [facility] -Seen by Dr. Ronen Solis documented in this encounter Plan of Treatment Upcoming Encounters Date Type Department Care Team (Late st Contact Info) Description 08/26/2023 10:00 AM EST Office Visit Cardiology, [facility] [address] [place] [address] Roger Guzman, [address] [place] [address] 08/26/2023 6:10 PM EST Pharmacy Pharmacy, [facility] [address] [place] [address] [facility] [address] [place] [address] 10/07/2023 2:00 PM EST Office Visit Rheumatology [place] [phone] [place] [address] Alonso Dwyer MD [address] [place] [address] [place] [address] 11/22/2023 3:00 PM EDT Office Visit Family Practice [facility] [address] [facility] [place] [address] Giorgio Salas, DO [address] [facility] [place] [address] 02/04/2024 1:20 PM EDT Office Visit Rheumatology [place] [address] [place] [address] Alonso Dwyer MD [facility] [place] [address] Scheduled Procedures Name Priority Associated Diagnoses Date/Ti [...] 06/19/2023 04/24/2023, 12/2014 CKD PHOS USE SMARTSET 21439 10/12/202309/20, 10/12/2019, 08/18/2018, Additional history exists TSH 01/04/2024 01/03/2023, 03/20, 01/17/2021, Additional history exists GFR 01/18/2024 07/19/2023, 0603/2023, 01/03/2023, Additional history exists CKD HGB USE SMARTSET 21200 01/25/202401/24, 01/24/2023, 01/03/2023, Additional history exists DXA [...] Documents on File Type Date Recorded Patient Animal Cruelty Investigation Supervisor Expl anation Advance Directives and Living Will 05/01/2022 ADVANCE DIRECTIVE / LIVING WILL Power of Coding Validator 05/01/2022 POWER OF A TTORNEY Latest Code Status on File Code Status Date Activated Date Inactivated Comments Full Code 10/11/2019 7:48 PM 10/12/2019 8:11 PM This order reflects the patients wishes and were consensually agreed upon. Question Answer Comments Discussion of Advance Directives occurred with: Not Discussed Does the patient have a Living Will? No Does the patient have Health Care Power of Coding Validator? No Care Teams Traffic Rate Clerk Relationship Specialty Start Date End Date Giorgio Salas DO [address] [place] [address] PCP - General Family Medicine 02/15/17 documented as of this encounter
--- OUTSIDE RECORDS SUMMARY | 2023-08-20 11:36 | External Medical Summary ---
Author Name Unknown Address Unknown Organization K01:[facility] - [facility] [address] [place] [address] Laboratory Report Ordering Provider Test Date Status CONTRERAS LIAO 07/27/2023 07:43:00 Final Observation Date Value Abnormality Reference (Units ) Status Heparin induced platelet IgG Ab in Serum or Plasma by Immunoassay 07/27/2023 07:43:00 0.081 <0.400 (OD) Final Performing Location [facility] - [address] [place] [address]
--- OUTSIDE RECORDS SUMMARY | 2023-08-20 11:36 | External Medical Summary ---
Author Name Unknown Address Unknown Organization K09:[facility] [place] [address] Laboratory Report Ordering Provider Test Date Status ANIBAL LIU 08/13/2023 06:25:00 Final Observation Date Value Abnormality Reference (Units ) Status WBC, Total 08/13/2023 06:25:00 2.36 Below low normal 4. 00-10.80 (K/uL) Final RBC 08/13/2023 06:25:00 2.44 3.85-5.15 (M/uL) Final Hemoglobin 08/13/2023 06:25:00 8.8 Below low normal 12 .0-15.3 (g/dL) Final HCT 08/13/2023 06:25:00 28.1 Below low normal 36. 0-45.2 (%) Final MCV 08/13/2023 06:25:00 115.2 81.5-97.5 (fL) Final MCH 08/13/2023 06:25:00 36.1 27.0-34.0 (pg) Final MCHC 08/13/2023 06:25:00 31.3 32.0-36.0 (g/dL) Final RDW 08/13/2023 06:25:00 15.4 11.5-15.5 (%) Final Platelets 08/13/2023 06:25:00 176 140-400 (K /uL) Final MPV 08/13/2023 06:25:00 11.0 6.6-11.1 ( fL) Final Performing Location [facility] [place] [address]
[2023-08-20] MEDS ORDERED: PIPERACILLIN/TAZOBACTAM 4.5 GM/100 ML BAG IV ONE (12:20)
[2023-08-20 12:34] LABS: Troponin I High Sensitivity 54.1 pg/ml (0-14)
--- NOTE | 2023-08-20 12:46 | Electrocardiogram Report ---
Test Reason : Blood Pressure : / mmHG Vent. Rate : 075 BPM Atrial Rate : 075 BPM P-R Int : 206 ms QRS Dur : 162 ms QT Int : 458 ms P-R-T Axes : 016 -21 157 degrees QTc Int : 511 ms Normal sinus rhythm Left bundle branch block Abnormal ECG When compared with ECG of 28-JUL-2023 09:05, Nonspecific T wave abnormality now evident in Anterior leads QT has shortened Confirmed by Vimal Knowles ([id number]) on 08/20/2023 12:46:19 PM Referred By: REFERRED SELF Confirmed By:Vimal Knowles
--- NOTE | 2023-08-20 12:47 | History & Physical Report ---
Date of Service August 20, 2023 Assessment & Plan (1) Septic shock: (2) E coli bacteremia: (3) Complicated UTI (urinary tract infection): (4) Acute kidney injury superimposed on CKD: (5) Compensated respiratory acidosis: (6) Influenza A: (7) PAF (paroxysmal atrial fibrillation): (8) HTN, goal below 130/80: (9) Pulmonary embolism: (10) CAD (coronary artery disease): Plan 83 year old female presents to the [facility] via EMS from [facility] after having a complex inpatient hospitalization last month from 07/26/23-08/05/23 for septic shock and pyelonephritis with gram negative rods and E. Coli requiring ICU stabilization and inotropic support with Levo. Tested positive for influenza A while at [facility] as well. She started to become short of breath while at [facility] and they had administered 80 mg of IV Lasix with concerns of a CHF exacerbation. She was placed on BiPAP and route. Numerous Comorbidities including: COPD, HFrEF, HTN, HLD, A-fib, history of PE, history of CVA, hypothyroidism, and GERD. Leukocytosis 15.66, creatinine 1.81, procalcitonin 15.58, magnesium 1.7, UTI with leukocyte esterase 3+, WBC greater than 30, Patient is surprisingly AAOx3 and able to have full meaningful conversation and I do not suspect any encephalopathy. She is able to deny headache, dizziness, lightheadedness, chest pain, palpitations, bowel or bladder changes or recent fa lls. Patient is typically wheelchair-bound but has been working with physical therapy for strengthening. She was lying in her hospital bed with her BiPAP mask on FiO2 50%. We did trial pausing the Levophed however she became hypotensive and her map did not support greater than 65. Patient did tolerate removal of BiPAP mask and maintain saturations greater than 93%. Able to move all extremities and is dry on exam. Per family, patient has not been moving in the right direction since she has been at [facility]; she has decreased appetite and has poor oral fluid intake. Suspect this individual has been over diuresed and with being flu + became hypotensive and SOB. Continued UTI on labs and with visual presentation; continue IV abx taking into consideration renal function. Lengthy conversation with pt and family. Confirmed DNR/DNI. No defib/shock. OK for Bipap and vasopressors. Discussed with ICU Patient Access Coordinator Dr. Byrd. Septic Shock: possible UTI, Bacteremia Acute Leukocytosis 15.66, procalcitonin 15.58 Was started on cefepime in the ED; review of last hospitalization goal was to avoid Vanco due to reduced kidney function. Patient was MRSA positive last admission so we will start Zosyn and await blood culture results Lactate 1.4 Blood and urine cultures ordered MRSA screen ordered Hypotensive in route and in ED; just weaned off of Levo. Monitor BP and keep maps greater than 65 Most recent echo 07/26/2023 with reduced EF 35 to 40% XIN on CKD: Acute Serum creatinine 1.81; received Lasix 80 mg this a.m. for SOB Baseline creatinine 0.7-0.9 Avoid nephrotoxic agents Complicated UTI: Acute UA LE 3+, WBC greater than 30 Was on Cefdinir at [facility]; started on Cefepime and Zosyn in ED Consider avoiding vanco due to worsening renal function HFrEF: SOB: Acute Compensated respiratory acidosis; pH 7.34, CO2 44, HCO3 24 Received Lasix 80 mg via EMS; On Bipap FiO2 50% Trial removal tolerated; on nasal cannula Suspect SOB related to being Flu + Last ECHO 07/26/2023 with reduced EF 35 to 40% and moderate global kinesis Diuretics on hold Influenza A: Acute Tested positive at [facility] per outpatient records; unsure date PCR positive here in ED Supportive treatment Atrial Fibrillation: Chronic Takes Eliquis and Metoprolol; continue HLD: Chronic Takes atorvastatin; continue Hypothyroidism: Chronic Takes Levothyroxine; continue GERD: Chronic Takes Pantoprazole;continue Disposition: PCP: Dr. Salas Code Status: DNR/DNI VTE Prophylaxis: On Eliquis I spent a total of 88 minutes coordinating, documenting, and providing care for this patient excluding time spent in the performance of separately billed services. All of the aforementioned completed while collaborating with the assigned attending physician for a full treatment plan. Please see their addendum for further details. History of Present Illness Chief Complaint: SOB/Complicated UTI/Septic Shock Primary Care Provider: Giorgio Salas DO 83 year old female presents to the [facility] via EMS from [facility] after having a complex inpatient hospitalization last month from 07/26/23-08/05/23 for septic shock and pyelonephritis with gram negative rods and E. Coli requiring ICU stabilization and inotropic support with Levo. Tested positive for influenza A while at [facility] as well. She started to become short of breath while at [facility] and they had administered 80 mg of IV Lasix with concerns of a CHF exacerbation. She was placed on BiPAP and route. Numerous Comorbidities including: COPD, HFrEF, HTN, HLD, A-fib, history of PE, history of CVA, hypothyroidism, and GERD. Leukocytosis 15.66, creatinine 1.81, procalcitonin 15.58, magnesium 1.7, UTI with leukocyte esterase 3+, WBC greater than 30, Per family, patient has not been moving in the right direction since she has been at [facility]; she has decreased appetite and has poor oral fluid intake. Suspect this individual has been over diuresed and with being flu + became hypotensive and SOB. Continued UTI on labs and with visual presentation; co ntinue IV abx taking into consideration renal function. Patient is surprisingly AAOx3 and able to have full meaningful conversation and I do not suspect any encephalopathy. She is able to deny headache, dizziness, lightheadedness, chest pain, palpitations, bowel or bladder changes or recent falls. Patient is typically wheelchair-bound but has been working with physical therapy for strengthening. She was lying in her hospital bed with her BiPAP mask on FiO2 50%. We did trial pausing the Levophed however she became hypotensive and her map did not support greater than 65. Patient did tolerate removal of BiPAP mask and maintain saturations greater than 93%. Able to move all extremities and is dry on exam. Lengthy conversation with pt and family. Confirmed DNR/DNI. No defib/shock. OK for Bipap and vasopressors. Discussed with ICU Patient Access Coordinator Dr. Byrd. Patient will be admitted for further evaluation and management. Please see A/P for further details. Allergies Allergy/AdvReac Type Severity Reaction Status Date / Time aspirin Allergy Intermediate ITCHING Verified 08/20/23 11:42 Sulfa (Sulfonamide Allergy Unknown PER Verified 08/20/23 11:42 Antibiotics) GMG--HAPPENED IN HOSPITAL Home Medications Medication Instructions Recorded Confirmed Type Sodium Chloride 9%, 1,000ml 75 ml IV .HOUR 08/20/23 08/20/23 History acetaminophen 325 mg tablet 650 mg PO Q4 PRN Pain 08/20/23 08/20/23 History (Tylenol) albuterol sulfate 90 mcg/actuation 2 puff inhalation Q4 PRN Shortness 08/20/23 08/20/23 History aerosol inhaler Of Breath Or Wheezing apixaban 5 mg tablet (Eliquis) 5 mg PO BID 08/20/23 08/20/23 History ascorbic acid (vitamin C) 500 mg 250 mg PO DAILY 08/20/23 08/20/23 History tablet (Vitamin C) atorvastatin 20 mg tablet 20 mg PO DAILY 08/20/23 08/20/23 History cefdinir 300 mg capsule 300 mg PO Q12H 08/20/23 08/20/23 History cholecalciferol (vitamin D3) 25 25 mcg PO DAILY 08/20/23 08/20/23 History mcg (1,000 unit) tablet clopidogrel 75 mg tablet 75 mg PO DAILY 08/20/23 08/20/23 History dextromethorphan-guaifenesin 30 1 tab PO BID 08/20/23 08/20/23 History mg-600 mg tablet extended cfuxyup12 hr (Mucinex DM) docusate sodium 100 mg capsule 100 mg PO BID 08/20/23 08/20/23 History duloxetine 30 mg capsule,delayed 60 mg PO BID 08/20/23 08/20/23 History release sprinkle ferrous sulfate 325 mg (65 mg 325 mg PO DAILY 08/20/23 08/20/23 History iron) tablet fluticasone furoate 100 1 inh inhalation DAILY 08/20/23 08/20/23 History mcg-vilanterol 25 mcg/dose inhalation powder (Breo Ellipta) gabapentin 300 mg capsule 300 mg PO TID 08/20/23 08/20/23 History ipratropium 0.5 mg-albuterol 3 mg 3 ml inhalation QID 08/20/23 08/20/23 History (2.5 mg base)/3 mL nebulization soln lasmiditan 50 mg tablet (Reyvow) 50 mg PO DAILY PRN Migraine 08/20/23 08/20/23 History Headache levothyroxine 50 mcg tablet 50 mcg PO DAILY 08/20/23 08/20/23 History magnesium oxide 400 mg PO BIDM 08/20/23 08/20/23 History metoprolol succinate 50 mg 50 mg PO BID 08/20/23 08/20/23 History tablet,extended release 24 hr miconazole nitrate 2 % topical 1 applic topical BID 08/20/23 08/20/23 History powder montelukast 10 mg tablet 10 mg PO HS 08/20/23 08/20/23 History ondansetron HCl 4 mg tablet 4 mg PO Q4 PRN Nausea 08/20/23 08/20/23 History pantoprazole 40 mg tablet,delayed 40 mg PO QAM 08/20/23 08/20/23 History release polyethylene glycol 3350 17 gram 17 g PO DAILY PRN Constipation 08/20/23 08/20/23 History oral powder packet (Miralax) sennosides 8.6 mg-docusate sodium 1 tab-cap PO .DAILY@LUNCH PRN 08/20/23 08/20/23 History 50 mg tablet (Senokot-S) Constipation tramadol 50 mg tablet 50 mg PO Q12 PRN Pain 08/20/23 08/20/23 History Past Med/Surg History Medical History (Updated 08/20/23 @ 16:33 by Yordan Matson PA-C) Influenza A Compensated respiratory acidosis Acute kidney injury superimposed on CKD Complicated UTI (urinary tract infection) Anemia E coli bacteremia Acute kidney injury Abnormal urinalysis Chronic left hip pain Diffuse myofascial pain syndrome Chronic anticoagulation Opioid dependence History of pulmonary embolism Pulmonary edema History of AR (myocardial infarction) 2018 - FOLLOWS W/ DR. JACOBSEN On anticoagulant therapy History of endometriosis Osteoporosis Osteoarthritis Migraine Poor historian History of DVT (deep vein thrombosis) RLE - 20 YEARS AGO FOLLOWING INJURY On home oxygen therapy 2 LPM 02 QHS Sleep apnea NO DEVICE Hypertension Hypothyroidism Asthma USES PRN INH 1 X WK Pulmonary embolism (10/10/12) 20 YEARS AGO AFTER INJURY 30 YEARS AGO - POST OP CHOLEYCYSTECTOMY ON WARFARIN Atrial flutter PT COULD NOT CONFIRM Surgical History History of cardiac cath 2018 - [place] - NO STENTS History of left knee surgery History of tubal ligation History of section History of total abdominal hysterectomy and bilateral salpingo-oophorectomy History of appendectomy History of cholecystectomy History of cataract surgery History of tonsillectomy History of esophagogastroduodenoscopy (EGD) History of colonoscopy Family History Father , age 51 of cancer Esophageal cancer Lung cancer Mother , age 103 No problems noted. 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 [employer] and [employer] Other Information That Helps Us Care for You: No Feels Safe at Home: Yes Assistive Devices: Cane, Denture - Upper, Denture - Lower, Hospital Bed, Nebulizer, Oxygen - Continuous and Walker Review of Systems Review of Systems: Neuro: (-) Falls, trauma, slurred speech HEENT: (-) GARCIA, dizziness, dysphagia, visual or auditory changes CV: (-) CP, palpitations, swelling Resp: (+) SOB GI: (-) appetite changes, N/V/D, bowel changes : (+) urinary changes Skin: (-) rashes Psych: (-) anxiety, depression Physical Exam Physical Exam: Neuro: AAOx4, PERRLA, no aphagia, memory changes, CNII-XII grossly intact HEENT: head normocephalic, dry mucus membranes CV: S1/S2, (-) M/G/R, (-) edema, cap refill < 3 seconds Resp: Lungs CTA in all gilbert. On Bipap FiO2 0.50 GI: Abdomen S/NT/ND, Ax4 bowel sounds, (-) CVA tenderness Musculoskeletal: 5/5 B/L UE strength, 5/5 B/L LE strength. No gait disturbance Skin: (-) rashes , (-) erythema. (+) ecchymosis Psych: euthymic mood Results & Data Results & Data Vital Signs (Past 12 Hours) Vital Signs Temp Pulse Pulse Resp BP BP Pulse Ox 08/20/23 12:40 70 22 122/53 L 96 08/20/23 12:35 71 23 124/86 95 08/20/23 12:30 75 22 120/87 93 08/20/23 12:20 74 21 116/73 98 08/20/23 12:15 75 20 99/60 L 93 08/20/23 12:10 76 21 144/76 H 99 08/20/23 11:45 73 19 117/64 94 08/20/23 11:15 74 20 113/57 L 95 08/20/23 11:10 73 19 112/55 L 96 08/20/23 11:00 76 16 105/49 L 08/20/23 10:37 95 08/20/23 10:35 73 22 101/49 L 94 08/20/23 10:30 73 21 90 08/20/23 10:30 93/43 L 08/20/23 10:20 74 24 94 08/20/23 10:20 88/54 L 08/20/23 10:14 90/52 L 08/20/23 10:14 74 17 95 08/20/23 10:10 76 17 90/52 L 100 08/20/23 10:00 77 20 93 08/20/23 09:50 78 17 95 08/20/23 09:50 77 17 96 08/20/23 09:49 100 08/20/23 09:49 37.3 C 77 20 70/53 L 90 08/20/23 09:47 80 25 H 92 08/20/23 09:47 82 08/20/23 09:44 83 25 H O2 Del Method FiO2 08/20/23 12:40 BiPAP 08/20/23 12:35 BiPAP 08/20/23 12:30 BiPAP 08/20/23 12:20 BiPAP 08/20/23 12:15 BiPAP 08/20/23 12:10 BiPAP 08/20/23 11:45 BiPAP 08/20/23 11:15 BiPAP 08/20/23 11:10 BiPAP 08/20/23 11:00 BiPAP 08/20/23 10:37 Nasal CPAP 50 08/20/23 10:35 08/20/23 10:30 08/20/23 10:30 08/20/23 10:20 CPAP 08/20/23 10:20 08/20/23 10:14 08/20/23 10:14 08/20/23 10:10 08/20/23 10:00 08/20/23 09:50 50 08/20/23 09:50 08/20/23 09:49 CPAP 08/20/23 09:49 Nasal CPAP 60 08/20/23 09:47 08/20/23 09:47 08/20/23 09:44 Laboratory Results Short CBC 08/20/23 Range/Units 09:57 WBC 15.66 H (4.8-10.8) K/ul Hgb 8.7 L (12.0-16.0) g/dl Hct 27.5 L (37.0-47.0) % Plt Count 218 (130-400) K/uL BMP 08/20/23 09:57 Sodium 135 L Potassium 4.9 Chloride 103 Carbon Dioxide 23 BUN 23 Creatinine 1.81 H Glucose 70 Calcium 7.9 L Liver Function 08/20/23 Range/Units 09:57 Total Bilirubin 1.2 H (0.2-1.0) mg/dl Direct Bilirubin 0.4 H (0-0.2) mg/dl AST 14 (13-39) U/L ALT 4 L (7-52) U/L Alkaline Phosphatase 52 (34-104) U/L Albumin 2.8 L (3.4-5.0) gm/dl Urine 08/20/23 Range/Units 10:12 Urine Color Dark Yellow Urine Appearance Turbid A (Clear) Urine pH 5.0 (4.5-7.5) Ur Specific [place] 1.018 (1.000-1.030) Urine Protein 1+ H (Negative) Urine Glucose (UA) Negative (Negative) Diagnostic Findings Chest X-Ray 08/20/23 09:49 SINGLE VIEW CHEST CLINICAL HISTORY: Sepsis. FINDINGS: An AP, portable, upright chest radiograph is compared to study dated 07/27/2023 and correlated with chest CT dated 03/28/2022. The examination is degraded by portable technique and patient rotation. The heart is not enlarged noting atherosclerotic calcification of the thoracic aorta. The pulmonary vasculature is noncongested. Chronic interstitial thickening is similar to previous. There is chronic elevation of right hemidiaphragm with bibasilar atelectasis. No airspace consolidation typical for pneumonia or large pleural effusion is identified. No pneumothorax is seen. The skeletal structures are osteopenic. The bony thorax is grossly intact. Advanced arthritic change is seen in the shoulders. Cholecystectomy clips are noted in the right upper quadrant. IMPRESSION: No acute cardiopulmonary abnormality is identified. ACT 112: Negative or not required by law. Electronically signed by: Vladislav Curiel M.D. 08/20/2023 10:27 AM Code Status & VTE Plan Code Status DNR/DNI in the event of cardiac or respiratory arrrest Supervising Physician Co-Signing Physician Notes Attending Addendum: care coordinated with JUDAH Treviño please refer to her notes for full details, I agree with her notes patient seen and examined, records reviewed by myself as well diagnoses and plan of care as per JUDAH Whyte MD
[2023-08-20] MEDS ORDERED: ALUMINUM/MAGNESIUM SUSP 30 ML UDC PO PRN (13:23)
[2023-08-20] MEDS ORDERED: POLYETHYLENE (MIRALAX) 17 GM PACK PO PRN (13:23)
[2023-08-20] MEDS ORDERED: MAGNESIUM HYDROXIDE SUSP 30 ML UDC PO PRN (13:23)
[2023-08-20 14:54] LABS: Phosphorus 2.4 mg/dl (2.5-4.9)
[2023-08-20] MEDS: PLASMA-LYTE A 1,000 ML IV SCH (16:30)
--- NOTE | 2023-08-20 16:31 | Critical Care Consultation ---
Date of Consultation August 20, 2023 Assessment & Plan (1) Influenza A: (2) Shortness of breath: (3) Acute UTI (urinary tract infection): (4) Septic shock: (5) Diarrhea: Plan Reason Critically Ill: 83-year-old female presenting with severe sepsis and septic shock in setting of UTI with associated respiratory failure in the setting of influenza A. Concerns for diarrheal mike stools as well. NEURO - * CAM ICU: NEGATIVE * Patient does appear to have a slight degree of encephalopathy likely related to her acuity of illness. She is otherwise able to answer historical information relatively appropriately, however she did have some issues with where she is currently residing and recent historical information. * No focal neurological findings on exam. CARDIAC/VASCULAR - * Hypotension: * Multifactorial in the 83-year-old female with septic shock and hypovolemia. * Patient likely initially with profound septic shock and distributive issues and had received 80 of IV Lasix with concerns for respiratory distress which further resulted in fluid wasting. * She received 2 L crystalloid in the emergency department. This was held further secondary to her history of heart failure with reduced ejection fraction of 35%. * She is clinically dry on exam at this point and is with persistent diarrhea. Her urine output is dropped as well. Will order Plasma-Lyte at 100 MLS per hour. * She may benefit from boluses throughout the evening as well depending on her urine output. * Currently on Levophed 0.05 mcg/kg/min. Titrate down to off as tolerated. * Monitor on telemetry. RESPIRATORY - * Respiratory distress: * Patient initially presented with concerns for respiratory distress. VBG shows a slight acidosis without hypoxia. * BiPAP was removed and the patient remains tolerating well on nasal cannula. She requires 2 L nasal cannula at night at baseline. * May be secondary to the patient's current influenza infection. * Monitor for decline in respiratory symptoms. She appears well at this time, however. * Will add chest CT without contrast as we are imaging the patient's abdomen/pelvis to evaluate for any infiltrative processes that may be poorly differentiated on plain chest x-ray. * Asthma: * Previously documented. * Unable to appreciate prior pulmonary outpatient workups or PFTs. * Not bronchospastic on exam today. * Likely not in an exacerbation at this moment. GI/NUTRITION - * Diarrhea/mike stools: * Patient reports ongoing symptoms of diarrhea for the last several days. * This is likely contributing largely to the patient's hypovolemia, hypotension, and possibly source of patient's urinary tract infection as well. * Will check stool cultures/C. diff as well. * Nursing staff noted mike/dark brown-colored stools upon arrival in the ICU. * Order placed for Hemoccult study of the stools as well as trending her hemoglobin hematocrit every 6 hours. * Will place on BID Protonix for now as well. * No overt GIB appreciated at this time. * Prophylaxis: Protonix BID RENAL/LYTES - * XIN on CKD III: * Multifactorial in the setting of sepsis and profound hypovolemia. * Will add IVF for now and monitor urine output. * Replace electrolytes as needed. * IVF: Plasmalyte @ 100 mL/hr - * UTI: * In the setting of indwelling Waddell catheter. * Previous blood and urine cultures positive for pansensitive E. coli. * Will image abd/pelvis to assess for ??pyelo or retained stone which may complicate patient's clinical course. * Waddell in place - Strict I&Os. ENDO - * BSGs per unit protocol. ISS --> gtt per unit policy. * Hypothyroidism: * Continue home Levothyroxine dosing. HEME - * Stable Anemia. * Will trend in the setting of ??mike stools and potential for dilution in the setting of aggressive resuscitation. ID - * Severe sepsis with septic shock in the setting of urinary source: * Previously with pansensitive E. coli. * Covered with Zosyn for now. * Can likely deescalate soon. * Will evaluate for ?? retained stone that might make treatment more complicated. * MRSA nasal swab pending. LINES/IV ACCESS - * PIVs x2 * Waddell DVT PROPHYLAXIS - * Hold on anticoagulation while evaluated ??mike stools. * SCDs I have personally spent 56 minutes of critical care time in the direct management of this patient. This is a life/limb threatening event. This includes time spent evaluating patient, direct bedside care, chart review, placing orders, interpretation of diagnostic studies, discussion with consultants, patient, and family members, as well as other required patient management activities. This time is exclusive of all separately billable procedures, and teaching time and separate from and in addition to any other critical care service time. Thank you for allowing us to participate in the care of this patient. Please refer to my attending physician's documentation for any further recommendations. Supervising Physician Co-Signing Physician Notes I have personally evaluated and examined this patient. I agree with assessment and plan of Seb Matson PA-C. History of Present Illness Reason for Consultation: inotropic support Requesting Physician: JUDAH Lua Attending Physician: Luis Whyte MD History of Present Illness Patient is an 83-year-old female with a significant past medical history of hyperlipidemia, hypothyroidism, asthma, chronic hypoxic respiratory failure on 2 L at nighttime, chronic RIGHT-sided heart failure, history of coronary artery disease, hypertension, long QT interval, history of A-fib, IBS, GERD, B12 deficiency, CKD 3, migraines, history of DVT and PE anticoagulated on Eliquis, and wheelchair-bound state who is currently residing [facility]. Patient was found to be in respiratory distress after recent diagnosis of influenza A at the facility. She was brought to the emergency department after she had received 80 of IV Lasix with concerns for CHF exacerbation. She received push dose epinephrine pressors and route to the emergency department for hypotension. She received 2 L crystalloid and eventually was started on Levophed for persistent hypotension. Urine consistent with UTI. Chest x-ray without acute findings. She had been placed on BiPAP which she reports she did not feel as though she needed. Otherwise, the patient reports feeling better than when she arrived. She reports a very dry mouth and lips. She has had diarrhea for the last few days as well. She denies complaints of headaches, dizziness, lightheadedness, chest pain, palpitations, hemoptysis, or briseida red bloody stools. Allergies Allergy/AdvReac Type Severity Reaction Status Date / Time aspirin Allergy Intermediate ITCHING Verified 08/20/23 11:42 Sulfa (Sulfonamide Allergy Unknown PER Verified 08/20/23 11:42 Antibiotics) GMG--HAPPENED IN HOSPITAL Home Medications Medication Instructions Recorded Confirmed Type Sodium Chloride 9%, 1,000ml 75 ml IV .HOUR 08/20/23 08/20/23 History acetaminophen 325 mg tablet 650 mg PO Q4 PRN Pain 08/20/23 08/20/23 History (Tylenol) albuterol sulfate 90 mcg/actuation 2 puff inhalation Q4 PRN Shortness 08/20/23 08/20/23 History aerosol inhaler Of Breath Or Wheezing apixaban 5 mg tablet (Eliquis) 5 mg PO BID 08/20/23 08/20/23 History ascorbic acid (vitamin C) 500 mg 250 mg PO DAILY 08/20/23 08/20/23 History tablet (Vitamin C) atorvastatin 20 mg tablet 20 mg PO DAILY 08/20/23 08/20/23 History cefdinir 300 mg capsule 300 mg PO Q12H 08/20/23 08/20/23 History cholecalciferol (vitamin D3) 25 25 mcg PO DAILY 08/20/23 08/20/23 History mcg (1,000 unit) tablet clopidogrel 75 mg tablet 75 mg PO DAILY 08/20/23 08/20/23 History dextromethorphan-guaifenesin 30 1 tab PO BID 08/20/23 08/20/23 History mg-600 mg tablet extended [id number] hr (Mucinex DM) docusate sodium 100 mg capsule 100 mg PO BID 08/20/23 08/20/23 History duloxetine 30 mg capsule,delayed 60 mg PO BID 08/20/23 08/20/23 History release sprinkle ferrous sulfate 325 mg (65 mg 325 mg PO DAILY 08/20/23 08/20/23 History iron) tablet fluticasone furoate 100 1 inh inhalation DAILY 08/20/23 08/20/23 History mcg-vilanterol 25 mcg/dose inhalation powder (Breo Ellipta) gabapentin 300 mg capsule 300 mg PO TID 08/20/23 08/20/23 History ipratropium 0.5 mg-albuterol 3 mg 3 ml inhalation QID 08/20/23 08/20/23 History (2.5 mg base)/3 mL nebulization soln lasmiditan 50 mg tablet (Reyvow) 50 mg PO DAILY PRN Migraine 08/20/23 08/20/23 History Headache levothyroxine 50 mcg tablet 50 mcg PO DAILY 08/20/23 08/20/23 History magnesium oxide 400 mg PO BIDM 08/20/23 08/20/23 History metoprolol succinate 50 mg 50 mg PO BID 08/20/23 08/20/23 History tablet,extended release 24 hr miconazole nitrate 2 % topical 1 applic topical BID 08/20/23 08/20/23 History powder montelukast 10 mg tablet 10 mg PO HS 08/20/23 08/20/23 History ondansetron HCl 4 mg tablet 4 mg PO Q4 PRN Nausea 08/20/23 08/20/23 History pantoprazole 40 mg tablet,delayed 40 mg PO QAM 08/20/23 08/20/23 History release polyethylene glycol 3350 17 gram 17 g PO DAILY PRN Constipation 08/20/23 08/20/23 History oral powder packet (Miralax) sennosides 8.6 mg-docusate sodium 1 tab-cap PO .DAILY@LUNCH PRN 08/20/23 08/20/23 History 50 mg tablet (Senokot-S) Constipation tramadol 50 mg tablet 50 mg PO Q12 PRN Pain 08/20/23 08/20/23 History Patient History Medical History (Updated 08/20/23 @ 16:33 by Yordan Matson PA-C) Influenza A Compensated respiratory acidosis Acute kidney injury superimposed on CKD Complicated UTI (urinary tract infection) Anemia E coli bacteremia Acute kidney injury Abnormal urinalysis Chronic left hip pain Diffuse myofascial pain syndrome Chronic anticoagulation Opioid dependence History of pulmonary embolism Pulmonary edema History of [place] (myocardial infarction) 2018 - FOLLOWS W/ DR. JACOBSEN On anticoagulant therapy History of endometriosis Osteoporosis Osteoarthritis Migraine Poor historian History of DVT (deep vein thrombosis) RLE - 20 YEARS AGO FOLLOWING INJURY On home oxygen therapy 2 LPM 02 QHS Sleep apnea NO DEVICE Hypertension Hypothyroidism Asthma USES PRN INH 1 X WK Pulmonary embolism (10/10/12) 20 YEARS AGO AFTER INJURY 30 YEARS AGO - POST OP CHOLEYCYSTECTOMY ON WARFARIN Atrial flutter PT COULD NOT CONFIRM Surgical History History of cardiac cath 2018 - [place] - NO STENTS History of left knee surgery History of tubal ligation History of section History of total abdominal hysterectomy and bilateral salpingo-oophorectomy History of appendectomy History of cholecystectomy History of cataract surgery History of tonsillectomy History of esophagogastroduodenoscopy (EGD) History of colonoscopy Family History Father , age 51 of cancer Esophageal cancer Lung cancer Mother , age 103 No problems noted. 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 All else were negative. Physical Exam Physical Exam: VITAL SIGNS - Vital signs and nursing notes were reviewed. GENERAL - 83-year-old female appearing her stated age who is in no acute distress. Communicates well with provider and answers questions appropriately. SKIN - Without rashes. HEAD - NC/AT. EYES - PERRL with EOMI bilaterally. Sclera anicteric. EARS - No deformities of external structures noted on gross examination bilaterally. NOSE - Midline and without cyanosis. MOUTH/OROPHARYNX - Without perioral cyanosis. Buccal mucosa pink extremely dry. NECK - Neck with FROM. LUNGS - Chest wall symmetric without accessory muscle use, intercostals retractions, or central cyanosis. Normal vesicular breath sounds CTA B/L. No wheezes, rales, or rhonchi appreciated. CARDIAC - RRR with S1/S2. No murmur, rubs, or gallops appreciated. ABDOMEN - Abdominal contour obese without pulsations or visible masses. BS normoactive all four quadrants. No tenderness, palpable masses, hepatosplenomegaly, or ascites noted. EXTREMITIES - No clubbing or peripheral cyanosis. No pretibial edema present. +3/5 radial and dorsalis pedis pulses palpated throughout. +5/5 strength noted in UE/LE bilaterally. NEUROLOGIC - Cranial nerves II through XII grossly intact. PSYCH - A&Ox3 and cooperates fully with examiner. Pt is very pleasant and interacts well with examiner. Results & Data Results & Data Vital Signs (Past 12 Hours) Vital Signs Temp Pulse Pulse Resp BP BP Pulse Ox 08/20/23 15:30 71 21 103/70 97 08/20/23 15:06 84 20 114/47 L 95 08/20/23 14:55 08/20/23 14:39 36.7 C 75 18 107/51 L 95 08/20/23 14:28 77 20 107/51 L 95 08/20/23 14:16 71 18 112/55 L 94 08/20/23 13:30 74 20 115/61 95 08/20/23 13:28 96 08/20/23 13:15 75 21 114/55 L 95 08/20/23 13:10 71 18 109/58 L 96 08/20/23 13:05 72 18 94/45 L 93 08/20/23 13:00 72 19 97/51 L 99 08/20/23 12:50 71 18 121/63 96 08/20/23 12:45 73 22 98/72 L 96 08/20/23 12:40 70 22 122/53 L 96 08/20/23 12:35 71 23 124/86 95 08/20/23 12:30 75 22 120/87 93 08/20/23 12:20 74 21 116/73 98 08/20/23 12:15 75 20 99/60 L 93 08/20/23 12:10 76 21 144/76 H 99 08/20/23 11:45 73 19 117/64 94 08/20/23 11:15 74 20 113/57 L 95 08/20/23 11:10 73 19 112/55 L 96 08/20/23 11:00 76 16 105/49 L 08/20/23 10:37 95 08/20/23 10:35 73 22 101/49 L 94 08/20/23 10:30 73 21 90 08/20/23 10:30 93/43 L 08/20/23 10:20 74 24 94 08/20/23 10:20 88/54 L 08/20/23 10:14 90/52 L 08/20/23 10:14 74 17 95 08/20/23 10:10 76 17 90/52 L 100 08/20/23 10:00 77 20 93 08/20/23 09:50 78 17 95 08/20/23 09:50 77 17 96 08/20/23 09:49 100 08/20/23 09:49 37.3 C 77 20 70/53 L 90 08/20/23 09:47 80 25 H 92 08/20/23 09:47 82 08/20/23 09:44 83 25 H O2 Del Method FiO2 08/20/23 15:30 BiPAP 40 08/20/23 15:06 BiPAP 40 08/20/23 14:55 BiPAP 40 08/20/23 14:39 BiPAP 40 08/20/23 14:28 BiPAP 40 08/20/23 14:16 BiPAP 40 08/20/23 13:30 BiPAP 08/20/23 13:28 BiPAP 40 08/20/23 13:15 BiPAP 40 08/20/23 13:10 BiPAP 08/20/23 13:05 Room Air 50 08/20/23 13:00 BiPAP 50 08/20/23 12:50 BiPAP 50 08/20/23 12:45 BiPAP 08/20/23 12:40 BiPAP 08/20/23 12:35 BiPAP 08/20/23 12:30 BiPAP 08/20/23 12:20 BiPAP 08/20/23 12:15 BiPAP 08/20/23 12:10 BiPAP 08/20/23 11:45 BiPAP 08/20/23 11:15 BiPAP 08/20/23 11:10 BiPAP 08/20/23 11:00 BiPAP 08/20/23 10:37 Nasal CPAP 50 08/20/23 10:35 08/20/23 10:30 08/20/23 10:30 08/20/23 10:20 CPAP 08/20/23 10:20 08/20/23 10:14 08/20/23 10:14 08/20/23 10:10 08/20/23 10:00 08/20/23 09:50 50 08/20/23 09:50 08/20/23 09:49 CPAP 08/20/23 09:49 Nasal CPAP 60 08/20/23 09:47 08/20/23 09:47 08/20/23 09:44 Coding Level of Care Code 05563 CRITICAL CARE 1ST 30-74M Diagnoses Influenza A J10.1 Shortness of breath R06.02 Acute UTI (urinary tract infection) N39.0 Septic shock A41.9; R65.21 Diarrhea R19.7
[2023-08-20 16:59] LABS: Hematocrit (blood only) 24.9 % (37.0-47.0)
[2023-08-20 18:36] LABS: Adenovirus F 40/41 PCR Not Detected (NotDetected); Astrovirus PCR Not Detected (NotDetected); Campylobacter PCR Not Detected (NotDetected); Cryptosporidium PCR Not Detected (NotDetected); Cyclospora cayetanensis PCR Not Detected (NotDetected); Entamoeba histolytica PCR Not Detected (NotDetected); Enteroaggregative E.coli(EAEC) Not Detected (NotDetected); Enterotoxigenic E.coli (ETEC) Not Detected (NotDetected); Giardia lamblia PCR Not Detected (NotDetected); Norovirus GI/GII PCR Not Detected (NotDetected); Plesiomonas shigelloides PCR Not Detected (NotDetected); Rotavirus A PCR Not Detected (NotDetected); Salmonella PCR Not Detected (NotDetected); Sapovirus PCR Not Detected (NotDetected); Shiga-like Toxin E.coli (STEC) Not Detected (NotDetected); Shigella/Enteroinvasive E.coli Not Detected (NotDetected); Vibrio cholerae PCR Not Detected (NotDetected); Vibrio species PCR Not Detected (NotDetected); Yersinia enterocolitica PCR Not Detected (NotDetected)
[2023-08-20 18:48] LABS: Enteropathogenic E.coli (EPEC) DETECTED (NotDetected)
--- NOTE | 2023-08-20 20:09 | CT Scan Report ---
Exam(s): CT ABDOMEN + PELVIS Without Contrast EXAM: CT Abdomen and Pelvis Without Intravenous Contrast CLINICAL HISTORY: Sepsis. TECHNIQUE: Axial computed tomography images of the abdomen and pelvis without intravenous contrast. CTDI is 22.12 mGy and DLP is 1389 mGy-cm. Automated exposure control was utilized for the study. A dose lowering technique was utilized adhering to the principles of ALARA. COMPARISON: CT abdomen and pelvis 07/27/2023 FINDINGS: ABDOMEN: Liver: Unremarkable. Gallbladder and bile ducts: Unremarkable. No calcified stones. No ductal dilation. Pancreas: Unremarkable. No ductal dilation. Spleen: Unremarkable. No splenomegaly. Adrenals: Unremarkable. No mass. Kidneys and ureters: There is new inflammatory stranding surrounding the right pelvis concerning for ascending infection. Stable postsurgical changes of the right kidney with a chronic right-sided capsular hematoma. No obstructing stones. No hydronephrosis. Stomach and bowel: Unremarkable. No obstruction. No mucosal thickening. PELVIS: Appendix: No findings to suggest acute appendicitis. Bladder: The urinary bladder is decompressed secondary to a Waddell catheter. No stones. Reproductive: Unremarkable as visualized. ABDOMEN and PELVIS: Intraperitoneal space: Unremarkable. No free air. No significant fluid collection. Bones/joints: Degenerative changes spine. Stable chronic T12 and L3 compression fracture. No dislocation. Soft tissues: Unremarkable. Vasculature: Mild atherosclerotic disease. No abdominal aortic aneurysm. Lymph nodes: Unremarkable. No enlarged lymph nodes. Other findings: There is elevation of the right hemidiaphragm. IMPRESSION: 1. There is new inflammatory stranding surrounding the right pelvis concerning for ascending infection. 2. Mild atherosclerotic disease. Electronically signed by: Becca Smart MD 08/20/23 20:09 PM
--- NOTE | 2023-08-20 20:11 | CT Scan Report ---
Exam(s): CT CHEST Without Contrast EXAM: CT Chest Without Intravenous Contrast CLINICAL HISTORY: Shortness of breath. TECHNIQUE: Axial computed tomography images of the chest without intravenous contrast. CTDI is 22.12 mGy and DLP is 1389 mGy-cm. Automated exposure control was utilized for the study. A dose lowering technique was utilized adhering to the principles of ALARA. COMPARISON: Chest radiograph 07/27/2023 FINDINGS: Lungs: Basilar airspace opacities in addition to subtle reticulonodular densities of the upper lobe are concerning for multifocal pneumonia and/or aspiration. Superimposed bibasilar atelectasis is suspected. Pleural space: Unremarkable. No pneumothorax. No significant effusion. Heart: Unremarkable. No cardiomegaly. No significant pericardial effusion. No significant coronary artery calcifications. Bones/joints: There are degenerative changes of the spine. No acute fracture. Chronic T12 compression fracture. No dislocation. Soft tissues: Unremarkable. Vasculature: Unremarkable. No thoracic aortic aneurysm. Lymph nodes: Unremarkable. No enlarged lymph nodes. Upper abdomen: There is elevation of the right hemidiaphragm. IMPRESSION: 1. Basilar airspace opacities in addition to subtle reticulonodular densities of the upper lobe are concerning for multifocal pneumonia and/or aspiration. Superimposed bibasilar atelectasis is suspected. 2. There is elevation of the right hemidiaphragm. Electronically signed by: Becca Smart MD 08/20/23 20:11 PM
[2023-08-20] MEDS: PANTOprazole 40 MG in SYRINGE 0 ML IV SCH (21:24)
[2023-08-20] MEDS: PIPERACILLIN/TAZOBACTAM 4.5 GM in DEXTROSE 5% MINI-B 100 ML IV SCH (21:24)
[2023-08-20 22:58] LABS: Hematocrit (blood only) 24.6 % (37.0-47.0); Hemoglobin 7.8 g/dl (12.0-16.0)
[2023-08-21] MEDS: PLASMA-LYTE A 1,000 ML IV SCH (02:08)
[2023-08-21] MEDS: PIPERACILLIN/TAZOBACTAM 4.5 GM in DEXTROSE 5% MINI-B 100 ML IV SCH ×3 (03:25→20:40)
[2023-08-21] MEDS: ACETAMINOPHEN 325 MG TAB PO PRN (04:10)
[2023-08-21 05:15] LABS: Albumin Globulin Ratio 0.9 (0.9-2); Albumin Level 2.4 gm/dl (3.4-5.0); BUN Creatinine Ratio 16.8 (10-20); Bilirubin,Total 1.1 mg/dl (0.2-1.0); Calcium 7.1 mg/dl (8.6-10.3); Creatinine Clr Calc Pharmacy 25.3 ml/min; Est GFR (African American) 31.5 ml/min; Est GFR (Non-African American) 27.2 ml/min; Globulin 2.8 gm/dl (2.5-4.0); Magnesium 1.6 mg/dl (1.7-2.4); Potassium 4.3 mmol/L (3.5-5.1); Total Protein 5.2 gm/dl (6.0-8.3)
[2023-08-21 06:07] LABS: Hematocrit (blood only) 20.6 % (37.0-47.0); Hemoglobin 6.6 g/dl (12.0-16.0); Mean Corpuscular Hemoglobin 35.3 pg (25.0-34.0); Mean Corpuscular Volume 110.2 fL (80.0-100.0); Mean Platelet Volume 10.7 fL (9.4-12.4); Platelet Count 196 K/uL (130-400); RDW Coefficient of Variation 14.6 % (11.5-14.5); RDW Standard Deviation 58.4 fL (36.4-46.3); Red Blood Count 1.87 M/uL (4.20-5.40); White Blood Count 18.34 K/ul (4.8-10.8)
[2023-08-21] MEDS: MAGNESIUM SULFATE / D5W 1 GM/100 ML BAG IV SCH ×3 (06:31→10:10)
[2023-08-21] MEDS: PANTOprazole 40 MG in SYRINGE 0 ML IV SCH ×2 (08:22→20:41)
--- NOTE | 2023-08-21 08:27 | Critical Care Progress Note ---
Date of Service August 21, 2023 Assessment & Plan (1) Influenza A: (2) Shortness of breath: (3) Acute UTI (urinary tract infection): (4) Diarrhea: (5) Septic shock: Plan Patient is a 83 yo F w/ a PMHx of anemia, Hx of UT, Hx of PE, chronic anticoagulation ( ), pulmonary edema, osteoporosis, osteoarthritis, Hx of DVT, HTN, hypothyroidism, WAYLON/sleep apnea, asthma. Pt has extensive Sg Hx too: cardiac catheterization, l. knee surgery, , JOSSELYN/BSO, appendectomy, ch olecystectomy, cataract surgery, tonsillectomy, EGD, colonoscopy. Presented to hospital with dyspnea, following a positive influenza A-test (decreased appetite, poor oral fluid intake since previous [facility] d/c) while at [facility] after recent hospital stay here at [facility] from 07/26/23 - 08/05/23 due to septic shock, pyelonephritis. Assessment (1) Influenza A: (2) Shortness of breath: (3) Acute UTI (urinary tract infection): (4) Septic shock: (5) Diarrhea: Plan Reason Critically Ill: 83 yo F presenting with severe sepsis and septic shock in setting of UTI with associated respiratory failure in the setting of influenza A. Concerns for continued bloody diarrhea as well. NEURO - * CAM ICU: NEGATIVE * Patient appeared slightly encephalopathic likely related to her acuity of illness. She is otherwise able to answer historical information relatively appropriately, however she did have some issues with where she is currently residing and recent historical information. * No focal neurological findings on exam. CARDIAC/VASCULAR - * Hypotension: * Multifactorial in the 83-year-old female with septic shock and hypovolemia. * Patient likely initially with profound septic shock and distributive issues and had received 80 of IV Lasix with concerns for respiratory distress which further resulted in fluid wasting. * She received 2 L crystalloid in the emergency department. This was held further secondary to her history of heart failure with reduced ejection fraction of 35%. * Clinically dry on exam, with persistent diarrhea upon admission; Urine o utput dropped as well. Plasma-Lyte ordered at 100 mls per hour. * She may benefit from boluses throughout the evening as well depending on her urine output. * BP's continue to be low, currently on Levophed 0.05 mcg/kg/min; titrate down to off as tolerated * Monitor on telemetry. RESPIRATORY - * Respiratory distress: * Patient initially presented with concerns for respiratory distress. VBG showed slight acidosis without hypoxia. * BiPAP removed and patient normoxic on 2 L O2-nasal cannula. Requires 2 L O2 nasal cannula at night at baseline. * May be secondary to the patient's current influenza infection. * Monitor for decline in respiratory symptoms * Will add chest CT without contrast as we are imaging the patient's abdomen/pelvis to evaluate for any infiltrative processes that may be poorly differentiated on plain chest x-ray. * Asthma: * Previously documented. * Unable to appreciate prior pulmonary outpatient workups or PFTs. * Not bronchospastic on exam today. * Likely not in an exacerbation at this moment. GI/NUTRITION - * Diarrhea/"mike" stools: * Patient reports ongoing symptoms of diarrhea for the last several days. * This is likely contributing largely to the patient's hypovolemia, hypotension, and possibly source of patient's urinary tract infection as well. * Stool cultures/C. diff results: stool occult blood, neg; stool EPEC, pos --> azithromycin, 500 mg, TID * C diff, pending? * Nursing staff noted dark brown-colored stools upon arrival in the ICU. * Placed on BID Protonix for now as well. * No overt GI bleeding appreciated at this time. * Prophylaxis: Protonix BID RENAL/LYTES - * XIN on CKD-stage 3: * Multifactorial in the setting of sepsis and profound hypovolemia. * Cr, 1.73 <-- 1.81 * IFV fluids given, electrolyte replacement as needed, monitor urine output. * IVF: Plasmalyte @ 100 mL/hr - * UTI: * In setting of indwelling Waddell catheter. * Urine Cx: pos for gram pos cocci (high probability it's skin contaminant) * Previous blood and urine cultures positive for pansensitive E. coli. * CT-AP did not indicate kidney stone * Waddell in place - Strict I&Os. ENDO - * BSGs per unit protocol. ISS --> gtt per unit policy. * Hypothyroidism: * Continue home Levothyroxine dosing. HEME - * Anemia, Hgb, 6.6 (6.6 <-- 7.8 <-- 8.7) --> transfuse 1 U PRB cells * Will trend Hgb in the setting of bloody stools and potential for dilution in the setting of aggressive resuscitation. ID - * Severe sepsis with septic shock in the setting of urinary source: * Previously with pansensitive E. coli; on Zosyn * Blood Cx pending, antibiotic coverage can be modified once they result * MRSA nasal swab pending. LINES/IV ACCESS - * PIVs x2 * Waddell * PICC DVT PROPHYLAXIS - * Hold on anticoagulation while bloody stools/diarrhea is evaluated * [facility]mission and Anticipated Discharge Date Admission Date: August 20, 2023 Supervising Physician Co-Signing Physician Notes Dr. Sue was resident physician during care of patient. I separately evaluated patient for spring portions of the history and the exam. I was present during the critical portion of medical decision making, and I discussed the case with the resident. I generally agree with the findings and plan. Weaning off vasoactive medications at this time. Will consent for 1 unit packed red blood cells. Trend her H&H every 8 hour. Already on PPI twice daily, I consider this to be effective therapy, maroon stools, certainly lower GI source in the differential. Prolonged QTc however patient has a left bundle branch block. Patient is already flu a positive. CT scan findings were in indicative of possible evolving gastrointestinal infection, BioFire positive for enterotoxic E. coli, I feel it is appropriate to treat this possible E. coli infection we will use a Zithromax 500 mg 3 times daily to hopefully minimize effect on QTc which again is in the setting of a left bundle branch block while optimizing her magnesium levels. Current magnesium 1.6 receiving 3 g supplementation. Will work with IV team for PICC line given poor vascular access currently has IV in foot. Give SCDs for DVT prophylaxis chemoprophylaxis relatively contraindicated in the setting of ongoing blood loss in the setting of enterotoxic E. coli. 1500 patient initially improved and repeat H&H was greater than 7, therefore blood product was held given clinical improvement. Patient has had another maroon stool and is again hypotensive and tachycardic, we will therefore now transfuse the first unit of packed red blood cells. I have personally spent 70 minutes of critical care time in the direct management of this patient. This is a life/limb threatening event. This includes time spent evaluating patient, direct bedside care, chart review, placing orders, interpretation of diagnostic studies, discussion with consultants, patient, and/or family members regarding treatment decisions, as well as other required patient management activities. This time is exclusive of all separately billable procedures, and teaching time and separate from and in addition to any other critical care service time. 1800 update: Patient has had paroxysmal atrial fibrillation with rapid ventricular response. We are adjusting vasoactive medications to vasopressin and attempting to decrease the Levophed. Consideration is given to converting to phenylephrine. Patient's prolonged QTc is likely artifactual and related to her left bundle branch block. Utilizing formula from the Journal of cardiovascular electrophysiology the patient's QTc corrects to approximately 442. Patient has been given a dose of Zithromax for enterotoxic E. coli, I believe the atrial fibrillation is largely produced from the patient's critical illness. We are optimizing her electrolytes and will start amiodarone versus beta-blockers. Subjective Patient is a 83 yo F w/ a PMHx of anemia, Hx of UT, Hx of PE, chronic anticoagulation (Eliquis, 5 mg, PO, BID), pulmonary edema, osteoporosis, osteoarthritis, Hx of DVT, HTN, hypothyroidism, WAYLON/sleep apnea, asthma. Pt also has extensive Sg Hx: cardiac catheterization, l. knee surgery, , JOSSELYN/BSO, appendectomy, cholecystectomy, cataract surgery, tonsillectomy, EGD, colonoscopy. Presented to hospital with dyspnea, following a positive influenza A-test (decreased appetite, poor oral fluid intake since previous [facility] d/c) while at [facility] after recent hospital stay here at [facility] from 07/26/23 - 08/05/23 due to septic shock, pyelonephritis. This morning patient feels better than upon admission. She feels less respiratory distress, has not had any diarrhea since yesterday afternoon, and is alert, oriented, and cooperative with commands and exam. Review of Systems Constitutional: + weakness; no fever, no chills, no body aches and no fatigue Respiratory: + dyspnea and + wheezing; no cough and n o chest congestion Cardiovascular: no chest pain and no palpitations Gastrointestinal: no abdominal pain, no nausea, no vomiting, no constipation and no diarrhea/loose stools (npo since yesterday afternoon) Genitourinary: no dysuria, no hematuria and no flank pain Psychiatric: no irritability and no confusion Physical Exam Constitutional: + well hydrated, + obese and cooperative Respiratory: Auscultation: + wheezes coarse breath sounds w/ insp Cardiovascular: Heart Sounds: + murmur Gastrointestinal (Abdomen): normal bowel sounds, soft, nontender, no hepatosplenomegaly patient was not experiencing any abdominal pain at rest nor on palpation Psychiatric: A+Ox3, euthymic affect Eye Contact: good eye contact Speech: normal rate/rhythm/volume of speech Affect: euthymic affect Genitourinary: normal external appearance and bladder normal to inspection; no CVA tenderness Results & Data Results & Data Vital Signs (Past 12 Hours) Vital Signs Temp Pulse Pulse Resp BP Pulse Ox O2 Del Method 08/21/23 06:00 36.8 C 83 25 H 100/58 L 100 Nasal Cannula 08/21/23 05:00 89 21 97/36 L 100 Nasal Cannula 08/21/23 04:00 96 H 22 101/61 100 BiPAP 08/21/23 03:00 89 25 H 92 08/21/23 03:00 91 H 25 H 102/46 L 94 Nasal Cannula 08/21/23 02:00 36.9 C 82 25 H 103/43 L 97 Nasal Cannula 08/21/23 01:00 83 26 H 102/56 L 94 Nasal Cannula 08/21/23 00:00 69 08/21/23 00:00 83 26 H 107/46 L 95 Nasal Cannula 08/20/23 23:00 80 23 105/43 L 93 Nasal Cannula 08/20/23 22:00 76 26 H 111/47 L 95 Nasal Cannula 08/20/23 21:00 75 22 112/76 97 Nasal Cannula 08/20/23 20:30 112/55 L O2 Flow Rate 08/21/23 06:00 4 08/21/23 05:00 4 08/21/23 04:00 08/21/23 03:00 3 08/21/23 03:00 08/21/23 02:00 4 08/21/23 01:00 4 08/21/23 00:00 08/21/23 00:00 4 08/20/23 23:00 4 08/20/23 22:00 08/20/23 21:00 5 08/20/23 20:30
--- NOTE | 2023-08-21 10:06 | Billing Data ---
Date of Service August 21, 2023 Coding Level of Care Code 46933 CRITICAL CARE
[2023-08-21] MEDS ORDERED: SODIUM PHOSPHATE 15 MMOL in SODIUM CHLORIDE 0.9% 250 ML IV ONE (10:30)
[2023-08-21] MEDS ORDERED: SODIUM CHLORIDE 0.9% 250 ML IV PRN ×2 (10:41→15:10)
[2023-08-21 11:01] LABS: Hematocrit (blood only) 21.8 % (37.0-47.0); Hemoglobin 7.2 g/dl (12.0-16.0)
[2023-08-21] MEDS: AZITHROMYCIN 250 MG TAB PO SCH (11:03)
--- NOTE | 2023-08-21 12:30 | XRay Report ---
XR chest 1V portable HISTORY: 83 years-old Female picc line placement status post placement of a left-sided PICC COMPARISON: Chest CT 08/20/2023 TECHNIQUE: AP view of the chest FINDINGS: Cardiac silhouette is enlarged. Chronic right hemidiaphragmatic elevation. Pulmonary vascular congest ion. Blunting of the costophrenic angles with persistent bibasilar consolidation. Degenerative change s of the shoulders and spine. Status post placement of a left-sided PICC with distal tip in the expec gonzales location of the brachiocephalic SVC confluence. IMPRESSION: 1. Status post placement of a left-sided PICC, distal tip in the expected location of the brachioceph alic SVC confluence. 2. No pneumothorax. 3. Cardiomegaly with pulmonary vascular congestion. 4. Persistent bibasilar consolidation with right hemidiaphragmatic elevation. ACT 112: Negative or not required by law. The above report was generated using voice recognition software. It may contain grammatical, syntax o r spelling errors. Electronically signed by: Demetrio Terrell M.D. 08/21/2023 12:29 PM
--- NOTE | 2023-08-21 13:50 | XRay Report ---
XR chest 1V portable CLINICAL HISTORY: picc line placement adjusted COMPARISON STUDY: Chest CT August 20, 2023. Chest radiograph performed earlier today. FINDINGS: Severe bilateral glenohumeral joint osteoarthritis is incidentally noted. There is no pneum othorax. Chronic elevation of the right hemidiaphragm. Interstitial thickening and bilateral opacitie s persist. Tip of the left PICC projects over the distal SVC. IMPRESSION: 1. Tip of left PICC projects over the distal SVC. 2. Bilateral airspace opacities and interstitial thickening. The findings favor multifocal pneumonia with possible superimposed pulmonary edema. ACT 112: Negative or not required by law. Electronically signed by: Shon Rushing M.D. 08/21/2023 1:49 PM
--- NOTE | 2023-08-21 16:21 | Hospitalist Progress Note ---
Date of Service August 21, 2023 Assessment & Plan (1) Septic shock: (2) E coli bacteremia: (3) Complicated UTI (urinary tract infection): (4) Acute kidney injury superimposed on CKD: (5) Compensated respiratory acidosis: (6) Influenza A: (7) PAF (paroxysmal atrial fibrillation): (8) HTN, goal below 130/80: (9) Pulmonary embolism: (10) CAD (coronary artery disease): Plan 83 year old female presents to the [facility] via EMS from [facility] after having a complex inpatient hospitalization last month from 07/26/23-08/05/23 for septic shock and pyelonephritis with gram negative rods and E. Coli requiring ICU stabilization and inotropic support with Levo. Tested positive for influenza A while at [facility] as well. She started to become short of breath while at [facility] and they had administered 80 mg of IV Lasix with concerns of a CHF exacerbation. She was placed on BiPAP and route. Numerous Comorbidities including: COPD, HFrEF, HTN, HLD, A-fib, history of PE, history of CVA, hypothyroidism, and GERD. Leukocytosis 15.66, creatinine 1.81, procalcitonin 15.58, magnesium 1.7, UTI with leukocyte esterase 3+, WBC greater than 30, Patient is surprisingly AAOx3 and able to have full meaningful conversation and I do not suspect any encephalopathy. She is able to deny headache, dizziness, lightheadedness, chest pain, palpitations, bowel or bladder changes or recent fa lls. Patient is typically wheelchair-bound but has been working with physical therapy for strengthening. She was lying in her hospital bed with her BiPAP mask on FiO2 50%. We did trial pausing the Levophed however she became hypotensive and her map did not support greater than 65. Patient did tolerate removal of BiPAP mask and maintain saturations greater than 93%. Able to move all extremities and is dry on exam. Per family, patient has not been moving in the right direction since she has been at [facility]; she has decreased appetite and has poor oral fluid intake. Suspect this individual has been over diuresed and with being flu + became hypotensive and SOB. Continued UTI on labs and with visual presentation; continue IV abx taking into consideration renal function. Lengthy conversation with pt and family. Confirmed DNR/DNI. No defib/shock. OK for Bipap and vasopressors. Discussed with ICU [employer] Dr. Byrd. Septic Shock: possible UTI, Bacteremia Acute Leukocytosis 15.66, procalcitonin 15.58 Was started on cefepime in the ED; review of last hospitalization goal was to avoid Vanco due to reduced kidney function. Patient was MRSA positive last admission so we will start Zosyn and await blood culture results Lactate 1.4 MRSA screen has been negative Urine culture is growing gram-positive cocci Blood cultures are negative so far Hypotensive in route and in ED; just weaned off of Levo. Monitor BP and keep maps greater than 65 Started on intravenous Levophed Continued with intravenous Zosyn and added IV azithromycin for respiratory coverage Clinically little better Influenza A: Acute Tested [facility] outpatient records; unsure date PCR positive here in ED Supportive treatment Chest x-ray shows bibasilar infiltration/atelectasis Azithromycin was added on top of intravenous Zosyn XIN on CKD: Acute Serum creatinine 1.81; received Lasix 80 mg this a.m. for SOB Baseline creatinine 0.7-0.9 Avoid nephrotoxic agents Received intravenous fluid Creatinine slightly better at 1.73 from 1.81 on admission HFrEF: SOB: Acute Compensated respiratory acidosis; pH 7.34, CO2 44, HCO3 24 Received Lasix 80 mg via EMS; On Bipap FiO2 50% Trial removal tolerated; on nasal cannula Suspect SOB related to being Flu + Last ECHO 07/26/2023 with reduced EF 35 to 40% and moderate global kinesis Has been saturating normally on room air Anemia No overt bleeding Could be secondary to sepsis Hemoglobin dropped to 6.6 in part complicated by IV fluid and dilution Will be receiving 1 to 2 units of blood transfusion Will monitor CBC Atrial Fibrillation: Chronic Takes Eliquis and Metoprolol; continue Eliquis on hold due to low hemoglobin and requiring blood transfusion HLD: Chronic Takes atorvastatin; continue Hypothyroidism: Chronic Takes Levothyroxine; continue GERD: Chronic Takes Pantoprazole;continue Disposition: PCP: Dr. Salas Code Status: DNR/DNI VTE Prophylaxis: On Eliquis Admission and Anticipated Discharge Date Admission Date: August 20, 2023 Subjective 08/21/2023 The patient was seen and examined in ICU She has been feeling a little better but he still has shortness of breath at rest Noted to be tachycardic as well, denies any chest pain and her palpitation Review of Systems Review of Systems: All systems reviewed and are unremarkable except as noted below Physical Exam Physical Exam: Lying in bed with minimal respiratory distress Constitutional: + ill appearing and average body habitus Eyes: PERRL, conjunctivae normal, anicteric sclerae ENMT: external ear and nose normal, oropharynx normal Neck: trachea midline, no thyromegaly Respiratory: no respiratory distress Auscultation: + diminished lung sounds and + crackles (Minimal bibasilar crackles) Cardiovascular: Rate/Rhythm: regular rate, regular rhythm and + tachycardic Heart Sounds: normal S1 and normal S2; no murmur Extremities: no edema Gastrointestinal (Abdomen): Inspection/Auscultation: normal bowel sounds; abdomen not distended Percussion/Palpation: abdomen soft; abdomen nontender Musculoskeletal: No acute arthritis involving any joint Neurologic: normal touch/pain/proprioception and moves all extremities; no focal motor deficits Generally weak and lethargic but alert, awake and oriented x 3 Lymphatic: no cervical or axillary lymphadenopathy Results & Data Results & Data Vital Signs (Past 12 Hours) Vital Signs Temp Pulse Pulse Resp BP BP BP 08/21/23 15:40 36.7 C 136 H 23 99/69 L 08/21/23 15:23 36.5 C 127 H 25 H 113/55 L 08/21/23 15:00 133 H 23 90/67 L 08/21/23 14:30 119 H 23 115/77 08/21/23 14:20 126 H 23 74/50 L 08/21/23 14:00 129 H 24 71/53 L 08/21/23 13:00 119 H 25 H 107/55 L 08/21/23 12:00 36.8 C 76 21 98/56 L 08/21/23 11:00 81 22 102/53 L 08/21/23 10:00 81 22 107/50 L 08/21/23 09:00 74 24 122/54 L 08/21/23 09:00 74 24 122/54 L 08/21/23 08:00 80 26 H 115/47 L 08/21/23 08:00 84 08/21/23 08:00 64 08/21/23 08:00 80 26 H 115/47 L 08/21/23 07:00 36.7 C 81 22 108/79 08/21/23 07:00 36.7 C 81 22 108/79 08/21/23 06:00 36.8 C 83 25 H 100/58 L 08/21/23 05:00 89 21 97/36 L Pulse Ox O2 Del Method O2 Flow Rate 08/21/23 15:40 98 3 08/21/23 15:23 97 3 08/21/23 15:00 98 Nasal Cannula 5 08/21/23 14:30 98 Nasal Cannula 5 08/21/23 14:20 100 Nasal Cannula 5 08/21/23 14:00 93 Nasal Cannula 5 08/21/23 13:00 96 Nasal Cannula 5 08/21/23 12:00 95 Nasal Cannula 5 08/21/23 11:00 96 Nasal Cannula 5 08/21/23 10:00 96 Nasal Cannula 5 08/21/23 09:00 96 Nasal Cannula 5 08/21/23 09:00 96 Nasal Cannula 5 08/21/23 08:00 89 L Nasal Cannula 5 08/21/23 08:00 08/21/23 08:00 08/21/23 08:00 89 L Nasal Cannula 5 08/21/23 07:00 90 Nasal Cannula 5 08/21/23 07:00 90 Nasal Cannula 5 08/21/23 06:00 100 Nasal Cannula 4 08/21/23 05:00 100 Nasal Cannula 4 Laboratory Results Short CBC 08/20/23 08/20/23 08/21/23 Range/Units 16:35 22:38 04:15 WBC 18.34 H (4.8-10.8) K/ul Hgb 8.0 L 7.8 L 6.6 L* (12.0-16.0) g/dl Hct 24.9 L 24.6 L 20.6 L* (37.0-47.0) % Plt Count 196 (130-400) K/uL 08/21/23 Range/Units 10:47 WBC (4.8-10.8) K/ul Hgb 7.2 L (12.0-16.0) g/dl Hct 21.8 L (37.0-47.0) % Plt Count (130-400) K/uL BMP 08/21/23 04:15 Sodium 134 L Potassium 4.3 Chloride 104 Carbon Dioxide 19 L BUN 29 H Creatinine 1.73 H Glucose 66 L Calcium 7.1 L Liver Function 08/21/23 Range/Units 04:15 Total Bilirubin 1.1 H (0.2-1.0) mg/dl AST 12 L (13-39) U/L ALT 4 L (7-52) U/L Alkaline Phosphatase 47 (34-104) U/L Albumin 2.4 L (3.4-5.0) gm/dl Medications Administered Current Inpatient Medications Acetaminophen (Acetaminophen 325 Mg Tab) 650 mg PO Q4H PRN PRN Reason: Pain or Fever Stop: 09/19/23 13:22 Last Admin: 08/21/23 04:10 Dose: 650 mg Al Hydrox/Mg Hydrox/Simethicone (Aluminum/Magnesium Susp 30 Ml Udc) 15 ml PO Q4H PRN PRN Reason: Dyspepsia Stop: 09/19/23 13:22 Azithromycin (Azithromycin 250 Mg Tab) 500 mg PO DAILY TRACI Stop: 08/23/23 09:01 Last Admin: 08/21/23 11:03 Dose: 500 mg Norepinephrine Bitartrate (Levophed/D5w) 4 mg in 250 mls @ 17.006 mls/hr IV .[id number] TRACI; Protocol Stop: 09/19/23 10:44 Last Titration: 08/21/23 14:19 Dose: 0.05 mcg/kg/min, 17 mls/hr Piperacillin Sod/Tazobactam (Sod 4.5 gm/ Dextrose) 100 mls @ 25 mls/hr IV Q8H TRACI; Protocol Stop: 08/30/23 19:59 Last Admin: 08/21/23 13:06 Dose: 25 mls/hr Pantoprazole Sodium 40 mg/ (Syringe) 10 mls @ 5 mls/min IV BID TRACI Stop: 09/19/23 20:59 Last Admin: 08/21/23 08:22 Dose: 5 mls/min Sodium Chloride (Nss) 250 mls @ 15 mls/hr IV .[id number] PRN PRN Reason: For Transfusion Duration Stop: 08/21/23 20:42 Sodium Chloride (Nss) 250 mls @ 15 mls/hr IV .[id number] PRN PRN Reason: For Transfusion Duration Stop: 08/22/23 01:10 Magnesium Hydroxide (Magnesium Hydroxide Susp 30 Ml Udc) 30 ml PO Q12H PRN PRN Reason: Constipation Stop: 09/19/23 13:22 Ondansetron HCl (Ondansetron Inj 2 Mg/Ml 2 Ml Vial) 4 mg IV Q6H PRN PRN Reason: Nausea Stop: 09/19/23 13:22 Polyethylene Glycol (Polyethylene (Miralax) 17 Gm Pack) 17 gm PO DAILY PRN PRN Reason: Constipation Stop: 09/19/23 13:22
[2023-08-21] MEDS: NOREPINEPHRINE/D5W 4 MG/250 ML PLCT IV SCH (16:24)
[2023-08-21] MEDS ORDERED: STAT IV Infusion **Titration per Protocol STA ×2 (17:37→18:07)
[2023-08-21] MEDS: VASOPRESSIN 20 UNITS in 0.9 % SODIUM CHLORIDE 100 ML IV SCH (17:54)
[2023-08-21] MEDS ORDERED: AMIODARONE 150MG / 100ML D5W IV ONE (18:02)
[2023-08-21] MEDS ORDERED: AMIODARONE 360MG / 200ML D5W IV ONE (18:03)
[2023-08-21] MEDS ORDERED: 0.2 MICRON FILTER SET 1 EACH IV STA (18:07)
[2023-08-21] MEDS ORDERED: AMIODARONE / D5W 150 MG/100 ML BAG IV STA (18:07)
[2023-08-21] MEDS ORDERED: AMIODARONE IV BOLUS & DRIP IV STA (18:07)
[2023-08-21] MEDS ORDERED: AMIODARONE / D5W 360 MG/200 ML BAG IV ONE (18:17)
[2023-08-21 20:55] LABS: Hematocrit (blood only) 27.5 % (37.0-47.0); Hemoglobin 9.2 g/dl (12.0-16.0); Reticulocyte % 2.4 % (0.5-2.0); Reticulocytes # 0.07 10^6/uL (0.02-0.10)
[2023-08-22] MEDS ORDERED: AMIODARONE / D5W 360 MG/200 ML BAG IV SCH (00:15)
[2023-08-22] MEDS: VASOPRESSIN 20 UNITS in 0.9 % SODIUM CHLORIDE 100 ML IV SCH (01:18)
[2023-08-22 02:39] LABS: Hematocrit (blood only) 26.5 % (37.0-47.0); Hemoglobin 8.7 g/dl (12.0-16.0); Mean Corpuscular Hgb Conc 32.8 g/dL (32.0-36.0); Mean Corpuscular Volume 103.5 fL (80.0-100.0); Mean Platelet Volume 10.5 fL (9.4-12.4); Platelet Count 171 K/uL (130-400); RDW Coefficient of Variation 19.1 % (11.5-14.5); RDW Standard Deviation 72.7 fL (36.4-46.3); Red Blood Count 2.56 M/uL (4.20-5.40); White Blood Count 16.33 K/ul (4.8-10.8)
[2023-08-22 02:50] LABS: BUN Creatinine Ratio 18.6 (10-20); Calcium 7.1 mg/dl (8.6-10.3); Est GFR (African American) 35.7 ml/min; Est GFR (Non-African American) 30.8 ml/min; Magnesium 2.3 mg/dl (1.7-2.4); Phosphorus 2.4 mg/dl (2.5-4.9); Potassium 3.9 mmol/L (3.5-5.1)
[2023-08-22 03:30] LABS: Basophils # (auto) 0.03 K/uL (0.00-0.20); Basophils % (auto) 0.2 %; Echinocytes 1+; Eosinophils # (auto) 0.11 K/uL (0.00-0.50); Eosinophils % (auto) 0.7 %; Immature Granulocytes % (auto) 1.8 %; Lymphocytes # (auto) 0.27 K/uL (1.20-3.40); Lymphocytes % (auto) 1.7 %; Monocytes # (auto) 0.38 K/uL (0.11-0.59); Monocytes % (auto) 2.3 %; Neutrophils # (auto) 15.24 K/uL (1.40-6.50); Neutrophils % (auto) 93.3 %; Polychromasia 1+
[2023-08-22] MEDS: PIPERACILLIN/TAZOBACTAM 4.5 GM in DEXTROSE 5% MINI-B 100 ML IV SCH (04:00)
[2023-08-22] MEDS ORDERED: POTASSIUM PHOS 3 MMOL/1 ML INFUSION IV STA (06:40)
[2023-08-22] MEDS ORDERED: POTASSIUM PHOSPHATE 9 MMOL in SODIUM CHLORIDE 0.9% 250 ML IV ONE (07:00)
--- NOTE | 2023-08-22 07:27 | Critical Care Progress Note ---
Date of Service August 22, 2023 Assessment & Plan (1) Influenza A: (2) Shortness of breath: (3) Acute UTI (urinary tract infection): (4) Diarrhea: (5) Septic shock: Plan Patient is a 83 yo F w/ a PMHx of anemia, Hx of SC, Hx of PE, chronic anticoagulation ( ), pulmonary edema, osteoporosis, osteoarthritis, Hx of DVT, HTN, hypothyroidism, WAYLON/sleep apnea, asthma. Pt has extensive Sg Hx too: cardiac catheterization, l. knee surgery, , JOSSELYN/BSO, appendectomy, ch olecystectomy, cataract surgery, tonsillectomy, EGD, colonoscopy. Presented to hospital with dyspnea, following a positive influenza A-test (decreased appetite, poor oral fluid intake since previous [facility] d/c) while at [facility] after recent hospital stay here at [facility] from 07/26/23 - 08/05/23 due to septic shock, pyelonephritis. Assessment (1) Influenza A: (2) Shortness of breath: (3) Acute UTI (urinary tract infection): (4) Septic shock: (5) Diarrhea: Plan Reason Critically Ill: 83 yo F presenting with severe sepsis and septic shock in setting of UTI with associated respiratory failure in the setting of influenza A. Concerns for continued bloody diarrhea as well. NEURO - * CAM ICU: NEGATIVE * Patient continues to appear slightly encephalopathic likely related to her acuity of illness. AAO x 2 (+person, +month/-year, ++hospital/-She is otherwise able to answer historical information relatively appropriately, however she did have some issues with where she is currently residing and recent historical information. * No focal neurological findings on exam. CARDIAC/VASCULAR - * Hypotension: * Multifactorial in the 83-year-old female with septic shock and hypovolemia. * Patient likely initially with profound septic shock and distributive issues and had received 80 of IV Lasix with concerns for respiratory distress which further resulted in fluid wasting. * She received 2 L crystalloid in the emergency department. This was held further secondary to her history of heart failure with reduced ejection fraction of 35%. * Clinically dry on exam, persistent diarrhea upon admission, urine output dropped as well. Plasma-Lyte given * BP's continue to be low, was on Levophed 0.05 mcg/kg/min and vasopressin; trialing for period off both vasopressors to see if she can maintain own BP * Monitor on telemetry. RESPIRATORY - * Respiratory distress: * Patient initially presented with concerns for respiratory distress. VBG showed slight acidosis without hypoxia. * BiPAP removed and patient normoxic on 2 L O2-nasal cannula. Requires 2 L O2 nasal cannula at night at baseline. * May be secondary to the patient's current influenza infection. * Monitor for decline in respiratory symptoms * Will add chest CT without contrast as we are imaging the patient's abdomen/pelvis to evaluate for any infiltrative processes that may be poorly differentiated on plain chest x-ray. * Asthma: * Previously documented. * Unable to appreciate prior pulmonary outpatient workups or PFTs. * Not bronchospastic on exam today. * Likely not in an exacerbation at this moment. GI/NUTRITION - * Diarrhea/"mike" stools: * Patient reports ongoing symptoms of diarrhea for the last several days. * This is likely contributing largely to the patient's hypovolemia, hypotension, and possibly source of patient's urinary tract infection as well. * Stool cultures/C. diff results: stool occult blood, neg; stool EPEC, pos --> azithromycin, 500 mg, TID * Nursing staff noted dark brown-colored stools upon arrival in the ICU. * Placed on BID Protonix for now as well. * No overt GI bleeding appreciated at this time. * Prophylaxis: Protonix BID RENAL/LYTES - * XIN on CKD-stage 3: * Multifactorial in the setting of sepsis and profound hypovolemia. * continues to improve, Cr, 1.56 <-- 1.73 <-- 1.81 * IV fluids given, electrolyte replacement as needed, monitor urine output. * IVF: Plasmalyte @ 100 mL/hr - * UTI: * In setting of indwelling Waddell catheter * Previous blood and urine cultures positive for pansensitive E. coli. * Urine Cx: Pos for Enterococcus faecium, VRE --> daptomycin, 650 mg, IV, Q48 hrs * CT-AP did not indicate kidney stone * Waddell in place - Strict I&Os. ENDO - * BSGs per unit protocol. ISS --> gtt per unit policy. * Hypothyroidism: * Continue home Levothyroxine dosing. HEME - * Anemia (08/21/23), Hgb, 6.6 (6.6 <-- 7.8 <-- 8.7) --> transfused 1 U PRB cells --> Hgb, 8.7 (08/22/23) AM after bl. transfusion) * Will trend Hgb in the setting of bloody stools and potential for dilution in the setting of aggressive resuscitation. ID - * Severe sepsis with septic shock in the setting of urinary source: * Previously with pansensitive E. coli; was on Zosyn but discontinued, transitioned to daptomycin * Blood Cx pending, no growth after 24 hrs, will reconsider after 48 hrs growth * MRSA nasal swab pending. LINES/IV ACCESS - * PIVs x2 * Waddell * PICC DVT PROPHYLAXIS - * Hold on anticoagulation while bloody stools/diarrhea is evaluated * [facility] Admission and Anticipated Discharge Date Admission Date: August 20, 2023 Supervising Physician Co-Signing Physician Notes Dr. Sue was resident physician during care of patient. I separately evaluated patient for spring portions of the history and the exam. I was present during the critical portion of medical decision making, and I discussed the case with the resident. I generally agree with the findings and plan. Patient converted to normal sinus rhythm will discontinue amiodarone, patient declining to take a Zithromax will educate need given enterotoxic E. coli. Now off vasoactive's so blood pressure has improved. Discontinue Zosyn transition to daptomycin for VRE in urine. Multilobar pneumonia is likely related to underlying viral process, not meeting indications to treat with Tamiflu will hold off at this time. Supplement hypocalcemia with 1 g calcium gluconate. Patient is critically ill due to multilobar pneumonia of influenza A, VRE UTI and corresponding sepsis. I have personally spent 45 minutes of critical care time in the direct management of this patient. This is a life/limb threatening event. This includes time spent evaluating patient, direct bedside care, chart review, placing orders, interpretation of diagnostic studies, discussion with consultants, patient, and/or family members regarding treatment decisions, as well as other required patient management activities. This time is exclusive of all separately billable procedures, and teaching time and separate from and in addition to any other critical care service time. Subjective The patient was seen and examined today in ICU. She appeared less alert, more fatigued, with increased work of breathing this morning compared to yesterday--still has dyspnea at rest. Patient still denies any chest pain or palpitations, despite episode of atrial fibrillation yesterday. Her systolic BP's have been more normal since adding on vasopressin yesterday, but diastolic BP's continue to be low, with resulting wide pulse pressure. Review of Systems Constitutional: + fatigue and + weakness; no fever and n o chills Respiratory: + chest congestion, + dyspnea, + sputum production and + wheezing Cardiovascular: no chest pain, no palpitations and no lightheadedness Gastrointestinal: + diarrhea/loose stools (last night had maroon stools) and + blood in stools Neurologic: no localized weakness and no loss of sensation Physical Exam Constitutional: + obese and cooperative; + not appropria tely hydrated Respiratory: Auscultation: + crackles and + wheezes Cardiovascular: Heart Sounds: normal S1, normal S2 and + murmur Gastrointestinal (Abdomen): normal bowel sounds, soft, nontender, no hepatosplenomegaly Neurologic: Cranial Nerves: PERRL, normal accommodation, EOM intact bilaterally, normal facial strength, tongue midline and able to elevate shoulders bilaterally Psychiatric: Orientation: oriented to person and oriented to place (hospital, thought it was [facility]); + not oriented to time (August,) Eye Contact: + fair eye contact Speech: normal rate/rhythm/volume of speech Affect: euthymic affect Genitourinary: normal external appearance and bladder normal to inspection; no CVA tenderness Results & Data Results & Data Vital Signs (Past 12 Hours) Vital Signs Temp Pulse Pulse Resp BP BP Pulse Ox 08/22/23 06:00 37.2 C 80 23 114/61 97 08/22/23 05:00 88 24 106/69 08/22/23 05:00 37.2 C 79 23 106/69 98 08/22/23 04:31 116/62 08/22/23 04:31 84 25 H 99 08/22/23 04:30 84 24 116/62 98 08/22/23 04:00 79 26 H 126/34 L 98 08/22/23 03:30 84 24 134/53 L 96 08/22/23 02:30 85 25 H 123/76 95 08/22/23 02:00 86 26 H 113/79 97 08/22/23 01:30 84 26 H 138/57 L 98 08/22/23 01:00 84 23 109/72 08/22/23 00:30 87 25 H 120/66 99 08/22/23 00:00 92 H 23 98 08/22/23 00:00 84 08/22/23 00:00 37.3 C 87 26 H 120/66 98 08/21/23 23:30 112 H 22 95/69 L 96 08/21/23 23:15 112 H 26 H 82/66 L 93 08/21/23 23:00 106 H 25 H 92/60 L 87 L 08/21/23 22:54 08/21/23 22:45 123 H 25 H 111/77 96 08/21/23 22:30 121 H 25 H 104/72 96 08/21/23 22:16 115 H 28 H 92/72 L 97 08/21/23 22:02 113 H 26 H 97 08/21/23 22:00 119 H 28 H 125/78 97 08/21/23 21:46 111 H 26 H 98/63 L 96 08/21/23 21:30 101 H 26 H 100/71 97 08/21/23 21:16 118 H 26 H 96/78 L 94 08/21/23 21:00 120 H 26 H 100/82 85 L 08/21/23 20:30 121 H 25 H 85/63 L 08/21/23 20:15 129 H 21 93/76 L 99 08/21/23 20:00 131 H 26 H 105/73 68 L 08/21/23 20:00 37.3 C 08/21/23 19:45 119 H 27 H 101/78 96 08/21/23 19:30 115 H 32 H 108/65 80 L O2 Del Method O2 Flow Rate 08/22/23 06:00 Nasal Cannula 4 08/22/23 05:00 08/22/23 05:00 Nasal Cannula 4 08/22/23 04:31 08/22/23 04:31 08/22/23 04:30 08/22/23 04:00 Nasal Cannula 4 08/22/23 03:30 08/22/23 02:30 08/22/23 02:00 08/22/23 01:30 08/22/23 01:00 08/22/23 00:30 08/22/23 00:00 08/22/23 00:00 08/22/23 00:00 Nasal Cannula 4 08/21/23 23:30 08/21/23 23:15 08/21/23 23:00 08/21/23 22:54 Nasal Cannula 08/21/23 22:45 08/21/23 22:30 08/21/23 22:16 08/21/23 22:02 08/21/23 22:00 08/21/23 21:46 08/21/23 21:30 08/21/23 21:16 08/21/23 21:00 08/21/23 20:30 08/21/23 20:15 08/21/23 20:00 08/21/23 20:00 Nasal Cannula 4 08/21/23 19:45 08/21/23 19:30 Resident Activity Tracking Resident Involvement: Resident Care Provided Care Provided: Adult Hospital Medicine
[2023-08-22] MEDS: PANTOprazole 40 MG in SYRINGE 0 ML IV SCH ×2 (07:41→19:54)
--- NOTE | 2023-08-22 09:28 | Billing Data ---
Date of Service August 22, 2023 Coding Level of Care Code 34630 CRITICAL CARE
[2023-08-22] MEDS ORDERED: DAPTOmycin 650 MG in SYRINGE 0 ML IV SCH (10:00)
[2023-08-22] MEDS: AZITHROMYCIN 250 MG TAB PO SCH (10:04)
[2023-08-22] MEDS ORDERED: CALCIUM GLUCONATE 1,000 MG/60 ML BAG IV ONE (10:15)
[2023-08-22 11:00] LABS: Hematocrit (blood only) 28.5 % (37.0-47.0); Hemoglobin 9.4 g/dl (12.0-16.0)
--- NOTE | 2023-08-22 13:52 | Hospitalist Progress Note ---
Date of Service August 22, 2023 Assessment & Plan (1) Septic shock: (2) E coli bacteremia: (3) Complicated UTI (urinary tract infection): (4) Acute kidney injury superimposed on CKD: (5) Compensated respiratory acidosis: (6) Influenza A: (7) PAF (paroxysmal atrial fibrillation): (8) HTN, goal below 130/80: (9) Pulmonary embolism: (10) CAD (coronary artery disease): Plan 83 year old female presents to the [facility] via EMS from [facility] after having a complex inpatient hospitalization last month from 07/26/23-08/05/23 for septic shock and pyelonephritis with gram negative rods and E. Coli requiring ICU stabilization and inotropic support with Levo. Tested positive for influenza A while at [facility] as well. She started to become short of breath while at [facility] and they had administered 80 mg of IV Lasix with concerns of a CHF exacerbation. She was placed on BiPAP and route. Numerous Comorbidities including: COPD, HFrEF, HTN, HLD, A-fib, history of PE, history of CVA, hypothyroidism, and GERD. Leukocytosis 15.66, creatinine 1.81, procalcitonin 15.58, magnesium 1.7, UTI with leukocyte esterase 3+, WBC greater than 30, Patient is surprisingly AAOx3 and able to have full meaningful conversation and I do not suspect any encephalopathy. She is able to deny headache, dizziness, lightheadedness, chest pain, palpitations, bowel or bladder changes or recent fa lls. Patient is typically wheelchair-bound but has been working with physical therapy for strengthening. She was lying in her hospital bed with her BiPAP mask on FiO2 50%. We did trial pausing the Levophed however she became hypotensive and her map did not support greater than 65. Patient did tolerate removal of BiPAP mask and maintain saturations greater than 93%. Able to move all extremities and is dry on exam. Per family, patient has not been moving in the right direction since she has been at [facility]; she has decreased appetite and has poor oral fluid intake. Suspect this individual has been over diuresed and with being flu + became hypotensive and SOB. Continued UTI on labs and with visual presentation; continue IV abx taking into consideration renal function. Lengthy conversation with pt and family. Confirmed DNR/DNI. No defib/shock. OK for Bipap and vasopressors. Discussed with ICU [facility] [employer] Dr. Byrd. Septic Shock: VRE UTI Acute Leukocytosis 15.66, procalcitonin 15.58 Was started on cefepime in the ED; review of last hospitalization goal was to avoid Vanco due to reduced kidney function. Patient was MRSA positive last admission so we will start Zosyn and await blood culture results Lactate 1.4 MRSA screen has been negative Urine culture is growing VRE Blood cultures are negative so far Hypotensive in route and in ED; just weaned off of Levo. Monitor BP and keep maps greater than 65 Started on intravenous Levophed-Levophed has been discontinued Continued with intravenous Zosyn and added IV azithromycin for respiratory coverage Zosyn discontinued and daptomycin added to cover VRE in urine Clinically much better Influenza A: Acute Tested positive at [facility] per outpatient records; unsure date PCR positive here in ED Supportive treatmentand Tamiflu is not indicated Chest x-ray shows bibasilar infiltration/atelectasis Also on intravenous Zosyn and azithromycin Zosyn has been discontinued and azithromycin will be continued to finish the course to cover possible pneumonia XIN on CKD: Acute Serum creatinine 1.81; received Lasix 80 mg this a.m. for SOB Baseline creatinine 0.7-0.9 Avoid nephrotoxic agents Received intravenous fluid Creatinine slightly better at 1.73 from 1.81 on admission Kidney function has been improving with a creatinine improved to 1.56 as of 08/22/2023 HFrEF: SOB: Acute Compensated respiratory acidosis; pH 7.34, CO2 44, HCO3 24 Received Lasix 80 mg via EMS; On Bipap FiO2 50% Trial removal tolerated; on nasal cannula Suspect SOB related to being Flu + Last ECHO 07/26/2023 with reduced EF 35 to 40% and moderate global kinesis Has been saturating normally on room air Anemia No overt bleeding Could be secondary to sepsis Hemoglobin dropped to 6.6 in part complicated by IV fluid and dilution Will be receiving 1 to 2 units of blood transfusion Will monitor CBC Atrial Fibrillation: Chronic Takes Eliquis and Metoprolol; continue Eliquis on hold due to low hemoglobin and requiring blood transfusion Short episode of A-fib with RVR and started on intravenous amiodarone Reverted to sinus rhythm and amiodarone has been discontinued Was on beta-hayden before and will restart gradually HLD: Chronic Takes atorvastatin; continue Hypothyroidism: Chronic Takes Levothyroxine; continue GERD: Chronic Takes Pantoprazole;continue Disposition: PCP: Dr. Salas Code Status: DNR/DNI VTE Prophylaxis: On Eliquis Admission and Anticipated Discharge Date Admission Date: August 20, 2023 Subjective 08/21/2023 The patient was seen and examined in ICU She has been feeling a little better but he still has shortness of breath at rest Noted to be tachycardic as well, denies any chest pain and her palpitation 08/22/2023 The patient was seen and examined in the ICU She has been feeling much better now Denies any significant symptoms except weakness and tiredness Has been off of IV pressors Review of Systems Review of Systems: All systems reviewed and are unremarkable except as noted below Physical Exam Physical Exam: Lying in bed with minimal respiratory distress Constitutional: + ill appearing and average body habitus Eyes: PERRL, conjunctivae normal, anicteric sclerae ENMT: external ear and nose normal, oropharynx normal Neck: trachea midline, no thyromegaly Respiratory: no respiratory distress Auscultation: + diminished lung sounds and + crackles (Minimal bibasilar crackles) Cardiovascular: Rate/Rhythm: regular rate, regular rhythm and + tachycardic Heart Sounds: normal S1 and normal S2; no murmur Extremities: no edema Gastrointestinal (Abdomen): Inspection/Auscultation: normal bowel sounds; abdomen not distended Percussion/Palpation: abdomen soft; abdomen nontender Neurologic: normal touch/pain/proprioception and moves all extremities; no focal motor deficits Lymphatic: no cervical or axillary lymphadenopathy Results & Data Results & Data Vital Signs (Past 12 Hours) Vital Signs Temp Pulse Resp BP Pulse Ox O2 Del Method O2 Flow Rate 08/22/23 13:01 88 22 100 08/22/23 13:01 147/65 H 08/22/23 13:00 88 23 94 Nasal Cannula 4 08/22/23 12:30 123/71 08/22/23 12:30 88 22 97 08/22/23 12:00 115/71 08/22/23 12:00 89 21 97 08/22/23 11:30 128/63 08/22/23 11:30 85 23 98 Nasal Cannula 4 08/22/23 11:00 125/73 08/22/23 11:00 81 23 94 08/22/23 10:30 84 25 H 98 08/22/23 10:00 121/74 08/22/23 10:00 83 23 95 08/22/23 09:30 119/57 L 08/22/23 09:30 84 21 96 08/22/23 09:01 121/51 L 08/22/23 09:01 82 22 90 08/22/23 09:00 82 23 98 08/22/23 08:30 117/60 08/22/23 08:30 81 20 92 08/22/23 08:25 Nasal Cannula 4 08/22/23 08:00 Nasal Cannula 08/22/23 08:00 84 08/22/23 08:00 120/55 L 08/22/23 08:00 84 22 81 L 08/22/23 07:30 121/64 08/22/23 07:30 83 22 08/22/23 07:00 119/52 L 08/22/23 07:00 83 23 98 Nasal Cannula 4 08/22/23 06:00 37.2 C 80 23 114/61 97 Nasal Cannula 4 08/22/23 05:00 88 24 106/69 08/22/23 05:00 37.2 C 79 23 106/69 98 Nasal Cannula 4 08/22/23 04:31 116/62 08/22/23 04:31 84 25 H 99 08/22/23 04:30 84 24 116/62 98 08/22/23 04:00 79 26 H 126/34 L 98 Nasal Cannula 4 08/22/23 03:30 84 24 134/53 L 96 08/22/23 02:30 85 25 H 123/76 95 08/22/23 02:00 86 26 H 113/79 97 Laboratory Results Short CBC 08/21/23 08/22/23 08/22/23 Range/Units 20:28 02:20 10:29 WBC 16.33 H (4.8-10.8) K/ul Hgb 9.2 L 8.7 L 9.4 L (12.0-16.0) g/dl Hct 27.5 L 26.5 L 28.5 L (37.0-47.0) % Plt Count 171 (130-400) K/uL BMP 08/22/23 02:20 Sodium 132 L Potassium 3.9 Chloride 102 Carbon Dioxide 21 BUN 29 H Creatinine 1.56 H Glucose 121 H Calcium 7.1 L Medications Administered Current Inpatient Medications Acetaminophen (Acetaminophen 325 Mg Tab) 650 mg PO Q4H PRN PRN Reason: Pain or Fever Stop: 09/19/23 13:22 Last Admin: 08/21/23 04:10 Dose: 650 mg Al Hydrox/Mg Hydrox/Simethicone (Aluminum/Magnesium Susp 30 Ml Udc) 15 ml PO Q4H PRN PRN Reason: Dyspepsia Stop: 09/19/23 13:22 Azithromycin (Azithromycin 250 Mg Tab) 500 mg PO DAILY TRACI Stop: 08/23/23 09:01 Last Admin: 08/22/23 10:04 Dose: 500 mg Norepinephrine Bitartrate (Levophed/D5w) 4 mg in 250 mls @ 0 mls/hr IV .Q0M TRACI; Protocol Stop: 09/19/23 10:44 Last Titration: 08/22/23 04:00 Dose: 0 mcg/kg/min, 0 mls/hr Pantoprazole Sodium 40 mg/ (Syringe) 10 mls @ 5 mls/min IV BID TRACI Stop: 09/19/23 20:59 Last Admin: 08/22/23 07:41 Dose: 5 mls/min Vasopressin 20 units/ Sodium (Chloride) 101 mls @ 0 mls/hr IV .Q0M TRACI Stop: 09/20/23 17:44 Last Infusion: 08/22/23 05:17 Dose: 0 unit/min, 0 mls/hr Daptomycin 650 mg/ Syringe 13 mls @ 6.5 mls/min IV Q48H TRACI; Protocol Stop: 09/01/23 09:59 Last Admin: 08/22/23 11:04 Dose: 6.5 mls/min Magnesium Hydroxide (Magnesium Hydroxide Susp 30 Ml Udc) 30 ml PO Q12H PRN PRN Reason: Constipation Stop: 09/19/23 13:22 Ondansetron HCl (Ondansetron Inj 2 Mg/Ml 2 Ml Vial) 4 mg IV Q6H PRN PRN Reason: Nausea Stop: 09/19/23 13:22 Polyethylene Glycol (Polyethylene (Miralax) 17 Gm Pack) 17 gm PO DAILY PRN PRN Reason: Constipation Stop: 09/19/23 13:22
--- NOTE | 2023-08-22 13:54 | Electrocardiogram Report ---
Test Reason : Blood Pressure : / mmHG Vent. Rate : 134 BPM Atrial Rate : 129 BPM P-R Int : 000 ms QRS Dur : 156 ms QT Int : 346 ms P-R-T Axes : 000 -06 159 degrees QTc Int : 516 ms Atrial fibrillation with rapid ventricular response Left bundle branch block Abnormal ECG When compared with ECG of 20-AUG-2023 10:07, Atrial fibrillation has replaced Sinus rhythm Vent. rate has increased BY 59 BPM T wave inversion less evident in Anterolateral leads Confirmed by Vimal Knowles ([id number]) on 08/22/2023 1:54:26 PM Referred By: REFERRED SELF Confirmed By:Vimal Knowles
[2023-08-22] MEDS ORDERED: METOPROLOL SUCC 25MG EXT REL TAB PO ONE (14:27)
--- NOTE | 2023-08-22 14:58 | Electrocardiogram Report ---
Test Reason : Blood Pressure : / mmHG Vent. Rate : 088 BPM Atrial Rate : 088 BPM P-R Int : 196 ms QRS Dur : 178 ms QT Int : 458 ms P-R-T Axes : 073 -07 144 degrees QTc Int : 554 ms Sinus rhythm with Premature ventricular complexes Left bundle branch block Abnormal ECG When compared with ECG of 21-AUG-2023 17:41, (unconfirmed) Sinus rhythm has replaced Atrial fibrillation Vent. rate has decreased BY 46 BPM Confirmed by Vimal Knowles ([id number]) on 08/22/2023 2:57:27 PM Referred By: REFERRED SELF Confirmed By:Vimal Knowles
[2023-08-22 17:13] LABS: Hemoglobin 8.5 g/dl (12.0-16.0)
[2023-08-22] MEDS: METOPROLOL SUCC 25MG EXT REL TAB PO SCH (19:53)
[2023-08-23] MEDS ORDERED: GLUCOSE 10 TAB/TUBE PO PRN (00:24)
[2023-08-23] MEDS ORDERED: DEXTROSE 50% 50 ML SYRINGE IV PRN (00:24)
[2023-08-23] MEDS ORDERED: GLUCAGON FOR INJ 1 MG VIAL SQ PRN (00:24)
[2023-08-23] MEDS ORDERED: GLUCOSE 40% GEL 15 GM TUBE PO PRN (00:24)
[2023-08-23] MEDS: CARBOHYDRATES FOR HYPOGLYCEMIA PO PRN (00:25)
[2023-08-23] MEDS: ACETAMINOPHEN 325 MG TAB PO PRN (01:35)
[2023-08-23 04:40] LABS: Basophils # (auto) 0.02 K/uL (0.00-0.20); Basophils % (auto) 0.2 %; Eosinophils # (auto) 0.19 K/uL (0.00-0.50); Eosinophils % (auto) 1.7 %; Hematocrit (blood only) 25.7 % (37.0-47.0); Hemoglobin 8.4 g/dl (12.0-16.0); Immature Granulocytes # (auto) 0.09 K/uL (0.01-0.20); Immature Granulocytes % (auto) 0.8 %; Lymphocytes # (auto) 0.59 K/uL (1.20-3.40); Lymphocytes % (auto) 5.1 %; Mean Corpuscular Hemoglobin 33.9 pg (25.0-34.0); Mean Corpuscular Hgb Conc 32.7 g/dL (32.0-36.0); Mean Corpuscular Volume 103.6 fL (80.0-100.0); Mean Platelet Volume 10.8 fL (9.4-12.4); Monocytes # (auto) 0.45 K/uL (0.11-0.59); Monocytes % (auto) 3.9 %; Neutrophils # (auto) 10.15 K/uL (1.40-6.50); Neutrophils % (auto) 88.3 %; Platelet Count 166 K/uL (130-400); RDW Coefficient of Variation 18.5 % (11.5-14.5); RDW Standard Deviation 70.2 fL (36.4-46.3); Red Blood Count 2.48 M/uL (4.20-5.40); White Blood Count 11.49 K/ul (4.8-10.8)
[2023-08-23 04:54] LABS: BUN Creatinine Ratio 20.2 (10-20); Calcium 7.1 mg/dl (8.6-10.3); Creatinine Clr Calc Pharmacy 34.6 ml/min; Est GFR (Non-African American) 38.8 ml/min; Magnesium 2.1 mg/dl (1.7-2.4); Potassium 3.5 mmol/L (3.5-5.1)
--- NOTE | 2023-08-23 07:30 | Critical Care Progress Note ---
Date of Service August 23, 2023 Assessment & Plan (1) Influenza A: (2) Shortness of breath: (3) Acute UTI (urinary tract infection): (4) Diarrhea: (5) Septic shock: Plan Patient is a 83 yo F w/ a PMHx of anemia, paroxysmal AFib, Hx of DC, Hx of PE, chronic anticoagulation, pulmonary edema, osteoporosis, osteoarthritis, Hx of DVT, HTN, hypothyroidism, WAYLON/sleep apnea, asthma. Pt has extensive Sg Hx too: cardiac catheterization, l. knee surgery, , JOSSELYN/BSO, appendectomy, cholecystectomy, cataract surgery, tonsillectomy, EGD, colonoscopy. Presented to hospital with dyspnea, following a positive influenza A-test (decreased appetite, poor oral fluid intake since previous [facility] d/c) while at [facility] after recent hospital stay here at [facility] from 07/26/23 - 08/05/23 due to septic shock, pyelonephritis. Assessment (1) Influenza A: (2) Shortness of breath: (3) Acute UTI (urinary tract infection): (4) Septic shock: (5) Diarrhea/EPEC infection Plan Reason Critically Ill: 83 yo F presenting with severe sepsis and septic shock in setting of UTI with associated respiratory failure in the setting of influenza A. Concerns for continued bloody diarrhea as well. NEURO - * CAM ICU: NEGATIVE * Patient continues to appear slightly encephalopathic likely related to her acuity of illness. AAO x 2 (+person, +month/-year, +hospital) * She is otherwise able to answer historical information relatively appropriately. * No focal neurological findings on exam. CARDIAC/VASCULAR - * Hypotension: * Multifactorial in the 83-year-old female with septic shock and hypovolemia. * Patient likely initially with profound septic shock and distributive issues and had received 80 of IV Lasix with concerns for respiratory distress which further resulted in fluid wasting. * She received 2 L crystalloid in the emergency department. This was held further secondary to her history of heart failure with reduced ejection fraction of 35%. * Clinically dry on exam, persistent diarrhea upon admission, urine output dropped as well. Plasma-Lyte given * BP's now normotensive, was on Levophed 0.05 mcg/kg/min and vasopressin; successfully trialed off both vasopressors, maintained own BP * Monitor on telemetry. RESPIRATORY - * Respiratory distress: * Patient initially presented with concerns for respiratory distress. VBG showed slight acidosis without hypoxia. * BiPAP removed and patient normoxic on 6 L O2-nasal cannula. Normally requires 2 L O2 nasal cannula at night at baseline. * May be secondary to the patient's current influenza infection. * Monitor for decline in respiratory symptoms * Will add chest CT without contrast as we are imaging the patient's abdomen/pelvis to evaluate for any infiltrative processes that may be poorly differentiated on plain chest x-ray. * Asthma: * Previously documented. * Unable to appreciate prior pulmonary outpatient workups or PFTs. * Not bronchospastic on exam today. * Likely not in an exacerbation at this moment. GI/NUTRITION - * Diarrhea/"mike" stools: * Patient reports ongoing symptoms of diarrhea for the last several days. * This is likely contributing largely to the patient's hypovolemia, hypotension, and possibly source of patient's urinary tract infection as well. * Stool cultures/C. diff results: stool occult blood, neg; stool EPEC, pos --> azithromycin, 500 mg, TID * Nursing staff noted dark brown-colored stools upon arrival in the ICU. * Placed on BID Protonix for now as well. * No overt GI bleeding appreciated at this time. * Prophylaxis: Protonix BID RENAL/LYTES - * XIN on CKD-stage 3: * Multifactorial in the setting of sepsis and profound hypovolemia. * continues to improve, Cr, 1.29 <-- 1.56 <-- 1.73 <-- 1.81 * IV fluids given, electrolyte replacement as needed, monitor urine output. * IVF: Plasmalyte @ 100 mL/hr - * UTI: * In setting of indwelling Waddell catheter * Previous blood and urine cultures positive for pansensitive E. coli. * Urine Cx: Pos for Enterococcus faecium, VRE --> daptomycin, 650 mg, IV, Q48 hrs * CT-AP did not indicate kidney stone * Waddell in place - Strict I&Os. ENDO - * BSGs per unit protocol. ISS --> gtt per unit policy. * Hypothyroidism: * Continue home Levothyroxine dosing. HEME - * Anemia (08/21/23), Hgb, 6.6 (6.6 <-- 7.8 <-- 8.7) --> transfused 1 U PRB cells --> Hgb, 8.4 <-- 8.7 (08/23/23) AM after transfusion) * Will trend Hgb in the setting of bloody stools and potential for dilution in the setting of aggressive resuscitation. ID - * Severe sepsis with septic shock in the setting of urinary source: * Previously with pansensitive E. coli; was on Zosyn but discontinued, transitioned to daptomycin * WBC improving, (11.5 <-- 16.3 <-- 18.3) * Blood Cx: no growth after 48 hrs * MRSA nasal swab: neg LINES/IV ACCESS - * PIVs x2 * Waddell * PICC DVT PROPHYLAXIS - * Hold on anticoagulation while bloody stools/diarrhea is evaluated * [facility] Admission and Anticipated Discharge Date Admission Date: August 20, 2023 Supervising Physician Co-Signing Physician Notes Dr. Sue was resident physician during care of patient. I separately evaluated patient for spring portions of the history and the exam. I was present during the critical portion of medical decision making, and I discussed the case with the resident. I generally agree with the findings and plan. Improving diarrheal output, off vasoactive's for 24 hours. Is taking volitional p.o. however it is small. H&H relatively stable no indication for blood product transfusion at this time. Day 2 daptomycin for the Re: UTI, I would consider this complicated urinary tract infection as the patient had pyelonephritis less than 2 weeks prior with associated gram-negative bacteremia: E. coli, in reviewing prior imaging, there is note of a right inguinal hematoma which corresponds to fairly recent catheterization, there is also a documented stable fluid collection of the right kidney: Stable rim calcified hypodense lesion within the right kidney which may represent a cyst or chronic subcapsular collection. Because there is this anatomic abnormality I will consider this to be a complicated urinary tract infection and treat for a 2-week course after being previously treated with 2 weeks of antibiotics. Taking last day of Cipro for E. coli diarrhea. Convert Protonix from IV to oral. Restart Plavix. Starting chemoprophylaxis secondary to history of DVT, patient normally on Eliquis for A-fib but also carries diagnosis of PE. Therefore I think the patient is at increased risk for venous thromboembolism however in the light of ongoing blood loss we will continue to hold systemic anticoagulation for an additional 24 hours. Restart Cymbalta, continue to hold gabapentin at this time. Subjective The patient was seen and examined today in ICU. She appeared more alert this morning compared to yesterday--still has dyspnea at rest. Patient still denies any chest pain or palpitations, despite episode of atrial fibrillation. Patient has been transitioned off vasopressors now and is maintaining her own blood pressures without any hypotensive readings. Patient feels some minor stomach pain, chest tightness and shortness of breath, and headaches, but overall feels the best since arrival in the ICU. Review of Systems Constitutional: + fatigue and + weakness; no fever and n o chills Respiratory: + chest congestion, + dyspnea, + sputum production and + wheezing Cardiovascular: no chest pain, no palpitations and no lightheadedness Gastrointestinal: + diarrhea/loose stools (early this morn ing had loose stools) and + blood in stools Genitourinary: no dysuria, no hematuria and no flank pain Neurologic: no localized weakness and no loss of sensation Psychiatric: no irritability and no confusion Physical Exam Constitutional: + obese and cooperative; + not appropria tely hydrated Respiratory: Auscultation: + crackles and + wheezes Cardiovascular: Heart Sounds: normal S1, normal S2 and + murmur Gastrointestinal (Abdomen): normal bowel sounds, soft, nontender, no hepatosplenomegaly Neurologic: Cranial Nerves: PERRL, normal accommodation, EOM intact bilaterally, normal facial strength, tongue midline and able to elevate shoulders bilaterally Psychiatric: A+Ox3, euthymic affect Orientation: alert, oriented to person, oriented to place (hospital, thought it was [facility]) and cooperative; + not oriented to time (August,) Eye Contact: good eye contact and + fair eye contact Speech: normal rate/rhythm/volume of speech Affect: euthymic affect Genitourinary: normal external appearance and bladder normal to inspection; no CVA tenderness Results & Data Results & Data Vital Signs (Past 12 Hours) Vital Signs Temp Pulse Resp BP BP Pulse Ox O2 Del Method 08/23/23 06:00 127/59 L 08/23/23 05:30 81 19 96 08/23/23 05:00 117/54 L 08/23/23 05:00 81 20 94 08/23/23 04:30 86 19 95 08/23/23 04:18 36.6 C 08/23/23 04:00 85 19 96 08/23/23 04:00 121/70 08/23/23 03:30 82 17 96 08/23/23 03:00 119/53 L 08/23/23 03:00 83 19 97 08/23/23 02:30 83 18 99 08/23/23 02:00 121/55 L 08/23/23 02:00 84 19 98 08/23/23 01:38 91 H 21 99 08/23/23 01:38 123/65 08/23/23 01:00 88 20 08/23/23 01:00 117/54 L 08/23/23 00:01 85 21 91 08/23/23 00:01 126/61 08/23/23 00:00 36.4 C L 08/23/23 00:00 85 18 08/22/23 23:30 131/63 08/22/23 23:30 86 18 08/22/23 23:14 88 21 96 08/22/23 23:01 127/69 08/22/23 23:01 85 21 97 08/22/23 23:00 85 22 08/22/23 22:52 85 08/22/23 22:30 144/76 H 08/22/23 22:30 87 22 98 08/22/23 22:00 86 23 98 08/22/23 21:30 130/70 08/22/23 21:30 90 22 99 08/22/23 21:00 89 21 98 08/22/23 21:00 137/68 08/22/23 20:30 133/67 08/22/23 20:30 89 22 99 08/22/23 20:01 93 H 25 H 97 08/22/23 20:01 125/82 08/22/23 20:00 149 H 24 96 08/22/23 20:00 Nasal Cannula 08/22/23 20:00 36.4 C L 08/22/23 19:30 120/75 08/22/23 19:30 88 22 O2 Flow Rate 08/23/23 06:00 08/23/23 05:30 08/23/23 05:00 08/23/23 05:00 08/23/23 04:30 08/23/23 04:18 08/23/23 04:00 08/23/23 04:00 08/23/23 03:30 08/23/23 03:00 08/23/23 03:00 08/23/23 02:30 08/23/23 02:00 08/23/23 02:00 08/23/23 01:38 08/23/23 01:38 08/23/23 01:00 08/23/23 01:00 08/23/23 00:01 08/23/23 00:01 08/23/23 00:00 08/23/23 00:00 08/22/23 23:30 08/22/23 23:30 08/22/23 23:14 3 08/22/23 23:01 08/22/23 23:01 08/22/23 23:00 08/22/23 22:52 08/22/23 22:30 08/22/23 22:30 08/22/23 22:00 08/22/23 21:30 08/22/23 21:30 08/22/23 21:00 08/22/23 21:00 08/22/23 20:30 08/22/23 20:30 08/22/23 20:01 08/22/23 20:01 08/22/23 20:00 08/22/23 20:00 4 08/22/23 20:00 08/22/23 19:30 08/22/23 19:30
[2023-08-23] MEDS: AZITHROMYCIN 250 MG TAB PO SCH (08:07)
[2023-08-23] MEDS: PANTOprazole 40 MG in SYRINGE 0 ML IV SCH (08:07)
[2023-08-23] MEDS: METOPROLOL SUCC 25MG EXT REL TAB PO SCH ×2 (08:07→20:20)
[2023-08-23] MEDS: NOREPINEPHRINE/D5W 4 MG/250 ML PLCT IV SCH (10:32)
[2023-08-23] MEDS: ENOXAPARIN INJ 40 MG/0.4 ML SYR SQ SCH (12:03)
[2023-08-23] MEDS: DAPTOmycin 650 MG in SYRINGE 0 ML IV SCH (12:28)
--- NOTE | 2023-08-23 13:23 | Hospitalist Progress Note ---
Date of Service August 23, 2023 Assessment & Plan (1) Septic shock: (2) E coli bacteremia: (3) Complicated UTI (urinary tract infection): (4) Acute kidney injury superimposed on CKD: (5) Compensated respiratory acidosis: (6) Influenza A: (7) PAF (paroxysmal atrial fibrillation): (8) HTN, goal below 130/80: (9) Pulmonary embolism: (10) CAD (coronary artery disease): Plan 83 year old female presents to the [facility] via EMS from [facility] after having a complex inpatient hospitalization last month from 07/26/23-08/05/23 for septic shock and pyelonephritis with gram negative rods and E. Coli requiring ICU stabilization and inotropic support with Levo. Tested positive for influenza A while at [facility] as well. She started to become short of breath while at [facility] and they had administered 80 mg of IV Lasix with concerns of a CHF exacerbation. She was placed on BiPAP and route. Numerous Comorbidities including: COPD, HFrEF, HTN, HLD, A-fib, history of PE, history of CVA, hypothyroidism, and GERD. Leukocytosis 15.66, creatinine 1.81, procalcitonin 15.58, magnesium 1.7, UTI with leukocyte esterase 3+, WBC greater than 30, Patient is surprisingly AAOx3 and able to have full meaningful conversation and I do not suspect any encephalopathy. She is able to deny headache, dizziness, lightheadedness, chest pain, palpitations, bowel or bladder changes or recent fa lls. Patient is typically wheelchair-bound but has been working with physical therapy for strengthening. She was lying in her hospital bed with her BiPAP mask on FiO2 50%. We did trial pausing the Levophed however she became hypotensive and her map did not support greater than 65. Patient did tolerate removal of BiPAP mask and maintain saturations greater than 93%. Able to move all extremities and is dry on exam. Per family, patient has not been moving in the right direction since she has been at [facility]; she has decreased appetite and has poor oral fluid intake. Suspect this individual has been over diuresed and with being flu + became hypotensive and SOB. Continued UTI on labs and with visual presentation; continue IV abx taking into consideration renal function. Lengthy conversation with pt and family. Confirmed DNR/DNI. No defib/shock. OK for Bipap and vasopressors. Discussed with ICU Hydro Sprayer Operator Dr. Byrd. Septic Shock: VRE UTI Acute Leukocytosis 15.66, procalcitonin 15.58 Was started on cefepime in the ED; review of last hospitalization goal was to avoid Vanco due to reduced kidney function. Patient was MRSA positive last admission so we will start Zosyn and await blood culture results Lactate 1.4 MRSA screen has been negative Urine culture is growing VRE Blood cultures are negative so far Hypotensive in route and in ED; just weaned off of Levo. Monitor BP and keep maps greater than 65 Started on intravenous Levophed-Levophed has been discontinued Continued with intravenous Zosyn and added IV azithromycin for respiratory coverage Zosyn discontinued and daptomycin added to cover VRE in urine Clinically stable and getting better without any fever and or chills White count has been improving Influenza A: Acute Tested positive at [facility] per outpatient records; unsure date PCR positive here in ED Supportive treatmentand Tamiflu is not indicated Chest x-ray shows bibasilar infiltration/atelectasis Also on intravenous Zosyn and azithromycin Zosyn has been discontinued and azithromycin will be continued to finish the course to cover possible pneumonia No increasing shortness of breath-requiring 4 L via nasal cannula to maintain saturation XIN on CKD: Acute Serum creatinine 1.81; received Lasix 80 mg this a.m. for SOB Baseline creatinine 0.7-0.9 Avoid nephrotoxic agents Received intravenous fluid Creatinine slightly better at 1.73 from 1.81 on admission Kidney function has been improving with a creatinine improved to 1.56 as of 08/22/2023 Creatinine has been improving and it is at 1.29 today 08/23/2023 HFrEF: SOB: Acute Compensated respiratory acidosis; pH 7.34, CO2 44, HCO3 24 Received Lasix 80 mg via EMS; On Bipap FiO2 50% Trial removal tolerated; on nasal cannula Suspect SOB related to being Flu + Last ECHO 07/26/2023 with reduced EF 35 to 40% and moderate global akinesis Requiring 4 L to maintain saturation Anemia No overt bleeding Could be secondary to sepsis Hemoglobin dropped to 6.6 in part complicated by IV fluid and dilution Will be receiving 1 to 2 units of blood transfusion Will monitor CBC-hemoglobin remains stable at 8.4 Atrial Fibrillation: Chronic Takes Eliquis and Metoprolol; continue Eliquis on hold due to low hemoglobin and requiring blood transfusion Short episode of A-fib with RVR and started on intravenous amiodarone Reverted to sinus rhythm and amiodarone has been discontinued Was on beta-hayden before and will restart gradually Beta-hayden has been restarted with 25 mg twice daily Will increase the dose to 50 mg twice daily in a day or 2 when blood pressure is more stable HLD: Chronic Takes atorvastatin; continue Hypothyroidism: Chronic Takes Levothyroxine; continue GERD: Chronic Takes Pantoprazole;continue Disposition: PCP: Dr. Salas Code Status: DNR/DNI VTE Prophylaxis: On Eliquis Started with Lovenox as prophylactic dose from today Likely to start Eliquis in a day or 2 Admission and Anticipated Discharge Date Admission Date: August 20, 2023 Subjective 08/21/2023 The patient was seen and examined in ICU She has been feeling a little better but he still has shortness of breath at rest Noted to be tachycardic as well, denies any chest pain and her palpitation 08/22/2023 The patient was seen and examined in the ICU She has been feeling much better now Denies any significant symptoms except weakness and tiredness Has been off of IV pressors 08/23/2023 The patient was seen and examined in ICU She has been feeling a little better but he still remains very weak and lethargic Has been requiring 4 L of oxygen to maintain saturation Denies any other acute distress or pain Review of Systems Review of Systems: All systems reviewed and are unremarkable except as noted below Physical Exam Physical Exam: Lying in bed with minimal respiratory distress Constitutional: + ill appearing and average body habitus Eyes: PERRL, conjunctivae normal, anicteric sclerae ENMT: external ear and nose normal, oropharynx normal Neck: trachea midline, no thyromegaly Respiratory: no respiratory distress Auscultation: + diminished lung sounds and + crackles (Minimal bibasilar crackles) Cardiovascular: Rate/Rhythm: regular rate, regular rhythm and + tachycardic Heart Sounds: normal S1 and normal S2; no murmur Extremities: no edema Gastrointestinal (Abdomen): Inspection/Auscultation: normal bowel sounds; abdomen not distended Percussion/Palpation: abdomen soft; abdomen nontender Musculoskeletal: No acute arthritis involving any of the joint but remains very weak Neurologic: normal touch/pain/proprioception and moves all extremities; no focal motor deficits Lymphatic: no cervical or axillary lymphadenopathy Results & Data Results & Data Vital Signs (Past 12 Hours) Vital Signs Temp Pulse Resp BP BP Pulse Ox O2 Del Method 08/23/23 08:00 Nasal Cannula 08/23/23 08:00 Nasal Cannula 08/23/23 08:00 85 08/23/23 06:00 127/59 L 08/23/23 05:30 81 19 96 08/23/23 05:00 117/54 L 08/23/23 05:00 81 20 94 08/23/23 04:30 86 19 95 08/23/23 04:18 36.6 C 08/23/23 04:00 85 19 96 08/23/23 04:00 121/70 08/23/23 03:30 82 17 96 08/23/23 03:00 119/53 L 08/23/23 03:00 83 19 97 08/23/23 02:30 83 18 99 08/23/23 02:00 121/55 L 08/23/23 02:00 84 19 98 08/23/23 01:38 91 H 21 99 08/23/23 01:38 123/65 O2 Flow Rate 08/23/23 08:00 4 08/23/23 08:00 08/23/23 08:00 08/23/23 06:00 08/23/23 05:30 08/23/23 05:00 08/23/23 05:00 08/23/23 04:30 08/23/23 04:18 08/23/23 04:00 08/23/23 04:00 08/23/23 03:30 08/23/23 03:00 08/23/23 03:00 08/23/23 02:30 08/23/23 02:00 08/23/23 02:00 08/23/23 01:38 08/23/23 01:38 Laboratory Results Short CBC 08/22/23 08/23/23 Range/Units 16:51 04:04 WBC 11.49 H (4.8-10.8) K/ul Hgb 8.5 L 8.4 L (12.0-16.0) g/dl Hct 26.0 L 25.7 L (37.0-47.0) % Plt Count 166 (130-400) K/uL BMP 08/23/23 04:04 Sodium 135 L Potassium 3.5 Chloride 105 Carbon Dioxide 22 BUN 26 H Creatinine 1.29 H Glucose 76 Calcium 7.1 L Medications Administered Current Inpatient Medications Acetaminophen (Acetaminophen 325 Mg Tab) 650 mg PO Q4H PRN PRN Reason: Pain or Fever Stop: 09/19/23 13:22 Last Admin: 08/23/23 01:35 Dose: 650 mg Al Hydrox/Mg Hydrox/Simethicone (Aluminum/Magnesium Susp 30 Ml Udc) 15 ml PO Q4H PRN PRN Reason: Dyspepsia Stop: 09/19/23 13:22 Clopidogrel Bisulfate (Clopidogrel Bisulfate 75 Mg Tab) 75 mg PO DAILY [facility] Stop: 09/23/23 08:59 Dextrose (Dextrose 50% 50 Ml Syringe) 25 - 50 ml IV UD PRN; Protocol PRN Reason: Hypoglycemia Protocol Stop: 09/22/23 00:23 Duloxetine HCl (Duloxetine Hcl 60 Mg Cap) 60 mg PO BID [facility] Stop: 09/22/23 20:59 Enoxaparin Sodium (Enoxaparin Inj 40 Mg/0.4 Ml Syr) 40 mg SQ DAILY [facility] Stop: 09/22/23 10:59 Last Admin: 08/23/23 12:03 Dose: 40 mg Fluticasone/Vilanterol (Fluticasone/Vilanterol 100/25mcg 14 Puffs/Inhaler) 1 puffs INH DAILY [facility] Stop: 09/23/23 08:59 Glucagon (Glucagon For Inj 1 Mg Vial) 1 mg SQ UD PRN; Protocol PRN Reason: Hypoglycemia Protocol Stop: 09/22/23 00:23 Glucose (Glucose 10 Tab/Tube) 4 - 8 tab PO UD PRN; Protocol PRN Reason: Hypoglycemia Treatment Stop: 09/22/23 00:23 Glucose (Glucose 40% Gel 15 Gm Tube) 15 - 30 gm PO UD PRN; Protocol PRN Reason: Hypoglycemia Protocol Stop: 09/22/23 00:23 Daptomycin 650 mg/ Syringe 13 mls @ 6.5 mls/min IV Q24H [facility]; Protocol Stop: 09/02/23 10:59 Last Admin: 08/23/23 12:28 Dose: 6.5 mls/min Levothyroxine Sodium (Levothyroxine Sodium 50 Mcg Tablet) 50 mcg PO DAILYBB [facility] Stop: 09/23/23 06:29 Magnesium Hydroxide (Magnesium Hydroxide Susp 30 Ml Udc) 30 ml PO Q12H PRN PRN Reason: Constipation Stop: 09/19/23 13:22 Metoprolol Succinate (Metoprolol Succ 25mg Ext Rel Tab) 25 mg PO BID [facility] Stop: 09/21/23 20:59 Last Admin: 08/23/23 08:07 Dose: 25 mg Miscellaneous (Carbohydrates For Hypoglycemia ) 15 - 30 gm PO UD PRN PRN Reason: Hypoglycemia Protocol Stop: 09/22/23 00:23 Last Admin: 08/23/23 00:25 Dose: 15 gm Montelukast Sodium (Montelukast Sodium 10 Mg Tablet) 10 mg PO HS [facility] Stop: 09/22/23 20:59 Ondansetron HCl (Ondansetron Inj 2 Mg/Ml 2 Ml Vial) 4 mg IV Q6H PRN PRN Reason: Nausea Stop: 09/19/23 13:22 Pantoprazole Sodium (Pantoprazole 40 Mg Tab) 40 mg PO QAM [facility] Stop: 09/23/23 08:59 Polyethylene Glycol (Polyethylene (Miralax) 17 Gm Pack) 17 gm PO DAILY PRN PRN Reason: Constipation Stop: 09/19/23 13:22
[2023-08-23] MEDS: DULoxetine HCL 60 MG CAP PO SCH (20:20)
[2023-08-23] MEDS: MONTELUKAST SODIUM 10 MG TABLET PO SCH (20:20)
[2023-08-24] MEDS: ALBUTEROL 0.083% NEBU SOLN 3 ML VIAL NEB PRN (00:20)
[2023-08-24] MEDS: CARBOHYDRATES FOR HYPOGLYCEMIA PO PRN ×2 (03:02→03:22)
[2023-08-24] MEDS ORDERED: D5W AND LACTATED RINGERS 1,000 ML IV SCH (04:30)
[2023-08-24 04:31] LABS: Basophils # (auto) 0.04 K/uL (0.00-0.20); Basophils % (auto) 0.4 %; Eosinophils # (auto) 0.14 K/uL (0.00-0.50); Eosinophils % (auto) 1.4 %; Hematocrit (blood only) 25.8 % (37.0-47.0); Hemoglobin 8.8 g/dl (12.0-16.0); Immature Granulocytes # (auto) 0.09 K/uL (0.01-0.20); Immature Granulocytes % (auto) 0.9 %; Lymphocytes # (auto) 0.94 K/uL (1.20-3.40); Lymphocytes % (auto) 9.7 %; Mean Corpuscular Hemoglobin 34.6 pg (25.0-34.0); Mean Corpuscular Hgb Conc 34.1 g/dL (32.0-36.0); Mean Corpuscular Volume 101.6 fL (80.0-100.0); Mean Platelet Volume 10.5 fL (9.4-12.4); Monocytes # (auto) 0.67 K/uL (0.11-0.59); Monocytes % (auto) 6.9 %; Neutrophils # (auto) 7.86 K/uL (1.40-6.50); Neutrophils % (auto) 80.7 %; Platelet Count 176 K/uL (130-400); RDW Standard Deviation 67.7 fL (36.4-46.3); Red Blood Count 2.54 M/uL (4.20-5.40); White Blood Count 9.74 K/ul (4.8-10.8)
[2023-08-24 04:44] LABS: BUN Creatinine Ratio 21.2 (10-20); Calcium 7.4 mg/dl (8.6-10.3); Creatinine Clr Calc Pharmacy 42.9 ml/min; Est GFR (African American) 58.4 ml/min; Est GFR (Non-African American) 50.3 ml/min; Potassium 3.3 mmol/L (3.5-5.1)
--- NOTE | 2023-08-24 05:51 | Billing Data ---
Date of Service August 23, 2023 Coding Level of Care Code 14158 SUB INP/OBS CARE
[2023-08-24] MEDS: LEVOTHYROXINE SODIUM 50 MCG TABLET PO SCH (06:01)
[2023-08-24] MEDS ORDERED: POTASSIUM CHLORIDE CRTAB 20 MEQ TABCR PO STA (06:28)
--- NOTE | 2023-08-24 07:38 | Critical Care Progress Note ---
Date of Service August 24, 2023 Assessment & Plan (1) Influenza A: (2) Shortness of breath: (3) Acute UTI (urinary tract infection): (4) Diarrhea: (5) Septic shock: Plan Patient is a 83 yo F w/ a PMHx of anemia, paroxysmal AFib, Hx of WI, Hx of PE, chronic anticoagulation, pulmonary edema, osteoporosis, osteoarthritis, Hx of DVT, HTN, hypothyroidism, WAYLON/sleep apnea, asthma. Pt has extensive Sg Hx too: cardiac catheterization, l. knee surgery, , JOSSELYN/BSO, appendectomy, cholecystectomy, cataract surgery, tonsillectomy, EGD, colonoscopy. Presented to hospital with dyspnea, following a positive influenza A-test (decreased appetite, poor oral fluid intake since previous [facility] d/c) while at [facility] after recent hospital stay here at [facility] from 07/26/23 - 08/05/23 due to septic shock, pyelonephritis. Assessment (1) Influenza A: (2) Shortness of breath: (3) Acute UTI (urinary tract infection): (4) Septic shock: (5) Diarrhea/EPEC infection Plan Reason Critically Ill: 83 yo F presenting with severe sepsis and septic shock in setting of UTI with associated respiratory failure in the setting of influenza A. Concerns for continued bloody diarrhea as well. NEURO - * CAM ICU: NEGATIVE * Patient no longer encephalopathic but still is significantly fatigued. AAO x 3 * She is otherwise able to answer historical information relatively appropriately. * No focal neurological findings on exam. CARDIAC/VASCULAR - * Hypotension: * Multifactorial in the 83-year-old female with septic shock and hypovolemia. * Patient likely initially with profound septic shock and distributive issues and had received 80 of IV Lasix with concerns for respiratory distress which further resulted in fluid wasting. * She received 2 L crystalloid in the emergency department. This was held further secondary to her history of heart failure with reduced ejection f raction of 35%. * Clinically dry on exam, persistent diarrhea upon admission, urine output dropped as well. Plasma-Lyte given * BP's now normotensive, was on Levophed 0.05 mcg/kg/min and vasopressin; successfully trialed off both vasopressors, continues to maintain own BP * Monitor on telemetry. RESPIRATORY - * Respiratory distress: * Patient initially presented with concerns for respiratory distress. VBG showed slight acidosis without hypoxia. * BiPAP/CPAP resumed, QHS (normally requires 2 L O2 nasal cannula at night at baseline) * During day, on 5 L O2-nasal cannula. * May be secondary to the patient's current influenza infection. * Monitor for decline in respiratory symptoms * Will add chest CT without contrast as we are imaging the patient's abdomen/pelvis to evaluate for any infiltrative processes that may be poorly differentiated on plain chest x-ray. * Asthma: * Previously documented. * Unable to appreciate prior pulmonary outpatient workups or PFTs. * Not bronchospastic on exam today. * Likely not in an exacerbation at this moment. GI/NUTRITION - * Diarrhea/"mike" stools: * Patient reported ongoing symptoms of diarrhea upon admission * This likely contributed to the patient's hypovolemia, hypotension * Stool cultures/C. diff results: stool occult blood, neg; stool EPEC, pos --> azithromycin, 500 mg, TID course completed * Nursing staff noted dark brown-colored stools upon arrival in the ICU. * Placed on BID Protonix for now as well. * No overt GI bleeding appreciated at this time. * Prophylaxis: Protonix BID RENAL/LYTES - * XIN on CKD-stage 3: * Multifactorial in the setting of sepsis and profound hypovolemia. * continues to improve, Cr, 1.04 <-- 1.29 <-- 1.56 <-- 1.73 <-- 1.81 * IV fluids given, electrolyte replacement as needed, monitor urine output. * IVF: Plasmalyte @ 100 mL/hr - * UTI: * In setting of indwelling Waddell catheter * Previous blood and urine cultures positive for pansensitive E. coli. * Urine Cx: Pos for Enterococcus faecium, VRE --> daptomycin, 650 mg, IV, Q24 hrs * CT-AP did not indicate kidney stone * Waddell in place - Strict I&Os. ENDO - * BSGs per unit protocol. ISS --> gtt per unit policy. * Hypothyroidism: * Continue home Levothyroxine dosing. HEME - * Anemia (08/21/23), Hgb, 6.6 (6.6 <-- 7.8 <-- 8.7) --> transfused 1 U PRB cells --> Hgb, 8.8 <-- 8.7 (01/05/24) AM after transfusion) * Will trend Hgb in the setting of bloody stools and potential for dilution in the setting of aggressive resuscitation. ID - * Severe sepsis with septic shock in the setting of urinary source: * Previously with pansensitive E. coli; was on Zosyn but discontinued, transitioned to daptomycin * WBC improving, (9.7 <-- 11.5 <-- 16.3 <-- 18.3) * Blood Cx: no growth after 48 hrs * MRSA nasal swab: neg LINES/IV ACCESS - * PIVs x2 * Waddell * PICC DVT PROPHYLAXIS - * Hold on anticoagulation while bloody stools/diarrhea is evaluated * [facility]mission and Anticipated Discharge Date Admission Date: August 20, 2023 Supervising Physician Co-Signing Physician Notes Dr. Sue was resident physician during care of patient. I separately evaluated patient for spring portions of the history and the exam. I was present during the critical portion of medical decision making, and I discussed the case with the resident. I generally agree with the findings and plan. Patient has remained on minimal oxygen off vasoactive medications greater than 48 hours. Day 3 daptomycin for the Re: UTI, I would consider this complicated urinary tract infection as the patient had pyelonephritis less than 2 weeks prior with associated gram-negative bacteremia: E. coli, in reviewing prior imaging, there is note of a right inguinal hematoma which corresponds to fairly recent catheterization, there is also a documented stable fluid collection of the right kidney: Stable rim calcified hypodense lesion within the right kidney which may represent a cyst or chronic subcapsular collection. Because there is this anatomic abnormality I will consider this to be a complicated urinary tract infection and treat for a 2-week course after being previously treated with 2 weeks of antibiotics. Completed course of Cipro for E. coli diarrhea and stool volume has decreased. Continue Plavix. Patient's H&H remains stable, she has a history of A-fib and a diagnosis of PE was previously on Eliquis. I think the risk of hemorrhage is minimal compared to the risk for stroke/venous thromboembolism will transition from DVT chemoprophylaxis to systemic anticoagulation with Eliquis. Patient has had recurrent episodes of hypoglycemia over the night. Dextrose solutions started overnight, patient admits to decreased p.o. intake. I have encouraged her to advance her diet. We will discontinue dextrose containing solutions. She is not on hypoglycemic agents. Defer to medicine service if additional workup is warranted, by report patient is not symptomatic during these episodes. Patient is stable for downgrade out of the ICU. Subjective The patient was seen and examined today in ICU. She appeared more alert this morning compared to yesterday--still has dyspnea at rest. Patient still denies any chest pain or palpitations, despite episode of atrial fibrillation. Patient has been transitioned off vasopressors now and is maintaining her own blood pressures without any hypotensive readings. Patient feels some minor stomach pain, chest tightness and shortness of breath, but overall feels about the same as yesterday. Patient's cough seemed more productive this morning upon exam. Review of Systems Constitutional: + fatigue and + weakness; no fever and n o chills Respiratory: + chest congestion, + dyspnea, + sputum production and + wheezing Cardiovascular: no chest pain, no palpitations and no lightheadedness Gastrointestinal: + diarrhea/loose stools (early this morn ing had loose stools) and + blood in stools Genitourinary: no dysuria, no hematuria and no flank pain Neurologic: no localized weakness and no loss of sensation Psychiatric: no irritability and no confusion Physical Exam Constitutional: + obese and cooperative; + not appropria tely hydrated Respiratory: Auscultation: + wheezes Cardiovascular: Heart Sounds: normal S1, normal S2 and + murmur Gastrointestinal (Abdomen): Inspection/Auscultation: abdomen normal to inspection and normal bowel sounds Percussion/Palpation: + abdomen tender; no hepatosplenomegaly Neurologic: Cranial Nerves: PERRL, normal accommodation, EOM intact bilaterally, normal facial strength, tongue midline and able to elevate shoulders bilaterally Psychiatric: A+Ox3, euthymic affect Orientation: alert, oriented x 3 and cooperative Eye Contact: + fair eye contact Speech: normal rate/rhythm/volume of speech Affect: euthymic affect Genitourinary: normal external appearance and bladder normal to inspection; no CVA tenderness Results & Data Results & Data Vital Signs (Past 12 Hours) Vital Signs Temp Pulse Pulse Resp BP Pulse Ox O2 Del Method 08/24/23 06:00 89 23 95 08/24/23 05:00 84 24 143/67 H 84 L 08/24/23 04:00 87 24 117/59 L 96 08/24/23 03:04 36.3 C L 08/24/23 03:00 134/51 L 08/24/23 03:00 87 23 92 08/24/23 02:00 82 21 91 08/24/23 02:00 128/68 08/24/23 01:00 127/72 08/24/23 01:00 87 21 92 08/24/23 00:30 91 H 19 97 08/24/23 00:21 86 18 94 Nasal Cannula 08/24/23 00:05 89 08/24/23 00:01 88 21 98 08/24/23 00:01 142/69 H 08/24/23 00:00 88 40 H 98 08/23/23 23:34 36.4 C L 08/23/23 23:00 94 H 20 143/71 H 100 08/23/23 22:00 93 H 24 132/82 96 08/23/23 21:00 93 H 23 133/65 100 08/23/23 20:00 96 H 23 144/76 H 97 08/23/23 19:39 36.3 C L O2 Flow Rate 08/24/23 06:00 08/24/23 05:00 08/24/23 04:00 08/24/23 03:04 08/24/23 03:00 08/24/23 03:00 08/24/23 02:00 08/24/23 02:00 08/24/23 01:00 08/24/23 01:00 08/24/23 00:30 2 08/24/23 00:21 3 08/24/23 00:05 08/24/23 00:01 08/24/23 00:01 08/24/23 00:00 08/23/23 23:34 08/23/23 23:00 08/23/23 22:00 08/23/23 21:00 08/23/23 20:00 08/23/23 19:39
[2023-08-24] MEDS: PANTOprazole 40 MG TAB PO SCH (09:32)
[2023-08-24] MEDS: FLUTICASONE/VILANTEROL 100/25MCG 14 PUFFS/INHALER INH SCH (09:32)
[2023-08-24] MEDS: DULoxetine HCL 60 MG CAP PO SCH ×2 (09:32→20:23)
[2023-08-24] MEDS: METOPROLOL SUCC 25MG EXT REL TAB PO SCH (09:32)
[2023-08-24] MEDS: ENOXAPARIN INJ 40 MG/0.4 ML SYR SQ SCH (10:12)
[2023-08-24] MEDS: CLOPIDOGREL BISULFATE 75 MG TAB PO SCH (10:12)
[2023-08-24] MEDS: DAPTOmycin 650 MG in SYRINGE 0 ML IV SCH (10:13)
--- NOTE | 2023-08-24 10:20 | XRay Report ---
XR chest 1V portable CLINICAL HISTORY: hypoxia COMPARISON STUDY: Chest CT February 18, 2024. Chest radiograph August 21, 2023. FINDINGS: A left PICC remains in place. Severe osteoarthritis of the bilateral glenohumeral joints is incidentally noted. There is no pneumothorax. There are suspected small bilateral pleural effusions. Elevation of the right hemidiaphragm is unchanged. Interstitial thickening and bilateral opacities p ersist. Cardiomediastinal silhouette is stable. IMPRESSION: 1. No significant change in interstitial thickening and bilateral airspace opacities. Findings favor multifocal pneumonia with possible superimposed pulmonary edema. 2. Suspected small bilateral pleural effusions. ACT 112: Negative or not required by law. Electronically signed by: Shon Rushing M.D. 08/24/2023 10:18 AM
--- NOTE | 2023-08-24 12:24 | Billing Data ---
Date of Service August 24, 2023 Coding Level of Care Code 77760 SUB INP/OBS CARE
--- NOTE | 2023-08-24 14:15 | Hospitalist Progress Note ---
Date of Service August 24, 2023 Assessment & Plan (1) Septic shock: (2) E coli bacteremia: (3) Complicated UTI (urinary tract infection): (4) Acute kidney injury superimposed on CKD: (5) Compensated respiratory acidosis: (6) Influenza A: (7) PAF (paroxysmal atrial fibrillation): (8) HTN, goal below 130/80: (9) Pulmonary embolism: (10) CAD (coronary artery disease): Plan 83 year old female presents to the [facility] via EMS from [facility] after having a complex inpatient hospitalization last month from 07/26/23-08/05/23 for septic shock and pyelonephritis with gram negative rods and E. Coli requiring ICU stabilization and inotropic support with Levo. Tested positive for influenza A while at [facility] as well. She started to become short of breath [facility] and they had administered 80 mg of IV Lasix with concerns of a CHF exacerbation. She was placed on BiPAP and route. Numerous Comorbidities including: COPD, HFrEF, HTN, HLD, A-fib, history of PE, history of CVA, hypothyroidism, and GERD. Leukocytosis 15.66, creatinine 1.81, procalcitonin 15.58, magnesium 1.7, UTI with leukocyte esterase 3+, WBC greater than 30, Patient is surprisingly AAOx3 and able to have full meaningful conversation and I do not suspect any encephalopathy. She is able to deny headache, dizziness, lightheadedness, chest pain, palpitations, bowel or bladder changes or recent fa lls. Patient is typically wheelchair-bound but has been working with physical therapy for strengthening. She was lying in her hospital bed with her BiPAP mask on FiO2 50%. We did trial pausing the Levophed however she became hypotensive and her map did not support greater than 65. Patient did tolerate removal of BiPAP mask and maintain saturations greater than 93%. Able to move all extremities and is dry on exam. Per family, patient has not been moving in the right direction since she has been at [facility]; she has decreased appetite and has poor oral fluid intake. Suspect this individual has been over diuresed and with being flu + became hypotensive and SOB. Continued UTI on labs and with visual presentation; continue IV abx taking into consideration renal function. Lengthy conversation with pt and family. Confirmed DNR/DNI. No defib/shock. OK for Bipap and vasopressors. Discussed with ICU [employer] Dr. Byrd. Septic Shock: VRE UTI Acute Leukocytosis 15.66, procalcitonin 15.58 Was started on cefepime in the ED; review of last hospitalization goal was to avoid Vanco due to reduced kidney function. Patient was MRSA positive last admission so we will start Zosyn and await blood culture results Lactate 1.4 MRSA screen has been negative Urine culture is growing VRE Blood cultures are negative so far Hypotensive in route and in ED; just weaned off of Levo. Monitor BP and keep maps greater than 65 Started on intravenous Levophed-Levophed has been discontinued Continued with intravenous Zosyn and added IV azithromycin for respiratory coverage Zosyn discontinued and daptomycin added to cover VRE in urine Clinically stable and getting better without any fever and or chills Remains stable and showing more improvement Influenza A: Acute [facility]; unsure date PCR positive here in ED Supportive treatmentand Tamiflu is not indicated Chest x-ray shows bibasilar infiltration/atelectasis Also on intravenous Zosyn and azithromycin Zosyn has been discontinued and azithromycin will be continued to finish the course to cover possible pneumonia No increasing shortness of breath-requiring 4 L via nasal cannula to maintain saturation Chest x-ray showed pulmonary congestion/multifocal pneumonia Will give a small dose of Lasix for more diuresis XIN on CKD: Acute Serum creatinine 1.81; received Lasix 80 mg this a.m. for SOB Baseline creatinine 0.7-0.9 Avoid nephrotoxic agents Received intravenous fluid Creatinine slightly better at 1.73 from 1.81 on admission Kidney function has been improving with a creatinine improved to 1.56 as of 08/22/2023 Creatinine has been improving and it is at 1.29 today 08/23/2023 Creatinine has been normalized HFrEF: SOB: Acute Compensated respiratory acidosis; pH 7.34, CO2 44, HCO3 24 Received Lasix 80 mg via EMS; On Bipap FiO2 50% Trial removal tolerated; on nasal cannula Suspect SOB related to being Flu + Last ECHO 07/26/2023 with reduced EF 35 to 40% and moderate global akinesis Requiring 4 L to maintain saturation Chest x-ray shows mild congestion and will give 20 of Lasix IV x 1 Anemia No overt bleeding Could be secondary to sepsis Hemoglobin dropped to 6.6 in part complicated by IV fluid and dilution Will be receiving 1 to 2 units of blood transfusion Will monitor CBC-hemoglobin remains stable at 8.4 No more evidence of bleeding and hemoglobin remained stable Atrial Fibrillation: Chronic Takes Eliquis and Metoprolol; continue Eliquis on hold due to low hemoglobin and requiring blood transfusion Short episode of A-fib with RVR and started on intravenous amiodarone Reverted to sinus rhythm and amiodarone has been discontinued Was on beta-hayden before and will restart gradually Beta-hayden has been restarted with 25 mg twice daily Will increase the dose to 50 mg twice daily in a day or 2 when blood pressure is more stable Eliquis has been restarted HLD: Chronic Takes atorvastatin; continue Hypothyroidism: Chronic Takes Levothyroxine; continue GERD: Chronic Takes Pantoprazole;continue Disposition: PCP: Dr. Salas Code Status: DNR/DNI VTE Prophylaxis: On Eliquis Started with Lovenox as prophylactic dose from today Likely to start Eliquis in a day or 2 Admission and Anticipated Discharge Date Admission Date: August 20, 2023 Subjective 08/21/2023 The patient was seen and examined in ICU She has been feeling a little better but he still has shortness of breath at rest Noted to be tachycardic as well, denies any chest pain and her palpitation 08/22/2023 The patient was seen and examined in the ICU She has been feeling much better now Denies any significant symptoms except weakness and tiredness Has been off of IV pressors 08/23/2023 The patient was seen and examined in ICU She has been feeling a little better but he still remains very weak and lethargic Has been requiring 4 L of oxygen to maintain saturation Denies any other acute distress or pain 08/24/2023 The patient was seen and examined in ICU She is much better and does not have any significant complaints except anorexia and weakness Still requiring 4 L to maintain saturation Denies any other acute symptoms Review of Systems Review of Systems: All systems reviewed and are unremarkable except as noted below Physical Exam Physical Exam: Lying in bed comfortably Constitutional: + ill appearing and average body habitus Eyes: PERRL, conjunctivae normal, anicteric sclerae ENMT: external ear and nose normal, oropharynx normal Neck: trachea midline, no thyromegaly Respiratory: no respiratory distress Auscultation: + diminished lung sounds and + crackles (Minimal bibasilar crackles) Cardiovascular: Rate/Rhythm: regular rate, regular rhythm and + tachycardic Heart Sounds: normal S1 and normal S2; no murmur Extremities: no edema Gastrointestinal (Abdomen): Inspection/Auscultation: normal bowel sounds; abdomen not distended Percussion/Palpation: abdomen soft; abdomen nontender Neurologic: normal touch/pain/proprioception and moves all extremities; no focal motor deficits Lymphatic: no cervical or axillary lymphadenopathy Results & Data Results & Data Vital Signs (Past 12 Hours) Vital Signs Temp Pulse Resp BP Pulse Ox O2 Del Method O2 Flow Rate 08/24/23 10:00 132/69 08/24/23 10:00 98 H 16 93 08/24/23 09:00 91 H 25 H 95 08/24/23 09:00 123/62 08/24/23 08:00 36.6 C 08/24/23 08:00 130/65 08/24/23 08:00 90 23 92 08/24/23 08:00 86 08/24/23 07:00 130/74 08/24/23 07:00 89 25 H 97 Nasal Cannula 4 08/24/23 06:00 89 23 95 08/24/23 05:00 84 24 143/67 H 84 L 08/24/23 04:00 87 24 117/59 L 96 08/24/23 03:04 36.3 C L 08/24/23 03:00 134/51 L 08/24/23 03:00 87 23 92 Laboratory Results Short CBC 08/24/23 Range/Units 04:06 WBC 9.74 (4.8-10.8) K/ul Hgb 8.8 L (12.0-16.0) g/dl Hct 25.8 L (37.0-47.0) % Plt Count 176 (130-400) K/uL BMP 08/24/23 04:06 Sodium 135 L Potassium 3.3 L Chloride 106 Carbon Dioxide 22 BUN 22 Creatinine 1.04 Glucose 131 H Calcium 7.4 L Medications Administered Current Inpatient Medications Acetaminophen (Acetaminophen 325 Mg Tab) 650 mg PO Q4H PRN PRN Reason: Pain or Fever Stop: 09/19/23 13:22 Last Admin: 08/23/23 01:35 Dose: 650 mg Al Hydrox/Mg Hydrox/Simethicone (Aluminum/Magnesium Susp 30 Ml Udc) 15 ml PO Q4H PRN PRN Reason: Dyspepsia Stop: 09/19/23 13:22 Albuterol (Albuterol 0.083% Nebu Soln 3 Ml Vial) 2.5 mg NEB Q6R PRN; Protocol PRN Reason: wheeze, dyspnea Stop: 09/22/23 23:43 Last Admin: 08/24/23 00:20 Dose: 2.5 mg Apixaban (Apixaban 5 Mg Tablet) 5 mg PO BID TRACI Stop: 09/23/23 20:59 Clopidogrel Bisulfate (Clopidogrel Bisulfate 75 Mg Tab) 75 mg PO DAILY TRACI Stop: 09/23/23 08:59 Last Admin: 08/24/23 10:12 Dose: 75 mg Dextrose (Dextrose 50% 50 Ml Syringe) 25 - 50 ml IV UD PRN; Protocol PRN Reason: Hypoglycemia Protocol Stop: 09/22/23 00:23 Last Admin: 08/24/23 03:41 Dose: 25 ml Duloxetine HCl (Duloxetine Hcl 60 Mg Cap) 60 mg PO BID TRACI Stop: 09/22/23 20:59 Last Admin: 08/24/23 09:32 Dose: 60 mg Enoxaparin Sodium (Enoxaparin Inj 40 Mg/0.4 Ml Syr) 40 mg SQ DAILY TRACI Stop: 09/22/23 10:59 Last Admin: 08/24/23 10:12 Dose: 40 mg Fluticasone/Vilanterol (Fluticasone/Vilanterol 100/25mcg 14 Puffs/Inhaler) 1 puffs INH DAILY TRACI Stop: 09/23/23 08:59 Last Admin: 08/24/23 09:32 Dose: 1 puffs Glucagon (Glucagon For Inj 1 Mg Vial) 1 mg SQ UD PRN; Protocol PRN Reason: Hypoglycemia Protocol Stop: 09/22/23 00:23 Glucose (Glucose 10 Tab/Tube) 4 - 8 tab PO UD PRN; Protocol PRN Reason: Hypoglycemia Treatment Stop: 09/22/23 00:23 Glucose (Glucose 40% Gel 15 Gm Tube) 15 - 30 gm PO UD PRN; Protocol PRN Reason: Hypoglycemia Protocol Stop: 09/22/23 00:23 Daptomycin 650 mg/ Syringe 13 mls @ 6.5 mls/min IV Q24H TRACI; Protocol Stop: 09/02/23 10:59 Last Admin: 08/24/23 10:13 Dose: 6.5 mls/min Levothyroxine Sodium (Levothyroxine Sodium 50 Mcg Tablet) 50 mcg PO DAILYBB [facility] Stop: 09/23/23 06:29 Last Admin: 08/24/23 06:01 Dose: 50 mcg Magnesium Hydroxide (Magnesium Hydroxide Susp 30 Ml Udc) 30 ml PO Q12H PRN PRN Reason: Constipation Stop: 09/19/23 13:22 Miscellaneous (Carbohydrates For Hypoglycemia ) 15 - 30 gm PO UD PRN PRN Reason: Hypoglycemia Protocol Stop: 09/22/23 00:23 Last Admin: 08/24/23 03:22 Dose: 15 gm Montelukast Sodium (Montelukast Sodium 10 Mg Tablet) 10 mg PO HS [facility] Stop: 09/22/23 20:59 Last Admin: 08/23/23 20:20 Dose: 10 mg Ondansetron HCl (Ondansetron Inj 2 Mg/Ml 2 Ml Vial) 4 mg IV Q6H PRN PRN Reason: Nausea Stop: 09/19/23 13:22 Pantoprazole Sodium (Pantoprazole 40 Mg Tab) 40 mg PO QAM [facility] Stop: 09/23/23 08:59 Last Admin: 08/24/23 09:32 Dose: 40 mg Polyethylene Glycol (Polyethylene (Miralax) 17 Gm Pack) 17 gm PO DAILY PRN PRN Reason: Constipation Stop: 09/19/23 13:22
[2023-08-24] MEDS: MONTELUKAST SODIUM 10 MG TABLET PO SCH (20:22)
[2023-08-24] MEDS ORDERED: D5W AND 1/2NSS 1,000 ML IV SCH (20:45)
[2023-08-24] MEDS: METOPROLOL SUCC 50MG EXT REL TAB PO SCH (21:10)
[2023-08-24] MEDS: APIXABAN 5 MG TABLET PO SCH (21:10)
[2023-08-24] MEDS: ACETAMINOPHEN 325 MG TAB PO PRN (21:18)
[2023-08-25] MEDS: LEVOTHYROXINE SODIUM 50 MCG TABLET PO SCH (05:32)
[2023-08-25 06:46] LABS: Basophils # (auto) 0.03 K/uL (0.00-0.20); Basophils % (auto) 0.4 %; Eosinophils # (auto) 0.18 K/uL (0.00-0.50); Eosinophils % (auto) 2.7 %; Hematocrit (blood only) 25.5 % (37.0-47.0); Hemoglobin 8.4 g/dl (12.0-16.0); Immature Granulocytes # (auto) 0.11 K/uL (0.01-0.20); Immature Granulocytes % (auto) 1.6 %; Lymphocytes # (auto) 1.13 K/uL (1.20-3.40); Lymphocytes % (auto) 16.9 %; Mean Corpuscular Hemoglobin 34.4 pg (25.0-34.0); Mean Corpuscular Hgb Conc 32.9 g/dL (32.0-36.0); Mean Corpuscular Volume 104.5 fL (80.0-100.0); Mean Platelet Volume 10.4 fL (9.4-12.4); Monocytes % (auto) 10.5 %; Neutrophils # (auto) 4.53 K/uL (1.40-6.50); Neutrophils % (auto) 67.9 %; Platelet Count 161 K/uL (130-400); RDW Standard Deviation 69.2 fL (36.4-46.3); Red Blood Count 2.44 M/uL (4.20-5.40); White Blood Count 6.68 K/ul (4.8-10.8)
[2023-08-25 06:58] LABS: BUN Creatinine Ratio 21.8 (10-20); Calcium 7.3 mg/dl (8.6-10.3); Creatinine Clr Calc Pharmacy 58.6 ml/min; Est GFR (African American) 82.6 ml/min; Est GFR (Non-African American) 71.3 ml/min; Potassium 3.7 mmol/L (3.5-5.1)
[2023-08-25 07:03] LABS: Magnesium 1.9 mg/dl (1.7-2.4); Phosphorus 1.1 mg/dl (2.5-4.9)
[2023-08-25] MEDS ORDERED: POTASSIUM PHOS 3 MMOL/1 ML INFUSION IV STA (07:32)
[2023-08-25] MEDS ORDERED: FUROSEMIDE INJ 20 MG/2 ML VIAL IV ONE (07:33)
[2023-08-25] MEDS ORDERED: POTASSIUM PHOSPHATE 30 MMOL in SODIUM CHLORIDE 0.9% 500 ML IV ONE (08:00)
[2023-08-25] MEDS: APIXABAN 5 MG TABLET PO SCH ×2 (08:40→20:04)
[2023-08-25] MEDS: FLUTICASONE/VILANTEROL 100/25MCG 14 PUFFS/INHALER INH SCH (08:40)
[2023-08-25] MEDS: CLOPIDOGREL BISULFATE 75 MG TAB PO SCH (08:41)
[2023-08-25] MEDS: METOPROLOL SUCC 50MG EXT REL TAB PO SCH ×2 (08:41→20:03)
[2023-08-25] MEDS: DULoxetine HCL 60 MG CAP PO SCH ×2 (08:41→20:14)
[2023-08-25] MEDS: PANTOprazole 40 MG TAB PO SCH (08:41)
[2023-08-25] MEDS: ALBUTEROL 0.083% NEBU SOLN 3 ML VIAL NEB PRN (09:00)
[2023-08-25] MEDS: ACETAMINOPHEN 325 MG TAB PO PRN ×3 (11:18→20:01)
[2023-08-25] MEDS: DAPTOmycin 650 MG in SYRINGE 0 ML IV SCH (11:21)
[2023-08-25] MEDS ORDERED: FUROSEMIDE 40 MG/4 ML VIAL IV ONE (11:36)
--- NOTE | 2023-08-25 13:11 | Hospitalist Progress Note ---
Date of Service August 25, 2023 Assessment & Plan (1) Septic shock: (2) E coli bacteremia: (3) Complicated UTI (urinary tract infection): (4) Acute kidney injury superimposed on CKD: (5) Compensated respiratory acidosis: (6) Influenza A: (7) PAF (paroxysmal atrial fibrillation): (8) HTN, goal below 130/80: (9) Pulmonary embolism: (10) CAD (coronary artery disease): Plan 83 year old female presents to the [facility] via EMS from [facility] after having a complex inpatient hospitalization last month from 07/26/23-08/05/23 for septic shock and pyelonephritis with gram negative rods and E. Coli requiring ICU stabilization and inotropic support with Levo. Tested positive for influenza A while at [facility] as well. She started to become short of breath while at [facility] and they had administered 80 mg of IV Lasix with concerns of a CHF exacerbation. She was placed on BiPAP and route. Numerous Comorbidities including: COPD, HFrEF, HTN, HLD, A-fib, history of PE, history of CVA, hypothyroidism, and GERD. Leukocytosis 15.66, creatinine 1.81, procalcitonin 15.58, magnesium 1.7, UTI with leukocyte esterase 3+, WBC greater than 30, Patient is surprisingly AAOx3 and able to have full meaningful conversation and I do not suspect any encephalopathy. She is able to deny headache, dizziness, lightheadedness, chest pain, palpitations, bowel or bladder changes or recent fa lls. Patient is typically wheelchair-bound but has been working with physical therapy for strengthening. She was lying in her hospital bed with her BiPAP mask on FiO2 50%. We did trial pausing the Levophed however she became hypotensive and her map did not support greater than 65. Patient did tolerate removal of BiPAP mask and maintain saturations greater than 93%. Able to move all extremities and is dry on exam. Per family, patient has not been moving in the right direction since she has been at [facility]; she has decreased appetite and has poor oral fluid intake. Suspect this individual has been over diuresed and with being flu + became hypotensive and SOB. Continued UTI on labs and with visual presentation; continue IV abx taking into consideration renal function. Lengthy conversation with pt and family. Confirmed DNR/DNI. No defib/shock. OK for Bipap and vasopressors. Discussed with ICU Power Systems Engineer Dr. Byrd. Septic Shock: VRE UTI Acute Leukocytosis 15.66, procalcitonin 15.58 Was started on cefepime in the ED; review of last hospitalization goal was to avoid Vanco due to reduced kidney function. Patient was MRSA positive last admission so we will start Zosyn and await blood culture results Lactate 1.4 MRSA screen has been negative Urine culture is growing VRE Blood cultures are negative so far Hypotensive in route and in ED; just weaned off of Levo. Monitor BP and keep maps greater than 65 Started on intravenous Levophed-Levophed has been discontinued Continued with intravenous Zosyn and added IV azithromycin for respiratory coverage Zosyn discontinued and daptomycin added to cover VRE in urine Clinically stable and getting better without any fever and or chills Remains stable and showing more improvement Remains hemodynamically stable without any fever and no chills and white count has improved Influenza A: Acute Tested positive at [facility] per outpatient records; unsure date PCR positive here in ED Supportive treatmentand Tamiflu is not indicated Chest x-ray shows bibasilar infiltration/atelectasis Also on intravenous Zosyn and azithromycin Zosyn has been discontinued and azithromycin will be continued to finish the course to cover possible pneumonia No increasing shortness of breath-requiring 4 L via nasal cannula to maintain saturation Chest x-ray showed pulmonary congestion/multifocal pneumonia Will give a small dose of Lasix for more diuresis Remains little short of breath at rest with wheezing on examination We will discontinue any IV fluid and will give another dose of Lasix of 40 mg IV XIN on CKD: Acute Serum creatinine 1.81; received Lasix 80 mg this a.m. for SOB Baseline creatinine 0.7-0.9 Avoid nephrotoxic agents Received intravenous fluid Creatinine slightly better at 1.73 from 1.81 on admission Kidney function has been improving with a creatinine improved to 1.56 as of 08/22/2023 Creatinine has been improving and it is at 1.29 today 08/23/2023 Creatinine has been normalized HFrEF: SOB: Acute Compensated respiratory acidosis; pH 7.34, CO2 44, HCO3 24 Received Lasix 80 mg via EMS; On Bipap FiO2 50% Trial removal tolerated; on nasal cannula Suspect SOB related to being Flu + Last ECHO 07/26/2023 with reduced EF 35 to 40% and moderate global akinesis Requiring 4 L to maintain saturation Chest x-ray shows mild congestion and will give 20 of Lasix IV x 1 Has been positive balance of 5400 mL Received 20 of intravenous Lasix this morning and is still complaining of some wheezing and minimal shortness of breath at rest We will discontinue intravenous fluid and give another dose of Lasix of 40 mg Anemia No overt bleeding Could be secondary to sepsis Hemoglobin dropped to 6.6 in part complicated by IV fluid and dilution Will be receiving 1 to 2 units of blood transfusion Will monitor CBC-hemoglobin remains stable at 8.4 No more evidence of bleeding and hemoglobin remained stable Atrial Fibrillation: Chronic Takes Eliquis and Metoprolol; continue Eliquis on hold due to low hemoglobin and requiring blood transfusion Short episode of A-fib with RVR and started on intravenous amiodarone Reverted to sinus rhythm and amiodarone has been discontinued Was on beta-hayden before and will restart gradually Beta-hayden has been restarted with 25 mg twice daily Will increase the dose to 50 mg twice daily in a day or 2 when blood pressure is more stable Eliquis has been restarted Remains stable HLD: Chronic Takes atorvastatin; continue Hypothyroidism: Chronic Takes Levothyroxine; continue GERD: Chronic Takes Pantoprazole;continue Disposition: PCP: Dr. Salas Code Status: DNR/DNI VTE Prophylaxis: On Eliquis Started with Lovenox as prophylactic dose from today Likely to start Eliquis in a day or 2 Admission and Anticipated Discharge Date Admission Date: August 20, 2023 Subjective 08/21/2023 The patient was seen and examined in ICU She has been feeling a little better but he still has shortness of breath at rest Noted to be tachycardic as well, denies any chest pain and her palpitation 08/22/2023 The patient was seen and examined in the ICU She has been feeling much better now Denies any significant symptoms except weakness and tiredness Has been off of IV pressors 08/23/2023 The patient was seen and examined in ICU She has been feeling a little better but he still remains very weak and lethargic Has been requiring 4 L of oxygen to maintain saturation Denies any other acute distress or pain 08/24/2023 The patient was seen and examined in ICU She is much better and does not have any significant complaints except anorexia and weakness Still requiring 4 L to maintain saturation Denies any other acute symptoms 08/25/2023 The patient was seen and examined in telemetry unit She has been lethargic but denies any significant symptoms Has been on 2 L of oxygen without any respiratory distress at rest Review of Systems Review of Systems: All systems reviewed and are unremarkable except as noted below Physical Exam Physical Exam: Lying in bed comfortably Constitutional: + ill appearing and average body habitus Eyes: PERRL, conjunctivae normal, anicteric sclerae ENMT: external ear and nose normal, oropharynx normal Neck: trachea midline, no thyromegaly Respiratory: no respiratory distress Auscultation: + diminished lung sounds and + crackles (Minimal bibasilar crackles) Cardiovascular: Rate/Rhythm: regular rate, regular rhythm and + tachycardic Heart Sounds: normal S1 and normal S2; no murmur Extremities: no edema Gastrointestinal (Abdomen): Inspection/Auscultation: normal bowel sounds; abdomen not distended Percussion/Palpation: abdomen soft; abdomen nontender Musculoskeletal: No acute arthritis involving any joint Neurologic: normal touch/pain/proprioception and moves all extremities; no focal motor deficits Lymphatic: no cervical or axillary lymphadenopathy Results & Data Results & Data Vital Signs (Past 12 Hours) Vital Signs Temp Pulse Pulse Pulse Resp BP Pulse Ox 08/25/23 10:41 36.4 C L 96 H 19 129/83 94 08/25/23 10:32 08/25/23 09:00 90 22 97 08/25/23 08:02 36.4 C L 79 17 123/73 96 08/25/23 08:00 81 08/25/23 04:41 36.9 C 85 18 117/71 97 O2 Del Method O2 Flow Rate 08/25/23 10:41 Nasal Cannula 2 08/25/23 10:32 Nasal Cannula 3 08/25/23 09:00 Nasal Cannula 3.5 08/25/23 08:02 Nasal Cannula 4 08/25/23 08:00 08/25/23 04:41 Nasal Cannula 3 Laboratory Results Short CBC 08/25/23 Range/Units 06:20 WBC 6.68 (4.8-10.8) K/ul Hgb 8.4 L (12.0-16.0) g/dl Hct 25.5 L (37.0-47.0) % Plt Count 161 (130-400) K/uL BMP 08/25/23 06:20 Sodium 136 Potassium 3.7 Chloride 108 H Carbon Dioxide 25 BUN 17 Creatinine 0.78 Glucose 85 Calcium 7.3 L Medications Administered Current Inpatient Medications Acetaminophen (Acetaminophen 325 Mg Tab) 650 mg PO Q4H PRN PRN Reason: Pain or Fever Stop: 09/19/23 13:22 Last Admin: 08/25/23 11:18 Dose: 650 mg Al Hydrox/Mg Hydrox/Simethicone (Aluminum/Magnesium Susp 30 Ml Udc) 15 ml PO Q4H PRN PRN Reason: Dyspepsia Stop: 09/19/23 13:22 Albuterol (Albuterol 0.083% Nebu Soln 3 Ml Vial) 2.5 mg NEB Q6R PRN; Protocol PRN Reason: wheeze, dyspnea Stop: 09/22/23 23:43 Last Admin: 08/25/23 09:00 Dose: 2.5 mg Apixaban (Apixaban 5 Mg Tablet) 5 mg PO BID TRACI Stop: 09/23/23 20:59 Last Admin: 08/25/23 08:40 Dose: 5 mg Clopidogrel Bisulfate (Clopidogrel Bisulfate 75 Mg Tab) 75 mg PO DAILY TRACI Stop: 09/23/23 08:59 Last Admin: 08/25/23 08:41 Dose: 75 mg Dextrose (Dextrose 50% 50 Ml Syringe) 25 - 50 ml IV UD PRN; Protocol PRN Reason: Hypoglycemia Protocol Stop: 09/22/23 00:23 Last Admin: 08/24/23 03:41 Dose: 25 ml Duloxetine HCl (Duloxetine Hcl 60 Mg Cap) 60 mg PO BID TRACI Stop: 09/22/23 20:59 Last Admin: 08/25/23 08:41 Dose: 60 mg Fluticasone/Vilanterol (Fluticasone/Vilanterol 100/25mcg 14 Puffs/Inhaler) 1 puffs INH DAILY TRACI Stop: 09/23/23 08:59 Last Admin: 08/25/23 08:40 Dose: 1 puffs Glucagon (Glucagon For Inj 1 Mg Vial) 1 mg SQ UD PRN; Protocol PRN Reason: Hypoglycemia Protocol Stop: 09/22/23 00:23 Glucose (Glucose 10 Tab/Tube) 4 - 8 tab PO UD PRN; Protocol PRN Reason: Hypoglycemia Treatment Stop: 09/22/23 00:23 Glucose (Glucose 40% Gel 15 Gm Tube) 15 - 30 gm PO UD PRN; Protocol PRN Reason: Hypoglycemia Protocol Stop: 09/22/23 00:23 Daptomycin 650 mg/ Syringe 13 mls @ 6.5 mls/min IV Q24H [facility]; Protocol Stop: 09/02/23 10:59 Last Admin: 08/25/23 11:21 Dose: 6.5 mls/min Dextrose/Sodium Chloride (D5w And 1/2nss) 1,000 mls @ 50 mls/hr IV .Q20H TRACI Stop: 08/25/23 16:44 Last Infusion: 08/25/23 12:01 Dose: Infused Potassium Phosphate 30 mmol/ (Sodium Chloride) 510 mls @ 88 mls/hr IV 0800 ONE Stop: 08/25/23 13:47 Last Admin: 08/25/23 08:39 Dose: 88 mls/hr Levothyroxine Sodium (Levothyroxine Sodium 50 Mcg Tablet) 50 mcg PO DAILYBB [facility] Stop: 09/23/23 06:29 Last Admin: 08/25/23 05:32 Dose: 50 mcg Magnesium Hydroxide (Magnesium Hydroxide Susp 30 Ml Udc) 30 ml PO Q12H PRN PRN Reason: Constipation Stop: 09/19/23 13:22 Metoprolol Succinate (Metoprolol Succ 50mg Ext Rel Tab) 50 mg PO BID [facility] Stop: 09/23/23 20:59 Last Admin: 08/25/23 08:41 Dose: 50 mg Miscellaneous (Carbohydrates For Hypoglycemia ) 15 - 30 gm PO UD PRN PRN Reason: Hypoglycemia Protocol Stop: 09/22/23 00:23 Last Admin: 08/24/23 03:22 Dose: 15 gm Montelukast Sodium (Montelukast Sodium 10 Mg Tablet) 10 mg PO HS [facility] Stop: 09/22/23 20:59 Last Admin: 08/24/23 20:22 Dose: 10 mg Ondansetron HCl (Ondansetron Inj 2 Mg/Ml 2 Ml Vial) 4 mg IV Q6H PRN PRN Reason: Nausea Stop: 09/19/23 13:22 Pantoprazole Sodium (Pantoprazole 40 Mg Tab) 40 mg PO QAM TRACI Stop: 09/23/23 08:59 Last Admin: 08/25/23 08:41 Dose: 40 mg Polyethylene Glycol (Polyethylene (Miralax) 17 Gm Pack) 17 gm PO DAILY PRN PRN Reason: Constipation Stop: 09/19/23 13:22
[2023-08-25] MEDS: DICLOFENAC SOD 1% GEL 100 GM TUBE EXT SCH ×2 (14:45→20:02)
[2023-08-25 15:43] LABS: BUN Creatinine Ratio 22.7 (10-20); Calcium 7.4 mg/dl (8.6-10.3); Creatinine Clr Calc Pharmacy 60.9 ml/min; Est GFR (African American) 86.6 ml/min; Est GFR (Non-African American) 74.8 ml/min; Potassium 4.1 mmol/L (3.5-5.1)
[2023-08-25] MEDS ORDERED: traMADol HCL 50 MG TABLET PO STA (16:28)
[2023-08-25] MEDS: MONTELUKAST SODIUM 10 MG TABLET PO SCH (20:14)
[2023-08-25] MEDS ORDERED: DICLOFENAC SOD 1% GEL 100 GM TUBE EXT SCH (21:00)
[2023-08-26] MEDS: ACETAMINOPHEN 325 MG TAB PO PRN ×4 (00:24→22:22)
[2023-08-26] MEDS: LEVOTHYROXINE SODIUM 50 MCG TABLET PO SCH (06:06)
[2023-08-26] MEDS: ONDANSETRON INJ 2 MG/ML 2 ML VIAL IV PRN ×2 (08:12→15:20)
[2023-08-26 08:50] LABS: BUN Creatinine Ratio 21.5 (10-20); Calcium 7.2 mg/dl (8.6-10.3); Creatinine Clr Calc Pharmacy 57.8 ml/min; Est GFR (African American) 81.4 ml/min; Est GFR (Non-African American) 70.2 ml/min; Magnesium 1.6 mg/dl (1.7-2.4); Phosphorus 1.9 mg/dl (2.5-4.9); Potassium 3.6 mmol/L (3.5-5.1)
[2023-08-26] MEDS: CLOPIDOGREL BISULFATE 75 MG TAB PO SCH (09:34)
[2023-08-26] MEDS: APIXABAN 5 MG TABLET PO SCH ×2 (09:34→20:30)
[2023-08-26] MEDS: DICLOFENAC SOD 1% GEL 100 GM TUBE EXT SCH ×2 (09:34→20:31)
[2023-08-26] MEDS: DULoxetine HCL 60 MG CAP PO SCH ×2 (09:35→20:30)
[2023-08-26] MEDS: FLUTICASONE/VILANTEROL 100/25MCG 14 PUFFS/INHALER INH SCH (09:35)
[2023-08-26] MEDS: METOPROLOL SUCC 50MG EXT REL TAB PO SCH ×2 (09:36→20:30)
[2023-08-26] MEDS: PANTOprazole 40 MG TAB PO SCH (09:36)
[2023-08-26] MEDS: DAPTOmycin 650 MG in SYRINGE 0 ML IV SCH (11:28)
[2023-08-26] MEDS ORDERED: POTASSIUM PHOS 3 MMOL/1 ML INFUSION IV STA (14:18)
[2023-08-26] MEDS ORDERED: POTASSIUM PHOSPHATE 24 MMOL in SODIUM CHLORIDE 0.9% 500 ML IV ONE (14:30)
--- NOTE | 2023-08-26 14:34 | Hospitalist Progress Note ---
Date of Service August 26, 2023 Assessment & Plan (1) Septic shock: (2) E coli bacteremia: (3) Complicated UTI (urinary tract infection): (4) Acute kidney injury superimposed on CKD: (5) Compensated respiratory acidosis: (6) Influenza A: (7) PAF (paroxysmal atrial fibrillation): (8) HTN, goal below 130/80: (9) Pulmonary embolism: (10) CAD (coronary artery disease): Plan 83 year old female presents to the [facility] via EMS from [facility] after having a complex inpatient hospitalization last month from 07/26/23-08/05/23 for septic shock and pyelonephritis with gram negative rods and E. Coli requiring ICU stabilization and inotropic support with Levo. Tested positive for influenza A while at [facility] as well. She started to become short of breath while at [facility] and they had administered 80 mg of IV Lasix with concerns of a CHF exacerbation. She was placed on BiPAP and route. Numerous Comorbidities including: COPD, HFrEF, HTN, HLD, A-fib, history of PE, history of CVA, hypothyroidism, and GERD. Leukocytosis 15.66, creatinine 1.81, procalcitonin 15.58, magnesium 1.7, UTI with leukocyte esterase 3+, WBC greater than 30, Patient is surprisingly AAOx3 and able to have full meaningful conversation and I do not suspect any encephalopathy. She is able to deny headache, dizziness, lightheadedness, chest pain, palpitations, bowel or bladder changes or recent fa lls. Patient is typically wheelchair-bound but has been working with physical therapy for strengthening. She was lying in her hospital bed with her BiPAP mask on FiO2 50%. We did trial pausing the Levophed however she became hypotensive and her map did not support greater than 65. Patient did tolerate removal of BiPAP mask and maintain saturations greater than 93%. Able to move all extremities and is dry on exam. Per family, patient has not been moving in the right direction since she has been at [facility]; she has decreased appetite and has poor oral fluid intake. Suspect this individual has been over diuresed and with being flu + became hypotensive and SOB. Continued UTI on labs and with visual presentation; continue IV abx taking into consideration renal function. Lengthy conversation with pt and family. Confirmed DNR/DNI. No defib/shock. OK for Bipap and vasopressors. Discussed with ICU [employer] Machine Operator Dr. Byrd. Septic Shock: VRE UTI Acute Leukocytosis 15.66, procalcitonin 15.58 Was started on cefepime in the ED; review of last hospitalization goal was to avoid Vanco due to reduced kidney function. Patient was MRSA positive last admission so we will start Zosyn and await blood culture results Lactate 1.4 MRSA screen has been negative Urine culture is growing VRE Blood cultures are negative so far Hypotensive in route and in ED; just weaned off of Levo. Monitor BP and keep maps greater than 65 Started on intravenous Levophed-Levophed has been discontinued Continued with intravenous Zosyn and added IV azithromycin for respiratory coverage Zosyn discontinued and daptomycin added to cover VRE in urine Clinically stable and getting better without any fever and or chills Remains stable and showing more improvement Remains hemodynamically stable without any fever and no chills and white count has improved Remains very weak and lethargic Electrolyte imbalance Has hypomagnesemia and hypophosphatemia Is being displaced for the last 2 days without much correction Will give more supplement Monitor electrolytes Influenza A: Acute Tested positive at [facility] per outpatient records; unsure date PCR positive here in ED Supportive treatmentand Tamiflu is not indicated Chest x-ray shows bibasilar infiltration/atelectasis Also on intravenous Zosyn and azithromycin Zosyn has been discontinued and azithromycin will be continued to finish the course to cover possible pneumonia No increasing shortness of breath-requiring 4 L via nasal cannula to maintain saturation Chest x-ray showed pulmonary congestion/multifocal pneumonia Will give a small dose of Lasix for more diuresis Remains little short of breath at rest with wheezing on examination We will discontinue any IV fluid and will give another dose of Lasix of 40 mg IV No shortness of breath at rest XIN on CKD: Acute Serum creatinine 1.81; received Lasix 80 mg this a.m. for SOB Baseline creatinine 0.7-0.9 Avoid nephrotoxic agents Received intravenous fluid Creatinine slightly better at 1.73 from 1.81 on admission Kidney function has been improving with a creatinine improved to 1.56 as of 08/22/2023 Creatinine has been improving and it is at 1.29 today 08/23/2023 Creatinine has been normalized HFrEF: SOB: Acute Compensated respiratory acidosis; pH 7.34, CO2 44, HCO3 24 Received Lasix 80 mg via EMS; On Bipap FiO2 50% Trial removal tolerated; on nasal cannula Suspect SOB related to being Flu + Last ECHO 07/26/2023 with reduced EF 35 to 40% and moderate global akinesis Requiring 4 L to maintain saturation Chest x-ray shows mild congestion and will give 20 of Lasix IV x 1 Has been positive balance of 5400 mL Received 20 of intravenous Lasix this morning and is still complaining of some wheezing and minimal shortness of breath at rest We will discontinue intravenous fluid and give another dose of Lasix of 40 mg Has not been getting any more intravenous fluid Anemia No overt bleeding Could be secondary to sepsis Hemoglobin dropped to 6.6 in part complicated by IV fluid and dilution Will be receiving 1 to 2 units of blood transfusion Will monitor CBC-hemoglobin remains stable at 8.4 No more evidence of bleeding and hemoglobin remained stable Atrial Fibrillation: Chronic Takes Eliquis and Metoprolol; continue Eliquis on hold due to low hemoglobin and requiring blood transfusion Short episode of A-fib with RVR and started on intravenous amiodarone Reverted to sinus rhythm and amiodarone has been discontinued Was on beta-hayden before and will restart gradually Beta-hayden has been restarted with 25 mg twice daily Will increase the dose to 50 mg twice daily in a day or 2 when blood pressure is more stable Eliquis has been restarted Remains stable HLD: Chronic Takes atorvastatin; continue Hypothyroidism: Chronic Takes Levothyroxine; continue GERD: Chronic Takes Pantoprazole;continue Disposition: PCP: Dr. Salas Code Status: DNR/DNI VTE Prophylaxis: On Eliquis Started with Lovenox as prophylactic dose from today Likely to start Eliquis in a day or 2 We will get PT and OT evaluation Admission and Anticipated Discharge Date Admission Date: August 20, 2023 Subjective 08/21/2023 The patient was seen and examined in ICU She has been feeling a little better but he still has shortness of breath at rest Noted to be tachycardic as well, denies any chest pain and her palpitation 08/22/2023 The patient was seen and examined in the ICU She has been feeling much better now Denies any significant symptoms except weakness and tiredness Has been off of IV pressors 08/23/2023 The patient was seen and examined in ICU She has been feeling a little better but he still remains very weak and lethargic Has been requiring 4 L of oxygen to maintain saturation Denies any other acute distress or pain 08/24/2023 The patient was seen and examined in ICU She is much better and does not have any significant complaints except anorexia and weakness Still requiring 4 L to maintain saturation Denies any other acute symptoms 08/25/2023 The patient was seen and examined in telemetry unit She has been lethargic but denies any significant symptoms Has been on 2 L of oxygen without any respiratory distress at rest 08/26/2023 The patient was seen and examined in telemetry unit She has been very weak and lethargic Denies any more shortness of breath at rest Denies any pain Remains hemodynamically stable Review of Systems Review of Systems: All systems reviewed and are unremarkable except as noted below Physical Exam Physical Exam: Lying in bed comfortably Constitutional: + ill appearing and average body habitus Eyes: PERRL, conjunctivae normal, anicteric sclerae ENMT: external ear and nose normal, oropharynx normal Neck: trachea midline, no thyromegaly Respiratory: no respiratory distress Auscultation: + diminished lung sounds and + crackles (Minimal bibasilar crackles) Cardiovascular: Rate/Rhythm: regular rate, regular rhythm and + tachycardic Heart Sounds: normal S1 and normal S2; no murmur Extremities: no edema Gastrointestinal (Abdomen): Inspection/Auscultation: normal bowel sounds; abdomen not distended Percussion/Palpation: abdomen soft; abdomen nontender Neurologic: normal touch/pain/proprioception and moves all extremities; no focal motor deficits Lymphatic: no cervical or axillary lymphadenopathy Results & Data Results & Data Vital Signs (Past 12 Hours) Vital Signs Temp Pulse Pulse Resp BP BP Pulse Ox 08/26/23 10:37 36.8 C 85 19 119/69 96 08/26/23 09:57 08/26/23 08:12 36.8 C 86 20 115/67 96 08/26/23 08:00 84 08/26/23 02:40 36.3 C L 89 18 119/73 95 O2 Del Method O2 Flow Rate 08/26/23 10:37 Nasal Cannula 2 08/26/23 09:57 Nasal Cannula 3 08/26/23 08:12 Nasal Cannula 2 08/26/23 08:00 08/26/23 02:40 Nasal Cannula 3 Laboratory Results BMP 08/25/23 08/26/23 15:00 07:43 Sodium 136 136 Potassium 4.1 3.6 Chloride 106 106 Carbon Dioxide 23 24 BUN 17 17 Creatinine 0.75 0.79 Glucose 90 72 Calcium 7.4 L 7.2 L Medications Administered Current Inpatient Medications Acetaminophen (Acetaminophen 325 Mg Tab) 650 mg PO Q4H PRN PRN Reason: Pain or Fever Stop: 09/19/23 13:22 Last Admin: 08/26/23 13:42 Dose: 650 mg Al Hydrox/Mg Hydrox/Simethicone (Aluminum/Magnesium Susp 30 Ml Udc) 15 ml PO Q4H PRN PRN Reason: Dyspepsia Stop: 09/19/23 13:22 Albuterol (Albuterol 0.083% Nebu Soln 3 Ml Vial) 2.5 mg NEB Q6R PRN; Protocol PRN Reason: wheeze, dyspnea Stop: 09/22/23 23:43 Last Admin: 08/25/23 09:00 Dose: 2.5 mg Apixaban (Apixaban 5 Mg Tablet) 5 mg PO BID [facility] Stop: 09/23/23 20:59 Last Admin: 08/26/23 09:34 Dose: 5 mg Clopidogrel Bisulfate (Clopidogrel Bisulfate 75 Mg Tab) 75 mg PO DAILY TRACI Stop: 09/23/23 08:59 Last Admin: 08/26/23 09:34 Dose: 75 mg Dextrose (Dextrose 50% 50 Ml Syringe) 25 - 50 ml IV UD PRN; Protocol PRN Reason: Hypoglycemia Protocol Stop: 09/22/23 00:23 Last Admin: 08/24/23 03:41 Dose: 25 ml Diclofenac Sodium (Diclofenac Sod 1% Gel 100 Gm Tube) 4 gm EXT BID TRACI; Protocol Stop: 09/24/23 14:29 Last Admin: 08/26/23 09:34 Dose: 4 gm Duloxetine HCl (Duloxetine Hcl 60 Mg Cap) 60 mg PO BID [facility] Stop: 09/22/23 20:59 Last Admin: 08/26/23 09:35 Dose: 60 mg Fluticasone/Vilanterol (Fluticasone/Vilanterol 100/25mcg 14 Puffs/Inhaler) 1 puffs INH DAILY TRACI Stop: 09/23/23 08:59 Last Admin: 08/26/23 09:35 Dose: 1 puffs Glucagon (Glucagon For Inj 1 Mg Vial) 1 mg SQ UD PRN; Protocol PRN Reason: Hypoglycemia Protocol Stop: 09/22/23 00:23 Glucose (Glucose 10 Tab/Tube) 4 - 8 tab PO UD PRN; Protocol PRN Reason: Hypoglycemia Treatment Stop: 09/22/23 00:23 Glucose (Glucose 40% Gel 15 Gm Tube) 15 - 30 gm PO UD PRN; Protocol PRN Reason: Hypoglycemia Protocol Stop: 09/22/23 00:23 Daptomycin 650 mg/ Syringe 13 mls @ 6.5 mls/min IV Q24H TRACI; Protocol Stop: 09/02/23 10:59 Last Admin: 08/26/23 11:28 Dose: 6.5 mls/min Magnesium Sulfate/Dextrose (Magnesium Sulfate / D5w) 1 gm in 100 mls @ 50 mls/hr IV Q2H TRACI Stop: 08/26/23 18:29 Potassium Phosphate 24 mmol/ (Sodium Chloride) 508 mls @ 88 mls/hr IV ONE ONE Stop: 08/26/23 20:16 Levothyroxine Sodium (Levothyroxine Sodium 50 Mcg Tablet) 50 mcg PO DAILYBB TRACI Stop: 09/23/23 06:29 Last Admin: 08/26/23 06:06 Dose: 50 mcg Magnesium Hydroxide (Magnesium Hydroxide Susp 30 Ml Udc) 30 ml PO Q12H PRN PRN Reason: Constipation Stop: 09/19/23 13:22 Metoprolol Succinate (Metoprolol Succ 50mg Ext Rel Tab) 50 mg PO BID TRACI Stop: 09/23/23 20:59 Last Admin: 08/26/23 09:36 Dose: 50 mg Miscellaneous (Carbohydrates For Hypoglycemia ) 15 - 30 gm PO UD PRN PRN Reason: Hypoglycemia Protocol Stop: 09/22/23 00:23 Last Admin: 08/24/23 03:22 Dose: 15 gm Montelukast Sodium (Montelukast Sodium 10 Mg Tablet) 10 mg PO HS [facility] Stop: 09/22/23 20:59 Last Admin: 08/25/23 20:14 Dose: 10 mg Ondansetron HCl (Ondansetron Inj 2 Mg/Ml 2 Ml Vial) 4 mg IV Q6H PRN PRN Reason: Nausea Stop: 09/19/23 13:22 Last Admin: 08/26/23 08:12 Dose: 4 mg Pantoprazole Sodium (Pantoprazole 40 Mg Tab) 40 mg PO QAM [facility] Stop: 09/23/23 08:59 Last Admin: 08/26/23 09:36 Dose: 40 mg Polyethylene Glycol (Polyethylene (Miralax) 17 Gm Pack) 17 gm PO DAILY PRN PRN Reason: Constipation Stop: 09/19/23 13:22
[2023-08-26] MEDS: MAGNESIUM SULFATE / D5W 1 GM/100 ML BAG IV SCH ×2 (15:06→16:59)
[2023-08-26] MEDS: traMADol HCL 50 MG TABLET PO PRN (17:50)
[2023-08-26] MEDS: MONTELUKAST SODIUM 10 MG TABLET PO SCH (20:31)
[2023-08-27] MEDS: CARBOHYDRATES FOR HYPOGLYCEMIA PO PRN (01:49)
[2023-08-27] MEDS: ACETAMINOPHEN 325 MG TAB PO PRN (05:35)
[2023-08-27] MEDS: LEVOTHYROXINE SODIUM 50 MCG TABLET PO SCH (05:41)
[2023-08-27 07:38] LABS: Basophils # (auto) 0.03 K/uL (0.00-0.20); Basophils % (auto) 0.5 %; Eosinophils # (auto) 0.25 K/uL (0.00-0.50); Hematocrit (blood only) 25.3 % (37.0-47.0); Hemoglobin 8.3 g/dl (12.0-16.0); Immature Granulocytes # (auto) 0.09 K/uL (0.01-0.20); Immature Granulocytes % (auto) 1.5 %; Lymphocytes # (auto) 0.99 K/uL (1.20-3.40); Mean Corpuscular Hemoglobin 33.5 pg (25.0-34.0); Mean Corpuscular Hgb Conc 32.8 g/dL (32.0-36.0); Mean Platelet Volume 10.7 fL (9.4-12.4); Monocytes # (auto) 0.48 K/uL (0.11-0.59); Monocytes % (auto) 7.8 %; Neutrophils # (auto) 4.34 K/uL (1.40-6.50); Neutrophils % (auto) 70.2 %; Platelet Count 180 K/uL (130-400); RDW Coefficient of Variation 16.9 % (11.5-14.5); RDW Standard Deviation 63.7 fL (36.4-46.3); Red Blood Count 2.48 M/uL (4.20-5.40); White Blood Count 6.18 K/ul (4.8-10.8)
[2023-08-27 07:58] LABS: BUN Creatinine Ratio 21.3 (10-20); Calcium 6.9 mg/dl (8.6-10.3); Creatinine Clr Calc Pharmacy 57.5 ml/min; Est GFR (African American) 80.1 ml/min; Est GFR (Non-African American) 69.1 ml/min; Phosphorus 2.9 mg/dl (2.5-4.9); Potassium 4.2 mmol/L (3.5-5.1)
[2023-08-27] MEDS: FLUTICASONE/VILANTEROL 100/25MCG 14 PUFFS/INHALER INH SCH (09:38)
[2023-08-27] MEDS: DICLOFENAC SOD 1% GEL 100 GM TUBE EXT SCH ×2 (09:38→20:02)
[2023-08-27] MEDS: APIXABAN 5 MG TABLET PO SCH ×2 (09:38→20:03)
[2023-08-27] MEDS: DULoxetine HCL 60 MG CAP PO SCH ×2 (09:39→20:02)
[2023-08-27] MEDS: METOPROLOL SUCC 50MG EXT REL TAB PO SCH ×2 (09:40→20:02)
[2023-08-27] MEDS: PANTOprazole 40 MG TAB PO SCH (09:42)
[2023-08-27] MEDS: CLOPIDOGREL BISULFATE 75 MG TAB PO SCH (09:42)
[2023-08-27] MEDS: DAPTOmycin 650 MG in SYRINGE 0 ML IV SCH (12:18)
[2023-08-27] MEDS ORDERED: ACETAMINOPHEN 1,000 MG/100 ML VIAL IV PRN (13:06)
[2023-08-27] MEDS ORDERED: D5W AND NSS 1,000 ML IV SCH (13:15)
--- NOTE | 2023-08-27 15:24 | Hospitalist Progress Note ---
Date of Service August 27, 2023 Assessment & Plan (1) Septic shock: (2) E coli bacteremia: (3) Complicated UTI (urinary tract infection): (4) Acute kidney injury superimposed on CKD: (5) Compensated respiratory acidosis: (6) Influenza A: (7) PAF (paroxysmal atrial fibrillation): (8) HTN, goal below 130/80: (9) Pulmonary embolism: (10) CAD (coronary artery disease): Plan 83 year old female presents to the [facility] via EMS from [facility] after having a complex inpatient hospitalization last month from 07/26/23-08/05/23 for septic shock and pyelonephritis with gram negative rods and E. Coli requiring ICU stabilization and inotropic support with Levo. Tested positive for influenza A while at [facility] as well. She started to become short of breath while at [facility] and they had administered 80 mg of IV Lasix with concerns of a CHF exacerbation. She was placed on BiPAP and route. Numerous Comorbidities including: COPD, HFrEF, HTN, HLD, A-fib, history of PE, history of CVA, hypothyroidism, and GERD. Leukocytosis 15.66, creatinine 1.81, procalcitonin 15.58, magnesium 1.7, UTI with leukocyte esterase 3+, WBC greater than 30, Patient is surprisingly AAOx3 and able to have full meaningful conversation and I do not suspect any encephalopathy. She is able to deny headache, dizziness, lightheadedness, chest pain, palpitations, bowel or bladder changes or recent fa lls. Patient is typically wheelchair-bound but has been working with physical therapy for strengthening. She was lying in her hospital bed with her BiPAP mask on FiO2 50%. We did trial pausing the Levophed however she became hypotensive and her map did not support greater than 65. Patient did tolerate removal of BiPAP mask and maintain saturations greater than 93%. Able to move all extremities and is dry on exam. Per family, patient has not been moving in the right direction since she has been at [facility]; she has decreased appetite and has poor oral fluid intake. Suspect this individual has been over diuresed and with being flu + became hypotensive and SOB. Continued UTI on labs and with visual presentation; continue IV abx taking into consideration renal function. Lengthy conversation with pt and family. Confirmed DNR/DNI. No defib/shock. OK for Bipap and vasopressors. Discussed with ICU Associate [employer] Dr. Byrd. Septic Shock: VRE UTI Acute Leukocytosis 15.66, procalcitonin 15.58 Was started on cefepime in the ED; review of last hospitalization goal was to avoid Vanco due to reduced kidney function. Patient was MRSA positive last admission so we will start Zosyn and await blood culture results Lactate 1.4 MRSA screen has been negative Urine culture is growing VRE Blood cultures are negative so far Hypotensive in route and in ED; just weaned off of Levo. Monitor BP and keep maps greater than 65 Started on intravenous Levophed-Levophed has been discontinued Continued with intravenous Zosyn and added IV azithromycin for respiratory coverage Zosyn discontinued and daptomycin added to cover VRE in urine Clinically stable and getting better without any fever and or chills Remains stable and showing more improvement Remains hemodynamically stable without any fever and no chills and white count has improved Remains very weak and [id number] to start physical therapy Strongly advised to eat and drink more Sugar is noted to be low this morning around 50s and started on small dose of intravenous dextrose with normal saline Updated the family members about very minimal improvement and explained the reasons for that She will have repeat blood cultures and urine culture to make sure there is no infection Electrolyte imbalance Has hypomagnesemia and hypophosphatemia Is being displaced for the last 2 days without much correction Will give more supplement Electrolytes are normal Influenza A: Acute Tested positive at [facility] per outpatient records; unsure date PCR positive here in ED Supportive treatmentand Tamiflu is not indicated Chest x-ray shows bibasilar infiltration/atelectasis Also on intravenous Zosyn and azithromycin Zosyn has been discontinued and azithromycin will be continued to finish the course to cover possible pneumonia No increasing shortness of breath-requiring 4 L via nasal cannula to maintain saturation Chest x-ray showed pulmonary congestion/multifocal pneumonia Will give a small dose of Lasix for more diuresis Remains little short of breath at rest with wheezing on examination We will discontinue any IV fluid and will give another dose of Lasix of 40 mg IV No shortness of breath at rest XIN on CKD: Acute Serum creatinine 1.81; received Lasix 80 mg this a.m. for SOB Baseline creatinine 0.7-0.9 Avoid nephrotoxic agents Received intravenous fluid Creatinine slightly better at 1.73 from 1.81 on admission Kidney function has been improving with a creatinine improved to 1.56 as of 08/22/2023 Creatinine has been improving and it is at 1.29 today 08/23/2023 Creatinine has been normalized Strongly advised to drink more fluid HFrEF: SOB: Acute Compensated respiratory acidosis; pH 7.34, CO2 44, HCO3 24 Received Lasix 80 mg via EMS; On Bipap FiO2 50% Trial removal tolerated; on nasal cannula Suspect SOB related to being Flu + Last ECHO 07/26/2023 with reduced EF 35 to 40% and moderate global akinesis Requiring 4 L to maintain saturation Chest x-ray shows mild congestion and will give 20 of Lasix IV x 1 Has been positive balance of 5400 mL Received 20 of intravenous Lasix this morning and is still complaining of some wheezing and minimal shortness of breath at rest We will discontinue intravenous fluid and give another dose of Lasix of 40 mg Cautious amount of intravenous dextrose and normal saline given to improve blood glucose level Anemia No overt bleeding Could be secondary to sepsis Hemoglobin dropped to 6.6 in part complicated by IV fluid and dilution Will be receiving 1 to 2 units of blood transfusion Will monitor CBC-hemoglobin remains stable at 8.4 No more evidence of bleeding and hemoglobin remained stable Atrial Fibrillation: Chronic Takes Eliquis and Metoprolol; continue Eliquis on hold due to low hemoglobin and requiring blood transfusion Short episode of A-fib with RVR and started on intravenous amiodarone Reverted to sinus rhythm and amiodarone has been discontinued Was on beta-hayden before and will restart gradually Beta-hayden has been restarted with 25 mg twice daily Will increase the dose to 50 mg twice daily in a day or 2 when blood pressure is more stable Eliquis has been restarted Remains stable HLD: Chronic Takes atorvastatin; continue Hypothyroidism: Chronic Takes Levothyroxine; continue GERD: Chronic Takes Pantoprazole;continue Disposition: PCP: Dr. Salas Code Status: DNR/DNI VTE Prophylaxis: On Eliquis Started with Lovenox as prophylactic dose from today Likely to start Eliquis in a day or 2 We will get PT and OT evaluation Updated the family members- and the granddaughter Answered all of their questions Very slow improvement We will make sure there is no remaining infection in urine and/or blood Admission and Anticipated Discharge Date Admission Date: August 20, 2023 Subjective 08/21/2023 The patient was seen and examined in ICU She has been feeling a little better but he still has shortness of breath at rest Noted to be tachycardic as well, denies any chest pain and her palpitation 08/22/2023 The patient was seen and examined in the ICU She has been feeling much better now Denies any significant symptoms except weakness and tiredness Has been off of IV pressors 08/23/2023 The patient was seen and examined in ICU She has been feeling a little better but he still remains very weak and lethargic Has been requiring 4 L of oxygen to maintain saturation Denies any other acute distress or pain 08/24/2023 The patient was seen and examined in ICU She is much better and does not have any significant complaints except anorexia and weakness Still requiring 4 L to maintain saturation Denies any other acute symptoms 08/25/2023 The patient was seen and examined in telemetry unit She has been lethargic but denies any significant symptoms Has been on 2 L of oxygen without any respiratory distress at rest 08/26/2023 The patient was seen and examined in telemetry unit She has been very weak and lethargic Denies any more shortness of breath at rest Denies any pain Remains hemodynamically stable 08/27/2023 The patient was seen and examined in telemetry unit in presence of the family members She remains very lethargic and has not been eating and drinking Blood sugar has been low mainly due to not eating and complicated by ongoing infection Complains back pain No other acute distress Review of Systems Review of Systems: All systems reviewed and are unremarkable except as noted below Physical Exam Physical Exam: Lying in bed comfortably Constitutional: + ill appearing and average body habitus Eyes: PERRL, conjunctivae normal, anicteric sclerae ENMT: external ear and nose normal, oropharynx normal Neck: trachea midline, no thyromegaly Respiratory: no respiratory distress Auscultation: + diminished lung sounds and + crackles (Minimal bibasilar crackles) Cardiovascular: Rate/Rhythm: regular rate, regular rhythm and + tachycardic Heart Sounds: normal S1 and normal S2; no murmur Extremities: no edema Gastrointestinal (Abdomen): Inspection/Auscultation: normal bowel sounds; abdomen not distended Percussion/Palpation: abdomen soft; abdomen nontender Musculoskeletal: No acute arthritis involving any of the joint Neurologic: normal touch/pain/proprioception and moves all extremities; no focal motor deficits Lymphatic: no cervical or axillary lymphadenopathy Results & Data Results & Data Vital Signs (Past 12 Hours) Vital Signs Temp Pulse Pulse Resp BP Pulse Ox Pulse Ox 08/27/23 12:55 93 08/27/23 10:45 36.5 C 81 17 125/69 95 08/27/23 08:00 08/27/23 07:58 36.2 C L 77 17 107/65 97 08/27/23 07:45 72 O2 Del Method O2 Flow Rate O2 Flow Rate 08/27/23 12:55 2 08/27/23 10:45 Nasal Cannula 2 08/27/23 08:00 Nasal Cannula 08/27/23 07:58 Nasal Cannula 2 08/27/23 07:45 Laboratory Results Short CBC 08/27/23 Range/Units 06:54 WBC 6.18 (4.8-10.8) K/ul Hgb 8.3 L (12.0-16.0) g/dl Hct 25.3 L (37.0-47.0) % Plt Count 180 (130-400) K/uL BMP 08/27/23 06:54 Sodium 137 Potassium 4.2 Chloride 108 H Carbon Dioxide 24 BUN 17 Creatinine 0.80 Glucose 61 L Calcium 6.9 L Cardiac Enzymes 08/27/23 Range/Units 06:54 Total Creatine Kinase 14 L (26-192) U/L Medications Administered Current Inpatient Medications Al Hydrox/Mg Hydrox/Simethicone (Aluminum/Magnesium Susp 30 Ml Udc) 15 ml PO Q4H PRN PRN Reason: Dyspepsia Stop: 09/19/23 13:22 Albuterol (Albuterol 0.083% Nebu Soln 3 Ml Vial) 2.5 mg NEB Q6R PRN; Protocol PRN Reason: wheeze, dyspnea Stop: 09/22/23 23:43 Last Admin: 08/25/23 09:00 Dose: 2.5 mg Apixaban (Apixaban 5 Mg Tablet) 5 mg PO BID [facility] Stop: 09/23/23 20:59 Last Admin: 08/27/23 09:38 Dose: 5 mg Clopidogrel Bisulfate (Clopidogrel Bisulfate 75 Mg Tab) 75 mg PO DAILY [facility] Stop: 09/23/23 08:59 Last Admin: 08/27/23 09:42 Dose: 75 mg Dextrose (Dextrose 50% 50 Ml Syringe) 25 - 50 ml IV UD PRN; Protocol PRN Reason: Hypoglycemia Protocol Stop: 09/22/23 00:23 Last Admin: 08/24/23 03:41 Dose: 25 ml Diclofenac Sodium (Diclofenac Sod 1% Gel 100 Gm Tube) 4 gm EXT BID [facility]; Protocol Stop: 09/24/23 14:29 Last Admin: 08/27/23 09:38 Dose: 4 gm Duloxetine HCl (Duloxetine Hcl 60 Mg Cap) 60 mg PO BID [facility] Stop: 09/22/23 20:59 Last Admin: 08/27/23 09:39 Dose: 60 mg Fluticasone/Vilanterol (Fluticasone/Vilanterol 100/25mcg 14 Puffs/Inhaler) 1 puffs INH DAILY [facility] Stop: 09/23/23 08:59 Last Admin: 08/27/23 09:38 Dose: 1 puffs Glucagon (Glucagon For Inj 1 Mg Vial) 1 mg SQ UD PRN; Protocol PRN Reason: Hypoglycemia Protocol Stop: 09/22/23 00:23 Glucose (Glucose 10 Tab/Tube) 4 - 8 tab PO UD PRN; Protocol PRN Reason: Hypoglycemia Treatment Stop: 09/22/23 00:23 Glucose (Glucose 40% Gel 15 Gm Tube) 15 - 30 gm PO UD PRN; Protocol PRN Reason: Hypoglycemia Protocol Stop: 09/22/23 00:23 Daptomycin 650 mg/ Syringe 13 mls @ 6.5 mls/min IV Q24H [facility]; Protocol Stop: 09/02/23 10:59 Last Admin: 08/27/23 12:18 Dose: 6.5 mls/min Acetaminophen (Ofirmev) 1,000 mg in 100 mls @ 400 mls/hr IV Q8H PRN PRN Reason: Pain Stop: 08/30/23 13:05 Dextrose/Sodium Chloride (D5w And Nss) 1,000 mls @ 80 mls/hr IV .[id number] [facility] Stop: 08/28/23 01:44 Last Admin: 08/27/23 13:47 Dose: 80 mls/hr Levothyroxine Sodium (Levothyroxine Sodium 50 Mcg Tablet) 50 mcg PO DAILYBB [facility] Stop: 09/23/23 06:29 Last Admin: 08/27/23 05:41 Dose: 50 mcg Magnesium Hydroxide (Magnesium Hydroxide Susp 30 Ml Udc) 30 ml PO Q12H PRN PRN Reason: Constipation Stop: 09/19/23 13:22 Metoprolol Succinate (Metoprolol Succ 50mg Ext Rel Tab) 50 mg PO BID [facility] Stop: 09/23/23 20:59 Last Admin: 08/27/23 09:40 Dose: 50 mg Miscellaneous (Carbohydrates For Hypoglycemia ) 15 - 30 gm PO UD PRN PRN Reason: Hypoglycemia Protocol Stop: 09/22/23 00:23 Last Admin: 08/27/23 01:49 Dose: 15 gm Montelukast Sodium (Montelukast Sodium 10 Mg Tablet) 10 mg PO HS [facility] Stop: 09/22/23 20:59 Last Admin: 08/26/23 20:31 Dose: 10 mg Ondansetron HCl (Ondansetron Inj 2 Mg/Ml 2 Ml Vial) 4 mg IV Q6H PRN PRN Reason: Nausea Stop: 09/19/23 13:22 Last Admin: 08/26/23 15:20 Dose: 4 mg Pantoprazole Sodium (Pantoprazole 40 Mg Tab) 40 mg PO QAM [facility] Stop: 09/23/23 08:59 Last Admin: 08/27/23 09:42 Dose: 40 mg Polyethylene Glycol (Polyethylene (Miralax) 17 Gm Pack) 17 gm PO DAILY PRN PRN Reason: Constipation Stop: 09/19/23 13:22 Tramadol HCl (Tramadol Hcl 50 Mg Tablet) 25 mg PO Q6H PRN PRN Reason: Pain Stop: 09/25/23 17:25 Last Admin: 08/26/23 17:50 Dose: 25 mg
[2023-08-27] MEDS: MONTELUKAST SODIUM 10 MG TABLET PO SCH (20:02)
[2023-08-27] MEDS: traMADol HCL 50 MG TABLET PO PRN (22:45)
[2023-08-28] MEDS: D5W AND NSS 1,000 ML IV SCH ×2 (01:34→16:09)
[2023-08-28 06:03] LABS: Basophils # (auto) 0.04 K/uL (0.00-0.20); Basophils % (auto) 0.7 %; Eosinophils # (auto) 0.22 K/uL (0.00-0.50); Eosinophils % (auto) 3.6 %; Hematocrit (blood only) 24.3 % (37.0-47.0); Hemoglobin 7.9 g/dl (12.0-16.0); Immature Granulocytes # (auto) 0.07 K/uL (0.01-0.20); Immature Granulocytes % (auto) 1.1 %; Lymphocytes # (auto) 0.91 K/uL (1.20-3.40); Lymphocytes % (auto) 14.8 %; Mean Corpuscular Hemoglobin 33.9 pg (25.0-34.0); Mean Corpuscular Hgb Conc 32.5 g/dL (32.0-36.0); Mean Corpuscular Volume 104.3 fL (80.0-100.0); Mean Platelet Volume 10.2 fL (9.4-12.4); Monocytes # (auto) 0.42 K/uL (0.11-0.59); Monocytes % (auto) 6.8 %; Neutrophils # (auto) 4.48 K/uL (1.40-6.50); Platelet Count 208 K/uL (130-400); RDW Coefficient of Variation 16.7 % (11.5-14.5); RDW Standard Deviation 63.6 fL (36.4-46.3); Red Blood Count 2.33 M/uL (4.20-5.40); White Blood Count 6.14 K/ul (4.8-10.8)
[2023-08-28] MEDS: LEVOTHYROXINE SODIUM 50 MCG TABLET PO SCH (06:04)
[2023-08-28 06:25] LABS: BUN Creatinine Ratio 19.7 (10-20); Calcium 6.8 mg/dl (8.6-10.3); Creatinine Clr Calc Pharmacy 60.9 ml/min; Est GFR (African American) 85.3 ml/min; Est GFR (Non-African American) 73.6 ml/min; Magnesium 1.9 mg/dl (1.7-2.4); Phosphorus 1.9 mg/dl (2.5-4.9); Potassium 3.9 mmol/L (3.5-5.1)
[2023-08-28 06:31] LABS: RBC Morphology Unremarkable
[2023-08-28] MEDS: METOPROLOL SUCC 50MG EXT REL TAB PO SCH ×2 (09:06→20:08)
[2023-08-28] MEDS: APIXABAN 5 MG TABLET PO SCH ×2 (09:07→20:08)
[2023-08-28] MEDS: CLOPIDOGREL BISULFATE 75 MG TAB PO SCH (09:07)
[2023-08-28] MEDS: PANTOprazole 40 MG TAB PO SCH (09:07)
[2023-08-28] MEDS: DULoxetine HCL 60 MG CAP PO SCH ×2 (09:07→20:08)
[2023-08-28] MEDS: FLUTICASONE/VILANTEROL 100/25MCG 14 PUFFS/INHALER INH SCH (09:08)
[2023-08-28] MEDS: DICLOFENAC SOD 1% GEL 100 GM TUBE EXT SCH ×2 (09:08→20:08)
[2023-08-28] MEDS ORDERED: POTASSIUM PHOS 3 MMOL/1 ML INFUSION IV STA (09:18)
[2023-08-28] MEDS ORDERED: POTASSIUM PHOSPHATE 21 MMOL in SODIUM CHLORIDE 0.9% 500 ML IV ONE (09:30)
[2023-08-28] MEDS ORDERED: FUROSEMIDE INJ 20 MG/2 ML VIAL IV ONE (10:56)
[2023-08-28] MEDS ORDERED: TPN/PPN CONSULT PHARMACY PRN (11:07)
[2023-08-28] MEDS: DAPTOmycin 650 MG in SYRINGE 0 ML IV SCH (11:29)
[2023-08-28] MEDS ORDERED: DEXTROSE 10% 1,000 ML IV PRN (12:37)
--- NOTE | 2023-08-28 12:58 | Pharmacy Report ---
Pharmacy Initial PN Consult Nt - Date of Service August 28, 2023 - Scope Pharmacy has been consulted on this date to manage parenteral nutrition orders and order appropriate labs. As part of the Nutrition Support Team Guidelines, pharmacy will work in conjunction with dietary when determining the patients caloric needs. - Subjective * The patient is a 83 year old Female admitted on 08/20/23 for COMPLICATED UTI/INFLUENZA A . * Patient is to receive parenteral nutrition for prolonged NPO/poor appetite secondary to acute illness/multifactorial in nature. * Pertinent PMHx: HFrEF, resolved XIN/CKD, atrial fibrillation, VRE UTI w/ recent E.coli bacteremia - Objective Vascular Access: * Patient currently has a PICC line (central). Height & Weight (Last Documented) Height 5 ft 1 in Weight 94.5 kg Diet Order(s) 08/23/23 Breakfast Diet Intake & Ouput (24hrs) 08/27/23 08/28/23 08/29/23 06:59 06:59 06:59 Intake Total 872.167 / 571.608 8914 / 1382 794.667 / 794.667 Output Total 402 / 402 303 / 303 Balance 470.167 / 808.969 2005 / 1079 794.667 / 794.667 Selected Laboratory Results 08/28/23 05:49 Sodium 137 Potassium 3.9 Chloride 110 H Carbon Dioxide 23 Anion Gap 4 BUN 15 Creatinine 0.76 Est GFR ( Amer) 85.3 Est GFR (Non-Af Amer) 73.6 BUN/Creatinine Ratio 19.7 Glucose 87 Calcium 6.8 L Phosphorus 1.9 L D Magnesium 1.9 RD - Follow Up Nutrition Assessment Start: 08/21/23 12:27 Freq: Status: Active Protocol: Document 08/28/23 11:30 WN (Rec: 08/28/23 11:56 WN [id number]) RD - Initial Nutrition Assessment Start: 08/21/23 12:15 Freq: Status: Active Protocol: Document 08/21/23 12:15 WN (Rec: 08/21/23 12:27 WN [id number]) - Assessment & Plan Assessment: * Appreciate dietitians recommendations for macronutrients. * Electrolyte largely WNL, sans elevated chloride (110 mmol/L), low phosphorus (1.9 mg/dL), and low calcium (corrected: 8.4 mg/dL) * Phosphorus repletion this morning prior to PN and will add phosphorus to PN formulation today * Favor acetate to chloride given elevated chloride * Patient w/ history of CHF and slightly edematous (requiring IV furosemide today), discussed volume needs with provider (max volume ~1500 mL) * Limited ability to add calcium in today's PN due to phosphorus content and probability of precipitation Plan: * For Day #1 of TPN administration, the following will be ordered: * Macronutrients: * Amino Acids: 58 grams/day * Dextrose: 101 grams/day * Lipids: 50 grams/day * Micronutrients: * Sodium acetate: 60 mEq/day * Potassium phosphate: 30 mMol/day * Potassium acetate: 60 mEq/day * Magnesium sulfate: 8.12 mEq/day * Calcium gluconate: 3 mEq/day * Multivitamins: 10 mL/day * Trace elements: 1 mL/day * Thiamine: 100 mg/day * Total volume of 810 mL will be infused over 24 hours and will provide 1073 kcal/day * Labs will be ordered per PN protocol. * Pharmacy will follow and adjust PN orders on a daily basis. Plan to increase to/towards goal macronutrients tomorrow. Thank you!
--- NOTE | 2023-08-28 13:28 | XRay Report ---
XR chest 1V portable HISTORY: ff up pneumonia, r/o pleural effusion COMPARISON: Chest 08/24/2023. FINDINGS: A left PICC terminates in the expected location of the proximal SVC. No pneumothorax. Degen erative changes again noted within the shoulders. No acute fractures. Pulmonary edema and bilateral p leural effusions persist. Patchy densities at the lung bases remain unchanged. IMPRESSION: 1. No change in the mild interstitial pulmonary edema and small bilateral pleural effusions. 2. Bibasilar densities persist. This may represent a pneumonia. ACT 112: Negative or not required by law. Electronically signed by: Clyde Jensen M.D. 08/28/2023 1:26 PM
--- NOTE | 2023-08-28 15:08 | Hospitalist Progress Note ---
Date of Service August 28, 2023 Assessment & Plan (1) HTN, goal below 130/80: (2) Complicated UTI (urinary tract infection): (3) Influenza A: Plan: per Dr. Carbajal's notes with addendum: Assessment & Plan (1) Septic shock: (2) E coli bacteremia: (3) Complicated UTI (urinary tract infection): (4) Acute kidney injury superimposed on CKD: (5) Compensated respiratory acidosis: (6) Influenza A: (7) PAF (paroxysmal atrial fibrillation): (8) HTN, goal below 130/80: (9) Pulmonary embolism: (10) CAD (coronary artery disease): Plan 83 year old female presents to the [facility] via EMS from [facility] after having a complex inpatient hospitalization last month from 07/26/23-08/05/23 for septic shock and pyelonephritis with gram negative rods and E. Coli requiring ICU stabilization and inotropic support with Levo. Tested positive for influenza A while at [facility] as well. She started to become short of breath while at [facility] and they had administered 80 mg of IV Lasix with concerns of a CHF exacerbation. She was placed on BiPAP and route. Numerous Comorbidities including: COPD, HFrEF, HTN, HLD, A-fib, history of PE, history of CVA, hypothyroidism, and GERD. Leukocytosis 15.66, creatinine 1.81, procalcitonin 15.58, magnesium 1.7, UTI with leukocyte esterase 3+, WBC greater than 30, Patient is surprisingly AAOx3 and able to have full meaningful conversation and I do not suspect any encephalopathy. She is able to deny headache, dizziness, lightheadedness, chest pain, palpitations, bowel or bladder changes or recent falls. Patient is typically wheelchair-bound but has been working with physical therapy for strengthening. She was lying in her hospital bed with her BiPAP mask on FiO2 50%. We did trial pausing the Levophed however she became hypotensive and her map did not support greater than 65. Patient did tolerate removal of BiPAP mask and maintain saturations greater than 93%. Able to move all extremities and is dry on exam. Per family, patient has not been moving in the right direction since she has been at [facility]; she has decreased appetite and has poor oral fluid intake. Suspect this individual has been over diuresed and with being flu + became hypotensive and SOB. Continued UTI on labs and with visual presentation; continue IV abx taking into consideration renal function. Lengthy conversation with pt and family. Confirmed DNR/DNI. No defib/shock. OK for Bipap and vasopressors. Discussed with ICU Quality Control Scientist Dr. Byrd. Septic Shock: VRE UTI Acute Leukocytosis 15.66, procalcitonin 15.58 Was started on cefepime in the ED; review of last hospitalization goal was to avoid Vanco due to reduced kidney function. Patient was MRSA positive last admission so we will start Zosyn and await blood culture results Lactate 1.4 MRSA screen has been negative Urine culture is growing VRE Blood cultures are negative so far Hypotensive in route and in ED; just weaned off of Levo. Monitor BP and keep maps greater than 65 Started on intravenous Levophed-Levophed has been discontinued Continued with intravenous Zosyn and added IV azithromycin for respiratory coverage Zosyn discontinued and daptomycin added to cover VRE in urine Clinically stable and getting better without any fever and or chills Remains stable and showing more improvement Remains hemodynamically stable without any fever and no chills and white count has improved Remains very weak and [id number] to start physical therapy Strongly advised to eat and drink more Sugar is noted to be low this morning around 50s and started on small dose of intravenous dextrose with normal saline Updated the family members about very minimal improvement and explained the reasons for that She will have repeat blood cultures and urine culture to make sure there is no infection 08/28 Review blood culture: Negative so far Continue with daptomycin IV Electrolyte imbalance Monitor and replace Generalized weakness, deconditioning Start TPN today Influenza A: Acute Tested positive at [facility] per outpatient records; unsure date PCR positive here in ED Supportive treatmentand Tamiflu is not indicated Chest x-ray shows bibasilar infiltration/atelectasis Also on intravenous Zosyn and azithromycin Zosyn has been discontinued and azithromycin will be continued to finish the course to cover possible pneumonia No increasing shortness of breath-requiring 4 L via nasal cannula to maintain saturation Chest x-ray showed pulmonary congestion/multifocal pneumonia Will give a small dose of Lasix for more diuresis Remains little short of breath at rest with wheezing on examination We will discontinue any IV fluid and will give another dose of Lasix of 40 mg IV No shortness of breath at rest XIN on CKD: Acute Serum creatinine 1.81; received Lasix 80 mg this a.m. for SOB Baseline creatinine 0.7-0.9 Avoid nephrotoxic agents Received intravenous fluid Creatinine slightly better at 1.73 from 1.81 on admission Kidney function has been improving with a creatinine improved to 1.56 as of 08/22/2023 Creatinine has been improving and it is at 1.29 today 08/23/2023 Creatinine has been normalized Strongly advised to drink more fluid HFrEF: SOB: Acute Compensated respiratory acidosis; pH 7.34, CO2 44, HCO3 24 Received Lasix 80 mg via EMS; On Bipap FiO2 50% Trial removal tolerated; on nasal cannula Suspect SOB related to being Flu + Last ECHO 07/26/2023 with reduced EF 35 to 40% and moderate global akinesis Requiring 4 L to maintain saturation Chest x-ray shows mild congestion and will give 20 of Lasix IV x 1 Has been positive balance of 5400 mL Received 20 of intravenous Lasix this morning and is still complaining of some wheezing and minimal shortness of breath at rest We will discontinue intravenous fluid and give another dose of Lasix of 40 mg Cautious amount of intravenous dextrose and normal saline given to improve blood glucose level 08/28 Lasix 20 mg IV given Monitor closely Anemia No overt bleeding Could be secondary to sepsis Hemoglobin dropped to 6.6 in part complicated by IV fluid and dilution Will be receiving 1 to 2 units of blood transfusion Will monitor CBC-hemoglobin remains stable at 8.4 No more evidence of bleeding and hemoglobin remained stable Hemoglobin 7.9 Atrial Fibrillation: Chronic Takes Eliquis and Metoprolol; continue Eliquis on hold due to low hemoglobin and requiring blood transfusion Short episode of A-fib with RVR and started on intravenous amiodarone Reverted to sinus rhythm and amiodarone has been discontinued Was on beta-hayden before and will restart gradually Beta-hayden has been restarted with 25 mg twice daily Will increase the dose to 50 mg twice daily in a day or 2 when blood pressure is more stable Eliquis has been restarted Remains stable HLD: Chronic Takes atorvastatin; continue Hypothyroidism: Chronic Takes Levothyroxine; continue GERD: Chronic Takes Pantoprazole;continue Disposition: PCP: Dr. Salas Code Status: DNR/DNI VTE Prophylaxis: On Eliquis Admission and Anticipated Discharge Date Admission Date: August 20, 2023 Subjective Follow-up for UTI, etc. Seen resting in bed, sleeping but easily awakened Oriented x 2 Occasionally gets confused, easily redirected States she feels somewhat weak Appetite is poor Has some mild dyspnea No chest pain No other new symptoms Review of Systems Review of Systems: all noted and negative except for above Physical Exam Physical Exam: General- oriented x 3, not in distress, speaks in sentences with no effort or accessory muscle use Eyes- anicteric Neck- no JVD Lungs-mild wheeze at the bases No crackles Heart- normal rate, regular rhythm; no murmurs Abdomen- normal bowel sounds, nondistended, soft, no tenderness Extremities- no pretibial edema, no calf tenderness Neuro- alert, oriented x 2; no gross focal neurologic deficits Skin- warm & dry Results & Data Results & Data Vital Signs (Past 12 Hours) Vital Signs Temp Pulse Pulse Resp BP Pulse Ox O2 Del Method 08/28/23 14:49 88 08/28/23 11:11 36.3 C L 83 20 134/80 97 Nasal Cannula 08/28/23 08:50 Nasal Cannula 08/28/23 07:44 81 08/28/23 07:09 36.5 C 81 20 127/78 96 Nasal Cannula 08/28/23 03:02 36.5 C 84 20 116/69 93 Nasal Cannula O2 Flow Rate 08/28/23 14:49 08/28/23 11:11 2.5 08/28/23 08:50 2 08/28/23 07:44 08/28/23 07:09 2 08/28/23 03:02 2 all noted and reviewed including below
[2023-08-28] MEDS ORDERED: CLINOLIPID 20% IV FAT EMULSION 250 ML IV SCH (16:00)
[2023-08-28] MEDS ORDERED: CENTRAL TPN IV SCH (16:00)
[2023-08-28] MEDS ORDERED: [UNRECOGNIZED DRUG - OTHER] IV SCH (16:00)
[2023-08-28] MEDS: MONTELUKAST SODIUM 10 MG TABLET PO SCH (20:08)
[2023-08-28] MEDS ORDERED: STOP CLINOLIPID ONE (22:00)
[2023-08-29] MEDS: LEVOTHYROXINE SODIUM 50 MCG TABLET PO SCH (05:39)
[2023-08-29 07:33] LABS: BUN Creatinine Ratio 18.7 (10-20); Creatinine Clr Calc Pharmacy 60.6 ml/min; Est GFR (African American) 86.6 ml/min; Est GFR (Non-African American) 74.8 ml/min; Magnesium 1.9 mg/dl (1.7-2.4); Potassium 5.1 mmol/L (3.5-5.1)
[2023-08-29] MEDS: DICLOFENAC SOD 1% GEL 100 GM TUBE EXT SCH ×2 (08:31→21:26)
[2023-08-29] MEDS: FLUTICASONE/VILANTEROL 100/25MCG 14 PUFFS/INHALER INH SCH (08:31)
[2023-08-29] MEDS: APIXABAN 5 MG TABLET PO SCH ×2 (08:32→21:25)
[2023-08-29] MEDS: DULoxetine HCL 60 MG CAP PO SCH ×2 (08:32→21:25)
[2023-08-29] MEDS: CLOPIDOGREL BISULFATE 75 MG TAB PO SCH (08:32)
[2023-08-29] MEDS: PANTOprazole 40 MG TAB PO SCH (08:32)
[2023-08-29] MEDS: METOPROLOL SUCC 50MG EXT REL TAB PO SCH ×2 (08:32→21:25)
[2023-08-29] MEDS: DAPTOmycin 650 MG in SYRINGE 0 ML IV SCH (10:29)
[2023-08-29 12:49] LABS: Basophils # (auto) 0.03 K/uL (0.00-0.20); Basophils % (auto) 0.4 %; Hematocrit (blood only) 27.4 % (37.0-47.0); Hemoglobin 8.5 g/dl (12.0-16.0); Immature Granulocytes # (auto) 0.06 K/uL (0.01-0.20); Immature Granulocytes % (auto) 0.9 %; Lymphocytes # (auto) 1.11 K/uL (1.20-3.40); Lymphocytes % (auto) 16.5 %; Mean Corpuscular Hemoglobin 33.6 pg (25.0-34.0); Mean Corpuscular Volume 108.3 fL (80.0-100.0); Mean Platelet Volume 10.7 fL (9.4-12.4); Monocytes # (auto) 0.39 K/uL (0.11-0.59); Monocytes % (auto) 5.8 %; Neutrophils # (auto) 4.94 K/uL (1.40-6.50); Neutrophils % (auto) 73.4 %; Platelet Count 230 K/uL (130-400); RDW Coefficient of Variation 17.3 % (11.5-14.5); RDW Standard Deviation 69.1 fL (36.4-46.3); Red Blood Count 2.53 M/uL (4.20-5.40); White Blood Count 6.73 K/ul (4.8-10.8)
--- NOTE | 2023-08-29 13:57 | Hospitalist Progress Note ---
Date of Service August 29, 2023 Assessment & Plan (1) HTN, goal below 130/80: (2) Complicated UTI (urinary tract infection): (3) Influenza A: Plan: per Dr. Carbajal's notes with addendum: Assessment & Plan (1) Septic shock: (2) E coli bacteremia: (3) Complicated UTI (urinary tract infection): (4) Acute kidney injury superimposed on CKD: (5) Compensated respiratory acidosis: (6) Influenza A: (7) PAF (paroxysmal atrial fibrillation): (8) HTN, goal below 130/80: (9) Pulmonary embolism: (10) CAD (coronary artery disease): Plan 83 year old female presents to the [facility] via EMS from [facility] after having a complex inpatient hospitalization last month from 07/26/23-08/05/23 for septic shock and pyelonephritis with gram negative rods and E. Coli requiring ICU stabilization and inotropic support with Levo. Tested positive for influenza A while at [facility] as well. She started to become short of breath while at [facility] and they had administered 80 mg of IV Lasix with concerns of a CHF exacerbation. She was placed on BiPAP and route. Numerous Comorbidities including: COPD, HFrEF, HTN, HLD, A-fib, history of PE, history of CVA, hypothyroidism, and GERD. Leukocytosis 15.66, creatinine 1.81, procalcitonin 15.58, magnesium 1.7, UTI with leukocyte esterase 3+, WBC greater than 30, Patient is surprisingly AAOx3 and able to have full meaningful conversation and I do not suspect any encephalopathy. She is able to deny headache, dizziness, lightheadedness, chest pain, palpitations, bowel or bladder changes or recent falls. Patient is typically wheelchair-bound but has been working with physical therapy for strengthening. She was lying in her hospital bed with her BiPAP mask on FiO2 50%. We did trial pausing the Levophed however she became hypotensive and her map did not support greater than 65. Patient did tolerate removal of BiPAP mask and maintain saturations greater than 93%. Able to move all extremities and is dry on exam. Per family, patient has not been moving in the right direction since she has been at [facility]; she has decreased appetite and has poor oral fluid intake. Suspect this individual has been over diuresed and with being flu + became hypotensive and SOB. Continued UTI on labs and with visual presentation; continue IV abx taking into consideration renal function. Lengthy conversation with pt and family. Confirmed DNR/DNI. No defib/shock. OK for Bipap and vasopressors. Discussed with ICU Operations Associate Dr. Byrd. Septic Shock: VRE UTI Acute Leukocytosis 15.66, procalcitonin 15.58 Was started on cefepime in the ED; review of last hospitalization goal was to avoid Vanco due to reduced kidney function. Patient was MRSA positive last admission so we will start Zosyn and await blood culture results Lactate 1.4 MRSA screen has been negative Urine culture is growing VRE Blood cultures are negative so far Hypotensive in route and in ED; just weaned off of Levo. Monitor BP and keep maps greater than 65 Started on intravenous Levophed-Levophed has been discontinued Continued with intravenous Zosyn and added IV azithromycin for respiratory coverage Zosyn discontinued and daptomycin added to cover VRE in urine Clinically stable and getting better without any fever and or chills Remains stable and showing more improvement Remains hemodynamically stable without any fever and no chills and white count has improved Remains very weak and [id number] to start physical therapy Strongly advised to eat and drink more Sugar is noted to be low this morning around 50s and started on small dose of intravenous dextrose with normal saline Updated the family members about very minimal improvement and explained the reasons for that She will have repeat blood cultures and urine culture to make sure there is no infection 08/28 Review blood culture: Negative so far Continue with daptomycin IV Electrolyte imbalance Monitor and replace 08/29 repeat cultures negative so far continue Daptomycin day # 6 Generalized weakness, deconditioning 08/28 started TPN 08/29 continue TPN encouraged to have more PO intake Influenza A: Acute Tested positive at [facility] per outpatient records; unsure date PCR positive here in ED Supportive treatmentand Tamiflu is not indicated Chest x-ray shows bibasilar infiltration/atelectasis Also on intravenous Zosyn and azithromycin Zosyn has been discontinued and azithromycin will be continued to finish the course to cover possible pneumonia No increasing shortness of breath-requiring 4 L via nasal cannula to maintain saturation Chest x-ray showed pulmonary congestion/multifocal pneumonia Will give a small dose of Lasix for more diuresis Remains little short of breath at rest with wheezing on examination We will discontinue any IV fluid and will give another dose of Lasix of 40 mg IV No shortness of breath at rest XIN on CKD: Acute Serum creatinine 1.81; received Lasix 80 mg this a.m. for SOB Baseline creatinine 0.7-0.9 Avoid nephrotoxic agents Received intravenous fluid Creatinine slightly better at 1.73 from 1.81 on admission Kidney function has been improving with a creatinine improved to 1.56 as of 08/22/2023 Creatinine has been improving and it is at 1.29 today 08/23/2023 Creatinine has been normalized Strongly advised to drink more fluid 08/29 crea stable HFrEF: SOB: Acute Compensated respiratory acidosis; pH 7.34, CO2 44, HCO3 24 Received Lasix 80 mg via EMS; On Bipap FiO2 50% Trial removal tolerated; on nasal cannula Suspect SOB related to being Flu + Last ECHO 07/26/2023 with reduced EF 35 to 40% and moderate global akinesis Requiring 4 L to maintain saturation Chest x-ray shows mild congestion and will give 20 of Lasix IV x 1 Has been positive balance of 5400 mL Received 20 of intravenous Lasix this morning and is still complaining of some wheezing and minimal shortness of breath at rest We will discontinue intravenous fluid and give another dose of Lasix of 40 mg Cautious amount of intravenous dextrose and normal saline given to improve blood glucose level 08/28 Lasix 20 mg IV given Monitor closely 08/29 appears euvolemic today monitor closely Anemia No overt bleeding Could be secondary to sepsis Hemoglobin dropped to 6.6 in part complicated by IV fluid and dilution Will be receiving 1 to 2 units of blood transfusion Will monitor CBC-hemoglobin remains stable at 8.4 No more evidence of bleeding and hemoglobin remained stable Hemoglobin 7.9--> 8.5 Atrial Fibrillation: Chronic Takes Eliquis and Metoprolol; continue Eliquis on hold due to low hemoglobin and requiring blood transfusion Short episode of A-fib with RVR and started on intravenous amiodarone Reverted to sinus rhythm and amiodarone has been discontinued Was on beta-hayden before and will restart gradually Beta-hayden has been restarted with 25 mg twice daily Will increase the dose to 50 mg twice daily in a day or 2 when blood pressure is more stable Eliquis has been restarted Remains stable HLD: Chronic Takes atorvastatin; continue Hypothyroidism: Chronic Takes Levothyroxine; continue GERD: Chronic Takes Pantoprazole;continue Disposition: PCP: Dr. Salas Code Status: DNR/DNI VTE Prophylaxis: On Eliquis Admission and Anticipated Discharge Date Admission Date: August 20, 2023 Subjective ff up for UTI, sepsis, etc seen resting in bed, sleeping but easily awakened appears somewhat more alert, brighter today states she feels somewhat better today denies shortness of breath, chest pain encouraged to try to increase food intake no other symptoms Review of Systems Review of Systems: all noted and negative except for above Physical Exam Physical Exam: General- oriented x 2, not in distress, speaks in sentences with no effort or accessory muscle use Eyes- anicteric Neck- no JVD Lungs- clear breath sounds bilaterally, no rales/wheezes Heart- normal rate, regular rhythm; no murmurs Abdomen- normal bowel sounds, nondistended, soft, no tenderness Extremities- no pretibial edema, no calf tenderness Neuro- alert, oriented x 2; no new gross focal neurologic deficits Skin- warm & dry Results & Data Results & Data Vital Signs (Past 12 Hours) Vital Signs Temp Pulse Pulse Resp BP Pulse Ox O2 Del Method 08/29/23 12:39 36.3 C L 80 18 105/67 93 Nasal Cannula 08/29/23 09:13 Nasal Cannula 08/29/23 08:11 36.6 C 86 18 119/71 96 Nasal Cannula 08/29/23 08:00 82 08/29/23 03:39 36.3 C L 85 111/76 97 Nasal Cannula O2 Flow Rate 08/29/23 12:39 2 08/29/23 09:13 2 08/29/23 08:11 08/29/23 08:00 08/29/23 03:39 all noted and reviewed including below
[2023-08-29] MEDS ORDERED: [UNRECOGNIZED DRUG - OTHER] IV SCH (16:00)
[2023-08-29] MEDS ORDERED: CLINOLIPID 20% IV FAT EMULSION 250 ML IV SCH (16:00)
[2023-08-29] MEDS ORDERED: CENTRAL TPN IV SCH (16:00)
[2023-08-29] MEDS: MONTELUKAST SODIUM 10 MG TABLET PO SCH (21:25)
[2023-08-29] MEDS: STOP CLINOLIPID SCH (22:24)
[2023-08-30] MEDS: LEVOTHYROXINE SODIUM 50 MCG TABLET PO SCH (05:37)
[2023-08-30 07:04] LABS: Magnesium 1.9 mg/dl (1.7-2.4); Potassium 4.6 mmol/L (3.5-5.1)
[2023-08-30 07:10] LABS: BUN Creatinine Ratio 23.3 (10-20); Creatinine Clr Calc Pharmacy 62.6 ml/min; Est GFR (African American) 89.5 ml/min; Est GFR (Non-African American) 77.2 ml/min
[2023-08-30] MEDS: DULoxetine HCL 60 MG CAP PO SCH ×2 (08:42→20:53)
[2023-08-30] MEDS: FLUTICASONE/VILANTEROL 100/25MCG 14 PUFFS/INHALER INH SCH (08:42)
[2023-08-30] MEDS: DICLOFENAC SOD 1% GEL 100 GM TUBE EXT SCH ×2 (08:44→20:53)
[2023-08-30] MEDS: METOPROLOL SUCC 50MG EXT REL TAB PO SCH ×2 (08:44→20:53)
[2023-08-30] MEDS: APIXABAN 5 MG TABLET PO SCH ×2 (08:44→20:53)
[2023-08-30] MEDS: PANTOprazole 40 MG TAB PO SCH (08:44)
[2023-08-30] MEDS: CLOPIDOGREL BISULFATE 75 MG TAB PO SCH (08:44)
[2023-08-30] MEDS: DAPTOmycin 650 MG in SYRINGE 0 ML IV SCH (12:41)
[2023-08-30] MEDS ORDERED: CENTRAL TPN IV SCH (16:00)
[2023-08-30] MEDS ORDERED: CLINOLIPID 20% IV FAT EMULSION 250 ML IV SCH (16:00)
[2023-08-30] MEDS ORDERED: [UNRECOGNIZED DRUG - OTHER] IV SCH (16:00)
--- NOTE | 2023-08-30 17:55 | Hospitalist Progress Note ---
Date of Service August 30, 2023 Assessment & Plan (1) HTN, goal below 130/80: (2) Complicated UTI (urinary tract infection): (3) Influenza A: Plan: per Dr. Carbajal's notes with addendum: Assessment & Plan (1) Septic shock: (2) E coli bacteremia: (3) Complicated UTI (urinary tract infection): (4) Acute kidney injury superimposed on CKD: (5) Compensated respiratory acidosis: (6) Influenza A: (7) PAF (paroxysmal atrial fibrillation): (8) HTN, goal below 130/80: (9) Pulmonary embolism: (10) CAD (coronary artery disease): Plan 83 year old female presents to the [facility] via EMS from [facility] after having a complex inpatient hospitalization last month from 07/26/23-08/05/23 for septic shock and pyelonephritis with gram negative rods and E. Coli requiring ICU stabilization and inotropic support with Levo. Tested positive for influenza A while at [facility] as well. She started to become short of breath while at [facility] and they had administered 80 mg of IV Lasix with concerns of a CHF exacerbation. She was placed on BiPAP and route. Numerous Comorbidities including: COPD, HFrEF, HTN, HLD, A-fib, history of PE, history of CVA, hypothyroidism, and GERD. Leukocytosis 15.66, creatinine 1.81, procalcitonin 15.58, magnesium 1.7, UTI with leukocyte esterase 3+, WBC greater than 30, Patient is surprisingly AAOx3 and able to have full meaningful conversation and I do not suspect any encephalopathy. She is able to deny headache, dizziness, lightheadedness, chest pain, palpitations, bowel or bladder changes or recent falls. Patient is typically wheelchair-bound but has been working with physical therapy for strengthening. She was lying in her hospital bed with her BiPAP mask on FiO2 50%. We did trial pausing the Levophed however she became hypotensive and her map did not support greater than 65. Patient did tolerate removal of BiPAP mask and maintain saturations greater than 93%. Able to move all extremities and is dry on exam. Per family, patient has not been moving in the right direction since she has been at [facility]; she has decreased appetite and has poor oral fluid intake. Suspect this individual has been over diuresed and with being flu + became hypotensive and SOB. Continued UTI on labs and with visual presentation; continue IV abx taking into consideration renal function. Lengthy conversation with pt and family. Confirmed DNR/DNI. No defib/shock. OK for Bipap and vasopressors. Discussed with ICU [employer] Dr. Byrd. Septic Shock: VRE UTI Acute Leukocytosis 15.66, procalcitonin 15.58 Was started on cefepime in the ED; review of last hospitalization goal was to avoid Vanco due to reduced kidney function. Patient was MRSA positive last admission so we will start Zosyn and await blood culture results Lactate 1.4 MRSA screen has been negative Urine culture is growing VRE Blood cultures are negative so far Hypotensive in route and in ED; just weaned off of Levo. Monitor BP and keep maps greater than 65 Started on intravenous Levophed-Levophed has been discontinued Continued with intravenous Zosyn and added IV azithromycin for respiratory coverage Zosyn discontinued and daptomycin added to cover VRE in urine Clinically stable and getting better without any fever and or chills Remains stable and showing more improvement Remains hemodynamically stable without any fever and no chills and white count has improved Remains very weak and [id number] to start physical therapy Strongly advised to eat and drink more Sugar is noted to be low this morning around 50s and started on small dose of intravenous dextrose with normal saline Updated the family members about very minimal improvement and explained the reasons for that She will have repeat blood cultures and urine culture to make sure there is no infection 08/28 Review blood culture: Negative so far Continue with daptomycin IV Electrolyte imbalance Monitor and replace 08/29 repeat cultures negative so far continue Daptomycin day # 6 08/30 stable Continue daptomycin day number 7 out of 14 Generalized weakness, deconditioning 08/28 started TPN 08/29 continue TPN encouraged to have more PO intake 08/30 Appetite seems to be gradually improving Continue TPN Influenza A: Acute Tested positive at [facility] per outpatient records; unsure date PCR positive here in ED Supportive treatmentand Tamiflu is not indicated Chest x-ray shows bibasilar infiltration/atelectasis Also on intravenous Zosyn and azithromycin Zosyn has been discontinued and azithromycin will be continued to finish the course to cover possible pneumonia No increasing shortness of breath-requiring 4 L via nasal cannula to maintain saturation Chest x-ray showed pulmonary congestion/multifocal pneumonia Will give a small dose of Lasix for more diuresis Remains little short of breath at rest with wheezing on examination We will discontinue any IV fluid and will give another dose of Lasix of 40 mg IV No shortness of breath at rest XIN on CKD: Acute Serum creatinine 1.81; received Lasix 80 mg this a.m. for SOB Baseline creatinine 0.7-0.9 Avoid nephrotoxic agents Received intravenous fluid Creatinine slightly better at 1.73 from 1.81 on admission Kidney function has been improving with a creatinine improved to 1.56 as of 08/22/2023 Creatinine has been improving and it is at 1.29 today 08/23/2023 Creatinine has been normalized Strongly advised to drink more fluid 08/30 crea stable HFrEF: SOB: Acute Compensated respiratory acidosis; pH 7.34, CO2 44, HCO3 24 Received Lasix 80 mg via EMS; On Bipap FiO2 50% Trial removal tolerated; on nasal cannula Suspect SOB related to being Flu + Last ECHO 07/26/2023 with reduced EF 35 to 40% and moderate global akinesis Requiring 4 L to maintain saturation Chest x-ray shows mild congestion and will give 20 of Lasix IV x 1 Has been positive balance of 5400 mL Received 20 of intravenous Lasix this morning and is still complaining of some wheezing and minimal shortness of breath at rest We will discontinue intravenous fluid and give another dose of Lasix of 40 mg Cautious amount of intravenous dextrose and normal saline given to improve blood glucose level 08/28 Lasix 20 mg IV given Monitor closely 08/30 appears euvolemic today monitor closely Anemia No overt bleeding Could be secondary to sepsis Hemoglobin dropped to 6.6 in part complicated by IV fluid and dilution Will be receiving 1 to 2 units of blood transfusion Will monitor CBC-hemoglobin remains stable at 8.4 No more evidence of bleeding and hemoglobin remained stable Hemoglobin 7.9--> 8.5 Atrial Fibrillation: Chronic Takes Eliquis and Metoprolol; continue Eliquis on hold due to low hemoglobin and requiring blood transfusion Short episode of A-fib with RVR and started on intravenous amiodarone Reverted to sinus rhythm and amiodarone has been discontinued Was on beta-hayden before and will restart gradually Beta-hayden has been restarted with 25 mg twice daily Will increase the dose to 50 mg twice daily in a day or 2 when blood pressure is more stable Eliquis has been restarted Remains stable HLD: Chronic Takes atorvastatin; continue Hypothyroidism: Chronic Takes Levothyroxine; continue GERD: Chronic Takes Pantoprazole;continue Disposition: PCP: Dr. Salas Code Status: DNR/DNI VTE Prophylaxis: On Eliquis Admission and Anticipated Discharge Date Admission Date: August 20, 2023 Subjective Follow-up for weakness, UTI, etc. Seen resting in bed, comfortable, not in distress Seems to be more alert, brighter today Appetite gradually improving, trying to eat a little bit more solid foods today Denies shortness of breath, chest pain, palpitations, dizziness No abdominal pain No other new symptoms Review of Systems Review of Systems: all noted and negative except for above Physical Exam Physical Exam: General- oriented x 2, not in distress, speaks in sentences with no effort or accessory muscle use Eyes- anicteric Neck- no JVD Lungs- clear breath sounds bilaterally, no crackles or wheezing Heart- normal rate, regular rhythm; no murmurs Abdomen- normal bowel sounds, nondistended, soft, no tenderness Extremities- no pretibial edema, no calf tenderness Neuro- alert, oriented x 2; no gross focal neurologic deficits Skin- warm & dry Results & Data Results & Data Vital Signs (Past 12 Hours) Vital Signs Temp Pulse Pulse Resp BP BP Pulse Ox 08/30/23 16:13 08/30/23 15:11 75 08/30/23 14:58 36.1 C L 76 18 129/76 93 08/30/23 12:41 08/30/23 12:00 08/30/23 12:00 97 H 08/30/23 11:15 36.4 C L 70 18 119/70 97 08/30/23 09:00 08/30/23 08:22 36.3 C L 75 18 109/66 94 08/30/23 07:24 70 O2 Del Method O2 Flow Rate 08/30/23 16:13 Nasal Cannula 2 08/30/23 15:11 08/30/23 14:58 Nasal Cannula 2 08/30/23 12:41 97 08/30/23 12:00 Nasal Cannula 2 08/30/23 12:00 08/30/23 11:15 Nasal Cannula 2 08/30/23 09:00 Nasal Cannula 2 08/30/23 08:22 Nasal Cannula 2 08/30/23 07:24 all noted and reviewed including below
[2023-08-30] MEDS: MONTELUKAST SODIUM 10 MG TABLET PO SCH (20:53)
[2023-08-30] MEDS: STOP CLINOLIPID SCH (21:41)
[2023-08-31] MEDS: LEVOTHYROXINE SODIUM 50 MCG TABLET PO SCH (06:02)
[2023-08-31 08:20] LABS: Calcium 7.3 mg/dl (8.6-10.3); Potassium 4.4 mmol/L (3.5-5.1)
[2023-08-31 08:25] LABS: BUN Creatinine Ratio 31.9 (10-20); Creatinine Clr Calc Pharmacy 66.3 ml/min; Est GFR (African American) 94.6 ml/min; Est GFR (Non-African American) 81.6 ml/min; Phosphorus 3.1 mg/dl (2.5-4.9)
[2023-08-31] MEDS: APIXABAN 5 MG TABLET PO SCH ×2 (08:33→20:15)
[2023-08-31] MEDS: CLOPIDOGREL BISULFATE 75 MG TAB PO SCH (08:33)
[2023-08-31] MEDS: METOPROLOL SUCC 50MG EXT REL TAB PO SCH ×2 (08:33→20:15)
[2023-08-31] MEDS: PANTOprazole 40 MG TAB PO SCH (08:33)
[2023-08-31] MEDS: FLUTICASONE/VILANTEROL 100/25MCG 14 PUFFS/INHALER INH SCH (08:34)
[2023-08-31] MEDS: DICLOFENAC SOD 1% GEL 100 GM TUBE EXT SCH ×2 (08:34→20:16)
[2023-08-31] MEDS: DULoxetine HCL 60 MG CAP PO SCH ×2 (08:34→20:15)
[2023-08-31] MEDS: ONDANSETRON INJ 2 MG/ML 2 ML VIAL IV PRN (08:41)
[2023-08-31] MEDS: DAPTOmycin 650 MG in SYRINGE 0 ML IV SCH (11:59)
[2023-08-31] MEDS ORDERED: CENTRAL TPN IV SCH (16:00)
[2023-08-31] MEDS ORDERED: [UNRECOGNIZED DRUG - OTHER] IV SCH (16:00)
[2023-08-31] MEDS ORDERED: CLINOLIPID 20% IV FAT EMULSION 250 ML IV SCH (16:00)
[2023-08-31] MEDS: traMADol HCL 50 MG TABLET PO PRN (18:05)
--- NOTE | 2023-08-31 19:05 | Hospitalist Progress Note ---
Date of Service August 31, 2023 Assessment & Plan (1) HTN, goal below 130/80: (2) Complicated UTI (urinary tract infection): (3) Influenza A: Plan: per Dr. Carbajal's notes with addendum: Assessment & Plan (1) Septic shock: (2) E coli bacteremia: (3) Complicated UTI (urinary tract infection): (4) Acute kidney injury superimposed on CKD: (5) Compensated respiratory acidosis: (6) Influenza A: (7) PAF (paroxysmal atrial fibrillation): (8) HTN, goal below 130/80: (9) Pulmonary embolism: (10) CAD (coronary artery disease): Plan 83 year old female presents to the [facility] via EMS from [facility] after having a complex inpatient hospitalization last month from 07/26/23-08/05/23 for septic shock and pyelonephritis with gram negative rods and E. Coli requiring ICU stabilization and inotropic support with Levo. Tested positive for influenza A while at [facility] as well. She started to become short of breath while at [facility] and they had administered 80 mg of IV Lasix with concerns of a CHF exacerbation. She was placed on BiPAP and route. Numerous Comorbidities including: COPD, HFrEF, HTN, HLD, A-fib, history of PE, history of CVA, hypothyroidism, and GERD. Leukocytosis 15.66, creatinine 1.81, procalcitonin 15.58, magnesium 1.7, UTI with leukocyte esterase 3+, WBC greater than 30, Patient is surprisingly AAOx3 and able to have full meaningful conversation and I do not suspect any encephalopathy. She is able to deny headache, dizziness, lightheadedness, chest pain, palpitations, bowel or bladder changes or recent falls. Patient is typically wheelchair-bound but has been working with physical therapy for strengthening. She was lying in her hospital bed with her BiPAP mask on FiO2 50%. We did trial pausing the Levophed however she became hypotensive and her map did not support greater than 65. Patient did tolerate removal of BiPAP mask and maintain saturations greater than 93%. Able to move all extremities and is dry on exam. Per family, patient has not been moving in the right direction since she has been at [facility]; she has decreased appetite and has poor oral fluid intake. Suspect this individual has been over diuresed and with being flu + became hypotensive and SOB. Continued UTI on labs and with visual presentation; continue IV abx taking into consideration renal function. Lengthy conversation with pt and family. Confirmed DNR/DNI. No defib/shock. OK for Bipap and vasopressors. Discussed with ICU Pattern Finisher Dr. Byrd. Septic Shock: VRE UTI Acute Leukocytosis 15.66, procalcitonin 15.58 Was started on cefepime in the ED; review of last hospitalization goal was to avoid Vanco due to reduced kidney function. Patient was MRSA positive last admission so we will start Zosyn and await blood culture results Lactate 1.4 MRSA screen has been negative Urine culture is growing VRE Blood cultures are negative so far Hypotensive in route and in ED; just weaned off of Levo. Monitor BP and keep maps greater than 65 Started on intravenous Levophed-Levophed has been discontinued Continued with intravenous Zosyn and added IV azithromycin for respiratory coverage Zosyn discontinued and daptomycin added to cover VRE in urine Clinically stable and getting better without any fever and or chills Remains stable and showing more improvement Remains hemodynamically stable without any fever and no chills and white count has improved Remains very weak and [id number] to start physical therapy Strongly advised to eat and drink more Sugar is noted to be low this morning around 50s and started on small dose of intravenous dextrose with normal saline Updated the family members about very minimal improvement and explained the reasons for that She will have repeat blood cultures and urine culture to make sure there is no infection 08/31 Repeat urine culture: Whitney albicans, 40,000 Review blood culture: Negative x 48 hours Continue with daptomycin IV to complete 2-week course Generalized weakness, deconditioning 08/28 started TPN 08/29 continue TPN encouraged to have more PO intake 08/30 Appetite seems to be gradually improving Continue TPN 08/31 Appetite still poor despite IV discussion, encouragement Continue TPN 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 Influenza A: Acute Tested positive at [facility] per outpatient records; unsure date PCR positive here in ED Supportive treatmentand Tamiflu is not indicated Chest x-ray shows bibasilar infiltration/atelectasis Also on intravenous Zosyn and azithromycin Zosyn has been discontinued and azithromycin will be continued to finish the course to cover possible pneumonia No increasing shortness of breath-requiring 4 L via nasal cannula to maintain saturation Chest x-ray showed pulmonary congestion/multifocal pneumonia Will give a small dose of Lasix for more diuresis Remains little short of breath at rest with wheezing on examination We will discontinue any IV fluid and will give another dose of Lasix of 40 mg IV No shortness of breath at rest XIN on CKD: Acute Serum creatinine 1.81; received Lasix 80 mg this a.m. for SOB Baseline creatinine 0.7-0.9 Avoid nephrotoxic agents Received intravenous fluid Creatinine slightly better at 1.73 from 1.81 on admission Kidney function has been improving with a creatinine improved to 1.56 as of 08/22/2023 Creatinine has been improving and it is at 1.29 today 08/23/2023 Creatinine has been normalized Strongly advised to drink more fluid 08/31 crea stable HFrEF: SOB: Acute Compensated respiratory acidosis; pH 7.34, CO2 44, HCO3 24 Received Lasix 80 mg via EMS; On Bipap FiO2 50% Trial removal tolerated; on nasal cannula Suspect SOB related to being Flu + Last ECHO 07/26/2023 with reduced EF 35 to 40% and moderate global akinesis Requiring 4 L to maintain saturation Chest x-ray shows mild congestion and will give 20 of Lasix IV x 1 Has been positive balance of 5400 mL Received 20 of intravenous Lasix this morning and is still complaining of some wheezing and minimal shortness of breath at rest We will discontinue intravenous fluid and give another dose of Lasix of 40 mg Cautious amount of intravenous dextrose and normal saline given to improve blood glucose level 08/31 Patient euvolemic, towards the dry side Hold off on diuretics today Anemia No overt bleeding Could be secondary to sepsis Hemoglobin dropped to 6.6 in part complicated by IV fluid and dilution Will be receiving 1 to 2 units of blood transfusion Will monitor CBC-hemoglobin remains stable at 8.4 No more evidence of bleeding and hemoglobin remained stable Hemoglobin 7.9--> 8.5 Atrial Fibrillation: Chronic Takes Eliquis and Metoprolol; continue Eliquis on hold due to low hemoglobin and requiring blood transfusion Short episode of A-fib with RVR and started on intravenous amiodarone Reverted to sinus rhythm and amiodarone has been discontinued Was on beta-hayden before and will restart gradually Beta-hayden has been restarted with 25 mg twice daily Will increase the dose to 50 mg twice daily in a day or 2 when blood pressure is more stable Eliquis has been restarted Remains stable HLD: Chronic Takes atorvastatin; continue Hypothyroidism: Chronic Takes Levothyroxine; continue GERD: Chronic Takes Pantoprazole;continue Disposition: PCP: Dr. Salas Code Status: DNR/DNI VTE Prophylaxis: On Eliquis Admission and Anticipated Discharge Date Admission Date: August 20, 2023 Subjective Follow-up for weakness, UTI, etc. Seen resting in bed, awake and alert, answers all questions appropriately States she feels fine overall Still weak Still has poor appetite States she is just not hungry Denies shortness of breath, chest pain, abdominal pain No other new symptom Review of Systems Review of Systems: all noted and negative except for above Physical Exam Physical Exam: General- oriented x 2, not in distress, speaks in sentences with no effort or accessory muscle use Eyes- anicteric Neck- no JVD Lungs- clear breath sounds bilaterally, no crackles Heart- normal rate, regular rhythm; no murmurs Abdomen- normal bowel sounds, nondistended, soft, nontender Extremities- no pretibial edema, no calf tenderness Neuro- alert, oriented x 2; no new gross focal neurologic deficits Skin- warm & dry Results & Data Results & Data Vital Signs (Past 12 Hours) Vital Signs Temp Pulse Pulse Resp BP Pulse Ox O2 Del Method 08/31/23 15:09 36.4 C L 88 18 115/64 95 Nasal Cannula 08/31/23 14:52 86 08/31/23 11:44 36.6 C 90 18 112/68 96 Nasal Cannula 08/31/23 10:27 Nasal Cannula 08/31/23 07:52 36.6 C 77 16 122/72 96 Nasal Cannula O2 Flow Rate 08/31/23 15:09 2 08/31/23 14:52 08/31/23 11:44 2 08/31/23 10:27 2 08/31/23 07:52 2 all noted and reviewed including below
[2023-08-31] MEDS: MONTELUKAST SODIUM 10 MG TABLET PO SCH (20:15)
[2023-08-31] MEDS: STOP CLINOLIPID SCH (22:10)
[2023-09-01] MEDS: LEVOTHYROXINE SODIUM 50 MCG TABLET PO SCH (06:03)
[2023-09-01 07:44] LABS: Magnesium 2.1 mg/dl (1.7-2.4); Potassium 5.2 mmol/L (3.5-5.1)
[2023-09-01 07:49] LABS: BUN Creatinine Ratio 34.2 (10-20); Est GFR (African American) 85.3 ml/min; Est GFR (Non-African American) 73.6 ml/min; Phosphorus 3.4 mg/dl (2.5-4.9)
[2023-09-01] MEDS: DULoxetine HCL 60 MG CAP PO SCH ×2 (08:13→20:09)
[2023-09-01] MEDS: PANTOprazole 40 MG TAB PO SCH (08:13)
[2023-09-01] MEDS: CLOPIDOGREL BISULFATE 75 MG TAB PO SCH (08:13)
[2023-09-01] MEDS: METOPROLOL SUCC 50MG EXT REL TAB PO SCH ×2 (08:13→20:07)
[2023-09-01] MEDS: DICLOFENAC SOD 1% GEL 100 GM TUBE EXT SCH ×2 (08:14→20:07)
[2023-09-01] MEDS: FLUTICASONE/VILANTEROL 100/25MCG 14 PUFFS/INHALER INH SCH (08:14)
[2023-09-01] MEDS: APIXABAN 5 MG TABLET PO SCH ×2 (08:14→20:08)
[2023-09-01 08:15] LABS: Calcium 7.3 mg/dl (8.6-10.3)
[2023-09-01] MEDS: traMADol HCL 50 MG TABLET PO PRN (08:20)
[2023-09-01] MEDS: DAPTOmycin 650 MG in SYRINGE 0 ML IV SCH (12:04)
[2023-09-01] MEDS ORDERED: CLINOLIPID 20% IV FAT EMULSION 250 ML IV SCH (16:00)
[2023-09-01] MEDS ORDERED: CENTRAL TPN IV SCH (16:00)
[2023-09-01] MEDS ORDERED: [UNRECOGNIZED DRUG - OTHER] IV SCH (16:00)
[2023-09-01] MEDS ORDERED: FUROSEMIDE INJ 20 MG/2 ML VIAL IV ONE (17:48)
--- NOTE | 2023-09-01 17:51 | Hospitalist Progress Note ---
Date of Service September 01, 2023 Assessment & Plan (1) HTN, goal below 130/80: (2) Complicated UTI (urinary tract infection): (3) Influenza A: Plan: per Dr. Carbajal's notes with addendum: Assessment & Plan (1) Septic shock: (2) E coli bacteremia: (3) Complicated UTI (urinary tract infection): (4) Acute kidney injury superimposed on CKD: (5) Compensated respiratory acidosis: (6) Influenza A: (7) PAF (paroxysmal atrial fibrillation): (8) HTN, goal below 130/80: (9) Pulmonary embolism: (10) CAD (coronary artery disease): Plan 83 year old female presents to the [facility] via EMS from [facility] after having a complex inpatient hospitalization last month from 07/26/23-08/05/23 for septic shock and pyelonephritis with gram negative rods and E. Coli requiring ICU stabilization and inotropic support with Levo. Tested positive for influenza A while at [facility] as well. She started to become short of breath while at [facility] and they had administered 80 mg of IV Lasix with concerns of a CHF exacerbation. She was placed on BiPAP and route. Numerous Comorbidities including: COPD, HFrEF, HTN, HLD, A-fib, history of PE, history of CVA, hypothyroidism, and GERD. Leukocytosis 15.66, creatinine 1.81, procalcitonin 15.58, magnesium 1.7, UTI with leukocyte esterase 3+, WBC greater than 30, Patient is surprisingly AAOx3 and able to have full meaningful conversation and I do not suspect any encephalopathy. She is able to deny headache, dizziness, lightheadedness, chest pain, palpitations, bowel or bladder changes or recent falls. Patient is typically wheelchair-bound but has been working with physical therapy for strengthening. She was lying in her hospital bed with her BiPAP mask on FiO2 50%. We did trial pausing the Levophed however she became hypotensive and her map did not support greater than 65. Patient did tolerate removal of BiPAP mask and maintain saturations greater than 93%. Able to move all extremities and is dry on exam. Per family, patient has not been moving in the right direction since she has been at [facility]; she has decreased appetite and has poor oral fluid intake. Suspect this individual has been over diuresed and with being flu + became hypotensive and SOB. Continued UTI on labs and with visual presentation; continue IV abx taking into consideration renal function. Lengthy conversation with pt and family. Confirmed DNR/DNI. No defib/shock. OK for Bipap and vasopressors. Discussed with ICU Office Correspondent Dr. Byrd. Septic Shock: VRE UTI Acute Leukocytosis 15.66, procalcitonin 15.58 Was started on cefepime in the ED; review of last hospitalization goal was to avoid Vanco due to reduced kidney function. Patient was MRSA positive last admission so we will start Zosyn and await blood culture results Lactate 1.4 MRSA screen has been negative Urine culture is growing VRE Blood cultures are negative so far Hypotensive in route and in ED; just weaned off of Levo. Monitor BP and keep maps greater than 65 Started on intravenous Levophed-Levophed has been discontinued Continued with intravenous Zosyn and added IV azithromycin for respiratory coverage Zosyn discontinued and daptomycin added to cover VRE in urine Clinically stable and getting better without any fever and or chills Remains stable and showing more improvement Remains hemodynamically stable without any fever and no chills and white count has improved Remains very weak and [id number] to start physical therapy Strongly advised to eat and drink more Sugar is noted to be low this morning around 50s and started on small dose of intravenous dextrose with normal saline Updated the family members about very minimal improvement and explained the reasons for that She will have repeat blood cultures and urine culture to make sure there is no infection 09/01 Repeat urine culture: Whitney albicans, 40,000 Review blood culture: Negative x 48 hours Continue with daptomycin IV to complete 2-week course Probiotics daily Generalized weakness, deconditioning 08/28 started TPN 09/01 Appetite still poor despite IV discussion, encouragement Continue TPN 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, 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 Influenza A: Acute Tested positive [facility] per outpatient records; unsure date PCR positive here in ED Supportive treatmentand Tamiflu is not indicated Chest x-ray shows bibasilar infiltration/atelectasis Also on intravenous Zosyn and azithromycin Zosyn has been discontinued and azithromycin will be continued to finish the course to cover possible pneumonia No increasing shortness of breath-requiring 4 L via nasal cannula to maintain saturation Chest x-ray showed pulmonary congestion/multifocal pneumonia Will give a small dose of Lasix for more diuresis Remains little short of breath at rest with wheezing on examination We will discontinue any IV fluid and will give another dose of Lasix of 40 mg IV No shortness of breath at rest XIN on CKD: Acute Serum creatinine 1.81; received Lasix 80 mg this a.m. for SOB Baseline creatinine 0.7-0.9 Avoid nephrotoxic agents Received intravenous fluid crea stable HFrEF: SOB: Acute Compensated respiratory acidosis; pH 7.34, CO2 44, HCO3 24 Received Lasix 80 mg via EMS; On Bipap FiO2 50% Trial removal tolerated; on nasal cannula Suspect SOB related to being Flu + Last ECHO 07/26/2023 with reduced EF 35 to 40% and moderate global akinesis Requiring 4 L to maintain saturation Chest x-ray shows mild congestion and will give 20 of Lasix IV x 1 Has been positive balance of 5400 mL Received 20 of intravenous Lasix this morning and is still complaining of some wheezing and minimal shortness of breath at rest We will discontinue intravenous fluid and give another dose of Lasix of 40 mg Cautious amount of intravenous dextrose and normal saline given to improve blood glucose level 09/01 Lasix 20 mg IV today Anemia No overt bleeding Could be secondary to sepsis Hemoglobin dropped to 6.6 in part complicated by IV fluid and dilution Will be receiving 1 to 2 units of blood transfusion Will monitor CBC-hemoglobin remains stable at 8.4 No more evidence of bleeding and hemoglobin remained stable Hemoglobin 7.9--> 8.5 Atrial Fibrillation: Chronic Takes Eliquis and Metoprolol; continue Eliquis on hold due to low hemoglobin and requiring blood transfusion Short episode of A-fib with RVR and started on intravenous amiodarone Reverted to sinus rhythm and amiodarone has been discontinued Was on beta-hayden before and will restart gradually Beta-hayden has been restarted with 25 mg twice daily Will increase the dose to 50 mg twice daily in a day or 2 when blood pressure is more stable Eliquis has been restarted Remains stable HLD: Chronic Takes atorvastatin; continue Hypothyroidism: Chronic Takes Levothyroxine; continue GERD: Chronic Takes Pantoprazole;continue Disposition: PCP: Dr. Salas Code Status: DNR/DNI VTE Prophylaxis: On Eliquis Admission and Anticipated Discharge Date Admission Date: August 20, 2023 Subjective Follow-up for weakness, sepsis, UTI, etc. Seen resting in bed, comfortable, not in distress States she feels okay overall Still on the weak side Denies shortness of breath, has intermittent dry cough Appetite still poor, declining meals-just not hungry, no interest in eating as per PT No other new symptoms Review of Systems Review of Systems: all noted and negative except for above Physical Exam Physical Exam: General- oriented x 3, not in distress, speaks in sentences with no effort or accessory muscle use Eyes- anicteric Neck- no JVD Lungs-mild crackles at the bases, no wheeze Heart- normal rate, regular rhythm; no murmurs Abdomen- normal bowel sounds, nondistended, soft, nontender Extremities- no pretibial edema, no calf tenderness Neuro- alert, oriented x 3; no gross focal neurologic deficits Skin- warm & dry Results & Data Results & Data Vital Signs (Past 12 Hours) Vital Signs Temp Pulse Pulse Resp BP Pulse Ox O2 Del Method 09/01/23 15:34 36.2 C L 89 18 122/74 91 Room Air 09/01/23 11:34 36.5 C 73 18 119/73 97 Nasal Cannula 09/01/23 08:00 Nasal Cannula 09/01/23 08:00 78 09/01/23 07:51 36.3 C L 78 16 127/71 96 Nasal Cannula O2 Flow Rate 09/01/23 15:34 09/01/23 11:34 2 09/01/23 08:00 2 09/01/23 08:00 09/01/23 07:51 2 all noted and reviewed including below
[2023-09-01] MEDS: MONTELUKAST SODIUM 10 MG TABLET PO SCH (20:09)
[2023-09-01] MEDS: STOP CLINOLIPID SCH (22:39)
[2023-09-02] MEDS: ALBUTEROL 0.083% NEBU SOLN 3 ML VIAL NEB PRN (02:51)
[2023-09-02] MEDS: LEVOTHYROXINE SODIUM 50 MCG TABLET PO SCH (06:16)
[2023-09-02 08:06] LABS: BUN Creatinine Ratio 39.7 (10-20); Calcium 7.7 mg/dl (8.6-10.3); Creatinine Clr Calc Pharmacy 62.3 ml/min; Est GFR (African American) 89.5 ml/min; Est GFR (Non-African American) 77.2 ml/min; Phosphorus 3.6 mg/dl (2.5-4.9)
[2023-09-02] MEDS: APIXABAN 5 MG TABLET PO SCH (08:08)
[2023-09-02] MEDS: DULoxetine HCL 60 MG CAP PO SCH (08:08)
[2023-09-02] MEDS: CLOPIDOGREL BISULFATE 75 MG TAB PO SCH (08:08)
[2023-09-02] MEDS: METOPROLOL SUCC 50MG EXT REL TAB PO SCH (08:09)
[2023-09-02] MEDS: FLUTICASONE/VILANTEROL 100/25MCG 14 PUFFS/INHALER INH SCH (08:09)
[2023-09-02] MEDS: PANTOprazole 40 MG TAB PO SCH (08:09)
[2023-09-02] MEDS: DICLOFENAC SOD 1% GEL 100 GM TUBE EXT SCH (08:09)
--- NOTE | 2023-09-02 11:22 | Pharmacy Report ---
Pharmacy PN Follow-up Note - Date of Service September 02, 2023 - Subjective Patient is currently on day #6 of TPN - Objective Height & Weight (Last Documented) Height 5 ft 1 in Weight 91.626 kg Diet Order(s) 08/23/23 Breakfast Diet Intake & Ouput (24hrs) 09/01/23 09/02/23 09/03/23 06:59 06:59 06:59 Intake Total 1564 / 1564 1524 / 1524 Output Total 577 / 577 1350 / 1350 Balance 987 / 987 174 / 174 Selected Laboratory Results 09/02/23 07:14 Sodium 137 Potassium 4.0 D Chloride 107 Carbon Dioxide 27 Anion Gap 3 BUN 29 H Creatinine 0.73 Est GFR ( Amer) 89.5 Est GFR (Non-Af Amer) 77.2 BUN/Creatinine Ratio 39.7 H Glucose 102 H Calcium 7.7 L Phosphorus 3.6 Magnesium 2.0 - Assessment & Plan Assessment: * Patient continues with TPN, due to very poor PO intake. * K trending down, was held in TPN yesterday due to elevated value 5.2. Patient received lasix 20 mg iv x 1 yesterday evening. K this AM 4.0 - will add conservative 20 meq in today's TPN. May need to remove K for following bag, especially if no diuretics given * Phos continues to trend up gradually each day, will scale back slightly with today's bag * All other electrolytes WNL Plan: * For Day #6 of TPN administration, the following will be ordered: * Macronutrients: * Amino Acids: 80 grams/day * Dextrose: 140 grams/day * Lipids: 50 grams/day * Micronutrients: * Sodium phosphate: 27 mMol/day * Sodium chloride: 30 mEq/day * Sodium acetate: 100 mEq/day * Potassium acetate: 20 mEq/day * Magnesium sulfate: 8.12 mEq/day * Calcium gluconate: 4.65 mEq/day * Multivitamins: 10 mL/day * Trace elements: 1 mL/day * Thiamine: 100 mg/day * Total volume of 1105 mL will be infused over 24 hours and will provide 1296 kcal/day * Labs will be ordered per PN protocol. * Pharmacy will follow and adjust PN orders on a daily basis. Thank you!
[2023-09-02] MEDS ORDERED: DAPTOmycin 650 MG in SYRINGE 0 ML IV ONE (14:28)
--- NOTE | 2023-09-02 14:52 | Discharge Summary ---
Discharge Summary Date of Service September 02, 2023 Notes For Next Care Provider Continue daptomycin 600 mg IV daily x 3 more days to complete 14-day course. Continue Lasix 20 mg once a day, every Saturday and Saturday, and as needed for leg edema, pulmonary congestion. Continue TPN daily until patient's oral intake improves. Patient needs to be closely followed by the profile trimmer. Strict turning every 2 hours to prevent progression of buttock wounds and sacral decubitus ulcers. Daily wound care. Please see assessment and plan below for full details Medication Changes From Visit Please see medical reconciliation form Admission HPI Per Admitting Provider 83 year old female presents to the [facility] via EMS from [facility] after having a complex inpatient hospitalization last month from 07/26/23-08/05/23 for septic shock and pyelonephritis with gram negative rods and E. Coli requiring ICU stabilization and inotropic support with Levo. Tested positive for influenza A while at [facility] as well. She started to become short of breath while at [facility] and they had administered 80 mg of IV Lasix with concerns of a CHF exacerbation. She was placed on BiPAP and route. Numerous Comorbidities including: COPD, HFrEF, HTN, HLD, A-fib, history of PE, history of CVA, hypothyroidism, and GERD. Leukocytosis 15.66, creatinine 1.81, procalcitonin 15.58, magnesium 1.7, UTI with leukocyte esterase 3+, WBC greater than 30, Per family, patient has not been moving in the right direction since she has been at [facility]; she has decreased appetite and has poor oral fluid intake. Suspect this individual has been over diuresed and with being flu + became hypotensive and SOB. Continued UTI on labs and with visual presentation; continue IV abx taking into consideration renal function. Patient is surprisingly AAOx3 and able to have full meaningful conversation and I do not suspect any encephalopathy. She is able to deny headache, dizziness, lightheadedness, chest pain, palpitations, bowel or bladder changes or recent falls. Patient is typically wheelchair-bound but has been working with physical therapy for strengthening. She was lying in her hospital bed with her BiPAP mask on FiO2 50%. We did trial pausing the Levophed however she became hypotensive and her map did not support greater than 65. Patient did tolerate removal of BiPAP mask and maintain saturations greater than 93%. Able to move all extremities and is dry on exam. Lengthy conversation with pt and family. Confirmed DNR/DNI. No defib/shock. OK for Bipap and vasopressors. Discussed with ICU Swim Instructor Dr. Byrd. Patient will be admitted for further evaluation and management. Please see A/P for further details. Admission Exam Per Admitting Provider Neuro: AAOx4, PERRLA, no aphagia, memory changes, CNII-XII grossly intact HEENT: head normocephalic, dry mucus membranes CV: S1/S2, (-) M/G/R, (-) edema, cap refill < 3 seconds Resp: Lungs CTA in all gilbert. On Bipap FiO2 0.50 GI: Abdomen S/NT/ND, Ax4 bowel sounds, (-) CVA tenderness Musculoskeletal: 5/5 B/L UE strength, 5/5 B/L LE strength. No gait disturbance Skin: (-) rashes , (-) erythema. (+) ecchymosis Psych: euthymic mood Principal Dx & Hospital Course #1 = Principal Diagnosis (1) HTN, goal below 130/80: (2) Complicated UTI (urinary tract infection): (3) Influenza A: per Dr. Carbajal's notes with addendum: Assessment & Plan (1) Septic shock: (2) E coli bacteremia: (3) Complicated UTI (urinary tract infection): (4) Acute kidney injury superimposed on CKD: (5) Compensated respiratory acidosis: (6) Influenza A: (7) PAF (paroxysmal atrial fibrillation): (8) HTN, goal below 130/80: (9) Pulmonary embolism: (10) CAD (coronary artery disease): Plan 83 year old female presents to the [facility] via EMS from [facility] after having a complex inpatient hospitalization last month from 07/26/23-08/05/23 for septic shock and pyelonephritis with gram negative rods and E. Coli requiring ICU stabilization and inotropic support with Levo. Tested positive for influenza A while at [facility] as well. She started to become short of breath while at [facility] and they had administered 80 mg of IV Lasix with concerns of a CHF exacerbation. She was placed on BiPAP and route. Numerous Comorbidities including: COPD, HFrEF, HTN, HLD, A-fib, history of PE, history of CVA, hypothyroidism, and GERD. Leukocytosis 15.66, creatinine 1.81, procalcitonin 15.58, magnesium 1.7, UTI with leukocyte esterase 3+, WBC greater than 30, Patient is surprisingly AAOx3 and able to have full meaningful conversation and I do not suspect any encephalopathy. She is able to deny headache, dizziness, lightheadedness, chest pain, palpitations, bowel or bladder changes or recent falls. Patient is typically wheelchair-bound but has been working with physical therapy for strengthening. She was lying in her hospital bed with her BiPAP mask on FiO2 50%. We did trial pausing the Levophed however she became hypotensive and her map did not support greater than 65. Patient did tolerate removal of BiPAP mask and maintain saturations greater than 93%. Able to move all extremities and is dry on exam. Per family, patient has not been moving in the right direction since she has been at [facility]; she has decreased appetite and has poor oral fluid intake. Suspect this individual has been over diuresed and with being flu + became hypotensive and SOB. Continued UTI on labs and with visual presentation; continue IV abx taking into consideration renal function. Lengthy conversation with pt and family. Confirmed DNR/DNI. No defib/shock. OK for Bipap and vasopressors. Discussed with ICU Swim Instructor Dr. Byrd. Septic Shock: VRE UTI Acute Leukocytosis 15.66, procalcitonin 15.58 Was started on cefepime in the ED; review of last hospitalization goal was to avoid Vanco due to reduced kidney function. Patient was MRSA positive last admission so we will start Zosyn and await blood culture results Lactate 1.4 MRSA screen has been negative Urine culture is growing VRE Blood cultures are negative Patient admitted to the intensive care unit, placed on IV Levophed Initially placed on IV Zosyn Zosyn discontinued and daptomycin added to cover VRE in urine Remains hemodynamically stable without any fever and no chills and white count has improved Remains very weak and lethargic Repeat urine culture: Whitney albicans, 40,000 Repeat blood culture: Negative x 48 hours Continue with daptomycin IV x 4 more days to complete 2-week course Probiotics daily x 1 month Generalized weakness, deconditioning, poor oral intake Patient's appetite during admission has been extremely poor 08/28 started TPN 09/02 Appetite still poor despite extensive discussion, encouragement Director Of Materials Management on board Continue TPN until appetite improves Will need close monitoring from profile trimmer Influenza A: Acute Tested positive [facility] per outpatient records; unsure date PCR positive here in ED Supportive treatmentand Tamiflu is not indicated Chest x-ray shows bibasilar infiltration/atelectasis Chest x-ray showed pulmonary congestion/multifocal pneumonia On room air Respiratory status stable Discharge on Lasix 20 mg 3 times a week Saturday/Saturday And as needed for pulmonary congestion and edema Repeat chest x-ray in 2 to 3 days XIN on CKD: Acute Serum creatinine 1.81 Baseline creatinine 0.7-0.9 Avoid nephrotoxic agents Received intravenous fluid Resolved crea stable HFrEF: SOB: Acute Compensated respiratory acidosis; pH 7.34, CO2 44, HCO3 24 Received Lasix 80 mg via EMS; On Bipap FiO2 50% Trial removal tolerated; on nasal cannula Suspect SOB related to being Flu + Last ECHO 07/26/2023 with reduced EF 35 to 40% and moderate global akinesis Requiring 4 L to maintain saturation Chest x-ray shows mild congestion and will give 20 of Lasix IV x 1 Received IV Lasix intermittently 09/02 Discharge on Lasix 20 mg 3 times a week Saturday/Saturday And as needed for pulmonary congestion and edema Monitor volume status closely Repeat chest x-ray in 2 to 3 days Wean off oxygen accordingly Anemia No overt bleeding Could be secondary to sepsis Hemoglobin dropped to 6.6 in part complicated by IV fluid and dilution Received packed RBCs Will monitor CBC-hemoglobin remains stable at 8.4 No more evidence of bleeding and hemoglobin remained stable Hemoglobin 7.9--> 8.5 Atrial Fibrillation: Chronic Takes Eliquis and Metoprolol; continue Eliquis on hold due to low hemoglobin and requiring blood transfusion Short episode of A-fib with RVR and started on intravenous amiodarone Reverted to sinus rhythm and amiodarone has been discontinued Was on beta-hayden before and will restart gradually Beta-hayden has been restarted with 25 mg twice daily Discharge on metoprolol 50 mg twice daily Eliquis has been restarted Remains stable HLD: Chronic Takes atorvastatin; continue Hypothyroidism: Chronic Takes Levothyroxine; continue GERD: Chronic Takes Pantoprazole;continue Disposition: PCP: Dr. Salas Code Status: DNR/DNI VTE Prophylaxis: On Eliquis Discharge to acute rehab Discharge Exam General- oriented x 3, not in distress, speaks in sentences with no effort or accessory muscle use Eyes- anicteric Neck- no JVD Lungs-faint intermittent rales bilateral bases, no rales/wheezes Heart- normal rate, regular rhythm; no murmurs Abdomen- normal bowel sounds, nondistended, soft, nontender Extremities- no pretibial edema, no calf tenderness Neuro- alert, oriented x 3; no gross focal neurologic deficits Skin- warm & dry Updated Medication List Medication Instructions Recorded Confirmed Type Sodium Chloride 9%, 1,000ml 75 ml IV .HOUR 08/20/23 08/20/23 History acetaminophen 325 mg tablet 650 mg PO Q4 PRN Pain 08/20/23 08/20/23 History (Tylenol) albuterol sulfate 90 mcg/actuation 2 puff inhalation Q4 PRN Shortness 08/20/23 08/20/23 History aerosol inhaler Of Breath Or Wheezing apixaban 5 mg tablet (Eliquis) 5 mg PO BID 08/20/23 08/20/23 History ascorbic acid (vitamin C) 500 mg 250 mg PO DAILY 08/20/23 08/20/23 History tablet (Vitamin C) atorvastatin 20 mg tablet 20 mg PO DAILY 08/20/23 08/20/23 History cefdinir 300 mg capsule 300 mg PO Q12H 08/20/23 08/20/23 History cholecalciferol (vitamin D3) 25 25 mcg PO DAILY 08/20/23 08/20/23 History mcg (1,000 unit) tablet clopidogrel 75 mg tablet 75 mg PO DAILY 08/20/23 08/20/23 History dextromethorphan-guaifenesin 30 1 tab PO BID 08/20/23 08/20/23 History mg-600 mg tablet extended hr (Mucinex DM) docusate sodium 100 mg capsule 100 mg PO BID 08/20/23 08/20/23 History duloxetine 30 mg capsule,delayed 60 mg PO BID 08/20/23 08/20/23 History release sprinkle ferrous sulfate 325 mg (65 mg 325 mg PO DAILY 08/20/23 08/20/23 History iron) tablet fluticasone furoate 100 1 inh inhalation DAILY 08/20/23 08/20/23 History mcg-vilanterol 25 mcg/dose inhalation powder (Breo Ellipta) gabapentin 300 mg capsule 300 mg PO TID 08/20/23 08/20/23 History ipratropium 0.5 mg-albuterol 3 mg 3 ml inhalation QID 08/20/23 08/20/23 History (2.5 mg base)/3 mL nebulization soln lasmiditan 50 mg tablet (Reyvow) 50 mg PO DAILY PRN Migraine 08/20/23 08/20/23 History Headache levothyroxine 50 mcg tablet 50 mcg PO DAILY 08/20/23 08/20/23 History magnesium oxide 400 mg PO BIDM 08/20/23 08/20/23 History metoprolol succinate 50 mg 50 mg PO BID 08/20/23 08/20/23 History tablet,extended release 24 hr miconazole nitrate 2 % topical 1 applic topical BID 08/20/23 08/20/23 History powder montelukast 10 mg tablet 10 mg PO HS 08/20/23 08/20/23 History ondansetron HCl 4 mg tablet 4 mg PO Q4 PRN Nausea 08/20/23 08/20/23 History pantoprazole 40 mg tablet,delayed 40 mg PO QAM 08/20/23 08/20/23 History release polyethylene glycol 3350 17 gram 17 g PO DAILY PRN Constipation 08/20/23 08/20/23 History oral powder packet (Miralax) sennosides 8.6 mg-docusate sodium 1 tab-cap PO .DAILY@LUNCH PRN 08/20/23 08/20/23 History 50 mg tablet (Senokot-S) Constipation tramadol 50 mg tablet 50 mg PO Q12 PRN Pain 08/20/23 08/20/23 History furosemide 20 mg tablet 20 mg PO UD #30 tabs 09/02/23 Rx Hospital Stay Data Consultations 08/20/23 12:20 ED Decision to Admit Stat 08/20/23 13:23 Consult Swim Instructor Routine Diagnostic Imagining Performed Laboratory Results WBC 6.73 K/ul (4.8-10.8) 08/29/23 06:43 RBC 2.53 M/uL (4.20-5.40) L 08/29/23 06:43 Hgb 8.5 g/dl (12.0-16.0) L 08/29/23 06:43 Hct 27.4 % (37.0-47.0) L 08/29/23 06:43 MCV 108.3 fL (80.0-100.0) H 08/29/23 06:43 MCH 33.6 pg (25.0-34.0) 08/29/23 06:43 MCHC 31.0 g/dL (32.0-36.0) L 08/29/23 06:43 RDW Std Deviation 69.1 fL (36.4-46.3) H 08/29/23 06:43 RDW Coeff of Vijay 17.3 % (11.5-14.5) H 08/29/23 06:43 Plt Count 230 K/uL (130-400) 08/29/23 06:43 MPV 10.7 fL (9.4-12.4) 08/29/23 06:43 Immature Gran % (Auto) 0.9 % 08/29/23 06:43 Neut % (Auto) 73.4 % 08/29/23 06:43 Lymph % (Auto) 16.5 % 08/29/23 06:43 Beckham % (Auto) 5.8 % 08/29/23 06:43 Eos % (Auto) 3.0 % 08/29/23 06:43 Baso % (Auto) 0.4 % 08/29/23 06:43 Reticulocyte % (Auto) 2.4 % (0.5-2.0) H 08/21/23 20:28 Neut # (Auto) 4.94 K/uL (1.40-6.50) 08/29/23 06:43 Lymph # (Auto) 1.11 K/uL (1.20-3.40) L 08/29/23 06:43 Beckham # (Auto) 0.39 K/uL (0.11-0.59) 08/29/23 06:43 Eos # (Auto) 0.20 K/uL (0.00-0.50) 08/29/23 06:43 Baso # (Auto) 0.03 K/uL (0.00-0.20) 08/29/23 06:43 Reticulocyte # 0.07 10^6/uL (0.02-0.10) 08/21/23 20:28 Immature Gran # (Auto) 0.06 K/uL (0.01-0.20) 08/29/23 06:43 RBC Morphology Unremarkable 08/28/23 05:49 Polychromasia 1+ 08/22/23 02:20 Macrocytosis Present 08/20/23 09:57 Echinocytes 1+ 08/22/23 02:20 PT 14.4 Seconds (9.0-12.0) H 08/20/23 09:57 INR 1.3 (0.9-1.1) H 08/20/23 09:57 VBG pH 7.34 (7.36-7.41) L 08/20/23 09:57 VBG pCO2 44 mmHg (38-50) 08/20/23 09:57 VBG pO2 23 mmHg 08/20/23 09:57 VBG HCO3 24 mmol/L 08/20/23 09:57 VBG O2 Saturation < 60.0 % 08/20/23 09:57 VBG Base Excess -2.2 mEq/L 08/20/23 09:57 Sodium 137 mmol/L (136-145) 09/02/23 07:14 Potassium 4.0 mmol/L (3.5-5.1) D 09/02/23 07:14 Chloride 107 mmol/L (98-107) 09/02/23 07:14 Carbon Dioxide 27 mmol/L (21-32) 09/02/23 07:14 Anion Gap 3 (3-11) 09/02/23 07:14 BUN 29 mg/dl (6-23) H 09/02/23 07:14 Creatinine 0.73 mg/dl (0.6-1.2) 09/02/23 07:14 Est Cr Clr Drug Dosing 62.3 ml/min 09/02/23 07:14 Est GFR ( Amer) 89.5 ml/min 09/02/23 07:14 Est GFR (Non-Af Amer) 77.2 ml/min 09/02/23 07:14 BUN/Creatinine Ratio 39.7 (10-20) H 09/02/23 07:14 Glucose 102 mg/dl (70-99(Fasting)) H 09/02/23 07:14 POC Glucose 101 mg/dl (70-99) H 09/02/23 11:16 Lactate 1.4 mmol/L (0.4-2.0) 08/20/23 13:23 Calcium 7.7 mg/dl (8.6-10.3) L 09/02/23 07:14 Ionized Calcium 1.02 mmol/L (1.12-1.32) L 08/22/23 02:20 Phosphorus 3.6 mg/dl (2.5-4.9) 09/02/23 07:14 Magnesium 2.0 mg/dl (1.7-2.4) 09/02/23 07:14 Total Bilirubin 1.1 mg/dl (0.2-1.0) H 08/21/23 04:15 Direct Bilirubin 0.4 mg/dl (0-0.2) H 08/20/23 09:57 AST 12 U/L (13-39) L 08/21/23 04:15 ALT 4 U/L (7-52) L 08/21/23 04:15 Alkaline Phosphatase 47 U/L (34-104) 08/21/23 04:15 Total Creatine Kinase 14 U/L (26-192) L 08/27/23 06:54 Troponin I High Sens 54.1 pg/ml (0-14) H* D 08/20/23 11:44 Total Protein 5.2 gm/dl (6.0-8.3) L 08/21/23 04:15 Albumin 2.0 gm/dl (3.4-5.0) L 08/28/23 05:49 Globulin 2.8 gm/dl (2.5-4.0) 08/21/23 04:15 Albumin/Globulin Ratio 0.9 (0.9-2) 08/21/23 04:15 Triglycerides 114 mg/dl (0-150) 08/29/23 06:29 Procalcitonin 16.35 ng/ml (0-0.5) H 08/21/23 04:15 Urine Color Dark Yellow 08/20/23 10:12 Urine Appearance Turbid (Clear) A 08/20/23 10:12 Urine pH 5.0 (4.5-7.5) 08/20/23 10:12 Ur Specific [place] 1.018 (1.000-1.030) 08/20/23 10:12 Urine Protein 1+ (Negative) H 08/20/23 10:12 Urine Glucose (UA) Negative (Negative) 08/20/23 10:12 Urine Ketones Trace (Negative) H 08/20/23 10:12 Urine Blood 3+ (Negative) H 08/20/23 10:12 Urine Nitrite Negative (Negative) 08/20/23 10:12 Urine Bilirubin 1+ (Negative) H 08/20/23 10:12 Urine Urobilinogen Negative (Negative) 08/20/23 10:12 Ur Leukocyte Esterase 3+ (Negative) H 08/20/23 10:12 Urine WBC (Auto) >30 /hpf (0-5) H 08/20/23 10:12 Urine RBC (Auto) 10-30 /hpf (0-4) H 08/20/23 10:12 U Hyaline Cast (Auto) 1-5 /lpf (0-5) 08/20/23 10:12 U Epithel Cells (Auto) 20-30 /lpf (0-5) H 08/20/23 10:12 Urine Bacteria (Auto) 1+ (Negative) H 08/20/23 10:12 Urine Yeast Not Reportable 08/20/23 10:12 Nasal Influ A H1 2008 PCR DETECTED (NotDetected) A* 08/20/23 10:04 Nasal Screen MRSA (PCR) Negative (Negative) 08/20/23 15:25 Stool Occult Bld Scrn Negative (Negative) 08/20/23 16:23 Stl C. cayetanensis PCR Not Detected (NotDetected) 08/20/23 16:23 Stool Rotavirus A PCR Not Detected (NotDetected) 08/20/23 16:23 Stl Adenov F 40/41 PCR Not Detected (NotDetected) 08/20/23 16:23 Stool Astrovirus (PCR) Not Detected (NotDetected) 08/20/23 16:23 Stool Campylobacter PCR Not Detected (NotDetected) 08/20/23 16:23 Stl C. diff Tox B Gene Negative Cdiff Gene (Neg) 08/27/23 16:06 Stool Cryptosporidium PCR Not Detected (NotDetected) 08/20/23 16:23 Stl E.coli Shiga Tox PCR Not Detected (NotDetected) 08/20/23 16:23 Stl Enterotoxigenic E PCR Not Detected (NotDetected) 08/20/23 16:23 Stool EPEC (PCR) DETECTED (NotDetected) A* 08/20/23 16:23 Stool EAEC (PCR) Not Detected (NotDetected) 08/20/23 16:23 Stl E. histolytica PCR Not Detected (NotDetected) 08/20/23 16:23 Stool Giardia Lamblia PCR Not Detected (NotDetected) 08/20/23 16:23 Stool Salmonella PCR Not Detected (NotDetected) 08/20/23 16:23 Stool Sapovirus (PCR) Not Detected (NotDetected) 08/20/23 16:23 Stl P. shigelloides PCR Not Detected (NotDetected) 08/20/23 16:23 Stl Shigella/EIEC PCR Not Detected (NotDetected) 08/20/23 16:23 St Y.enterocolitica PCR Not Detected (NotDetected) 08/20/23 16:23 Stool Vibrio (PCR) Not Detected (NotDetected) 08/20/23 16:23 Stl Vibrio cholerae PCR Not Detected (NotDetected) 08/20/23 16:23 Stl Norovirus GI/GII PCR Not Detected (NotDetected) 08/20/23 16:23 Random Vancomycin 17.0 mcg/ml (10-20) 08/21/23 04:15 Adenovirus (PCR) Not Detected (NotDetected) 08/20/23 10:04 B. pertussis DNA (PCR) Not Detected (NotDetected) 08/20/23 10:04 B.parapertussis DNA PCR Not Detected (NotDetected) 08/20/23 10:04 C. pneumoniae DNA (PCR) Not Detected (NotDetected) 08/20/23 10:04 Coronavirus OC43 (PCR) Not Detected (NotDetected) 08/20/23 10:04 Coronavirus HKU1 (PCR) Not Detected (NotDetected) 08/20/23 10:04 Coronavirus 229E (PCR) Not Detected (NotDetected) 08/20/23 10:04 SARS-CoV-2 (PCR) Not Detected (NotDetected) 08/20/23 10:04 Coronavirus NL63 (PCR) Not Detected (NotDetected) 08/20/23 10:04 Human Metapneumovir PCR Not Detected (NotDetected) 08/20/23 10:04 Influenza Type B (PCR) Not Detected (NotDetected) 08/20/23 10:04 M. pneumoniae (PCR) Not Detected (NotDetected) 08/20/23 10:04 Parainfluenza 1 (PCR) Not Detected (NotDetected) 08/20/23 10:04 Parainfluenza 2 (PCR) Not Detected (NotDetected) 08/20/23 10:04 Parainfluenza 3 (PCR) Not Detected (NotDetected) 08/20/23 10:04 Parainfluenza 4 (PCR) Not Detected (NotDetected) 08/20/23 10:04 RSV (PCR) Not Detected (NotDetected) 08/20/23 10:04 Entero/Rhino (PCR) Not Detected (NotDetected) 08/20/23 10:04 Blood Type A Positive 08/21/23 11:12 Antibody Screen NEGATIVE 08/21/23 11:12 Crossmatch See Detail 08/21/23 11:12 Impressions Abdomen/Pelvis CT 08/20/23 16:12 Exam(s): CT ABDOMEN + PELVIS Without Contrast EXAM: CT Abdomen and Pelvis Without Intravenous Contrast CLINICAL HISTORY: Sepsis. TECHNIQUE: Axial computed tomography images of the abdomen and pelvis without intravenous contrast. CTDI is 22.12 mGy and DLP is 1389 mGy-cm. Automated exposure control was utilized for the study. A dose lowering technique was utilized adhering to the principles of ALARA. COMPARISON: CT abdomen and pelvis 07/27/2023 FINDINGS: ABDOMEN: Liver: Unremarkable. Gallbladder and bile ducts: Unremarkable. No calcified stones. No ductal dilation. Pancreas: Unremarkable. No ductal dilation. Spleen: Unremarkable. No splenomegaly. Adrenals: Unremarkable. No mass. Kidneys and ureters: There is new inflammatory stranding surrounding the right pelvis concerning for ascending infection. Stable postsurgical changes of the right kidney with a chronic right-sided capsular hematoma. No obstructing stones. No hydronephrosis. Stomach and bowel: Unremarkable. No obstruction. No mucosal thickening. PELVIS: Appendix: No findings to suggest acute appendicitis. Bladder: The urinary bladder is decompressed secondary to a Waddell catheter. No stones. Reproductive: Unremarkable as visualized. ABDOMEN and PELVIS: Intraperitoneal space: Unremarkable. No free air. No significant fluid collection. Bones/joints: Degenerative changes spine. Stable chronic T12 and L3 compression fracture. No dislocation. Soft tissues: Unremarkable. Vasculature: Mild atherosclerotic disease. No abdominal aortic aneurysm. Lymph nodes: Unremarkable. No enlarged lymph nodes. Other findings: There is elevation of the right hemidiaphragm. IMPRESSION: 1. There is new inflammatory stranding surrounding the right pelvis concerning for ascending infection. 2. Mild atherosclerotic disease. Electronically signed by: Becca Smart MD 08/20/23 20:[address] 08/20/23 16:13 Exam(s): CT CHEST Without Contrast EXAM: CT Chest Without Intravenous Contrast CLINICAL HISTORY: Shortness of breath. TECHNIQUE: Axial computed tomography images of the chest without intravenous contrast. CTDI is 22.12 mGy and DLP is 1389 mGy-cm. Automated exposure control was utilized for the study. A dose lowering technique was utilized adhering to the principles of ALARA. COMPARISON: Chest radiograph 07/27/2023 FINDINGS: Lungs: Basilar airspace opacities in addition to subtle reticulonodular densities of the upper lobe are concerning for multifocal pneumonia and/or aspiration. Superimposed bibasilar atelectasis is suspected. Pleural space: Unremarkable. No pneumothorax. No significant effusion. Heart: Unremarkable. No cardiomegaly. No significant pericardial effusion. No significant coronary artery calcifications. Bones/joints: There are degenerative changes of the spine. No acute fracture. Chronic T12 compression fracture. No dislocation. Soft tissues: Unremarkable. Vasculature: Unremarkable. No thoracic aortic aneurysm. Lymph nodes: Unremarkable. No enlarged lymph nodes. Upper abdomen: There is elevation of the right hemidiaphragm. IMPRESSION: 1. Basilar airspace opacities in addition to subtle reticulonodular densities of the upper lobe are concerning for multifocal pneumonia and/or aspiration. Superimposed bibasilar atelectasis is suspected. 2. There is elevation of the right hemidiaphragm. Electronically signed by: Becca Smart MD 08/20/23 20:11 PM Chest X-Ray 08/28/23 10:55 XR chest 1V portable HISTORY: ff up pneumonia, r/o pleural effusion COMPARISON: Chest 08/24/2023. FINDINGS: A left PICC terminates in the expected location of the proximal SVC. No pneumothorax. Degenerative changes again noted within the shoulders. No acute fractures. Pulmonary edema and bilateral pleural effusions persist. Patchy densities at the lung bases remain unchanged. IMPRESSION: 1. No change in the mild interstitial pulmonary edema and small bilateral pleural effusions. 2. Bibasilar densities persist. This may represent a pneumonia. ACT 112: Negative or not required by law. Electronically signed by: Clyde Jensen M.D. 08/28/2023 1:26 PM Pending Results Patient Have Any Pending Studies at Discharge: No Discharge Instructions Given to Patient (Per Discharging Provider) Continue daptomycin 600 mg IV daily x 3 more days to complete 14-day course. Continue Lasix 20 mg once a day, 3 times a week every Saturday, Saturday and Saturday, and as needed for leg edema, pulmonary congestion. Hold for systolic blood pressure less than 110. Continue TPN daily until patient's oral intake improves. Patient needs to be closely followed by the profile trimmer. Strict turning every 2 hours to prevent progression of buttock wounds and sacral decubitus ulcers. Daily wound care. Please refer to accompanying hospital discharge summary for full details. Total Time Total Time Spent Total Time Spent (In Minutes): >30 minutes
[2023-09-02] MEDS ORDERED: CLINOLIPID 20% IV FAT EMULSION 250 ML IV SCH (16:00)
[2023-09-02] MEDS ORDERED: [UNRECOGNIZED DRUG - OTHER] IV SCH (16:00)
[2023-09-02] MEDS ORDERED: CENTRAL TPN IV SCH (16:00)
== END 2023-09-02 16:10 | DRG 871 ==
LOC: ED 09:40 → SUATTDRO 13:23 → 1E 13:23 → 2S 08-24 18:12

== ENCOUNTER 2023-09-04 02:10 | Inpatient (IN) ==
--- OUTSIDE RECORDS SUMMARY | 2023-09-04 02:17 | External Medical Summary | Summary of Care ---
Author Name Unknown Organization [facility] Address [address] [facility] [address] Phone [phone] Care Team Providers Care Director Content Marketing Name Role Phone Giorgio Salas DO Primary Care Provider [phone] Reason for Visit * Reason Onset Date Comments Medication Refill 08/22/2023 Encounter Details Date Type Department Care Team (Late st Contact Info) Description 08/22/2023 Refill Family Practice [facility] [place] [address] [facility] [place] [address] Giorgio Salas DO [address] [facility] [place] [address] Allergies Active Allergy Reactions Criticality Noted Date Comments Salicylates Itching 11/27/1999 Aspirin Sulfa Antibiotics Other (Please comment) 1998 Unsure, happened during a hospital admission. documented as of this encounter (statuses as of 08/22/2023) Medications Medication Sig Dispensed Refills Start Date [...] TWICE DAILY 180 Tablet 3 08/27/2022 Active Albuterol Sulfate HFA 108 (90 Base) MCG/ACT Inhalation Aerosol SolutionIndications :Mild persistent asthma without complication INHALE TWO PUFFS BY MOUTH EVERY FOUR HOURS NEEDED FOR WHEEZING 18 g 3 10/04/2022 Active Fluticasone-Salmete rol 100-50 MCG/ACT Inhalation Aerosol Powder Breath Activated (Advair Diskus) Inhale 1 Puff by mouth in the morning and 1 Puff before bedtime. 60 Each 11 10/03/2022 Active Nystatin 916463 UNIT/GM External Cream Apply topically to affected [...] the morning. 90 Tablet 3 08/16/2023 Active Atorvastatin Calcium 20 MG Oral Tablet (Lipitor) Take 1 Tablet by mouth in the morning. 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 Anticoagulation management encounter 02/23/2002 History of DVT (deep vein thrombosis) 02/23/2002 History of pulmonary embolism 02/23/2002 documented as of this encounter (statuses as of 08/22/2023) Resolved Problems Problem Noted Date Diagnosed Date [...] as of this encounter (statuses as of 08/22/2023) Immunizations Name Administration Dates Next Due COVID-19 mRNA, LNP-s, No Pre serve, 2-Dose Series (Knip) 08/29/2021,12/30/2020,12/07/2020 H1N1 2009 Influenza, IM 10/17/2009 PPD [...] encounter Miscellaneous Notes * Telephone Encounter - Nayla Bentley III, MD - 08/22/2023 12:52 PM ESTSigned Prescriptions: Disp Refills Atorvastatin Calcium 20 MG Oral Tablet (Li*90 Tab*3 Sig: Take 1 Tablet by mouth in the morning.Authorizing Provider: NAYLA BENTLEY III * Telephone Encounter - Melody Weiner LPN - 08/22/2023 12:05 PM ESTPending Prescriptions: Disp Refills Atorvastatin Calcium 20 MG Oral Tablet (Li*90 Tab*3 Sig: Take 1 Tablet by mouth in the morning. * Telephone Encounter - Sol Lopez, WAYLON - 08/22/2023 10:19 AM EST Did you pend patient's preferred pharmacy and medication before forwarding?yes Pharmacy: [facility] [id number] Pending Prescriptions: Disp Refills Atorvastatin Calcium 20 MG Oral Tablet (L*90 Tab*3 Sig: Take 1 Tablet by mouth in the morning. Last Visit: 06/07/2023 (in office), 06/28/2020 (telemedicine) Next Visit: 08/27/2023 If no future appointments scheduled, and last appointment is greater than a year ago, please schedule patient for a follow-up appointment Last date the medication was ordered: 09/05/22 Is this request for a controlled substance?No [...] Labs: Lab Results Component Value Date/Time CREAT 1.8 (H) 08/20/2023 06:05 AM CREAT 1.32 (A) 01/03/2023 12:00 AM CREAT 1.0 04/14/2020 02:11 PM POTASSIUM 4.9 08/20/2023 06:05 AM POTASSIUM 3.9 01/03/2023 12:00 AM POTASSIUM [...] 08/26/2023 10:00 AM EST Office Visit Cardiology, [facility] [address] [place] [address] [address] Roger Guzman, [address] [place] [address] 08/26/2023 6:10 PM EST Pharmacy Pharmacy, [facility] [address] [place] [address] [address] [facility] [address] [place] [address] [address] 08/27/2023 11:00 AM EST Office Visit Family Practice [facility] [address] [place] [address] Giorgio Salas, DO [address] [place] [address] 10/07/2023 2:00 PM EST Office Visit Rheumatology [place] [address] [place] [address] Alonso Dwyer MD [facility] [place] [address] 11/22/2023 3:00 PM EDT Office Visit Family Practice [facility] [address] [place] [address] Giorgio Salas, [address] [facility] [place] [address] 02/04/2024 1:20 PM EDT Office Visit Rheumatology [facility] [address] [place] [address] Alonso Dwyer MD [address] [place] [address] Scheduled Procedures Name Priority Associated Diagnoses Date/Ti me COLONOSCOPY FLEXIBLE PROXIMAL DIAGNOSTIC Recall History of colon polyps Health Maintenance Due Date Last Done Comments Albumin/Creatinine Ratio 09/29/2016 016, 09/24/2012, 06/13/2011 Depression Screening 04/09/2023 04/09/2022 COVID-19 Vaccine ( season) 2023 08/29/2021, 12/30/2020, 12/07/2020 Zoster Vaccines (3 of 3) 06/19/2023 04/24/2023, 12/2014 CKD PHOS USE SMARTSET 92249 10/12/202309/20, 10/12/2019, 08/18/2018, Additional history exists TSH 01/04/2024 01/03/2023, 03/20, 01/17/2021, Additional history exists GFR 02/18/2024 08/20/2023, 07/20, 08/14/2023, Additional history exists CKD HGB USE SMARTSET 24905 08/20/202408/20, 08/20/2023, 08/16/2023, Additional history exists DXA Scan 04/16/2029 04/16/2022, [...] Documents on File Type Date Recorded Patient Magazine Keeper Expl anation Advance Directives and Living Will 05/01/2022 ADVANCE DIRECTIVE / LIVING WILL Power of Dealer Compliance Representative 05/01/2022 POWER OF A TTORNEY Latest Code Status on File Code Status Date Activated Date Inactivated Comments Full Code 10/11/2019 7:48 PM 10/12/2019 8:11 PM This order reflects the patients wishes and were consensually agreed upon. Question Answer Comments Discussion of Advance Directives occurred with: Not Discussed Does the patient have a Living Will? No Does the patient have Health Care Power of Dealer Compliance Representative? No Care Teams Director Content Marketing Relationship Specialty Start Date End Date Giorgio Salas DO [address] [place] [address] PCP - General Family Medicine 02/15/17 documented as of this encounter
--- OUTSIDE RECORDS SUMMARY | 2023-09-04 02:17 | External Medical Summary ---
Author Name Unknown Address Unknown Organization [id number]:LABORATORY [facility] [address] [place] [address] Laboratory Report Ordering Provider Test Date Status ANIBAL LIU 09/03/2023 06:00:00 Final Observation Date Value Abnormality Reference (Units ) Status WBC, Total 09/03/2023 06:00:00 7.59 4.00-10.8 0 (K/uL) Final RBC 09/03/2023 06:00:00 2.72 3.85-5.15 (M/uL) Final Hemoglobin 09/03/2023 06:00:00 9.3 Below low normal 12 .0-15.3 (g/dL) Final HCT 09/03/2023 06:00:00 29.4 Below low normal 36. 0-45.2 (%) Final MCV 09/03/2023 06:00:00 108.1 81.5-97.5 (fL) Final MCH 09/03/2023 06:00:00 34.2 27.0-34.0 (pg) Final MCHC 09/03/2023 06:00:00 31.6 32.0-36.0 (g/dL) Final RDW 09/03/2023 06:00:00 17.2 11.5-15.5 (%) Final Platelets 09/03/2023 06:00:00 330 140-400 (K /uL) Final MPV 09/03/2023 06:00:00 10.7 6.6-11.1 ( fL) Final Performing Location [facility]ORY [facility] [address] [place] [address]
--- OUTSIDE RECORDS SUMMARY | 2023-09-04 02:17 | External Medical Summary ---
Author Name Unknown Address Unknown Organization [id number]:[facility]ORY [facility] - [address] [place] [address] Laboratory Report Ordering Provider Test Date Status ANIBAL LIU 09/03/2023 06:00:00 Final Observation Date Value Abnormality Reference (Units ) Status Iron 09/03/2023 06:00:00 29 Below low normal 33- 151 (ug/dL) Final Performing Location [facility] - [address] [place] [address]
--- OUTSIDE RECORDS SUMMARY | 2023-09-04 02:17 | External Medical Summary ---
Author Name Unknown Address Unknown [id number] [address] [place] [address] Laboratory Report Ordering Provider Test Date Status ANIBAL LIU 09/03/2023 06:00:00 Final Observation Date Value Abnormality Reference (Units ) Status BUN 09/03/2023 06:00:00 26 Above high normal 6-20 (mg/dL) Final Creatinine 09/03/2023 06:00:00 0.8 0.5-1.0 (mg/dL) Final Glomerular filtration rate/1.73 sq M.predicted [Volume Rate/Area] in Serum, Plasma or Blood by Creatinine-based formula (CKD-EPI) 09/03/2023 06:00:00 79 >=60 (mL/min) Final eGFR is calculated based on the CKD-EPI 2020 equation SODIUM 09/03/2023 06:00:00 137 135-146 (m mol/L) Final Potassium 09/03/2023 06:00:00 4.4 3.5-5.1 (m mol/L) Final Cl 09/03/2023 06:00:00 105 98-107 (mm ol/L) Final CO2 09/03/2023 06:00:00 23 22-32 (mmo l/L) Final Anion gap 09/03/2023 06:00:00 9 7-15 (mmol /L) Final Glucose 09/03/2023 06:00:00 92 70-120 (mg /dL) Final Calcium 09/03/2023 06:00:00 8.2 Below low normal 8.4 -10.2 (mg/dL) Final Performing Location LABORATORY [facility] [address] [place] [address]
--- OUTSIDE RECORDS SUMMARY | 2023-09-04 02:17 | External Medical Summary ---
Author Name Unknown Address Unknown Organization [id number]:LABORATORY [facility] - [address] [facility] [place] [address] Laboratory Report Ordering Provider Test Date Status ANIBAL LIU 09/03/2023 06:00:00 Final Observation Date Value Abnormality Reference (Units ) Status Triglyceride 09/03/2023 06:00:00 197 Above high normal <=174 (mg/dL) Final Triglyceride Reference Range s (mg/dL):
<150 Acceptable
150-174 Borderline high
175-499 High
>=500 Very high Cholesterol 09/03/2023 06:00:00 160 <200 (mg /dL) Final Total Cholesterol Reference Ranges (mg/dL):
<200 Desirable
200-239 Borderline high
>=240 High HDL 09/03/2023 06:00:00 31 Below low normal >49 (mg/dL) Final HDL Cholesterol Reference Ra nges (mg/dL):
>=60 High (Desirable)
<50 Low (Undesirable) For Females
<40 Low (Undesirable) For Males NON-HDL CHOLESTEROL 09/03/2023 06:00:00 129 <=159 (mg/dL) Final Non-HDL Cholesterol Referenc e Range (mg/dL):
<100 Target level for high risk ASCVD patient
<130 Optimal for general population
130-159 Near optimal for general population
160-189 Borderline High
190-219 High
>=220 Very High LDL, (calculated) 09/03/2023 06:00:00 90 <= 129 (mg/dL) Final LDL Cholesterol Reference Ra nges (mg/dL):
<70 Target level for high risk ASCVD patient
<100 Optimal for general population
100-129 Near optimal for general population
130-159 Borderline high
160-189 High
>=190 Very high Performing Location LABORATORY [facility] - [address] [facility] [address]
--- OUTSIDE RECORDS SUMMARY | 2023-09-04 02:17 | External Medical Summary | Summary of Care ---
Author Name Unknown Organization [facility] Address [address] [place] [facility] [place] [place] [address] Phone [phone] Care Team Providers Care Skin Lap Bonder Name Role Phone IsidoroGiorgio ontiveros Primary Care Provider [phone] Reason for Visit * Reason Comments Appointment Encounter Details Date Type Department Care Team (Late st Contact Info) Description 08/26/2023 6:10 PM [facility] [address] [facility] [address] [place] [address] Primary osteoarthritis of both knees*; Osteoarthrosis involving shoulder region; Osteoarthrosis, localized, primary, involving lower leg; DDD (degenerative disc disease), lumbar; Lumbar radiculopathy Allergies Active Allergy Reactions Criticality Noted Date Comments Salicylates Itching 11/27/1999 Aspirin Sulfa Antibiotics Other (Please comment) 1998 Unsure, happened during a hospital admission. documented as of this encounter (statuses as of 08/26/2023) Medications Medication Sig Dispensed Refills Start Date [...] bedtime. 60 Each 11 10/03/2022 Active Nystatin 466573 UNIT/GM External Cream Apply topically to affected [...] 07/10/2023 Active Lidocaine 5 % External Patch (Lidoderm)Indication [...] 08/15/2023 Active Furosemide 20 MG Oral Tablet (Lasix)Indications:C hronic right-sided heart failure (HCC),Unspecified atrial fibrillation (HCC),HTN, goal below 130/80 Take 1 Tablet by mouth in the morning. 90 Tablet 3 08/16/2023 Active Atorvastatin Calcium 20 MG Oral Tablet (Lipitor) Take 1 Tablet by mouth in the morning. 90 Tablet 3 08/22/2023 Active documented as of this encounter (statuses as of 08/26/2023) Active Problems Problem Noted Date Diagnosed Date [...] AGREEMENT 10/29/2017 Coronary artery disease invo lving [place] coronary artery of [place] heart without angina pectoris 10/28/2017 HTN, goal [...] History of positive PPD, untreated 08/10/2013 Prothrombin [id number] mutation 02/16/2013 Overview: heterozygous for the [id number] mutation Family history of prothrombin gene mutation [...] colonsocopy, repeat 2009 Irritable bowel syndrome 02/23/2004 prison current use of anticoagulant therapy 0 09/23/2003 DYSFUNCT EUSTACHIAN TUBE 01/05/2003 Dyslipidemia, goal LDL below 70 06/23/2002 Overview: Per Lipid Taxonomy. Anticoagulation management encounter 02/23/2002 History of DVT (deep vein thrombosis) 02/23/2002 History of pulmonary embolism 02/23/2002 documented as of this encounter (statuses as of 08/26/2023) Resolved Problems Problem Noted Date Diagnosed Date [...] as of this encounter (statuses as of 08/26/2023) Immunizations Name Administration Dates Next Due COVID-19 mRNA, LNP-s, No Pre serve, 2-Dose Series (Synata) 08/29/2021,12/30/2020,12/07/2020 H1N1 2009 Influenza, IM 10/17/2009 PPD [...] this encounter Progress Notes * Fawn Reed PHARM Tech - 08/26/2023 10:29 AM EST Patient Phone Numbers Invalid phone number, unable to leave message on patients answering machine to schedule MTDM appointment for pain management. [facility] message sent --no Clinic will follow up again in 4 week(s). [Attempt # 3] Thank you, Fawn Reed Application Manager [facility] ([facility]) (formerly Telepharmacy) [phone] 08/26/2023,10:29 AM documented in this encounter Plan of Treatment Upcoming Encounters Date Type Department Care Team (Late st Contact Info) Description 08/27/2023 11:00 AM EST [facility] [place] [address] [place], [place] [address] Giorgio Salas, DO [address] [facility] [address] [place], [place] [address] 09/23/2023 6:10 PM EST Pharmacy Pharmacy, [facility] [address] [place] [place] [address] [facility] [address] [facility] [place] [address] 10/07/2023 2:00 PM EST Office Visit Rheumatology [place] [address] [facility] [place] [address] Alonso Dwyer MD [facility] [place], [place] [address] 11/22/2023 3:00 PM EDT Office Visit Family Practice [facility] [address] [place] [address] Giorgio Salas, DO [address] [place], [place] [address] 02/04/2024 1:20 PM EDT Office Visit Rheumatology [place] [address] [place], [place] [address] Alonso Dwyer MD [facility] [place] [address] Scheduled Procedures Name Priority Associated Diagnoses Date/Ti me COLONOSCOPY FLEXIBLE PROXIMAL DIAGNOSTIC Recall History of colon polyps Health Maintenance Due Date Last Done Comments Albumin/Creatinine Ratio 09/29/2016 016, 09/24/2012, 06/13/2011 Depression Screening 04/09/2023 04/09/2022 COVID-19 Vaccine ( season) 2023 08/29/2021, 12/30/2020, 12/07/2020 Zoster Vaccines (3 of 3) 06/19/2023 04/24/2023, 0512/2014 CKD PHOS USE SMARTSET 95388 10/12/202309/20, 10/12/2019, 08/18/2018, Additional history exists TSH 01/04/2024 01/03/2023, 03/20, 01/17/2021, Additional history exists GFR 02/18/2024 08/20/2023, 07/20, 08/14/2023, Additional history exists CKD HGB USE SMARTSET 06412 08/20/202408/20, 08/20/2023, 08/16/2023, Additional history exists DXA [...] Documents on File Type Date Recorded 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 No Care Teams Skin Lap Bonder Relationship Specialty Start Date End Date Giorgio Salas DO [address] [place] [address] PCP - General Family Medicine 02/15/17 documented as of this encounter
--- OUTSIDE RECORDS SUMMARY | 2023-09-04 02:17 | External Medical Summary ---
Author Name Unknown Address Unknown Organization K01:LABORATORY [facility] - [address] [facility] [place] [address] Laboratory Report Ordering Provider Test Date Status ANIBAL LIU 09/03/2023 06:00:00 Final Observation Date Value Abnormality Reference (Units ) Status Magnesium 09/03/2023 06:00:00 2.2 1.5-2.6 (m g/dL) Final Performing Location [facility] - [address] [facility] [address]
--- NOTE | 2023-09-04 03:06 | Emergency Department Note ---
Impression & Plan CHF (congestive heart failure), Substernal chest pain Admit to the [facility] ED Provider Note NAME: BEV ALDRIDGE AGE: 83 SEX: Female INFORMANT: Patient; ; daughter ED PROVIDER(S): Leanna Garcia DO CHIEF COMPLAINT: Chest pain and shortness of breath PLAN: Disposition: Admit to the [facility] MEDICAL DECISION MAKING: This is a an 83-year-old female patient from [facility] who developed chest pain and worsening shortness of breath over the past couple of days. Patient has a history of congestive heart failure he was discharged from the hospital on September 02. Tonight, the chest discomfort and shortness of breath worsened. Chest x-ray shows evidence of pulmonary edema. EMS arrived and found the patient hypoxic. They placed her on CPAP and initiated sublingual nitroglycerin and transition to IV nitro. Laboratory studies reveal a BNP of 4139 and a troponin of 93.2. Patient was trans for to BiPAP here in the emergency department. She is tolerating that well. Her chest pain has subsided and she is breathing more easily. Patient was evaluated by the [facility] and will be evaluated and admitted to the hospital. Care/management discussed with: assistant clinical nurse manager and [facility] Triage Nursing notes: Reviewed and agree with them. Vital Signs: reviewed and remarkable for tachycardia and tachypnea Additional History obtained from: EMS; the patient's and daughter who are at the bedside Chronic Medical/Social Conditions affecting care: [facility] patient; chronic respiratory failure/CHF Prior/ Outside/ External records reviewed: I reviewed records from [facility] as well as the patient's [address] [facility] Differential Diagnosis: CHF exacerbation; STEMI, NSTEMI, pneumonia Diagnostics, independently interpreted by me: ECG: Sinus tachycardia with a nonspecific intraventricular block at a rate of 109. I compared this to an EKG from August 22 which showed a sinus tachycardia with a left bundle branch block. Cardiac Monitoring: Sinus tachycardia at 104 Imaging studies: Portable chest x-ray: As per my independent interpretation- cardiomegaly; pulmonary edema with bilateral pleural effusions HPI: 83 year old Female arrives for evaluation of shortness of breath and chest discomfort. Patient has had increasing substernal chest pain and shortness of breath over the past 24-36 hours. She began to struggle to get her air tonight at [facility]. EMS was called. PAST MEDICAL HISTORY: See Below, PAST SURGICAL HISTORY: See Below, SOCIAL HISTORY: See Below, HOME MEDICATIONS: See list ALLERGIES: See list VITALS: See Below PHYSICAL EXAMINATION: HEENT: Head - normocephalic and atraumatic. Pupils are equal, round, and reactive to light. Extraocular eye muscles are intact, and sclera are anicteric. Nose - moist nasal mucosa without discharge. Mouth - moist buccal mucosa. Oropharynx is nonerythematous and there is no tonsillar exudate or edema noted. Neck: Supple; no JVD, nuchal rigidity, cervical lymphadenopathy, or auscultated bruits. Heart: Regular rate and rhythm. There is a normal S1 and S2 with no murmurs, clicks, or gallops appreciated. Lungs: Patient has diffuse Rales and rhonchi with the right being worse than the left. Abdomen: Soft, completely nontender, nondistended, with good bowel sounds. There are no palpable pulsatile masses or hepatosplenomegaly. There is no guarding, rigidity, or rebound noted. Extremities: Patient has significant edema in in her arms and legs. PICC line in her left upper arm Skin: warm and dry with good turgor and no rashes. Emergency department course: The patient was evaluated in room C5. A complete history and physical was performed. Laboratory studies were drawn through her PICC line in her left upper arm. IV team established a second line. Portable chest x-ray was performed. Order was placed for continuous cardiac monitoring. Patient was in a sinus tachycardia at a rate of 104. Patient was transition from CPAP to BiPAP here in the ER which she has tolerated well. Patient was given 40 mg of IV Lasix. I kept the patient's family abreast of the situation. She appears to be in respiratory failure secondary to pulmonary edema. I have personally spent greater than 50 minutes of critical care time in the direct management of this patient. This includes bedside care, interpretation of diagnostic studies, and testing, discussion with consultants, patient, and family members, and other required patient management activities. This 50 minutes is in excess of all separately billable procedures. Past Med/Surg History Medical History Influenza A Compensated respiratory acidosis Acute kidney injury superimposed on CKD Complicated UTI (urinary tract infection) Anemia E coli bacteremia Acute kidney injury Abnormal urinalysis Chronic left hip pain Diffuse myofascial pain syndrome Chronic anticoagulation Opioid dependence History of pulmonary embolism Pulmonary edema History of GA (myocardial infarction) 2018 - FOLLOWS W/ DR. JACOBSEN On anticoagulant therapy History of endometriosis Osteoporosis Osteoarthritis Migraine Poor historian History of DVT (deep vein thrombosis) RLE - 20 YEARS AGO FOLLOWING INJURY On home oxygen therapy 2 LPM 02 QHS Sleep apnea NO DEVICE Hypertension Hypothyroidism Asthma USES PRN INH 1 X WK Pulmonary embolism (10/10/12) 20 YEARS AGO AFTER INJURY 30 YEARS AGO - POST OP CHOLEYCYSTECTOMY ON WARFARIN Atrial flutter PT COULD NOT CONFIRM Surgical History History of cardiac cath 2018 - [place] - NO STENTS History of left knee surgery History of tubal ligation History of section History of total abdominal hysterectomy and bilateral salpingo-oophorectomy History of appendectomy History of cholecystectomy History of cataract surgery History of tonsillectomy History of esophagogastroduodenoscopy (EGD) History of colonoscopy Family History Father , age 51 of cancer Esophageal cancer Lung cancer Mother , age 103 No problems noted. 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 [employer] Other Information That Helps Us Care for You: No Feels Safe at Home: Yes Safety Concerns: Feels Safe At This Time Assistive Devices: Cane, Nebulizer, Oxygen - at Night, Walker and Wheelchair Assistive Devices Comment: dentures present on admit Allergies Allergies Allergy/AdvReac Type Severity Reaction Status Date / Time aspirin Allergy Intermediate ITCHING Verified 08/20/23 11:42 Sulfa (Sulfonamide Allergy Unknown PER Verified 08/20/23 11:42 Antibiotics) GMG--HAPPENED IN HOSPITAL Home Meds Home Medications Medication Instructions Recorded Confirmed acetaminophen 325 mg tablet 650 mg PO Q4 PRN Pain 08/20/23 09/04/23 (Tylenol) albuterol sulfate 90 mcg/actuation 2 puff inhalation Q4 PRN Shortness 08/20/23 09/04/23 aerosol inhaler Of Breath Or Wheezing ascorbic acid (vitamin C) 500 mg 250 mg PO DAILY 08/20/23 09/04/23 tablet (Vitamin C) atorvastatin 20 mg tablet 20 mg PO DAILY 08/20/23 09/04/23 cholecalciferol (vitamin D3) 25 25 mcg PO DAILY 08/20/23 09/04/23 mcg (1,000 unit) tablet clopidogrel 75 mg tablet 75 mg PO DAILY 08/20/23 09/04/23 docusate sodium 100 mg capsule 100 mg PO BID 08/20/23 09/04/23 duloxetine 30 mg capsule,delayed 60 mg PO BID 08/20/23 09/04/23 release sprinkle ferrous sulfate 325 mg (65 mg 325 mg PO DAILY 08/20/23 09/04/23 iron) tablet fluticasone furoate 100 1 inh inhalation DAILY 08/20/23 09/04/23 mcg-vilanterol 25 mcg/dose inhalation powder (Breo Ellipta) lasmiditan 50 mg tablet (Reyvow) 50 mg PO DAILY PRN Migraine 08/20/23 09/04/23 Headache levothyroxine 50 mcg tablet 50 mcg PO DAILY 08/20/23 09/04/23 magnesium oxide 400 mg PO BIDM 08/20/23 09/04/23 metoprolol succinate 50 mg 50 mg PO BID 08/20/23 09/04/23 tablet,extended release 24 hr miconazole nitrate 2 % topical 1 applic topical BID 08/20/23 09/04/23 powder montelukast 10 mg tablet 10 mg PO HS 08/20/23 09/04/23 ondansetron HCl 4 mg tablet 4 mg PO Q4 PRN Nausea 08/20/23 09/04/23 pantoprazole 40 mg tablet,delayed 40 mg PO DAILYBB 08/20/23 09/04/23 release polyethylene glycol 3350 17 gram 17 g PO DAILY PRN Constipation 08/20/23 09/04/23 oral powder packet (Miralax) sennosides 8.6 mg-docusate sodium 1 tab-cap PO .DAILY@LUNCH PRN 08/20/23 09/04/23 50 mg tablet (Senokot-S) Constipation tramadol 50 mg tablet 50 mg PO Q12 PRN Pain 08/20/23 09/04/23 apixaban 5 mg tablet (Eliquis) 5 mg PO BID 09/04/23 09/04/23 daptomycin 500 mg intravenous 600 mg IV DAILY 09/04/23 09/04/23 solution Previous Rx's Medication Instructions Recorded furosemide 20 mg tablet 20 mg PO UD #30 tabs 09/02/23 ipratropium 0.5 mg-albuterol 3 mg 3 ml inhalation QID PRN shortness 09/02/23 (2.5 mg base)/3 mL nebulization of breath or wheezing #90 mL soln Results & Data (ED) Vital Signs Vital Signs - 24 hr 09/04/23 02:15 09/04/23 02:19 09/04/23 02:19 Temperature Temperature Source Pulse Rate 96 H 106 H Pulse Rate from SpO2 Sensor Pulse Rhythm Pulse Strength Respiratory Rate 27 H 25 H Respiratory Effort / Characteristics Spontaneous Respiratory Depth Respiratory Pattern Tachypnea Blood Pressure 140/81 Blood Pressure Mean 101 Blood Pressure Position Pulse Oximetry 96 Oxygen Delivery Method Fraction of Inspired Oxygen 40 SaO2/FiO2 Ratio Sepsis Recent Fever Within 48 Hours Sepsis New/Unexplained Change in Mental Status Sepsis Action Taken by Nursing 09/04/23 02:20 09/04/23 02:25 09/04/23 02:25 Temperature 36.7 C Temperature Source Oral Pulse Rate 112 H 104 H Pulse Rate from SpO2 Sensor Pulse Rhythm Regular Pulse Strength Normal Respiratory Rate 26 H 26 H Respiratory Effort / Characteristics Labored Short of Breath Spontaneous Short of Breath Respiratory Depth Normal Respiratory Pattern Regular Tachypnea Blood Pressure 140/81 Blood Pressure Mean 100 Blood Pressure Position Semi-fowlers Pulse Oximetry 96 Oxygen Delivery Method CPAP BiPAP Fraction of Inspired Oxygen 40 SaO2/FiO2 Ratio 240 Sepsis Recent Fever Within 48 Hours No Sepsis New/Unexplained Change in Mental Status No Sepsis Action Taken by Nursing No Action Required 09/04/23 02:30 09/04/23 02:40 09/04/23 02:48 Temperature Temperature Source Pulse Rate 106 H 105 H 103 H Pulse Rate from SpO2 Sensor 107 H 104 H Pulse Rhythm Pulse Strength Respiratory Rate 23 23 Respiratory Effort / Characteristics Respiratory Depth Respiratory Pattern Blood Pressure Blood Pressure Mean Blood Pressure Position Pulse Oximetry 91 96 Oxygen Delivery Method Fraction of Inspired Oxygen SaO2/FiO2 Ratio Sepsis Recent Fever Within 48 Hours Sepsis New/Unexplained Change in Mental Status Sepsis Action Taken by Nursing 09/04/23 02:50 09/04/23 02:56 09/04/23 02:56 Temperature Temperature Source Pulse Rate 102 H 102 H Pulse Rate from SpO2 Sensor 102 H 101 H Pulse Rhythm Pulse Strength Respiratory Rate 20 22 Respiratory Effort / Characteristics Respiratory Depth Respiratory Pattern Blood Pressure 146/81 H Blood Pressure Mean 96 Blood Pressure Position Pulse Oximetry 96 94 Oxygen Delivery Method Fraction of Inspired Oxygen SaO2/FiO2 Ratio Sepsis Recent Fever Within 48 Hours Sepsis New/Unexplained Change in Mental Status Sepsis Action Taken by Nursing 09/04/23 03:00 09/04/23 03:00 09/04/23 03:10 Temperature Temperature Source Pulse Rate 102 H 100 H Pulse Rate from SpO2 Sensor 102 H 100 H Pulse Rhythm Pulse Strength Respiratory Rate 21 23 Respiratory Effort / Characteristics Respiratory Depth Respiratory Pattern Blood Pressure 160/82 H Blood Pressure Mean 124 Blood Pressure Position Pulse Oximetry 97 95 Oxygen Delivery Method Fraction of Inspired Oxygen SaO2/FiO2 Ratio Sepsis Recent Fever Within 48 Hours Sepsis New/Unexplained Change in Mental Status Sepsis Action Taken by Nursing 09/04/23 03:17 09/04/23 03:17 09/04/23 03:20 Temperature Temperature Source Pulse Rate 100 H 101 H Pulse Rate from SpO2 Sensor 101 H Pulse Rhythm Regular Pulse Strength Respiratory Rate 22 48 H Respiratory Effort / Characteristics Respiratory Depth Respiratory Pattern Blood Pressure Blood Pressure Mean Blood Pressure Position Pulse Oximetry 96 96 97 Oxygen Delivery Method BiPAP BiPAP Fraction of Inspired Oxygen 40 40 SaO2/FiO2 Ratio 240 Sepsis Recent Fever Within 48 Hours Sepsis New/Unexplained Change in Mental Status Sepsis Action Taken by Nursing 09/04/23 03:30 09/04/23 03:30 09/04/23 03:40 Temperature Temperature Source Pulse Rate 100 H 99 H Pulse Rate from SpO2 Sensor 100 H 98 H Pulse Rhythm Pulse Strength Respiratory Rate 52 H 35 H Respiratory Effort / Characteristics Respiratory Depth Respiratory Pattern Blood Pressure 154/108 H Blood Pressure Mean 124 Blood Pressure Position Pulse Oximetry 99 100 Oxygen Delivery Method Fraction of Inspired Oxygen SaO2/FiO2 Ratio Sepsis Recent Fever Within 48 Hours Sepsis New/Unexplained Change in Mental Status Sepsis Action Taken by Nursing 09/04/23 03:50 09/04/23 04:00 09/04/23 04:00 Temperature Temperature Source Pulse Rate 97 H 99 H Pulse Rate from SpO2 Sensor 98 H 99 H Pulse Rhythm Pulse Strength Respiratory Rate 25 H 24 Respiratory Effort / Characteristics Respiratory Depth Respiratory Pattern Blood Pressure 157/82 H Blood Pressure Mean 118 Blood Pressure Position Pulse Oximetry 100 97 Oxygen Delivery Method Fraction of Inspired Oxygen SaO2/FiO2 Ratio Sepsis Recent Fever Within 48 Hours Sepsis New/Unexplained Change in Mental Status Sepsis Action Taken by Nursing 09/04/23 04:10 09/04/23 04:20 09/04/23 04:30 Temperature Temperature Source Pulse Rate 100 H 101 H 102 H Pulse Rate from SpO2 Sensor 100 H 99 H 109 H Pulse Rhythm Pulse Strength Respiratory Rate 25 H 26 H 26 H Respiratory Effort / Characteristics Respiratory Depth Respiratory Pattern Blood Pressure Blood Pressure Mean Blood Pressure Position Pulse Oximetry 100 98 88 L Oxygen Delivery Method Fraction of Inspired Oxygen SaO2/FiO2 Ratio Sepsis Recent Fever Within 48 Hours Sepsis New/Unexplained Change in Mental Status Sepsis Action Taken by Nursing 09/04/23 04:30 09/04/23 04:40 09/04/23 04:50 Temperature Temperature Source Pulse Rate 102 H 104 H Pulse Rate from SpO2 Sensor 102 H 104 H Pulse Rhythm Pulse Strength Respiratory Rate 28 H 22 Respiratory Effort / Characteristics Respiratory Depth Respiratory Pattern Blood Pressure 154/78 H Blood Pressure Mean 120 Blood Pressure Position Pulse Oximetry 93 96 Oxygen Delivery Method Fraction of Inspired Oxygen SaO2/FiO2 Ratio Sepsis Recent Fever Within 48 Hours Sepsis New/Unexplained Change in Mental Status Sepsis Action Taken by Nursing 09/04/23 05:00 09/04/23 05:00 Temperature Temperature Source Pulse Rate 102 H Pulse Rate from SpO2 Sensor 102 H Pulse Rhythm Pulse Strength Respiratory Rate 26 H Respiratory Effort / Characteristics Respiratory Depth Respiratory Pattern Blood Pressure 145/93 H Blood Pressure Mean 118 Blood Pressure Position Pulse Oximetry 94 Oxygen Delivery Method Fraction of Inspired Oxygen SaO2/FiO2 Ratio Sepsis Recent Fever Within 48 Hours Sepsis New/Unexplained Change in Mental Status Sepsis Action Taken by Nursing Laboratory Data 09/04/23 05:38 09/04/23 02:50 Lab Results 09/04/23 09/04/23 Range/Units 02:50 03:00 WBC 11.84 H (4.8-10.8) K/ul RBC 2.35 L (4.20-5.40) M/uL Hgb 7.9 L (12.0-16.0) g/dl Hct 24.9 L (37.0-47.0) % MCV 106.0 H (80.0-100.0) fL MCH 33.6 (25.0-34.0) pg MCHC 31.7 L (32.0-36.0) g/dL RDW Std Deviation 65.5 H (36.4-46.3) fL RDW Coeff of Vijay 17.0 H (11.5-14.5) % Plt Count 297 (130-400) K/uL MPV 10.8 (9.4-12.4) fL Immature Gran % (Auto) 0.5 % Neut % (Auto) 83.7 % Lymph % (Auto) 8.3 % [place] % (Auto) 6.4 % Eos % (Auto) 0.7 % Baso % (Auto) 0.4 % Neut # (Auto) 9.91 H (1.40-6.50) K/uL Lymph # (Auto) 0.98 L (1.20-3.40) K/uL [place] # (Auto) 0.76 H (0.11-0.59) K/uL Eos # (Auto) 0.08 (0.00-0.50) K/uL Baso # (Auto) 0.05 (0.00-0.20) K/uL Immature Gran # (Auto) 0.06 (0.01-0.20) K/uL Polychromasia 1+ Sodium 136 (136-145) mmol/L Potassium 3.8 (3.5-5.1) mmol/L Chloride 106 (98-107) mmol/L Carbon Dioxide 24 (21-32) mmol/L Anion Gap 6 (3-11) BUN 28 H (6-23) mg/dl Creatinine 0.73 (0.6-1.2) mg/dl Est Cr Clr Drug Dosing 74.7 ml/min Est GFR ( Amer) 89.5 ml/min Est GFR (Non-Af Amer) 77.2 ml/min BUN/Creatinine Ratio 38.4 H (10-20) Glucose 106 H (70-99(Fasting)) mg/dl Calcium 7.9 L (8.6-10.3) mg/dl Magnesium 2.0 (1.7-2.4) mg/dl Total Bilirubin 0.8 (0.2-1.0) mg/dl AST 25 (13-39) U/L ALT 8 (7-52) U/L Alkaline Phosphatase 68 (34-104) U/L Troponin I High Sens 93.2 H* (0-14) pg/ml B-Natriuretic Peptide 4139 H (0-100) pg/ml Total Protein 6.5 (6.0-8.3) gm/dl Albumin 2.6 L (3.4-5.0) gm/dl Globulin 3.9 (2.5-4.0) gm/dl Albumin/Globulin Ratio 0.7 L (0.9-2) Procalcitonin 0.32 (0-0.5) ng/ml Urine Color Dark Yellow Urine Appearance Cloudy A (Clear) Urine pH 8.0 H (4.5-7.5) Ur Specific [place] 1.019 (1.000-1.030) Urine Protein 2+ H (Negative) Urine Glucose (UA) Negative (Negative) Urine Ketones Negative (Negative) Urine Blood 2+ H (Negative) Urine Nitrite Negative (Negative) Urine Bilirubin Negative (Negative) Urine Urobilinogen Negative (Negative) Ur Leukocyte Esterase 3+ H (Negative) Urine WBC (Auto) >30 H (0-5) /hpf Urine RBC (Auto) >30 H (0-4) /hpf U Hyaline Cast (Auto) 0 (0-5) /lpf U Epithel Cells (Auto) 10-20 H (0-5) /lpf Urine Bacteria (Auto) Negative (Negative) Urine Yeast Budding w/ Hyphae A (None Prsent) Administered Medications Clopidogrel Bisulfate (Clopidogrel Bisulfate 75 Mg Tab) 75 mg PO DAILY [facility] Stop: 10/04/23 08:59 Last Admin: 09/04/23 08:29 Dose: Not Given Documented By: Docusate Sodium (Docusate Sodium 100 Mg Cap) 100 mg PO BID [facility] Stop: 10/04/23 08:59 Last Admin: 09/04/23 08:29 Dose: Not Given Documented By: MS Duloxetine HCl (Duloxetine Hcl 60 Mg Cap) 60 mg PO BID [facility] Stop: 10/04/23 08:59 Last Admin: 09/04/23 08:29 Dose: Not Given Documented By: MS Ferrous Sulfate (Ferrous Sulfate 325 Mg Tab) 325 mg PO DAILY [facility] Stop: 10/04/23 08:59 Last Admin: 09/04/23 08:30 Dose: Not Given Documented By: MS Fluticasone/Vilanterol (Fluticasone/Vilanterol 100/25mcg 14 Puffs/Inhaler) 1 puffs INH DAILY [facility] Stop: 10/04/23 08:59 Last Admin: 09/04/23 10:20 Dose: Not Given Documented By: MS Levothyroxine Sodium (Levothyroxine Sodium 50 Mcg Tablet) 50 mcg PO DAILYBB [facility] Stop: 10/04/23 08:59 Last Admin: 09/04/23 08:30 Dose: Not Given Documented By: MS Metoprolol Succinate (Metoprolol Succ 50mg Ext Rel Tab) 50 mg PO BID [facility] Stop: 10/04/23 08:59 Last Admin: 09/04/23 08:30 Dose: Not Given Documented By: MS Potassium Chloride (Potassium Chloride Crtab 20 Meq Tabcr) 20 meq PO BID [facility] Stop: 10/04/23 08:59 Last Admin: 09/04/23 07:27 Dose: Not Given Documented By: MS Spironolactone (Spironolactone 12.5 Mg Tab) 12.5 mg PO DAILY [facility] Stop: 10/04/23 09:59 Last Admin: 09/04/23 12:52 Dose: 12.5 mg Documented By: MS Discontinued Medications Atropine Sulfate (Atropine Sulfate 0.1 Mg/Ml 10ml Syr) Confirm Administered Dose 1 mg IV .STK-MED ONE Stop: 09/04/23 10:03 Last Admin: 09/04/23 11:55 Dose: Not Given Documented By: MS Dobutamine HCl (Dobutamine Hcl 12.5 Mg/Ml 20 Ml Vial) Confirm Administered Dose 250 mg IV .STK-MED ONE Stop: 09/04/23 10:03 Last Admin: 09/04/23 11:55 Dose: Not Given Documented By: MS Furosemide (Furosemide 40 Mg/4 Ml Vial) 40 mg IV ONE ONE Stop: 09/04/23 04:14 Last Admin: 09/04/23 04:20 Dose: 40 mg Documented By: ALANNAH Potassium Chloride (K Dev / Wtr) 10 meq in 100 mls @ 100 mls/hr IV Q1H [facility] Stop: 09/04/23 06:29 Last Infusion: 09/04/23 08:27 Dose: Infused Documented By: Admin: 09/04/23 07:27 Dose: 100 mls/hr Documented By: Infusion: 09/04/23 07:10 Dose: Infused Documented By: Admin: 09/04/23 06:10 Dose: 100 mls/hr Documented By: ALANNAH Acetaminophen (Ofirmev) 1,000 mg in 100 mls @ 400 mls/hr IV NOW STA Stop: 09/04/23 05:31 Last Infusion: 09/04/23 06:30 Dose: Infused Documented By: Admin: 09/04/23 06:13 Dose: 400 mls/hr Documented By: ALANNAH Daptomycin 600 mg/ Syringe 12 mls @ 6 mls/min IV Q24H [facility]; Protocol Stop: 09/04/23 08:31 Last Admin: 09/04/23 10:20 Dose: 6 mls/min Documented By: Ipratropium [place] (Ipratropium [place] Neb Soln 0.02% 2.5 Ml Vial) 0.5 mg INH NOW STA Stop: 09/04/23 05:06 Last Admin: 09/04/23 06:16 Dose: 0.5 mg Documented By: ALANNAH Levalbuterol HCl (Levalbuterol 1.25 Mg/3 Ml Neb) 1.25 mg NEB NOW STA Stop: 09/04/23 05:06 Last Admin: 09/04/23 06:15 Dose: 1.25 mg Documented By: ALANNAH Metoprolol Tartrate (Metoprolol Tartrate 1 Mg/Ml Vial) Confirm Administered Dose 10 mg IV .STK-MED ONE Stop: 09/04/23 10:03 Last Admin: 09/04/23 11:55 Dose: Not Given Documented By: Imaging Data Radiologist's Impression: Chest X-Ray 09/04/23 02:56 XR chest 1V portable HISTORY: Dyspnea COMPARISON: Chest 08/28/2023. FINDINGS: There are low lung volumes with persistent elevation of the right hemidiaphragm. Perihilar interstitial/vascular thickening consistent with pulmonary edema. This is similar to the prior study. Bilateral pleural effusions and bibasilar densities persist. The heart remains mildly enlarged. A left PICC terminates in the SVC. Advanced degenerative changes again noted within the shoulders. IMPRESSION: 1. No change in the mild interstitial pulmonary edema and bilateral pleural effusions. 2. Bibasilar densities also persist. This may represent atelectasis or a pneumonia. ACT 112: Negative or not required by law. Electronically signed by: Clyde Jensen M.D. 09/04/2023 7:26 AM Discharge Plan Visit Data Chief Complaint: Respiratory Problems ED Provider: Leanna Garcia Discharge Problem: CHF (congestive heart failure), Substernal chest pain Patient Disposition: Admitted As Inpatient Discharge Instructions Interventions: ED Discharge Assessment Last Done: 09/04/23 06:42
[2023-09-04 03:16] LABS: Basophils # (auto) 0.05 K/uL (0.00-0.20); Basophils % (auto) 0.4 %; Eosinophils # (auto) 0.08 K/uL (0.00-0.50); Eosinophils % (auto) 0.7 %; Hematocrit (blood only) 24.9 % (37.0-47.0); Hemoglobin 7.9 g/dl (12.0-16.0); Immature Granulocytes # (auto) 0.06 K/uL (0.01-0.20); Immature Granulocytes % (auto) 0.5 %; Lymphocytes # (auto) 0.98 K/uL (1.20-3.40); Lymphocytes % (auto) 8.3 %; Mean Corpuscular Hemoglobin 33.6 pg (25.0-34.0); Mean Corpuscular Hgb Conc 31.7 g/dL (32.0-36.0); Mean Platelet Volume 10.8 fL (9.4-12.4); Monocytes # (auto) 0.76 K/uL (0.11-0.59); Monocytes % (auto) 6.4 %; Neutrophils # (auto) 9.91 K/uL (1.40-6.50); Neutrophils % (auto) 83.7 %; Platelet Count 297 K/uL (130-400); RDW Standard Deviation 65.5 fL (36.4-46.3); Red Blood Count 2.35 M/uL (4.20-5.40); White Blood Count 11.84 K/ul (4.8-10.8)
[2023-09-04 03:25] LABS: Appearance Urine Cloudy (Clear); Bacteria Urine Automated Negative (Negative); Bilirubin Urine Negative (Negative); Blood Urine 2+ (Negative); Color Urine Dark Yellow; Glucose Urine UA Negative (Negative); Ketones Urine Negative (Negative); Leukocyte Esterase Urine 3+ (Negative); Nitrite Urine Negative (Negative); RBC Urine Automated >30 /hpf (0-4); Specific Gravity Urine 1.019 (1.000-1.030); Urobilinogen Urine Negative (Negative); WBC Urine Automated >30 /hpf (0-5)
[2023-09-04 03:30] LABS: Protein Urine 2+ (Negative)
[2023-09-04 03:33] LABS: Albumin Globulin Ratio 0.7 (0.9-2); Albumin Level 2.6 gm/dl (3.4-5.0); BUN Creatinine Ratio 38.4 (10-20); Bilirubin,Total 0.8 mg/dl (0.2-1.0); Calcium 7.9 mg/dl (8.6-10.3); Creatinine Clr Calc Pharmacy 74.7 ml/min; Est GFR (African American) 89.5 ml/min; Est GFR (Non-African American) 77.2 ml/min; Globulin 3.9 gm/dl (2.5-4.0); Potassium 3.8 mmol/L (3.5-5.1); Total Protein 6.5 gm/dl (6.0-8.3)
[2023-09-04 03:36] LABS: Polychromasia 1+
[2023-09-04 03:39] LABS: Cast Urine Automated 0 /lpf (0-5)
[2023-09-04 04:03] LABS: Troponin I High Sensitivity 93.2 pg/ml (0-14)
[2023-09-04 04:07] LABS: Adenovirus PCR Not Detected (NotDetected); Bordetella parapertussis PCR Not Detected (NotDetected); Bordetella pertussis PCR Not Detected (NotDetected); Chlamydia pneumoniae PCR Not Detected (NotDetected); Coronavirus 229E PCR Not Detected (NotDetected); Coronavirus CoV-2 (COVID19)PCR Not Detected (NotDetected); Coronavirus HKU1 PCR Not Detected (NotDetected); Coronavirus NL63 PCR Not Detected (NotDetected); Coronavirus OC43PCR Not Detected (NotDetected); Human Metapneumovirus PCR Not Detected (NotDetected); Influenza B PCR Not Detected (NotDetected); Mycoplasma pneumoniae PCR Not Detected (NotDetected); Parainfluenza Virus 1 PCR Not Detected (NotDetected); Parainfluenza Virus 2 PCR Not Detected (NotDetected); Parainfluenza Virus 3 PCR Not Detected (NotDetected); Parainfluenza Virus 4 PCR Not Detected (NotDetected); Respiratory Syncytial VirusPCR Not Detected (NotDetected); Rhinovirus/Enterovirus PCR Not Detected (NotDetected)
[2023-09-04] MEDS ORDERED: FUROSEMIDE 40 MG/4 ML VIAL IV ONE (04:13)
[2023-09-04] MEDS ORDERED: XOPENEX/ATROVENT 1.25mg/0.5MG NEB COMBO NEB STA (05:05)
[2023-09-04] MEDS ORDERED: LEVALBUTEROL 1.25 MG/3 ML NEB NEB STA (05:05)
[2023-09-04] MEDS ORDERED: IPRATROPIUM BROMIDE NEB SOLN 0.02% 0.5MG/2.5ML VIAL INH STA (05:05)
--- NOTE | 2023-09-04 05:07 | History & Physical Report ---
Date of Service September 04, 2023 Assessment & Plan (1) Acute hypoxemic respiratory failure: Plan: Secondary to decompensated heart failure Persistent pulmonary congestion noted during recent confinement for septic shock secondary to VRE UTI despite discharged on diuretic regimen History systolic dysfunction Troponin elevation secondary to above Atypical chest pain ? Symptomatic anemia Acute on chronic anemia, hemoglobin drop from baseline Patient without overt bleeding complaints, FOBT done at the ER was negative hx CAD/CVA as per records chronic LBBB PAF/PE/DVT currently on Eliquis, hx prothrombin gene mutation as per records hypertension, stable hyperlipidemia, statin therapy currently on hold while on daptomycin for VRE UTI hx COPD/asthma as per records/nocturnal hypoxia/WAYLON on home O2 at night hypothyroidism, euthyroid as of recent TSH last month cognitive dysfunction per records fibromyalgia as per records hx MRSA PCU BiPAP Check ABG Diuretic Rx, strict I/Os, daily weights, CHF education, fluid restriction Follow troponin, TTE if with significant progression Cardiology consult Re: Chest pain, CHF Transfuse PRBC to maintain hemoglobin of at least 8 once pulmonary congestion/respiratory distress improved DVT prophylaxis. Continue Eliquis if okay with Cardiology DNR Patient requesting updates for providers. Mr. Bennie Silva, contact #[phone]. Total critical care time was 40 minutes. Text document was generated using [employer] voice recognition software. It may contain grammatical or spelling errors. Kindly contact undersigned for clarification of any documentation item in question. History of Present Illness Chief Complaint: Chest pain, shortness of breath Primary Care Provider: Giorgio Salas DO History obtained from patient, family, and records. Limited history from patient secondary to disorientation. Medical history significant for chronic systolic heart failure (EF 35 to 40%, TTE 2022), CAD/CVA as per records, chronic LBBB, PAF/PE/DVT currently on Eliquis, prothrombin gene mutation as per records, hypertension, hyperlipidemia, COPD/asthma as per records, nocturnal hypoxia/WAYLON on home O2 at night, hypothyroidism, chronic anemia (baseline hemoglobin of 8-9), cognitive dysfunction per records, fibromyalgia as per records, history of VRE UTI ongoing Daptomycin Rx, history of MRSA. Recent confinement August 20 to 2023 for septic shock secondary to VRE UTI and influenza. Patient discharged to [facility] facility on IV daptomycin course to complete 2 weeks treatment. Pulmonary congestion noted during confinement. Patient discharged on Lasix 3 times weekly. Patient did not look well to family yesterday at rehab facility. She looked pale and sick as per family. Pleuritic central chest pain of undetermined duration as per patient account. Worsening shortness of breath noted. Patient denies headache, abdominal/back pain/bleeding complaints. Patient more confused than usual as per family. EMS administered 2 sublingual nitroglycerin tablets followed by nitro infusion. Chest pain unresponsive to intervention as per patient. BiPAP initiated, Lasix administered at the ER. 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 Allergies Allergy/AdvReac Type Severity Reaction Status Date / Time aspirin Allergy Intermediate ITCHING Verified 08/20/23 11:42 Sulfa (Sulfonamide Allergy Unknown PER Verified 08/20/23 11:42 Antibiotics) GMG--HAPPENED IN HOSPITAL Home Medications Medication Instructions Recorded Confirmed Type acetaminophen 325 mg tablet 650 mg PO Q4 PRN Pain 08/20/23 09/04/23 History (Tylenol) albuterol sulfate 90 mcg/actuation 2 puff inhalation Q4 PRN Shortness 08/20/23 09/04/23 History aerosol inhaler Of Breath Or Wheezing ascorbic acid (vitamin C) 500 mg 250 mg PO DAILY 08/20/23 09/04/23 History tablet (Vitamin C) atorvastatin 20 mg tablet 20 mg PO DAILY 08/20/23 09/04/23 History cholecalciferol (vitamin D3) 25 25 mcg PO DAILY 08/20/23 09/04/23 History mcg (1,000 unit) tablet clopidogrel 75 mg tablet 75 mg PO DAILY 08/20/23 09/04/23 History docusate sodium 100 mg capsule 100 mg PO BID 08/20/23 09/04/23 History duloxetine 30 mg capsule,delayed 60 mg PO BID 08/20/23 09/04/23 History release sprinkle ferrous sulfate 325 mg (65 mg 325 mg PO DAILY 08/20/23 09/04/23 History iron) tablet fluticasone furoate 100 1 inh inhalation DAILY 08/20/23 09/04/23 History mcg-vilanterol 25 mcg/dose inhalation powder (Breo Ellipta) lasmiditan 50 mg tablet (Reyvow) 50 mg PO DAILY PRN Migraine 08/20/23 09/04/23 History Headache levothyroxine 50 mcg tablet 50 mcg PO DAILY 08/20/23 09/04/23 History magnesium oxide 400 mg PO BIDM 08/20/23 09/04/23 History metoprolol succinate 50 mg 50 mg PO BID 08/20/23 09/04/23 History tablet,extended release 24 hr miconazole nitrate 2 % topical 1 applic topical BID 08/20/23 09/04/23 History powder montelukast 10 mg tablet 10 mg PO HS 08/20/23 09/04/23 History ondansetron HCl 4 mg tablet 4 mg PO Q4 PRN Nausea 08/20/23 09/04/23 History pantoprazole 40 mg tablet,delayed 40 mg PO DAILYBB 08/20/23 09/04/23 History release polyethylene glycol 3350 17 gram 17 g PO DAILY PRN Constipation 08/20/23 09/04/23 History oral powder packet (Miralax) sennosides 8.6 mg-docusate sodium 1 tab-cap PO .DAILY@LUNCH PRN 08/20/23 09/04/23 History 50 mg tablet (Senokot-S) Constipation tramadol 50 mg tablet 50 mg PO Q12 PRN Pain 08/20/23 09/04/23 History furosemide 20 mg tablet 20 mg PO UD #30 tabs 09/02/23 09/04/23 Rx ipratropium 0.5 mg-albuterol 3 mg 3 ml inhalation QID PRN shortness 09/02/23 09/04/23 Rx (2.5 mg base)/3 mL nebulization of breath or wheezing #90 mL soln apixaban 5 mg tablet (Eliquis) 5 mg PO BID 09/04/23 09/04/23 History daptomycin 500 mg intravenous 600 mg IV DAILY 09/04/23 09/04/23 History solution Past Med/Surg History Medical History (Updated 09/04/23 @ 05:27 by Len Orellana MD) Influenza A Compensated respiratory acidosis Acute kidney injury superimposed on CKD Complicated UTI (urinary tract infection) Anemia E coli bacteremia Acute kidney injury Abnormal urinalysis Chronic left hip pain Diffuse myofascial pain syndrome Chronic anticoagulation Opioid dependence History of pulmonary embolism Pulmonary edema History of OH (myocardial infarction) 2018 - FOLLOWS W/ DR. JACOBSEN On anticoagulant therapy History of endometriosis Osteoporosis Osteoarthritis Migraine Poor historian History of DVT (deep vein thrombosis) RLE - 20 YEARS AGO FOLLOWING INJURY On home oxygen therapy 2 LPM 02 QHS Sleep apnea NO DEVICE Hypertension Hypothyroidism Asthma USES PRN INH 1 X WK Pulmonary embolism (10/10/12) 20 YEARS AGO AFTER INJURY 30 YEARS AGO - POST OP CHOLEYCYSTECTOMY ON WARFARIN Atrial flutter PT COULD NOT CONFIRM Surgical History History of cardiac cath 2018 - [place] - NO STENTS History of left knee surgery History of tubal ligation History of section History of total abdominal hysterectomy and bilateral salpingo-oophorectomy History of appendectomy History of cholecystectomy History of cataract surgery History of tonsillectomy History of esophagogastroduodenoscopy (EGD) History of colonoscopy Family History Father , age 51 of cancer Esophageal cancer Lung cancer Mother , age 103 No problems noted. 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 [employer] Feels Safe at Home: Yes Assistive Devices: Hospital Bed, Nebulizer and Walker Review of Systems Review of Systems: Could not be reliably obtained secondary to disorientation Physical Exam Physical Exam: GENERAL: Slightly anxious, disoriented, obese, minimal respiratory distress SKIN: Pallor, warm HEENT: Pale palpebral conjunctivae, no ptosis, dry buccal mucosa, BiPAP in place NECK : Supple, short neck, no tenderness CHEST : Decreased breath sounds, occasional expiratory wheezes, no tenderness HEART : RRR, no obvious murmurs ABDOMEN: Some distention, nontender RECTAL : Intact sphincter, brown stool (FOBT negative) EXTREMITIES : Bilateral LE swelling right greater than the left, no LE tender ness, no other conspicuous deformities noted NEUROLOGIC : Disoriented, no facial asymmetry, slightly hard of hearing, gait and stance not assessed Results & Data Results & Data Vital Signs (Past 12 Hours) Vital Signs Temp Pulse Resp BP Pulse Ox O2 Del Method FiO2 09/04/23 03:17 100 H 22 96 BiPAP 40 09/04/23 03:17 96 BiPAP 40 09/04/23 02:48 103 H 09/04/23 02:25 36.7 C 104 H 26 H 140/81 96 BiPAP 40 09/04/23 02:25 CPAP 09/04/23 02:15 96 H 27 H 96 40 Laboratory Results Laboratory Results WBC 11.84 K/ul (4.8-10.8) H 09/04/23 02:50 RBC 2.35 M/uL (4.20-5.40) L 09/04/23 02:50 Hgb 7.9 g/dl (12.0-16.0) L 09/04/23 02:50 Hct 24.9 % (37.0-47.0) L 09/04/23 02:50 MCV 106.0 fL (80.0-100.0) H 09/04/23 02:50 MCH 33.6 pg (25.0-34.0) 09/04/23 02:50 MCHC 31.7 g/dL (32.0-36.0) L 09/04/23 02:50 RDW Std Deviation 65.5 fL (36.4-46.3) H 09/04/23 02:50 RDW Coeff of Vijay 17.0 % (11.5-14.5) H 09/04/23 02:50 Plt Count 297 K/uL (130-400) 09/04/23 02:50 MPV 10.8 fL (9.4-12.4) 09/04/23 02:50 Immature Gran % (Auto) 0.5 % 09/04/23 02:50 Neut % (Auto) 83.7 % 09/04/23 02:50 Lymph % (Auto) 8.3 % 09/04/23 02:50 Cameron % (Auto) 6.4 % 09/04/23 02:50 Eos % (Auto) 0.7 % 09/04/23 02:50 Baso % (Auto) 0.4 % 09/04/23 02:50 Neut # (Auto) 9.91 K/uL (1.40-6.50) H 09/04/23 02:50 Lymph # (Auto) 0.98 K/uL (1.20-3.40) L 09/04/23 02:50 Cameron # (Auto) 0.76 K/uL (0.11-0.59) H 09/04/23 02:50 Eos # (Auto) 0.08 K/uL (0.00-0.50) 09/04/23 02:50 Baso # (Auto) 0.05 K/uL (0.00-0.20) 09/04/23 02:50 Immature Gran # (Auto) 0.06 K/uL (0.01-0.20) 09/04/23 02:50 Polychromasia 1+ 09/04/23 02:50 Sodium 136 mmol/L (136-145) 09/04/23 02:50 Potassium 3.8 mmol/L (3.5-5.1) 09/04/23 02:50 Chloride 106 mmol/L (98-107) 09/04/23 02:50 Carbon Dioxide 24 mmol/L (21-32) 09/04/23 02:50 Anion Gap 6 (3-11) 09/04/23 02:50 BUN 28 mg/dl (6-23) H 09/04/23 02:50 Creatinine 0.73 mg/dl (0.6-1.2) 09/04/23 02:50 Est Cr Clr Drug Dosing 74.7 ml/min 09/04/23 02:50 Est GFR ( Amer) 89.5 ml/min 09/04/23 02:50 Est GFR (Non-Af Amer) 77.2 ml/min 09/04/23 02:50 BUN/Creatinine Ratio 38.4 (10-20) H 09/04/23 02:50 Glucose 106 mg/dl (70-99(Fasting)) H 09/04/23 02:50 Calcium 7.9 mg/dl (8.6-10.3) L 09/04/23 02:50 Magnesium 2.0 mg/dl (1.7-2.4) 09/04/23 02:50 Total Bilirubin 0.8 mg/dl (0.2-1.0) 09/04/23 02:50 AST 25 U/L (13-39) 09/04/23 02:50 ALT 8 U/L (7-52) 09/04/23 02:50 Alkaline Phosphatase 68 U/L (34-104) 09/04/23 02:50 Troponin I High Sens 93.2 pg/ml (0-14) H* 09/04/23 02:50 B-Natriuretic Peptide 4139 pg/ml (0-100) H 09/04/23 02:50 Total Protein 6.5 gm/dl (6.0-8.3) 09/04/23 02:50 Albumin 2.6 gm/dl (3.4-5.0) L 09/04/23 02:50 Globulin 3.9 gm/dl (2.5-4.0) 09/04/23 02:50 Albumin/Globulin Ratio 0.7 (0.9-2) L 09/04/23 02:50 Procalcitonin 0.32 ng/ml (0-0.5) 09/04/23 02:50 Urine Color Dark Yellow 09/04/23 03:00 Urine Appearance Cloudy (Clear) A 09/04/23 03:00 Urine pH 8.0 (4.5-7.5) H 09/04/23 03:00 Ur Specific [place] 1.019 (1.000-1.030) 09/04/23 03:00 Urine Protein 2+ (Negative) H 09/04/23 03:00 Urine Glucose (UA) Negative (Negative) 09/04/23 03:00 Urine Ketones Negative (Negative) 09/04/23 03:00 Urine Blood 2+ (Negative) H 09/04/23 03:00 Urine Nitrite Negative (Negative) 09/04/23 03:00 Urine Bilirubin Negative (Negative) 09/04/23 03:00 Urine Urobilinogen Negative (Negative) 09/04/23 03:00 Ur Leukocyte Esterase 3+ (Negative) H 09/04/23 03:00 Urine WBC (Auto) >30 /hpf (0-5) H 09/04/23 03:00 Urine RBC (Auto) >30 /hpf (0-4) H 09/04/23 03:00 U Hyaline Cast (Auto) 0 /lpf (0-5) 09/04/23 03:00 U Epithel Cells (Auto) 10-20 /lpf (0-5) H 09/04/23 03:00 Urine Bacteria (Auto) Negative (Negative) 09/04/23 03:00 Urine Yeast Budding w/ Hyphae (None Prsent) A 09/04/23 03:00 Diagnostic Findings Chest x-ray as per my interpretation congestion, atelectasis, bilateral pleural effusions, right greater than the left EKG as per my interpretation : Rate 110, sinus tachycardia, normal axis, septal infarct, nonspecific T wave abnormalities
[2023-09-04] MEDS ORDERED: traMADol HCL 50 MG TABLET PO PRN (05:11)
[2023-09-04] MEDS ORDERED: PROMETHAZINE HCL 6.25 MG in SODIUM CHLORIDE 0.9% 50 ML IV PRN (05:11)
[2023-09-04] MEDS ORDERED: MoRPHine SULFATE 2 MG/ML CARP IV PRN (05:11)
[2023-09-04] MEDS ORDERED: ACETAMINOPHEN 1,000 MG/100 ML VIAL IV STA (05:17)
[2023-09-04 05:26] LABS: Influenza A PCR Equivocal (NotDetected)
[2023-09-04 05:48] LABS: Base Excess ABG 0.9 mEq/L (-9-1.8); HCO3 ABG 24 mmol/L (19-24); Oxygen Saturation ABG 95.4 % (90-95); PCO2 ABG 33 mmHg (35-46); PO2 ABG 66 mmHg (80-95); pH ABG 7.47 (7.35-7.45)
[2023-09-04 05:54] LABS: Allen Test Pos (Pos)
[2023-09-04 06:04] LABS: Hematocrit (blood only) 24.6 % (37.0-47.0); Hemoglobin 7.8 g/dl (12.0-16.0)
[2023-09-04] MEDS: POTASSIUM CHLORIDE / WTR 10 MEQ/100 ML PLCT IV SCH ×2 (06:10→07:27)
[2023-09-04] MEDS: POTASSIUM CHLORIDE CRTAB 20 MEQ TABCR PO SCH ×2 (07:27→20:30)
--- NOTE | 2023-09-04 07:27 | XRay Report ---
XR chest 1V portable HISTORY: Dyspnea COMPARISON: Chest 08/28/2023. FINDINGS: There are low lung volumes with persistent elevation of the right hemidiaphragm. Perihilar interstitial/vascular thickening consistent with pulmonary edema. This is similar to the prior study. Bilateral pleural effusions and bibasilar densities persist. The heart remains mildly enlarged. A le ft PICC terminates in the SVC. Advanced degenerative changes again noted within the shoulders. IMPRESSION: 1. No change in the mild interstitial pulmonary edema and bilateral pleural effusions. 2. Bibasilar densities also persist. This may represent atelectasis or a pneumonia. ACT 112: Negative or not required by law. Electronically signed by: Clyde Jensen M.D. 09/04/2023 7:26 AM
[2023-09-04] MEDS ORDERED: POLYETHYLENE (MIRALAX) 17 GM PACK PO PRN (07:32)
[2023-09-04] MEDS ORDERED: NITROGLYCERIN SL 0.4 MG/TAB TAB SL PRN (07:32)
[2023-09-04] MEDS: DOCUSATE SODIUM 100 MG CAP PO SCH ×2 (08:29→20:33)
[2023-09-04] MEDS: DULoxetine HCL 60 MG CAP PO SCH ×2 (08:29→20:32)
[2023-09-04] MEDS: CLOPIDOGREL BISULFATE 75 MG TAB PO SCH (08:29)
[2023-09-04] MEDS: METOPROLOL SUCC 50MG EXT REL TAB PO SCH ×2 (08:30→20:31)
[2023-09-04] MEDS ORDERED: DAPTOmycin 600 MG in SYRINGE 0 ML IV SCH (08:30)
[2023-09-04] MEDS: FERROUS SULFATE 325 MG TAB PO SCH (08:30)
[2023-09-04] MEDS: LEVOTHYROXINE SODIUM 50 MCG TABLET PO SCH (08:30)
[2023-09-04] MEDS ORDERED: DAPTOmycin 500 MG VIAL IV SCH (09:00)
--- NOTE | 2023-09-04 09:49 | Cardiology Consultation ---
Date of Consultation September 04, 2023 Assessment & Plan (1) Acute hypoxemic respiratory failure: (2) Heart failure, systolic, with acute decompensation: (3) Nonischemic cardiomyopathy: (4) PAF (paroxysmal atrial fibrillation): (5) Chest pain at rest: Plan Continue IV diuresis with furosemide 40 mg twice per day Continue supplemental potassium as prescribed for now Add spironolactone 12.5 mg/day Continue evidence-based beta-hayden therapy with metoprolol succinate at 50 mg twice per day for now, titrating as tolerated after diuresis Add GDMT an ACEI/ARB or Entresto when able. Resume anticoagulation, RE: history of (? recurrent) DVT/PE and PAF with [id number] Score 8 points Continue clopidogrel, RE: CVA, Aspirin allergy Statin on hold, RE: daptomycin therapy Refer for resting echocardiography Avoid QT prolonging medications if able. Maintain hemoglobin greater than 8 Check blood cultures Antibiotics as per Hospitalist Supervising Physician Co-Signing Physician Notes Complex 83-year-old female with significant clinical decline over the preceding 3 months, multiple recent hospitalizations as described above and discharged to [facility] 09/02/2023. Patient reported chest discomfort and worsening shortness of breath at rehab. She was referred back to the ER early this morning at approximately 2 AM. Treated with sublingual nitroglycerin as well as a nitro infusion. Recent cardiac catheterization demonstrating minimal, nonobstructive coronary disease. BiPAP was initiated in the ER with administration of IV Lasix. Patient seen and examined at the bedside on the progressive care unit. She is alert currently, however somewhat of a poor historian. Evaluated by us speech pathology with concerns regarding passive aspiration due to decreased cognitive status in the setting of acute illness. Patient denies chest pain or shortness of breath at rest. No palpitations, lightheadedness, or dizziness. Telemetry reveals sinus rhythm in the 90s, with an underlying left bundle branch block. PE: VSS. Gen: NAD, chronically ill. Heart: Regular rhythm, normal S1-S2, 1/6 systolic ejection murmur. Lungs: Scattered rhonchi bilateral. No rales or wheeze. Extremities: + Right upper extremity edema with diffuse ecchymosis. 1+ bilateral lower extremity edema. A/P: Agree with above PA-C history, physical exam, assessment and plan. 83-year-old female admitted with multifactorial shortness of breath including acute decompensated heart failure, probable aspiration, and possible underlying infectious process with recent influenza diagnosis. Chest discomfort not likely due to ischemia with recent coronary angiography demonstrating minimal nonobstructive CAD. Echocardiogram without no regional wall motion abnormality. Stable, moderate LV systolic dysfunction noted. Continue IV diuretic therapy with supplemental potassium. Add low-dose spironolactone repeat basic metabolic panel in AM. Follow fluid balance, and daily weight. Continue metoprolol succinate. Restart Entresto when volume status improved. History of Present Illness Reason for Consultation: CHF, CP Requesting Physician: Dr. Orellana Attending Physician: Dr. Jayla Carbajal MD History of Present Illness Complex 83-year-old female with marked decline over the last 3 months, multiple recent complex hospitalizations. Cardiology consultation requested by Dr. Beverly bailey for evaluation of chest pain, CHF Patient hospitalized at [facility] July 26, 2023 to August 05, 2023 with septic shock from E. coli bacteremia, acute complicated pyelonephritis, toxic metabolic encephalopathy. Course complicated by atypical chest discomfort and mild acute decompensated heart failure. EKG with left bundle branch block. Elevated troponin. Resting echocardiography with moderate reduction in LV systolic function compared to prior study of December 2022. July 26, 2023 diagnostic cardiac catheterization ([facility], Dr. Grimes): Minimal nonobstructive coronary artery disease. Patient hospitalized at [facility] August 20, 2023 to September 02, 2023 with influenza and septic shock from VRE UTI. Patient discharged to [facility] on IV daptomycin to complete a 2-week course of treatment. Patient apparently did not look well at the family yesterday at rehab facility, with complaints of pleuritic chest pain as well as worsening shortness of breath and increased confusion. EMS summoned to [facility] with patient receiving 2 sublingual nitroglycerin tablets followed by nitroglycerin infusion without improvement in chest pain. BiPAP therapy initiated. IV Lasix administered in the ER. EKG revealed sinus tachycardia 109 bpm with left bundle branch block pattern, QRS duration 152 ms. High-sensitivity troponin 93.2 then 247.8 pg/mL. Chest x-ray with mild interstitial pulmonary edema and bilateral pleural effusions, elevated right hemidiaphragm, left-sided PICC line. Hemoglobin 7.8 g/dL Information obtained from chart review. No family members at bedside. Patient unable to provide any history at this time. Problem list: September 2017 NSTEMI. Diagnostic cardiac catheterization on September 30, [address] Ahuja with right dominant coronary anatomy with a normal RCA, normal left main, diffuse 10% distal LAD stenosis, normal large left circumflex coronary artery. Vascular access was notable difficult due to significant radial artery spasm. Past PE and DVT, on chronic anticoagulation Systolic heart failure, NYHA class III, EF 35 to 40%, chronic left bundle branch block Prothrombin gene mutation Obstructive lung disease Stroke in December 2022 with gait instability and recurrent falls Paroxysmal atrial fibrillation Hypertension Dyslipidemia Nocturnal hypoxemia/obstructive sleep apnea Renal dysfunction Chronic anemia Hypothyroidism Fibromyalgia Allergies Allergy/AdvReac Type Severity Reaction Status Date / Time aspirin Allergy Intermediate ITCHING Verified 08/20/23 11:42 Sulfa (Sulfonamide Allergy Unknown PER Verified 08/20/23 11:42 Antibiotics) GMG--HAPPENED IN HOSPITAL Home Medications Medication Instructions Recorded Confirmed Type acetaminophen 325 mg tablet 650 mg PO Q4 PRN Pain 08/20/23 09/04/23 History (Tylenol) albuterol sulfate 90 mcg/actuation 2 puff inhalation Q4 PRN Shortness 08/20/23 09/04/23 History aerosol inhaler Of Breath Or Wheezing ascorbic acid (vitamin C) 500 mg 250 mg PO DAILY 08/20/23 09/04/23 History tablet (Vitamin C) atorvastatin 20 mg tablet 20 mg PO DAILY 08/20/23 09/04/23 History cholecalciferol (vitamin D3) 25 25 mcg PO DAILY 08/20/23 09/04/23 History mcg (1,000 unit) tablet clopidogrel 75 mg tablet 75 mg PO DAILY 08/20/23 09/04/23 History docusate sodium 100 mg capsule 100 mg PO BID 08/20/23 09/04/23 History duloxetine 30 mg capsule,delayed 60 mg PO BID 08/20/23 09/04/23 History release sprinkle ferrous sulfate 325 mg (65 mg 325 mg PO DAILY 08/20/23 09/04/23 History iron) tablet fluticasone furoate 100 1 inh inhalation DAILY 08/20/23 09/04/23 History mcg-vilanterol 25 mcg/dose inhalation powder (Breo Ellipta) lasmiditan 50 mg tablet (Reyvow) 50 mg PO DAILY PRN Migraine 08/20/23 09/04/23 History Headache levothyroxine 50 mcg tablet 50 mcg PO DAILY 08/20/23 09/04/23 History magnesium oxide 400 mg PO BIDM 08/20/23 09/04/23 History metoprolol succinate 50 mg 50 mg PO BID 08/20/23 09/04/23 History tablet,extended release 24 hr miconazole nitrate 2 % topical 1 applic topical BID 08/20/23 09/04/23 History powder montelukast 10 mg tablet 10 mg PO HS 08/20/23 09/04/23 History ondansetron HCl 4 mg tablet 4 mg PO Q4 PRN Nausea 08/20/23 09/04/23 History pantoprazole 40 mg tablet,delayed 40 mg PO DAILYBB 08/20/23 09/04/23 History release polyethylene glycol 3350 17 gram 17 g PO DAILY PRN Constipation 08/20/23 09/04/23 History oral powder packet (Miralax) sennosides 8.6 mg-docusate sodium 1 tab-cap PO .DAILY@LUNCH PRN 08/20/23 09/04/23 History 50 mg tablet (Senokot-S) Constipation tramadol 50 mg tablet 50 mg PO Q12 PRN Pain 08/20/23 09/04/23 History furosemide 20 mg tablet 20 mg PO UD #30 tabs 09/02/23 09/04/23 Rx ipratropium 0.5 mg-albuterol 3 mg 3 ml inhalation QID PRN shortness 09/02/23 09/04/23 Rx (2.5 mg base)/3 mL nebulization of breath or wheezing #90 mL soln apixaban 5 mg tablet (Eliquis) 5 mg PO BID 09/04/23 09/04/23 History daptomycin 500 mg intravenous 600 mg IV DAILY 09/04/23 09/04/23 History solution Patient History Medical History Influenza A Compensated respiratory acidosis Acute kidney injury superimposed on CKD Complicated UTI (urinary tract infection) Anemia E coli bacteremia Acute kidney injury Abnormal urinalysis Chronic left hip pain Diffuse myofascial pain syndrome Chronic anticoagulation Opioid dependence History of pulmonary embolism Pulmonary edema History of VA (myocardial infarction) 2018 - FOLLOWS W/ DR. JACOBSEN On anticoagulant therapy History of endometriosis Osteoporosis Osteoarthritis Migraine Poor historian History of DVT (deep vein thrombosis) RLE - 20 YEARS AGO FOLLOWING INJURY On home oxygen therapy 2 LPM 02 QHS Sleep apnea NO DEVICE Hypertension Hypothyroidism Asthma USES PRN INH 1 X WK Pulmonary embolism (10/10/12) 20 YEARS AGO AFTER INJURY 30 YEARS AGO - POST OP CHOLEYCYSTECTOMY ON WARFARIN Atrial flutter PT COULD NOT CONFIRM Surgical History History of cardiac cath 2018 - [place] - NO STENTS History of left knee surgery History of tubal ligation History of section History of total abdominal hysterectomy and bilateral salpingo-oophorectomy History of appendectomy History of cholecystectomy History of cataract surgery History of tonsillectomy History of esophagogastroduodenoscopy (EGD) History of colonoscopy Family History Father , age 51 of cancer Esophageal cancer Lung cancer Mother , age 103 No problems noted. 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 Atraumatic. Eyes PER. Conjunctiva pink, sclera pale . Neck: + JVD + HJR Heart: Regular at 100 bpm. + Gallop. Systolic ejection murmur. No rub. Lungs: Rhonchorous breath sounds throughout. No wheeze. Abdomen: +BS. Soft. Nontender. No masses or organomegaly. Extremities: 1+ edema. No cyanosis. Stasis changes. Limited neurological examination is without acute focal deficits. Pulses: radial=2/4, posterior tibial=0/4. Results & Data Vital Signs (Past 12 Hours) Vital Signs Temp Pulse Pulse Resp BP BP Pulse Ox 09/04/23 07:36 09/04/23 07:20 94 H 20 95 09/04/23 07:05 37.3 C 96 H 29 H 128/70 95 09/04/23 06:42 98 H 24 118/55 L 100 09/04/23 06:30 98 H 26 H 100 09/04/23 06:20 99 H 26 H 100 09/04/23 06:10 101 H 25 H 100 09/04/23 06:05 100 H 24 100 09/04/23 06:00 127/93 09/04/23 06:00 102 H 26 H 100 09/04/23 06:00 101 H 26 H 127/93 100 09/04/23 05:50 102 H 27 H 100 09/04/23 05:40 102 H 25 H 100 09/04/23 05:30 157/66 H 09/04/23 05:30 102 H 23 98 09/04/23 05:20 102 H 23 94 09/04/23 05:10 100 H 24 97 09/04/23 05:00 102 H 26 H 94 09/04/23 05:00 145/93 H 09/04/23 04:50 104 H 22 96 09/04/23 04:40 102 H 28 H 93 09/04/23 04:30 154/78 H 09/04/23 04:30 102 H 26 H 88 L 09/04/23 04:20 101 H 26 H 98 09/04/23 04:10 100 H 25 H 100 09/04/23 04:00 99 H 24 97 09/04/23 04:00 157/82 H 09/04/23 03:50 97 H 25 H 100 09/04/23 03:40 99 H 35 H 100 09/04/23 03:30 154/108 H 09/04/23 03:30 100 H 52 H 99 09/04/23 03:20 101 H 48 H 97 09/04/23 03:17 100 H 22 96 09/04/23 03:17 96 09/04/23 03:10 100 H 23 95 09/04/23 03:00 102 H 21 97 09/04/23 03:00 160/82 H 09/04/23 02:56 146/81 H 09/04/23 02:56 102 H 22 94 09/04/23 02:50 102 H 20 96 09/04/23 02:48 103 H 09/04/23 02:40 105 H 23 96 09/04/23 02:30 106 H 23 91 09/04/23 02:25 36.7 C 104 H 26 H 140/81 96 09/04/23 02:25 09/04/23 02:20 112 H 26 H 09/04/23 02:19 140/81 09/04/23 02:19 106 H 25 H 09/04/23 02:15 96 H 27 H 96 O2 Del Method FiO2 09/04/23 07:36 CPAP 40 09/04/23 07:20 40 09/04/23 07:05 BiPAP 40 09/04/23 06:42 BiPAP 40 09/04/23 06:30 09/04/23 06:20 09/04/23 06:10 09/04/23 06:05 BiPAP 40 09/04/23 06:00 09/04/23 06:00 09/04/23 06:00 BiPAP 40 09/04/23 05:50 09/04/23 05:40 09/04/23 05:30 09/04/23 05:30 09/04/23 05:20 09/04/23 05:10 09/04/23 05:00 09/04/23 05:00 09/04/23 04:50 09/04/23 04:40 09/04/23 04:30 09/04/23 04:30 09/04/23 04:20 09/04/23 04:10 09/04/23 04:00 09/04/23 04:00 09/04/23 03:50 09/04/23 03:40 09/04/23 03:30 09/04/23 03:30 09/04/23 03:20 09/04/23 03:17 BiPAP 40 09/04/23 03:17 BiPAP 40 09/04/23 03:10 09/04/23 03:00 09/04/23 03:00 09/04/23 02:56 09/04/23 02:56 09/04/23 02:50 09/04/23 02:48 09/04/23 02:40 09/04/23 02:30 09/04/23 02:25 BiPAP 40 09/04/23 02:25 CPAP 09/04/23 02:20 09/04/23 02:19 09/04/23 02:19 09/04/23 02:15 40 Laboratory Results Cardiac Enzymes 09/04/23 09/04/23 Range/Units 02:50 05:40 AST 25 (13-39) U/L Troponin I High Sens 93.2 H* 247.8 H* D (0-14) pg/ml B-Natriuretic Peptide 4139 H (0-100) pg/ml Coagulation 09/04/23 Range/Units 02:50 B-Natriuretic Peptide 4139 H (0-100) pg/ml CBC 09/04/23 09/04/23 Range/Units 02:50 05:38 WBC 11.84 H (4.8-10.8) K/ul RBC 2.35 L (4.20-5.40) M/uL Hgb 7.9 L 7.8 L (12.0-16.0) g/dl Hct 24.9 L 24.6 L (37.0-47.0) % Plt Count 297 (130-400) K/uL Neut # (Auto) 9.91 H (1.40-6.50) K/uL Lymph # (Auto) 0.98 L (1.20-3.40) K/uL Lewis # (Auto) 0.76 H (0.11-0.59) K/uL Eos # (Auto) 0.08 (0.00-0.50) K/uL Baso # (Auto) 0.05 (0.00-0.20) K/uL Comprehensive Metabolic Panel 09/04/23 Range/Units 02:50 Sodium 136 (136-145) mmol/L Potassium 3.8 (3.5-5.1) mmol/L Chloride 106 (98-107) mmol/L Carbon Dioxide 24 (21-32) mmol/L BUN 28 H (6-23) mg/dl Creatinine 0.73 (0.6-1.2) mg/dl Glucose 106 H (70-99(Fasting)) mg/dl Calcium 7.9 L (8.6-10.3) mg/dl AST 25 (13-39) U/L ALT 8 (7-52) U/L Alkaline Phosphatase 68 (34-104) U/L Total Protein 6.5 (6.0-8.3) gm/dl Albumin 2.6 L (3.4-5.0) gm/dl Intake and Output 09/03/23 09/04/23 09/04/23 22:59 06:59 14:59 Intake Total 100 / 100 200 / 200 Output Total 800 / 800 Balance -700 / -700 200 / 200 Intake: IV 100 / 100 200 / 200 Acetaminophen 1,000 mg In 100 100 / 100 ml @ 400 mls/hr IV NOW STA Rx#: [id number] Potassium Chloride / Wtr 10 meq 200 / 200 In 100 ml @ 100 mls/hr IV Q1H [facility] Rx#:[id number] Output: Urine Amount (Catheter) 800 / 800 [place]/Indwelling 800 / 800 Other: Weight 103.2 kg 92.034 kg Weight Measurement Method Built in [facility] Built in [facility] Patient Weight 09/05/23 06:59 Weight 92.034 kg Diagnostic Findings July 26, 2023 TTE: Sinus tachycardia. Moderate concentric LVH. Septal motion consistent with conduction abnormality. Moderate global hypokinesis of the LV. EF 35 to 40%. Moderately calcified aortic valve leaflets without hemodynamically significant aortic valve stenosis. Severe mitral annular calcification. Thickened mitral valve leaflets with restricted mobility. No mitral valve stenosis. Doppler findings not suggestive of pulmonary hypertension. Telemetry: Sinus with left bundle branch block, heart rate currently in the 90s.
[2023-09-04] MEDS ORDERED: ATROPINE SULFATE 0.1 MG/ML 10ML SYR IV ONE (10:02)
[2023-09-04] MEDS ORDERED: METOPROLOL TARTRATE 1 MG/ML VIAL IV ONE (10:02)
[2023-09-04] MEDS ORDERED: DOBUTamine HCL 12.5 MG/ML 20 ML VIAL IV ONE (10:02)
[2023-09-04] MEDS: FLUTICASONE/VILANTEROL 100/25MCG 14 PUFFS/INHALER INH SCH (10:20)
[2023-09-04] MEDS: SPIRONOLACTONE 12.5 MG TAB PO SCH (12:52)
--- NOTE | 2023-09-04 17:25 | Palliative Care Consultation ---
Date of Consultation September 04, 2023 Assessment & Plan (1) Dyspnea and respiratory abnormalities: please consider low dose dilaudid 0.2mg IV q2h prn air hunger or pain please avoid use of morphine in this patient with advanced renal disease/nephropathy. Pt cannot have morphine because of the end stage renal failure - it is recommended that morphine (and codeine) are avoided in renal failure/dialysis patients, because when renal failure patients take morphine, their toxic metabolites, which are renally excreted, accumulate and can quickly cause over-opiation. Over opiation would be easily done with the use of a medication that pt cannot properly excrete. (2) Chest pain: Chest pain type: unspecified Qualified Code(s): R07.9 - Chest pain, unspecified (3) Weakness generalized: (4) Discussion about advance care planning held with family member: Telephonic ACP with pt and SDM, Bennie Breaux x 30min. He told me he has the expectation that "she gets through this infection and gets stronger to come home, she has to be able to handle herself and manage her chores." After more discussion he noted she is steadily declining--we spoke about how she may be transitioning from a process of living to a process of dying. He agreed and said that if she has any acute decline, please assure she is comfortable/does not suffer. Otherwise, for now, please continue all current interventions, he is planning to visit tomorrow/we have agreed to meet at 1130am. I shared with him that Mrs Breaux is verbalizing to nursing that she feels she is dying + suffering with her symptom burden. Mr Breaux replied that she asked him a week ago "why hasn't the Lord taken me home, I am ready to go." We spoke about how the changes and declines that are happening to her are adding to her burden of illness. We spoke about heart failure as a chronic, progressive illness which is not curable or reversible. We discussed the changes to expect as heart failure patients near the end of their lives, with attention to: patients may feel increasingly breathless both during activity and at rest, persistent coughing or wheezing/sometimes productive of white or pink mucus and can be worse at night or when lying down; sometimes more physical pain may be present that can often be relieved by non pharmacological remedies such as PT, massage, etc., additionally cognitive impairments may worsen and as such impair the patient's ability to be interactive with their loved ones - this can sometimes get better with improved volume status but it is unlikely to resolve. We spoke about how end-of-life care in patients with heart failure is an additive process, whereby therapies to treat symptoms not alleviated by guideline-based medical therapy are integrated into the care of these individuals. Once traditional medical therapies and nonpharmacologic therapies have been exhausted, low-dose opioids are generally felt to be first-line adjuvant therapy to treat dyspnea. Sometimes, providers may be uncomfortable with utilization of more potent opiates, which is why collaboration with hospice at the shelter will be useful. Finally, we discussed that as a patient transitions to the end of life with HF, there is so much more to do as far as reducing symptom burden and improving QOL - which we as providers can best address via a thoughtful ACP as we have discussed (and outlined above) in place. Medications can help stabilize/temporize but the disease progresses over time and eventually will become very severe/advanced stage nearing terminal/end of life. We also reviewed how adv heart failure can contribute to their worsening of MSOF along with declining PS. He was able to tell me he wants her to have comfort if she is dying. But he hopes she won't tonight so that he can see her tomorrow. He shares that they have been 63yrs; his heart is breaking - he said he's held off giving family members their holidays gifts until she was back home so they could wrap/deliver them together: He is struggling to come to terms with her mortality emotionally but has a very clear grasp of its likelihood on a more practical level. He is not ready at this time to move her to comfort care entirely even though he is aware she has been expressing that to other providers. If she has an acute worsening and is dying, he needs to be told "she is dying, we are keeping her comfortable" because of how he processes information. (5) Palliative care by specialist: Met with family. Provided overview of Palliative Medicine, a subspecialty that provides specialized medical care for people living with a serious illness by offering a focus on quality of life. Palliative Medicine is often conflated with hospice: I advised patient/family that Palliative and hospice can be partners but we are not the same. It is important to understand the difference so that we may be informed, and not afraid. Palliative Medicine works to improve QOL through reduction of symptom burden/more control over their illness, for both the patient and family. Palliative medicine clinicians are board certified, specially-trained and another member of the patient's medical care team. We of ten provide an extra layer of support because our care is based on the needs of the patient, not the prognosis; as such, it's appropriate at any age/advancing stage of a serious illness and can be provided along with curative treatment. Palliative Medicine clinicians are also trained in advanced communication methodologies, to facilitate complex discussions about advanced illness planning, which are needed to help assure that the treatment choices match the patient's goals, aka delivering Goal Concordant care. Finally, we discussed that hospice is a visiting nurse service that focuses on care delivered at the very end of life for patients with terminal illness, with life expectancy less than 6 month. Plan ACP as noted above If she worsens, move to comfort Primary team, nursing, cardiology updated Follow up meeting with sagar tomorrow at 1130am Thank you for allowing us to participate in the ongoing care of this patient. Please don't hesitate to call or page with any additional concerns. Dr. Nidhi Smith [facility] Director, Palliative Care History of Present Illness Reason for Consultation: "goals of care" Attending Physician: Jayla Carbajal MD History of Present Illness 83yo female admitted from [facility] having just been dc from [facility] 09/02/23 Mrs. Breaux has a complex history with severe decline over the last 3 months, recurrent hospital admissions. She was just recently admitted at [facility] 07/26 thru 08/05/23 for septic shock d/t E. coli bacteremia, acute complicated pyelonephritis, toxic metabolic encephalopathy. That admission was further complicated by atypical chest discomfort and mild acute decompensated heart failure and her EKG showed LBBB + elevated troponin. Her echo showed moderate reduction in LV systolic function compared to prior study of December 2022. On 07/26/23, she went for a diagnostic cardiac cath ([facility], Dr. Grimes): Minimal nonobstructive CAD. 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 Mrs. Breaux was readmitted to [facility] 08/20 thru 09/02/23 because of flu, septic shock and urosepsis d/t VRE. She was dc to [facility] for rehab on IV daptomycin which was to be a 2 week course. Per admitting notes: "Patient apparently did not look well at the family yesterday at rehab facility, with complaints of pleuritic chest pain as well as worsening shortness of breath and increased confusion. EMS summoned to [facility] with patient receiving 2 sublingual nitroglycerin tablets followed by nitroglycerin infusion without improvement in chest pain. BiPAP therapy initiated. IV Lasix administered in the ER. EKG revealed sinus tachycardia 109 bpm with left bundle branch block pattern, QRS duration 152 ms. High-sensitivity troponin 93.2 then 247.8 pg/mL. Chest x-ray with mild interstitial pulmonary edema and bilateral pleural effusions, elevated right hemidiaphragm, left-sided PICC line. Hemoglobin 7.8 g/dL." I was paged by bedside nurse asking for stat family meeting bc pt is steadily worsening: "She was taken off CPAP around lunch and placed on NC. Patient is too weak to really do anything including swallow. EF is 35-40%, is very slow to respond and has stated she is giving up and is ready for the lord to take her. She is DNR/DNI but really not looking well. Per the she has been like this since the beginning of July and isn't getting better. She has the flu, VRE, and MRSA in the nares. No motivation or energy to do anything." She has expressed desire to be kept comfortable and told nursing she is ready to , she is suffering too much and QOL is not what she finds acceptable anymore. She has expressed awareness that none of her medical issues are curable/reversible. Information obtained from chart review. Patient lethargic/unable to provide any history at this time. Allergies Allergy/AdvReac Type Severity Reaction Status Date / Time aspirin Allergy Intermediate ITCHING Verified 08/20/23 11:42 Sulfa (Sulfonamide Allergy Unknown PER Verified 08/20/23 11:42 Antibiotics) GMG--HAPPENED IN HOSPITAL Home Medications Medication Instructions Recorded Confirmed Type acetaminophen 325 mg tablet 650 mg PO Q4 PRN Pain 08/20/23 09/04/23 History (Tylenol) albuterol sulfate 90 mcg/actuation 2 puff inhalation Q4 PRN Shortness 08/20/23 09/04/23 History aerosol inhaler Of Breath Or Wheezing ascorbic acid (vitamin C) 500 mg 250 mg PO DAILY 08/20/23 09/04/23 History tablet (Vitamin C) atorvastatin 20 mg tablet 20 mg PO DAILY 08/20/23 09/04/23 History cholecalciferol (vitamin D3) 25 25 mcg PO DAILY 08/20/23 09/04/23 History mcg (1,000 unit) tablet clopidogrel 75 mg tablet 75 mg PO DAILY 08/20/23 09/04/23 History docusate sodium 100 mg capsule 100 mg PO BID 08/20/23 09/04/23 History duloxetine 30 mg capsule,delayed 60 mg PO BID 08/20/23 09/04/23 History release sprinkle ferrous sulfate 325 mg (65 mg 325 mg PO DAILY 08/20/23 09/04/23 History iron) tablet fluticasone furoate 100 1 inh inhalation DAILY 08/20/23 09/04/23 History mcg-vilanterol 25 mcg/dose inhalation powder (Breo Ellipta) lasmiditan 50 mg tablet (Reyvow) 50 mg PO DAILY PRN Migraine 08/20/23 09/04/23 History Headache levothyroxine 50 mcg tablet 50 mcg PO DAILY 08/20/23 09/04/23 History magnesium oxide 400 mg PO BIDM 08/20/23 09/04/23 History metoprolol succinate 50 mg 50 mg PO BID 08/20/23 09/04/23 History tablet,extended release 24 hr miconazole nitrate 2 % topical 1 applic topical BID 08/20/23 09/04/23 History powder montelukast 10 mg tablet 10 mg PO HS 08/20/23 09/04/23 History ondansetron HCl 4 mg tablet 4 mg PO Q4 PRN Nausea 08/20/23 09/04/23 History pantoprazole 40 mg tablet,delayed 40 mg PO DAILYBB 08/20/23 09/04/23 History release polyethylene glycol 3350 17 gram 17 g PO DAILY PRN Constipation 08/20/23 09/04/23 History oral powder packet (Miralax) sennosides 8.6 mg-docusate sodium 1 tab-cap PO .DAILY@LUNCH PRN 08/20/23 09/04/23 History 50 mg tablet (Senokot-S) Constipation tramadol 50 mg tablet 50 mg PO Q12 PRN Pain 08/20/23 09/04/23 History furosemide 20 mg tablet 20 mg PO UD #30 tabs 09/02/23 09/04/23 Rx ipratropium 0.5 mg-albuterol 3 mg 3 ml inhalation QID PRN shortness 09/02/23 09/04/23 Rx (2.5 mg base)/3 mL nebulization of breath or wheezing #90 mL soln apixaban 5 mg tablet (Eliquis) 5 mg PO BID 09/04/23 09/04/23 History daptomycin 500 mg intravenous 600 mg IV DAILY 09/04/23 09/04/23 History solution Patient History Medical History Influenza A Compensated respiratory acidosis Acute kidney injury superimposed on CKD Complicated UTI (urinary tract infection) Anemia E coli bacteremia Acute kidney injury Abnormal urinalysis Chronic left hip pain Diffuse myofascial pain syndrome Chronic anticoagulation Opioid dependence History of pulmonary embolism Pulmonary edema History of AK (myocardial infarction) 2018 - FOLLOWS W/ DR. JACOBSEN On anticoagulant therapy History of endometriosis Osteoporosis Osteoarthritis Migraine Poor historian History of DVT (deep vein thrombosis) RLE - 20 YEARS AGO FOLLOWING INJURY On home oxygen therapy 2 LPM 02 QHS Sleep apnea NO DEVICE Hypertension Hypothyroidism Asthma USES PRN INH 1 X WK Pulmonary embolism (10/10/12) 20 YEARS AGO AFTER INJURY 30 YEARS AGO - POST OP CHOLEYCYSTECTOMY ON WARFARIN Atrial flutter PT COULD NOT CONFIRM Surgical History History of cardiac cath 2018 - [place] - NO STENTS History of left knee surgery History of tubal ligation History of section History of total abdominal hysterectomy and bilateral salpingo-oophorectomy History of appendectomy History of cholecystectomy History of cataract surgery History of tonsillectomy History of esophagogastroduodenoscopy (EGD) History of colonoscopy Family History Father , age 51 of cancer Esophageal cancer Lung cancer Mother , age 103 No problems noted. 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 [employer] and [employer] Other Information That Helps Us Care for You: No Feels Safe at Home: Yes Safety Concerns: Feels Safe At This Time Assistive Devices: Cane, Nebulizer, Oxygen - at Night, Walker and Wheelchair Assistive Devices Comment: dentures present on admit Review of Systems Review of Systems: Unobtainable due to cognitive status and Unobtainable due to reduced consciousness Physical Exam Physical Exam: deferred/urgent family meeting requested Results & Data Vital Signs (Past 12 Hours) Vital Signs Temp Pulse Pulse Resp BP BP Pulse Ox 09/04/23 15:46 96 H 09/04/23 15:41 36.8 C 96 H 22 147/74 H 96 09/04/23 11:38 93 H 09/04/23 11:12 36.6 C 89 23 125/63 97 09/04/23 07:36 09/04/23 07:20 94 H 20 95 09/04/23 07:05 37.3 C 96 H 29 H 128/70 95 09/04/23 06:42 98 H 24 118/55 L 100 09/04/23 06:30 98 H 26 H 100 09/04/23 06:20 99 H 26 H 100 09/04/23 06:10 101 H 25 H 100 09/04/23 06:05 100 H 24 100 09/04/23 06:00 127/93 09/04/23 06:00 102 H 26 H 100 09/04/23 06:00 101 H 26 H 127/93 100 09/04/23 05:50 102 H 27 H 100 01/17/24 05:40 102 H 25 H 100 09/04/23 05:30 157/66 H 09/04/23 05:30 102 H 23 98 09/04/23 05:20 102 H 23 94 O2 Del Method O2 Flow Rate FiO2 09/04/23 15:46 09/04/23 15:41 Nasal Cannula 2 09/04/23 11:38 09/04/23 11:12 BiPAP 09/04/23 07:36 CPAP 40 09/04/23 07:20 40 09/04/23 07:05 BiPAP 40 09/04/23 06:42 BiPAP 40 09/04/23 06:30 09/04/23 06:20 09/04/23 06:10 09/04/23 06:05 BiPAP 40 09/04/23 06:00 09/04/23 06:00 09/04/23 06:00 BiPAP 40 09/04/23 05:50 09/04/23 05:40 09/04/23 05:30 09/04/23 05:30 09/04/23 05:20 Laboratory Results data reviewed Diagnostic Findings data reviewed PG Care Time/CCT Total # of Minutes Spent Total Time Spent: 75 Total Time Spent with Patient: Total time spent is greater than 50% in coordination of care (as documented) at patient's floor/unit and/or counseling patient: I spent 75 minutes overall addressing this case: 20 min in medical data review/discussion with referring p chelleder(s) and/or preparation for the visit unable to assess pt min in direct interaction with the patient/exam 30 min in Advance Care Planning/Goals of Care discussions as detailed above in note (must be >16min) 10 min in subsequent review and synthesis of assessment and plan 15 min communicating with other providers regarding the patient's case: MDM HIGH complexity Advanced Care Planning 96115 Advanced Care Planning 30 [place] [address] IN/OBS CONSULT LVL 5,80M Patient Type New History Comprehensive Exam Problem Focused Medical Decision Making High Complexity Diagnoses Dyspnea and respiratory abnormalities R06.00; R06.89 Chest pain R07.9 Chest pain type: unspecified Weakness generalized R53.1 Discussion about advance care planning held with family member Z71.0 Palliative care by specialist Z51.5 Additional Codes Advanced Care Planning - 85037 Advanced Care Planning 30 Min: 06596 Advanced Care Planning 30 Min ([id number])
--- NOTE | 2023-09-04 18:08 | Communication Note ---
Date of Service: September 04, 2023 The patient was seen and examined in telemetry unit. She was admitted early this morning with acute hypoxemic respiratory failure likely secondary to acute decompensated systolic heart failure complicated by possible infectious process. She has history of COPD/asthma and atrial fibrillation and also nonischemic cardiomyopathy given her other comorbid conditions. Minimally verbal during my examination and has been on BiPAP. Did not have any apparent distress during my examination. Remains extremely weak and lethargic and edematous. Palliative care will be consulted and a full progress note will be done tomorrow. Dr Radha Carbajal
[2023-09-04] MEDS: FUROSEMIDE 40 MG/4 ML VIAL IV SCH (20:47)
[2023-09-04] MEDS ORDERED: MONTELUKAST SODIUM 10 MG TABLET PO SCH (21:00)
[2023-09-05] MEDS: ACETAMINOPHEN 325 MG TAB PO PRN (00:55)
[2023-09-05] MEDS ORDERED: GLUCAGON FOR INJ 1 MG VIAL SQ PRN (01:53)
[2023-09-05] MEDS ORDERED: GLUCOSE 40% GEL 15 GM TUBE PO PRN (01:53)
[2023-09-05] MEDS ORDERED: DEXTROSE 50% 50 ML SYRINGE IV PRN (01:53)
[2023-09-05] MEDS ORDERED: CARBOHYDRATES FOR HYPOGLYCEMIA PO PRN (01:53)
[2023-09-05] MEDS ORDERED: GLUCOSE 10 TAB/TUBE PO PRN (01:53)
[2023-09-05] MEDS: LEVOTHYROXINE SODIUM 50 MCG TABLET PO SCH (05:37)
[2023-09-05 06:35] LABS: Basophils # (auto) 0.06 K/uL (0.00-0.20); Basophils % (auto) 0.6 %; Eosinophils # (auto) 0.14 K/uL (0.00-0.50); Eosinophils % (auto) 1.4 %; Hematocrit (blood only) 21.1 % (37.0-47.0); Immature Granulocytes # (auto) 0.06 K/uL (0.01-0.20); Immature Granulocytes % (auto) 0.6 %; Lymphocytes # (auto) 1.08 K/uL (1.20-3.40); Lymphocytes % (auto) 10.6 %; Mean Corpuscular Hemoglobin 34.8 pg (25.0-34.0); Mean Corpuscular Hgb Conc 33.2 g/dL (32.0-36.0); Mean Platelet Volume 10.9 fL (9.4-12.4); Monocytes # (auto) 0.66 K/uL (0.11-0.59); Monocytes % (auto) 6.5 %; Neutrophils # (auto) 8.18 K/uL (1.40-6.50); Neutrophils % (auto) 80.3 %; Platelet Count 257 K/uL (130-400); RDW Coefficient of Variation 17.3 % (11.5-14.5); RDW Standard Deviation 66.5 fL (36.4-46.3); Red Blood Count 2.01 M/uL (4.20-5.40); White Blood Count 10.18 K/ul (4.8-10.8)
[2023-09-05 06:57] LABS: BUN Creatinine Ratio 27.6 (10-20); Creatinine Clr Calc Pharmacy 51.3 ml/min; Est GFR (African American) 72.4 ml/min; Est GFR (Non-African American) 62.5 ml/min; Magnesium 1.8 mg/dl (1.7-2.4); Phosphorus 3.3 mg/dl (2.5-4.9); Potassium 3.8 mmol/L (3.5-5.1)
[2023-09-05 07:16] LABS: RBC Morphology Unremarkable
[2023-09-05] MEDS: FUROSEMIDE 40 MG/4 ML VIAL IV SCH ×2 (08:07→21:14)
[2023-09-05] MEDS ORDERED: METOPROLOL TARTRATE 1 MG/ML VIAL IV STA (08:11)
[2023-09-05] MEDS: PANTOprazole 40 MG TAB PO SCH (10:14)
[2023-09-05] MEDS: CLOPIDOGREL BISULFATE 75 MG TAB PO SCH (10:16)
[2023-09-05] MEDS: DOCUSATE SODIUM 100 MG CAP PO SCH ×2 (10:17→21:13)
[2023-09-05] MEDS: METOPROLOL SUCC 50MG EXT REL TAB PO SCH ×2 (10:17→21:14)
[2023-09-05] MEDS: DULoxetine HCL 60 MG CAP PO SCH ×2 (10:17→21:49)
[2023-09-05] MEDS: FLUTICASONE/VILANTEROL 100/25MCG 14 PUFFS/INHALER INH SCH (10:17)
[2023-09-05] MEDS: SPIRONOLACTONE 12.5 MG TAB PO SCH (10:17)
[2023-09-05] MEDS: POTASSIUM CHLORIDE CRTAB 20 MEQ TABCR PO SCH (10:17)
[2023-09-05] MEDS: FERROUS SULFATE 325 MG TAB PO SCH (10:17)
--- NOTE | 2023-09-05 10:48 | Cardiology Progress Note ---
Date of Service September 05, 2023 Assessment & Plan (1) Acute hypoxemic respiratory failure: (2) Heart failure, systolic, with acute decompensation: (3) Nonischemic cardiomyopathy: (4) PAF (paroxysmal atrial fibrillation): (5) Chest pain at rest: Plan Continue IV furosemide 40 mg twice per day with additional dose this afternoon. K+ riders and IV Lopressor ordered since unable to take PO. Direction of care to be determined. Admission and Anticipated Discharge Date Admission Date: September 04, 2023 Supervising Physician Co-Signing Physician Notes Complex 83-year-old female with significant clinical decline over the preceding 3 months, multiple recent hospitalizations as described above and discharged to [facility] 09/02/2023. Respiratory distress in the setting of rapid atrial fibrillation noted overnight with patient declining CPAP. Telemetry revealing atrial fibrillation/flutter with heart rate up to 180 bpm. Subsequent converted to sinus tachycardia. Currently resting comfortably. Denies chest pain or shortness of breath. PE: VSS. Gen: NAD, chronically ill. Heart: Regular rhythm, normal S1-S2, 1/6 systolic ejection murmur. Lungs: Scattered rhonchi bilateral. No rales or wheeze. Extremities: + Right upper extremity edema with diffuse ecchymosis. 1+ bilateral lower extremity edema. A/P: Agree with above PA-C history, physical exam, assessment and plan. 83-year-old female admitted with multifactorial shortness of breath including acute decompensated heart failure, probable aspiration, and possible underlying infectious process with recent influenza diagnosis. Paroxysmal atrial fibrillation and flutter with rapid ventricular recorded overnight with associated respiratory symptoms. Patient currently sinus rhythm. Unable to tolerate p.o. meds. Transition to IV Lopressor 5 mg every 4 hours. Continue IV furosemide 40 mg twice daily. Monitor daily weight, fluid balance, GFR, and electrolytes. Overall prognosis is poor. Palliative care input appreciated. Subjective Patient seen and examined. Chart, medications, and telemetry reviewed. Multiple family members at bedside; family meeting scheduled for 11:30 Refused to wear CPAP overnight. AM events noted, marked acute respiratory distress respiratory aided by supplemental oxygen/CPAP, IV Lasix, IV morphine. Probable atrial fibrillation/flutter during AM events noted with heart rates up to the 180 bpm. Oral metoprolol notably not given this AM though did receive 5 mg IV Lopressor. + Wet cough with difficulty expectorating. Denies chest pain. Denies palpitations. I/O's: -700 mL, -2,976 mL Review of Systems Review of Systems: A complete and accurate review of systems unable to be obtained Physical Exam Physical Exam: General: Chronically ill-appearing obese white female in no acute distress. HENT: Normocephalic. Atraumatic. Eyes PER. Conjunctiva pink, sclera pale . Neck: + JVD + HJR Heart: Regular at 110 bpm. + Gallop. Systolic ejection murmur. No rub. Lungs: Rhonchorous breath sounds throughout. No wheeze. Abdomen: +BS. Soft. Nontender. No masses or organomegaly. Extremities: Trace to 1+ edema. No cyanosis. Stasis changes. Limited neurological examination is without acute focal deficits. Pulses: radial=2/4, posterior tibial=0/4. Results & Data Vital Signs (Past 12 Hours) Vital Signs Temp Pulse Pulse Resp BP BP Pulse Ox 09/05/23 10:14 109 H 09/05/23 08:21 128 H 137/76 09/05/23 03:00 37.4 C 105 H 32 H 124/83 96 09/04/23 23:00 36.5 C 109 H 34 H 124/33 L 95 O2 Del Method 09/05/23 10:14 09/05/23 08:21 09/05/23 03:00 Nasal Cannula 09/04/23 23:00 Room Air Laboratory Results Cardiac Enzymes 09/04/23 Range/Units 09:59 Troponin I High Sens 417.2 H* D (0-14) pg/ml CBC 09/05/23 Range/Units 05:44 WBC 10.18 (4.8-10.8) K/ul RBC 2.01 L (4.20-5.40) M/uL Hgb 7.0 L (12.0-16.0) g/dl Hct 21.1 L (37.0-47.0) % Plt Count 257 (130-400) K/uL Neut # (Auto) 8.18 H (1.40-6.50) K/uL Lymph # (Auto) 1.08 L (1.20-3.40) K/uL Island # (Auto) 0.66 H (0.11-0.59) K/uL Eos # (Auto) 0.14 (0.00-0.50) K/uL Baso # (Auto) 0.06 (0.00-0.20) K/uL Comprehensive Metabolic Panel 09/05/23 Range/Units 05:44 Sodium 139 (136-145) mmol/L Potassium 3.8 (3.5-5.1) mmol/L Chloride 108 H (98-107) mmol/L Carbon Dioxide 25 (21-32) mmol/L BUN 24 H (6-23) mg/dl Creatinine 0.87 (0.6-1.2) mg/dl Glucose 75 (70-99(Fasting)) mg/dl Calcium 8.0 L (8.6-10.3) mg/dl Intake and Output 09/04/23 09/05/23 09/05/23 22:59 06:59 14:59 Output Total 800 / 3176 2376 / 3176 Balance -800 / -2976 -2376 / -2976 Output: Urine 975 / 975 Urine Amount (Catheter) 800 / 2200 1400 / 2200 [place]/Indwelling 800 / 2200 1400 / 2200 # Bowel Movements Other: Weight 88.6 kg
[2023-09-05] MEDS ORDERED: METOPROLOL TARTRATE 1 MG/ML VIAL IV SCH (12:00)
[2023-09-05] MEDS ORDERED: LORazepam 0.5 MG in SYRINGE 0.25 ML IV PRN (12:07)
[2023-09-05] MEDS ORDERED: ONDANSETRON INJ 2 MG/ML 2 ML VIAL IV PRN (12:07)
[2023-09-05] MEDS ORDERED: GLYCOPYRROLATE 0.2 MG/ML VIAL IV PRN (12:07)
--- NOTE | 2023-09-05 12:52 | Palliative Care Progress Note ---
Date of Service September 05, 2023 Assessment & Plan (1) Discussion about advance care planning held with family member: Plan: Family meeting was held in person today with and family x35min. Mr. Breaux states that she has been unable to perform ADLs at home and needs help with almost all. Quality of life has been declining over the past few months. Appetite has been decreased over the past few months, eats a few bites at a time. Family all expressed understanding that current disease process is related to [facility] decline in cardiac and pulmonary function. Discussed that end stage heart failure is not reversible. Mr. Breaux states that he does not want her to suffer and again reiterates that he wants her to be comfortable.He notes that multiple of his family members have from similar conditions in the past and he again notes that he does not want her to suffer. Family is all in agreement that next course of action will be comfort. Ultimate goal would be half-way with hospice. Family states that they would not be able to provide level of care needed for home hospice. states that first choice for placement would be [facility] as it is closest to home for Mr. Breaux. (2) Palliative care by specialist: Plan: Met with family. Provided overview of Palliative Medicine, a subspecialty that provides specialized medical care for people living with a serious illness by offering a focus on quality of life. Palliative Medicine is often conflated with hospice: I advised patient/family that Palliative and hospice can be partners but we are not the same. It is important to understand the difference so that we may be informed, and not afraid. Palliative Medicine works to improve QOL through reduction of symptom burden/more control over their illness, for both the patient and family. Palliative medicine clinicians are board certified, specially-trained and another member of the patient's medical care team. We often provide an extra layer of support because our care is based on the needs of the patient, not the prognosis; as such, it's appropriate at any age/advancing stage of a serious illness and can be provided along with curative treatment. Palliative Medicine clinicians are also trained in advanced communication methodologies, to facilitate complex discussions about advanced illness planning, which are needed to help assure that the treatment choices match the patient's goals, aka delivering Goal Concordant care. Finally, we discussed that hospice is a visiting nurse service that focuses on care delivered at the very end of life for patients with terminal illness, with life expectancy less than 6 month. (3) Dyspnea and respiratory abnormalities: Plan: - secondary to CHF, transition to comfort care (4) Weakness generalized: Plan - Plan to transition to comfort care with the ultimate goal of going to [facility] with hospice. Pt states that she is hunger, plan to advance diet as tolerating, permissive aspiration but discussed minimizing risks of aspiration with pt/family. Dilaudid prn for dyspnea/pain, given history of advanced renal disease would avoid morphine. Ativan prn agitation/anxiety. Glycopyrrolate prn for secretions. Can downgrade from PCU, can d/c quality assurance monitor. - [employer] written. Plan d/w primary team and nursing; CM to coordinate dispo planning TS 65min Thank you for allowing us to participate in the ongoing care of this patient. Please don't hesitate to call or page with any additional concerns. Dr. Nidhi Smith DNP Director, Palliative Care Admission and Anticipated Discharge Date Admission Date: September 04, 2023 Subjective Pt seen at bedside this morning. Awake and able to answer questions appropriately. Denies acute pain. Denies chest pain, pleuritic pain, nausea, dyspnea. Per nursing marked improvement from this morning. Was able to tolerate CPAP for a period. Review of Systems Review of Systems: As per above Physical Exam Physical Exam: Constitutional: no acute distress HEENT: bitemp wasting, perrla, EOMIs, MM dry, dentition fair, no conjunctival injection CV: regular rhythm, +LYNN, extremities well-perfused Resp: +rhonchi/rales, bronchitic cough, unable to expectorate, mildly increased work of breathing, +conversational dyspnea and use of accessory muscles noted GI: soft, nondistended, nontender, BS normoactive MSK: no gross deformities appreciated, +OA changes Skin: warm, dry, no rash appreciated Neuro: awake, no focal neurologic deficit appreciated Subdued mood Results & Data Vital Signs (Past 12 Hours) Vital Signs Temp Pulse Pulse Resp BP BP Pulse Ox 09/05/23 10:14 109 H 09/05/23 08:21 128 H 137/76 09/05/23 07:30 97 H 09/05/23 03:00 37.4 C 105 H 32 H 124/83 96 O2 Del Method 09/05/23 10:14 09/05/23 08:21 09/05/23 07:30 09/05/23 03:00 Nasal Cannula Laboratory Results data reviewed Diagnostic Findings data reviewed
[2023-09-05] MEDS ORDERED: FUROSEMIDE INJ 20 MG/2 ML VIAL IV ONE (14:00)
--- NOTE | 2023-09-05 14:22 | Hospitalist Progress Note ---
Date of Service September 05, 2023 Assessment & Plan (1) Acute hypoxemic respiratory failure: Plan: Secondary to decompensated systolic heart failure Persistent pulmonary congestion noted during recent confinement for septic shock secondary to VRE UTI despite discharged on diuretic regimen Chest x-ray consistent with pulmonary edema Has been getting intravenous Lasix as per recommendation of the readiness paraprofessional Appreciate cardiology input and recommendation Minimal improvement since admission Palliative care consulted for further management plan Atypical chest pain Minimal elevation of troponins-secondary to a strain doubt any ACS Could be symptomatic anemia Acute on chronic anemia, hemoglobin drop from baseline Patient without overt bleeding complaints, FOBT done at the ER was negative Patient requesting updates for providers. Mr. Bennie Silva, contact #[phone]. (2) Heart failure, systolic, with acute decompensation: Plan: History of nonischemic cardiomyopathy Echo was done on of this month showed EF of 35 to 40% with septal motion consistent with conductive abnormality, aortic valve calcification without significant stenosis and there is mitral annular calcification with minimal mitral regurgitation and tricuspid regurgitation as well Has been getting intravenous Lasix and other medication as per the cardiology Not showing any improvement since admission (3) Atrial fibrillation with rapid ventricular response: Plan: History of atrial fibrillation and came in with rapid ventricular response Complicating CHF Has been on beta-hayden and received intravenous beta-hayden to control the heart rate Will continue current medication as long as she can tolerate (4) Palliative care by specialist: Plan: Appreciate palliative care input and recommendation After long discussion with most of the family members and the patient it was decided that she should be going towards comfort care Family members and the patient were agreeable Will start clears orally with aspiration precaution-taking risk of aspiration Comfort care medications have been started She will be transferred to medical floor for comfort and quietness (5) Nonischemic cardiomyopathy: Plan: As above (6) Pulmonary embolism: Plan: Will discontinue Eliquis (7) COPD (chronic obstructive pulmonary disease): Plan: No acute exacerbation DVT prophylaxis Will discontinue Eliquis Plavix will be continued CODE STATUS DNR/DNI Going towards complete comfort care as mentioned above Admission and Anticipated Discharge Date Admission Date: September 04, 2023 Subjective 09/05/2023 The patient was seen and examined in presence of the family members in telemetry unit She has been in a little better today but remains critical Moderate shortness of breath at rest and has had tachycardia with a heart rate of 160s this morning Discussed about comfort care in presence of the family members and the palliative care service She will be transition to comfort care and will be transferred to medical floor this afternoon Review of Systems Review of Systems: Unobtainable due to cognitive status Physical Exam Physical Exam: Lying in bed with moderate shortness of breath Constitutional: well developed, well nourished, + ill appearing and + obese Eyes: PERRL, conjunctivae normal, anicteric sclerae ENMT: external ear and nose normal, oropharynx normal Neck: trachea midline, no thyromegaly Respiratory: + respiratory distress (Moderate shortne ss of breath at rest) Auscultation: + diminished lung sounds and + crackles (Coarse crackles bilaterally with wheezing bilaterally) Cardiovascular: Rate/Rhythm: + tachycardic and + irregularly irregular Heart Sounds: normal S1 and normal S2; no murmur Extremities: + edema (1-2+ edema bilaterally) Gastrointestinal (Abdomen): Inspection/Auscultation: normal bowel sounds; abdomen not distended Percussion/Palpation: abdomen soft; abdomen nontender Musculoskeletal: No acute arthritis in any joint Neurologic: Alert and awake. Extremely weak and lethargy, pleasantly confused Lymphatic: no cervical or axillary lymphadenopathy Results & Data Results & Data Vital Signs (Past 12 Hours) Vital Signs Temp Pulse Pulse Resp BP BP Pulse Ox 09/05/23 10:14 109 H 09/05/23 08:21 128 H 137/76 09/05/23 07:30 97 H 09/05/23 03:00 37.4 C 105 H 32 H 124/83 96 O2 Del Method 09/05/23 10:14 09/05/23 08:21 09/05/23 07:30 09/05/23 03:00 Nasal Cannula Laboratory Results Short CBC 09/05/23 Range/Units 05:44 WBC 10.18 (4.8-10.8) K/ul Hgb 7.0 L (12.0-16.0) g/dl Hct 21.1 L (37.0-47.0) % Plt Count 257 (130-400) K/uL BMP 09/05/23 05:44 Sodium 139 Potassium 3.8 Chloride 108 H Carbon Dioxide 25 BUN 24 H Creatinine 0.87 Glucose 75 Calcium 8.0 L Medications Administered Current Inpatient Medications Acetaminophen (Acetaminophen 325 Mg Tab) 650 mg PO Q4 PRN PRN Reason: Pain Stop: 10/04/23 07:31 Last Admin: 09/05/23 00:55 Dose: 650 mg Clopidogrel Bisulfate (Clopidogrel Bisulfate 75 Mg Tab) 75 mg PO DAILY [facility] Stop: 10/04/23 08:59 Last Admin: 09/05/23 10:16 Dose: Not Given Docusate Sodium (Docusate Sodium 100 Mg Cap) 100 mg PO BID [facility] Stop: 10/04/23 08:59 Last Admin: 09/05/23 10:17 Dose: Not Given Duloxetine HCl (Duloxetine Hcl 60 Mg Cap) 60 mg PO BID [facility] Stop: 10/04/23 08:59 Last Admin: 09/05/23 10:17 Dose: Not Given Ferrous Sulfate (Ferrous Sulfate 325 Mg Tab) 325 mg PO DAILY [facility] Stop: 10/04/23 08:59 Last Admin: 09/05/23 10:17 Dose: Not Given Fluticasone/Vilanterol (Fluticasone/Vilanterol 100/25mcg 14 Puffs/Inhaler) 1 puffs INH DAILY [facility] Stop: 10/04/23 08:59 Last Admin: 09/05/23 10:17 Dose: Not Given Furosemide (Furosemide 40 Mg/4 Ml Vial) 40 mg IV BID [facility] Stop: 09/05/23 21:01 Last Admin: 09/05/23 08:07 Dose: 40 mg Glycopyrrolate (Glycopyrrolate 0.2 Mg/Ml Vial) 0.4 mg IV Q4H PRN PRN Reason: Secretions or Pulm Congestion Stop: 10/05/23 12:06 Hydromorphone HCl (Hydromorphone Inj 0.5 Mg/0.5 Ml Syr) 0.25 mg IV Q3H PRN PRN Reason: dyspnea, pain Stop: 09/19/23 09:32 Lorazepam 0.5 mg/ Syringe 0.5 mls @ 2 mls/min IV Q4H PRN; Protocol PRN Reason: Anxiety/Agitation Stop: 10/05/23 12:06 Levothyroxine Sodium (Levothyroxine Sodium 50 Mcg Tablet) 50 mcg PO DAILYBB [facility] Stop: 10/04/23 08:59 Last Admin: 09/05/23 05:37 Dose: 50 mcg Metoprolol Succinate (Metoprolol Succ 50mg Ext Rel Tab) 50 mg PO BID [facility] Stop: 10/04/23 08:59 Last Admin: 09/05/23 10:17 Dose: Not Given Ondansetron HCl (Ondansetron Inj 2 Mg/Ml 2 Ml Vial) 4 mg IV Q4H PRN PRN Reason: Nausea &/or Vomiting Stop: 10/05/23 12:06 Pantoprazole Sodium (Pantoprazole 40 Mg Tab) 40 mg PO 0700 [facility] Stop: 10/05/23 06:59 Last Admin: 09/05/23 10:14 Dose: Not Given Polyethylene Glycol (Polyethylene (Miralax) 17 Gm Pack) 17 gm PO DAILY PRN PRN Reason: Constipation Stop: 10/04/23 07:31 Spironolactone (Spironolactone 12.5 Mg Tab) 12.5 mg PO DAILY [facility] Stop: 10/04/23 09:59 Last Admin: 09/05/23 10:17 Dose: Not Given
[2023-09-05] MEDS: POTASSIUM CHLORIDE / WTR 10 MEQ/100 ML PLCT IV SCH ×2 (16:18→16:19)
[2023-09-05] MEDS: HYDROmorphone INJ 0.5 MG/0.5 ML SYR IV PRN (21:01)
[2023-09-06] MEDS: PANTOprazole 40 MG TAB PO SCH (05:53)
[2023-09-06] MEDS: LEVOTHYROXINE SODIUM 50 MCG TABLET PO SCH (05:53)
[2023-09-06] MEDS: DOCUSATE SODIUM 100 MG CAP PO SCH ×2 (10:24→19:56)
[2023-09-06] MEDS: METOPROLOL SUCC 50MG EXT REL TAB PO SCH ×2 (10:37→20:05)
[2023-09-06] MEDS: SPIRONOLACTONE 12.5 MG TAB PO SCH (10:40)
[2023-09-06] MEDS: DULoxetine HCL 60 MG CAP PO SCH ×2 (10:41→20:24)
[2023-09-06] MEDS: CLOPIDOGREL BISULFATE 75 MG TAB PO SCH (10:42)
[2023-09-06] MEDS: FLUTICASONE/VILANTEROL 100/25MCG 14 PUFFS/INHALER INH SCH (11:34)
[2023-09-06] MEDS: HYDROmorphone INJ 0.5 MG/0.5 ML SYR IV PRN (16:46)
--- NOTE | 2023-09-06 17:14 | Hospitalist Progress Note ---
Date of Service September 06, 2023 Assessment & Plan (1) Palliative care by specialist: Plan: Appreciate palliative care input and recommendation After long discussion with most of the family members and the patient it was decided that she should be going towards comfort care Family members and the patient were agreeable Will start clears orally with aspiration precaution-taking risk of aspiration Comfort care medications have been started She will be transferred to medical floor for comfort and quietness She has been towards complete comfort care Has been getting medications for palliation Remains stable without any significant distress Will continue with current care (2) Acute hypoxemic respiratory failure: Plan: Other significant medical conditions as below: Secondary to decompensated systolic heart failure Persistent pulmonary congestion noted during recent confinement for septic shock secondary to VRE UTI despite discharged on diuretic regimen Chest x-ray consistent with pulmonary edema Has been getting intravenous Lasix as per recommendation of the pulmonary physician Appreciate cardiology input and recommendation Minimal improvement since admission Palliative care consulted for further management plan-as above Atypical chest pain Minimal elevation of troponins-secondary to a strain doubt any ACS Could be symptomatic anemia Acute on chronic anemia, hemoglobin drop from baseline Patient without overt bleeding complaints, FOBT done at the ER was negative Remains free from any pain Patient requesting updates for providers. Mr. Bennie Silva, contact #[phone]. (3) Heart failure, systolic, with acute decompensation: Plan: History of nonischemic cardiomyopathy Echo was done on of this month showed EF of 35 to 40% with septal motion consistent with conductive abnormality, aortic valve calcification without significant stenosis and there is mitral annular calcification with minimal mitral regurgitation and tricuspid regurgitation as well Has been getting intravenous Lasix and other medication as per the cardiology Not showing any improvement since admission (4) Atrial fibrillation with rapid ventricular response: Plan: History of atrial fibrillation and came in with rapid ventricular response Complicating CHF Has been on beta-hayden and received intravenous beta-hayden to control the heart rate Will continue current medication as long as she can tolerate (5) Nonischemic cardiomyopathy: Plan: As above (6) Pulmonary embolism: Plan: Will discontinue Eliquis (7) COPD (chronic obstructive pulmonary disease): Plan: No acute exacerbation DVT prophylaxis Will discontinue Eliquis Plavix will be continued CODE STATUS DNR/DNI Going towards complete comfort care as mentioned above Admission and Anticipated Discharge Date Admission Date: September 04, 2023 Subjective 09/05/2023 The patient was seen and examined in presence of the family members in telemetry unit She has been in a little better today but remains critical Moderate shortness of breath at rest and has had tachycardia with a heart rate of 160s this morning Discussed about comfort care in presence of the family members and the palliative care service She will be transition to comfort care and will be transferred to medical floor this afternoon 09/06/2023 The patient was seen and examined in medical floor She remains stable and denies any symptoms Minimal shortness of breath at rest and a little anxious Review of Systems Review of Systems: Could not be reliably obtained secondary to disorientation Physical Exam Physical Exam: Lying in bed with moderate shortness of breath Constitutional: well developed, well nourished, + ill appearing and + obese Eyes: PERRL, conjunctivae normal, anicteric sclerae ENMT: external ear and nose normal, oropharynx normal Neck: trachea midline, no thyromegaly Respiratory: + respiratory distress (Moderate shortne ss of breath at rest) Auscultation: + diminished lung sounds and + crackles (Coarse crackles bilaterally with wheezing bilaterally) Cardiovascular: Rate/Rhythm: + tachycardic and + irregularly irregular Heart Sounds: normal S1 and normal S2; no murmur Extremities: + edema (1-2+ edema bilaterally) Gastrointestinal (Abdomen): Inspection/Auscultation: normal bowel sounds; abdomen not distended Percussion/Palpation: abdomen soft; abdomen nontender Musculoskeletal: No acute arthritis involving any of the joint Neurologic: normal touch/pain/proprioception and moves all extremities; no focal motor deficits Remains generally weak and lethargic Lymphatic: no cervical or axillary lymphadenopathy Results & Data Results & Data Vital Signs (Past 12 Hours) Vital Signs Temp Pulse Resp BP Pulse Ox O2 Del Method O2 Flow Rate 09/06/23 10:45 Nasal Cannula 4 09/06/23 10:36 36.4 C L 74 14 137/83 91 Nasal Cannula 4 Medications Administered Current Inpatient Medications Acetaminophen (Acetaminophen 325 Mg Tab) 650 mg PO Q4 PRN PRN Reason: Pain Stop: 10/04/23 07:31 Last Admin: 09/05/23 00:55 Dose: 650 mg Clopidogrel Bisulfate (Clopidogrel Bisulfate 75 Mg Tab) 75 mg PO DAILY [facility] Stop: 10/04/23 08:59 Last Admin: 09/06/23 10:42 Dose: 75 mg Docusate Sodium (Docusate Sodium 100 Mg Cap) 100 mg PO BID [facility] Stop: 10/04/23 08:59 Last Admin: 09/06/23 10:24 Dose: Not Given Duloxetine HCl (Duloxetine Hcl 60 Mg Cap) 60 mg PO BID [facility] Stop: 10/04/23 08:59 Last Admin: 09/06/23 10:41 Dose: 60 mg Fluticasone/Vilanterol (Fluticasone/Vilanterol 100/25mcg 14 Puffs/Inhaler) 1 puffs INH DAILY [facility] Stop: 10/04/23 08:59 Last Admin: 09/06/23 11:34 Dose: 1 puffs Glycopyrrolate (Glycopyrrolate 0.2 Mg/Ml Vial) 0.4 mg IV Q4H PRN PRN Reason: Secretions or Pulm Congestion Stop: 10/05/23 12:06 Last Admin: 09/05/23 17:45 Dose: 0.4 mg Hydromorphone HCl (Hydromorphone Inj 0.5 Mg/0.5 Ml Syr) 0.25 mg IV Q3H PRN PRN Reason: dyspnea, pain Stop: 09/19/23 09:32 Last Admin: 09/05/23 21:01 Dose: 0.25 mg Lorazepam 0.5 mg/ Syringe 0.5 mls @ 2 mls/min IV Q4H PRN; Protocol PRN Reason: Anxiety/Agitation Stop: 10/05/23 12:06 Last Admin: 09/05/23 17:45 Dose: 2 mls/min Levothyroxine Sodium (Levothyroxine Sodium 50 Mcg Tablet) 50 mcg PO DAILYBB [facility] Stop: 10/04/23 08:59 Last Admin: 09/06/23 05:53 Dose: 50 mcg Metoprolol Succinate (Metoprolol Succ 50mg Ext Rel Tab) 50 mg PO BID [facility] Stop: 10/04/23 08:59 Last Admin: 09/06/23 10:37 Dose: 50 mg Ondansetron HCl (Ondansetron Inj 2 Mg/Ml 2 Ml Vial) 4 mg IV Q4H PRN PRN Reason: Nausea &/or Vomiting Stop: 10/05/23 12:06 Last Admin: 09/06/23 15:22 Dose: 4 mg Pantoprazole Sodium (Pantoprazole 40 Mg Tab) 40 mg PO 0700 [facility] Stop: 10/05/23 06:59 Last Admin: 09/06/23 05:53 Dose: 40 mg Polyethylene Glycol (Polyethylene (Miralax) 17 Gm Pack) 17 gm PO DAILY PRN PRN Reason: Constipation Stop: 10/04/23 07:31 Spironolactone (Spironolactone 12.5 Mg Tab) 12.5 mg PO DAILY [facility] Stop: 10/04/23 09:59 Last Admin: 09/06/23 10:40 Dose: 12.5 mg
--- NOTE | 2023-09-06 21:28 | Electrocardiogram Report ---
Test Reason : Blood Pressure : / mmHG Vent. Rate : 109 BPM Atrial Rate : 109 BPM P-R Int : 152 ms QRS Dur : 152 ms QT Int : 388 ms P-R-T Axes : 061 069 -84 degrees QTc Int : 522 ms Sinus tachycardia Left bundle branch block Abnormal ECG When compared with ECG of 22-AUG-2023 12:17, Premature ventricular complexes are no longer Present Questionable change in QRS axis Confirmed by Сергей Harmon ([id number] on 09/06/2023 9:28:01 PM Referred By: [facility] Confirmed By:Сергей Harmon
--- NOTE | 2023-09-07 02:59 | Palliative Care Progress Note ---
Date of Service September 07, 2023 Assessment & Plan (1) Dyspnea and respiratory abnormalities: Plan: comfort care orders in place (2) Weakness generalized: Plan: terminal heart failure + resp illness (3) Encounter for end of life care: (4) Palliative care by specialist: (5) Heart failure, systolic, with acute decompensation: (6) Nonischemic cardiomyopathy: (7) Influenza A: Plan Continue comfort care Supportive reassurance provided to pt - she is at peace with the plan for comfort and appreciative to se her wishes have been heard High risk for rapid decline/acute decomp from terminal illness Family seeking placement - see ACP/family mtg note from 09/05/23 Palliative Med is not in house over weekends but I am available by pager for u rgent needs, please page me if symptom mgt needs are not well controlled Thank you for allowing us to participate in the ongoing care of this patient. Please don't hesitate to call or page with any additional concerns. Dr. Nidhi Smith DNP Director, Palliative Care Admission and Anticipated Discharge Date Admission Date: September 04, 2023 Subjective Anh is on comfort care no acute issues this morning seems a little more awake but still very weak and easily dyspneic Review of Systems Review of Systems: All systems reviewed & are unremarkable except as noted in Subjective Physical Exam Physical Exam: Constitutional: no acute distress HEENT: bitemp wasting, perrla, EOMIs, MM dry, dentition fair, no conjunctival injection CV: regular rhythm, +LYNN, extremities well-perfused Resp: +rhonchi/rales, bronchitic cough, unable to expectorate, mildly increased work of breathing, +conversational dyspnea and use of accessory muscles noted GI: soft, nondistended, nontender, BS normoactive MSK: no gross deformities appreciated, +OA changes Skin: warm, dry, no rash appreciated Neuro: awake, no focal neurologic deficit appreciated Subdued mood Results & Data Vital Signs (Past 12 Hours) Vital Signs O2 Del Method O2 Flow Rate 09/06/23 23:42 Nasal Cannula 4 Laboratory Results no newlabs Diagnostic Findings no new labs PG Care Time/CCT Total # of Minutes Spent Total Time Spent: 60 Total Time Spent with Patient: Total time spent is greater than 50% in coordination of care (as documented) at patient's floor/unit and/or counseling patient: I spent 60 minutes overall addressing this case: 10 min in medical data review/discussion with referring provider(s) and/or preparation for the visit 20 min in direct interaction with the patient/exam 10 min in Advance Care Planning/Goals of Care discussions as detailed above in note (must be >16min) 15 min in subsequent review and synthesis of assessment and plan 5 min communicating with other providers regarding the patient's case: C[place] [address] SUB INP/OBS CARE 3/50MIN Patient Type Established History Comprehensive Exam Comprehensive Medical Decision Making High Complexity Diagnoses Dyspnea and respiratory abnormalities R06.00; R06.89 Weakness generalized R53.1 Encounter for end of life care Z51.5 Palliative care by specialist Z51.5 Heart failure, systolic, with acute decompensation I50.23 Nonischemic cardiomyopathy I42.8 Influenza A J10.1
[2023-09-07] MEDS: LEVOTHYROXINE SODIUM 50 MCG TABLET PO SCH (05:37)
[2023-09-07] MEDS: PANTOprazole 40 MG TAB PO SCH (05:40)
--- NOTE | 2023-09-07 07:07 | Electrocardiogram Report ---
Test Reason : Blood Pressure : / mmHG Vent. Rate : 095 BPM Atrial Rate : 095 BPM P-R Int : 172 ms QRS Dur : 160 ms QT Int : 436 ms P-R-T Axes : 061 -10 158 degrees QTc Int : 547 ms Normal sinus rhythm Left bundle branch block Abnormal ECG When compared with ECG of 04-SEP-2023 02:17, Questionable change in QRS axis T wave inversion less evident in Inferior leads Confirmed by Aiden Burnett ([id number]) on 09/07/2023 7:07:16 AM Referred By: [facility] Confirmed By:Dawood Burnett
[2023-09-07] MEDS: HYDROmorphone INJ 0.5 MG/0.5 ML SYR IV PRN ×2 (10:13→16:30)
[2023-09-07] MEDS: DOCUSATE SODIUM 100 MG CAP PO SCH ×2 (10:16→20:06)
[2023-09-07] MEDS: METOPROLOL SUCC 50MG EXT REL TAB PO SCH ×2 (10:16→20:15)
[2023-09-07] MEDS: DULoxetine HCL 60 MG CAP PO SCH ×2 (10:20→20:54)
[2023-09-07] MEDS: FLUTICASONE/VILANTEROL 100/25MCG 14 PUFFS/INHALER INH SCH (10:21)
[2023-09-07] MEDS: CLOPIDOGREL BISULFATE 75 MG TAB PO SCH (10:21)
[2023-09-07] MEDS: SPIRONOLACTONE 12.5 MG TAB PO SCH (10:22)
--- NOTE | 2023-09-07 14:21 | Hospitalist Progress Note ---
Date of Service September 07, 2023 Assessment & Plan (1) Palliative care by specialist: Plan: Appreciate palliative care input and recommendation After long discussion with most of the family members and the patient it was decided that she should be going towards comfort care Family members and the patient were agreeable Will start clears orally with aspiration precaution-taking risk of aspiration Comfort care medications have been started She will be transferred to medical floor for comfort and quietness She has been towards complete comfort care Has been getting medications for palliation Remains stable without any significant distress Remains stable without any acute distress Will continue current management plan (2) Acute hypoxemic respiratory failure: Plan: Other significant medical conditions as below: Secondary to decompensated systolic heart failure Persistent pulmonary congestion noted during recent confinement for septic shock secondary to VRE UTI despite discharged on diuretic regimen Chest x-ray consistent with pulmonary edema Has been getting intravenous Lasix as per recommendation of the respiratory tech Appreciate cardiology input and recommendation Minimal improvement since admission Palliative care consulted for further management plan-as above Atypical chest pain Minimal elevation of troponins-secondary to a strain doubt any ACS Could be symptomatic anemia Acute on chronic anemia, hemoglobin drop from baseline Patient without overt bleeding complaints, FOBT done at the ER was negative Has had chest pain last evening-resolved later on Patient requesting updates for providers. Mr. Bennie Silva, contact #[phone]. (3) Heart failure, systolic, with acute decompensation: Plan: History of nonischemic cardiomyopathy Echo was done on of this month showed EF of 35 to 40% with septal motion consistent with conductive abnormality, aortic valve calcification without s ignificant stenosis and there is mitral annular calcification with minimal mitral regurgitation and tricuspid regurgitation as well Has been getting intravenous Lasix and other medication as per the cardiology Not showing any improvement since admission (4) Atrial fibrillation with rapid ventricular response: Plan: History of atrial fibrillation and came in with rapid ventricular response Complicating CHF Has been on beta-hayden and received intravenous beta-hayden to control the heart rate Will continue current medication as long as she can tolerate (5) Nonischemic cardiomyopathy: Plan: As above (6) Pulmonary embolism: Plan: Will discontinue Eliquis (7) COPD (chronic obstructive pulmonary disease): Plan: No acute exacerbation DVT prophylaxis Will discontinue Eliquis Plavix will be continued CODE STATUS DNR/DNI Going towards complete comfort care as mentioned above Admission and Anticipated Discharge Date Admission Date: September 04, 2023 Subjective 09/05/2023 The patient was seen and examined in presence of the family members in telemetry unit She has been in a little better today but remains critical Moderate shortness of breath at rest and has had tachycardia with a heart rate of 160s this morning Discussed about comfort care in presence of the family members and the palliative care service She will be transition to comfort care and will be transferred to medical floor this afternoon 09/06/2023 The patient was seen and examined in medical floor She remains stable and denies any symptoms Minimal shortness of breath at rest and a little anxious 09/07/2023 The patient was seen and examined in medical floor She has been extremely weak and lethargic Has had some chest pain last evening that is relieved with intravenous Dilaudid Denies any acute symptoms this morning Review of Systems Review of Systems: Unobtainable due to cognitive status Physical Exam Physical Exam: Lying in bed with minimal shortness of breath Constitutional: well developed, well nourished, + ill appearing and + obese Eyes: PERRL, conjunctivae normal, anicteric sclerae ENMT: external ear and nose normal, oropharynx normal Neck: trachea midline, no thyromegaly Respiratory: + respiratory distress (Moderate shortne ss of breath at rest) Auscultation: + diminished lung sounds and + crackles (Coarse crackles bilaterally with wheezing bilaterally) Cardiovascular: Rate/Rhythm: + tachycardic and + irregularly irregular Heart Sounds: normal S1 and normal S2; no murmur Extremities: + edema (1-2+ edema bilaterally) Gastrointestinal (Abdomen): Inspection/Auscultation: normal bowel sounds; abdomen not distended Percussion/Palpation: abdomen soft; abdomen nontender Neurologic: normal touch/pain/proprioception and moves all extremities; no focal motor deficits Lymphatic: no cervical or axillary lymphadenopathy Results & Data Results & Data Vital Signs (Past 12 Hours) Vital Signs Temp Pulse Resp BP Pulse Ox O2 Del Method O2 Flow Rate 09/07/23 10:45 Nasal Cannula 4 09/07/23 08:10 36.7 C 88 16 119/73 96 Nasal Cannula 4 Medications Administered Current Inpatient Medications Acetaminophen (Acetaminophen 325 Mg Tab) 650 mg PO Q4 PRN PRN Reason: Pain Stop: 10/04/23 07:31 Last Admin: 09/05/23 00:55 Dose: 650 mg Clopidogrel Bisulfate (Clopidogrel Bisulfate 75 Mg Tab) 75 mg PO DAILY [facility] Stop: 10/04/23 08:59 Last Admin: 09/07/23 10:21 Dose: 75 mg Docusate Sodium (Docusate Sodium 100 Mg Cap) 100 mg PO BID [facility] Stop: 10/04/23 08:59 Last Admin: 09/07/23 10:16 Dose: Not Given Duloxetine HCl (Duloxetine Hcl 60 Mg Cap) 60 mg PO BID [facility] Stop: 10/04/23 08:59 Last Admin: 09/07/23 10:20 Dose: 60 mg Fluticasone/Vilanterol (Fluticasone/Vilanterol 100/25mcg 14 Puffs/Inhaler) 1 puffs INH DAILY [facility] Stop: 10/04/23 08:59 Last Admin: 09/07/23 10:21 Dose: 1 puffs Glycopyrrolate (Glycopyrrolate 0.2 Mg/Ml Vial) 0.4 mg IV Q4H PRN PRN Reason: Secretions or Pulm Congestion Stop: 10/05/23 12:06 Last Admin: 09/05/23 17:45 Dose: 0.4 mg Hydromorphone HCl (Hydromorphone Inj 0.5 Mg/0.5 Ml Syr) 0.25 mg IV Q3H PRN PRN Reason: dyspnea, pain Stop: 09/19/23 09:32 Last Admin: 09/07/23 10:13 Dose: 0.25 mg Lorazepam 0.5 mg/ Syringe 0.5 mls @ 2 mls/min IV Q4H PRN; Protocol PRN Reason: Anxiety/Agitation Stop: 10/05/23 12:06 Last Admin: 09/05/23 17:45 Dose: 2 mls/min Levothyroxine Sodium (Levothyroxine Sodium 50 Mcg Tablet) [facility] Stop: 10/04/23 08:59 Last Admin: 09/07/23 05:37 Dose: 50 mcg Metoprolol Succinate (Metoprolol Succ 50mg Ext Rel Tab) 50 mg PO BID [facility] Stop: 10/04/23 08:59 Last Admin: 09/07/23 10:16 Dose: 50 mg Ondansetron HCl (Ondansetron Inj 2 Mg/Ml 2 Ml Vial) 4 mg IV Q4H PRN PRN Reason: Nausea &/or Vomiting Stop: 10/05/23 12:06 Last Admin: 09/06/23 15:22 Dose: 4 mg Pantoprazole Sodium (Pantoprazole 40 Mg Tab) 40 mg PO 0700 [facility] Stop: 10/05/23 06:59 Last Admin: 09/07/23 05:40 Dose: 40 mg Polyethylene Glycol (Polyethylene (Miralax) 17 Gm Pack) 17 gm PO DAILY PRN PRN Reason: Constipation Stop: 10/04/23 07:31 Spironolactone (Spironolactone 12.5 Mg Tab) 12.5 mg PO DAILY [facility] Stop: 10/04/23 09:59 Last Admin: 09/07/23 10:22 Dose: 12.5 mg
[2023-09-08] MEDS: ACETAMINOPHEN 325 MG TAB PO PRN (03:34)
[2023-09-08] MEDS: LEVOTHYROXINE SODIUM 50 MCG TABLET PO SCH (05:33)
[2023-09-08] MEDS: PANTOprazole 40 MG TAB PO SCH (05:45)
[2023-09-08] MEDS: DOCUSATE SODIUM 100 MG CAP PO SCH ×2 (07:23→20:25)
[2023-09-08] MEDS: METOPROLOL SUCC 50MG EXT REL TAB PO SCH ×2 (09:20→20:26)
[2023-09-08] MEDS: SPIRONOLACTONE 12.5 MG TAB PO SCH (09:20)
[2023-09-08] MEDS: DULoxetine HCL 60 MG CAP PO SCH ×2 (09:21→20:26)
[2023-09-08] MEDS: CLOPIDOGREL BISULFATE 75 MG TAB PO SCH (09:21)
[2023-09-08] MEDS: FLUTICASONE/VILANTEROL 100/25MCG 14 PUFFS/INHALER INH SCH (09:22)
--- NOTE | 2023-09-08 13:10 | Hospitalist Progress Note ---
Date of Service September 08, 2023 Assessment & Plan (1) Palliative care by specialist: Plan: Appreciate palliative care input and recommendation After long discussion with most of the family members and the patient it was decided that she should be going towards comfort care Family members and the patient were agreeable Will start clears orally with aspiration precaution-taking risk of aspiration Comfort care medications have been started She will be transferred to medical floor for comfort and quietness She has been towards complete comfort care Has been getting medications for palliation Remains stable without any significant distress Remains stable without any acute distress Will continue current management plan Has been complaining more pain and Dilaudid will be changed to 0.25 mg every 2 hourly as needed to better control for pain Remains stable but critical (2) Acute hypoxemic respiratory failure: Plan: Other significant medical conditions as below: Secondary to decompensated systolic heart failure Persistent pulmonary congestion noted during recent confinement for septic shock secondary to VRE UTI despite discharged on diuretic regimen Chest x-ray consistent with pulmonary edema Has been getting intravenous Lasix as per recommendation of the fish stringer assembler Appreciate cardiology input and recommendation Minimal improvement since admission Palliative care consulted for further management plan-as above Requiring 4 L oxygen to maintain saturation Atypical chest pain Minimal elevation of troponins-secondary to a strain doubt any ACS Could be symptomatic anemia Acute on chronic anemia, hemoglobin drop from baseline Patient without overt bleeding complaints, FOBT done at the ER was negative Has had chest pain last evening-resolved later on No more chest pain Patient requesting updates for providers. Mr. Bennie Silva, contact #[phone]. (3) Heart failure, systolic, with acute decompensation: Plan: History of nonischemic cardiomyopathy Echo was done on of this month showed EF of 35 to 40% with septal motion consistent with conductive abnormality, aortic valve calcification without significant stenosis and there is mitral annular calcification with minimal mitral regurgitation and tricuspid regurgitation as well Has been getting intravenous Lasix and other medication as per the cardiology Not showing any improvement since admission (4) Atrial fibrillation with rapid ventricular response: Plan: History of atrial fibrillation and came in with rapid ventricular response Complicating CHF Has been on beta-hayden and received intravenous beta-hayden to control the heart rate Will continue current medication as long as she can tolerate (5) Nonischemic cardiomyopathy: Plan: As above (6) Pulmonary embolism: Plan: Will discontinue Eliquis (7) COPD (chronic obstructive pulmonary disease): Plan: No acute exacerbation DVT prophylaxis Will discontinue Eliquis Plavix will be continued CODE STATUS DNR/DNI Going towards complete comfort care as mentioned above Admission and Anticipated Discharge Date Admission Date: September 04, 2023 Subjective 09/05/2023 The patient was seen and examined in presence of the family members in telemetry unit She has been in a little better today but remains critical Moderate shortness of breath at rest and has had tachycardia with a heart rate of 160s this morning Discussed about comfort care in presence of the family members and the palliative care service She will be transition to comfort care and will be transferred to medical floor this afternoon 09/06/2023 The patient was seen and examined in medical floor She remains stable and denies any symptoms Minimal shortness of breath at rest and a little anxious 09/07/2023 The patient was seen and examined in medical floor She has been extremely weak and lethargic Has had some chest pain last evening that is relieved with intravenous Dilaudid Denies any acute symptoms this morning 09/08/2023 Patient was seen and examined in medical floor She has been stable but when asking questions she mentioned to have more pain Her pain medication will be adjusted Review of Systems Review of Systems: Could not be reliably obtained secondary to disorientation Physical Exam Physical Exam: Lying in bed with minimal shortness of breath Constitutional: well developed, well nourished, + ill appearing and + obese Eyes: PERRL, conjunctivae normal, anicteric sclerae ENMT: external ear and nose normal, oropharynx normal Neck: trachea midline, no thyromegaly Respiratory: + respiratory distress (Moderate shortne ss of breath at rest) Auscultation: + diminished lung sounds and + crackles (Coarse crackles bilaterally with wheezing bilaterally) Cardiovascular: Rate/Rhythm: + tachycardic and + irregularly irregular Heart Sounds: normal S1 and normal S2; no murmur Extremities: + edema (1-2+ edema bilaterally) Gastrointestinal (Abdomen): Inspection/Auscultation: normal bowel sounds; abdomen not distended Percussion/Palpation: abdomen soft; abdomen nontender Neurologic: normal touch/pain/proprioception and moves all extremities; no focal motor deficits Lymphatic: no cervical or axillary lymphadenopathy Results & Data Results & Data Vital Signs (Past 12 Hours) Vital Signs Temp Pulse Resp BP Pulse Ox O2 Del Method O2 Flow Rate 09/08/23 09:19 77 116/71 100 Nasal Cannula 4 09/08/23 08:30 Nasal CPAP 4 09/08/23 07:41 36.5 C 79 18 94/61 L 95 Nasal Cannula 4
[2023-09-08] MEDS: HYDROmorphone INJ 0.5 MG/0.5 ML SYR IV PRN (20:19)
[2023-09-09] MEDS: PANTOprazole 40 MG TAB PO SCH (05:38)
[2023-09-09] MEDS: LEVOTHYROXINE SODIUM 50 MCG TABLET PO SCH (05:38)
[2023-09-09] MEDS: CLOPIDOGREL BISULFATE 75 MG TAB PO SCH (07:48)
[2023-09-09] MEDS: METOPROLOL SUCC 50MG EXT REL TAB PO SCH ×2 (07:48→20:15)
[2023-09-09] MEDS: SPIRONOLACTONE 12.5 MG TAB PO SCH (07:49)
[2023-09-09] MEDS: FLUTICASONE/VILANTEROL 100/25MCG 14 PUFFS/INHALER INH SCH (07:50)
[2023-09-09] MEDS: DOCUSATE SODIUM 100 MG CAP PO SCH ×2 (07:50→20:15)
[2023-09-09] MEDS: DULoxetine HCL 60 MG CAP PO SCH ×2 (09:09→20:15)
--- NOTE | 2023-09-09 16:04 | Hospitalist Progress Note ---
Date of Service September 09, 2023 Assessment & Plan (1) Palliative care by specialist: Plan: Appreciate palliative care input and recommendation After long discussion with most of the family members and the patient it was decided that she should be going towards comfort care Family members and the patient were agreeable Will start clears orally with aspiration precaution-taking risk of aspiration Comfort care medications have been started She will be transferred to medical floor for comfort and quietness She has been towards complete comfort care Has been getting medications for palliation Remains stable without any significant distress Remains stable without any acute distress Will continue current management plan Has been complaining more pain and Dilaudid will be changed to 0.25 mg every 2 hourly as needed to better control for pain Remains stable but critical Remains free of any pain and/or symptoms-will give her comfortable (2) Acute hypoxemic respiratory failure: Plan: Other significant medical conditions as below: Secondary to decompensated systolic heart failure Persistent pulmonary congestion noted during recent confinement for septic shock secondary to VRE UTI despite discharged on diuretic regimen Chest x-ray consistent with pulmonary edema Has been getting intravenous Lasix as per recommendation of the oil process stillman Appreciate cardiology input and recommendation Minimal improvement since admission Palliative care consulted for further management plan-as above Requiring 4 L oxygen to maintain saturation Oxygen as needed Atypical chest pain Minimal elevation of troponins-secondary to a strain doubt any ACS Could be symptomatic anemia Acute on chronic anemia, hemoglobin drop from baseline Patient without overt bleeding complaints, FOBT done at the ER was negative Has had chest pain last evening-resolved later on No more chest pain Patient requesting updates for providers. Mr. Bennie Silva, contact #[phone]. (3) Heart failure, systolic, with acute decompensation: Plan: History of nonischemic cardiomyopathy Echo was done on of this month showed EF of 35 to 40% with septal motion consistent with conductive abnormality, aortic valve calcification without significant stenosis and there is mitral annular calcification with minimal mitral regurgitation and tricuspid regurgitation as well Has been getting intravenous Lasix and other medication as per the cardiology Not showing any improvement since admission (4) Atrial fibrillation with rapid ventricular response: Plan: History of atrial fibrillation and came in with rapid ventricular response Complicating CHF Has been on beta-hayden and received intravenous beta-hayden to control the heart rate Will continue current medication as long as she can tolerate (5) Nonischemic cardiomyopathy: Plan: As above (6) Pulmonary embolism: Plan: Will discontinue Eliquis (7) COPD (chronic obstructive pulmonary disease): Plan: No acute exacerbation DVT prophylaxis Will discontinue Eliquis Plavix will be continued CODE STATUS DNR/DNI Going towards complete comfort care as mentioned above Remains critical but stable Admission and Anticipated Discharge Date Admission Date: September 04, 2023 Subjective 09/05/2023 The patient was seen and examined in presence of the family members in telemetry unit She has been in a little better today but remains critical Moderate shortness of breath at rest and has had tachycardia with a heart rate of 160s this morning Discussed about comfort care in presence of the family members and the palliative care service She will be transition to comfort care and will be transferred to medical floor this afternoon 09/06/2023 The patient was seen and examined in medical floor She remains stable and denies any symptoms Minimal shortness of breath at rest and a little anxious 09/07/2023 The patient was seen and examined in medical floor She has been extremely weak and lethargic Has had some chest pain last evening that is relieved with intravenous Dilaudid Denies any acute symptoms this morning 09/08/2023 Patient was seen and examined in medical floor She has been stable but when asking questions she mentioned to have more pain Her pain medication will be adjusted 09/09/2023 The patient was seen and examined in medical She has been a little better today and has been communicating normally Pleasantly confused Denies any significant symptoms Review of Systems Review of Systems: All systems reviewed and are unremarkable except as noted below Physical Exam Physical Exam: Lying in bed with without any shortness of breath Constitutional: well developed, well nourished, + ill appearing and + obese Eyes: PERRL, conjunctivae normal, anicteric sclerae ENMT: external ear and nose normal, oropharynx normal Neck: trachea midline, no thyromegaly Respiratory: + respiratory distress (Moderate shortne ss of breath at rest) Auscultation: + diminished lung sounds and + crackles (Coarse crackles bilaterally with wheezing bilaterally) Cardiovascular: Rate/Rhythm: + tachycardic and + irregularly irregular Heart Sounds: normal S1 and normal S2; no murmur Extremities: + edema (1-2+ edema bilaterally) Gastrointestinal (Abdomen): Inspection/Auscultation: normal bowel sounds; abdomen not distended Percussion/Palpation: abdomen soft; abdomen nontender Neurologic: normal touch/pain/proprioception and moves all extremities; no focal motor deficits Lymphatic: no cervical or axillary lymphadenopathy Results & Data Results & Data Vital Signs (Past 12 Hours) Vital Signs Temp Pulse Resp BP Pulse Ox O2 Del Method O2 Flow Rate 09/09/23 14:29 36.6 C 74 16 114/75 96 Nasal Cannula 2 09/09/23 07:58 Nasal Cannula 09/09/23 07:45 36.5 C 74 16 126/73 97 Nasal Cannula 3.5 Medications Administered Current Inpatient Medications Acetaminophen (Acetaminophen 325 Mg Tab) 650 mg PO Q4 PRN PRN Reason: Pain Stop: 10/04/23 07:31 Last Admin: 09/08/23 03:34 Dose: 650 mg Clopidogrel Bisulfate (Clopidogrel Bisulfate 75 Mg Tab) 75 mg PO DAILY [facility] Stop: 10/04/23 08:59 Last Admin: 09/09/23 07:48 Dose: 75 mg Docusate Sodium (Docusate Sodium 100 Mg Cap) 100 mg PO BID [facility] Stop: 10/04/23 08:59 Last Admin: 09/09/23 07:50 Dose: Not Given Duloxetine HCl (Duloxetine Hcl 60 Mg Cap) 60 mg PO BID [facility] Stop: 10/04/23 08:59 Last Admin: 09/09/23 09:09 Dose: 60 mg Fluticasone/Vilanterol (Fluticasone/Vilanterol 100/25mcg 14 Puffs/Inhaler) 1 puffs INH DAILY [facility] Stop: 10/04/23 08:59 Last Admin: 09/09/23 07:50 Dose: 1 puffs Glycopyrrolate (Glycopyrrolate 0.2 Mg/Ml Vial) 0.4 mg IV Q4H PRN PRN Reason: Secretions or Pulm Congestion Stop: 10/05/23 12:06 Last Admin: 09/05/23 17:45 Dose: 0.4 mg Hydromorphone HCl (Hydromorphone Inj 0.5 Mg/0.5 Ml Syr) 0.25 mg IV Q2H PRN PRN Reason: dyspnea, pain Stop: 09/19/23 09:32 Last Admin: 09/08/23 20:19 Dose: 0.25 mg Lorazepam 0.5 mg/ Syringe 0.5 mls @ 2 mls/min IV Q4H PRN; Protocol PRN Reason: Anxiety/Agitation Stop: 10/05/23 12:06 Last Admin: 09/05/23 17:45 Dose: 2 mls/min Levothyroxine Sodium (Levothyroxine Sodium 50 Mcg Tablet) 50 mcg PO DAILYBB [facility] Stop: 10/04/23 08:59 Last Admin: 09/09/23 05:38 Dose: 50 mcg Metoprolol Succinate (Metoprolol Succ 50mg Ext Rel Tab) 50 mg PO BID [facility] Stop: 10/04/23 08:59 Last Admin: 09/09/23 07:48 Dose: 50 mg Ondansetron HCl (Ondansetron Inj 2 Mg/Ml 2 Ml Vial) 4 mg IV Q4H PRN PRN Reason: Nausea &/or Vomiting Stop: 10/05/23 12:06 Last Admin: 09/06/23 15:22 Dose: 4 mg Pantoprazole Sodium (Pantoprazole 40 Mg Tab) 40 mg PO 0700 [facility] Stop: 10/05/23 06:59 Last Admin: 09/09/23 05:38 Dose: 40 mg Polyethylene Glycol (Polyethylene (Miralax) 17 Gm Pack) 17 gm PO DAILY PRN PRN Reason: Constipation Stop: 10/04/23 07:31 Spironolactone (Spironolactone 12.5 Mg Tab) 12.5 mg PO DAILY [facility] Stop: 10/04/23 09:59 Last Admin: 09/09/23 07:49 Dose: 12.5 mg
[2023-09-09] MEDS: ACETAMINOPHEN 325 MG TAB PO PRN (20:18)
[2023-09-10] MEDS: LEVOTHYROXINE SODIUM 50 MCG TABLET PO SCH (05:41)
[2023-09-10] MEDS: PANTOprazole 40 MG TAB PO SCH (06:13)
[2023-09-10] MEDS: CLOPIDOGREL BISULFATE 75 MG TAB PO SCH (09:12)
[2023-09-10] MEDS: DULoxetine HCL 60 MG CAP PO SCH ×2 (09:12→19:48)
[2023-09-10] MEDS: SPIRONOLACTONE 12.5 MG TAB PO SCH (09:12)
[2023-09-10] MEDS: DOCUSATE SODIUM 100 MG CAP PO SCH ×2 (09:13→19:48)
[2023-09-10] MEDS: FLUTICASONE/VILANTEROL 100/25MCG 14 PUFFS/INHALER INH SCH (09:13)
[2023-09-10] MEDS: METOPROLOL SUCC 50MG EXT REL TAB PO SCH ×2 (09:13→19:48)
[2023-09-10] MEDS: HYDROmorphone INJ 0.5 MG/0.5 ML SYR IV PRN ×3 (13:18→23:51)
--- NOTE | 2023-09-10 17:14 | Hospitalist Progress Note ---
Date of Service September 10, 2023 Assessment & Plan (1) Palliative care by specialist: Plan: Appreciate palliative care input and recommendation After long discussion with most of the family members and the patient it was decided that she should be going towards comfort care Family members and the patient were agreeable Will start clears orally with aspiration precaution-taking risk of aspiration Comfort care medications have been started She will be transferred to medical floor for comfort and quietness She has been towards complete comfort care Has been getting medications for palliation Remains stable without any significant distress Remains stable without any acute distress Will continue current management plan Has been complaining more pain and Dilaudid will be changed to 0.25 mg every 2 hourly as needed to better control for pain Remains stable but critical Remains free of any pain and/or symptoms-will give her comfortable Has been stable without any acute distress and her pain or shortness of breath Wanted to have solid food and is provided as tolerated. Remains critical but stable (2) Acute hypoxemic respiratory failure: Plan: Other significant medical conditions as below: Secondary to decompensated systolic heart failure Persistent pulmonary congestion noted during recent confinement for septic shock secondary to VRE UTI despite discharged on diuretic regimen Chest x-ray consistent with pulmonary edema Has been getting intravenous Lasix as per recommendation of the clinical pharmacy technician Appreciate cardiology input and recommendation Minimal improvement since admission Palliative care consulted for further management plan-as above Requiring 4 L oxygen to maintain saturation Oxygen as needed Atypical chest pain Minimal elevation of troponins-secondary to a strain doubt any ACS Could be symptomatic anemia Acute on chronic anemia, hemoglobin drop from baseline Patient without overt bleeding complaints, FOBT done at the ER was negative Has had chest pain last evening-resolved later on No more chest pain Patient requesting updates for providers. Mr. Bennie Silva, contact #[phone]. (3) Heart failure, systolic, with acute decompensation: Plan: History of nonischemic cardiomyopathy Echo was done on of this month showed EF of 35 to 40% with septal motion consistent with conductive abnormality, aortic valve calcification without significant stenosis and there is mitral annular calcification with minimal mitral regurgitation and tricuspid regurgitation as well Has been getting intravenous Lasix and other medication as per the cardiology Not showing any improvement since admission (4) Atrial fibrillation with rapid ventricular response: Plan: History of atrial fibrillation and came in with rapid ventricular response Complicating CHF Has been on beta-hayden and received intravenous beta-hayden to control the heart rate Will continue current medication as long as she can tolerate (5) Nonischemic cardiomyopathy: Plan: As above (6) Pulmonary embolism: Plan: Will discontinue Eliquis (7) COPD (chronic obstructive pulmonary disease): Plan: No acute exacerbation DVT prophylaxis Will discontinue Eliquis Plavix will be continued CODE STATUS DNR/DNI Going towards complete comfort care as mentioned above Remains critical but stable Admission and Anticipated Discharge Date Admission Date: September 04, 2023 Subjective 09/05/2023 The patient was seen and examined in presence of the family members in telemetry unit She has been in a little better today but remains critical Moderate shortness of breath at rest and has had tachycardia with a heart rate of 160s this morning Discussed about comfort care in presence of the family members and the palliative care service She will be transition to comfort care and will be transferred to medical floor this afternoon 09/06/2023 The patient was seen and examined in medical floor She remains stable and denies any symptoms Minimal shortness of breath at rest and a little anxious 09/07/2023 The patient was seen and examined in medical floor She has been extremely weak and lethargic Has had some chest pain last evening that is relieved with intravenous Dilaudid Denies any acute symptoms this morning 09/08/2023 Patient was seen and examined in medical floor She has been stable but when asking questions she mentioned to have more pain Her pain medication will be adjusted 09/09/2023 The patient was seen and examined in medical She has been a little better today and has been communicating normally Pleasantly confused Denies any significant symptoms 09/10/2023 The patient was seen and examined in medical floor in presence of the family members She has been much better and remains extremely weak and lethargic Wanted to have advance diet as tolerated and was provided Review of Systems Review of Systems: All systems reviewed and are unremarkable except as noted below Physical Exam Physical Exam: Lying in bed with without any shortness of breath Constitutional: well developed, well nourished, + ill appearing and + obese Eyes: PERRL, conjunctivae normal, anicteric sclerae ENMT: external ear and nose normal, oropharynx normal Neck: trachea midline, no thyromegaly Respiratory: + respiratory distress (Moderate shortne ss of breath at rest) Auscultation: + diminished lung sounds and + crackles (Coarse crackles bilat erally with wheezing bilaterally) Cardiovascular: Rate/Rhythm: + tachycardic and + irregularly irregular Heart Sounds: normal S1 and normal S2; no murmur Extremities: + edema (1-2+ edema bilaterally) Gastrointestinal (Abdomen): Inspection/Auscultation: normal bowel sounds; abdomen not distended Percussion/Palpation: abdomen soft; abdomen nontender Neurologic: normal touch/pain/proprioception and moves all extremities; no focal motor deficits Lymphatic: no cervical or axillary lymphadenopathy Results & Data Results & Data Vital Signs (Past 12 Hours) Vital Signs Pulse BP O2 Del Method O2 Flow Rate 09/10/23 09:12 74 118/68 09/10/23 07:25 Nasal Cannula 2 Medications Administered Current Inpatient Medications Acetaminophen (Acetaminophen 325 Mg Tab) 650 mg PO Q4 PRN PRN Reason: Pain Stop: 10/04/23 07:31 Last Admin: 09/09/23 20:18 Dose: 650 mg Clopidogrel Bisulfate (Clopidogrel Bisulfate 75 Mg Tab) 75 mg PO DAILY [facility] Stop: 10/04/23 08:59 Last Admin: 09/10/23 09:12 Dose: 75 mg Docusate Sodium (Docusate Sodium 100 Mg Cap) 100 mg PO BID [facility] Stop: 10/04/23 08:59 Last Admin: 09/10/23 09:13 Dose: Not Given Duloxetine HCl (Duloxetine Hcl 60 Mg Cap) 60 mg PO BID [facility] Stop: 10/04/23 08:59 Last Admin: 09/10/23 09:12 Dose: 60 mg Fluticasone/Vilanterol (Fluticasone/Vilanterol 100/25mcg 14 Puffs/Inhaler) 1 puffs INH DAILY [facility] Stop: 10/04/23 08:59 Last Admin: 09/10/23 09:13 Dose: 1 puffs Glycopyrrolate (Glycopyrrolate 0.2 Mg/Ml Vial) 0.4 mg IV Q4H PRN PRN Reason: Secretions or Pulm Congestion Stop: 10/05/23 12:06 Last Admin: 09/05/23 17:45 Dose: 0.4 mg Heparin Sodium (Beef Lung) (Heparin 10 Unit/Ml 5 Ml Flush) 5 ml FLUSH PRN PRN PRN Reason: Flush Stop: 10/10/23 13:06 Last Admin: 09/10/23 13:19 Dose: 5 ml Hydromorphone HCl (Hydromorphone Inj 0.5 Mg/0.5 Ml Syr) 0.25 mg IV Q2H PRN PRN Reason: dyspnea, pain Stop: 09/19/23 09:32 Last Admin: 09/10/23 13:18 Dose: 0.25 mg Lorazepam 0.5 mg/ Syringe 0.5 mls @ 2 mls/min IV Q4H PRN; Protocol PRN Reason: Anxiety/Agitation Stop: 10/05/23 12:06 Last Admin: 09/05/23 17:45 Dose: 2 mls/min Levothyroxine Sodium (Levothyroxine Sodium 50 Mcg Tablet) 50 mcg PO DAILYBB [facility] Stop: 10/04/23 08:59 Last Admin: 09/10/23 05:41 Dose: 50 mcg Metoprolol Succinate (Metoprolol Succ 50mg Ext Rel Tab) 50 mg PO BID [facility] Stop: 10/04/23 08:59 Last Admin: 09/10/23 09:13 Dose: 50 mg Ondansetron HCl (Ondansetron Inj 2 Mg/Ml 2 Ml Vial) 4 mg IV Q4H PRN PRN Reason: Nausea &/or Vomiting Stop: 10/05/23 12:06 Last Admin: 09/06/23 15:22 Dose: 4 mg Pantoprazole Sodium (Pantoprazole 40 Mg Tab) 40 mg PO 0700 [facility] Stop: 10/05/23 06:59 Last Admin: 09/10/23 06:13 Dose: 40 mg Polyethylene Glycol (Polyethylene (Miralax) 17 Gm Pack) 17 gm PO DAILY PRN PRN Reason: Constipation Stop: 10/04/23 07:31 Spironolactone (Spironolactone 12.5 Mg Tab) 12.5 mg PO DAILY [facility] Stop: 10/04/23 09:59 Last Admin: 09/10/23 09:12 Dose: 12.5 mg
[2023-09-11] MEDS: LEVOTHYROXINE SODIUM 50 MCG TABLET PO SCH (05:25)
[2023-09-11] MEDS: PANTOprazole 40 MG TAB PO SCH (06:06)
[2023-09-11] MEDS: SPIRONOLACTONE 12.5 MG TAB PO SCH (08:14)
[2023-09-11] MEDS: FLUTICASONE/VILANTEROL 100/25MCG 14 PUFFS/INHALER INH SCH (08:15)
[2023-09-11] MEDS: DOCUSATE SODIUM 100 MG CAP PO SCH ×2 (08:15→21:13)
[2023-09-11] MEDS: CLOPIDOGREL BISULFATE 75 MG TAB PO SCH (08:15)
[2023-09-11] MEDS: METOPROLOL SUCC 50MG EXT REL TAB PO SCH ×2 (08:15→21:14)
[2023-09-11] MEDS: DULoxetine HCL 60 MG CAP PO SCH ×2 (08:15→21:13)
[2023-09-11] MEDS: HYDROmorphone INJ 0.5 MG/0.5 ML SYR IV PRN (08:26)
--- NOTE | 2023-09-11 18:03 | Hospitalist Progress Note ---
Date of Service September 11, 2023 Assessment & Plan (1) Palliative care by specialist: Plan: As per prior provider: Appreciate palliative care input and recommendation After long discussion with most of the family members and the patient it was decided that she should be going towards comfort care Family members and the patient were agreeable Currently on comfort measures Pain is controlled No significant distress on exam Poor oral intake Case management to help with discharge planning (2) Acute hypoxemic respiratory failure: Plan: Secondary to decompensated systolic heart failure Persistent pulmonary congestion noted during recent confinement for septic shock secondary to VRE UTI despite discharged on diuretic regimen Chest x-ray consistent with pulmonary edema Has been getting intravenous Lasix as per recommendation of the chemical processing laborer Minimal improvement since admission Palliative care consulted for further management plan-as above Requiring 2 L oxygen to maintain saturation Oxygen as needed Appreciate cardiology input As per prior provider Atypical chest pain Minimal elevation of troponins-secondary to a strain doubt any ACS Could be symptomatic anemia Acute on chronic anemia, hemoglobin drop from baseline Patient without overt bleeding complaints, FOBT done at the ER was negative Currently denies any chest pain Patient requesting updates for providers. Mr. Bennie Silva, contact #[phone]. CODE STATUS DNI DNR (3) Heart failure, systolic, with acute decompensation: Plan: As per prior provider History of nonischemic cardiomyopathy Echo was done on of this month showed EF of 35 to 40% with septal motion consistent with conductive abnormality, aortic valve calcification without significant stenosis and there is mitral annular calcification with minimal mitral regurgitation and tricuspid regurgitation as well Has been getting intravenous Lasix and other medication as per the cardiology Not showing any improvement since admission (4) Atrial fibrillation with rapid ventricular response: Plan: As per prior provider History of atrial fibrillation and came in with rapid ventricular response Complicating CHF Has been on beta-hayden and received intravenous beta-hayden to control the heart rate Will continue current medication as long as she can tolerate (5) Nonischemic cardiomyopathy: Plan: As above (6) Pulmonary embolism: Plan: As per prior provider Will discontinue Eliquis (7) COPD (chronic obstructive pulmonary disease): Plan: No acute exacerbation DVT prophylaxis Will discontinue Eliquis Plavix will be continued CODE STATUS DNR/DNI On comfort care Poor prognosis Admission and Anticipated Discharge Date Admission Date: September 04, 2023 Subjective Patient is seen and examined at bedside Poor historian Confused intermittently Admits to have some cough Poor oral intake Denies any chest pain, dyspnea Review of Systems Review of Systems: All systems reviewed & are unremarkable except as noted in Subjective Physical Exam Physical Exam: Physical Exam: Vitals signs as noted above General Appearance:Moderately built and nourished, no apparent distress, + chronic ill-appearing Head: normocephalic, Atraumatic Eyes: normal inspection, EOMI Neck: supple, Trachea midline Respiratory/Chest: Normal breath sounds, + basilar crackles, No accessory muscle use Cardiovascular: S1, S2, +murmur Abdomen/GI:Soft, Non tender, Bowel sounds present Extremities/Musculoskeletal:normal inspection, 1+ edema Neurologic/Psych:AA, grossly no focal neurological deficits, confused Skin: normal color, warm Results & Data Results & Data Vital Signs (Past 12 Hours) Vital Signs Pulse BP O2 Del Method O2 Flow Rate 09/11/23 08:26 Nasal Cannula 2 09/11/23 08:14 74 95/46 L
[2023-09-12] MEDS: HYDROmorphone INJ 0.5 MG/0.5 ML SYR IV PRN ×3 (02:22→21:15)
[2023-09-12] MEDS: PANTOprazole 40 MG TAB PO SCH (05:40)
[2023-09-12] MEDS: LEVOTHYROXINE SODIUM 50 MCG TABLET PO SCH (05:40)
[2023-09-12] MEDS: DULoxetine HCL 60 MG CAP PO SCH ×2 (09:27→21:13)
[2023-09-12] MEDS: CLOPIDOGREL BISULFATE 75 MG TAB PO SCH (09:27)
[2023-09-12] MEDS: DOCUSATE SODIUM 100 MG CAP PO SCH ×2 (09:27→21:13)
[2023-09-12] MEDS: FLUTICASONE/VILANTEROL 100/25MCG 14 PUFFS/INHALER INH SCH (09:27)
[2023-09-12] MEDS: SPIRONOLACTONE 12.5 MG TAB PO SCH (09:28)
[2023-09-12] MEDS: METOPROLOL SUCC 50MG EXT REL TAB PO SCH ×2 (09:28→21:14)
[2023-09-12] MEDS ORDERED: BENZOCAINE 20% (ORAJEL) 11.9 GM TUBE MT PRN (16:41)
--- NOTE | 2023-09-12 19:10 | Hospitalist Progress Note ---
Date of Service September 12, 2023 Assessment & Plan (1) Palliative care by specialist: Plan: As per prior provider: Appreciate palliative care input and recommendation After long discussion with most of the family members and the patient it was decided that she should be going towards comfort care Family members and the patient were agreeable Currently on comfort measures Pain is controlled No significant distress on exam Poor oral intake Case management to help with discharge planning (2) Acute hypoxemic respiratory failure: Plan: Secondary to decompensated systolic heart failure Persistent pulmonary congestion noted during recent confinement for septic shock secondary to VRE UTI despite discharged on diuretic regimen Chest x-ray consistent with pulmonary edema Has been getting intravenous Lasix as per recommendation of the packaging line operator Minimal improvement since admission Palliative care consulted for further management plan-as above Requiring 2 L oxygen to maintain saturation Oxygen as needed Appreciate cardiology input Waiting for placement Case management to help with discharge planning As per prior provider Atypical chest pain Minimal elevation of troponins-secondary to a strain doubt any ACS Could be symptomatic anemia Acute on chronic anemia, hemoglobin drop from baseline Patient without overt bleeding complaints, FOBT done at the ER was negative Currently denies any chest pain Patient requesting updates for providers. Mr. Bennie Silva, contact #[phone]. CODE STATUS DNI DNR (3) Heart failure, systolic, with acute decompensation: Plan: As per prior provider History of nonischemic cardiomyopathy Echo was done on of this month showed EF of 35 to 40% with septal motion consistent with conductive abnormality, aortic valve calcification without significant stenosis and there is mitral annular calcification with minimal mitral regurgitation and tricuspid regurgitation as well Has been getting intravenous Lasix and other medication as per the cardiology Not showing any improvement since admission (4) Atrial fibrillation with rapid ventricular response: Plan: As per prior provider History of atrial fibrillation and came in with rapid ventricular response Complicating CHF Has been on beta-hayden and received intravenous beta-hayden to control the heart rate Will continue current medication as long as she can tolerate (5) Nonischemic cardiomyopathy: Plan: As above (6) Pulmonary embolism: Plan: As per prior provider Will discontinue Eliquis (7) COPD (chronic obstructive pulmonary disease): Plan: No acute exacerbation DVT prophylaxis Will discontinue Eliquis Plavix will be continued CODE STATUS DNR/DNI On comfort care Poor prognosis Admission and Anticipated Discharge Date Admission Date: September 04, 2023 Subjective Patient is seen and examined at bedside Poor historian Confused intermittently per RN Reports right hand pain today Still has some cough Poor oral intake Denies any chest pain, dyspnea Waiting for placement Review of Systems Review of Systems: All systems reviewed & are unremarkable except as noted in Subjective Physical Exam Physical Exam: Physical Exam: Vitals signs as noted above General Appearance:Moderately built and nourished, no apparent distress, + chronic ill-appearing Head: normocephalic, Atraumatic Eyes: normal inspection, EOMI Neck: supple, Trachea midline Respiratory/Chest: Normal breath sounds, + basilar crackles, No accessory muscle use Cardiovascular: S1, S2, +murmur Abdomen/GI:Soft, Non tender, Bowel sounds present Extremities/Musculoskeletal:normal inspection, 1+ edema Neurologic/Psych:AA, grossly no focal neurological deficits, confused Skin: normal color, warm Results & Data Results & Data Vital Signs (Past 12 Hours) Vital Signs O2 Del Method O2 Flow Rate 09/12/23 07:25 Nasal Cannula 2
[2023-09-13] MEDS: HYDROmorphone INJ 0.5 MG/0.5 ML SYR IV PRN ×4 (01:27→21:19)
[2023-09-13] MEDS: PANTOprazole 40 MG TAB PO SCH (05:30)
[2023-09-13] MEDS: LEVOTHYROXINE SODIUM 50 MCG TABLET PO SCH (05:30)
[2023-09-13] MEDS: SPIRONOLACTONE 12.5 MG TAB PO SCH (09:00)
[2023-09-13] MEDS: DULoxetine HCL 60 MG CAP PO SCH ×2 (09:00→21:21)
[2023-09-13] MEDS: CLOPIDOGREL BISULFATE 75 MG TAB PO SCH (09:00)
[2023-09-13] MEDS: METOPROLOL SUCC 50MG EXT REL TAB PO SCH ×2 (09:01→21:21)
[2023-09-13] MEDS: FLUTICASONE/VILANTEROL 100/25MCG 14 PUFFS/INHALER INH SCH (09:02)
[2023-09-13] MEDS: DOCUSATE SODIUM 100 MG CAP PO SCH ×2 (09:06→21:21)
--- NOTE | 2023-09-13 18:42 | Hospitalist Progress Note ---
Date of Service September 13, 2023 Assessment & Plan (1) Palliative care by specialist: Plan: As per prior provider: Appreciate palliative care input and recommendation After long discussion with most of the family members and the patient it was decided that she should be going towards comfort care Family members and the patient were agreeable Currently on comfort measures Pain is controlled No significant distress on exam Poor oral intake Case management to help with discharge planning (2) Acute hypoxemic respiratory failure: Plan: Secondary to decompensated systolic heart failure Persistent pulmonary congestion noted during recent confinement for septic shock secondary to VRE UTI despite discharged on diuretic regimen Chest x-ray consistent with pulmonary edema Has been getting intravenous Lasix as per recommendation of the strap setter Minimal improvement since admission Palliative care consulted for further management plan-as above Requiring 2 L oxygen to maintain saturation Oxygen as needed Appreciate cardiology input Waiting for placement Case management to help with discharge planning Noted BP low, patient currently on comfort measures only As per prior provider Atypical chest pain Minimal elevation of troponins-secondary to a strain doubt any ACS Could be symptomatic anemia Acute on chronic anemia, hemoglobin drop from baseline Patient without overt bleeding complaints, FOBT done at the ER was negative Currently denies any chest pain Patient requesting updates for providers. Mr. Bennie Silva, contact #[phone]. CODE STATUS DNI DNR (3) Heart failure, systolic, with acute decompensation: Plan: As per prior provider History of nonischemic cardiomyopathy Echo was done on of this month showed EF of 35 to 40% with septal motion consistent with conductive abnormality, aortic valve calcification without significant stenosis and there is mitral annular calcification with minimal mitral regurgitation and tricuspid regurgitation as well Has been getting intravenous Lasix and other medication as per the cardiology Not showing any improvement since admission (4) Atrial fibrillation with rapid ventricular response: Plan: As per prior provider History of atrial fibrillation and came in with rapid ventricular response Complicating CHF Has been on beta-hayden and received intravenous beta-hayden to control the heart rate Will continue current medication as long as she can tolerate (5) Nonischemic cardiomyopathy: Plan: As above (6) Pulmonary embolism: Plan: As per prior provider Will discontinue Eliquis (7) COPD (chronic obstructive pulmonary disease): Plan: No acute exacerbation DVT prophylaxis Will discontinue Eliquis Plavix will be continued CODE STATUS DNR/DNI On comfort care Poor prognosis Admission and Anticipated Discharge Date Admission Date: September 04, 2023 Subjective Patient is seen and examined at bedside Poor historian No new complaints today Waiting for placement Right hand pain resolved Admits to having minimal dry cough Denies any chest pain, dyspnea Review of Systems Review of Systems: All systems reviewed & are unremarkable except as noted in Subjective Physical Exam Physical Exam: Physical Exam: Vitals signs as noted above General Appearance:Moderately built and nourished, no apparent distress, + chronic ill-appearing Head: normocephalic, Atraumatic Eyes: normal inspection, EOMI Neck: supple, Trachea midline Respiratory/Chest: Normal breath sounds, + basilar crackles, No accessory muscle use Cardiovascular: S1, S2, +murmur Abdomen/GI:Soft, Non tender, Bowel sounds present Extremities/Musculoskeletal:normal inspection, 1+ edema Neurologic/Psych:AA, grossly no focal neurological deficits, confused Skin: normal color, warm
[2023-09-14] MEDS: HYDROmorphone INJ 0.5 MG/0.5 ML SYR IV PRN ×4 (05:36→23:05)
[2023-09-14] MEDS: PANTOprazole 40 MG TAB PO SCH (05:36)
[2023-09-14] MEDS: LEVOTHYROXINE SODIUM 50 MCG TABLET PO SCH (05:36)
[2023-09-14] MEDS: CLOPIDOGREL BISULFATE 75 MG TAB PO SCH (09:13)
[2023-09-14] MEDS: FLUTICASONE/VILANTEROL 100/25MCG 14 PUFFS/INHALER INH SCH (09:14)
[2023-09-14] MEDS: DULoxetine HCL 60 MG CAP PO SCH ×2 (09:14→20:28)
[2023-09-14] MEDS: SPIRONOLACTONE 12.5 MG TAB PO SCH (09:16)
[2023-09-14] MEDS: METOPROLOL SUCC 50MG EXT REL TAB PO SCH ×2 (09:16→20:29)
[2023-09-14] MEDS: DOCUSATE SODIUM 100 MG CAP PO SCH ×3 (09:17→20:28)
--- NOTE | 2023-09-14 14:47 | Hospitalist Progress Note ---
Date of Service September 14, 2023 Assessment & Plan (1) Palliative care by specialist: Plan: As per prior provider: Appreciate palliative care input and recommendation After long discussion with most of the family members and the patient it was decided that she should be going towards comfort care Family members and the patient were agreeable Currently on comfort measures Pain is controlled No significant distress on exam Poor oral intake Case management to help with discharge planning (2) Acute hypoxemic respiratory failure: Plan: Secondary to decompensated systolic heart failure Persistent pulmonary congestion noted during recent confinement for septic shock secondary to VRE UTI despite discharged on diuretic regimen Chest x-ray consistent with pulmonary edema Has been getting intravenous Lasix as per recommendation of the metrology engineer Minimal improvement since admission Palliative care consulted for further management plan-as above Requiring 2 L oxygen to maintain saturation Oxygen as needed Appreciate cardiology input Case management to help with discharge planning Noted BP low, patient currently on comfort measures only Waiting for placement As per prior provider Atypical chest pain Minimal elevation of troponins-secondary to a strain doubt any ACS Could be symptomatic anemia Acute on chronic anemia, hemoglobin drop from baseline Patient without overt bleeding complaints, FOBT done at the ER was negative Currently denies any chest pain Patient requesting updates for providers. Mr. Bennie Silva, contact #[phone]. CODE STATUS DNI DNR (3) Heart failure, systolic, with acute decompensation: Plan: As per prior provider History of nonischemic cardiomyopathy Echo was done on of this month showed EF of 35 to 40% with septal motion consistent with conductive abnormality, aortic valve calcification without significant stenosis and there is mitral annular calcification with minimal mitral regurgitation and tricuspid regurgitation as well Has been getting intravenous Lasix and other medication as per the cardiology Not showing any improvement since admission (4) Atrial fibrillation with rapid ventricular response: Plan: As per prior provider History of atrial fibrillation and came in with rapid ventricular response Complicating CHF Has been on beta-hayden and received intravenous beta-hayden to control the heart rate Will continue current medication as long as she can tolerate (5) Nonischemic cardiomyopathy: Plan: As above (6) Pulmonary embolism: Plan: As per prior provider Will discontinue Eliquis (7) COPD (chronic obstructive pulmonary disease): Plan: No acute exacerbation DVT prophylaxis Will discontinue Eliquis Plavix will be continued CODE STATUS DNR/DNI On comfort care Poor prognosis Admission and Anticipated Discharge Date Admission Date: September 04, 2023 Subjective Patient is seen and examined at bedside Poor historian Clinically no significant change from yesterday Appetite remains poor Denies any chest pain, dyspnea Review of Systems Review of Systems: All systems reviewed & are unremarkable except as noted in Subjective Physical Exam Physical Exam: Physical Exam: Vitals signs as noted above General Appearance:Moderately built and nourished, no apparent distress, + chronic ill-appearing Head: normocephalic, Atraumatic Eyes: normal inspection, EOMI Neck: supple, Trachea midline Respiratory/Chest: Normal breath sounds, + basilar crackles, No accessory muscle use Cardiovascular: S1, S2, +murmur Abdomen/GI:Soft, Non tender, Bowel sounds present Extremities/Musculoskeletal:normal inspection, 1+ edema Neurologic/Psych:AA, grossly no focal neurological deficits, confused Skin: normal color, warm
[2023-09-15] MEDS: HYDROmorphone INJ 0.5 MG/0.5 ML SYR IV PRN ×4 (04:55→17:13)
[2023-09-15] MEDS: LEVOTHYROXINE SODIUM 50 MCG TABLET PO SCH (05:53)
[2023-09-15] MEDS: PANTOprazole 40 MG TAB PO SCH (05:53)
[2023-09-15] MEDS: FLUTICASONE/VILANTEROL 100/25MCG 14 PUFFS/INHALER INH SCH (07:57)
[2023-09-15] MEDS: CLOPIDOGREL BISULFATE 75 MG TAB PO SCH (07:58)
[2023-09-15] MEDS: SPIRONOLACTONE 12.5 MG TAB PO SCH (07:58)
[2023-09-15] MEDS: DULoxetine HCL 60 MG CAP PO SCH ×3 (07:58→20:01)
[2023-09-15] MEDS: METOPROLOL SUCC 50MG EXT REL TAB PO SCH ×2 (07:58→20:01)
[2023-09-15] MEDS: DOCUSATE SODIUM 100 MG CAP PO SCH ×2 (08:57→20:01)
--- NOTE | 2023-09-15 16:24 | Hospitalist Progress Note ---
Date of Service September 15, 2023 Assessment & Plan (1) Palliative care by specialist: Plan: As per prior provider: Appreciate palliative care input and recommendation After long discussion with most of the family members and the patient it was decided that she should be going towards comfort care Family members and the patient were agreeable Currently on comfort measures Pain is controlled No significant distress on exam Poor oral intake Case management to help with discharge planning Likely discharge tomorrow on hospice (2) Acute hypoxemic respiratory failure: Plan: Secondary to decompensated systolic heart failure Persistent pulmonary congestion noted during recent confinement for septic shock secondary to VRE UTI despite discharged on diuretic regimen Chest x-ray consistent with pulmonary edema Has been getting intravenous Lasix as per recommendation of the sap basis architect Minimal improvement since admission Palliative care consulted for further management plan-as above Requiring 2 L oxygen to maintain saturation Oxygen as needed Appreciate cardiology input Case management to help with discharge planning Noted BP low, patient currently on comfort measures only Waiting for placement As per prior provider Atypical chest pain Minimal elevation of troponins-secondary to a strain doubt any ACS Could be symptomatic anemia Acute on chronic anemia, hemoglobin drop from baseline Patient without overt bleeding complaints, FOBT done at the ER was negative Currently denies any chest pain Patient requesting updates for providers. Mr. Bennie Silva, contact #[phone]. CODE STATUS DNI DNR (3) Heart failure, systolic, with acute decompensation: Plan: As per prior provider History of nonischemic cardiomyopathy Echo was done on of this month showed EF of 35 to 40% with septal motion consistent with conductive abnormality, aortic valve calcification without significant stenosis and there is mitral annular calcification with minimal mitral regurgitation and tricuspid regurgitation as well Has been getting intravenous Lasix and other medication as per the cardiology Not showing any improvement since admission (4) Atrial fibrillation with rapid ventricular response: Plan: As per prior provider History of atrial fibrillation and came in with rapid ventricular response Complicating CHF Has been on beta-hayden and received intravenous beta-hayden to control the heart rate Will continue current medication as long as she can tolerate (5) Nonischemic cardiomyopathy: Plan: As above (6) Pulmonary embolism: Plan: As per prior provider Will discontinue Eliquis (7) COPD (chronic obstructive pulmonary disease): Plan: No acute exacerbation DVT prophylaxis Will discontinue Eliquis Plavix will be continued CODE STATUS DNR/DNI On comfort care Poor prognosis Admission and Anticipated Discharge Date Admission Date: September 04, 2023 Subjective Patient is seen and examined at bedside Poor historian No distress on exam Appetite remains poor Denies any chest pain, dyspnea Poor prognosis Review of Systems Review of Systems: Other Physical Exam Physical Exam: Physical Exam: Vitals signs as noted above General Appearance:Moderately built and nourished, no apparent distress, + chronic ill-appearing Head: normocephalic, Atraumatic Eyes: normal inspection, EOMI Neck: supple, Trachea midline Respiratory/Chest: Normal breath sounds, + basilar crackles, No accessory muscle use Cardiovascular: S1, S2, +murmur Abdomen/GI:Soft, Non tender, Bowel sounds present Extremities/Musculoskeletal:normal inspection, 1+ edema Neurologic/Psych:AA, grossly no focal neurological deficits, confused Skin: normal color, warm Results & Data Results & Data Vital Signs (Past 12 Hours) Vital Signs O2 Del Method O2 Flow Rate 09/15/23 07:54 Nasal Cannula 2
[2023-09-16] MEDS: PANTOprazole 40 MG TAB PO SCH (05:29)
[2023-09-16] MEDS: LEVOTHYROXINE SODIUM 50 MCG TABLET PO SCH (05:30)
[2023-09-16] MEDS: HYDROmorphone INJ 0.5 MG/0.5 ML SYR IV PRN (06:10)
--- NOTE | 2023-09-16 09:12 | Hospitalist Progress Note ---
Date of Service September 16, 2023 Assessment & Plan (1) Palliative care by specialist: Plan: As per prior provider: Appreciate palliative care input and recommendation After long discussion with most of the family members and the patient it was decided that she should be going towards comfort care Family members and the patient were agreeable Currently on comfort measures Pain is controlled No significant distress on exam Poor oral intake Case management to help with discharge planning Plan to be discharged home today with hospice in place (2) Acute hypoxemic respiratory failure: Plan: Secondary to decompensated systolic heart failure Persistent pulmonary congestion noted during recent confinement for septic shock secondary to VRE UTI despite discharged on diuretic regimen Chest x-ray consistent with pulmonary edema Has been getting intravenous Lasix as per recommendation of the driver material handler Minimal improvement since admission Palliative care consulted for further management plan-as above Requiring 2 L oxygen to maintain saturation Oxygen as needed Appreciate cardiology input Case management to help with discharge planning Noted BP low, patient currently on comfort measures only Waiting for placement As per prior provider Atypical chest pain Minimal elevation of troponins-secondary to a strain doubt any ACS Could be symptomatic anemia Acute on chronic anemia, hemoglobin drop from baseline Patient without overt bleeding complaints, FOBT done at the ER was negative Currently denies any chest pain Patient requesting updates for providers. Mr. Bennie Silva, contact #[phone]. CODE STATUS DNI DNR (3) Heart failure, systolic, with acute decompensation: Plan: As per prior provider History of nonischemic cardiomyopathy Echo was done on of this month showed EF of 35 to 40% with septal motion consistent with conductive abnormality, aortic valve calcification without signi ficant stenosis and there is mitral annular calcification with minimal mitral regurgitation and tricuspid regurgitation as well Has been getting intravenous Lasix and other medication as per the cardiology Not showing any improvement since admission (4) Atrial fibrillation with rapid ventricular response: Plan: As per prior provider History of atrial fibrillation and came in with rapid ventricular response Complicating CHF Has been on beta-hayden and received intravenous beta-hayden to control the heart rate Will continue current medication as long as she can tolerate (5) Nonischemic cardiomyopathy: Plan: As above (6) Pulmonary embolism: Plan: As per prior provider Will discontinue Eliquis (7) COPD (chronic obstructive pulmonary disease): Plan: No acute exacerbation DVT prophylaxis Will discontinue Eliquis Plavix will be continued CODE STATUS DNR/DNI On comfort care Poor prognosis Admission and Anticipated Discharge Date Admission Date: September 04, 2023 Subjective Patient is seen and examined at bedside More alert, awake today Pleasantly confused No distress on exam Denies any chest pain, nausea, vomiting Poor historian Plan to be discharged home today Review of Systems Review of Systems: All systems reviewed & are unremarkable except as noted in Subjective Physical Exam Physical Exam: Physical Exam: Vitals signs as noted above General Appearance:Moderately built and nourished, no apparent distress, + chronic ill-appearing Head: normocephalic, Atraumatic Eyes: normal inspection, EOMI Neck: supple, Trachea midline Respiratory/Chest: Normal breath sounds, + basilar crackles, No accessory muscle use Cardiovascular: S1, S2, +murmur, +Tachycardia Abdomen/GI:Soft, Non tender, Bowel sounds present Extremities/Musculoskeletal:normal inspection, 1+ edema Neurologic/Psych:AA, grossly no focal neurological deficits, confused Skin: normal color, warm
[2023-09-16] MEDS: DULoxetine HCL 60 MG CAP PO SCH (09:15)
[2023-09-16] MEDS: CLOPIDOGREL BISULFATE 75 MG TAB PO SCH (09:15)
[2023-09-16] MEDS: METOPROLOL SUCC 50MG EXT REL TAB PO SCH (09:16)
[2023-09-16] MEDS: SPIRONOLACTONE 12.5 MG TAB PO SCH (09:16)
[2023-09-16] MEDS: FLUTICASONE/VILANTEROL 100/25MCG 14 PUFFS/INHALER INH SCH (09:17)
[2023-09-16] MEDS: DOCUSATE SODIUM 100 MG CAP PO SCH (09:20)
--- NOTE | 2023-09-16 11:55 | Discharge Summary ---
Date of Service September 16, 2023 Admission HPI Per Admitting Provider History obtained from patient, family, and records. Limited history from patient secondary to disorientation. Medical history significant for chronic systolic heart failure (EF 35 to 40%, TTE 2022), CAD/CVA as per records, chronic LBBB, PAF/PE/DVT currently on Eliquis, prothrombin gene mutation as per records, hypertension, hyperlipidemia, COPD/asthma as per records, nocturnal hypoxia/WAYLON on home O2 at night, hyp othyroidism, chronic anemia (baseline hemoglobin of 8-9), cognitive dysfunction per records, fibromyalgia as per records, history of VRE UTI ongoing Daptomycin Rx, history of MRSA. Recent confinement August 20 to 2023 for septic shock secondary to VRE UTI and influenza. Patient discharged to [facility] facility on IV daptomycin course to complete 2 weeks treatment. Pulmonary congestion noted during confinement. Patient discharged on Lasix 3 times weekly. Patient did not look well to family yesterday at rehab facility. She looked pale and sick as per family. Pleuritic central chest pain of undetermined duration as per patient account. Worsening shortness of breath noted. Patient denies headache, abdominal/back pain/bleeding complaints. Patient more confused than usual as per family. EMS administered 2 sublingual nitroglycerin tablets followed by nitro infusion. Chest pain unresponsive to intervention as per patient. BiPAP initiated, Lasix administered at the ER. 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 Principal Diagnosis Acute hypoxemic respiratory failure Acute systolic heart failure Nonischemic cardiomyopathy Paroxysmal atrial fibrillation H/O PE, DVT, CVA, COPD, Asthma, CKD III, hypothyroidism Discharge Data Allergies Allergy/AdvReac Type Severity Reaction Status Date / Time aspirin Allergy Intermediate ITCHING Verified 08/20/23 11:42 Sulfa (Sulfonamide Allergy Unknown PER Verified 08/20/23 11:42 Antibiotics) GMG--HAPPENED IN HOSPITAL Consultations 09/04/23 04:13 ED Decision to Admit Stat 09/04/23 07:32 Consult Cardiology Routine 09/04/23 15:04 Consult Palliative Care Routine Ordered Studies Laboratory Results WBC 10.18 K/ul (4.8-10.8) 09/05/23 05:44 RBC 2.01 M/uL (4.20-5.40) L 09/05/23 05:44 Hgb 7.0 g/dl (12.0-16.0) L 09/05/23 05:44 Hct 21.1 % (37.0-47.0) L 09/05/23 05:44 MCV 105.0 fL (80.0-100.0) H 09/05/23 05:44 MCH 34.8 pg (25.0-34.0) H 09/05/23 05:44 MCHC 33.2 g/dL (32.0-36.0) 09/05/23 05:44 RDW Std Deviation 66.5 fL (36.4-46.3) H 09/05/23 05:44 RDW Coeff of Vijay 17.3 % (11.5-14.5) H 09/05/23 05:44 Plt Count 257 K/uL (130-400) 09/05/23 05:44 MPV 10.9 fL (9.4-12.4) 09/05/23 05:44 Immature Gran % (Auto) 0.6 % 09/05/23 05:44 Neut % (Auto) 80.3 % 09/05/23 05:44 Lymph % (Auto) 10.6 % 09/05/23 05:44 [place] % (Auto) 6.5 % 09/05/23 05:44 Eos % (Auto) 1.4 % 09/05/23 05:44 Baso % (Auto) 0.6 % 09/05/23 05:44 Neut # (Auto) 8.18 K/uL (1.40-6.50) H 09/05/23 05:44 Lymph # (Auto) 1.08 K/uL (1.20-3.40) L 09/05/23 05:44 [place] # (Auto) 0.66 K/uL (0.11-0.59) H 09/05/23 05:44 Eos # (Auto) 0.14 K/uL (0.00-0.50) 09/05/23 05:44 Baso # (Auto) 0.06 K/uL (0.00-0.20) 09/05/23 05:44 Immature Gran # (Auto) 0.06 K/uL (0.01-0.20) 09/05/23 05:44 RBC Morphology Unremarkable 09/05/23 05:44 Polychromasia 1+ 09/04/23 02:50 ESR 58 mm/hr (0-30) H 09/04/23 05:38 ABG pH 7.47 (7.35-7.45) H 09/04/23 05:38 ABG pCO2 33 mmHg (35-46) L 09/04/23 05:38 ABG pO2 66 mmHg (80-95) L 09/04/23 05:38 ABG HCO3 24 mmol/L (19-24) 09/04/23 05:38 ABG O2 Saturation 95.4 % (90-95) H 09/04/23 05:38 ABG Base Excess 0.9 mEq/L (-9-1.8) 09/04/23 05:38 Eliecer Test Pos (Pos) 09/04/23 05:38 Oxygen Given 40% FI02 09/04/23 05:38 Sodium 139 mmol/L (136-145) 09/05/23 05:44 Potassium 3.8 mmol/L (3.5-5.1) 09/05/23 05:44 Chloride 108 mmol/L (98-107) H 09/05/23 05:44 Carbon Dioxide 25 mmol/L (21-32) 09/05/23 05:44 Anion Gap 6 (3-11) 09/05/23 05:44 BUN 24 mg/dl (6-23) H 09/05/23 05:44 Creatinine 0.87 mg/dl (0.6-1.2) 09/05/23 05:44 Est Cr Clr Drug Dosing 51.3 ml/min 09/05/23 05:44 Est GFR ( Amer) 72.4 ml/min 09/05/23 05:44 Est GFR (Non-Af Amer) 62.5 ml/min 09/05/23 05:44 BUN/Creatinine Ratio 27.6 (10-20) H 09/05/23 05:44 Glucose 75 mg/dl (70-99(Fasting)) 09/05/23 05:44 POC Glucose 77 mg/dl (70-99) 09/05/23 12:11 Calcium 8.0 mg/dl (8.6-10.3) L 09/05/23 05:44 Phosphorus 3.3 mg/dl (2.5-4.9) 09/05/23 05:44 Magnesium 1.8 mg/dl (1.7-2.4) 09/05/23 05:44 Total Bilirubin 0.8 mg/dl (0.2-1.0) 09/04/23 02:50 AST 25 U/L (13-39) 09/04/23 02:50 ALT 8 U/L (7-52) 09/04/23 02:50 Alkaline Phosphatase 68 U/L (34-104) 09/04/23 02:50 Troponin I High Sens 417.2 pg/ml (0-14) H* D 09/04/23 09:59 C-Reactive Protein 9.33 mg/dl (0-0.5) H 09/04/23 05:38 B-Natriuretic Peptide 4139 pg/ml (0-100) H 09/04/23 02:50 Total Protein 6.5 gm/dl (6.0-8.3) 09/04/23 02:50 Albumin 2.6 gm/dl (3.4-5.0) L 09/04/23 02:50 Globulin 3.9 gm/dl (2.5-4.0) 09/04/23 02:50 Albumin/Globulin Ratio 0.7 (0.9-2) L 09/04/23 02:50 Procalcitonin 0.32 ng/ml (0-0.5) 09/04/23 02:50 Urine Color Dark Yellow 09/04/23 03:00 Urine Appearance Cloudy (Clear) A 09/04/23 03:00 Urine pH 8.0 (4.5-7.5) H 09/04/23 03:00 Ur Specific [place] 1.019 (1.000-1.030) 09/04/23 03:00 Urine Protein 2+ (Negative) H 09/04/23 03:00 Urine Glucose (UA) Negative (Negative) 09/04/23 03:00 Urine Ketones Negative (Negative) 09/04/23 03:00 Urine Blood 2+ (Negative) H 09/04/23 03:00 Urine Nitrite Negative (Negative) 09/04/23 03:00 Urine Bilirubin Negative (Negative) 09/04/23 03:00 Urine Urobilinogen Negative (Negative) 09/04/23 03:00 Ur Leukocyte Esterase 3+ (Negative) H 09/04/23 03:00 Urine WBC (Auto) >30 /hpf (0-5) H 09/04/23 03:00 Urine RBC (Auto) >30 /hpf (0-4) H 09/04/23 03:00 U Hyaline Cast (Auto) 0 /lpf (0-5) 09/04/23 03:00 U Epithel Cells (Auto) 10-20 /lpf (0-5) H 09/04/23 03:00 Urine Bacteria (Auto) Negative (Negative) 09/04/23 03:00 Urine Yeast Budding w/ Hyphae (None Prsent) A 09/04/23 03:00 Nasal Screen MRSA (PCR) Negative (Negative) 09/04/23 08:00 Adenovirus (PCR) Not Detected (NotDetected) 09/04/23 Unknown B. pertussis DNA (PCR) Not Detected (NotDetected) 09/04/23 Unknown B.parapertussis DNA PCR Not Detected (NotDetected) 09/04/23 Unknown C. pneumoniae DNA (PCR) Not Detected (NotDetected) 09/04/23 Unknown Coronavirus OC43 (PCR) Not Detected (NotDetected) 09/04/23 Unknown Coronavirus HKU1 (PCR) Not Detected (NotDetected) 09/04/23 Unknown Coronavirus 229E (PCR) Not Detected (NotDetected) 09/04/23 Unknown SARS-CoV-2 (PCR) Not Detected (NotDetected) 09/04/23 Unknown Coronavirus NL63 (PCR) Not Detected (NotDetected) 09/04/23 Unknown Human Metapneumovir PCR Not Detected (NotDetected) 09/04/23 Unknown Influenza Type A (PCR) Equivocal (NotDetected) A 09/04/23 Unknown Influenza Type B (PCR) Not Detected (NotDetected) 09/04/23 Unknown M. pneumoniae (PCR) Not Detected (NotDetected) 09/04/23 Unknown Parainfluenza 1 (PCR) Not Detected (NotDetected) 09/04/23 Unknown Parainfluenza 2 (PCR) Not Detected (NotDetected) 09/04/23 Unknown Parainfluenza 3 (PCR) Not Detected (NotDetected) 09/04/23 Unknown Parainfluenza 4 (PCR) Not Detected (NotDetected) 09/04/23 Unknown RSV (PCR) Not Detected (NotDetected) 09/04/23 Unknown Entero/Rhino (PCR) Not Detected (NotDetected) 09/04/23 Unknown Blood Type A Positive 09/04/23 05:38 Antibody Screen NEGATIVE 09/04/23 05:38 Impressions Chest X-Ray 09/04/23 02:56 XR chest 1V portable HISTORY: Dyspnea COMPARISON: Chest 08/28/2023. FINDINGS: There are low lung volumes with persistent elevation of the right hemidiaphragm. Perihilar interstitial/vascular thickening consistent with pulmonary edema. This is similar to the prior study. Bilateral pleural effusions and bibasilar densities persist. The heart remains mildly enlarged. A left PICC terminates in the SVC. Advanced degenerative changes again noted within the shoulders. IMPRESSION: 1. No change in the mild interstitial pulmonary edema and bilateral pleural effusions. 2. Bibasilar densities also persist. This may represent atelectasis or a pneumonia. ACT 112: Negative or not required by law. Electronically signed by: Clyde Jensen M.D. 09/04/2023 7:26 AM Hospital Course (1) Palliative care by specialist: As per prior provider: Appreciate palliative care input and recommendation After long discussion with most of the family members and the patient it was decided that she should be going towards comfort care Family members and the patient were agreeable Currently on comfort measures Pain is controlled No significant distress on exam Poor oral intake Case management to help with discharge planning Plan to be discharged home today with hospice in place (2) Acute hypoxemic respiratory failure: Secondary to decompensated systolic heart failure Persistent pulmonary congestion noted during recent confinement for septic shock secondary to VRE UTI despite discharged on diuretic regimen Chest x-ray consistent with pulmonary edema Has been getting intravenous Lasix as per recommendation of the fill plant operator Minimal improvement since admission Palliative care consulted for further management plan-as above Requiring 2 L oxygen to maintain saturation Oxygen as needed Appreciate cardiology input Case management to help with discharge planning Noted BP low, patient currently on comfort measures only As per prior provider Atypical chest pain Minimal elevation of troponins-secondary to a strain doubt any ACS Could be symptomatic anemia Acute on chronic anemia, hemoglobin drop from baseline Patient without overt bleeding complaints, FOBT done at the ER was negative Currently denies any chest pain Patient requesting updates for providers. Mr. Bennie Silva, contact #[phone]. CODE STATUS DNI DNR (3) Heart failure, systolic, with acute decompensation: As per prior provider History of nonischemic cardiomyopathy Echo was done on of this month showed EF of 35 to 40% with septal motion consistent with conductive abnormality, aortic valve calcification without significant stenosis and there is mitral annular calcification with minimal mitral regurgitation and tricuspid regurgitation as well Has been getting intravenous Lasix and other medication as per the cardiology Not showing any improvement since admission (4) Atrial fibrillation with rapid ventricular response: As per prior provider History of atrial fibrillation and came in with rapid ventricular response Complicating CHF Has been on beta-hayden and received intravenous beta-hayden to control the heart rate Will continue current medication as long as she can tolerate (5) Nonischemic cardiomyopathy: As above (6) Pulmonary embolism: As per prior provider Will discontinue Eliquis (7) COPD (chronic obstructive pulmonary disease): No acute exacerbation DVT prophylaxis Will discontinue Eliquis Plavix will be continued CODE STATUS DNR/DNI On comfort care Poor prognosis Total Time Total Time Spent Total Time Spent (In Minutes): 45 minutes Discharge Plan Discharge Items Patient Disposition: Hospice - Home Reason For Visit: CHF Discharge Diagnosis: Acute hypoxemic respiratory failure Acute systolic heart failure Nonischemic cardiomyopathy Paroxysmal atrial fibrillation H/O PE, DVT, CVA, COPD, Asthma, CKD III, hypothyroidism Activity: Per Instructions section Non-emergency contact: Primary Care Provider Call non-emergency contact if: you have any medication questions and your symptoms worsen Follow-up/Referrals: Giorgio Salas, [Primary Care Provider] - Diet: Regular Addtl Attending Provider Instructions: Follow-up with your primary care physician/hospice physician for further evaluation and management. Pending Studies at Discharge: No Stand-Alone Forms: My uTaP Medications and DC Order Prescriptions: New spironolactone 25 mg Tablet 12.5 mg PO DAILY Qty: 30 0RF HurriCaine 20 % Gel 1 applic MT Q4H PRN (Reason: mouth irritation) Qty: 28.4 0RF hydromorphone [Dilaudid] 2 mg tablet 2 mg PO Q6H PRN (Reason: pain) Qty: 20 0RF Continued acetaminophen [Tylenol] 325 mg Tablet 650 mg PO Q4 PRN (Reason: Pain) atorvastatin 20 mg Tablet 20 mg PO DAILY polyethylene glycol 3350 [Miralax] 17 gram Powder In Packet 17 g PO DAILY PRN (Reason: Constipation) metoprolol succinate 50 mg tablet extended release 24 hr 50 mg PO BID ondansetron HCl 4 mg Tablet 4 mg PO Q4 PRN (Reason: Nausea) sennosides-docusate sodium [Senokot-S] 8.6-50 mg Tablet 1 tab-cap PO .DAILY@LUNCH PRN (Reason: Constipation) miconazole nitrate 2 % Powder 1 applic TOPICAL BID clopidogrel 75 mg tablet 75 mg PO DAILY ascorbic acid (vitamin C) [Vitamin C] 500 mg Tablet 250 mg PO DAILY levothyroxine 50 mcg tablet 50 mcg PO DAILY pantoprazole 40 mg tablet,delayed release (DR/EC) 40 mg PO DAILYBB ferrous sulfate 325 mg (65 mg iron) Tablet 325 mg PO DAILY docusate sodium 100 mg Capsule 100 mg PO BID montelukast 10 mg Tablet 10 mg PO HS albuterol sulfate 90 mcg/actuation Hfa Aerosol Inhaler 2 puff INHALATION Q4 PRN (Reason: Shortness Of Breath Or Wheezing) Rx Instructions: CFC free cholecalciferol (vitamin D3) 25 mcg (1,000 unit) Tablet 25 mcg PO DAILY fluticasone furoate-vilanterol [Breo Ellipta] 100-25 mcg/dose Blister With Device 1 inh INHALATION DAILY magnesium oxide 400 mg magnesium Tablet 400 mg PO BIDM duloxetine 30 mg Capsule, Delayed Rel Sprinkle 60 mg PO BID [place] 50 mg tablet 50 mg PO DAILY PRN (Reason: Migraine Headache) ipratropium-albuterol 0.5 mg-3 mg(2.5 mg base)/3 mL Solution For Nebulization 3 ml INHALATION QID PRN (Reason: shortness of breath or wheezing) Qty: 90 0RF furosemide 20 mg tablet 20 mg PO UD Qty: 30 0RF Rx Instructions: 3x a week: mon/wed/fri and as needed for pulmonary congestion and leg edema Eliquis 5 mg tablet 5 mg PO BID Discontinued tramadol 50 mg Tablet 50 mg PO Q12 PRN (Reason: Pain) Rx Instructions: Pain 4-10 daptomycin [Cubicin] 500 mg Recon Soln 600 mg IV DAILY Rx Instructions: 1.2 vial = 600 mg. administer over 30 mins Discharge Orders: Discharge Order (Routine); Ordered 09/16/23 Ordered By: Keith Snider Admission Data Admit Date/Time: 09/04/23 05:09 Attending Provider: Keith Snider Admit Provider: Len Orellana Primary Care Provider: Giorgio Salas Other Providers: [facility]; Len Orellana; Nidhi Smith
== END 2023-09-16 14:08 | disposition hospice, home (50) | DRG 291 ==
LOC: ED 02:10 → 2E 05:09 → SUATTDRO 05:09 → 2E 06:42 → 3W 09-05 16:49